=== PATIENT | female | born 1955 | race Caucasian/White ===

== ENCOUNTER 2020-03-07 15:42 | Emergency (ER) | payer OTHER, SELFPAY ==
--- NOTE | ~2020-03-07 | XR_ITS ---
EXAMINATION: XR ribs RT 2V EXAM DATE: 03/07/2020 16:47 INDICATION: Initial encounter following injury, with pain of the right ribs. TECHNIQUE: Frontal projection of the upper right ribs, frontal projection of the lower right ribs, ob lique projection of the right ribs, without chest x-ray(s) for interpretation. There is no prior theo dy for comparison. FINDINGS: There are no displaced acute right rib fractures identified. There is no soft tissue abno rmality seen. Consider educating patient that even if there is a radiographically occult nondisplac ed rib fracture, there is no specific treatment other than to refrain from activity that prevents hea ling. IMPRESSION: No displaced right rib fractures. Reviewed, dictated and finalized at location A.
--- NOTE | ~2020-03-07 | XR_ITS ---
CORRECTED REPORT PROCEDURE DESCRIPTION CORRECTED. SEE BOLD ITALIC TEXT BELOW. INDICATION CORRECTED TO RIGHT RIB PAIN. [XR ribs LT w PA/LAT CXR ] INDICATION: Right rib pain TECHNIQUE: Frontal projection of the upper left ribs, frontal projection of the lower left ribs, oblique projection of all the left ribs, frontal inspiratory chest x-ray for interpretation. FINDINGS: There are no displaced rib fractures identified. There are no soft tissue abnormality seen. The lungs are clear. IMPRESSION: 1:No displaced rib fractures. Reviewed, dictated and finalized at location A. MTDD
[2020-03-07 15:55] VITALS: BP 107/70; PULSE 64; RESP 18; TEMP 36.8; O2SAT 100
--- NOTE | 2020-03-07 16:02 | ED.GENADULT ---
HPI - General Adult General Chief complaint: Fall Stated complaint: fall Time Seen by Provider: 03/07/20 16:02 Source: RN notes reviewed Mode of arrival: ambulatory Limitations: no limitations History of Present Illness HPI narrative: This is a 64 years old female presented office for evaluation of right side rib pain. She fell 5 days ago while playing with her grand daughter onto the hardwood floor. She landed on her right knee and side of her chest. She states her pain good the day after the injury; however it came back yesterday and worse today. Denies head injury. Her right knee injury felt normal right now. She reports that her ribs pain is worse with deep breath or touching or moving her right arm. She has essential tremors in her upper extremities without history of Parkinson. No treatment prior to arrival because she was told by her doctor; not to take any medication [id number] because she is currently on a lot of medications at home. Related Data Home Medications Medication Instructions Recorded Confirmed atorvastatin [Lipitor] 20 mg PO DAILY 03/07/20 03/07/20 bismuth subsalicylate 524 mg PO QID 03/07/20 03/07/20 [Anti-Diarrheal] calcium polycarbophil [Fiber 1,250 mg PO BID 03/07/20 03/07/20 Laxative (ca polycarbo)] cetirizine-pseudoephedrine 1 tablet PO DAILY 03/07/20 03/07/20 fluticasone propionate [Flonase 1 spray INTRANASAL BID 03/07/20 03/07/20 Allergy Relief] gabapentin [Neurontin] 100 mg PO TID 03/07/20 03/07/20 lamotrigine [Lamictal] 150 mg PO BID 03/07/20 03/07/20 lithium carbonate [Lithobid] 300 mg PO DAILY 03/07/20 03/07/20 metformin [Glucophage XR] 500 mg PO DAILY 03/07/20 03/07/20 xfghoayjjeui-snv-qqcx-FA-vit K 1 tablet PO DAILY 03/07/20 03/07/20 [Adults Multivitamin] primidone 50 mg PO BID 03/07/20 03/07/20 propranolol [Inderal LA] 120 mg PO DAILY 03/07/20 03/07/20 sertraline [Zoloft] 100 mg PO DAILY 03/07/20 03/07/20 sumatriptan succinate [Imitrex] 100 mg PO ONCE 03/07/20 03/07/20 thiamine HCl (vitamin B1) 100 mg PO DAILY 03/07/20 03/07/20 trazodone 50 mg PO HS 03/07/20 03/07/20 Allergies Allergy/AdvReac Type Severity Reaction Status Date / Time Penicillins Allergy Unknown Unknown Verified 03/07/20 16:06 Sulfa (Sulfonamide Allergy Unknown Rash Verified 03/07/20 16:06 Antibiotics) Review of Systems Review of Systems: Narrative: CONSTITUTIONAL: Denies feeling ill ENT: Denies congestion CARDIOVASCULAR: Denies chest pain at rest RESPIRATORY: Reports pain with deep breathe. GASTROINTESTINAL: Denies abdominal pain, nausea, vomiting SKIN: Denies skin tears/bruising MUSCULOSKELETAL: Reports right side chest pain with deep breathing or moving her right arm NEUROLOGIC: Denies head injury PMFSH Past Medical History Medical History (Updated 03/07/20 @ 16:16 by FREDI Rey) Bipolar depression History of alcohol abuse HLD (hyperlipidemia) Tremor hands Social History Social History Gender identity (if verbalized by the patient): Female Comments At time of signature, I agree with nursing past medical, surgical, social and family history. There is no relevant family history pertinent to the presenting complaint. Exam Narrative: Exam Narrative: GENERAL: This is a well-nourished, well-developed patient, in no apparent distress. CARDIOVASCULAR: Regular rate and rhythm without murmurs, gallops, or rubs. Right lateral mid axillary, nipple region noted tenderness with palpation without obvious bruising. Skin intact. RESPIRATORY: Clear to auscultation. Breath sounds equal bilaterally. No wheezes, rales, or rhonchi. SKIN: warm, intact with no suspicious lesions or rash, good texture and turgor. NEURO: awake, alert, and oriented to person, place and time. There were no obvious focal neurologic abnormalities. Steady gait EXTREMITIES: Upper and lower extremities with normal ROM. Tremors noted in upper extremities even at
== END 2020-03-07 17:05 | disposition home or self-care (01) ==
PROVIDERS: Emergency Provider Nurse Practitioner; PCP Internal Medicine Infectious Disease
DX: S29.9XXA Unspecified injury of thorax, initial encounter (principal); F31.9 Bipolar disorder, unspecified; E78.5 Hyperlipidemia, unspecified; Z79.84 Long term (current) use of oral hypoglycemic drugs; W19.XXXA Unspecified fall, initial encounter
CPT/HCPCS: 71046; 71100; 99213; G0463

== ENCOUNTER 2020-08-03 13:04 | Emergency (ER) | payer MEDICAID, SELFPAY ==
--- NOTE | 2020-08-03 13:26 | ED.GENADULT ---
HPI - General Adult General Chief complaint: Upper Respiratory Infection Stated complaint: Cough,Congestion Time Seen by Provider: 08/03/20 13:26 Source: patient and RN notes reviewed Mode of arrival: ambulatory Limitations: no limitations History of Present Illness HPI narrative: 65-year-old female presents with complaints of upper respiratory infection, some facial congestion, facial pressure, head congestion, and intermittent headache (not the worst of her life) for the past 5 days. Sheri says symptoms has increased over the past 2-3 days with dry cough. Ibuprofen, NyQuil, and Zyrtec-D with little relief. No facial swelling. Dry cough without chest congestion. Nasal congestion and rhinorrhea. No high fevers, drooling, neck or throat swelling. No voice change. Denies chills, dyspnea, difficulty swallowing, jaw pain, dental pain, foreign body sensation, and rash. Tolerating liquids well. No chest pain or shortness of breath. The patient reports she have not been diagnosed with COVID-19. The patient reports she is not waiting for the results of a COVID-19 lab test. The patient reports she do not have fever, weakness, or fatigue. The patient reports she do not have a worsening cough or shortness of breath. The patient reports she do not have any sore throat, loss of taste, nausea, vomiting, abdominal pain, and diarrhea. Denies recent traveling. Denies concerns for COVID-19 or exposures been home with limited outdoor exposure except for essential household needs and return home. At this time, patient is not suspected of having COVID-19. Some parts of this dictation were generated by voice recognition software and may contain typographical and/or grammatical inaccuracies. Related Data Home Medications Medication Instructions Recorded Confirmed atorvastatin [Lipitor] 20 mg PO DAILY 03/07/20 08/03/20 bismuth subsalicylate 524 mg PO QID 03/07/20 08/03/20 [Anti-Diarrheal] calcium polycarbophil [Fiber 1,250 mg PO BID 03/07/20 08/03/20 Laxative (ca polycarbo)] fluticasone propionate [Flonase 1 spray INTRANASAL BID 03/07/20 03/07/20 Allergy Relief] gabapentin [Neurontin] 100 mg PO TID 03/07/20 03/07/20 lamotrigine [Lamictal] 150 mg PO BID 03/07/20 08/03/20 lithium carbonate [Lithobid] 300 mg PO DAILY 03/07/20 03/07/20 bvzgtukptnzs-xly-glfo-FA-vit K 1 tablet PO DAILY 03/07/20 03/07/20 [Adults Multivitamin] primidone 50 mg PO BID 03/07/20 03/07/20 propranolol [Inderal LA] 120 mg PO DAILY 03/07/20 03/07/20 sertraline [Zoloft] 100 mg PO DAILY 03/07/20 03/07/20 sumatriptan succinate [Imitrex] 100 mg PO ONCE 03/07/20 03/07/20 thiamine HCl (vitamin B1) 100 mg PO DAILY 03/07/20 03/07/20 trazodone 50 mg PO HS 03/07/20 03/07/20 Allergies Allergy/AdvReac Type Severity Reaction Status Date / Time Penicillins Allergy Unknown Unknown Verified 08/03/20 13:22 Sulfa (Sulfonamide Allergy Unknown Rash Verified 08/03/20 13:22 Antibiotics) Review of Systems Review of Systems: Narrative: CONSTITUTIONAL: Denies fever, chills, sweats. EYES: Denies visual changes, redness, discharge. ENT: Complains of rhinorrhea, congestion, facial congestion and pressure. Denies otalgia, sore throat. CARDIOVASCULAR: Denies chest pain, palpitations, edema. RESPIRATORY: Denies dyspnea, wheezing. Complains of dry cough. GASTROINTESTINAL: Denies abdominal pain, nausea, vomiting, diarrhea. GENITOURINARY: Denies dysuria, hematuria, abnormal discharge SKIN: Denies rash or itching. MUSCULOSKELETAL: Denies acute back pain, joint pain, or myalgia. NEUROLOGIC: Denies numbness, or focal weakness. Complains of intermittent PALMA. PSYCHIATRIC: Denies anxiety or depression. All other systems reviewed & are unremarkable except as noted in HPI and below. [facility] Past Medical History Medical History (Updated 08/03/20 @ 13:50 by FREDI Degroot) Anxiety Bipolar depression Bipolar disorder Depression Diabetes History of alcohol abuse Sober for 9 ye
[2020-08-03 13:31] VITALS: BP 122/86; PULSE 89; RESP 21; TEMP 36.6; O2SAT 98
== END 2020-08-03 13:47 | disposition home or self-care (01) ==
PROVIDERS: Emergency Provider Nurse Practitioner Family; PCP Internal Medicine Infectious Disease
DX: J01.90 Acute sinusitis, unspecified (principal); Z20.828 Contact with and (suspected) exposure to other viral communicable diseases; Z87.891 Personal history of nicotine dependence; E11.9 Type 2 diabetes mellitus without complications; E78.5 Hyperlipidemia, unspecified; F41.9 Anxiety disorder, unspecified; F31.9 Bipolar disorder, unspecified
CPT/HCPCS: 99213; G0463

== ENCOUNTER 2020-08-17 06:55 | Outpatient (NON) | payer MEDICAID, SELFPAY ==
[2020-08-18 01:31] LABS: SARS-CoV-2 RNA PCR Negative
== END 2020-08-17 06:56 ==
PROVIDERS: PCP Internal Medicine Infectious Disease; Visit Provider Nurse Practitioner Family
DX: J01.90 Acute sinusitis, unspecified (principal); Z20.828 Contact with and (suspected) exposure to other viral communicable diseases
CPT/HCPCS: 87635; C9803; U0003

== ENCOUNTER 2020-10-06 12:14 | Emergency (ER) | payer MEDICAID, SELFPAY ==
[2020-10-06 12:16] VITALS: BP 119/79; PULSE 68; RESP 16; TEMP 36.4; O2SAT 99
--- NOTE | 2020-10-06 14:19 | PC.NURSE ---
Pt states her headache is beginning to feel better and she's going to go home. States will return if worsneing sxs.
== END 2020-10-06 14:19 | disposition left against medical advice (07) ==
PROVIDERS: PCP Internal Medicine Infectious Disease
DX: G43.909 Migraine, unspecified, not intractable, without status migrainosus (principal)
CPT/HCPCS: 99199

== ENCOUNTER 2021-03-22 14:23 | Emergency (ER) | payer MEDICAID, SELFPAY ==
[2021-03-22 14:32] VITALS: BP 94/62; PULSE 75; RESP 20; TEMP 36.9; O2SAT 100
--- NOTE | 2021-03-22 14:40 | ED.GENADULT ---
HPI - General Adult General Chief complaint: Urogenital-Female Stated complaint: uti Time Seen by Provider: 03/22/21 14:41 Source: patient and RN notes reviewed Mode of arrival: ambulatory Limitations: no limitations History of Present Illness HPI narrative: 65-year-old female presents with urinary complaints for the past 3 days. Sheri reports increasing symptoms over the past 24 hours. Dysuria consist of burning, frequency, and urgency. Increasing water and cranberry intake without relief. Denies fever or chills. No significant pelvic pain. No vaginal discharge.? No concerns for STDs. Exacerbating factors urinating.? Denies hematuria or vaginal bleeding. LMP post menopausal.? No flank pain. Denies nausea, vomiting, and abdominal pain.? Tolerating liquids well.? Remains active. The patient reports she has not been diagnosed with COVID-19.? The patient reports receiving [facility] COVID-19 vaccine. The patient reports she is not waiting for the results of a COVID-19 lab test.? The patient reports she does not have weakness or fatigue.? The patient reports she does not have a new or worsening cough or shortness of breath.? Denies chest pain.? The patient reports she does not have any rhinorrhea, congestion, sore throat, loss of taste or smell, and diarrhea. Denies recent traveling.? Denies concerns for COVID-19 or exposures.? At this time, the patient is not suspected of having COVID-19. Some parts of this dictation were generated by voice recognition software and may contain typographical and/or grammatical inaccuracies. Related Data Home Medications Medication Instructions Recorded Confirmed atorvastatin [Lipitor] 20 mg PO DAILY 03/07/20 08/03/20 bismuth subsalicylate 524 mg PO QID 03/07/20 08/03/20 [Anti-Diarrheal] calcium polycarbophil [Fiber 1,250 mg PO BID 03/07/20 08/03/20 Laxative (ca polycarbo)] fluticasone propionate [Flonase 1 spray INTRANASAL BID 03/07/20 03/07/20 Allergy Relief] gabapentin [Neurontin] 100 mg PO TID 03/07/20 03/07/20 lamotrigine [Lamictal] 150 mg PO BID 03/07/20 08/03/20 lithium carbonate [Lithobid] 300 mg PO DAILY 03/07/20 03/07/20 azkolcgmpamh-pid-[id number]-FA-vit K 1 tablet PO DAILY 03/07/20 03/07/20 [Adults Multivitamin] primidone 50 mg PO BID 03/07/20 03/07/20 propranolol [Inderal LA] 120 mg PO DAILY 03/07/20 03/07/20 sertraline [Zoloft] 100 mg PO DAILY 03/07/20 03/07/20 sumatriptan succinate [Imitrex] 100 mg PO ONCE 03/07/20 03/07/20 thiamine HCl (vitamin B1) 100 mg PO DAILY 03/07/20 03/07/20 trazodone 50 mg PO HS 03/07/20 03/07/20 leflunomide mg 03/22/21 Allergies Allergy/AdvReac Type Severity Reaction Status Date / Time Penicillins Allergy Unknown Unknown Verified 10/06/20 12:21 Sulfa (Sulfonamide Allergy Unknown Rash Verified 10/06/20 12:21 Antibiotics) Review of Systems Review of Systems: Narrative: CONSTITUTIONAL: Denies fever, chills, sweats. EYES: Denies visual changes, redness, discharge. ENT: Denies rhinorrhea, congestion, sore throat, otalgia. CARDIOVASCULAR: Denies chest pain, palpitations, edema. RESPIRATORY: Denies dyspnea, wheezing, cough. GASTROINTESTINAL: Denies abdominal pain, nausea, vomiting, diarrhea. GENITOURINARY: Complains of dysuria (burning, frequency, and urgency). Denies hematuria, abnormal discharge. SKIN: Denies rash or itching. MUSCULOSKELETAL: Denies acute back pain, joint pain, or myalgia. NEUROLOGIC: Denies numbness or focal weakness. PSYCHIATRIC: Denies anxiety or depression. All systems reviewed & are unremarkable except as noted in HPI and below. [facility] Past Medical History Medical History Anxiety Bipolar depression Bipolar disorder Depression Diabetes History of alcohol abuse Sober for 9 years HLD (hyperlipidemia) Hx of migraines Menopause Tremor hands Surgical History Surgical History History of foot
== END 2021-03-22 14:53 | disposition home or self-care (01) ==
PROVIDERS: Emergency Provider Nurse Practitioner Family; PCP Internal Medicine Infectious Disease
DX: R30.0 Dysuria (principal); Z87.891 Personal history of nicotine dependence; E11.9 Type 2 diabetes mellitus without complications; E78.5 Hyperlipidemia, unspecified; F31.9 Bipolar disorder, unspecified; F41.9 Anxiety disorder, unspecified
CPT/HCPCS: 81003; 87077; 87086; 87088; 87186; 99213; G0463

== ENCOUNTER 2021-04-18 15:18 | Outpatient (CLI) | payer MEDICAID, SELFPAY ==
--- NOTE | ~2021-04-18 | MM_ITS ---
EXAMINATION: MM screening armand BI w salome HISTORY: Screening mammogram TECHNIQUE: Craniocaudal and mediolateral oblique 3-D tomosynthesis images were obtained and synthetic 2-D images were generated. CAD analysis was submitted and interpreted. COMPARISON: 06/02/2018 BREAST PARENCHYMAL COMPOSITION: The breasts are heterogeneously dense, which may obscure small masses . FINDINGS: There is no evidence of suspicious mass, calcification, or architectural distortion to sugg est malignancy in either breast. There has been no suspicious interval change. IMPRESSION: 1. No mammographic evidence of malignancy. 2. Recommend routine screening mammography in one year. BI-RADS Category 1: Negative Reviewed, dictated and finalized at location A.
== END 2021-04-18 15:19 | disposition home or self-care (01) ==
LOC: ANHIMG 15:21
PROVIDERS: PCP Internal Medicine Infectious Disease; Visit Provider Internal Medicine Infectious Disease
DX: Z12.31 Encounter for screening mammogram for malignant neoplasm of breast (principal)
CPT/HCPCS: 77063; 77067

== ENCOUNTER 2021-05-01 09:45 | Emergency (ER) | payer MEDICAID, SELFPAY ==
[2021-05-01 09:56] VITALS: BP 118/82; PULSE 67; RESP 16; TEMP 36.4; O2SAT 99
--- NOTE | 2021-05-01 10:02 | ED.FEMALEGU ---
HPI - Female Genitourinary General Chief complaint: Urogenital-Female Stated complaint: uti History of Present Illness HPI Narrative: This is a 65-year-old female comes in complaining of urinary frequency and urgency that started yesterday patient states she has had 4 UTIs since 3 months ago. Patient states she started drinking plenty of fluids and she is taking cranberry juice. Patient states she cannot take the pain with urination. Patient denies any nausea vomiting diarrhea and/or fever Related Data Home Medications Medication Instructions Recorded Confirmed atorvastatin 1 mg PO DAILY 05/01/21 05/01/21 divalproex 1 mg PO HS 05/01/21 05/01/21 gabapentin 2 mg PO HS 05/01/21 05/01/21 lamotrigine 1 mg PO BID 05/01/21 05/01/21 leflunomide 1 mg PO DAILY 05/01/21 05/01/21 metformin 1 mg PO BID 05/01/21 05/01/21 primidone 4 mg PO BID 05/01/21 05/01/21 propranolol 1 mg PO DIRECTED 05/01/21 05/01/21 sertraline 1 mg PO DIRECTED 05/01/21 05/01/21 Allergies Allergy/AdvReac Type Severity Reaction Status Date / Time Penicillins Allergy Unknown Swelling Verified 05/01/21 10:08 Sulfa (Sulfonamide Allergy Unknown Rash Verified 05/01/21 10:08 Antibiotics) Review of Systems Review of Systems: Narrative: CONSTITUTIONAL: Denies fever, chills, or sweats. EYES: Denies visual changes, redness, or discharge. ENT: Denies rhinorrhea, congestion, sore throat, or otalgia. CARDIOVASCULAR:Denies chest pain, palpitations, or edema. RESPIRATORY: Denies cough or dyspnea. GASTROINTESTINAL: Denies abdominal pain, nausea, vomiting, or diarrhea. GENITOURINARY: Reports dysuria or hematuria. SKIN:[Denies rash or itching. MUSCULOSKELETAL:Denies back pain, joint pain, or myalgia. NEUROLOGIC: Denies headache, numbness, or weakness. PSYCHIATRIC:Denies anxiety or depression PMFSH Past Medical History Medical History Anxiety Bipolar depression Bipolar disorder Depression Diabetes History of alcohol abuse Sober for 9 years HLD (hyperlipidemia) Hx of migraines Menopause Tremor hands Surgical History Surgical History History of foot surgery Right x2 History of hand surgery Left History of tonsillectomy Family History Family History Father , Data 97 related to pneumonia Alzheimers disease Mother , Related to fall, Heart disease Social History Social History Smoking status: Former smoker Tobacco type: cigarettes Second hand tobacco smoke exposure: No Smoking end date: 10/12/96 Alcohol intake: former Substance use: never Additional occupation/education comments: Disable Gender identity (if verbalized by the patient): Female Comments At time as signature, I have reviewed and agree with nursing past medical, social, surgical and family history. Please see nursing chart for further information. There is no relevant family history pertinent to the presenting complaint. Exam Narrative: Exam Narrative: GENERAL:Well-appearing, well-nourished, and in no acute distress. HEAD:Normocephalic, atraumatic. EYES: PERRLA and EOMI. ENT: Nares clear, no rhinorrhea or epistaxis. Mucous membranes moist. NECK: Supple. CHEST: Clear to auscultation. No respiratory distress. HEART: Regular rate and rhythm. No murmur heard. Normal peripheral pulses. ABDOMEN: Soft, nontender, nondistended, normal active bowel sounds. Frequency, urgency, dysuria EXTREMITIES: Normal range of motion. No edema. SKIN: Warm, dry, no rash. NEURO: No focal deficits. Alert and oriented x3. Course [employer]/PA Physician Supervision Discussed with patient about drinking plenty of fluids may consider taking some cranberry pills. Explained about urinate immediately after intercourse watching what she drinks a
== END 2021-05-01 10:42 | disposition home or self-care (01) ==
PROVIDERS: Emergency Provider Nurse Practitioner Family; PCP Internal Medicine Infectious Disease
DX: N39.0 Urinary tract infection, site not specified (principal); Z87.891 Personal history of nicotine dependence; E11.9 Type 2 diabetes mellitus without complications; E78.5 Hyperlipidemia, unspecified; R25.1 Tremor, unspecified; F31.9 Bipolar disorder, unspecified; F41.9 Anxiety disorder, unspecified
CPT/HCPCS: 81003; 87086; 87088; 99213; G0463

== ENCOUNTER 2021-09-13 10:00 | Outpatient (RCR) | payer MEDICAID, SELFPAY ==
--- NOTE | 2021-08-27 14:14 | OTOPEVAL ---
OCCUPATIONAL THERAPY INITIAL EVALUATION REPORT 08/27/21 Thank you for referring Sheri Shni to [facility].? The patient is scheduled to be seen for therapy? 1x/week for 4 weeks. Please review, sign, date and return this plan of care JAYLAN. I agree with and certify that the following plan of care is medically necessary. Referring Physician Date Referring Provider: Marialuisa Franklin NP *OT Outpatient Evaluation Start: 08/27/21 12:49 Therapy Assessment Status Assessment Status Assessment Status Evaluation Outpatient Past Medical History Neurological History Hx Migraine Yes Hx Other Neurological Disorders Yes: essential tremors Cardiovascular History Hx Hypercholesterolemia Yes Respiratory History Hx Respiratory Disorders No Significant History Gastrointestinal History Hx Other Gastrointestinal Disorders Yes: frequent diarrhea Genitourinary History Hx Urinary Tract Infection Yes Musculoskeletal History Hx Arthritis Yes: RA Hx Orthopedic Surgery Yes: rt foot, lt hand Hx Other Musculoskeletal Disorders Yes: fall risk due to tremors Hematological History Hx Hematological Disorders No Significant History Endocrine History Hx Diabetes Yes: DM2 HEENT History Hx Cataracts Yes: right eye Integumentary History Hx Skin Disorders No Significant History Reproductive History Hx Post Menopausal Yes Psychosocial History Hx Anxiety Yes Hx Bipolar Disorder Yes Hx Depression Yes Hx Other Psychiatric Disorders Yes: 03/03/2020 reports she is a recovering alcoholic Pain History History of Any Previous or Ongoing No Significant History Instance of Pain Anesthesia History Hx Anesthesia Reactions No Significant History Evaluation Information Problem Diagnosis RA Additional Evaluation Detail OT orders for hand splints for RA Subjective Information Patient reports that her hands Query Text:As Reported By Patient/ are at their worst in the Family morning, but when she gets moving they feel better. She reports no pain walking in today, just some discomfort across the MCP joints of bilateral hands. Functionally she reports difficulties with fine motor tasks, but she states that this may be attributed to her essential tremor. Prior Level of Function Activity Level (Last 3 Months) Hand Dominance Right Activity of Daily Living Ability Independent Indoor/Home Mobility Independ
--- NOTE | 2021-09-04 14:28 | PCOTNOTE ---
Patient did not show up for scheduled appointment this date. Called patient who reported she forgot. Reminded her of her next appt.
--- NOTE | 2021-09-23 13:20 | PCOTNOTE ---
OCCUPATIONAL THERAPY DISCHARGE NOTIFICATION 09/23/2021 Patient:Sheri Shin Date of :1955 Patient has not returned for any further treatments since 09/13/2021, therefore she will be discharged at this time. Patient?s initial visit was on 08/27/2021 and she had a total of 2 visits. Neoprene ulnar drift splints were fabricated for bilateral hand and she has been instructed in ROM HEP. Thank you for referring this patient to [facility]. Please review, sign, date and return this discharge summary JAYLAN. I have been updated about the patient's current status and I agree with discharge from the above service at this time. Referring Physician Date Referring Provider: Marialuisa Franklin NP
== END 2021-09-24 12:21 | disposition home or self-care (01) ==
LOC: ANHOT 10:00
PROVIDERS: PCP Internal Medicine Infectious Disease
DX: M06.09 Rheumatoid arthritis without rheumatoid factor, multiple sites (principal)
CPT/HCPCS: 97018; 97110; 97140; 97165; 97530; L3919

== ENCOUNTER 2021-12-08 16:22 | Emergency (ER) | payer MEDICAID, SELFPAY ==
--- NOTE | ~2021-12-08 | XR_ITS ---
EXAMINATION: XR hand LT min 3V INDICATION: Left hand TECHNIQUE: Three views of the left hand are obtained. COMPARISON: 07/10/2016 FINDINGS: Bone alignment is normal. There is no fracture. There is mild osteoarthritis of multiple in terphalangeal joints. Chronic deformity in the tuft of the third distal phalanx likely reflects prior injury. There is mild medial soft tissue swelling near the distal ulna. IMPRESSION: 1. No acute osseous abnormality. Reviewed, dictated and finalized at location F. [employer]
--- NOTE | 2021-12-08 16:26 | ED.UPPEXIN ---
HPI - Extremity Injury (Upper) General Chief Complaint: Extremity Injury, Upper Stated Complaint: left hand pain Source: patient, family, RN notes reviewed and old records reviewed Mode of arrival: ambulatory Limitations: no limitations History of Present Illness HPI narrative: 66 yo female presents to the [facility] with complaints of left hand post FOOSH injury last night. Tenderness along the third fourth and fifth metacarpal. Patient has a history of tremors. Capillary refill under 2 seconds.'s no snuffbox tenderness. Has full range of motion. Mild swelling noted to the dorsal aspect left hand patient states that she slipped on ice landed on her left arm which was outstretched and her butt. No longer has back pain, states that her tailbone was sore last night but not this morning. MD complaint: injury to: left and hand Related Data Home Medications Medication Instructions Recorded Confirmed atorvastatin 1 mg PO DAILY 05/01/21 05/01/21 divalproex 1 mg PO HS 05/01/21 05/01/21 gabapentin 2 mg PO HS 05/01/21 05/01/21 lamotrigine 1 mg PO BID 05/01/21 05/01/21 leflunomide 1 mg PO DAILY 05/01/21 05/01/21 metformin 1 mg PO BID 05/01/21 05/01/21 primidone 4 mg PO BID 05/01/21 05/01/21 propranolol 1 mg PO DIRECTED 05/01/21 05/01/21 sertraline 1 mg PO DIRECTED 05/01/21 05/01/21 clonazepam 12/08/21 loratadine mg 12/08/21 sumatriptan succinate mg PO 12/08/21 Allergies Allergy/AdvReac Type Severity Reaction Status Date / Time Penicillins Allergy Unknown Swelling Verified 08/12/21 08:46 Sulfa (Sulfonamide Allergy Unknown Rash Verified 08/12/21 08:46 Antibiotics) Review of Systems Review of Systems: All systems reviewed & are unremarkable except as noted in HPI and below Constitutional: Constitutional: Reports no additional constitutional complaints, Denies chills, Denies fever(s), Denies headache(s) and Denies weakness Eyes: Eyes: Reports no additional eye complaints ENT: Reports system reviewed and no additional complaints, except as documented, Denies vertigo, Denies dizziness and Denies headache(s) Cardiovascular: Cardiovascular: Reports no additional cardiovascular complaints, Denies chest pain, Denies syncope and Denies dyspnea Respiratory: Respiratory: Reports no additional respiratory complaints, Denies cough and Denies dyspnea Gastrointestinal: Gastrointestinal: Reports no additional gastrointestinal complaints, Denies abdominal pain, Denies nausea and Denies vomiting Musculoskeletal: Musculoskeletal: Reports as per HPI, Reports arthralgias (Left dorsal hand, third fourth and fifth metacarpal), Denies joint swelling and Denies numbness Integumentary/Breasts: Skin/Breast: Reports system reviewed and no additional complaints, except as docu Neurologic: Reports system reviewed and no additional complaints, except as documented, Denies confusion, Denies vertigo, Denies dizziness, Denies syncope, Denies headache(s), Denies focal weakness, Denies numbness and Denies weakness Psychiatric: Psychiatric: Reports no additional psychiatric complaints and Denies confusion Allergic/Immunologic: Allergic/Immunologic: Reports no additional allergic/immunologic complaints PMFSH Past Medical History Medical History Anxiety Bipolar depression Bipolar disorder Depression Diabetes History of alcohol abuse Sober for 9 years HLD (hyperlipidemia) Hx of migraines Menopause Tremor hands Surgical History Surgical History History of foot surgery Right x2 History of hand surgery Left History of tonsillectomy Family History Family History Father , Data 97 related to pneumonia Alzheimers disease Mother , Related to fall, Heart disease Social History Social History Yoselin
[2021-12-08 16:29] VITALS: BP 107/69; PULSE 90; RESP 16; TEMP 36.7; O2SAT 99
[2021-12-08 16:35] VITALS: BP 107/69; PULSE 90; RESP 16; TEMP 36.7; O2SAT 99
== END 2021-12-08 17:04 | disposition home or self-care (01) ==
PROVIDERS: Emergency Provider Nurse Practitioner; PCP Internal Medicine Infectious Disease
DX: S60.212A Contusion of left wrist, initial encounter (principal); W19.XXXA Unspecified fall, initial encounter; E11.9 Type 2 diabetes mellitus without complications; E78.5 Hyperlipidemia, unspecified; F41.9 Anxiety disorder, unspecified; F31.9 Bipolar disorder, unspecified
CPT/HCPCS: 73130; 99213; G0463

== ENCOUNTER 2022-08-23 09:18 | Emergency (ER) | payer MEDICARE, MEDICAID, SELFPAY ==
--- NOTE | ~2022-08-23 | XR_ITS ---
EXAMINATION: XR chest 1V portable INDICATION: Cough and shortness of breath TECHNIQUE: Portable AP chest at 1031 hours COMPARISON: 03/07/2020 FINDINGS: The lungs are free of acute opacities. No pleural effusion or pneumothorax. The cardiomedia stinal silhouette is normal. An electronic device is implanted in the right chest wall with its lead coursing beyond the superior margin of the radiograph. IMPRESSION: 1. No acute cardiopulmonary abnormality. Reviewed, dictated and finalized at location A. SKINNER
[2022-08-23 09:11] VITALS: BP 130/85; PULSE 92; RESP 18; TEMP 37.1; O2SAT 99
[2022-08-23] MEDS: MORPHINE SULFATE (*CRX) 4 MG/ML INJ IV PUSH (09:57)
[2022-08-23] MEDS: SODIUM CHLORIDE 0.9% IV 1,000 ML 999 ML IV CONT (09:57)
[2022-08-23] MEDS: ONDANSETRON INJ 4 MG/2 ML VIAL IV PUSH (09:57)
[2022-08-23 10:06] LABS: Basophils Absolute Auto 0.1 K/mm3 (0.0-0.1); Basophils Percent Auto 1.2 % (0.2-1.2); Eosinophils Percent Auto 0.7 % (0-4.4); Hematocrit 40.6 % (37.0-47.0); Hemoglobin 13.5 g/dL (12.0-15.0); Immature Granulocyte Absolute 0.01 K/mm3 (0.00-0.031); Immature Granulocyte Percent A 0.2 % (0-0.5); Lymphocytes Percent Auto 5.2 % (18.3-44.2); Mean Corpuscular HGB Conc 33.3 g/dl (32-36); Mean Corpuscular Hemoglobin 32.4 pg (26-34); Mean Corpuscular Volume 97.4 fl (80-100); Mean Platelet Volume 8.9 fl (7.4-10.4); Monocytes Absolute Auto 0.8 K/mm3 (0.1-0.6); Monocytes Percent Auto 13.5 % (2.6-8.5); Neutrophils Absolute Auto 4.5 K/mm3 (1.3-6.7); Neutrophils Percent Auto 79.2 % (45.5-73.1); Platelet Count Result 178 k/mm3 (150-375); Red Blood Count 4.17 M/mm3 (4.2-5.4); Red Cell Distribution Width 12.9 % (11.5-14.5); White Blood Count 5.7 K/mm3 (4.5-10.0)
[2022-08-23 10:20] LABS: Anion Gap 11 mmol/L (8-16); Blood Urea Nitrogen 15 mg/dL (7-17); Calcium 8.8 mg/dL (8.4-10.2); Carbon Dioxide 30 mmol/L (22-30); Chloride 95 mmol/L (98-107); Estimated CRCL calculation 59 ml/min; Estimated Glomerular Filt Rate > 60; Glucose 122 mg/dL (65-110); Potassium 3.9 mmol/L (3.4-5.0); Sodium 136 mmol/L (137-145)
[2022-08-23 10:42] LABS: Influenza A QL RT-PCR Positive (Negative); Influenza B QL RT-PCR Negative (Negative); SARS-CoV-2 RNA PCR Negative
[2022-08-23 11:23] VITALS: BP 131/81; PULSE 82; RESP 18; O2SAT 98
--- NOTE | 2022-08-23 11:51 | ED.HA ---
HPI - Headache General Chief Complaint: Headache Stated Complaint: URI X 2 DAYS Time Seen by Provider: 08/23/22 09:24 History of Present Illness HPI Narrative: Patient is a 67-year-old female who presents ER with illness and headache. Patient has history of glioblastoma and is supposed to undergo a second surgery this week. She began feeling unwell a couple days ago and began having fever yesterday. She has had throbbing headache. She cannot sleep last night because of the headache so she came in today. She has some runny nose with cough. No chest pain or chest pressure. No new numbness or weakness. Patient has tried migraine abortive therapy as well as Tylenol and ibuprofen without improvement. Related Data Home Medications Medication Instructions Recorded Confirmed atorvastatin 20 mg tablet 1 mg PO DAILY 05/01/21 05/01/21 divalproex 250 mg tablet,extended 1 mg PO HS 05/01/21 05/01/21 release 24 hr gabapentin 100 mg capsule 2 mg PO HS 05/01/21 05/01/21 lamotrigine 200 mg tablet 1 mg PO BID 05/01/21 05/01/21 leflunomide 10 mg tablet 1 mg PO DAILY 05/01/21 05/01/21 metformin 500 mg tablet 1 mg PO BID 05/01/21 05/01/21 primidone 50 mg tablet 4 mg PO BID 05/01/21 05/01/21 propranolol 120 mg capsule,24 1 mg PO DIRECTED 05/01/21 05/01/21 hr,extended release sertraline 100 mg tablet 1 mg PO DIRECTED 05/01/21 05/01/21 clonazepam 0.5 mg tablet 12/08/21 loratadine 10 mg tablet mg 12/08/21 sumatriptan succinate 100 mg tablet mg PO 12/08/21 Allergies Allergy/AdvReac Type Severity Reaction Status Date / Time Penicillins Allergy Unknown Swelling Verified 08/23/22 09:18 Sulfa (Sulfonamide Allergy Unknown Rash Verified 08/23/22 09:18 Antibiotics) Review of Systems Review of Systems: All systems reviewed & are unremarkable except as noted in HPI and below Constitutional: Constitutional: Reports chills, Reports fatigue and Reports fever(s) Eyes: Eyes: Denies change in vision ENT: Reports nasal congestion and Denies sore throat Cardiovascular: Cardiovascular: Denies chest pain, Denies rapid heart rate and Denies radiating jaw, neck or arm pain Respiratory: Respiratory: Reports cough, Denies dyspnea and Denies wheezing Gastrointestinal: Gastrointestinal: Denies abdominal pain, Denies nausea and Denies vomiting Neurologic: Denies syncope, Reports headache(s), Denies focal weakness and Denies numbness PMFSH Past Medical History Medical History Anxiety Bipolar depression Bipolar disorder Depression Diabetes History of alcohol abuse Sober for 9 years HLD (hyperlipidemia) Hx of migraines Menopause Tremor hands Surgical History Surgical History History of foot surgery Right x2 History of hand surgery Left History of tonsillectomy Family History Family History Father , Data 97 related to pneumonia Alzheimers disease Mother , Related to fall, Heart disease Social History Social History Smoking status: Former smoker Tobacco type: cigarettes Second hand tobacco smoke exposure: No Smoking end date: 10/12/96 Alcohol intake: former Substance use: never Additional occupation/education comments: Disable Gender identity (if verbalized by the patient): Female Exam Narrative: GENERAL: Well-appearing, well-nourished, and in no acute distress. HEAD: Normocephalic, atraumatic. EYES: PERRL and EOMI. ENT: Mucous membranes moist. NECK: Supple. CHEST: Clear to auscultation. No respiratory distress. HEART: Regular rate and rhythm. Normal peripheral pulses. EXTREMITIES: Normal range of motion. No edema. NEURO: Alert and oriented x3. PSYCH: Normal mood and affect. Course Course Emergency Course: Patient resting comfortably. Informed of
[2022-08-23 12:14] VITALS: BP 125/85; PULSE 80; RESP 18; O2SAT 98
== END 2022-08-23 12:15 | disposition home or self-care (01) ==
PROVIDERS: Emergency Provider Emergency Medicine; PCP Internal Medicine Infectious Disease
DX: J10.1 Influenza due to other identified influenza virus with other respiratory manifestations (principal); R51.9 Headache, unspecified; E78.5 Hyperlipidemia, unspecified; E11.9 Type 2 diabetes mellitus without complications; Z87.891 Personal history of nicotine dependence; Z20.822 Contact with and (suspected) exposure to COVID-19
CPT/HCPCS: 36415; 71045; 80048; 85025; 87636; 96361; 96374; 96375; 99284; J2270; J2405; J7030

== ENCOUNTER 2022-09-17 11:40 | Outpatient (CLI) | payer MEDICARE, MEDICAID, SELFPAY ==
--- NOTE | ~2022-09-17 | MM_ITS ---
EXAMINATION: MM screening armand BI w salome HISTORY: Screening mammogram TECHNIQUE: Craniocaudal and mediolateral oblique 3-D tomosynthesis images were obtained and synthetic 2-D images were generated. CAD analysis was submitted and interpreted. COMPARISON: 04/30/2021, 06/02/2018 BREAST PARENCHYMAL COMPOSITION: The breasts are extremely dense, which lowers the sensitivity of mamm ography. FINDINGS: RIGHT BREAST: No suspicious mass, calcification, or architectural distortion are identified to sugges t malignancy. There has been no suspicious interval change. LEFT BREAST: There is focal asymmetry in the posterior third of the outer breast. IMPRESSION: 1. Left breast focal asymmetry. 2. Additional mammographic views and possible breast ultrasound are recommended. BI-RADS Category 0: Incomplete: Needs additional imaging evaluation. Reviewed, dictated and finalized at location A. OM SEAMSTRESS IMPRESSION: 1. Left breast focal asymmetry. 2. Additional mammographic views and possible breast ultrasound are recommended . BI-RADS Category 0: Incomplete: Needs additional imaging evaluation.
== END 2022-09-17 11:41 | disposition home or self-care (01) ==
LOC: ANHIMG 11:42
PROVIDERS: PCP Internal Medicine Infectious Disease; Visit Provider Internal Medicine Infectious Disease
DX: Z12.31 Encounter for screening mammogram for malignant neoplasm of breast (principal); N64.89 Other specified disorders of breast
CPT/HCPCS: 77063; 77067

== ENCOUNTER 2022-09-22 16:18 | Emergency (ER) | payer MEDICARE, MEDICAID, SELFPAY ==
[2022-09-22 16:25] VITALS: BP 92/65; PULSE 80; RESP 18; TEMP 36.8; O2SAT 98
--- NOTE | 2022-09-22 16:25 | ED.EAR ---
HPI - Ear Problem General Chief complaint: Ear Stated complaint: Ears Irritation Time Seen by Provider: 09/22/22 16:25 Source: patient, RN notes reviewed and old records reviewed Mode of arrival: ambulatory Limitations: no limitations History of Present Illness HPI Narrative: 67-year-old female presents to the [facility] with bilateral ear irritation. Right ear started about a week ago left ear started about 3 days ago. Reports using Flonase daily, Claritin daily. Patient states that she always feels like she has fluid in her ears. Patient reports whenever she gets out shower she uses Q-tips to get the water out of her ears. Has not been working over the last couple of days. Related Data Home Medications Medication Instructions Recorded Confirmed atorvastatin 20 mg tablet 1 mg PO DAILY 05/01/21 09/22/22 divalproex 250 mg tablet,extended 1 mg PO HS 05/01/21 09/22/22 release 24 hr gabapentin 100 mg capsule 2 mg PO HS 05/01/21 09/22/22 lamotrigine 200 mg tablet 1 mg PO BID 05/01/21 09/22/22 leflunomide 10 mg tablet 1 mg PO DAILY 05/01/21 09/22/22 metformin 500 mg tablet 1 mg PO BID 05/01/21 09/22/22 primidone 50 mg tablet 4 mg PO BID 05/01/21 09/22/22 propranolol 120 mg capsule,24 1 mg PO DIRECTED 05/01/21 09/22/22 hr,extended release sertraline 100 mg tablet 1 mg PO DIRECTED 05/01/21 09/22/22 clonazepam 0.5 mg tablet 12/08/21 loratadine 10 mg tablet mg 12/08/21 sumatriptan succinate 100 mg tablet mg PO 12/08/21 Allergies Allergy/AdvReac Type Severity Reaction Status Date / Time Penicillins Allergy Unknown Swelling Verified 09/22/22 16:26 Sulfa (Sulfonamide Allergy Unknown Rash Verified 09/22/22 16:26 Antibiotics) Review of Systems Review of Systems: All systems reviewed & are unremarkable except as noted in HPI and below Constitutional: Constitutional: Reports no additional constitutional complaints Eyes: Eyes: Reports no additional eye complaints ENT: Reports as per HPI Cardiovascular: Cardiovascular: Reports no additional cardiovascular complaints, Denies chest pain and Denies dyspnea Respiratory: Respiratory: Reports no additional respiratory complaints, Denies chest congestion, Denies cough and Denies dyspnea Gastrointestinal: Gastrointestinal: Reports no additional gastrointestinal complaints, Denies abdominal pain, Denies nausea and Denies vomiting Musculoskeletal: Musculoskeletal: Reports no additional musculoskeletal complaints Integumentary/Breasts: Skin/Breast: Reports system reviewed and no additional complaints, except as docu Neurologic: Reports system reviewed and no additional complaints, except as documented Psychiatric: Psychiatric: Reports no additional psychiatric complaints Allergic/Immunologic: Allergic/Immunologic: Reports no additional allergic/immunologic complaints PMFSH Past Medical History Medical History Anxiety Bipolar depression Bipolar disorder Depression Diabetes History of alcohol abuse Sober for 9 years HLD (hyperlipidemia) Hx of migraines Menopause Tremor hands Surgical History Surgical History History of foot surgery Right x2 History of hand surgery Left History of tonsillectomy Family History Family History Father , Data 97 related to pneumonia Alzheimers disease Mother , Related to fall, Heart disease Social History Social History Smoking status: Former smoker Tobacco type: cigarettes Second hand tobacco smoke exposure: No Smoking end date: 10/12/96 Alcohol intake: former Substance use: never Additional occupation/education comments: Disable Gender identity (if verbalized by the patient): Female Comments At the time of my signature, I reviewed and agree with the eve
== END 2022-09-22 16:43 | disposition home or self-care (01) ==
PROVIDERS: Emergency Provider Nurse Practitioner; PCP Internal Medicine Infectious Disease
DX: H65.03 Acute serous otitis media, bilateral (principal); E11.9 Type 2 diabetes mellitus without complications; Z79.84 Long term (current) use of oral hypoglycemic drugs; Z87.891 Personal history of nicotine dependence
CPT/HCPCS: 99213; G0463

== ENCOUNTER 2022-10-08 11:56 | Outpatient (CLI) | payer MEDICARE, MEDICAID, SELFPAY ==
--- NOTE | ~2022-10-08 | MMUS_ITS ---
EXAMINATION: MM diagnostic armand LT w salome, US breast LT limited HISTORY: Focal asymmetry reported in posterior third of outer left breast on 09/17/2022 screening mamm ogram TECHNIQUE: Additional 3-D tomosynthesis images of the left breast were performed and synthetic 2-D im ages were generated. CAD analysis was submitted and interpreted. High resolution upper outer quadrant and lower outer quadrant left breast ultrasound was performed. COMPARISON: 09/17/2022 bilateral screening mammogram FINDINGS: MAMMOGRAPHIC FINDINGS: No suspicious mass or architectural distortion, malignant calcification, skin thickening or retractio n is evident. ULTRASOUND: No suspicious mass or suspicious shadowing is noted in the upper outer or lower outer quadrants of th e left breast. IMPRESSION: 1. No mammographic evidence of malignancy 2. Routine annual mammographic screening is recommended BI-RADS Category 1: Negative Reviewed, dictated and finalized at location A. N MACHINE OPERATOR IMPRESSION: 1. No mammographic evidence of malignancy 2. Routine annual mammographic screening is recommended BI-RADS Category 1: Negative
== END 2022-10-08 11:57 | disposition home or self-care (01) ==
LOC: ANHIMG 11:57
PROVIDERS: PCP Internal Medicine Infectious Disease; Visit Provider Internal Medicine Infectious Disease
DX: R92.8 Other abnormal and inconclusive findings on diagnostic imaging of breast (principal)
CPT/HCPCS: 76642; 77061; 77065; G0279

== ENCOUNTER 2022-11-16 12:02 | Emergency (ER) | payer MEDICARE, MEDICAID, SELFPAY ==
[2022-11-16 12:15] VITALS: BP 128/82; PULSE 84; RESP 18; TEMP 36.8; O2SAT 98
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
== END 2022-11-16 13:04 | disposition home or self-care (01) ==
PROVIDERS: Emergency Provider Nurse Practitioner Family; PCP Internal Medicine Infectious Disease
DX: S05.01XA Injury of conjunctiva and corneal abrasion without foreign body, right eye, initial encounter (principal); X58.XXXA Exposure to other specified factors, initial encounter; E11.9 Type 2 diabetes mellitus without complications; E78.5 Hyperlipidemia, unspecified; F31.9 Bipolar disorder, unspecified; F41.9 Anxiety disorder, unspecified
CPT/HCPCS: 99213; A9270; G0463

== ENCOUNTER 2022-12-10 11:00 | Outpatient (RCR) | payer MEDICARE, MEDICAID, SELFPAY ==
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
--- NOTE | 2022-12-04 09:11 | PCPTNOTE ---
Patient called & cancelled scheduled appointment this date due to not feeling well.
--- NOTE | 2022-12-10 16:43 | PTOPREEVAL ---
Assessment and note entered by Vishnu Paniagua, PT Evaluation Information Assessment Status Evaluation Diagnosis Imbalance, high fall risk Onset >3 months Subjective Information Patient reports still having falls reporting 2 in one day this week. She is going to be gone for a trip down to the [place] for the next month. Reports that last session with Marilyn BONDS something clicked in more and it has changed how she does things for the better. Reported Pain Level Pain Score 0: Self Report Assessment PT Clinical Summary Sheri is a 67 year old female coming into the clinic for hx of falls and balance issues. She has attended 6 visits and made improvements meeting her De León Balance test score goal, but also has a weaker functional gait assessment score than initial evaluation. Would recommend further visits to work on safety awareness along with improving her core recruitment and muscle memory. Plan of Care Interventions Electrical Stimulation,Gait Training,Hot Pack/Cold Pack,Manual Therapy,Neuro Re-education,Patient/ Caregiver Education,Therapeutic Activities, Therapeutic Exercise,Ultrasound Other Interventions taping PT Services Indicated Yes Treatment Frequency and 1-2x/wk for 4 weeks starting after return from Duration trip These treatments will address the objective and functional deficits as defined above. The patient will be advanced safely and appropriately in order for the patient to progress towards his/her prior level of function. Additional exercises will be introduced and as well as a comprehensive home exercise program upon discharge, if needed, ?to ensure carryover of functional gains achieved in the clinic. This treatment plan has been reviewed and agreement upon by the patient.
--- NOTE | 2023-01-14 13:54 | PCPTNOTE ---
Patient called & cancelled scheduled appointment this date due to not feeling well.
--- NOTE | 2023-01-23 11:18 | PCPTNOTE ---
Patient cancelled today's appointment due to broke toe.
--- NOTE | 2023-01-28 11:30 | PCPTNOTE ---
Patient did not show up for scheduled appointment this date. Called and had to leave a message.
--- NOTE | 2023-02-04 11:22 | PCPTNOTE ---
Admitting Provider: Attending Provider: TONIA BOOKER Patient:Sheri Shin Date of :1955 Patient has not returned for any further treatments since 12/10/2022, therefore she will be discharged at this time. Patient?s initial visit was on 11/20/2022 14:30 and she had a total of ____6____ visits with 7 cancelations or no shows. The goals have been partially met. Thank you for referring this patient to [facility]. Please review, sign, date and return this discharge summary JAYLAN. I have been updated about the patient's current status and I agree with discharge from the above service at this time. Referring Physician Date
--- NOTE | 2023-02-04 11:23 | PCPTNOTE ---
Patient did not show up for scheduled appointment this date.
== END 2023-02-05 13:39 | disposition home or self-care (01) ==
LOC: ANHPT 11:00
PROVIDERS: PCP Internal Medicine Infectious Disease
DX: R26.89 Other abnormalities of gait and mobility (principal); Z91.81 History of falling
CPT/HCPCS: 97110; 97112; 97161; 97530; 99199

== ENCOUNTER 2023-01-22 13:19 | Emergency (ER) | payer MEDICARE, MEDICAID, SELFPAY ==
--- NOTE | ~2023-01-22 | XR_ITS ---
EXAMINATION: XR toe 1st RT min 2V DATE: 01/22/2023 13:48 INDICATION: Right great toe injury and pain and swelling. TECHNIQUE: 3 views of right great toe were obtained. COMPARISON: None. FINDINGS: There is an intra-articular oblique fracture of head of first proximal phalanx with [address] ep-off at the articular surface. 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 IMPRESSION: 1. Intra-articular fracture of head of first proximal phalanx. Reviewed, dictated and finalized at location A.
[2023-01-22 13:22] VITALS: BP 107/81; PULSE 74; RESP 16; TEMP 36.3; O2SAT 98
--- NOTE | 2023-01-22 13:47 | ED.LOWEXIN ---
HPI - Extremity Injury (Lower) General Stated Complaint: right 1st digit toe Time Seen by Provider: 01/22/23 13:27 Source: patient Mode of arrival: ambulatory Limitations: no limitations History of Present Illness HPI Narrative: Patient is a 67-year-old female that presents with right great toe pain after stubbing it yesterday. Patient reports previous fracture in the right foot and states she has screws in each of her toes, concerned with broken hardware. Patient reports swelling was much greater yesterday before bed. Patient has been elevating foot as needed. Patient is still able to ambulate but states it is painful. Reports mild point tenderness. Related Data Home Medications Medication Instructions Recorded Confirmed atorvastatin 20 mg tablet 1 mg PO DAILY 05/01/21 09/22/22 gabapentin 100 mg capsule 2 mg PO HS 05/01/21 09/22/22 lamotrigine 200 mg tablet 1 mg PO BID 05/01/21 09/22/22 leflunomide 10 mg tablet 1 mg PO DAILY 05/01/21 09/22/22 metformin 500 mg tablet 1 mg PO BID 05/01/21 09/22/22 primidone 50 mg tablet 4 mg PO BID 05/01/21 09/22/22 propranolol 120 mg capsule,24 1 mg PO DIRECTED 05/01/21 09/22/22 hr,extended release sertraline 100 mg tablet 1 mg PO DIRECTED 05/01/21 09/22/22 clonazepam 0.5 mg tablet 12/08/21 loratadine 10 mg tablet mg 12/08/21 sumatriptan succinate 100 mg tablet mg PO 12/08/21 Allergies Allergy/AdvReac Type Severity Reaction Status Date / Time Penicillins Allergy Unknown Swelling Verified 01/22/23 14:07 Sulfa (Sulfonamide Allergy Unknown Rash Verified 01/22/23 14:07 Antibiotics) Review of Systems Review of Systems: All systems reviewed & are unremarkable except as noted in HPI and below Constitutional: Constitutional: Denies body ache(s), Denies fever(s), Denies headache(s), Denies malaise and Denies weakness Eyes: Eyes: Denies loss of vision ENT: Denies otalgia, Denies headache(s), Denies nasal discharge, Denies sinus pain and Denies sore throat Cardiovascular: Cardiovascular: Denies chest pain, Denies irregular heart rhythm and Denies dyspnea Respiratory: Respiratory: Denies dyspnea Gastrointestinal: Gastrointestinal: Denies abdominal pain, Denies melena, Denies hematochezia, Denies diarrhea, Denies nausea and Denies vomiting Musculoskeletal: Musculoskeletal: Denies back pain, Denies myalgias and Reports arthralgias (Right great toe) Integumentary/Breasts: Skin/Breast: Denies pruritus and Denies rash Neurologic: Denies headache(s), Denies loss of vision and Denies weakness Psychiatric: Psychiatric: Reports no additional psychiatric complaints [facility] Past Medical History Medical History Anxiety Bipolar depression Bipolar disorder Depression Diabetes History of alcohol abuse Sober for 9 years HLD (hyperlipidemia) Hx of migraines Menopause Tremor hands Surgical History Surgical History History of foot surgery Right x2 History of hand surgery Left History of tonsillectomy Family History Family History Father , Data 97 related to pneumonia Alzheimers disease Mother , Related to fall, Heart disease Social History Social History Smoking status: Former smoker Tobacco type: cigarettes Second hand tobacco smoke exposure: No Smoking end date: 10/12/96 Alcohol intake: former Substance use: never Living arrangements: with family Additional occupation/education comments: Disable Gender identity (if verbalized by the patient): Female Comments At time of signature, agree with nursing past medical, surgical, social and family history. There is no relevant family history pertinent to the presenting complaint. Exam Const: General: cooperative, healthy appearing, comfortable, no ac
== END 2023-01-22 14:36 | disposition home or self-care (01) ==
PROVIDERS: Emergency Provider Nurse Practitioner Family; PCP Internal Medicine Infectious Disease
DX: S92.411A Displaced fracture of proximal phalanx of right great toe, initial encounter for closed fracture (principal); X58.XXXA Exposure to other specified factors, initial encounter; E11.9 Type 2 diabetes mellitus without complications; E78.5 Hyperlipidemia, unspecified; F31.9 Bipolar disorder, unspecified; F41.9 Anxiety disorder, unspecified
CPT/HCPCS: 73660; 99214; G0463

== ENCOUNTER 2023-02-18 19:30 | Emergency (ER) | payer MEDICARE, MEDICAID, SELFPAY ==
[2023-02-18 19:38] VITALS: BP 107/70; PULSE 76; RESP 16; TEMP 36.6; O2SAT 99
--- NOTE | 2023-02-18 19:42 | PC.NURSE ---
in br to attempt ua spec.
--- NOTE | 2023-02-18 19:42 | ED.FEMALEGU ---
HPI - Female Genitourinary General Chief complaint: Urogenital-Female Stated complaint: Pressure on bladder; can't urine; pain in abdomen Time Seen by Provider: 02/18/23 19:34 Source: patient Mode of arrival: ambulatory Limitations: no limitations History of Present Illness HPI Narrative: Ms. Castrejon is a 67-year-old female patient presenting to the clinic today with complaints of pressure over her bladder, difficulty urinating, and lower abdominal pain x 1-2 days. She reports no fever or chills. No flank pain. Has had this happen to her before and she was diagnosed with a urinary tract infection. Related Data Home Medications Medication Instructions Recorded Confirmed atorvastatin 20 mg tablet 1 mg PO DAILY 05/01/21 02/03/23 gabapentin 100 mg capsule 2 mg PO HS 05/01/21 02/03/23 lamotrigine 200 mg tablet 1 mg PO BID 05/01/21 01/22/23 metformin 500 mg tablet 1 mg PO BID 05/01/21 01/22/23 primidone 50 mg tablet 4 mg PO BID 05/01/21 01/22/23 propranolol 120 mg capsule,24 1 mg PO DIRECTED 05/01/21 01/22/23 hr,extended release sertraline 100 mg tablet 1 mg PO DIRECTED 05/01/21 01/22/23 clonazepam 0.5 mg tablet 0.5 mg PO DAILY 12/08/21 02/03/23 loratadine 10 mg tablet 10 mg PO DAILY 12/08/21 01/22/23 sumatriptan succinate 100 mg tablet 100 mg PO DAILY 12/08/21 01/22/23 calcium carb 300 mg-D3 800 1 tablet PO DAILY 02/03/23 02/03/23 unit-mag ox 25 mg-microscopist 0.5 mg-quynh-Zn tablet (Caltrate + D3 Plus Minerals) cyclobenzaprine 10 mg tablet 10 mg PO .pm PRN 02/03/23 02/03/23 fluticasone furoate 50 inhalation 02/03/23 02/03/23 mcg/actuation blister powder for inhalation leflunomide 20 mg tablet 20 mg PO DAILY 02/03/23 02/03/23 loperamide 2 mg capsule (Imodium 2 mg PO Q6H PRN 02/03/23 02/03/23 A-D) omeprazole 20 mg capsule,delayed 20 mg PO DAILY 02/03/23 02/03/23 release hydroxychloroquine 200 mg tablet mg PO 02/18/23 Allergies Allergy/AdvReac Type Severity Reaction Status Date / Time Penicillins Allergy Unknown Swelling Verified 02/18/23 19:37 Sulfa (Sulfonamide Allergy Unknown Rash Verified 02/18/23 19:37 Antibiotics) Review of Systems Review of Systems: Pertinent positives per HPI. Patient denies any fever, chills, rash, headache, visual changes, dizziness, cough, runny nose, sore throat, shortness of breath, chest pain, palpitations, nausea, vomiting, diarrhea, or constipation PMFSH Past Medical History Medical History Anxiety Bipolar depression Bipolar disorder Depression Diabetes History of alcohol abuse Sober for 9 years HLD (hyperlipidemia) Hx of migraines Menopause Tremor hands Surgical History Surgical History History of foot surgery Right x2 History of hand surgery Left History of tonsillectomy Family History Family History Father , Data 97 related to pneumonia Alzheimers disease Mother , Related to fall, Heart disease Social History Social History Smoking status: Former smoker Tobacco type: cigarettes Second hand tobacco smoke exposure: No Smoking end date: 10/12/96 Alcohol intake: former Substance use: never Lack of Transportation: No Lack of Food: Never True Current Housing: I Have Housing Concerned About Future Housing: No Difficulty Paying Gas/Electric Bills: No Difficulty Paying for Meds: No Currently Unemployed: No Education: Master's Degree or Higher Difficulty w/ Childcare or Family Care: No Living arrangements: with family Additional occupation/education comments: Disable Gender identity (if verbalized by the patient): Female Comments At the time of my signature, I reviewed and agree with the nursing past medical, surgical, social, and family his
--- NOTE | 2023-02-18 19:48 | PC.NURSE ---
unable to give ua spec. at this time. political advisor gave water.
--- NOTE | 2023-02-18 19:54 | PC.NURSE ---
came to nurse station and requested hat to try to urinate in. was given.
== END 2023-02-18 20:14 | disposition home or self-care (01) ==
PROVIDERS: Emergency Provider Nurse Practitioner Family; PCP Internal Medicine Infectious Disease
DX: N30.01 Acute cystitis with hematuria (principal); Z87.891 Personal history of nicotine dependence; E11.9 Type 2 diabetes mellitus without complications; E78.5 Hyperlipidemia, unspecified
CPT/HCPCS: 81003; 87086; 99213; G0463

== ENCOUNTER 2023-03-08 17:28 | Emergency (ER) | payer MEDICARE, MEDICAID, SELFPAY ==
--- NOTE | ~2023-03-08 | XR_ITS ---
EXAMINATION: XR ribs BI 3V w CXR 2V DATE: 03/08/2023 18:08 INDICATION: Lower rib pain post fall from ladder TECHNIQUE: PA and lateral views of the chest and 3 views of the left ribs and 3 views of the right ri bs ribs were obtained. COMPARISON: Chest radiograph dated 08/23/2022 and rib radiographs dated 03/07/2020 FINDINGS: There is a peripheral irregular cortical contour along the anterolateral right fourth rib suspicious for age indeterminate fracture. Unchanged mild undulating contour to the anterolateral left third rib consistent with old healed fracture. Subtle step-off along the anterior cortical margin at the anter ior left fourth and fifth ribs. No other fractures versus costochondral junctions. Lungs remain clear with no focal airspace opacities, pulmonary edema, pleural effusion or pneumothorax. Cardiomediastin al silhouette is normal. Moderate S-shaped curvature of the thoracic spine. Left pectoral power suppl y with a pair of likely stimulator leads extending cephalad along the left and right sides of the nec k. IMPRESSION: 1. Potential nondisplaced fractures at the anterolateral right fourth rib and anterior left fourth an d fifth ribs. Correlate for point tenderness at these locations as there has been history of prior ri b trauma with suggestion of subtle unchanged old anterolateral left third rib fracture. 2. No acute cardiopulmonary disease. Reviewed, dictated and finalized at location A. IMPRESSION: 1. Potential nondisplaced fractures at the anterolateral right fourth rib and a nterior left fourth and fifth ribs. Correlate for point tenderness at these loc ations as there has been history of prior rib trauma with suggestion of subtle unchanged old anterolateral left third rib fracture. 2. No acute cardiopulmonary disease.
[2023-03-08 17:40] VITALS: BP 91/70; PULSE 74; RESP 14; TEMP 36.8; O2SAT 100
--- NOTE | 2023-03-08 17:53 | ED.GENADULT ---
HPI - General Adult General Chief complaint: Fall Stated complaint: Abdominal Pain Source: patient Mode of arrival: ambulatory Limitations: no limitations History of Present Illness HPI narrative: Patient presents for evaluation pain in bilateral ribs after a fall 2 days ago. She indicates she was on a ladder and fell off the third rung. She landed on her back. She did not hit her head nor did she have a LOC. She is not on blood thinners. She denies any vomiting following the event. She reports some abrasions to her knees and elbows but denies considerable pain. She indicates she has a sharp pain in her anterior ribs and left posterior ribs with deep inspiration and movement. She rates her pain as 9/10 in severity. She denies SOB. She is not taking any medication for her symptoms. She is diabetic but states BS are controlled in 's on metformin alone. Date of last tetanus about eight years ago. Related Data Home Medications Medication Instructions Recorded Confirmed atorvastatin 20 mg tablet 1 mg PO DAILY 05/01/21 03/08/23 gabapentin 100 mg capsule 2 mg PO HS 05/01/21 03/08/23 lamotrigine 200 mg tablet 1 mg PO BID 05/01/21 03/08/23 metformin 500 mg tablet 1 mg PO BID 05/01/21 03/08/23 primidone 50 mg tablet 4 mg PO BID 05/01/21 03/08/23 propranolol 120 mg capsule,24 1 mg PO DIRECTED 05/01/21 03/08/23 hr,extended release sertraline 100 mg tablet 1 mg PO DIRECTED 05/01/21 03/08/23 clonazepam 0.5 mg tablet 0.5 mg PO DAILY 12/08/21 03/08/23 loratadine 10 mg tablet 10 mg PO DAILY 12/08/21 03/08/23 sumatriptan succinate 100 mg tablet 100 mg PO DIRECTED 12/08/21 03/08/23 calcium carb 300 mg-D3 800 1 tablet PO DAILY 02/03/23 03/08/23 unit-mag ox 25 mg-copy lathe tender 0.5 mg-quynh-Zn tablet (Caltrate + D3 Plus Minerals) cyclobenzaprine 10 mg tablet 10 mg PO .pm PRN Pain, Moderate 02/03/23 03/08/23 leflunomide 20 mg tablet 20 mg PO DAILY 02/03/23 03/08/23 loperamide 2 mg capsule (Imodium 2 mg PO Q6H PRN Diarrhea 02/03/23 03/08/23 A-D) omeprazole 20 mg capsule,delayed 20 mg PO DAILY 02/03/23 03/08/23 release hydroxychloroquine 200 mg tablet 200 mg PO DIRECTED 02/18/23 03/08/23 Allergies Allergy/AdvReac Type Severity Reaction Status Date / Time Penicillins Allergy Unknown Swelling Verified 03/08/23 17:36 Sulfa (Sulfonamide Allergy Unknown Rash Verified 03/08/23 17:36 Antibiotics) Review of Systems Review of Systems: CONSTITUTIONAL: Denies fever, chills, or sweats. EYES: Denies visual changes, redness, or discharge. ENT: Denies rhinorrhea, congestion, sore throat, or otalgia. CARDIOVASCULAR: Denies chest pain, palpitations, or edema. RESPIRATORY: Denies cough or dyspnea. GASTROINTESTINAL: Denies abdominal pain, nausea, vomiting, or diarrhea. GENITOURINARY: Denies dysuria or hematuria. SKIN: Denies rash or itching. MUSCULOSKELETAL: Reports pain in anterior and posterior ribs bilaterally NEUROLOGIC: Denies headache, numbness, dizziness, or weakness. PSYCHIATRIC: Denies anxiety or depression. [facility] Past Medical History Medical History (Updated 03/08/23 @ 18:33 by FREDI Escobar, DORA) Anxiety Bipolar depression Bipolar disorder Depression Diabetes History of alcohol abuse Sober for 9 years HLD (hyperlipidemia) Hx of migraines Menopause Rib fracture Tremor hands Surgical History Surgical History History of foot surgery Right x2 History of hand surgery Left History of tonsillectomy Family History Family History Father , Data 97 related to pneumonia Alzheimers disease Mother , Related to fall, Heart disease Social History Social History Smoking status: Former smoker Tobacco type: cigarettes Second hand tobacco smoke exposure: No Smoking end date: 10/12/96 Alcohol
[2023-03-08] MEDS: TETANUS,DIPHTHERIA,AC PERTUSSIS ADULT (0.5 ML) BOOSTRIX IM (18:08)
== END 2023-03-08 18:45 | disposition home or self-care (01) ==
PROVIDERS: Emergency Provider Nurse Practitioner; PCP Internal Medicine Infectious Disease
DX: S22.42XA Multiple fractures of ribs, left side, initial encounter for closed fracture (principal); W11.XXXA Fall on and from ladder, initial encounter; Z23 Encounter for immunization; E11.9 Type 2 diabetes mellitus without complications; E78.5 Hyperlipidemia, unspecified; F31.9 Bipolar disorder, unspecified; F41.9 Anxiety disorder, unspecified; Z79.84 Long term (current) use of oral hypoglycemic drugs
CPT/HCPCS: 71046; 71110; 90471; 90715; 99213; G0463

== ENCOUNTER 2023-03-26 12:07 | Outpatient (CLI) | payer MEDICARE, MEDICAID, SELFPAY ==
--- NOTE | ~2023-03-26 | XR_ITS ---
XR knee RT min 4V 03/26/2023 12:36 Indication: Right knee pain Procedure: 4 views right knee Comparison: No prior studies for comparison. Findings: No fracture, subluxation or dislocation. There is mild tricompartment osteoarthritis. No soto int effusion. No foreign bodies. Impression: 1: Mild osteoarthritis of the right knee. Reviewed, dictated and finalized at location L. Impression: 1: Mild osteoarthritis of the right knee.
--- NOTE | ~2023-03-26 | XR_ITS ---
XR knee LT min 4V 03/26/2023 12:36 Indication: Left knee pain Procedure: 4 views left knee Comparison: No prior studies for comparison. Findings: There is mild tricompartment osteoarthritis of the left knee. No fracture, subluxation or d islocation. Small knee effusion. No foreign bodies. Impression: 1: Mild osteoarthritis of the left knee. Reviewed, dictated and finalized at location L. Impression: 1: Mild osteoarthritis of the left knee.
== END 2023-03-26 12:08 | disposition home or self-care (01) ==
PROVIDERS: PCP Internal Medicine Infectious Disease; Visit Provider Internal Medicine Infectious Disease
DX: M17.0 Bilateral primary osteoarthritis of knee (principal)
CPT/HCPCS: 73564

== ENCOUNTER 2023-05-22 14:25 | Emergency (ER) | payer MEDICARE, MEDICAID, SELFPAY ==
--- NOTE | ~2023-05-22 | XR_ITS ---
EXAMINATION: XR foot RT min 3V DATE: 05/22/2023 14:51 INDICATION: Lateral right foot pain. TECHNIQUE: 4 views of right foot were obtained. COMPARISON: Right great toe radiographs 02/24/2023, 01/22/2023 FINDINGS: Again seen is a fracture of medial aspect of head of first proximal phalanx with 1.6 mm emily p-off at the articular surface. There are old healed fractures of the necks of the second-fourth meta tarsals with fusion of the necks of the second and third metatarsals. There is mild osteoarthritis of first and fifth metatarsophalangeal joints and some of the interphalangeal joints. There are is an e nthesophyte at posterior aspect of calcaneal tuberosity. IMPRESSION: 1. Ununited fracture of head of first proximal phalanx again seen. 2. Mild polyarticular osteoarthritis. Reviewed, dictated and finalized at location A.
[2023-05-22 14:40] VITALS: BP 99/62; PULSE 79; RESP 16; TEMP 36.7; O2SAT 100
--- NOTE | 2023-05-22 15:06 | ED.LOWEXIN ---
HPI - Extremity Injury (Lower) General Chief Complaint: Extremity Injury, Lower Stated Complaint: right foot pain fell this a.m. Time Seen by Provider: 05/22/23 15:09 Source: patient Mode of arrival: ambulatory Limitations: no limitations History of Present Illness HPI Narrative: 68-year-old female with hx RA, DM presented for complaint of pain to the right foot after she fell off 3 inch platform while doing laundry today. Endorses pain to the mid foot area. Patient has full ROM, no bruising or swelling, denies deformity. Patient has hx fractured toes, most recent fx toe 02/2023 Related Data Home Medications Medication Instructions Recorded Confirmed atorvastatin 20 mg tablet 1 mg PO DAILY 05/01/21 03/08/23 gabapentin 100 mg capsule 2 mg PO HS 05/01/21 03/08/23 lamotrigine 200 mg tablet 1 mg PO BID 05/01/21 03/08/23 metformin 500 mg tablet 1 mg PO BID 05/01/21 03/08/23 primidone 50 mg tablet 4 mg PO BID 05/01/21 03/08/23 propranolol 120 mg capsule,24 1 mg PO DIRECTED 05/01/21 03/08/23 hr,extended release sertraline 100 mg tablet 1 mg PO DIRECTED 05/01/21 03/08/23 clonazepam 0.5 mg tablet 0.5 mg PO DAILY 12/08/21 03/08/23 loratadine 10 mg tablet 10 mg PO DAILY 12/08/21 03/08/23 sumatriptan succinate 100 mg tablet 100 mg PO DIRECTED 12/08/21 03/08/23 calcium carb 300 mg-D3 20 mcg-mag 1 tablet PO DAILY 02/03/23 03/08/23 ox 25 mg-copping machine operator 0.5 [id number]-[id number] tablet (Caltrate-D3 Plus Minerals) cyclobenzaprine 10 mg tablet 10 mg PO .pm PRN Pain, Moderate 02/03/23 03/08/23 leflunomide 20 mg tablet 20 mg PO DAILY 02/03/23 03/08/23 loperamide 2 mg capsule (Imodium 2 mg PO Q6H PRN Diarrhea 02/03/23 03/08/23 A-D) omeprazole 20 mg capsule,delayed 20 mg PO DAILY 02/03/23 03/08/23 release hydroxychloroquine 200 mg tablet 200 mg PO DIRECTED 02/18/23 03/08/23 Allergies Allergy/AdvReac Type Severity Reaction Status Date / Time Penicillins Allergy Unknown Swelling Verified 05/22/23 14:38 Sulfa (Sulfonamide Allergy Unknown Rash Verified 05/22/23 14:38 Antibiotics) Review of Systems Review of Systems: CONSTITUTIONAL: Denies body aches, fever, chills EYES: Denies visual changes ENT: Denies rhinorrhea, congestion CARDIOVASCULAR: Denies chest pain, palpitations, or edema. RESPIRATORY: Denies cough or dyspnea. GASTROINTESTINAL: Denies abdominal pain, nausea, vomiting, or diarrhea. SKIN: Denies rash, itching, or wounds. MUSCULOSKELETAL: Reports right foot pain denies back pain, joint pain, or myalgia. NEUROLOGIC: Denies headache, numbness, tingling, or weakness. All systems reviewed & are unremarkable except as noted in HPI and below PMFSH Past Medical History Medical History Anxiety Bipolar depression Bipolar disorder Depression Diabetes History of alcohol abuse Sober for 9 years HLD (hyperlipidemia) Hx of migraines Menopause Rib fracture Tremor hands Surgical History Surgical History History of foot surgery Right x2 History of hand surgery Left History of tonsillectomy Family History Family History Father , Data 97 related to pneumonia Alzheimers disease Mother , Related to fall, Heart disease Social History Social History Smoking status: Former smoker Tobacco type: cigarettes Second hand tobacco smoke exposure: No Smoking end date: 10/12/96 Alcohol intake: former Substance use: never Lack of Transportation: No Lack of Food: Never True Current Housing: I Have Housing Concerned About Future Housing: No Difficulty Paying Gas/Electric Bills: No Difficulty Paying for Meds: No Currently Unemployed: No Education: Master's Degree or Higher Difficulty w/ Childcare or Family Care: No Living arrangements: with [facility]
== END 2023-05-22 15:17 | disposition home or self-care (01) ==
PROVIDERS: Emergency Provider Nurse Practitioner Family; PCP Internal Medicine Infectious Disease
DX: M79.671 Pain in right foot (principal); Z87.891 Personal history of nicotine dependence; E11.9 Type 2 diabetes mellitus without complications; E78.5 Hyperlipidemia, unspecified; F41.9 Anxiety disorder, unspecified; F31.9 Bipolar disorder, unspecified
CPT/HCPCS: 73630; 99213; G0463

== ENCOUNTER 2023-09-18 09:25 | Outpatient (CLI) | payer MEDICARE, MEDICAID, SELFPAY ==
--- NOTE | ~2023-09-18 | DEXA_ITS ---
Bone Density Report Name: CHEYANNE DAWSON Age: 68 Sex: Female Ethnicity: White Date of : 1955 Indication: postmenopausal; screening for osteoporosis; parental hip fracture; height loss; prior fracture; rheumatoid arthritis; Referring Provider: JESSICA, ADE Study: Bone densitometry was performed. Exam Date: September 18, 2023 Accession number: [id number] Bone Density: Region BMD T-score Z-score Classification AP Spine(L1-L4) 0.699 -3.2 -1.2 Osteoporosis Femoral Neck (Left) 0.588 -2.3 -0.6 Osteopenia Total Hip (Left) 0.639 -2.5 -1.1 Osteoporosis Femoral Neck (Right) 0.537 -2.8 -1.1 Osteoporosis Total Hip (Right) 0.637 -2.5 -1.1 Osteoporosis Total Hip Mean 0.638 -2.5 -1.1 Osteoporosis World Health Organization criteria for BMD impression classify patients as: Normal (T-score at or above -1.0), Osteopenia (T-score between -1.0 and -2.5), or Osteoporosis (T-score at or below -2.5). 10-year Fracture Risk: FRAX not reported because: Some T-score for Spine Total or Hip Total or Femoral Neck at or below -2.5 Clinical Information Provided by Patient: Has had a low trauma fracture Parent has had a hip fracture Has rheumatoid arthritis Has used the following medications: Vitamin D, Calcium Patient maximum height was 67.0 Menopause Age: 52 No regular weight bearing exercise Does not regularly consume dairy products Drinks caffeinated beverages Onset of menses at age 14 Number of children 2 Impression: The patient has established osteoporosis, based on the Total Spine T-score and the existence of a prior fracture. The patient has risk factors, including: parental hip fracture, previous fracture. Discussion: HIGH RISK OF FRACTURE. BONE DENSITY IS UNDESIRABLY LOW AT ONE OR MORE SKELETAL SITES, CONSISTENT WITH POSTMENOPAUSAL OSTEOPOROSIS. This patient's lowest T-score, in a patient who has previously fractured, meets the World Health Organization's (WHO) criteria for severe osteoporosis. In untreated patients, the risk of osteoporotic fracture increases approximately two-fold for each 1.0 SD decrease in T-score. Low bone density is not the only risk factor for fracture; also consider factors such as patient's age, frailty or poor health, risk of falling, risk of injury, previous osteoporotic fracture, family history of osteoporosis, cigarette smoking, low body weight, etc. Not everyone with low bone mineral density has osteoporosis; osteomalacia and other metabolic bone disorders should also be considered. Patients who have osteoporosis should be evaluated for specific diseases and conditions (secondary causes) that may cause or contribute to bone loss. The [place] Association of Clinical Endocrinologists (AACE) and National Osteoporosis Foundation (NOF) recommend pharmacologic intervention for all pos
--- NOTE | ~2023-09-18 | MM_ITS ---
EXAMINATION: MM screening [facility] BI w salome HISTORY: Screening mammogram TECHNIQUE: Craniocaudal and mediolateral oblique 3-D tomosynthesis images were obtained and synthetic 2-D images were generated. CAD analysis was submitted and interpreted. COMPARISON: 10/08/2022, 09/17/2022, 04/28/2021, 06/02/2018 BREAST PARENCHYMAL COMPOSITION: The breasts are heterogeneously dense, which may obscure small masses . FINDINGS: No suspicious mass, calcification, or architectural distortion are identified in either nasreen ast to suggest malignancy. There has been no suspicious interval change. IMPRESSION: 1. No mammographic evidence of malignancy. 2. Recommend routine screening mammography in one year. BI-RADS Category 1: Negative Reviewed, dictated and finalized at location A. E PULLER
== END 2023-09-18 09:26 | disposition home or self-care (01) ==
LOC: ANHIMG 09:29
PROVIDERS: PCP Internal Medicine Infectious Disease; Visit Provider Internal Medicine Infectious Disease
DX: Z12.31 Encounter for screening mammogram for malignant neoplasm of breast (principal); M81.0 Age-related osteoporosis without current pathological fracture; Z78.0 Asymptomatic menopausal state
CPT/HCPCS: 77063; 77067; 77080

== ENCOUNTER 2023-10-14 14:53 | Emergency (ER) | payer MEDICARE, MEDICAID, SELFPAY ==
--- NOTE | ~2023-10-14 | XR_ITS ---
EXAMINATION: XR toe 4th LT min 2V DATE: 10/14/2023 15:38 INDICATION: Left fourth toe injury. TECHNIQUE: 3 views of left fourth toe were obtained. COMPARISON: None. FINDINGS: There is a nondisplaced avulsion fracture of dorsal base of fourth distal phalanx. There is mild osteoarthritis of fourth distal interphalangeal joint. IMPRESSION: 1. Nondisplaced avulsion fracture of dorsal base of fourth distal phalanx. Reviewed, dictated and finalized at location E. ARCH PROFESSIONAL
--- NOTE | ~2023-10-14 | XR_ITS ---
XR foot RT min 3V DATE: 10/14/2023 15:38 INDICATION: Right foot pain for one week TECHNIQUE: 4 views COMPARISON: 05/22/2023 right foot FINDINGS: Again noted is an ununited fracture of the medial head of the proximal phalanx of the first digit. There is bony bridging/fusion at the necks of the second and third metatarsal bones, with evidence of old healed fracture deformities of the second, third and fourth metatarsal bones, unchanged since 08/2023 There is polyarticular osteoarthritis, including tarsal and particularly tarsometatarsal joints in ad dition to first and fifth metatarsophalangeal joints. Posterior calcaneal enthesopathy. No recent fracture or dislocation, periosteal reaction or bone destruction is noted. IMPRESSION: No significant change since 05/22/2023 Reviewed, dictated and finalized at location B. SPLITTER
[2023-10-14 15:12] VITALS: BP 100/72; PULSE 74; RESP 16; TEMP 36.4; O2SAT 97
--- NOTE | 2023-10-14 15:47 | ED.LOWEXIN ---
HPI - Extremity Injury (Lower) General Chief Complaint: Extremity Injury, Lower Stated Complaint: left toe pain, right foot hurts Time Seen by Provider: 10/14/23 15:03 Source: patient Mode of arrival: ambulatory Limitations: no limitations History of Present Illness HPI Narrative: Sheri is a 60-year-old female patient presenting to the clinic today with complaints of left 4th toe pain. She reports she stubbed it last night when walking across the threshold. Toe is bruised and swollen. Also complaining of her right dorsal foot hurting with pain radiating into her ankle. States this has been going on for 1.5 weeks. Denies any history of pain in her feet. No known injury to her right foot. Related Data Home Medications Medication Instructions Recorded Confirmed atorvastatin 20 mg tablet 1 mg PO DAILY 05/01/21 10/14/23 gabapentin 100 mg capsule 2 mg PO HS 05/01/21 10/14/23 lamotrigine 200 mg tablet 1 mg PO BID 05/01/21 10/14/23 metformin 500 mg tablet 1 mg PO BID 05/01/21 10/14/23 primidone 50 mg tablet 4 mg PO BID 05/01/21 10/14/23 propranolol 120 mg capsule,24 1 mg PO DIRECTED 05/01/21 10/14/23 hr,extended release sertraline 100 mg tablet 1 mg PO DIRECTED 05/01/21 10/14/23 clonazepam 0.5 mg tablet 0.5 mg PO DAILY 12/08/21 10/14/23 loratadine 10 mg tablet 10 mg PO DAILY 12/08/21 10/14/23 sumatriptan succinate 100 mg tablet 100 mg PO DIRECTED 12/08/21 10/14/23 calcium carb 300 mg-D3 20 mcg-mag 1 tablet PO DAILY 02/03/23 10/14/23 ox 25 mg-copyright clerk 0.5 [id number]-wqui tablet (Caltrate-D3 Plus Minerals) cyclobenzaprine 10 mg tablet 10 mg PO .pm PRN Pain, Moderate 02/03/23 10/14/23 leflunomide 20 mg tablet 20 mg PO DAILY 02/03/23 10/14/23 loperamide 2 mg capsule (Imodium 2 mg PO Q6H PRN Diarrhea 02/03/23 10/14/23 A-D) omeprazole 20 mg capsule,delayed 20 mg PO DAILY 02/03/23 10/14/23 release hydroxychloroquine 200 mg tablet 200 mg PO DIRECTED 02/18/23 10/14/23 Allergies Allergy/AdvReac Type Severity Reaction Status Date / Time Penicillins Allergy Severe Swelling Verified 10/14/23 14:56 Sulfa (Sulfonamide Allergy Intermediate Rash Verified 10/14/23 14:56 Antibiotics) Review of Systems Review of Systems: Pertinent positives per HPI. Patient denies any fever, chills, rash, headache, visual changes, dizziness, cough, runny nose, sore throat, shortness of breath, chest pain, palpitations, nausea, vomiting, diarrhea, constipation, abdominal pain, or any urinary issues. [facility] Past Medical History Medical History Anxiety Bipolar depression Bipolar disorder Depression Diabetes History of alcohol abuse Sober for 9 years HLD (hyperlipidemia) Hx of migraines Menopause Rib fracture Tremor hands Surgical History Surgical History History of foot surgery Right x2 History of hand surgery Left History of tonsillectomy Family History Family History Father , Data 97 related to pneumonia Alzheimers disease Mother , Related to fall, Heart disease Social History Social History Smoking status: Former smoker Tobacco type: cigarettes Second hand tobacco smoke exposure: No Smoking end date: 10/12/96 Alcohol intake: former Substance use: never Lack of Transportation: No Lack of Food: Never True Current Housing: I Have Housing Concerned About Future Housing: No Difficulty Paying Gas/Electric Bills: No Difficulty Paying for Meds: No Currently Unemployed: No Education: Master's Degree or Higher Difficulty w/ Childcare or Family Care: No Living arrangements: with family Additional occupation/education comments: Disable Gender identity (if verbalized by the patient): Female Comments At the time of my signature,
== END 2023-10-14 16:05 | disposition home or self-care (01) ==
PROVIDERS: Emergency Provider Nurse Practitioner Family; PCP Internal Medicine Infectious Disease
DX: S92.535A Nondisplaced fracture of distal phalanx of left lesser toe(s), initial encounter for closed fracture (principal); W22.09XA Striking against other stationary object, initial encounter; M79.671 Pain in right foot; Z87.891 Personal history of nicotine dependence; E11.9 Type 2 diabetes mellitus without complications; Z79.84 Long term (current) use of oral hypoglycemic drugs; E78.5 Hyperlipidemia, unspecified; F41.9 Anxiety disorder, unspecified; F31.9 Bipolar disorder, unspecified
CPT/HCPCS: 73630; 73660; 99214; G0463

== ENCOUNTER 2024-04-18 12:18 | Emergency (ER) | payer MEDICARE, MEDICAID, SELFPAY ==
[2024-04-18 12:35] VITALS: BP 96/73; PULSE 71; RESP 20; TEMP 36.6; O2SAT 100
--- NOTE | 2024-04-18 12:52 | ED.EYEPROB ---
HPI - Eye Problem General Chief complaint: Eye Problems Stated complaint: left eye red,discharge,hurts Time Seen by Provider: 04/18/24 12:52 Source: patient Mode of arrival: ambulatory Limitations: no limitations History of Present Illness HPI Narrative: 68-year-old female presents with complaint of left eye redness, swelling, burning and itching with yellow drainage since yesterday. Denies eye injury. Does not wear contacts. All systems reviewed and negative except as noted above. Related Data Home Medications Medication Instructions Recorded Confirmed atorvastatin 20 mg tablet 1 mg PO DAILY 05/01/21 04/18/24 gabapentin 100 mg capsule 2 mg PO HS 05/01/21 04/18/24 lamotrigine 200 mg tablet 1 mg PO BID 05/01/21 04/18/24 primidone 50 mg tablet 4 mg PO BID 05/01/21 04/18/24 propranolol 120 mg capsule,24 1 mg PO DIRECTED 05/01/21 04/18/24 hr,extended release sertraline 100 mg tablet 1 mg PO DIRECTED 05/01/21 04/18/24 clonazepam 0.5 mg tablet 0.5 mg PO DAILY 12/08/21 04/18/24 loratadine 10 mg tablet 10 mg PO DAILY 12/08/21 04/18/24 sumatriptan succinate 100 mg tablet 100 mg PO DIRECTED 12/08/21 04/18/24 calcium carb 300 mg-D3 20 mcg-mag 1 tablet PO DAILY 02/03/23 04/18/24 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-helicopter pilot 0.5 iw-hsqn-upty tablet (Caltrate-D3 Plus Minerals) cyclobenzaprine 10 mg tablet 10 mg PO .pm PRN Pain, Moderate 02/03/23 04/18/24 leflunomide 20 mg tablet 20 mg PO DAILY 02/03/23 04/18/24 loperamide 2 mg capsule (Imodium 2 mg PO Q6H PRN Diarrhea 02/03/23 04/18/24 A-D) omeprazole 20 mg capsule,delayed 20 mg PO DAILY 02/03/23 04/18/24 release hydroxychloroquine 200 mg tablet 200 mg PO DIRECTED 02/18/23 04/18/24 azathioprine 50 mg tablet 25 mg PO DAILY 04/18/24 04/18/24 Allergies Allergy/AdvReac Type Severity Reaction Status Date / Time Penicillins Allergy Severe Swelling Verified 04/18/24 12:38 Sulfa (Sulfonamide Allergy Intermediate Rash Verified 04/18/24 12:38 Antibiotics) Review of Systems Review of Systems: CONSTITUTIONAL: Denies fever, chills, or sweats. EYES: Denies visual changes . Reports left eye redness, yellow discharge burning and itching.. ENT: Denies rhinorrhea, congestion, sore throat, or otalgia. CARDIOVASCULAR: Denies chest pain, palpitations, or edema. RESPIRATORY: Denies cough or dyspnea. GASTROINTESTINAL: Denies abdominal pain, nausea, vomiting, or diarrhea. GENITOURINARY: Denies dysuria or hematuria. SKIN: Denies rash or itching. MUSCULOSKELETAL: Denies back pain, joint pain, or myalgia. NEUROLOGIC: Denies headache, numbness, or weakness. PSYCHIATRIC: Denies anxiety or depression. All other systems reviewed are negative, except as documented in HPI. [facility] Past Medical History Medical History Anxiety Bipolar depression Bipolar disorder Depression Diabetes History of alcohol abuse Sober for 9 years HLD (hyperlipidemia) Hx of migraines Menopause Rib fracture Tremor hands Surgical History Surgical History History of foot surgery Right x2 History of hand surgery Left History of tonsillectomy Family History Family History Father , Data 97 related to pneumonia Alzheimers disease Mother , Related to fall, Heart disease Social History Social History Smoking status: Former smoker Tobacco type: cigarettes Second hand tobacco smoke exposure: No Smoking end date: 10/12/96 Alcohol intake: former Substance use: never Lack of Transportation: No Lack of Food: Never True Current Housing: I Have Housing Concerned About Future Housing: No Difficulty Paying Gas/Electric Bills: No Difficulty Paying for Meds: No Currently Unemployed: No Education: Master's Degree or Higher Difficulty w/ Childcar
== END 2024-04-18 13:01 | disposition home or self-care (01) ==
PROVIDERS: Emergency Provider Nurse Practitioner Family
DX: H10.32 Unspecified acute conjunctivitis, left eye (principal); Z87.891 Personal history of nicotine dependence; E11.9 Type 2 diabetes mellitus without complications; E78.5 Hyperlipidemia, unspecified; F31.9 Bipolar disorder, unspecified; F41.9 Anxiety disorder, unspecified
CPT/HCPCS: 99213; G0463

== ENCOUNTER 2024-06-29 14:02 | Emergency (ER) | payer MEDICARE, MEDICAID, SELFPAY ==
--- NOTE | ~2024-06-29 | XR_ITS ---
EXAMINATION: XR knee LT 3V, XR tibia fibula LT 2V DATE: 06/29/2024 15:04 INDICATION: Left knee pain post fall TECHNIQUE: 1. Weight bearing anteroposterior and Salas, sunrise, and flexed lateral views of the left knee w ere obtained 2. AP and lateral views of the left lower leg were obtained. COMPARISON: 03/26/2023 FINDINGS: Alignment is normal. No fracture. Joint spaces appear normal with small marginal osteophytes in all 3 compartments of the knee consistent with mild tricompartmental osteoarthritis. Chronic subarticular cystlike changes are seen at the patella and at the lateral trochlea suggesting overlying high-grade chondromalacia. Likely small left knee joint effusion. Additional mild osteoarthritis at the left an kle joint without joint effusion. Prepatellar soft tissue swelling. Soft tissues about the more dista l lower leg are unremarkable. IMPRESSION: 1. Mild prepatellar soft tissue swelling and small left knee joint fusion without evident acute osseo us abnormality. 2. Mild osteoarthritis in all 3 components the left knee and at the left ankle Reviewed, dictated and finalized at location B. IMPRESSION: 1. Mild prepatellar soft tissue swelling and small left knee joint fusion witho ut evident acute osseous abnormality. 2. Mild osteoarthritis in all 3 components the left knee and at the left ankle
[2024-06-29 14:04] VITALS: BP 105/69; PULSE 72; RESP 20; TEMP 36.5; O2SAT 100
--- NOTE | 2024-06-29 14:50 | ED.GENADULT ---
HPI - General Adult General Chief complaint: Fall Stated complaint: FALL Source: patient Mode of arrival: ambulatory Limitations: no limitations History of Present Illness HPI narrative: Pt presents for evaluation of pain in the left lower extremity following a fall nine days ago. She was exercising on a treadmill and thought she hit a button to turn on the TV but accidentally accelerated the treadmill into the highest speed. She fell and bumped her legs in the process. She did not hit her head. No LOC. She is not on blood thinners. She has a history of OA, RA and osteoporosis. She has some abrasions to anterior aspect of her BLE. She not reports pain in the left knee and left lower leg. She rates her pain as 7/10 in severity. Ibuprofen has helped decrease her pain. Related Data Home Medications Medication Instructions Recorded Confirmed atorvastatin 20 mg tablet 1 mg PO DAILY 05/01/21 06/29/24 gabapentin 100 mg capsule 2 mg PO HS 05/01/21 06/29/24 lamotrigine 200 mg tablet 1 mg PO BID 05/01/21 06/29/24 primidone 50 mg tablet 4 mg PO BID 05/01/21 06/29/24 propranolol 120 mg capsule,24 1 mg PO DAILY 05/01/21 06/29/24 hr,extended release sertraline 100 mg tablet 1 mg PO DIRECTED 05/01/21 06/29/24 clonazepam 0.5 mg tablet 0.5 mg PO DAILY 12/08/21 06/29/24 loratadine 10 mg tablet 10 mg PO DAILY 12/08/21 06/29/24 sumatriptan succinate 100 mg tablet 100 mg PO DAILY 12/08/21 06/29/24 calcium carb 300 mg-D3 20 mcg-mag 1 tablet PO DAILY 02/03/23 06/29/24 ox 25 mg-certified flex endoscope reprocessor 0.5 [id number] tablet (Caltrate-D3 Plus Minerals) cyclobenzaprine 10 mg tablet 10 mg PO .pm PRN Pain, Moderate 02/03/23 06/29/24 leflunomide 20 mg tablet 20 mg PO DAILY 02/03/23 06/29/24 loperamide 2 mg capsule (Imodium 2 mg PO Q6H PRN Diarrhea 02/03/23 06/29/24 A-D) omeprazole 20 mg capsule,delayed 20 mg PO DAILY 02/03/23 06/29/24 release hydroxychloroquine 200 mg tablet 200 mg PO DIRECTED 02/18/23 06/29/24 azathioprine 50 mg tablet 25 mg PO DAILY 04/18/24 06/29/24 Allergies Allergy/AdvReac Type Severity Reaction Status Date / Time Penicillins Allergy Severe Swelling Verified 06/29/24 14:22 Sulfa (Sulfonamide Allergy Intermediate Rash Verified 06/29/24 14:22 Antibiotics) Review of Systems Review of Systems: CONSTITUTIONAL: Denies fever, chills, or sweats. EYES: Denies visual changes, redness, or discharge. ENT: Denies rhinorrhea, congestion, sore throat, or otalgia. CARDIOVASCULAR: Denies chest pain, palpitations, or edema. RESPIRATORY: Denies cough or dyspnea. GASTROINTESTINAL: Denies abdominal pain, nausea, vomiting, or diarrhea. GENITOURINARY: Denies dysuria or hematuria. SKIN: Reports abrasions to anterior aspect of BLE MUSCULOSKELETAL: Reports pain in left knee and left lower leg NEUROLOGIC: Denies headache, numbness, dizziness, or weakness. PSYCHIATRIC: Denies anxiety or depression. [facility] Past Medical History Medical History Anxiety Bipolar depression Bipolar disorder Depression Diabetes History of alcohol abuse Sober for 9 years HLD (hyperlipidemia) Hx of migraines Menopause Rib fracture Tremor hands Surgical History Surgical History History of foot surgery Right x2 History of hand surgery Left History of tonsillectomy Family History Family History Father , Data 97 related to pneumonia Alzheimers disease Mother , Related to fall, Heart disease Social History Social History Smoking status: Former smoker Tobacco type: cigarettes Second hand tobacco smoke exposure: No Smoking end date: 10/12/96 Alcohol intake: former 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
== END 2024-06-29 15:41 | disposition home or self-care (01) ==
PROVIDERS: Emergency Provider Nurse Practitioner
DX: S80.02XA Contusion of left knee, initial encounter (principal); S80.12XA Contusion of left lower leg, initial encounter; W19.XXXA Unspecified fall, initial encounter; Y93.A1 Activity, exercise machines primarily for cardiorespiratory conditioning; M25.462 Effusion, left knee; Z87.891 Personal history of nicotine dependence; E11.9 Type 2 diabetes mellitus without complications; E78.5 Hyperlipidemia, unspecified; F31.9 Bipolar disorder, unspecified; F41.9 Anxiety disorder, unspecified
CPT/HCPCS: 73562; 73590; 99213; G0463

== ENCOUNTER 2024-07-21 11:49 | Emergency (ER) | payer MEDICARE, MEDICAID, SELFPAY ==
--- NOTE | ~2024-07-21 | XR_ITS ---
XR knee RT min 4V Ordering provider: Li Dasilva APRN History: . pain fall 3 days ago . Comparison: March 26, 2020 FINDINGS: BONES: No acute fracture or dislocation. JOINT SPACES: Normal. SOFT TISSUES: Normal. IMPRESSION: No acute osseous abnormality right knee. Reviewed, dictated and finalized at location A.
--- NOTE | 2024-07-21 12:04 | ED.GENADULT ---
HPI - General Adult General Chief complaint: Fall Stated complaint: injured knees,elbows,head Source: patient, RN notes reviewed and old records reviewed Mode of arrival: ambulatory Limitations: no limitations History of Present Illness HPI narrative: 69-year-old female presents to the [facility] post fall on Thursday, 3 days ago. Patient mostly concern for her right knee. Reports that she has an MRI scheduled for her left knee. States that she tried calling her orthopedic to get her right knee added on but was told to come to the urgent care to get evaluated. Patient states that she slipped and fell, bumped her head on a water heater. Did bump her elbows but does have full range of motion, no bruising or swelling noted. Patient mostly concern for her right knee Has had intermittent headaches. No treatment prior to arrival. Denies any blurry vision or change in vision. Related Data Home Medications Medication Instructions Recorded Confirmed atorvastatin 20 mg tablet 1 mg PO DAILY 05/01/21 07/21/24 gabapentin 100 mg capsule 2 mg PO HS 05/01/21 07/21/24 lamotrigine 200 mg tablet 1 mg PO BID 05/01/21 07/21/24 primidone 50 mg tablet 4 mg PO BID 05/01/21 07/21/24 propranolol 120 mg capsule,24 1 mg PO DAILY 05/01/21 07/21/24 hr,extended release sertraline 100 mg tablet 1 mg PO DIRECTED 05/01/21 07/21/24 clonazepam 0.5 mg tablet 0.5 mg PO DAILY 12/08/21 07/21/24 loratadine 10 mg tablet 10 mg PO DAILY 12/08/21 07/21/24 sumatriptan succinate 100 mg tablet 100 mg PO DAILY 12/08/21 07/21/24 calcium 300 mg-D3 20 mcg-magnesium 1 tablet PO DAILY 02/03/23 07/21/24 25 mg-coppr 0.5 [id number] tablet (Caltrate-D3 Plus Minerals) cyclobenzaprine 10 mg tablet 10 mg PO .pm PRN Pain, Moderate 02/03/23 07/21/24 leflunomide 20 mg tablet 20 mg PO DAILY 02/03/23 07/21/24 loperamide 2 mg capsule (Imodium 2 mg PO Q6H PRN Diarrhea 02/03/23 07/21/24 A-D) omeprazole 20 mg capsule,delayed 20 mg PO DAILY 02/03/23 07/21/24 release hydroxychloroquine 200 mg tablet 200 mg PO DIRECTED 02/18/23 07/21/24 azathioprine 50 mg tablet 25 mg PO DAILY 04/18/24 07/21/24 alendronate 70 mg tablet 70 mg PO DAILY 07/21/24 07/21/24 aripiprazole 2 mg tablet 2 mg PO DAILY 07/21/24 07/21/24 fluticasone propionate 50 2 spray intranasal DAILY 07/21/24 07/21/24 mcg/actuation nasal spray,suspension peg 3350-electrolytes 236 See Rx Instructions .Route .COMPLEX 07/21/24 07/21/24 gram-22.74 gram-6.74 gram-5.86 gram solution Allergies Allergy/AdvReac Type Severity Reaction Status Date / Time Penicillins Allergy Severe Swelling Verified 07/21/24 12:04 Sulfa (Sulfonamide Allergy Intermediate Rash Verified 07/21/24 12:04 Antibiotics) Review of Systems Review of Systems: All systems reviewed & are unremarkable except as noted in HPI and below Constitutional: Constitutional: Reports no additional constitutional complaints Eyes: Eyes: Reports no additional eye complaints ENT: Reports system reviewed and no additional complaints, except as documented Cardiovascular: Cardiovascular: Reports no additional cardiovascular complaints, Denies chest pain and Denies dyspnea Respiratory: Respiratory: Reports no additional respiratory complaints, Denies chest congestion, Denies cough and Denies dyspnea Gastrointestinal: Gastrointestinal: Reports no additional gastrointestinal complaints, Denies abdominal pain, Denies nausea and Denies vomiting Musculoskeletal: Musculoskeletal: Reports as per HPI Integumentary/Breasts: Skin/Breast: Reports system reviewed and no additional complaints, except as docu Neurologic: Reports system reviewed and no additional complaints, except as documented Psychiatric: Psychiatric: Reports no additional psychiatric complaints Allergic/Immunologic: Allergic/Immunologic: Reports no additional allergic/immunologic complaints PMFSH Past Medical History Medical History A
[2024-07-21 12:12] VITALS: BP 98/62; PULSE 69; RESP 15; TEMP 36.7; O2SAT 100
== END 2024-07-21 13:08 | disposition home or self-care (01) ==
PROVIDERS: Emergency Provider Nurse Practitioner
DX: S80.01XA Contusion of right knee, initial encounter (principal); S16.1XXA Strain of muscle, fascia and tendon at neck level, initial encounter; W01.0XXA Fall on same level from slipping, tripping and stumbling without subsequent striking against object, initial encounter; R51.9 Headache, unspecified; Z87.891 Personal history of nicotine dependence; M19.90 Unspecified osteoarthritis, unspecified site; E11.9 Type 2 diabetes mellitus without complications; E78.00 Pure hypercholesterolemia, unspecified; E78.5 Hyperlipidemia, unspecified; M81.0 Age-related osteoporosis without current pathological fracture; G25.81 Restless legs syndrome; M06.9 Rheumatoid arthritis, unspecified; F31.9 Bipolar disorder, unspecified; F41.9 Anxiety disorder, unspecified
CPT/HCPCS: 73564; 99213; G0463

== ENCOUNTER 2024-09-30 13:08 | Emergency (ER) | payer MEDICARE, SELFPAY ==
--- NOTE | ~2024-09-30 | XR_ITS ---
Left Hand Technique: PA, oblique, and lateral views were obtained. Clinical History: Trauma COMPARISON: 12/08/2021 Findings: No acute fracture or dislocation is seen. Stable, chronic, probable posttraumatic change of the distal aspect of the third distal phalanx. Osseous alignment is anatomic. Joint spaces are prese rved. Soft tissues are unremarkable. Impression: No acute abnormality. No change from prior exam. Reviewed, dictated and finalized at location M. [facility] Impression: No acute abnormality. No change from prior exam.
[2024-09-30 13:22] VITALS: BP 107/63; PULSE 74; RESP 18; TEMP 36.4; O2SAT 100
--- NOTE | 2024-09-30 14:33 | ED.GENADULT ---
HPI - General Adult General Chief complaint: Extremity Injury, Upper Stated complaint: fall/left hand injury Time Seen by Provider: 09/30/24 13:13 History of Present Illness HPI narrative: Patient is a 69-year-old female who presents ER with pain to left hand. She tripped and fell backwards striking her hand on a door. Did not strike her head or lose consciousness. Has pain moving from her mid hand dorsally towards the 4th finger. She has rheumatoid arthritis as swelling to her fingers. She has a ring that is stuck on her ring finger. No numbness or tingling. No additional concerns. Related Data Home Medications ?Medication ?Instructions ?Recorded ?Confirmed ?Last Taken ?Type atorvastatin 20 mg tablet 1 mg PO DAILY 05/01/21 07/21/24 Unknown History gabapentin 100 mg capsule 2 mg PO HS 05/01/21 07/21/24 Unknown History lamotrigine 200 mg tablet 1 mg PO BID 05/01/21 07/21/24 Unknown History primidone 50 mg tablet 4 mg PO BID 05/01/21 07/21/24 Unknown History propranolol 120 mg capsule,24 1 mg PO DAILY 05/01/21 07/21/24 Unknown History hr,extended release sertraline 100 mg tablet 1 mg PO DIRECTED 05/01/21 07/21/24 Unknown History clonazepam 0.5 mg tablet 0.5 mg PO DAILY 12/08/21 07/21/24 Unknown History loratadine 10 mg tablet 10 mg PO DAILY 12/08/21 07/21/24 Unknown History sumatriptan succinate 100 mg tablet 100 mg PO DAILY 12/08/21 07/21/24 Unknown History calcium 300 mg-D3 20 mcg-magnesium 1 tablet PO DAILY 02/03/23 07/21/24 Unknown History 25 mg-coppr 0.5 [id number] tablet (Caltrate-D3 Plus Minerals) cyclobenzaprine 10 mg tablet 10 mg PO .pm PRN Pain, Moderate 02/03/23 07/21/24 Unknown History leflunomide 20 mg tablet 20 mg PO DAILY 02/03/23 07/21/24 Unknown History loperamide 2 mg capsule (Imodium 2 mg PO Q6H PRN Diarrhea 02/03/23 07/21/24 Unknown History A-D) omeprazole 20 mg capsule,delayed 20 mg PO DAILY 02/03/23 07/21/24 Unknown History release hydroxychloroquine 200 mg tablet 200 mg PO DIRECTED 02/18/23 07/21/24 Unknown History azathioprine 50 mg tablet 25 mg PO DAILY 04/18/24 07/21/24 Unknown History alendronate 70 mg tablet 70 mg PO DAILY 07/21/24 07/21/24 Unknown History aripiprazole 2 mg tablet 2 mg PO DAILY 07/21/24 07/21/24 Unknown History fluticasone propionate 50 2 spray intranasal DAILY 07/21/24 07/21/24 Unknown History mcg/actuation nasal spray,suspension peg 3350-electrolytes 236 See Rx Instructions .Route .COMPLEX 07/21/24 07/21/24 Unknown History gram-22.74 gram-6.74 gram-5.86 gram solution Allergies Allergy/AdvReac Type Severity Reaction Status Date / Time Penicillins Allergy Severe Swelling Verified 07/21/24 12:04 Sulfa (Sulfonamide Allergy Intermediate Rash Verified 07/21/24 12:04 Antibiotics) Review of Systems Constitutional: Constitutional: Reports no additional constitutional complaints Musculoskeletal: Musculoskeletal: Denies back pain, Denies myalgias, Reports arthralgias and Reports joint swelling Integumentary/Breasts: Skin/Breast: Reports system reviewed and no additional complaints, except as docu PMFSH Past Medical History Medical History Anxiety Arthritis Bipolar depression Bipolar disorder Chronic headaches Constipation Depression Diabetes Diarrhea High cholesterol History of alcohol abuse Sober for 9 years History of falling History of UTI HLD (hyperlipidemia) Hx of migraines Memory loss Menopause Osteoporosis Restless leg syndrome Rheumatoid arthritis Rib fracture Tremor hands Surgical History Surgical History History of foot surgery Right x2 History of hand surgery Left History of tonsillectomy Family History Family History Father , Data 97 related to pneumonia Alzheimers disease Mother , Related to fall, Heart disease Unknown Hypertension Heart disease Diabetes mellitus High cholesterol Depression Arthritis Alcoholism Social History Social History Smoking packs per day: 2 Smoking cigarettes per day: 40.0 Years smoked: 24 Smoking pack-years: 48.00 Smoking status: Former smoker Tobacco type: cigarettes Second hand tobacco smoke exposure: No Smoking end date: 10/12/96 Alcohol intake: former 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od: Never True Current Housing: I Have Housing Concerned About Future Housing: No Difficulty Paying Gas/Electric Bills: No Difficulty Paying for Meds: No Currently Unemployed: No Education: Master's Degree or Higher Difficulty w/ Childcare or Family Care: No Living arrangements: with roommate(s) Additional occupation/education comments: Disable Gender identity (if verbalized by the patient): Female Sexual Orientation (if Verbalized by the Patient): Straight or Heterosexual Exam Narrative: GENERAL: Well-appearing, well-nourished, and in no acute distress. HEAD: Normocephalic, atraumatic. HEART: Regular rate and rhythm. Normal peripheral pulses. EXTREMITIES: Normal range of motion. No edema. Mild tenderness dorsum of left hand over the 4th metacarpal. SKIN: Warm, dry, no rash. NEURO: Alert and oriented x3. PSYCH: Normal mood and affect. Course Course Emergency Course: 1420: Wedding ring removed from left 4th digit using a pair of trauma shekhar. No complications and patient tolerated well. Vital Signs Vital signs: Vital Signs Temperature 97.6 F 09/30/24 13:22 Pulse Rate 74 09/30/24 13:22 Respiratory Rate 18 09/30/24 13:22 Blood Pressure 107/63 09/30/24 13:22 Pulse Oximetry 100 09/30/24 13:22 Oxygen Delivery Room Air 09/30/24 13:22 Temperature 97.6 F 09/30/24 13:22 Pulse Rate 74 09/30/24 13:22 Respiratory Rate 18 09/30/24 13:22 Blood Pressure 107/63 09/30/24 13:22 Pulse Oximetry 100 09/30/24 13:22 Oxygen Delivery Room Air 09/30/24 13:22 Medical Decision Making Vital Signs Vital Signs: Vital Signs Temperature 97.6 F 09/30/24 13:22 Pulse Rate 74 09/30/24 13:22 Respiratory Rate 18 09/30/24 13:22 Blood Pressure 107/63 09/30/24 13:22 Pulse Oximetry 100 09/30/24 13:22 Oxygen Delivery Room Air 09/30/24 13:22 Temperature 97.6 F 09/30/24 13:22 Pulse Rate 74 09/30/24 13:22 Respiratory Rate 18 09/30/24 13:22 Blood Pressure 107/63 09/30/24 13:22 Pulse Oximetry 100 09/30/24 13:22 Oxygen Delivery Room Air 09/30/24 13:22 Imaging Data Radiologist's impression: ITS Impressions Hand X-Ray 09/30/24 14:29 Impression: No acute abnormality. No change from prior exam. Discharge Plan Discharge Clinical Impression: Hand pain Patient Disposition: Home, Self-Care Condition: Stable Additional Instructions: there is no fracture of your hand. Your ring was removed. Take Tylenol or ibuprofen as needed for pain. Patient Language: Portuguese Prescriptions: No Action hydroxychloroquine 200 mg tablet 200 mg PO DIRECTED azathioprine 50 mg tablet 25 mg PO DAILY alendronate 70 mg tablet 70 mg PO DAILY fluticasone propionate 50 mcg/actuation spray,suspension 2 spray INTRANASAL DAILY aripiprazole 2 mg tablet 2 mg PO DAILY peg 3350-electrolytes 236-22.74-6.74 -5.86 gram recon soln See Rx Instructions .ROUTE .COMPLEX Rx Instructions: Rx primidone 50 mg tablet 4 mg PO BID atorvastatin 20 mg tablet 1 mg PO DAILY lamotrigine 200 mg tablet 1 mg PO BID sertraline 100 mg tablet 1 mg PO DIRECTED gabapentin 100 mg capsule 2 mg PO HS propranolol 120 mg capsule,extended release 24 hr 1 mg PO DAILY sumatriptan succinate 100 mg tablet 100 mg PO DAILY loratadine 10 mg tablet 10 mg PO DAILY clonazepam 0.5 mg tablet 0.5 mg PO DAILY loperamide [Imodium A-D] 2 mg capsule 2 mg PO Q6H PRN (Reason: Diarrhea) leflunomide 20 mg tablet 20 mg PO DAILY Caltrate-D3 Plus Minerals 300 mg-800 unit -25 mg-0.5 mg tablet 1 tablet PO DAILY cyclobenzaprine 10 mg tablet 10 mg PO .pm PRN (Reason: Pain, Moderate) omeprazole 20 mg capsule,delayed release(DR/EC) 20 mg PO DAILY Follow-up/Referrals: UNKNOWN,DOCTOR [Primary Care Provider] - 1 Week
== END 2024-09-30 14:46 | disposition home or self-care (01) ==
PROVIDERS: Emergency Provider Emergency Medicine
DX: S69.92XA Unspecified injury of left wrist, hand and finger(s), initial encounter (principal); E11.9 Type 2 diabetes mellitus without complications; E78.00 Pure hypercholesterolemia, unspecified; E78.5 Hyperlipidemia, unspecified; M06.9 Rheumatoid arthritis, unspecified; M81.0 Age-related osteoporosis without current pathological fracture; G25.81 Restless legs syndrome; F41.9 Anxiety disorder, unspecified; F31.9 Bipolar disorder, unspecified; Z87.891 Personal history of nicotine dependence; Z87.440 Personal history of urinary (tract) infections; Z79.899 Other long term (current) drug therapy; W01.198A Fall on same level from slipping, tripping and stumbling with subsequent striking against other object, initial encounter
CPT/HCPCS: 73130; 99283

== ENCOUNTER 2024-10-07 12:30 | Emergency (ER) | payer MEDICARE, SELFPAY ==
--- NOTE | ~2024-10-07 | XR_ITS ---
EXAMINATION: XR chest 2V DATE: 10/07/2024 13:14 INDICATION: Cough and chest pain. TECHNIQUE: Frontal and lateral views of the chest were obtained. COMPARISON: Chest 2 views 03/08/2023 FINDINGS: There is no pneumonia, pleural effusion, or pneumothorax. The heart size is normal. There i s electronic device and anterior left chest with leads in the neck. IMPRESSION: 1. No acute cardiopulmonary disease. Reviewed, dictated and finalized at location A. ST EXAMINER
[2024-10-07 12:41] VITALS: BP 118/70; PULSE 70; RESP 16; TEMP 35.9; O2SAT 98
--- NOTE | 2024-10-07 13:03 | ED_ITS ---
HPI - URI/Sore Throat General Chief Complaint: Upper Respiratory Infection Stated Complaint: Cough Time Seen by Provider: 10/07/24 12:50 Source: patient Mode of arrival: ambulatory Limitations: no limitations History of Present Illness HPI Narrative: Sheri is a 69-year-old female patient presenting to the clinic today with complaints of cough, chest congestion, anterior chest wall pain, and shortness of breath. She reports symptoms started a week before [place]. States the pain is an ache in the anterior chest wall. Pain is worse with cough. Thinks she may have pneumonia. MD elicited complaint: cough, nasal congestion and other (Anterior chest pain, shortness of breath) Related Data Home Medications ?Medication ?Instructions ?Recorded ?Confirmed ?Last Taken ?Type atorvastatin 20 mg tablet 1 mg PO DAILY 05/01/21 10/07/24 Unknown History gabapentin 100 mg capsule 2 mg PO HS 05/01/21 10/07/24 Unknown History lamotrigine 200 mg tablet 1 mg PO BID 05/01/21 10/07/24 Unknown History primidone 50 mg tablet 4 mg PO BID 05/01/21 07/21/24 Unknown History propranolol 120 mg capsule,24 1 mg PO DAILY 05/01/21 10/07/24 Unknown History hr,extended release sertraline 100 mg tablet 1 mg PO DIRECTED 05/01/21 10/07/24 Unknown History clonazepam 0.5 mg tablet 0.5 mg PO DAILY 12/08/21 10/07/24 Unknown History loratadine 10 mg tablet 10 mg PO DAILY 12/08/21 07/21/24 Unknown History sumatriptan succinate 100 mg tablet 100 mg PO DAILY 12/08/21 10/07/24 Unknown History calcium 300 mg-D3 20 mcg-magnesium 1 tablet PO DAILY 02/03/23 10/07/24 Unknown History 25 mg-coppr 0.5 [id number] tablet (Caltrate-D3 Plus Minerals) cyclobenzaprine 10 mg tablet 10 mg PO .pm PRN Pain, Moderate 02/03/23 10/07/24 Unknown History omeprazole 20 mg capsule,delayed 20 mg PO DAILY 02/03/23 07/21/24 Unknown History release azathioprine 50 mg tablet 25 mg PO DAILY 04/18/24 10/07/24 Unknown History alendronate 70 mg tablet 70 mg PO DAILY 07/21/24 10/07/24 Unknown History aripiprazole 2 mg tablet 2 mg PO DAILY 07/21/24 10/07/24 Unknown History fluticasone propionate 50 2 spray intranasal DAILY 07/21/24 07/21/24 Unknown History mcg/actuation nasal spray,suspension peg 3350-electrolytes 236 See Rx Instructions .Route .COMPLEX 07/21/24 07/21/24 Unknown History gram-22.74 gram-6.74 gram-5.86 gram solution Allergies Allergy/AdvReac Type Severity Reaction Status Date / Time Penicillins Allergy Severe Swelling Verified 10/07/24 12:53 Sulfa (Sulfonamide Allergy Intermediate Rash Verified 10/07/24 12:53 Antibiotics) Review of Systems Review of Systems: Pertinent positives per HPI. Patient denies any fever, chills, rash, headache, visual changes, dizziness, cough, shortness of breath, chest pain, palpitations, nausea, vomiting, diarrhea, constipation, abdominal pain, or any urinary issues. PMFSH Past Medical History Medical History Restless leg syndrome Rheumatoid arthritis Arthritis Osteoporosis History of UTI Constipation Diarrhea High cholesterol History of falling Memory loss Chronic headaches Rib fracture Hx of migraines Diabetes Bipolar disorder Depression Anxiety Menopause History of alcohol abuse Sober for 9 years Bipolar depression Tremor hands HLD (hyperlipidemia) Surgical History Surgical History History of tonsillectomy History of hand surgery Left History of foot surgery Right x2 Family History Family History Father , Data 97 related to pneumonia Alzheimers disease Mother , Related to fall, Heart disease Unknown Hypertension Heart disease Diabetes mellitus High cholesterol Depression Arthritis Alcoholism Social History Social History Smoking packs per day: 2 Smoking cigarettes per day: 40.0 Years smoked: 24 Smoking pack-years: 48.00 Smoking status: Former smoker Tobacco type: cigarettes Second hand tobacco smoke exposure: No Smoking end date: 10/12/96 Alcohol intake: former 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od: Never True Current Housing: I Have Housing Concerned About Future Housing: No Difficulty Paying Gas/Electric Bills: No Difficulty Paying for Meds: No Currently Unemployed: No Education: Master's Degree or Higher Difficulty w/ Childcare or Family Care: No Living arrangements: with roommate(s) Additional occupation/education comments: Disable Gender identity (if verbalized by the patient): Female Sexual Orientation (if Verbalized by the Patient): Straight or Heterosexual Comments At the time of my signature, I reviewed and agree with the nursing past medical, surgical, social, and family history. There is no relevant family history pertinent to the patient complaint. Exam Narrative: General: Well-developed, well nourished, in no apparent distress Head: Normocephalic, atraumatic Eyes: Pupils equally round and reactive to light bilaterally, EOM intact, sclera and conjunctive clear, no discharge, lids normal Ears: TMs intact and congested, ear canals clear, no drainage, grossly hearing normal. Nose: Nares patent, clear nasal discharge, no inflammation, no sinus tenderness. Mouth: Oral pharynx without lesions or masses, good dentition, MMM. Neck: Supple, trachea midline, no enlargement of anterior or posterior cervical nodes, no thyroid masses or goiter palpable. Cardio: Regular rate and rhythm, s1 and s2 normal, no murmur appreciated. Resp: Crackles heard over the right lower lobe, no rhonchi, rales, wheezing or rubs Course Course Emergency Course: Portions of this record may have been created with voice recognition software. Level of Care: Express Care Visit Vital Signs Vital signs: Vital Signs Temperature 35.9 C L 10/07/24 12:41 Pulse Rate 70 10/07/24 12:41 Respiratory Rate 16 10/07/24 12:41 Blood Pressure 118/70 10/07/24 12:41 Pulse Oximetry 98 10/07/24 12:41 Oxygen Delivery Room Air 10/07/24 12:41 Temperature 35.9 C L 10/07/24 12:41 Pulse Rate 70 10/07/24 12:41 Respiratory Rate 16 10/07/24 12:41 Blood Pressure 118/70 10/07/24 12:41 Pulse Oximetry 98 10/07/24 12:41 Oxygen Delivery Room Air 10/07/24 12:41 Vital signs reviewed MDM - URI/Sore Throat MDM Narrative Medical decision making narrative: At the time of visit patient is resting comfortably on the exam table. Patient appears to be nontoxic. EKG: EKG is atrial and ventricular paced. Heart rate 61 beats per minute. No obvious ST elevation or depression noted. Diagnostics: Chest x-rays negative for any acute cardiopulmonary process. Plan: I suspect patient has sinusitis bronchitis with chest wall pain. Prescription for prednisone, albuterol inhaler, and azithromycin was sent to the pharmacy. Supportive measures were discussed with the patient and they voiced understanding discharge instructions and agrees to treatment plan. Return preca utions reviewed Differential Diagnosis Differential diagnosis: Likely upper respiratory infection, otitis media, sinusitis, viral infection, bronchitis, influenza, pharyngitis and other (COVID) Imaging Data Radiologist's impression: ITS Impressions Chest X-Ray 10/07/24 13:17 IMPRESSION: 1. No acute cardiopulmonary disease. Discharge Plan Discharge Clinical Impression: Sinobronchitis, Acute chest wall pain Patient Disposition: Home, Self-Care Condition: Stable Instructions: Antibiotic Form, Chest Wall Pain (ED) Additional Instructions: Chest x-rays negative for any acute cardiopulmonary disease. EKG shows atrial and ventricular paced rhythm with heart rate of 61 beats per minute. No ST elevation or depression noted. Take prescription medications only as prescribed-azithromycin, prednisone, and albuterol inhaler Increase fluids and stay well hydrated Tylenol/motrin for pain/fever Flonase and OTC antihistamines as directed Vicks vapor rub to open sinuses Sinus rinses for congestion Cepacol spray, cough drops, throat lozenges, warm tea with honey/lemon, gargle salt water to soothe throat BRAT diet for diarrhea Clear liquids x 24 hours then advance as tolerated for nausea/vomiting Go to the ED if you develop a worsening in your condition- high fever not controlled by Tylenol or Motrin, dehydration, weakness, lethargy, shortness of breath, or chest pain. Follow up with your PCP in 3-5 days if symptoms persist. Patient Language: Northern Irish Prescriptions: New azithromycin 250 mg tablet See Rx Instructions .ROUTE .COMPLEX Qty: 6 0RF Rx Instructions: For 250 mg dose pack: take 500 mg today (day 1), then 250 mg for 4 days (days 2-5) prednisone 20 mg tablet 40 mg PO DAILY 5 Days Qty: 10 0RF albuterol sulfate 90 mcg/actuation HFA aerosol inhaler 2 puff inhalation Q4-6H PRN (Reason: shortness of breath or wheezing) 30 Days Qty: 8.5 0RF No Action azathioprine 50 mg tablet 25 mg PO DAILY alendronate 70 mg tablet 70 mg PO DAILY fluticasone propionate 50 mcg/actuation spray,suspension 2 spray INTRANASAL DAILY aripiprazole 2 mg tablet 2 mg PO DAILY peg 3350-electrolytes 236-22.74-6.74 -5.86 gram recon soln See Rx Instructions .ROUTE .COMPLEX Rx Instructions: Rx primidone 50 mg tablet 4 mg PO BID atorvastatin 20 mg tablet 1 mg PO DAILY lamotrigine 200 mg tablet 1 mg PO BID sertraline 100 mg tablet 1 mg PO DIRECTED gabapentin 100 mg capsule 2 mg PO HS propranolol 120 mg capsule,extended release 24 hr 1 mg PO DAILY sumatriptan succinate 100 mg tablet 100 mg PO DAILY loratadine 10 mg tablet 10 mg PO DAILY clonazepam 0.5 mg tablet 0.5 mg PO DAILY Caltrate-D3 Plus Minerals 300 mg-800 unit -25 mg-0.5 mg tablet 1 tablet PO DAILY cyclobenzaprine 10 mg tablet 10 mg PO .pm PRN (Reason: Pain, Moderate) omeprazole 20 mg capsule,delayed release(DR/EC) 20 mg PO DAILY Follow-up/Referrals: PHYSICIAN,CERTIFIED REGISTERED DENTAL ASSISTANT [Primary Care Provider] - Time of Disposition: 13:52 Quality NIHSS Nursing Documentation ED NIHSS nursing documentation: reviewed/agree
--- NOTE | 2024-10-07 13:03 | ECG_ITS ---
Test Date: 2024-10-07 13:34:06 Measurements Intervals [place] Rate: 61 P: -89 CA: 358 QRS: 20 QRSD: 86 T: 32 QT: 418 QTc: 422 Interpretive Statements PROBABLE SINUS RHYTHM ARTIFACT LIMITS INTERPRETATION. NO FURTHER INTERPRETATION CAN BE PROVIDED ABNORMAL ECG Electronically Signed On 10-07-2024 17:26:53 POULTRY DRESSER by Cornelio Goyal M.D.
== END 2024-10-07 13:58 | disposition home or self-care (01) ==
PROVIDERS: Emergency Provider Nurse Practitioner Family
DX: J40 Bronchitis, not specified as acute or chronic (principal); R07.89 Other chest pain; M06.9 Rheumatoid arthritis, unspecified; E11.9 Type 2 diabetes mellitus without complications; Z87.891 Personal history of nicotine dependence; Z79.899 Other long term (current) drug therapy
CPT/HCPCS: 71046; 93005; 99213; G0463

== ENCOUNTER 2024-12-13 20:53 | Emergency (ER) | payer MEDICARE, SELFPAY ==
--- NOTE | ~2024-12-13 | XR_ITS ---
HISTORY: fall, pain COMPARISON: 12/08/2021 TECHNIQUE: 3 views of the left wrist were performed. FINDINGS: Acute comminuted fracture of the mid to distal shaft of the fourth metacarpal is identified. No additional fracture deformities are identified. The carpal arcs are intact. Mild radiocarpal joint space narrowing with sclerosis of the distal radius is present. The remaining visualized joint spaces are otherwise preserved. IMPRESSION: Acute comminuted fracture of the mid to distal shaft of the fourth metacarpal Reviewed, dictated and finalized at location A. ETING RESEARCH COORDINATOR
--- OUTSIDE RECORDS SUMMARY | 2024-12-13 20:55 | XMS_ITS | Encounter Summary ---
Author Organization [facility] Address [address] [place] [address] Care Team Providers Care Surgical Services Manager Name Role Phone Kerry Coffman Primary Care Provider [phone] Reason for Visit * Reason Onset Date Comments Appointment 10/20/2024 Encounter Details Date Type Department Care Team (Late st Contact Info) Description 10/20/2024 Telephone [facility] - Centralized Scheduling [address] [place] [phone] Moncho Salcedo, LETTERPRESS SETTER-METAL MINE INSPECTOR [address] [phone] Appointment Social History Tobacco Use Types Packs/Day Years Used Date Smoking Tobacco: Former Cigarettes Q uit: 1995 Smokeless Tobacco: Never Alcohol Use Standard Drinks/Week Comments Never 0 (1 standard drink = 0.6 oz pure alcohol) 13 years sober on April 15, 2024 PHQ-2 Answer Date Recorded Patient Health Questionnaire-2 Score 2 09/19/2024 Sex and Gender Information Value Date Recorded Sex Assigned at Female 09/16/2024 2:41 PM KINDER TEACHER Gender Identity Female 09/16/2024 2:41 PM KINDER TEACHER Sexual Orientation Straight 09/16/2024 2: 41 PM KINDER TEACHER documented as of this encounter Functional Status Functional Status Response Date of Assess ment Is person deaf or have serious hearing difficult y? No 07/29/2024 Is person blind or have serious difficulty seein g? No 07/29/2024 Does person have serious dif ficulty walking/climbing stairs? No 07/29/2024 Does person have difficulty dressing/bathing? No 07/29/2024 Does person have difficulty doing errands alone? No 07/29/2024 Cognitive Status Response Date of Assessm ent Does person have difficulty concentrating/remembering/making decisions? No 07/29/2024 documented as of this encounter Miscellaneous Notes * Telephone Encounter - [facility] - 10/20/2024 3:16 PM CST Patient called to schedule for a Short Procedure with SPEECH TEACHER Settu in November. ER TEACHER documented in this encounter Plan of Treatment Upcoming Encounters Date Type Department Care Team (Late st Contact Info) Description 12/15/2024 2:20 PM KINDER TEACHER Office Visit [facility] - Endocrinology [address] [place] [phone] Marquise Adames MD [address] [place] [address] [place] [address] 01/04/2025 9:15 AM CDT Office Visit [facility] - Orthopedics [address] [place] [phone] Cornelio Lima MD [facility] [place] [address] 01/25/2025 10:30 AM CDT Office Visit [facility] - GI [address] [place] [phone] Yolanda Greer, LETTERPRESS SETTER-METAL MINE INSPECTOR [address] [place] [phone] 02/09/2025 11:15 AM CDT [facility] Ophthal[facility] [address] [place] [phone] Percy Matute MD [address] [place] [address] [place] [phone] 02/09/2025 4:00 PM CDT Office Visit [facility] - Allergy [address] [place] [phone] Papito Morales MD [address] [place] [address] 2L DIV OF ALLERGY/[place] [address] 03/02/2025 1:00 PM CDT Office Visit [facility] - Neurology [address] [place] [address], [place] [phone] Moncho Salcedo APRN-ARELY [address] [place] [address] 1L [place] [address] 03/20/2025 11:00 AM CDT Office Visit [facility] - Internal Med [address] [place] [phone] Kerry Coffman DO [address] [place] [address] 2L DIV [place] [address] 04/13/2025 3:00 PM CDT Office Visit [facility] - Allergy [address] [place] [phone] Papito Morales MD [address] [place] [address] 2L DIV OF ALLERGY/[place] [address] documented as of this encounter Goals Goal Patient Goal Type Associated Problems Recent Progress Patient-Stated? Author Medication Management General On track( 025 10:42 AM KINDER TEACHER) Marion Scott, RN Note: Expected end date: ongoing Interventions: Take all medications as prescribed documented as of this encounter Visit Diagnoses Not on filedocumented in this encounter Additional Health Concerns Infection Onset Date Last Indicated Resolved Time CDIFF Under Investigation 10/26/2024 11/07/2024 4:33 AM KINDER TEACHER CDIFF Under Investigation 11/07/2024 11/07/2024 5:38 PM KINDER TEACHER documented as of this encounter Care Teams Surgical Services Manager Relationship Specialty Start Date End Date Kerry Coffman DO [address] OF [facility] [place] [address] PCP - General Internal Medicine 12/15/23 documented as of this encounter
--- OUTSIDE RECORDS SUMMARY | 2024-12-13 20:55 | XMS_ITS | Encounter Summary ---
Author Organization [facility] Address [address] [facility] [place] [address] Care Team Providers Care Protein Specialist Name Role Phone [place] BeachKerry reddy Primary Care Provider [phone] Encounter Details Date Type Department Care Team (Late st Contact Info) Description 12/13/2024 Orders Only [facility] - Neurology [address] [facility], [place] [phone] Moncho Salcedo, THERMODYNAMICS ENGINEER-ADVERTISING SALES AGENT [address] [place] [address] [place] [phone] Cognitive decline Social History Tobacco Use Types Packs/Day Years Used Date Smoking Tobacco: Former Cigarettes Q uit: 1995 Smokeless Tobacco: Never Alcohol Use Standard Drinks/Week Comments Never 0 (1 standard drink = 0.6 oz pure alcohol) 13 years sober on April 15, 2024 AUDIT-C Answer Date Recorded Q1: How often do you have a drink containing alcohol? Never 12/08/2024 Q2: How many drinks containi ng alcohol do you have on a typical day when you are drinking? Patient does not drink Q3: How often do you have si x or more drinks on one occasion? Never 12/08/2024 PHQ-2 Answer Date Recorded Patient Health Questionnaire-2 Score 2 09/19/2024 Sex and Gender Information Value Date Recorded Sex Assigned at Female 09/16/2024 2:41 PM THEATRE ARTS PROFESSOR Gender Identity Female 09/16/2024 2:41 PM THEATRE ARTS PROFESSOR Sexual Orientation Straight 09/16/2024 2: 41 PM THEATRE ARTS PROFESSOR documented as of this encounter Functional Status Functional Status Response Date of Assess ment Is person deaf or have serious hearing difficult y? No 12/08/2024 Is person blind or have serious difficulty seein g? No 12/08/2024 Does person have serious dif ficulty walking/climbing stairs? No 12/08/2024 Does person have difficulty dressing/bathing? No 12/08/2024 Does person have difficulty doing errands alone? No 12/08/2024 Cognitive Status Response Date of Assessm ent Does person have difficulty concentrating/remembering/making decisions? No 12/08/2024 documented as of this encounter Plan of Treatment Upcoming Encounters Date Type Department Care Team (Late st Contact Info) Description 12/15/2024 2:20 PM THEATRE ARTS PROFESSOR Office Visit [facility] - Endocrinology [address] [place] [phone] Marquise Adames MD [address] [place] [address] [place] [address] 01/04/2025 9:15 AM CDT Office Visit [facility] - Orthopedics [address] [place] [phone] Cornelio Lima MD [facility] [place] [address] 01/25/2025 10:30 AM CDT Office Visit [facility] - GI [address] [place] [phone] Yolanda Greer, THERMODYNAMICS ENGINEER-ADVERTISING SALES AGENT [address] [place] [phone] 02/09/2025 11:15 AM CDT Office Visit [facility] - Ophthalmology [address] [place] [phone] Percy Matute MD [address] [place] [address] [place] [phone] 02/09/2025 4:00 PM CDT Office Visit [facility] - Allergy [address] [place] [address], [place] [phone] Papito Morales MD [address] [place] [address] 2L DIV OF ALLERGY/[place] [address] 03/02/2025 1:00 PM CDT Office Visit [facility] - Neurology [address] [place] [address], [place] [phone] Denisse Lisandrokamhernan, THERMODYNAMICS ENGINEER-ADVERTISING SALES AGENT [address] [place] [address] 1L [place] [phone] 03/20/2025 11:00 AM CDT Office Visit [facility] - Internal Med [address] [place] [phone] Kerry Coffman DO [address] [place] [address] 2L [place] [address] 04/13/2025 3:00 PM CDT Office Visit [facility] - Allergy [address] [place] [phone] Papito Morales MD [address] [place] [address] 2L DIV [place]ERGY/[place] [address] documented as of this encounter Goals Goal Patient Goal Type Associated Problems Recent Progress Patient-Stated? Author Medication Management General On track( 025 10:42 AM THEATRE ARTS PROFESSOR) Marion Scott, RN Note: Expected end date: ongoing Interventions: Take all medications as prescribed documented as of this encounter Visit Diagnoses Diagnosis Cognitive decline- Primary Unspecified persistent mental disorders due to conditions classified elsewhere documented in this encounter Care Teams Protein Specialist Relationship Specialty Start Date End Date Kerry Coffman DO [facility] [address] [place] [address] PCP - General Internal Medicine 12/15/23 documented as of this encounter
--- OUTSIDE RECORDS SUMMARY | 2024-12-13 20:55 | XMS_ITS | Continuity of Care Document ---
Author Organization [employer] [facility] Address [address] [place] [address] Phone Care Team Providers Care Boner Meat Name Role Phone Sandie Briggs MD Unavailable [...] Encounter [facility], [address], [place], [place], [address] , [place] tel: [phone] [facility] No Information 4 Tepe Sandie. [address], [place], [place], [address], [place]. [phone] OFFICE/OUTPATI ENT VISIT, EST [facility], [address], [place], [place], [address] , [place] tel: [phone] [facility] medication refill (chief complaint) Bipolar disorderHigh risk medication use 3 No Information [facility], [address], [place], [place], [address] , [place] tel: [phone] Dental Soulard Velasquez Dental examination 2 No Information OFFICE OUTPT EST 25 MIN [facility], [address], [place], [place], [address] , [place] tel: [phone] [facility] referrals (chief complaint)b ipolar disorder (chief complaint) Bipolar disorderAlcohol abuseRoutine adult health maintenanceNeed for prophylactic vaccination and inoculation against Streptococcus pneumoniae [pneumococcus]C ommon wart 2 No Information OFFICE/OUTPATI ENT VISIT, EST [facility], [address], [place], [place], [address] , [place] tel: [phone] [facility] test results (chief complaint) Genital herpes, unspecifiedBeni gn neoplasm of vulvaNeed for prophylactic vaccination and inoculation, influenza 2 No Information [facility], [address], [place], [place], [address] , [place] tel: [phone] Dental Soulard Velasquez Dental examination 2 No Information OFFICE/OUTPATI ENT VISIT, EST [facility], [address], [place], [place], [address] , [place] tel: [phone] [facility] irritated spot on vulva (chief complaint) Benign neoplasm of vulva 2 No Information 1ST COMPRE PREV MED E/M NEW PT 40-64 [facility], [address], [place], [place], [address] , [place] tel: [phone] [facility] annual visit (chief complaint) Routine gynecological examination 2 No Information [facility], [address], [place], [place], [address] , [place] tel: [phone] Dental Soul[facility] Velasquez No Information 1 No Information OFFICE OUTPT EST 25 MIN [facility], [address], [place], [place], [address] , [place] tel: [phone] [facility] pain (chief complaint)E R f/u (chief complaint) Other and unspecified alcohol dependence, continuous drinking behavior 1 No Information ENVIRONMENTAL IVNTJ MGMT PURPOSES PSYC PT [facility], [address], [place], [place], [address] , [place] tel: [phone] [facility] No Information 0 No Information FAMILY PSYCHOTHERAPY (CONJOINT PSYCHOTHERAPY) (WITH PATIENT PRESENT) [facility], [address], [place], [place], [address] , [place] tel: [phone] [facility] substance abuse (chief complaint) No Information 0 No Information OFFICE/OUTPATI ENT VISIT, EST [facility], [address], [place], [place], [address] , [place] tel: [phone] [facility] alcohol (chief complaint) Other and unspecified alcohol dependence, continuous drinking behavior 0 No Information OFFICE/OUTPATI ENT VISIT, EST [facility], [address], [place], [place], [address] , [place] tel: [phone] [facility] dizziness (chief complaint)a lcohol abuse (chief complaint) Other and unspecified alcohol dependence, continuous drinking behaviorDizzine ss and giddiness 0 No Information [facility], [address], [place], [place], [address] , [place] tel: [phone] [facility] depression (chief complaint) Major depressive affective disorder, recurrent episode, moderate degreeOther and unspecified alcohol dependence, continuous drinking behaviorUnspeci fied personality disorder 0 No Information OFFICE/OUTPATI ENT VISIT, NEW [facility], [address], [place], [place], [address] , [place] tel: [phone] [facility] REFERRED BY [facility]A DE DAY (chief complaint)M EDICATION NEEDED (chief complaint) Issue of repeat prescriptions 0 Juan Pablo Schwarz [address], [place], [place], [address], [place]. [phone] [facility], [address], [place], [place], [address] , [place] tel: [phone] Care Guidelines Aly-0 1-190 1 No Information [...] Record Payers Payer name Insurance type Covered alliance party ID Authoriza tion(s) No Information Social History Type Description Quantity Date Captured Comments Alcohol Use Details Unknown Caffeine Use Details Unknown Tobacco Use Status No Information Smoking Status No Information Sex Female Chief Complaint And Reason For Visit No Information Reason For Referral Reason For Referral No Information Plan Of Treatment Date Type Action Status Goal Hemoglobin A1C. Due on due Goal TSH. Due on due Goal Breast exam. Due on due Goal PAP. Due on due Goal Influenza Vaccine. Due on due Goal BMP fasting. Due on due Goal H&P. Due on due Goal AST. Due on due Goal ALT. Due on due Referral Referred To: [facility] Ordered: Referral: [facility]. Psychiatry. Evaluate and treat. ordered Referral Referred To: Josse Carrillo MD [address] [place], [place], [phone] Ordered: Referral: Josse Carrillo MD. Psychiatry. Evaluate and treat. ordered Referral Referred To: [facility] [address], [place], [phone] Ordered: Referral: [facility] [place]. Radiology. Diagnostic testing. Appointment date/timeframe: 04/12/2012 ordered Referral Referred To: Anupam Sher MD [address] [place], [place], [phone] Ordered: Referral: Anupam Sher MD. Psychiatry. Appointment [...]
--- OUTSIDE RECORDS SUMMARY | 2024-12-13 20:55 | XMS_ITS | Clinical Summary ---
Author Organization [facility] Address [address] [place] [address] Phone Care Team Providers Care Prisoner Classification Interviewer Name Role Phone Joan Robins MD Primary Care Provider Allergies Active Allergy Reactions Criticality Noted Date Comments Penicillins Unknown 10/21/2018 Sulfa Antibiotics Rash 10/21/2018 Medications METFORMIN HCL PO Take by mouth. Active SERTRALINE HCL PO Take by mouth. Active ondansetron (ZOFRAN) 4 MG Tablet Take 1 Tab by mouth every 6 hours as needed for Nausea - 1st line. 10 Tab 10/21/2018 Active Social History Tobacco Use Types Packs/Day Years Used Date Smoking Tobacco: Never Smokeless Tobacco: Never Alcohol Use Standard Drinks/Week Comments No 0 (1 standard drink = 0.6 oz pur e alcohol) Comments No Sex and Gender Information Value Date Recorded Sex Assigned at Not on file Legal Sex Female 10:36 AM SCREEN ROOM OPERATOR Gender Identity Not on file Sexual Orientation Not on file Last Filed Vital Signs Vital Sign Reading Time Taken Comments Blood Pressure 125/81 10/21/2018 12:15 PM SCREEN ROOM OPERATOR Pulse 72 10/21/2018 12:25 PM SCREEN ROOM OPERATOR Temperature 36.3 C (97.3 F) 10/21/2018 11:32 AM SCREEN ROOM OPERATOR Respiratory Rate 18 10/21/2018 12:25 PM SCREEN ROOM OPERATOR Oxygen Saturation 99% 10/21/2018 12:25 PM SCREEN ROOM OPERATOR Inhaled Oxygen Concentration - - Weight 60.3 kg (133 lb) 10/21/2018 11:32 AM SCREEN ROOM OPERATOR Height 170.2 cm (5' 7 ) 10/21/2018 11:32 AM SCREEN ROOM OPERATOR Body Mass Index 20.83 10/21/2018 11:32 AM SCREEN ROOM OPERATOR Plan of Treatment Health Maintenance Due Date Last Done Comments DEXA Bone Density 1955 Hepatitis C Virus (HCV) Screening 1955 Colonoscopy 2000 Colorectal Cancer Screening 2000 Cologuard 2005 Immunochemical Fecal Occult Blood 2005 Mammogram 2005 Zoster Immunization (1 of 2) 2005 Hepatitis B Immunization (3 of 3 - 19+ 3-dose series) 01/28/2017 09/25/2016, 07/30/2016 Pneumococcal Immunization (50+ years) (2 of 2 - PCV) 2019 2018 Influenza Immunization (#1) 06/12/202407/12, 08/12/2017, 06/20/2016, Additional history exists SARS-COV-2 Immunization ( season) 2024 01/18/2022, 08/06/2021, 12/18/2020 Respiratory Syncytial Virus (RSV) Immunization (Adult) (1 - 1-dose 75+ series) 2030 DTaP/Tdap/Td Immunization Discontinued 06/17/2014 TdaP Immunization Completed 06/17/2014 Pneumococcal Immunization Combined Discontinued 2018 Meningococcal Immunization (ACWY) Aged Out No longer eligible based on patient's age to complete this topic Rotavirus Immunization Aged Out No lo nger eligible based on patient's age to complete this topic Insurance MEDICAID [facility] [employer] Care Teams Prisoner Classification Interviewer Relationship Specialty Start Date End Date Joan Robins MD [address] [phone] PCP - General Internal Medicine 10/21/18
--- OUTSIDE RECORDS SUMMARY | 2024-12-13 20:55 | XMS_ITS | Encounter Summary ---
Author Organization [facility] Address [address] [facility] [place] [address] Care Team Providers Care Parking Lot Chauffeur Name Role Phone [place] CornerKerry reddy Primary Care Provider [phone] Encounter Details Date Type Department Care Team (Late st Contact Info) Description 02/10/2024 Telephone [facility] - Neurology [address] [facility], [place]), [place] [address] Hyacinth Arriaga, TELEHEALTH NURSE-CHIMNEY BUILDER BRICK [address] [place] [address] [place] [address] Social History Tobacco Use Types Packs/Day Years Used Date Smoking Tobacco: Never Assessed Sex and Gender Information Value Date Recorded Sex Assigned at Female 09/16/2024 2:41 PM SUPERVISOR PACKING Gender Identity Female 09/16/2024 2:41 PM SUPERVISOR PACKING Sexual Orientation Straight 09/16/2024 2: 41 PM SUPERVISOR PACKING documented as of this encounter Functional Status Functional Status Response Date of Assess ment Is person deaf or have serious hearing difficult y? No 03/24/2022 Is person blind or have serious difficulty seein g? No 03/24/2022 Does person have serious dif ficulty walking/climbing stairs? No 03/24/2022 Does person have difficulty dressing/bathing? No 03/24/2022 Does person have difficulty doing errands alone? No 03/24/2022 Cognitive Status Response Date of Assessm ent Does person have difficulty concentrating/remembering/making decisions? No 03/24/2022 documented as of this encounter Miscellaneous Notes * Telephone Encounter - Giselle Crook - 02/10/2024 9:35 AM CDT Pt called yesterday because her insurance will not pay for her sumatriptan and she really needs it and wants to call and talk to her insurance company and it works well for her. documented in this encounter Plan of Treatment Upcoming Encounters Date Type Department Care Team (Late st Contact Info) Description 12/15/2024 2:20 PM SUPERVISOR PACKING Office Visit [facility] - Endocrinology [address] [place] [phone] Marquise Adames MD [address] [place] [address] [place] [address] 01/04/2025 9:15 AM CDT Office Visit [facility] - Orthopedics [address] [place] [phone] Cornelio Lima MD [facility] [place] [place] [address] 01/25/2025 10:30 AM CDT Office Visit [facility] - GI [address] [place] [phone] Yolanda Greer, TELEHEALTH NURSE-CHIMNEY BUILDER BRICK [facility] [place] [place] [phone] 02/09/2025 11:15 AM CDT Office Visit [facility] - Ophthalmology [address] [place] [phone] Percy Matute MD [address] [place] [address] [place] [phone] 02/09/2025 4:00 PM CDT Office Visit [facility] - Allergy [address] [place] [phone] Papito Morales MD [address] [place] [address] 2L DIV OF ALLERGY/[place] [address] 03/02/2025 1:00 PM CDT Office Visit [facility] - Neurology [address] [place] [address], [place] [address] Moncho Salcedo, TELEHEALTH NURSE-CHIMNEY BUILDER BRICK [address] [place] [address] 1L [place] [phone] 03/20/2025 11:00 AM CDT Office Visit [facility] - Internal Med [address] [place] [phone] Kerry Coffman DO [address] [place] [address] 2L DIV [place] [address] 04/13/2025 3:00 PM CDT Office Visit [facility] - Allergy [address] [place] [phone] Papito Morales MD [address] [place] [address] 2L DIV OF ALLERGY/[place] [address] documented as of this encounter Visit Diagnoses Not on filedocumented in this encounter Additional Health Concerns Infection Onset Date Last Indicated Resolved Time CDIFF Under Investigation 07/20/2024 07/20/2024 4:33 AM CDT CDIFF Under Investigation 10/26/2024 11/07/2024 4:33 AM SUPERVISOR PACKING CDIFF Under Investigation 11/07/2024 11/07/2024 5:38 PM SUPERVISOR PACKING documented as of this encounter Care Teams Parking Lot Chauffeur Relationship Specialty Start Date End Date Kerry Coffman DO [address] [place] [address] 2L DIV [place] [address] PCP - General Internal Medicine 12/15/23 documented as of this encounter
--- OUTSIDE RECORDS SUMMARY | 2024-12-13 20:55 | XMS_ITS | Encounter Summary ---
Author Organization [facility] Address [address] [place] [address] Care Team Providers Care Home Comfort Advisor Name Role Phone Joan Robins MD Primary Care Provider Kerry Coffman DO Primary Care Provider [phone] Encounter Details Date Type Department Care Team (Late st Contact Info) Description 12/18/2021 Telephone [facility] [address] [place], [place] [phone] Rissa Vo MD [address] [place] [address] Social History Tobacco Use Types Packs/Day Years Used Date Smoking Tobacco: Former Smokeless Tobacco: Never Alcohol Use Standard Drinks/Week Comments Never 0 (1 standard drink = 0.6 oz pur e alcohol) Sex and Gender Information Value Date Recorded Sex Assigned at Female 09/16/2024 2:41 PM UNDER GROUND MINER Gender Identity Female 09/16/2024 2:41 PM UNDER GROUND MINER Sexual Orientation Straight 09/16/2024 2: 41 PM UNDER GROUND MINER COVID-19 Exposure Response Date Recorded In the last month, have you been in contact with someone who was confirmed or suspected to have Coronavirus / COVID-19? No / Unsure 12/19/2021 5:58 AM UNDER GROUND MINER documented as of this encounter Patient Instructions * Patient Instructions* Donny Elliott - 12/18/2021 6:58 AM UNDER GROUND MINER Pt was bumped from 03/17/2022 DBN appt. [facility] does not schedule for these appt types. Please reschedule from the bump list. R GROUND MINER documented in this encounter Plan of Treatment Upcoming Encounters Date Type Department Care Team (Late st Contact Info) Description 12/15/2024 2:20 PM UNDER GROUND MINER Office Visit [facility] - Endocrinology [address] [place] [phone] Marquise Adames MD [address] [place] [address] 2L Div [place] [address] 01/04/2025 9:15 AM CDT Office Visit [facility] - Orthopedics [address] [place] [phone] Cornelio Lima MD [address] [place] [address] 01/25/2025 10:30 AM CDT Office Visit [facility] - GI [address] [place] [phone] Yolanda Greer, RONEL-ROUND CUTTER OPERATOR [address] [place] [phone] 02/09/2025 11:15 AM CDT Office Visit [facility] - Ophthalmology [address] [place] [phone] Percy Matute MD [address] [place] [address] [place] [phone] 02/09/2025 4:00 PM CDT Office Visit [facility] - Allergy [address] [place] [phone] Papito Morales MD [address] [place] [address] 2L DIV OF ALLERGY/[place] [address] 03/02/2025 1:00 PM CDT Office Visit [facility] - Neurology [address] [place] [address], [place] [phone] Moncho Salcedo, COMIC ARTIST-ROUND CUTTER OPERATOR [address] [place] [address] 1L [place] [phone] 03/20/2025 11:00 AM CDT Office Visit [facility] - Internal Med [address] [place] [address], [place] [phone] Kerry Coffman DO [address] [place] [address] 2L DIV [place] [address] 04/13/2025 3:00 PM CDT Office Visit [facility] - Allergy [address] [place] [address], [place] [address] Papito Morales MD [address] [place] [address] 2L DIV OF ALLERGY/[place] [address] documented as of this encounter Visit Diagnoses Not on filedocumented in this encounter Additional Health Concerns Infection Onset Date Last Indicated Resolved Time CDIFF Under Investigation 07/20/2024 07/20/2024 4:33 AM CDT CDIFF Under Investigation 10/26/2024 11/07/2024 4:33 AM UNDER GROUND MINER CDIFF Under Investigation 11/07/2024 11/07/2024 5:38 PM UNDER GROUND MINER documented as of this encounter Care Teams Home Comfort Advisor Relationship Specialty Start Date End Date Joan Robins MD [address] [place], [place] [phone] PCP - General 02/14/19 12/14/23 Kerry Coffman DO [address] [facility] [address] [facility] [place] [address] PCP - General Internal Medicine 12/15/23 documented as of this encounter
[2024-12-13 20:56] VITALS: BP 105/65; PULSE 76; RESP 20; TEMP 36.1; O2SAT 100
--- OUTSIDE RECORDS SUMMARY | 2024-12-13 20:56 | XMS_ITS | Clinical Summary ---
Author Organization [facility] [employer] Address [address] [place] [address] Care Team Providers Care Infrastructure Technician Name Role Phone India HookKerry reddy Primary Care Provider [phone] Source Comments [facility] [employer],non-owned Affiliates and Associated Physician Practices is amultiple site organization consisting of ambulatory clinics and hospital sitesin [place], [place], [place] and [place]. This disclosure is being madepursuant to the Care Everywhere program and may not contain all information available regarding this patient. Last updated 18.[facility] Allergies Active Allergy Reactions Criticality Noted Date Comments Penicillins Anaphylaxis High 10/21/2018 Sulfa Drugs Rash Medium 10/21/2018 Medications * Be aware that medications may not be up to date on this document. Alwaysverify current medications with the patient. Medication Sig Dispensed Refills Start Date End Date Status propranolol CR 24hr (INDERAL LA) 120 MG capsule Take 1 (one) capsule by mouth once daily 11/08/2019 Active sertraline (ZOLOFT) 100 MG tablet Take 1 (one) tablet by mouth 2 times daily 11/08/2019 Active leflunomide (ARAVA) 20 MG tablet Take 1 (one) tablet by mouth once daily 03/13/2022 Active loratadine (CLARITIN) 10 MG tablet Take 1 (one) tablet by mouth once daily 01/17/2022 Active Calcium Carbonate (CALTRATE 600 PO) Take 1 tablet by mouth 2 times daily Active Lancets (ONETOUCH DELICA PLUS 33G EXTRA FINE LANCET)Indications :Type 2 diabetes mellitus with hyperglycemia, without long-term current use of insulin (HCC) Use 1 Each 2 times daily 12/08/2022 Active Cyanocobalamin (Vitamin B12) 500 MCG TABS Take 500 mcg by mouth once daily Active loperamide (Imodium) 2 MG capsule Take 1 (one) capsule by mouth 2 times daily as needed Active pseudoephedrine CR 12hr (Sudafed) 120 MG tablet Take 1 (one) tablet by mouth as needed Active hydroxychloroquine (Plaquenil) 200 MG tablet Take 1.5 (one and one-half) tablets by mouth once daily 12/09/2023 Active azaTHIOprine (Imuran) 50 MG tablet Take 0.5 (one-half) tablet by mouth once daily 03/15/2024 Active lamoTRIgine (LaMICtal) 200 MG tabletIndications: Bipolar affective disorder, remission status unspecified ([facility]) Take 1 (one) tablet by mouth 2 times daily 06/17/2024 Active alendronate (Fosamax) 70 MG tabletIndications: Age-related osteoporosis with current pathological fracture, initial encounter Take 1 (one) tablet by mouth every 7 days before meal Take in morning with full glass of water on empty stomach and remain upright for 30 min 12 tablet 11 06/17/2024 Active abatacept (Orencia) infusion 500 (five hundred) mg by Intravenous route every 30 days Active blood glucose (Anturis Ultra) test stripIndications:T ype 2 diabetes mellitus with hyperglycemia, without long-term current use of insulin ([facility]) USE 1 STRIP TO CHECK GLUCOSE TWICE DAILY 100 strip 11 07/27/2024 Active SUMAtriptan (Imitrex) 100 MG tabletIndications: Migraine without aura and without status migrainosus, not intractable Take 1 (one) tablet by mouth as needed for Migraine (take one with onset of headache, can repeat in 2 hours if needed, maximum of 2 in 24 hours.) No more than 2 doses in 24 hours. 9 tablet 4 07/25/2024 Active gabapentin (Neurontin) 100 MG capsuleIndications :Headache Take 2 (two) capsules by mouth 3 times daily Reasons: Headache 180 capsule 5 07/25/2024 Active Additional Information Patient taking differently:200 mg Oral2 TIMES DAILY, Indications: Headache, Reported on 10/26/2024 ARIPiprazole (Abilify) 2 MG tablet Take 1 (one) tablet by mouth every morning 07/25/2024 Active latanoprost (Xalatan) 0.005 % ophthalmic solution Instill 1 (one) drop into both eyes at bedtime 7.5 mL 4 07/28/2024 Active atorvastatin (Lipitor) 20 MG tablet Take 1 (one) tablet by mouth at bedtime 90 tablet 3 08/05/2024 Active fluticasone propionate (Flonase) 50 MCG/ACT nasal sprayIndications:C hronic rhinitis,Allergic rhinitis, unspecified seasonality, unspecified trigger,Chronic daily headache [place] 2 (two) sprays into each nostril once daily 16 g 6 08/11/2024 Active azelastine (Astelin) 0.1 % nasal sprayIndications:C hronic rhinitis,Allergic rhinitis, unspecified seasonality, unspecified trigger,Chronic daily headache [place] 1 (one) spray into each nostril 2 times daily 30 mL 3 08/11/2024 Active primidone (Mysoline) 250 MG tabletIndications: Tremor Take 1 tablet by mouth twice daily 180 tablet 3 08/18/2024 Active clonazePAM (KlonoPIN) 0.5 MG tabletIndications: Benign essential tremor Take 1 (one) tablet by mouth once daily 90 tablet 3 09/15/2024 Active donepezil (Aricept) 10 MG tabletIndications: Cognitive decline Take 1 (one) tablet by mouth once daily 90 tablet 3 09/27/2024 Active Blood Glucose Monitoring Suppl (ONE TOUCH ULTRA 2) w/Device KITIndications:Typ e 2 diabetes mellitus with hyperglycemia, without long-term current use of insulin (HCC) Use 1 device as directed 1 kit 10/17/2024 Active polyethylene glycol (Gavilyte-C) 240 g solution Drink half the prep at 5 pm the evening prior to the procedure. Finish the remaining prep at 4 am the morning of the procedure. 4000 mL 10/25/2024 Active albuterol HFA (Proventil; Ventolin; Proair) 108 (90 Base) MCG/ACT inhaler Inhale 2 (two) puffs by mouth every 4 hours as needed for Shortness of Breath or Wheezing 10/07/2024 Active omeprazole (PriLOSEC) 40 MG capsule Take 1 (one) capsule by mouth daily before breakfast Active Galcanezumab-gnlm (Emgality) 120 MG/ML auto-injector penIndications:Int ractable 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 Inject 1 mL subcutaneously every 30 days 1 mL 11 11/02/2024 Active butalbital-acetami nophen-caffeine (Fioricet) 50-300-40 MG capsuleIndications :Intractable 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 Take 1 (one) capsule by mouth every 4 hours as needed for Headache 20 capsule 5 11/02/2024 Active polyethylene glycol 3350 (Miralax) 17 GM/SCOOP powder Take a dose twice a day starting a week before your colonoscopy 238 g 11/04/2024 Active magnesium citrate solution Drink at 5pm 2 nights before your colonoscopy 300 mL 11/04/2024 Active bisacodyl EC (Dulcolax) 5 MG tablet Take 4 tablets orally at noon 2 days before your colonoscopy. Take 4 tablets orally at noon the day before your colonoscopy 8 tablet 11/04/2024 Active memantine (Namenda) 10 MG tabletIndications: Cognitive decline Take 1 (one) tablet by mouth at bedtime 30 tablet 11 12/13/2024 Active Active Problems Problem Noted Date Diagnosed Date Rheumatoid arthritis with negative rheumatoid fa ctor 05/15/2023 11/23/2023 Type 2 diabetes mellitus wit h hyperglycemia, without long-term current use of insulin 12/08/2022 Age-related osteoporosis with current pathologic al fracture 12/08/2022 S/P deep brain stimulator placement 04/10/2022 Benign essential tremor 11/14/2019 Migraine without aura and wi thout status migrainosus, not intractable 11/14/2019 Chronic daily headache 11/14/2019 Memory impairment 11/14/2019 Bipolar disorder 07/08/2012 Encounters Date Type Department Care Team Description 12/13/2024 Orders Only [facility] - Neurology [address] [place] [address] Moncho Salcedo APRN-ARELY Cognitive decline 12/08/2024 9:17 AM SUPPLY TECHNICIAN - 12/08/2024 11:59 PM [facility] Hospital Encounter [facility] CAT SCAN [address] [place] [address] Cornelio Lima MD Discharge Disposition: Home or Self Care 12/08/2024 9:17 AM SUPPLY TECHNICIAN - 12/08/2024 11:59 PM SUPPLY TECHNICIAN Hospital Encounter [facility] CAT SCAN [address] [place] [address] Cornelio Lima MD Discharge Disposition: Home or Self Care 12/08/2024 7:08 AM SUPPLY TECHNICIAN - 12/08/2024 9:16 AM SUPPLY TECHNICIAN Hospital Encounter [facility] DIAGNOSTIC RAD [address] [place] [address] Cornelio Lima MD Discharge Disposition: Home or Self Care 12/08/2024 Travel 11/28/2024 Telephone [facility] - Neurology [address] [place] [phone] Moncho Salcedo APRN-LAY UP OPERATOR Medication Prior Auth Request (Emgality) 11/23/2024 10:58 AM SUPPLY TECHNICIAN - 11/23/2024 11:59 PM SUPPLY TECHNICIAN Hospital Encounter [facility] DIAGNOSTIC RAD [address] [place] [address] Cornelio Lima MD Discharge Disposition: Home or Self Care 11/23/2024 10:58 AM SUPPLY TECHNICIAN - 11/23/2024 11:59 PM SUPPLY TECHNICIAN Hospital Encounter [facility] DIAGNOSTIC RAD [address] [place] [address] Cornelio Lima MD Discharge Disposition: Home or Self Care 11/23/2024 10:00 AM SUPPLY TECHNICIAN Office Visit [facility] - Orthopedics [address] [place] [phone] Cornelio Lima MD Lumbar spine pain (Primary Dx); Lumbar spondylosis; Spondylolisthesis of lumbar region; Degenerative scoliosis in adult patient; Cervical spondylosis with myelopathy; Cervicalgia 11/23/2024 9:49 AM SUPPLY TECHNICIAN - 11/23/2024 10:57 AM SUPPLY TECHNICIAN Hospital Encounter [facility] DIAGNOSTIC RAD [address] [place] [address] Cornelio Lima MD Discharge Disposition: Home or Self Care 11/23/2024 Travel 11/14/2024 Telephone [facility] - Neurology [address] [place] [phone] Moncho Salcedo APRN-CNP Medication Clarification (Emgaltiy) 11/11/2024 10:15 AM SUPPLY TECHNICIAN - 11/11/2024 11:00 AM SUPPLY TECHNICIAN Surgery [facility] ENDOSCOPY [address] [place] [address] Sixto Cornell MD COLONOSCOPY SCREEN--extended prep 11/11/2024 10:00 AM SUPPLY TECHNICIAN Anesthesia Event [facility] ENDOSCOPY [address] [place] [address] Doug Forrester MD Dobbs, Kristin L, APRN-UNIT TENDER 11/11/2024 8:14 AM SUPPLY TECHNICIAN - 11/11/2024 11:24 AM SUPPLY TECHNICIAN Hospital Encounter [facility] [address] [place] [phone] Sixto Cornell MD Surgery General Discharge Disposition: Home or Self Care 11/11/2024 Travel 11/04/2024 Patient Outreach [facility] ENDOSCOPY [address] [place] [phone] Samantha Monterroso, RN 11/02/2024 3:30 PM SUPPLY TECHNICIAN Office Visit [facility] - Neurology [address] [place] [phone] Moncho Salcedo APRN-CNP Intractable 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 (Primary Dx) 11/02/2024 Travel 10/26/2024 10:30 AM SUPPLY TECHNICIAN [facility] [address] [place] [phone] Yolanda Greer APRN-CNP Chronic diarrhea (Primary Dx) 10/26/2024 Travel 10/25/2024 Orders Only [facility] ENDOSCOPY [address] [place] [phone] Wendy Humphrey, RN 10/24/2024 Travel 10/20/2024 Telephone [facility] - Centralized Scheduling [address] [place] [address] Moncho Salcedo APRN-CNP Appointment 10/06/2024 Orders Only [facility] DIAGNOSTIC RAD OP [address] [place] [address] Alok Christie III, MD Spondylolisthesis at L4-L5 level 09/27/2024 Travel 09/27/2024 Telephone [facility] - Neurology [address] [place] [phone] Rissa Vo MD Med Question 09/19/2024 9:05 AM SUPPLY TECHNICIAN - 09/19/2024 11:59 PM SUPPLY TECHNICIAN Hospital Encounter [facility] DIAGNOSTIC RAD OP [address] [place] [address] Kerry Coffman DO Discharge Disposition: Home or Self Care 09/19/2024 8:00 AM SUPPLY TECHNICIAN Office Visit [facility] - Internal Med [address] [place] [address], [place] [address] Kerry Coffman DO Routine general medical examination at health care facility (Primary Dx); Acute bilateral low back pain without sciatica; Acute pain of left knee; Type 2 diabetes mellitus with hyperglycemia, without long-term current use of insulin ([facility]); Chronic diarrhea; Migraine without aura and without status migrainosus, not intractable; Benign essential tremor; Bipolar affective disorder, remission status unspecified ([facility]); Rheumatoid arthritis with negative rheumatoid factor, involving unspecified site ([facility]) 09/19/2024 Travel 09/15/2024 Refill [facility] - Neurology [address] [place] [phone] Rissa Vo MD MEDICATION REFILL from Last 3 Months Immunizations Name Administration Dates Next Due COVID - 19, HISTORIC VACCINE 12/21/2020 COVID PRISCA PRIMARY 18+YR 12/18/2020 COVID MODERNA 12+ yr 50mcg/0.5mL 10/11/2023 COVID MODERNA BIVALENT 12Y+ 50MCG/0.5ML 10/14/2022 Covid Moderna primary monova lent 12+ yr 0.5mL 01/18/2022 Covid Pfizer primary monoval ent 12+ yr 0.3mL Purple cap 08/06/2021 FLU VACCINE TRI IIV3 SPLIT P F IM (FLUVIRIN) 06/02/2012 HEP B VACCINE, ADULT 3 DOSE 09/25/2016, 6 INFLUENZA VACCINE, HIGH-DOSE , TRIV. (FLUZONE HIGH-DOSE TRIVALENT; 65Y+) (HD-IIV3) 07/12/2015,07/12/2014 INFLUENZA VACCINE, QUADR. (A FLURIA, FLUZONE QUADRIVALENT; 6MO+) (IIV4) 07/03/2022,10/08/2021,07/02/2020,2018,08/12/2017,06/20/2016,10/20/2013 INFLUENZA VACCINE, QUADR. (F LUZONE; FLULAVAL; FLUARIX; AFLURIA QUADRIVALENT; 6MO+), 0.5 ML (IIV4) 09/29/2023,11/17/2018,07/21/2018 MMR VACCINE 07/26/2018 PNEUMOCOCCAL PPSV23 07/08/2012 PNEUMOCOCCAL PPV VACCINE 05/16/2021,2018 Pneumococcal Pcv13 Conj 07/02/2020 TDAP, HISTORIC VACCINE 03/08/2023,06/17/2014 Zoster Hzv Vacc Recombinant Inj Im 10/15/2022,,05/16/2021 Family History Medical History Relation Name Comments CAD (Coronary Artery Disease) Brother Alcohol abuse Father Alcohol abuse Mother Other - Cardiac Mother Mitral valve prolapse Cancer - Breast Neg Hx Cancer - Colon Neg Hx Relation Name Status Comments Brother Father Mother Social History Tobacco Use Types Packs/Day Years Used Date Smoking Tobacco: Former Cigarettes Q uit: 1995 Smokeless Tobacco: Never Tobacco Cessation:Counseling Given: Not Answered Alcohol Use Standard Drinks/Week Comments Never 0 [...] Sex Assigned at Female 09/16/2024 2:41 PM SUPPLY TECHNICIAN Gender Identity Female 09/16/2024 2:41 PM SUPPLY TECHNICIAN Sexual Orientation Straight 09/16/2024 2: 41 PM SUPPLY TECHNICIAN Last Filed Vital Signs Vital Sign Reading Time Taken Comments Blood Pressure 114/82 12/08/2024 12:30 PM SUPPLY TECHNICIAN Pulse 59 12/08/2024 12:30 PM SUPPLY TECHNICIAN Temperature 36.6 C (97.8 F) 12/08/2024 10:30 AM SUPPLY TECHNICIAN Respiratory Rate 14 12/08/2024 12:30 PM SUPPLY TECHNICIAN Oxygen Saturation 96% 12/08/2024 12:30 PM SUPPLY TECHNICIAN Inhaled Oxygen Concentration - - Weight 66.9 kg (147 lb 8 oz) 12/08/2024 8:01 AM SUPPLY TECHNICIAN Height 167.6 cm (5' 6 ) 12/08/2024 8:01 AM SUPPLY TECHNICIAN Body Mass Index 23.81 12/08/2024 8:01 AM SUPPLY TECHNICIAN Plan of Treatment Upcoming Encounters Date Type Department Care Team (Late st Contact Info) Description 12/15/2024 2:20 PM SUPPLY TECHNICIAN Office Visit [facility] - Endocrinology [address] [place] [address] [place] [address] Marquise Adames MD [address] [place] [address] [place] [address] 01/04/2025 9:15 AM CDT [facility] Orthopedics [address] [place] [address] [place] [address] Cornelio Lima MD [address] [place] [address] 01/25/2025 10:30 AM CDT Office Visit [facility] - GI [address] [place] [address] [place] [address] Yolanda Greer, AUDIOLOGIST-LAY UP OPERATOR [address] [place] [address] 02/09/2025 11:15 AM CDT Office Visit [facility] - Ophthalmology [address] [place] [address], [place] [address] Percy Matute MD [address] [place] [address] DE[place] [phone] 02/09/2025 4:00 PM CDT Office Visit [facility] - Allergy [address] [place] [phone] Papito Morales MD [address] [place] [address] 2L DIV OF ALLERGY/[place] [address] 03/02/2025 1:00 PM CDT Office Visit [facility] - Neurology [address] [place] [phone] Moncho Salcedo APRN-LAY UP OPERATOR [address] [place] [address] 1L [place] [phone] 03/20/2025 11:00 AM CDT Office Visit [facility] - Internal Med [address] [place] [phone] Kerry Coffman DO [address] [place] [address] 2L DIV OF [place] [address] 04/13/2025 3:00 PM CDT Office Visit [facility] - Allergy [address] [place] [phone] Papito Morales MD [address] [place] [address] 2L DIV OF ALLERGY/[place] [address] Health Maintenance Due Date Last Done Comments COLOGUARD (AGES 45-75) - COLON CA SCREENING 1955 CT COLONOGRAPHY - COLON CA SCREENING 1955 FIT - COLON CA SCREENING 1955 FLEX SIG - COLON CA SCREENING 1955 Respiratory Syncytial Virus (RSV) Vaccine Pt: or over 60 yrs (1 - Risk 60-74 years 1-dose series) 2015 HEPATITIS B VACCINE (3 of 3 - 19+ 3-dose series) 01/28/2017 09/25/2016, 07/30/2016 COVID-19 VACCINE ( season) 2024 10/11/2023, 10/14/2022, 01/18/2022, Additional history exists INFLUENZA VACCINE (#1) 2024 , 07/03/2022, 10/08/2021, Additional history exists DIABETES-HGB A1C 10/04/2024 04/04/2024, 12/08/2022 DIABETES - URINE PROTEIN SCREENING 10/12/2024 02/05/2023 MEDICARE AW CALENDAR YEAR 2024 09/19/2024 DIABETES-FOOT EXAM WITH MONOFILAMENT 04/04/2025 04/04/2024 DIABETES-SERUM CREATININE 07/20/20252023, 05/15/2023, 05/15/2023, Additional history exists MAMMOGRAM 09/18/2025 09/18/2023 (Done Outside Per Report) DIABETES RETINOPATHY SCREENING 08/11/2026 08/11/2024, 08/11/2024, 07/28/2024 COLONOSCOPY - COLON CA SCREENING 11/11/2029 11/11/2024, 11/11/2024, 07/29/2024, Additional history exists Colorectal Cancer Screening 11/11/2029 DTAP/TDAP/TD VACCINES (3 - Td or Tdap) 03/08/2033 03/08/2023, 06/17/2014 COLON MONITORING 11/11/2034 11/11/2024, , 07/29/2024, Additional history exists HEPATITIS C SCREENING Completed 05/24/2020 (Done Outside Per Report) PNEUMOCOCCAL VACCINE 50+ Completed 021, 07/02/2020, 2018, Additional history exists ZOSTER VACCINE Completed 10/15/2022, 0305/2022, 05/16/2021 BONE DENSITY TESTING Completed 03/08/2024, 08/08/20 21 HIB VACCINE Aged Out No longer eligi ble based on patient's age to complete this topic HPV VACCINE Aged Out No longer eligi ble based on patient's age to complete this topic MENINGOCOCCAL (Group B) VACCINE Aged Out No longer eligible based on patient's age to complete this topic MENINGOCOCCAL VACCINE Aged Out No venu jaime eligible based on patient's age to complete this topic Goals Goal Patient Goal Type Associated Problems Recent Progress Patient-Stated? Author Medication Management General On track( 025 10:42 AM SUPPLY TECHNICIAN) No Marion Mera, RN Note: Expected end date: ongoing Interventions: Take all medications as prescribed Medical Devices Implanted Type Area Child Support Officer Device Identifier Shelf Expiration Date Model / Serial / Lot Slnt Dura Duraseal Pg Trilysine Amine 5 Implanted:Qty: 1 on 03/17/2022 by Jackelyn Yang MD at [facility] Left: Cranial [employer] 08/11/2023 [id number] / / [id number] Guardian Branial Yuriy Hole Cover Sys Implanted:Qty: 1 on 03/17/2022 by Jackelyn Yang MD at [facility] Left: Cranial [employer] 01/01/2024 6010 / / [id number] Directional Lead Implanted:Qty: 1 on 03/17/2022 by Shailesh North MD at [facility] Left: Cranial [employer] 09/25/2023 6172 / [id number] / Lead Extension Implanted:Qty: 1 on 03/24/2022 by Shailesh North MD at [facility] Left: Neck [employer] 01/15/2024 [id number] / / [id number] Generator Implanted:Qty: 1 on 03/24/2022 by Shailesh North MD at [facility] Left: Chest [employer] 11/19/2023 6662 / / [id number] [place] Spnl 140mm 6.35mm Ti Str Implanted:Qty: 1 on 08/29/2022 by Shailesh North MD at [facility] Right: Scalp [employer] 04/02/2024 6010 / / [employer] Dbs System Implanted:Qty: 1 on 08/29/2022 by Joshua [place] MD at [facility] Right: Brain 03/19/2024 6172 / [id number] / Description:cost per [facility] [employer] Dbs System Implanted:Qty: 1 on 08/29/2022 by Joshua [place] MD at [facility] Right: Chest Wall 04/23/2024 6373 / [id number] / Description:cost per levar Procedures Procedure Name Priority Date/Time Associated Diagnosis Comments FL MYELOGRAM 2 OR MORE REGIONS Routine 12/08/2024 10:27 AM SUPPLY TECHNICIAN Lumbar spine pain CT LUMBAR POST MYELOGRAM Routine 12/08/2024 10:25 AM SUPPLY TECHNICIAN Lumbar spine pain CT CERVICAL POST MYELOGRAM Routine 12/08/2024 10:25 AM SUPPLY TECHNICIAN Lumbar spine pain XR SPINE ENTIRE 2 OR 3VW Routine 11/23/2024 11:09 AM SUPPLY TECHNICIAN Lumbar spine pain XR CERVICAL SPINE 2 OR 3VW Routine 11/23/2024 11:06 AM SUPPLY TECHNICIAN Lumbar spine pain XR LUMBAR SPINE 2 OR 3VW Routine 11/23/2024 10:00 AM SUPPLY TECHNICIAN Lumbar spine pain PATHOLOGY TISSUE Routine 11/11/2024 10:1 6 AM SUPPLY TECHNICIAN Screen for colon cancer [place] COLOREC CANC SCRN,SCOPY NOT HI RISK 11/11/2024 9:55 AM SUPPLY TECHNICIAN Screen for colon cancer ENDOSCOPY, COLON, SCREENING Routine 11/11/2024 9:52 AM SUPPLY TECHNICIAN GLUCOSE - POINT OF CARE Routine 11/11/2024 9:19 AM SUPPLY TECHNICIAN CALPROTECTIN FECAL Routine 11/07/2024 3: 52 PM SUPPLY TECHNICIAN Chronic diarrhea CULTURE STOOL PANEL Routine 11/07/2024 3 :52 PM SUPPLY TECHNICIAN Chronic diarrhea C DIFFICILE CYTOTOXIN Routine 11/07/2024 3:51 PM SUPPLY TECHNICIAN Chronic diarrhea PROC DEEP BRAIN STIMULATOR Routine 11/03/2024 2:08 PM SUPPLY TECHNICIAN Intractable 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 XR LUMBAR SPINE 4VW OR MORE Routine 09/19/2024 9:18 AM SUPPLY TECHNICIAN Acute bilateral low back pain without sciatica XR KNEE LEFT 4VW OR MORE Routine 09/19/2024 9:18 AM SUPPLY TECHNICIAN Acute pain of left knee COMPREHENSIVE METABOLIC PANEL Routine 07/20/2024 11:49 AM CDT Chronic diarrhea Intestinal malabsorption, unspecified type (HCC) HEMOGLOBIN A1C - POINT OF CARE (AMB) [facility] Routine 04/04/2024 11:34 AM CDT Type 2 diabetes mellitus with hyperglycemia, without long-term current use of insulin (HCC) MICROALB/CREAT RATIO URINE RANDOM PANEL 02/05/2023 12:26 PM CDT from Last 3 Months or Most Recently Relevant to Health Maintenance Results * FL Myelogram 2 or More Regions (12/08/2024 10:27 AM SUPPLY TECHNICIAN) Anatomical Region Laterality Modality Spine Digital Radiogra phy 12/08/2024 1:17 PM SUPPLY TECHNICIAN Impressions 12/13/2024 12:15 PM SUPPLY TECHNICIAN IMPRESSION: 1.Successful lumbar puncture for cervical and lumbar myelography. 2.Free flow of contrast with no evidence of myelographic block. Cervical spine: 1.Borderline developmental cervical spinal canal stenosis and superimposed multilevel degenerative disc and joint disease as detailed level by level above, perhaps worst at C5-C6 and C6-C7, enteritis or extent C3-C4 and C4-C5. Mild cord compression is suspected at C5-C6 and to a lesser extent, perhaps mild cord abutment at C6-C7. 2.Varying degrees of neural foraminal stenoses as outlined. Lumbar spine: 1.Multilevel degenerative disc and joint disease as detailed [id number] above, worse at L4-L5, as outlined. 2.Transitional anatomy as noted above. The report is dictated by Addi Arambula MD, (md do resident urgent care) Attending Physician: Dr. Magdalena Blackmon Movie Projectionist: Dr. Addi Arambula MD, (md do resident urgent care) The procedure was performed by the: The digital assistant, and the attending radiologist was present for all critical and mariscal portions of the procedure, and was immediately available to furnish services during the entire procedure. The attending radiologist performed the following procedural activities: IDr. Magdalena was there and supervised mariscal portions of the procedure, not scrubbed. IMagdalena MD have personally reviewed and interpreted this examination/study. > Interpreting Provider: Magdalena Blackmon MD on 12/13/2024 12:15 PM Narrative 12/13/2024 12:15 PM SUPPLY TECHNICIAN PROCEDURE: FL MYELOGRAM 2 OR MORE REGIONS, CT LUMBAR POST MYELOGRAM, CT CERVICAL POST MYELOGRAM DATE/TIME OF EXAM: 12/08/2024 10:34 AM CLINICAL INFORMATION: PROCEDURE: FL MYELOGRAM 2 OR MORE REGIONS, CT LUMBAR POST MYELOGRAM, CT CERVICAL POST MYELOGRAM, DATE/TIME OF EXAM: 12/08/2024 10:34 AM, LOCATION [facility] INDICATION: M54.50: Lumbar spine pain ADDITIONAL CLINICAL INFORMATION: Ordering Provider Reason For Exam: myelopathy (accession [id number]), chronic low back pain (accession [id number]) Technologist Note: None. Additional: None. EXAMINATION: 1.Lumbar puncture (LP) under fluoroscopic guidance for total myelogram 2.Computed tomography (CT) of the cervical and lumbar spine with contrast TECHNIQUE: The risks and benefits of the lumbar puncture and myelography including, but not limited to, infection, bleeding, seizure, epidural hematoma, post spinal headache, cerebrospinal fluid (CSF) leak requiring blood patch procedure, nausea, vomiting, irritation or damage to nerves causing pain or permanent injury were discussed with the patient. After alternatives were discussed and the opportunity to ask questions was provided, the patient acknowledged understanding, gave verbal and written consent, and wished to proceed. Attending physician: Dr. Blackmon was present for the mariscal portions of this procedure. The L3-4 level was localized with fluoroscopy. The skin overlying this level was then sterilely prepped, draped, and infiltrated with 1% lidocaine for local anesthesia. Under intermittent fluoroscopic guidance, a 20 gauge 3.5 inch spinal needle was inserted into the thecal sac at this level and 12 ml of Omnipaque (300 mg Iodine per milliliter) was instilled. The contrast was pooled into the cervical and lumbar region. Prone and oblique views of the cervical and lumbar spine were obtained and then the patient was taken to the CT scanner where CT of the cervical and lumbar spine was performed. The patient tolerated the procedure well. The patient was then transferred to the pharmacy customer care specialist unit for further observation and 2 hours of bedrest. FLUOROSCOPY TIME: 86 seconds FINDINGS: Free flow of contrast throughout the lumbar, and cervical spine without myelographic block. Cervical spine: Relative straightening of the cervical lordosis. Suspected trace retrolisthesis of C5 on C6. Suspected trace anterolisthesis of C7 on T1. The bones are osteopenic. Vertebral bodies are normal in height without evidence of compression fractures. Other than middle atlantoaxial joint osteoarthritis, the craniocervical junction appears normal. There is mild degenerative disc disease.. Decreased disc space heights at multiple levels. No soft tissue abnormality is identified. C2-3: There is mild disc bulge, slightly eccentric to the right. Minimal hypertrophy of the ligamentum flavum. There is no high-grade central canal stenosis. There is mild facet osteoarthritis. There is mild left uncovertebral joint osteoarthritis. There is mild left neural foraminal stenosis. C3-4: There is diffuse disc bulge/disc osteophyte complex. That is mild hypertrophy of the ligamentum flavum. There is mild or mild to moderate central canal stenosis. There is moderate facet osteoarthritis. There is advanced uncovertebral joint osteoarthritis. There is moderate to severe right and severe left neural foraminal stenosis. C4-5: There is mild, diffuse disc bulge, eccentric to the right, with possible small superimposed right paracentral disc protrusion. There is mild hypertrophy of the ligamentum flavum. There is mild to moderate central canal stenosis. There is mild right and moderate left facet osteoarthritis. There is moderate uncovertebral joint osteoarthritis. There is moderate or moderate to severe bilateral neural foraminal stenosis. C5-6: There is diffuse disc bulge/disc osteophyte complex. There is moderate central canal stenosis. There is mild cord compression at this level. There is mild to moderate facet osteoarthritis. There is mild right and moderate left uncovertebral joint osteoarthritis. There is minimal right and moderate left neural foraminal stenosis however, there is severe stenosis of the upper aspect of the bilateral neural foramina. C6-7: There is diffuse disc bulge. There is prominent hypertrophy of the ligamentum flavum. There is up to moderate central canal stenosis. There is mild to moderate facet osteoarthritis. There is mild to moderate uncovertebral joint osteoarthritis. There is mild to moderate neural foraminal stenosis. C7-T1: There is minimal disc bulge. There is no high-grade central canal stenosis. There is mild facet osteoarthritis. There is mild bilateral uncovertebral joint osteoarthritis. There is mild or mild to moderate neural foraminal stenosis. Lumbar spine: Transitional anatomy. 6 nonrib-bearing vertebral bodies are noted, with lumbarization of S1 vertebral body. Minimal anterolisthesis of L4 on L5. The alignment is otherwise maintained. There is likely a small bone island in the right aspect of the L5 vertebral body. Vertebral bodies are normal in height without evidence of compression fractures. Mild disc desiccation noted at L5-S1. The intervertebral discs are normal in height. The conus medullaris is at the level of L2 and no myelographic block is identified. There are mild degenerative changes of the SI joints. No soft tissue abnormality is identified. L1-L2: There is minimal disc bulge. There is no central canal stenosis. There is minimal facet osteoarthritis. There is no significant neural foraminal stenosis. L2-L3: There is mild, diffuse disc bulge.. Mild hypertrophy of the ligamentum flavum. Minimal left lateral recess stenosis. There is no high-grade central canal stenosis. There is mild facet osteoarthritis. There is no high-grade neural foraminal stenosis. Few tiny foci of air are seen in the epidural space at this level, perhaps at the site of the needle. L3-L4: There is diffuse disc bulge. There is hypertrophy of the ligamentum flavum. There is overall mild spinal canal stenosis. Mild left lateral recess stenosis. There is no significant central canal stenosis. There is mild to moderate facet osteoarthritis. There is mild right and moderate left neural foraminal stenosis. L4-L5: There is moderate, diffuse disc bulge. That is significant hypertrophy of the ligamentum flavum and hypertrophic facet arthropathy with calcifications within the right facet joint and subtle adjacent calcifications adjacent to the anterior aspect of the facet joints bilaterally, compressing the dorsal aspect of thecal sac. There is moderate central canal stenosis. There is mild, left worse than right bilateral lateral recess stenosis. There is advanced facet osteoarthritis. There is mild right and moderate left neural foraminal stenosis. L5-S1: There is mild, diffuse disc bulge. Mild hypertrophy of the ligamentum flavum. There is no high-grade central canal stenosis. There is vejo-ka-iveszqqj facet osteoarthritis. There is mild bilateral neural foraminal stenosis. Procedure Note Magdalena Blackmon MD - 12/13/2024 PROCEDURE: FL MYELOGRAM 2 OR MORE REGIONS, CT LUMBAR POST MYELOGRAM, CT CERVICAL POST MYELOGRAM DATE/TIME OF EXAM: 12/08/2024 10:34 AM CLINICAL INFORMATION: PROCEDURE: FL MYELOGRAM 2 OR MORE REGIONS, CTLUMBAR POST MYELOGRAM, CT CERVICAL POST MYELOGRAM, DATE/TIME OF EXAM:12/08/2024 10:34 AM, LOCATION [facility] INDICATION: M54.50: Lumbar spine pain ADDITIONAL CLINICAL INFORMATION: Ordering Provider Reason For Exam: myelopathy (accession [id number]), chronic low back pain (accession [id number]) Technologist Note: None. Additional: None. EXAMINATION: 1.Lumbar puncture (LP) under fluoroscopic guidance for total myelogram 2.Computed tomography (CT) of the cervical and lumbar spine withcontrast TECHNIQUE: The risks and benefits of the lumbar puncture and myelography including, but not limited to, infection, bleeding, seizure, epidural hematoma, post spinal headache, cerebrospinal fluid (CSF) leak requiring blood patch procedure, nausea, vomiting, irritation or damage to nerves causing pain or permanent injury were discussed with the patient. After alternatives were discussed and the opportunity to ask questions was provided, the patient acknowledged understanding, gave verbal andwritten consent, and wished to proceed. Attending physician: Dr. Blackmon was present for the mariscal portions ofthis procedure. The L3-4 level was localized with fluoroscopy. The skin overlying this level was then sterilely prepped, draped, and infiltrated with 1%lidocaine for local anesthesia. Under intermittent fluoroscopic guidance, a 20gauge 3.5 inch spinal needle was inserted into the thecal sac at this leveland 12 ml of Omnipaque (300 mg Iodine per milliliter) was instilled. The contrast was pooled into the cervical and lumbar region. Prone andoblique views of the cervical and lumbar spine were obtained and then thepatient was taken to the CT scanner where CT of the cervical and lumbar spinewas performed. The patient tolerated the procedure well. The patient wasthen transferred to the pharmacy customer care specialist unit for further observation and 2hours of bedrest. FLUOROSCOPY TIME: 86 seconds FINDINGS: Free flow of contrast throughout the lumbar, and cervical spine without myelographic block. Cervical spine: Relative straightening of the cervical lordosis. Suspected trace retrolisthesis of C5 on C6. Suspected trace anterolisthesis of C7 on T1. The bones are osteopenic. Vertebral bodies are normal in height without evidence of compression fractures. Other than middle atlantoaxial joint osteoarthritis, the craniocervical junction appears normal. There ismild degenerative disc disease.. Decreased disc space heights at multiple levels. No soft tissue abnormality is identified. C2-3: There is mild disc bulge, slightly eccentric to the right. Minimal hypertrophy of the ligamentum flavum. There is no high-grade centralcanal stenosis. There is mild facet osteoarthritis. There is mild left uncovertebral joint osteoarthritis. There is mild left neural foraminal stenosis. C3-4: There is diffuse disc bulge/disc osteophyte complex. That is mild hypertrophy of the ligamentum flavum. There is mild or mild to moderate central canal stenosis. There is moderate facet osteoarthritis. There is advanced uncovertebral joint osteoarthritis. There is moderate to severe right and severe left neural foraminal stenosis. C4-5: There is mild, diffuse disc bulge, eccentric to the right, with possible small superimposed right paracentral disc protrusion. There is mild hypertrophy of the ligamentum flavum. There is mild to moderate central canal stenosis. There is mild right and moderate left facet osteoarthritis. There is moderate uncovertebral joint osteoarthritis.There is moderate or moderate to severe bilateral neural foraminal stenosis. C5-6: There is diffuse disc bulge/disc osteophyte complex. There is moderate central canal stenosis. There is mild cord compression at this level. There is mild to moderate facet osteoarthritis. There is mildright and moderate left uncovertebral joint osteoarthritis. There is minimal right and moderate left neural foraminal stenosis however, there issevere stenosis of the upper aspect of the bilateral neural foramina. C6-7: There is diffuse disc bulge. There is prominent hypertrophy of the ligamentum flavum. There is up to moderate central canal stenosis. Thereis mild to moderate facet osteoarthritis. There is mild to moderate uncovertebral joint osteoarthritis. There is mild to moderate neural foraminal stenosis. C7-T1: There is minimal disc bulge. There is no high-grade central canal stenosis. There is mild facet osteoarthritis. There is mild bilateral uncovertebral joint osteoarthritis. There is mild or mild to moderate neural foraminal stenosis. Lumbar spine: Transitional anatomy. 6 nonrib-bearing vertebral bodies are noted, with lumbarization of S1 vertebral body. Minimal anterolisthesis of L4 on L5. The alignment is otherwisemaintained. There is likely a small bone island in the right aspect of the I3fxpjbuvje body. Vertebral bodies are normal in height without evidence ofcompression fractures. Mild disc desiccation noted at L5-S1. The intervertebraldiscs are normal in height. The conus medullaris is at the level of L2 and no myelographic block is identified. There are mild degenerative changes of the SI joints. No soft tissue abnormality is identified. L1-L2: There is minimal disc bulge. There is no central canal stenosis. There is minimal facet osteoarthritis. There is no significant neural foraminal stenosis. L2-L3: There is mild, diffuse disc bulge.. Mild hypertrophy of the ligamentum flavum. Minimal left lateral recess stenosis. There is no high-grade central canal stenosis. There is mild facet osteoarthritis. There is no high-grade neural foraminal stenosis. Few tiny foci of airare seen in the epidural space at this level, perhaps at the site of the needle. L3-L4: There is diffuse disc bulge. There is hypertrophy of theligamentum flavum. There is overall mild spinal canal stenosis. Mild left lateral recess stenosis. There is no significant central canal stenosis. Thereis mild to moderate facet osteoarthritis. There is mild right and moderate left neural foraminal stenosis. L4-L5: There is moderate, diffuse disc bulge. That is significant hypertrophy of the ligamentum flavum and hypertrophic facet arthropathy with calcifications within the right facet joint and subtle adjacent calcifications adjacent to the anterior aspect of the facet joints bilaterally, compressing the dorsal aspect of thecal sac. There ismoderate central canal stenosis. There is mild, left worse than right bilateral lateral recess stenosis. There is advanced facet osteoarthritis. Thereis mild right and moderate left neural foraminal stenosis. L5-S1: There is mild, diffuse disc bulge. Mild hypertrophy of the ligamentum flavum. There is no high-grade central canal stenosis. Thereis sbpy-is-ruiroqtq facet osteoarthritis. There is mild bilateral neural foraminal stenosis. IMPRESSION: 1.Successful lumbar puncture for cervical and lumbar myelography. 2.Free flow of contrast with no evidence of myelographic block. Cervical spine: 1.Borderline developmental cervical spinal canal stenosis andsuperimposed multilevel degenerative disc and joint disease as detailed level bylevel above, perhaps worst at C5-C6 and C6-C7, enteritis or extent C3-C4 and C4-C5. Mild cord compression is suspected at C5-C6 and to a lesserextent, perhaps mild cord abutment at C6-C7. 2.Varying degrees of neural foraminal stenoses as outlined. Lumbar spine: 1.Multilevel degenerative disc and joint disease as kknivudkeomsp-jy-ehghj above, worse at L4-L5, as outlined. 2.Transitional anatomy as noted above. The report is dictated by Addi Arambula MD, ([facility]) Attending Physician: Dr. Magdalena Blackmon Movie Projectionist: Dr. Addi Arambula MD, ([facility]) The procedure was performed by the: The digital assistant, and the attending radiologist was present for allcritical and mariscal portions of the procedure, and was immediately [facility] during the entire procedure. The attending radiologist performed the following procedural activities: IDr. Magdalena was there and supervised mariscal portions of the procedure, not scrubbed. IMagdalena MD have personally reviewed and interpretedthis examination/study. > Interpreting Provider: Magdalena Blackmon MD on 12/13/2024 12:15 PM Cornelio Lima MD FLUOROSCOPY OR DERABLES * CT Lumbar Post Myelogram (12/08/2024 10:25 AM SUPPLY TECHNICIAN) Anatomical Region Laterality Modality Spine Computed Tomogra phy 12/08/2024 1:17 PM SUPPLY TECHNICIAN Impressions 12/13/2024 12:15 PM SUPPLY TECHNICIAN IMPRESSION: 1.Successful lumbar puncture for cervical and lumbar myelography. 2.Free flow of contrast with no evidence of myelographic block. Cervical spine: 1.Borderline developmental cervical spinal canal stenosis and superimposed multilevel degenerative disc and joint disease as detailed level by level above, perhaps worst at C5-C6 and C6-C7, enteritis or extent C3-C4 and C4-C5. Mild cord compression is suspected at C5-C6 and to a lesser extent, perhaps mild cord abutment at C6-C7. 2.Varying degrees of neural foraminal stenoses as outlined. Lumbar spine: 1.Multilevel degenerative disc and joint disease as detailed yndew-ob-veiuw above, worse at L4-L5, as outlined. 2.Transitional anatomy as noted above. The report is dictated by Addi Arambula MD, ([facility]) Attending Physician: Dr. Magdalena Blackmon Movie Projectionist: Dr. Addi Arambula MD, ([facility] urgent [facility]) The procedure was performed by the: The digital assistant, and the attending radiologist was present for all critical and mariscal portions of the procedure, and was immediately available to furnish services during the entire procedure. The attending radiologist performed the following procedural activities: IDr. Magdalena was there and supervised mariscal portions of the procedure, not scrubbed. Magdalena Gutierrez MD have personally reviewed and interpreted this examination/study. > Interpreting Provider: Magdalena Blackmon MD on 12/13/2024 12:15 PM Narrative 12/13/2024 12:15 PM SUPPLY TECHNICIAN PROCEDURE: FL MYELOGRAM 2 OR MORE REGIONS, CT LUMBAR POST MYELOGRAM, CT CERVICAL POST MYELOGRAM DATE/TIME OF EXAM: 12/08/2024 10:34 AM CLINICAL INFORMATION: PROCEDURE: FL MYELOGRAM 2 OR MORE REGIONS, CT LUMBAR POST MYELOGRAM, CT CERVICAL POST MYELOGRAM, DATE/TIME OF EXAM: 12/08/2024 10:34 AM, LOCATION [facility] INDICATION: M54.50: Lumbar spine pain ADDITIONAL CLINICAL INFORMATION: Ordering Provider Reason For Exam: myelopathy (accession [id number]), chronic low back pain (accession [id number]) Technologist Note: None. Additional: None. EXAMINATION: 1.Lumbar puncture (LP) under fluoroscopic guidance for total myelogram 2.Computed tomography (CT) of the cervical and lumbar spine with contrast TECHNIQUE: The risks and benefits of the lumbar puncture and myelography including, but not limited to, infection, bleeding, seizure, epidural hematoma, post spinal headache, cerebrospinal fluid (CSF) leak requiring blood patch procedure, nausea, vomiting, irritation or damage to nerves causing pain or permanent injury were discussed with the patient. After alternatives were discussed and the opportunity to ask questions was provided, the patient acknowledged understanding, gave verbal and written consent, and wished to proceed. Attending physician: Dr. Blackmon was present for the mariscal portions of this procedure. The L3-4 level was localized with fluoroscopy. The skin overlying this level was then sterilely prepped, draped, and infiltrated with 1% lidocaine for local anesthesia. Under intermittent fluoroscopic guidance, a 20 gauge 3.5 inch spinal needle was inserted into the thecal sac at this level and 12 ml of Omnipaque (300 mg Iodine per milliliter) was instilled. The contrast was pooled into the cervical and lumbar region. Prone and oblique views of the cervical and lumbar spine were obtained and then the patient was taken to the CT scanner where CT of the cervical and lumbar spine was performed. The patient tolerated the procedure well. The patient was then transferred to the pharmacy customer care specialist unit for further observation and 2 hours of bedrest. FLUOROSCOPY TIME: 86 seconds FINDINGS: Free flow of contrast throughout the lumbar, and cervical spine without myelographic block. Cervical spine: Relative straightening of the cervical lordosis. Suspected trace retrolisthesis of C5 on C6. Suspected trace anterolisthesis of C7 on T1. The bones are osteopenic. Vertebral bodies are normal in height without evidence of compression fractures. Other than middle atlantoaxial joint osteoarthritis, the craniocervical junction appears normal. There is mild degenerative disc disease.. Decreased disc space heights at multiple levels. No soft tissue abnormality is identified. C2-3: There is mild disc bulge, slightly eccentric to the right. Minimal hypertrophy of the ligamentum flavum. There is no high-grade central canal stenosis. There is mild facet osteoarthritis. There is mild left uncovertebral joint osteoarthritis. There is mild left neural foraminal stenosis. C3-4: There is diffuse disc bulge/disc osteophyte complex. That is mild hypertrophy of the ligamentum flavum. There is mild or mild to moderate central canal stenosis. There is moderate facet osteoarthritis. There is advanced uncovertebral joint osteoarthritis. There is moderate to severe right and severe left neural foraminal stenosis. C4-5: There is mild, diffuse disc bulge, eccentric to the right, with possible small superimposed right paracentral disc protrusion. There is mild hypertrophy of the ligamentum flavum. There is mild to moderate central canal stenosis. There is mild right and moderate left facet osteoarthritis. There is moderate uncovertebral joint osteoarthritis. There is moderate or moderate to severe bilateral neural foraminal stenosis. C5-6: There is diffuse disc bulge/disc osteophyte complex. There is moderate central canal stenosis. There is mild cord compression at this level. There is mild to moderate facet osteoarthritis. There is mild right and moderate left uncovertebral joint osteoarthritis. There is minimal right and moderate left neural foraminal stenosis however, there is severe stenosis of the upper aspect of the bilateral neural foramina. C6-7: There is diffuse disc bulge. There is prominent hypertrophy of the ligamentum flavum. There is up to moderate central canal stenosis. There is mild to moderate facet osteoarthritis. There is mild to moderate uncovertebral joint osteoarthritis. There is mild to moderate neural foraminal stenosis. C7-T1: There is minimal disc bulge. There is no high-grade central canal stenosis. There is mild facet osteoarthritis. There is mild bilateral uncovertebral joint osteoarthritis. There is mild or mild to moderate neural foraminal stenosis. Lumbar spine: Transitional anatomy. 6 nonrib-bearing vertebral bodies are noted, with lumbarization of S1 vertebral body. Minimal anterolisthesis of L4 on L5. The alignment is otherwise maintained. There is likely a small bone island in the right aspect of the L5 vertebral body. Vertebral bodies are normal in height without evidence of compression fractures. Mild disc desiccation noted at L5-S1. The intervertebral discs are normal in height. The conus medullaris is at the level of L2 and no myelographic block is identified. There are mild degenerative changes of the SI joints. No soft tissue abnormality is identified. L1-L2: There is minimal disc bulge. There is no central canal stenosis. There is minimal facet osteoarthritis. There is no significant neural foraminal stenosis. L2-L3: There is mild, diffuse disc bulge.. Mild hypertrophy of the ligamentum flavum. Minimal left lateral recess stenosis. There is no high-grade central canal stenosis. There is mild facet osteoarthritis. There is no high-grade neural foraminal stenosis. Few tiny foci of air are seen in the epidural space at this level, perhaps at the site of the needle. L3-L4: There is diffuse disc bulge. There is hypertrophy of the ligamentum flavum. There is overall mild spinal canal stenosis. Mild left lateral recess stenosis. There is no significant central canal stenosis. There is mild to moderate facet osteoarthritis. There is mild right and moderate left neural foraminal stenosis. L4-L5: There is moderate, diffuse disc bulge. That is significant hypertrophy of the ligamentum flavum and hypertrophic facet arthropathy with calcifications within the right facet joint and subtle adjacent calcifications adjacent to the anterior aspect of the facet joints bilaterally, compressing the dorsal aspect of thecal sac. There is moderate central canal stenosis. There is mild, left worse than right bilateral lateral recess stenosis. There is advanced facet osteoarthritis. There is mild right and moderate left neural foraminal stenosis. L5-S1: There is mild, diffuse disc bulge. Mild hypertrophy of the ligamentum flavum. There is no high-grade central canal stenosis. There is ivul-eb-gtzgxccp facet osteoarthritis. There is mild bilateral neural foraminal stenosis. Procedure Note Magdalena Blackmon MD - 12/13/2024 PROCEDURE: FL MYELOGRAM 2 OR MORE REGIONS, CT LUMBAR POST MYELOGRAM, CT CERVICAL POST MYELOGRAM DATE/TIME OF EXAM: 12/08/2024 10:34 AM CLINICAL INFORMATION: PROCEDURE: FL MYELOGRAM 2 OR MORE REGIONS, CTLUMBAR POST MYELOGRAM, CT CERVICAL POST MYELOGRAM, DATE/TIME OF EXAM:12/08/2024 10:34 AM, LOCATION [facility] INDICATION: M54.50: Lumbar spine pain ADDITIONAL CLINICAL INFORMATION: Ordering Provider Reason For Exam: myelopathy (accession [id number]), chronic low back pain (accession [id number]) Technologist Note: None. Additional: None. EXAMINATION: 1.Lumbar puncture (LP) under fluoroscopic guidance for total myelogram 2.Computed tomography (CT) of the cervical and lumbar spine withcontrast TECHNIQUE: The risks and benefits of the lumbar puncture and myelography including, but not limited to, infection, bleeding, seizure, epidural hematoma, post spinal headache, cerebrospinal fluid (CSF) leak requiring blood patch procedure, nausea, vomiting, irritation or damage to nerves causing pain or permanent injury were discussed with the patient. After alternatives were discussed and the opportunity to ask questions was provided, the patient acknowledged understanding, gave verbal andwritten consent, and wished to proceed. Attending physician: Dr. Blackmon was present for the mariscal portions ofthis procedure. The L3-4 level was localized with fluoroscopy. The skin overlying this level was then sterilely prepped, draped, and infiltrated with 1%lidocaine for local anesthesia. Under intermittent fluoroscopic guidance, a 20gauge 3.5 inch spinal needle was inserted into the thecal sac at this leveland 12 ml of Omnipaque (300 mg Iodine per milliliter) was instilled. The contrast was pooled into the cervical and lumbar region. Prone andoblique views of the cervical and lumbar spine were obtained and then thepatient was taken to the CT scanner where CT of the cervical and lumbar spinewas performed. The patient tolerated the procedure well. The patient wasthen transferred to the pharmacy customer care specialist unit for further observation and 2hours of bedrest. FLUOROSCOPY TIME: 86 seconds FINDINGS: Free flow of contrast throughout the lumbar, and cervical spine without myelographic block. Cervical spine: Relative straightening of the cervical lordosis. Suspected trace retrolisthesis of C5 on C6. Suspected trace anterolisthesis of C7 on T1. The bones are osteopenic. Vertebral bodies are normal in height without evidence of compression fractures. Other than middle atlantoaxial joint osteoarthritis, the craniocervical junction appears normal. There ismild degenerative disc disease.. Decreased disc space heights at multiple levels. No soft tissue abnormality is identified. C2-3: There is mild disc bulge, slightly eccentric to the right. Minimal hypertrophy of the ligamentum flavum. There is no high-grade centralcanal stenosis. There is mild facet osteoarthritis. There is mild left uncovertebral joint osteoarthritis. There is mild left neural foraminal stenosis. C3-4: There is diffuse disc bulge/disc osteophyte complex. That is mild hypertrophy of the ligamentum flavum. There is mild or mild to moderate central canal stenosis. There is moderate facet osteoarthritis. There is advanced uncovertebral joint osteoarthritis. There is moderate to severe right and severe left neural foraminal stenosis. C4-5: There is mild, diffuse disc bulge, eccentric to the right, with possible small superimposed right paracentral disc protrusion. There is mild hypertrophy of the ligamentum flavum. There is mild to moderate central canal stenosis. There is mild right and moderate left facet osteoarthritis. There is moderate uncovertebral joint osteoarthritis.There is moderate or moderate to severe bilateral neural foraminal stenosis. C5-6: There is diffuse disc bulge/disc osteophyte complex. There is moderate central canal stenosis. There is mild cord compression at this level. There is mild to moderate facet osteoarthritis. There is mildright and moderate left uncovertebral joint osteoarthritis. There is minimal right and moderate left neural foraminal stenosis however, there issevere stenosis of the upper aspect of the bilateral neural foramina. C6-7: There is diffuse disc bulge. There is prominent hypertrophy of the ligamentum flavum. There is up to moderate central canal stenosis. Thereis mild to moderate facet osteoarthritis. There is mild to moderate uncovertebral joint osteoarthritis. There is mild to moderate neural foraminal stenosis. C7-T1: There is minimal disc bulge. There is no high-grade central canal stenosis. There is mild facet osteoarthritis. There is mild bilateral uncovertebral joint osteoarthritis. There is mild or mild to moderate neural foraminal stenosis. Lumbar spine: Transitional anatomy. 6 nonrib-bearing vertebral bodies are noted, with lumbarization of S1 vertebral body. Minimal anterolisthesis of L4 on L5. The alignment is otherwisemaintained. There is likely a small bone island in the right aspect of the [id number] body. Vertebral bodies are normal in height without evidence ofcompression fractures. Mild disc desiccation noted at L5-S1. The intervertebraldiscs are normal in height. The conus medullaris is at the level of L2 and no myelographic block is identified. There are mild degenerative changes of the SI joints. No soft tissue abnormality is identified. L1-L2: There is minimal disc bulge. There is no central canal stenosis. There is minimal facet osteoarthritis. There is no significant neural foraminal stenosis. L2-L3: There is mild, diffuse disc bulge.. Mild hypertrophy of the ligamentum flavum. Minimal left lateral recess stenosis. There is no high-grade central canal stenosis. There is mild facet osteoarthritis. There is no high-grade neural foraminal stenosis. Few tiny foci of airare seen in the epidural space at this level, perhaps at the site of the needle. L3-L4: There is diffuse disc bulge. There is hypertrophy of theligamentum flavum. There is overall mild spinal canal stenosis. Mild left lateral recess stenosis. There is no significant central canal stenosis. Thereis mild to moderate facet osteoarthritis. There is mild right and moderate left neural foraminal stenosis. L4-L5: There is moderate, diffuse disc bulge. That is significant hypertrophy of the ligamentum flavum and hypertrophic facet arthropathy with calcifications within the right facet joint and subtle adjacent calcifications adjacent to the anterior aspect of the facet joints bilaterally, compressing the dorsal aspect of thecal sac. There ismoderate central canal stenosis. There is mild, left worse than right bilateral lateral recess stenosis. There is advanced facet osteoarthritis. Thereis mild right and moderate left neural foraminal stenosis. L5-S1: There is mild, diffuse disc bulge. Mild hypertrophy of the ligamentum flavum. There is no high-grade central canal stenosis. Thereis efyf-rw-bumbnguh facet osteoarthritis. There is mild bilateral neural foraminal stenosis. IMPRESSION: 1.Successful lumbar puncture for cervical and lumbar myelography. 2.Free flow of contrast with no evidence of myelographic block. Cervical spine: 1.Borderline developmental cervical spinal canal stenosis andsuperimposed multilevel degenerative disc and joint disease as detailed level bylevel above, perhaps worst at C5-C6 and C6-C7, enteritis or extent C3-C4 and C4-C5. Mild cord compression is suspected at C5-C6 and to a lesserextent, perhaps mild cord abutment at C6-C7. 2.Varying degrees of neural foraminal stenoses as outlined. Lumbar spine: 1.Multilevel degenerative disc and joint disease as oxwrbefmcnacp-px-nbdgb above, worse at L4-L5, as outlined. 2.Transitional anatomy as noted above. The report is dictated by Addi Arambula MD, ([facility]) Attending Physician: Dr. Magdalena Blackmon Movie Projectionist: Dr. Addi Arambula MD, ([facility]) The procedure was performed by the: The digital assistant, and the attending radiologist was present for allcritical and mariscal portions of the procedure, and was immediately available [facility] services during the entire procedure. The attending radiologist performed the following procedural activities: IDr. Magdalena was there and supervised mariscal portions of the procedure, not scrubbed. IMagdalena MD have personally reviewed and interpretedthis examination/study. > Interpreting Provider: Magdalena Blackmon MD on 12/13/2024 12:15 PM Cornelio Lima MD CT ORDERABLES * CT Cervical Post Myelogram (12/08/2024 10:25 AM SUPPLY TECHNICIAN) Anatomical Region Laterality Modality Spine Computed Tomogra phy 12/08/2024 1:17 PM SUPPLY TECHNICIAN Impressions 12/13/2024 12:15 PM SUPPLY TECHNICIAN IMPRESSION: 1.Successful lumbar puncture for cervical and lumbar myelography. 2.Free flow of contrast with no evidence of myelographic block. Cervical spine: 1.Borderline developmental cervical spinal canal stenosis and superimposed multilevel degenerative disc and joint disease as detailed level by level above, perhaps worst at C5-C6 and C6-C7, enteritis or extent C3-C4 and C4-C5. Mild cord compression is suspected at C5-C6 and to a lesser extent, perhaps mild cord abutment at C6-C7. 2.Varying degrees of neural foraminal stenoses as outlined. Lumbar spine: 1.Multilevel degenerative disc and joint disease as detailed xzapr-ui-ftkua above, worse at L4-L5, as outlined. 2.Transitional anatomy as noted above. The report is dictated by Addi Arambula MD, ([facility]) Attending Physician: Dr. Magdalena Blackmon Movie Projectionist: Dr. Addi Arambula MD, ([facility]) The procedure was performed by the: The digital assistant, and the attending radiologist was present for all critical and mariscal portions of the procedure, and was immediately available to furnish services during the entire procedure. The attending radiologist performed the following procedural activities: Dr. Magdalena Gutierrez was there and supervised mariscal portions of the procedure, not scrubbed. IMagdalena MD have personally reviewed and interpreted this examination/study. > Interpreting Provider: Magdalena Blackmon MD on 12/13/2024 12:15 PM Narrative 12/13/2024 12:15 PM SUPPLY TECHNICIAN PROCEDURE: FL MYELOGRAM 2 OR MORE REGIONS, CT LUMBAR POST MYELOGRAM, CT CERVICAL POST MYELOGRAM DATE/TIME OF EXAM: 12/08/2024 10:34 AM CLINICAL INFORMATION: PROCEDURE: FL MYELOGRAM 2 OR MORE REGIONS, CT LUMBAR POST MYELOGRAM, CT CERVICAL POST MYELOGRAM, DATE/TIME OF EXAM: 12/08/2024 10:34 AM, LOCATION [facility] INDICATION: M54.50: Lumbar spine pain ADDITIONAL CLINICAL INFORMATION: Ordering Provider Reason For Exam: myelopathy (accession [id number]), chronic low back pain (accession [id number]) Technologist Note: None. Additional: None. EXAMINATION: 1.Lumbar puncture (LP) under fluoroscopic guidance for total myelogram 2.Computed tomography (CT) of the cervical and lumbar spine with contrast TECHNIQUE: The risks and benefits of the lumbar puncture and myelography including, but not limited to, infection, bleeding, seizure, epidural hematoma, post spinal headache, cerebrospinal fluid (CSF) leak requiring blood patch procedure, nausea, vomiting, irritation or damage to nerves causing pain or permanent injury were discussed with the patient. After alternatives were discussed and the opportunity to ask questions was provided, the patient acknowledged understanding, gave verbal and written consent, and wished to proceed. Attending physician: Dr. Blackmon was present for the mariscal portions of this procedure. The L3-4 level was localized with fluoroscopy. The skin overlying this level was then sterilely prepped, draped, and infiltrated with 1% lidocaine for local anesthesia. Under intermittent fluoroscopic guidance, a 20 gauge 3.5 inch spinal needle was inserted into the thecal sac at this level and 12 ml of Omnipaque (300 mg Iodine per milliliter) was instilled. The contrast was pooled into the cervical and lumbar region. Prone and oblique views of the cervical and lumbar spine were obtained and then the patient was taken to the CT scanner where CT of the cervical and lumbar spine was performed. The patient tolerated the procedure well. The patient was then transferred to the pharmacy customer care specialist unit for further observation and 2 hours of bedrest. FLUOROSCOPY TIME: 86 seconds FINDINGS: Free flow of contrast throughout the lumbar, and cervical spine without myelographic block. Cervical spine: Relative straightening of the cervical lordosis. Suspected trace retrolisthesis of C5 on C6. Suspected trace anterolisthesis of C7 on T1. The bones are osteopenic. Vertebral bodies are normal in height without evidence of compression fractures. Other than middle atlantoaxial joint osteoarthritis, the craniocervical junction appears normal. There is mild degenerative disc disease.. Decreased disc space heights at multiple levels. No soft tissue abnormality is identified. C2-3: There is mild disc bulge, slightly eccentric to the right. Minimal hypertrophy of the ligamentum flavum. There is no high-grade central canal stenosis. There is mild facet osteoarthritis. There is mild left uncovertebral joint osteoarthritis. There is mild left neural foraminal stenosis. C3-4: There is diffuse disc bulge/disc osteophyte complex. That is mild hypertrophy of the ligamentum flavum. There is mild or mild to moderate central canal stenosis. There is moderate facet osteoarthritis. There is advanced uncovertebral joint osteoarthritis. There is moderate to severe right and severe left neural foraminal stenosis. C4-5: There is mild, diffuse disc bulge, eccentric to the right, with possible small superimposed right paracentral disc protrusion. There is mild hypertrophy of the ligamentum flavum. There is mild to moderate central canal stenosis. There is mild right and moderate left facet osteoarthritis. There is moderate uncovertebral joint osteoarthritis. There is moderate or moderate to severe bilateral neural foraminal stenosis. C5-6: There is diffuse disc bulge/disc osteophyte complex. There is moderate central canal stenosis. There is mild cord compression at this level. There is mild to moderate facet osteoarthritis. There is mild right and moderate left uncovertebral joint osteoarthritis. There is minimal right and moderate left neural foraminal stenosis however, there is severe stenosis of the upper aspect of the bilateral neural foramina. C6-7: There is diffuse disc bulge. There is prominent hypertrophy of the ligamentum flavum. There is up to moderate central canal stenosis. There is mild to moderate facet osteoarthritis. There is mild to moderate uncovertebral joint osteoarthritis. There is mild to moderate neural foraminal stenosis. C7-T1: There is minimal disc bulge. There is no high-grade central canal stenosis. There is mild facet osteoarthritis. There is mild bilateral uncovertebral joint osteoarthritis. There is mild or mild to moderate neural foraminal stenosis. Lumbar spine: Transitional anatomy. 6 nonrib-bearing vertebral bodies are noted, with lumbarization of S1 vertebral body. Minimal anterolisthesis of L4 on L5. The alignment is otherwise maintained. There is likely a small bone island in the right aspect of the L5 vertebral body. Vertebral bodies are normal in height without evidence of compression fractures. Mild disc desiccation noted at L5-S1. The intervertebral discs are normal in height. The conus medullaris is at the level of L2 and no myelographic block is identified. There are mild degenerative changes of the SI joints. No soft tissue abnormality is identified. L1-L2: There is minimal disc bulge. There is no central canal stenosis. There is minimal facet osteoarthritis. There is no significant neural foraminal stenosis. L2-L3: There is mild, diffuse disc bulge.. Mild hypertrophy of the ligamentum flavum. Minimal left lateral recess stenosis. There is no high-grade central canal stenosis. There is mild facet osteoarthritis. There is no high-grade neural foraminal stenosis. Few tiny foci of air are seen in the epidural space at this level, perhaps at the site of the needle. L3-L4: There is diffuse disc bulge. There is hypertrophy of the ligamentum flavum. There is overall mild spinal canal stenosis. Mild left lateral recess stenosis. There is no significant central canal stenosis. There is mild to moderate facet osteoarthritis. There is mild right and moderate left neural foraminal stenosis. L4-L5: There is moderate, diffuse disc bulge. That is significant hypertrophy of the ligamentum flavum and hypertrophic facet arthropathy with calcifications within the right facet joint and subtle adjacent calcifications adjacent to the anterior aspect of the facet joints bilaterally, compressing the dorsal aspect of thecal sac. There is moderate central canal stenosis. There is mild, left worse than right bilateral lateral recess stenosis. There is advanced facet osteoarthritis. There is mild right and moderate left neural foraminal stenosis. L5-S1: There is mild, diffuse disc bulge. Mild hypertrophy of the ligamentum flavum. There is no high-grade central canal stenosis. There is ihuj-iq-qpoexcrw facet osteoarthritis. There is mild bilateral neural foraminal stenosis. Procedure Note Magdalena Blackmon MD - 12/13/2024 PROCEDURE: FL MYELOGRAM 2 OR MORE REGIONS, CT LUMBAR POST MYELOGRAM, CT CERVICAL POST MYELOGRAM DATE/TIME OF EXAM: 12/08/2024 10:34 AM CLINICAL INFORMATION: PROCEDURE: FL MYELOGRAM 2 OR MORE REGIONS, CTLUMBAR POST MYELOGRAM, CT CERVICAL POST MYELOGRAM, DATE/TIME OF EXAM:12/08/2024 10:34 AM, LOCATION [facility] INDICATION: M54.50: Lumbar spine pain ADDITIONAL CLINICAL INFORMATION: Ordering Provider Reason For Exam: myelopathy (accession [id number]), chronic low back pain (accession [id number]) Technologist Note: None. Additional: None. EXAMINATION: 1.Lumbar puncture (LP) under fluoroscopic guidance for total myelogram 2.Computed tomography (CT) of the cervical and lumbar spine withcontrast TECHNIQUE: The risks and benefits of the lumbar puncture and myelography including, but not limited to, infection, bleeding, seizure, epidural hematoma, post spinal headache, cerebrospinal fluid (CSF) leak requiring blood patch procedure, nausea, vomiting, irritation or damage to nerves causing pain or permanent injury were discussed with the patient. After alternatives were discussed and the opportunity to ask questions was provided, the patient acknowledged understanding, gave verbal andwritten consent, and wished to proceed. Attending physician: Dr. Blackmon was present for the mariscal portions ofthis procedure. The L3-4 level was localized with fluoroscopy. The skin overlying this level was then sterilely prepped, draped, and infiltrated with 1%lidocaine for local anesthesia. Under intermittent fluoroscopic guidance, a 20gauge 3.5 inch spinal needle was inserted into the thecal sac at this leveland 12 ml of Omnipaque (300 mg Iodine per milliliter) was instilled. The contrast was pooled into the cervical and lumbar region. Prone andoblique views of the cervical and lumbar spine were obtained and then thepatient was taken to the CT scanner where CT of the cervical and lumbar spinewas performed. The patient tolerated the procedure well. The patient wasthen transferred to the pharmacy customer care specialist unit for further observation and 2hours of bedrest. FLUOROSCOPY TIME: 86 seconds FINDINGS: Free flow of contrast throughout the lumbar, and cervical spine without myelographic block. Cervical spine: Relative straightening of the cervical lordosis. Suspected trace retrolisthesis of C5 on C6. Suspected trace anterolisthesis of C7 on T1. The bones are osteopenic. Vertebral bodies are normal in height without evidence of compression fractures. Other than middle atlantoaxial joint osteoarthritis, the craniocervical junction appears normal. There ismild degenerative disc disease.. Decreased disc space heights at multiple levels. No soft tissue abnormality is identified. C2-3: There is mild disc bulge, slightly eccentric to the right. Minimal hypertrophy of the ligamentum flavum. There is no high-grade centralcanal stenosis. There is mild facet osteoarthritis. There is mild left uncovertebral joint osteoarthritis. There is mild left neural foraminal stenosis. C3-4: There is diffuse disc bulge/disc osteophyte complex. That is mild hypertrophy of the ligamentum flavum. There is mild or mild to moderate central canal stenosis. There is moderate facet osteoarthritis. There is advanced uncovertebral joint osteoarthritis. There is moderate to severe right and severe left neural foraminal stenosis. C4-5: There is mild, diffuse disc bulge, eccentric to the right, with possible small superimposed right paracentral disc protrusion. There is mild hypertrophy of the ligamentum flavum. There is mild to moderate central canal stenosis. There is mild right and moderate left facet osteoarthritis. There is moderate uncovertebral joint osteoarthritis.There is moderate or moderate to severe bilateral neural foraminal stenosis. C5-6: There is diffuse disc bulge/disc osteophyte complex. There is moderate central canal stenosis. There is mild cord compression at this level. There is mild to moderate facet osteoarthritis. There is mildright and moderate left uncovertebral joint osteoarthritis. There is minimal right and moderate left neural foraminal stenosis however, there issevere stenosis of the upper aspect of the bilateral neural foramina. C6-7: There is diffuse disc bulge. There is prominent hypertrophy of the ligamentum flavum. There is up to moderate central canal stenosis. Thereis mild to moderate facet osteoarthritis. There is mild to moderate uncovertebral joint osteoarthritis. There is mild to moderate neural foraminal stenosis. C7-T1: There is minimal disc bulge. There is no high-grade central canal stenosis. There is mild facet osteoarthritis. There is mild bilateral uncovertebral joint osteoarthritis. There is mild or mild to moderate neural foraminal stenosis. Lumbar spine: Transitional anatomy. 6 nonrib-bearing vertebral bodies are noted, with lumbarization of S1 vertebral body. Minimal anterolisthesis of L4 on L5. The alignment is otherwisemaintained. There is likely a small bone island in the right aspect of the U8trebgowsx body. Vertebral bodies are normal in height without evidence ofcompression fractures. Mild disc desiccation noted at L5-S1. The intervertebraldiscs are normal in height. The conus medullaris is at the level of L2 and no myelographic block is identified. There are mild degenerative changes of the SI joints. No soft tissue abnormality is identified. L1-L2: There is minimal disc bulge. There is no central canal stenosis. There is minimal facet osteoarthritis. There is no significant neural foraminal stenosis. L2-L3: There is mild, diffuse disc bulge.. Mild hypertrophy of the ligamentum flavum. Minimal left lateral recess stenosis. There is no high-grade central canal stenosis. There is mild facet osteoarthritis. There is no high-grade neural foraminal stenosis. Few tiny foci of airare seen in the epidural space at this level, perhaps at the site of the needle. L3-L4: There is diffuse disc bulge. There is hypertrophy of theligamentum flavum. There is overall mild spinal canal stenosis. Mild left lateral recess stenosis. There is no significant central canal stenosis. Thereis mild to moderate facet osteoarthritis. There is mild right and moderate left neural foraminal stenosis. L4-L5: There is moderate, diffuse disc bulge. That is significant hypertrophy of the ligamentum flavum and hypertrophic facet arthropathy with calcifications within the right facet joint and subtle adjacent calcifications adjacent to the anterior aspect of the facet joints bilaterally, compressing the dorsal aspect of thecal sac. There ismoderate central canal stenosis. There is mild, left worse than right bilateral lateral recess stenosis. There is advanced facet osteoarthritis. Thereis mild right and moderate left neural foraminal stenosis. L5-S1: There is mild, diffuse disc bulge. Mild hypertrophy of the ligamentum flavum. There is no high-grade central canal stenosis. Thereis rqgm-re-mqagxauv facet osteoarthritis. There is mild bilateral neural foraminal stenosis. IMPRESSION: 1.Successful lumbar puncture for cervical and lumbar myelography. 2.Free flow of contrast with no evidence of myelographic block. Cervical spine: 1.Borderline developmental cervical spinal canal stenosis andsuperimposed multilevel degenerative disc and joint disease as detailed level bylevel above, perhaps worst at C5-C6 and C6-C7, enteritis or extent C3-C4 and C4-C5. Mild cord compression is suspected at C5-C6 and to a lesserextent, perhaps mild cord abutment at C6-C7. 2.Varying degrees of neural foraminal stenoses as outlined. Lumbar spine: 1.Multilevel degenerative disc and joint disease as pnuaspknimntt-af-kwwjj above, worse at L4-L5, as outlined. 2.Transitional anatomy as noted above. The report is dictated by Addi Arambula MD, (md do resident urgent care) Attending Physician: Dr. Magdalena Blackmon Movie Projectionist: Dr. Addi Arambula MD, (md do resident urgent care) The procedure was performed by the: The digital assistant, and the attending radiologist was present for allcritical and mariscal portions of the procedure, and was immediately [facility] during the entire procedure. The attending radiologist performed the following procedural activities: I, Dr. Magdalena Blackmon was there and supervised mariscal portions of the procedure, not scrubbed. I, Magdalena Blackmon MD have personally reviewed and interpretedthis examination/study. > Interpreting Provider: Magdalena Blackmon MD on 12/13/2024 12:15 PM Cornelio Lima MD CT ORDERABLES * XR Spine Entire 2 or 3Vw (11/23/2024 11:09 AM SUPPLY TECHNICIAN) Anatomical Region Laterality Modality Spine Radiographic Erna ging 11/23/2024 11:3 1 AM SUPPLY TECHNICIAN Impressions 11/23/2024 11:34 AM SUPPLY TECHNICIAN IMPRESSION: Mild scoliosis. > Interpreting Provider: Baljinder Henson MD on 11/23/2024 11:34 AM Narrative 11/23/2024 11:34 AM SUPPLY TECHNICIAN PROCEDURE: XR SPINE ENTIRE 2 OR 3VW DATE/TIME OF EXAM: 11/23/2024 11:09 AM CLINICAL INFORMATION: None relevant/not provided if blank. Indication: M54.50: Lumbar spine pain Additional History: COMPARISON: Cervical and lumbar spine radiographs dated 11/23/2024. TECHNIQUE: FINDINGS: A deep brain stimulator is present with generator in the left anterior chest wall and leads extending cranially in the right and left sides of the neck. There is mild thoracolumbar scoliosis including an upper to mid thoracic dextro curve measuring 10 degrees, a lower thoracic levo curve measuring 10 degrees, and a lumbar dextro curve measuring less than 10 degrees. The cervical lordosis is straightened. The thoracic kyphosis and lumbar lordosis are maintained. There is grade 1 anterolisthesis at L4-5. There is moderate cervical and mild thoracic and lumbar degenerative change. Procedure Note Baljinder Henson MD - 11/23/2024 PROCEDURE: XR SPINE ENTIRE 2 OR 3VW DATE/TIME OF EXAM: 11/23/2024 11:09 AM CLINICAL INFORMATION: None relevant/not provided if blank. Indication: M54.50: Lumbar spine pain Additional History: COMPARISON: Cervical and lumbar spine radiographs dated 11/23/2024. TECHNIQUE: FINDINGS: A deep brain stimulator is present with generator in the left anterior chest wall and leads extending cranially in the right and left sides ofthe neck. There is mild thoracolumbar scoliosis including an upper to mid thoracic dextro curve measuring 10 degrees, a lower thoracic levo curve [id number] degrees, and a lumbar dextro curve measuring less than 10 degrees. The cervical lordosis is straightened. The thoracic kyphosis and lumbar lordosis are maintained. There is grade 1 anterolisthesis at L4-5. Thereis moderate cervical and mild thoracic and lumbar degenerative change. IMPRESSION: Mild scoliosis. > Interpreting Provider: Baljinder Henson MD on 11/23/2024 11:34 AM Cornelio Lima MD DIAGNOSTIC ERNA GING ORDERABLES * XR Cervical Spine 2 or 3Vw (11/23/2024 11:06 AM SUPPLY TECHNICIAN) Anatomical Region Laterality Modality Spine Radiographic Erna ging 11/23/2024 11:2 9 AM SUPPLY TECHNICIAN Impressions 11/23/2024 11:31 AM SUPPLY TECHNICIAN IMPRESSION: Moderate cervical spondylosis. > Interpreting Provider: Baljinder Henson MD on 11/23/2024 11:31 AM Narrative 11/23/2024 11:31 AM SUPPLY TECHNICIAN PROCEDURE: XR CERVICAL SPINE 2 OR 3VW DATE/TIME OF EXAM: 11/23/2024 11:06 AM CLINICAL INFORMATION: None relevant/not provided if blank. Indication: M54.50: Lumbar spine pain Additional History: COMPARISON: None. FINDINGS: There is straightening of the usual cervical lordosis. No fracture or subluxation is present. There is moderate multilevel degenerative disc and joint disease. Leads are visible in the right and left sides of the upper thorax, neck, and head. Procedure Note Baljinder Henson MD - 11/23/2024 PROCEDURE: XR CERVICAL SPINE 2 OR 3VW DATE/TIME OF EXAM: 11/23/2024 11:06 AM CLINICAL INFORMATION: None relevant/not provided if blank. Indication: M54.50: Lumbar spine pain Additional History: COMPARISON: None. FINDINGS: There is straightening of the usual cervical lordosis. No fracture or subluxation is present. There is moderate multilevel degenerative discand joint disease. Leads are visible in the right and left sides of theupper thorax, neck, and head. IMPRESSION: Moderate cervical spondylosis. > Interpreting Provider: Baljinder Henson MD on 11/23/2024 11:31 AM Cornelio Lima MD DIAGNOSTIC ERNA GING ORDERABLES * XR Lumbar Spine 2 or 3Vw (11/23/2024 10:00 AM SUPPLY TECHNICIAN) Anatomical Region Laterality Modality Spine Computed Radiogr aphy 11/23/2024 10:3 8 AM SUPPLY TECHNICIAN Impressions 11/23/2024 10:39 AM SUPPLY TECHNICIAN IMPRESSION: Mild to moderate degenerative changes. > Interpreting Provider: Baljinder Henson MD on 11/23/2024 10:39 AM Narrative 11/23/2024 10:39 AM SUPPLY TECHNICIAN PROCEDURE: XR LUMBAR SPINE 2 OR 3VW DATE/TIME OF EXAM: 11/23/2024 10:00 AM CLINICAL INFORMATION: None relevant/not provided if blank. Indication: M54.50: Lumbar spine pain Additional History: COMPARISON: 09/19/2024. FINDINGS: S1 appears partly lumbarized. There is mild lumbar dextroscoliosis. The lordosis is normal. There is grade 1 anterolisthesis at L4-5, not changed. There is mild to moderate multilevel degenerative disc and joint disease. No fracture is seen. Procedure Note Baljinder Henson MD - 11/23/2024 PROCEDURE: XR LUMBAR SPINE 2 OR 3VW DATE/TIME OF EXAM: 11/23/2024 10:00 AM CLINICAL INFORMATION: None relevant/not provided if blank. Indication: M54.50: Lumbar spine pain Additional History: COMPARISON: 09/19/2024. FINDINGS: S1 appears partly lumbarized. There is mild lumbar dextroscoliosis. The lordosis is normal. There is grade 1 anterolisthesis at L4-5, notchanged. There is mild to moderate multilevel degenerative disc and jointdisease. No fracture is seen. IMPRESSION: Mild to moderate degenerative changes. > Interpreting Provider: Baljinder Henson MD on 11/23/2024 10:39 AM Cornelio Lima MD DIAGNOSTIC ERNA GING ORDERABLES * PATHOLOGY TISSUE (11/11/2024 10:16 AM SUPPLY TECHNICIAN) Case Report Surgical Pathology Report Case: [id number] Authorizing Provider: Sixto Cornell MD Collected: 11/11/2024 10:16 AM Ordering Location: [facility] Received: 11/11/2024 10:58 AM Pathologist: Kenyatta Norris MD Specimens: A) - Polyp Ascending, ascending colon polyp B) - Polyp Descending, descending colon polyps 11/14/2024 3:20 PM [facility] Final Diagnosis Large intestine, ascending colon polyp, biopsy (A): - Tubular adenoma Large intestine, descending colon polyps, biopsy (B): - Tubular adenoma(s), fragmented 11/14/2024 3:20 PM [facility] Microscopic Description and Comment Microscopic examination substantiates the final diagnosis. 11/14/2024 3:20 PM [facility] Clinical History The patient is a 69-year-old woman who presents for high risk colon cancer surveillance (personal history of colonic polyps). Operative procedure/findings: Colonoscopy - 2 mm ascending colon polyp, 4 and 5 mm descending colon polyps, resected and retrieved 11/14/2024 3:20 PM [facility] Gross Description The requisition and specimen(s) are identified with the patient's name Sheri Shin . Received in formalin, specimen A, consists of a 0.2 x 0.2 x 0.1 cm lu-pink irregular tissue fragment which is submitted in toto in a single cassette labeled A1. Received in formalin, specimen B, consists of multiple lu-pink irregular tissue fragments ranging from 0.3 to 0.6 cm in greatest dimension and aggregating to 1.4 x 1.0 x 0.3 cm which are submitted in toto in a single cassette labeled B1. RB 11/14/2024 3:20 PM [facility] Pathologist Location at [facility] 11/14/2024 3:20 PM [facility] Disclaimer The performance characteristics of all immunohistochemical and indirect immunofluorescence stains (if any) cited in this report were determined by the Histopathology Laboratory of [facility]. Some of these tests were developed by our own laboratory and have not been cleared or approved by the US Food and Drug Administration. The FDA does not require this test to go through premarket FDA review. These tests are used for clinical purposes. They should not be regarded as investigational or for research. This laboratory is certified under the Clinical Laboratory Improvement Amendments (CLIA) as qualified to perform high complexity clinical laboratory testing. This case has been personally reviewed and interpreted by the attending (teaching) pathologist. 11/14/2024 3:20 PM SUPPLY TECHNICIAN [facility] Embedded Images 11/14/2024 3:20 PM SUPPLY TECHNICIAN [facility] Biopsy, NOS POLYP / Unknown 11/11/2024 1 0:16 AM SUPPLY TECHNICIAN 11/11/2024 10:58 AM SUPPLY TECHNICIAN Comment:Pre-op diagnosis: Screen for colon cancer [Z12.11] Biopsy, NOS POLYP / Unknown 11/11/2024 1 0:19 AM SUPPLY TECHNICIAN 11/11/2024 10:58 AM SUPPLY TECHNICIAN Comment:Pre-op diagnosis: Screen for colon cancer [Z12.11] Sixto Cornell MD LAB - PATHOLOGY/CYTO LOGY ORDERABLES Performing Organization Address City/State/[place] Co de Phone Number [facility] [address] [phone] * ENDOSCOPY, COLON, SCREENING (11/11/2024 9:52 AM SUPPLY TECHNICIAN) Report Endoscopy POC Endoscopy Department Report _ Patient Name: Sheri Shin Procedure Date: 11/11/2024 9:52 AM Date of : 1955 Classification: Outpatient Gender: Female Ethnicity: Not or Race: White _ Providers: Sixto Cornell MD, Juvenal Crockett (Fellow) Referring MD: Kerry Coffman (Referring MD) Procedure: Colonoscopy Indications: High risk colon cancer surveillance: Personal history of colonic polyps Medications: Monitored Anesthesia Care Description of Procedure: Pre-Anesthesia Assessment: - Prior to the procedure, a History and Physical was performed, and patient medications and allergies were reviewed. The patient's tolerance of previous anesthesia was also reviewed. The risks and benefits of the procedure and the sedation options and risks were discussed with the patient. All questions were answered, and informed consent was obtained. Prior Anticoagulants: The patient has taken no anticoagulant or antiplatelet agents. ASA Grade Assessment: II - A patient with mild systemic disease. After reviewing the risks and benefits, the patient was deemed in satisfactory condition to undergo the procedure. After I obtained informed consent, the scope was passed under direct vision. Throughout the procedure, the patient's blood pressure, pulse, and oxygen saturations were monitored continuously. The Colonoscope was introduced through the anus and advanced to the cecum, identified by appendiceal orifice and ileocecal valve. The colonoscopy was performed without difficulty. The patient tolerated the procedure well. The quality of the bowel preparation was evaluated using the BBPS ([place] Bowel Preparation Scale) with scores of: Right Colon = 3, Transverse Colon = 3 and Left Colon = 3 (entire mucosa seen well with no residual staining, small fragments of stool or opaque liquid). The total BBPS score equals 9. The ileocecal valve, appendiceal orifice, and rectum were photographed. Findings: The perianal and digital rectal examinations were normal. A 2 mm polyp was found in the ascending colon. The polyp was sessile. The polyp was removed with a jumbo cold forceps. Resection and retrieval were complete. A 5 mm polyp was found in the descending colon. The polyp was sessile. The polyp was removed with a cold snare. Resection and retrieval were complete. A 4 mm polyp was found in the descending colon. The polyp was sessile. The polyp was removed with a cold snare. Resection and retrieval were complete. Many small and large-mouthed diverticula were found in the sigmoid colon. The exam was otherwise without abnormality. Estimated Blood Loss: Estimated blood loss: none. Complications: No immediate complications. Impression: - One 2 mm polyp in the ascending colon, removed with a jumbo cold forceps. Resected and retrieved. - One 5 mm polyp in the descending colon, removed with a cold snare. Resected and retrieved. - One 4 mm polyp in the descending colon, removed with a cold snare. Resected and retrieved. - Diverticulosis in the sigmoid colon. Recommendation: - Discharge patient to home. - Resume previous diet. - Continue present medications. - Await pathology results. - Repeat colonoscopy in 5 years for surveillance. - Return to referring physician as previously scheduled. - Patient has a contact number available for emergencies. The signs and symptoms of potential delayed complications were discussed with the patient. Return to normal activities tomorrow. Written discharge instructions were provided to the patient. Attending Participation: I was present and participated during the entire procedure, including non-mariscal portions. Procedure Code(s): --- Professional --- 14919, Colonoscopy, flexible; with removal of tumor(s), polyp(s), or other lesion(s) by snare technique 49736, 59, Colonoscopy, flexible; with biopsy, single or multiple Diagnosis Code(s): --- Professional --- Z86.010, Personal history of colonic polyps D12.2, Benign neoplasm of ascending colon D12.4, Benign neoplasm of descending colon K57.30, Diverticulosis of large intestine without perforation or abscess without bleeding CPT copyright 2021 [employer]. All rights reserved. The codes documented in this report are preliminary and upon remote inpatient coder review may be revised to meet current compliance requirements. Sixto Cornell MD 11/11/2024 10:36:45 AM This report has been signed electronically. Note Initiated On: 11/11/2024 9:52 AM Number of Addenda: [address] [facility] [address] [place] [id number] [facility] 11/11/2024 9:52 AM SUPPLY TECHNICIAN Sixto Cornell MD GI PROCEDURE ORDERAB [facility] * GLUCOSE - POINT OF CARE (11/11/2024 9:19 AM SUPPLY TECHNICIAN) Glucose WB/POC 99 70 - 99 mg/dL 11/11/2024 9:54 AM SUPPLY TECHNICIAN [facility] Specimen Type Venous 11/11/2024 9:54 AM SUPPLY TECHNICIAN [facility] Blood BLOOD SPECIMEN / Unknown 11/11/2024 9:19 AM SUPPLY TECHNICIAN 11/11/2024 9:54 AM SUPPLY TECHNICIAN Sixto Cornell MD LAB - POINT OF CARE ORDERABLES Performing Organization Address [facility] de Phone Number [facility] [address] [place] [address], [facility] [phone] * CALPROTECTIN FECAL (11/07/2024 3:52 PM SUPPLY TECHNICIAN) Calprotectin Fecal 69 mcg/g [facility] Comment: Reference Range: <50 Normal 50-120 Borderline >120 Elevated Calprotectin in Crohn's disease and ulcerative colitis can be five to several thousand times above the reference population (50 mcg/g or less). Levels are usually 50 mcg/g or less in healthy patients and with irritable bowel syndrome. Repeat testing in 4-6 weeks is suggested for borderline values. Test Performed at: [facility] [address] [place] [address] JARRELL CALDERON MD,PHD,EDGARDO Stool STOOL SPECIMEN / Unknown 11/07/2024 3:52 PM SUPPLY TECHNICIAN 11/08/2024 4:47 AM SUPPLY TECHNICIAN Yolanda Greer AUDIOLOGIST-LAY UP OPERATOR LAB - CRISTINA DY FLUID ORDERABLES Performing Organization Address City/[facility]/ZIP Co de Phone Number [facility] [address] [place] [address] * CULTURE STOOL PANEL (11/07/2024 3:52 PM SUPPLY TECHNICIAN) Campylobacter Antigen [facility] Comment: CAMPYLOBACTER SPP. AG,EIA Micro Number: [id number] Test Status: Final Specimen Source: Stool Specimen Quality: Adequate Campy Ag Result: Not Detected Reference Range: Not Detected EIA [facility] Comment: SHIGA TOXINS, EIA W/RFL TO E.COLI O157 CULTURE Micro Number: [id number] Test Status: Final Specimen Source: Stool Specimen Quality: Adequate Shiga Toxin: Not Detected Reference Range: Not Detected Culture [facility] Comment: SALMONELLA AND SHIGELLA, CULTURE Micro Number: [id number] Test Status: Final Specimen Source: Stool Specimen Quality: Adequate Result: No Salmonella or Shigella isolated Test Performed at: [id number] [id number] SAROJ FAUSTIN MD Stool STOOL SPECIMEN / Unknown 11/07/2024 3:52 PM SUPPLY TECHNICIAN 11/07/2024 11:51 PM SUPPLY TECHNICIAN Yolanda Greer APRNMOUNT [facility]INT [facility] Wiren BoardLOGY ORDERABLES Performing Organization Address [facility]/[place] Co de Phone Number [address] [address] * C DIFFICILE CYTOTOXIN (11/07/2024 3:51 PM SUPPLY TECHNICIAN) Cytotoxin Assay Stool NOT DETECTED [facility] Comment: REFERENCE RANGE: NOT DETECTED Per CDC the Clostridium difficile cytotoxicity assay, order code 4408, has served as a historical gold standard for diagnosing clinical significant disease caused by Clostridium difficile, however, it is not timely for routine diagnosis. ASM and ACG guidelines now recognize either two step testing using Clostridium difficile toxin/Glutamate Dehydrogenase (GDH) with Reflex to PCR, order code 74310 or Clostridium difficile toxin B, Qualitative real time PCR, test code 70766 to be more sensitive and timely methods for the diagnosis of C. difficile colitis. For additional information, please refer to http://education.Elixserve/faq/VEX776 (This link is being provided for informational/ educational purposes only.) Test Performed at: [facility] [address] [place] [address] JARRELL CALDERON MD,PHD,EDGARDO Stool STOOL SPECIMEN / Unknown 11/07/2024 3:51 PM SUPPLY TECHNICIAN 11/08/2024 4:58 AM SUPPLY TECHNICIAN Yolanad Greer APRNMOUNT [facility] Wiren BoardLOGY ORDERABLES Performing Organization Address [facility]/[place] Co de Phone Number [address] [address] * PROC DEEP BRAIN STIMULATOR (11/03/2024 2:08 PM SUPPLY TECHNICIAN) Narrative Moncho Salcedo APRNLUIS MANUEL - 11/03/2024 2:08 PM SUPPLY TECHNICIAN Moncho Salcedo APRNCharlaLAY UP OPERATOR 11/03/2024 4:00 PM Please see office notes for documentation- Thanks Moncho Salcedo APRN-LAY UP OPERATOR PROCEDURE/MINOR SURGICAL ORDERABLES * XR Knee Left 4Vw or More (09/19/2024 9:18 AM SUPPLY TECHNICIAN) Anatomical Region Laterality Modality Lower Extremity Digital Radiogra phy 09/19/2024 10:0 4 AM SUPPLY TECHNICIAN Impressions 09/19/2024 10:41 AM SUPPLY TECHNICIAN IMPRESSION: No acute fracture or dislocation identified. Report dictated by Arnoldo Walker MD (md do resident urgent care). Baljinder Gutierrez MD have personally reviewed and interpreted this examination/study. > Interpreting Provider: Baljinder Henson MD on 09/19/2024 10:41 AM Narrative 09/19/2024 10:41 AM SUPPLY TECHNICIAN PROCEDURE: XR KNEE LEFT 4VW OR MORE, DATE/TIME OF EXAM: 09/19/2024 9:19 AM, LOCATION [facility] INDICATION: M25.562: Acute pain of left knee ADDITIONAL CLINICAL INFORMATION: COMPARISON: None. FINDINGS: The osseous structures are intact and well aligned without acute fracture or dislocation. The knee joint space is preserved. No joint effusion is seen. Procedure Note Baljinder Henson MD - 09/19/2024 PROCEDURE: XR KNEE LEFT 4VW OR MORE, DATE/TIME OF EXAM: 09/19/2024 9:19 AM, LOCATION [facility] INDICATION: M25.562: Acute pain of left knee ADDITIONAL CLINICAL INFORMATION: COMPARISON: None. FINDINGS: The osseous structures are intact and well aligned without acutefracture or dislocation. The knee joint space is preserved. No joint effusion is seen. IMPRESSION: No acute fracture or dislocation identified. Report dictated by Arnoldo Walker MD (md do resident urgent care). Baljinder Gutierrez MD have personally reviewed and interpreted this examination/study. > Interpreting Provider: Baljinder Henson MD on 09/19/2024 10:41 AM Kerry India Hook DO DIAGNOSTIC IMAGING O RDERABLES * XR Lumbar Spine 4Vw or More (09/19/2024 9:18 AM SUPPLY TECHNICIAN) Anatomical Region Laterality Modality Spine Digital Radiogra phy 09/19/2024 10:2 2 AM SUPPLY TECHNICIAN Impressions 09/19/2024 3:01 PM SUPPLY TECHNICIAN IMPRESSION: Moderate dextroscoliosis. Grade 1 anterior spondylolisthesis of L4 relative to L5 seen in association with mild instability as discussed above. > Dictated by Kim Noonan MD, (md do resident urgent care). I, Sergio Omalley MD have personally reviewed and interpreted this examination/study. > Interpreting Provider: Sergio Omalley MD on 09/19/2024 3:01 PM Narrative 09/19/2024 3:01 PM SUPPLY TECHNICIAN PROCEDURE: XR LUMBAR SPINE 4VW OR MORE, DATE/TIME OF EXAM: 09/19/2024 9:19 AM, LOCATION [facility] INDICATION: M54.50: Acute bilateral low back pain without sciatica ADDITIONAL CLINICAL INFORMATION: Ordering Provider Reason For Exam: Technologist Note: Additional: COMPARISON: None. TECHNIQUE: Upright full length AP, lateral neutral, lateral flexion and lateral extension views were obtained. FINDINGS/IMPRESSION: Moderate dextroscoliosis of the lumbar spine noted. Grade 1 anterior spondylolisthesis of L4 relative to L5 measured at approximately 4 to 5 mm on the lateral neutral view, increasing to approximately 8 to 9 mm on the lateral flexion view and decreasing slightly to approximately 4 mm on the lateral extension view. Elsewhere the lateral alignment appears relatively normal. No evident compression deformity or fracture or definite pars defect is identified. The disc spaces are preserved except for mild disc space and of L5-S1.. The sacroiliac joints are normal. Procedure Note Sergio Omalley MD - 09/19/2024 PROCEDURE: XR LUMBAR SPINE 4VW OR MORE, DATE/TIME OF EXAM: 49:19 AM, LOCATION [facility] INDICATION: M54.50: Acute bilateral low back pain without sciatica ADDITIONAL CLINICAL INFORMATION: Ordering Provider Reason For Exam: Technologist Note: Additional: COMPARISON: None. TECHNIQUE: Upright full length AP, lateral neutral, lateral flexion and lateral extension views were obtained. FINDINGS/IMPRESSION: Moderate dextroscoliosis of the lumbar spine noted. Grade 1 anterior spondylolisthesis of L4 relative to L5 measured at approximately 4 to 5mm on the lateral neutral view, increasing to approximately 8 to 9 mm onthe lateral flexion view and decreasing slightly to approximately 4 mm onthe lateral extension view. Elsewhere the lateral alignment appearsrelatively normal. No evident compression deformity or fracture or definite pars defect is identified. The disc spaces are preserved except for mild disc space andof L5-S1.. The sacroiliac joints are normal. IMPRESSION: Moderate dextroscoliosis. Grade 1 anterior spondylolisthesis of L4 relative to L5 seen inassociation with mild instability as discussed above. > Dictated by Kim Noonan MD, (md do resident urgent care). I, Sergio Omalley MD have personally reviewed and interpreted this examination/study. > Interpreting Provider: Sergio Omalley MD on 09/19/2024 3:01 PM Kerryher Coffman DO DIAGNOSTIC IMAGING O RDERABLES * (ABNORMAL) COMPREHENSIVE METABOLIC PANEL (07/20/2024 11:49 AM CDT) BUN 10 7 - 26 mg/dL 07/20/2024 12:52 PM [facility] Creatinine 0.80 0.56 - 0.96 mg/dL 07/20/2024 12:52 PM [facility] Sodium 139 136 - 145 mmol/L 07/20/2024 12:52 PM [facility] Potassium 4.3 3.5 - 4.5 mmol/L 07/20/2024 12:52 PM [facility] Chloride 103 98 - 107 mmol/L 07/20/2024 12:52 PM [facility] CO2 28 22 - 29 mmol/L 07/20/2024 12:52 PM [facility] Glucose 165(H) 70 - 115 mg/dL 07/20/2024 12:52 PM [facility] Calcium 9.8 8.4 - 10.2 mg/dL 07/20/2024 12:52 PM [facility] Protein Total 7.1 6.0 - 8.3 g/dL 07/20/2024 12:52 PM [facility] Albumin 4.2 3.4 - 5.0 g/dL 07/20/2024 12:52 PM [facility] Bilirubin Total 0.2 0.2 - 1.2 mg/dL 07/20/2024 12:52 PM [facility] Alkaline Phosphatase 124 40 - 150 U/L 07/20/2024 12:52 PM [facility] ALT 16 5 - 55 U/L 07/20/2024 12:52 PM [facility] AST 20 5 - 34 U/L 07/20/2024 12:52 PM [facility] Anion Gap 8 6 - 16 07/20/2024 12:52 PM [facility] BUN/Creatinine Ratio 13 7 - 23 07/20/2024 12:52 PM [facility] Osmolality Calculated 291 275 - 295 mOsm/kg 07/20/2024 12:52 PM [facility] Albumin/Globulin Ratio 1.4 1.1 - 2.3 07/20/2024 12:52 PM [facility] eGFR by CKD-EPI 80(L) >=90 mL/min/1.7 3 m2 07/20/2024 12:52 PM [facility] Blood BLOOD SPECIMEN / Unknown Lab Venipuncture / Unknown 07/20/2024 11:49 AM CDT 07/20/2024 12:17 PM CDT Yolanda Greer AUDIOLOGIST-LAY UP OPERATOR LAB - CH EMISTRY ORDERABLES [facility] [address] [place] [address], [facility] [phone] * HEMOGLOBIN A1C - POINT OF CARE (AMB) [facility] (04/04/2024 11:34 AM CDT) Hemoglobin A1c POCT 5.4 % [address] BLOOD SPECIMEN / Unknown 04/04/2024 11:34 AM CDT Kerry Coffman DO LAB - POINT OF CARE ORDERABLES [address] [place] [address], [facility] [phone] * MICROALB/CREAT RATIO URINE RANDOM PANEL (02/05/2023 12:26 PM CDT) Creatinine Urine 63 20 - 275 mg/dL [facility] Microalbumin Urine <0.2 mg/dL [facility] Comment: Reference Range Not established Microalbumin/Creat inine Ratio NOTE <30 mcg/mg creat [facility] Comment: NOTE: The urine albumin value is less than 0.2 mg/dL therefore we are unable to calculate excretion and/or creatinine ratio. The ADA defines abnormalities in albumin excretion as follows: Albuminuria Category Result (mcg/mg creatinine) Normal to Mildly increased <30 Moderately increased 30-299 Severely increased > OR = 300 The ADA recommends that at least two of three specimens collected within a 3-6 month period be abnormal before considering a patient to be within a diagnostic category. Test Performed at: [facility] [address] [place] [address] SAROJ FAUSTIN MD 02/05/2023 12:2 6 PM CDT 02/05/2023 12:27 PM CDT Marquise Adames MD LAB - URINE CHEMISTR Y ORDERABLES Performing Organization Address City/State/[place] Co de Phone Number [facility] [id number] [place] [address] from Last 3 Months or Most Recently Relevant to Health Maintenance Advance Directives * Full Code (Latest Code Status on File) Date Activated Date Inactivated Comments 08/29/2022 4:40 PM 08/31/2022 1:59 PM * Full Code Date Activated Date Inactivated Comments 03/17/2022 3:37 PM 03/19/2022 1:47 PM Care Teams Infrastructure Technician Relationship Specialty Start Date End Date Kerry Coffman DO [address] OF [facility] [place] [address] PCP - General Internal Medicine 12/15/23
--- OUTSIDE RECORDS SUMMARY | 2024-12-13 20:56 | XMS_ITS | Referral Summary ---
Author Organization [facility] Address [address] [place] [id number] Care Team Providers Care Subsea Engineer Name Role Phone Kerry Coffman DO Primary Care Provider Encounters Date Type Department Care Team Description 11/21/2024 1:50 PM LOIN PULLER - 11/21/2024 11:59 PM LOIN PULLER Hospital Encounter [facility] Radiology at [facility] [address] [place] [phone] Discharge Disposition: Discharge to home or self care 11/21/2024 1:20 PM LOIN PULLER Office Visit [facility] Rheumatology [address] [facility] 2nd Floor [address] [place] [phone] Marialuisa Franklin, SAMI Rheumatoid arthritis with negative rheumatoid factor, involving unspecified site (HCC) (Primary Dx); High risk medication use 11/15/2024 10:40 AM LOIN PULLER - 11/15/2024 11:59 PM LOIN PULLER Hospital Encounter [address] [phone] High risk medication use Discharge Disposition: Discharge to home or self care 11/15/2024 10:30 AM LOIN PULLER Infusion [facility] Infusion Therapy [address] [facility] 2nd Floor [address] [place] [id number] Rheumatoid arthritis with negative rheumatoid factor, involving unspecified site (HCC) (Primary Dx) 10/18/2024 10:30 AM LOIN PULLER Infusion [facility] Infusion Therapy [address] [facility] 2nd Floor [address] [place] [phone] Rheumatoid arthritis with negative rheumatoid factor, involving unspecified site (HCC) (Primary Dx) from Last 3 Months Allergies Active Allergy Reactions Criticality Noted Date Comments Penicillins Unknown 10/21/2018 Sulfa (Sulfonamide Antibiotics) Rash Medium 10/12 Medications gabapentin (NEURONTIN) 100 mg capsule TAKE 1 CAPSULE BY MOUTH 4 TIMES DAILY 0 Active atorvastatin (LIPITOR) 20 mg tablet TAKE 1 TABLET BY MOUTH ONCE DAILY DIRECTED 0 Active SUMAtriptan (IMITREX) 100 mg tablet TAKE 1 TABLET BY MOUTH ONCE DAILY NEEDED FOR HEADACHE (MAX OF 2 TABLETS PER DAY) 0 Active propranolol LA (INDERAL LA) 120 mg 24 hr capsule TAKE 1 CAPSULE BY MOUTH ONCE DAILY DIRECTED 0 Active fluticasone propionate (FLONASE) 50 mcg/actuation nasal spray USE 2 SPRAY(S) IN EACH NOSTRIL ONCE DAILY DIRECTED 0 Active sertraline (ZOLOFT) 100 mg tablet 2 (two) times a day 0 Active clonazePAM (KlonoPIN) 0.5 mg tablet daily 1 Active lamoTRIgine (LaMICtal) 200 mg tablet 2 (two) times a day 1 Active loperamide (IMODIUM) 2 mg capsule Take 1 capsule (2 mg total) by mouth 4 (four) times a day as needed for diarrhea Active pseudoephedrin e ER (SUDAFED) 120 mg 12 hr tabletIndicati ons:Nasal Congestion Take 1 tablet (120 mg total) by mouth every 12 (twelve) hours Active primidone (MYSOLINE) 250 mg tablet 2 (two) times a day 1 Active loratadine (CLARITIN) 10 mg tablet Take 1 tablet (10 mg total) by mouth daily 2 Active cyclobenzaprin e (FLEXERIL) 10 mg tablet Take 1 tablet (10 mg total) by mouth nightly as needed 2 Active calcium carbonate-patrica min D3 1,500 mg (600mg elemental) -800 unit per tablet Take 1 tablet by mouth 2 (two) times a day Active cyanocobalamin (Vitamin B-12) 500 mcg tablet Take 1 tablet (500 mcg total) by mouth daily Active blood glucose diagnostic (glucose blood) strip 1 each by Not Applicable route 2 (two) times a day 3 Active OneTouch Ultra Test strip USE 1 STRIP TO CHECK GLUCOSE TWICE DAILY 3 Active OneTouch Delica Plus Lancet 33 gauge misc USE 1 TO CHECK GLUCOSE ONCE DAILY 3 Active alendronate (FOSAMAX) 70 mg tablet Take 1 tablet (70 mg total) by mouth 4 Active ARIPiprazole (ABILIFY) 2 mg tablet Take 1 tablet (2 mg total) by mouth bacteriologist pharmaceutical before breakfast 4 Active azelastine (ASTELIN) 137 mcg (0.1 %) nasal spray Administer 1 spray into affected nostril(s) 2 (two) times a day 4 Active latanoprost (XALATAN) 0.005 % ophthalmic solution Administer 1 drop into affected eye(s) nightly 4 Active polyethylene glycol 236-22.74-6.74 -5.86 gram solution as directed 4 Active Emgality Pen 120 mg/mL pen injector Inject 120 mg under the skin every 30 (thirty) days 5 Active hydroxychloroq uine (PLAQUENIL) 200 mg tablet Take 1.5 tablets (300 mg total) by mouth daily 135 tablet 1 5 Active azaTHIOprine (IMURAN) 50 mg tablet Take 1 tablet (50 mg total) by mouth daily 30 tablet 3 5 05/20/20 25 Active azaTHIOprine (IMURAN) 50 mg tablet Take 1 tablet (50 mg total) by mouth daily 30 tablet 3 4 11/21/19 25 Discontinu ed(Reorder ) hydroxychloroq uine (PLAQUENIL) 200 mg tablet Take 1.5 tablets (300 mg total) by mouth daily 135 tablet 1 4 11/21/19 25 Discontinu ed(Reorder ) Active Problems Problem Noted Date Diagnosed Date Rheumatoid arthritis with negative rheumatoid fa ctor 05/15/2023 Social History Tobacco Use Types Packs/Day Years Used Date Smoking Tobacco: Former Passive Smoke Exposure: Past Smokeless Tobacco: Never Tobacco Cessation:Counseling Given: Not Answered Comments Unknown Sex and Gender Information Value Date Recorded Sex Assigned at Not on file Legal Sex Female 10:45 PM LOIN PULLER Gender Identity Not on file Sexual Orientation Not on file Last Filed Vital Signs Vital Sign Reading Time Taken Comments Blood Pressure 93/58 11/21/2024 1:01 PM LOIN PULLER Pulse 63 11/21/2024 1:01 PM LOIN PULLER Temperature 36.6 C (97.8 F) 11/21/2024 1:01 PM LOIN PULLER Respiratory Rate - - Oxygen Saturation 99% 11/21/2024 1:01 PM LOIN PULLER Inhaled Oxygen Concentration - - Weight 68 kg (150 lb) 11/21/2024 1:01 PM LOIN PULLER Height 167.6 cm (5' 5.98 ) 11/21/2024 1:01 PM CS T Body Mass Index 24.22 11/21/2024 1:01 PM LOIN PULLER Plan of Treatment Not on file Procedures Procedure Name Priority Date/Time Associated Diagnosis Comments XR HAND RIGHT 3 OR MORE VIEWS Schedule Routine, Read Routine (OP Routine) 11/21/2024 2:04 PM LOIN PULLER Rheumatoid arthritis with negative rheumatoid factor, involving unspecified site (HCC) XR HAND LEFT 3 OR MORE VIEWS Schedule Routine, Read Routine (OP Routine) 11/21/2024 2:04 PM LOIN PULLER Rheumatoid arthritis with negative rheumatoid factor, involving unspecified site (HCC) XR WRIST RIGHT 3 OR MORE VIEWS Schedule Routine, Read Routine (OP Routine) 11/21/2024 2:04 PM LOIN PULLER Rheumatoid arthritis with negative rheumatoid factor, involving unspecified site (HCC) XR WRIST LEFT 3 OR MORE VIEWS Schedule Routine, Read Routine (OP Routine) 11/21/2024 2:04 PM LOIN PULLER Rheumatoid arthritis with negative rheumatoid factor, involving unspecified site (HCC) EGFR Routine 11/15/2024 1:46 PM LOIN PULLER High risk medication use DIFFERENTIAL AUTO Routine 11/15/2024 1: 46 PM LOIN PULLER High risk medication use COMPREHENSIVE METABOLIC PANEL Routine 11/15/2024 1:46 PM LOIN PULLER High risk medication use CBC WITH AUTO DIFFERENTIAL Routine 11/15/2024 1:46 PM LOIN PULLER High risk medication use TB TEST, QUANTIFERON GOLD Routine 11/07/2024 3:55 PM LOIN PULLER High risk medication use DEXA AXIAL SKELETON BONE DENSITY 1 OR MORE SITES Schedule Routine, Read Routine (OP Routine) 03/08/2024 9:24 AM CDT Rheumatoid arthritis with negative rheumatoid factor, involving unspecified site (HCC) Pathological fracture in other disease, other site, initial encounter for fracture HEPATITIS PANEL, ACUTE Routine 05/24/2020 9:45 AM CDT Arthralgia, unspecified joint from Last 3 Months or Most Recently Relevant to Health Maintenance Results * XR Hand Right 3 or More Views (11/21/2024 2:04 PM LOIN PULLER) Anatomical Region Laterality Modality Upper Extremities, Hand Right Computed Radiography 11/21/2024 2:23 PM LOIN PULLER Addenda Addendum by Pipe Valdivia MD on 11/22/2024 12:50 PM LOIN PULLER ADDENDUM: Progressive polyarticular erosions involving the bilateral hands and wrists, most prominent in the carpus bilaterally. This is consistent with progressive inflammatory arthritis in this patient with known rheumatoid arthritis. Electronically signed by: Pipe Valdivia MD Impressions 11/21/2024 2:23 PM LOIN PULLER 1. Healing fracture of the left 4th metacarpal shaft with shortening and mild ulnar displacement. 2. Polyarticular erosions involving the bilateral hands and wrists, most prominent in the carpus bilaterally. This is consistent with inflammatory arthritis. Statistically, this is most likely due to rheumatoid arthritis. Electronically signed by: Pipe Valdivia MD Narrative 11/21/2024 2:23 PM LOIN PULLER EXAMINATION: XR WRIST LEFT 3 OR MORE VIEWS, XR WRIST RIGHT 3 OR MORE VIEWS, XR HAND LEFT 3 OR MORE VIEWS, XR HAND RIGHT 3 OR MORE VIEWS HISTORY: Bilateral hand and wrist pain, inflammatory arthritis FINDINGS: Comparison dated 07/16/2022. 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 This appears similar to the previous examination. There is an oblique healing fracture involving the midshaft of the left 4th metacarpal. Extensive callus formation is noted. There is ulnar displacement by approximately one cortical width. Shortening of the 4th metacarpal is noted. Mild 1st metacarpophalangeal osteoarthritis. There are erosions throughout the carpus, most prominent at the 3rd and 4th metacarpal bases, hamate, lunate, scaphoid, and distal radius. Mild joint space narrowing throughout the carpus. Moderate soft tissue swelling. 3 views of the right hand and 3 views of the right wrist demonstrate ulnar deviation of the long finger. Heterotopic ossification dorsal is likely due to old dorsal triquetral fracture. No acute fracture. Polyarticular soft tissue swelling of the right hand, most prominent at the proximal interphalangeal joints. Mild 1st metacarpophalangeal osteoarthritis. Erosions are noted about the 2nd through 5th metacarpophalangeal joints. Erosions throughout the carpus, most prominent in the scaphoid and capitate. 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 Heterotopic ossification adjacent to the ulnar styloid process. There are erosions of the ulnar styloid process. Mild to moderate soft tissue swelling. Procedure Note Pipe Valdivia MD - 11/21/2024 EXAMINATION: XR WRIST LEFT 3 OR MORE VIEWS, XR WRIST RIGHT 3 OR MORE VIEWS, XR HAND LEFT 3 OR MORE VIEWS, XR HAND RIGHT 3 OR MORE VIEWS HISTORY: Bilateral hand and wrist pain, inflammatory arthritis FINDINGS: Comparison dated 07/16/2022. 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 This appears similar to the previous examination. There is an oblique healing fracture involving the midshaft of the left 4th metacarpal. Extensive callus formation is noted. There is ulnar displacement by approximately one cortical width. Shortening of the 4th metacarpal is noted. Mild 1st metacarpophalangeal osteoarthritis. There are erosions throughout the carpus, most prominent at the 3rd and 4th metacarpal bases, hamate, lunate, scaphoid, and distal radius. Mild joint space narrowing throughout the carpus. Moderate soft tissue swelling. 3 views of the right hand and 3 views of the right wrist demonstrate ulnar deviation of the long finger. Heterotopic ossification dorsal is likely due to old dorsal triquetral fracture. No acute fracture. Polyarticular soft tissue swelling of the right hand, most prominent at the proximal interphalangeal joints. Mild 1st metacarpophalangeal osteoarthritis. Erosions are noted about the 2nd through 5th metacarpophalangeal joints. Erosions throughout the carpus, most prominent in the scaphoid and capitate. 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 Heterotopic ossification adjacent to the ulnar styloid process. There are erosions of the ulnar styloid process. Mild to moderate soft tissue swelling. IMPRESSION: 1. Healing fracture of the left 4th metacarpal shaft with shortening and mild ulnar displacement. 2. Polyarticular erosions involving the bilateral hands and wrists, most prominent in the carpus bilaterally. This is consistent with inflammatory arthritis. Statistically, this is most likely due to rheumatoid arthritis. Electronically signed by: Pipe Valdivia MD Marialuisa Franklin NP IMG XR PROCEDURES Edited R esult - Final * XR Hand Left 3 or More Views (11/21/2024 2:04 PM LOIN PULLER) Anatomical Region Laterality Modality Upper Extremities, Hand Left Computed Radiography 11/21/2024 2:23 PM LOIN PULLER Addenda Addendum by Pipe Valdivia MD on 11/22/2024 12:50 PM LOIN PULLER ADDENDUM: Progressive polyarticular erosions involving the bilateral hands and wrists, most prominent in the carpus bilaterally. This is consistent with progressive inflammatory arthritis in this patient with known rheumatoid arthritis. Electronically signed by: Pipe Valdivia MD Impressions 11/21/2024 2:23 PM LOIN PULLER 1. Healing fracture of the left 4th metacarpal shaft with shortening and mild ulnar displacement. 2. Polyarticular erosions involving the bilateral hands and wrists, most prominent in the carpus bilaterally. This is consistent with inflammatory arthritis. Statistically, this is most likely due to rheumatoid arthritis. Electronically signed by: Pipe Valdivia MD Narrative 11/21/2024 2:23 PM LOIN PULLER EXAMINATION: XR WRIST LEFT 3 OR MORE VIEWS, XR WRIST RIGHT 3 OR MORE VIEWS, XR HAND LEFT 3 OR MORE VIEWS, XR HAND RIGHT 3 OR MORE VIEWS HISTORY: Bilateral hand and wrist pain, inflammatory arthritis FINDINGS: Comparison dated 07/16/2022. 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 This appears similar to the previous examination. There is an oblique healing fracture involving the midshaft of the left 4th metacarpal. Extensive callus formation is noted. There is ulnar displacement by approximately one cortical width. Shortening of the 4th metacarpal is noted. Mild 1st metacarpophalangeal osteoarthritis. There are erosions throughout the carpus, most prominent at the 3rd and 4th metacarpal bases, hamate, lunate, scaphoid, and distal radius. Mild joint space narrowing throughout the carpus. Moderate soft tissue swelling. 3 views of the right hand and 3 views of the right wrist demonstrate ulnar deviation of the long finger. Heterotopic ossification dorsal is likely due to old dorsal triquetral fracture. No acute fracture. Polyarticular soft tissue swelling of the right hand, most prominent at the proximal interphalangeal joints. Mild 1st metacarpophalangeal osteoarthritis. Erosions are noted about the 2nd through 5th metacarpophalangeal joints. Erosions throughout the carpus, most prominent in the scaphoid and capitate. 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 Heterotopic ossification adjacent to the ulnar styloid process. There are erosions of the ulnar styloid process. Mild to moderate soft tissue swelling. Procedure Note Pipe Valdivia MD - 11/21/2024 EXAMINATION: XR WRIST LEFT 3 OR MORE VIEWS, XR WRIST RIGHT 3 OR MORE VIEWS, XR HAND LEFT 3 OR MORE VIEWS, XR HAND RIGHT 3 OR MORE VIEWS HISTORY: Bilateral hand and wrist pain, inflammatory arthritis FINDINGS: Comparison dated 07/16/2022. 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 This appears similar to the previous examination. There is an oblique healing fracture involving the midshaft of the left 4th metacarpal. Extensive callus formation is noted. There is ulnar displacement by approximately one cortical width. Shortening of the 4th metacarpal is noted. Mild 1st metacarpophalangeal osteoarthritis. There are erosions throughout the carpus, most prominent at the 3rd and 4th metacarpal bases, hamate, lunate, scaphoid, and distal radius. Mild joint space narrowing throughout the carpus. Moderate soft tissue swelling. 3 views of the right hand and 3 views of the right wrist demonstrate ulnar deviation of the long finger. Heterotopic ossification dorsal is likely due to old dorsal triquetral fracture. No acute fracture. Polyarticular soft tissue swelling of the right hand, most prominent at the proximal interphalangeal joints. Mild 1st metacarpophalangeal osteoarthritis. Erosions are noted about the 2nd through 5th metacarpophalangeal joints. Erosions throughout the carpus, most prominent in the scaphoid and capitate. 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 Heterotopic ossification adjacent to the ulnar styloid process. There are erosions of the ulnar styloid process. Mild to moderate soft tissue swelling. IMPRESSION: 1. Healing fracture of the left 4th metacarpal shaft with shortening and mild ulnar displacement. 2. Polyarticular erosions involving the bilateral hands and wrists, most prominent in the carpus bilaterally. This is consistent with inflammatory arthritis. Statistically, this is most likely due to rheumatoid arthritis. Electronically signed by: Pipe Valdivia MD Marialuisa Franklin NP IMG XR PROCEDURES Edited R esult - Final * XR Wrist Right 3 or More Views (11/21/2024 2:04 PM LOIN PULLER) Anatomical Region Laterality Modality Upper Extremities, Wrist Right Compute d Radiography 11/21/2024 2:23 PM LOIN PULLER Addenda Addendum by Pipe Valdivia MD on 11/22/2024 12:50 PM LOIN PULLER ADDENDUM: Progressive polyarticular erosions involving the bilateral hands and wrists, most prominent in the carpus bilaterally. This is consistent with progressive inflammatory arthritis in this patient with known rheumatoid arthritis. Electronically signed by: Pipe Valdivia MD Impressions 11/21/2024 2:23 PM LOIN PULLER 1. Healing fracture of the left 4th metacarpal shaft with shortening and mild ulnar displacement. 2. Polyarticular erosions involving the bilateral hands and wrists, most prominent in the carpus bilaterally. This is consistent with inflammatory arthritis. Statistically, this is most likely due to rheumatoid arthritis. Electronically signed by: Pipe Valdivia MD Narrative 11/21/2024 2:23 PM LOIN PULLER EXAMINATION: XR WRIST LEFT 3 OR MORE VIEWS, XR WRIST RIGHT 3 OR MORE VIEWS, XR HAND LEFT 3 OR MORE VIEWS, XR HAND RIGHT 3 OR MORE VIEWS HISTORY: Bilateral hand and wrist pain, inflammatory arthritis FINDINGS: Comparison dated 07/16/2022. 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 This appears similar to the previous examination. There is an oblique healing fracture involving the midshaft of the left 4th metacarpal. Extensive callus formation is noted. There is ulnar displacement by approximately one cortical width. Shortening of the 4th metacarpal is noted. Mild 1st metacarpophalangeal osteoarthritis. There are erosions throughout the carpus, most prominent at the 3rd and 4th metacarpal bases, hamate, lunate, scaphoid, and distal radius. Mild joint space narrowing throughout the carpus. Moderate soft tissue swelling. 3 views of the right hand and 3 views of the right wrist demonstrate ulnar deviation of the long finger. Heterotopic ossification dorsal is likely due to old dorsal triquetral fracture. No acute fracture. Polyarticular soft tissue swelling of the right hand, most prominent at the proximal interphalangeal joints. Mild 1st metacarpophalangeal osteoarthritis. Erosions are noted about the 2nd through 5th metacarpophalangeal joints. Erosions throughout the carpus, most prominent in the scaphoid and capitate. 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 Heterotopic ossification adjacent to the ulnar styloid process. There are erosions of the ulnar styloid process. Mild to moderate soft tissue swelling. Procedure Note Pipe Valdivia MD - 11/21/2024 EXAMINATION: XR WRIST LEFT 3 OR MORE VIEWS, XR WRIST RIGHT 3 OR MORE VIEWS, XR HAND LEFT 3 OR MORE VIEWS, XR HAND RIGHT 3 OR MORE VIEWS HISTORY: Bilateral hand and wrist pain, inflammatory arthritis FINDINGS: Comparison dated 07/16/2022. 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 This appears similar to the previous examination. There is an oblique healing fracture involving the midshaft of the left 4th metacarpal. Extensive callus formation is noted. There is ulnar displacement by approximately one cortical width. Shortening of the 4th metacarpal is noted. Mild 1st metacarpophalangeal osteoarthritis. There are erosions throughout the carpus, most prominent at the 3rd and 4th metacarpal bases, hamate, lunate, scaphoid, and distal radius. Mild joint space narrowing throughout the carpus. Moderate soft tissue swelling. 3 views of the right hand and 3 views of the right wrist demonstrate ulnar deviation of the long finger. Heterotopic ossification dorsal is likely due to old dorsal triquetral fracture. No acute fracture. Polyarticular soft tissue swelling of the right hand, most prominent at the proximal interphalangeal joints. Mild 1st metacarpophalangeal osteoarthritis. Erosions are noted about the 2nd through 5th metacarpophalangeal joints. Erosions throughout the carpus, most prominent in the scaphoid and capitate. 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 Heterotopic ossification adjacent to the ulnar styloid process. There are erosions of the ulnar styloid process. Mild to moderate soft tissue swelling. IMPRESSION: 1. Healing fracture of the left 4th metacarpal shaft with shortening and mild ulnar displacement. 2. Polyarticular erosions involving the bilateral hands and wrists, most prominent in the carpus bilaterally. This is consistent with inflammatory arthritis. Statistically, this is most likely due to rheumatoid arthritis. Electronically signed by: Pipe Valdivia MD Marialuisa Franklin NP IM XR PROCEDURES Edited R esult - Final * XR Wrist Left 3 or More Views (11/21/2024 2:04 PM LOIN PULLER) Anatomical Region Laterality Modality Upper Extremities, Wrist Left Compute d Radiography 11/21/2024 2:23 PM LOIN PULLER Addenda Addendum by Pipe Valdivia MD on 11/22/2024 12:50 PM LOIN PULLER ADDENDUM: Progressive polyarticular erosions involving the bilateral hands and wrists, most prominent in the carpus bilaterally. This is consistent with progressive inflammatory arthritis in this patient with known rheumatoid arthritis. Electronically signed by: Pipe Valdivia MD Impressions 11/21/2024 2:23 PM LOIN PULLER 1. Healing fracture of the left 4th metacarpal shaft with shortening and mild ulnar displacement. 2. Polyarticular erosions involving the bilateral hands and wrists, most prominent in the carpus bilaterally. This is consistent with inflammatory arthritis. Statistically, this is most likely due to rheumatoid arthritis. Electronically signed by: Pipe Valdivia MD Narrative 11/21/2024 2:23 PM LOIN PULLER EXAMINATION: XR WRIST LEFT 3 OR MORE VIEWS, XR WRIST RIGHT 3 OR MORE VIEWS, XR HAND LEFT 3 OR MORE VIEWS, XR HAND RIGHT 3 OR MORE VIEWS HISTORY: Bilateral hand and wrist pain, inflammatory arthritis FINDINGS: Comparison dated 07/16/2022. 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 This appears similar to the previous examination. There is an oblique healing fracture involving the midshaft of the left 4th metacarpal. Extensive callus formation is noted. There is ulnar displacement by approximately one cortical width. Shortening of the 4th metacarpal is noted. Mild 1st metacarpophalangeal osteoarthritis. There are erosions throughout the carpus, most prominent at the 3rd and 4th metacarpal bases, hamate, lunate, scaphoid, and distal radius. Mild joint space narrowing throughout the carpus. Moderate soft tissue swelling. 3 views of the right hand and 3 views of the right wrist demonstrate ulnar deviation of the long finger. Heterotopic ossification dorsal is likely due to old dorsal triquetral fracture. No acute fracture. Polyarticular soft tissue swelling of the right hand, most prominent at the proximal interphalangeal joints. Mild 1st metacarpophalangeal osteoarthritis. Erosions are noted about the 2nd through 5th metacarpophalangeal joints. Erosions throughout the carpus, most prominent in the scaphoid and capitate. 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 Heterotopic ossification adjacent to the ulnar styloid process. There are erosions of the ulnar styloid process. Mild to moderate soft tissue swelling. Procedure Note Pipe Valdivia MD - 11/21/2024 EXAMINATION: XR WRIST LEFT 3 OR MORE VIEWS, XR WRIST RIGHT 3 OR MORE VIEWS, XR HAND LEFT 3 OR MORE VIEWS, XR HAND RIGHT 3 OR MORE VIEWS HISTORY: Bilateral hand and wrist pain, inflammatory arthritis FINDINGS: Comparison dated 07/16/2022. 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 This appears similar to the previous examination. There is an oblique healing fracture involving the midshaft of the left 4th metacarpal. Extensive callus formation is noted. There is ulnar displacement by approximately one cortical width. Shortening of the 4th metacarpal is noted. Mild 1st metacarpophalangeal osteoarthritis. There are erosions throughout the carpus, most prominent at the 3rd and 4th metacarpal bases, hamate, lunate, scaphoid, and distal radius. Mild joint space narrowing throughout the carpus. Moderate soft tissue swelling. 3 views of the right hand and 3 views of the right wrist demonstrate ulnar deviation of the long finger. Heterotopic ossification dorsal is likely due to old dorsal triquetral fracture. No acute fracture. Polyarticular soft tissue swelling of the right hand, most prominent at the proximal interphalangeal joints. Mild 1st metacarpophalangeal osteoarthritis. Erosions are noted about the 2nd through 5th metacarpophalangeal joints. Erosions throughout the carpus, most prominent in the scaphoid and capitate. 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 Heterotopic ossification adjacent to the ulnar styloid process. There are erosions of the ulnar styloid process. Mild to moderate soft tissue swelling. IMPRESSION: 1. Healing fracture of the left 4th metacarpal shaft with shortening and mild ulnar displacement. 2. Polyarticular erosions involving the bilateral hands and wrists, most prominent in the carpus bilaterally. This is consistent with inflammatory arthritis. Statistically, this is most likely due to rheumatoid arthritis. Electronically signed by: Pipe Valdivia MD Marialuisa Franklin NP IMG XR PROCEDURES Edited R esult - Final * eGFR (11/15/2024 1:46 PM LOIN PULLER) eGFR 67 >=60 mL/min/1. 73 m2 Comment: Interpretive Data Reference Interval Normal >/= 90 mL/min/1.73m2 Mildly decreased* 60 - 89 mL/min/1.73m2 Mildly to moderately decreased 45 - 59 mL/min/1.73m2 Moderately to severely decreased 30 - 44 mL/min/1.73m2 Severely decreased 15 - 29 mL/min/1.73m2 Kidney Failure < 15 mL/min/1.73m2 *Relative to young adult level Estimated glomerular filtration rate is determined by the 2020 CKD-EPI equation recommended by the National Kid[employer] (A Unifying Approach to GFR Estimation: Recommendations of the NKF-ASK Task Force on Reassessing the Inclusion of Race in Diagnosing Kidney Disease, JASN 202). The CKD-EPI equation should not be used for patients with unstable renal function and has not been validated in children and those over 70. Current interpretive data was last reviewed 2021. Blood 11/15/2024 1:46 PM LOIN PULLER 11/15/2024 2:48 PM LOIN PULLER us Marialuisa Franklin NP LAB BLOOD ORDERABLES Final Result [facility] Department [place] [address] * Differential, auto (11/15/2024 1:46 PM LOIN PULLER) Neutrophil abs 3.2 1.5 - 6.5 K/cumm Imm gran abs 0.0 0.0 - 0.1 K/cumm [facility] Lymphocyte abs 1.1 0.8 - 3.3 K/cumm [facility] Monocyte abs 0.6 0.2 - 0.8 K/cumm [facility] Eosinophil abs 0.1 0.0 - 0.5 K/cumm [facility] Basophil abs 0.1 0.0 - 0.1 K/cumm [facility] Neutrophil pct 63.6 % [facility] Comment: Interpretive Data Percent cell count reference ranges are not reported, since discordance with absolute values may lead to misinterpretation of CBC data. Current Interpretive Data was last revised on 2018. Imm gran pct 0.4 % [facility] Comment: Interpretive Data Percent cell count reference ranges are not reported, since discordance with absolute values may lead to misinterpretation of CBC data. Current Interpretive Data was last revised on 2018. Lymphocyte pct 21.4 % [facility] Comment: Interpretive Data Percent cell count reference ranges are not reported, since discordance with absolute values may lead to misinterpretation of CBC data. Current Interpretive Data was last revised on 2018. Monocyte pct 11.4 % [facility] Comment: Interpretive Data Percent cell count reference ranges are not reported, since discordance with absolute values may lead to misinterpretation of CBC data. Current Interpretive Data was last revised on 2018. Eosinophil pct 2.0 % [facility] Comment: Interpretive Data Percent cell count reference ranges are not reported, since discordance with absolute values may lead to misinterpretation of CBC data. Current Interpretive Data was last revised on 2018. Basophil pct 1.2 % [facility] Comment: Interpretive Data Percent cell count reference ranges are not reported, since discordance with absolute values may lead to misinterpretation of CBC data. Current Interpretive Data was last revised on 2018. Blood 11/15/2024 1:46 PM LOIN PULLER 11/15/2024 1:59 PM LOIN PULLER us Marialuisa Franklin [employer] LAB BLOOD ORDERABLES Final Result [facility] Department [place] [address] * CBC with auto differential (11/15/2024 1:46 PM LOIN PULLER) WBC 5.0 3.8 - 9.9 K/cumm Hgb 13.7 11.9 - 15.5 g/dL [facility] Hct 41.1 35.6 - 45.5 % [facility] Plt 256 150 - 400 K/cumm [facility] MPV 11.0 9.1 - 12.3 fL [facility] RBC 4.32 3.90 - 5.20 M/cumm [facility] MCV 95.1 81.3 - 96.4 fL [facility] MCH 31.7 27.1 - 33.3 pg [facility] MCHC 33.3 32.3 - 35.7 g/dL [facility] RDW CV 13.3 11.1 - 14.9 % [facility] RDW SD 47.1 35.7 - 48.1 fL [facility] NRBC abs 0.00 0.00 - 0.01 K/cumm [facility] Blood 11/15/2024 1:46 PM LOIN PULLER 11/15/2024 1:59 PM LOIN PULLER us Marialuisa Franklin [employer] LAB BLOOD ORDERABLES Final Result [facility] Department [place] [address] * Comprehensive metabolic panel (11/15/2024 1:46 PM LOIN PULLER) Sodium 139 135 - 145 mmol/L Potassium, pl 4.5 3.3 - 4.9 mmol/L [facility] Chloride 103 97 - 110 mmol/L [facility] CO2 26 22 - 32 mmol/L [facility] Anion gap 10 2 - 15 mmol/L [facility] BUN 15 6 - 25 mg/dL [facility] Creatinine 0.92 0.60 - 1.10 mg/dL [facility] Glucose 105 70 - 199 mg/dL [facility] Comment: Interpretive Data Fasting glucose >/= 126 mg/dl is diagnostic for diabetes. Fasting is defined as no caloric intake for at least 8 hours. Fasting glucose between 100 mg/dl to 125 mg/dl is diagnostic of prediabetes. In a patient with classic symptoms of hyperglycemia or hyperglycemic crisis, a random glucose >/= 200 mg/dl is diagnostic for diabetes. In the absence of unequivocal hyperglycemia, results should be confirmed by repeat testing. The classification and Diagnosis of Diabetes Diabetes Care 202; 46: S19-S40. Current interpretive data was last revised 2022. Calcium 9.5 8.5 - 10.3 mg/dL [facility] Bilirubin, total 0.3 0.1 - 1.2 mg/dL [facility] Protein, pl 7.1 6.5 - 8.5 g/dL [facility] Albumin 4.3 3.5 - 5.0 g/dL [facility] Alk phos 121 40 - 130 Units/L [facility] ALT 19 7 - 45 Units/L [facility] AST 22 10 - 45 Units/L [facility] Blood 11/15/2024 1:46 PM LOIN PULLER 11/15/2024 2:48 PM LOIN PULLER us Marialuisa Franklin [employer]ADER LAB BLOOD ORDERABLES Final Result [facility] Department [place] [address] * TB test, quantiferon gold (11/07/2024 3:55 PM LOIN PULLER) [facility] QuantiFERON(R)-T B Gold Plus, 1 Tube NEGATIVE NEGATIVE [facility] Comment: Negative test result. M. tuberculosis complex infection unlikely. NIL 0.03 IU/mL [facility] MITOGEN-NIL 8.43 IU/mL [facility] TB1-NIL 0.02 IU/mL [facility] TB2-NIL 0.03 IU/mL [facility] Comment: The Nil tube value reflects the background interferon gamma immune response of the patient's blood sample. This value has been subtracted from the patient's displayed TB and Mitogen results. Lower than expected results with the Mitogen tube prevent false-negative Quantiferon readings by detecting a patient with a potential immune suppressive condition and/or suboptimal pre-analytical specimen handling. The TB1 Antigen tube is coated with the M. tuberculosis-specific antigens designed to elicit responses from TB antigen primed CD4+ helper T-lymphocytes. The TB2 Antigen tube is coated with the M. tuberculosis-specific antigens designed to elicit responses from TB antigen primed CD4+ helper and CD8+ cytotoxic T-lymphocytes. For additional information, please refer to https://education.Mofibo.Embrace+/faq/YBM277 (This link is being provided for informational/ educational purposes only.) Blood 11/07/2024 3:55 PM LOIN PULLER 11/07/2024 3:56 PM LOIN PULLER us Marialuisa Franklin P[employer]ER GRADER LAB BLOOD ORDERABLES Final Result [email or web address] [address] [phone] * Dexa Axial Skeleton Bone Density 1 or 2 Site (03/08/2024 9:24 AM CDT) Anatomical Region Laterality Modality Body N/A Radiographic Erna ging Narrative 03/08/2024 9:48 PM CDT Patient Name: Sheri Shin Date of : 1955 Date of scan: 03/08/2024 Bone mineral density was performed on a [employer] Discovery Densitometer. Based on machine cross-calibration and precision studies the least significant changes of this densitometer is 0.024 g/cm2 at the spine, 0.020 g/cm2 at the total proximal femur, and 0.014g/cm2 at the forearm. HISTORY: This is a 68 y.o. postmenopausal female with a history of osteoporosis, rheumatoid arthritis, and vitamin D deficiency. She reports that she has quit smoking. She has been exposed to tobacco smoke. She has never used smokeless tobacco. Currently on treatment with calcium and vitamin D, previously treated with diuretics, and current complaint of back pain and neck pain. INDICATIONS: Menopause status, vitamin D deficiency, and history of osteoporosis. FINDINGS: BONE MINERAL DENSITY OF THE LUMBAR SPINE Bone Mineral Density (BMD) of the lumbar spine was measured from L1-L4 and the average density was calculated to be 0.710 gm/cm2. This corresponds to a T-score (standard deviations from the mean of young adults) of -3.1. When compared to the previous study of 08/08/2021 there has been no significant changes in bone density. BONE MINERAL DENSITY OF THE PROXIMAL FEMUR Bone Mineral Density (BMD) of the left hip total was found to be 0.629 gm/cm2. This corresponds to a T-score standard deviations from the mean of young adults of -2.6. Femoral neck is 0.601 gm/cm2 with a T-score (standard deviations from the mean of young adults) of -2.2. When compared to the previous study of 08/08/2021 there has been a -0.045 gm/cm (-6.6%) decrease in bone density that is considered significant. SUMMARY: Bone mineral density shows evidence of osteoporosis and marked increase risk of fracture. There has been a significant decrease in bone density since previous measurement. ADDITIONAL COMMENTS: Postmenopausal Women and Men Over 50: Diagnostic criteria: Osteoporosis: BMD at or below -2.5 T-score; Osteopenia (low bone mass): BMD between -1.0 and -2.5 T-score. If the patient has a history of a fragility fracture, a fracture that occurred with trauma equivalent to a fall from a standing position or less, then the diagnosis is osteoporosis regardless of bone density. The history and data sections of the bone mineral density scan were prepared by Parul Jimenez) DAVEY who is accredited by the International Society of Clinical Densitometry. The overall patient assessment and scan interpretation were performed by Mar Orozco MD who is certified by the International Society of Clinical Densitometry. [id number] Marialuisa Franklin NP IMG DXA PROCEDURES Final R esult * Hepatitis panel, acute (05/24/2020 9:45 AM CDT) Hep A IgM Nonreactive Nonreactive [facility] Comment: Interpretive Data: If Hep A IgM Ab is reported as Equivocal, a new sample should be drawn in two weeks for testing. Current interpretive data was last revised on 19. Hep B core IgM Nonreactive Nonreactive [facility] Comment: Interpretive Data If HepB Core IgM Ab is reported as Equivocal, a new sample should be drawn in two weeks for testing. Current interpretive data was last revised on 19. Hep C Ab Nonreactive Nonreactive [facility] Comment:Antibodies to HCV no t detected. Does NOT exclude the possibility of recent exposure to HCV. HepBsAg Nonreactive Nonreactive [facility] Blood specimen (specimen) 05/24/2020 9:45 AM CDT 05/24/2020 12:08 PM CDT Marialuisa Franklin NP LAB MICROBIOLOGY - GENERAL ORDERABLES Edited Result - Final [facility] Department [place] [address] from Last 3 Months or Most Recently Relevant to Health Maintenance Insurance [employer] [facility] [employer] Care Teams Subsea Engineer Relationship Specialty Start Date End Date Kerry Coffman DO [address] [place] [address] PCP - General Internal Medicine 04/19/24
--- OUTSIDE RECORDS SUMMARY | 2024-12-13 20:56 | XMS_ITS | Clinical Summary ---
Author Organization [facility] Address [address] [place] [phone] Care Team Providers Care Community Services Coordinator Name Role Phone Kerry Coffman Primary Care Provider Allergies Active Allergy Reactions [...] 1 tablet (2 mg total) by mouth cell efficiency supervisor before breakfast 4 Active azelastine (ASTELIN) 137 [...] arthritis with negative rheumatoid fa ctor 05/15/2023 Encounters Date Type Department Care Team Description 11/21/2024 1:50 PM LABOR[facility] [employer] - 11/21/2024 11:59 PM [facility] [employer] Hospital Encounter [facility] Radiology at [facility] [address] [place] [id number] Discharge Disposition: Discharge to home or self care 11/21/2024 1:20 PM [facility] [employer] Office Visit [facility] [address] [place] [address] 2nd Floor [address] [place] [phone] Marialuisa Franklin NP Rheumatoid arthritis with negative rheumatoid factor, involving unspecified site (HCC) (Primary Dx); High risk medication use 11/15/2024 10:40 AM [employer] - 11/15/2024 11:59 PM [facility] [employer] Hospital Encounter [facility] of [address] [address] High risk medication use Discharge Disposition: Discharge to home or self care 11/15/2024 10:30 AM [facility] [employer] [employer] Infusion [facility] [address] [facility] 2nd Floor [address] [place] [phone] Rheumatoid arthritis with negative rheumatoid factor, involving unspecified site (HCC) (Primary Dx) 10/18/2024 10:30 AM [facility] [employer] [employer] Infusion [facility] [address] [facility] 2nd Floor [address] [place] [phone] Rheumatoid arthritis with negative rheumatoid factor, involving unspecified site (HCC) (Primary Dx) from Last 3 Months Surgical History Surgery Date Site/Laterality Comments OVARIAN CYSTECTOMY 10/12/2011 - 10/11/2012 ORTHOPEDIC SURGERY 10/12/1994 - 10/11/1995 right foot ORTHOPEDIC SURGERY 10/12/1960 - 10/11/1961 left middle finger COLONOSCOPY 09/11/2022 - 10/11/2022 Medical History Medical History Date Comments Rheumatic fever Migraines Diabetes mellitus (HCC) Alcoholism (CMS/HCC) (HCC) Bipolar 1 disorder (HCC) Hereditary essential tremor Restless legs Raynaud phenomenon IBS (irritable bowel syndrome) Arthritis Allergies Anxiety disorder Hyperlipidemia Diverticulitis Pneumonia Diverticulitis Osteoporosis Family History Medical History Relation Name Comments Heart disease Brother Alcohol abuse Father Diabetes Father Hypertension Father Depression Mother Heart disease Mother Relation Name Status Comments Brother Alive Father Mother Social History Tobacco Use Types Packs/Day Years Used Date Smoking Tobacco: Former Passive Smoke Exposure: Past Smokeless Tobacco: Never Tobacco Cessation:Counseling Given: Not Answered Comments Unknown Sex and Gender Information Value Date Recorded Sex Assigned at Not on file Legal Sex Female 10:45 PM [employer] Gender Identity Not on file Sexual Orientation Not on file Obstetrics History Last Filed Vital Signs Vital Sign Reading Time Taken Comments Blood Pressure 93/58 11/21/2024 1:01 PM [employer] Pulse 63 11/21/2024 1:01 PM [employer] Temperature 36.6 C (97.8 F) 11/21/2024 1:01 PM [employer] Respiratory Rate - - Oxygen Saturation 99% 11/21/2024 1:01 PM [employer] Inhaled Oxygen Concentration - - Weight 68 kg (150 lb) 11/21/2024 1:01 PM [employer] Height 167.6 cm (5' 5.98 ) 11/21/2024 1:01 PM CS T Body Mass Index 24.22 11/21/2024 1:01 PM [employer] Plan of Treatment Health Maintenance Due Date Last Done Comments Breast Cancer Screening-Mammogram 1955 Colon Cancer Screening-Colonoscopy 1955 Depression Screening 1955 Fall Risk Assessment 1955 Well Visit 65+ 2020 Covid-19 Vaccine (2023-2 5 season) 2024 01/18/2022, 08/06/2021, 12/18/2020 Influenza Vaccine (#1) 2024 , 07/03/2022, 10/08/2021, Additional history exists Osteoporosis Screening-Bone Density Scan 03/08/2026 03/08/2024, 08/08/2021 DTaP/Tdap/Td Vaccine (3 - Td or Tdap) 03/08/2033 03/08/2023, 06/17/2014 Hepatitis B Screening Completed 09/25/2016, 016 Hepatitis C Screening Completed 05/24/2020 Pneumococcal vaccine 65+ Completed 021, 07/02/2020, 2018, Additional history exists Zoster Vaccine Completed 10/15/2022, 12/11, 05/16/2021 Procedures Procedure Name Priority Date/Time Associated Diagnosis Comments XR HAND RIGHT 3 OR MORE VIEWS Schedule Routine, Read Routine (OP Routine) 11/21/2024 2:04 PM [employer] Rheumatoid arthritis with negative rheumatoid factor, involving unspecified site (HCC) XR HAND LEFT 3 OR MORE VIEWS Schedule Routine, Read Routine (OP Routine) 11/21/2024 2:04 PM [employer] Rheumatoid arthritis with negative rheumatoid factor, involving unspecified site (HCC) XR WRIST RIGHT 3 OR MORE VIEWS Schedule Routine, Read Routine (OP Routine) 11/21/2024 2:04 PM [employer] Rheumatoid arthritis with negative rheumatoid factor, involving unspecified site (HCC) XR WRIST LEFT 3 OR MORE VIEWS Schedule Routine, Read Routine (OP Routine) 11/21/2024 2:04 PM [employer] Rheumatoid arthritis with negative rheumatoid factor, involving unspecified site (HCC) EGFR Routine 11/15/2024 1:46 PM [employer] High risk medication use DIFFERENTIAL AUTO Routine 11/15/2024 1:4 6 PM [employer] High risk medication use COMPREHENSIVE METABOLIC PANEL Routine 11/15/2024 1:46 PM [employer] High risk medication use CBC WITH AUTO DIFFERENTIAL Routine 11/15/2024 1:46 PM LAB[employer] High risk medication use TB TEST, QUANTIFERON GOLD Routine 11/07/2024 3:55 PM [employer] High risk medication use DEXA AXIAL SKELETON [...] 3 or More Views (11/21/2024 2:04 PM LAB[employer]) Anatomical Region Laterality Modality Upper Extremities, Hand Right Computed Radiography 11/21/2024 2:23 PM [employer] Addenda Addendum by Pipe Valdivia MD on 11/22/2024 12:50 PM [employer] ADDENDUM: Progressive polyarticular erosions involving the bilateral hands and wrists, most prominent in the carpus bilaterally. This is consistent with progressive inflammatory arthritis in this patient with known rheumatoid arthritis. Electronically signed by: Pipe Valdivia MD Impressions 11/21/2024 2:23 PM [employer] 1. Healing fracture of the left 4th metacarpal shaft with shortening and mild ulnar displacement. 2. Polyarticular erosions involving the bilateral hands and wrists, most prominent in the carpus bilaterally. This is consistent with inflammatory arthritis. Statistically, this is most likely due to rheumatoid arthritis. Electronically signed by: Pipe Valdivia MD Narrative 11/21/2024 2:23 PM [employer] EXAMINATION: XR WRIST LEFT 3 OR MORE [...] arthritis. Electronically signed by: Pipe Valdivia MD us Marialuisa Franklin SENIOR RESEARCH MANAGER IMG XR PROCEDURES Edited R esult - Final * XR Hand Left 3 or More Views (11/21/2024 2:04 PM LABOR[employer]) Anatomical Region Laterality Modality Upper Extremities, Hand Left Computed Radiography 11/21/2024 2:23 PM [employer] Addenda Addendum by Pipe Valdivia MD on 11/22/2024 12:50 PM [employer] ADDENDUM: Progressive polyarticular erosions involving the bilateral hands and wrists, most prominent in the carpus bilaterally. This is consistent with progressive inflammatory arthritis in this patient with known rheumatoid arthritis. Electronically signed by: Pipe Valdivia MD Impressions 11/21/2024 2:23 PM [employer] 1. Healing fracture of the left 4th metacarpal shaft with shortening and mild ulnar displacement. 2. Polyarticular erosions involving the bilateral hands and wrists, most prominent in the carpus bilaterally. This is consistent with inflammatory arthritis. Statistically, this is most likely due to rheumatoid arthritis. Electronically signed by: Pipe Valdivia MD Narrative 11/21/2024 2:23 PM LAB[employer] EXAMINATION: XR WRIST LEFT 3 OR MORE [...] 3 or More Views (11/21/2024 2:04 PM LABORER [employer]) Anatomical Region Laterality Modality Upper Extremities, Wrist Right Compute d Radiography 11/21/2024 2:23 PM [employer] Addenda Addendum by Pipe Valdivia MD on 11/22/2024 12:50 PM LAB[employer] ADDENDUM: Progressive polyarticular erosions involving the bilateral hands and wrists, most prominent in the carpus bilaterally. This is consistent with progressive inflammatory arthritis in this patient with known rheumatoid arthritis. Electronically signed by: Pipe Valdivia MD Impressions 11/21/2024 2:23 PM [employer] 1. Healing fracture of the left 4th metacarpal shaft with shortening and mild ulnar displacement. 2. Polyarticular erosions involving the bilateral hands and wrists, most prominent in the carpus bilaterally. This is consistent with inflammatory arthritis. Statistically, this is most likely due to rheumatoid arthritis. Electronically signed by: Pipe Valdivia MD Narrative 11/21/2024 2:23 PM [employer] EXAMINATION: XR WRIST LEFT 3 OR MORE [...] 3 or More Views (11/21/2024 2:04 PM LABORER [employer]) Anatomical Region Laterality Modality Upper Extremities, Wrist Left Compute d Radiography 11/21/2024 2:23 PM LABORER [employer] Addenda Addendum by Pipe Valdivia MD on 11/22/2024 12:50 PM LABOR[employer] ADDENDUM: Progressive polyarticular erosions involving the bilateral hands and wrists, most prominent in the carpus bilaterally. This is consistent with progressive inflammatory arthritis in this patient with known rheumatoid arthritis. Electronically signed by: Pipe Valdivia MD Impressions 11/21/2024 2:23 PM [employer] 1. Healing fracture of the left 4th metacarpal shaft with shortening and mild ulnar displacement. 2. Polyarticular erosions involving the bilateral hands and wrists, most prominent in the carpus bilaterally. This is consistent with inflammatory arthritis. Statistically, this is most likely due to rheumatoid arthritis. Electronically signed by: Pipe Valdivia MD Narrative 11/21/2024 2:23 PM LAB[employer] EXAMINATION: XR WRIST LEFT 3 OR MORE [...] - Final * eGFR (11/15/2024 1:46 PM LABORER [employer]) eGFR 67 >=60 mL/min/1. 73 m2 Comment: [...] last reviewed 2021. Blood 11/15/2024 1:46 PM [employer] 11/15/2024 2:48 PM [employer] us Marialuisa Franklin SENIOR RESEARCH MANAGER LAB BLOOD ORDERABLES Final Result [facility] [place] [address] * Differential, auto (11/15/2024 1:46 PM LABORER [employer]) Neutrophil abs 3.2 1.5 - 6.5 K/cumm Imm gran abs 0.0 0.0 - 0.1 K/cumm [facility] Lymphocyte abs 1.1 0.8 - 3.3 K/cumm [facility] Monocyte abs 0.6 0.2 - 0.8 K/cumm [facility] Eosinophil abs 0.1 0.0 - 0.5 K/cumm [facility] Basophil abs 0.1 0.0 - 0.1 K/cumm [facility] Neutrophil pct 63.6 % [facility] Comment: Interpretive Data Percent cell count reference ranges are not reported, since discordance with absolute values may lead to misinterpretation of CBC data. Current Interpretive Data was last revised on 2018. Imm gran pct 0.4 % [facility] Comment: Interpretive Data Percent cell count reference ranges are not reported, since discordance with absolute values may lead to misinterpretation of CBC data. Current Interpretive Data was last revised on 2018. Lymphocyte pct 21.4 % [facility] Comment: Interpretive Data Percent cell count reference ranges are not reported, since discordance with absolute values may lead to misinterpretation of CBC data. Current Interpretive Data was last revised on 2018. Monocyte pct 11.4 % [facility] Comment: Interpretive Data Percent cell count reference ranges are not reported, since discordance with absolute values may lead to misinterpretation of CBC data. Current Interpretive Data was last revised on 2018. Eosinophil pct 2.0 % [facility] Comment: Interpretive Data Percent cell count reference ranges are not reported, since discordance with absolute values may lead to misinterpretation of CBC data. Current Interpretive Data was last revised on 2018. Basophil pct 1.2 % [facility] Comment: Interpretive Data Percent cell count reference ranges are not reported, since discordance with absolute values may lead to misinterpretation of CBC data. Current Interpretive Data was last revised on 2018. Blood 11/15/2024 1:46 PM [employer] 11/15/2024 1:59 PM LAB[employer] us Marialuisa Franklin SENIOR RESEARCH MANAGER LAB BLOOD ORDERABLES Final Result [facility] [place] [address] * CBC with auto differential (11/15/2024 1:46 PM LABORER [employer]) WBC 5.0 3.8 - 9.9 K/cumm Hgb 13.7 11.9 - 15.5 g/dL [facility] Hct 41.1 35.6 - 45.5 % [facility] Plt 256 150 - 400 K/cumm [facility] MPV 11.0 9.1 - 12.3 fL [facility] RBC 4.32 3.90 - 5.20 M/cumm [facility] MCV 95.1 81.3 - 96.4 fL [facility] MCH 31.7 27.1 - 33.3 pg [facility] MCHC 33.3 32.3 - 35.7 g/dL [facility] RDW CV 13.3 11.1 - 14.9 % [facility] RDW SD 47.1 35.7 - 48.1 fL [facility] NRBC abs 0.00 0.00 - 0.01 K/cumm [facility] Blood 11/15/2024 1:46 PM [employer] 11/15/2024 1:59 PM LAB[employer] us Marialuisa Franklin SENIOR RESEARCH MANAGER LAB BLOOD ORDERABLES Final Result [facility] Department [place] [address] * Comprehensive metabolic panel (11/15/2024 1:46 PM LABORER [employer]) Sodium 139 135 - 145 mmol/L Potassium, pl 4.5 3.3 - 4.9 mmol/L [facility] Chloride 103 97 - 110 mmol/L [facility] CO2 26 22 - 32 mmol/L [facility] Anion gap 10 2 - 15 mmol/L [facility] BUN 15 6 - 25 mg/dL [facility] Creatinine 0.92 0.60 - 1.10 mg/dL [facility] Glucose 105 70 - 199 mg/dL [facility] Comment: Interpretive Data Fasting glucose >/= 126 [...] classification and Diagnosis of Diabetes Diabetes Care 2021; 46: S19-S40. Current interpretive data was last revised 2022. Calcium 9.5 8.5 - 10.3 mg/dL [facility] Bilirubin, total 0.3 0.1 - 1.2 mg/dL [facility] Protein, pl 7.1 6.5 - 8.5 g/dL [facility] Albumin 4.3 3.5 - 5.0 g/dL [facility] Alk phos 121 40 - 130 Units/L [facility] ALT 19 7 - 45 Units/L [facility] AST 22 10 - 45 Units/L [facility] Blood 11/15/2024 1:46 PM [employer] 11/15/2024 2:48 PM [employer] us Marialuisa Franklin NP LAB BLOOD ORDERABLES Final Result [facility] Department [place] [address] * TB test, quantiferon gold (11/07/2024 3:55 PM LABOR[employer]) [facility] QuantiFERON(R)-T B Gold Plus, 1 Tube NEGATIVE [...] T-lymphocytes. For additional information, please refer to https://education.[employer]/faq/GZE176 (This link is being provided for informational/ educational purposes only.) Blood 11/07/2024 3:55 PM [employer] 11/07/2024 3:56 PM [employer] us Marialuisa Franklin NP LAB BLOOD ORDERABLES Final Result [facility] [id number] [phone] * Dexa Axial Skeleton Bone Density 1 or 2 Site (03/08/2024 9:24 AM CDT) Anatomical Region Laterality Modality Body N/A Radiographic Erna ging Narrative 03/08/2024 9:48 PM CDT Patient Name: Sheri Shin Date of : 1955 Date of scan: 03/08/2024 Bone mineral density was performed on a HoloMediWound Discovery Densitometer. Based on machine cross-calibration and [...] by the International Society of Clinical Densitometry. [id number] Marialuisa Franklin NP IMG DXA PROCEDURES Final R esult * Hepatitis panel, acute (05/24/2020 9:45 AM CDT) Hep A IgM Nonreactive Nonreactive [facility] Comment: Interpretive Data: If Hep A IgM Ab is reported as Equivocal, a new sample should be drawn in two weeks for testing. Current interpretive data was last revised on 19. Hep B core IgM Nonreactive Nonreactive [facility] Comment: Interpretive Data If HepB Core IgM Ab is reported as Equivocal, a new sample should be drawn in two weeks for testing. Current interpretive data was last revised on 19. Hep C Ab Nonreactive Nonreactive [facility] Comment:Antibodies to HCV no t detected. Does NOT exclude the possibility of recent exposure to HCV. HepBsAg Nonreactive Nonreactive [facility] Blood specimen (specimen) 05/24/2020 9:45 AM CDT 05/24/2020 12:08 PM CDT Marialuisa Franklin NP LAB MICROBIOLOGY - GENERAL ORDERABLES Edited Result - Final [facility] [place] [address] from Last 3 Months or Most Recently Relevant to Health Maintenance Insurance [facility] [employer] [facility] MEDICARE MEDICARE MEDICARE [employer] Address: [address] [address] [place] [address] Care Teams Community Services Coordinator Relationship Specialty Start Date End Date Kerry Coffman DO [address] [place] [address] PCP - General Internal Medicine 04/19/24
--- OUTSIDE RECORDS SUMMARY | 2024-12-13 20:56 | XMS_ITS | Referral Summary ---
Author Organization [facility] Address [address] [place] [address] Care Team Providers Care Lead Web Application Developer Name Role Phone Kerry Coffman DO Primary Care Provider [phone] Source Comments [facility],non-owned Affiliates and Associated Physician Practices is amultiple site organization consisting of ambulatory clinics and hospital sitesin [place], [place], [place] and [place]. This disclosure is being madepursuant to the Care Everywhere program and may not contain all information available regarding this patient. Last updated 18.[facility] No [employer] Encounters Date Type Department Care Team Description 12/13/2024 Orders Only [facility] - Neurology [address] [facility] [address] [facility], [place] [address] Moncho Salcedo APRN-CO FOUNDER AND PRESIDENT Cognitive decline 12/08/2024 Travel 12/08/2024 7:08 AM MODELER - 12/08/2024 9:16 AM MODELER Hospital Encounter [facility] [address] [place] [address] Cornelio Lima MD Discharge Disposition: Home or Self Care 12/08/2024 9:17 AM MODELER - 12/08/2024 11:59 PM MODELER Hospital Encounter [facility] [address] [place] [address] Cornelio Lima MD Discharge Disposition: Home or Self Care 12/08/2024 9:17 AM MODELER - 12/08/2024 11:59 PM MODELER Hospital Encounter [facility] [address] [place] [address] Cornelio Lima MD Discharge Disposition: Home or Self Care 11/28/2024 Telephone [facility] - Neurology [address] [place] [phone] Moncho Salcedo APRN-CO FOUNDER AND PRESIDENT Medication Prior Auth Request (Emgality) 11/23/2024 10:58 AM MODELER - 11/23/2024 11:59 PM MODELER Hospital Encounter [facility] [address] [facility] [place] [address] Cornelio Lima MD Discharge Disposition: Home or Self Care 11/23/2024 10:58 AM MODELER - 11/23/2024 11:59 PM MODELER Hospital Encounter [facility] [address] [facility] [place] [address] Cornelio Lima MD Discharge Disposition: Home or Self Care 11/23/2024 9:49 AM MODELER - 11/23/2024 10:57 AM MODELER Hospital Encounter [facility] C[facility] [address] [facility] [place] [address] Cornelio Lima MD Discharge Disposition: Home or Self Care 11/23/2024 Travel 11/23/2024 10:00 AM MODELER Office Visit [facility] Orthopedics [address] [place] [phone] Cornelio Lima MD Lumbar spine pain (Primary Dx); Lumbar spondylosis; Spondylolisthesis of lumbar region; Degenerative scoliosis in adult patient; Cervical spondylosis with myelopathy; Cervicalgia 11/14/2024 Telephone [facility] - Neurology [address] [place] [phone] Moncho Salcedo APRN-CO FOUNDER AND PRESIDENT Medication Clarification (Emgaltiy) 11/11/2024 Travel 11/11/2024 10:00 AM MODELER Anesthesia Event [facility] [address] [place] [phone] Doug Forrester MD Dobbs, Kristin L, JUNIOR RECRUITER-GIANNI 11/11/2024 10:15 AM MODELER - 11/11/2024 11:00 AM MODELER Surgery [facility] [address] [place] [address] Sixto Cornell MD COLONOSCOPY SCREEN--extended prep 11/11/2024 8:14 AM MODELER - 11/11/2024 11:24 AM MODELER Hospital Encounter [facility] [address] [place] [address] Sixto Cornell MD Surgery General Discharge Disposition: Home or Self Care 11/04/2024 Patient Outreach [facility] [address] [place] [address] Samantha Monterroso RN 11/02/2024 Travel 11/02/2024 3:30 PM MODELER Office Visit [facility] - Neurology [address] [place] [phone] Moncho Salcedo APRN-CNP Intractable 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 (Primary Dx) 10/26/2024 Travel 10/26/2024 10:30 AM MODELER Office Visit [facility] - GI [address] [place] [phone] Yolanda Greer APRN-CNP Chronic diarrhea (Primary Dx) 10/25/2024 Orders Only [facility] [address] [place] [address] Wendy Humphrey RN 10/24/2024 Travel 10/20/2024 Telephone [facility] - Centralized Scheduling [address] [place] [address] Moncho Salcedo APRN-CNP Appointment 10/06/2024 Orders Only [facility] OP [address] [place] [address] Alok Christie III, MD Spondylolisthesis at L4-L5 level 09/27/2024 Travel 09/27/2024 Telephone [facility] Neurology [address] [place] [phone] Rissa Vo MD Med Question 09/19/2024 9:05 AM MODELER - 09/19/2024 11:59 PM MODELER Hospital Encounter [facility] OP [address] [place] [address] Kerry Coffman DO Discharge Disposition: Home or Self Care 09/19/2024 Travel 09/19/2024 8:00 AM MODELER Office Visit [facility] - Internal Med [address] [facility] [place] [address] Kerry Coffman DO Routine general medical examination at health care facility (Primary Dx); Acute bilateral low back pain without sciatica; Acute pain of left knee; Type 2 diabetes mellitus with hyperglycemia, without long-term current use of insulin ([facility]); Chronic diarrhea; Migraine without aura and without status migrainosus, not intractable; Benign essential tremor; Bipolar affective disorder, remission status unspecified ([facility]); Rheumatoid arthritis with negative rheumatoid factor, involving unspecified site ([facility]) 09/15/2024 Refill [facility] - Neurology [address] [facility] [address] [facility], [place] [address] Rissa Vo MD MEDICATION REFILL from Last 3 Months Allergies Active Allergy [...] hyperglycemia, without long-term current use of insulin ([facility]) Use 1 Each 2 times daily 12/08/2022 [...] tabletIndications: Bipolar affective disorder, remission status unspecified (HCC) Take 1 (one) tablet by mouth 2 [...] route every 30 days Active blood glucose (RedLassoTouch Ultra) test stripIndications:T ype 2 diabetes mellitus with hyperglycemia, without long-term current use of insulin ([facility]) USE 1 STRIP TO CHECK GLUCOSE TWICE [...] rhinitis, unspecified seasonality, unspecified trigger,Chronic daily headache Troup 2 (two) sprays into each nostril once daily 16 g 6 08/11/2024 Active azelastine (Astelin) 0.1 % nasal sprayIndications:C hronic rhinitis,Allergic rhinitis, unspecified seasonality, unspecified trigger,Chronic daily headache Troup 1 (one) spray into each nostril 2 [...] hyperglycemia, without long-term current use of insulin ([facility]) Use 1 device as directed 1 kit [...] 11/14/2019 Memory impairment 11/14/2019 Bipolar disorder 07/08/2012 Immunizations Name Administration Dates Next Due COVID [...] Zoster Hzv Vacc Recombinant Inj Im 10/15/2022,,05/16/2021 Social History Tobacco Use Types Packs/Day Years [...] Sex Assigned at Female 09/16/2024 2:41 PM MODELER Gender Identity Female 09/16/2024 2:41 PM MODELER Sexual Orientation Straight 09/16/2024 2: 41 PM MODELER Last Filed Vital Signs Vital Sign Reading Time Taken Comments Blood Pressure 114/82 12/08/2024 12:30 PM MODELER Pulse 59 12/08/2024 12:30 PM MODELER Temperature 36.6 C (97.8 F) 12/08/2024 10:30 AM MODELER Respiratory Rate 14 12/08/2024 12:30 PM MODELER Oxygen Saturation 96% 12/08/2024 12:30 PM MODELER Inhaled Oxygen Concentration - - Weight 66.9 kg (147 lb 8 oz) 12/08/2024 8:01 AM MODELER Height 167.6 cm (5' 6 ) 12/08/2024 8:01 AM MODELER Body Mass Index 23.81 12/08/2024 8:01 AM MODELER Functional Status Functional Status Response Date of [...] person have difficulty concentrating/remembering/making decisions? No 12/08/2024 Plan of Treatment Upcoming Encounters Date Type Department Care Team (Late st Contact Info) Description 12/15/2024 2:20 PM MODELER Office Visit [facility] - Endocrinology [address] [place] [phone] Marquise Adames MD [address] [place] [address] [place] [address] 01/04/2025 9:15 AM CDT Office Visit [facility] - Orthopedics [address] [place] [phone] Cornelio Lima MD [address] [place] [address] 01/25/2025 10:30 AM CDT Office Visit [facility] - GI [address] [place] [address], [place] [address] Yolanda Greer, JUNIOR RECRUITER-CO FOUNDER AND PRESIDENT [address] [place] [phone] 02/09/2025 11:15 AM CDT Office Visit [facility] - Ophthalmology [address] [place] [address], [place] [address] Percy Matute MD [address] [place] [address] [place] [phone] 02/09/2025 4:00 PM CDT Office Visit [facility] - Allergy [address] [place] [address], [place] [address] Papito Morales MD [address] [place] [address] [address] DIV OF ALLERGY/[place] [address] 03/02/2025 1:00 PM CDT Office Visit [facility] - Neurology [address] [place] [address], [place] [address] Moncho Salcedo, JUNIOR RECRUITER-CO FOUNDER AND PRESIDENT [address] [place] [address] [address] [place] [phone] 03/20/2025 11:00 AM CDT Office Visit [facility] - Internal Med [address] [place] [address], [place] [phone] Kerry Coffman DO [address] [place] [address] [address] DIV [place] [address] 04/13/2025 3:00 PM CDT Office Visit [facility] - Allergy [address] [place] [address], [place] [phone] Papito Morales MD [address] OF ALLERGY/[place] [address] Goals Goal Patient Goal Type Associated Problems Recent Progress Patient-Stated? Author Medication Management General On track( 025 10:42 AM MODELER) Marion Scott, RN Note: Expected end date: ongoing Interventions: Take all medications as prescribed Medical Devices Implanted Type Area [employer] Product Manager Device Identifier Shelf Expiration Date Model / Serial / Lot Slnt Dura Duraseal Pg Trilysine Amine 5 Implanted:Qty: 1 on 03/17/2022 by Jackelyn Yang MD at [facility] Left: Cranial [employer] 08/11/2023 [id number] / / [id number] Guardian Branial Yuriy Hole Cover Sys Implanted:Qty: 1 on 03/17/2022 by Jackelyn Yang MD at [facility] Left: Cranial [employer] 01/01/2024 6010 / / [id number] Directional Lead Implanted:Qty: 1 on 03/17/2022 by Shailesh North MD at [facility] Left: Cranial [employer] 09/25/2023 6172 / [id number] / Lead Extension Implanted:Qty: 1 on 03/24/2022 by Shailesh North MD at [facility] Left: Neck Cyr[employer] 01/15/2024 [id number] / / [id number] Generator Implanted:Qty: 1 on 03/24/2022 by Shailesh North MD at [facility] Left: Chest [employer] 11/19/2023 6662 / / [id number] [place] Spnl 140mm 6.35mm Ti Str Implanted:Qty: 1 on 08/29/2022 by Shailesh North MD at [facility] Right: Scalp [employer] 04/02/2024 6010 / / [employer] Dbs System Implanted:Qty: 1 on 08/29/2022 by Joshua Gill MD at [facility] Right: Brain 03/19/2024 6172 / [id number] / Description:cost per Levar [employer] Dbs System Implanted:Qty: 1 on 08/29/2022 by Joshua Gill MD at [facility] Right: Chest Wall 04/23/2024 6373 / [id number] / Description:cost per levar Procedures Procedure Name Priority Date/Time Associated Diagnosis Comments FL MYELOGRAM 2 OR MORE REGIONS Routine 12/08/2024 10:27 AM MODELER Lumbar spine pain CT LUMBAR POST MYELOGRAM Routine 12/08/2024 10:25 AM MODELER Lumbar spine pain CT CERVICAL POST MYELOGRAM Routine 12/08/2024 10:25 AM MODELER Lumbar spine pain XR SPINE ENTIRE 2 OR 3VW Routine 11/23/2024 11:09 AM MODELER Lumbar spine pain XR CERVICAL SPINE 2 OR 3VW Routine 11/23/2024 11:06 AM MODELER Lumbar spine pain XR LUMBAR SPINE 2 OR 3VW Routine 11/23/2024 10:00 AM MODELER Lumbar spine pain PATHOLOGY TISSUE Routine 11/11/2024 10:1 6 AM MODELER Screen for colon cancer MS COLOREC CANC SCRN,SCOPY NOT HI RISK 11/11/2024 9:55 AM MODELER Screen for colon cancer ENDOSCOPY, COLON, SCREENING Routine 11/11/2024 9:52 AM MODELER GLUCOSE - POINT OF CARE Routine 11/11/2024 9:19 AM MODELER CALPROTECTIN FECAL Routine 11/07/2024 3: 52 PM MODELER Chronic diarrhea CULTURE STOOL PANEL Routine 11/07/2024 3 :52 PM MODELER Chronic diarrhea C DIFFICILE CYTOTOXIN Routine 11/07/2024 3:51 PM MODELER Chronic diarrhea PROC DEEP BRAIN STIMULATOR Routine 11/03/2024 2:08 PM MODELER Intractable 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 XR LUMBAR SPINE 4VW OR MORE Routine 09/19/2024 9:18 AM MODELER Acute bilateral low back pain without sciatica XR KNEE LEFT 4VW OR MORE Routine 09/19/2024 9:18 AM MODELER Acute pain of left knee COMPREHENSIVE METABOLIC [...] 2 or More Regions (12/08/2024 10:27 AM MODELER) Anatomical Region Laterality Modality Spine Digital Radiogra phy 12/08/2024 1:17 PM MODELER Impressions 12/13/2024 12:15 PM MODELER IMPRESSION: 1.Successful lumbar puncture for cervical and [...] degenerative disc and joint disease as detailed gfptl-kw-xxong above, worse at L4-L5, as outlined. 2.Transitional anatomy as noted above. The report is dictated by Addi Arambula MD, (residential appliance repair technician) Attending Physician: Dr. Magdalena Blackmon Wheel Molder: Dr. dAdi Arambula MD, (residential appliance repair technician) The procedure was performed by the: The clinical education assistant, and the attending radiologist was present [...] 12/13/2024 12:15 PM Narrative 12/13/2024 12:15 PM MODELER PROCEDURE: FL MYELOGRAM 2 OR MORE REGIONS, CT LUMBAR POST MYELOGRAM, CT CERVICAL POST MYELOGRAM DATE/TIME OF EXAM: 12/08/2024 10:34 AM CLINICAL INFORMATION: PROCEDURE: FL MYELOGRAM 2 OR MORE REGIONS, CT LUMBAR POST MYELOGRAM, CT CERVICAL POST MYELOGRAM, DATE/TIME OF EXAM: 12/08/2024 10:34 AM, LOCATION [facility] INDICATION: M54.50: Lumbar spine pain ADDITIONAL CLINICAL INFORMATION: Ordering Provider Reason For Exam: myelopathy (accession [id number]), chronic low back pain (accession [id number]) Technologist Note: None. Additional: None. EXAMINATION: 1.Lumbar [...] The patient was then transferred to the rn acute care unit for further observation and 2 hours [...] no high-grade central canal stenosis. There is ggpt-fd-dzfaizlz facet osteoarthritis. There is mild bilateral neural foraminal stenosis. Procedure Note Magdalena Blackmon MD - 12/13/2024 PROCEDURE: FL MYELOGRAM 2 OR MORE REGIONS, CT LUMBAR POST MYELOGRAM, CT CERVICAL POST MYELOGRAM DATE/TIME OF EXAM: 12/08/2024 10:34 AM CLINICAL INFORMATION: PROCEDURE: FL MYELOGRAM 2 OR MORE REGIONS, CTLUMBAR POST MYELOGRAM, CT CERVICAL POST MYELOGRAM, DATE/TIME OF EXAM:12/08/2024 10:34 AM, LOCATION [facility] INDICATION: M54.50: Lumbar spine pain ADDITIONAL CLINICAL INFORMATION: Ordering Provider Reason For Exam: myelopathy (accession [id number]), chronic low back pain (accession [id number]) Technologist Note: None. Additional: None. EXAMINATION: 1.Lumbar [...] well. The patient wasthen transferred to the rn acute care unit for further observation and 2hours of [...] island in the right aspect of the O2acnvzexfj body. Vertebral bodies are normal in height [...] is no high-grade central canal stenosis. Thereis iyot-cq-ahfcfbad facet osteoarthritis. There is mild bilateral neural [...] 1.Multilevel degenerative disc and joint disease as brppaphmnxcuc-gn-hpjvr above, worse at L4-L5, as outlined. 2.Transitional anatomy as noted above. The report is dictated by Addi Arambula MD, (residential appliance repair technician) Attending Physician: Dr. Magdalena Blackmon Wheel Molder: Dr. Addi Arambula MD, (residential appliance repair technician) The procedure was performed by the: The clinical education assistant, and the attending radiologist was present for allcritical and mariscal portions of the procedure, and was immediately available [facility] services during the entire procedure. The attending radiologist performed the following procedural activities: IDr. Magdalena was there and supervised mariscal portions of the procedure, not scrubbed. IMagdalena MD have personally reviewed and interpretedthis examination/study. > Interpreting Provider: Magdalena Blackmon MD on 12/13/2024 12:15 PM Cornelio Lima MD FLUOROSCOPY OR DERABLES * CT Lumbar Post Myelogram (12/08/2024 10:25 AM MODELER) Anatomical Region Laterality Modality Spine Computed Tomogra phy 12/08/2024 1:17 PM MODELER Impressions 12/13/2024 12:15 PM MODELER IMPRESSION: 1.Successful lumbar puncture for cervical and [...] degenerative disc and joint disease as detailed fjpgt-oq-zfcfd above, worse at L4-L5, as outlined. 2.Transitional anatomy as noted above. The report is dictated by Addi Arambula MD, (residential appliance repair technician) Attending Physician: Dr. Magdalena Blackmon Wheel Molder: Dr. Addi Arambula MD, (residential appliance repair technician) The procedure was performed by the: The clinical education assistant, and the attending radiologist was present [...] 12/13/2024 12:15 PM Narrative 12/13/2024 12:15 PM MODELER PROCEDURE: FL MYELOGRAM 2 OR MORE REGIONS, CT LUMBAR POST MYELOGRAM, CT CERVICAL POST MYELOGRAM DATE/TIME OF EXAM: 12/08/2024 10:34 AM CLINICAL INFORMATION: PROCEDURE: FL MYELOGRAM 2 OR MORE REGIONS, CT LUMBAR POST MYELOGRAM, CT CERVICAL POST MYELOGRAM, DATE/TIME OF EXAM: 12/08/2024 10:34 AM, LOCATION [facility] INDICATION: M54.50: Lumbar spine pain ADDITIONAL CLINICAL INFORMATION: Ordering Provider Reason For Exam: myelopathy (accession [id number]), chronic low back pain (accession [id number]) Technologist Note: None. Additional: None. EXAMINATION: 1.Lumbar [...] The patient was then transferred to the rn acute care unit for further observation and 2 hours [...] no high-grade central canal stenosis. There is orta-ho-vbglltjh facet osteoarthritis. There is mild bilateral neural foraminal stenosis. Procedure Note Magdalena Blackmon MD - 12/13/2024 PROCEDURE: FL MYELOGRAM 2 OR MORE REGIONS, CT LUMBAR POST MYELOGRAM, CT CERVICAL POST MYELOGRAM DATE/TIME OF EXAM: 12/08/2024 10:34 AM CLINICAL INFORMATION: PROCEDURE: FL MYELOGRAM 2 OR MORE REGIONS, CTLUMBAR POST MYELOGRAM, CT CERVICAL POST MYELOGRAM, DATE/TIME OF EXAM:12/08/2024 10:34 AM, LOCATION [facility] INDICATION: M54.50: Lumbar spine pain ADDITIONAL CLINICAL INFORMATION: Ordering Provider Reason For Exam: myelopathy (accession [id number]), chronic low back pain (accession [id number]) Technologist Note: None. Additional: None. EXAMINATION: 1.Lumbar [...] well. The patient wasthen transferred to the rn acute care unit for further observation and 2hours of [...] island in the right aspect of the Z2oebflywol body. Vertebral bodies are normal in height [...] is no high-grade central canal stenosis. Thereis dljr-lc-amqdotfo facet osteoarthritis. There is mild bilateral neural [...] 1.Multilevel degenerative disc and joint disease as yenlelawpdytz-kb-dqrku above, worse at L4-L5, as outlined. 2.Transitional anatomy as noted above. The report is dictated by Addi Arambula MD, (residential appliance repair technician) Attending Physician: Dr. Magdalena Blackmon Wheel Molder: Dr. Addi Arambula MD, (residential appliance repair technician) The procedure was performed by the: The clinical education assistant, and the attending radiologist was present for allcritical and mariscal portions of the procedure, and [facility] entire procedure. The attending radiologist performed the following procedural activities: Dr. Magdalena Gutierrez was there and supervised mariscal portions of the procedure, not scrubbed. Magdalena Gutierrez MD have personally reviewed and interpretedthis examination/study. > Interpreting Provider: Magdalena Blackmon MD on 12/13/2024 12:15 PM Cornelio Lima MD CT ORDERABLES * CT Cervical Post Myelogram (12/08/2024 10:25 AM MODELER) Anatomical Region Laterality Modality Spine Computed Tomogra phy 12/08/2024 1:17 PM MODELER Impressions 12/13/2024 12:15 PM MODELER IMPRESSION: 1.Successful lumbar puncture for cervical and [...] degenerative disc and joint disease as detailed tzxug-eu-wkcms above, worse at L4-L5, as outlined. 2.Transitional anatomy as noted above. The report is dictated by Addi Arambula MD, (residential appliance repair technician) Attending Physician: Dr. Magdalena Blackmon Wheel Molder: Dr. Addi Arambula MD, (residential appliance repair technician) The procedure was performed by the: The clinical education assistant, and the attending radiologist was present for all critical and mariscal portions of the procedure, and was immediately available to furnish services during the entire procedure. The attending radiologist performed the following procedural activities: IDr. Magdalena was there and supervised mariscal portions of the procedure, not scrubbed. IMagdalnea MD have personally reviewed and interpreted this examination/study. > Interpreting Provider: Magdalena Blackmon MD on 12/13/2024 12:15 PM Narrative 12/13/2024 12:15 PM MODELER PROCEDURE: FL MYELOGRAM 2 OR MORE REGIONS, CT LUMBAR POST MYELOGRAM, CT CERVICAL POST MYELOGRAM DATE/TIME OF EXAM: 12/08/2024 10:34 AM CLINICAL INFORMATION: PROCEDURE: FL MYELOGRAM 2 OR MORE REGIONS, CT LUMBAR POST MYELOGRAM, CT CERVICAL POST MYELOGRAM, DATE/TIME OF EXAM: 12/08/2024 10:34 AM, LOCATION [facility] INDICATION: M54.50: Lumbar spine pain ADDITIONAL CLINICAL INFORMATION: Ordering Provider Reason For Exam: myelopathy (accession [id number]), chronic low back pain (accession [id number]) Technologist Note: None. Additional: None. EXAMINATION: 1.Lumbar [...] The patient was then transferred to the rn acute care unit for further observation and 2 hours [...] no high-grade central canal stenosis. There is uehs-bk-hkcbtysi facet osteoarthritis. There is mild bilateral neural foraminal stenosis. Procedure Note Magdalena Blackmon MD - 12/13/2024 PROCEDURE: FL MYELOGRAM 2 OR MORE REGIONS, CT LUMBAR POST MYELOGRAM, CT CERVICAL POST MYELOGRAM DATE/TIME OF EXAM: 12/08/2024 10:34 AM CLINICAL INFORMATION: PROCEDURE: FL MYELOGRAM 2 OR MORE REGIONS, CTLUMBAR POST MYELOGRAM, CT CERVICAL POST MYELOGRAM, DATE/TIME OF EXAM:12/08/2024 10:34 AM, LOCATION [facility] INDICATION: M54.50: Lumbar spine pain ADDITIONAL CLINICAL INFORMATION: Ordering Provider Reason For Exam: myelopathy (accession [id number]), chronic low back pain (accession [id number]) Technologist Note: None. Additional: None. EXAMINATION: 1.Lumbar [...] well. The patient wasthen transferred to the rn acute care unit for further observation and 2hours of [...] island in the right aspect of the H0yoybwwqff body. Vertebral bodies are normal in height [...] is no high-grade central canal stenosis. Thereis zchl-lf-slcfmotv facet osteoarthritis. There is mild bilateral neural [...] 1.Multilevel degenerative disc and joint disease as btwuwfmqjhyxt-lo-zznmd above, worse at L4-L5, as outlined. 2.Transitional anatomy as noted above. The report is dictated by Addi Arambula MD, (residential appliance repair technician) Attending Physician: Dr. Magdalena Blackmon Wheel Molder: Dr. Addi Arambula MD, (residential appliance repair technician) The procedure was performed by the: The clinical education assistant, and the attending radiologist was present for allcritical and mariscal portions of the procedure, and was immediately available [facility] services during the entire procedure. The attending radiologist performed the following procedural activities: Dr. Magdalena Gutierrez was there and supervised mariscal portions of the procedure, not scrubbed. Magdalena Gutierrez MD have personally reviewed and interpretedthis examination/study. > Interpreting Provider: Magdalena Blackmon MD on 12/13/2024 12:15 PM Cornelio Lima MD CT ORDERABLES * XR Spine Entire 2 or 3Vw (11/23/2024 11:09 AM MODELER) Anatomical Region Laterality Modality Spine Radiographic Erna ging 11/23/2024 11:3 1 AM MODELER Impressions 11/23/2024 11:34 AM MODELER IMPRESSION: Mild scoliosis. > Interpreting Provider: Baljinder Henson MD on 11/23/2024 11:34 AM Narrative 11/23/2024 11:34 AM MODELER PROCEDURE: XR SPINE ENTIRE 2 OR 3VW [...] 10 degrees, a lower thoracic levo curve [id number] degrees, and a lumbar dextro curve measuring [...] Spine 2 or 3Vw (11/23/2024 11:06 AM MODELER) Anatomical Region Laterality Modality Spine Radiographic Erna ging 11/23/2024 11:2 9 AM MODELER Impressions 11/23/2024 11:31 AM MODELER IMPRESSION: Moderate cervical spondylosis. > Interpreting Provider: Baljinder Henson MD on 11/23/2024 11:31 AM Narrative 11/23/2024 11:31 AM MODELER PROCEDURE: XR CERVICAL SPINE 2 OR 3VW [...] Spine 2 or 3Vw (11/23/2024 10:00 AM MODELER) Anatomical Region Laterality Modality Spine Computed Radiogr aphy 11/23/2024 10:3 8 AM MODELER Impressions 11/23/2024 10:39 AM MODELER IMPRESSION: Mild to moderate degenerative changes. > Interpreting Provider: Baljinder Henson MD on 11/23/2024 10:39 AM Narrative 11/23/2024 10:39 AM MODELER PROCEDURE: XR LUMBAR SPINE 2 OR 3VW [...] ORDERABLES * PATHOLOGY TISSUE (11/11/2024 10:16 AM MODELER) Case Report Surgical Pathology Report Case: [id number] Authorizing Provider: Sixto Cornell MD Collected: 11/11/2024 10:16 AM Ordering Location: [facility] Received: 11/11/2024 10:58 AM Pathologist: Kenyatta Norris MD Specimens: A) - Polyp Ascending, ascending colon polyp B) - Polyp Descending, descending colon polyps 11/14/2024 3:20 PM [facility] Final Diagnosis Large intestine, ascending colon polyp, biopsy (A): - Tubular adenoma Large intestine, descending colon polyps, biopsy (B): - Tubular adenoma(s), fragmented 11/14/2024 3:20 PM [facility] Microscopic Description and Comment Microscopic examination substantiates the final diagnosis. 11/14/2024 3:20 PM [facility] Clinical History The patient is a 69-year-old woman who presents for high risk colon cancer surveillance (personal history of colonic polyps). Operative procedure/findings: Colonoscopy - 2 mm ascending colon polyp, 4 and 5 mm descending colon polyps, resected and retrieved 11/14/2024 3:20 PM [facility] Gross Description The requisition and [...] cassette labeled B1. RB 11/14/2024 3:20 PM [facility] Pathologist Location at [facility] 11/14/2024 3:20 PM [facility] Disclaimer The performance characteristics of all immunohistochemical and indirect immunofluorescence stains (if any) cited in this report were determined by the Histopathology Laboratory of [facility]. Some of these tests were developed by [...] the attending (teaching) pathologist. 11/14/2024 3:20 PM MODELER [facility] Embedded Images 11/14/2024 3:20 PM MODELER [facility] Biopsy, NOS POLYP / Unknown 11/11/2024 1 0:16 AM MODELER 11/11/2024 10:58 AM MODELER Comment:Pre-op diagnosis: Screen for colon cancer [Z12.11] Biopsy, NOS POLYP / Unknown 11/11/2024 1 0:19 AM MODELER 11/11/2024 10:58 AM MODELER Comment:Pre-op diagnosis: Screen for colon cancer [Z12.11] Sixto Cornell MD LAB - PATHOLOGY/CYTO LOGY ORDERABLES [facility] [address] [phone] * ENDOSCOPY, COLON, SCREENING (11/11/2024 9:52 AM MODELER) Report Endoscopy POC Endoscopy Department Report _ [...] bowel preparation was evaluated using the BBPS ([place] Bowel Preparation Scale) with scores of: Right [...] non-mariscal portions. Procedure Code(s): --- Professional --- 43855, Colonoscopy, flexible; with removal of tumor(s), polyp(s), or other lesion(s) by snare technique 60354, 59, Colonoscopy, flexible; with biopsy, single or multiple Diagnosis Code(s): --- Professional --- Z86.010, Personal history of colonic polyps D12.2, Benign neoplasm of ascending colon D12.4, Benign neoplasm of descending colon K57.30, Diverticulosis of large intestine without perforation or abscess without bleeding CPT copyright 2021 [employer]. All rights reserved. The codes documented in this report are preliminary and upon rotary adjuster review may be revised to meet current compliance requirements. Sixto Cornell MD 11/11/2024 10:36:45 AM This report has been signed electronically. Note Initiated On: 11/11/2024 9:52 AM Number of Addenda: [address] [address] [facility] 11/11/2024 9:52 AM MODELER Sixto Cornell MD GI PROCEDURE ORDERAB LES [facility] * GLUCOSE - POINT OF CARE (11/11/2024 9:19 AM MODELER) Glucose WB/POC 99 70 - 99 mg/dL 11/11/2024 9:54 AM MODELER [facility] Specimen Type Venous 11/11/2024 9:54 AM [facility] Blood BLOOD SPECIMEN / Unknown 11/11/2024 9:19 AM MODELER 11/11/2024 9:54 AM MODELER Sixto Cornell MD LAB - POINT OF CARE ORDERABLES [address] [place] [address], [facility] [phone] * CALPROTECTIN FECAL (11/07/2024 3:52 PM MODELER) Calprotectin Fecal 69 mcg/g [facility] Comment: Reference [...] suggested for borderline values. Test Performed at: [facility] [address] [place] [address] JARRELL CALDERON MD,PHD,EDGARDO Stool STOOL SPECIMEN / Unknown 11/07/2024 3:52 PM MODELER 11/08/2024 4:47 AM MODELER Yolanda Greer APRN-CO FOUNDER AND PRESIDENT LAB - CRISTINA DY FLUID ORDERABLES [address] [address] * CULTURE STOOL PANEL (11/07/2024 3:52 PM MODELER) Campylobacter Antigen [facility] Comment: CAMPYLOBACTER SPP. AG,EIA Micro Number: [id number] Test Status: Final Specimen Source: Stool Specimen Quality: Adequate Campy Ag Result: Not Detected Reference Range: Not Detected EIA [facility] Comment: SHIGA TOXINS, EIA W/RFL TO E.COLI O157 CULTURE Micro Number: [id number] Test Status: Final Specimen Source: Stool Specimen Quality: Adequate Shiga Toxin: Not Detected Reference Range: Not Detected Culture [facility] Comment: SALMONELLA AND SHIGELLA, CULTURE Micro Number: [id number] Test Status: Final Specimen Source: Stool Specimen Quality: Adequate Result: No Salmonella or Shigella isolated Test Performed at: [facility] [address] SAROJ FAUSTIN MD Stool STOOL SPECIMEN / Unknown 11/07/2024 3:52 PM MODELER 11/07/2024 11:51 PM MODELER Yolanda Greer JUNIOR RECRUITER-CO FOUNDER AND PRESIDENT LAB - DE CROBIOLOGY ORDERABLES Performing Organization Address [facility] de Phone Number [facility] [phone] [place] [address] * C DIFFICILE CYTOTOXIN (11/07/2024 3:51 PM MODELER) Cytotoxin Assay Stool NOT DETECTED [facility] Comment: REFERENCE RANGE: NOT DETECTED Per [facility] the Clostridium difficile cytotoxicity assay, order code 4408, has served as a historical gold standard for diagnosing clinical significant disease caused by Clostridium difficile, however, it is not timely for routine diagnosis. [facility] and [facility] guidelines now recognize either two step testing using Clostridium difficile toxin/Glutamate Dehydrogenase (GDH) with Reflex to PCR, order code 64505 or Clostridium difficile toxin B, Qualitative real time PCR, test code 52204 to be more sensitive and timely methods for the diagnosis of C. difficile colitis. For additional information, please refer to http://education.MediSwipe/faq/UGO555 (This link is being provided for informational/ educational purposes only.) Test Performed at: [facility] [address] [place] [address] JARRELL CALDERON MD,PHD,EDGARDO Stool STOOL SPECIMEN / Unknown 11/07/2024 3:51 PM MODELER 11/08/2024 4:58 AM MODELER Yolanda Greer APRN-CO FOUNDER AND PRESIDENT LAB - DE CROBIOLOGY ORDERABLES Performing Organization Address [facility] Co de Phone Number [facility] [phone] [place] [address] * PROC DEEP BRAIN STIMULATOR (11/03/2024 2:08 PM MODELER) Narrative Moncho Salcedo APRN-CNP - 11/03/2024 2:08 PM MODELER Moncho Salcedo APRN-CNP 11/03/2024 4:00 PM Please see office notes for documentation- Thanks Moncho Salcedo JUNIOR RECRUITER-CO FOUNDER AND PRESIDENT PROCEDURE/MINOR SURGICAL ORDERABLES * XR Knee Left 4Vw or More (09/19/2024 9:18 AM MODELER) Anatomical Region Laterality Modality Lower Extremity Digital Radiogra phy 09/19/2024 10:0 4 AM MODELER Impressions 09/19/2024 10:41 AM MODELER IMPRESSION: No acute fracture or dislocation identified. Report dictated by Arnoldo Walker MD (residential appliance repair technician). Baljinder Gutierrez MD have personally reviewed and interpreted this examination/study. > Interpreting Provider: Baljinder Henson MD on 09/19/2024 10:41 AM Narrative 09/19/2024 10:41 AM MODELER PROCEDURE: XR KNEE LEFT 4VW OR MORE, DATE/TIME OF EXAM: 09/19/2024 9:19 AM, LOCATION [facility] INDICATION: M25.562: Acute pain of left knee ADDITIONAL CLINICAL INFORMATION: COMPARISON: None. FINDINGS: The osseous structures are intact and well aligned without acute fracture or dislocation. The knee joint space is preserved. No joint effusion is seen. Procedure Note Baljinder Henson MD - 09/19/2024 PROCEDURE: XR KNEE LEFT 4VW OR MORE, DATE/TIME OF EXAM: 09/19/2024 9:19 AM, LOCATION [facility] INDICATION: M25.562: Acute pain of left knee ADDITIONAL CLINICAL INFORMATION: COMPARISON: None. FINDINGS: The osseous structures are intact and well aligned without acutefracture or dislocation. The knee joint space is preserved. No joint effusion is seen. IMPRESSION: No acute fracture or dislocation identified. Report dictated by Arnoldo Walker MD (residential appliance repair technician). Baljinder Gutierrez MD have personally reviewed and interpreted this examination/study. > Interpreting Provider: Baljinder Henson MD on 09/19/2024 10:41 AM Kerry Montemayorhbach DO DIAGNOSTIC IMAGING O RDERABLES * XR Lumbar Spine 4Vw or More (09/19/2024 9:18 AM MODELER) Anatomical Region Laterality Modality Spine Digital Radiogra phy 09/19/2024 10:2 2 AM MODELER Impressions 09/19/2024 3:01 PM MODELER IMPRESSION: Moderate dextroscoliosis. Grade 1 anterior spondylolisthesis of L4 relative to L5 seen in association with mild instability as discussed above. > Dictated by Kim Noonan MD, (residential appliance repair technician). I, Sergio Omalley MD have personally reviewed and interpreted this examination/study. > Interpreting Provider: Sergio Omalley MD on 09/19/2024 3:01 PM Narrative 09/19/2024 3:01 PM MODELER PROCEDURE: XR LUMBAR SPINE 4VW OR MORE, DATE/TIME OF EXAM: 09/19/2024 9:19 AM, LOCATION [facility] INDICATION: M54.50: Acute bilateral low back pain [...] MORE, DATE/TIME OF EXAM: 49:19 AM, LOCATION [facility] INDICATION: M54.50: Acute bilateral low back pain [...] above. > Dictated by Kim Noonan MD, (residential appliance repair technician). I, Sergio Omalley MD have personally reviewed and interpreted this examination/study. > Interpreting Provider: Sergio Omalley MD on 09/19/2024 3:01 PM Kerry Coffman DO DIAGNOSTIC IMAGING O RDERABLES * (ABNORMAL) COMPREHENSIVE METABOLIC PANEL (07/20/2024 11:49 AM CDT) BUN 10 7 - 26 mg/dL 07/20/2024 12:52 PM [facility] Creatinine 0.80 0.56 - 0.96 mg/dL 07/20/2024 12:52 PM [facility] Sodium 139 136 - 145 mmol/L 07/20/2024 12:52 PM [facility] Potassium 4.3 3.5 - 4.5 mmol/L 07/20/2024 12:52 PM [facility] Chloride 103 98 - 107 mmol/L 07/20/2024 12:52 PM [facility] CO2 28 22 - 29 mmol/L 07/20/2024 12:52 PM [facility] Glucose 165(H) 70 - 115 mg/dL 07/20/2024 12:52 PM [facility] Calcium 9.8 8.4 - 10.2 mg/dL 07/20/2024 12:52 PM [facility] Protein Total 7.1 6.0 - 8.3 g/dL 07/20/2024 12:52 PM [facility] Albumin 4.2 3.4 - 5.0 g/dL 07/20/2024 12:52 PM [facility] Bilirubin Total 0.2 0.2 - 1.2 mg/dL 07/20/2024 12:52 PM [facility] Alkaline Phosphatase 124 40 - 150 U/L 07/20/2024 12:52 PM T [facility] ALT 16 5 - 55 U/L 07/20/2024 12:52 PM [facility] AST 20 5 - 34 U/L 07/20/2024 12:52 PM [facility] Anion Gap 8 6 - 16 07/20/2024 12:52 PM [facility] BUN/Creatinine Ratio 13 7 - 23 07/20/2024 12:52 PM [facility] Osmolality Calculated 291 275 - 295 mOsm/kg 07/20/2024 12:52 PM [facility] Albumin/Globulin Ratio 1.4 1.1 - 2.3 07/20/2024 12:52 PM [facility] eGFR by CKD-EPI 80(L) >=90 mL/min/1.7 3 m2 07/20/2024 12:52 PM [facility] Blood BLOOD SPECIMEN / Unknown Lab Venipuncture / Unknown 07/20/2024 11:49 AM CDT 07/20/2024 12:17 PM CDT Yolanda Greer JUNIOR RECRUITER-CO FOUNDER AND PRESIDENT LAB - CH EMISTRY ORDERABLES [facility] [address] [place] [address], [facility] [phone] * HEMOGLOBIN A1C - POINT OF CARE (AMB) [facility] (04/04/2024 11:34 AM CDT) Hemoglobin A1c POCT 5.4 % [address] BLOOD SPECIMEN / Unknown 04/04/2024 11:34 AM CDT Kerry Coffman DO LAB - POINT OF CARE ORDERABLES Performing Organization Address [facility]/ZIP Co de Phone Number [address] [place] [address], [facility] [phone] * MICROALB/CREAT RATIO URINE RANDOM PANEL (02/05/2023 [...] within a diagnostic category. Test Performed at: [facility] [address] [place] [address] SAROJ FAUSTIN MD 02/05/2023 12:2 6 PM CDT 02/05/2023 12:27 PM CDT Marquise Adames MD LAB - URINE CHEMISTR Y ORDERABLES Performing Organization Address City/State/[facility] Co de Phone Number [facility] [phone] [place] [address] from Last 3 Months or Most Recently Relevant to Health Maintenance Advance Directives * Full Code (Latest Code Status on File) Date Activated Date Inactivated Comments 08/29/2022 4:40 PM 08/31/2022 1:59 PM * Full Code Date Activated Date Inactivated Comments 03/17/2022 3:37 PM 03/19/2022 1:47 PM Care Teams Lead Web Application Developer Relationship Specialty Start Date End Date Kerry Coffman DO [address] OF [facility] [place] [address] PCP - General Internal Medicine 12/15/23
--- OUTSIDE RECORDS SUMMARY | 2024-12-13 20:56 | XMS_ITS | Patient Health Summary ---
Author Organization [facility] Address [address] [place] [address] Care Team Providers Care Thermocouple Tester Name Role Phone Kerry Coffman DO Primary Care Provider [phone] Note from [facility],non-owned Affiliates and Associated Physician Practices is amultiple site organization consisting of ambulatory clinics and hospital sitesin [place], [place], [place] and [place]. This disclosure is being madepursuant to the Care Everywhere program and may not contain all information available regarding this patient. Last updated 18.[facility] Allergies * Penicillins(Anaphylaxis) -High Criticality * Sulfa Drugs(Rash) -Medium Criticality Medications * Be aware that medications may not be up to date on this document. Alwaysverify current medications with the patient. * propranolol CR 24hr (INDERAL LA) 120 MG capsule(Started 11/08/2019) Take 1 (one) capsule by mouth once daily * sertraline (ZOLOFT) 100 MG tablet(Started 11/08/2019) Take 1 (one) tablet by mouth 2 times daily * leflunomide (ARAVA) 20 MG tablet(Started 03/13/2022) Take 1 (one) tablet by mouth once daily * loratadine (CLARITIN) 10 MG tablet(Started 01/17/2022) Take 1 (one) tablet by mouth once daily * Calcium Carbonate (CALTRATE 600 PO) Take 1 tablet by mouth 2 times daily * Lancets (ONETOUCH DELICA PLUS 33G EXTRA FINE LANCET)(Started 12/08/2022) Use 1 Each 2 times daily * Cyanocobalamin (Vitamin B12) 500 MCG TABS Take 500 mcg by mouth once daily * loperamide (Imodium) 2 MG capsule Take 1 (one) capsule by mouth 2 times daily as needed * pseudoephedrine CR 12hr (Sudafed) 120 MG tablet Take 1 (one) tablet by mouth as needed * hydroxychloroquine (Plaquenil) 200 MG tablet(Started 12/09/2023) Take 1.5 (one and one-half) tablets by mouth once daily * azaTHIOprine (Imuran) 50 MG tablet(Started 03/15/2024) Take 0.5 (one-half) tablet by mouth once daily * lamoTRIgine (LaMICtal) 200 MG tablet(Started 06/17/2024) Take 1 (one) tablet by mouth 2 times daily * alendronate (Fosamax) 70 MG tablet(Started 06/17/2024) Take 1 (one) tablet by mouth every 7 days before meal Take in morning with full glass of water on empty stomach and remain upright for 30 min 11 refills by 06/17/2025 * abatacept (Orencia) infusion 500 (five hundred) mg by Intravenous route every 30 days * blood glucose (Visible Measures Ultra) test strip(Started 07/27/2024) USE 1 STRIP TO CHECK GLUCOSE TWICE DAILY 11 refills by 07/27/2025 * SUMAtriptan (Imitrex) 100 MG tablet(Started 07/25/2024) Take 1 (one) tablet by mouth as needed for Migraine (take one with onset of headache, can repeat in2 hours if needed, maximum of 2 in 24 hours.) No more than 2 doses in 24 hours. 4 refills by 07/25/2025 * gabapentin (Neurontin) 100 MG capsule(Started 07/25/2024) Take 2 (two) capsules by mouth 3 times daily Reasons: Headache 5 refills by 07/25/2025 * ARIPiprazole (Abilify) 2 MG tablet(Started 07/25/2024) Take 1 (one) tablet by mouth every morning * latanoprost (Xalatan) 0.005 % ophthalmic solution(Started 07/28/2024) Instill 1 (one) drop into both eyes at bedtime 4 refills by 07/28/2025 * atorvastatin (Lipitor) 20 MG tablet(Started 08/05/2024) Take 1 (one) tablet by mouth at bedtime 3 refills by 08/05/2025 * fluticasone propionate (Flonase) 50 MCG/ACT nasal spray(Started 08/11/2024) [place] 2 (two) sprays into each nostril once daily 6 refills by 08/11/2025 * azelastine (Astelin) 0.1 % nasal spray(Started 08/11/2024) [place] 1 (one) spray into each nostril 2 times daily 3 refills by 08/11/2025 * primidone (Mysoline) 250 MG tablet(Started 08/18/2024) Take 1 tablet by mouth twice daily 3 refills by 08/18/2025 * clonazePAM (KlonoPIN) 0.5 MG tablet(Started 09/15/2024) Take 1 (one) tablet by mouth once daily 3 refills by 03/14/2025 * donepezil (Aricept) 10 MG tablet(Started 09/27/2024) Take 1 (one) tablet by mouth once daily 3 refills by 09/27/2025 * Blood Glucose Monitoring Suppl (ONE TOUCH ULTRA 2) w/Device KIT(Started 10/17/2024) Use 1 device as directed * polyethylene glycol (Gavilyte-C) 240 g solution(Started 10/25/2024) Drink half the prep at 5 pm the evening prior to the procedure. Finish the remaining prep at 4 am the morning of the procedure. * albuterol HFA (Proventil; Ventolin; Proair) 108 (90 Base) MCG/ACT inhaler (Started 10/07/2024) Inhale 2 (two) puffs by mouth every 4 hours as needed for Shortness of Breath or Wheezing * omeprazole (PriLOSEC) 40 MG capsule Take 1 (one) capsule by mouth daily before breakfast * Galcanezumab-gnlm (Emgality) 120 MG/ML auto-injector pen(Started 11/02/2024) Inject 1 mL subcutaneously every 30 days 11 refills by 11/02/2025 * foduesckwk-vfociijhfzfra-ftpyotru (Fioricet) 50-300-40 MG capsule(Started 11/02/2024) Take 1 (one) capsule by mouth every 4 hours as needed for Headache 5 refills by 05/01/2025 * polyethylene glycol 3350 (Miralax) 17 GM/SCOOP powder(Started 11/04/2024) Take a dose twice a day starting a week before your colonoscopy * magnesium citrate solution(Started 11/04/2024) Drink at 5pm 2 nights before your colonoscopy * bisacodyl EC (Dulcolax) 5 MG tablet(Started 11/04/2024) Take 4 tablets orally at noon 2 days before your colonoscopy. Take 4 tablets orally at noon the daybefore your colonoscopy * memantine (Namenda) 10 MG tablet(Started 12/13/2024) Take 1 (one) tablet by mouth at bedtime 11 refills by 12/13/2025 Active Problems Problem Noted Date Diagnosed Date [...] Memory impairment 11/14/2019 Bipolar disorder 07/08/2012 Immunizations * COVID - 19, HISTORIC VACCINE(Given 12/21/2020) * COVID PRISCA PRIMARY 18+YR(Given 12/18/2020) * COVID MODERNA 12+ yr 50mcg/0.5mL(Given 10/11/2023) * COVID MODERNA BIVALENT 12Y+ 50MCG/0.5ML(Given 10/14/2022) * Covid Moderna primary monovalent 12+ yr 0.5mL(Given 01/18/2022) * Covid Pfizer primary monovalent 12+ yr 0.3mL Purple cap(Given 08/06/2021) * FLU VACCINE TRI IIV3 SPLIT PF IM (FLUVIRIN)(Given 06/02/2012) * HEP B VACCINE, ADULT 3 DOSE(Given 09/25/2016, 07/30/2016) * INFLUENZA VACCINE, HIGH-DOSE, TRIV. (FLUZONE HIGH-DOSE TRIVALENT; 65Y+) (HD-IIV3)(Given 07/12/2015, 07/12/2014) * INFLUENZA VACCINE, QUADR. (AFLURIA, FLUZONE QUADRIVALENT; 6MO+) (IIV4)(Given 07/03/2022, 10/08/2021, 07/02/2020, 07/08/2019, 08/12/2017, 06/20/2016, 10/20/2013) * INFLUENZA VACCINE, QUADR. (FLUZONE; FLULAVAL; FLUARIX; AFLURIA QUADRIVALENT; 6MO+), 0.5 ML (IIV4)(Given 09/29/2023, 11/17/2018, 07/21/2018) * MMR VACCINE(Given 07/26/2018) * PNEUMOCOCCAL PPSV23(Given 07/08/2012) * PNEUMOCOCCAL PPV VACCINE(Given 05/16/2021, 2018) * Pneumococcal Pcv13 Conj(Given 07/02/2020) * TDAP, HISTORIC VACCINE(Given 03/08/2023, 06/17/2014) * Zoster Hzv Vacc Recombinant Inj Im(Given 10/15/2022, 01/06/2022, 05/16/2021) Social History Tobacco Use Types Packs/Day Years [...] Sex Assigned at Female 09/16/2024 2:41 PM LEAD SHOP OPERATOR Gender Identity Female 09/16/2024 2:41 PM LEAD SHOP OPERATOR Sexual Orientation Straight 09/16/2024 2: 41 PM LEAD SHOP OPERATOR Last Filed Vital Signs Vital Sign Reading Time Taken Comments Blood Pressure 114/82 12/08/2024 12:30 PM LEAD SHOP OPERATOR Pulse 59 12/08/2024 12:30 PM LEAD SHOP OPERATOR Temperature 36.6 C (97.8 F) 12/08/2024 10:30 AM LEAD SHOP OPERATOR Respiratory Rate 14 12/08/2024 12:30 PM LEAD SHOP OPERATOR Oxygen Saturation 96% 12/08/2024 12:30 PM LEAD SHOP OPERATOR Inhaled Oxygen Concentration - - Weight 66.9 kg (147 lb 8 oz) 12/08/2024 8:01 AM LEAD SHOP OPERATOR Height 167.6 cm (5' 6 ) 12/08/2024 8:01 AM LEAD SHOP OPERATOR Body Mass Index 23.81 12/08/2024 8:01 AM LEAD SHOP OPERATOR Medical Devices Implanted Type Area Channel Opener Outsoles Device Identifier Shelf Expiration Date Model / Serial / Lot Slnt Dura Duraseal Pg Trilysine Amine 5 Implanted:Qty: 1 on 03/17/2022 by Jackelyn Yang MD at [facility] Left: Cranial Rhytec 08/11/2023 [id number] / / [id number] [employer] [place] Hole Cover Sys Implanted:Qty: 1 on 03/17/2022 by Jackelyn Yang MD at [facility] Left: Cranial Pretty Simple 01/01/2024 6010 / / [id number] Directional Lead Implanted:Qty: 1 on 03/17/2022 by Shailesh North MD at [facility] Left: Cranial [employer] 09/25/2023 6172 / [id number] / Lead Extension Implanted:Qty: 1 on 03/24/2022 by Shailesh North MD at [facility] Left: Neck Pretty Simple 01/15/2024 [id number] / / [id number] Generator Implanted:Qty: 1 on 03/24/2022 by Shailesh North MD at [facility] Left: Chest Pretty Simple 11/19/2023 6662 / / [id number] [place] Spnl 140mm 6.35mm Ti Str Implanted:Qty: 1 on 08/29/2022 by Shailesh North MD at [facility] Right: Scalp [employer] 04/02/2024 6010 / / [employer] Inf[employer] Dbs System Implanted:Qty: 1 on 08/29/2022 by Joshua Gill MD at [facility] Right: Brain 03/19/2024 6172 / [id number] / Description:cost per Silva [employer] Infinity Dbs System Implanted:Qty: 1 on 08/29/2022 by Joshua Gill MD at [facility] Right: Chest Wall 04/23/2024 6373 / [id number] / Description:cost per silva Procedures * FL MYELOGRAM 2 OR MORE REGIONS(Performed 12/08/2024) Performed for Lumbar spine pain * CT LUMBAR POST MYELOGRAM(Performed 12/08/2024) Performed for Lumbar spine pain * CT CERVICAL POST MYELOGRAM(Performed 12/08/2024) Performed for Lumbar spine pain * XR SPINE ENTIRE 2 OR 3VW(Performed 11/23/2024) Performed for Lumbar spine pain * XR CERVICAL SPINE 2 OR 3VW(Performed 11/23/2024) Performed for Lumbar spine pain * XR LUMBAR SPINE 2 OR 3VW(Performed 11/23/2024) Performed for Lumbar spine pain * PATHOLOGY TISSUE(Performed 11/11/2024) Performed for Screen for colon cancer * ND COLOREC CANC SCRN,SCOPY NOT HI RISK(Performed 11/11/2024) Performed for Screen for colon cancer * ENDOSCOPY, COLON, SCREENING(Performed 11/11/2024) * GLUCOSE - POINT OF CARE(Performed 11/11/2024) * CALPROTECTIN FECAL(Performed 11/07/2024) Performed for Chronic diarrhea * CULTURE STOOL PANEL(Performed 11/07/2024) Performed for Chronic diarrhea * C DIFFICILE CYTOTOXIN(Performed 11/07/2024) Performed for Chronic diarrhea * PROC DEEP BRAIN STIMULATOR(Performed 11/03/2024) Performed for Intractable 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 * XR LUMBAR SPINE 4VW OR MORE(Performed 09/19/2024) Performed for Acute bilateral low back pain without sciatica * XR KNEE LEFT 4VW OR MORE(Performed 09/19/2024) Performed for Acute pain of left knee * PROC DEEP BRAIN STIMULATOR(Performed 09/01/2024) Performed for Benign essential tremor * ALLERGEN INTERPRETATION(Performed 08/17/2024) * ALLERGEN BIRCH IGE(Performed 08/17/2024) Performed for Chronic rhinitis, Allergic rhinitis, unspecified seasonality, unspecified trigger * ALLERGEN RESPIRATORY PNL REGION 8 ([place])(Performed 08/17/2024) Performed for Chronic rhinitis, Allergic rhinitis, unspecified seasonality, unspecified trigger * HENDRIX AUTO VISUAL FIELD EXTENDED(Performed 08/11/2024) Performed for Primary open angle glaucoma (POAG) of left eye, mild stage * ENDOSCOPY, COLON, DIAGNOSTIC(Performed 07/29/2024) * PATHOLOGY TISSUE(Performed 07/29/2024) Performed for Chronic diarrhea, PUD (peptic ulcer disease) * ND COLOREC CANC SCRN,SCOPY NOT HI RISK(Performed 07/29/2024) Performed for Chronic diarrhea, PUD (peptic ulcer disease) * ND ED EGD FLEX TRANSORAL DX(Performed 07/29/2024) Performed for Chronic diarrhea, PUD (peptic ulcer disease) * EGD(Performed 07/29/2024) * GLUCOSE - POINT OF CARE(Performed 07/29/2024) * FUNDUS PHOTO BOTH EYES(Performed 07/28/2024) Performed for Long-term use of Plaquenil * OPTIC NERVE ANALYSIS OCT(Performed 07/28/2024) Performed for Vision abnormalities * RETINAL ANALYSIS OCT(Performed 07/28/2024) Performed for Vision abnormalities * PROC DEEP BRAIN STIMULATOR(Performed 07/27/2024) Performed for Benign essential tremor * FERRITIN(Performed 07/20/2024) Performed for Chronic diarrhea, Intestinal malabsorption, unspecified type (HCC) * FOLATE(Performed 07/20/2024) Performed for Chronic diarrhea, Intestinal malabsorption, unspecified type (HCC) * IRON + TRANSFERRIN PANEL(Performed 07/20/2024) Performed for Chronic diarrhea, Intestinal malabsorption, unspecified type (HCC) * VITAMIN B12(Performed 07/20/2024) Performed for Chronic diarrhea, Intestinal malabsorption, unspecified type (HCC) * VITAMIN D 25-HYDROXY(Performed 07/20/2024) Performed for Chronic diarrhea, Intestinal malabsorption, unspecified type (HCC) * COMPREHENSIVE METABOLIC PANEL(Performed 07/20/2024) Performed for Chronic diarrhea, Intestinal malabsorption, unspecified type (HCC) * CBC W AUTO DIFFERENTIAL(Performed 07/20/2024) Performed for Chronic diarrhea, Intestinal malabsorption, unspecified type (HCC) * IGA BLOOD(Performed 07/20/2024) Performed for Chronic diarrhea, Intestinal malabsorption, unspecified type (HCC) * TISSUE TRANSGLUTAMINASE AB IGG(Performed 07/20/2024) Performed for Chronic diarrhea, Intestinal malabsorption, unspecified type (HCC) * TISSUE TRANSGLUTAMINASE AB IGA(Performed 07/20/2024) Performed for Chronic diarrhea, Intestinal malabsorption, unspecified type (HCC) * C-REACTIVE PROTEIN(Performed 07/20/2024) Performed for Chronic diarrhea, Intestinal malabsorption, unspecified type (HCC) * PROC DEEP BRAIN STIMULATOR(Performed 05/20/2024) Performed for Benign essential tremor * PROC DEEP BRAIN STIMULATOR(Performed 04/13/2024) Performed for Benign essential tremor * HEMOGLOBIN A1C - POINT OF CARE (AMB) [facility](Performed 04/04/2024) Performed for Type 2 diabetes mellitus with hyperglycemia, without long-term current use of insulin([facility]) * ND ANALYS BRN NPGT PRGRMG ADDL 15(Performed 01/13/2024) Performed for Tremor, essential * ND ANALYS BRN NPGT PRGRMG 15 MIN(Performed 01/13/2024) Performed for Tremor, essential * ND ANALYS BRN NPGT PRGRMG ADDL 15(Performed 12/11/2023) Performed for Tremor * ND ANALYS BRN NPGT PRGRMG 15 MIN(Performed 12/11/2023) Performed for Tremor * ND ANALYS BRN NPGT PRGRMG ADDL 15(Performed 08/05/2023) Performed for Benign essential tremor * ND ANALYS BRN NPGT PRGRMG 15 MIN(Performed 08/05/2023) Performed for Benign essential tremor * ND ANALYS BRN NPGT PRGRMG 15 MIN(Performed 03/05/2023) Performed for Benign essential tremor * ND ANALYS BRN NPGT PRGRMG ADDL 15(Performed 03/05/2023) Performed for Benign essential tremor * VITAMIN D 25-HYDROXY(Performed 02/05/2023) * BASIC METABOLIC PANEL (CALCIUM TOTAL)(Performed 02/05/2023) * CALCIUM URINE RANDOM(Performed 02/05/2023) * MICROALB/CREAT RATIO URINE RANDOM PANEL(Performed 02/05/2023) * HEMOGLOBIN A1C - POINT OF CARE (AMB) [facility](Performed 12/08/2022) Performed for Type 2 diabetes mellitus with hyperglycemia, without long-term current use of insulin([facility]) * ND ANALYS BRN NPGT PRGRMG ADDL 15(Performed 12/07/2022) Performed for Benign essential tremor * ND ANALYS BRN NPGT PRGRMG 15 MIN(Performed 12/07/2022) Performed for Benign essential tremor * ND ANALYS BRN NPGT PRGRMG ADDL 15(Performed 10/29/2022) Performed for Benign essential tremor * ND ANALYS BRN NPGT PRGRMG 15 MIN(Performed 10/29/2022) Performed for Benign essential tremor * ND ANALYS BRN NPGT PRGRMG ADDL 15(Performed 10/01/2022) Performed for Benign essential tremor * ND ANALYS BRN NPGT PRGRMG ADDL 15(Performed 10/01/2022) Performed for Benign essential tremor * ND ANALYS BRN NPGT PRGRMG 15 MIN(Performed 10/01/2022) Performed for Benign essential tremor * CARDIAC EKG ORDER(Performed 09/01/2022) * BASIC METABOLIC PANEL (CALCIUM TOTAL)(Performed 08/31/2022) * CBC W AUTO DIFFERENTIAL(Performed 08/31/2022) * GLUCOSE - POINT OF CARE(Performed 08/30/2022) * CT HEAD WO CONTRAST(Performed 08/30/2022) Performed for Benign essential tremor * GLUCOSE - POINT OF CARE(Performed 08/29/2022) * XR SKULL 3VW OR LESS(Performed 08/29/2022) Performed for Pre-op evaluation * XR CHEST 1VW PORTABLE(Performed 08/29/2022) Performed for Benign essential tremor * XR NECK SOFT TISSUE(Performed 08/29/2022) Performed for S/P deep brain stimulator placement * FL OARM SURGERY(Performed 08/29/2022) Performed for S/P deep brain stimulator placement * ENDOTRACHEAL TUBE NOTE(Performed 08/29/2022) * INSERTION CRANIAL NEUROSTIMULATOR LEAD/ELECTRODES(Performed 08/29/2022) Performed for Essential tremor * GLUCOSE - POINT OF CARE(Performed 08/29/2022) * TYPE + SCREEN PANEL(Performed 08/29/2022) Performed for Pre-op evaluation * PTT [facility](Performed 08/15/2022) Performed for Pre-op testing * PT-INR [facility](Performed 08/15/2022) Performed for Pre-op testing * CBC W AUTO DIFFERENTIAL(Performed 08/15/2022) Performed for Pre-op testing * BASIC METABOLIC PANEL (CALCIUM TOTAL)(Performed 08/15/2022) Performed for Pre-op testing * XR CHEST 2VW(Performed 08/15/2022) Performed for Pre-op testing * EKG 12-LEAD(Performed 08/15/2022) Performed for Pre-op testing * FOLATE(Performed 08/06/2022) Performed for Subjective memory complaints * VITAMIN B12(Performed 08/06/2022) Performed for Subjective memory complaints * TSH REFLEX FREE T4(Performed 08/06/2022) Performed for Subjective memory complaints * T4 FREE(Performed 08/06/2022) Performed for Subjective memory complaints * ND ANALYS BRN NPGT PRGRMG 15 MIN(Performed 06/17/2022) Performed for Benign essential tremor * ND ANALYS BRN NPGT PRGRMG ADDL 15(Performed 04/17/2022) Performed for Benign essential tremor * ND ANALYS BRN NPGT PRGRMG ADDL 15(Performed 04/17/2022) Performed for Benign essential tremor * ND ANALYS BRN NPGT PRGRMG 15 MIN(Performed 04/17/2022) Performed for Benign essential tremor * XR CHEST 1VW PORTABLE(Performed 03/24/2022) Performed for Benign essential tremor * XR NECK SOFT TISSUE(Performed 03/24/2022) Performed for Benign essential tremor * XR SKULL 4VW OR MORE(Performed 03/24/2022) Performed for Benign essential tremor * GLUCOSE - POINT OF CARE(Performed 03/24/2022) * INSERTION CRANIAL NEUROSTIMULATOR GENERATOR(Performed 03/24/2022) Performed for Essential tremor * ENDOTRACHEAL TUBE NOTE(Performed 03/24/2022) * GLUCOSE - POINT OF CARE(Performed 03/24/2022) * CARDIAC EKG ORDER(Performed 03/21/2022) * GLUCOSE - POINT OF CARE(Performed 03/19/2022) * CBC W AUTO DIFFERENTIAL(Performed 03/19/2022) Performed for Benign essential tremor * BASIC METABOLIC PANEL (CALCIUM TOTAL)(Performed 03/19/2022) Performed for Benign essential tremor * GLUCOSE - POINT OF CARE(Performed 03/18/2022) * GLUCOSE - POINT OF CARE(Performed 03/18/2022) * GLUCOSE - POINT OF CARE(Performed 03/18/2022) * GLUCOSE - POINT OF CARE(Performed 03/18/2022) * CT HEAD WO CONTRAST(Performed 03/18/2022) Performed for Benign essential tremor * CBC W AUTO DIFFERENTIAL(Performed 03/18/2022) Performed for Benign essential tremor * BASIC METABOLIC PANEL (CALCIUM TOTAL)(Performed 03/18/2022) Performed for Benign essential tremor * GLUCOSE - POINT OF CARE(Performed 03/17/2022) * GLUCOSE - POINT OF CARE(Performed 03/17/2022) * XR SKULL 3VW OR LESS(Performed 03/17/2022) Performed for Benign essential tremor * GLUCOSE - POINT OF CARE(Performed 03/17/2022) * FL OARM SURGERY(Performed 03/17/2022) Performed for Benign essential tremor * INSERTION CRANIAL NEUROSTIMULATOR LEAD/ELECTRODES(Performed 03/17/2022) Performed for Essential tremor * PERIPHERAL IV NOTE(Performed 03/17/2022) * BLOOD TYPE VERIFICATION(Performed 03/17/2022) * TYPE + SCREEN PANEL(Performed 03/17/2022) * GLUCOSE - POINT OF CARE(Performed 03/17/2022) * PTT [facility](Performed 03/12/2022) Performed for Pre-op testing * PT-INR [facility](Performed 03/12/2022) Performed for Pre-op testing * CBC W AUTO DIFFERENTIAL(Performed 03/12/2022) Performed for Pre-op testing * BASIC METABOLIC PANEL (CALCIUM TOTAL)(Performed 03/12/2022) Performed for Pre-op testing * URINALYSIS W/MICROSCOPIC REFLEX TO CULTURE(Performed 03/12/2022) Performed for Pre-op testing * XR CHEST 2VW(Performed 03/12/2022) Performed for Pre-op testing * XR FOOT RIGHT 3VW OR MORE(Performed 03/12/2022) Performed for Foreign body in left foot, sequela * EKG 12-LEAD(Performed 03/12/2022) Performed for Pre-op testing * CT HEAD WO CONTRAST(Performed 12/19/2021) Performed for Benign essential tremor * MRI BRAIN WWO CONTRAST(Performed 12/19/2021) Performed for Benign essential tremor * CREATININE - POCT INTERFACED(Performed 12/19/2021) Results * FL Myelogram 2 or More Regions (12/08/2024 10:27 AM LEAD SHOP OPERATOR) Anatomical Region Laterality Modality Spine Digital Radiogra phy 12/08/2024 1:17 PM LEAD SHOP OPERATOR Impressions 12/13/2024 12:15 PM LEAD SHOP OPERATOR IMPRESSION: 1.Successful lumbar puncture for cervical and [...] degenerative disc and joint disease as detailed bsjpj-wi-gbukz above, worse at L4-L5, as outlined. 2.Transitional anatomy as noted above. The report is dictated by Addi Arambula MD, (physical therapy resident) Attending Physician: Dr. Magdalena Blackmon Chief Of Harbor Patrol: Dr. Addi Arambula MD, (physical therapy resident) The procedure was performed by the: The graduate assistant athletic trainer, and the attending radiologist was present for [...] 12/13/2024 12:15 PM Narrative 12/13/2024 12:15 PM LEAD SHOP OPERATOR PROCEDURE: FL MYELOGRAM 2 OR MORE REGIONS, CT LUMBAR POST MYELOGRAM, CT CERVICAL POST MYELOGRAM DATE/TIME OF EXAM: 12/08/2024 10:34 AM CLINICAL INFORMATION: PROCEDURE: FL MYELOGRAM 2 OR MORE REGIONS, CT LUMBAR POST MYELOGRAM, CT CERVICAL POST MYELOGRAM, DATE/TIME OF EXAM: 12/08/2024 10:34 AM, LOCATION [facility] INDICATION: M54.50: Lumbar spine pain ADDITIONAL CLINICAL INFORMATION: Ordering Provider Reason For Exam: myelopathy (accession [id number]), chronic low back pain (accession [id number]) Technologist Note: None. Additional: None. EXAMINATION: 1.Lumbar [...] The patient was then transferred to the care center manager unit for further observation and 2 hours [...] no high-grade central canal stenosis. There is znwe-rp-fywdevrt facet osteoarthritis. There is mild bilateral neural foraminal stenosis. Procedure Note Magdalena Blackmon MD - 12/13/2024 PROCEDURE: FL MYELOGRAM 2 OR MORE REGIONS, CT LUMBAR POST MYELOGRAM, CT CERVICAL POST MYELOGRAM DATE/TIME OF EXAM: 12/08/2024 10:34 AM CLINICAL INFORMATION: PROCEDURE: FL MYELOGRAM 2 OR MORE REGIONS, CTLUMBAR POST MYELOGRAM, CT CERVICAL POST MYELOGRAM, DATE/TIME OF EXAM:12/08/2024 10:34 AM, LOCATION [facility] INDICATION: M54.50: Lumbar spine pain ADDITIONAL CLINICAL INFORMATION: Ordering Provider Reason For Exam: myelopathy (accession [id number]), chronic low back pain (accession [id number]) Technologist Note: None. Additional: None. EXAMINATION: 1.Lumbar [...] well. The patient wasthen transferred to the care center manager unit for further observation and 2hours of [...] island in the right aspect of the [id number] body. Vertebral bodies are normal in height [...] is no high-grade central canal stenosis. Thereis lptc-yi-nycdrytt facet osteoarthritis. There is mild bilateral neural [...] 1.Multilevel degenerative disc and joint disease as pnxexegorlfbj-fo-hljzr above, worse at L4-L5, as outlined. 2.Transitional anatomy as noted above. The report is dictated by Addi Arambula MD, (physical therapy resident) Attending Physician: Dr. Magdalena Blackmon Chief Of Harbor Patrol: Dr. Addi Arambula MD, (physical therapy resident) The procedure was performed by the: The graduate assistant athletic trainer, and the attending radiologist was present for allcritical and mariscal portions of the procedure, and was [facility] during the entire procedure. The attending radiologist performed the following procedural activities: Dr. Magdalena Gutierrez was there and supervised mariscal portions of the procedure, not scrubbed. Magdalena Gutierrez MD have personally reviewed and interpretedthis examination/study. > Interpreting Provider: Magdalena Blackmon MD on 12/13/2024 12:15 PM Cornelio Lima MD FLUOROSCOPY OR DERABLES * CT Lumbar Post Myelogram (12/08/2024 10:25 AM LEAD SHOP OPERATOR) Anatomical Region Laterality Modality Spine Computed Tomogra phy 12/08/2024 1:17 PM LEAD SHOP OPERATOR Impressions 12/13/2024 12:15 PM LEAD SHOP OPERATOR IMPRESSION: 1.Successful lumbar puncture for cervical and [...] degenerative disc and joint disease as detailed eezoh-kv-cskia above, worse at L4-L5, as outlined. 2.Transitional anatomy as noted above. The report is dictated by Addi Arambula MD, (physical therapy resident) Attending Physician: Dr. Magdalena Blackmon Chief Of Harbor Patrol: Dr. Addi Arambula MD, (physical therapy resident) The procedure was performed by the: The graduate assistant athletic trainer, and the attending radiologist was present for [...] 12/13/2024 12:15 PM Narrative 12/13/2024 12:15 PM LEAD SHOP OPERATOR PROCEDURE: FL MYELOGRAM 2 OR MORE REGIONS, CT LUMBAR POST MYELOGRAM, CT CERVICAL POST MYELOGRAM DATE/TIME OF EXAM: 12/08/2024 10:34 AM CLINICAL INFORMATION: PROCEDURE: FL MYELOGRAM 2 OR MORE REGIONS, CT LUMBAR POST MYELOGRAM, CT CERVICAL POST MYELOGRAM, DATE/TIME OF EXAM: 12/08/2024 10:34 AM, LOCATION [facility] INDICATION: M54.50: Lumbar spine pain ADDITIONAL CLINICAL INFORMATION: Ordering Provider Reason For Exam: myelopathy (accession [id number]), chronic low back pain (accession [id number]) Technologist Note: None. Additional: None. EXAMINATION: 1.Lumbar [...] The patient was then transferred to the care center manager unit for further observation and 2 hours [...] no high-grade central canal stenosis. There is fqlp-wi-zhbpkacd facet osteoarthritis. There is mild bilateral neural foraminal stenosis. Procedure Note Magdalena Blackmon MD - 12/13/2024 PROCEDURE: FL MYELOGRAM 2 OR MORE REGIONS, CT LUMBAR POST MYELOGRAM, CT CERVICAL POST MYELOGRAM DATE/TIME OF EXAM: 12/08/2024 10:34 AM CLINICAL INFORMATION: PROCEDURE: FL MYELOGRAM 2 OR MORE REGIONS, CTLUMBAR POST MYELOGRAM, CT CERVICAL POST MYELOGRAM, DATE/TIME OF EXAM:12/08/2024 10:34 AM, LOCATION [facility] INDICATION: M54.50: Lumbar spine pain ADDITIONAL CLINICAL INFORMATION: Ordering Provider Reason For Exam: myelopathy (accession [id number]), chronic low back pain (accession [id number]) Technologist Note: None. Additional: None. EXAMINATION: 1.Lumbar [...] well. The patient wasthen transferred to the care center manager unit for further observation and 2hours of [...] island in the right aspect of the G4giolmknmz body. Vertebral bodies are normal in height [...] is no high-grade central canal stenosis. Thereis uyuw-qh-mhqzkrcv facet osteoarthritis. There is mild bilateral neural [...] 1.Multilevel degenerative disc and joint disease as hfhrvqkliopyy-mx-lvpuo above, worse at L4-L5, as outlined. 2.Transitional anatomy as noted above. The report is dictated by Addi Arambula MD, (physical therapy resident) Attending Physician: Dr. Magdalena Blackmon Chief Of Harbor Patrol: Dr. Addi Arambula MD, (physical therapy resident) The procedure was performed by the: The graduate assistant athletic trainer, and the attending radiologist was present for allcritical and mariscal portions of the procedure, and was immediately available tofurnish services during the entire procedure. The attending radiologist performed the following procedural activities: Dr. Magdalena Gutierrez was there and supervised mariscal portions of the procedure, not scrubbed. Magdalena Gutierrez MD have personally reviewed and interpretedthis examination/study. > Interpreting Provider: Magdalena Blackmon MD on 12/13/2024 12:15 PM Cornelio Lima MD CT ORDERABLES * CT Cervical Post Myelogram (12/08/2024 10:25 AM LEAD SHOP OPERATOR) Anatomical Region Laterality Modality Spine Computed Tomogra phy 12/08/2024 1:17 PM LEAD SHOP OPERATOR Impressions 12/13/2024 12:15 PM LEAD SHOP OPERATOR IMPRESSION: 1.Successful lumbar puncture for cervical and [...] degenerative disc and joint disease as detailed jjwoa-og-mluvm above, worse at L4-L5, as outlined. 2.Transitional anatomy as noted above. The report is dictated by Addi Arambula MD, (physical therapy resident) Attending Physician: Dr. Magdalena Blackmon Chief Of Harbor Patrol: Dr. Addi Arambula MD, (physical therapy resident) The procedure was performed by the: The graduate assistant athletic trainer, and the attending radiologist was present for [...] 12/13/2024 12:15 PM Narrative 12/13/2024 12:15 PM LEAD SHOP OPERATOR PROCEDURE: FL MYELOGRAM 2 OR MORE REGIONS, CT LUMBAR POST MYELOGRAM, CT CERVICAL POST MYELOGRAM DATE/TIME OF EXAM: 12/08/2024 10:34 AM CLINICAL INFORMATION: PROCEDURE: FL MYELOGRAM 2 OR MORE REGIONS, CT LUMBAR POST MYELOGRAM, CT CERVICAL POST MYELOGRAM, DATE/TIME OF EXAM: 12/08/2024 10:34 AM, LOCATION [facility] INDICATION: M54.50: Lumbar spine pain ADDITIONAL CLINICAL INFORMATION: Ordering Provider Reason For Exam: myelopathy (accession [id number]), chronic low back pain (accession [id number]) Technologist Note: None. Additional: None. EXAMINATION: 1.Lumbar [...] The patient was then transferred to the care center manager unit for further observation and 2 hours [...] no high-grade central canal stenosis. There is eqrq-rc-apxarcvt facet osteoarthritis. There is mild bilateral neural foraminal stenosis. Procedure Note Magdalena Blackmon MD - 12/13/2024 PROCEDURE: FL MYELOGRAM 2 OR MORE REGIONS, CT LUMBAR POST MYELOGRAM, CT CERVICAL POST MYELOGRAM DATE/TIME OF EXAM: 12/08/2024 10:34 AM CLINICAL INFORMATION: PROCEDURE: FL MYELOGRAM 2 OR MORE REGIONS, CTLUMBAR POST MYELOGRAM, CT CERVICAL POST MYELOGRAM, DATE/TIME OF EXAM:12/08/2024 10:34 AM, LOCATION [facility] INDICATION: M54.50: Lumbar spine pain ADDITIONAL CLINICAL INFORMATION: Ordering Provider Reason For Exam: myelopathy (accession [id number]), chronic low back pain (accession [id number]) Technologist Note: None. Additional: None. EXAMINATION: 1.Lumbar [...] well. The patient wasthen transferred to the care center manager unit for further observation and 2hours of [...] island in the right aspect of the X0seosxtiji body. Vertebral bodies are normal in height [...] is no high-grade central canal stenosis. Thereis plaw-qn-salbccdr facet osteoarthritis. There is mild bilateral neural [...] 1.Multilevel degenerative disc and joint disease as uijfqofirkqjp-me-qtsai above, worse at L4-L5, as outlined. 2.Transitional anatomy as noted above. The report is dictated by Addi Arambula MD, (physical therapy resident) Attending Physician: Dr. Magdalena Blackmon Chief Of Harbor Patrol: Dr. Addi Arambula MD, (physical therapy resident) The procedure was performed by the: The graduate assistant athletic trainer, and the attending radiologist was present for allcritical and mariscal portions of the procedure, and was immediately available tofurnish services during the entire procedure. The attending radiologist performed the following procedural activities: IDr. Magdalena was there and supervised mariscal portions of the procedure, not scrubbed. IMagdalena MD have personally reviewed and interpretedthis examination/study. > Interpreting Provider: Magdalena Blackmon MD on 12/13/2024 12:15 PM Cornelio Lima MD CT ORDERABLES * XR Spine Entire 2 or 3Vw (11/23/2024 11:09 AM LEAD SHOP OPERATOR) Anatomical Region Laterality Modality Spine Radiographic Josephine ging 11/23/2024 11:3 1 AM LEAD SHOP OPERATOR Impressions 11/23/2024 11:34 AM LEAD SHOP OPERATOR IMPRESSION: Mild scoliosis. > Interpreting Provider: Baljinder Dunbar MD on 11/23/2024 11:34 AM Narrative 11/23/2024 11:34 AM LEAD SHOP OPERATOR PROCEDURE: XR SPINE ENTIRE 2 OR 3VW [...] and lumbar degenerative change. Procedure Note Baljinder Dunbar MD - 11/23/2024 PROCEDURE: XR SPINE ENTIRE [...] 10 degrees, a lower thoracic levo curve [id number] degrees, and a lumbar dextro curve measuring less than 10 degrees. The cervical lordosis is straightened. The thoracic kyphosis and lumbar lordosis are maintained. There is grade 1 anterolisthesis at L4-5. Thereis moderate cervical and mild thoracic and lumbar degenerative change. IMPRESSION: Mild scoliosis. > Interpreting Provider: Baljinder Dunbar MD on 11/23/2024 11:34 AM Cornelio Lima MD DIAGNOSTIC JOSEPHINE GING ORDERABLES * XR Cervical Spine 2 or 3Vw (11/23/2024 11:06 AM LEAD SHOP OPERATOR) Anatomical Region Laterality Modality Spine Radiographic Josephine ging 11/23/2024 11:2 9 AM LEAD SHOP OPERATOR Impressions 11/23/2024 11:31 AM LEAD SHOP OPERATOR IMPRESSION: Moderate cervical spondylosis. > Interpreting Provider: Baljinder Dunbar MD on 11/23/2024 11:31 AM Narrative 11/23/2024 11:31 AM LEAD SHOP OPERATOR PROCEDURE: XR CERVICAL SPINE 2 OR 3VW [...] thorax, neck, and head. Procedure Note Baljinder Dunbar MD - 11/23/2024 PROCEDURE: XR CERVICAL SPINE [...] Moderate cervical spondylosis. > Interpreting Provider: Baljinder Dunbar MD on 11/23/2024 11:31 AM Cornelio Lima MD DIAGNOSTIC JOSEPHINE GING ORDERABLES * XR Lumbar Spine 2 or 3Vw (11/23/2024 10:00 AM LEAD SHOP OPERATOR) Anatomical Region Laterality Modality Spine Computed Radiogr aphy 11/23/2024 10:3 8 AM LEAD SHOP OPERATOR Impressions 11/23/2024 10:39 AM LEAD SHOP OPERATOR IMPRESSION: Mild to moderate degenerative changes. > Interpreting Provider: Baljinder Dunbar MD on 11/23/2024 10:39 AM Narrative 11/23/2024 10:39 AM LEAD SHOP OPERATOR PROCEDURE: XR LUMBAR SPINE 2 OR 3VW [...] No fracture is seen. Procedure Note Baljinder Dunbar MD - 11/23/2024 PROCEDURE: XR LUMBAR SPINE [...] moderate degenerative changes. > Interpreting Provider: Baljinder Dunbar MD on 11/23/2024 10:39 AM Cornelio Lima MD DIAGNOSTIC JOSEPHINE GING ORDERABLES * PATHOLOGY TISSUE (11/11/2024 10:16 AM LEAD SHOP OPERATOR) Only the most recent of2 resultswithin the time period is included. Case Report Surgical Pathology Report Case: [id number] Authorizing Provider: Sixto Cornell MD Collected: 11/11/2024 10:16 AM Ordering Location: [facility] Received: 11/11/2024 10:58 AM Pathologist: Kenyatta Norris MD Specimens: A) - Polyp Ascending, ascending colon polyp B) - Polyp Descending, descending colon polyps 11/14/2024 3:20 PM [facility] Final Diagnosis Large intestine, ascending colon polyp, biopsy (A): - Tubular adenoma Large intestine, descending colon polyps, biopsy (B): - Tubular adenoma(s), fragmented 11/14/2024 3:20 PM [facility] Microscopic Description and Comment Microscopic examination substantiates the final diagnosis. 11/14/2024 3:20 PM [facility] Clinical History The patient is a 69-year-old woman who presents for high risk colon cancer surveillance (personal history of colonic polyps). Operative procedure/findings: Colonoscopy - 2 mm ascending colon polyp, 4 and 5 mm descending colon polyps, resected and retrieved 11/14/2024 3:20 PM [facility] Gross Description The requisition and [...] cassette labeled B1. RB 11/14/2024 3:20 PM [facility] Pathologist Location at [facility] 11/14/2024 3:20 PM [facility] Disclaimer The performance characteristics of all immunohistochemical and indirect immunofluorescence stains (if any) cited in this report were determined by the Histopathology Laboratory of [facility]. Some of these tests were developed [...] the attending (teaching) pathologist. 11/14/2024 3:20 PM [facility] Embedded Images 11/14/2024 3:20 PM [facility] Biopsy, NOS POLYP / Unknown 11/11/2024 1 0:16 AM LEAD SHOP OPERATOR 11/11/2024 10:58 AM LEAD SHOP OPERATOR Comment:Pre-op diagnosis: Screen for colon cancer [Z12.11] Biopsy, NOS POLYP / Unknown 11/11/2024 1 0:19 AM LEAD SHOP OPERATOR 11/11/2024 10:58 AM LEAD SHOP OPERATOR Comment:Pre-op diagnosis: Screen for colon cancer [Z12.11] Sixto Cornell MD LAB - PATHOLOGY/CYTO LOGY ORDERABLES Performing Organization Address City/State/[facility] Phone Number [facility] [address] [phone] * ENDOSCOPY, COLON, SCREENING (11/11/2024 9:52 AM LEAD SHOP OPERATOR) Report Endoscopy POC Endoscopy Department Report _ [...] bowel preparation was evaluated using the BBPS ([place] Bowel Preparation Scale) with scores of: Right [...] non-mariscal portions. Procedure Code(s): --- Professional --- 88909, Colonoscopy, flexible; with removal of tumor(s), polyp(s), or other lesion(s) by snare technique 38434, 59, Colonoscopy, flexible; with biopsy, single or multiple Diagnosis Code(s): --- Professional --- Z86.010, Personal history of colonic polyps D12.2, Benign neoplasm of ascending colon D12.4, Benign neoplasm of descending colon K57.30, Diverticulosis of large intestine without perforation or abscess without bleeding CPT copyright 2021 [employer]. All rights reserved. The codes documented in this report are preliminary and upon braille coder review may be revised to meet current compliance requirements. Sixto Cornell MD 11/11/2024 10:36:45 AM This report has been signed electronically. Note Initiated On: 11/11/2024 9:52 AM Number of Addenda: [address] [place] [address] [facility] 11/11/2024 9:52 AM LEAD SHOP OPERATOR Sixto Cornell MD GI PROCEDURE ORDERAB LES Performing Organization Address City/[facility] Co de Phone Number [facility] * GLUCOSE - POINT OF CARE (11/11/2024 9:19 AM LEAD SHOP OPERATOR) Only the most recent of16 resultswithin the time period is included. Pathologist [facility] Glucose WB/POC 99 70 - 99 mg/dL 11/11/2024 9:54 AM LEAD SHOP OPERATOR [facility] Specimen Type Venous 11/11/2024 9:54 AM LEAD SHOP OPERATOR [facility] Blood BLOOD SPECIMEN / Unknown 11/11/2024 9:19 AM LEAD SHOP OPERATOR 11/11/2024 9:54 AM LEAD SHOP OPERATOR Sixto Cornell MD LAB - POINT OF CARE ORDERABLES Performing Organization Address [facility] Co de Phone Number [facility] [address] [place] [address], [facility] [phone] * CALPROTECTIN FECAL (11/07/2024 3:52 PM LEAD SHOP OPERATOR) Pathologist [facility] Calprotectin Fecal 69 mcg/g [facility] Comment: Reference [...] suggested for borderline values. Test Performed at: [facility] [address] [place] [address] JARRELL CALDERON MD,PHD,EDGARDO Stool STOOL SPECIMEN / Unknown 11/07/2024 3:52 PM LEAD SHOP OPERATOR 11/08/2024 4:47 AM LEAD SHOP OPERATOR Yolanda Greer PERIPATOLOGIST-WINEMAKER LAB - CRISTINA DY FLUID ORDERABLES Performing Organization Address [facility] Co de Phone Number [address] [address] * CULTURE STOOL PANEL (11/07/2024 3:52 PM LEAD SHOP OPERATOR) Campylobacter Antigen [facility] Comment: CAMPYLOBACTER SPP. AG,EIA Micro Number: [id number] Test Status: Final Specimen Source: Stool Specimen Quality: Adequate Campy Ag Result: Not Detected Reference Range: Not Detected EIA [facility] Comment: SHIGA TOXINS, EIA W/RFL TO E.COLI O157 CULTURE Micro Number: [id number] Test Status: Final Specimen Source: Stool Specimen Quality: Adequate Shiga Toxin: Not Detected Reference Range: Not Detected Culture [facility] Comment: SALMONELLA AND SHIGELLA, CULTURE Micro Number: [id number] Test Status: Final Specimen Source: Stool Specimen Quality: Adequate Result: No Salmonella or Shigella isolated Test Performed at: [facility] [address] SAROJ FAUSTIN MD Stool STOOL SPECIMEN / Unknown 11/07/2024 3:52 PM LEAD SHOP OPERATOR 11/07/2024 11:51 PM LEAD SHOP OPERATOR Yolanda Greer PERIPATOLOGIST-WINEMAKER LAB - [place] CROBIOLOGY ORDERABLES Performing Organization Address [facility] de Phone Number [address] [address] * C DIFFICILE CYTOTOXIN (11/07/2024 3:51 PM LEAD SHOP OPERATOR) Cytotoxin Assay Stool NOT DETECTED [facility] Comment: [...] (GDH) with Reflex to PCR, order code 79753 or Clostridium difficile toxin B, Qualitative real time PCR, test code 79167 to be more sensitive and timely methods for the diagnosis of C. difficile colitis. For additional information, please refer to http://education.Investview/faq/OFV233 (This link is being provided for informational/ educational purposes only.) Test Performed at: [facility] [address] [place] [address] JARRELL CALDERON MD,PHD,EDGARDO Stool STOOL SPECIMEN / Unknown 11/07/2024 3:51 PM LEAD SHOP OPERATOR 11/08/2024 4:58 AM LEAD SHOP OPERATOR Yolanda Percy PERIPATOLOGIST-WINEMAKER LAB - [place] CROBIOLOGY ORDERABLES [facility] [address] [place] [address] * PROC DEEP BRAIN STIMULATOR (11/03/2024 2:08 PM LEAD SHOP OPERATOR) Narrative Moncho Salcedo APRN-CNP - 11/03/2024 2:08 PM LEAD SHOP OPERATOR Moncho Salcedo APRN-CNP 11/03/2024 4:00 PM Please see office notes for documentation- Thanks Moncho Salcedo PERIPATOLOGIST-WINEMAKER PROCEDURE/MINOR SURGICAL ORDERABLES * XR Knee Left 4Vw or More (09/19/2024 9:18 AM LEAD SHOP OPERATOR) Anatomical Region Laterality Modality Lower Extremity Digital Radiogra phy 09/19/2024 10:0 4 AM LEAD SHOP OPERATOR Impressions 09/19/2024 10:41 AM LEAD SHOP OPERATOR IMPRESSION: No acute fracture or dislocation identified. Report dictated by Arnoldo Walker MD (physical therapy resident). I, Baljinder Dunbar MD have personally reviewed and interpreted this examination/study. > Interpreting Provider: Baljinder Dunbar MD on 09/19/2024 10:41 AM Narrative 09/19/2024 10:41 AM LEAD SHOP OPERATOR PROCEDURE: XR KNEE LEFT 4VW OR MORE, DATE/TIME OF EXAM: 09/19/2024 9:19 AM, LOCATION [facility] INDICATION: M25.562: Acute pain of left knee ADDITIONAL CLINICAL INFORMATION: COMPARISON: None. FINDINGS: The osseous structures are intact and well aligned without acute fracture or dislocation. The knee joint space is preserved. No joint effusion is seen. Procedure Note Baljinder Dunbar MD - 09/19/2024 PROCEDURE: XR KNEE LEFT 4VW OR MORE, DATE/TIME OF EXAM: 09/19/2024 9:19 AM, LOCATION [facility] INDICATION: M25.562: Acute pain of left knee ADDITIONAL CLINICAL INFORMATION: COMPARISON: None. FINDINGS: The osseous structures are intact and well aligned without acutefracture or dislocation. The knee joint space is preserved. No joint effusion is seen. IMPRESSION: No acute fracture or dislocation identified. Report dictated by Arnoldo Walker MD (physical therapy resident). IBaljinder MD have personally reviewed and interpreted this examination/study. > Interpreting Provider: Baljinder Dunbar MD on 09/19/2024 10:41 AM Kerry Coffman DO DIAGNOSTIC IMAGING O RDERABLES * XR Lumbar Spine 4Vw or More (09/19/2024 9:18 AM LEAD SHOP OPERATOR) Anatomical Region Laterality Modality Spine Digital Radiogra phy 09/19/2024 10:2 2 AM LEAD SHOP OPERATOR Impressions 09/19/2024 3:01 PM LEAD SHOP OPERATOR IMPRESSION: Moderate dextroscoliosis. Grade 1 anterior spondylolisthesis of L4 relative to L5 seen in association with mild instability as discussed above. > Dictated by Kim Noonan MD, (physical therapy resident). ISergio MD have personally reviewed and interpreted this examination/study. > Interpreting Provider: Sergio Omalley MD on 09/19/2024 3:01 PM Narrative 09/19/2024 3:01 PM LEAD SHOP OPERATOR PROCEDURE: XR LUMBAR SPINE 4VW OR MORE, DATE/TIME OF EXAM: 09/19/2024 9:19 AM, LOCATION [facility] INDICATION: M54.50: Acute bilateral low back pain [...] MORE, DATE/TIME OF EXAM: 49:19 AM, LOCATION [facility] INDICATION: M54.50: Acute bilateral low back pain [...] above. > Dictated by Kim Noonan MD, (physical therapy resident). I, Sergio Omalley MD have personally reviewed and interpreted this examination/study. > Interpreting Provider: Sergio Omalley MD on 09/19/2024 3:01 PM Kerry Coffman DO DIAGNOSTIC IMAGING O RDERABLES * PROC DEEP BRAIN STIMULATOR (09/01/2024 8:53 AM LEAD SHOP OPERATOR) Narrative Rissa Vo MD - 09/01/2024 8:53 AM LEAD SHOP OPERATOR Rissa Vo MD 09/01/2024 8:53 AM Please see procedure notes Rissa Maldonado MD PROCEDURE/GODWIN R SURGICAL ORDERABLES * ALLERGEN BIRCH IGE (08/17/2024 1:51 PM LEAD SHOP OPERATOR) Allergen Birch <0.10 kU/L [facility] Class 0 [facility] Comment: Test Performed at: [facility] [address] [address] [place] [address] SAROJ FAUSTIN MD Blood BLOOD SPECIMEN / Unknown 08/17/2024 1:51 PM LEAD SHOP OPERATOR 08/17/2024 1:51 PM LEAD SHOP OPERATOR Papito Morales MD LAB - SEROLOGY ORDER RHONDA Performing Organization Address [facility] Co de Phone Number [facility] [address] [place] [address] * ALLERGEN INTERPRETATION (08/17/2024 1:51 PM LEAD SHOP OPERATOR) Interpretation See Below [facility] Comment: Specific Level of Allergen IGE Class kU/L Specific IGE Antibody ----- --------- 0 <0.10 Absent/Undetectable 0/1 0.10-0.34 Very Low Level 1 0.35-0.69 Low Level 2 0.70-3.49 Moderate Level 3 3.50-17.4 High Level 4 17.5-49.9 Very High Level 5 50-100 Very High Level 6 >100 Very High Level The clinical relevance of allergen results of 0.10-0.34 kU/L are undetermined and intended for specialist use. Allergens denoted with a include results using one or more analyte specific reagents. In those cases, the test was developed and its analytical performance characteristics have been determined by [employer]. It has not been cleared or approved by the U.S. Food and Drug Administration. This assay has been validated pursuant to the CLIA regulations and is used for clinical purposes. Test Performed at: [facility] [address] [place] [address] SAROJ FAUSTIN MD 08/17/2024 1:51 PM LEAD SHOP OPERATOR 08/17/2024 1:51 PM LEAD SHOP OPERATOR Papito Morales MD LAB - SEROLOGY ORDER RHONDA Performing Organization Address [facility] Co de Phone Number [facility] [address] [place] [address] * ALLERGEN RESPIRATORY PNL REGION 8 ([place]) (08/17/2024 1:51 PM LEAD SHOP OPERATOR) Allergen Dermatophagoides pteronyssinus <0.10 kU/L [facility] Class 0 [facility] Allergen Dermatophagoides farinae <0.10 kU/L [facility] Class 0 [facility] Allergen P. notatum <0.10 kU/L [facility] Class 0 [facility] Allergen C Herbarum <0.10 kU/L [facility] Class 0 [facility] Allergen Aspergillus fumigatus <0.10 kU/L [facility] Class 0 [facility] Allergen Alternaria alternata <0.10 kU/L [facility] Class 0 [facility] Allergen Cat Dander <0.10 kU/L [facility] Class 0 [facility] Allergen Dog Dander <0.10 kU/L [facility] Class 0 [facility] Allergen Cockroach Greenlandic <0.10 kU/L [facility] Class 0 [facility] Allergen Maple <0.10 kU/L [facility] Class 0 [facility] Allergen [place] <0.10 kU/L [facility] Class 0 [facility] Allergen Olds Tree <0.10 kU/L [facility] Class 0 [facility] Allergen [place] <0.10 kU/L [facility] Class 0 [facility] Allergen Mills Tree <0.10 kU/L [facility] Class 0 [facility] Allergen White Bassam <0.10 kU/L [facility] Class 0 [facility] Allergen [place] <0.10 kU/L [facility] Class 0 [facility] Allergen Elm <0.10 kU/L [facility] Class 0 [facility] Allergen Ennice/Pecan Tree <0.10 kU/L [facility] Class 0 [facility] Allergen White Monument <0.10 kU/L [facility] Class 0 [facility] Allergen Berm[place] Grass <0.10 kU/L [facility] Class 0 [facility] Allergen Paresh Grass <0.10 kU/L [facility] Class 0 [facility] Allergen Common Ragweed <0.10 kU/L [facility] Class 0 [facility] Allergen Rough Pigweed <0.10 kU/L [facility] Class 0 [facility] Allergen Malawian Thistle <0.10 kU/L [facility] Class 0 [facility] Allergen Rough Veliz Elder <0.10 kU/L [facility] Class 0 [facility] Allergen Mouse Urine Protein <0.10 kU/L [facility] Class 0 [facility] IgE 12 <PF=989 kU/L [facility] Comment: Test Performed at: [facility] [address] [place] [address] SAROJ FAUSTIN MD Blood BLOOD SPECIMEN / Unknown 08/17/2024 1:51 PM LEAD SHOP OPERATOR 08/17/2024 1:51 PM LEAD SHOP OPERATOR Papito Morales MD LAB - CHEMISTRY SOTERO PATEL [facility] [address] [place] [address] * HENDRIX AUTO VISUAL FIELD EXTENDED (08/11/2024 11:37 AM CDT) Anatomical Region Laterality Modality Head External-Camera Photography Percy Matute MD OPHTHALMOLOGY SCHED ORD W PACS * ENDOSCOPY, COLON, DIAGNOSTIC (07/29/2024 9:03 AM CDT) Report Endoscopy POC Endoscopy Department Report _ Patient Name: Sheri Shin Procedure Date: 07/29/2024 9:03 AM Date of : 1955 Classification: Outpatient Gender: Female Ethnicity: Not or Race: White _ Providers: Colt Red MD: Procedure: Colonoscopy Indications: Chronic diarrhea Medications: Propofol per Anesthesia Description of Procedure: After I obtained informed consent, the scope was passed under direct vision. Throughout the procedure, the patient's blood pressure, pulse, and oxygen saturations were monitored continuously. The PCF-H190DL was introduced through the anus and advanced to 4 cm into the ileum. The colonoscopy was performed without difficulty. The patient tolerated the procedure well. The quality of the bowel preparation was poor. The quality of the bowel preparation was evaluated using the BBPS ([place] Bowel Preparation Scale) with scores of: Right Colon = 1 (portion of mucosa seen, but other areas not well seen due to staining, residual stool and/or opaque liquid), Transverse Colon = 1 (portion of mucosa seen, but other areas not well seen due to staining, residual stool and/or opaque liquid) and Left Colon = 1 (portion of mucosa seen, but other areas not well seen due to staining, residual stool and/or opaque liquid). The total BBPS score equals 3. Findings: The terminal ileum appeared normal. A moderate amount of stool was found in the descending colon, in the transverse colon and in the ascending colon, precluding visualization. The colon (entire examined portion) appeared normal. Biopsies for histology were taken with a cold forceps from the entire colon for evaluation of microscopic colitis. Non-bleeding internal hemorrhoids were found during retroflexion. The hemorrhoids were Grade I (internal hemorrhoids that do not prolapse). Estimated Blood Loss: Estimated blood loss: none. Complications: No immediate complications. Impression: - Preparation of the colon was poor. - The examined portion of the ileum was normal. - Stool in the descending colon, in the transverse colon and in the ascending colon. - The entire examined colon is normal. Biopsied. - Non-bleeding internal hemorrhoids. Recommendation: - Repeat colonoscopy at next available appointment (within 3 months) for surveillance. Attending Participation: I personally performed the entire procedure. Procedure Code(s): --- Professional --- 25165, Colonoscopy, flexible; with biopsy, single or multiple Diagnosis Code(s): --- Professional --- K64.0, First degree hemorrhoids K52.9, Noninfective gastroenteritis and colitis, unspecified CPT copyright 2021 [employer]. All rights reserved. The codes documented in this report are preliminary and upon braille coder review may be revised to meet current compliance requirements. Colt Menchaca, 07/29/2024 9:27:51 AM Note Initiated On: 07/29/2024 9:03 AM Number of Addenda: 0 [facility] [address] [place] [address] [facility] PROVATION 07/29/2024 9:03 AM CDT Colt Menchaca MD GI PROCEDURE O RDERABLES [facility] PROVATION * EGD (07/29/2024 8:35 AM CDT) Report Endoscopy POC Endoscopy Department Report _ Patient Name: Sheri Shin Procedure Date: 07/29/2024 8:35 AM Date of : 1955 Classification: Outpatient Gender: Female Ethnicity: Not or Race: White _ Providers: Colt Menchaca Referring MD: Kerry Coffman (Referring MD) Procedure: Upper GI endoscopy Indications: Diarrhea Medications: Propofol per Anesthesia Description of Procedure: After obtaining informed consent, the endoscope was passed under direct vision. Throughout the procedure, the patient's blood pressure, pulse, and oxygen saturations were monitored continuously. The Endoscope was introduced through the mouth, and advanced to the second part of duodenum. The upper GI endoscopy was accomplished without difficulty. The patient tolerated the procedure well. Findings: The Z-line was regular and was found 39 cm from the incisors. The exam of the esophagus was otherwise normal. Diffuse mild inflammation characterized by congestion (edema), erythema, friability, granularity and mucus was found in the gastric body, in the gastric antrum and at the pylorus. Biopsies were taken with a cold forceps for Helicobacter pylori testing. No ulcers noted. The examined duodenum was normal. Biopsies for histology were taken with a cold forceps for evaluation of celiac disease. Estimated Blood Loss: Estimated blood loss: none. Complications: No immediate complications. Impression: - Z-line regular, 39 cm from the incisors. - Gastritis. Biopsied. - Normal examined duodenum. Biopsied. Recommendation: - Await pathology results. - Use Prilosec (omeprazole) 40 mg PO BID for 8 weeks. - Resume previous diet. Attending Participation: I personally performed the entire procedure. Procedure Code(s): --- Professional --- 90939, Esophagogastroduo denoscopy, flexible, transoral; with biopsy, single or multiple Diagnosis Code(s): --- Professional --- K29.70, Gastritis, unspecified, without bleeding R19.7, Diarrhea, unspecified CPT copyright 2021 [employer]. All rights reserved. The codes documented in this report are preliminary and upon braille coder review may be revised to meet current compliance requirements. Colt Menchaca, 07/29/2024 9:07:01 AM Note Initiated On: 07/29/2024 8:35 AM Number of Addenda: [id number] [place] [address] [employer]ATION 07/29/2024 8:35 AM CDT Colt Menchaca MD [facility] * FUNDUS PHOTO BOTH EYES (07/28/2024 12:40 PM CDT) Anatomical Region Laterality Modality Head External-Camera Photography Narrative 07/28/2024 3:47 PM CDT FAF Normal OU Percy Matute MD OPHTHALMOLOGY SCHED ORD W PACS * OPTIC NERVE ANALYSIS OCT (07/28/2024 12:40 PM CDT) Anatomical Region Laterality Modality Head External-Camera Photography Narrative 07/28/2024 3:47 PM CDT Images from the original result were not included. Percy Matute MD OPHTHALMOLOGY SCHED ORD W PACS * RETINAL ANALYSIS OCT (07/28/2024 11:28 AM CDT) Anatomical Region Laterality Modality Head External-Camera Photography Narrative 07/28/2024 12:25 PM CDT Images from the original result were not included. OD: OS: Poor signal strength Percy Matute MD OPHTHALMOLOGY SCHED ORD W PACS * PROC DEEP BRAIN STIMULATOR (07/27/2024 12:39 PM CDT) Narrative Rissa Vo MD - 07/27/2024 12:39 PM CDT Rissa Vo MD 07/27/2024 12:39 PM Please see procedure notes Rissa Maldonado MD PROCEDURE/GODWIN R SURGICAL ORDERABLES * TISSUE TRANSGLUTAMINASE AB IGG (07/20/2024 11:49 AM CDT) Tissue Transglutaminase Ab, IgG <0.82 0.00 - 4.99 FLU 07/22/2024 5:45 AM CDT [facility] ([facility]) Comment: INTERPRETIVE INFORMATION: Tissue Transglutaminase Ab, IgG In individuals with low or deficient IgA, testing for tissue transglutaminase (tTG) and deamidated Gliadin (DGP) antibodies of the IgG isotype is performed. Positive tTG and/or DGP IgG antibody results indicate celiac disease; however, small intestinal biopsy is required to establish a diagnosis due to the lower accuracy of these markers, especially in patients without IgA deficiency. Performed By: [employer] [address] [place] [address] [employer]atial [employer]ag[employer] Intelligence Analyst: Richard Guerin MD, PhD CLIA Number: [id number] Blood BLOOD SPECIMEN / Unknown Lab Venipuncture / Unknown 07/20/2024 11:49 AM CDT 07/20/2024 12:25 PM CDT Yolanda Greer PERIPATOLOGIST-WINEMAKER LAB - CH EMISTRY ORDERABLES [facility] ([facility]) [address] [place] [address] * TISSUE TRANSGLUTAMINASE AB IGA (07/20/2024 11:49 AM CDT) Tissue Transglutaminase (tTG) Ab, IgA 1.83 0.00 - 4.99 FLU 07/22/2024 5:45 AM CDT [facility] ([facility]) Comment: INTERPRETIVE INFORMATION: Tissue Transglutaminase (tTG) Antibody, IgA Presence of the tissue transglutaminase (tTG) IgA antibody is associated with gluten-sensitive enteropathies such as celiac disease and dermatitis herpetiformis. Individuals with positive results should be confirmed with small intestinal biopsy to establish celiac disease diagnosis. tTG IgA antibody concentrations greater than 50 FLU exhibits higher correlation with results of duodenal biopsies consistent with celiac disease. For antibody concentrations greater than or equal to 5 FLU but less than 10 FLU, additional testing for endomysial (ODALYS) IgA concentrations may improve the positive predictive value for disease. A decrease in tTG IgA antibody concentration after initiation of a gluten-free diet may indicate a response to therapy. Performed By: [employer] [address] [place] [address] Geospatial Imagery Intelligence Analyst: Richard uGerin MD, PhD CLIA Number: [id number] Blood BLOOD SPECIMEN / Unknown Lab Venipuncture / Unknown 07/20/2024 11:49 AM CDT 07/20/2024 12:27 PM CDT Yolanda Greer PERIPATOLOGIST-WINEMAKER LAB - ROLOGY ORDERABLES [facility] [employer] [facility]) [address] * C-REACTIVE PROTEIN (07/20/2024 11:49 AM CDT) C-Reactive Protein 0.5 <=0.5 mg/dL 07/20/2024 12:52 PM CDT [facility] Blood BLOOD SPECIMEN / Unknown Lab Venipuncture / Unknown 07/20/2024 11:49 AM CDT 07/20/2024 12:17 PM CDT Yolanda Greer APRN-WINEMAKER [employer] EMISTRY ORDERABLES [facility] [address] [place] [address], [facility] [phone] * VITAMIN D 25-HYDROXY (07/20/2024 11:49 AM CDT) Only the most recent of2 resultswithin the time period is included. Vitamin D, 25 Hydroxy 51.6 30.0 - 80.0 ng/mL 07/20/2024 1:18 PM CDT [facility] Comment: The recommendations for 25-Hydroxy Vitamin D clinical decision points are as follows: Deficient: <20.0 ng/mL Insufficient: 20.0 - 29.9 ng/mL Sufficient: 30.0 - 100.0 ng/mL Potential Toxicity: >100 ng/mL Reference: The Endocrine Society Clinical Practice Guidelines. 2011 If the 25-Hydroxy Vitamin D results are inconsitent with clinical evidence, it is recommended that follow-up testing using a method such as LC/MS/MS be performed to confirm the result. Blood BLOOD SPECIMEN / Unknown Lab Venipuncture / Unknown 07/20/2024 11:49 AM CDT 07/20/2024 12:17 PM CDT Yolanda Greer [facility] EMISTRY ORDERABLES Performing Organization Address City/[facility]/ZIP Co de Phone Number [facility] [address] [place] [address], [facility] [phone] * (ABNORMAL) CBC W/ DIFFERENTIAL (07/20/2024 11:49 AM CDT) Only the most recent of6 resultswithin the time period is included. WBC 4.0 4.0 - 10.7 x10E9/L 07/20/2024 12:24 PM CDT [facility] RBC Count 4.48 3.90 - 5.20 x10E12/L 07/20/2024 12:24 PM CDT [facility] Hemoglobin 13.9 11.9 - 15.8 g/dL 07/20/2024 12:24 PM CDT [facility] Hematocrit 42.5 34.8 - 46.1 % 07/20/2024 12:[address] [facility] MCV 94.9 80.0 - 98.0 fL 07/20/2024 12:[address] [facility] MCH 31.0 26.7 - 33.6 pg 07/20/2024 12:[address] [facility] MCHC 32.7 31.7 - 36.3 g/dL 07/20/2024 12:[address] [facility] RDW-CV 13.2 11.3 - 14.8 % 07/20/2024 12:[address] [facility] Platelet Count 225 150 - 420 x10E9/L 07/20/2024 12:[address] [facility] MPV 9.7 7.8 - 11.4 fL 07/20/2024 12:[address] [facility] Neutrophil % 68.4 41.0 - 74.0 % 07/20/2024 12:[address] [facility] Lymphocyte % 19.0 17.0 - 47.0 % 07/20/2024 12:[address] [facility] Monocyte % 9.0 3.0 - 11.0 % 07/20/2024 12:[address] [facility] Eosinophil % 1.8 0.0 - 7.0 % 07/20/2024 12:[address] [facility] Basophil % 1.3 0.0 - 1.6 % 07/20/2024 12:[address] [facility] Immature Granulocytes % 0.5 0.0 - 1.0 % 07/20/2024 12:[address] [facility] Neutrophil Absolute 2.74 1.60 - 7.50 x10E9/L 07/20/2024 12:[address] [facility] Lymphocyte Absolute 0.76(L) 1.00 - 4.40 x10E9/L 07/20/2024 12:[address] [facility] Monocyte Absolute 0.36 0.15 - 1.00 x10E9/L 07/20/2024 12:[address] [facility] Eosinophil Absolute 0.07 0.00 - 0.60 x10E9/L 07/20/2024 12:[address] [facility] Basophil Absolute 0.05 0.00 - 0.13 x10E9/L 07/20/2024 12:[address] [facility] Blood BLOOD SPECIMEN / Unknown Lab Venipuncture / Unknown 07/20/2024 11:49 AM CDT 07/20/2024 12:17 PM CDT Yolanda Greer PERIPATOLOGIST-WINEMAKER LAB - HE MATOLOGY ORDERABLES [facility] [address] [place] [address], [facility] [phone] * (ABNORMAL) COMPREHENSIVE METABOLIC PANEL (07/20/2024 11:49 AM CDT) BUN 10 7 - 26 mg/dL 07/20/2024 12:[address] [facility] Creatinine 0.80 0.56 - 0.96 mg/dL 07/20/2024 12:[address] [facility] Sodium 139 136 - 145 mmol/L 07/20/2024 12:[address] [facility] Potassium 4.3 3.5 - 4.5 mmol/L 07/20/2024 12:[address] [facility] Chloride 103 98 - 107 mmol/L 07/20/2024 12:[address] [facility] CO2 28 22 - 29 mmol/L 07/20/2024 12:[address] [facility] Glucose 165(H) 70 - 115 mg/dL 07/20/2024 12:[address] [facility] Calcium 9.8 8.4 - 10.2 mg/dL 07/20/2024 12:[address] [facility] Protein Total 7.1 6.0 - 8.3 g/dL 07/20/2024 12:[address] [facility] Albumin 4.2 3.4 - 5.0 g/dL 07/20/2024 12:[address] [facility] Bilirubin Total 0.2 0.2 - 1.2 mg/dL 07/20/2024 12:[address] [facility] Alkaline Phosphatase 124 40 - 150 U/L 07/20/2024 12:[address] [facility] ALT 16 5 - 55 U/L 07/20/2024 12:[address] [facility] AST 20 5 - 34 U/L 07/20/2024 12:[address] [facility] Anion Gap 8 6 - 16 07/20/2024 12:[address] [facility] BUN/Creatinine Ratio 13 7 - 23 07/20/2024 12:[address] [facility] Osmolality Calculated 291 275 - 295 mOsm/kg 07/20/2024 12:[address] [facility] Albumin/Globulin Ratio 1.4 1.1 - 2.3 07/20/2024 12:[address] [facility] eGFR by CKD-EPI 80(L) >=90 mL/min/1.7 3 m2 07/20/2024 12:[address] [facility] Blood BLOOD SPECIMEN / Unknown Lab Venipuncture / Unknown 07/20/2024 11:49 AM CDT 07/20/2024 12:17 PM CDT Yolanda Greer APRNARELY LAB - CH EMISTRY ORDERABLES Performing Organization Address City/[facility]/ZIP Co de Phone Number [address] [address], [facility] [phone] * FOLATE (07/20/2024 11:49 AM CDT) Only the most recent of2 resultswithin the time period is included. Folate 13.1 7.0 - 31.4 ng/mL 07/20/2024 1:18 PM T [facility] Blood BLOOD SPECIMEN / Unknown Lab Venipuncture / Unknown 07/20/2024 11:49 AM CDT 07/20/2024 12:17 PM CDT [facility]olanda Greer [facility] - CH EMISTRY ORDERABLES Performing Organization Address City/[facility]/ZIP Co de Phone Number [address] [address], [place] [phone] * (ABNORMAL) VITAMIN B12 (07/20/2024 11:49 AM CDT) Only the most recent of2 resultswithin the time period is included. Vitamin B12 1,090(H) 213 - 816 pg/mL 07/20/2024 1:18 PM CDT [facility] Blood BLOOD SPECIMEN / Unknown Lab Venipuncture / Unknown 07/20/2024 11:49 AM CDT 07/20/2024 12:17 PM CDT Yolanda Greer [facility] LAB - CH EMISTRY ORDERABLES [address] [address], [facility] [phone] * IRON + TRANSFERRIN PANEL [w/Transferrin Sat % + TIBC] (07/20/2024 11:49 AM CDT) Pathologist [facility] Iron 81 40 - 150 ug/dL 07/20/2024 12:40 PM CDT [facility] Transferrin 246 174 - 382 mg/dL 07/20/2024 12:40 PM CDT [facility] Transferrin Saturation % 26 16 - 50 % 07/20/2024 12:40 PM CDT [facility] TIBC Calculated 308 240 - 450 ug/dL 07/20/2024 12:40 PM CDT [facility] Blood BLOOD SPECIMEN / Unknown Lab Venipuncture / Unknown 07/20/2024 11:49 AM CDT 07/20/2024 12:24 PM CDT Yolanda Greer [facility] LAB - CH EMISTRY ORDERABLES [address] [address], [place] [phone] * IGA BLOOD (07/20/2024 11:49 AM CDT) IgA 147 61 - 356 mg/dL 07/20/2024 12:40 PM CDT [facility] Blood BLOOD SPECIMEN / Unknown Lab Venipuncture / Unknown 07/20/2024 11:49 AM CDT 07/20/2024 12:24 PM CDT Yolanda Greer [facility] - CH EMISTRY ORDERABLES Performing Organization Address City/[facility]/ZIP Co de Phone Number [address] [address], [facility] [phone] * FERRITIN (07/20/2024 11:49 AM CDT) Ferritin 65 13 - 204 ng/mL 07/20/2024 12:57 PM CDT [facility] Blood BLOOD SPECIMEN / Unknown Lab Venipuncture / Unknown 07/20/2024 11:49 AM CDT 07/20/2024 12:24 PM CDT Yolanda Greer [facility] - CH EMISTRY ORDERABLES Performing Organization Address City/[facility]/ZIP Co de Phone Number [address] [address], [facility] [phone] * PROC DEEP BRAIN STIMULATOR (05/20/2024 12:16 PM CDT) Narrative Rissa Vo MD - 05/20/2024 12:16 PM CDT Rissa Vo MD 05/20/2024 12:16 PM Please see procedure notes Rissa Maldonado MD PROCEDURE/GODWIN R SURGICAL ORDERABLES * PROC DEEP BRAIN STIMULATOR (04/13/2024 9:02 AM CDT) Narrative Rissa Vo MD - 04/13/2024 9:02 AM CDT Rissa Vo MD 04/13/2024 9:03 AM Please see procedure notes Rissa Maldonado MD PROCEDURE/GODWIN R SURGICAL ORDERABLES * HEMOGLOBIN A1C - POINT OF CARE (AMB) [facility] (04/04/2024 11:34 AM CDT) Only the most recent of2 resultswithin the time period is included. Hemoglobin A1c POCT 5.4 % CLAUDIA Sullivan [facility] BLOOD SPECIMEN / Unknown 04/04/2024 11:34 AM CDT Kerry Montemayorhbach DO LAB - POINT OF CARE ORDERABLES BELLA Sullivan [place] [address] [place] [address], [facility] [phone] * ND ANALYS BRN NPGT PRGRMG 15 MIN, ND ANALYS BRN NPGT PRGRMG ADDL 15 (01/13/2024 10:41 AM CDT) Narrative Rissa Vo MD - 01/13/2024 10:41 AM CDT Rissa Vo MD 01/13/2024 10:42 AM Please see procedure notes Rissa Maldonado MD PROCEDURE/GODWIN R SURGICAL ORDERABLES * ND ANALYS BRN NPGT PRGRMG 15 MIN, ND ANALYS BRN NPGT PRGRMG ADDL 15 (12/11/2023 3:30 PM LEAD SHOP OPERATOR) Narrative Moncho Salcedo APRN-WINEMAKER - 12/11/2023 3:30 PM LEAD SHOP OPERATOR Moncho Salcedo APRN-WINEMAKER 12/14/2023 9:26 AM Please see office notes for documentation Thanks Moncho Salcedo PERIPATOLOGIST-WINEMAKER PROCEDURE/MINOR SURGICAL ORDERABLES * ND ANALYS BRN NPGT PRGRMG 15 MIN, ND ANALYS BRN NPGT PRGRMG ADDL 15 (08/05/2023 1:24 PM CDT) Narrative Rissa Vo MD - 08/05/2023 1:24 PM CDT Rissa Vo MD 08/05/2023 1:25 PM Please see procedure notes Rissa Maldonado MD PROCEDURE/GODWIN R SURGICAL ORDERABLES * ND ANALYS BRN NPGT PRGRMG ADDL 15, ND ANALYS BRN NPGT PRGRMG 15 MIN (03/05/2023 2:10 PM CDT) Narrative Rissa Vo MD - 03/05/2023 2:10 PM CDT Rissa Vo MD 03/05/2023 2:10 PM Please see procedure notes Rissa Maldonado MD PROCEDURE/GODWIN R SURGICAL ORDERABLES * MICROALB/CREAT RATIO URINE RANDOM PANEL (02/05/2023 [...] within a diagnostic category. Test Performed at: [facility] [address] [place] [address] SAROJ FAUSTIN MD 02/05/2023 12:2 6 PM CDT 02/05/2023 12:27 PM CDT Marquise Adames MD LAB - URINE CHEMISTR Y ORDERABLES [facility] [address] [place] [address] * (ABNORMAL) BASIC METABOLIC PANEL (CALCIUM TOTAL) (02/05/2023 12:26 PM CDT) Only the most recent of6 resultswithin the time period is included. Glucose 93 65 - 99 mg/dL [facility] Comment: Fasting reference interval BUN 12 7 - 25 mg/dL [facility] Creatinine 0.78 0.50 - 1.05 mg/dL [facility] eGFR by Cystatin C 83 > OR = 60 mL/min/1 .73m2 [facility] Comment: The eGFR is based on the CKD-EPI 2020 equation. To calculate the new eGFR from a previous Creatinine or Cystatin C result, go to https://www.kidney.org/professionals/ kdoqi/gfr%5Fcalculator BUN/Creatinine Ratio NOT APPLICABLE 6 - 22 (calc) [facility] Sodium 130(L) 135 - 146 mmol/L [facility] Potassium 4.3 3.5 - 5.3 mmol/L [facility] Chloride 95(L) 98 - 110 mmol/L [facility] CO2 28 20 - 32 mmol/L [facility] Calcium 9.2 8.6 - 10.4 mg/dL [facility] Comment: Test Performed at: [facility] [address] SAROJ FAUSTIN MD 02/05/2023 12:2 6 PM CDT 02/05/2023 12:27 PM CDT Marquise Adames MD LAB - CHEMISTRY SOTERO PATEL Performing Organization Address City/[facility]/ZIP Co de Phone Number [address] [address] * CALCIUM URINE RANDOM (02/05/2023 12:26 PM CDT) [facility] Calcium Random Urine 5.1 mg/dL [facility] Comment: Reference Range Not established Test Performed at: [facility] [address] [place] [address] SAROJ FAUSTIN MD 02/05/2023 12:2 6 PM CDT 02/05/2023 12:27 PM CDT Marquise Adames MD LAB - URINE CHEMISTR Y ORDERABLES Performing Organization Address City/[facility]/ZIP Co de Phone Number [address] [address] * ND ANALYS BRN NPGT PRGRMG 15 MIN, ND ANALYS BRN NPGT PRGRMG ADDL 15 (12/07/2022 2:14 PM LEAD SHOP OPERATOR) Narrative Rissa Vo MD - 12/07/2022 2:14 PM LEAD SHOP OPERATOR Rissa Vo MD 12/07/2022 2:14 PM Please see procedure notes Rissa Maldonado MD PROCEDURE/GODWIN R SURGICAL ORDERABLES * ND ANALYS BRN NPGT PRGRMG 15 MIN, ND ANALYS BRN NPGT PRGRMG ADDL 15 (10/29/2022 1:08 PM LEAD SHOP OPERATOR) Narrative Rissa Vo MD - 10/29/2022 1:08 PM LEAD SHOP OPERATOR Rissa Vo MD 10/29/2022 1:11 PM Please see procedure notes Rissa Maldonado MD PROCEDURE/GODWIN R SURGICAL ORDERABLES * ND ANALYS BRN NPGT PRGRMG 15 MIN, ND ANALYS BRN NPGT PRGRMG ADDL 15, ND ANALYS BRN NPGT PRGRMG ADDL15 (10/01/2022 1:28 PM LEAD SHOP OPERATOR) Narrative Rissa Vo MD - 10/01/2022 1:28 PM LEAD SHOP OPERATOR Rissa Vo MD 10/01/2022 1:29 PM Please see procedure notes Rissa Maldonado MD PROCEDURE/GODWIN R SURGICAL ORDERABLES * CARDIAC EKG ORDER (09/01/2022 5:10 PM LEAD SHOP OPERATOR) Only the most recent of2 resultswithin the time period is included. Narrative 09/01/2022 5:10 PM LEAD SHOP OPERATOR Ordered by an unspecified provider. Scanned Document CARDIAC SERVICES ORD ERABLES * CT HEAD STEREOTACTIC (08/30/2022 4:02 AM LEAD SHOP OPERATOR) Only the most recent of3 resultswithin the time period is included. Anatomical Region Laterality Modality Head Computed Tomogra phy 08/30/2022 4:05 AM LEAD SHOP OPERATOR Impressions 08/30/2022 12:30 PM LEAD SHOP OPERATOR IMPRESSION: 1.Expected postoperative changes from placement of a right frontal approach deep brain stimulator lead. Report dictated by Yuko Redman DO (physical therapy resident). I, Shiloh Lofton MD have personally reviewed and interpreted this examination/study. > Interpreting Provider: Shiloh Lofton MD on 08/30/2022 12:30 PM Narrative 08/30/2022 12:30 PM LEAD SHOP OPERATOR PROCEDURE: CT HEAD WO CONTRAST, DATE/TIME OF EXAM: 08/30/2022 4:03 AM, LOCATION [facility] INDICATION: G25.0: Benign essential tremor ADDITIONAL CLINICAL INFORMATION: Ordering Provider Reason For Exam: post op COMPARISON: CT head without contrast dated 03/18/2022. TECHNIQUE: Noncontrast CT brain was performed utilizing standard protocol. CT dose reduction technique was used, including Automated Exposure Control. FINDINGS: Since the prior CT head dated 03/18/2022, there has been interval placement of a right frontal approach deep brain stimulator lead terminating in the expected location of the right subthalamic nucleus/inferior aspect of the thalamus. There is overlying expected postoperative changes along the right scalp soft tissue swelling and gas with skin martin present. Small amount of blood products are noted along the right frontal arden hole. A left frontal approach deep brain stimulator device is redemonstrated with lead again terminating in the expected location of the left subthalamic nucleus, slightly inferiorly by 1 to 2 mm compared compared to the right.. Streak artifact from the DBS device mildly limits evaluation. No evidence of intracranial hemorrhage within the limits of the study. The ventricles are of unchanged size, shape, and morphology. The basal cisterns are patent. No mass effect or midline shift is seen. The sharma-white matter differentiation appears normal within the limits of the study.. Other than a right cataract extraction, the orbits appear normal. There is mild paranasal sinus disease. The mastoid air cells are clear. Procedure Note Shiloh Lofton MD - 08/30/2022 PROCEDURE: CT HEAD WO CONTRAST, DATE/TIME OF EXAM: 08/30/2022 4:03 AM, LOCATION [facility] INDICATION: G25.0: Benign essential tremor ADDITIONAL CLINICAL INFORMATION: Ordering Provider Reason For Exam: post op COMPARISON: CT head without contrast dated 03/18/2022. TECHNIQUE: Noncontrast CT brain was performed utilizing standard protocol. CT dose reduction technique was used, including Automated ExposureControl. FINDINGS: Since the prior CT head dated 03/18/2022, there has been intervalplacement of a right frontal approach deep brain stimulator lead terminating inthe expected location of the right subthalamic nucleus/inferior aspect ofthe thalamus. There is overlying expected postoperative changes along theright scalp soft tissue swelling and gas with skin martin present. Smallamount of blood products are noted along the right frontal arden hole. A left frontal approach deep brain stimulator device is redemonstrated withlead again terminating in the expected location of the left subthalamicnucleus, slightly inferiorly by 1 to 2 mm compared compared to the right.. Streak artifact from the DBS device mildly limits evaluation. No evidence of intracranial hemorrhage within the limits of the study. The ventricles are of unchanged size, shape, and morphology. The basal cisterns are patent. No mass effect or midline shift is seen. The sharma-white matter differentiation appears normal within the limits ofthe study.. Other than a right cataract extraction, the orbits appearnormal. There is mild paranasal sinus disease. The mastoid air cells are clear. IMPRESSION: 1.Expected postoperative changes from placement of a right frontalapproach deep brain stimulator lead. Report dictated by Yuko Redman DO (physical therapy resident). IShiloh MD have personally reviewed and interpreted this examination/study. > Interpreting Provider: Shiloh Lofton MD on 08/30/2022 12:30 PM Shailesh North MD CT ORDERABLES * XR SKULL 3VW OR LESS (08/29/2022 3:28 PM LEAD SHOP OPERATOR) Only the most recent of2 resultswithin the time period is included. Anatomical Region Laterality Modality Head Radiographic Josephine ging 08/29/2022 3:33 PM LEAD SHOP OPERATOR Impressions 08/29/2022 4:03 PM LEAD SHOP OPERATOR IMPRESSION: Placement of a right deep brain stimulator lead via right frontoparietal arden hole. > Dictated by Harmeet Andersen DO (Wedding Decorator) Fang Gutierrez MD have personally reviewed and interpreted this examination/study. > Interpreting Provider: Fang Varela MD on 08/29/2022 4:03 PM Narrative 08/29/2022 4:03 PM LEAD SHOP OPERATOR PROCEDURE: XR SKULL 3VW OR LESS, DATE/TIME OF EXAM: 08/29/2022 3:30 PM, LOCATION [facility] INDICATION: Z01.818: Pre-op evaluation ADDITIONAL CLINICAL INFORMATION: Ordering Provider Reason For Exam: post op COMPARISON: Skull radiograph dated 03/17/2022. FINDINGS: Interval placement of a right deep brain stimulator lead via a right frontoparietal arden hole and is directed toward the subthalamic nucleus, with tip right of midline. Skin martin are present. Previously demonstrated left DBS lead is again seen. Leads extend inferiorly through the neck and are intact. Procedure Note Fang Varela MD - 08/29/2022 PROCEDURE: XR SKULL 3VW OR LESS, DATE/TIME OF EXAM: 08/29/2022 3:30PM, LOCATION [facility] INDICATION: Z01.818: Pre-op evaluation ADDITIONAL CLINICAL INFORMATION: Ordering Provider Reason For Exam: post op COMPARISON: Skull radiograph dated 03/17/2022. FINDINGS: Interval placement of a right deep brain stimulator lead via a right frontoparietal arden hole and is directed toward the subthalamic nucleus, with tip right of midline. Skin martin are present. Previously demonstrated left DBS lead is again seen. Leads extend inferiorlythrough the neck and are intact. IMPRESSION: Placement of a right deep brain stimulator lead via right frontoparietal arden hole. > Dictated by Harmeet Andersen DO (Wedding Decorator) IFang MD have personally reviewed and interpreted this examination/study. > Interpreting Provider: Fang Varela MD on 08/29/2022 4:03 PM Shailesh North MD DIAGNOSTIC IMAGING ORDERABLES * XR CHEST 1VW PORTABLE (08/29/2022 2:44 PM LEAD SHOP OPERATOR) Only the most recent of2 resultswithin the time period is included. Anatomical Region Laterality Modality Chest Radiographic Josephine ging 08/29/2022 3:08 PM LEAD SHOP OPERATOR Narrative 08/29/2022 3:22 PM LEAD SHOP OPERATOR PROCEDURE: XR CHEST 1VW PORTABLE, DATE/TIME OF EXAM: 08/29/2022 2:44 PM, LOCATION [facility] INDICATION: G25.0: Benign essential tremor ADDITIONAL CLINICAL INFORMATION: Ordering Provider Reason For Exam: post op COMPARISON: CXR 08/15/2022. TECHNIQUE: Portable frontal view of the chest. FINDINGS/IMPRESSION: The deep brain stimulator overlies lateral left hemithorax, with the leads traversing upwards in bilateral neck soft tissue areas. Lungs are hyperexpanded with flattened diaphragms. There is no focal consolidation, pleural effusion, or pneumothorax. The cardiomediastinal silhouette is normal. The visible bony thorax is intact. Report dictated by Chris Rizvi MD (physical therapy resident). Sravanthi Gutierrez MD have personally reviewed and interpreted this examination/study. > Interpreting Provider: Sravanthi Ellis MD on 08/29/2022 3:22 PM Procedure Note Karin Ellis MD - 08/29/2022 PROCEDURE: XR CHEST 1VW PORTABLE, DATE/TIME OF EXAM: 08/29/2022 2:44PM, LOCATION [facility] INDICATION: G25.0: Benign essential tremor ADDITIONAL CLINICAL INFORMATION: Ordering Provider Reason For Exam: post op COMPARISON: CXR 08/15/2022. TECHNIQUE: Portable frontal view of the chest. FINDINGS/IMPRESSION: The deep brain stimulator overlies lateral left hemithorax, with theleads traversing upwards in bilateral neck soft tissue areas. Lungs are hyperexpanded with flattened diaphragms. There is no focal consolidation, pleural effusion, or pneumothorax. The cardiomediastinal silhouette is normal. The visible bony thorax is intact. Report dictated by Chris Rizvi MD (physical therapy resident). Sravanthi Gutierrez MD have personally reviewed and interpreted this examination/study. > Interpreting Provider: Sravanthi Ellis MD on 08/29/2022 3:22 PM Shailesh North MD DIAGNOSTIC IMAGING ORDERABLES * XR NECK SOFT TISSUE (08/29/2022 2:43 PM LEAD SHOP OPERATOR) Only the most recent of2 resultswithin the time period is included. Anatomical Region Laterality Modality Head Radiographic Josephine ging 08/29/2022 3:25 PM LEAD SHOP OPERATOR Impressions 08/29/2022 3:39 PM LEAD SHOP OPERATOR IMPRESSION: Postoperative changes of right deep brain stimulator lead placement via right frontoparietal approach. > Dictated by Harmeet Andersen DO (Wedding Decorator) Fang Gutierrez MD have personally reviewed and interpreted this examination/study. > Interpreting Provider: Fang Varela MD on 08/29/2022 3:39 PM Narrative 08/29/2022 3:39 PM LEAD SHOP OPERATOR PROCEDURE: XR NECK SOFT TISSUE, DATE/TIME OF EXAM: 08/29/2022 2:44 PM, LOCATION [facility] INDICATION: Z96.89: S/P deep brain stimulator placement ADDITIONAL CLINICAL INFORMATION: Ordering Provider Reason For Exam: s/p DBS COMPARISON: Radiograph of the neck soft tissues dated 03/24/2022. FINDINGS: There are postoperative changes of deep brain stimulator device placement with a single lead coursing in the right neck soft tissue directed toward the subthalamic nucleus via right frontoparietal approach. Multiple skin martin are present in the right superior and lateral scalp. Left chest wall battery pack is partially imaged. Soft tissue gas in the right neck base is noted, likely postoperative. The previously placed left deep brain stimulator lead is unchanged. Procedure Note Fang Varela MD - 08/29/2022 PROCEDURE: XR NECK SOFT TISSUE, DATE/TIME OF EXAM: 08/29/2022 2:44 PM, LOCATION [facility] INDICATION: Z96.89: S/P deep brain stimulator placement ADDITIONAL CLINICAL INFORMATION: Ordering Provider Reason For Exam: s/p DBS COMPARISON: Radiograph of the neck soft tissues dated 03/24/2022. FINDINGS: There are postoperative changes of deep brain stimulator deviceplacement with a single lead coursing in the right neck soft tissue directedtoward the subthalamic nucleus via right frontoparietal approach. Multiple skin martin are present in the right superior and lateral scalp. Left chest wall battery pack is partially imaged. Soft tissue gas in the right neck base is noted, likely postoperative. The previously placed left deep brain stimulator lead is unchanged. IMPRESSION: Postoperative changes of right deep brain stimulator lead placement via right frontoparietal approach. > Dictated by Harmeet Andersen DO (Wedding Decorator) I, Fang Varela MD have personally reviewed and interpreted this examination/study. > Interpreting Provider: Fang Varela MD on 08/29/2022 3:39 PM Shailesh North MD DIAGNOSTIC IMAGING ORDERABLES * FL OARM SURGERY (08/29/2022 11:56 AM LEAD SHOP OPERATOR) Only the most recent of2 resultswithin the time period is included. Narrative [facility] - 08/29/2022 11:58 AM LEAD SHOP OPERATOR Fluoroscopy was used for this exam in the OR. Please see the Operative report. Shailesh North MD FLUOROSCOPY ORDERAB LES [facility] * ETT LINE PERFORMABLE (08/29/2022 11:47 AM LEAD SHOP OPERATOR) Narrative Yudi Santana APRN-CRNA - 08/29/2022 11:47 AM LEAD SHOP OPERATOR Yudi Santana APRN-CRNA 08/29/2022 11:57 AM Endotracheal Tube Placement: Patient Location: OR. Intubation Event Date/Time: 08/29/2022 11:47 AM Procedure: intubation ([id number]). Procedure Section: Sedation: under general anesthesia. Indications for Airway Management: anesthesia Procedure pretreatments used? No Induction: standard IV Patient Position: sniffing Mask Ventilation: easy. Blade Type: Daniel Blade Size: 2 Laryngoscopy View: grade 2 (partial cords) Intubation Adjuncts: cricoid pressure and stylet Tube: endotracheal tube Placement: oral Tube type: cuff - inflated Tube Size (MM): 7 Depth of Insertion (CM): 20 Measured From: lips Cuff volume (mL): 8 Cuff Inflated With: air Number of Attempts: 1. Placement Verified By: direct visualization, bilateral breath sounds, chest auscultation and CO2 monitor Tube secured with: adhesive tape. Dentition unchanged? Yes Difficult Airway? No. Procedure Start Time: 08/29/2022 11:47 AM. Staff Section Anesthesia Provider: Yudi Santana, BRYN, Performed the procedure Provider #1: Robyn Harding MD. Robyn Harding MD GENERAL ANESTHESIA O RDERABLES * TYPE + SCREEN PANEL (08/29/2022 6:19 AM LEAD SHOP OPERATOR) Only the most recent of2 resultswithin the time period is included. Antibody Screen NEG 7:15 AM LEAD SHOP OPERATOR [facility] ABO Rh A POS 08/29/2022 7:15 AM LEAD SHOP OPERATOR [facility] Blood Bank BLOOD SPECIMEN / Unknown Venipuncture / Unknown 08/29/2022 6:19 AM LEAD SHOP OPERATOR 08/29/2022 6:31 AM LEAD SHOP OPERATOR Nutressa A Sierra PERIPATOLOGIST-WINEMAKER LAB - BLOOD B ANK ORDERABLES [facility] [address] [place] [address], [facility] [phone] * PTT [facility] (08/15/2022 11:57 AM CDT) Only the most recent of2 resultswithin the time period is included. APTT 30.8 23.0 - 38.4 Seconds 08/15/2022 1:10 PM CDT [facility] Comment:Suggested therapeuti c range for full dose I.V. unfractionated heparin therapy for venous thromboembolism is 71 to 109 seconds. Blood BLOOD SPECIMEN / Unknown Lab Venipuncture / Unknown 08/15/2022 11:57 AM CDT 08/15/2022 12:42 PM CDT Shailesh North MD LAB - COAGULATION O NATAN Performing Organization Address City/[facility] Co de Phone Number [facility] [address] [place] [phone], [facility] [phone] * PT-INR [facility] (08/15/2022 11:57 AM CDT) Only the most recent of2 resultswithin the time period is included. PT 13.9 12.1 - 14.8 Seconds 08/15/2022 1:10 PM CDT [facility] INR 1.1 See Comment 08/15/2022 1:10 PM CDT [facility] Comment:The suggested therap eutic range for standard coumadin (warfarin) therapy is an INR of 2.0-3.0. For high-risk patients (Mechanical Mitral Valve Prosthesis, etc.), the suggested prophylactic therapeutic range is an INR of 2.5-3.5. Blood BLOOD SPECIMEN / Unknown Lab Venipuncture / Unknown 08/15/2022 11:57 AM CDT 08/15/2022 12:42 PM CDT Shailesh North MD LAB - COAGULATION O NATAN [facility] [address] [place] [address], [facility] [phone] * XR CHEST 2VW (08/15/2022 11:26 AM CDT) Only the most recent of2 resultswithin the time period is included. Anatomical Region Laterality Modality Chest Radiographic Josephine ging 08/15/2022 11:3 8 AM CDT Narrative 08/15/2022 4:38 PM CDT PROCEDURE: XR CHEST 2VW, DATE/TIME OF EXAM: 08/15/2022 11:27 AM, LOCATION [facility] INDICATION: Z01.818: Pre-op testing COMPARISON: Chest x-ray 03/24/2022 FINDINGS/IMPRESSION: Left-sided battery pack/degenerative device with the lead coursing superiorly into the soft tissues of the neck. Distal end of the lead is not seen There is no focal consolidation, pleural effusion, or pneumothorax. The cardiomediastinal silhouette is normal. The visible bony thorax is intact. Report dictated by Isaiah Keenan MD, MD (physical therapy resident). Kylie Gutierrez MD have personally reviewed and interpreted this examination/study. > Interpreting Provider: Kylie Horn MD on 08/15/2022 4:38 PM Procedure Note Kylie Horn MD - 08/15/2022 PROCEDURE: XR CHEST 2VW, DATE/TIME OF EXAM: 08/15/2022 11:27 AM, LOCATION [facility] INDICATION: Z01.818: Pre-op testing COMPARISON: Chest x-ray 03/24/2022 FINDINGS/IMPRESSION: Left-sided battery pack/degenerative device with the lead coursing superiorly into the soft tissues of the neck. Distal end of the lead isnot seen There is no focal consolidation, pleural effusion, or pneumothorax. The cardiomediastinal silhouette is normal. The visible bony thorax isintact. Report dictated by Isaiah Keenan MD, MD (physical therapy resident). Kylie Gutierrez MD have personally reviewed and interpreted this examination/study. > Interpreting Provider: Kylie Horn MD on 08/15/2022 4:38 PM Shailesh North MD DIAGNOSTIC IMAGING ORDERABLES * EKG 12-LEAD (08/15/2022 10:16 AM CDT) Only the most recent of2 resultswithin the time period is included. [facility] Ventricular Rate 74 BPM [facility] Atrial Rate 74 BPM [facility] P-R Interval 184 ms [facility] QRS Duration ms 72 ms [facility] Q-T Interval ms 378 ms [facility] QTC Calculation (Bezet) 419 ms [facility] Calculated P [place] 65 degrees [facility] Calculated R [place] 48 degrees [facility] Calculated T [place] 69 degrees [facility] Interpretation EKG NORMAL SINUS RHYTHM NONSPECIFIC ST & T WAVE CHANGES BORDERLINE ECG WHEN COMPARED WITH ECG OF 12-MAR-2022 14:09, NO SIGNIFICANT CHANGE WAS FOUND Confirmed by SUE FERNÁNDEZ, TRA ([id number]) on 08/16/2022 7:20:16 PM [facility] 08/15/2022 10:1 6 AM CDT 08/16/2022 7:20 PM CDT Shailesh North MD ECG ORDERABLES [facility] * TSH REFLEX FREE T4 (08/06/2022 9:41 AM CDT) [facility] TSH 3.348 0.350 - 4.940 uIU/mL 08/06/2022 12:01 PM CDT [facility] Blood BLOOD SPECIMEN / Unknown Lab Venipuncture / Unknown 08/06/2022 9:41 AM CDT 08/06/2022 9:55 AM CDT Dre Groves MD LAB - CHEMISTRY SOTERO PATEL [facility] [address] [place] [id number], [facility] [phone] * T4 FREE (08/06/2022 9:41 AM CDT) [facility] T4 Free 0.9 0.7 - 1.5 ng/dL 08/06/2022 12:01 PM CDT [facility] Blood BLOOD SPECIMEN / Unknown Lab Venipuncture / Unknown 08/06/2022 9:41 AM CDT 08/06/2022 9:55 AM CDT Dre Groves MD LAB - CHEMISTRY SOTERO PATEL [facility] Address City/State/ZIP Co de Phone Number [facility] [address] [place] [address], [facility] [phone] * ND ANALYS BRN NPGT PRGRMG 15 MIN (06/17/2022 9:32 PM CDT) Narrative Rissa Vo MD - 06/17/2022 9:32 PM CDT Rissa Vo MD 06/17/2022 9:33 PM Please see procedure notes Rissa Maldonado MD PROCEDURE/[facility] ORDERABLES * ND ANALYS BRN NPGT PRGRMG 15 MIN, ND ANALYS BRN NPGT PRGRMG ADDL 15, ND ANALYS BRN NPGT PRGRMG ADDL15 (04/17/2022 6:16 AM CDT) Narrative Rissa Vo MD - 04/17/2022 6:16 AM CDT Rissa Vo MD 04/17/2022 6:17 AM Please see procedure notes Rissa Maldonado MD PROCEDURE/[facility] ORDERABLES * XR SKULL 4VW OR MORE (03/24/2022 3:55 PM CDT) Anatomical Region Laterality Modality Head Radiographic Josephine ging 03/24/2022 4:01 PM CDT Impressions 03/24/2022 11:38 PM CDT IMPRESSION: Placement of a left deep brain stimulator a left parietal arden hole. Dictated by Facundo Sue MD (physical therapy resident). I, Dr. KYLIE HORN have personally reviewed and interpreted this examination/study. This report was electronically signed by KYLIE HORN on 03/24/2022 11:38 PM . Narrative 03/24/2022 11:38 PM CDT EXAMINATION: XR SKULL 4VW OR MORE HISTORY: G25.0: Benign essential tremor COMPARISON: No prior study is available for comparison. FINDINGS: A left deep brain stimulator lead traverses a left parietal arden hole and is directed toward the subthalamic nucleus, with tip left of midline. A small amount gas is seen along the left calvarium. Skin martin are present. Procedure Note Kylie Horn MD - 03/24/2022 EXAMINATION: XR SKULL 4VW OR MORE HISTORY: G25.0: Benign essential tremor COMPARISON: No prior study is available for comparison. FINDINGS: A left deep brain stimulator lead traverses a left parietal arden holeand is directed toward the subthalamic nucleus, with tip left of midline. A small amount gas is seen along the left calvarium. Skin martin are present. IMPRESSION: Placement of a left deep brain stimulator a left parietal arden hole. Dictated by Facundo Sue MD (physical therapy resident). I, Dr. KYLIE HRON have personally reviewed and interpreted this examination/study. This report was electronically signed by KYLIE HORN on 03/24/2022 11:38 PM . Shailesh North MD DIAGNOSTIC IMAGING ORDERABLES * ETT LINE PERFORMABLE (03/24/2022 2:01 PM CDT) Narrative Marcia Rodriguez APRN-CRNA - 03/24/2022 2:01 PM CDT Marcia Rodriguez APRN-CRNA 03/24/2022 2:05 PM Endotracheal Tube Placement: Patient Location: OR. Intubation Event Date/Time: 03/24/2022 1:41 PM Procedure: intubation ([id number]). Procedure Section: Sedation: under general anesthesia. Indications for Airway Management: anesthesia Procedure pretreatments used? No Induction: standard IV Patient Position: sniffing Mask Ventilation: easy with oral airway. Blade Type: Ernst Blade Size: 3 Laryngoscopy View: grade 2 (partial cords) Intubation Adjuncts: stylet Tube: endotracheal tube Placement: oral Tube type: cuff - inflated Tube Size (MM): 7 Depth of Insertion (CM): 22 Measured From: lips Cuff volume (mL): 7 Cuff Inflated With: air Number of Attempts: 1. Placement Verified By: direct visualization, bilateral breath sounds, chest auscultation and CO2 monitor CXR Findings: ETT in proper place. Tube secured with: adhesive tape and ETT stock. Dentition unchanged? Yes Difficult Airway? No. Procedure Start Time: 03/24/2022 1:41 PM. Staff Section Anesthesia Provider: Marcia Rodriguez APRN-CRNA, Performed the procedure Kenney Klein II, DO GENERAL ANESTH ESIA ORDERABLES * IV PLACEMENT PERFORMABLE (03/17/2022 11:36 AM CDT) Narrative Margarita Aggarwal APRN-CRNA - 03/17/2022 11:36 AM CDT Margarita Aggarwal APRN-CRNA 03/17/2022 11:37 AM Peripheral IV Line Placement: Procedure: IV start ([id number]). Procedure Section: Orientation: right Location: foot Catheter Gauge: 18 Number of Attempts: 1. Procedure Tolerance: tolerated well. Procedure Start Time: 03/17/2022 11:17 AM. Staff Section Anesthesia Provider: Margarita Aggarwal APRN-CRNA, Performed the procedure Provider #1: Kenney Klein II, DO. Kenney Klein II, DO GENERAL ANESTH ESIA ORDERABLES * BLOOD TYPE VERIFICATION (03/17/2022 7:32 AM CDT) ABO Rh A POS 03/17/2022 8:2 4 AM CDT [facility] Blood Bank BLOOD SPECIMEN / Unknown Lab Venipuncture / Unknown 03/17/2022 7:32 AM CDT 03/17/2022 7:44 AM CDT Provider Unknown LAB - BLOOD BANK ORD ERABLES [facility] [address] [place] [address], [facility] [phone] * URINALYSIS W/MICROSCOPIC REFLEX TO CULTURE (03/12/2022 3:30 PM CDT) Color UA Yellow Straw, Yellow 03/12/2022 4:25 PM CDT [facility] Clarity UA Clear Clear 03/12/2022 4:25 PM CDT [facility] Specific [place] UA 1.006 1.005 - 1.030 03/12/2022 4:[address] [facility] pH UA 6.0 5.0 - 8.0 pH 03/12/2022 4:[address] [facility] Protein UA Negative Negative 03/12/2022 4:[address] [facility] Glucose UA Negative Negative 03/12/2022 4:[address] [facility] Ketone UA Negative Negative 03/12/2022 4:25 PM T [facility] Bilirubin UA Negative Negative 03/12/2022 4:25 PM T [facility] Blood UA Negative Negative 03/12/2022 4:[address] [facility] Nitrite UA Negative Negative 03/12/2022 4:[address] [facility] Leukocyte Esterase Negative Negative 03/12/2022 4:[address] [facility] Urobilinogen UA Negative Negative mg/dL 03/12/2022 4:[address] [facility] RBC UA 0-2 None Seen, 0-2, 3-5 /HPF 03/12/2022 4:25 PM T [facility] WBC UA 0-5 None Seen, 0-5 /HPF 03/12/2022 4:[address] [facility] Squamous Epithelial Cells UA 0-2 None Seen, 0-2, 3-5 /HPF 03/12/2022 4:25 PM T [facility] Urine URINE SPECIMEN OBTAINED BY CLEAN CATCH PROCEDURE / Unknown Collection / Unknown 03/12/2022 3:30 PM CDT 03/12/2022 4:15 PM CDT Narrative [facility] - 03/12/2022 4:25 PM CDT Culture Not Indicated Shailesh North MD LAB - URINALYSIS OR DERABLES [facility] [address] [place] [phone], [facility] [phone] * XR FOOT RIGHT 3VW OR MORE (03/12/2022 3:25 PM CDT) Anatomical Region Laterality Modality Ankle / Foot Radiographic Josephine ging 03/12/2022 3:33 PM CDT Impressions 03/12/2022 3:35 PM CDT IMPRESSION: No acute osseous abnormality. This report was electronically signed by BALJINDER DUNBAR MD on 03/12/2022 3:35 PM . Narrative 03/12/2022 3:35 PM CDT Exam: XR FOOT RIGHT 3VW OR MORE History: S90.852S: Foreign body in left foot, sequela Comparison: None. Findings: There are chronic healed fractures of the second through fourth metatarsals with bony spurring and likely synostosis between the second and third. 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 The reported foreign body is not visualized. Procedure Note Baljinder Dunbar MD - 03/12/2022 Exam: XR FOOT RIGHT 3VW OR MORE History: S90.852S: Foreign body in left foot, sequela Comparison: None. Findings: There are chronic healed fractures of the second through fourth metatarsals with bony spurring and likely synostosis between the second and third. 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 The reported foreign body is not visualized. IMPRESSION: No acute osseous abnormality. This report was electronically signed by BALJINDER DUNBAR MD on03/12/2022 3:35 PM . Rissa Maldonado MD DIAGNOSTIC JOSEPHINE GING ORDERABLES * MRI BRAIN WWO CONTRAST (12/19/2021 7:34 AM LEAD SHOP OPERATOR) Anatomical Region Laterality Modality Head Magnetic Resonan ce 12/19/2021 11:1 7 AM LEAD SHOP OPERATOR Impressions 12/19/2021 11:42 AM LEAD SHOP OPERATOR IMPRESSION: No acute intracranial abnormality. I, Dr. GOYO DELACRUZ have personally reviewed and interpreted this examination/study. This report was electronically signed by GOYO DELACRUZ on 12/19/2021 11:42 AM . Narrative 12/19/2021 11:42 AM LEAD SHOP OPERATOR Contrast enhanced MRI of brain CLINICAL INFORMATION: G25.0: Benign essential tremor TECHNIQUE: MRI of the brain was performed with and without intravenous contrast according to standard protocol. 5 ml Gadavist was administered intravenously without adverse reaction. COMPARISON: None FINDINGS: There is no acute infarct or MR evidence of hemorrhage. There is no intracranial mass or mass effect. There is no hydrocephalus or extra-axial fluid collection. Flow voids of major intracranial vessels are noted. A few small foci of nonenhancing signal abnormality are seen in the supratentorial white matter, predominantly in the frontal lobes. No abnormal enhancement is noted. The paranasal sinuses and mastoid air cells are clear. The orbits are unremarkable. Significant degenerative changes are seen at all levels in the included upper cervical spine. Procedure Note Goyo Delacruz MD - 12/19/2021 Contrast enhanced MRI of brain CLINICAL INFORMATION: G25.0: Benign essential tremor TECHNIQUE: MRI of the brain was performed with and without intravenous contrast according to standard protocol. 5 ml Gadavist was administered intravenously without adverse reaction. COMPARISON: None FINDINGS: There is no acute infarct or MR evidence of hemorrhage. There is no intracranial mass or mass effect. There is no hydrocephalus orextra-axial fluid collection. Flow voids of major intracranial vessels are noted. A few small foci of nonenhancing signal abnormality are seen in the supratentorial white matter, predominantly in the frontal lobes. No abnormal enhancement is noted. The paranasal sinuses and mastoid air cells are clear. The orbits are unremarkable. Significant degenerative changes are seen at all levels in the included upper cervical spine. IMPRESSION: No acute intracranial abnormality. I, Dr. GOYO DELACRUZ have personally reviewed and interpreted this examination/study. This report was electronically signed by GOYO DELACRUZ on 12/19/2021 11:42 AM . Rissa Maldonado MD MR ORDERABLES * CREATININE - POCT INTERFACED (12/19/2021 6:40 AM LEAD SHOP OPERATOR) Creatinine POCT 0.73 0.30 - 1.30 mg/dL 12/19/2021 6:43 AM LEAD SHOP OPERATOR [facility] eGFR >90 >90 mL/min/1.7 3 m2 12/19/2021 6:43 AM LEAD SHOP OPERATOR [facility] Blood BLOOD SPECIMEN / Unknown 12/19/2021 6:40 AM LEAD SHOP OPERATOR 12/19/2021 6:43 AM LEAD SHOP OPERATOR Rissa Maldonado MD LAB - POINT OF CARE ORDERABLES [facility] [address] [place] [address], [facility] [phone] Care Teams Thermocouple Tester Relationship Specialty Start Date End Date Kerry Coffman DO [address] OF [facility] [place] [address] PCP - General Internal Medicine 12/15/23
--- NOTE | 2024-12-13 21:44 | ED.FALL ---
HPI - Fall General Chief Complaint: Fall Stated Complaint: fall, left arm pain Time Seen by Provider: 12/13/24 21:44 History of Present Illness HPI Narrative: Patient tripped and she landed on outstretched L hand earlier today; having pain to her wrist. Related Data Home Medications ?Medication ?Instructions ?Recorded ?Confirmed ?Last Taken ?Type atorvastatin 20 mg tablet 1 mg PO DAILY 05/01/21 10/07/24 Unknown History gabapentin 100 mg capsule 2 mg PO HS 05/01/21 10/07/24 Unknown History lamotrigine 200 mg tablet 1 mg PO BID 05/01/21 10/07/24 Unknown History primidone 50 mg tablet 4 mg PO BID 05/01/21 07/21/24 Unknown History propranolol 120 mg capsule,24 1 mg PO DAILY 05/01/21 10/07/24 Unknown History hr,extended release sertraline 100 mg tablet 1 mg PO DIRECTED 05/01/21 10/07/24 Unknown History clonazepam 0.5 mg tablet 0.5 mg PO DAILY 12/08/21 10/07/24 Unknown History loratadine 10 mg tablet 10 mg PO DAILY 12/08/21 07/21/24 Unknown History sumatriptan succinate 100 mg tablet 100 mg PO DAILY 12/08/21 10/07/24 Unknown History calcium 300 mg-D3 20 mcg-magnesium 1 tablet PO DAILY 02/03/23 10/07/24 Unknown History 25 mg-coppr 0.5 [id number] tablet (Caltrate-D3 Plus Minerals) cyclobenzaprine 10 mg tablet 10 mg PO .pm PRN Pain, Moderate 02/03/23 10/07/24 Unknown History omeprazole 20 mg capsule,delayed 20 mg PO DAILY 02/03/23 07/21/24 Unknown History release azathioprine 50 mg tablet 25 mg PO DAILY 04/18/24 10/07/24 Unknown History alendronate 70 mg tablet 70 mg PO DAILY 07/21/24 10/07/24 Unknown History aripiprazole 2 mg tablet 2 mg PO DAILY 07/21/24 10/07/24 Unknown History fluticasone propionate 50 2 spray intranasal DAILY 07/21/24 07/21/24 Unknown History mcg/actuation nasal spray,suspension peg 3350-electrolytes 236 See Rx Instructions .Route .COMPLEX 07/21/24 07/21/24 Unknown History gram-22.74 gram-6.74 gram-5.86 gram solution Allergies Allergy/AdvReac Type Severity Reaction Status Date / Time Penicillins Allergy Severe Swelling Verified 12/13/24 20:54 Sulfa (Sulfonamide Allergy Intermediate Rash Verified 12/13/24 20:54 Antibiotics) Review of Systems Review of Systems: All systems reviewed & are unremarkable except as noted in HPI and below PMFSH Past Medical History Medical History Restless leg syndrome Rheumatoid arthritis Arthritis Osteoporosis History of UTI Constipation Diarrhea High cholesterol History of falling Memory loss Chronic headaches Rib fracture Hx of migraines Diabetes Bipolar disorder Depression Anxiety Menopause History of alcohol abuse Sober for 9 years Bipolar depression Tremor hands HLD (hyperlipidemia) Surgical History Surgical History History of tonsillectomy History of hand surgery Left History of foot surgery Right x2 Family History Family History Father , Data 97 related to pneumonia Alzheimers disease Mother , Related to fall, Heart disease Unknown Hypertension Heart disease Diabetes mellitus High cholesterol Depression Arthritis Alcoholism Social History Social History Smoking packs per day: 2 Smoking cigarettes per day: 40.0 Years smoked: 24 Smoking pack-years: 48.00 Smoking status: Former smoker Tobacco type: cigarettes Second hand tobacco smoke exposure: No Smoking end date: 10/12/96 Alcohol intake: former 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od: Never True Current Housing: I Have Housing Concerned About Future Housing: No Difficulty Paying Gas/Electric Bills: No Difficulty Paying for Meds: No Currently Unemployed: No Education: Master's Degree or Higher Difficulty w/ Childcare or Family Care: No Living arrangements: with roommate(s) Additional occupation/education comments: Disable Gender identity (if verbalized by the patient): Female Sexual Orientation (if Verbalized by the Patient): Straight or Heterosexual Exam Narrative: EXAMINATION OF ORGAN SYSTEMS/BODY AREAS: Constitutional: Vital signs per nursing GENERAL:[No acute distress, non-toxic appearing.] HEAD: Normal with no signs of head trauma. EYES: EOMI, conjunctiva normal ENT: Hearing grossly intact LUNGS: Nonlabored breathing. HEART: [Regular rate and rhythm], normal cap refill to all digits ABD: [Soft], [nontender to palpation] EXT: Tenderness to the left wrist with some swelling SKIN: Bruising around left wrist NEURO: [Alert and oriented x 3. No gross focal sensory or strength deficits.] PSYCH: Normal affect Course Vital Signs Vital signs: Vital Signs Temperature 97.0 F L 12/13/24 20:56 Pulse Rate 76 12/13/24 20:56 Respiratory Rate 20 12/13/24 20:56 Blood Pressure 105/65 12/13/24 20:56 Pulse Oximetry 100 12/13/24 20:56 Oxygen Delivery Room Air 12/13/24 20:56 Temperature 97.0 F L 12/13/24 20:56 Pulse Rate 76 12/13/24 20:56 Respiratory Rate 20 12/13/24 20:56 Blood Pressure 105/65 12/13/24 20:56 Pulse Oximetry 100 12/13/24 20:56 Oxygen Delivery Room Air 12/13/24 20:56 Procedures Orthopedic Splinting/Casting Injury #1: Splinting/Casting Date: 12/13/24 Splinting/Casting Time: 21:48 Side: left Upper Extremity Injury Location: hand Upper Extremity Immobilizer: ulnar gutter Splint: customized in ED Pre-Procedure Neuro Vascular Exam: normal Post-Procedure Neuro Vascular Exam: normal MDM - Fall MDM Narrative Medical decision making narrative: 69-year-old female presents with fall on outstretched hand, no injuries anywhere else, she is neurovascularly intact with some tenderness and swelling around the wrist, x-ray obtained shows 4th metacarpal fracture without any obvious forearm fracture Patient informed of this, will be placed in ulnar gutter splint with follow-up to Hand surgery and return precautions. She is agreeable to this plan. Discharge Plan Discharge Clinical Impression: Metacarpal bone fracture Patient Disposition: Home, Self-Care Condition: Stable Instructions: Boxer Fracture (ED) Additional Instructions: Please ice and elevate the area, try to keep the splint on, follow-up with the hand surgeon. You can always return to the emergency room for any further issues. Patient Language: Ukrainian Prescriptions: No Action azathioprine 50 mg tablet 25 mg PO DAILY alendronate 70 mg tablet 70 mg PO DAILY fluticasone propionate 50 mcg/actuation spray,suspension 2 spray INTRANASAL DAILY aripiprazole 2 mg tablet 2 mg PO DAILY peg 3350-electrolytes 236-22.74-6.74 -5.86 gram recon soln See Rx Instructions .ROUTE .COMPLEX Rx Instructions: Rx primidone 50 mg tablet 4 mg PO BID atorvastatin 20 mg tablet 1 mg PO DAILY lamotrigine 200 mg tablet 1 mg PO BID sertraline 100 mg tablet 1 mg PO DIRECTED gabapentin 100 mg capsule 2 mg PO HS propranolol 120 mg capsule,extended release 24 hr 1 mg PO DAILY sumatriptan succinate 100 mg tablet 100 mg PO DAILY loratadine 10 mg tablet 10 mg PO DAILY clonazepam 0.5 mg tablet 0.5 mg PO DAILY azithromycin 250 mg tablet See Rx Instructions .ROUTE .COMPLEX Qty: 6 0RF Rx Instructions: For 250 mg dose pack: take 500 mg today (day 1), then 250 mg for 4 days (days 2-5) prednisone 20 mg tablet 40 mg PO DAILY 5 Days Qty: 10 0RF albuterol sulfate 90 mcg/actuation HFA aerosol inhaler 2 puff inhalation Q4-6H PRN (Reason: shortness of breath or wheezing) 30 Days Qty: 8.5 0RF Caltrate-D3 Plus Minerals 300 mg-800 unit -25 mg-0.5 mg tablet 1 tablet PO DAILY cyclobenzaprine 10 mg tablet 10 mg PO .pm PRN (Reason: Pain, Moderate) omeprazole 20 mg capsule,delayed release(DR/EC) 20 mg PO DAILY Follow-up/Referrals: Austin Limon MD [Physician] - 2 Days PHYSICIAN,LEGAL RESEARCHER [Primary Care Provider] -
--- OUTSIDE RECORDS SUMMARY | 2024-12-13 22:37 | XMS_ITS | Encounter Summary ---
Author Organization [facility] Address [address] [place] [address] Care Team Providers Care Billet Examiner Name Role Phone Joan Robins MD Primary Care Provider Kerry Coffman DO Primary Care Provider [phone] Encounter Details Date Type Department Care Team (Late st Contact Info) Description 12/18/2021 Telephone [facility] [address] [place], [place] [phone] Rissa Vo MD [address] [place] [address] Social History Tobacco Use Types Packs/Day Years Used Date Smoking Tobacco: Former Smokeless Tobacco: Never Alcohol Use Standard Drinks/Week Comments Never 0 (1 standard drink = 0.6 oz pur e alcohol) Sex and Gender Information Value Date Recorded Sex Assigned at Female 09/16/2024 2:41 PM SALES REP Gender Identity Female 09/16/2024 2:41 PM SALES REP Sexual Orientation Straight 09/16/2024 2: 41 PM SALES REP COVID-19 Exposure Response Date Recorded In the last month, have you been in contact with someone who was confirmed or suspected to have Coronavirus / COVID-19? No / Unsure 12/19/2021 5:58 AM SALES REP documented as of this encounter Patient Instructions * Patient Instructions* Donny Elliott - 12/18/2021 6:58 AM SALES REP Pt was bumped from 03/17/2022 DBN appt. [facility] does not schedule for these appt types. Please reschedule from the bump list. S REP documented in this encounter Plan of Treatment Upcoming Encounters Date Type Department Care Team (Late st Contact Info) Description 12/15/2024 2:20 PM SALES REP Office Visit [facility] - Endocrinology [address] [place] [phone] Marquise Adames MD [address] [place] [address] 2L [place] [address] 01/04/2025 9:15 AM CDT Office Visit [facility] - Orthopedics [address] [place] [phone] Cornelio Lima MD [address] [place] [address] 01/25/2025 10:30 AM CDT Office Visit [facility] - GI [address] [place] [phone] Yolanda Greer, RONEL-HUMID SYSTEM OPERATOR [address] [place] [phone] 02/09/2025 11:15 AM CDT Office Visit [facility] - Ophthalmology [address] [place] [phone] Percy Matute MD [address] [place] [address] [place] [phone] 02/09/2025 4:00 PM CDT Office Visit [facility] - Allergy [address] [place] [phone] Papito Morales MD [address] [place] [address] 2L DIV OF ALLERGY/[place] [address] 03/02/2025 1:00 PM CDT Office Visit [facility] - Neurology [address] [place] [address], [place] [address] Moncho Salcedo, PANELBEATER-HUMID SYSTEM OPERATOR [address] [place] [address] 1L [place] [phone] 03/20/2025 11:00 AM CDT Office Visit [facility] - Internal Med [address] [place] [address], [place] [address] Kerry Coffman DO [address] [place] [address] 2L DIV [place] [address] 04/13/2025 3:00 PM CDT Office Visit [facility] - Allergy [address] [place] [address], [place] [address] Papito Morales MD [address] [place] [address] 2L DIV OF ALLERGY/[place] [address] documented as of this encounter Visit Diagnoses Not on filedocumented in this encounter Additional Health Concerns Infection Onset Date Last Indicated Resolved Time CDIFF Under Investigation 07/20/2024 07/20/2024 4:33 AM CDT CDIFF Under Investigation 10/26/2024 11/07/2024 4:33 AM SALES REP CDIFF Under Investigation 11/07/2024 11/07/2024 5:38 PM SALES REP documented as of this encounter Care Teams Billet Examiner Relationship Specialty Start Date End Date Joan Robins MD [address] [place], [place] [phone] PCP - General 02/14/19 12/14/23 Kerry Coffman DO [address] [facility] [address] [facility] OF [place] [address] PCP - General Internal Medicine 12/15/23 documented as of this encounter
--- OUTSIDE RECORDS SUMMARY | 2024-12-13 22:37 | XMS_ITS | Encounter Summary ---
Author Organization [facility] Address [address] [place] [address] Care Team Providers Care Tool Adjuster Name Role Phone Pulpotio BareasKerry reddy Primary Care Provider [phone] Encounter Details Date Type Department Care Team (Late st Contact Info) Description 12/13/2024 Orders Only [facility] - Neurology [address] [facility] [place] [address] Moncho Salcedo, SALES AND LEASING AGENT-UTILITY DRIVER [address] [place] [address] [place] [phone] Cognitive decline Social History Tobacco Use Types [...] Sex Assigned at Female 09/16/2024 2:41 PM TOASTER OPERATOR Gender Identity Female 09/16/2024 2:41 PM TOASTER OPERATOR Sexual Orientation Straight 09/16/2024 2: 41 PM TOASTER OPERATOR documented as of this encounter Functional Status [...] st Contact Info) Description 12/15/2024 2:20 PM TOASTER OPERATOR Office Visit [facility] - Endocrinology [address] [place] [phone] Marquise Adames MD [address] [place] [address] [place] [address] 01/04/2025 9:15 AM CDT Office Visit [facility] - Orthopedics [address] [place] [phone] Cornelio Lima MD [facility] [place] [address] 01/25/2025 10:30 AM CDT Office Visit [facility] - GI [address] [place] [phone] Yolanda Greer, SALES AND LEASING AGENT-UTILITY DRIVER [address] [place] [phone] 02/09/2025 11:15 AM CDT Office Visit [facility] - Ophthalmology [address] [place] [phone] Percy Matute MD [address] [place] [address] [place] [phone] 02/09/2025 4:00 PM CDT Office Visit [facility] - Allergy [address] [place] [address], [place] [address] Papito Morales MD [address] [place] [address] 2L DIV OF ALLERGY/[place] [address] 03/02/2025 1:00 PM CDT Office Visit [facility] - Neurology [address] [place] [address], [place] [address] Denisse Lisandrokamhernan, SALES AND LEASING AGENT-UTILITY DRIVER [address] [place] [address] 1L [place] [phone] 03/20/2025 11:00 AM CDT Office Visit [facility] - Internal Med [address] [place] [phone] Kerry Coffman DO [address] [place] [address] 2L DIV OF [place] [address] 04/13/2025 3:00 PM CDT Office Visit [facility] - Allergy [address] [place] [phone] Papito Morales MD [address] [place] [address] 2L DIV [place]ERGY/[place] [address] documented as of this encounter Goals Goal Patient Goal Type Associated Problems Recent Progress Patient-Stated? Author Medication Management General On track( 025 10:42 AM TOASTER OPERATOR) Marion Scott, RN Note: Expected end date: ongoing Interventions: Take all medications as prescribed documented as of this encounter Visit Diagnoses Diagnosis Cognitive decline- Primary Unspecified persistent mental disorders due to conditions classified elsewhere documented in this encounter Care Teams Tool Adjuster Relationship Specialty Start Date End Date Kerry Coffman DO [facility] [address] OF [place] [address] PCP - General Internal Medicine 12/15/23 documented as of this encounter
--- OUTSIDE RECORDS SUMMARY | 2024-12-13 22:37 | XMS_ITS | Continuity of Care Document ---
Author Organization [facility] Address [address] [place] [address] Phone Care Team Providers Care Director Technical Name Role Phone Sandie Briggs MD Unavailable [...] Encounter [facility], [address], [place], [place], [id number] , [place] tel: [phone] [facility] No Information [address], [place], [place], [id number], [place]. [phone] OFFICE/OUTPATI ENT VISIT, EST [facility], [address], [place], [place], [id number] , [place] tel: [phone] [facility] medication refill (chief complaint) Bipolar disorderHigh risk medication use 3 No Information [facility], [address], [place], [place], [id number] , [place] tel: [phone] Dental Soul[facility] Velasquez Dental examination 2 No Information OFFICE OUTPT EST 25 MIN [facility], [address], [place], [place], [id number] , [place] tel: [phone] [facility] referrals (chief complaint)b ipolar disorder (chief complaint) Bipolar disorderAlcohol abuseRoutine adult health maintenanceNeed for prophylactic vaccination and inoculation against Streptococcus pneumoniae [pneumococcus]C ommon wart 2 No Information OFFICE/OUTPATI ENT VISIT, EST [facility], [address], [place], [place], [address] , [place] tel: [phone] [facility] test results (chief complaint) Genital herpes, unspecifiedBeni gn neoplasm of vulvaNeed for prophylactic vaccination and inoculation, influenza 2 No Information [facility], [address], [place], [place], [address] , [place] tel: [phone] Dental Soulard Velasquez Dental examination 2 No Information OFFICE/OUTPATI ENT VISIT, EST [facility], [address], [place], [place], [address] , [place] tel: [phone] [facility] irritated spot on vulva (chief complaint) Benign neoplasm of vulva 2 No Information 1ST COMPRE PREV MED E/M NEW PT 40-64 [facility], [address], [place], [place], [address] , [place] tel: [phone] [facility] annual visit (chief complaint) Routine gynecological examination 2 No Information [facility], [address], [place], [place], [id number] , [place] tel: [phone] Dental Soul[facility] Velasquez No Information 1 No Information OFFICE OUTPT EST 25 MIN [facility], [address], [place], [place], [address] , [place] tel: [phone] [facility] pain (chief complaint)E R f/u (chief complaint) Other and unspecified alcohol dependence, continuous drinking behavior 1 No Information ENVIRONMENTAL IVNTJ MGMT PURPOSES PSYC PT [facility], [address], [place], [place], [address] , [place] tel: [phone] [facility] No Information 0 No Information FAMILY PSYCHOTHERAPY (CONJOINT PSYCHOTHERAPY) (WITH PATIENT PRESENT) [facility], [address], [place], [place], [address] , [place] tel: [phone] [facility] substance abuse (chief complaint) No Information 0 No Information OFFICE/OUTPATI ENT VISIT, EST [facility], [address], [place], [place], [address] , [place] tel: [phone] [facility] alcohol (chief complaint) Other and unspecified alcohol dependence, continuous drinking behavior 0 No Information OFFICE/OUTPATI ENT VISIT, EST [facility], [address], [place], [place], [address] , [place] tel: [phone] [facility] dizziness (chief complaint)a lcohol abuse (chief complaint) Other and unspecified alcohol dependence, continuous drinking behaviorDizzine ss and giddiness 0 No Information [facility], [address], [place], [place], [address] , [place] tel: [phone] [facility] depression (chief complaint) Major depressive affective disorder, recurrent episode, moderate degreeOther and unspecified alcohol dependence, continuous drinking behaviorUnspeci fied personality disorder 0 No Information OFFICE/OUTPATI ENT VISIT, NEW [facility], [address], [place], [place], [address] , [place] tel: [phone] [facility] REFERRED BY [facility] (chief complaint)M EDICATION NEEDED (chief complaint) Issue of repeat prescriptions 0 Juan Pablo [address], [place], [place], [address], [place]. [phone] [facility], [address], [place], [place], [address] , [place] tel: [phone] Care Guidelines Aly-0 1-190 1 No Information [...] Status Goal ALT. Due on due Goal AST. Due on due Goal H&P. Due on due Goal BMP fasting. Due on 013 due Goal Influenza Vaccine. Due on due Goal PAP. Due on due Goal Breast exam. Due on 013 due Goal TSH. Due on due Goal Hemoglobin A1C. Due on due Referral Referred To: [facility] Ordered: Referral: [facility]. Psychiatry. Evaluate and treat. ordered Referral Referred To: Josse Carrillo MD [address] [place], [place], [phone] Ordered: Referral: Josse Carrillo MD. Psychiatry. Evaluate and treat. ordered Referral Referred To: [facility] [address], [place], [phone] Ordered: Referral: [facility]. Radiology. Diagnostic testing. Appointment date/timeframe: 04/12/2012 ordered Referral Referred To: Anupam Sher MD [address] [place], [place], [phone] Ordered: Referral: Anupam Sher MD. Psychiatry. Appointment [...]
--- OUTSIDE RECORDS SUMMARY | 2024-12-13 22:37 | XMS_ITS | Patient Health Summary ---
Author Organization [facility] Address [address] [place] [address] Care Team Providers Care Legal Billing Coordinator Name Role Phone Kerry Coffman DO Primary Care Provider [phone] Note from [facility],non-owned Affiliates and Associated Physician Practices is amultiple site organization consisting of ambulatory clinics and hospital sitesin [place], [place], [place] and [place]. This disclosure is being madepursuant to the Care Everywhere program and may not contain all information available regarding this patient. Last updated 18.[facility] Allergies * Penicillins(Anaphylaxis) -High Criticality * Sulfa [...] route every 30 days * blood glucose ([place] Ultra) test strip(Started 07/27/2024) USE 1 STRIP [...] propionate (Flonase) 50 MCG/ACT nasal spray(Started 08/11/2024) [place] 2 (two) sprays into each nostril once daily 6 refills by 08/11/2025 * azelastine (Astelin) 0.1 % nasal spray(Started 08/11/2024) [place] 1 (one) spray into each nostril 2 [...] 30 days 11 refills by 11/02/2025 * oatztesfxl-adqrbwwfpybxs-xfctpmhp (Fioricet) 50-300-40 MG capsule(Started 11/02/2024) Take 1 [...] Sex Assigned at Female 09/16/2024 2:41 PM GLASS RIBBON MACHINE OPERATOR ASSISTANT Gender Identity Female 09/16/2024 2:41 PM GLASS RIBBON MACHINE OPERATOR ASSISTANT Sexual Orientation Straight 09/16/2024 2: 41 PM GLASS RIBBON MACHINE OPERATOR ASSISTANT Last Filed Vital Signs Vital Sign Reading Time Taken Comments Blood Pressure 114/82 12/08/2024 12:30 PM GLASS RIBBON MACHINE OPERATOR ASSISTANT Pulse 59 12/08/2024 12:30 PM GLASS RIBBON MACHINE OPERATOR ASSISTANT Temperature 36.6 C (97.8 F) 12/08/2024 10:30 AM GLASS RIBBON MACHINE OPERATOR ASSISTANT Respiratory Rate 14 12/08/2024 12:30 PM GLASS RIBBON MACHINE OPERATOR ASSISTANT Oxygen Saturation 96% 12/08/2024 12:30 PM GLASS RIBBON MACHINE OPERATOR ASSISTANT Inhaled Oxygen Concentration - - Weight 66.9 kg (147 lb 8 oz) 12/08/2024 8:01 AM GLASS RIBBON MACHINE OPERATOR ASSISTANT Height 167.6 cm (5' 6 ) 12/08/2024 8:01 AM GLASS RIBBON MACHINE OPERATOR ASSISTANT Body Mass Index 23.81 12/08/2024 8:01 AM GLASS RIBBON MACHINE OPERATOR ASSISTANT Medical Devices Implanted Type Area Coastal Tug Mate Device Identifier Shelf Expiration Date Model / Serial / Lot Slnt Dura Duraseal Pg Trilysine Amine 5 Implanted:Qty: 1 on 03/17/2022 by Jackelyn Yang MD at [facility] Left: Cranial [employer] 08/11/2023 [id number] / / [id number] Guardian Branial [place] Hole Cover Sys Implanted:Qty: 1 on 03/17/2022 by Jackelyn Yang MD at [facility] Left: Cranial [employer] 01/01/2024 6010 / / [id number] Directional Lead Implanted:Qty: 1 on 03/17/2022 by Shailesh North MD at [facility] Left: Cranial [employer] 09/25/2023 6172 / [id number] / Lead Extension Implanted:Qty: 1 on 03/24/2022 by Shailesh North MD at [facility] Left: Neck [employer] 01/15/2024 [id number] / / [id number] Generator Implanted:Qty: 1 on 03/24/2022 by Shailesh North MD at [facility] Left: Chest [employer] 11/19/2023 6662 / / [id number] [place] Spnl 140mm 6.35mm Ti Str Implanted:Qty: 1 on 08/29/2022 by Shailesh North MD at [facility] Right: Scalp [employer] 04/02/2024 6010 / / [employer] Infinity Dbs System Implanted:Qty: 1 on 08/29/2022 by Joshua Gill MD at [facility] Right: Brain 03/19/2024 6172 / [id number] / Description:cost per Silva [employer] Infinity Dbs System Implanted:Qty: 1 on 08/29/2022 by Joshua Gill MD at [facility] Right: Chest Wall 04/23/2024 6373 / [id number] / Description:cost per silva Procedures * FL [...] Performed for Screen for colon cancer * NV COLOREC CANC SCRN,SCOPY NOT HI RISK(Performed 11/11/2024) [...] Chronic diarrhea, PUD (peptic ulcer disease) * NV COLOREC CANC SCRN,SCOPY NOT HI RISK(Performed 07/29/2024) Performed for Chronic diarrhea, PUD (peptic ulcer disease) * NV ED EGD FLEX TRANSORAL DX(Performed 07/29/2024) Performed [...] with hyperglycemia, without long-term current use of insulin([facility]) * NV ANALYS BRN NPGT PRGRMG ADDL 15(Performed 01/13/2024) Performed for Tremor, essential * NV ANALYS BRN NPGT PRGRMG 15 MIN(Performed 01/13/2024) Performed for Tremor, essential * NV ANALYS BRN NPGT PRGRMG ADDL 15(Performed 12/11/2023) Performed for Tremor * NV ANALYS BRN NPGT PRGRMG 15 MIN(Performed 12/11/2023) Performed for Tremor * NV ANALYS BRN NPGT PRGRMG ADDL 15(Performed 08/05/2023) Performed for Benign essential tremor * NV ANALYS BRN NPGT PRGRMG 15 MIN(Performed 08/05/2023) Performed for Benign essential tremor * NV ANALYS BRN NPGT PRGRMG 15 MIN(Performed 03/05/2023) Performed for Benign essential tremor * NV ANALYS BRN NPGT PRGRMG ADDL 15(Performed 03/05/2023) Performed for Benign essential tremor * VITAMIN D 25-HYDROXY(Performed 02/05/2023) * BASIC METABOLIC PANEL (CALCIUM TOTAL)(Performed 02/05/2023) * CALCIUM URINE RANDOM(Performed 02/05/2023) * MICROALB/CREAT RATIO URINE RANDOM PANEL(Performed 02/05/2023) * HEMOGLOBIN A1C - POINT OF CARE (AMB) SLU(Performed 12/08/2022) Performed for Type 2 diabetes mellitus with hyperglycemia, without long-term current use of insulin([facility]) * NV ANALYS BRN NPGT PRGRMG ADDL 15(Performed 12/07/2022) Performed for Benign essential tremor * NV ANALYS BRN NPGT PRGRMG 15 MIN(Performed 12/07/2022) Performed for Benign essential tremor * NV ANALYS BRN NPGT PRGRMG ADDL 15(Performed 10/29/2022) Performed for Benign essential tremor * NV ANALYS BRN NPGT PRGRMG 15 MIN(Performed 10/29/2022) Performed for Benign essential tremor * NV ANALYS BRN NPGT PRGRMG ADDL 15(Performed 10/01/2022) Performed for Benign essential tremor * NV ANALYS BRN NPGT PRGRMG ADDL 15(Performed 10/01/2022) Performed for Benign essential tremor * NV ANALYS BRN NPGT PRGRMG 15 MIN(Performed 10/01/2022) [...] 08/06/2022) Performed for Subjective memory complaints * NV ANALYS BRN NPGT PRGRMG 15 MIN(Performed 06/17/2022) Performed for Benign essential tremor * NV ANALYS BRN NPGT PRGRMG ADDL 15(Performed 04/17/2022) Performed for Benign essential tremor * NV ANALYS BRN NPGT PRGRMG ADDL 15(Performed 04/17/2022) Performed for Benign essential tremor * NV ANALYS BRN NPGT PRGRMG 15 MIN(Performed 04/17/2022) [...] 2 or More Regions (12/08/2024 10:27 AM GLASS RIBBON MACHINE OPERATOR ASSISTANT) Anatomical Region Laterality Modality Spine Digital Radiogra phy 12/08/2024 1:17 PM GLASS RIBBON MACHINE OPERATOR ASSISTANT Impressions 12/13/2024 12:15 PM GLASS RIBBON MACHINE OPERATOR ASSISTANT IMPRESSION: 1.Successful lumbar puncture for cervical and [...] degenerative disc and joint disease as detailed jvzqx-ib-btuwe above, worse at L4-L5, as outlined. 2.Transitional anatomy as noted above. The report is dictated by Addi Arambula MD, (vice president business & corporate development) Attending Physician: Dr. Magdalena Blackmon Chinese Teacher: Dr. Addi Arambula MD, (vice president business & corporate development) The procedure was performed by the: The senior administrative assistant, and the attending radiologist was present [...] 12/13/2024 12:15 PM Narrative 12/13/2024 12:15 PM GLASS RIBBON MACHINE OPERATOR ASSISTANT PROCEDURE: FL MYELOGRAM 2 OR MORE REGIONS, CT LUMBAR POST MYELOGRAM, CT CERVICAL POST MYELOGRAM DATE/TIME OF EXAM: 12/08/2024 10:34 AM CLINICAL INFORMATION: PROCEDURE: FL MYELOGRAM 2 OR MORE REGIONS, CT LUMBAR POST MYELOGRAM, CT CERVICAL POST MYELOGRAM, DATE/TIME OF EXAM: 12/08/2024 10:34 AM, LOCATION [facility] INDICATION: M54.50: Lumbar spine pain ADDITIONAL CLINICAL INFORMATION: Ordering Provider Reason For Exam: myelopathy (accession [id number]), chronic low back pain (accession [id number]) Technologist Note: None. Additional: None. EXAMINATION: 1.Lumbar [...] The patient was then transferred to the landcare officer unit for further observation and 2 hours [...] no high-grade central canal stenosis. There is tzbl-xh-uzshrhob facet osteoarthritis. There is mild bilateral neural foraminal stenosis. Procedure Note Magdalena Blackmon MD - 12/13/2024 PROCEDURE: FL MYELOGRAM 2 OR MORE REGIONS, CT LUMBAR POST MYELOGRAM, CT CERVICAL POST MYELOGRAM DATE/TIME OF EXAM: 12/08/2024 10:34 AM CLINICAL INFORMATION: PROCEDURE: FL MYELOGRAM 2 OR MORE REGIONS, CTLUMBAR POST MYELOGRAM, CT CERVICAL POST MYELOGRAM, DATE/TIME OF EXAM:12/08/2024 10:34 AM, LOCATION [facility] INDICATION: M54.50: Lumbar spine pain ADDITIONAL CLINICAL INFORMATION: Ordering Provider Reason For Exam: myelopathy (accession [id number]), chronic low back pain (accession [id number]) Technologist Note: None. Additional: None. EXAMINATION: 1.Lumbar [...] well. The patient wasthen transferred to the landcare officer unit for further observation and 2hours of [...] island in the right aspect of the J8ckoazkcfh body. Vertebral bodies are normal in height [...] is no high-grade central canal stenosis. Thereis hljn-cs-rdqcubmi facet osteoarthritis. There is mild bilateral neural [...] 1.Multilevel degenerative disc and joint disease as fiplyhphougjz-yy-muaqq above, worse at L4-L5, as outlined. 2.Transitional anatomy as noted above. The report is dictated by Addi Arambula MD, (vice president business & corporate development) Attending Physician: Dr. Magdalena Blackmon Chinese Teacher: Dr. Addi Arambula MD, (vice president business & corporate development) The procedure was performed by the: The senior administrative assistant, and the attending radiologist was present for allcritical and mariscal portions of the procedure, and [facility] the entire procedure. The attending radiologist performed the following procedural activities: Dr. Magdalena Gutierrez was there and supervised mariscal portions of the procedure, not scrubbed. Magdalena Gutierrez MD have personally reviewed and interpretedthis examination/study. > Interpreting Provider: Magdalena Blackmon MD on 12/13/2024 12:15 PM Cornelio Lima MD FLUOROSCOPY OR DERABLES * CT Lumbar Post Myelogram (12/08/2024 10:25 AM GLASS RIBBON MACHINE OPERATOR ASSISTANT) Anatomical Region Laterality Modality Spine Computed Tomogra phy 12/08/2024 1:17 PM GLASS RIBBON MACHINE OPERATOR ASSISTANT Impressions 12/13/2024 12:15 PM GLASS RIBBON MACHINE OPERATOR ASSISTANT IMPRESSION: 1.Successful lumbar puncture for cervical and [...] degenerative disc and joint disease as detailed wotqe-lx-krqoz above, worse at L4-L5, as outlined. 2.Transitional anatomy as noted above. The report is dictated by Addi Arambula MD, (vice president business & corporate development) Attending Physician: Dr. Magdalena Blackmon Chinese Teacher: Dr. Addi Arambula MD, (vice president business & corporate development) The procedure was performed by the: The senior administrative assistant, and the attending radiologist was present [...] 12/13/2024 12:15 PM Narrative 12/13/2024 12:15 PM GLASS RIBBON MACHINE OPERATOR ASSISTANT PROCEDURE: FL MYELOGRAM 2 OR MORE REGIONS, CT LUMBAR POST MYELOGRAM, CT CERVICAL POST MYELOGRAM DATE/TIME OF EXAM: 12/08/2024 10:34 AM CLINICAL INFORMATION: PROCEDURE: FL MYELOGRAM 2 OR MORE REGIONS, CT LUMBAR POST MYELOGRAM, CT CERVICAL POST MYELOGRAM, DATE/TIME OF EXAM: 12/08/2024 10:34 AM, LOCATION [facility] INDICATION: M54.50: Lumbar spine pain ADDITIONAL CLINICAL INFORMATION: Ordering Provider Reason For Exam: myelopathy (accession [id number]), chronic low back pain (accession [id number]) Technologist Note: None. Additional: None. EXAMINATION: 1.Lumbar [...] The patient was then transferred to the landcare officer unit for further observation and 2 hours [...] no high-grade central canal stenosis. There is oqhh-mx-aavcxupj facet osteoarthritis. There is mild bilateral neural foraminal stenosis. Procedure Note Magdalena Blackmon MD - 12/13/2024 PROCEDURE: FL MYELOGRAM 2 OR MORE REGIONS, CT LUMBAR POST MYELOGRAM, CT CERVICAL POST MYELOGRAM DATE/TIME OF EXAM: 12/08/2024 10:34 AM CLINICAL INFORMATION: PROCEDURE: FL MYELOGRAM 2 OR MORE REGIONS, CTLUMBAR POST MYELOGRAM, CT CERVICAL POST MYELOGRAM, DATE/TIME OF EXAM:12/08/2024 10:34 AM, LOCATION [facility] INDICATION: M54.50: Lumbar spine pain ADDITIONAL CLINICAL INFORMATION: Ordering Provider Reason For Exam: myelopathy (accession [id number]), chronic low back pain (accession [id number]) Technologist Note: None. Additional: None. EXAMINATION: 1.Lumbar [...] well. The patient wasthen transferred to the landcare officer unit for further observation and 2hours of [...] island in the right aspect of the I2kmiaqxuay body. Vertebral bodies are normal in height [...] is no high-grade central canal stenosis. Thereis qcgx-uv-lwdtpdul facet osteoarthritis. There is mild bilateral neural [...] 1.Multilevel degenerative disc and joint disease as ofnqcklinawpf-vp-pgdsh above, worse at L4-L5, as outlined. 2.Transitional anatomy as noted above. The report is dictated by Addi Arambula MD, (vice president business & corporate development) Attending Physician: Dr. Magdalena Blackmon Chinese Teacher: Dr. Addi Arambula MD, (vice president business & corporate development) The procedure was performed by the: The senior administrative assistant, and the attending radiologist was present [...] CT Cervical Post Myelogram (12/08/2024 10:25 AM GLASS RIBBON MACHINE OPERATOR ASSISTANT) Anatomical Region Laterality Modality Spine Computed Tomogra phy 12/08/2024 1:17 PM GLASS RIBBON MACHINE OPERATOR ASSISTANT Impressions 12/13/2024 12:15 PM GLASS RIBBON MACHINE OPERATOR ASSISTANT IMPRESSION: 1.Successful lumbar puncture for cervical and [...] degenerative disc and joint disease as detailed yjesp-nw-fdnoh above, worse at L4-L5, as outlined. 2.Transitional anatomy as noted above. The report is dictated by Addi Arambula MD, (vice president business & corporate development) Attending Physician: Dr. Magdalena Blackmon Chinese Teacher: Dr. Addi Arambula MD, (vice president business & corporate development) The procedure was performed by the: The senior administrative assistant, and the attending radiologist was present [...] 12/13/2024 12:15 PM Narrative 12/13/2024 12:15 PM GLASS RIBBON MACHINE OPERATOR ASSISTANT PROCEDURE: FL MYELOGRAM 2 OR MORE REGIONS, CT LUMBAR POST MYELOGRAM, CT CERVICAL POST MYELOGRAM DATE/TIME OF EXAM: 12/08/2024 10:34 AM CLINICAL INFORMATION: PROCEDURE: FL MYELOGRAM 2 OR MORE REGIONS, CT LUMBAR POST MYELOGRAM, CT CERVICAL POST MYELOGRAM, DATE/TIME OF EXAM: 12/08/2024 10:34 AM, LOCATION [facility] INDICATION: M54.50: Lumbar spine pain ADDITIONAL CLINICAL INFORMATION: Ordering Provider Reason For Exam: myelopathy (accession [id number]), chronic low back pain (accession [id number]) Technologist Note: None. Additional: None. EXAMINATION: 1.Lumbar [...] The patient was then transferred to the landcare officer unit for further observation and 2 hours [...] no high-grade central canal stenosis. There is hczh-cc-nsfdheet facet osteoarthritis. There is mild bilateral neural foraminal stenosis. Procedure Note Magdalena Blackmon MD - 12/13/2024 PROCEDURE: FL MYELOGRAM 2 OR MORE REGIONS, CT LUMBAR POST MYELOGRAM, CT CERVICAL POST MYELOGRAM DATE/TIME OF EXAM: 12/08/2024 10:34 AM CLINICAL INFORMATION: PROCEDURE: FL MYELOGRAM 2 OR MORE REGIONS, CTLUMBAR POST MYELOGRAM, CT CERVICAL POST MYELOGRAM, DATE/TIME OF EXAM:12/08/2024 10:34 AM, LOCATION [facility] INDICATION: M54.50: Lumbar spine pain ADDITIONAL CLINICAL INFORMATION: Ordering Provider Reason For Exam: myelopathy (accession [id number]), chronic low back pain (accession [id number]) Technologist Note: None. Additional: None. EXAMINATION: 1.Lumbar [...] well. The patient wasthen transferred to the landcare officer unit for further observation and 2hours of [...] island in the right aspect of the O8mcbwmskka body. Vertebral bodies are normal in height [...] is no high-grade central canal stenosis. Thereis pwtw-iy-vstpuggw facet osteoarthritis. There is mild bilateral neural [...] 1.Multilevel degenerative disc and joint disease as ttjoupgipeuiu-bx-udzcn above, worse at L4-L5, as outlined. 2.Transitional anatomy as noted above. The report is dictated by Addi Arambula MD, (vice president business & corporate development) Attending Physician: Dr. Magdalena Blackmon Chinese Teacher: Dr. Addi Arambula MD, (vice president business & corporate development) The procedure was performed by the: The senior administrative assistant, and the attending radiologist was present for allcritical and mariscal portions of the procedure, and was immediately available tofurnish services during the entire procedure. The attending radiologist performed the following procedural activities: IDr. Magdalena was there and supervised mariscal portions of the procedure, not scrubbed. IMagdalena MD have personally reviewed and interpretedthis examination/study. > Interpreting Provider: Magdalena Blacmkon MD on 12/13/2024 12:15 PM Corn[address]io Lima MD CT ORDERABLES * XR Spine Entire 2 or 3Vw (11/23/2024 11:09 AM GLASS RIBBON MACHINE OPERATOR ASSISTANT) Anatomical Region Laterality Modality Spine Radiographic Josephine ging 11/23/2024 11:3 1 AM GLASS RIBBON MACHINE OPERATOR ASSISTANT Impressions 11/23/2024 11:34 AM GLASS RIBBON MACHINE OPERATOR ASSISTANT IMPRESSION: Mild scoliosis. > Interpreting Provider: Baljinder Dunbar MD on 11/23/2024 11:34 AM Narrative 11/23/2024 11:34 AM GLASS RIBBON MACHINE OPERATOR ASSISTANT PROCEDURE: XR SPINE ENTIRE 2 OR 3VW [...] 10 degrees, a lower thoracic levo curve ixnpjuqmu63 degrees, and a lumbar dextro curve measuring [...] Spine 2 or 3Vw (11/23/2024 11:06 AM GLASS RIBBON MACHINE OPERATOR ASSISTANT) Anatomical Region Laterality Modality Spine Radiographic Josephine ging 11/23/2024 11:2 9 AM GLASS RIBBON MACHINE OPERATOR ASSISTANT Impressions 11/23/2024 11:31 AM GLASS RIBBON MACHINE OPERATOR ASSISTANT IMPRESSION: Moderate cervical spondylosis. > Interpreting Provider: Baljinder Dunbar MD on 11/23/2024 11:31 AM Narrative 11/23/2024 11:31 AM GLASS RIBBON MACHINE OPERATOR ASSISTANT PROCEDURE: XR CERVICAL SPINE 2 OR 3VW [...] Spine 2 or 3Vw (11/23/2024 10:00 AM GLASS RIBBON MACHINE OPERATOR ASSISTANT) Anatomical Region Laterality Modality Spine Computed Radiogr aphy 11/23/2024 10:3 8 AM GLASS RIBBON MACHINE OPERATOR ASSISTANT Impressions 11/23/2024 10:39 AM GLASS RIBBON MACHINE OPERATOR ASSISTANT IMPRESSION: Mild to moderate degenerative changes. > Interpreting Provider: Baljinder Dunbar MD on 11/23/2024 10:39 AM Narrative 11/23/2024 10:39 AM GLASS RIBBON MACHINE OPERATOR ASSISTANT PROCEDURE: XR LUMBAR SPINE 2 OR 3VW [...] ORDERABLES * PATHOLOGY TISSUE (11/11/2024 10:16 AM GLASS RIBBON MACHINE OPERATOR ASSISTANT) Only the most recent of2 resultswithin the time period is included. Case Report Surgical Pathology Report Case: [id number] Authorizing Provider: Sixto Cornell MD Collected: 11/11/2024 10:16 AM Ordering Location: [facility]COPY Received: 11/11/2024 10:58 AM Pathologist: Kenyatta Norris MD Specimens: A) - Polyp Ascending, ascending colon polyp B) - Polyp Descending, descending colon polyps 11/14/2024 3:20 PM [facility] Final Diagnosis Large intestine, ascending colon polyp, biopsy (A): - Tubular adenoma Large intestine, descending colon polyps, biopsy (B): - Tubular adenoma(s), fragmented 11/14/2024 3:20 PM [facility] Microscopic Description and Comment Microscopic examination substantiates the final diagnosis. 11/14/2024 3:20 PM [facility] Clinical History The patient is a 69-year-old woman who presents for high risk colon cancer surveillance (personal history of colonic polyps). Operative procedure/findings: Colonoscopy - 2 mm ascending colon polyp, 4 and 5 mm descending colon polyps, resected and retrieved 11/14/2024 3:20 PM [facility] Gross Description The requisition and [...] cassette labeled B1. RB 11/14/2024 3:20 PM [facility] Pathologist Location at [facility] 11/14/2024 3:20 PM [facility] Disclaimer The performance characteristics of all immunohistochemical and indirect immunofluorescence stains (if any) cited in this report were determined by the Histopathology Laboratory of [facility]. Some of these tests were developed [...] the attending (teaching) pathologist. 11/14/2024 3:20 PM [facility] Embedded Images 11/14/2024 3:20 PM [facility] Biopsy, NOS POLYP / Unknown 11/11/2024 1 0:16 AM GLASS RIBBON MACHINE OPERATOR ASSISTANT 11/11/2024 10:58 AM GLASS RIBBON MACHINE OPERATOR ASSISTANT Comment:Pre-op diagnosis: Screen for colon cancer [Z12.11] Biopsy, NOS POLYP / Unknown 11/11/2024 1 0:19 AM GLASS RIBBON MACHINE OPERATOR ASSISTANT 11/11/2024 10:58 AM GLASS RIBBON MACHINE OPERATOR ASSISTANT Comment:Pre-op diagnosis: Screen for colon cancer [Z12.11] Sixto Cornell MD LAB - PATHOLOGY/CYTO LOGY ORDERABLES Performing Organization Address City/State/[facility] Phone Number [facility] [address] [phone] * ENDOSCOPY, COLON, SCREENING (11/11/2024 9:52 AM GLASS RIBBON MACHINE OPERATOR ASSISTANT) Report Endoscopy POC Endoscopy Department Report _ [...] bowel preparation was evaluated using the BBPS ([place] Bowel Preparation Scale) with scores of: Right [...] non-mariscal portions. Procedure Code(s): --- Professional --- 12979, Colonoscopy, flexible; with removal of tumor(s), polyp(s), or other lesion(s) by snare technique 36866, 59, Colonoscopy, flexible; with biopsy, single or multiple Diagnosis Code(s): --- Professional --- Z86.010, Personal history of colonic polyps D12.2, Benign neoplasm of ascending colon D12.4, Benign neoplasm of descending colon K57.30, Diverticulosis of large intestine without perforation or abscess without bleeding CPT copyright 2021 [employer]. All rights reserved. The codes documented in this report are preliminary and upon supervisor brooder farm review may be revised to meet current compliance requirements. Sixto Cornell MD 11/11/2024 10:36:45 AM This report has been signed electronically. Note Initiated On: 11/11/2024 9:52 AM Number of Addenda: [address] [place] [address] [facility] EMERGENC[facility] 11/11/2024 9:52 AM GLASS RIBBON MACHINE OPERATOR ASSISTANT Sixto Cornell MD GI PROCEDURE ORDERAB LES Performing Organization Address City/[facility] Co de Phone Number [facility] * GLUCOSE - POINT OF CARE (11/11/2024 9:19 AM GLASS RIBBON MACHINE OPERATOR ASSISTANT) Only the most recent of16 resultswithin the time period is included. Pathologist [facility] Glucose WB/POC 99 70 - 99 mg/dL 11/11/2024 9:54 AM GLASS RIBBON MACHINE OPERATOR ASSISTANT [facility] Specimen Type Venous 11/11/2024 9:54 AM GLASS RIBBON MACHINE OPERATOR ASSISTANT [facility] Blood BLOOD SPECIMEN / Unknown 11/11/2024 9:19 AM GLASS RIBBON MACHINE OPERATOR ASSISTANT 11/11/2024 9:54 AM GLASS RIBBON MACHINE OPERATOR ASSISTANT Sixto Cornell MD LAB - POINT OF CARE ORDERABLES Performing Organization Address [facility] Co de Phone Number [facility] [address] [place] [address], [facility] [phone] * CALPROTECTIN FECAL (11/07/2024 3:52 PM GLASS RIBBON MACHINE OPERATOR ASSISTANT) Pathologist [facility] Calprotectin Fecal 69 mcg/g [facility] Comment: Reference [...] suggested for borderline values. Test Performed at: [facility] [address] [place] [address] JARRELL CALDERON MD,PHD,EDGARDO Stool STOOL SPECIMEN / Unknown 11/07/2024 3:52 PM GLASS RIBBON MACHINE OPERATOR ASSISTANT 11/08/2024 4:47 AM GLASS RIBBON MACHINE OPERATOR ASSISTANT Yolanda Greer MEMBERSHIP CORRESPONDENT-PAGEANT DIRECTOR LAB - CRISTINA DY FLUID ORDERABLES Performing Organization Address [facility] Co de Phone Number [address] [address] * CULTURE STOOL PANEL (11/07/2024 3:52 PM GLASS RIBBON MACHINE OPERATOR ASSISTANT) Campylobacter Antigen [facility] Comment: CAMPYLOBACTER SPP. AG,EIA Micro Number: [id number] Test Status: Final Specimen Source: Stool Specimen Quality: Adequate Campy Ag Result: Not Detected Reference Range: Not Detected EIA [facility] Comment: SHIGA TOXINS, EIA W/RFL TO E.COLI O157 CULTURE Micro Number: [id number] Test Status: Final Specimen Source: Stool Specimen Quality: Adequate Shiga Toxin: Not Detected Reference Range: Not Detected Culture [facility] Comment: SALMONELLA AND SHIGELLA, CULTURE Micro Number: [id number] Test Status: Final Specimen Source: Stool Specimen Quality: Adequate Result: No Salmonella or Shigella isolated Test Performed at: [facility] [address] SAROJ FAUSTIN MD Stool STOOL SPECIMEN / Unknown 11/07/2024 3:52 PM GLASS RIBBON MACHINE OPERATOR ASSISTANT 11/07/2024 11:51 PM GLASS RIBBON MACHINE OPERATOR ASSISTANT Yolanda Greer MEMBERSHIP CORRESPONDENT-PAGEANT DIRECTOR LAB - OR CROBIOLOGY ORDERABLES Performing Organization Address [facility] de Phone Number [address] [address] * C DIFFICILE CYTOTOXIN (11/07/2024 3:51 PM GLASS RIBBON MACHINE OPERATOR ASSISTANT) Cytotoxin Assay Stool NOT DETECTED [facility] Comment: [...] (GDH) with Reflex to PCR, order code 52289 or Clostridium difficile toxin B, Qualitative real time PCR, test code 52754 to be more sensitive and timely methods for the diagnosis of C. difficile colitis. For additional information, please refer to http://education.Wordster/faq/SJY321 (This link is being provided for informational/ educational purposes only.) Test Performed at: [facility] [address] [place] [address] JARRELL CALDERON MD,PHD,EDGARDO Stool STOOL SPECIMEN / Unknown 11/07/2024 3:51 PM GLASS RIBBON MACHINE OPERATOR ASSISTANT 11/08/2024 4:58 AM GLASS RIBBON MACHINE OPERATOR ASSISTANT Yolanda Percy MEMBERSHIP CORRESPONDENT-PAGEANT DIRECTOR LAB - OR CROBIOLOGY ORDERABLES [facility] [address] [place] [address] * PROC DEEP BRAIN STIMULATOR (11/03/2024 2:08 PM GLASS RIBBON MACHINE OPERATOR ASSISTANT) Narrative Moncho Salcedo APRN-CNP - 11/03/2024 2:08 PM GLASS RIBBON MACHINE OPERATOR ASSISTANT Moncho Salcedo APRN-CNP 11/03/2024 4:00 PM Please see office notes for documentation- Thanks Moncho Salcedo MEMBERSHIP CORRESPONDENT-PAGEANT DIRECTOR PROCEDURE/MINOR SURGICAL ORDERABLES * XR Knee Left 4Vw or More (09/19/2024 9:18 AM GLASS RIBBON MACHINE OPERATOR ASSISTANT) Anatomical Region Laterality Modality Lower Extremity Digital Radiogra phy 09/19/2024 10:0 4 AM GLASS RIBBON MACHINE OPERATOR ASSISTANT Impressions 09/19/2024 10:41 AM GLASS RIBBON MACHINE OPERATOR ASSISTANT IMPRESSION: No acute fracture or dislocation identified. Report dictated by Arnoldo Walker MD (vice president business & corporate development). I, Baljinder Dunbar MD have personally reviewed and interpreted this examination/study. > Interpreting Provider: Baljinder Dunbar MD on 09/19/2024 10:41 AM Narrative 09/19/2024 10:41 AM GLASS RIBBON MACHINE OPERATOR ASSISTANT PROCEDURE: XR KNEE LEFT 4VW OR MORE, DATE/TIME OF EXAM: 09/19/2024 9:19 AM, LOCATION [facility] INDICATION: M25.562: Acute pain of left knee ADDITIONAL CLINICAL INFORMATION: COMPARISON: None. FINDINGS: The osseous structures are intact and well aligned without acute fracture or dislocation. The knee joint space is preserved. No joint effusion is seen. Procedure Note Baljinder Dunbar MD - 09/19/2024 PROCEDURE: XR KNEE LEFT 4VW OR MORE, DATE/TIME OF EXAM: 09/19/2024 9:19 AM, LOCATION [facility] INDICATION: M25.562: Acute pain of left knee ADDITIONAL CLINICAL INFORMATION: COMPARISON: None. FINDINGS: The osseous structures are intact and well aligned without acutefracture or dislocation. The knee joint space is preserved. No joint effusion is seen. IMPRESSION: No acute fracture or dislocation identified. Report dictated by Arnoldo Walker MD (vice president business & corporate development). IBaljinder MD have personally reviewed and interpreted this examination/study. > Interpreting Provider: Baljinder Dunbar MD on 09/19/2024 10:41 AM Kerry Coffman DO DIAGNOSTIC IMAGING O RDERABLES * XR Lumbar Spine 4Vw or More (09/19/2024 9:18 AM GLASS RIBBON MACHINE OPERATOR ASSISTANT) Anatomical Region Laterality Modality Spine Digital Radiogra phy 09/19/2024 10:2 2 AM GLASS RIBBON MACHINE OPERATOR ASSISTANT Impressions 09/19/2024 3:01 PM GLASS RIBBON MACHINE OPERATOR ASSISTANT IMPRESSION: Moderate dextroscoliosis. Grade 1 anterior spondylolisthesis of L4 relative to L5 seen in association with mild instability as discussed above. > Dictated by Kim Noonan MD, (vice president business & corporate development). ISergio MD have personally reviewed and interpreted this examination/study. > Interpreting Provider: Sergio mOalley MD on 09/19/2024 3:01 PM Narrative 09/19/2024 3:01 PM GLASS RIBBON MACHINE OPERATOR ASSISTANT PROCEDURE: XR LUMBAR SPINE 4VW OR MORE, DATE/TIME OF EXAM: 09/19/2024 9:19 AM, LOCATION [facility] INDICATION: M54.50: Acute bilateral low back [...] MORE, DATE/TIME OF EXAM: 49:19 AM, LOCATION [facility] INDICATION: M54.50: Acute bilateral low back [...] above. > Dictated by Kim Noonan MD, (vice president business & corporate development). I, Sergio Omalley MD have personally reviewed and interpreted this examination/study. > Interpreting Provider: Sergio Omalley MD on 09/19/2024 3:01 PM Kerry Coffman DO DIAGNOSTIC IMAGING O RDERABLES * PROC DEEP BRAIN STIMULATOR (09/01/2024 8:53 AM GLASS RIBBON MACHINE OPERATOR ASSISTANT) Narrative Rissa Vo MD - 09/01/2024 8:53 AM GLASS RIBBON MACHINE OPERATOR ASSISTANT Rissa Vo MD 09/01/2024 8:53 AM Please see procedure notes Rissa Maldonado MD PROCEDURE/GODWIN R SURGICAL ORDERABLES * ALLERGEN BIRCH IGE (08/17/2024 1:51 PM GLASS RIBBON MACHINE OPERATOR ASSISTANT) Allergen Birch <0.10 kU/L [facility] Class 0 [facility] Comment: Test Performed at: [facility] [address] [place] [address] SAROJ FAUSTIN MD Blood BLOOD SPECIMEN / Unknown 08/17/2024 1:51 PM GLASS RIBBON MACHINE OPERATOR ASSISTANT 08/17/2024 1:51 PM GLASS RIBBON MACHINE OPERATOR ASSISTANT Papito Morales MD LAB - SEROLOGY ORDER RHONDA Performing Organization Address [facility] Co de Phone Number [facility] [address] [place] [address] * ALLERGEN INTERPRETATION (08/17/2024 1:51 PM GLASS RIBBON MACHINE OPERATOR ASSISTANT) Interpretation See Below [facility] Comment: Specific Level [...] analytical performance characteristics have been determined by [employer]. It has not been cleared or approved by the U.S. Food and Drug Administration. This assay has been validated pursuant to the CLIA regulations and is used for clinical purposes. Test Performed at: [facility] [address] [place] [address] SAROJ FAUSTIN MD 08/17/2024 1:51 PM GLASS RIBBON MACHINE OPERATOR ASSISTANT 08/17/2024 1:51 PM GLASS RIBBON MACHINE OPERATOR ASSISTANT Papito Morales MD LAB - SEROLOGY ORDER RHONDA Performing Organization Address [facility] Co de Phone Number [facility] [phone] [place] [address] * ALLERGEN RESPIRATORY PNL REGION 8 ([place]) (08/17/2024 1:51 PM GLASS RIBBON MACHINE OPERATOR ASSISTANT) Allergen Dermatophagoides pteronyssinus <0.10 kU/L [facility] Class [...] kU/L [facility] Class 0 [facility] Allergen Cockroach Argentine <0.10 kU/L [facility] Class 0 [facility] Allergen Maple <0.10 kU/L [facility] Class 0 [facility] Allergen Mountain Fruitland <0.10 kU/L [facility] Class 0 [facility] Allergen Mckinney Tree <0.10 kU/L [facility] Class 0 [facility] Allergen Lead Hill <0.10 kU/L [facility] Class 0 [facility] Allergen Rankin Tree <0.10 kU/L [facility] Class 0 [facility] Allergen White Bassam <0.10 kU/L [facility] Class 0 [facility] Allergen Merriman <0.10 kU/L [facility] Class 0 [facility] Allergen Elm <0.10 kU/L [facility] Class 0 [facility] Allergen Coleharbor/Pecan Tree <0.10 kU/L [facility] Class 0 [facility] Allergen White Omaha <0.10 kU/L [facility] Class 0 [facility] Allergen Bermuda Grass <0.10 kU/L [facility] Class 0 [facility] Allergen Paresh Grass <0.10 kU/L [facility] Class 0 [facility] Allergen Common Ragweed <0.10 kU/L [facility] Class 0 [facility] Allergen Rough Pigweed <0.10 kU/L [facility] Class 0 [facility] Allergen Japanese Thistle <0.10 kU/L [facility] Class 0 [facility] Allergen Rough Veliz Elder <0.10 kU/L [facility] Class 0 [facility] Allergen Mouse Urine Protein <0.10 kU/L [facility] Class 0 [facility] IgE 12 <WK=850 kU/L [facility] Comment: Test Performed at: [facility] [address] [place] [address] SAROJ FAUSTIN MD Blood BLOOD SPECIMEN / Unknown 08/17/2024 1:51 PM GLASS RIBBON MACHINE OPERATOR ASSISTANT 08/17/2024 1:51 PM GLASS RIBBON MACHINE OPERATOR ASSISTANT Papito Morales MD LAB - CHEMISTRY SOTERO PATEL [facility] [address] [place] [address] * HENDRIX AUTO VISUAL FIELD EXTENDED (08/11/2024 [...] bowel preparation was evaluated using the BBPS (Fountain Bowel Preparation Scale) with scores of: Right [...] entire procedure. Procedure Code(s): --- Professional --- 32879, Colonoscopy, flexible; with biopsy, single or multiple Diagnosis Code(s): --- Professional --- K64.0, First degree hemorrhoids K52.9, Noninfective gastroenteritis and colitis, unspecified CPT copyright 2021 [employer]. All rights reserved. The codes documented in this report are preliminary and upon supervisor brooder farm review may be revised to meet current compliance requirements. Colt Menchaca, 07/29/2024 9:27:51 AM Note Initiated On: 07/29/2024 9:03 AM Number of Addenda: 0 [facility] [address] [place] [address] [facility] PROVATION 07/29/2024 9:03 AM CDT Colt Menchaca [...] entire procedure. Procedure Code(s): --- Professional --- 51276, Esophagogastroduo denoscopy, flexible, transoral; with biopsy, single or multiple Diagnosis Code(s): --- Professional --- K29.70, Gastritis, unspecified, without bleeding R19.7, Diarrhea, unspecified CPT copyright 2021 [employer]. All rights reserved. The codes documented in this report are preliminary and upon supervisor brooder farm review may be revised to meet current compliance requirements. Colt Menchaca, 07/29/2024 9:07:01 AM Note Initiated On: 07/29/2024 8:35 AM Number of Addenda: [id number] [place] [address] PROVATION 07/29/2024 8:35 AM CDT Colt Menchaca MD GI PROCEDURE O RDERABLES [facility] * FUNDUS PHOTO BOTH EYES (07/28/2024 12:40 [...] - 4.99 FLU 07/22/2024 5:45 AM CDT [employer] ([facility]) Comment: INTERPRETIVE INFORMATION: Tissue Transglutaminase Ab, IgG [...] in patients without IgA deficiency. Performed By: Dr. Z [address] [place] [address] Bistro Attendant: Richard Guerin MD, PhD CLIA Number: [id number] Blood BLOOD SPECIMEN / Unknown Lab Venipuncture / Unknown 07/20/2024 11:49 AM CDT 07/20/2024 12:25 PM CDT Yolanda Greer MEMBERSHIP CORRESPONDENT-PAGEANT DIRECTOR LAB - CH EMISTRY ORDERABLES [employer] ([facility]) [address] [place] [address] * TISSUE TRANSGLUTAMINASE AB IGA (07/20/2024 11:49 AM CDT) Tissue Transglutaminase (tTG) Ab, IgA 1.83 0.00 - 4.99 FLU 07/22/2024 5:45 AM CDT [facility] ([facility]) Comment: INTERPRETIVE INFORMATION: Tissue Transglutaminase (tTG) Antibody, [...] indicate a response to therapy. Performed By: Dr. Z [address] [place] [address] Bistro Attendant: Richard Guerin MD, PhD CLIA Number: [id number] Blood BLOOD SPECIMEN / Unknown Lab Venipuncture / Unknown 07/20/2024 11:49 AM CDT 07/20/2024 12:27 PM CDT Yolanda Greer MEMBERSHIP CORRESPONDENT-PAGEANT DIRECTOR LAB - ROLOGY ORDERABLES [facility] Via[facility]) [address] * C-REACTIVE PROTEIN (07/20/2024 11:49 AM CDT) C-Reactive Protein 0.5 <=0.5 mg/dL 07/20/2024 12:52 PM CDT [facility] Blood BLOOD SPECIMEN / Unknown Lab Venipuncture / Unknown 07/20/2024 11:49 AM CDT 07/20/2024 12:17 PM CDT Yolanda Greer APRN-PAGEANT DIRECTOR [employer] EMISTRY ORDERABLES [facility] [address] [place] [address], [facility] [phone] * VITAMIN D 25-HYDROXY (07/20/2024 11:49 AM CDT) Only the most recent of2 resultswithin the time period is included. Vitamin D, 25 Hydroxy 51.6 30.0 - 80.0 ng/mL 07/20/2024 1:18 PM CDT [facility] Comment: The recommendations for 25-Hydroxy Vitamin D [...] CDT 07/20/2024 12:17 PM CDT Yolanda Greer [facility] LAB [facility] EMISTRY ORDERABLES Performing Organization Address City/[facility]/ZIP Co de Phone Number [facility] [address] [place] [address], [facility] [phone] * (ABNORMAL) CBC W/ DIFFERENTIAL (07/20/2024 11:49 AM CDT) Only the most recent of6 resultswithin the time period is included. WBC 4.0 4.0 - 10.7 x10E9/L 07/20/2024 12:24 PM CDT [facility] RBC Count 4.48 3.90 - 5.20 x10E12/L 07/20/2024 12:24 PM CDT [facility] Hemoglobin 13.9 11.9 - 15.8 g/dL 07/20/2024 12:24 PM CDT [facility] Hematocrit 42.5 34.8 - 46.1 % 07/20/2024 12:24 PM [facility] MCV 94.9 80.0 - 98.0 fL 07/20/2024 12:24 PM [facility] MCH 31.0 26.7 - 33.6 pg 07/20/2024 12:24 PM [facility] MCHC 32.7 31.7 - 36.3 g/dL 07/20/2024 12:24 PM [facility] RDW-CV 13.2 11.3 - 14.8 % 07/20/2024 12:24 PM [facility] Platelet Count 225 150 - 420 x10E9/L 07/20/2024 12:24 PM [facility] MPV 9.7 7.8 - 11.4 fL 07/20/2024 12:24 PM [facility] Neutrophil % 68.4 41.0 - 74.0 % 07/20/2024 12:24 PM [facility] Lymphocyte % 19.0 17.0 - 47.0 % 07/20/2024 12:24 PM [facility] Monocyte % 9.0 3.0 - 11.0 % 07/20/2024 12:24 PM [facility] Eosinophil % 1.8 0.0 - 7.0 % 07/20/2024 12:24 PM [facility] Basophil % 1.3 0.0 - 1.6 % 07/20/2024 12:24 PM [facility] Immature Granulocytes % 0.5 0.0 - 1.0 % 07/20/2024 12:24 PM [facility] Neutrophil Absolute 2.74 1.60 - 7.50 x10E9/L 07/20/2024 12:24 PM [facility] Lymphocyte Absolute 0.76(L) 1.00 - 4.40 x10E9/L 07/20/2024 12:24 PM [facility] Monocyte Absolute 0.36 0.15 - 1.00 x10E9/L 07/20/2024 12:24 PM [facility] Eosinophil Absolute 0.07 0.00 - 0.60 x10E9/L 07/20/2024 12:24 PM [facility] Basophil Absolute 0.05 0.00 - 0.13 x10E9/L 07/20/2024 12:24 PM [facility] Blood BLOOD SPECIMEN / Unknown Lab Venipuncture / Unknown 07/20/2024 11:49 AM CDT 07/20/2024 12:17 PM CDT Yolanda Greer MEMBERSHIP CORRESPONDENT-PAGEANT DIRECTOR LAB - HE MATOLOGY ORDERABLES [facility] [address] [place] [address], [facility] [phone] * (ABNORMAL) COMPREHENSIVE METABOLIC PANEL (07/20/2024 11:49 AM CDT) BUN 10 7 - 26 mg/dL 07/20/2024 12:52 PM [facility] Creatinine 0.80 0.56 - 0.96 mg/dL 07/20/2024 12:52 PM [facility] Sodium 139 136 - 145 mmol/L 07/20/2024 12:52 PM [facility] Potassium 4.3 3.5 - 4.5 mmol/L 07/20/2024 12:52 PM [facility] Chloride 103 98 - 107 mmol/L 07/20/2024 12:52 PM [facility] CO2 28 22 - 29 mmol/L 07/20/2024 12:52 PM [facility] Glucose 165(H) 70 - 115 mg/dL 07/20/2024 12:52 PM [facility] Calcium 9.8 8.4 - 10.2 mg/dL 07/20/2024 12:52 PM [facility] Protein Total 7.1 6.0 - 8.3 g/dL 07/20/2024 12:52 PM [facility] Albumin 4.2 3.4 - 5.0 g/dL 07/20/2024 12:52 PM [facility] Bilirubin Total 0.2 0.2 - 1.2 mg/dL 07/20/2024 12:52 PM [facility] Alkaline Phosphatase 124 40 - 150 U/L 07/20/2024 12:52 PM [facility] ALT 16 5 - 55 U/L 07/20/2024 12:52 PM [facility] AST 20 5 - 34 U/L 07/20/2024 12:52 PM [facility] Anion Gap 8 6 - 16 07/20/2024 12:52 PM [facility] BUN/Creatinine Ratio 13 7 - 23 07/20/2024 12:52 PM [facility] Osmolality Calculated 291 275 - 295 mOsm/kg 07/20/2024 12:52 PM [facility] Albumin/Globulin Ratio 1.4 1.1 - 2.3 07/20/2024 12:52 PM [facility] eGFR by CKD-EPI 80(L) >=90 mL/min/1.7 3 m2 07/20/2024 12:52 PM [facility] Blood BLOOD SPECIMEN / Unknown Lab Venipuncture / Unknown 07/20/2024 11:49 AM CDT 07/20/2024 12:17 PM CDT Yolanda Greer APRNARELY LAB - CH EMISTRY ORDERABLES Performing Organization Address City/[facility]/ZIP Co de Phone Number [address] [address], [facility] [phone] * FOLATE (07/20/2024 11:49 AM CDT) Only the most recent of2 resultswithin the time period is included. Folate 13.1 7.0 - 31.4 ng/mL 07/20/2024 1:18 PM T [facility] Blood BLOOD SPECIMEN / Unknown Lab Venipuncture / Unknown 07/20/2024 11:49 AM CDT 07/20/2024 12:17 PM CDT Yolanda Greer APRNBOSTON HOME FOR INCURABLES LAB - CH EMISTRY ORDERABLES Performing Organization Address City/[facility]/ZIP Co de Phone Number [address] [address], [place] [phone] * (ABNORMAL) VITAMIN B12 (07/20/2024 11:49 AM CDT) Only the most recent of2 resultswithin the time period is included. Vitamin B12 1,090(H) 213 - 816 pg/mL 07/20/2024 1:18 PM CDT [facility] Blood BLOOD SPECIMEN / Unknown Lab Venipuncture / Unknown 07/20/2024 11:49 AM CDT 07/20/2024 12:17 PM CDT Yolanda Greer [facility] LAB - CH EMISTRY ORDERABLES [address] [address], [facility] [phone] * IRON + TRANSFERRIN PANEL [w/Transferrin Sat % + TIBC] (07/20/2024 11:49 AM CDT) Pathologist [facility] Iron 81 40 - 150 ug/dL 07/20/2024 12:40 PM CDT [facility] Transferrin 246 174 - 382 mg/dL 07/20/2024 12:40 PM CDT [facility] Transferrin Saturation % 26 16 - 50 % 07/20/2024 12:40 PM CDT [facility] TIBC Calculated 308 240 - 450 ug/dL 07/20/2024 12:40 PM CDT [facility] Blood BLOOD SPECIMEN / Unknown Lab Venipuncture / Unknown 07/20/2024 11:49 AM CDT 07/20/2024 12:24 PM CDT Yolanda Greer [facility] LAB - CH EMISTRY ORDERABLES [address] [address], [place] [phone] * IGA BLOOD (07/20/2024 11:49 AM CDT) IgA 147 61 - 356 mg/dL 07/20/2024 12:40 PM CDT [facility] Blood BLOOD SPECIMEN / Unknown Lab Venipuncture / Unknown 07/20/2024 11:49 AM CDT 07/20/2024 12:24 PM CDT Yolanda Greer [facility]IP CORRESPONDENTBOSTON HOME FOR INCURABLES LAB - CH EMISTRY ORDERABLES Performing Organization Address City/[facility]/ZIP Co de Phone Number [address] [address], [facility] [phone] * FERRITIN (07/20/2024 11:49 AM CDT) Ferritin 65 13 - 204 ng/mL 07/20/2024 12:57 PM CDT [facility] Blood BLOOD SPECIMEN / Unknown Lab Venipuncture / Unknown 07/20/2024 11:49 AM CDT 07/20/2024 12:24 PM CDT Yolanda Greer [facility] LAB - CH EMISTRY ORDERABLES Performing Organization Address City/[facility]/ZIP Co de Phone Number [address] [address], [facility] [phone] * PROC DEEP BRAIN STIMULATOR (05/20/2024 12:16 [...] - POINT OF CARE ORDERABLES BELLA Sullivan [place] [address] [facility] [place] [address], [facility] [phone] * NV ANALYS BRN NPGT PRGRMG 15 MIN, NV ANALYS BRN NPGT PRGRMG ADDL 15 (01/13/2024 10:41 AM CDT) Narrative Rissa Vo MD - 01/13/2024 10:41 AM CDT Rissa Vo MD 01/13/2024 10:42 AM Please see procedure notes Rissa Maldonado MD PROCEDURE/GODWIN R SURGICAL ORDERABLES * NV ANALYS BRN NPGT PRGRMG 15 MIN, NV ANALYS BRN NPGT PRGRMG ADDL 15 (12/11/2023 3:30 PM GLASS RIBBON MACHINE OPERATOR ASSISTANT) Narrative Moncho Salcedo APRN-PAGEANT DIRECTOR - 12/11/2023 3:30 PM GLASS RIBBON MACHINE OPERATOR ASSISTANT Moncho Salcedo APRN-PAGEANT DIRECTOR 12/14/2023 9:26 AM Please see office notes for documentation Thanks Moncho Salcedo MEMBERSHIP CORRESPONDENT-PAGEANT DIRECTOR PROCEDURE/MINOR SURGICAL ORDERABLES * NV ANALYS BRN NPGT PRGRMG 15 MIN, NV ANALYS BRN NPGT PRGRMG ADDL 15 (08/05/2023 1:24 PM CDT) Narrative Rissa Vo MD - 08/05/2023 1:24 PM CDT Rissa Vo MD 08/05/2023 1:25 PM Please see procedure notes Rissa Maldonado MD PROCEDURE/GODWIN R SURGICAL ORDERABLES * NV ANALYS BRN NPGT PRGRMG ADDL 15, NV ANALYS BRN NPGT PRGRMG 15 MIN (03/05/2023 [...] within a diagnostic category. Test Performed at: [facility] [address] [place] [address] SAROJ FAUSTIN MD 02/05/2023 12:2 6 PM CDT 02/05/2023 12:27 PM CDT Marquise Adames MD LAB - URINE CHEMISTR Y ORDERABLES [facility] [address] [place] [address] * (ABNORMAL) BASIC METABOLIC PANEL (CALCIUM TOTAL) [...] 10.4 mg/dL [facility] Comment: Test Performed at: [facility] [address] SAROJ FAUSTIN MD 02/05/2023 12:2 6 PM CDT 02/05/2023 12:27 PM CDT Marquise Adames MD LAB - CHEMISTRY SOTERO PATEL Performing Organization Address City/[facility]/ZIP Co de Phone Number [address] [address] * CALCIUM URINE RANDOM (02/05/2023 12:26 PM CDT) [facility] Calcium Random Urine 5.1 mg/dL [facility] Comment: Reference Range Not established Test Performed at: [facility] [address] [place] [address] SAROJ FAUSTIN MD 02/05/2023 12:2 6 PM CDT 02/05/2023 12:27 PM CDT Marquise Adames MD LAB - URINE CHEMISTR Y ORDERABLES Performing Organization Address City/[facility]/ZIP Co de Phone Number [address] [address] * NV ANALYS BRN NPGT PRGRMG 15 MIN, NV ANALYS BRN NPGT PRGRMG ADDL 15 (12/07/2022 2:14 PM GLASS RIBBON MACHINE OPERATOR ASSISTANT) Narrative Rissa Vo MD - 12/07/2022 2:14 PM GLASS RIBBON MACHINE OPERATOR ASSISTANT Rissa Vo MD 12/07/2022 2:14 PM Please see procedure notes Rissa Maldonado MD PROCEDURE/GODWIN R SURGICAL ORDERABLES * NV ANALYS BRN NPGT PRGRMG 15 MIN, NV ANALYS BRN NPGT PRGRMG ADDL 15 (10/29/2022 1:08 PM GLASS RIBBON MACHINE OPERATOR ASSISTANT) Narrative Rissa Vo MD - 10/29/2022 1:08 PM GLASS RIBBON MACHINE OPERATOR ASSISTANT Rissa Vo MD 10/29/2022 1:11 PM Please see procedure notes Rissa Maldonado MD PROCEDURE/GODWIN R SURGICAL ORDERABLES * NV ANALYS BRN NPGT PRGRMG 15 MIN, NV ANALYS BRN NPGT PRGRMG ADDL 15, NV ANALYS BRN NPGT PRGRMG ADDL15 (10/01/2022 1:28 PM [employer] MACHINE OPERATOR ASSISTANT) Narrative Rissa Vo MD - 10/01/2022 1:28 PM [employer] MACHINE OPERATOR ASSISTANT Rissa Vo MD 10/01/2022 1:29 PM Please see procedure notes Rissa Maldonado MD PROCEDURE/GODWIN R SURGICAL ORDERABLES * CARDIAC EKG ORDER (09/01/2022 5:10 PM [employer] MACHINE OPERATOR ASSISTANT) Only the most recent of2 resultswithin the time period is included. Narrative 09/01/2022 5:10 PM [employer] MACHINE OPERATOR ASSISTANT Ordered by an unspecified provider. Scanned Document CARDIAC SERVICES ORD ERABLES * CT HEAD STEREOTACTIC (08/30/2022 4:02 AM [employer] MACHINE OPERATOR ASSISTANT) Only the most recent of3 resultswithin the time period is included. Anatomical Region Laterality Modality Head Computed Tomogra phy 08/30/2022 4:05 AM [employer] MACHINE OPERATOR ASSISTANT Impressions 08/30/2022 12:30 PM [employer] MACHINE OPERATOR ASSISTANT IMPRESSION: 1.Expected postoperative changes from placement of a right frontal approach deep brain stimulator lead. Report dictated by Yuko Redman DO (vice president business & corporate development). I, Shiloh Lofton MD have personally reviewed and interpreted this examination/study. > Interpreting Provider: Shiloh Lofton MD on 08/30/2022 12:30 PM Narrative 08/30/2022 12:30 PM GLASS RIBBON MACHINE OPERATOR ASSISTANT PROCEDURE: CT HEAD WO CONTRAST, DATE/TIME OF EXAM: 08/30/2022 4:03 AM, LOCATION [facility] INDICATION: G25.0: Benign essential tremor ADDITIONAL CLINICAL [...] DATE/TIME OF EXAM: 08/30/2022 4:03 AM, LOCATION [facility] INDICATION: G25.0: Benign essential tremor ADDITIONAL CLINICAL [...] lead. Report dictated by Yuko Redman DO (vice president business & corporate development). IShiloh MD have personally reviewed and interpreted this examination/study. > Interpreting Provider: Shiloh Lofton MD on 08/30/2022 12:30 PM [address] North MD CT ORDERABLES * XR SKULL 3VW OR LESS (08/29/2022 3:28 PM GLASS RIBBON MACHINE OPERATOR ASSISTANT) Only the most recent of2 resultswithin the time period is included. Anatomical Region Laterality Modality Head Radiographic Josephine ging 08/29/2022 3:33 PM GLASS RIBBON MACHINE OPERATOR ASSISTANT Impressions 08/29/2022 4:03 PM GLASS RIBBON MACHINE OPERATOR ASSISTANT IMPRESSION: Placement of a right deep brain stimulator lead via right frontoparietal arden hole. > Dictated by Harmeet Andersen DO (Security Officers And Guards) Fang Gutierrez MD have personally reviewed and interpreted this examination/study. > Interpreting Provider: Fang Varela MD on 08/29/2022 4:03 PM Narrative 08/29/2022 4:03 PM GLASS RIBBON MACHINE OPERATOR ASSISTANT PROCEDURE: XR SKULL 3VW OR LESS, DATE/TIME OF EXAM: 08/29/2022 3:30 PM, LOCATION [facility] INDICATION: Z01.818: Pre-op evaluation ADDITIONAL CLINICAL INFORMATION: [...] LESS, DATE/TIME OF EXAM: 08/29/2022 3:30PM, LOCATION [facility] INDICATION: Z01.818: Pre-op evaluation ADDITIONAL CLINICAL INFORMATION: [...] hole. > Dictated by Harmeet Andersen DO (Security Officers And Guards) IFang MD have personally reviewed and interpreted this examination/study. > Interpreting Provider: Fang Varela MD on 08/29/2022 4:03 PM Shailesh North MD DIAGNOSTIC IMAGING ORDERABLES * XR CHEST 1VW PORTABLE (08/29/2022 2:44 PM GLASS RIBBON MACHINE OPERATOR ASSISTANT) Only the most recent of2 resultswithin the time period is included. Anatomical Region Laterality Modality Chest Radiographic Josephine ging 08/29/2022 3:08 PM GLASS RIBBON MACHINE OPERATOR ASSISTANT Narrative 08/29/2022 3:22 PM GLASS RIBBON MACHINE OPERATOR ASSISTANT PROCEDURE: XR CHEST 1VW PORTABLE, DATE/TIME OF EXAM: 08/29/2022 2:44 PM, LOCATION [facility] INDICATION: G25.0: Benign essential tremor ADDITIONAL CLINICAL [...] intact. Report dictated by Chris Rizvi MD (vice president business & corporate development). Sravanthi Gutierrez MD have personally reviewed and interpreted this examination/study. > Interpreting Provider: Sravanthi Ellis MD on 08/29/2022 3:22 PM Procedure Note Karin Ellis MD - 08/29/2022 PROCEDURE: XR CHEST 1VW PORTABLE, DATE/TIME OF EXAM: 08/29/2022 2:44PM, LOCATION [facility] INDICATION: G25.0: Benign essential tremor ADDITIONAL CLINICAL [...] intact. Report dictated by Chris Rizvi MD (vice president business & corporate development). Sravanthi Gutierrez MD have personally reviewed and interpreted this examination/study. > Interpreting Provider: Sravanthi Ellis MD on 08/29/2022 3:22 PM Shailesh North MD DIAGNOSTIC IMAGING ORDERABLES * XR NECK SOFT TISSUE (08/29/2022 2:43 PM GLASS RIBBON MACHINE OPERATOR ASSISTANT) Only the most recent of2 resultswithin the time period is included. Anatomical Region Laterality Modality Head Radiographic Josephine ging 08/29/2022 3:25 PM GLASS RIBBON MACHINE OPERATOR ASSISTANT Impressions 08/29/2022 3:39 PM GLASS RIBBON MACHINE OPERATOR ASSISTANT IMPRESSION: Postoperative changes of right deep brain stimulator lead placement via right frontoparietal approach. > Dictated by Harmeet Andersen DO (Security Officers And Guards) Fang Gutierrez MD have personally reviewed and interpreted this examination/study. > Interpreting Provider: Fang Varela MD on 08/29/2022 3:39 PM Narrative 08/29/2022 3:39 PM GLASS RIBBON MACHINE OPERATOR ASSISTANT PROCEDURE: XR NECK SOFT TISSUE, DATE/TIME OF EXAM: 08/29/2022 2:44 PM, LOCATION [facility] INDICATION: Z96.89: S/P deep brain stimulator placement [...] DATE/TIME OF EXAM: 08/29/2022 2:44 PM, LOCATION [facility] INDICATION: Z96.89: S/P deep brain stimulator placement [...] approach. > Dictated by Harmeet Andersen DO (Security Officers And Guards) I, Fang Varela MD have personally reviewed and interpreted this examination/study. > Interpreting Provider: Fang Varela MD on 08/29/2022 3:39 PM Shailesh North MD DIAGNOSTIC IMAGING ORDERABLES * FL OARM SURGERY (08/29/2022 11:56 AM GLASS RIBBON MACHINE OPERATOR ASSISTANT) Only the most recent of2 resultswithin the time period is included. Narrative [facility] - 08/29/2022 11:58 AM GLASS RIBBON MACHINE OPERATOR ASSISTANT Fluoroscopy was used for this exam in the OR. Please see the Operative report. Shailesh North MD FLUOROSCOPY ORDERAB LES [facility] * ETT LINE PERFORMABLE (08/29/2022 11:47 AM GLASS RIBBON MACHINE OPERATOR ASSISTANT) Narrative Yudi Santana APRN-CRNA - 08/29/2022 11:47 AM GLASS RIBBON MACHINE OPERATOR ASSISTANT Yudi Santana APRN-CRNA 08/29/2022 11:57 AM Endotracheal Tube Placement: Patient Location: OR. Intubation Event Date/Time: 08/29/2022 11:47 AM Procedure: intubation (49023). Procedure Section: Sedation: under general anesthesia. Indications [...] TYPE + SCREEN PANEL (08/29/2022 6:19 AM GLASS RIBBON MACHINE OPERATOR ASSISTANT) Only the most recent of2 resultswithin the time period is included. Antibody Screen NEG 7:15 AM GLASS RIBBON MACHINE OPERATOR ASSISTANT [facility] B[facility]OD [facility] LAB ABO Rh A POS 08/29/2022 7:15 AM GLASS RIBBON MACHINE OPERATOR ASSISTANT [facility] Blood Bank BLOOD SPECIMEN / Unknown Venipuncture / Unknown 08/29/2022 6:19 AM GLASS RIBBON MACHINE OPERATOR ASSISTANT 08/29/2022 6:31 AM GLASS RIBBON MACHINE OPERATOR ASSISTANT [employer] CORRESPONDENT-PAGEANT DIRECTOR LAB - BLOOD B ANK ORDERABLES [facility] LAB [address] [place] [address], [facility] [phone] * PTT [facility] (08/15/2022 11:57 AM CDT) Only the most recent of2 resultswithin the time period is included. APTT 30.8 23.0 - 38.4 Seconds 08/15/2022 1:10 PM CDT [facility] Comment:Suggested therapeuti c range for full dose I.V. unfractionated heparin therapy for venous thromboembolism is 71 to 109 seconds. Blood BLOOD SPECIMEN / Unknown Lab Venipuncture / Unknown 08/15/2022 11:57 AM CDT 08/15/2022 12:42 PM CDT Shailesh North MD LAB - COAGULATION O NATAN Performing Organization Address City/[facility] Co de Phone Number [facility] [address] [place] [phone], [facility] [phone] * PT-INR [facility] (08/15/2022 11:57 AM CDT) Only the most recent of2 resultswithin the time period is included. PT 13.9 12.1 - 14.8 Seconds 08/15/2022 1:10 PM CDT [facility] INR 1.1 See Comment 08/15/2022 1:10 PM CDT [facility] Comment:The suggested therap eutic range for standard coumadin (warfarin) therapy is an INR of 2.0-3.0. For high-risk patients (Mechanical Mitral Valve Prosthesis, etc.), the suggested prophylactic therapeutic range is an INR of 2.5-3.5. Blood BLOOD SPECIMEN / Unknown Lab Venipuncture / Unknown 08/15/2022 11:57 AM CDT 08/15/2022 12:42 PM CDT Shailesh North MD LAB - COAGULATION O NATAN [facility] [address] [place] [address], [facility] [phone] * XR CHEST 2VW (08/15/2022 11:26 AM CDT) Only the most recent of2 resultswithin the time period is included. Anatomical Region Laterality Modality Chest Radiographic Josephine ging 08/15/2022 11:3 8 AM CDT Narrative 08/15/2022 4:38 PM CDT PROCEDURE: XR CHEST 2VW, DATE/TIME OF EXAM: 08/15/2022 11:27 AM, LOCATION [facility] INDICATION: Z01.818: Pre-op testing COMPARISON: Chest x-ray 03/24/2022 FINDINGS/IMPRESSION: Left-sided battery pack/degenerative device with the lead coursing superiorly into the soft tissues of the neck. Distal end of the lead is not seen There is no focal consolidation, pleural effusion, or pneumothorax. The cardiomediastinal silhouette is normal. The visible bony thorax is intact. Report dictated by Isaiah Keenan MD, MD (vice president business & corporate development). Kylie Gutierrez MD have personally reviewed and interpreted this examination/study. > Interpreting Provider: Kylie Horn MD on 08/15/2022 4:38 PM Procedure Note Kylie Horn MD - 08/15/2022 PROCEDURE: XR CHEST 2VW, DATE/TIME OF EXAM: 08/15/2022 11:27 AM, LOCATION [facility] INDICATION: Z01.818: Pre-op testing COMPARISON: Chest x-ray 03/24/2022 FINDINGS/IMPRESSION: Left-sided battery pack/degenerative device with the lead coursing superiorly into the soft tissues of the neck. Distal end of the lead isnot seen There is no focal consolidation, pleural effusion, or pneumothorax. The cardiomediastinal silhouette is normal. The visible bony thorax isintact. Report dictated by Isaiah Keenan MD, MD (vice president business & corporate development). Kylie Gutierrez MD have personally reviewed and interpreted this examination/study. > Interpreting Provider: Kylie Horn MD on 08/15/2022 4:38 PM Shailesh North MD DIAGNOSTIC IMAGING ORDERABLES * EKG 12-LEAD (08/15/2022 10:16 AM CDT) Only the most recent of2 resultswithin the time period is included. [facility] Ventricular Rate 74 BPM [facility] MUSE Atrial Rate 74 BPM [facility] M[facility] P-R Interval 184 ms [facility] QRS Duration ms 72 ms [facility] MUSE Q-T Interval ms 378 ms [facility] QTC Calculation (Bezet) 419 ms [facility] MUSE Calculated P [place] 65 degrees [facility] M[facility] Calculated R [place] 48 degrees [facility] M[facility] Calculated T [place] 69 degrees [facility] MUSE Interpretation EKG NORMAL SINUS RHYTHM NONSPECIFIC ST & T WAVE CHANGES BORDERLINE ECG WHEN COMPARED WITH ECG OF 12-MAR-2022 14:09, NO SIGNIFICANT CHANGE WAS FOUND Confirmed by SUE FERNÁNDEZ, TRA ([id number]) on 08/16/2022 7:20:16 PM [facility] MUSE 08/15/2022 10:1 6 AM CDT 08/16/2022 7:20 PM CDT Shailesh North MD ECG ORDERABLES [facility] [place] TSH REFLEX FREE T4 (08/06/2022 9:41 AM CDT) [facility] TSH 3.348 0.350 - 4.940 uIU/mL 08/06/2022 12:01 PM CDT [facility] Blood BLOOD SPECIMEN / Unknown Lab Venipuncture / Unknown 08/06/2022 9:41 AM CDT 08/06/2022 9:55 AM CDT Dre Groves MD LAB - CHEMISTRY SOTERO PATEL [facility] [address] [place] [phone], [facility] [phone] * T4 FREE (08/06/2022 9:41 AM CDT) [facility] T4 Free 0.9 0.7 - 1.5 ng/dL 08/06/2022 12:01 PM CDT [facility] Blood BLOOD SPECIMEN / Unknown Lab Venipuncture / Unknown 08/06/2022 9:41 AM CDT 08/06/2022 9:55 AM CDT rDe Groves MD LAB - CHEMISTRY SOTERO PATEL [facility] Organization Address City/State/ZIP Co de Phone Number [facility] [address] [place] [address], [facility] [phone] * [place] ANALYS BRN NPGT PRGRMG 15 MIN (06/17/2022 9:32 PM CDT) Narrative Rissa Vo MD - 06/17/2022 9:32 PM CDT Rissa Vo MD 06/17/2022 9:33 PM Please see procedure notes Rissa Maldonado MD PROCEDURE/GODWIN R SURGICAL ORDERABLES * NV ANALYS BRN NPGT PRGRMG 15 MIN, [place] ANALYS BRN NPGT PRGRMG ADDL 15, [place] ANALYS BRN NPGT PRGRMG ADDL15 (04/17/2022 6:16 [...] arden hole. Dictated by Facundo Sue MD (vice president business & corporate development). I, Dr. KYLIE HORN have personally reviewed [...] arden hole. Dictated by Facundo Sue MD (vice president business & corporate development). I, Dr. KYLIE HORN have personally reviewed [...] Event Date/Time: 03/24/2022 1:41 PM Procedure: intubation (80282). Procedure Section: Sedation: under general anesthesia. Indications [...] Peripheral IV Line Placement: Procedure: IV start ([id number]). Procedure Section: Orientation: right Location: foot Catheter [...] A POS 03/17/2022 8:2 4 AM CDT [facility] BLOOD BANK LAB Blood Bank BLOOD SPECIMEN / Unknown Lab Venipuncture / Unknown 03/17/2022 7:32 AM CDT 03/17/2022 7:44 AM CDT Provider Unknown LAB - BLOOD BANK ORD ERABLES [facility] LAB [address] [place] [address], [facility] [phone] * URINALYSIS W/MICROSCOPIC REFLEX TO CULTURE (03/12/2022 3:30 PM CDT) Color UA Yellow Straw, Yellow 03/12/2022 4:25 PM CDT [facility] Clarity UA Clear Clear 03/12/2022 4:25 PM CDT [facility] Specific [place] UA 1.006 1.005 - 1.030 03/12/2022 4:25 PM [facility] pH UA 6.0 5.0 - 8.0 pH 03/12/2022 4:25 PM [facility] Protein UA Negative Negative 03/12/2022 4:25 PM [facility] Glucose UA Negative Negative 03/12/2022 4:25 PM [facility] Ketone UA Negative Negative 03/12/2022 4:25 PM T [facility] Bilirubin UA Negative Negative 03/12/2022 4:25 PM T [facility] Blood UA Negative Negative 03/12/2022 4:25 PM [facility] Nitrite UA Negative Negative 03/12/2022 4:25 PM [facility] Leukocyte Esterase Negative Negative 03/12/2022 4:25 PM [facility] Urobilinogen UA Negative Negative mg/dL 03/12/2022 4:25 PM [facility] RBC UA 0-2 None Seen, 0-2, 3-5 /HPF 03/12/2022 4:25 PM T [facility] WBC UA 0-5 None Seen, 0-5 /HPF 03/12/2022 4:25 PM [facility] Squamous Epithelial Cells UA 0-2 None Seen, 0-2, 3-5 /HPF 03/12/2022 4:25 PM T [facility] Urine URINE SPECIMEN OBTAINED BY CLEAN CATCH PROCEDURE / Unknown Collection / Unknown 03/12/2022 3:30 PM CDT 03/12/2022 4:15 PM CDT Narrative [facility] - 03/12/2022 4:25 PM CDT Culture Not Indicated Shailesh North MD LAB - URINALYSIS OR DERABLES [facility] [address] [place] [phone], [facility] [phone] * XR FOOT RIGHT 3VW OR MORE [...] MRI BRAIN WWO CONTRAST (12/19/2021 7:34 AM GLASS RIBBON MACHINE OPERATOR ASSISTANT) Anatomical Region Laterality Modality Head Magnetic Resonan ce 12/19/2021 11:1 7 AM GLASS RIBBON MACHINE OPERATOR ASSISTANT Impressions 12/19/2021 11:42 AM GLASS RIBBON MACHINE OPERATOR ASSISTANT IMPRESSION: No acute intracranial abnormality. I, Dr. GOYO DELACRUZ have personally reviewed and interpreted this examination/study. This report was electronically signed by GOYO DELACRUZ on 12/19/2021 11:42 AM . Narrative 12/19/2021 11:42 AM GLASS RIBBON MACHINE OPERATOR ASSISTANT Contrast enhanced MRI of brain CLINICAL INFORMATION: [...] CREATININE - POCT INTERFACED (12/19/2021 6:40 AM GLASS RIBBON MACHINE OPERATOR ASSISTANT) Creatinine POCT 0.73 0.30 - 1.30 mg/dL 12/19/2021 6:43 AM GLASS RIBBON MACHINE OPERATOR ASSISTANT [facility] eGFR >90 >90 mL/min/1.7 3 m2 12/19/2021 6:43 AM GLASS RIBBON MACHINE OPERATOR ASSISTANT [facility] Blood BLOOD SPECIMEN / Unknown 12/19/2021 6:40 AM GLASS RIBBON MACHINE OPERATOR ASSISTANT 12/19/2021 6:43 AM GLASS RIBBON MACHINE OPERATOR ASSISTANT Rissa Maldonado MD LAB - POINT OF CARE ORDERABLES [facility] [address] [place] [address], [facility] [phone] Care Teams Legal Billing Coordinator Relationship Specialty Start Date End Date Kerry Coffman DO [address] OF [facility] [place] [address] PCP - General Internal Medicine 12/15/23
--- OUTSIDE RECORDS SUMMARY | 2024-12-13 22:37 | XMS_ITS | Encounter Summary ---
Author Organization [facility] Health Address [address] [facility] [place] [address] Care Team Providers Care Custom Van Converter Name Role Phone MetamoraKerry reddy Primary Care Provider [phone] Encounter Details Date Type Department Care Team (Late st Contact Info) Description 02/10/2024 Telephone [facility] - Neurology [address] [facility], [place] [address] Hyacinth Arriaga, NETWORK INTELLIGENCE ANALYST-DISPUTE COORDINATOR [address] [place] [address] [place] [address] Social History Tobacco Use Types Packs/Day Years Used Date Smoking Tobacco: Never Assessed Sex and Gender Information Value Date Recorded Sex Assigned at Female 09/16/2024 2:41 PM TRAVEL TICKETING REVIEWER Gender Identity Female 09/16/2024 2:41 PM TRAVEL TICKETING REVIEWER Sexual Orientation Straight 09/16/2024 2: 41 PM TRAVEL TICKETING REVIEWER documented as of this encounter Functional Status [...] st Contact Info) Description 12/15/2024 2:20 PM TRAVEL TICKETING REVIEWER Office Visit [facility] - Endocrinology [address] [place] [phone] Marquise Adames MD [address] [place] [address] [place] [address] 01/04/2025 9:15 AM CDT Office Visit [facility] - Orthopedics [address] [place] [phone] Cornelio Lima MD [facility] [place] [address] 01/25/2025 10:30 AM CDT Office Visit [facility] - GI [address] [place] [phone] Yolanda Greer, NETWORK INTELLIGENCE ANALYST-DISPUTE COORDINATOR [facility] [place] [phone] 02/09/2025 11:15 AM CDT Office Visit [facility] - Ophthalmology [address] [place] [phone] Percy Matute MD [address] [place] [address] DEPT OF [place] [phone] 02/09/2025 4:00 PM CDT Office Visit [facility] - Allergy [address] [place] [phone] Papito Morales MD [address] [place] [address] 2L DIV OF ALLERGY/[place] [address] 03/02/2025 1:00 PM CDT Office Visit [facility] - Neurology [address] [place] [address], [place] [address] Moncho Salcedo, NETWORK INTELLIGENCE ANALYST-DISPUTE COORDINATOR [address] [place] [address] 1L DIV [place] [phone] 03/20/2025 11:00 AM CDT Office Visit [facility] - Internal Med [address] [place] [phone] Kerry Coffman DO [address] [place] [address] 2L DIV OF GEN INTERNAL [place] [address] 04/13/2025 3:00 PM CDT Office Visit [facility] - Allergy [address] [place] [phone] Papito Morales MD [address] [place] [address] 2L DIV [place] ALLERGY/[place] [address] documented as of this encounter Visit Diagnoses Not on filedocumented in this encounter Additional Health Concerns Infection Onset Date Last Indicated Resolved Time CDIFF Under Investigation 07/20/2024 07/20/2024 4:33 AM CDT CDIFF Under Investigation 10/26/2024 11/07/2024 4:33 AM TRAVEL TICKETING REVIEWER CDIFF Under Investigation 11/07/2024 11/07/2024 5:38 PM TRAVEL TICKETING REVIEWER documented as of this encounter Care Teams Custom Van Converter Relationship Specialty Start Date End Date Kerry Coffman DO [address] [place] [address] 2L DIV OF GEN INTERNAL [place] [address] PCP - General Internal Medicine 12/15/23 documented as of this encounter
--- OUTSIDE RECORDS SUMMARY | 2024-12-13 22:37 | XMS_ITS | Encounter Summary ---
Author Organization [facility] Address [address] [place] [address] Care Team Providers Care Bpm Solution Architect Name Role Phone Kerry Coffman Primary Care Provider [phone] Reason for Visit * Reason Onset Date Comments Appointment 10/20/2024 Encounter Details Date Type Department Care Team (Late st Contact Info) Description 10/20/2024 Telephone [facility] - Centralized Scheduling [address] [place] [phone] Moncho Salcedo, AERIAL LINEMAN-PICKER MACHINE OPERATOR [address] [phone] Appointment Social History Tobacco Use [...] Sex Assigned at Female 09/16/2024 2:41 PM STEREO MAP PLOTTER OPERATOR Gender Identity Female 09/16/2024 2:41 PM STEREO MAP PLOTTER OPERATOR Sexual Orientation Straight 09/16/2024 2: 41 PM STEREO MAP PLOTTER OPERATOR documented as of this encounter Functional [...] to schedule for a Short Procedure with FOOD CHEMIST Settu in November. EO MAP PLOTTER OPERATOR documented in this encounter Plan of Treatment Upcoming Encounters Date Type Department Care Team (Late st Contact Info) Description 12/15/2024 2:20 PM STEREO MAP PLOTTER OPERATOR Office Visit [facility] - Endocrinology [address] [place] [phone] Marquise Adames MD [address] [place] [address] [place] [address] 01/04/2025 9:15 AM CDT Office Visit [facility] - Orthopedics [address] [place] [phone] Cornelio Lima MD [facility] [place] [address] 01/25/2025 10:30 AM CDT Office Visit [facility] - GI [address] [place] [phone] Yolanda Greer, AERIAL LINEMAN-PICKER MACHINE OPERATOR [address] [place] [phone] 02/09/2025 11:15 AM CDT [facility] Ophthalmology [address] [place] [phone] Percy Matute MD [address] [place] [address] [place] [phone] 02/09/2025 4:00 PM CDT Office Visit [facility] - Allergy [address] [place] [phone] Papito Morales MD [address] [place] [address] 2L DIV OF ALLERGY/[place] [address] 03/02/2025 1:00 PM CDT Office Visit [facility] - Neurology [address] [place] [address], [place] [phone] Moncho Salcedo APRN-ARELY [address] [place] [address] [address] [place] [phone] 03/20/2025 11:00 AM CDT Office Visit [facility] - Internal Med [address] [place] [phone] Kerry Coffman DO [address] [place] [address] 2L [place] [address] 04/13/2025 3:00 PM CDT Office Visit [facility] - Allergy [address] [place] [phone] Papito Morales MD [address] [place] [address] 2L DIV OF ALLERGY/[place] [address] documented as of this encounter Goals Goal Patient Goal Type Associated Problems Recent Progress Patient-Stated? Author Medication Management General On track( 025 10:42 AM STEREO MAP PLOTTER OPERATOR) Marion Scott, RN Note: Expected end date: ongoing Interventions: Take all medications as prescribed documented as of this encounter Visit Diagnoses Not on filedocumented in this encounter Additional Health Concerns Infection Onset Date Last Indicated Resolved Time CDIFF Under Investigation 10/26/2024 11/07/2024 4:33 AM STEREO MAP PLOTTER OPERATOR CDIFF Under Investigation 11/07/2024 11/07/2024 5:38 PM STEREO MAP PLOTTER OPERATOR documented as of this encounter Care Teams Bpm Solution Architect Relationship Specialty Start Date End Date Kerry Coffman DO [address] OF [facility] [place] [address] PCP - General Internal Medicine 12/15/23 documented as of this encounter
--- OUTSIDE RECORDS SUMMARY | 2024-12-13 22:37 | XMS_ITS | Clinical Summary ---
Author Organization [facility] Address [address] [place] [address] Phone Care Team Providers Care Cotton Broker Name Role Phone Joan Robins MD Primary [...] on file Legal Sex Female 10:36 AM FILAMENT CUTTER Gender Identity Not on file Sexual Orientation Not on file Last Filed Vital Signs Vital Sign Reading Time Taken Comments Blood Pressure 125/81 10/21/2018 12:15 PM FILAMENT CUTTER Pulse 72 10/21/2018 12:25 PM FILAMENT CUTTER Temperature 36.3 C (97.3 F) 10/21/2018 11:32 AM FILAMENT CUTTER Respiratory Rate 18 10/21/2018 12:25 PM FILAMENT CUTTER Oxygen Saturation 99% 10/21/2018 12:25 PM FILAMENT CUTTER Inhaled Oxygen Concentration - - Weight 60.3 kg (133 lb) 10/21/2018 11:32 AM FILAMENT CUTTER Height 170.2 cm (5' 7 ) 10/21/2018 11:32 AM FILAMENT CUTTER Body Mass Index 20.83 10/21/2018 11:32 AM FILAMENT CUTTER Plan of Treatment Health Maintenance Due Date [...] age to complete this topic Insurance [employer]ID [employer] Care Teams Cotton Broker Relationship Specialty Start Date End Date Joan Robins MD [address] [phone] PCP - General Internal Medicine 10/21/18
--- OUTSIDE RECORDS SUMMARY | 2024-12-13 22:38 | XMS_ITS | Clinical Summary ---
Author Organization [facility] Address [address] [place] [address] Care Team Providers Care Ad Setter Name Role Phone Silver PeakKerry reddy Primary Care Provider [phone] Source Comments [facility],non-owned Affiliates and Associated Physician Practices is amultiple site organization consisting of ambulatory clinics and hospital sitesin [place], [place], [place] and [place]. This disclosure is being madepursuant to the Care Everywhere program and may not contain all information available regarding this patient. Last updated 18.[facility] Allergies Active Allergy Reactions Criticality Noted Date [...] tabletIndications: Bipolar affective disorder, remission status unspecified ([facility]) Take 1 (one) tablet by mouth 2 [...] route every 30 days Active blood glucose ([employer] Ultra) test stripIndications:T ype 2 diabetes mellitus with hyperglycemia, without long-term current use of insulin ([facility]) USE 1 STRIP TO CHECK GLUCOSE TWICE [...] rhinitis, unspecified seasonality, unspecified trigger,Chronic daily headache [place] 2 (two) sprays into each nostril once daily 16 g 6 08/11/2024 Active azelastine (Astelin) 0.1 % nasal sprayIndications:C hronic rhinitis,Allergic rhinitis, unspecified seasonality, unspecified trigger,Chronic daily headache [place] 1 (one) spray into each nostril 2 [...] Only [facility] - Neurology [address], [place] [address] Moncho Salcedo APRN-ARELY Cognitive decline 12/08/2024 9:17 AM BIOMECHANICAL ENGINEER - 12/08/2024 11:59 PM [facility] Hospital Encounter [facility]AN [address] [place] [address] Cornelio Lima MD Discharge Disposition: Home or Self Care 12/08/2024 9:17 AM BIOMECHANICAL ENGINEER - 12/08/2024 11:59 PM BIOMECHANICAL ENGINEER Hospital Encounter [facility] CAT SCAN [address] [place] [address] Cornelio Lima MD Discharge Disposition: Home or Self Care 12/08/2024 7:08 AM BIOMECHANICAL ENGINEER - 12/08/2024 9:16 AM BIOMECHANICAL ENGINEER Hospital Encounter [facility] DI[facility]NOSTIC RAD [address] [place] [address] Cornelio Lima MD Discharge Disposition: Home or Self Care 12/08/2024 Travel 11/28/2024 Telephone [facility] - Neurology [address] [place] [phone] Moncho Salcedo APRN-CHIMNEY CONSTRUCTION SUPERVISOR Medication Prior Auth Request (Emgality) 11/23/2024 10:58 AM BIOMECHANICAL ENGINEER - 11/23/2024 11:59 PM BIOMECHANICAL ENGINEER Hospital Encounter [facility] RAD [address] [place] [address] Cornelio Lima MD Discharge Disposition: Home or Self Care 11/23/2024 10:58 AM BIOMECHANICAL ENGINEER - 11/23/2024 11:59 PM BIOMECHANICAL ENGINEER Hospital Encounter [facility] [address] [place] [address] Cornelio Lima MD Discharge Disposition: Home or Self Care 11/23/2024 10:00 AM BIOMECHANICAL ENGINEER Office Visit [facility] - Orthopedics [address] [place] [phone] Cornelio Lima MD Lumbar spine pain (Primary Dx); Lumbar spondylosis; Spondylolisthesis of lumbar region; Degenerative scoliosis in adult patient; Cervical spondylosis with myelopathy; Cervicalgia 11/23/2024 9:49 AM BIOMECHANICAL ENGINEER - 11/23/2024 10:57 AM BIOMECHANICAL ENGINEER Hospital Encounter [facility] [address] [place] [address] Cornelio Lima MD Discharge Disposition: Home or Self Care 11/23/2024 Travel 11/14/2024 Telephone [facility] - Neurology [address] [place] [phone] Moncho Salcedo APRN-CNP Medication Clarification (Emgaltiy) 11/11/2024 10:15 AM BIOMECHANICAL ENGINEER - 11/11/2024 11:00 AM BIOMECHANICAL ENGINEER Surgery [facility] ENDOSCOPY [address] [place] [address] Sixto Cornell MD COLONOSCOPY SCREEN--extended prep 11/11/2024 10:00 AM BIOMECHANICAL ENGINEER Anesthesia Event [facility] ENDOSCOPY [address] [place] [address] Doug Forrester MD Dobbs, Kristin L, APRN-DIRECTOR OF COMMUNITY CENTER 11/11/2024 8:14 AM BIOMECHANICAL ENGINEER - 11/11/2024 11:24 AM BIOMECHANICAL ENGINEER Hospital Encounter [facility] OP [address] [place] [phone] Sixto Cornell MD Surgery General Discharge Disposition: Home or Self Care 11/11/2024 Travel 11/04/2024 Patient Outreach [facility]COPY [address] [place] [phone] Samantha Monterroso, RN 11/02/2024 3:30 PM BIOMECHANICAL ENGINEER Office Visit [facility] - Neurology [address] [place] [phone] Moncho Salcedo APRN-CNP Intractable 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 (Primary Dx) 11/02/2024 Travel 10/26/2024 10:30 AM BIOMECHANICAL ENGINEER Office [facility] GI [address] [place] [phone] Yolanda Greer APRN-CNP Chronic diarrhea (Primary Dx) 10/26/2024 Travel 10/25/2024 Orders Only [facility] ENDOSCOPY [address] [place] [phone] Wendy Humphrey, RN 10/24/2024 Travel 10/20/2024 Telephone [facility] - Centralized Scheduling [address] [place] [address] Moncho Salcedo APRN-CNP Appointment 10/06/2024 Orders Only [facility] OP [address] [place] [address] Alok Christie III, MD Spondylolisthesis at L4-L5 level 09/27/2024 Travel 09/27/2024 Telephone [facility] Neurology [address] [place] [phone] Rissa Vo MD Med Question 09/19/2024 9:05 AM BIOMECHANICAL ENGINEER - 09/19/2024 11:59 PM BIOMECHANICAL ENGINEER Hospital Encounter [facility] RAD OP [address] [place] [address] Kerry Coffman DO Discharge Disposition: Home or Self Care 09/19/2024 8:00 AM BIOMECHANICAL ENGINEER Office Visit [facility] - Internal Med [address] [place] [address], [place] [address] Kerry Coffman DO Routine general medical examination at health care facility (Primary Dx); Acute bilateral low back pain without sciatica; Acute pain of left knee; Type 2 diabetes mellitus with hyperglycemia, without long-term current use of insulin ([facility]); Chronic diarrhea; Migraine without aura and without status migrainosus, not intractable; Benign essential tremor; Bipolar affective disorder, remission status unspecified ([facility]); Rheumatoid arthritis with negative rheumatoid factor, involving unspecified site ([facility]) 09/19/2024 Travel 09/15/2024 Refill [facility] Neurology [address] [place] [phone] Rissa Vo MD MEDICATION REFILL from Last [...] Sex Assigned at Female 09/16/2024 2:41 PM BIOMECHANICAL ENGINEER Gender Identity Female 09/16/2024 2:41 PM BIOMECHANICAL ENGINEER Sexual Orientation Straight 09/16/2024 2: 41 PM BIOMECHANICAL ENGINEER Last Filed Vital Signs Vital Sign Reading Time Taken Comments Blood Pressure 114/82 12/08/2024 12:30 PM BIOMECHANICAL ENGINEER Pulse 59 12/08/2024 12:30 PM BIOMECHANICAL ENGINEER Temperature 36.6 C (97.8 F) 12/08/2024 10:30 AM BIOMECHANICAL ENGINEER Respiratory Rate 14 12/08/2024 12:30 PM BIOMECHANICAL ENGINEER Oxygen Saturation 96% 12/08/2024 12:30 PM BIOMECHANICAL ENGINEER Inhaled Oxygen Concentration - - Weight 66.9 kg (147 lb 8 oz) 12/08/2024 8:01 AM BIOMECHANICAL ENGINEER Height 167.6 cm (5' 6 ) 12/08/2024 8:01 AM BIOMECHANICAL ENGINEER Body Mass Index 23.81 12/08/2024 8:01 AM BIOMECHANICAL ENGINEER Plan of Treatment Upcoming Encounters Date Type Department Care Team (Late st Contact Info) Description 12/15/2024 2:20 PM BIOMECHANICAL ENGINEER Office Visit [facility] - Endocrinology [address] [place] [address] [place] [address] Marquise Adames MD [address] [place] [address] [place] [address] 01/04/2025 9:15 AM CDT Office [facility] Orthoped[facility] [address] [place] [address] [place] [address] Cornelio Lima MD [address] [place] [address] 01/25/2025 10:30 AM CDT Office Visit [facility] - GI [address] [place] [address] [place] [address] Yolanda Greer, MICROPHONE OPERATOR-CHIMNEY CONSTRUCTION SUPERVISOR [address] [place] [address] 02/09/2025 11:15 AM CDT Office Visit [facility] - Ophthalmology [address] [place] [address], [place] [address] Percy Matute MD [address] [place] [address] [place] [phone] 02/09/2025 4:00 PM CDT Office Visit [facility] - Allergy [address] [place] [phone] Papito Morales MD [address] [place] [address] 2L DIV OF ALLERGY/[place] [address] 03/02/2025 1:00 PM CDT Office Visit [facility] - Neurology [address] [place] [phone] Moncho Salcedo APRN-CHIMNEY CONSTRUCTION SUPERVISOR [address] [place] [address] [address] [place] [phone] 03/20/2025 11:00 AM CDT Office Visit [facility] - Internal Med [address] [place] [phone] Kerry Coffman DO [address] [place] [address] 2L DIV [place] [address] 04/13/2025 3:00 PM CDT Office Visit [facility] - Allergy [address] [place] [phone] Papito Morales MD [address] [place] [address] 2L DIV OF ALLERGY/[place] [address] Health Maintenance Due Date Last Done Comments [...] Management General On track( 025 10:42 AM BIOMECHANICAL ENGINEER) No Marion Mera, RN Note: Expected end date: ongoing Interventions: Take all medications as prescribed Medical Devices Implanted Type Area Porcelain Turner Device Identifier Shelf Expiration Date Model / Serial / Lot Slnt Dura Duraseal Pg Trilysine Amine 5 Implanted:Qty: 1 on 03/17/2022 by Jackelyn Yang MD at [facility] Left: Cranial [employer] 08/11/2023 [id number] / / [id number] Guardian Branial Yuriy Hole Cover Sys Implanted:Qty: 1 on 03/17/2022 by Jackelyn Yang MD at [facility] Left: Cranial [employer] 01/01/2024 6010 / / [id number] Directional Lead Implanted:Qty: 1 on 03/17/2022 by Shailesh North MD at [facility] Left: Cranial [employer] 09/25/2023 6172 / [id number] / Lead Extension Implanted:Qty: 1 on 03/24/2022 by Shailesh North MD at [facility] Left: Neck [employer] 01/15/2024 [id number] / / [id number] Generator Implanted:Qty: 1 on 03/24/2022 by Shailesh North MD at [facility] Left: Chest [employer] 11/19/2023 6662 / / [id number] [place] Spnl 140mm 6.35mm Ti Str Implanted:Qty: 1 on 08/29/2022 by Shailesh North MD at [facility] Right: Scalp [employer] 04/02/2024 6010 / / [employer] Dbs System Implanted:Qty: 1 on 08/29/2022 by Joshua Gill MD at [facility] Right: Brain 03/19/2024 6172 / [id number] / Description:cost per Levar [employer] Dbs System Implanted:Qty: 1 on 08/29/2022 by Joshua Gill MD at [facility] Right: Chest Wall 04/23/2024 6373 / [id number] / Description:cost per levar Procedures Procedure Name Priority Date/Time Associated Diagnosis Comments FL MYELOGRAM 2 OR MORE REGIONS Routine 12/08/2024 10:27 AM BIOMECHANICAL ENGINEER Lumbar spine pain CT LUMBAR POST MYELOGRAM Routine 12/08/2024 10:25 AM BIOMECHANICAL ENGINEER Lumbar spine pain CT CERVICAL POST MYELOGRAM Routine 12/08/2024 10:25 AM BIOMECHANICAL ENGINEER Lumbar spine pain XR SPINE ENTIRE 2 OR 3VW Routine 11/23/2024 11:09 AM BIOMECHANICAL ENGINEER Lumbar spine pain XR CERVICAL SPINE 2 OR 3VW Routine 11/23/2024 11:06 AM BIOMECHANICAL ENGINEER Lumbar spine pain XR LUMBAR SPINE 2 OR 3VW Routine 11/23/2024 10:00 AM BIOMECHANICAL ENGINEER Lumbar spine pain PATHOLOGY TISSUE Routine 11/11/2024 10:1 6 AM BIOMECHANICAL ENGINEER Screen for colon cancer CA COLOREC CANC SCRN,SCOPY NOT HI RISK 11/11/2024 9:55 AM BIOMECHANICAL ENGINEER Screen for colon cancer ENDOSCOPY, COLON, SCREENING Routine 11/11/2024 9:52 AM BIOMECHANICAL ENGINEER GLUCOSE - POINT OF CARE Routine 11/11/2024 9:19 AM BIOMECHANICAL ENGINEER CALPROTECTIN FECAL Routine 11/07/2024 3: 52 PM BIOMECHANICAL ENGINEER Chronic diarrhea CULTURE STOOL PANEL Routine 11/07/2024 3 :52 PM BIOMECHANICAL ENGINEER Chronic diarrhea C DIFFICILE CYTOTOXIN Routine 11/07/2024 3:51 PM BIOMECHANICAL ENGINEER Chronic diarrhea PROC DEEP BRAIN STIMULATOR Routine 11/03/2024 2:08 PM BIOMECHANICAL ENGINEER Intractable 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 XR LUMBAR SPINE 4VW OR MORE Routine 09/19/2024 9:18 AM BIOMECHANICAL ENGINEER Acute bilateral low back pain without sciatica XR KNEE LEFT 4VW OR MORE Routine 09/19/2024 9:18 AM BIOMECHANICAL ENGINEER Acute pain of left knee COMPREHENSIVE METABOLIC [...] 2 or More Regions (12/08/2024 10:27 AM BIOMECHANICAL ENGINEER) Anatomical Region Laterality Modality Spine Digital Radiogra phy 12/08/2024 1:17 PM BIOMECHANICAL ENGINEER Impressions 12/13/2024 12:15 PM BIOMECHANICAL ENGINEER IMPRESSION: 1.Successful lumbar puncture for cervical and [...] degenerative disc and joint disease as detailed xqhca-oi-ceenh above, worse at L4-L5, as outlined. 2.Transitional anatomy as noted above. The report is dictated by Addi Arambula MD, (pharmacy resident) Attending Physician: Dr. Magdalena Blackmon Artificial Intelligence Specialist: Dr. Addi Arambula MD, (pharmacy resident) The procedure was performed by the: The child and youth program assistant, and the attending radiologist was present [...] 12/13/2024 12:15 PM Narrative 12/13/2024 12:15 PM BIOMECHANICAL ENGINEER PROCEDURE: FL MYELOGRAM 2 OR MORE REGIONS, CT LUMBAR POST MYELOGRAM, CT CERVICAL POST MYELOGRAM DATE/TIME OF EXAM: 12/08/2024 10:34 AM CLINICAL INFORMATION: PROCEDURE: FL MYELOGRAM 2 OR MORE REGIONS, CT LUMBAR POST MYELOGRAM, CT CERVICAL POST MYELOGRAM, DATE/TIME OF EXAM: 12/08/2024 10:34 AM, LOCATION [facility] INDICATION: M54.50: Lumbar spine pain ADDITIONAL CLINICAL INFORMATION: Ordering Provider Reason For Exam: myelopathy (accession [id number]), chronic low back pain (accession [id number]) Technologist Note: None. Additional: None. EXAMINATION: 1.Lumbar [...] no high-grade central canal stenosis. There is gejf-yg-ixxgkeoj facet osteoarthritis. There is mild bilateral neural foraminal stenosis. Procedure Note Magdalena Blackmon MD - 12/13/2024 PROCEDURE: FL MYELOGRAM 2 OR MORE REGIONS, CT LUMBAR POST MYELOGRAM, CT CERVICAL POST MYELOGRAM DATE/TIME OF EXAM: 12/08/2024 10:34 AM CLINICAL INFORMATION: PROCEDURE: FL MYELOGRAM 2 OR MORE REGIONS, CTLUMBAR POST MYELOGRAM, CT CERVICAL POST MYELOGRAM, DATE/TIME OF EXAM:12/08/2024 10:34 AM, LOCATION [facility] INDICATION: M54.50: Lumbar spine pain ADDITIONAL CLINICAL INFORMATION: Ordering Provider Reason For Exam: myelopathy (accession [id number]), chronic low back pain (accession [id number]) Technologist Note: None. Additional: None. EXAMINATION: 1.Lumbar [...] island in the right aspect of the Y0hmsslpyqw body. Vertebral bodies are normal in height [...] is no high-grade central canal stenosis. Thereis aadr-ut-etudwbrk facet osteoarthritis. There is mild bilateral neural [...] 1.Multilevel degenerative disc and joint disease as xqjpsfinkteor-jk-gaoxf above, worse at L4-L5, as outlined. 2.Transitional anatomy as noted above. The report is dictated by Addi Arambula MD, (pharmacy resident) Attending Physician: Dr. Magdalena Blackmon Artificial Intelligence Specialist: Dr. Addi Arambula MD, (pharmacy resident) The procedure was performed by the: The child and youth program assistant, and the attending radiologist was present for allcritical and mariscal portions of the procedure, and [facility] entire procedure. The attending radiologist performed the following procedural activities: IDr. Magdalena was there and supervised mariscal portions of the procedure, not scrubbed. IMagdalena MD have personally reviewed and interpretedthis examination/study. > Interpreting Provider: Magdalena Blackmon MD on 12/13/2024 12:15 PM Cornelio Lima MD FLUOROSCOPY OR DERABLES * CT Lumbar Post Myelogram (12/08/2024 10:25 AM BIOMECHANICAL ENGINEER) Anatomical Region Laterality Modality Spine Computed Tomogra phy 12/08/2024 1:17 PM BIOMECHANICAL ENGINEER Impressions 12/13/2024 12:15 PM BIOMECHANICAL ENGINEER IMPRESSION: 1.Successful lumbar puncture for cervical and [...] degenerative disc and joint disease as detailed vfqza-ab-gauim above, worse at L4-L5, as outlined. 2.Transitional anatomy as noted above. The report is dictated by Addi Arambula MD, (pharmacy resident) Attending Physician: Dr. Magdalena Blackmon Artificial Intelligence Specialist: Dr. Addi Arambula MD, (pharmacy resident) The procedure was performed by the: The child and youth program assistant, and the attending radiologist was present [...] 12/13/2024 12:15 PM Narrative 12/13/2024 12:15 PM BIOMECHANICAL ENGINEER PROCEDURE: FL MYELOGRAM 2 OR MORE REGIONS, CT LUMBAR POST MYELOGRAM, CT CERVICAL POST MYELOGRAM DATE/TIME OF EXAM: 12/08/2024 10:34 AM CLINICAL INFORMATION: PROCEDURE: FL MYELOGRAM 2 OR MORE REGIONS, CT LUMBAR POST MYELOGRAM, CT CERVICAL POST MYELOGRAM, DATE/TIME OF EXAM: 12/08/2024 10:34 AM, LOCATION [facility] INDICATION: M54.50: Lumbar spine pain ADDITIONAL CLINICAL INFORMATION: Ordering Provider Reason For Exam: myelopathy (accession [id number]), chronic low back pain (accession [id number]) Technologist Note: None. Additional: None. EXAMINATION: 1.Lumbar [...] no high-grade central canal stenosis. There is lmcm-dt-lwvnchxk facet osteoarthritis. There is mild bilateral neural foraminal stenosis. Procedure Note Magdalena Blackmon MD - 12/13/2024 PROCEDURE: FL MYELOGRAM 2 OR MORE REGIONS, CT LUMBAR POST MYELOGRAM, CT CERVICAL POST MYELOGRAM DATE/TIME OF EXAM: 12/08/2024 10:34 AM CLINICAL INFORMATION: PROCEDURE: FL MYELOGRAM 2 OR MORE REGIONS, CTLUMBAR POST MYELOGRAM, CT CERVICAL POST MYELOGRAM, DATE/TIME OF EXAM:12/08/2024 10:34 AM, LOCATION [facility] INDICATION: M54.50: Lumbar spine pain ADDITIONAL CLINICAL INFORMATION: Ordering Provider Reason For Exam: myelopathy (accession [id number]), chronic low back pain (accession [id number]) Technologist Note: None. Additional: None. EXAMINATION: 1.Lumbar [...] island in the right aspect of the Z6olgjqqjqn body. Vertebral bodies are normal in height [...] is no high-grade central canal stenosis. Thereis dpth-kj-ufaklqfy facet osteoarthritis. There is mild bilateral neural [...] 1.Multilevel degenerative disc and joint disease as tcjcwnsaniykg-bz-annvc above, worse at L4-L5, as outlined. 2.Transitional anatomy as noted above. The report is dictated by Addi Arambula MD, (pharmacy resident) Attending Physician: Dr. Magdalena Blackmon Artificial Intelligence Specialist: Dr. Addi Arambula MD, (pharmacy resident) The procedure was performed by the: The child and youth program assistant, and the attending radiologist was present for allcritical and mariscal portions of the procedure, and was immediately available [place] [place] [place] services during the entire procedure. The attending radiologist performed the following procedural activities: IDr. Magdalena was there and supervised mariscal portions of the procedure, not scrubbed. IMagdalena MD have personally reviewed and interpretedthis examination/study. > Interpreting Provider: Magdalena Blackmon MD on 12/13/2024 12:15 PM Cornelio Lima MD CT ORDERABLES * CT Cervical Post Myelogram (12/08/2024 10:25 AM BIOMECHANICAL ENGINEER) Anatomical Region Laterality Modality Spine Computed Tomogra phy 12/08/2024 1:17 PM BIOMECHANICAL ENGINEER Impressions 12/13/2024 12:15 PM BIOMECHANICAL ENGINEER IMPRESSION: 1.Successful lumbar puncture for cervical and [...] degenerative disc and joint disease as detailed ssnga-mg-ycgve above, worse at L4-L5, as outlined. 2.Transitional anatomy as noted above. The report is dictated by Addi Arambula MD, (pharmacy resident) Attending Physician: Dr. Magdalena Blackmon Artificial Intelligence Specialist: Dr. Addi Arambula MD, (pharmacy resident) The procedure was performed by the: The child and youth program assistant, and the attending radiologist was present [...] 12/13/2024 12:15 PM Narrative 12/13/2024 12:15 PM BIOMECHANICAL ENGINEER PROCEDURE: FL MYELOGRAM 2 OR MORE REGIONS, CT LUMBAR POST MYELOGRAM, CT CERVICAL POST MYELOGRAM DATE/TIME OF EXAM: 12/08/2024 10:34 AM CLINICAL INFORMATION: PROCEDURE: FL MYELOGRAM 2 OR MORE REGIONS, CT LUMBAR POST MYELOGRAM, CT CERVICAL POST MYELOGRAM, DATE/TIME OF EXAM: 12/08/2024 10:34 AM, LOCATION [facility] INDICATION: M54.50: Lumbar spine pain ADDITIONAL CLINICAL INFORMATION: Ordering Provider Reason For Exam: myelopathy (accession [id number]), chronic low back pain (accession [id number]) Technologist Note: None. Additional: None. EXAMINATION: 1.Lumbar [...] no high-grade central canal stenosis. There is yxsr-mm-ydpsszuw facet osteoarthritis. There is mild bilateral neural foraminal stenosis. Procedure Note Magdalena Blackmon MD - 12/13/2024 PROCEDURE: FL MYELOGRAM 2 OR MORE REGIONS, CT LUMBAR POST MYELOGRAM, CT CERVICAL POST MYELOGRAM DATE/TIME OF EXAM: 12/08/2024 10:34 AM CLINICAL INFORMATION: PROCEDURE: FL MYELOGRAM 2 OR MORE REGIONS, CTLUMBAR POST MYELOGRAM, CT CERVICAL POST MYELOGRAM, DATE/TIME OF EXAM:12/08/2024 10:34 AM, LOCATION [facility] INDICATION: M54.50: Lumbar spine pain ADDITIONAL CLINICAL INFORMATION: Ordering Provider Reason For Exam: myelopathy (accession [id number]), chronic low back pain (accession [id number]) Technologist Note: None. Additional: None. EXAMINATION: 1.Lumbar [...] island in the right aspect of the J8qqmsnomar body. Vertebral bodies are normal in height [...] is no high-grade central canal stenosis. Thereis pgun-qk-zmeobwdp facet osteoarthritis. There is mild bilateral neural [...] 1.Multilevel degenerative disc and joint disease as fkukjkhvxlpns-gu-yxiww above, worse at L4-L5, as outlined. 2.Transitional anatomy as noted above. The report is dictated by Addi Arambula MD, (pharmacy resident) Attending Physician: Dr. Magdalena Blackmon Artificial Intelligence Specialist: Dr. Addi Armabula MD, (pharmacy resident) The procedure was performed by the: The child and youth program assistant, and the attending radiologist was present for allcritical and mariscal portions of the procedure, and [facility] entire procedure. The attending radiologist performed the following procedural activities: I, Dr. Magdalena Blackmon was there and supervised mariscal portions of the procedure, not scrubbed. I, Magdalena Blackmon MD have personally reviewed and interpretedthis examination/study. > Interpreting Provider: Magdalena Blackmon MD on 12/13/2024 12:15 PM Cornelio Lmia MD CT ORDERABLES * XR Spine Entire 2 or 3Vw (11/23/2024 11:09 AM BIOMECHANICAL ENGINEER) Anatomical Region Laterality Modality Spine Radiographic Erna ging 11/23/2024 11:3 1 AM BIOMECHANICAL ENGINEER Impressions 11/23/2024 11:34 AM BIOMECHANICAL ENGINEER IMPRESSION: Mild scoliosis. > Interpreting Provider: Baljinder Henson MD on 11/23/2024 11:34 AM Narrative 11/23/2024 11:34 AM BIOMECHANICAL ENGINEER PROCEDURE: XR SPINE ENTIRE 2 OR 3VW [...] 10 degrees, a lower thoracic levo curve fnecycgez24 degrees, and a lumbar dextro curve measuring [...] Spine 2 or 3Vw (11/23/2024 11:06 AM BIOMECHANICAL ENGINEER) Anatomical Region Laterality Modality Spine Radiographic Erna ging 11/23/2024 11:2 9 AM BIOMECHANICAL ENGINEER Impressions 11/23/2024 11:31 AM BIOMECHANICAL ENGINEER IMPRESSION: Moderate cervical spondylosis. > Interpreting Provider: Baljinder Henson MD on 11/23/2024 11:31 AM Narrative 11/23/2024 11:31 AM BIOMECHANICAL ENGINEER PROCEDURE: XR CERVICAL SPINE 2 OR 3VW [...] Spine 2 or 3Vw (11/23/2024 10:00 AM BIOMECHANICAL ENGINEER) Anatomical Region Laterality Modality Spine Computed Radiogr aphy 11/23/2024 10:3 8 AM BIOMECHANICAL ENGINEER Impressions 11/23/2024 10:39 AM BIOMECHANICAL ENGINEER IMPRESSION: Mild to moderate degenerative changes. > Interpreting Provider: Baljinder Henson MD on 11/23/2024 10:39 AM Narrative 11/23/2024 10:39 AM BIOMECHANICAL ENGINEER PROCEDURE: XR LUMBAR SPINE 2 OR 3VW [...] ORDERABLES * PATHOLOGY TISSUE (11/11/2024 10:16 AM BIOMECHANICAL ENGINEER) Case Report Surgical Pathology Report Case: [id number] Authorizing Provider: Sixto Cornell MD Collected: 11/11/2024 10:16 AM Ordering Location: [facility] Received: 11/11/2024 10:58 AM Pathologist: Kenyatta Norris MD Specimens: A) - Polyp Ascending, ascending colon polyp B) - Polyp Descending, descending colon polyps 11/14/2024 3:20 PM [facility] Final Diagnosis Large intestine, ascending colon polyp, biopsy (A): - Tubular adenoma Large intestine, descending colon polyps, biopsy (B): - Tubular adenoma(s), fragmented 11/14/2024 3:20 PM [facility] Microscopic Description and Comment Microscopic examination substantiates the final diagnosis. 11/14/2024 3:20 PM [facility] Clinical History The patient is a 69-year-old woman who presents for high risk colon cancer surveillance (personal history of colonic polyps). Operative procedure/findings: Colonoscopy - 2 mm ascending colon polyp, 4 and 5 mm descending colon polyps, resected and retrieved 11/14/2024 3:20 PM [facility] Gross Description The requisition and [...] cassette labeled B1. RB 11/14/2024 3:20 PM [facility] Pathologist Location at [facility] 11/14/2024 3:20 PM [facility] Disclaimer The performance characteristics of all immunohistochemical and indirect immunofluorescence stains (if any) cited in this report were determined by the Histopathology Laboratory of [facility]. Some of these tests were developed by [...] the attending (teaching) pathologist. 11/14/2024 3:20 PM BIOMECHANICAL ENGINEER [facility] PATHOLOG[facility] LAB Embedded Images 11/14/2024 3:20 PM BIOMECHANICAL ENGINEER [facility] PATH[facility] LAB Biopsy, NOS POLYP / Unknown 11/11/2024 1 0:16 AM BIOMECHANICAL ENGINEER 11/11/2024 10:58 AM BIOMECHANICAL ENGINEER Comment:Pre-op diagnosis: Screen for colon cancer [Z12.11] Biopsy, NOS POLYP / Unknown 11/11/2024 1 0:19 AM BIOMECHANICAL ENGINEER 11/11/2024 10:58 AM BIOMECHANICAL ENGINEER Comment:Pre-op diagnosis: Screen for colon cancer [Z12.11] Sixto Cornell MD LAB - PATHOLOGY/CYTO LOGY ORDERABLES Performing Organization Address City/State/[facility] Co de Phone Number [facility] PATHOLOG[facility] LAB [address] [phone] * ENDOSCOPY, COLON, SCREENING (11/11/2024 9:52 AM BIOMECHANICAL ENGINEER) Report Endoscopy POC Endoscopy Department Report _ [...] bowel preparation was evaluated using the BBPS ([place] Bowel Preparation Scale) with scores of: Right [...] non-mariscal portions. Procedure Code(s): --- Professional --- 46804, Colonoscopy, flexible; with removal of tumor(s), polyp(s), or other lesion(s) by snare technique 17439, 59, Colonoscopy, flexible; with biopsy, single or multiple Diagnosis Code(s): --- Professional --- Z86.010, Personal history of colonic polyps D12.2, Benign neoplasm of ascending colon D12.4, Benign neoplasm of descending colon K57.30, Diverticulosis of large intestine without perforation or abscess without bleeding CPT copyright 2021 [employer]. All rights reserved. The codes documented in this report are preliminary and upon him coder review may be revised to meet current compliance requirements. Sixto Cornell MD 11/11/2024 10:36:45 AM This report has been signed electronically. Note Initiated On: 11/11/2024 9:52 AM Number of Addenda: 0 [facility] [address] [place] [id number] [facility] PROVATION 11/11/2024 9:52 AM BIOMECHANICAL ENGINEER Sixto Cornell MD GI PROCEDURE ORDERAB LES [facility] * GLUCOSE - POINT OF CARE (11/11/2024 9:19 AM BIOMECHANICAL ENGINEER) Glucose WB/POC 99 70 - 99 mg/dL 11/11/2024 9:54 AM BIOMECHANICAL ENGINEER [facility] Specimen Type Venous 11/11/2024 9:54 AM BIOMECHANICAL ENGINEER [facility] Blood BLOOD SPECIMEN / Unknown 11/11/2024 9:19 AM BIOMECHANICAL ENGINEER 11/11/2024 9:54 AM BIOMECHANICAL ENGINEER Sixto Cornell MD LAB - POINT OF CARE ORDERABLES Performing Organization Address [facility] de Phone Number [facility] [address] [place] [address], [place] [phone] * CALPROTECTIN FECAL (11/07/2024 3:52 PM BIOMECHANICAL ENGINEER) Calprotectin Fecal 69 mcg/g [facility] Comment: Reference [...] suggested for borderline values. Test Performed at: [facility] [address] [place] [address] JARRELL CALDERON MD,PHD,EDGARDO Stool STOOL SPECIMEN / Unknown 11/07/2024 3:52 PM BIOMECHANICAL ENGINEER 11/08/2024 4:47 AM BIOMECHANICAL ENGINEER Yolanda Greer MICROPHONE OPERATOR-CHIMNEY CONSTRUCTION SUPERVISOR LAB - CRISTINA DY FLUID ORDERABLES Performing Organization Address City/[facility]/ZIP Co de Phone Number [facility] [address] [place] [address] * CULTURE STOOL PANEL (11/07/2024 3:52 PM BIOMECHANICAL ENGINEER) Campylobacter Antigen [facility] Comment: CAMPYLOBACTER SPP. AG,EIA Micro Number: [id number] Test Status: Final Specimen Source: Stool Specimen Quality: Adequate Campy Ag Result: Not Detected Reference Range: Not Detected EIA [facility] Comment: SHIGA TOXINS, EIA W/RFL TO E.COLI O157 CULTURE Micro Number: [id number] Test Status: Final Specimen Source: Stool Specimen Quality: Adequate Shiga Toxin: Not Detected Reference Range: Not Detected Culture [facility] Comment: SALMONELLA AND SHIGELLA, CULTURE Micro Number: [id number] Test Status: Final Specimen Source: Stool Specimen Quality: Adequate Result: No Salmonella or Shigella isolated Test Performed at: [facility] [address] SAROJ FAUSTIN MD Stool STOOL SPECIMEN / Unknown 11/07/2024 3:52 PM BIOMECHANICAL ENGINEER 11/07/2024 11:51 PM BIOMECHANICAL ENGINEER Yolanda Greer APRNMARGAR[facility] TOK.tvLOGY ORDERABLES Performing Organization Address [facility] Co de Phone Number [address] [address] * C DIFFICILE CYTOTOXIN (11/07/2024 3:51 PM BIOMECHANICAL ENGINEER) Cytotoxin Assay Stool NOT DETECTED [facility] Comment: [...] (GDH) with Reflex to PCR, order code 05243 or Clostridium difficile toxin B, Qualitative real time PCR, test code 88849 to be more sensitive and timely methods for the diagnosis of C. difficile colitis. For additional information, please refer to http://education.Roadtrippers/faq/JMI805 (This link is being provided for informational/ educational purposes only.) Test Performed at: [facility] [address] [place] [address] JARRELL CALDERNO MD,PHD,EDGARDO Stool STOOL SPECIMEN / Unknown 11/07/2024 3:51 PM BIOMECHANICAL ENGINEER 11/08/2024 4:58 AM BIOMECHANICAL ENGINEER Yolanda Greer [facility] TOK.tvLOGY ORDERABLES Performing Organization Address [facility] Co de Phone Number [address] [address] * PROC DEEP BRAIN STIMULATOR (11/03/2024 2:08 PM BIOMECHANICAL ENGINEER) Narrative Moncho Salcedo APRNLUIS MANUEL - 11/03/2024 2:08 PM BIOMECHANICAL ENGINEER Moncho Salcedo APRNCharlaCHIMNEY CONSTRUCTION SUPERVISOR 11/03/2024 4:00 PM Please see office notes for documentation- Thanks Moncho Salcedo APRN-CHIMNEY CONSTRUCTION SUPERVISOR PROCEDURE/MINOR SURGICAL ORDERABLES * XR Knee Left 4Vw or More (09/19/2024 9:18 AM BIOMECHANICAL ENGINEER) Anatomical Region Laterality Modality Lower Extremity Digital Radiogra phy 09/19/2024 10:0 4 AM BIOMECHANICAL ENGINEER Impressions 09/19/2024 10:41 AM BIOMECHANICAL ENGINEER IMPRESSION: No acute fracture or dislocation identified. Report dictated by Arnoldo Walker MD (pharmacy resident). Baljinder Gutierrez MD have personally reviewed and interpreted this examination/study. > Interpreting Provider: Baljinder Henson MD on 09/19/2024 10:41 AM Narrative 09/19/2024 10:41 AM BIOMECHANICAL ENGINEER PROCEDURE: XR KNEE LEFT 4VW OR MORE, DATE/TIME OF EXAM: 09/19/2024 9:19 AM, LOCATION [facility] INDICATION: M25.562: Acute pain of left knee ADDITIONAL CLINICAL INFORMATION: COMPARISON: None. FINDINGS: The osseous structures are intact and well aligned without acute fracture or dislocation. The knee joint space is preserved. No joint effusion is seen. Procedure Note Baljinder Henson MD - 09/19/2024 PROCEDURE: XR KNEE LEFT 4VW OR MORE, DATE/TIME OF EXAM: 09/19/2024 9:19 AM, LOCATION [facility] INDICATION: M25.562: Acute pain of left knee ADDITIONAL CLINICAL INFORMATION: COMPARISON: None. FINDINGS: The osseous structures are intact and well aligned without acutefracture or dislocation. The knee joint space is preserved. No joint effusion is seen. IMPRESSION: No acute fracture or dislocation identified. Report dictated by Arnoldo Walker MD (pharmacy resident). Baljinder Gutierrez MD have personally reviewed and interpreted this examination/study. > Interpreting Provider: Baljinder Henson MD on 09/19/2024 10:41 AM Kerry Silver Peak DO DIAGNOSTIC IMAGING O RDERABLES * XR Lumbar Spine 4Vw or More (09/19/2024 9:18 AM BIOMECHANICAL ENGINEER) Anatomical Region Laterality Modality Spine Digital Radiogra phy 09/19/2024 10:2 2 AM BIOMECHANICAL ENGINEER Impressions 09/19/2024 3:01 PM BIOMECHANICAL ENGINEER IMPRESSION: Moderate dextroscoliosis. Grade 1 anterior spondylolisthesis of L4 relative to L5 seen in association with mild instability as discussed above. > Dictated by Kim Noonan MD, (pharmacy resident). I, Sergio Omalley MD have personally reviewed and interpreted this examination/study. > Interpreting Provider: Sergio Omalley MD on 09/19/2024 3:01 PM Narrative 09/19/2024 3:01 PM BIOMECHANICAL ENGINEER PROCEDURE: XR LUMBAR SPINE 4VW OR MORE, DATE/TIME OF EXAM: 09/19/2024 9:19 AM, LOCATION [facility] INDICATION: M54.50: Acute bilateral low back [...] MORE, DATE/TIME OF EXAM: 49:19 AM, LOCATION [facility] INDICATION: M54.50: Acute bilateral low back [...] above. > Dictated by Kim Noonan MD, (pharmacy resident). I, Sergio Omalley MD have personally reviewed and interpreted this examination/study. > Interpreting Provider: Sergio Omalley MD on 09/19/2024 3:01 PM Kerryher Coffman DO DIAGNOSTIC IMAGING O RDERABLES * (ABNORMAL) COMPREHENSIVE METABOLIC PANEL (07/20/2024 11:49 AM CDT) BUN 10 7 - 26 mg/dL 07/20/2024 12:52 PM [facility] Creatinine 0.80 0.56 - 0.96 mg/dL 07/20/2024 12:52 PM [facility] Sodium 139 136 - 145 mmol/L 07/20/2024 12:52 PM [facility] Potassium 4.3 3.5 - 4.5 mmol/L 07/20/2024 12:52 PM [facility] Chloride 103 98 - 107 mmol/L 07/20/2024 12:52 PM [facility] CO2 28 22 - 29 mmol/L 07/20/2024 12:52 PM [facility] Glucose 165(H) 70 - 115 mg/dL 07/20/2024 12:52 PM [facility] Calcium 9.8 8.4 - 10.2 mg/dL 07/20/2024 12:52 PM [facility] Protein Total 7.1 6.0 - 8.3 g/dL 07/20/2024 12:52 PM [facility] Albumin 4.2 3.4 - 5.0 g/dL 07/20/2024 12:52 PM [facility] Bilirubin Total 0.2 0.2 - 1.2 mg/dL 07/20/2024 12:52 PM [facility] Alkaline Phosphatase 124 40 - 150 U/L 07/20/2024 12:52 PM [facility] ALT 16 5 - 55 U/L 07/20/2024 12:52 PM [facility] AST 20 5 - 34 U/L 07/20/2024 12:52 PM [facility] Anion Gap 8 6 - 16 07/20/2024 12:52 PM [facility] BUN/Creatinine Ratio 13 7 - 23 07/20/2024 12:52 PM [facility] Osmolality Calculated 291 275 - 295 mOsm/kg 07/20/2024 12:52 PM [facility] Albumin/Globulin Ratio 1.4 1.1 - 2.3 07/20/2024 12:52 PM [facility] eGFR by CKD-EPI 80(L) >=90 mL/min/1.7 3 m2 07/20/2024 12:52 PM [facility] Blood BLOOD SPECIMEN / Unknown Lab Venipuncture / Unknown 07/20/2024 11:49 AM CDT 07/20/2024 12:17 PM CDT Yolanda Greer MICROPHONE OPERATOR-CHIMNEY CONSTRUCTION SUPERVISOR LAB - CH EMISTRY ORDERABLES [facility] [address] [place] [address], [place] [phone] * HEMOGLOBIN A1C - POINT OF CARE (AMB) [facility] (04/04/2024 11:34 AM CDT) Hemoglobin A1c POCT 5.4 % [address] BLOOD SPECIMEN / Unknown 04/04/2024 11:34 AM CDT Kerry Coffman DO LAB - POINT OF CARE ORDERABLES [address] [place] [address], [place] [phone] * MICROALB/CREAT RATIO URINE RANDOM PANEL (02/05/2023 [...] within a diagnostic category. Test Performed at: [facility] [address] [place] [address] SAROJ FAUSTIN MD 02/05/2023 12:2 6 PM CDT 02/05/2023 12:27 PM CDT Marquise Adames MD LAB - URINE CHEMISTR Y ORDERABLES Performing Organization Address City/State/[facility] Co de Phone Number [facility] [address] [place] [address] from Last 3 Months or Most Recently Relevant to Health Maintenance Advance Directives * Full Code (Latest Code Status on File) Date Activated Date Inactivated Comments 08/29/2022 4:40 PM 08/31/2022 1:59 PM * Full Code Date Activated Date Inactivated Comments 03/17/2022 3:37 PM 03/19/2022 1:47 PM Care Teams Ad Setter Relationship Specialty Start Date End Date Kerry Coffman DO [address] OF [facility] [place] [address] PCP - General Internal Medicine 12/15/23
--- OUTSIDE RECORDS SUMMARY | 2024-12-13 22:38 | XMS_ITS | Clinical Summary ---
Author Organization [facility] Address [address] [place] [phone] Care Team Providers Care Director Of Advertising Sales Name Role Phone Kerry Coffman Primary Care [...] 1 tablet (2 mg total) by mouth byproducts pump operator before breakfast 4 Active azelastine (ASTELIN) 137 [...] Department Care Team Description 11/21/2024 1:50 PM CHIEF TECHNICAL OFFICER - 11/21/2024 11:59 PM CHIEF TECHNICAL OFFICER Hospital Encounter [facility] Radiology at [facility] [address] [place] [id number] Discharge Disposition: Discharge to home or self care 11/21/2024 1:20 PM CHIEF TECHNICAL OFFICER Office Visit [facility] Rheumatology [address] [place] [address] 2nd Floor [address] [place] [phone] Marialuisa Franklin NP Rheumatoid arthritis with negative rheumatoid factor, involving unspecified site (HCC) (Primary Dx); High risk medication use 11/15/2024 10:40 AM CHIEF TECHNICAL OFFICER - 11/15/2024 11:59 PM CHIEF TECHNICAL OFFICER Hospital Encounter [facility] of [address] [address] High risk medication use Discharge Disposition: Discharge to home or self care 11/15/2024 10:30 AM CHIEF TECHNICAL OFFICER Infusion [facility] Infusion Therapy [address] [facility] 2nd Floor [address] [place] [phone] Rheumatoid arthritis with negative rheumatoid factor, involving unspecified site (HCC) (Primary Dx) 10/18/2024 10:30 AM CHIEF TECHNICAL OFFICER Infusion [facility] Infusion Therapy [address] [facility] 2nd Floor [address] [place] [phone] Rheumatoid arthritis with negative rheumatoid factor, involving [...] on file Legal Sex Female 10:45 PM CHIEF TECHNICAL OFFICER Gender Identity Not on file Sexual Orientation Not on file Obstetrics History Last Filed Vital Signs Vital Sign Reading Time Taken Comments Blood Pressure 93/58 11/21/2024 1:01 PM CHIEF TECHNICAL OFFICER Pulse 63 11/21/2024 1:01 PM CHIEF TECHNICAL OFFICER Temperature 36.6 C (97.8 F) 11/21/2024 1:01 PM CHIEF TECHNICAL OFFICER Respiratory Rate - - Oxygen Saturation 99% 11/21/2024 1:01 PM CHIEF TECHNICAL OFFICER Inhaled Oxygen Concentration - - Weight 68 kg (150 lb) 11/21/2024 1:01 PM CHIEF TECHNICAL OFFICER Height 167.6 cm (5' 5.98 ) 11/21/2024 1:01 PM CS T Body Mass Index 24.22 11/21/2024 1:01 PM CHIEF TECHNICAL OFFICER Plan of Treatment Health Maintenance Due Date [...] Read Routine (OP Routine) 11/21/2024 2:04 PM CHIEF TECHNICAL OFFICER Rheumatoid arthritis with negative rheumatoid factor, involving unspecified site (HCC) XR HAND LEFT 3 OR MORE VIEWS Schedule Routine, Read Routine (OP Routine) 11/21/2024 2:04 PM CHIEF TECHNICAL OFFICER Rheumatoid arthritis with negative rheumatoid factor, involving unspecified site (HCC) XR WRIST RIGHT 3 OR MORE VIEWS Schedule Routine, Read Routine (OP Routine) 11/21/2024 2:04 PM CHIEF TECHNICAL OFFICER Rheumatoid arthritis with negative rheumatoid factor, involving unspecified site (HCC) XR WRIST LEFT 3 OR MORE VIEWS Schedule Routine, Read Routine (OP Routine) 11/21/2024 2:04 PM CHIEF TECHNICAL OFFICER Rheumatoid arthritis with negative rheumatoid factor, involving unspecified site (HCC) EGFR Routine 11/15/2024 1:46 PM CHIEF TECHNICAL OFFICER High risk medication use DIFFERENTIAL AUTO Routine 11/15/2024 1:4 6 PM CHIEF TECHNICAL OFFICER High risk medication use COMPREHENSIVE METABOLIC PANEL Routine 11/15/2024 1:46 PM CHIEF TECHNICAL OFFICER High risk medication use CBC WITH AUTO DIFFERENTIAL Routine 11/15/2024 1:46 PM CHIEF TECHNICAL OFFICER High risk medication use TB TEST, QUANTIFERON GOLD Routine 11/07/2024 3:55 PM CHIEF TECHNICAL OFFICER High risk medication use DEXA AXIAL SKELETON [...] 3 or More Views (11/21/2024 2:04 PM CHIEF TECHNICAL OFFICER) Anatomical Region Laterality Modality Upper Extremities, Hand Right Computed Radiography 11/21/2024 2:23 PM CHIEF TECHNICAL OFFICER Addenda Addendum by Pipe Valdivia MD on 11/22/2024 12:50 PM CHIEF TECHNICAL OFFICER ADDENDUM: Progressive polyarticular erosions involving the bilateral hands and wrists, most prominent in the carpus bilaterally. This is consistent with progressive inflammatory arthritis in this patient with known rheumatoid arthritis. Electronically signed by: Pipe Valdivia MD Impressions 11/21/2024 2:23 PM CHIEF TECHNICAL OFFICER 1. Healing fracture of the left 4th metacarpal shaft with shortening and mild ulnar displacement. 2. Polyarticular erosions involving the bilateral hands and wrists, most prominent in the carpus bilaterally. This is consistent with inflammatory arthritis. Statistically, this is most likely due to rheumatoid arthritis. Electronically signed by: Pipe Valdivia MD Narrative 11/21/2024 2:23 PM CHIEF TECHNICAL OFFICER EXAMINATION: XR WRIST LEFT 3 OR MORE [...] by: Pipe Valdivia MD us Marialuisa Franklin ACCESS REP IMG XR PROCEDURES Edited R esult - Final * XR Hand Left 3 or More Views (11/21/2024 2:04 PM CHIEF TECHNICAL OFFICER) Anatomical Region Laterality Modality Upper Extremities, Hand Left Computed Radiography 11/21/2024 2:23 PM CHIEF TECHNICAL OFFICER Addenda Addendum by Pipe Valdivia MD on 11/22/2024 12:50 PM CHIEF TECHNICAL OFFICER ADDENDUM: Progressive polyarticular erosions involving the bilateral hands and wrists, most prominent in the carpus bilaterally. This is consistent with progressive inflammatory arthritis in this patient with known rheumatoid arthritis. Electronically signed by: Pipe Valdivia MD Impressions 11/21/2024 2:23 PM CHIEF TECHNICAL OFFICER 1. Healing fracture of the left 4th metacarpal shaft with shortening and mild ulnar displacement. 2. Polyarticular erosions involving the bilateral hands and wrists, most prominent in the carpus bilaterally. This is consistent with inflammatory arthritis. Statistically, this is most likely due to rheumatoid arthritis. Electronically signed by: Pipe Valdivia MD Narrative 11/21/2024 2:23 PM CHIEF TECHNICAL OFFICER EXAMINATION: XR WRIST LEFT 3 OR MORE [...] 3 or More Views (11/21/2024 2:04 PM CHIEF TECHNICAL OFFICER) Anatomical Region Laterality Modality Upper Extremities, Wrist Right Compute d Radiography 11/21/2024 2:23 PM CHIEF TECHNICAL OFFICER Addenda Addendum by Pipe Valdivia MD on 11/22/2024 12:50 PM CHIEF TECHNICAL OFFICER ADDENDUM: Progressive polyarticular erosions involving the bilateral hands and wrists, most prominent in the carpus bilaterally. This is consistent with progressive inflammatory arthritis in this patient with known rheumatoid arthritis. Electronically signed by: Pipe Valdivia MD Impressions 11/21/2024 2:23 PM CHIEF TECHNICAL OFFICER 1. Healing fracture of the left 4th metacarpal shaft with shortening and mild ulnar displacement. 2. Polyarticular erosions involving the bilateral hands and wrists, most prominent in the carpus bilaterally. This is consistent with inflammatory arthritis. Statistically, this is most likely due to rheumatoid arthritis. Electronically signed by: Pipe Valdivia MD Narrative 11/21/2024 2:23 PM CHIEF TECHNICAL OFFICER EXAMINATION: XR WRIST LEFT 3 OR MORE [...] 3 or More Views (11/21/2024 2:04 PM CHIEF TECHNICAL OFFICER) Anatomical Region Laterality Modality Upper Extremities, Wrist Left Compute d Radiography 11/21/2024 2:23 PM CHIEF TECHNICAL OFFICER Addenda Addendum by Pipe Valdivia MD on 11/22/2024 12:50 PM CHIEF TECHNICAL OFFICER ADDENDUM: Progressive polyarticular erosions involving the bilateral hands and wrists, most prominent in the carpus bilaterally. This is consistent with progressive inflammatory arthritis in this patient with known rheumatoid arthritis. Electronically signed by: Pipe Valdivia MD Impressions 11/21/2024 2:23 PM CHIEF TECHNICAL OFFICER 1. Healing fracture of the left 4th metacarpal shaft with shortening and mild ulnar displacement. 2. Polyarticular erosions involving the bilateral hands and wrists, most prominent in the carpus bilaterally. This is consistent with inflammatory arthritis. Statistically, this is most likely due to rheumatoid arthritis. Electronically signed by: Pipe Valdivia MD Narrative 11/21/2024 2:23 PM CHIEF TECHNICAL OFFICER EXAMINATION: XR WRIST LEFT 3 OR MORE [...] - Final * eGFR (11/15/2024 1:46 PM CHIEF TECHNICAL OFFICER) eGFR 67 >=60 mL/min/1. 73 m2 Comment: [...] last reviewed 2021. Blood 11/15/2024 1:46 PM CHIEF TECHNICAL OFFICER 11/15/2024 2:48 PM CHIEF TECHNICAL OFFICER us Marialuisa Franklin ACCESS REP LAB BLOOD ORDERABLES Final Result [facility] [place] [address] * Differential, auto (11/15/2024 1:46 PM CHIEF TECHNICAL OFFICER) Neutrophil abs 3.2 1.5 - 6.5 K/cumm Imm gran abs 0.0 0.0 - 0.1 K/cumm [facility] Lymphocyte abs 1.1 0.8 - 3.3 K/cumm [facility] Monocyte abs 0.6 0.2 - 0.8 K/cumm [facility] Eosinophil abs 0.1 0.0 - 0.5 K/cumm [facility] Basophil abs 0.1 0.0 - 0.1 K/cumm [facility] Neutrophil pct 63.6 % [facility] Comment: Interpretive Data Percent cell count reference ranges are not reported, since discordance with absolute values may lead to misinterpretation of CBC data. Current Interpretive Data was last revised on 2018. Imm gran pct 0.4 % [facility] Comment: Interpretive Data Percent cell count reference ranges are not reported, since discordance with absolute values may lead to misinterpretation of CBC data. Current Interpretive Data was last revised on 2018. Lymphocyte pct 21.4 % [facility] Comment: Interpretive Data Percent cell count reference ranges are not reported, since discordance with absolute values may lead to misinterpretation of CBC data. Current Interpretive Data was last revised on 2018. Monocyte pct 11.4 % [facility] Comment: Interpretive Data Percent cell count reference ranges are not reported, since discordance with absolute values may lead to misinterpretation of CBC data. Current Interpretive Data was last revised on 2018. Eosinophil pct 2.0 % [facility] Comment: Interpretive Data Percent cell count reference ranges are not reported, since discordance with absolute values may lead to misinterpretation of CBC data. Current Interpretive Data was last revised on 2018. Basophil pct 1.2 % [facility] Comment: Interpretive Data Percent cell count reference ranges are not reported, since discordance with absolute values may lead to misinterpretation of CBC data. Current Interpretive Data was last revised on 2018. Blood 11/15/2024 1:46 PM CHIEF TECHNICAL OFFICER 11/15/2024 1:59 PM CHIEF TECHNICAL OFFICER us Marialuisa Franklin ACCESS REP LAB BLOOD ORDERABLES Final Result [facility] [place] [address] * CBC with auto differential (11/15/2024 1:46 PM CHIEF TECHNICAL OFFICER) WBC 5.0 3.8 - 9.9 K/cumm Hgb 13.7 11.9 - 15.5 g/dL [facility] Hct 41.1 35.6 - 45.5 % [facility] Plt 256 150 - 400 K/cumm [facility] MPV 11.0 9.1 - 12.3 fL [facility] RBC 4.32 3.90 - 5.20 M/cumm [facility] MCV 95.1 81.3 - 96.4 fL [facility] MCH 31.7 27.1 - 33.3 pg [facility] MCHC 33.3 32.3 - 35.7 g/dL [facility] RDW CV 13.3 11.1 - 14.9 % [facility] RDW SD 47.1 35.7 - 48.1 fL [facility] NRBC abs 0.00 0.00 - 0.01 K/cumm [facility] Blood 11/15/2024 1:46 PM CHIEF TECHNICAL OFFICER 11/15/2024 1:59 PM CHIEF TECHNICAL OFFICER us Marialuisa Franklin ACCESS REP LAB BLOOD ORDERABLES Final Result [facility] [place] [address] * Comprehensive metabolic panel (11/15/2024 1:46 PM CHIEF TECHNICAL OFFICER) Sodium 139 135 - 145 mmol/L Potassium, pl 4.5 3.3 - 4.9 mmol/L [facility] Chloride 103 97 - 110 mmol/L [facility] CO2 26 22 - 32 mmol/L [facility] Anion gap 10 2 - 15 mmol/L [facility] BUN 15 6 - 25 mg/dL [facility] Creatinine 0.92 0.60 - 1.10 mg/dL [facility] Glucose 105 70 - 199 mg/dL [facility] Comment: Interpretive Data Fasting glucose >/= 126 [...] 2022. Calcium 9.5 8.5 - 10.3 mg/dL [facility] Bilirubin, total 0.3 0.1 - 1.2 mg/dL [facility] Protein, pl 7.1 6.5 - 8.5 g/dL [facility] Albumin 4.3 3.5 - 5.0 g/dL [facility] Alk phos 121 40 - 130 Units/L [facility] ALT 19 7 - 45 Units/L [facility] AST 22 10 - 45 Units/L [facility] Blood 11/15/2024 1:46 PM CHIEF TECHNICAL OFFICER 11/15/2024 2:48 PM CHIEF TECHNICAL OFFICER us Marialuisa Franklin NP LAB BLOOD ORDERABLES Final Result [facility] [place] [address] * TB test, quantiferon gold (11/07/2024 3:55 PM CHIEF TECHNICAL OFFICER) [facility] QuantiFERON(R)-T B Gold Plus, 1 Tube NEGATIVE [...] T-lymphocytes. For additional information, please refer to https://education.Zinio.PayProp/faq/VVN786 (This link is being provided for informational/ educational purposes only.) Blood 11/07/2024 3:55 PM CHIEF TECHNICAL OFFICER 11/07/2024 3:56 PM CHIEF TECHNICAL OFFICER us Marialuisa Franklin NP LAB BLOOD ORDERABLES Final Result [email or web address] [address] [phone] * Dexa Axial Skeleton Bone Density 1 or 2 Site (03/08/2024 9:24 AM CDT) Anatomical Region Laterality Modality Body N/A Radiographic Erna ging Narrative 03/08/2024 9:48 PM CDT Patient Name: Sheri Shin Date of : 1955 Date of scan: 03/08/2024 Bone mineral density was performed on a [employer] Discovery Densitometer. Based on machine cross-calibration and [...] by the International Society of Clinical Densitometry. [id number] Marialuisa Franklin NP IMG DXA PROCEDURES Final R esult * Hepatitis panel, acute (05/24/2020 9:45 AM CDT) Hep A IgM Nonreactive Nonreactive [facility] Comment: Interpretive Data: If Hep A IgM Ab is reported as Equivocal, a new sample should be drawn in two weeks for testing. Current interpretive data was last revised on 19. Hep B core IgM Nonreactive Nonreactive [facility] Comment: Interpretive Data If HepB Core IgM Ab is reported as Equivocal, a new sample should be drawn in two weeks for testing. Current interpretive data was last revised on 19. Hep C Ab Nonreactive Nonreactive [facility] Comment:Antibodies to HCV no t detected. Does NOT exclude the possibility of recent exposure to HCV. HepBsAg Nonreactive Nonreactive [facility] Blood specimen (specimen) 05/24/2020 9:45 AM CDT 05/24/2020 12:08 PM CDT Marialuisa Franklin NP LAB MICROBIOLOGY - GENERAL ORDERABLES Edited Result - Final [facility] [place] [address] from Last 3 Months or Most Recently Relevant to Health Maintenance Insurance [facility] MEDICARE SOLUTIONS [facility] MEDICARE MEDICARE MEDICARE SOLUTIONS Care Teams Director Of Advertising Sales Relationship Specialty Start Date End Date Kerry Coffman DO [address] [place] [address] PCP - General Internal Medicine 04/19/24
--- OUTSIDE RECORDS SUMMARY | 2024-12-13 22:38 | XMS_ITS | Referral Summary ---
Author Organization [facility] Address [address] [place] [phone] Care Team Providers Care County Assessor Name Role Phone Kerry Coffman DO Primary Care Provider Encounters Date Type Department Care Team Description 11/21/2024 1:50 PM ANSWERING SERVICE OPERATOR - 11/21/2024 11:59 PM ANSWERING SERVICE OPERATOR Hospital Encounter [facility] Radiology at [facility] [address] [place] [id number] Discharge Disposition: Discharge to home or self care 11/21/2024 1:20 PM ANSWERING SERVICE OPERATOR Office Visit [facility] Rheumatology [address] [facility] 2[address] [place] [phone] Marialuisa Franklin, SAMI Rheumatoid arthritis with negative rheumatoid factor, involving unspecified site (HCC) (Primary Dx); High risk medication use 11/15/2024 10:40 AM ANSWERING SERVICE OPERATOR - 11/15/2024 11:59 PM ANSWERING SERVICE OPERATOR Hospital Encounter [address] [address] High risk medication use Discharge Disposition: Discharge to home or self care 11/15/2024 10:30 AM ANSWERING SERVICE OPERATOR Infusion [facility] Infusion Therapy [address] [facility] 2[address] [place] [phone] Rheumatoid arthritis with negative rheumatoid factor, involving unspecified site (HCC) (Primary Dx) 10/18/2024 10:30 AM ANSWERING SERVICE OPERATOR Infusion [facility] Infusion Therapy [address] [facility] [address] [place] [phone] Rheumatoid arthritis with negative rheumatoid factor, involving [...] 1 tablet (2 mg total) by mouth aircraft structural repairer before breakfast 4 Active azelastine (ASTELIN) 137 [...] on file Legal Sex Female 10:45 PM ANSWERING SERVICE OPERATOR Gender Identity Not on file Sexual Orientation Not on file Last Filed Vital Signs Vital Sign Reading Time Taken Comments Blood Pressure 93/58 11/21/2024 1:01 PM ANSWERING SERVICE OPERATOR Pulse 63 11/21/2024 1:01 PM ANSWERING SERVICE OPERATOR Temperature 36.6 C (97.8 F) 11/21/2024 1:01 PM ANSWERING SERVICE OPERATOR Respiratory Rate - - Oxygen Saturation 99% 11/21/2024 1:01 PM ANSWERING SERVICE OPERATOR Inhaled Oxygen Concentration - - Weight 68 kg (150 lb) 11/21/2024 1:01 PM ANSWERING SERVICE OPERATOR Height 167.6 cm (5' 5.98 ) 11/21/2024 1:01 PM CS T Body Mass Index 24.22 11/21/2024 1:01 PM ANSWERING SERVICE OPERATOR Plan of Treatment Not on file Procedures Procedure Name Priority Date/Time Associated Diagnosis Comments XR HAND RIGHT 3 OR MORE VIEWS Schedule Routine, Read Routine (OP Routine) 11/21/2024 2:04 PM ANSWERING SERVICE OPERATOR Rheumatoid arthritis with negative rheumatoid factor, involving unspecified site (HCC) XR HAND LEFT 3 OR MORE VIEWS Schedule Routine, Read Routine (OP Routine) 11/21/2024 2:04 PM ANSWERING SERVICE OPERATOR Rheumatoid arthritis with negative rheumatoid factor, involving unspecified site (HCC) XR WRIST RIGHT 3 OR MORE VIEWS Schedule Routine, Read Routine (OP Routine) 11/21/2024 2:04 PM ANSWERING SERVICE OPERATOR Rheumatoid arthritis with negative rheumatoid factor, involving unspecified site (HCC) XR WRIST LEFT 3 OR MORE VIEWS Schedule Routine, Read Routine (OP Routine) 11/21/2024 2:04 PM ANSWERING SERVICE OPERATOR Rheumatoid arthritis with negative rheumatoid factor, involving unspecified site (HCC) EGFR Routine 11/15/2024 1:46 PM ANSWERING SERVICE OPERATOR High risk medication use DIFFERENTIAL AUTO Routine 11/15/2024 1: 46 PM ANSWERING SERVICE OPERATOR High risk medication use COMPREHENSIVE METABOLIC PANEL Routine 11/15/2024 1:46 PM ANSWERING SERVICE OPERATOR High risk medication use CBC WITH AUTO DIFFERENTIAL Routine 11/15/2024 1:46 PM ANSWERING SERVICE OPERATOR High risk medication use TB TEST, QUANTIFERON GOLD Routine 11/07/2024 3:55 PM ANSWERING SERVICE OPERATOR High risk medication use DEXA AXIAL SKELETON [...] 3 or More Views (11/21/2024 2:04 PM ANSWERING SERVICE OPERATOR) Anatomical Region Laterality Modality Upper Extremities, Hand Right Computed Radiography 11/21/2024 2:23 PM ANSWERING SERVICE OPERATOR Addenda Addendum by Pipe Valdivia MD on 11/22/2024 12:50 PM ANSWERING SERVICE OPERATOR ADDENDUM: Progressive polyarticular erosions involving the bilateral hands and wrists, most prominent in the carpus bilaterally. This is consistent with progressive inflammatory arthritis in this patient with known rheumatoid arthritis. Electronically signed by: Pipe Valdivia MD Impressions 11/21/2024 2:23 PM ANSWERING SERVICE OPERATOR 1. Healing fracture of the left 4th metacarpal shaft with shortening and mild ulnar displacement. 2. Polyarticular erosions involving the bilateral hands and wrists, most prominent in the carpus bilaterally. This is consistent with inflammatory arthritis. Statistically, this is most likely due to rheumatoid arthritis. Electronically signed by: Pipe Valdivia MD Narrative 11/21/2024 2:23 PM ANSWERING SERVICE OPERATOR EXAMINATION: XR WRIST LEFT 3 OR MORE [...] 3 or More Views (11/21/2024 2:04 PM ANSWERING SERVICE OPERATOR) Anatomical Region Laterality Modality Upper Extremities, Hand Left Computed Radiography 11/21/2024 2:23 PM ANSWERING SERVICE OPERATOR Addenda Addendum by Pipe Valdivia MD on 11/22/2024 12:50 PM ANSWERING SERVICE OPERATOR ADDENDUM: Progressive polyarticular erosions involving the bilateral hands and wrists, most prominent in the carpus bilaterally. This is consistent with progressive inflammatory arthritis in this patient with known rheumatoid arthritis. Electronically signed by: Pipe Valdivia MD Impressions 11/21/2024 2:23 PM ANSWERING SERVICE OPERATOR 1. Healing fracture of the left 4th metacarpal shaft with shortening and mild ulnar displacement. 2. Polyarticular erosions involving the bilateral hands and wrists, most prominent in the carpus bilaterally. This is consistent with inflammatory arthritis. Statistically, this is most likely due to rheumatoid arthritis. Electronically signed by: Pipe Valdivia MD Narrative 11/21/2024 2:23 PM ANSWERING SERVICE OPERATOR EXAMINATION: XR WRIST LEFT 3 OR MORE [...] 3 or More Views (11/21/2024 2:04 PM ANSWERING SERVICE OPERATOR) Anatomical Region Laterality Modality Upper Extremities, Wrist Right Compute d Radiography 11/21/2024 2:23 PM ANSWERING SERVICE OPERATOR Addenda Addendum by Pipe Valdivia MD on 11/22/2024 12:50 PM ANSWERING SERVICE OPERATOR ADDENDUM: Progressive polyarticular erosions involving the bilateral hands and wrists, most prominent in the carpus bilaterally. This is consistent with progressive inflammatory arthritis in this patient with known rheumatoid arthritis. Electronically signed by: Pipe Valdivia MD Impressions 11/21/2024 2:23 PM ANSWERING SERVICE OPERATOR 1. Healing fracture of the left 4th metacarpal shaft with shortening and mild ulnar displacement. 2. Polyarticular erosions involving the bilateral hands and wrists, most prominent in the carpus bilaterally. This is consistent with inflammatory arthritis. Statistically, this is most likely due to rheumatoid arthritis. Electronically signed by: Pipe Valdivia MD Narrative 11/21/2024 2:23 PM ANSWERING SERVICE OPERATOR EXAMINATION: XR WRIST LEFT 3 OR MORE [...] 3 or More Views (11/21/2024 2:04 PM ANSWERING SERVICE OPERATOR) Anatomical Region Laterality Modality Upper Extremities, Wrist Left Compute d Radiography 11/21/2024 2:23 PM ANSWERING SERVICE OPERATOR Addenda Addendum by Pipe Valdivia MD on 11/22/2024 12:50 PM ANSWERING SERVICE OPERATOR ADDENDUM: Progressive polyarticular erosions involving the bilateral hands and wrists, most prominent in the carpus bilaterally. This is consistent with progressive inflammatory arthritis in this patient with known rheumatoid arthritis. Electronically signed by: Pipe Valdivia MD Impressions 11/21/2024 2:23 PM ANSWERING SERVICE OPERATOR 1. Healing fracture of the left 4th metacarpal shaft with shortening and mild ulnar displacement. 2. Polyarticular erosions involving the bilateral hands and wrists, most prominent in the carpus bilaterally. This is consistent with inflammatory arthritis. Statistically, this is most likely due to rheumatoid arthritis. Electronically signed by: Pipe Valdivia MD Narrative 11/21/2024 2:23 PM ANSWERING SERVICE OPERATOR EXAMINATION: XR WRIST LEFT 3 OR MORE [...] - Final * eGFR (11/15/2024 1:46 PM ANSWERING SERVICE OPERATOR) eGFR 67 >=60 mL/min/1. 73 m2 Comment: [...] last reviewed 2021. Blood 11/15/2024 1:46 PM ANSWERING SERVICE OPERATOR 11/15/2024 2:48 PM ANSWERING SERVICE OPERATOR us Marialuisa Fraknlin NP LAB BLOOD ORDERABLES Final Result [facility] Department [place] [address] * Differential, auto (11/15/2024 1:46 PM ANSWERING SERVICE OPERATOR) Neutrophil abs 3.2 1.5 - 6.5 K/cumm Imm gran abs 0.0 0.0 - 0.1 K/cumm [facility] Lymphocyte abs 1.1 0.8 - 3.3 K/cumm [facility] Monocyte abs 0.6 0.2 - 0.8 K/cumm [facility] Eosinophil abs 0.1 0.0 - 0.5 K/cumm [facility] Basophil abs 0.1 0.0 - 0.1 K/cumm [facility] Neutrophil pct 63.6 % [facility] Comment: Interpretive Data Percent cell count reference ranges are not reported, since discordance with absolute values may lead to misinterpretation of CBC data. Current Interpretive Data was last revised on 2018. Imm gran pct 0.4 % [facility] Comment: Interpretive Data Percent cell count reference ranges are not reported, since discordance with absolute values may lead to misinterpretation of CBC data. Current Interpretive Data was last revised on 2018. Lymphocyte pct 21.4 % [facility] Comment: Interpretive Data Percent cell count reference ranges are not reported, since discordance with absolute values may lead to misinterpretation of CBC data. Current Interpretive Data was last revised on 2018. Monocyte pct 11.4 % [facility] Comment: Interpretive Data Percent cell count reference ranges are not reported, since discordance with absolute values may lead to misinterpretation of CBC data. Current Interpretive Data was last revised on 2018. Eosinophil pct 2.0 % [facility] Comment: Interpretive Data Percent cell count reference ranges are not reported, since discordance with absolute values may lead to misinterpretation of CBC data. Current Interpretive Data was last revised on 2018. Basophil pct 1.2 % [facility] Comment: Interpretive Data Percent cell count reference ranges are not reported, since discordance with absolute values may lead to misinterpretation of CBC data. Current Interpretive Data was last revised on 2018. Blood 11/15/2024 1:46 PM ANSWERING SERVICE OPERATOR 11/15/2024 1:59 PM ANSWERING SERVICE OPERATOR us Marialuisa Franklin BUSINESS DEVELOPMENT MANAGER LAB BLOOD ORDERABLES Final Result [facility] [address] [facility] Department [place] [address] * CBC with auto differential (11/15/2024 1:46 PM ANSWERING SERVICE OPERATOR) WBC 5.0 3.8 - 9.9 K/cumm Hgb 13.7 11.9 - 15.5 g/dL [facility] Hct 41.1 35.6 - 45.5 % [facility] Plt 256 150 - 400 K/cumm [facility] MPV 11.0 9.1 - 12.3 fL [facility] RBC 4.32 3.90 - 5.20 M/cumm [facility] MCV 95.1 81.3 - 96.4 fL [facility] MCH 31.7 27.1 - 33.3 pg [facility] MCHC 33.3 32.3 - 35.7 g/dL [facility] RDW CV 13.3 11.1 - 14.9 % [facility] RDW SD 47.1 35.7 - 48.1 fL [facility] NRBC abs 0.00 0.00 - 0.01 K/cumm [facility] Blood 11/15/2024 1:46 PM ANSWERING SERVICE OPERATOR 11/15/2024 1:59 PM ANSWERING SERVICE OPERATOR us Marialuisa Franklin BUSINESS DEVELOPMENT MANAGER LAB BLOOD ORDERABLES Final Result [facility] [address] [facility] Department [place] [address] * Comprehensive metabolic panel (11/15/2024 1:46 PM ANSWERING SERVICE OPERATOR) Sodium 139 135 - 145 mmol/L Potassium, pl 4.5 3.3 - 4.9 mmol/L [facility] Chloride 103 97 - 110 mmol/L [facility] CO2 26 22 - 32 mmol/L [facility] Anion gap 10 2 - 15 mmol/L [facility] BUN 15 6 - 25 mg/dL [facility] Creatinine 0.92 0.60 - 1.10 mg/dL [facility] Glucose 105 70 - 199 mg/dL [facility] Comment: Interpretive Data Fasting glucose [...] 2022. Calcium 9.5 8.5 - 10.3 mg/dL [facility] Bilirubin, total 0.3 0.1 - 1.2 mg/dL [facility] Protein, pl 7.1 6.5 - 8.5 g/dL [facility] Albumin 4.3 3.5 - 5.0 g/dL [facility] Alk phos 121 40 - 130 Units/L [facility] ALT 19 7 - 45 Units/L [facility] AST 22 10 - 45 Units/L [facility] Blood 11/15/2024 1:46 PM ANSWERING SERVICE OPERATOR 11/15/2024 2:48 PM ANSWERING SERVICE OPERATOR us Marialuisa Franklin BUSINESS DEVELOPMENT MANAGER LAB BLOOD ORDERABLES Final Result [facility] [address] [facility] Department [place] [address] * TB test, quantiferon gold (11/07/2024 3:55 PM ANSWERING SERVICE OPERATOR) [facility] QuantiFERON(R)-T B Gold Plus, 1 Tube [...] T-lymphocytes. For additional information, please refer to https://[email or web address].CarWale/faq/FUS983 (This link is being provided for informational/ educational purposes only.) Blood 11/07/2024 3:55 PM ANSWERING SERVICE OPERATOR 11/07/2024 3:56 PM ANSWERING SERVICE OPERATOR us Marialuisa Franklin BUSINESS DEVELOPMENT MANAGER LAB BLOOD ORDERABLES Final Result [facility] [id number] [address] [phone] * Dexa Axial Skeleton Bone Density 1 or 2 Site (03/08/2024 9:24 AM CDT) Anatomical Region Laterality Modality Body N/A Radiographic Erna ging Narrative 03/08/2024 9:48 PM CDT Patient Name: Sheri Shin Date of : 1955 Date of scan: 03/08/2024 Bone mineral density was performed on a [employer] Discovery Densitometer. Based on machine cross-calibration and [...] by the International Society of Clinical Densitometry. [id number] Marialuisa Franklin NP IMG DXA PROCEDURES Final R esult * Hepatitis panel, acute (05/24/2020 9:45 AM CDT) Hep A IgM Nonreactive Nonreactive [facility] Comment: Interpretive Data: If Hep A IgM Ab is reported as Equivocal, a new sample should be drawn in two weeks for testing. Current interpretive data was last revised on 19. Hep B core IgM Nonreactive Nonreactive [facility] Comment: Interpretive Data If HepB Core IgM Ab is reported as Equivocal, a new sample should be drawn in two weeks for testing. Current interpretive data was last revised on 19. Hep C Ab Nonreactive Nonreactive [facility] Comment:Antibodies to HCV no t detected. Does NOT exclude the possibility of recent exposure to HCV. HepBsAg Nonreactive Nonreactive [facility] Blood specimen (specimen) 05/24/2020 9:45 AM CDT 05/24/2020 12:08 PM CDT Marialuisa Franklin NP LAB MICROBIOLOGY - GENERAL ORDERABLES Edited Result - Final [facility] Department [place] [address] from Last 3 Months or Most Recently Relevant to Health Maintenance Insurance [employer] [facility] [employer] MEDICARE MEDICARE MED[employer]IONS Care Teams County Assessor Relationship Specialty Start Date End Date Kerry Coffman DO [address] [place] [address] PCP - General Internal Medicine 04/19/24
--- OUTSIDE RECORDS SUMMARY | 2024-12-13 22:38 | XMS_ITS | Referral Summary ---
Author Organization [facility] Address [address] [place] [address] Care Team Providers Care Credit Risk Review Officer Name Role Phone Kerry Coffman DO Primary Care Provider [phone] Source Comments [facility],non-owned Affiliates and Associated Physician Practices is amultiple site organization consisting of ambulatory clinics and hospital sitesin [place], [place], [place] and [place]. This disclosure is being madepursuant to the Care Everywhere program and may not contain all information available regarding this patient. Last updated 18.[facility] [employer] Encounters Date Type Department Care Team Description 12/13/2024 Orders Only [facility] - Neurology [address], [place] [address] Moncho Salcedo APRN-METAL POURER Cognitive decline 12/08/2024 Travel 12/08/2024 7:08 AM QUALITY ASSURANCE MONITOR CHASSIS - 12/08/2024 9:16 AM QUALITY ASSURANCE MONITOR CHASSIS Hospital Encounter [facility]IC RAD [address] [place] [address] Cornelio Lima MD Discharge Disposition: Home or Self Care 12/08/2024 9:17 AM QUALITY ASSURANCE MONITOR CHASSIS - 12/08/2024 11:59 PM QUALITY ASSURANCE MONITOR CHASSIS Hospital Encounter [facility] CAT SCAN [address] [place] [address] Cornelio Lima MD Discharge Disposition: Home or Self Care 12/08/2024 9:17 AM QUALITY ASSURANCE MONITOR CHASSIS - 12/08/2024 11:59 PM QUALITY ASSURANCE MONITOR CHASSIS Hospital Encounter [facility] CAT [facility] [address] [place] [address] Cornelio Lima MD Discharge Disposition: Home or Self Care 11/28/2024 Telephone [facility] - Neurology [address] [place] [phone] Moncho Salcedo APRN-METAL POURER Medication Prior Auth Request (Emgality) 11/23/2024 10:58 AM QUALITY ASSURANCE MONITOR CHASSIS - 11/23/2024 11:59 PM QUALITY ASSURANCE MONITOR CHASSIS Hospital Encounter [facility] [address] [place] [address] Cornelio Lima MD Discharge Disposition: Home or Self Care 11/23/2024 10:58 AM QUALITY ASSURANCE MONITOR CHASSIS - 11/23/2024 11:59 PM QUALITY ASSURANCE MONITOR CHASSIS Hospital Encounter [facility] [address] [place] [address] Cornelio Lima MD Discharge Disposition: Home or Self Care 11/23/2024 9:49 AM QUALITY ASSURANCE MONITOR CHASSIS - 11/23/2024 10:57 AM QUALITY ASSURANCE MONITOR CHASSIS Hospital Encounter [facility] [address] [place] [address] Cornelio Lima MD Discharge Disposition: Home or Self Care 11/23/2024 Travel 11/23/2024 10:00 AM QUALITY ASSURANCE MONITOR CHASSIS Office Visit [facility] Orth[facility]ics [address] [place] [phone] Cornelio Lima MD Lumbar spine pain (Primary Dx); Lumbar spondylosis; Spondylolisthesis of lumbar region; Degenerative scoliosis in adult patient; Cervical spondylosis with myelopathy; Cervicalgia 11/14/2024 Telephone [facility] [address] [place] [phone] Moncho Salcedo APRN-METAL POURER Medication Clarification (Emgaltiy) 11/11/2024 Travel 11/11/2024 10:00 AM QUALITY ASSURANCE MONITOR CHASSIS Anesthesia Event [facility] [address] [place] [phone] Doug Forrester MD Dobbs, Kristin L, APPLIED STATISTICIAN-GIANNI 11/11/2024 10:15 AM QUALITY ASSURANCE MONITOR CHASSIS - 11/11/2024 11:00 AM QUALITY ASSURANCE MONITOR CHASSIS Surgery [facility] ENDOSCOPY [address] [place] [address] Sixto Cornell MD COLONOSCOPY SCREEN--extended prep 11/11/2024 8:14 AM QUALITY ASSURANCE MONITOR CHASSIS - 11/11/2024 11:24 AM QUALITY ASSURANCE MONITOR CHASSIS Hospital Encounter [facility] [address] [place] [address] Sixto Cornell MD Surgery General Discharge Disposition: Home or Self Care 11/04/2024 Patient Outreach [facility] ENDOSCOPY [address] [place] [address] Samantha Monterroso RN 11/02/2024 Travel 11/02/2024 3:30 PM QUALITY ASSURANCE MONITOR CHASSIS Office Visit [facility] Neurology [address] [place] [phone] Moncho Salcedo APRN-CNP Intractable 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 (Primary Dx) 10/26/2024 Travel 10/26/2024 10:30 AM QUALITY ASSURANCE MONITOR CHASSIS Office Visit [facility] GI [address] [place] [phone] Yolanda Greer APRN-CNP Chronic diarrhea (Primary Dx) 10/25/2024 Orders Only [facility] ENDOSCOPY [address] [place] [address] Wendy Humphrey RN 10/24/2024 Travel 10/20/2024 Telephone [facility] Centralized Scheduling [address] [place] [address] Moncho Salcedo APRN-CNP Appointment 10/06/2024 Orders Only [facility] OP [address] [place] [address] Alok Christie III, MD Spondylolisthesis at L4-L5 level 09/27/2024 Travel 09/27/2024 Telephone [facility] Neurology [address] [place] [phone] Rissa Vo MD Med Question 09/19/2024 9:05 AM QUALITY ASSURANCE MONITOR CHASSIS - 09/19/2024 11:59 PM QUALITY ASSURANCE MONITOR CHASSIS Hospital Encounter [facility] OP [address] [place] [address] Kerry Coffman DO Discharge Disposition: Home or Self Care 09/19/2024 Travel 09/19/2024 8:00 AM QUALITY ASSURANCE MONITOR CHASSIS Office Visit [facility] - Internal Med [address] [place] [address] Kerry Coffman DO Routine general medical examination at health care facility (Primary Dx); Acute bilateral low back pain without sciatica; Acute pain of left knee; Type 2 diabetes mellitus with hyperglycemia, without long-term current use of insulin ([facility]); Chronic diarrhea; Migraine without aura and without status migrainosus, not intractable; Benign essential tremor; Bipolar affective disorder, remission status unspecified ([facility]); Rheumatoid arthritis with negative rheumatoid factor, involving unspecified site ([facility]) 09/15/2024 Refill [facility] - Neurology [address], [place] [address] Rissa Vo MD MEDICATION REFILL from Last [...] hyperglycemia, without long-term current use of insulin ([facility]) Use 1 Each 2 times daily 12/08/2022 [...] route every 30 days Active blood glucose (TelxTouch Ultra) test stripIndications:T ype 2 diabetes mellitus with hyperglycemia, without long-term current use of insulin ([facility]) USE 1 STRIP TO CHECK GLUCOSE TWICE [...] rhinitis, unspecified seasonality, unspecified trigger,Chronic daily headache Ty Ty 2 (two) sprays into each nostril once daily 16 g 6 08/11/2024 Active azelastine (Astelin) 0.1 % nasal sprayIndications:C hronic rhinitis,Allergic rhinitis, unspecified seasonality, unspecified trigger,Chronic daily headache Ty Ty 1 (one) spray into each nostril 2 [...] hyperglycemia, without long-term current use of insulin ([facility]) Use 1 device as directed 1 kit [...] Sex Assigned at Female 09/16/2024 2:41 PM QUALITY ASSURANCE MONITOR CHASSIS Gender Identity Female 09/16/2024 2:41 PM QUALITY ASSURANCE MONITOR CHASSIS Sexual Orientation Straight 09/16/2024 2: 41 PM QUALITY ASSURANCE MONITOR CHASSIS Last Filed Vital Signs Vital Sign Reading Time Taken Comments Blood Pressure 114/82 12/08/2024 12:30 PM QUALITY ASSURANCE MONITOR CHASSIS Pulse 59 12/08/2024 12:30 PM QUALITY ASSURANCE MONITOR CHASSIS Temperature 36.6 C (97.8 F) 12/08/2024 10:30 AM QUALITY ASSURANCE MONITOR CHASSIS Respiratory Rate 14 12/08/2024 12:30 PM QUALITY ASSURANCE MONITOR CHASSIS Oxygen Saturation 96% 12/08/2024 12:30 PM QUALITY ASSURANCE MONITOR CHASSIS Inhaled Oxygen Concentration - - Weight 66.9 kg (147 lb 8 oz) 12/08/2024 8:01 AM QUALITY ASSURANCE MONITOR CHASSIS Height 167.6 cm (5' 6 ) 12/08/2024 8:01 AM QUALITY ASSURANCE MONITOR CHASSIS Body Mass Index 23.81 12/08/2024 8:01 AM QUALITY ASSURANCE MONITOR CHASSIS Functional Status Functional Status Response Date of [...] st Contact Info) Description 12/15/2024 2:20 PM QUALITY ASSURANCE MONITOR CHASSIS Office Visit [facility] - Endocrinology [address] [place] [phone] Marquise Adames MD [address] [place] [address] [place] [address] 01/04/2025 9:15 AM CDT Office Visit [facility] - Orthopedics [address] [place] [phone] Cornelio Lima MD [address] [place] [address] 01/25/2025 10:30 AM CDT Office Visit [facility] GI [address] [place] [address], [place] [address] Yolanda Greer, APPLIED STATISTICIAN-METAL POURER [address] [place] [phone] 02/09/2025 11:15 AM CDT Office Visit [facility] - Ophthalmology [address] [place] [address], [place] [address] Percy Matute MD [address] [place] [address] [place] [phone] 02/09/2025 4:00 PM CDT Office Visit [facility] - Allergy [address] [place] [address], [place] [address] Papito Morales MD [address] [place] [address] 2L DIV OF ALLERGY/[place] [address] 03/02/2025 1:00 PM CDT Office Visit [facility] - Neurology [address] [place] [address], [place] [address] Moncho Salcedo, APPLIED STATISTICIAN-METAL POURER [address] [place] [address] [address] [place] [phone] 03/20/2025 11:00 AM CDT Office Visit [facility] - Internal Med [address] [place] [address], [place] [phone] Kerry Coffman DO [address] [place] [address] [address] DIV [place] [address] 04/13/2025 3:00 PM CDT Office Visit [facility] - Allergy [address] [place] [address], [place] [phone] Papito Morales MD [address] OF ALLERGY/[place] [address] Goals Goal Patient Goal Type Associated Problems Recent Progress Patient-Stated? Author Medication Management General On track( 025 10:42 AM QUALITY ASSURANCE MONITOR CHASSIS) Marion Scott, RN Note: Expected end date: ongoing Interventions: Take all medications as prescribed Medical Devices Implanted Type Area Mine Production Engineer Device Identifier Shelf Expiration Date Model / Serial / Lot Slnt Dura Duraseal Pg Trilysine Amine 5 Implanted:Qty: 1 on 03/17/2022 by Jackelyn Yang MD at [facility] Left: Cranial [employer] 08/11/2023 [id number] / / [id number] Guardian Branial Yuriy Hole Cover Sys Implanted:Qty: 1 on 03/17/2022 by Jackelyn Yang MD at [facility] Left: Cranial [employer] 01/01/2024 6010 / / [id number] Directional Lead Implanted:Qty: 1 on 03/17/2022 by Shailesh North MD at [facility] Left: Cranial [employer] 09/25/2023 6172 / [id number] / Lead Extension Implanted:Qty: 1 on 03/24/2022 by Shailesh North MD at [facility] Left: Neck Telinet 01/15/2024 [id number] / / [id number] Generator Implanted:Qty: 1 on 03/24/2022 by Shailesh North MD at [facility] Left: Chest [employer] 11/19/2023 6662 / / [id number] [place] Spnl 140mm 6.35mm Ti Str Implanted:Qty: 1 on 08/29/2022 by Shailesh North MD at [facility] Right: Scalp [employer] 04/02/2024 6010 / / [employer] Dbs System Implanted:Qty: 1 on 08/29/2022 by Joshua Gill MD at [facility] Right: Brain 03/19/2024 6172 / [id number] / Description:cost per Levar [employer] Dbs System Implanted:Qty: 1 on 08/29/2022 by Joshua Gill MD at [facility] Right: Chest Wall 04/23/2024 6373 / [id number] / Description:cost per levar Procedures Procedure Name Priority Date/Time Associated Diagnosis Comments FL MYELOGRAM 2 OR MORE REGIONS Routine 12/08/2024 10:27 AM QUALITY ASSURANCE MONITOR CHASSIS Lumbar spine pain CT LUMBAR POST MYELOGRAM Routine 12/08/2024 10:25 AM QUALITY ASSURANCE MONITOR CHASSIS Lumbar spine pain CT CERVICAL POST MYELOGRAM Routine 12/08/2024 10:25 AM QUALITY ASSURANCE MONITOR CHASSIS Lumbar spine pain XR SPINE ENTIRE 2 OR 3VW Routine 11/23/2024 11:09 AM QUALITY ASSURANCE MONITOR CHASSIS Lumbar spine pain XR CERVICAL SPINE 2 OR 3VW Routine 11/23/2024 11:06 AM QUALITY ASSURANCE MONITOR CHASSIS Lumbar spine pain XR LUMBAR SPINE 2 OR 3VW Routine 11/23/2024 10:00 AM QUALITY ASSURANCE MONITOR CHASSIS Lumbar spine pain PATHOLOGY TISSUE Routine 11/11/2024 10:1 6 AM QUALITY ASSURANCE MONITOR CHASSIS Screen for colon cancer CT COLOREC CANC SCRN,SCOPY NOT HI RISK 11/11/2024 9:55 AM QUALITY ASSURANCE MONITOR CHASSIS Screen for colon cancer ENDOSCOPY, COLON, SCREENING Routine 11/11/2024 9:52 AM QUALITY ASSURANCE MONITOR CHASSIS GLUCOSE - POINT OF CARE Routine 11/11/2024 9:19 AM QUALITY ASSURANCE MONITOR CHASSIS CALPROTECTIN FECAL Routine 11/07/2024 3: 52 PM QUALITY ASSURANCE MONITOR CHASSIS Chronic diarrhea CULTURE STOOL PANEL Routine 11/07/2024 3 :52 PM QUALITY ASSURANCE MONITOR CHASSIS Chronic diarrhea C DIFFICILE CYTOTOXIN Routine 11/07/2024 3:51 PM QUALITY ASSURANCE MONITOR CHASSIS Chronic diarrhea PROC DEEP BRAIN STIMULATOR Routine 11/03/2024 2:08 PM QUALITY ASSURANCE MONITOR CHASSIS Intractable 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 XR LUMBAR SPINE 4VW OR MORE Routine 09/19/2024 9:18 AM QUALITY ASSURANCE MONITOR CHASSIS Acute bilateral low back pain without sciatica XR KNEE LEFT 4VW OR MORE Routine 09/19/2024 9:18 AM QUALITY ASSURANCE MONITOR CHASSIS Acute pain of left knee COMPREHENSIVE METABOLIC [...] 2 or More Regions (12/08/2024 10:27 AM QUALITY ASSURANCE MONITOR CHASSIS) Anatomical Region Laterality Modality Spine Digital Radiogra phy 12/08/2024 1:17 PM QUALITY ASSURANCE MONITOR CHASSIS Impressions 12/13/2024 12:15 PM QUALITY ASSURANCE MONITOR CHASSIS IMPRESSION: 1.Successful lumbar puncture for cervical and [...] degenerative disc and joint disease as detailed hvtgz-br-iawjh above, worse at L4-L5, as outlined. 2.Transitional anatomy as noted above. The report is dictated by Addi Arambula MD, (vice president of engineering) Attending Physician: Dr. [place] Blackmon Automobile Contract Clerk: Dr. Addi Arambula MD, (vice president of engineering) The procedure was performed by the: The health center assistant, and the attending radiologist was present [...] 12/13/2024 12:15 PM Narrative 12/13/2024 12:15 PM QUALITY ASSURANCE MONITOR CHASSIS PROCEDURE: FL MYELOGRAM 2 OR MORE REGIONS, CT LUMBAR POST MYELOGRAM, CT CERVICAL POST MYELOGRAM DATE/TIME OF EXAM: 12/08/2024 10:34 AM CLINICAL INFORMATION: PROCEDURE: FL MYELOGRAM 2 OR MORE REGIONS, CT LUMBAR POST MYELOGRAM, CT CERVICAL POST MYELOGRAM, DATE/TIME OF EXAM: 12/08/2024 10:34 AM, LOCATION [facility] INDICATION: M54.50: Lumbar spine pain ADDITIONAL CLINICAL INFORMATION: Ordering Provider Reason For Exam: myelopathy (accession [id number]), chronic low back pain (accession [id number]) Technologist Note: None. Additional: None. EXAMINATION: 1.Lumbar [...] patient was then transferred to the care director unit for further observation and 2 hours [...] no high-grade central canal stenosis. There is vpxf-jt-pfffcewx facet osteoarthritis. There is mild bilateral neural foraminal stenosis. Procedure Note [place] Blackmon MD - 12/13/2024 PROCEDURE: FL MYELOGRAM 2 OR MORE REGIONS, CT LUMBAR POST MYELOGRAM, CT CERVICAL POST MYELOGRAM DATE/TIME OF EXAM: 12/08/2024 10:34 AM CLINICAL INFORMATION: PROCEDURE: FL MYELOGRAM 2 OR MORE REGIONS, CTLUMBAR POST MYELOGRAM, CT CERVICAL POST MYELOGRAM, DATE/TIME OF EXAM:12/08/2024 10:34 AM, LOCATION [facility] INDICATION: M54.50: Lumbar spine pain ADDITIONAL CLINICAL INFORMATION: Ordering Provider Reason For Exam: myelopathy (accession [id number]), chronic low back pain (accession [id number]) Technologist Note: None. Additional: None. EXAMINATION: 1.Lumbar [...] physician: Dr. Blackmon was present for the mariscla portions ofthis procedure. The L3-4 level was [...] The patient wasthen transferred to the care director unit for further observation and 2hours of [...] island in the right aspect of the H1tralquhcr body. Vertebral bodies are normal in height [...] is no high-grade central canal stenosis. Thereis utwe-gj-qqxaqxzl facet osteoarthritis. There is mild bilateral neural [...] 1.Multilevel degenerative disc and joint disease as xcrlcwqwynico-os-zufnz above, worse at L4-L5, as outlined. 2.Transitional anatomy as noted above. The report is dictated by Addi Arambula MD, (vice president of engineering) Attending Physician: Dr. [place] Blackmon Automobile Contract Clerk: Dr. Addi Arambula MD, (vice president of engineering) The procedure was performed by the: The health center assistant, and the attending radiologist was present for allcritical and mariscal portions of the procedure, and was immediately available [facility] during the entire procedure. The attending radiologist performed the following procedural activities: IDr. [place] was there and supervised mariscal portions of the procedure, not scrubbed. IMagdalena MD have personally reviewed and interpretedthis examination/study. > Interpreting Provider: [place] Blackmon MD on 12/13/2024 12:15 PM Cornelio Lima MD FLUOROSCOPY OR DERABLES * CT Lumbar Post Myelogram (12/08/2024 10:25 AM QUALITY ASSURANCE MONITOR CHASSIS) Anatomical Region Laterality Modality Spine Computed Tomogra phy 12/08/2024 1:17 PM QUALITY ASSURANCE MONITOR CHASSIS Impressions 12/13/2024 12:15 PM QUALITY ASSURANCE MONITOR CHASSIS IMPRESSION: 1.Successful lumbar puncture for cervical and [...] degenerative disc and joint disease as detailed izahj-wj-dipex above, worse at L4-L5, as outlined. 2.Transitional anatomy as noted above. The report is dictated by Addi Arambula MD, (vice president of engineering) Attending Physician: Dr. [place] Blacmkon Automobile Contract Clerk: Dr. Addi Arambula MD, (vice president of engineering) The procedure was performed by the: The health center assistant, and the attending radiologist was present [...] 12/13/2024 12:15 PM Narrative 12/13/2024 12:15 PM QUALITY ASSURANCE MONITOR CHASSIS PROCEDURE: FL MYELOGRAM 2 OR MORE REGIONS, CT LUMBAR POST MYELOGRAM, CT CERVICAL POST MYELOGRAM DATE/TIME OF EXAM: 12/08/2024 10:34 AM CLINICAL INFORMATION: PROCEDURE: FL MYELOGRAM 2 OR MORE REGIONS, CT LUMBAR POST MYELOGRAM, CT CERVICAL POST MYELOGRAM, DATE/TIME OF EXAM: 12/08/2024 10:34 AM, LOCATION [facility] INDICATION: M54.50: Lumbar spine pain ADDITIONAL CLINICAL INFORMATION: Ordering Provider Reason For Exam: myelopathy (accession [id number]), chronic low back pain (accession [id number]) Technologist Note: None. Additional: None. EXAMINATION: 1.Lumbar [...] patient was then transferred to the care director unit for further observation and 2 hours [...] no high-grade central canal stenosis. There is rthx-vl-vwxsdyrj facet osteoarthritis. There is mild bilateral neural foraminal stenosis. Procedure Note [place] Blackmon MD - 12/13/2024 PROCEDURE: FL MYELOGRAM 2 OR MORE REGIONS, CT LUMBAR POST MYELOGRAM, CT CERVICAL POST MYELOGRAM DATE/TIME OF EXAM: 12/08/2024 10:34 AM CLINICAL INFORMATION: PROCEDURE: FL MYELOGRAM 2 OR MORE REGIONS, CTLUMBAR POST MYELOGRAM, CT CERVICAL POST MYELOGRAM, DATE/TIME OF EXAM:12/08/2024 10:34 AM, LOCATION [facility] INDICATION: M54.50: Lumbar spine pain ADDITIONAL CLINICAL INFORMATION: Ordering Provider Reason For Exam: myelopathy (accession [id number]), chronic low back pain (accession [id number]) Technologist Note: None. Additional: None. EXAMINATION: 1.Lumbar [...] The patient wasthen transferred to the care director unit for further observation and 2hours of [...] island in the right aspect of the E7xqgeyiaaf body. Vertebral bodies are normal in height [...] is no high-grade central canal stenosis. Thereis nogx-hf-jiftrhjx facet osteoarthritis. There is mild bilateral neural [...] 1.Multilevel degenerative disc and joint disease as samqoxwngbwbq-jm-unfsd above, worse at L4-L5, as outlined. 2.Transitional anatomy as noted above. The report is dictated by Addi Arambula MD, (vice president of engineering) Attending Physician: Dr. [place] Blackmon Automobile Contract Clerk: Dr. Addi Arambula MD, (vice president of engineering) The procedure was performed by the: The health center assistant, and the attending radiologist was present for allcritical and mariscal portions of the procedure, and was immediately [facility] during the entire procedure. The attending radiologist performed the following procedural activities: Dr. [place] Gutierrez was there and supervised mariscal portions of the procedure, not scrubbed. [place] Gutierrez MD have personally reviewed and interpretedthis examination/study. > Interpreting Provider: [place] Blackmon MD on 12/13/2024 12:15 PM Cornelio Lima MD CT ORDERABLES * CT Cervical Post Myelogram (12/08/2024 10:25 AM QUALITY ASSURANCE MONITOR CHASSIS) Anatomical Region Laterality Modality Spine Computed Tomogra phy 12/08/2024 1:17 PM QUALITY ASSURANCE MONITOR CHASSIS Impressions 12/13/2024 12:15 PM QUALITY ASSURANCE MONITOR CHASSIS IMPRESSION: 1.Successful lumbar puncture for cervical and [...] degenerative disc and joint disease as detailed lxkqg-cs-yeska above, worse at L4-L5, as outlined. 2.Transitional anatomy as noted above. The report is dictated by Addi Arambula MD, (vice president of engineering) Attending Physician: Dr. [place] Blackmon Automobile Contract Clerk: Dr. Addi Arambula MD, (vice president of engineering) The procedure was performed by the: The health center assistant, and the attending radiologist was present [...] 12/13/2024 12:15 PM Narrative 12/13/2024 12:15 PM QUALITY ASSURANCE MONITOR CHASSIS PROCEDURE: FL MYELOGRAM 2 OR MORE REGIONS, CT LUMBAR POST MYELOGRAM, CT CERVICAL POST MYELOGRAM DATE/TIME OF EXAM: 12/08/2024 10:34 AM CLINICAL INFORMATION: PROCEDURE: FL MYELOGRAM 2 OR MORE REGIONS, CT LUMBAR POST MYELOGRAM, CT CERVICAL POST MYELOGRAM, DATE/TIME OF EXAM: 12/08/2024 10:34 AM, LOCATION [facility] INDICATION: M54.50: Lumbar spine pain ADDITIONAL CLINICAL INFORMATION: Ordering Provider Reason For Exam: myelopathy (accession [id number]), chronic low back pain (accession [id number]) Technologist Note: None. Additional: None. EXAMINATION: 1.Lumbar [...] patient was then transferred to the care director unit for further observation and 2 hours [...] no high-grade central canal stenosis. There is expl-hp-mlwtjjuu facet osteoarthritis. There is mild bilateral neural foraminal stenosis. Procedure Note [place] Blackmon MD - 12/13/2024 PROCEDURE: FL MYELOGRAM 2 OR MORE REGIONS, CT LUMBAR POST MYELOGRAM, CT CERVICAL POST MYELOGRAM DATE/TIME OF EXAM: 12/08/2024 10:34 AM CLINICAL INFORMATION: PROCEDURE: FL MYELOGRAM 2 OR MORE REGIONS, CTLUMBAR POST MYELOGRAM, CT CERVICAL POST MYELOGRAM, DATE/TIME OF EXAM:12/08/2024 10:34 AM, LOCATION [facility] INDICATION: M54.50: Lumbar spine pain ADDITIONAL CLINICAL INFORMATION: Ordering Provider Reason For Exam: myelopathy (accession [id number]), chronic low back pain (accession [id number]) Technologist Note: None. Additional: None. EXAMINATION: 1.Lumbar [...] The patient wasthen transferred to the care director unit for further observation and 2hours of [...] island in the right aspect of the G3illgbouui body. Vertebral bodies are normal in height [...] is no high-grade central canal stenosis. Thereis nixd-bw-axhqfxpl facet osteoarthritis. There is mild bilateral neural [...] 1.Multilevel degenerative disc and joint disease as pvufgkpnatkxp-uk-yayun above, worse at L4-L5, as outlined. 2.Transitional anatomy as noted above. The report is dictated by Addi Arambula MD, (vice president of engineering) Attending Physician: Dr. Magdalena Blackmon Automobile Contract Clerk: Dr. Addi Arambula MD, (vice president of engineering) The procedure was performed by the: The health center assistant, and the attending radiologist was present for allcritical and mariscal portions of the procedure, and was immediately available [facility] during the entire procedure. The attending radiologist performed the following procedural activities: Dr. Magdalena Gutierrez was there and supervised mariscal portions of the procedure, not scrubbed. Magdalena Gutierrez MD have personally reviewed and interpretedthis examination/study. > Interpreting Provider: Magdalena Blackmon MD on 12/13/2024 12:15 PM Cornelio Lima MD CT ORDERABLES * XR Spine Entire 2 or 3Vw (11/23/2024 11:09 AM QUALITY ASSURANCE MONITOR CHASSIS) Anatomical Region Laterality Modality Spine Radiographic Erna ging 11/23/2024 11:3 1 AM QUALITY ASSURANCE MONITOR [facility]ASSIS Impressions 11/23/2024 11:34 AM QUALITY ASSURANCE MONITOR [facility]ASSIS IMPRESSION: Mild scoliosis. > Interpreting Provider: Baljinder Henson MD on 11/23/2024 11:34 AM Narrative 11/23/2024 11:34 AM QUALITY ASSURANCE MONITOR [facility]ASSIS PROCEDURE: XR SPINE ENTIRE 2 OR 3VW [...] 10 degrees, a lower thoracic levo curve [id number] degrees, and a lumbar dextro curve measuring [...] Spine 2 or 3Vw (11/23/2024 11:06 AM QUALITY ASSURANCE MONITOR CHASSIS) Anatomical Region Laterality Modality Spine Radiographic Erna ging 11/23/2024 11:2 9 AM QUALITY ASSURANCE MONITOR [facility]ASSIS Impressions 11/23/2024 11:31 AM QUALITY ASSURANCE MONITOR [facility]ASSIS IMPRESSION: Moderate cervical spondylosis. > Interpreting Provider: Baljinder Henson MD on 11/23/2024 11:31 AM Narrative 11/23/2024 11:31 AM QUALITY ASSURANCE MONITOR [facility]ASSIS PROCEDURE: XR CERVICAL SPINE 2 OR 3VW [...] Spine 2 or 3Vw (11/23/2024 10:00 AM QUALITY ASSURANCE MONITOR CHASSIS) Anatomical Region Laterality Modality Spine Computed Radiogr aphy 11/23/2024 10:3 8 AM QUALITY ASSURANCE MONITOR CHASSIS Impressions 11/23/2024 10:39 AM QUALITY ASSURANCE MONITOR [facility]ASSIS IMPRESSION: Mild to moderate degenerative changes. > Interpreting Provider: Baljinder Henson MD on 11/23/2024 10:39 AM Narrative 11/23/2024 10:39 AM QUALITY ASSURANCE MONITOR [facility]ASSIS PROCEDURE: XR LUMBAR SPINE 2 OR 3VW [...] ORDERABLES * PATHOLOGY TISSUE (11/11/2024 10:16 AM QUALITY ASSURANCE MONITOR CHASSIS) Case Report Surgical Pathology Report Case: [id number] Authorizing Provider: Sixto Cornell MD Collected: 11/11/2024 10:16 AM Ordering Location: [facility] Received: 11/11/2024 10:58 AM Pathologist: Kenyatta Norris MD Specimens: A) - Polyp Ascending, ascending colon polyp B) - Polyp Descending, descending colon polyps 11/14/2024 3:20 PM [facility] Final Diagnosis Large intestine, ascending colon polyp, biopsy (A): - Tubular adenoma Large intestine, descending colon polyps, biopsy (B): - Tubular adenoma(s), fragmented 11/14/2024 3:20 PM [facility] Microscopic Description and Comment Microscopic examination substantiates the final diagnosis. 11/14/2024 3:20 PM [facility] Clinical History The patient is a 69-year-old woman who presents for high risk colon cancer surveillance (personal history of colonic polyps). Operative procedure/findings: Colonoscopy - 2 mm ascending colon polyp, 4 and 5 mm descending colon polyps, resected and retrieved 11/14/2024 3:20 PM [facility] Gross Description The [...] cassette labeled B1. RB 11/14/2024 3:20 PM [facility] Pathologist Location at [facility] 11/14/2024 3:20 PM [facility] Disclaimer The performance characteristics of all immunohistochemical and indirect immunofluorescence stains (if any) cited in this report were determined by the Histopathology Laboratory of [facility]. Some of these tests were developed by [...] the attending (teaching) pathologist. 11/14/2024 3:20 PM QUALITY ASSURANCE MONITOR CHASSIS [facility] Embedded Images 11/14/2024 3:20 PM QUALITY ASSURANCE MONITOR CHASSIS [facility] Biopsy, NOS POLYP / Unknown 11/11/2024 1 0:16 AM QUALITY ASSURANCE MONITOR CHASSIS 11/11/2024 10:58 AM QUALITY ASSURANCE MONITOR CHASSIS Comment:Pre-op diagnosis: Screen for colon cancer [Z12.11] Biopsy, NOS POLYP / Unknown 11/11/2024 1 0:19 AM QUALITY ASSURANCE MONITOR CHASSIS 11/11/2024 10:58 AM QUALITY ASSURANCE MONITOR CHASSIS Comment:Pre-op diagnosis: Screen for colon cancer [Z12.11] Sixto Cornell MD LAB - PATHOLOGY/CYTO LOGY ORDERABLES [facility] [address] [phone] * ENDOSCOPY, COLON, SCREENING (11/11/2024 9:52 AM QUALITY ASSURANCE MONITOR CHASSIS) Report Endoscopy POC Endoscopy Department Report _ [...] bowel preparation was evaluated using the BBPS (Langston Bowel Preparation Scale) with scores of: Right [...] non-mariscal portions. Procedure Code(s): --- Professional --- 92762, Colonoscopy, flexible; with removal of tumor(s), polyp(s), or other lesion(s) by snare technique 50343, 59, Colonoscopy, flexible; with biopsy, single or multiple Diagnosis Code(s): --- Professional --- Z86.010, Personal history of colonic polyps D12.2, Benign neoplasm of ascending colon D12.4, Benign neoplasm of descending colon K57.30, Diverticulosis of large intestine without perforation or abscess without bleeding CPT copyright 2021 [employer]. All rights reserved. The codes documented in this report are preliminary and upon java project manager review may be revised to meet current compliance requirements. Sixto Cornell MD 11/11/2024 10:36:45 AM This report has been signed electronically. Note Initiated On: 11/11/2024 9:52 AM Number of Addenda: [address] [address] [facility] [place] 11/11/2024 9:52 AM QUALITY ASSURANCE MONITOR CHASSIS Sixto Cornell MD GI PROCEDURE ORDERAB LES [facility] [place] * GLUCOSE - POINT OF CARE (11/11/2024 9:19 AM QUALITY ASSURANCE MONITOR CHASSIS) Glucose WB/POC 99 70 - 99 mg/dL 11/11/2024 9:54 AM QUALITY ASSURANCE MONITOR CHASSIS [facility] Specimen Type Venous 11/11/2024 9:54 AM [facility] Blood BLOOD SPECIMEN / Unknown 11/11/2024 9:19 AM QUALITY ASSURANCE MONITOR CHASSIS 11/11/2024 9:54 AM QUALITY ASSURANCE MONITOR CHASSIS Sixto Cornell MD LAB - POINT OF CARE ORDERABLES [place] [address] [place] [address], [facility] [phone] * CALPROTECTIN FECAL (11/07/2024 3:52 PM QUALITY ASSURANCE MONITOR CHASSIS) Calprotectin Fecal 69 mcg/g [facility] Comment: Reference [...] suggested for borderline values. Test Performed at: [facility] [address] [place] [address] JARRELL CALDERON MD,PHD,EDGARDO Stool STOOL SPECIMEN / Unknown 11/07/2024 3:52 PM QUALITY ASSURANCE MONITOR CHASSIS 11/08/2024 4:47 AM QUALITY ASSURANCE MONITOR CHASSIS Yolanda Greer APRN-METAL POURER LAB - [place] DY FLUID ORDERABLES [address] [address] * CULTURE STOOL PANEL (11/07/2024 3:52 PM QUALITY ASSURANCE MONITOR CHASSIS) Campylobacter Antigen [facility] Comment: CAMPYLOBACTER SPP. AG,EIA Micro Number: [id number] Test Status: Final Specimen Source: Stool Specimen Quality: Adequate Campy Ag Result: Not Detected Reference Range: Not Detected EIA [facility] Comment: SHIGA TOXINS, EIA W/RFL TO E.COLI O157 CULTURE Micro Number: [id number] Test Status: Final Specimen Source: Stool Specimen Quality: Adequate Shiga Toxin: Not Detected Reference Range: Not Detected Culture [facility] Comment: SALMONELLA AND SHIGELLA, CULTURE Micro Number: [id number] Test Status: Final Specimen Source: Stool Specimen Quality: Adequate Result: No Salmonella or Shigella isolated Test Performed at: [facility] [address] SAROJ FAUSTIN MD Stool STOOL SPECIMEN / Unknown 11/07/2024 3:52 PM QUALITY ASSURANCE MONITOR CHASSIS 11/07/2024 11:51 PM QUALITY ASSURANCE MONITOR CHASSIS Yolanda Greer APPLIED STATISTICIAN-METAL POURER LAB - [place] CROBIOLOGY ORDERABLES Performing Organization Address [facility] de Phone Number [facility] [address] [place] [address] * C DIFFICILE CYTOTOXIN (11/07/2024 3:51 PM QUALITY ASSURANCE MONITOR CHASSIS) Cytotoxin Assay Stool NOT DETECTED [facility] Comment: REFERENCE RANGE: NOT DETECTED Per [facility] the Clostridium difficile cytotoxicity assay, order code 4408, has served as a historical gold standard for diagnosing clinical significant disease caused by Clostridium difficile, however, it is not timely for routine diagnosis. [facility] guidelines now recognize either two step testing using Clostridium difficile toxin/Glutamate Dehydrogenase (GDH) with Reflex to PCR, order code 80854 or Clostridium difficile toxin B, Qualitative real time PCR, test code 83648 to be more sensitive and timely methods for the diagnosis of C. difficile colitis. For additional information, please refer to http://education.[employer]/faq/ESX032 (This link is being provided for informational/ educational purposes only.) Test Performed at: [facility] [address] [place] [address] JARRELL CALDERON MD,PHD,EDGARDO Stool STOOL SPECIMEN / Unknown 11/07/2024 3:51 PM QUALITY ASSURANCE MONITOR CHASSIS 11/08/2024 4:58 AM QUALITY ASSURANCE MONITOR CHASSIS Yolanda Greer APRN-METAL POURER LAB - [place] CROBIOLOGY ORDERABLES Performing Organization Address [facility] Co de Phone Number [facility] [address] [place] [address] * PROC DEEP BRAIN STIMULATOR (11/03/2024 2:08 PM QUALITY ASSURANCE MONITOR CHASSIS) Narrative Moncho Salcedo APRN-CNP - 11/03/2024 2:08 PM QUALITY ASSURANCE MONITOR CHASSIS Moncho Salcedo APRN-CNP 11/03/2024 4:00 PM Please see office notes for documentation- Thanks Moncho Salcedo APPLIED STATISTICIAN-METAL POURER PROCEDURE/MINOR SURGICAL ORDERABLES * XR Knee Left 4Vw or More (09/19/2024 9:18 AM QUALITY ASSURANCE MONITOR CHASSIS) Anatomical Region Laterality Modality Lower Extremity Digital Radiogra phy 09/19/2024 10:0 4 AM QUALITY ASSURANCE MONITOR [facility]ASSIS Impressions 09/19/2024 10:41 AM QUALITY ASSURANCE MONITOR CHASSIS IMPRESSION: No acute fracture or dislocation identified. Report dictated by Arnoldo Walker MD (vice president of engineering). Baljinder Gutierrez MD have personally reviewed and interpreted this examination/study. > Interpreting Provider: Baljinder Henson MD on 09/19/2024 10:41 AM Narrative 09/19/2024 10:41 AM QUALITY ASSURANCE MONITOR CHASSIS PROCEDURE: XR KNEE LEFT 4VW OR MORE, DATE/TIME OF EXAM: 09/19/2024 9:19 AM, LOCATION [facility] INDICATION: M25.562: Acute pain of left knee ADDITIONAL CLINICAL INFORMATION: COMPARISON: None. FINDINGS: The osseous structures are intact and well aligned without acute fracture or dislocation. The knee joint space is preserved. No joint effusion is seen. Procedure Note Baljinder Henson MD - 09/19/2024 PROCEDURE: XR KNEE LEFT 4VW OR MORE, DATE/TIME OF EXAM: 09/19/2024 9:19 AM, LOCATION [facility] INDICATION: M25.562: Acute pain of left knee ADDITIONAL CLINICAL INFORMATION: COMPARISON: None. FINDINGS: The osseous structures are intact and well aligned without acutefracture or dislocation. The knee joint space is preserved. No joint effusion is seen. IMPRESSION: No acute fracture or dislocation identified. Report dictated by Arnoldo Walker MD (vice president of engineering). Baljinder Gutierrez MD have personally reviewed and interpreted this examination/study. > Interpreting Provider: Baljinder Henson MD on 09/19/2024 10:41 AM Kerry Montemayorhbach DO DIAGNOSTIC IMAGING O RDERABLES * XR Lumbar Spine 4Vw or More (09/19/2024 9:18 AM QUALITY ASSURANCE MONITOR CHASSIS) Anatomical Region Laterality Modality Spine Digital Radiogra phy 09/19/2024 10:2 2 AM QUALITY ASSURANCE MONITOR CHASSIS Impressions 09/19/2024 3:01 PM QUALITY ASSURANCE MONITOR CHASSIS IMPRESSION: Moderate dextroscoliosis. Grade 1 anterior spondylolisthesis of L4 relative to L5 seen in association with mild instability as discussed above. > Dictated by Kim Noonan MD, (vice president of engineering). I, Sergio Omalley MD have personally reviewed and interpreted this examination/study. > Interpreting Provider: Sergio Omalley MD on 09/19/2024 3:01 PM Narrative 09/19/2024 3:01 PM QUALITY ASSURANCE MONITOR CHASSIS PROCEDURE: XR LUMBAR SPINE 4VW OR MORE, DATE/TIME OF EXAM: 09/19/2024 9:19 AM, LOCATION [facility] INDICATION: M54.50: Acute bilateral low back [...] MORE, DATE/TIME OF EXAM: 49:19 AM, LOCATION [facility] INDICATION: M54.50: Acute bilateral low back [...] Dictated by Kim Noonan MD, (vice president of engineering). I, Sergio Omalley MD have personally reviewed and interpreted this examination/study. > Interpreting Provider: Sergio Omalley MD on 09/19/2024 3:01 PM Kerry Coffman DO DIAGNOSTIC IMAGING O RDERABLES * (ABNORMAL) COMPREHENSIVE METABOLIC PANEL (07/20/2024 11:49 AM CDT) BUN 10 7 - 26 mg/dL 07/20/2024 12:52 PM [facility] Creatinine 0.80 0.56 - 0.96 mg/dL 07/20/2024 12:52 PM [facility] Sodium 139 136 - 145 mmol/L 07/20/2024 12:52 PM [facility] Potassium 4.3 3.5 - 4.5 mmol/L 07/20/2024 12:52 PM [facility] Chloride 103 98 - 107 mmol/L 07/20/2024 12:52 PM [facility] CO2 28 22 - 29 mmol/L 07/20/2024 12:52 PM [facility] Glucose 165(H) 70 - 115 mg/dL 07/20/2024 12:52 PM [facility] Calcium 9.8 8.4 - 10.2 mg/dL 07/20/2024 12:52 PM [facility] Protein Total 7.1 6.0 - 8.3 g/dL 07/20/2024 12:52 PM [facility] Albumin 4.2 3.4 - 5.0 g/dL 07/20/2024 12:52 PM [facility] Bilirubin Total 0.2 0.2 - 1.2 mg/dL 07/20/2024 12:52 PM [facility] Alkaline Phosphatase 124 40 - 150 U/L 07/20/2024 12:52 PM [facility] ALT 16 5 - 55 U/L 07/20/2024 12:52 PM [facility] AST 20 5 - 34 U/L 07/20/2024 12:52 PM [facility] Anion Gap 8 6 - 16 07/20/2024 12:52 PM [facility] BUN/Creatinine Ratio 13 7 - 23 07/20/2024 12:52 PM [facility] Osmolality Calculated 291 275 - 295 mOsm/kg 07/20/2024 12:52 PM [facility] Albumin/Globulin Ratio 1.4 1.1 - 2.3 07/20/2024 12:52 PM [facility] eGFR by CKD-EPI 80(L) >=90 mL/min/1.7 3 m2 07/20/2024 12:52 PM [facility] Blood BLOOD SPECIMEN / Unknown Lab Venipuncture / Unknown 07/20/2024 11:49 AM CDT 07/20/2024 12:17 PM CDT Yolanda Greer APPLIED STATISTICIAN-METAL POURER LAB - [place] EMISTRY ORDERABLES [facility] [address] [place] [address], [facility] [phone] * HEMOGLOBIN A1C - POINT OF CARE (AMB) [facility] (04/04/2024 11:34 AM CDT) Hemoglobin A1c POCT 5.4 % [address] BLOOD SPECIMEN / Unknown 04/04/2024 11:34 AM CDT Kerry Coffman DO LAB - POINT OF CARE ORDERABLES Performing Organization Address [facility]/ZIP Co de Phone Number [address] [place] [address], [facility] [phone] * MICROALB/CREAT RATIO URINE RANDOM PANEL (02/05/2023 [...] within a diagnostic category. Test Performed at: [facility] [address] [place] [address] SAROJ FAUSTIN MD 02/05/2023 12:2 6 PM CDT 02/05/2023 12:27 PM CDT Marquise Adames MD LAB - URINE CHEMISTR Y ORDERABLES Performing Organization Address City/State/[facility] Co de Phone Number [facility] [address] [place] [address] from Last 3 Months or Most Recently Relevant to Health Maintenance Advance Directives * Full Code (Latest Code Status on File) Date Activated Date Inactivated Comments 08/29/2022 4:40 PM 08/31/2022 1:59 PM * Full Code Date Activated Date Inactivated Comments 03/17/2022 3:37 PM 03/19/2022 1:47 PM Care Teams Credit Risk Review Officer Relationship Specialty Start Date End Date Kerry Coffman DO [address] OF [facility] [place] [address] PCP - General Internal Medicine 12/15/23
== END 2024-12-13 22:48 | disposition home or self-care (01) ==
LOC: ANHED 22:35
PROVIDERS: Emergency Provider Emergency Medicine
DX: S62.325A Displaced fracture of shaft of fourth metacarpal bone, left hand, initial encounter for closed fracture (principal); G25.81 Restless legs syndrome; M06.9 Rheumatoid arthritis, unspecified; Z87.440 Personal history of urinary (tract) infections; E78.5 Hyperlipidemia, unspecified; E11.9 Type 2 diabetes mellitus without complications; F31.9 Bipolar disorder, unspecified; W01.0XXA Fall on same level from slipping, tripping and stumbling without subsequent striking against object, initial encounter
CPT/HCPCS: 29125; 73110; 99284

== ENCOUNTER 2024-12-17 11:48 | Emergency (ER) | payer MEDICARE, SELFPAY ==
--- NOTE | ~2024-12-17 | XR_ITS ---
EXAMINATION: XR chest 1V DATE: 12/17/2024 12:29 INDICATION: Weakness. TECHNIQUE: A single frontal view of the chest was obtained. COMPARISON: Chest 2 views 10/07/2024 FINDINGS: There is no pneumonia, pleural effusion, or pneumothorax. The heart size is normal. There i s an electronic device overlie left chest with electrodes coursing into the neck. IMPRESSION: 1. No acute cardiopulmonary disease. Reviewed, dictated and finalized at location A. [employer] APPRENTICE [employer]
--- NOTE | ~2024-12-17 | CT_ITS ---
EXAMINATION: CT brain wo con DATE: 12/17/2024 13:43 INDICATION: Frequent falls. TECHNIQUE: Computed tomography (CT) of the head was performed without intravenous contrast. The mA wa s adjusted according to patient size. Iterative reconstruction technique was employed. The dose-lengt h product was 681.00 mGy-cm. COMPARISON: None FINDINGS: There are bilateral deep brain stimulators in expected positions. There is no intracranial hemorrhage, acute infarction, or abnormal intracranial mass lesion. The ventricles are normal in size . There is mild mucosal thickening in the ethmoid sinuses. There are likely changes of right ocular l ens replacement surgery. The mastoid air cells are normal. IMPRESSION: 1. No acute intracranial pathology. Reviewed, dictated and finalized at location A. UGATOR HELPER
[2024-12-17 11:49] VITALS: BP 104/67; PULSE 65; RESP 16; TEMP 36.4; O2SAT 96
--- NOTE | 2024-12-17 11:54 | ECG_ITS ---
Test Date: 2024-12-17 12:23:13 Measurements Intervals Burns Rate: 62 P: 23 NH: 199 QRS: 204 QRSD: 94 T: 127 QT: 428 QTc: 437 Interpretive Statements VERY POOR QUALITY ECG WITH BASELINE ELECTRICAL ARTIFACT SINUS RHYTHM POOR QUALITY TRACING PRECLUDES FURTHER DIAGNOSIS Compared to ECG 10/07/2024 13:34:06 ECG IS SIMILARLY OF VERY POOR QUALITY Electronically Signed On 12-17-2024 16:02:19 KELP OR SEAGRASS GATHERER by Venu Ortiz M.D.
[2024-12-17 12:10] LABS: Basophils Absolute Auto 0.1 K/mm3 (0.0-0.1); Basophils Percent Auto 1.1 % (0.2-1.2); Eosinophils Absolute Auto 0.1 K/mm3 (0-0.3); Eosinophils Percent Auto 2.4 % (0-4.4); Hematocrit 38.3 % (37.0-47.0); Hemoglobin 12.7 g/dL (12.0-15.0); Immature Granulocyte Absolute 0.01 K/mm3 (0.00-0.031); Immature Granulocyte Percent A 0.2 % (0-0.5); Lymphocytes Absolute Auto 0.93 K/mm3 (0.9-3.2); Lymphocytes Percent Auto 20.7 % (18.3-44.2); Mean Corpuscular HGB Conc 33.2 g/dl (32-36); Mean Corpuscular Hemoglobin 31.1 pg (26-34); Mean Corpuscular Volume 93.6 fl (80-100); Mean Platelet Volume 9.3 fl (7.4-10.4); Monocytes Absolute Auto 0.4 K/mm3 (0.1-0.6); Monocytes Percent Auto 8.2 % (2.6-8.5); Neutrophils Percent Auto 67.4 % (45.5-73.1); Platelet Count Result 242 k/mm3 (150-375); Red Blood Count 4.09 M/mm3 (4.2-5.4); Red Cell Distribution Width 13.5 % (11.5-14.5); White Blood Count 4.5 K/mm3 (4.5-10.0)
[2024-12-17 12:20] LABS: Alanine Aminotransferase 40 U/L (6-35); Albumin Level 4.1 g/dL (3.5-5.1); Alkaline Phosphatase 112 U/L (38-126); Anion Gap 11 mmol/L (4-12); Aspartate Amino Transferase 27 U/L (14-36); Bilirubin,Total 0.4 mg/dL (0.2-1.3); Blood Urea Nitrogen 16 mg/dL (7-17); Calcium 8.9 mg/dL (8.4-10.2); Carbon Dioxide 25 mmol/L (22-30); Chloride 101 mmol/L (98-107); Estimated CRCL calculation 61 ml/min; Estimated Glomerular Filt Rate > 60; Glucose 119 mg/dL (65-110); Potassium 4.4 mmol/L (3.4-5.0); Sodium 137 mmol/L (137-145)
--- OUTSIDE RECORDS SUMMARY | 2024-12-17 12:38 | XMS_ITS | Encounter Summary ---
Author Organization [facility] Address [address] [facility] [address] [place] [address] Care Team Providers Care Aluminum Siding Mechanic Name Role Phone Kerry Coffman Primary Care Provider [phone] Reason for Visit * Reason Onset Date Comments Appointment 10/20/2024 Encounter Details Date Type Department Care Team (Late st Contact Info) Description 10/20/2024 Telephone [facility] - Centralized Scheduling [address] [place] [phone] Moncho Salcedo, GRAPE CRUSHER-EXTRUSION PRESS ADJUSTER [address] [address] Appointment Social History Tobacco Use [...] Sex Assigned at Female 09/16/2024 2:41 PM COMMERCIAL LITIGATION ASSOCIATE Gender Identity Female 09/16/2024 2:41 PM COMMERCIAL LITIGATION ASSOCIATE Sexual Orientation Straight 09/16/2024 2: 41 PM COMMERCIAL LITIGATION ASSOCIATE documented as of this encounter Functional Status [...] to schedule for a Short Procedure with ASSISTANT HALL DIRECTOR Settu in November. ERCIAL LITIGATION ASSOCIATE documented in this encounter Plan of Treatment Upcoming Encounters Date Type Department Care Team (Late st Contact Info) Description 01/04/2025 9:15 AM CDT Office Visit [facility] - Orthopedics [address] [place] [phone] Cornelio Lima MD [address] [place] [address] 01/25/2025 10:30 AM CDT Office Visit [facility] - GI [address] [place] [address] [place] [phone] Yolanda Greer, GRAPE CRUSHER-EXTRUSION PRESS ADJUSTER [address] [place] [phone] 02/09/2025 11:15 AM CDT Office Visit [facility] - Ophthalmology [address] [place] [address] [place] [phone] Percy Matute MD [address] [place] [address] [place] [phone] 02/09/2025 4:00 PM CDT Office Visit [facility] - Allergy [address] [place] [address] [place] [address] Papito Morales MD [address] [place] [address] DIV OF ALLERGY/[place] [address] 03/02/2025 1:00 PM CDT Office Visit [facility] - Neurology [address] [place] [address], [place] [address] NathalieepifanioMoncho, GRAPE CRUSHER-EXTRUSION PRESS ADJUSTER [address] [place] [address] [address] [place] [address] 03/20/2025 11:00 AM CDT Office Visit [facility] - Internal Med [address] [place] [address], [place] [address] Kerry Coffman DO [address] [place] [address] [address] DIV OF [facility] [place] [address] 04/13/2025 3:00 PM CDT Office Visit [facility] - Allergy [address] [place] [phone] Papito Morales MD [address] [place] [address] [address] DIV OF ALLERGY/[place] [address] documented as of this encounter Goals Goal Patient Goal Type Associated Problems Recent Progress Patient-Stated? Author Medication Management General On track( 025 10:42 AM COMMERCIAL LITIGATION ASSOCIATE) Marion Scott, RN Note: Expected end date: ongoing Interventions: Take all medications as prescribed documented as of this encounter Visit Diagnoses Not on filedocumented in this encounter Additional Health Concerns Infection Onset Date Last Indicated Resolved Time CDIFF Under Investigation 10/26/2024 11/07/2024 4:33 AM COMMERCIAL LITIGATION ASSOCIATE CDIFF Under Investigation 11/07/2024 11/07/2024 5:38 PM COMMERCIAL LITIGATION ASSOCIATE documented as of this encounter Care Teams Aluminum Siding Mechanic Relationship Specialty Start Date End Date Kerry Coffman DO [address] [place] [address] 2[address] DIV OF [facility] [place] [address] PCP - General Internal Medicine 12/15/23 documented as of this encounter
--- OUTSIDE RECORDS SUMMARY | 2024-12-17 12:38 | XMS_ITS | Referral Summary ---
Author Organization [facility] Address [address] [place] [address] Care Team Providers Care Engineer Operations And Maintenance Name Role Phone Kerry Coffman DO Primary Care Provider [phone] Source Comments [facility],non-owned Affiliates and Associated Physician Practices is amultiple site organization consisting of ambulatory clinics and hospital sitesin [place], [place], [place] and [place]. This disclosure is being madepursuant to the Care Everywhere program and may not contain all information available regarding this patient. Last updated 18.[facility] [employer] Encounters Date Type Department Care Team Description 12/13/2024 Orders Only [facility] - Neurology [address] [place] [address] Moncho Salcedo APRN-YIELD ENGINEER Cognitive decline 12/08/2024 Travel 12/08/2024 7:08 AM MEDIA SPECIALIST - 12/08/2024 9:16 AM MEDIA SPECIALIST Hospital Encounter [facility] DIAGNOSTIC RAD [address] [place] [address] Cornelio Lima MD Discharge Disposition: Home or Self Care 12/08/2024 9:17 AM MEDIA SPECIALIST - 12/08/2024 11:59 PM MEDIA SPECIALIST Hospital Encounter [facility] CAT SCAN [address] [place] [address] Cornelio Lima MD Discharge Disposition: Home or Self Care 12/08/2024 9:17 AM MEDIA SPECIALIST - 12/08/2024 11:59 PM MEDIA SPECIALIST Hospital Encounter [facility] CAT SCAN [address] [place] [address] Cornelio Lima MD Discharge Disposition: Home or Self Care 11/28/2024 Telephone [facility] - Neurology [address] [place] [phone] Moncho Salcedo APRN-YIELD ENGINEER Medication Prior Auth Request (Emgality) 11/23/2024 10:58 AM MEDIA SPECIALIST - 11/23/2024 11:59 PM MEDIA SPECIALIST Hospital Encounter [facility] [address] [address] [place] [address] Cornelio Lima MD Discharge Disposition: Home or Self Care 11/23/2024 10:58 AM MEDIA SPECIALIST - 11/23/2024 11:59 PM MEDIA SPECIALIST Hospital Encounter [facility] RAD [address] [address] [place] [address] Cornelio Lima MD Discharge Disposition: Home or Self Care 11/23/2024 9:49 AM MEDIA SPECIALIST - 11/23/2024 10:57 AM MEDIA SPECIALIST Hospital Encounter [facility] [address] [place] [address] Cornelio Lima MD Discharge Disposition: Home or Self Care 11/23/2024 Travel 11/23/2024 10:00 AM MEDIA SPECIALIST Office Visit [facility] - Orthopedics [address] [place] [phone] Cornelio Lima MD Lumbar spine pain (Primary Dx); Lumbar spondylosis; Spondylolisthesis of lumbar region; Degenerative scoliosis in adult patient; Cervical spondylosis with myelopathy; Cervicalgia 11/14/2024 Telephone [facility] - Neurology [address] [place] [phone] Moncho Salcedo APRN-YIELD ENGINEER Medication Clarification (Emgaltiy) 11/11/2024 Travel 11/11/2024 10:00 AM MEDIA SPECIALIST Anesthesia Event [facility] [address] [place] [phone] Doug Forrester MD Dobbs, Kristin L, INTERNET SALES DIRECTOR-GIANNI 11/11/2024 10:15 AM MEDIA SPECIALIST - 11/11/2024 11:00 AM MEDIA SPECIALIST Surgery [facility] ENDOSCOPY [address] [place] [address] Sixto Cornell MD COLONOSCOPY SCREEN--extended prep 11/11/2024 8:14 AM MEDIA SPECIALIST - 11/11/2024 11:24 AM MEDIA SPECIALIST Hospital Encounter [facility] [address] [place] [address] Sixto Cornell MD Surgery General Discharge Disposition: Home or Self Care 11/04/2024 Patient Outreach [facility] ENDOSCOPY [address] [place] [address] Samantha Monterroso RN 11/02/2024 Travel 11/02/2024 3:30 PM MEDIA SPECIALIST Office Visit [facility] - Neurology [address] [place] [phone] Moncho Salcedo APRN-CNP Intractable 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 (Primary Dx) 10/26/2024 Travel 10/26/2024 10:30 AM MEDIA SPECIALIST Office Visit [facility] - GI [address] [place] [phone] Yolanda Greer APRN-CNP Chronic diarrhea (Primary Dx) 10/25/2024 Orders Only [facility] ENDOSCOPY [address] [place] [address] Wendy Humphrey RN 10/24/2024 Travel 10/20/2024 Telephone [facility] - Centralized Scheduling [address] [place] [address] Moncho Salcedo APRN-CNP Appointment 10/06/2024 Orders Only [facility] OP [address] [place] [address] Alok Christie III, MD Spondylolisthesis at L4-L5 level 09/27/2024 Travel 09/27/2024 Telephone [facility] - Neurology [address] [place] [phone] Rissa Vo MD Med Question 09/19/2024 9:05 AM MEDIA SPECIALIST - 09/19/2024 11:59 PM MEDIA SPECIALIST Hospital Encounter [facility] DI[facility] RAD OP [address] [place] [address] Kerry Coffman DO Discharge Disposition: Home or Self Care 09/19/2024 Travel 09/19/2024 8:00 AM MEDIA SPECIALIST Office Visit [facility] - Internal Med [address] [place] [address] Kerry Coffman DO Routine general medical examination at health care facility (Primary Dx); Acute bilateral low back pain without sciatica; Acute pain of left knee; Type 2 diabetes mellitus with hyperglycemia, without long-term current use of insulin ([facility]); Chronic diarrhea; Migraine without aura and without status migrainosus, not intractable; Benign essential tremor; Bipolar affective disorder, remission status unspecified ([facility]); Rheumatoid arthritis with negative rheumatoid factor, involving unspecified site ([facility]) from Last 3 Months Allergies Active Allergy [...] tabletIndications: Bipolar affective disorder, remission status unspecified ([facility]) Take 1 (one) tablet by mouth 2 [...] route every 30 days Active blood glucose (Zoeticxuch Ultra) test stripIndications:T ype 2 diabetes mellitus with hyperglycemia, without long-term current use of insulin ([facility]) USE 1 STRIP TO CHECK GLUCOSE TWICE [...] rhinitis, unspecified seasonality, unspecified trigger,Chronic daily headache [place] 2 (two) sprays into each nostril once daily 16 g 6 08/11/2024 Active azelastine (Astelin) 0.1 % nasal sprayIndications:C hronic rhinitis,Allergic rhinitis, unspecified seasonality, unspecified trigger,Chronic daily headache [place] 1 (one) spray into each nostril 2 [...] Sex Assigned at Female 09/16/2024 2:41 PM MEDIA SPECIALIST Gender Identity Female 09/16/2024 2:41 PM MEDIA SPECIALIST Sexual Orientation Straight 09/16/2024 2: 41 PM MEDIA SPECIALIST Last Filed Vital Signs Vital Sign Reading Time Taken Comments Blood Pressure 114/82 12/08/2024 12:30 PM MEDIA SPECIALIST Pulse 59 12/08/2024 12:30 PM MEDIA SPECIALIST Temperature 36.6 C (97.8 F) 12/08/2024 10:30 AM MEDIA SPECIALIST Respiratory Rate 14 12/08/2024 12:30 PM MEDIA SPECIALIST Oxygen Saturation 96% 12/08/2024 12:30 PM MEDIA SPECIALIST Inhaled Oxygen Concentration - - Weight 66.9 kg (147 lb 8 oz) 12/08/2024 8:01 AM MEDIA SPECIALIST Height 167.6 cm (5' 6 ) 12/08/2024 8:01 AM MEDIA SPECIALIST Body Mass Index 23.81 12/08/2024 8:01 AM MEDIA SPECIALIST Functional Status Functional Status Response Date of [...] Description 01/04/2025 9:15 AM CDT Office Visit [facility] - Orthopedics [address] [place] [phone] Cornelio Lima MD [address] [place] [address] 01/25/2025 10:30 AM CDT Office Visit [facility] GI [address] [place] [phone] Yolanda Greer, INTERNET SALES DIRECTOR-YIELD ENGINEER [address] [place] [phone] 02/09/2025 11:15 AM CDT Office Visit [facility] - Ophthalmology [address] [place] [phone] Percy Matute MD [address] [place] [address] [place] [address] 02/09/2025 4:00 PM CDT Office Visit [facility] - Allergy [address] [place] [phone] Papito Morales MD [address] [place] [address] 2L DIV OF ALLERGY/[place] [address] 03/02/2025 1:00 PM CDT Office Visit [facility] - Neurology [address] [place] [address], [place] [phone] Moncho Salcedo APRN-ARELY [address] [place] [address] [address] [place] [phone] 03/20/2025 11:00 AM CDT Office Visit [facility] - Internal Med [address] [place] [phone] Kerry Coffman DO [address] [place] [address] 2[address] DIV [place] [address] 04/13/2025 3:00 PM CDT Office Visit [facility] - Allergy [address] [place] [phone] Papito Morales MD [address] [place] [address] 2[address] DIV OF ALLERGY/[place] [address] Goals Goal Patient Goal Type Associated Problems Recent Progress Patient-Stated? Author Medication Management General On track( 025 10:42 AM MEDIA SPECIALIST) Marion Scott, RN Note: Expected end date: ongoing Interventions: Take all medications as prescribed Medical Devices Implanted Type Area Catechist Device Identifier Shelf Expiration Date Model / Serial / Lot Slnt Dura Duraseal Pg Trilysine Amine 5 Implanted:Qty: 1 on 03/17/2022 by Jackelyn Yang MD at [facility] Left: Cranial Integra [employer] Michael 08/11/2023 [id number] / / [id number] Guardian Branial Yuriy Hole Cover Sys Implanted:Qty: 1 on 03/17/2022 by Jackelyn Yang MD at [facility] Left: Cranial Stion 01/01/2024 6010 / / [id number] Directional Lead Implanted:Qty: 1 on 03/17/2022 by Shailesh North MD at [facility] Left: Cranial [employer] 09/25/2023 6172 / [id number] / Lead Extension Implanted:Qty: 1 on 03/24/2022 by Shailesh North MD at [facility] Left: Neck Stion 01/15/2024 [id number] / / [id number] Generator Implanted:Qty: 1 on 03/24/2022 by Shailesh North MD at [facility] Left: Chest [employer] 11/19/2023 6662 / / [id number] [place] Spnl 140mm 6.35mm Ti Str Implanted:Qty: 1 on 08/29/2022 by Shailesh North MD at [facility] Right: Scalp [employer] 04/02/2024 6010 / / [employer] Dbs System Implanted:Qty: 1 on 08/29/2022 by Joshua Gill MD at [facility] Right: Brain 03/19/2024 6172 / [id number] / Description:cost per Levar [employer] Inf[employer] Dbs System Implanted:Qty: 1 on 08/29/2022 by Joshua Gill MD at [facility] Right: Chest Wall 04/23/2024 6373 / [id number] / Description:cost per levar Procedures Procedure Name Priority Date/Time Associated Diagnosis Comments FL MYELOGRAM 2 OR MORE REGIONS Routine 12/08/2024 10:27 AM MEDIA SPECIALIST Lumbar spine pain CT LUMBAR POST MYELOGRAM Routine 12/08/2024 10:25 AM MEDIA SPECIALIST Lumbar spine pain CT CERVICAL POST MYELOGRAM Routine 12/08/2024 10:25 AM MEDIA SPECIALIST Lumbar spine pain XR SPINE ENTIRE 2 OR 3VW Routine 11/23/2024 11:09 AM MEDIA SPECIALIST Lumbar spine pain XR CERVICAL SPINE 2 OR 3VW Routine 11/23/2024 11:06 AM MEDIA SPECIALIST Lumbar spine pain XR LUMBAR SPINE 2 OR 3VW Routine 11/23/2024 10:00 AM MEDIA SPECIALIST Lumbar spine pain PATHOLOGY TISSUE Routine 11/11/2024 10:1 6 AM MEDIA SPECIALIST Screen for colon cancer NH COLOREC CANC SCRN,SCOPY NOT HI RISK 11/11/2024 9:55 AM MEDIA SPECIALIST Screen for colon cancer ENDOSCOPY, COLON, SCREENING Routine 11/11/2024 9:52 AM MEDIA SPECIALIST GLUCOSE - POINT OF CARE Routine 11/11/2024 9:19 AM MEDIA SPECIALIST CALPROTECTIN FECAL Routine 11/07/2024 3: 52 PM MEDIA SPECIALIST Chronic diarrhea CULTURE STOOL PANEL Routine 11/07/2024 3 :52 PM MEDIA SPECIALIST Chronic diarrhea C DIFFICILE CYTOTOXIN Routine 11/07/2024 3:51 PM MEDIA SPECIALIST Chronic diarrhea PROC DEEP BRAIN STIMULATOR Routine 11/03/2024 2:08 PM MEDIA SPECIALIST Intractable 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 XR LUMBAR SPINE 4VW OR MORE Routine 09/19/2024 9:18 AM MEDIA SPECIALIST Acute bilateral low back pain without sciatica XR KNEE LEFT 4VW OR MORE Routine 09/19/2024 9:18 AM MEDIA SPECIALIST Acute pain of left knee COMPREHENSIVE METABOLIC [...] 2 or More Regions (12/08/2024 10:27 AM MEDIA SPECIALIST) Anatomical Region Laterality Modality Spine Digital Radiogra phy 12/08/2024 1:17 PM MEDIA SPECIALIST Impressions 12/13/2024 12:15 PM MEDIA SPECIALIST IMPRESSION: 1.Successful lumbar puncture for cervical and [...] degenerative disc and joint disease as detailed omiie-iv-syttw above, worse at L4-L5, as outlined. 2.Transitional anatomy as noted above. The report is dictated by Addi Arambula MD, (cath lab radiology technician) Attending Physician: Dr. Magdalena Blackmon Medical Detailist: Dr. Addi Arambula MD, (cath lab radiology technician) The procedure was performed by the: The assistant manager, and the attending radiologist was present for [...] 12/13/2024 12:15 PM Narrative 12/13/2024 12:15 PM MEDIA SPECIALIST PROCEDURE: FL MYELOGRAM 2 OR MORE REGIONS, CT LUMBAR POST MYELOGRAM, CT CERVICAL POST MYELOGRAM DATE/TIME OF EXAM: 12/08/2024 10:34 AM CLINICAL INFORMATION: PROCEDURE: FL MYELOGRAM 2 OR MORE REGIONS, CT LUMBAR POST MYELOGRAM, CT CERVICAL POST MYELOGRAM, DATE/TIME OF EXAM: 12/08/2024 10:34 AM, LOCATION [facility] INDICATION: M54.50: Lumbar spine pain ADDITIONAL CLINICAL INFORMATION: Ordering Provider Reason For Exam: myelopathy (accession [id number]), chronic low back pain (accession [id number]) Technologist Note: None. Additional: None. EXAMINATION: 1.Lumbar [...] The patient was then transferred to the personal care assistant unit for further observation and 2 hours [...] no high-grade central canal stenosis. There is smgi-rp-ohjwsucz facet osteoarthritis. There is mild bilateral neural foraminal stenosis. Procedure Note Magdalena Blackmon MD - 12/13/2024 PROCEDURE: FL MYELOGRAM 2 OR MORE REGIONS, CT LUMBAR POST MYELOGRAM, CT CERVICAL POST MYELOGRAM DATE/TIME OF EXAM: 12/08/2024 10:34 AM CLINICAL INFORMATION: PROCEDURE: FL MYELOGRAM 2 OR MORE REGIONS, CTLUMBAR POST MYELOGRAM, CT CERVICAL POST MYELOGRAM, DATE/TIME OF EXAM:12/08/2024 10:34 AM, LOCATION [facility] INDICATION: M54.50: Lumbar spine pain ADDITIONAL CLINICAL INFORMATION: Ordering Provider Reason For Exam: myelopathy (accession [id number]), chronic low back pain (accession [id number]) Technologist Note: None. Additional: None. EXAMINATION: 1.Lumbar [...] well. The patient wasthen transferred to the personal care assistant unit for further observation and 2hours of [...] island in the right aspect of the L0nvzsjonxz body. Vertebral bodies are normal in height [...] is no high-grade central canal stenosis. Thereis fytd-kz-kuioahnf facet osteoarthritis. There is mild bilateral neural [...] 1.Multilevel degenerative disc and joint disease as ywknptfqvbxhu-ad-gghoo above, worse at L4-L5, as outlined. 2.Transitional anatomy as noted above. The report is dictated by Addi Arambula MD, (cath lab radiology technician) Attending Physician: Dr. Magdalena Blackmon Medical Detailist: Dr. Addi Arambula MD, (cath lab radiology technician) The procedure was performed by the: The assistant manager, and the attending radiologist was present for allcritical and mariscal portions of the procedure, and was immediately [facility] during the entire procedure. The attending radiologist performed the following procedural activities: IDr. Magdalena was there and supervised mariscal portions of the procedure, not scrubbed. IMagdalena MD have personally reviewed and interpretedthis examination/study. > Interpreting Provider: Magdalena Blackmon MD on 12/13/2024 12:15 PM Cornelio Lima MD FLUOROSCOPY OR DERABLES * CT Lumbar Post Myelogram (12/08/2024 10:25 AM MEDIA SPECIALIST) Anatomical Region Laterality Modality Spine Computed Tomogra phy 12/08/2024 1:17 PM MEDIA SPECIALIST Impressions 12/13/2024 12:15 PM MEDIA SPECIALIST IMPRESSION: 1.Successful lumbar puncture for cervical and [...] degenerative disc and joint disease as detailed vszmc-ku-oauoz above, worse at L4-L5, as outlined. 2.Transitional anatomy as noted above. The report is dictated by Addi Arambula MD, (cath lab radiology technician) Attending Physician: Dr. Magdalena Blackmon Medical Detailist: Dr. Addi Arambula MD, (cath lab radiology technician) The procedure was performed by the: The assistant manager, and the attending radiologist was present for all critical and mariscal portions of the procedure, and was immediately available to furnish services during the entire procedure. The attending radiologist performed the following procedural activities: Dr. Magdalena Gutierrez was there and supervised mariscal portions of the procedure, not scrubbed. Magdalena Gutierrez MD have personally reviewed and interpreted this examination/study. > Interpreting Provider: Magdaelna Blackmon MD on 12/13/2024 12:15 PM Narrative 12/13/2024 12:15 PM MEDIA SPECIALIST PROCEDURE: FL MYELOGRAM 2 OR MORE REGIONS, CT LUMBAR POST MYELOGRAM, CT CERVICAL POST MYELOGRAM DATE/TIME OF EXAM: 12/08/2024 10:34 AM CLINICAL INFORMATION: PROCEDURE: FL MYELOGRAM 2 OR MORE REGIONS, CT LUMBAR POST MYELOGRAM, CT CERVICAL POST MYELOGRAM, DATE/TIME OF EXAM: 12/08/2024 10:34 AM, LOCATION [facility] INDICATION: M54.50: Lumbar spine pain ADDITIONAL CLINICAL INFORMATION: Ordering Provider Reason For Exam: myelopathy (accession [id number]), chronic low back pain (accession [id number]) Technologist Note: None. Additional: None. EXAMINATION: 1.Lumbar [...] The patient was then transferred to the personal care assistant unit for further observation and 2 hours [...] no high-grade central canal stenosis. There is djbk-hk-osfhiuoo facet osteoarthritis. There is mild bilateral neural foraminal stenosis. Procedure Note Magdalena Blackmon MD - 12/13/2024 PROCEDURE: FL MYELOGRAM 2 OR MORE REGIONS, CT LUMBAR POST MYELOGRAM, CT CERVICAL POST MYELOGRAM DATE/TIME OF EXAM: 12/08/2024 10:34 AM CLINICAL INFORMATION: PROCEDURE: FL MYELOGRAM 2 OR MORE REGIONS, CTLUMBAR POST MYELOGRAM, CT CERVICAL POST MYELOGRAM, DATE/TIME OF EXAM:12/08/2024 10:34 AM, LOCATION [facility] INDICATION: M54.50: Lumbar spine pain ADDITIONAL CLINICAL INFORMATION: Ordering Provider Reason For Exam: myelopathy (accession [id number]), chronic low back pain (accession [id number]) Technologist Note: None. Additional: None. EXAMINATION: 1.Lumbar [...] well. The patient wasthen transferred to the personal care assistant unit for further observation and 2hours of [...] island in the right aspect of the P1xrqaixfke body. Vertebral bodies are normal in height [...] is no high-grade central canal stenosis. Thereis rigp-ta-gdsoovba facet osteoarthritis. There is mild bilateral neural [...] 1.Multilevel degenerative disc and joint disease as lydchjwrkugwd-sb-taysk above, worse at L4-L5, as outlined. 2.Transitional anatomy as noted above. The report is dictated by Addi Aarmbula MD, (cath lab radiology technician) Attending Physician: Dr. Magdalena Blackmon Medical Detailist: Dr. Addi Arambula MD, (cath lab radiology technician) The procedure was performed by the: The assistant manager, and the attending radiologist was present for [...] CT Cervical Post Myelogram (12/08/2024 10:25 AM MEDIA SPECIALIST) Anatomical Region Laterality Modality Spine Computed Tomogra phy 12/08/2024 1:17 PM MEDIA SPECIALIST Impressions 12/13/2024 12:15 PM MEDIA SPECIALIST IMPRESSION: 1.Successful lumbar puncture for cervical and [...] degenerative disc and joint disease as detailed pxrsm-hl-caijj above, worse at L4-L5, as outlined. 2.Transitional anatomy as noted above. The report is dictated by Addi Arambula MD, (cath lab radiology technician) Attending Physician: Dr. Magdalena Blackmon Medical Detailist: Dr. Addi Arambula MD, (cath lab radiology technician) The procedure was performed by the: The assistant manager, and the attending radiologist was present for [...] 12/13/2024 12:15 PM Narrative 12/13/2024 12:15 PM MEDIA SPECIALIST PROCEDURE: FL MYELOGRAM 2 OR MORE REGIONS, CT LUMBAR POST MYELOGRAM, CT CERVICAL POST MYELOGRAM DATE/TIME OF EXAM: 12/08/2024 10:34 AM CLINICAL INFORMATION: PROCEDURE: FL MYELOGRAM 2 OR MORE REGIONS, CT LUMBAR POST MYELOGRAM, CT CERVICAL POST MYELOGRAM, DATE/TIME OF EXAM: 12/08/2024 10:34 AM, LOCATION [facility] INDICATION: M54.50: Lumbar spine pain ADDITIONAL CLINICAL INFORMATION: Ordering Provider Reason For Exam: myelopathy (accession [id number]), chronic low back pain (accession [id number]) Technologist Note: None. Additional: None. EXAMINATION: 1.Lumbar [...] The patient was then transferred to the personal care assistant unit for further observation and 2 hours [...] no high-grade central canal stenosis. There is bulz-zz-kbqprate facet osteoarthritis. There is mild bilateral neural foraminal stenosis. Procedure Note Magdalena Blackmon MD - 12/13/2024 PROCEDURE: FL MYELOGRAM 2 OR MORE REGIONS, CT LUMBAR POST MYELOGRAM, CT CERVICAL POST MYELOGRAM DATE/TIME OF EXAM: 12/08/2024 10:34 AM CLINICAL INFORMATION: PROCEDURE: FL MYELOGRAM 2 OR MORE REGIONS, CTLUMBAR POST MYELOGRAM, CT CERVICAL POST MYELOGRAM, DATE/TIME OF EXAM:12/08/2024 10:34 AM, LOCATION [facility] INDICATION: M54.50: Lumbar spine pain ADDITIONAL CLINICAL INFORMATION: Ordering Provider Reason For Exam: myelopathy (accession [id number]), chronic low back pain (accession [id number]) Technologist Note: None. Additional: None. EXAMINATION: 1.Lumbar [...] well. The patient wasthen transferred to the personal care assistant unit for further observation and 2hours of [...] island in the right aspect of the P6mnkageljb body. Vertebral bodies are normal in height [...] is no high-grade central canal stenosis. Thereis rnqw-xg-rxalzghf facet osteoarthritis. There is mild bilateral neural [...] 1.Multilevel degenerative disc and joint disease as opritigeztxyt-sl-pjqdy above, worse at L4-L5, as outlined. 2.Transitional anatomy as noted above. The report is dictated by Addi Arambula MD, (cath lab radiology technician) Attending Physician: Dr. Magdalena Blackmon Medical Detailist: Dr. Addi Arambula MD, (cath lab radiology technician) The procedure was performed by the: The assistant manager, and the attending radiologist was present for allcritical and mariscal portions of the procedure, and was immediately available [facility] during the entire procedure. The attending radiologist performed the following procedural activities: IDr. Magdalena was there and supervised mraiscal portions of the procedure, not scrubbed. IMagdalena MD have personally reviewed and interpretedthis examination/study. > Interpreting Provider: Magdalena Blackmon MD on 12/13/2024 12:15 PM Cornelio Lima MD CT ORDERABLES * XR Spine Entire 2 or 3Vw (11/23/2024 11:09 AM MEDIA SPECIALIST) Anatomical Region Laterality Modality Spine Radiographic Erna ging 11/23/2024 11:3 1 AM MEDIA SPECIALIST Impressions 11/23/2024 11:34 AM MEDIA SPECIALIST IMPRESSION: Mild scoliosis. > Interpreting Provider: Baljinder Henson MD on 11/23/2024 11:34 AM Narrative 11/23/2024 11:34 AM MEDIA SPECIALIST PROCEDURE: XR SPINE ENTIRE 2 OR 3VW [...] 10 degrees, a lower thoracic levo curve gnpwricnh14 degrees, and a lumbar dextro curve measuring [...] Spine 2 or 3Vw (11/23/2024 11:06 AM MEDIA SPECIALIST) Anatomical Region Laterality Modality Spine Radiographic Erna ging 11/23/2024 11:2 9 AM MEDIA SPECIALIST Impressions 11/23/2024 11:31 AM MEDIA SPECIALIST IMPRESSION: Moderate cervical spondylosis. > Interpreting Provider: Baljinder Henson MD on 11/23/2024 11:31 AM Narrative 11/23/2024 11:31 AM MEDIA SPECIALIST PROCEDURE: XR CERVICAL SPINE 2 OR 3VW [...] Spine 2 or 3Vw (11/23/2024 10:00 AM MEDIA SPECIALIST) Anatomical Region Laterality Modality Spine Computed Radiogr aphy 11/23/2024 10:3 8 AM MEDIA SPECIALIST Impressions 11/23/2024 10:39 AM MEDIA SPECIALIST IMPRESSION: Mild to moderate degenerative changes. > Interpreting Provider: Baljinder Henson MD on 11/23/2024 10:39 AM Narrative 11/23/2024 10:39 AM MEDIA SPECIALIST PROCEDURE: XR LUMBAR SPINE 2 OR 3VW [...] ORDERABLES * PATHOLOGY TISSUE (11/11/2024 10:16 AM MEDIA SPECIALIST) Case Report Surgical Pathology Report Case: [id number] Authorizing Provider: Sixto Cornell MD Collected: 11/11/2024 10:16 AM Ordering Location: [facility] Received: 11/11/2024 10:58 AM Pathologist: Kenyatta Norris MD Specimens: A) - Polyp Ascending, ascending colon polyp B) - Polyp Descending, descending colon polyps 11/14/2024 3:20 PM MEDIA SPECIALIST [facility] Final Diagnosis Large intestine, ascending colon polyp, biopsy (A): - Tubular adenoma Large intestine, descending colon polyps, biopsy (B): - Tubular adenoma(s), fragmented 11/14/2024 3:20 PM MEDIA SPECIALIST [facility] Microscopic Description and Comment Microscopic examination substantiates the final diagnosis. 11/14/2024 3:20 PM MEDIA SPECIALIST [facility] Clinical History The patient is a 69-year-old woman who presents for high risk colon cancer surveillance (personal history of colonic polyps). Operative procedure/findings: Colonoscopy - 2 mm ascending colon polyp, 4 and 5 mm descending colon polyps, resected and retrieved 11/14/2024 3:20 PM [facility] Gross Description The requisition and [...] cassette labeled B1. RB 11/14/2024 3:20 PM [facility] Pathologist Location at [facility] 11/14/2024 3:20 PM [facility] Disclaimer The performance characteristics of all immunohistochemical and indirect immunofluorescence stains (if any) cited in this report were determined by the Histopathology Laboratory of [facility]. Some of these tests were developed by [...] the attending (teaching) pathologist. 11/14/2024 3:20 PM [facility] Embedded Images 11/14/2024 3:20 PM [facility] Biopsy, NOS POLYP / Unknown 11/11/2024 1 0:16 AM MEDIA SPECIALIST 11/11/2024 10:58 AM MEDIA SPECIALIST Comment:Pre-op diagnosis: Screen for colon cancer [Z12.11] Biopsy, NOS POLYP / Unknown 11/11/2024 1 0:19 AM MEDIA SPECIALIST 11/11/2024 10:58 AM MEDIA SPECIALIST Comment:Pre-op diagnosis: Screen for colon cancer [Z12.11] Sixto Cornell MD LAB - PATHOLOGY/CYTO LOGY ORDERABLES [facility] [address] [place] [address], [facility] [phone] * ENDOSCOPY, COLON, SCREENING (11/11/2024 9:52 AM MEDIA SPECIALIST) Report Endoscopy POC Endoscopy Department Report _ [...] bowel preparation was evaluated using the BBPS (Mcgehee Bowel Preparation Scale) with scores of: Right [...] non-mariscal portions. Procedure Code(s): --- Professional --- 95754, Colonoscopy, flexible; with removal of tumor(s), polyp(s), or other lesion(s) by snare technique 15101, 59, Colonoscopy, flexible; with biopsy, single or multiple Diagnosis Code(s): --- Professional --- Z86.010, Personal history of colonic polyps D12.2, Benign neoplasm of ascending colon D12.4, Benign neoplasm of descending colon K57.30, Diverticulosis of large intestine without perforation or abscess without bleeding CPT copyright 2021 [employer]. All rights reserved. The codes documented in this report are preliminary and upon oracle software engineer review may be revised to meet current compliance requirements. Sixto Cornell MD 11/11/2024 10:36:45 AM This report has been signed electronically. Note Initiated On: 11/11/2024 9:52 AM Number of Addenda: [address] [address] [facility] 11/11/2024 9:52 AM MEDIA SPECIALIST Sixto Cornell MD [facility] PROCEDURE [facility] * GLUCOSE - POINT OF CARE (11/11/2024 9:19 AM MEDIA SPECIALIST) Pathologist [facility] [place] Glucose WB/POC 99 70 - 99 mg/dL 11/11/2024 9:54 AM MEDIA SPECIALIST [facility] Specimen Type Venous 11/11/2024 9:54 AM MEDIA SPECIALIST [facility] Blood BLOOD SPECIMEN / Unknown 11/11/2024 9:19 AM MEDIA SPECIALIST 11/11/2024 9:54 AM MEDIA SPECIALIST Sixto Cornell MD LAB - POINT OF CARE ORDERABLES Performing Organization Address [facility]/ZIP Co de Phone Number [address] [address], [facility] [phone] * CALPROTECTIN FECAL (11/07/2024 3:52 PM MEDIA SPECIALIST) Calprotectin Fecal 69 mcg/g [facility] Comment: Reference [...] suggested for borderline values. Test Performed at: [facility] [address] [place] [address] JARRELL CALDERON MD,PHD,EDGARDO Stool STOOL SPECIMEN / Unknown 11/07/2024 3:52 PM MEDIA SPECIALIST 11/08/2024 4:47 AM MEDIA SPECIALIST Yolanda Greer APRN-ARELY LAB - CRISTINA DY FLUID ORDERABLES Performing Organization Address [facility] [place] [address] * CULTURE STOOL PANEL (11/07/2024 3:52 PM MEDIA SPECIALIST) Campylobacter Antigen [facility] Comment: CAMPYLOBACTER SPP. AG,EIA Micro Number: [id number] Test Status: Final Specimen Source: Stool Specimen Quality: Adequate Campy Ag Result: Not Detected Reference Range: Not Detected EIA [facility] Comment: SHIGA TOXINS, EIA W/RFL TO E.COLI O157 CULTURE Micro Number: [id number] Test Status: Final Specimen Source: Stool Specimen Quality: Adequate Shiga Toxin: Not Detected Reference Range: Not Detected Culture [facility] Comment: SALMONELLA AND SHIGELLA, CULTURE Micro Number: [id number] Test Status: Final Specimen Source: Stool Specimen Quality: Adequate Result: No Salmonella or Shigella isolated Test Performed at: [facility] [address] SAROJ FAUSTIN MD Stool STOOL SPECIMEN / Unknown 11/07/2024 3:52 PM MEDIA SPECIALIST 11/07/2024 11:51 PM MEDIA SPECIALIST Yolanda MUHAMMAD LAB - [place] CROBIOLOGY ORDERABLES Performing Organization Address [facility] de Phone Number [address] [address] * C DIFFICILE CYTOTOXIN (11/07/2024 3:51 PM MEDIA SPECIALIST) Cytotoxin Assay Stool NOT DETECTED [facility] Comment: [...] (GDH) with Reflex to PCR, order code 24820 or Clostridium difficile toxin B, Qualitative real time PCR, test code 83199 to be more sensitive and timely methods for the diagnosis of C. difficile colitis. For additional information, please refer to http://education.[employer]/faq/NSL311 (This link is being provided for informational/ educational purposes only.) Test Performed at: [facility] [address] [place] [address] JARRELL CALDERON MD,PHD,EDGARDO Stool STOOL SPECIMEN / Unknown 11/07/2024 3:51 PM MEDIA SPECIALIST 11/08/2024 4:58 AM MEDIA SPECIALIST Yolanda Greer APRN-YIELD ENGINEER LAB - [place] CROBIOLOGY ORDERABLES [facility] [address] [place] [address] * PROC DEEP BRAIN STIMULATOR (11/03/2024 2:08 PM MEDIA SPECIALIST) Narrative Moncho Salcedo APRN-CNP - 11/03/2024 2:08 PM MEDIA SPECIALIST Moncho Salcedo APRN-ARELY 11/03/2024 4:00 PM Please see office notes for documentation- Thanks Moncho Salcedo INTERNET SALES DIRECTOR-YIELD ENGINEER PROCEDURE/MINOR SURGICAL ORDERABLES * XR Knee Left 4Vw or More (09/19/2024 9:18 AM MEDIA SPECIALIST) Anatomical Region Laterality Modality Lower Extremity Digital Radiogra phy 09/19/2024 10:0 4 AM MEDIA SPECIALIST Impressions 09/19/2024 10:41 AM MEDIA SPECIALIST IMPRESSION: No acute fracture or dislocation identified. Report dictated by Arnoldo Walker MD (cath lab radiology technician). I, Baljinder Henson MD have personally reviewed and interpreted this examination/study. > Interpreting Provider: Baljinder Henson MD on 09/19/2024 10:41 AM Narrative 09/19/2024 10:41 AM MEDIA SPECIALIST PROCEDURE: XR KNEE LEFT 4VW OR MORE, DATE/TIME OF EXAM: 09/19/2024 9:19 AM, LOCATION [facility] INDICATION: M25.562: Acute pain of left knee ADDITIONAL CLINICAL INFORMATION: COMPARISON: None. FINDINGS: The osseous structures are intact and well aligned without acute fracture or dislocation. The knee joint space is preserved. No joint effusion is seen. Procedure Note Baljinder Henson MD - 09/19/2024 PROCEDURE: XR KNEE LEFT 4VW OR MORE, DATE/TIME OF EXAM: 09/19/2024 9:19 AM, LOCATION [facility] INDICATION: M25.562: Acute pain of left knee ADDITIONAL CLINICAL INFORMATION: COMPARISON: None. FINDINGS: The osseous structures are intact and well aligned without acutefracture or dislocation. The knee joint space is preserved. No joint effusion is seen. IMPRESSION: No acute fracture or dislocation identified. Report dictated by Arnoldo Walker MD (cath lab radiology technician). I, Baljinder Henson MD have personally reviewed and interpreted this examination/study. > Interpreting Provider: Baljinder Henson MD on 09/19/2024 10:41 AM Kerry Montemayorhbach DO DIAGNOSTIC IMAGING O RDERABLES * XR Lumbar Spine 4Vw or More (09/19/2024 9:18 AM MEDIA SPECIALIST) Anatomical Region Laterality Modality Spine Digital Radiogra phy 09/19/2024 10:2 2 AM MEDIA SPECIALIST Impressions 09/19/2024 3:01 PM MEDIA SPECIALIST IMPRESSION: Moderate dextroscoliosis. Grade 1 anterior spondylolisthesis of L4 relative to L5 seen in association with mild instability as discussed above. > Dictated by Kim Noonan MD, (cath lab radiology technician). Sergio Gutierrez MD have personally reviewed and interpreted this examination/study. > Interpreting Provider: Sergio Omalley MD on 09/19/2024 3:01 PM Narrative 09/19/2024 3:01 PM MEDIA SPECIALIST PROCEDURE: XR LUMBAR SPINE 4VW OR MORE, DATE/TIME OF EXAM: 09/19/2024 9:19 AM, LOCATION [facility] INDICATION: M54.50: Acute bilateral low back [...] MORE, DATE/TIME OF EXAM: 49:19 AM, LOCATION [facility] INDICATION: M54.50: Acute bilateral low back [...] above. > Dictated by Kim Noonan MD, (cath lab radiology technician). I, Sergio Omalley MD have personally reviewed and interpreted this examination/study. > Interpreting Provider: Sergio Omalley MD on 09/19/2024 3:01 PM Kerry Montemayorhbach DO DIAGNOSTIC IMAGING O RDERABLES * (ABNORMAL) COMPREHENSIVE METABOLIC PANEL (07/20/2024 11:49 AM [facility]) BUN 10 7 - 26 mg/dL 07/20/2024 12:52 PM [facility] Creatinine 0.80 0.56 - 0.96 mg/dL 07/20/2024 12:52 PM [facility] Sodium 139 136 - 145 mmol/L 07/20/2024 12:52 PM [facility] Potassium 4.3 3.5 - 4.5 mmol/L 07/20/2024 12:52 PM [facility] Chloride 103 98 - 107 mmol/L 07/20/2024 12:52 PM [facility] CO2 28 22 - 29 mmol/L 07/20/2024 12:52 PM [facility] Glucose 165(H) 70 - 115 mg/dL 07/20/2024 12:52 PM [facility] Calcium 9.8 8.4 - 10.2 mg/dL 07/20/2024 12:52 PM [facility] Protein Total 7.1 6.0 - 8.3 g/dL 07/20/2024 12:52 PM [facility] Albumin 4.2 3.4 - 5.0 g/dL 07/20/2024 12:52 PM [facility] Bilirubin Total 0.2 0.2 - 1.2 mg/dL 07/20/2024 12:52 PM [facility] Alkaline Phosphatase 124 40 - 150 U/L 07/20/2024 12:52 PM [facility] ALT 16 5 - 55 U/L 07/20/2024 12:52 PM [facility] AST 20 5 - 34 U/L 07/20/2024 12:52 PM [facility] Anion Gap 8 6 - 16 07/20/2024 12:52 PM [facility] BUN/Creatinine Ratio 13 7 - 23 07/20/2024 12:52 PM [facility] Osmolality Calculated 291 275 - 295 mOsm/kg 07/20/2024 12:52 PM CDT [facility] Albumin/Globulin Ratio 1.4 1.1 - 2.3 07/20/2024 12:52 PM CDT [facility] eGFR by CKD-EPI 80(L) >=90 mL/min/1.7 3 m2 07/20/2024 12:52 PM CDT [facility] Blood BLOOD SPECIMEN / Unknown Lab Venipuncture / Unknown 07/20/2024 11:49 AM CDT 07/20/2024 12:17 PM CDT Yolanda Greer INTERNET SALES DIRECTOR-YIELD ENGINEER LAB - CH EMISTRY ORDERABLES [facility] [address] [place] [address], [facility] [phone] * HEMOGLOBIN A1C - POINT OF CARE (AMB) [facility] (04/04/2024 11:34 AM CDT) Hemoglobin A1c POCT 5.4 % [address] BLOOD SPECIMEN / Unknown 04/04/2024 11:34 AM CDT Kerry Coffman DO LAB - POINT OF CARE ORDERABLES Performing Organization Address City/[facility]/ZIP Co de Phone Number [address] [facility], [place] [address], [place] [phone] * MICROALB/CREAT RATIO URINE RANDOM PANEL (02/05/2023 [...] within a diagnostic category. Test Performed at: [facility] [place] [address] [facility] [place] [address] SAROJ FAUSTIN MD 02/05/2023 12:2 6 PM CDT 02/05/2023 12:27 PM CDT Marquise Adames MD LAB - URINE CHEMISTR Y ORDERABLES [employer] [address] [place] [address] from Last 3 Months or Most Recently Relevant to Health Maintenance Advance Directives * Full Code (Latest Code Status on File) Date Activated Date Inactivated Comments 08/29/2022 4:40 PM 08/31/2022 1:59 PM * Full Code Date Activated Date Inactivated Comments 03/17/2022 3:37 PM 03/19/2022 1:47 PM Care Teams Engineer Operations And Maintenance Relationship Specialty Start Date End Date Kerry Coffman DO [address] [facility] [address] [place] [address] PCP - General Internal Medicine 12/15/23
--- OUTSIDE RECORDS SUMMARY | 2024-12-17 12:38 | XMS_ITS | Clinical Summary ---
Author Organization [facility] [employer] Address [address] [place] [address] Care Team Providers Care Energy Economist Name Role Phone LuyandoKerry reddy Primary Care Provider [phone] Source Comments [facility] [employer],non-owned Affiliates and Associated Physician Practices is amultiple site organization consisting of ambulatory clinics and hospital sitesin [place], [place], [place] and [place]. This disclosure is being madepursuant to the Care Everywhere program and may not contain all information available regarding this patient. Last updated 18.[facility] [employer] Allergies Active Allergy Reactions Criticality Noted Date [...] tabletIndications: Bipolar affective disorder, remission status unspecified ([facility]) Take 1 (one) tablet by mouth [...] route every 30 days Active blood glucose ([address] Ultra) test stripIndications:T ype 2 diabetes mellitus with hyperglycemia, without long-term current use of insulin ([facility]) USE 1 STRIP TO CHECK GLUCOSE [...] rhinitis, unspecified seasonality, unspecified trigger,Chronic daily headache Madison 2 (two) sprays into each nostril once daily 16 g 6 08/11/2024 Active azelastine (Astelin) 0.1 % nasal sprayIndications:C hronic rhinitis,Allergic rhinitis, unspecified seasonality, unspecified trigger,Chronic daily headache Madison 1 (one) spray into each nostril 2 [...] Only [facility] - [facility]rology [address] [place] [address] Moncho Salcedo APRN-ARELY Cognitive decline 12/08/2024 9:17 AM YARN WRAPPER - 12/08/2024 11:59 PM [facility] Hospital Encounter [facility] SC[facility] [address] [place] [address] Cornelio Lima MD Discharge Disposition: Home or Self Care 12/08/2024 9:17 AM YARN WRAPPER - 12/08/2024 11:59 PM YARN WRAPPER Hospital Encounter [facility] [address] [place] [address] Cornelio Lima MD Discharge Disposition: Home or Self Care 12/08/2024 7:08 AM YARN WRAPPER - 12/08/2024 9:16 AM YARN WRAPPER Hospital Encounter [facility] DI[facility]ST[facility] [address] [place] [address] Cornelio Lima MD Discharge Disposition: Home or Self Care 12/08/2024 Travel 11/28/2024 Telephone [facility] - Neurology [address] [place] [phone] Moncho Salcedo APRN-BENDING ROLL OPERATOR Medication Prior Auth Request (Emgality) 11/23/2024 10:58 AM YARN WRAPPER - 11/23/2024 11:59 PM YARN WRAPPER Hospital Encounter [facility] [address] [address] [place] [address] Cornelio Lima MD Discharge Disposition: Home or Self Care 11/23/2024 10:58 AM YARN WRAPPER - 11/23/2024 11:59 PM YARN WRAPPER Hospital Encounter [facility] [address] [address] [place] [address] Cornelio Lima MD Discharge Disposition: Home or Self Care 11/23/2024 10:00 AM YARN WRAPPER Office Visit [facility] - Orthopedics [address] [place] [phone] Cornelio Lima MD Lumbar spine pain (Primary Dx); Lumbar spondylosis; Spondylolisthesis of lumbar region; Degenerative scoliosis in adult patient; Cervical spondylosis with myelopathy; Cervicalgia 11/23/2024 9:49 AM YARN WRAPPER - 11/23/2024 10:57 AM YARN WRAPPER Hospital Encounter [facility] [address] [address] [place] [address] Cornelio Lima MD Discharge Disposition: Home or Self Care 11/23/2024 Travel 11/14/2024 Telephone [facility] Neurology [address] [place] [phone] Moncho Salcedo APRN-CNP Medication Clarification (Emgaltiy) 11/11/2024 10:15 AM YARN WRAPPER - 11/11/2024 11:00 AM YARN WRAPPER Surgery [facility] [address] [place] [address] Sixto Cornell MD COLONOSCOPY SCREEN--extended prep 11/11/2024 10:00 AM YARN WRAPPER Anesthesia Event [facility] [address] [place] [address] Doug Forrester MD Dobbs, Kristin L, APRN-NETWORK ACCOUNT MANAGER 11/11/2024 8:14 AM YARN WRAPPER - 11/11/2024 11:24 AM YARN WRAPPER Hospital Encounter [facility] [address] [place] [phone] Sixto Cornell MD Surgery General Discharge Disposition: Home or Self Care 11/11/2024 Travel 11/04/2024 Patient Outreach [facility] [address] [place] [phone] Samantha Monterroso, RN 11/02/2024 3:30 PM YARN WRAPPER Office Visit [facility] - Neurology [address] [place] [phone] Moncho Salcedo APRN-CNP Intractable 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 (Primary Dx) 11/02/2024 Travel 10/26/2024 10:30 AM YARN WRAPPER [facility] [address] [place] [phone] Yolanda Greer APRN-CNP Chronic diarrhea (Primary Dx) 10/26/2024 Travel 10/25/2024 Orders Only [facility] [address] [place] [phone] Wendy Humphrey, RN 10/24/2024 Travel 10/20/2024 Telephone [facility] - Centralized Scheduling [address] [place] [address] Moncho Salcedo APRN-CNP Appointment 10/06/2024 Orders Only [facility] OP [address] [place] [address] Alok Christie III, MD Spondylolisthesis at L4-L5 level 09/27/2024 Travel 09/27/2024 Telephone [facility] [address] [place] [address] Rissa Vo MD Med Question 09/19/2024 9:05 AM YARN WRAPPER - 09/19/2024 11:59 PM YARN WRAPPER Hospital Encounter [facility] OP [address] [place] [address] Kerry Coffman DO Discharge Disposition: Home or Self Care 09/19/2024 8:00 AM YARN WRAPPER Office Visit [facility] - Internal Med [address] [place] [address] Kerry Coffman DO Routine general medical examination at health care facility (Primary Dx); Acute bilateral low back pain without sciatica; Acute pain of left knee; Type 2 diabetes mellitus with hyperglycemia, without long-term current use of insulin (HCC); Chronic diarrhea; Migraine without aura and without status migrainosus, not intractable; Benign essential tremor; Bipolar affective disorder, remission status unspecified (HCC); Rheumatoid arthritis with negative rheumatoid factor, involving unspecified site ([facility]) 09/19/2024 Travel from Last 3 Months Immunizations Name Administration [...] Sex Assigned at Female 09/16/2024 2:41 PM YARN WRAPPER Gender Identity Female 09/16/2024 2:41 PM YARN WRAPPER Sexual Orientation Straight 09/16/2024 2: 41 PM YARN WRAPPER Last Filed Vital Signs Vital Sign Reading Time Taken Comments Blood Pressure 114/82 12/08/2024 12:30 PM YARN WRAPPER Pulse 59 12/08/2024 12:30 PM YARN WRAPPER Temperature 36.6 C (97.8 F) 12/08/2024 10:30 AM YARN WRAPPER Respiratory Rate 14 12/08/2024 12:30 PM YARN WRAPPER Oxygen Saturation 96% 12/08/2024 12:30 PM YARN WRAPPER Inhaled Oxygen Concentration - - Weight 66.9 kg (147 lb 8 oz) 12/08/2024 8:01 AM YARN WRAPPER Height 167.6 cm (5' 6 ) 12/08/2024 8:01 AM YARN WRAPPER Body Mass Index 23.81 12/08/2024 8:01 AM YARN WRAPPER Plan of Treatment Upcoming Encounters Date Type Department Care Team (Late st Contact Info) Description 01/04/2025 9:15 AM CDT Office Visit [facility] - Orthopedics [address] [place] [phone] Cornelio Lima MD [facility] [place] [address] 01/25/2025 10:30 AM CDT Office Visit [facility] - GI [address] [place] [phone] Yolanda Greer, MACHINE WHITENER-BENDING ROLL OPERATOR [facility] [place] [phone] 02/09/2025 11:15 AM CDT Office [facility] Op[facility] [address] [place] [phone] Percy Matute MD [address] [place] [address] [place] [phone] 02/09/2025 4:00 PM CDT Office Visit [facility] - Allergy [address] [place] [phone] Papito Morales MD [address] [place] [address] 2L DIV OF ALLERGY/[place] [address] 03/02/2025 1:00 PM CDT Office Visit [facility] - Neurology [address] [place] [address], [place] [phone] Moncho Salcedo, MACHINE WHITENER-BENDING ROLL OPERATOR [address] [place] [address] [address] [place] [phone] 03/20/2025 11:00 AM CDT Office Visit [facility] - Internal Med [address] [place] [phone] Kerry Coffman DO [address] [place] [address] 2L DIV OF [place] [address] 04/13/2025 3:00 PM CDT Office Visit [facility] Allergy [address] [place] [phone] Papito Morales MD [address] [place] [address] 2[address] DIV OF ALLERGY/[place] [address] Health Maintenance Due Date Last Done Comments [...] Additional history exists INFLUENZA VACCINE (#1) 2024 3, 07/03/2022, 10/08/2021, Additional history exists DIABETES-HGB A1C [...] Additional history exists ZOSTER VACCINE Completed 10/15/2022, 12/11, 05/16/2021 BONE DENSITY TESTING Completed 03/08/2024, 08/08/20 [...] Management General On track( 025 10:42 AM YARN WRAPPER) No Marion Mera, RN Note: Expected end date: ongoing Interventions: Take all medications as prescribed Medical Devices Implanted Type Area Spray Maker Device Identifier Shelf Expiration Date Model / Serial / Lot Slnt Dura Duraseal Pg Trilysine Amine 5 Implanted:Qty: 1 on 03/17/2022 by Jackelyn Yang MD at [facility] Left: Cranial Enth[employer] Michael 08/11/2023 [id number] / / [id number] Guardian Branial Yuriy Hole Cover Sys Implanted:Qty: 1 on 03/17/2022 by Jackelyn Yang MD at [facility] Left: Cranial [employer] 01/01/2024 6010 / / [id number] Directional Lead Implanted:Qty: 1 on 03/17/2022 by Shailesh North MD at [facility] Left: Cranial [employer] 09/25/2023 6172 / [id number] / Lead Extension Implanted:Qty: 1 on 03/24/2022 by Shailesh North MD at [facility] Left: Neck [employer] 01/15/2024 6371ANS / / [id number] Generator Implanted:Qty: 1 on 03/24/2022 by Shailesh North MD at [facility] Left: Chest [employer] 11/19/2023 6662 / / [id number] [place] Spnl 140mm 6.35mm Ti Str Implanted:Qty: 1 on 08/29/2022 by Shailesh North MD at [facility] Right: Scalp [employer] 04/02/2024 6010 / / [employer] Dbs System Implanted:Qty: 1 on 08/29/2022 by Joshua Gill MD at [facility] Right: Brain 03/19/2024 6172 / [id number] / Description:cost per Levar [employer] Dbs System Implanted:Qty: 1 on 08/29/2022 by Joshua Gill MD at [facility] Right: Chest Wall 04/23/2024 6373 / [id number] / Description:cost per levar Procedures Procedure Name Priority Date/Time Associated Diagnosis Comments FL MYELOGRAM 2 OR MORE REGIONS Routine 12/08/2024 10:27 AM YARN WRAPPER Lumbar spine pain CT LUMBAR POST MYELOGRAM Routine 12/08/2024 10:25 AM YARN WRAPPER Lumbar spine pain CT CERVICAL POST MYELOGRAM Routine 12/08/2024 10:25 AM YARN WRAPPER Lumbar spine pain XR SPINE ENTIRE 2 OR 3VW Routine 11/23/2024 11:09 AM YARN WRAPPER Lumbar spine pain XR CERVICAL SPINE 2 OR 3VW Routine 11/23/2024 11:06 AM YARN WRAPPER Lumbar spine pain XR LUMBAR SPINE 2 OR 3VW Routine 11/23/2024 10:00 AM YARN WRAPPER Lumbar spine pain PATHOLOGY TISSUE Routine 11/11/2024 10:1 6 AM YARN WRAPPER Screen for colon cancer [facility] CANC SCRN,SCOPY NOT HI RISK 11/11/2024 9:55 AM YARN WRAPPER Screen for colon cancer ENDOSCOPY, COLON, SCREENING Routine 11/11/2024 9:52 AM YARN WRAPPER GLUCOSE - POINT OF CARE Routine 11/11/2024 9:19 AM YARN WRAPPER CALPROTECTIN FECAL Routine 11/07/2024 3: 52 PM YARN WRAPPER Chronic diarrhea CULTURE STOOL PANEL Routine 11/07/2024 3 :52 PM YARN WRAPPER Chronic diarrhea C DIFFICILE CYTOTOXIN Routine 11/07/2024 3:51 PM YARN WRAPPER Chronic diarrhea PROC DEEP BRAIN STIMULATOR Routine 11/03/2024 2:08 PM YARN WRAPPER Intractable 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 XR LUMBAR SPINE 4VW OR MORE Routine 09/19/2024 9:18 AM YARN WRAPPER Acute bilateral low back pain without sciatica XR KNEE LEFT 4VW OR MORE Routine 09/19/2024 9:18 AM YARN WRAPPER Acute pain of left knee COMPREHENSIVE METABOLIC [...] 2 or More Regions (12/08/2024 10:27 AM YARN WRAPPER) Anatomical Region Laterality Modality Spine Digital Radiogra phy 12/08/2024 1:17 PM YARN WRAPPER Impressions 12/13/2024 12:15 PM YARN WRAPPER IMPRESSION: 1.Successful lumbar puncture for cervical and [...] degenerative disc and joint disease as detailed bthlk-me-kxlcj above, worse at L4-L5, as outlined. 2.Transitional anatomy as noted above. The report is dictated by Addi Arambula MD, (resident buyer) Attending Physician: Dr. Magdalena Blackmon Document Control Associate: Dr. Addi Arambula MD, (resident buyer) The procedure was performed by the: The photo studio assistant, and the attending radiologist was present for all critical and mariscal portions of the procedure, and was immediately available to furnish services during the entire procedure. The attending radiologist performed the following procedural activities: I, Dr. Rodriguezeen Mahmoud was there and supervised mariscal portions of the procedure, not scrubbed. IMagdalena MD have personally reviewed and interpreted this examination/study. > Interpreting Provider: Magdalena Blackmon MD on 12/13/2024 12:15 PM Narrative 12/13/2024 12:15 PM YARN WRAPPER PROCEDURE: FL MYELOGRAM 2 OR MORE REGIONS, CT LUMBAR POST MYELOGRAM, CT CERVICAL POST MYELOGRAM DATE/TIME OF EXAM: 12/08/2024 10:34 AM CLINICAL INFORMATION: PROCEDURE: FL MYELOGRAM 2 OR MORE REGIONS, CT LUMBAR POST MYELOGRAM, CT CERVICAL POST MYELOGRAM, DATE/TIME OF EXAM: 12/08/2024 10:34 AM, LOCATION [facility] INDICATION: M54.50: Lumbar spine pain ADDITIONAL CLINICAL INFORMATION: Ordering Provider Reason For Exam: myelopathy (accession [id number]), chronic low back pain (accession [id number]) Technologist Note: None. Additional: None. EXAMINATION: 1.Lumbar [...] The patient was then transferred to the healthcare educator unit for further observation and 2 hours [...] no high-grade central canal stenosis. There is xcbk-uw-bsztyfmn facet osteoarthritis. There is mild bilateral neural foraminal stenosis. Procedure Note Magdalena Blackmon MD - 12/13/2024 PROCEDURE: FL MYELOGRAM 2 OR MORE REGIONS, CT LUMBAR POST MYELOGRAM, CT CERVICAL POST MYELOGRAM DATE/TIME OF EXAM: 12/08/2024 10:34 AM CLINICAL INFORMATION: PROCEDURE: FL MYELOGRAM 2 OR MORE REGIONS, CTLUMBAR POST MYELOGRAM, CT CERVICAL POST MYELOGRAM, DATE/TIME OF EXAM:12/08/2024 10:34 AM, LOCATION [facility] INDICATION: M54.50: Lumbar spine pain ADDITIONAL CLINICAL INFORMATION: Ordering Provider Reason For Exam: myelopathy (accession [id number]), chronic low back pain (accession [id number]) Technologist Note: None. Additional: None. EXAMINATION: 1.Lumbar [...] well. The patient wasthen transferred to the healthcare educator unit for further observation and 2hours of [...] island in the right aspect of the Z6zwbxmgssj body. Vertebral bodies are normal in height [...] is no high-grade central canal stenosis. Thereis vfre-uo-uegpnbid facet osteoarthritis. There is mild bilateral neural [...] 1.Multilevel degenerative disc and joint disease as brkwnqabbbzph-rj-tqaym above, worse at L4-L5, as outlined. 2.Transitional anatomy as noted above. The report is dictated by Addi Arambula MD, (resident buyer) Attending Physician: Dr. Magdalena Blackmon Document Control Associate: Dr. Addi Arambula MD, (resident buyer) The procedure was performed by the: The photo studio assistant, and the attending radiologist was present for allcritical and mariscal portions of the procedure, and was [facility] the entire procedure. The attending radiologist performed the following procedural activities: IDr. Magdalena was there and supervised mariscal portions of the procedure, not scrubbed. IMagdalena MD have personally reviewed and interpretedthis examination/study. > Interpreting Provider: Magdalena Blackmon MD on 12/13/2024 12:15 PM Cornelio Lima MD FLUOROSCOPY OR DERABLES * CT Lumbar Post Myelogram (12/08/2024 10:25 AM YARN WRAPPER) Anatomical Region Laterality Modality Spine Computed Tomogra phy 12/08/2024 1:17 PM YARN WRAPPER Impressions 12/13/2024 12:15 PM YARN WRAPPER IMPRESSION: 1.Successful lumbar puncture for cervical and [...] degenerative disc and joint disease as detailed iacmv-ji-uhkxm above, worse at L4-L5, as outlined. 2.Transitional anatomy as noted above. The report is dictated by Addi Arambula MD, (resident buyer) Attending Physician: Dr. Magdalena Blackmon Document Control Associate: Dr. Addi Arambula MD, (resident buyer) The procedure was performed by the: The photo studio assistant, and the attending radiologist was present [...] 12/13/2024 12:15 PM Narrative 12/13/2024 12:15 PM YARN WRAPPER PROCEDURE: FL MYELOGRAM 2 OR MORE REGIONS, CT LUMBAR POST MYELOGRAM, CT CERVICAL POST MYELOGRAM DATE/TIME OF EXAM: 12/08/2024 10:34 AM CLINICAL INFORMATION: PROCEDURE: FL MYELOGRAM 2 OR MORE REGIONS, CT LUMBAR POST MYELOGRAM, CT CERVICAL POST MYELOGRAM, DATE/TIME OF EXAM: 12/08/2024 10:34 AM, LOCATION [facility] INDICATION: M54.50: Lumbar spine pain ADDITIONAL CLINICAL INFORMATION: Ordering Provider Reason For Exam: myelopathy (accession [id number]), chronic low back pain (accession [id number]) Technologist Note: None. Additional: None. EXAMINATION: 1.Lumbar [...] The patient was then transferred to the healthcare educator unit for further observation and 2 hours [...] no high-grade central canal stenosis. There is mpvr-ry-eyiwerqk facet osteoarthritis. There is mild bilateral neural foraminal stenosis. Procedure Note Magdalena Blackmon MD - 12/13/2024 PROCEDURE: FL MYELOGRAM 2 OR MORE REGIONS, CT LUMBAR POST MYELOGRAM, CT CERVICAL POST MYELOGRAM DATE/TIME OF EXAM: 12/08/2024 10:34 AM CLINICAL INFORMATION: PROCEDURE: FL MYELOGRAM 2 OR MORE REGIONS, CTLUMBAR POST MYELOGRAM, CT CERVICAL POST MYELOGRAM, DATE/TIME OF EXAM:12/08/2024 10:34 AM, LOCATION [facility] INDICATION: M54.50: Lumbar spine pain ADDITIONAL CLINICAL INFORMATION: Ordering Provider Reason For Exam: myelopathy (accession [id number]), chronic low back pain (accession [id number]) Technologist Note: None. Additional: None. EXAMINATION: 1.Lumbar [...] well. The patient wasthen transferred to the healthcare educator unit for further observation and 2hours of [...] island in the right aspect of the M2clzcjmwvt body. Vertebral bodies are normal in height [...] is no high-grade central canal stenosis. Thereis kbry-ab-vvjnhfiz facet osteoarthritis. There is mild bilateral neural [...] 1.Multilevel degenerative disc and joint disease as hieoxvactbfbv-to-hvjoz above, worse at L4-L5, as outlined. 2.Transitional anatomy as noted above. The report is dictated by Addi Arambula MD, (resident buyer) Attending Physician: Dr. Magdalena Blackmon Document Control Associate: Dr. Addi Arambula MD, (resident buyer) The procedure was performed by the: The photo studio assistant, and the attending radiologist was present for allcritical and mariscal portions of the procedure, and was immediately [facility] the entire procedure. The attending radiologist performed the following procedural activities: IDr. Magdalena was there and supervised mariscal portions of the procedure, not scrubbed. IMagdalena MD have personally reviewed and interpretedthis examination/study. > Interpreting Provider: Magdalena Blackmon MD on 12/13/2024 12:15 PM Cornelio Lima MD CT ORDERABLES * CT Cervical Post Myelogram (12/08/2024 10:25 AM YARN WRAPPER) Anatomical Region Laterality Modality Spine Computed Tomogra phy 12/08/2024 1:17 PM YARN WRAPPER Impressions 12/13/2024 12:15 PM YARN WRAPPER IMPRESSION: 1.Successful lumbar puncture for cervical and [...] degenerative disc and joint disease as detailed bexrr-me-akhws above, worse at L4-L5, as outlined. 2.Transitional anatomy as noted above. The report is dictated by Addi Arambula MD, (resident buyer) Attending Physician: Dr. Magdalena Blackmon Document Control Associate: Dr. Addi Arambula MD, (resident buyer) The procedure was performed by the: The photo studio assistant, and the attending radiologist was present [...] 12/13/2024 12:15 PM Narrative 12/13/2024 12:15 PM YARN WRAPPER PROCEDURE: FL MYELOGRAM 2 OR MORE REGIONS, CT LUMBAR POST MYELOGRAM, CT CERVICAL POST MYELOGRAM DATE/TIME OF EXAM: 12/08/2024 10:34 AM CLINICAL INFORMATION: PROCEDURE: FL MYELOGRAM 2 OR MORE REGIONS, CT LUMBAR POST MYELOGRAM, CT CERVICAL POST MYELOGRAM, DATE/TIME OF EXAM: 12/08/2024 10:34 AM, LOCATION [facility] INDICATION: M54.50: Lumbar spine pain ADDITIONAL CLINICAL INFORMATION: Ordering Provider Reason For Exam: myelopathy (accession [id number]), chronic low back pain (accession [id number]) Technologist Note: None. Additional: None. EXAMINATION: 1.Lumbar [...] The patient was then transferred to the healthcare educator unit for further observation and 2 hours [...] no high-grade central canal stenosis. There is qqnn-tf-glurogpa facet osteoarthritis. There is mild bilateral neural foraminal stenosis. Procedure Note Magdalena Blackmon MD - 12/13/2024 PROCEDURE: FL MYELOGRAM 2 OR MORE REGIONS, CT LUMBAR POST MYELOGRAM, CT CERVICAL POST MYELOGRAM DATE/TIME OF EXAM: 12/08/2024 10:34 AM CLINICAL INFORMATION: PROCEDURE: FL MYELOGRAM 2 OR MORE REGIONS, CTLUMBAR POST MYELOGRAM, CT CERVICAL POST MYELOGRAM, DATE/TIME OF EXAM:12/08/2024 10:34 AM, LOCATION [facility] INDICATION: M54.50: Lumbar spine pain ADDITIONAL CLINICAL INFORMATION: Ordering Provider Reason For Exam: myelopathy (accession [id number]), chronic low back pain (accession [id number]) Technologist Note: None. Additional: None. EXAMINATION: 1.Lumbar [...] well. The patient wasthen transferred to the healthcare educator unit for further observation and 2hours of [...] island in the right aspect of the D3npyvvjdms body. Vertebral bodies are normal in height [...] is no high-grade central canal stenosis. Thereis jynk-ka-dlmlubfa facet osteoarthritis. There is mild bilateral neural [...] 1.Multilevel degenerative disc and joint disease as jfduqinievpti-ki-apkvj above, worse at L4-L5, as outlined. 2.Transitional anatomy as noted above. The report is dictated by Addi Arambula MD, (resident buyer) Attending Physician: Dr. Magdalena Blackmon Document Control Associate: Dr. Addi Arambula MD, (resident buyer) The procedure was performed by the: The photo studio assistant, and the attending radiologist was present for allcritical and mariscal portions of the procedure, and was immediately [facility] entire procedure. The attending radiologist performed the following procedural activities: Dr. Magdalena Gutierrez was there and supervised mariscal portions of the procedure, not scrubbed. Magdalena Gutierrez MD have personally reviewed and interpretedthis examination/study. > Interpreting Provider: Magdalena Blackmon MD on 12/13/2024 12:15 PM Cornelio Lima MD CT ORDERABLES * XR Spine Entire 2 or 3Vw (11/23/2024 11:09 AM YARN WRAPPER) Anatomical Region Laterality Modality Spine Radiographic Erna ging 11/23/2024 11:3 1 AM YARN WRAPPER Impressions 11/23/2024 11:34 AM YARN WRAPPER IMPRESSION: Mild scoliosis. > Interpreting Provider: Baljinder Henson MD on 11/23/2024 11:34 AM Narrative 11/23/2024 11:34 AM YARN WRAPPER PROCEDURE: XR SPINE ENTIRE 2 OR 3VW [...] thoracic and lumbar degenerative change. Procedure Note Baljnider Henson MD - 11/23/2024 PROCEDURE: XR SPINE [...] 10 degrees, a lower thoracic levo curve [id number] degrees, and a lumbar dextro curve measuring [...] Spine 2 or 3Vw (11/23/2024 11:06 AM YARN WRAPPER) Anatomical Region Laterality Modality Spine Radiographic Erna ging 11/23/2024 11:2 9 AM YARN WRAPPER Impressions 11/23/2024 11:31 AM YARN WRAPPER IMPRESSION: Moderate cervical spondylosis. > Interpreting Provider: Baljinder Henson MD on 11/23/2024 11:31 AM Narrative 11/23/2024 11:31 AM YARN WRAPPER PROCEDURE: XR CERVICAL SPINE 2 OR 3VW [...] Spine 2 or 3Vw (11/23/2024 10:00 AM YARN WRAPPER) Anatomical Region Laterality Modality Spine Computed Radiogr aphy 11/23/2024 10:3 8 AM YARN WRAPPER Impressions 11/23/2024 10:39 AM YARN WRAPPER IMPRESSION: Mild to moderate degenerative changes. > Interpreting Provider: Baljinder Henson MD on 11/23/2024 10:39 AM Narrative 11/23/2024 10:39 AM YARN WRAPPER PROCEDURE: XR LUMBAR SPINE 2 OR 3VW [...] moderate degenerative changes. > Interpreting Provider: Baljinder eHnson MD on 11/23/2024 10:39 AM Cornelio Lima MD DIAGNOSTIC ERNA GING ORDERABLES * PATHOLOGY TISSUE (11/11/2024 10:16 AM YARN WRAPPER) Case Report Surgical Pathology Report Case: [id number] Authorizing Provider: Sixto oCrnell MD Collected: 11/11/2024 10:16 AM Ordering Location: [facility] ENDOSCOPY Received: 11/11/2024 10:58 AM Pathologist: Kenyatta Norris MD Specimens: A) - Polyp Ascending, ascending colon polyp B) - Polyp Descending, descending colon polyps 11/14/2024 3:20 PM YARN WRAPPER [facility] PATHOLOGY LAB Final Diagnosis Large intestine, ascending colon polyp, biopsy (A): - Tubular adenoma Large intestine, descending colon polyps, biopsy (B): - Tubular adenoma(s), fragmented 11/14/2024 3:20 PM YARN WRAPPER [facility] PATHOLOGY LAB Microscopic Description and [...] MEDICAL CENTER PATHOLOGY LAB Pathologist Location at [facility] 11/14/2024 3:20 PM [facility] PATHOLOGY LAB Disclaimer The performance characteristics of all immunohistochemical and indirect immunofluorescence stains (if any) cited in this report were determined by the Histopathology Laboratory of [facility]. Some of these tests were developed [...] the attending (teaching) pathologist. 11/14/2024 3:20 PM [facility] PATHOLOGY LAB Embedded Images 11/14/2024 3:20 PM [facility] PATHOLOGY LAB Biopsy, NOS POLYP / Unknown 11/11/2024 1 0:16 AM YARN WRAPPER 11/11/2024 10:58 AM YARN WRAPPER Comment:Pre-op diagnosis: Screen for colon cancer [Z12.11] Biopsy, NOS POLYP / Unknown 11/11/2024 1 0:19 AM YARN WRAPPER 11/11/2024 10:58 AM YARN WRAPPER Comment:Pre-op diagnosis: Screen for colon cancer [Z12.11] Sixto Cornell MD LAB - PATHOLOGY/CYTO LOGY ORDERABLES [facility] [address] [place] [address], [facility] [phone] * ENDOSCOPY, COLON, SCREENING (11/11/2024 9:52 AM YARN WRAPPER) Report Endoscopy POC Endoscopy Department Report _ [...] bowel preparation was evaluated using the BBPS ([place] Bowel Preparation Scale) with scores of: Right [...] non-mariscal portions. Procedure Code(s): --- Professional --- 04973, Colonoscopy, flexible; with removal of tumor(s), polyp(s), or other lesion(s) by snare technique 36963, 59, Colonoscopy, flexible; with biopsy, single or multiple Diagnosis Code(s): --- Professional --- Z86.010, Personal history of colonic polyps D12.2, Benign neoplasm of ascending colon D12.4, Benign neoplasm of descending colon K57.30, Diverticulosis of large intestine without perforation or abscess without bleeding CPT copyright 2021 [employer]. All rights reserved. The codes documented in this report are preliminary and upon mat gauger review may be revised to meet current compliance requirements. Sixto Cornell MD 11/11/2024 10:36:45 AM This report has been signed electronically. Note Initiated On: 11/11/2024 9:52 AM Number of Addenda: [address] [address] [facility] 11/11/2024 9:52 AM YARN WRAPPER Sixto Cornell MD GI PROCEDURE ORDERAB LES Performing Organization Address [facility] Co de Phone Number [facility] * GLUCOSE - POINT OF CARE (11/11/2024 9:19 AM YARN WRAPPER) Glucose WB/POC 99 70 - 99 mg/dL 11/11/2024 9:54 AM YARN WRAPPER [facility] Specimen Type Venous 11/11/2024 9:54 AM YARN WRAPPER [facility] Blood BLOOD SPECIMEN / Unknown 11/11/2024 9:19 AM YARN WRAPPER 11/11/2024 9:54 AM YARN WRAPPER Sixto Cornell MD LAB - POINT OF CARE ORDERABLES Performing Organization Address [facility] Co de Phone Number [address] [address], [facility] [phone] * CALPROTECTIN FECAL (11/07/2024 3:52 PM YARN WRAPPER) Calprotectin Fecal 69 mcg/g [facility] Comment: Reference [...] suggested for borderline values. Test Performed at: [facility] [address] [place] [address] JARRELL CALDERON MD,PHD,EDGARDO Stool STOOL SPECIMEN / Unknown 11/07/2024 3:52 PM YARN WRAPPER 11/08/2024 4:47 AM YARN WRAPPER Yolanda Greer APRNARELY HAZEL - CRISTINA DY FLUID ORDERABLES Performing Organization Address [facility] de Phone Number [address] [address] * CULTURE STOOL PANEL (11/07/2024 3:52 PM YARN WRAPPER) Campylobacter Antigen [facility] Comment: CAMPYLOBACTER SPP. AG,EIA Micro Number: [id number] Test Status: Final Specimen Source: Stool Specimen Quality: Adequate Campy Ag Result: Not Detected Reference Range: Not Detected EIA [facility] Comment: SHIGA TOXINS, EIA W/RFL TO E.COLI O157 CULTURE Micro Number: [id number] Test Status: Final Specimen Source: Stool Specimen Quality: Adequate Shiga Toxin: Not Detected Reference Range: Not Detected Culture [facility] Comment: SALMONELLA AND SHIGELLA, CULTURE Micro Number: [id number] Test Status: Final Specimen Source: Stool Specimen Quality: Adequate Result: No Salmonella or Shigella isolated Test Performed at: [facility] [address] SAROJ FAUSTIN MD Stool STOOL SPECIMEN / Unknown 11/07/2024 3:52 PM YARN WRAPPER 11/07/2024 11:51 PM YARN WRAPPER [facility]olanda Greer [facility] CROBIOLOGY ORDERABLES Performing Organization Address [facility]/ZIP Co de Phone Number [facility] [phone] [place] [address] * C DIFFICILE CYTOTOXIN (11/07/2024 3:51 PM YARN WRAPPER) Cytotoxin Assay Stool NOT DETECTED [facility] Comment: REFERENCE RANGE: NOT DETECTED Per CDC the Clostridium difficile cytotoxicity assay, order code 4408, has served as a historical gold standard for diagnosing clinical significant disease caused by Clostridium difficile, however, it is not timely for routine diagnosis. [facility] and [facility] guidelines now recognize either two step testing using Clostridium difficile toxin/Glutamate Dehydrogenase (GDH) with Reflex to PCR, order code 56467 or Clostridium difficile toxin B, Qualitative real time PCR, test code 84600 to be more sensitive and timely methods for the diagnosis of C. difficile colitis. For additional information, please refer to http://education.SkyKick/faq/XCC936 (This link is being provided for informational/ educational purposes only.) Test Performed at: [facility] [address] [place] [address] JARRELL CALDERON MD,PHD,EDGARDO Stool STOOL SPECIMEN / Unknown 11/07/2024 3:51 PM YARN WRAPPER 11/08/2024 4:58 AM YARN WRAPPER Yolanda [facility] CROBIOLOGY ORDERABLES Performing Organization Address [facility] Co de Phone Number [facility] [address] [place] [address] * PROC DEEP BRAIN STIMULATOR (11/03/2024 2:08 PM YARN WRAPPER) Narrative Moncho Salcedo APRN-CNP - 11/03/2024 2:08 PM YARN WRAPPER Moncho Salcedo APRN-CNP 11/03/2024 4:00 PM Please see office notes for documentation- Thanks Moncho [facility] PROCEDURE/MINOR SURGICAL ORDERABLES * XR Knee Left 4Vw or More (09/19/2024 9:18 AM YARN WRAPPER) Anatomical Region Laterality Modality Lower Extremity Digital Radiogra phy 09/19/2024 10:0 4 AM YARN WRAPPER Impressions 09/19/2024 10:41 AM YARN WRAPPER IMPRESSION: No acute fracture or dislocation identified. Report dictated by Arnoldo Walker MD (resident buyer). Baljinder Gutierrez MD have personally reviewed and interpreted this examination/study. > Interpreting Provider: Baljinder Henson MD on 09/19/2024 10:41 AM Narrative 09/19/2024 10:41 AM YARN WRAPPER PROCEDURE: XR KNEE LEFT 4VW OR MORE, DATE/TIME OF EXAM: 09/19/2024 9:19 AM, LOCATION [facility] INDICATION: M25.562: Acute pain of left knee ADDITIONAL CLINICAL INFORMATION: COMPARISON: None. FINDINGS: The osseous structures are intact and well aligned without acute fracture or dislocation. The knee joint space is preserved. No joint effusion is seen. Procedure Note Baljinder Henson MD - 09/19/2024 PROCEDURE: XR KNEE LEFT 4VW OR MORE, DATE/TIME OF EXAM: 09/19/2024 9:19 AM, LOCATION [facility] INDICATION: M25.562: Acute pain of left knee ADDITIONAL CLINICAL INFORMATION: COMPARISON: None. FINDINGS: The osseous structures are intact and well aligned without acutefracture or dislocation. The knee joint space is preserved. No joint effusion is seen. IMPRESSION: No acute fracture or dislocation identified. Report dictated by Arnoldo Walker MD (resident buyer). Baljinder Gutierrez MD have personally reviewed and interpreted this examination/study. > Interpreting Provider: Baljinder Henson MD on 09/19/2024 10:41 AM Kerry Coffman DO DIAGNOSTIC IMAGING O RDERABLES * XR Lumbar Spine 4Vw or More (09/19/2024 9:18 AM YARN WRAPPER) Anatomical Region Laterality Modality Spine Digital Radiogra phy 09/19/2024 10:2 2 AM YARN WRAPPER Impressions 09/19/2024 3:01 PM YARN WRAPPER IMPRESSION: Moderate dextroscoliosis. Grade 1 anterior spondylolisthesis of L4 relative to L5 seen in association with mild instability as discussed above. > Dictated by Kim Noonan MD, (resident buyer). Sergio Gutierrez MD have personally reviewed and interpreted this examination/study. > Interpreting Provider: Sergio Omalley MD on 09/19/2024 3:01 PM Narrative 09/19/2024 3:01 PM YARN WRAPPER PROCEDURE: XR LUMBAR SPINE 4VW OR MORE, DATE/TIME OF EXAM: 09/19/2024 9:19 AM, LOCATION [facility] INDICATION: M54.50: Acute bilateral low back pain [...] MORE, DATE/TIME OF EXAM: 49:19 AM, LOCATION [facility] INDICATION: M54.50: Acute bilateral low back pain [...] above. > Dictated by Kim Noonan MD, (resident buyer). I, Sergio Omalley MD have personally reviewed and interpreted this examination/study. > Interpreting Provider: Sergio Omalley MD on 09/19/2024 3:01 PM Kerry Coffman DO DIAGNOSTIC IMAGING O RDERABLES * (ABNORMAL) COMPREHENSIVE METABOLIC PANEL (07/20/2024 11:49 AM CDT) BUN 10 7 - 26 mg/dL 07/20/2024 12:52 PM [facility] Creatinine 0.80 0.56 - 0.96 mg/dL 07/20/2024 12:52 PM [facility] Sodium 139 136 - 145 mmol/L 07/20/2024 12:52 PM [facility] Potassium 4.3 3.5 - 4.5 mmol/L 07/20/2024 12:52 PM [facility] Chloride 103 98 - 107 mmol/L 07/20/2024 12:52 PM [facility] CO2 28 22 - 29 mmol/L 07/20/2024 12:52 PM [facility] Glucose 165(H) 70 - 115 mg/dL 07/20/2024 12:52 PM [facility] Calcium 9.8 8.4 - 10.2 mg/dL 07/20/2024 12:52 PM [facility] Protein Total 7.1 6.0 - 8.3 g/dL 07/20/2024 12:52 PM [facility] Albumin 4.2 3.4 - 5.0 g/dL 07/20/2024 12:52 PM [facility] Bilirubin Total 0.2 0.2 - 1.2 mg/dL 07/20/2024 12:52 PM [facility] Alkaline Phosphatase 124 40 - 150 U/L 07/20/2024 12:52 PM [facility] ALT 16 5 - 55 U/L 07/20/2024 12:52 PM [facility] AST 20 5 - 34 U/L 07/20/2024 12:52 PM [facility] Anion Gap 8 6 - 16 07/20/2024 12:52 PM CDT [facility] BUN/Creatinine Ratio 13 7 - 23 07/20/2024 12:52 PM CDT [facility] Osmolality Calculated 291 275 - 295 mOsm/kg 07/20/2024 12:52 PM CDT [facility] Albumin/Globulin Ratio 1.4 1.1 - 2.3 07/20/2024 12:52 PM CDT [facility] eGFR by CKD-EPI 80(L) >=90 mL/min/1.7 3 m2 07/20/2024 12:52 PM CDT [facility] Blood BLOOD SPECIMEN / Unknown Lab Venipuncture / Unknown 07/20/2024 11:49 AM CDT 07/20/2024 12:17 PM CDT Yolanda Greer MACHINE WHITENER-BENDING ROLL OPERATOR LAB - CH EMISTRY ORDERABLES [facility] [address] [place] [address], [facility] [phone] * HEMOGLOBIN A1C - POINT OF CARE (AMB) [facility] (04/04/2024 11:34 AM CDT) Hemoglobin A1c POCT 5.4 % [address] BLOOD SPECIMEN / Unknown 04/04/2024 11:34 AM CDT Kerry Coffman DO LAB - POINT OF CARE ORDERABLES Performing Organization Address [facility]/ZIP Co de Phone Number [address] [place] [address], [facility] [phone] * MICROALB/CREAT RATIO URINE RANDOM PANEL (02/05/2023 [...] within a diagnostic category. Test Performed at: [facility] [address] [facility] [address] SAROJ FAUSTIN MD 02/05/2023 12:2 6 PM CDT 02/05/2023 12:27 PM CDT Marquise Adames MD LAB - URINE CHEMISTR Y ORDERABLES Performing Organization Address City/State/[facility] Co de Phone Number [facility] [phone] [place] [address] from Last 3 Months or Most Recently Relevant to Health Maintenance Advance Directives * Full Code (Latest Code Status on File) Date Activated Date Inactivated Comments 08/29/2022 4:40 PM 08/31/2022 1:59 PM * Full Code Date Activated Date Inactivated Comments 03/17/2022 3:37 PM 03/19/2022 1:47 PM Care Teams Energy Economist Relationship Specialty Start Date End Date Kerry Coffman DO [address] DIV [place] [address] PCP - General Internal Medicine 12/15/23
--- OUTSIDE RECORDS SUMMARY | 2024-12-17 12:38 | XMS_ITS | Encounter Summary ---
Author Organization [facility] Health Address [address] [place] [address] Care Team Providers Care Circle Shear Operator Name Role Phone FirestoneKerry reddy Primary Care Provider [phone] Encounter Details Date Type Department Care Team (Late st Contact Info) Description 02/10/2024 Telephone [facility] - [facility]rology [address] [facility] ([place], [place]), [place] [address] Hyacinth Arriaga, HYDRO SPRAYER OPERATOR-BEVERAGE HOST [address] [place] [address] [place] [address] Social History Tobacco Use Types Packs/Day Years Used Date Smoking Tobacco: Never Assessed Sex and Gender Information Value Date Recorded Sex Assigned at Female 09/16/2024 2:41 PM ELECTRICAL SUBCONTRACTOR Gender Identity Female 09/16/2024 2:41 PM ELECTRICAL SUBCONTRACTOR Sexual Orientation Straight 09/16/2024 2: 41 PM ELECTRICAL SUBCONTRACTOR documented as of this encounter Functional Status [...] Office Visit [facility] - Orthopedics [address] [place] [phone] Cornelio Lima MD [facility] [place] [address] 01/25/2025 10:30 AM CDT Office Visit [facility] - GI [address] [place] [phone] Yolanda Greer, HYDRO SPRAYER OPERATOR-BEVERAGE HOST [facility] [place] [phone] 02/09/2025 11:15 AM CDT Office Visit [facility] - Ophthalmology [address] [place] [phone] Percy Matute MD [address] [place] [address] DEPT [place] [phone] 02/09/2025 4:00 PM CDT Office Visit [facility] - Allergy [address] [place] [phone] Papito Morales MD [address] [place] [address] DIV OF ALLERGY/[place] [address] 03/02/2025 1:00 PM CDT Office Visit [facility] - Neurology [address] [place] [address] [place] [phone] NathalieepifanioMoncho, HYDRO SPRAYER OPERATOR-BEVERAGE HOST [address] [place] [address] [address]L [place] [phone] 03/20/2025 11:00 AM CDT Office Visit [facility] - Internal Med [address] [place] [phone] Kerry Coffman DO [address] [place] [address] 2L DIV OF [place] [address] 04/13/2025 3:00 PM CDT Office Visit [facility] - Allergy [address] [place] [phone] Papito Morales MD [address] [place] [address] [address]L DIV [place] ALLERGY/[place] [address] documented as of this encounter Visit Diagnoses Not on filedocumented in this encounter Additional Health Concerns Infection Onset Date Last Indicated Resolved Time CDIFF Under Investigation 07/20/2024 07/20/2024 4:33 AM CDT CDIFF Under Investigation 10/26/2024 11/07/2024 4:33 AM ELECTRICAL SUBCONTRACTOR CDIFF Under Investigation 11/07/2024 11/07/2024 5:38 PM ELECTRICAL SUBCONTRACTOR documented as of this encounter Care Teams Circle Shear Operator Relationship Specialty Start Date End Date Kerry Coffman DO [address] [place] [address] 2L DIV OF [place] [address] PCP - General Internal Medicine 12/15/23 documented as of this encounter
--- OUTSIDE RECORDS SUMMARY | 2024-12-17 12:38 | XMS_ITS | Referral Summary ---
Author Organization [facility] Address [address] [place] [phone] Care Team Providers Care Pocket And Pulley Machine Operator Name Role Phone Kerry Coffman DO Primary Care Provider Encounters Date Type Department Care Team Description 11/21/2024 1:50 PM CHANGE MANAGEMENT COORDINATOR - 11/21/2024 11:59 PM CHANGE MANAGEMENT COORDINATOR Hospital Encounter [facility] at [facility] [address] [place] [address] Discharge Disposition: Discharge to home or self care 11/21/2024 1:20 PM CHANGE MANAGEMENT COORDINATOR Office Visit [facility] [address] [facility] 2nd Floor [address] [place] [phone] Marialuisa Franklin, SAMI Rheumatoid arthritis with negative rheumatoid factor, involving unspecified site (HCC) (Primary Dx); High risk medication use 11/15/2024 10:40 AM CHANGE MANAGEMENT COORDINATOR - 11/15/2024 11:59 PM CHANGE MANAGEMENT COORDINATOR Hospital Encounter [address] [address] High risk medication use Discharge Disposition: Discharge to home or self care 11/15/2024 10:30 AM CHANGE MANAGEMENT COORDINATOR Infusion [facility] [address] [facility] 2nd Floor [address] [place] [phone] Rheumatoid arthritis with negative rheumatoid factor, involving unspecified site (HCC) (Primary Dx) 10/18/2024 10:30 AM CHANGE MANAGEMENT COORDINATOR Infusion [facility] [address] [facility] 2nd Floor [address] [place] [phone] Rheumatoid arthritis with negative rheumatoid factor, involving [...] 1 tablet (2 mg total) by mouth command center analyst before breakfast 4 Active azelastine (ASTELIN) 137 [...] on file Legal Sex Female 10:45 PM CHANGE MANAGEMENT COORDINATOR Gender Identity Not on file Sexual Orientation Not on file Last Filed Vital Signs Vital Sign Reading Time Taken Comments Blood Pressure 93/58 11/21/2024 1:01 PM CHANGE MANAGEMENT COORDINATOR Pulse 63 11/21/2024 1:01 PM CHANGE MANAGEMENT COORDINATOR Temperature 36.6 C (97.8 F) 11/21/2024 1:01 PM CHANGE MANAGEMENT COORDINATOR Respiratory Rate - - Oxygen Saturation 99% 11/21/2024 1:01 PM CHANGE MANAGEMENT COORDINATOR Inhaled Oxygen Concentration - - Weight 68 kg (150 lb) 11/21/2024 1:01 PM CHANGE MANAGEMENT COORDINATOR Height 167.6 cm (5' 5.98 ) 11/21/2024 1:01 PM CS T Body Mass Index 24.22 11/21/2024 1:01 PM CHANGE MANAGEMENT COORDINATOR Plan of Treatment Not on file Procedures Procedure Name Priority Date/Time Associated Diagnosis Comments XR HAND RIGHT 3 OR MORE VIEWS Schedule Routine, Read Routine (OP Routine) 11/21/2024 2:04 PM CHANGE MANAGEMENT COORDINATOR Rheumatoid arthritis with negative rheumatoid factor, involving unspecified site (HCC) XR HAND LEFT 3 OR MORE VIEWS Schedule Routine, Read Routine (OP Routine) 11/21/2024 2:04 PM CHANGE MANAGEMENT COORDINATOR Rheumatoid arthritis with negative rheumatoid factor, involving unspecified site (HCC) XR WRIST RIGHT 3 OR MORE VIEWS Schedule Routine, Read Routine (OP Routine) 11/21/2024 2:04 PM CHANGE MANAGEMENT COORDINATOR Rheumatoid arthritis with negative rheumatoid factor, involving unspecified site (HCC) XR WRIST LEFT 3 OR MORE VIEWS Schedule Routine, Read Routine (OP Routine) 11/21/2024 2:04 PM CHANGE MANAGEMENT COORDINATOR Rheumatoid arthritis with negative rheumatoid factor, involving unspecified site (HCC) EGFR Routine 11/15/2024 1:46 PM CHANGE MANAGEMENT COORDINATOR High risk medication use DIFFERENTIAL AUTO Routine 11/15/2024 1: 46 PM CHANGE MANAGEMENT COORDINATOR High risk medication use COMPREHENSIVE METABOLIC PANEL Routine 11/15/2024 1:46 PM CHANGE MANAGEMENT COORDINATOR High risk medication use CBC WITH AUTO DIFFERENTIAL Routine 11/15/2024 1:46 PM CHANGE MANAGEMENT COORDINATOR High risk medication use TB TEST, QUANTIFERON GOLD Routine 11/07/2024 3:55 PM CHANGE MANAGEMENT COORDINATOR High risk medication use DEXA AXIAL SKELETON [...] 3 or More Views (11/21/2024 2:04 PM CHANGE MANAGEMENT COORDINATOR) Anatomical Region Laterality Modality Upper Extremities, Hand Right Computed Radiography 11/21/2024 2:23 PM CHANGE MANAGEMENT COORDINATOR Addenda Addendum by Pipe Valdivia MD on 11/22/2024 12:50 PM CHANGE MANAGEMENT COORDINATOR ADDENDUM: Progressive polyarticular erosions involving the bilateral hands and wrists, most prominent in the carpus bilaterally. This is consistent with progressive inflammatory arthritis in this patient with known rheumatoid arthritis. Electronically signed by: Pipe Valdivia MD Impressions 11/21/2024 2:23 PM CHANGE MANAGEMENT COORDINATOR 1. Healing fracture of the left 4th metacarpal shaft with shortening and mild ulnar displacement. 2. Polyarticular erosions involving the bilateral hands and wrists, most prominent in the carpus bilaterally. This is consistent with inflammatory arthritis. Statistically, this is most likely due to rheumatoid arthritis. Electronically signed by: Pipe Valdivia MD Narrative 11/21/2024 2:23 PM CHANGE MANAGEMENT COORDINATOR EXAMINATION: XR WRIST LEFT 3 OR MORE [...] 3 or More Views (11/21/2024 2:04 PM CHANGE MANAGEMENT COORDINATOR) Anatomical Region Laterality Modality Upper Extremities, Hand Left Computed Radiography 11/21/2024 2:23 PM CHANGE MANAGEMENT COORDINATOR Addenda Addendum by Pipe Valdivia MD on 11/22/2024 12:50 PM CHANGE MANAGEMENT COORDINATOR ADDENDUM: Progressive polyarticular erosions involving the bilateral hands and wrists, most prominent in the carpus bilaterally. This is consistent with progressive inflammatory arthritis in this patient with known rheumatoid arthritis. Electronically signed by: Pipe Valdivia MD Impressions 11/21/2024 2:23 PM CHANGE MANAGEMENT COORDINATOR 1. Healing fracture of the left 4th metacarpal shaft with shortening and mild ulnar displacement. 2. Polyarticular erosions involving the bilateral hands and wrists, most prominent in the carpus bilaterally. This is consistent with inflammatory arthritis. Statistically, this is most likely due to rheumatoid arthritis. Electronically signed by: Pipe Valdivia MD Narrative 11/21/2024 2:23 PM CHANGE MANAGEMENT COORDINATOR EXAMINATION: XR WRIST LEFT 3 OR MORE [...] 3 or More Views (11/21/2024 2:04 PM CHANGE MANAGEMENT COORDINATOR) Anatomical Region Laterality Modality Upper Extremities, Wrist Right Compute d Radiography 11/21/2024 2:23 PM CHANGE MANAGEMENT COORDINATOR Addenda Addendum by Pipe Valdivia MD on 11/22/2024 12:50 PM CHANGE MANAGEMENT COORDINATOR ADDENDUM: Progressive polyarticular erosions involving the bilateral hands and wrists, most prominent in the carpus bilaterally. This is consistent with progressive inflammatory arthritis in this patient with known rheumatoid arthritis. Electronically signed by: Pipe Valdivia MD Impressions 11/21/2024 2:23 PM CHANGE MANAGEMENT COORDINATOR 1. Healing fracture of the left 4th metacarpal shaft with shortening and mild ulnar displacement. 2. Polyarticular erosions involving the bilateral hands and wrists, most prominent in the carpus bilaterally. This is consistent with inflammatory arthritis. Statistically, this is most likely due to rheumatoid arthritis. Electronically signed by: Pipe Valdivia MD Narrative 11/21/2024 2:23 PM CHANGE MANAGEMENT COORDINATOR EXAMINATION: XR WRIST LEFT 3 OR MORE [...] 3 or More Views (11/21/2024 2:04 PM CHANGE MANAGEMENT COORDINATOR) Anatomical Region Laterality Modality Upper Extremities, Wrist Left Compute d Radiography 11/21/2024 2:23 PM CHANGE MANAGEMENT COORDINATOR Addenda Addendum by Pipe Valdivia MD on 11/22/2024 12:50 PM CHANGE MANAGEMENT COORDINATOR ADDENDUM: Progressive polyarticular erosions involving the bilateral hands and wrists, most prominent in the carpus bilaterally. This is consistent with progressive inflammatory arthritis in this patient with known rheumatoid arthritis. Electronically signed by: Pipe Valdivia MD Impressions 11/21/2024 2:23 PM CHANGE MANAGEMENT COORDINATOR 1. Healing fracture of the left 4th metacarpal shaft with shortening and mild ulnar displacement. 2. Polyarticular erosions involving the bilateral hands and wrists, most prominent in the carpus bilaterally. This is consistent with inflammatory arthritis. Statistically, this is most likely due to rheumatoid arthritis. Electronically signed by: Pipe Valdivia MD Narrative 11/21/2024 2:23 PM CHANGE MANAGEMENT COORDINATOR EXAMINATION: XR WRIST LEFT 3 OR MORE [...] due to rheumatoid arthritis. Electronically signed by: Piep Valdivia MD Marialuisa Franklin NP IMG XR PROCEDURES Edited R esult - Final * eGFR (11/15/2024 1:46 PM CHANGE MANAGEMENT COORDINATOR) eGFR 67 >=60 mL/min/1. 73 m2 Comment: [...] last reviewed 2021. Blood 11/15/2024 1:46 PM CHANGE MANAGEMENT COORDINATOR 11/15/2024 2:48 PM CHANGE MANAGEMENT COORDINATOR us Marialuisa Franklin NP LAB BLOOD ORDERABLES Final Result [facility] [place] [address] * Differential, auto (11/15/2024 1:46 PM CHANGE MANAGEMENT COORDINATOR) Neutrophil abs 3.2 1.5 - 6.5 K/cumm Imm gran abs 0.0 0.0 - 0.1 K/cumm [facility] Lymphocyte abs 1.1 0.8 - 3.3 K/cumm [facility] Monocyte abs 0.6 0.2 - 0.8 K/cumm [facility] Eosinophil abs 0.1 0.0 - 0.5 K/cumm [facility] Basophil abs 0.1 0.0 - 0.1 K/cumm [facility] Neutrophil pct 63.6 % [facility] Comment: Interpretive Data Percent cell count reference ranges are not reported, since discordance with absolute values may lead to misinterpretation of CBC data. Current Interpretive Data was last revised on 2018. Imm gran pct 0.4 % [facility] Comment: Interpretive Data Percent cell count reference ranges are not reported, since discordance with absolute values may lead to misinterpretation of CBC data. Current Interpretive Data was last revised on 2018. Lymphocyte pct 21.4 % [facility] Comment: Interpretive Data Percent cell count reference ranges are not reported, since discordance with absolute values may lead to misinterpretation of CBC data. Current Interpretive Data was last revised on 2018. Monocyte pct 11.4 % [facility] Comment: Interpretive Data Percent cell count reference ranges are not reported, since discordance with absolute values may lead to misinterpretation of CBC data. Current Interpretive Data was last revised on 2018. Eosinophil pct 2.0 % [facility] Comment: Interpretive Data Percent cell count reference ranges are not reported, since discordance with absolute values may lead to misinterpretation of CBC data. Current Interpretive Data was last revised on 2018. Basophil pct 1.2 % [facility] Comment: Interpretive Data Percent cell count reference ranges are not reported, since discordance with absolute values may lead to misinterpretation of CBC data. Current Interpretive Data was last revised on 2018. Blood 11/15/2024 1:46 PM CHANGE MANAGEMENT COORDINATOR 11/15/2024 1:59 PM CHANGE MANAGEMENT COORDINATOR us Marialuisa Franklin SKIN PILER LAB BLOOD ORDERABLES Final Result [facility] Department [place] [address] * CBC with auto differential (11/15/2024 1:46 PM CHANGE MANAGEMENT COORDINATOR) WBC 5.0 3.8 - 9.9 K/cumm Hgb 13.7 11.9 - 15.5 g/dL [facility] Hct 41.1 35.6 - 45.5 % [facility] Plt 256 150 - 400 K/cumm [facility] MPV 11.0 9.1 - 12.3 fL [facility] RBC 4.32 3.90 - 5.20 M/cumm [facility] MCV 95.1 81.3 - 96.4 fL [facility] MCH 31.7 27.1 - 33.3 pg [facility] MCHC 33.3 32.3 - 35.7 g/dL [facility] RDW CV 13.3 11.1 - 14.9 % [facility] RDW SD 47.1 35.7 - 48.1 fL [facility] NRBC abs 0.00 0.00 - 0.01 K/cumm [facility] Blood 11/15/2024 1:46 PM CHANGE MANAGEMENT COORDINATOR 11/15/2024 1:59 PM CHANGE MANAGEMENT COORDINATOR us Marialuisa Franklin SKIN PILER LAB BLOOD ORDERABLES Final Result [facility] [place] [address] * Comprehensive metabolic panel (11/15/2024 1:46 PM CHANGE MANAGEMENT COORDINATOR) Sodium 139 135 - 145 mmol/L Potassium, pl 4.5 3.3 - 4.9 mmol/L [facility] Chloride 103 97 - 110 mmol/L [facility] CO2 26 22 - 32 mmol/L [facility] Anion gap 10 2 - 15 mmol/L [facility] BUN 15 6 - 25 mg/dL [facility] Creatinine 0.92 0.60 - 1.10 mg/dL [facility] Glucose 105 70 - 199 mg/dL [facility] Comment: Interpretive Data Fasting glucose >/= 126 [...] 2022. Calcium 9.5 8.5 - 10.3 mg/dL [facility] Bilirubin, total 0.3 0.1 - 1.2 mg/dL [facility] Protein, pl 7.1 6.5 - 8.5 g/dL [facility] Albumin 4.3 3.5 - 5.0 g/dL [facility] Alk phos 121 40 - 130 Units/L [facility] ALT 19 7 - 45 Units/L [facility] AST 22 10 - 45 Units/L [facility] Blood 11/15/2024 1:46 PM CHANGE MANAGEMENT COORDINATOR 11/15/2024 2:48 PM CHANGE MANAGEMENT COORDINATOR us Marialuisa Franklin SKIN PILER LAB BLOOD ORDERABLES Final Result [facility] [place] [address] * TB test, quantiferon gold (11/07/2024 3:55 PM CHANGE MANAGEMENT COORDINATOR) [facility] QuantiFERON(R)-T B Gold Plus, 1 [...] T-lymphocytes. For additional information, please refer to https://education.[employer].Information Assurance/faq/TZS577 (This link is being provided for informational/ educational purposes only.) Blood 11/07/2024 3:55 PM CHANGE MANAGEMENT COORDINATOR 11/07/2024 3:56 PM CHANGE MANAGEMENT COORDINATOR us Marialuisa Franklin SKIN PILER LAB BLOOD ORDERABLES Final Result [employer] [address] [phone] * Dexa Axial Skeleton Bone Density 1 or 2 Site (03/08/2024 9:24 AM CDT) Anatomical Region Laterality Modality Body N/A Radiographic Erna ging Narrative 03/08/2024 9:48 PM CDT Patient Name: Sheri Shin Date of : 1955 Date of scan: 03/08/2024 Bone mineral density was performed on a [employer] Discovery Densitometer. Based on machine cross-calibration and [...] by the International Society of Clinical Densitometry. [id number] Marialuisa Franklin NP IMG DXA PROCEDURES Final R esult * Hepatitis panel, acute (05/24/2020 9:45 AM CDT) Hep A IgM Nonreactive Nonreactive [facility] Comment: Interpretive Data: If Hep A IgM [...] on 19. Hep C Ab Nonreactive Nonreactive [facility] Comment:Antibodies to HCV no t detected. Does NOT exclude the possibility of recent exposure to HCV. HepBsAg Nonreactive Nonreactive [facility] Blood specimen (specimen) 05/24/2020 9:45 AM CDT 05/24/2020 12:08 PM CDT Marialuisa Franklin NP LAB MICROBIOLOGY - GENERAL ORDERABLES Edited Result - Final [facility] [place] [address] from Last 3 Months or Most Recently Relevant to Health Maintenance Insurance [employer] [facility] [employer] Care Teams Pocket And Pulley Machine Operator Relationship Specialty Start Date End Date Kerry Coffman DO [address] [place] [address] PCP - General Internal Medicine 04/19/24
--- OUTSIDE RECORDS SUMMARY | 2024-12-17 12:38 | XMS_ITS | Continuity of Care Document ---
Author Organization [employer] [facility] Address [address] [place] [address] Phone Care Team Providers Care Product Manager Name Role Phone Sandie Briggs MD Unavailable [...] Encounter [facility], [address], [place], [place], [id number] , [place] tel: [phone] [facility] No Information [address], [place], [place], [address], [place]. [phone] OFFICE/OUTPATI ENT VISIT, EST [facility], [address], [place], [place], [address] , [place] tel: [phone] [facility] medication refill (chief complaint) Bipolar disorderHigh risk medication use 3 No Information [facility], [address], [place], [place], [address] , [place] tel: [phone] [facility] Dental examination 2 No Information OFFICE OUTPT EST 25 MIN [facility], [address], [place], [place], [address] , [place] tel: [phone] [facility] referrals (chief complaint)b ipolar disorder (chief complaint) Bipolar disorderAlcohol abuseRoutine adult health maintenanceNeed for prophylactic vaccination and inoculation against Streptococcus pneumoniae [pneumococcus]C ommon wart 2 No Information OFFICE/OUTPATI ENT VISIT, EST [facility], [address], [place], [place], [address] , [place] tel: [phone] [facility] test results (chief complaint) Genital herpes, unspecifiedBeni gn neoplasm of vulvaNeed for prophylactic vaccination and inoculation, influenza 2 No Information [facility], [address], [place], [place], [address] , [place] tel: [phone] [facility] Dental examination 2 No Information OFFICE/OUTPATI ENT VISIT, EST [facility], [address], [place], [place], [address] , [place] tel: [phone] [facility] irritated spot on vulva (chief complaint) Benign neoplasm of vulva 2 No Information 1ST COMPRE PREV MED E/M NEW PT 40-64 [facility], [address], [place], [place], [address] , [place] tel: [phone] [facility] annual visit (chief complaint) Routine gynecological examination 2 No Information [facility], [address], [place], [place], [address] , [place] tel: [phone] [facility] No Information 1 No Information OFFICE OUTPT EST 25 MIN [facility], [address], [place], [place], [address] , [place] tel: [phone] [facility] pain (chief complaint)E R f/u (chief complaint) Other and unspecified alcohol dependence, continuous drinking behavior 1 No Information ENVIRONMENTAL IVNTJ MGMT PURPOSES PSYC PT [facility], [address], [place], [place], [address] , [place] tel: [phone] [facility] No Information 0 No Information FAMILY PSYCHOTHERAPY (CONJOINT PSYCHOTHERAPY) (WITH PATIENT PRESENT) [facility], [address], [place], [place], [address] , [place] tel: [phone] [facility] substance abuse (chief complaint) No Information 0 No Information OFFICE/OUTPATI ENT VISIT, EST [facility], [address], [place], [place], [address] , [place] tel: [phone] [facility] alcohol (chief complaint) Other and unspecified alcohol dependence, continuous drinking behavior 0 No Information OFFICE/OUTPATI ENT VISIT, EST [facility], [address], [place], [place], [address] , [place] tel: [phone] [facility] dizziness (chief complaint)a lcohol abuse (chief complaint) Other and unspecified alcohol dependence, continuous drinking behaviorDizzine ss and giddiness 0 No Information [facility], [address], [place], [place], [address] , [place] tel: [phone] [facility] depression (chief complaint) Major depressive affective disorder, recurrent episode, moderate degreeOther and unspecified alcohol dependence, continuous drinking behaviorUnspeci fied personality disorder 0 No Information OFFICE/OUTPATI ENT VISIT, NEW [facility], [address], [place], [place], [address] , [place] tel: [phone] [facility] REFERRED BY [facility] (chief complaint)M EDICATION NEEDED (chief complaint) Issue of repeat prescriptions 0 Juan Pablo [facility] [address], [place], [place], [address], [place]. [phone] [facility], [address], [place], [place], [address] , [place] tel: [phone] Care Guidelines Aly-0 1-190 1 No Information [...] Record Payers Payer name Insurance type Covered libertarian ID Authoriza tion(s) No Information Social History [...] Referred To: Josse Carrillo MD [address] [place], [place], [phone] Ordered: Referral: Josse Carrillo MD. Psychiatry. Evaluate and treat. ordered Referral Referred To: [facility] Ordered: Referral: [facility]. Psychiatry. Evaluate and treat. ordered Referral Referred To: [facility] [address], [place], [phone] Ordered: Referral: [facility] [place]. Radiology. Diagnostic testing. Appointment date/timeframe: 04/12/2012 ordered Referral Referred To: Anupam Sher MD [address] [place], [place], [phone] Ordered: Referral: Anupam Sher MD. Psychiatry. Appointment [...]
--- OUTSIDE RECORDS SUMMARY | 2024-12-17 12:38 | XMS_ITS | Clinical Summary ---
Author Organization [facility] Address [address] [place] [address] Phone Care Team Providers Care Radio Message Router Name Role Phone Joan Robins MD Primary [...] on file Legal Sex Female 10:36 AM SUPPLY CHAIN ENGINEER Gender Identity Not on file Sexual Orientation Not on file Last Filed Vital Signs Vital Sign Reading Time Taken Comments Blood Pressure 125/81 10/21/2018 12:15 PM SUPPLY CHAIN ENGINEER Pulse 72 10/21/2018 12:25 PM SUPPLY CHAIN ENGINEER Temperature 36.3 C (97.3 F) 10/21/2018 11:32 AM SUPPLY CHAIN ENGINEER Respiratory Rate 18 10/21/2018 12:25 PM SUPPLY CHAIN ENGINEER Oxygen Saturation 99% 10/21/2018 12:25 PM SUPPLY CHAIN ENGINEER Inhaled Oxygen Concentration - - Weight 60.3 kg (133 lb) 10/21/2018 11:32 AM SUPPLY CHAIN ENGINEER Height 170.2 cm (5' 7 ) 10/21/2018 11:32 AM SUPPLY CHAIN ENGINEER Body Mass Index 20.83 10/21/2018 11:32 AM SUPPLY CHAIN ENGINEER Plan of Treatment Health Maintenance Due Date [...] age to complete this topic Insurance MEDICAID [facility] Care Teams Radio Message Router Relationship Specialty Start Date End Date Joan Robins MD [address] [id number] PCP - General Internal Medicine 10/21/18
--- OUTSIDE RECORDS SUMMARY | 2024-12-17 12:38 | XMS_ITS | Encounter Summary ---
Author Organization [facility] Address [address] [place] [address] Care Team Providers Care Preschool Director Name Role Phone Joan Robins MD Primary Care Provider Kerry Coffman DO Primary Care Provider [phone] Encounter Details Date Type Department Care Team (Late st Contact Info) Description 12/18/2021 Telephone [facility] [address] [place] [address] Rissa Vo MD Social History Tobacco Use Types Packs/Day Years Used Date Smoking Tobacco: Former Smokeless Tobacco: Never Alcohol Use Standard Drinks/Week Comments Never 0 (1 standard drink = 0.6 oz pur e alcohol) Sex and Gender Information Value Date Recorded Sex Assigned at Female 09/16/2024 2:41 PM SALES SERVICE ROUTE MANAGER Gender Identity Female 09/16/2024 2:41 PM SALES SERVICE ROUTE MANAGER Sexual Orientation Straight 09/16/2024 2: 41 PM SALES SERVICE ROUTE MANAGER COVID-19 Exposure Response Date Recorded In the last month, have you been in contact with someone who was confirmed or suspected to have Coronavirus / COVID-19? No / Unsure 12/19/2021 5:58 AM SALES SERVICE ROUTE MANAGER documented as of this encounter Patient Instructions * Patient Instructions* Donny Elliott - 12/18/2021 6:58 AM SALES SERVICE ROUTE MANAGER Pt was bumped from 03/17/2022 DBN appt. [facility] does not schedule for these appt types. Please reschedule from the bump list. S SERVICE ROUTE MANAGER documented in this encounter Plan of Treatment Upcoming Encounters Date Type Department Care Team (Late st Contact Info) Description 01/04/2025 9:15 AM CDT Office Visit [facility] - Orthopedics [address] [place] [phone] Cornelio Lima MD [address] [place] [address] 01/25/2025 10:30 AM CDT Office Visit [facility] - GI [address] [place] [phone] Yolanda Greer, COLOR PRINTER OPERATOR-MOTOR ASSEMBLER [address] [place] [phone] 02/09/2025 11:15 AM CDT Office Visit [facility] - Ophthalmology [address] [place] [phone] Percy Matute MD [address] [place] [address] [place] [phone] 02/09/2025 4:00 PM CDT Office Visit [facility] - Allergy [address] [place] [phone] Papito Morales MD [address] [place] [address] 2L DIV OF ALLERGY/[place] [address] 03/02/2025 1:00 PM CDT Office Visit [facility] - Neurology [address] [place] [phone] Moncho Salcedo, COLOR PRINTER OPERATOR-MOTOR ASSEMBLER [address] [place] [address] 1[address] [place] [phone] 03/20/2025 11:00 AM CDT Office Visit [facility] - Internal Med [address] [place] [address], [place] [phone] Kerry Coffman DO [address] [place] [address] 2L DIV [place] [address] 04/13/2025 3:00 PM CDT Office Visit [facility] - Allergy [address] [place] [address], [place] [phone] Papito Morales MD [address] [place] [address] 2[address] DIV OF ALLERGY/[place] [address] documented as of this encounter Visit Diagnoses Not on filedocumented in this encounter Additional Health Concerns Infection Onset Date Last Indicated Resolved Time CDIFF Under Investigation 07/20/2024 07/20/2024 4:33 AM CDT CDIFF Under Investigation 10/26/2024 11/07/2024 4:33 AM SALES SERVICE ROUTE MANAGER CDIFF Under Investigation 11/07/2024 11/07/2024 5:38 PM SALES SERVICE ROUTE MANAGER documented as of this encounter Care Teams Preschool Director Relationship Specialty Start Date End Date Joan Robins MD [address] [place], [place] [phone] PCP - General 02/14/19 12/14/23 Kerry Coffman DO [address] [place] [address] 2L [place] [address] PCP - General Internal Medicine 12/15/23 documented as of this encounter
--- OUTSIDE RECORDS SUMMARY | 2024-12-17 12:38 | XMS_ITS | Patient Health Summary ---
Author Organization [facility] Address [address] [place] [address] Care Team Providers Care Packing House Laborer Name Role Phone Kerry Coffman DO Primary Care Provider [phone] Note from [facility],non-owned Affiliates and Associated Physician Practices is amultiple site organization consisting of ambulatory clinics and hospital sitesin [place], [place], [place] and [place]. This disclosure is being madepursuant to the Care Everywhere program and may not contain all information available regarding this patient. Last updated 18.[facility] Allergies * Penicillins(Anaphylaxis) -High Criticality * Sulfa [...] route every 30 days * blood glucose (Planex Ultra) test strip(Started 07/27/2024) USE 1 STRIP [...] propionate (Flonase) 50 MCG/ACT nasal spray(Started 08/11/2024) Wilton 2 (two) sprays into each nostril once daily 6 refills by 08/11/2025 * azelastine (Astelin) 0.1 % nasal spray(Started 08/11/2024) [place] 1 (one) spray into each nostril 2 [...] 30 days 11 refills by 11/02/2025 * ahfvzkbled-zckagnnfppxrv-eliamaqj (Fioricet) 50-300-40 MG capsule(Started 11/02/2024) Take 1 [...] Sex Assigned at Female 09/16/2024 2:41 PM OPEN SOAPER TENDER Gender Identity Female 09/16/2024 2:41 PM OPEN SOAPER TENDER Sexual Orientation Straight 09/16/2024 2: 41 PM OPEN SOAPER TENDER Last Filed Vital Signs Vital Sign Reading Time Taken Comments Blood Pressure 114/82 12/08/2024 12:30 PM OPEN SOAPER TENDER Pulse 59 12/08/2024 12:30 PM OPEN SOAPER TENDER Temperature 36.6 C (97.8 F) 12/08/2024 10:30 AM OPEN SOAPER TENDER Respiratory Rate 14 12/08/2024 12:30 PM OPEN SOAPER TENDER Oxygen Saturation 96% 12/08/2024 12:30 PM OPEN SOAPER TENDER Inhaled Oxygen Concentration - - Weight 66.9 kg (147 lb 8 oz) 12/08/2024 8:01 AM OPEN SOAPER TENDER Height 167.6 cm (5' 6 ) 12/08/2024 8:01 AM OPEN SOAPER TENDER Body Mass Index 23.81 12/08/2024 8:01 AM OPEN SOAPER TENDER Medical Devices Implanted Type Area Law Researcher Device Identifier Shelf Expiration Date Model / Serial / Lot Slnt Dura Duraseal Pg Trilysine Amine 5 Implanted:Qty: 1 on 03/17/2022 by Jackelyn Yang MD at [facility] Left: Cranial [employer] 08/11/2023 [id number] / / [id number] Guardian Branial [place] Cover Sys Implanted:Qty: 1 on 03/17/2022 by Jackelyn Yang MD at [facility] Left: Cranial [employer] 01/01/2024 6010 / / [id number] Directional Lead Implanted:Qty: 1 on 03/17/2022 by Shailesh North MD at [facility] Left: Cranial [employer] 09/25/2023 6172 / [id number] / Lead Extension Implanted:Qty: 1 on 03/24/2022 by Shailesh North MD at [facility] Left: Neck [employer] 01/15/2024 6371ANS / / [id number] Generator Implanted:Qty: 1 on 03/24/2022 by Shailesh North MD at [facility] Left: Chest [employer] 11/19/2023 6662 / / [id number] [place] Spnl 140mm 6.35mm Ti Str Implanted:Qty: 1 on 08/29/2022 by Shailesh North MD at [facility] Right: Scalp [employer] 04/02/2024 6010 / / [employer] Inf[employer] Dbs System Implanted:Qty: 1 on 08/29/2022 by Joshua Gill MD at [facility] Right: Brain 03/19/2024 6172 / [id number] / Description:cost per Silva [employer] Dbs System Implanted:Qty: 1 on 08/29/2022 by Joshua Gill MD at [facility] Right: Chest Wall 04/23/2024 6373 / [id number] / Description:cost per silva Procedures * [place] [...] Performed for Screen for colon cancer * [place] COLOREC CANC SCRN,SCOPY NOT HI RISK(Performed 11/11/2024) [...] Chronic diarrhea, PUD (peptic ulcer disease) * IL COLOREC CANC SCRN,SCOPY NOT HI RISK(Performed 07/29/2024) Performed for Chronic diarrhea, PUD (peptic ulcer disease) * [place] ED EGD FLEX TRANSORAL DX(Performed 07/29/2024) Performed [...] without long-term current use of insulin([facility]) * IL ANALYS BRN NPGT PRGRMG ADDL 15(Performed 01/13/2024) Performed for Tremor, essential * IL ANALYS BRN NPGT PRGRMG 15 MIN(Performed 01/13/2024) Performed for Tremor, essential * IL ANALYS BRN NPGT PRGRMG ADDL 15(Performed 12/11/2023) Performed for Tremor * IL ANALYS BRN NPGT PRGRMG 15 MIN(Performed 12/11/2023) Performed for Tremor * [place] ANALYS BRN NPGT PRGRMG ADDL 15(Performed 08/05/2023) Performed for Benign essential tremor * [place] ANALYS BRN NPGT PRGRMG 15 MIN(Performed 08/05/2023) Performed for Benign essential tremor * IL ANALYS BRN NPGT PRGRMG 15 MIN(Performed 03/05/2023) Performed for Benign essential tremor * [place] ANALYS BRN NPGT PRGRMG ADDL 15(Performed 03/05/2023) Performed for Benign essential tremor * VITAMIN D 25-HYDROXY(Performed 02/05/2023) * BASIC METABOLIC PANEL (CALCIUM TOTAL)(Performed 02/05/2023) * CALCIUM URINE RANDOM(Performed 02/05/2023) * MICROALB/CREAT RATIO URINE RANDOM PANEL(Performed 02/05/2023) * HEMOGLOBIN A1C - POINT OF CARE (AMB) SLU(Performed 12/08/2022) Performed for Type 2 diabetes mellitus with hyperglycemia, without long-term current use of insulin([facility]) * IL ANALYS BRN NPGT PRGRMG ADDL 15(Performed 12/07/2022) Performed for Benign essential tremor * IL ANALYS BRN NPGT PRGRMG 15 MIN(Performed 12/07/2022) Performed for Benign essential tremor * IL ANALYS BRN NPGT PRGRMG ADDL 15(Performed 10/29/2022) Performed for Benign essential tremor * IL ANALYS BRN NPGT PRGRMG 15 MIN(Performed 10/29/2022) Performed for Benign essential tremor * IL ANALYS BRN NPGT PRGRMG ADDL 15(Performed 10/01/2022) Performed for Benign essential tremor * IL ANALYS BRN NPGT PRGRMG ADDL 15(Performed 10/01/2022) Performed for Benign essential tremor * IL ANALYS BRN NPGT PRGRMG 15 MIN(Performed 10/01/2022) [...] 08/06/2022) Performed for Subjective memory complaints * IL ANALYS BRN NPGT PRGRMG 15 MIN(Performed 06/17/2022) Performed for Benign essential tremor * IL ANALYS BRN NPGT PRGRMG ADDL 15(Performed 04/17/2022) Performed for Benign essential tremor * IL ANALYS BRN NPGT PRGRMG ADDL 15(Performed 04/17/2022) Performed for Benign essential tremor * IL ANALYS BRN NPGT PRGRMG 15 MIN(Performed 04/17/2022) [...] 2 or More Regions (12/08/2024 10:27 AM OPEN SOAPER TENDER) Anatomical Region Laterality Modality Spine Digital Radiogra phy 12/08/2024 1:17 PM OPEN SOAPER TENDER Impressions 12/13/2024 12:15 PM OPEN SOAPER TENDER IMPRESSION: 1.Successful lumbar puncture for cervical and [...] degenerative disc and joint disease as detailed aovof-gq-fnnju above, worse at L4-L5, as outlined. 2.Transitional anatomy as noted above. The report is dictated by Addi Arambula MD, (residential supervisor) Attending Physician: Dr. Magdalena Blackmon Fishing Lure Assembler: Dr. Addi Arambula MD, (residential supervisor) The procedure was performed by the: The assistant track coach, and the attending radiologist was present for [...] 12/13/2024 12:15 PM Narrative 12/13/2024 12:15 PM OPEN SOAPER TENDER PROCEDURE: FL MYELOGRAM 2 OR MORE REGIONS, CT LUMBAR POST MYELOGRAM, CT CERVICAL POST MYELOGRAM DATE/TIME OF EXAM: 12/08/2024 10:34 AM CLINICAL INFORMATION: PROCEDURE: FL MYELOGRAM 2 OR MORE REGIONS, CT LUMBAR POST MYELOGRAM, CT CERVICAL POST MYELOGRAM, DATE/TIME OF EXAM: 12/08/2024 10:34 AM, LOCATION [facility] INDICATION: M54.50: Lumbar spine pain ADDITIONAL CLINICAL INFORMATION: Ordering Provider Reason For Exam: myelopathy (accession [id number]), chronic low back pain (accession [id number]) Technologist Note: None. Additional: None. EXAMINATION: 1.Lumbar [...] The patient was then transferred to the respite care provider unit for further observation and 2 hours [...] no high-grade central canal stenosis. There is tuuc-rf-mkfozjmy facet osteoarthritis. There is mild bilateral neural foraminal stenosis. Procedure Note Magdalena Blackmon MD - 12/13/2024 PROCEDURE: FL MYELOGRAM 2 OR MORE REGIONS, CT LUMBAR POST MYELOGRAM, CT CERVICAL POST MYELOGRAM DATE/TIME OF EXAM: 12/08/2024 10:34 AM CLINICAL INFORMATION: PROCEDURE: FL MYELOGRAM 2 OR MORE REGIONS, CTLUMBAR POST MYELOGRAM, CT CERVICAL POST MYELOGRAM, DATE/TIME OF EXAM:12/08/2024 10:34 AM, LOCATION [facility] INDICATION: M54.50: Lumbar spine pain ADDITIONAL CLINICAL INFORMATION: Ordering Provider Reason For Exam: myelopathy (accession [id number]), chronic low back pain (accession [id number]) Technologist Note: None. Additional: None. EXAMINATION: 1.Lumbar [...] well. The patient wasthen transferred to the respite care provider unit for further observation and 2hours of [...] island in the right aspect of the E8rwynlkarj body. Vertebral bodies are normal in height [...] is no high-grade central canal stenosis. Thereis rowo-cw-udslujew facet osteoarthritis. There is mild bilateral neural [...] 1.Multilevel degenerative disc and joint disease as xvesoaailtjod-li-emdvb above, worse at L4-L5, as outlined. 2.Transitional anatomy as noted above. The report is dictated by Addi Arambula MD, (residential supervisor) Attending Physician: Dr. Magdalena Blackmon Fishing Lure Assembler: Dr. Addi Arambula MD, (residential supervisor) The procedure was performed by the: The assistant track coach, and the attending radiologist was present for allcritical and mariscal portions of the procedure, and was immediately [facility] during the entire procedure. The attending radiologist performed the following procedural activities: Dr. Magdalena Gutierrez was there and supervised mariscal portions of the procedure, not scrubbed. Magdalena Gutierrez MD have personally reviewed and interpretedthis examination/study. > Interpreting Provider: Magdalena Blackmon MD on 12/13/2024 12:15 PM Cornelio Lima MD FLUOROSCOPY OR DERABLES * CT Lumbar Post Myelogram (12/08/2024 10:25 AM OPEN SOAPER TENDER) Anatomical Region Laterality Modality Spine Computed Tomogra phy 12/08/2024 1:17 PM OPEN SOAPER TENDER Impressions 12/13/2024 12:15 PM OPEN SOAPER TENDER IMPRESSION: 1.Successful lumbar puncture for cervical and [...] degenerative disc and joint disease as detailed hvkzr-jb-ubqdc above, worse at L4-L5, as outlined. 2.Transitional anatomy as noted above. The report is dictated by Addi Arambula MD, (residential supervisor) Attending Physician: Dr. Magdalena Blackmon Fishing Lure Assembler: Dr. Addi Arambula MD, (residential supervisor) The procedure was performed by the: The assistant track coach, and the attending radiologist was present for [...] 12/13/2024 12:15 PM Narrative 12/13/2024 12:15 PM OPEN SOAPER TENDER PROCEDURE: FL MYELOGRAM 2 OR MORE REGIONS, CT LUMBAR POST MYELOGRAM, CT CERVICAL POST MYELOGRAM DATE/TIME OF EXAM: 12/08/2024 10:34 AM CLINICAL INFORMATION: PROCEDURE: FL MYELOGRAM 2 OR MORE REGIONS, CT LUMBAR POST MYELOGRAM, CT CERVICAL POST MYELOGRAM, DATE/TIME OF EXAM: 12/08/2024 10:34 AM, LOCATION [facility] INDICATION: M54.50: Lumbar spine pain ADDITIONAL CLINICAL INFORMATION: Ordering Provider Reason For Exam: myelopathy (accession [id number]), chronic low back pain (accession [id number]) Technologist Note: None. Additional: None. EXAMINATION: 1.Lumbar [...] The patient was then transferred to the respite care provider unit for further observation and 2 hours [...] no high-grade central canal stenosis. There is sbgh-ww-ndsrvquk facet osteoarthritis. There is mild bilateral neural foraminal stenosis. Procedure Note Magdalena Blackmon MD - 12/13/2024 PROCEDURE: FL MYELOGRAM 2 OR MORE REGIONS, CT LUMBAR POST MYELOGRAM, CT CERVICAL POST MYELOGRAM DATE/TIME OF EXAM: 12/08/2024 10:34 AM CLINICAL INFORMATION: PROCEDURE: FL MYELOGRAM 2 OR MORE REGIONS, CTLUMBAR POST MYELOGRAM, CT CERVICAL POST MYELOGRAM, DATE/TIME OF EXAM:12/08/2024 10:34 AM, LOCATION [facility] INDICATION: M54.50: Lumbar spine pain ADDITIONAL CLINICAL INFORMATION: Ordering Provider Reason For Exam: myelopathy (accession [id number]), chronic low back pain (accession [id number]) Technologist Note: None. Additional: None. EXAMINATION: 1.Lumbar [...] well. The patient wasthen transferred to the respite care provider unit for further observation and 2hours of [...] island in the right aspect of the F9beslovwgz body. Vertebral bodies are normal in height [...] is no high-grade central canal stenosis. Thereis wxgv-sd-vtykttag facet osteoarthritis. There is mild bilateral neural [...] 1.Multilevel degenerative disc and joint disease as lmhamupajstkj-xn-mwxmf above, worse at L4-L5, as outlined. 2.Transitional anatomy as noted above. The report is dictated by Addi Arambula MD, (residential supervisor) Attending Physician: Dr. Magdalena Blackmon Fishing Lure Assembler: Dr. Addi Arambula MD, (residential supervisor) The procedure was performed by the: The assistant track coach, and the attending radiologist was present for [...] CT Cervical Post Myelogram (12/08/2024 10:25 AM OPEN SOAPER TENDER) Anatomical Region Laterality Modality Spine Computed Tomogra phy 12/08/2024 1:17 PM OPEN SOAPER TENDER Impressions 12/13/2024 12:15 PM OPEN SOAPER TENDER IMPRESSION: 1.Successful lumbar puncture for cervical and [...] degenerative disc and joint disease as detailed qjbbv-iv-iqdsw above, worse at L4-L5, as outlined. 2.Transitional anatomy as noted above. The report is dictated by Addi Arambula MD, (residential supervisor) Attending Physician: Dr. Magdalena Blackmon Fishing Lure Assembler: Dr. Addi Arambula MD, (residential supervisor) The procedure was performed by the: The assistant track coach, and the attending radiologist was present for [...] 12/13/2024 12:15 PM Narrative 12/13/2024 12:15 PM OPEN SOAPER TENDER PROCEDURE: FL MYELOGRAM 2 OR MORE REGIONS, CT LUMBAR POST MYELOGRAM, CT CERVICAL POST MYELOGRAM DATE/TIME OF EXAM: 12/08/2024 10:34 AM CLINICAL INFORMATION: PROCEDURE: FL MYELOGRAM 2 OR MORE REGIONS, CT LUMBAR POST MYELOGRAM, CT CERVICAL POST MYELOGRAM, DATE/TIME OF EXAM: 12/08/2024 10:34 AM, LOCATION [facility] INDICATION: M54.50: Lumbar spine pain ADDITIONAL CLINICAL INFORMATION: Ordering Provider Reason For Exam: myelopathy (accession [id number]), chronic low back pain (accession [id number]) Technologist Note: None. Additional: None. EXAMINATION: 1.Lumbar [...] The patient was then transferred to the respite care provider unit for further observation and 2 hours [...] no high-grade central canal stenosis. There is xzkh-et-rjeybqdg facet osteoarthritis. There is mild bilateral neural foraminal stenosis. Procedure Note Magdalena Blackmon MD - 12/13/2024 PROCEDURE: FL MYELOGRAM 2 OR MORE REGIONS, CT LUMBAR POST MYELOGRAM, CT CERVICAL POST MYELOGRAM DATE/TIME OF EXAM: 12/08/2024 10:34 AM CLINICAL INFORMATION: PROCEDURE: FL MYELOGRAM 2 OR MORE REGIONS, CTLUMBAR POST MYELOGRAM, CT CERVICAL POST MYELOGRAM, DATE/TIME OF EXAM:12/08/2024 10:34 AM, LOCATION [facility] INDICATION: M54.50: Lumbar spine pain ADDITIONAL CLINICAL INFORMATION: Ordering Provider Reason For Exam: myelopathy (accession [id number]), chronic low back pain (accession [id number]) Technologist Note: None. Additional: None. EXAMINATION: 1.Lumbar [...] well. The patient wasthen transferred to the respite care provider unit for further observation and 2hours of [...] island in the right aspect of the J7cnxpjzxan body. Vertebral bodies are normal in height [...] is no high-grade central canal stenosis. Thereis wczq-jj-shzdtxwz facet osteoarthritis. There is mild bilateral neural [...] 1.Multilevel degenerative disc and joint disease as zrofelorfzgnb-zb-oobmo above, worse at L4-L5, as outlined. 2.Transitional anatomy as noted above. The report is dictated by Addi Arambula MD, (residential supervisor) Attending Physician: Dr. Magdalena Blackmon Fishing Lure Assembler: Dr. Addi Arambula MD, (residential supervisor) The procedure was performed by the: The assistant track coach, and the attending radiologist was present for [...] Entire 2 or 3Vw (11/23/2024 11:09 AM OPEN SOAPER TENDER) Anatomical Region Laterality Modality Spine Radiographic Josephine ging 11/23/2024 11:3 1 AM OPEN SOAPER TENDER Impressions 11/23/2024 11:34 AM OPEN SOAPER TENDER IMPRESSION: Mild scoliosis. > Interpreting Provider: Baljinder Dunbar MD on 11/23/2024 11:34 AM Narrative 11/23/2024 11:34 AM OPEN SOAPER TENDER PROCEDURE: XR SPINE ENTIRE 2 OR 3VW [...] 10 degrees, a lower thoracic levo curve asjresdet92 degrees, and a lumbar dextro curve measuring [...] Spine 2 or 3Vw (11/23/2024 11:06 AM OPEN SOAPER TENDER) Anatomical Region Laterality Modality Spine Radiographic Josephine ging 11/23/2024 11:2 9 AM OPEN SOAPER TENDER Impressions 11/23/2024 11:31 AM OPEN SOAPER TENDER IMPRESSION: Moderate cervical spondylosis. > Interpreting Provider: Baljinder Dunbar MD on 11/23/2024 11:31 AM Narrative 11/23/2024 11:31 AM OPEN SOAPER TENDER PROCEDURE: XR CERVICAL SPINE 2 OR 3VW [...] Spine 2 or 3Vw (11/23/2024 10:00 AM OPEN SOAPER TENDER) Anatomical Region Laterality Modality Spine Computed Radiogr aphy 11/23/2024 10:3 8 AM OPEN SOAPER TENDER Impressions 11/23/2024 10:39 AM OPEN SOAPER TENDER IMPRESSION: Mild to moderate degenerative changes. > Interpreting Provider: Baljinder Dunbar MD on 11/23/2024 10:39 AM Narrative 11/23/2024 10:39 AM OPEN SOAPER TENDER PROCEDURE: XR LUMBAR SPINE 2 OR 3VW [...] ORDERABLES * PATHOLOGY TISSUE (11/11/2024 10:16 AM OPEN SOAPER TENDER) Only the most recent of2 resultswithin the time period is included. Case Report Surgical Pathology Report Case: [id number] Authorizing Provider: Sixto Cornell MD Collected: 11/11/2024 10:16 AM Ordering Location: [facility] Received: 11/11/2024 10:58 AM Pathologist: Kenyatta Norris MD Specimens: A) - Polyp Ascending, ascending colon polyp B) - Polyp Descending, descending colon polyps 11/14/2024 3:20 PM [facility] Final Diagnosis Large intestine, ascending colon polyp, biopsy (A): - Tubular adenoma Large intestine, descending colon polyps, biopsy (B): - Tubular adenoma(s), fragmented 11/14/2024 3:20 PM [facility] Microscopic Description and Comment Microscopic examination substantiates the final diagnosis. 11/14/2024 3:20 PM [facility] Clinical History The patient is a 69-year-old woman who presents for high risk colon cancer surveillance (personal history of colonic polyps). Operative procedure/findings: Colonoscopy - 2 mm ascending colon polyp, 4 and 5 mm descending colon polyps, resected and retrieved 11/14/2024 3:20 PM [facility] Gross Description The requisition and [...] cassette labeled B1. RB 11/14/2024 3:20 PM [facility] Pathologist Location at [facility] 11/14/2024 3:20 PM [facility] Disclaimer The performance characteristics of all immunohistochemical and indirect immunofluorescence stains (if any) cited in this report were determined by the Histopathology Laboratory of [facility]. Some of these tests were developed by [...] the attending (teaching) pathologist. 11/14/2024 3:20 PM [facility] Embedded Images 11/14/2024 3:20 PM [facility] Biopsy, NOS POLYP / Unknown 11/11/2024 1 0:16 AM OPEN SOAPER TENDER 11/11/2024 10:58 AM OPEN SOAPER TENDER Comment:Pre-op diagnosis: Screen for colon cancer [Z12.11] Biopsy, NOS POLYP / Unknown 11/11/2024 1 0:19 AM OPEN SOAPER TENDER 11/11/2024 10:58 AM OPEN SOAPER TENDER Comment:Pre-op diagnosis: Screen for colon cancer [Z12.11] Sixto Cornell MD LAB - PATHOLOGY/CYTO LOGY ORDERABLES Performing Organization Address City/State/[facility] Phone Number [facility] [address] [phone] * ENDOSCOPY, COLON, SCREENING (11/11/2024 9:52 AM OPEN SOAPER TENDER) Report Endoscopy POC Endoscopy Department Report _ [...] bowel preparation was evaluated using the BBPS (Gould Bowel Preparation Scale) with scores of: Right [...] non-mariscal portions. Procedure Code(s): --- Professional --- 03453, Colonoscopy, flexible; with removal of tumor(s), polyp(s), or other lesion(s) by snare technique 88982, 59, Colonoscopy, flexible; with biopsy, single or multiple Diagnosis Code(s): --- Professional --- Z86.010, Personal history of colonic polyps D12.2, Benign neoplasm of ascending colon D12.4, Benign neoplasm of descending colon K57.30, Diverticulosis of large intestine without perforation or abscess without bleeding CPT copyright 2021 [employer]. All rights reserved. The codes documented in this report are preliminary and upon supervisor mechanic boilermaking review may be revised to meet current compliance requirements. Sixto Cornell MD 11/11/2024 10:36:45 AM This report has been signed electronically. Note Initiated On: 11/11/2024 9:52 AM Number of Addenda: [address] [place] [address] [facility] 11/11/2024 9:52 AM OPEN SOAPER TENDER Sixto Cornell MD GI PROCEDURE ORDERAB LES Performing Organization Address City/[facility] Co de Phone Number [facility] * GLUCOSE - POINT OF CARE (11/11/2024 9:19 AM OPEN SOAPER TENDER) Only the most recent of16 resultswithin the time period is included. Pathologist [facility] Glucose WB/POC 99 70 - 99 mg/dL 11/11/2024 9:54 AM OPEN SOAPER TENDER [facility] Specimen Type Venous 11/11/2024 9:54 AM OPEN SOAPER TENDER [facility] Blood BLOOD SPECIMEN / Unknown 11/11/2024 9:19 AM OPEN SOAPER TENDER 11/11/2024 9:54 AM OPEN SOAPER TENDER Sixto Cornell MD LAB - POINT OF CARE ORDERABLES Performing Organization Address [facility] Co de Phone Number [facility] [address] [place] [address], [facility] [phone] * CALPROTECTIN FECAL (11/07/2024 3:52 PM OPEN SOAPER TENDER) Pathologist [facility] Calprotectin Fecal 69 mcg/g [facility] Comment: Reference [...] suggested for borderline values. Test Performed at: [employer]/[facility] [id number] [place] [address] JARRELL CALDERON MD,PHD,EDGARDO Stool STOOL SPECIMEN / Unknown 11/07/2024 3:52 PM OPEN SOAPER TENDER 11/08/2024 4:47 AM OPEN SOAPER TENDER Yolanda Greer SENIOR SALES ENGINEER-SCRUB WHEEL OPERATOR LAB - CRISTINA DY FLUID ORDERABLES Performing Organization Address [facility] Co de Phone Number [address] [address] * CULTURE STOOL PANEL (11/07/2024 3:52 PM OPEN SOAPER TENDER) Campylobacter Antigen [facility] Comment: CAMPYLOBACTER SPP. AG,EIA Micro Number: [id number] Test Status: Final Specimen Source: Stool Specimen Quality: Adequate Campy Ag Result: Not Detected Reference Range: Not Detected EIA [facility] Comment: SHIGA TOXINS, EIA W/RFL TO E.COLI O157 CULTURE Micro Number: [id number] Test Status: Final Specimen Source: Stool Specimen Quality: Adequate Shiga Toxin: Not Detected Reference Range: Not Detected Culture [facility] Comment: SALMONELLA AND SHIGELLA, CULTURE Micro Number: [id number] Test Status: Final Specimen Source: Stool Specimen Quality: Adequate Result: No Salmonella or Shigella isolated Test Performed at: [employer] [facility] [address] SAROJ FAUSTIN MD Stool STOOL SPECIMEN / Unknown 11/07/2024 3:52 PM OPEN SOAPER TENDER 11/07/2024 11:51 PM OPEN SOAPER TENDER Yolanda Greer SENIOR SALES ENGINEER-SCRUB WHEEL OPERATOR LAB - PA CROBIOLOGY ORDERABLES Performing Organization Address [facility] de Phone Number [address] [address] * C DIFFICILE CYTOTOXIN (11/07/2024 3:51 PM OPEN SOAPER TENDER) Cytotoxin Assay Stool NOT DETECTED [facility] Comment: [...] (GDH) with Reflex to PCR, order code [id number] or Clostridium difficile toxin B, Qualitative real time PCR, test code 21260 to be more sensitive and timely methods for the diagnosis of C. difficile colitis. For additional information, please refer to http://education.On The Bill/faq/ART889 (This link is being provided for informational/ educational purposes only.) Test Performed at: [facility] [address] [address] [address] JARRELL CALDERON MD,PHD,EDGARDO Stool STOOL SPECIMEN / Unknown 11/07/2024 3:51 PM OPEN SOAPER TENDER 11/08/2024 4:58 AM OPEN SOAPER TENDER Yolanda Percy SENIOR SALES ENGINEER-SCRUB WHEEL OPERATOR LAB - PA CROBIOLOGY ORDERABLES [facility] [address] [place] [address] * PROC DEEP BRAIN STIMULATOR (11/03/2024 2:08 PM OPEN SOAPER TENDER) Narrative Moncho Salcedo APRN-CNP - 11/03/2024 2:08 PM OPEN SOAPER TENDER Moncho Salcedo APRN-CNP 11/03/2024 4:00 PM Please see office notes for documentation- Thanks Moncho Salcedo SENIOR SALES ENGINEER-SCRUB WHEEL OPERATOR PROCEDURE/MINOR SURGICAL ORDERABLES * XR Knee Left 4Vw or More (09/19/2024 9:18 AM OPEN SOAPER TENDER) Anatomical Region Laterality Modality Lower Extremity Digital Radiogra phy 09/19/2024 10:0 4 AM OPEN SOAPER TENDER Impressions 09/19/2024 10:41 AM OPEN SOAPER TENDER IMPRESSION: No acute fracture or dislocation identified. Report dictated by Arnoldo Walker MD (residential supervisor). I, Baljinder Dunbar MD have personally reviewed and interpreted this examination/study. > Interpreting Provider: Baljinder Dunbar MD on 09/19/2024 10:41 AM Narrative 09/19/2024 10:41 AM OPEN SOAPER TENDER PROCEDURE: XR KNEE LEFT 4VW OR MORE, DATE/TIME OF EXAM: 09/19/2024 9:19 AM, LOCATION [facility] INDICATION: M25.562: Acute pain of left knee ADDITIONAL CLINICAL INFORMATION: COMPARISON: None. FINDINGS: The osseous structures are intact and well aligned without acute fracture or dislocation. The knee joint space is preserved. No joint effusion is seen. Procedure Note Baljinder Dunbar MD - 09/19/2024 PROCEDURE: XR KNEE LEFT 4VW OR MORE, DATE/TIME OF EXAM: 09/19/2024 9:19 AM, LOCATION [facility] INDICATION: M25.562: Acute pain of left knee ADDITIONAL CLINICAL INFORMATION: COMPARISON: None. FINDINGS: The osseous structures are intact and well aligned without acutefracture or dislocation. The knee joint space is preserved. No joint effusion is seen. IMPRESSION: No acute fracture or dislocation identified. Report dictated by Arnoldo Walker MD (residential supervisor). IBaljinder MD have personally reviewed and interpreted this examination/study. > Interpreting Provider: Baljinder Dunbar MD on 09/19/2024 10:41 AM Kerry Coffman DO DIAGNOSTIC IMAGING O RDERABLES * XR Lumbar Spine 4Vw or More (09/19/2024 9:18 AM OPEN SOAPER TENDER) Anatomical Region Laterality Modality Spine Digital Radiogra phy 09/19/2024 10:2 2 AM OPEN SOAPER TENDER Impressions 09/19/2024 3:01 PM OPEN SOAPER TENDER IMPRESSION: Moderate dextroscoliosis. Grade 1 anterior spondylolisthesis of L4 relative to L5 seen in association with mild instability as discussed above. > Dictated by Kim Noonan MD, (residential supervisor). ISergio MD have personally reviewed and interpreted this examination/study. > Interpreting Provider: Sergio Omalley MD on 09/19/2024 3:01 PM Narrative 09/19/2024 3:01 PM OPEN SOAPER TENDER PROCEDURE: XR LUMBAR SPINE 4VW OR MORE, DATE/TIME OF EXAM: 09/19/2024 9:19 AM, LOCATION [facility] INDICATION: M54.50: Acute bilateral low back [...] MORE, DATE/TIME OF EXAM: 49:19 AM, LOCATION [facility] INDICATION: M54.50: Acute bilateral low back [...] > Dictated by Kim Noonan MD, (residential supervisor). I, Sergio Omalley MD have personally reviewed and interpreted this examination/study. > Interpreting Provider: Sergio Omalley MD on 09/19/2024 3:01 PM Kerry Coffman DO DIAGNOSTIC IMAGING O RDERABLES * PROC DEEP BRAIN STIMULATOR (09/01/2024 8:53 AM OPEN SOAPER TENDER) Narrative Rissa Vo MD - 09/01/2024 8:53 AM OPEN SOAPER TENDER Rissa Vo MD 09/01/2024 8:53 AM Please see procedure notes Rissa Maldonado MD PROCEDURE/GODWIN R SURGICAL ORDERABLES * ALLERGEN BIRCH IGE (08/17/2024 1:51 PM OPEN SOAPER TENDER) Allergen Birch <0.10 kU/L [facility] Class 0 [facility] Comment: Test Performed at: [facility] [place] [address] [place] [address] SAROJ FAUSTIN MD Blood BLOOD SPECIMEN / Unknown 08/17/2024 1:51 PM OPEN SOAPER TENDER 08/17/2024 1:51 PM OPEN SOAPER TENDER Papito Morales MD LAB - SEROLOGY ORDER RHONDA Performing Organization Address [facility] Co de Phone Number [facility] [address] [place] [address] * ALLERGEN INTERPRETATION (08/17/2024 1:51 PM OPEN SOAPER TENDER) Interpretation See Below [facility] Comment: Specific Level [...] analytical performance characteristics have been determined by [employer]. It has not been cleared or approved by the U.S. Food and Drug Administration. This assay has been validated pursuant to the CLIA regulations and is used for clinical purposes. Test Performed at: [facility] [address] [place] [address] SAROJ FAUSTIN MD 08/17/2024 1:51 PM OPEN SOAPER TENDER 08/17/2024 1:51 PM OPEN SOAPER TENDER Papito Morales MD LAB - SEROLOGY ORDER RHONDA Performing Organization Address [facility] Co de Phone Number [facility] [address] [place] [address] * ALLERGEN RESPIRATORY PNL REGION 8 ([place]) (08/17/2024 1:51 PM OPEN SOAPER TENDER) Allergen Dermatophagoides pteronyssinus <0.10 kU/L [facility] Class [...] kU/L [facility] Class 0 [facility] Allergen Cockroach Solomon Islander <0.10 kU/L [facility] Class 0 [facility] Allergen Maple <0.10 kU/L [facility] Class 0 [facility] Allergen Mountain Hudson <0.10 kU/L [facility] Class 0 [facility] Allergen Alamosa Tree <0.10 kU/L [facility] Class 0 [facility] Allergen Glencoe <0.10 kU/L [facility] Class 0 [facility] Allergen Austin Tree <0.10 kU/L [facility] Class 0 [facility] Allergen White Bassam <0.10 kU/L [facility] Class 0 [facility] Allergen Weston <0.10 kU/L [facility] Class 0 [facility] Allergen Elm <0.10 kU/L [facility] Class 0 [facility] Allergen Mayfield/Pecan Tree <0.10 kU/L [facility] Class 0 [facility] Allergen White Hancock <0.10 kU/L [facility] Class 0 [facility] Allergen Bermuda Grass <0.10 kU/L [facility] Class 0 [facility] Allergen Paresh Grass <0.10 kU/L [facility] Class 0 [facility] Allergen Common Ragweed <0.10 kU/L [facility] Class 0 [facility] Allergen Rough Pigweed <0.10 kU/L [facility] Class 0 [facility] Allergen Ecuadorean Thistle <0.10 kU/L [facility] Class 0 [facility] Allergen Rough Veliz Elder <0.10 kU/L [facility] Class 0 [facility] Allergen Mouse Urine Protein <0.10 kU/L [facility] Class 0 [facility] IgE 12 <LT=819 kU/L [facility] Comment: Test Performed at: [facility] [place] [place] [address] SAROJ FAUSTIN MD Blood BLOOD SPECIMEN / Unknown 08/17/2024 1:51 PM OPEN SOAPER TENDER 08/17/2024 1:51 PM OPEN SOAPER TENDER Papito Morales MD LAB - CHEMISTRY SOTERO PATEL [facility] [address] [place] [address] * HENDRIX AUTO VISUAL FIELD EXTENDED (08/11/2024 [...] bowel preparation was evaluated using the BBPS (Gould Bowel Preparation Scale) with scores of: Right [...] entire procedure. Procedure Code(s): --- Professional --- 99453, Colonoscopy, flexible; with biopsy, single or multiple Diagnosis Code(s): --- Professional --- K64.0, First degree hemorrhoids K52.9, Noninfective gastroenteritis and colitis, unspecified CPT copyright 2021 [employer]. All rights reserved. The codes documented in this report are preliminary and upon supervisor mechanic boilermaking review may be revised to meet current compliance requirements. Colt Menchaca, 07/29/2024 9:27:51 AM Note Initiated On: 07/29/2024 9:03 AM Number of Addenda: 0 [facility] [address] [place] [address] [facility] PROVATION 07/29/2024 9:03 AM CDT Colt [...] entire procedure. Procedure Code(s): --- Professional --- 60340, Esophagogastroduo denoscopy, flexible, transoral; with biopsy, single or multiple Diagnosis Code(s): --- Professional --- K29.70, Gastritis, unspecified, without bleeding R19.7, Diarrhea, unspecified CPT copyright 2021 [employer]. All rights reserved. The codes documented in this report are preliminary and upon supervisor mechanic boilermaking review may be revised to meet current compliance requirements. Colt Menchaca, 07/29/2024 9:07:01 AM Note Initiated On: 07/29/2024 8:35 AM Number of Addenda: [phone] [place] [address] PROVATION 07/29/2024 8:35 AM CDT Colt Menchaca MD GI PROCEDURE O RDERABLES [facility] * FUNDUS PHOTO BOTH EYES (07/28/2024 12:40 [...] - 4.99 FLU 07/22/2024 5:45 AM CDT [facility] ([facility]) Comment: INTERPRETIVE INFORMATION: Tissue Transglutaminase Ab, [...] in patients without IgA deficiency. Performed By: [email or web address] [address] [place] [address] Training And Development Rep: Richard Guerin MD, PhD CLIA Number: [id number] Blood BLOOD SPECIMEN / Unknown Lab Venipuncture / Unknown 07/20/2024 11:49 AM CDT 07/20/2024 12:25 PM CDT Yolanda Greer SENIOR SALES ENGINEER-SCRUB WHEEL OPERATOR LAB - CH EMISTRY ORDERABLES [facility] ([facility]) [address] [place] [address] * TISSUE TRANSGLUTAMINASE AB IGA (07/20/2024 11:49 AM CDT) Tissue Transglutaminase (tTG) Ab, IgA 1.83 0.00 - 4.99 FLU 07/22/2024 5:45 AM CDT [facility] ([facility]) Comment: INTERPRETIVE INFORMATION: Tissue Transglutaminase (tTG) [...] indicate a response to therapy. Performed By: [facility] [address] [place] [address] Training And Development Rep: Richard Guerin MD, PhD CLIA Number: [id number] Blood BLOOD SPECIMEN / Unknown Lab Venipuncture / Unknown 07/20/2024 11:49 AM CDT 07/20/2024 12:27 PM CDT Yolanda Greer SENIOR SALES ENGINEER-SCRUB WHEEL OPERATOR LAB - ROLOGY ORDERABLES [facility] [employer] [facility]) [address] * C-REACTIVE PROTEIN (07/20/2024 11:49 AM CDT) C-Reactive Protein 0.5 <=0.5 mg/dL 07/20/2024 12:52 PM CDT [facility] Blood BLOOD SPECIMEN / Unknown Lab Venipuncture / Unknown 07/20/2024 11:49 AM CDT 07/20/2024 12:17 PM CDT Yolanda Greer APRN-SCRUB WHEEL OPERATOR [employer] EMISTRY ORDERABLES [facility] [address] [place] [address], [facility] [phone] * VITAMIN D 25-HYDROXY (07/20/2024 11:49 AM CDT) Only the most recent of2 resultswithin the time period is included. Vitamin D, 25 Hydroxy 51.6 30.0 - 80.0 ng/mL 07/20/2024 1:18 PM CDT [facility] Comment: The recommendations for 25-Hydroxy Vitamin [...] CDT 07/20/2024 12:17 PM CDT Yolanda Greer [facility] [place] EMISTRY ORDERABLES Performing Organization Address City/[facility]/ZIP Co de Phone Number [facility] [address] [place] [address], [facility] [phone] * (ABNORMAL) CBC W/ DIFFERENTIAL (07/20/2024 11:49 AM CDT) Only the most recent of6 resultswithin the time period is included. WBC 4.0 4.0 - 10.7 x10E9/L 07/20/2024 12:24 PM CDT [facility] RBC Count 4.48 3.90 - 5.20 x10E12/L 07/20/2024 12:24 PM CDT [facility] Hemoglobin 13.9 11.9 - 15.8 g/dL 07/20/2024 12:24 PM CDT [facility] Hematocrit 42.5 34.8 - 46.1 % 07/20/2024 12:24 PM [facility] MCV 94.9 80.0 - 98.0 fL 07/20/2024 12:24 PM [facility] MCH 31.0 26.7 - 33.6 pg 07/20/2024 12:24 PM [facility] MCHC 32.7 31.7 - 36.3 g/dL 07/20/2024 12:24 PM [facility] RDW-CV 13.2 11.3 - 14.8 % 07/20/2024 12:24 PM [facility] Platelet Count 225 150 - 420 x10E9/L 07/20/2024 12:24 PM [facility] MPV 9.7 7.8 - 11.4 fL 07/20/2024 12:24 PM [facility] Neutrophil % 68.4 41.0 - 74.0 % 07/20/2024 12:24 PM [facility] Lymphocyte % 19.0 17.0 - 47.0 % 07/20/2024 12:24 PM [facility] Monocyte % 9.0 3.0 - 11.0 % 07/20/2024 12:24 PM [facility] Eosinophil % 1.8 0.0 - 7.0 % 07/20/2024 12:24 PM [facility] Basophil % 1.3 0.0 - 1.6 % 07/20/2024 12:24 PM [facility] Immature Granulocytes % 0.5 0.0 - 1.0 % 07/20/2024 12:24 PM [facility] Neutrophil Absolute 2.74 1.60 - 7.50 x10E9/L 07/20/2024 12:24 PM [facility] Lymphocyte Absolute 0.76(L) 1.00 - 4.40 x10E9/L 07/20/2024 12:24 PM [facility] Monocyte Absolute 0.36 0.15 - 1.00 x10E9/L 07/20/2024 12:24 PM [facility] Eosinophil Absolute 0.07 0.00 - 0.60 x10E9/L 07/20/2024 12:24 PM [facility] Basophil Absolute 0.05 0.00 - 0.13 x10E9/L 07/20/2024 12:24 PM [facility] Blood BLOOD SPECIMEN / Unknown Lab Venipuncture / Unknown 07/20/2024 11:49 AM CDT 07/20/2024 12:17 PM CDT Yolanda Greer SENIOR SALES ENGINEER-SCRUB WHEEL OPERATOR LAB - HE MATOLOGY ORDERABLES [facility] [address] [place] [address], [facility] [phone] * (ABNORMAL) COMPREHENSIVE METABOLIC PANEL (07/20/2024 11:49 AM CDT) BUN 10 7 - 26 mg/dL 07/20/2024 12:52 PM [facility] Creatinine 0.80 0.56 - 0.96 mg/dL 07/20/2024 12:52 PM [facility] Sodium 139 136 - 145 mmol/L 07/20/2024 12:52 PM [facility] Potassium 4.3 3.5 - 4.5 mmol/L 07/20/2024 12:52 PM [facility] Chloride 103 98 - 107 mmol/L 07/20/2024 12:52 PM [facility] CO2 28 22 - 29 mmol/L 07/20/2024 12:52 PM [facility] Glucose 165(H) 70 - 115 mg/dL 07/20/2024 12:52 PM [facility] Calcium 9.8 8.4 - 10.2 mg/dL 07/20/2024 12:52 PM [facility] Protein Total 7.1 6.0 - 8.3 g/dL 07/20/2024 12:52 PM [facility] Albumin 4.2 3.4 - 5.0 g/dL 07/20/2024 12:52 PM [facility] Bilirubin Total 0.2 0.2 - 1.2 mg/dL 07/20/2024 12:52 PM [facility] Alkaline Phosphatase 124 40 - 150 U/L 07/20/2024 12:52 PM [facility] ALT 16 5 - 55 U/L 07/20/2024 12:52 PM [facility] AST 20 5 - 34 U/L 07/20/2024 12:52 PM [facility] Anion Gap 8 6 - 16 07/20/2024 12:52 PM [facility] BUN/Creatinine Ratio 13 7 - 23 07/20/2024 12:52 PM [facility] Osmolality Calculated 291 275 - 295 mOsm/kg 07/20/2024 12:52 PM [facility] Albumin/Globulin Ratio 1.4 1.1 - 2.3 07/20/2024 12:52 PM [facility] eGFR by CKD-EPI 80(L) >=90 mL/min/1.7 3 m2 07/20/2024 12:52 PM [facility] Blood BLOOD SPECIMEN / Unknown Lab Venipuncture / Unknown 07/20/2024 11:49 AM CDT 07/20/2024 12:17 PM CDT Yolanda Greer APRNARELY LAB - CH EMISTRY ORDERABLES Performing Organization Address City/[facility]/ZIP Co de Phone Number [address] [address], [facility] [phone] * FOLATE (07/20/2024 11:49 AM CDT) Only the most recent of2 resultswithin the time period is included. Folate 13.1 7.0 - 31.4 ng/mL 07/20/2024 1:18 PM T [facility] Blood BLOOD SPECIMEN / Unknown Lab Venipuncture / Unknown 07/20/2024 11:49 AM CDT 07/20/2024 12:17 PM CDT [facility] - [place] EMISTRY ORDERABLES Performing Organization Address City/[facility]/ZIP Co de Phone Number [address] [address], [place] [phone] * (ABNORMAL) VITAMIN B12 (07/20/2024 11:49 AM CDT) Only the most recent of2 resultswithin the time period is included. Vitamin B12 1,090(H) 213 - 816 pg/mL 07/20/2024 1:18 PM CDT [facility] Blood BLOOD SPECIMEN / Unknown Lab Venipuncture / Unknown 07/20/2024 11:49 AM CDT 07/20/2024 12:17 PM CDT Yolanda Greer [facility] - CH EMISTRY ORDERABLES [address] [address], [facility] [phone] * IRON + TRANSFERRIN PANEL [w/Transferrin Sat % + TIBC] (07/20/2024 11:49 AM CDT) Pathologist [facility] Iron 81 40 - 150 ug/dL 07/20/2024 12:40 PM CDT [facility] Transferrin 246 174 - 382 mg/dL 07/20/2024 12:40 PM CDT [facility] Transferrin Saturation % 26 16 - 50 % 07/20/2024 12:40 PM CDT [facility] TIBC Calculated 308 240 - 450 ug/dL 07/20/2024 12:40 PM CDT [facility] Blood BLOOD SPECIMEN / Unknown Lab Venipuncture / Unknown 07/20/2024 11:49 AM CDT 07/20/2024 12:24 PM CDT Yolanda Greer [facility] - CH EMISTRY ORDERABLES [address] [address], [place] [phone] * IGA BLOOD (07/20/2024 11:49 AM CDT) IgA 147 61 - 356 mg/dL 07/20/2024 12:40 PM CDT [facility] Blood BLOOD SPECIMEN / Unknown Lab Venipuncture / Unknown 07/20/2024 11:49 AM CDT 07/20/2024 12:24 PM CDT Yolanda Greer SENIOR SALES ENGINEER[facility]WO[facility] LAB - CH EMISTRY ORDERABLES Performing Organization Address City/[facility]/ZIP Co de Phone Number [address] [address], [facility] [phone] * FERRITIN (07/20/2024 11:49 AM CDT) Ferritin 65 13 - 204 ng/mL 07/20/2024 12:57 PM CDT [facility] Blood BLOOD SPECIMEN / Unknown Lab Venipuncture / Unknown 07/20/2024 11:49 AM CDT 07/20/2024 12:24 PM CDT Yolanda Greer [facility] - CH EMISTRY ORDERABLES Performing Organization Address City/[facility]/ZIP Co de Phone Number [address] [address], [facility] [phone] * PROC DEEP BRAIN STIMULATOR (05/20/2024 12:16 [...] Hemoglobin A1c POCT 5.4 % CLAUDIA Sullivan [facility] BLOOD SPECIMEN / Unknown 04/04/2024 11:34 AM CDT Kerry Montemayorhbach DO LAB - POINT OF CARE ORDERABLES BELLA Sullivan [place] [address] [facility] [place] [address], [facility] [phone] * [place] ANALYS BRN NPGT PRGRMG 15 MIN, [place] ANALYS BRN NPGT PRGRMG ADDL 15 (01/13/2024 10:41 AM CDT) Narrative Rissa Vo MD - 01/13/2024 10:41 AM CDT Rissa Vo MD 01/13/2024 10:42 AM Please see procedure notes Rissa Maldonado MD PROCEDURE/GODWNI R SURGICAL ORDERABLES * [place] ANALYS BRN NPGT PRGRMG 15 MIN, [place] ANALYS BRN NPGT PRGRMG ADDL 15 (12/11/2023 3:30 PM OPEN SOAPER TENDER) Narrative Moncho Salcedo APRN-SCRUB WHEEL OPERATOR - 12/11/2023 3:30 PM OPEN SOAPER TENDER Moncho Salcedo APRN-SCRUB WHEEL OPERATOR 12/14/2023 9:26 AM Please see office notes for documentation Thanks Moncho Salcedo SENIOR SALES ENGINEER-SCRUB WHEEL OPERATOR PROCEDURE/MINOR SURGICAL ORDERABLES * [place] ANALYS BRN NPGT PRGRMG 15 MIN, [place] ANALYS BRN NPGT PRGRMG ADDL 15 (08/05/2023 1:24 PM CDT) Narrative Rissa Vo MD - 08/05/2023 1:24 PM CDT Rissa Vo MD 08/05/2023 1:25 PM Please see procedure notes Rissa Maldonado MD PROCEDURE/GODWIN R SURGICAL ORDERABLES * [place] ANALYS BRN NPGT PRGRMG ADDL 15, [place] ANALYS BRN NPGT PRGRMG 15 MIN (03/05/2023 [...] within a diagnostic category. Test Performed at: [facility] [address] [place] [address] SAROJ FAUSTIN MD 02/05/2023 12:2 6 PM CDT 02/05/2023 12:27 PM CDT Marquise Adames MD LAB - URINE CHEMISTR Y ORDERABLES [facility] [address] [place] [address] * (ABNORMAL) BASIC METABOLIC PANEL (CALCIUM TOTAL) [...] 10.4 mg/dL [facility] Comment: Test Performed at: [facility] [address] SAROJ FAUSTIN MD 02/05/2023 12:2 6 PM CDT 02/05/2023 12:27 PM CDT Marquise Adames MD LAB - CHEMISTRY SOTERO PATEL Performing Organization Address City/[facility]/ZIP Co de Phone Number [address] [address] * CALCIUM URINE RANDOM (02/05/2023 12:26 PM CDT) [facility] Calcium Random Urine 5.1 mg/dL [facility] Comment: Reference Range Not established Test Performed at: [facility] [address] [place] [address] SAROJ FAUSTIN MD 02/05/2023 12:2 6 PM CDT 02/05/2023 12:27 PM CDT Marquise Adames MD LAB - URINE CHEMISTR Y ORDERABLES Performing Organization Address City/[facility]/ZIP Co de Phone Number [address] [address] * [place] ANALYS BRN NPGT PRGRMG 15 MIN, [place] ANALYS BRN NPGT PRGRMG ADDL 15 (12/07/2022 2:14 PM OPEN SOAPER TENDER) Narrative Rissa Vo MD - 12/07/2022 2:14 PM OPEN SOAPER TENDER Rissa Vo MD 12/07/2022 2:14 PM Please see procedure notes Rissa Maldonado MD PROCEDURE/GODWIN R SURGICAL ORDERABLES * [place] ANALYS BRN NPGT PRGRMG 15 MIN, [place] ANALYS BRN NPGT PRGRMG ADDL 15 (10/29/2022 1:08 PM OPEN SOAPER TENDER) Narrative Rissa Vo MD - 10/29/2022 1:08 PM OPEN SOAPER TENDER Rissa Vo MD 10/29/2022 1:11 PM Please see procedure notes Rissa Maldonado MD PROCEDURE/GODWIN R SURGICAL ORDERABLES * IL ANALYS BRN NPGT PRGRMG 15 MIN, [place] ANALYS BRN NPGT PRGRMG ADDL 15, [place] ANALYS BRN NPGT PRGRMG ADDL15 (10/01/2022 1:28 PM OPEN SOAPER TENDER) Narrative Rissa Vo MD - 10/01/2022 1:28 PM OPEN SOAPER TENDER Rissa Vo MD 10/01/2022 1:29 PM Please see procedure notes Rissa Maldonado MD PROCEDURE/GODWIN R SURGICAL ORDERABLES * CARDIAC EKG ORDER (09/01/2022 5:10 PM OPEN SOAPER TENDER) Only the most recent of2 resultswithin the time period is included. Narrative 09/01/2022 5:10 PM OPEN SOAPER TENDER Ordered by an unspecified provider. Scanned Document CARDIAC SERVICES ORD ERABLES * CT HEAD STEREOTACTIC (08/30/2022 4:02 AM OPEN SOAPER TENDER) Only the most recent of3 resultswithin the time period is included. Anatomical Region Laterality Modality Head Computed Tomogra phy 08/30/2022 4:05 AM OPEN SOAPER TENDER Impressions 08/30/2022 12:30 PM OPEN SOAPER TENDER IMPRESSION: 1.Expected postoperative changes from placement of a right frontal approach deep brain stimulator lead. Report dictated by Yuko Redman DO (residential supervisor). I, Shiloh Lofton MD have personally reviewed and interpreted this examination/study. > Interpreting Provider: Shiloh Lofton MD on 08/30/2022 12:30 PM Narrative 08/30/2022 12:30 PM OPEN SOAPER TENDER PROCEDURE: CT HEAD WO CONTRAST, DATE/TIME OF EXAM: 08/30/2022 4:03 AM, LOCATION [facility] INDICATION: G25.0: Benign essential tremor ADDITIONAL [...] DATE/TIME OF EXAM: 08/30/2022 4:03 AM, LOCATION [facility] INDICATION: G25.0: Benign essential tremor ADDITIONAL [...] lead. Report dictated by Yuko Redman DO (residential supervisor). IShiloh MD have personally reviewed and interpreted this examination/study. > Interpreting Provider: Shiloh Lofton MD on 08/30/2022 12:30 PM [address]esh North MD CT ORDERABLES * XR SKULL 3VW OR LESS (08/29/2022 3:28 PM OPEN SOAPER TENDER) Only the most recent of2 resultswithin the time period is included. Anatomical Region Laterality Modality Head Radiographic Josephine ging 08/29/2022 3:33 PM OPEN SOAPER TENDER Impressions 08/29/2022 4:03 PM OPEN SOAPER TENDER IMPRESSION: Placement of a right deep brain stimulator lead via right frontoparietal arden hole. > Dictated by Harmeet Andersen DO (Criminal Justice Program Director) Fang Gutierrez MD have personally reviewed and interpreted this examination/study. > Interpreting Provider: Fang Varela MD on 08/29/2022 4:03 PM Narrative 08/29/2022 4:03 PM OPEN SOAPER TENDER PROCEDURE: XR SKULL 3VW OR LESS, DATE/TIME OF EXAM: 08/29/2022 3:30 PM, LOCATION [facility] INDICATION: Z01.818: Pre-op evaluation ADDITIONAL CLINICAL [...] LESS, DATE/TIME OF EXAM: 08/29/2022 3:30PM, LOCATION [facility] INDICATION: Z01.818: Pre-op evaluation ADDITIONAL CLINICAL [...] hole. > Dictated by Harmeet Andersen DO (Criminal Justice Program Director) IFang MD have personally reviewed and interpreted this examination/study. > Interpreting Provider: Fang Varela MD on 08/29/2022 4:03 PM Shailesh North MD DIAGNOSTIC IMAGING ORDERABLES * XR CHEST 1VW PORTABLE (08/29/2022 2:44 PM OPEN SOAPER TENDER) Only the most recent of2 resultswithin the time period is included. Anatomical Region Laterality Modality Chest Radiographic Josephine ging 08/29/2022 3:08 PM OPEN SOAPER TENDER Narrative 08/29/2022 3:22 PM OPEN SOAPER TENDER PROCEDURE: XR CHEST 1VW PORTABLE, DATE/TIME OF EXAM: 08/29/2022 2:44 PM, LOCATION [facility] INDICATION: G25.0: Benign essential tremor ADDITIONAL [...] intact. Report dictated by Chris Rizvi MD (residential supervisor). Sravanthi Gutierrez MD have personally reviewed and interpreted this examination/study. > Interpreting Provider: Sravanthi Ellis MD on 08/29/2022 3:22 PM Procedure Note Karin Ellis MD - 08/29/2022 PROCEDURE: XR CHEST 1VW PORTABLE, DATE/TIME OF EXAM: 08/29/2022 2:44PM, LOCATION [facility] INDICATION: G25.0: Benign essential tremor ADDITIONAL [...] intact. Report dictated by Chris Rizvi MD (residential supervisor). Sravanthi Gutierrez MD have personally reviewed and interpreted this examination/study. > Interpreting Provider: Sravanthi Ellis MD on 08/29/2022 3:22 PM Shailesh North MD DIAGNOSTIC IMAGING ORDERABLES * XR NECK SOFT TISSUE (08/29/2022 2:43 PM OPEN SOAPER TENDER) Only the most recent of2 resultswithin the time period is included. Anatomical Region Laterality Modality Head Radiographic Josephine ging 08/29/2022 3:25 PM OPEN SOAPER TENDER Impressions 08/29/2022 3:39 PM OPEN SOAPER TENDER IMPRESSION: Postoperative changes of right deep brain stimulator lead placement via right frontoparietal approach. > Dictated by Harmeet Andersen DO (Criminal Justice Program Director) Fang Gutierrez MD have personally reviewed and interpreted this examination/study. > Interpreting Provider: Fang Varela MD on 08/29/2022 3:39 PM Narrative 08/29/2022 3:39 PM OPEN SOAPER TENDER PROCEDURE: XR NECK SOFT TISSUE, DATE/TIME OF EXAM: 08/29/2022 2:44 PM, LOCATION [facility] INDICATION: Z96.89: S/P deep brain stimulator [...] DATE/TIME OF EXAM: 08/29/2022 2:44 PM, LOCATION [facility] INDICATION: Z96.89: S/P deep brain stimulator [...] approach. > Dictated by Harmeet Andersen DO (Criminal Justice Program Director) I, Fang Varela MD have personally reviewed and interpreted this examination/study. > Interpreting Provider: Fang Varela MD on 08/29/2022 3:39 PM Shailesh North MD DIAGNOSTIC IMAGING ORDERABLES * FL OARM SURGERY (08/29/2022 11:56 AM OPEN SOAPER TENDER) Only the most recent of2 resultswithin the time period is included. Narrative [facility] - 08/29/2022 11:58 AM OPEN SOAPER TENDER Fluoroscopy was used for this exam in the OR. Please see the Operative report. Shailesh North MD FLUOROSCOPY ORDERAB LES [facility] * ETT LINE PERFORMABLE (08/29/2022 11:47 AM OPEN SOAPER TENDER) Narrative Yudi Santana APRN-CRNA - 08/29/2022 11:47 AM OPEN SOAPER TENDER Yudi Santana APRN-CRNA 08/29/2022 11:57 AM Endotracheal Tube Placement: Patient Location: OR. Intubation Event Date/Time: 08/29/2022 11:47 AM Procedure: intubation (69450). Procedure Section: Sedation: under general anesthesia. Indications [...] TYPE + SCREEN PANEL (08/29/2022 6:19 AM OPEN SOAPER TENDER) Only the most recent of2 resultswithin the time period is included. Antibody Screen NEG 7:15 AM OPEN SOAPER TENDER [facility] ABO Rh A POS 08/29/2022 7:15 AM OPEN SOAPER TENDER [facility] Blood Bank BLOOD SPECIMEN / Unknown Venipuncture / Unknown 08/29/2022 6:19 AM OPEN SOAPER TENDER 08/29/2022 6:31 AM OPEN SOAPER TENDER Nutressa A Sierra SENIOR SALES ENGINEER-SCRUB WHEEL OPERATOR LAB - BLOOD B ANK ORDERABLES [facility] [address] [place] [address], [facility] [phone] * PTT [facility] (08/15/2022 11:57 AM CDT) Only the most recent of2 resultswithin the time period is included. APTT 30.8 23.0 - 38.4 Seconds 08/15/2022 1:10 PM CDT [facility] Comment:Suggested therapeuti c range for full dose I.V. unfractionated heparin therapy for venous thromboembolism is 71 to 109 seconds. Blood BLOOD SPECIMEN / Unknown Lab Venipuncture / Unknown 08/15/2022 11:57 AM CDT 08/15/2022 12:42 PM CDT Shailesh North MD LAB - COAGULATION O NATAN Performing Organization Address City/[facility] Co de Phone Number [facility] [address] [place] [phone], [facility] [phone] * PT-INR [facility] (08/15/2022 11:57 AM CDT) Only the most recent of2 resultswithin the time period is included. PT 13.9 12.1 - 14.8 Seconds 08/15/2022 1:10 PM CDT [facility] INR 1.1 See Comment 08/15/2022 1:10 PM CDT [facility] Comment:The suggested therap eutic range for standard coumadin (warfarin) therapy is an INR of 2.0-3.0. For high-risk patients (Mechanical Mitral Valve Prosthesis, etc.), the suggested prophylactic therapeutic range is an INR of 2.5-3.5. Blood BLOOD SPECIMEN / Unknown Lab Venipuncture / Unknown 08/15/2022 11:57 AM CDT 08/15/2022 12:42 PM CDT Shailesh North MD LAB - COAGULATION O NATAN [facility] [address] [place] [address], [facility] [phone] * XR CHEST 2VW (08/15/2022 11:26 AM CDT) Only the most recent of2 resultswithin the time period is included. Anatomical Region Laterality Modality Chest Radiographic Josephine ging 08/15/2022 11:3 8 AM CDT Narrative 08/15/2022 4:38 PM CDT PROCEDURE: XR CHEST 2VW, DATE/TIME OF EXAM: 08/15/2022 11:27 AM, LOCATION [facility] INDICATION: Z01.818: Pre-op testing COMPARISON: Chest x-ray 03/24/2022 FINDINGS/IMPRESSION: Left-sided battery pack/degenerative device with the lead coursing superiorly into the soft tissues of the neck. Distal end of the lead is not seen There is no focal consolidation, pleural effusion, or pneumothorax. The cardiomediastinal silhouette is normal. The visible bony thorax is intact. Report dictated by Isaiah Keenan MD, MD (residential supervisor). Kylie Gutierrez MD have personally reviewed and interpreted this examination/study. > Interpreting Provider: Kylie Horn MD on 08/15/2022 4:38 PM Procedure Note Kylie Horn MD - 08/15/2022 PROCEDURE: XR CHEST 2VW, DATE/TIME OF EXAM: 08/15/2022 11:27 AM, LOCATION [facility] INDICATION: Z01.818: Pre-op testing COMPARISON: Chest x-ray 03/24/2022 FINDINGS/IMPRESSION: Left-sided battery pack/degenerative device with the lead coursing superiorly into the soft tissues of the neck. Distal end of the lead isnot seen There is no focal consolidation, pleural effusion, or pneumothorax. The cardiomediastinal silhouette is normal. The visible bony thorax isintact. Report dictated by Isaiah Keenan MD, MD (residential supervisor). Kylie Gutierrez MD have personally reviewed and interpreted this examination/study. > Interpreting Provider: Kylie Horn MD on 08/15/2022 4:38 PM Shailesh North MD DIAGNOSTIC IMAGING ORDERABLES * EKG 12-LEAD (08/15/2022 10:16 AM CDT) Only the most recent of2 resultswithin the time period is included. [facility] Ventricular Rate 74 BPM [facility] Atrial Rate 74 BPM [facility] P-R Interval 184 ms [facility] QRS Duration ms 72 ms [facility] Q-T Interval ms 378 ms [facility] QTC Calculation (Bezet) 419 ms [facility] Calculated P [place] 65 degrees [facility] Calculated R [place] 48 degrees [facility] Calculated T [place] 69 degrees [facility] Interpretation EKG NORMAL SINUS RHYTHM NONSPECIFIC ST & T WAVE CHANGES BORDERLINE ECG WHEN COMPARED WITH ECG OF 12-MAR-2022 14:09, NO SIGNIFICANT CHANGE WAS FOUND Confirmed by SUE FERNÁNDEZ, TRA ([id number]) on 08/16/2022 7:20:16 PM [facility] 08/15/2022 10:1 6 AM CDT 08/16/2022 7:20 PM CDT Shailesh North MD ECG ORDERABLES [facility] * TSH REFLEX FREE T4 (08/06/2022 9:41 AM CDT) [facility] TSH 3.348 0.350 - 4.940 uIU/mL 08/06/2022 12:01 PM CDT [facility] Blood BLOOD SPECIMEN / Unknown Lab Venipuncture / Unknown 08/06/2022 9:41 AM CDT 08/06/2022 9:55 AM CDT Dre Groves MD LAB - CHEMISTRY SOTERO PATEL [facility] [address] [place] [phone], [facility] [phone] * T4 FREE (08/06/2022 9:41 AM CDT) [facility] T4 Free 0.9 0.7 - 1.5 ng/dL 08/06/2022 12:01 PM CDT [facility] Blood BLOOD SPECIMEN / Unknown Lab Venipuncture / Unknown 08/06/2022 9:41 AM CDT 08/06/2022 9:55 AM CDT Dre Groves MD LAB - CHEMISTRY SOTERO PATEL [facility] Organization Address City/State/ZIP Co de Phone Number [facility] [address] [place] [address], [facility] [phone] * [place] ANALYS BRN NPGT PRGRMG 15 MIN (06/17/2022 9:32 PM CDT) Narrative Rissa Vo MD - 06/17/2022 9:32 PM CDT Rissa Vo MD 06/17/2022 9:33 PM Please see procedure notes Rissa Maldonado MD PROCEDURE/GODWIN R SURGICAL ORDERABLES * [place] ANALYS BRN NPGT PRGRMG 15 MIN, [place] ANALYS BRN NPGT PRGRMG ADDL 15, [place] ANALYS BRN NPGT PRGRMG ADDL15 (04/17/2022 6:16 [...] arden hole. Dictated by Facundo Sue MD (residential supervisor). I, Dr. KYLIE HORN have personally reviewed [...] arden hole. Dictated by Facundo Sue MD (residential supervisor). I, Dr. KYLIE HORN have personally reviewed [...] Event Date/Time: 03/24/2022 1:41 PM Procedure: intubation ([id number]). Procedure Section: Sedation: under general anesthesia. Indications [...] Peripheral IV Line Placement: Procedure: IV start ([id number]). Procedure Section: Orientation: right Location: foot Catheter [...] A POS 03/17/2022 8:2 4 AM CDT [facility] Blood Bank BLOOD SPECIMEN / Unknown Lab Venipuncture / Unknown 03/17/2022 7:32 AM CDT 03/17/2022 7:44 AM CDT Provider Unknown LAB - BLOOD BANK ORD ERABLES [facility] [address] [place] [address], [facility] [phone] * URINALYSIS W/MICROSCOPIC REFLEX TO CULTURE (03/12/2022 3:30 PM CDT) Color UA Yellow Straw, Yellow 03/12/2022 4:25 PM CDT [facility] Clarity UA Clear Clear 03/12/2022 4:25 PM CDT [facility] Specific [place] UA 1.006 1.005 - 1.030 03/12/2022 4:25 PM [facility] pH UA 6.0 5.0 - 8.0 pH 03/12/2022 4:25 PM [facility] Protein UA Negative Negative 03/12/2022 4:25 PM [facility] Glucose UA Negative Negative 03/12/2022 4:25 PM [facility] Ketone UA Negative Negative 03/12/2022 4:25 PM T [facility] Bilirubin UA Negative Negative 03/12/2022 4:25 PM T [facility] Blood UA Negative Negative 03/12/2022 4:25 PM [facility] Nitrite UA Negative Negative 03/12/2022 4:25 PM [facility] Leukocyte Esterase Negative Negative 03/12/2022 4:25 PM [facility] Urobilinogen UA Negative Negative mg/dL 03/12/2022 4:25 PM [facility] RBC UA 0-2 None Seen, 0-2, 3-5 /HPF 03/12/2022 4:25 PM T [facility] WBC UA 0-5 None Seen, 0-5 /HPF 03/12/2022 4:25 PM [facility] Squamous Epithelial Cells UA 0-2 None Seen, 0-2, 3-5 /HPF 03/12/2022 4:25 PM T [facility] Urine URINE SPECIMEN OBTAINED BY CLEAN CATCH PROCEDURE / Unknown Collection / Unknown 03/12/2022 3:30 PM CDT 03/12/2022 4:15 PM CDT Narrative [facility] - 03/12/2022 4:25 PM CDT Culture Not Indicated Shailesh North MD LAB - URINALYSIS OR DERABLES [facility] [address] [place] [phone], [facility] [phone] * XR FOOT RIGHT 3VW OR MORE [...] MRI BRAIN WWO CONTRAST (12/19/2021 7:34 AM OPEN SOAPER TENDER) Anatomical Region Laterality Modality Head Magnetic Resonan ce 12/19/2021 11:1 7 AM OPEN SOAPER TENDER Impressions 12/19/2021 11:42 AM OPEN SOAPER TENDER IMPRESSION: No acute intracranial abnormality. I, Dr. GOYO DELACRUZ have personally reviewed and interpreted this examination/study. This report was electronically signed by GOYO DELACRUZ on 12/19/2021 11:42 AM . Narrative 12/19/2021 11:42 AM OPEN SOAPER TENDER Contrast enhanced MRI of brain CLINICAL INFORMATION: [...] CREATININE - POCT INTERFACED (12/19/2021 6:40 AM OPEN SOAPER TENDER) Creatinine POCT 0.73 0.30 - 1.30 mg/dL 12/19/2021 6:43 AM OPEN SOAPER TENDER [facility] eGFR >90 >90 mL/min/1.7 3 m2 12/19/2021 6:43 AM OPEN SOAPER TENDER [facility] Blood BLOOD SPECIMEN / Unknown 12/19/2021 6:40 AM OPEN SOAPER TENDER 12/19/2021 6:43 AM OPEN SOAPER TENDER Rissa Maldonado MD LAB - POINT OF CARE ORDERABLES [facility] [address] [place] [address], [facility] [phone] Care Teams Packing House Laborer Relationship Specialty Start Date End Date Kerry Coffman DO [address] OF [facility] [place] [address] PCP - General Internal Medicine 12/15/23
--- OUTSIDE RECORDS SUMMARY | 2024-12-17 12:39 | XMS_ITS | Clinical Summary ---
Author Organization [facility] Address [address] [place] [id number] Care Team Providers Care Authorizer Name Role Phone Kerry Coffman Primary Care [...] 1 tablet (2 mg total) by mouth international trade compliance manager before breakfast 4 Active azelastine (ASTELIN) 137 [...] Department Care Team Description 11/21/2024 1:50 PM LIFE SKILLS EDUCATOR - 11/21/2024 11:59 PM LIFE SKILLS EDUCATOR Hospital Encounter [facility] Radiology at [facility] [address] [place] [id number] Discharge Disposition: Discharge to home or self care 11/21/2024 1:20 PM LIFE SKILLS EDUCATOR Office Visit [facility] Rheumatology [address] [place] [address] 2nd Floor [address] [place] [phone] Marialuisa Franklin NP Rheumatoid arthritis with negative rheumatoid factor, involving unspecified site (HCC) (Primary Dx); High risk medication use 11/15/2024 10:40 AM LIFE SKILLS EDUCATOR - 11/15/2024 11:59 PM LIFE SKILLS EDUCATOR Hospital Encounter [facility] of [address] [address] High risk medication use Discharge Disposition: Discharge to home or self care 11/15/2024 10:30 AM LIFE SKILLS EDUCATOR Infusion [facility] Infusion Therapy [address] [facility] 2nd Floor [address] [place] [phone] Rheumatoid arthritis with negative rheumatoid factor, involving unspecified site (HCC) (Primary Dx) 10/18/2024 10:30 AM LIFE SKILLS EDUCATOR Infusion [facility] Infusion Therapy [address] [facility] 2nd Floor [address] [place] [phone] Rheumatoid arthritis with negative rheumatoid factor, involving unspecified site (HCC) (Primary Dx) from Last 3 Months Surgical History Surgery Date Site/Laterality Comments OVARIAN CYSTECTOMY 10/12/2011 - 10/11/2012 ORTHOPEDIC SURGERY 10/12/1994 - 10/11/1995 right foot ORTHOPEDIC SURGERY 10/12/1960 - 10/11/1961 left middle finger COLONOSCOPY 09/11/2022 - 10/11/2022 Medical History Medical History Date Comments Rheumatic fever Migraines Diabetes mellitus (HCC) Alcoholism (HCC) Bipolar 1 disorder (HCC) Hereditary essential [...] on file Legal Sex Female 10:45 PM LIFE SKILLS EDUCATOR Gender Identity Not on file Sexual Orientation Not on file Obstetrics History Last Filed Vital Signs Vital Sign Reading Time Taken Comments Blood Pressure 93/58 11/21/2024 1:01 PM LIFE SKILLS EDUCATOR Pulse 63 11/21/2024 1:01 PM LIFE SKILLS EDUCATOR Temperature 36.6 C (97.8 F) 11/21/2024 1:01 PM LIFE SKILLS EDUCATOR Respiratory Rate - - Oxygen Saturation 99% 11/21/2024 1:01 PM LIFE SKILLS EDUCATOR Inhaled Oxygen Concentration - - Weight 68 kg (150 lb) 11/21/2024 1:01 PM LIFE SKILLS EDUCATOR Height 167.6 cm (5' 5.98 ) 11/21/2024 1:01 PM CS T Body Mass Index 24.22 11/21/2024 1:01 PM LIFE SKILLS EDUCATOR Plan of Treatment Health Maintenance Due Date [...] Read Routine (OP Routine) 11/21/2024 2:04 PM LIFE SKILLS EDUCATOR Rheumatoid arthritis with negative rheumatoid factor, involving unspecified site (HCC) XR HAND LEFT 3 OR MORE VIEWS Schedule Routine, Read Routine (OP Routine) 11/21/2024 2:04 PM LIFE SKILLS EDUCATOR Rheumatoid arthritis with negative rheumatoid factor, involving unspecified site (HCC) XR WRIST RIGHT 3 OR MORE VIEWS Schedule Routine, Read Routine (OP Routine) 11/21/2024 2:04 PM LIFE SKILLS EDUCATOR Rheumatoid arthritis with negative rheumatoid factor, involving unspecified site (HCC) XR WRIST LEFT 3 OR MORE VIEWS Schedule Routine, Read Routine (OP Routine) 11/21/2024 2:04 PM LIFE SKILLS EDUCATOR Rheumatoid arthritis with negative rheumatoid factor, involving unspecified site (HCC) EGFR Routine 11/15/2024 1:46 PM LIFE SKILLS EDUCATOR High risk medication use DIFFERENTIAL AUTO Routine 11/15/2024 1:4 6 PM LIFE SKILLS EDUCATOR High risk medication use COMPREHENSIVE METABOLIC PANEL Routine 11/15/2024 1:46 PM LIFE SKILLS EDUCATOR High risk medication use CBC WITH AUTO DIFFERENTIAL Routine 11/15/2024 1:46 PM LIFE SKILLS EDUCATOR High risk medication use TB TEST, QUANTIFERON GOLD Routine 11/07/2024 3:55 PM LIFE SKILLS EDUCATOR High risk medication use DEXA AXIAL SKELETON [...] 3 or More Views (11/21/2024 2:04 PM LIFE SKILLS EDUCATOR) Anatomical Region Laterality Modality Upper Extremities, Hand Right Computed Radiography 11/21/2024 2:23 PM LIFE SKILLS EDUCATOR Addenda Addendum by Pipe Valdivia MD on 11/22/2024 12:50 PM LIFE SKILLS EDUCATOR ADDENDUM: Progressive polyarticular erosions involving the bilateral hands and wrists, most prominent in the carpus bilaterally. This is consistent with progressive inflammatory arthritis in this patient with known rheumatoid arthritis. Electronically signed by: Pipe Valdivia MD Impressions 11/21/2024 2:23 PM LIFE SKILLS EDUCATOR 1. Healing fracture of the left 4th metacarpal shaft with shortening and mild ulnar displacement. 2. Polyarticular erosions involving the bilateral hands and wrists, most prominent in the carpus bilaterally. This is consistent with inflammatory arthritis. Statistically, this is most likely due to rheumatoid arthritis. Electronically signed by: Pipe Valdivia MD Narrative 11/21/2024 2:23 PM LIFE SKILLS EDUCATOR EXAMINATION: XR WRIST LEFT 3 OR MORE [...] 3 or More Views (11/21/2024 2:04 PM LIFE SKILLS EDUCATOR) Anatomical Region Laterality Modality Upper Extremities, Hand Left Computed Radiography 11/21/2024 2:23 PM LIFE SKILLS EDUCATOR Addenda Addendum by Pipe Valdivia MD on 11/22/2024 12:50 PM LIFE SKILLS EDUCATOR ADDENDUM: Progressive polyarticular erosions involving the bilateral hands and wrists, most prominent in the carpus bilaterally. This is consistent with progressive inflammatory arthritis in this patient with known rheumatoid arthritis. Electronically signed by: Pipe Valdivia MD Impressions 11/21/2024 2:23 PM LIFE SKILLS EDUCATOR 1. Healing fracture of the left 4th metacarpal shaft with shortening and mild ulnar displacement. 2. Polyarticular erosions involving the bilateral hands and wrists, most prominent in the carpus bilaterally. This is consistent with inflammatory arthritis. Statistically, this is most likely due to rheumatoid arthritis. Electronically signed by: Pipe Valdivia MD Narrative 11/21/2024 2:23 PM LIFE SKILLS EDUCATOR EXAMINATION: XR WRIST LEFT 3 OR MORE [...] 3 or More Views (11/21/2024 2:04 PM LIFE SKILLS EDUCATOR) Anatomical Region Laterality Modality Upper Extremities, Wrist Right Compute d Radiography 11/21/2024 2:23 PM LIFE SKILLS EDUCATOR Addenda Addendum by Pipe Valdivia MD on 11/22/2024 12:50 PM LIFE SKILLS EDUCATOR ADDENDUM: Progressive polyarticular erosions involving the bilateral hands and wrists, most prominent in the carpus bilaterally. This is consistent with progressive inflammatory arthritis in this patient with known rheumatoid arthritis. Electronically signed by: Pipe Valdivia MD Impressions 11/21/2024 2:23 PM LIFE SKILLS EDUCATOR 1. Healing fracture of the left 4th metacarpal shaft with shortening and mild ulnar displacement. 2. Polyarticular erosions involving the bilateral hands and wrists, most prominent in the carpus bilaterally. This is consistent with inflammatory arthritis. Statistically, this is most likely due to rheumatoid arthritis. Electronically signed by: Pipe Valdivia MD Narrative 11/21/2024 2:23 PM LIFE SKILLS EDUCATOR EXAMINATION: XR WRIST LEFT 3 OR MORE [...] 3 or More Views (11/21/2024 2:04 PM LIFE SKILLS EDUCATOR) Anatomical Region Laterality Modality Upper Extremities, Wrist Left Compute d Radiography 11/21/2024 2:23 PM LIFE SKILLS EDUCATOR Addenda Addendum by Pipe Valdivia MD on 11/22/2024 12:50 PM LIFE SKILLS EDUCATOR ADDENDUM: Progressive polyarticular erosions involving the bilateral hands and wrists, most prominent in the carpus bilaterally. This is consistent with progressive inflammatory arthritis in this patient with known rheumatoid arthritis. Electronically signed by: Pipe Valdivia MD Impressions 11/21/2024 2:23 PM LIFE SKILLS EDUCATOR 1. Healing fracture of the left 4th metacarpal shaft with shortening and mild ulnar displacement. 2. Polyarticular erosions involving the bilateral hands and wrists, most prominent in the carpus bilaterally. This is consistent with inflammatory arthritis. Statistically, this is most likely due to rheumatoid arthritis. Electronically signed by: Pipe Valdivia MD Narrative 11/21/2024 2:23 PM LIFE SKILLS EDUCATOR EXAMINATION: XR WRIST LEFT 3 OR MORE [...] due to rheumatoid arthritis. Electronically signed by: iPpe Valdivia MD Marialuisa Franklin NP IMG XR PROCEDURES Edited R esult - Final * eGFR (11/15/2024 1:46 PM LIFE SKILLS EDUCATOR) eGFR 67 >=60 mL/min/1. 73 m2 Comment: [...] last reviewed 2021. Blood 11/15/2024 1:46 PM LIFE SKILLS EDUCATOR 11/15/2024 2:48 PM LIFE SKILLS EDUCATOR us Marialuisa Franklin DIE CAST SUPERVISOR LAB BLOOD ORDERABLES Final Result [facility] [place] [address] * Differential, auto (11/15/2024 1:46 PM LIFE SKILLS EDUCATOR) Neutrophil abs 3.2 1.5 - 6.5 K/cumm Imm gran abs 0.0 0.0 - 0.1 K/cumm [facility] Lymphocyte abs 1.1 0.8 - 3.3 K/cumm [facility] Monocyte abs 0.6 0.2 - 0.8 K/cumm [facility] Eosinophil abs 0.1 0.0 - 0.5 K/cumm [facility] Basophil abs 0.1 0.0 - 0.1 K/cumm [facility] Neutrophil pct 63.6 % [facility] Comment: Interpretive Data Percent cell count reference ranges are not reported, since discordance with absolute values may lead to misinterpretation of CBC data. Current Interpretive Data was last revised on 2018. Imm gran pct 0.4 % [facility] Comment: Interpretive Data Percent cell count reference ranges are not reported, since discordance with absolute values may lead to misinterpretation of CBC data. Current Interpretive Data was last revised on 2018. Lymphocyte pct 21.4 % [facility] Comment: Interpretive Data Percent cell count reference ranges are not reported, since discordance with absolute values may lead to misinterpretation of CBC data. Current Interpretive Data was last revised on 2018. Monocyte pct 11.4 % [facility] Comment: Interpretive Data Percent cell count reference ranges are not reported, since discordance with absolute values may lead to misinterpretation of CBC data. Current Interpretive Data was last revised on 2018. Eosinophil pct 2.0 % [facility] Comment: Interpretive Data Percent cell count reference ranges are not reported, since discordance with absolute values may lead to misinterpretation of CBC data. Current Interpretive Data was last revised on 2018. Basophil pct 1.2 % [facility] Comment: Interpretive Data Percent cell count reference ranges are not reported, since discordance with absolute values may lead to misinterpretation of CBC data. Current Interpretive Data was last revised on 2018. Blood 11/15/2024 1:46 PM LIFE SKILLS EDUCATOR 11/15/2024 1:59 PM LIFE SKILLS EDUCATOR Marialuisa Franklin DIE CAST SUPERVISOR LAB BLOOD ORDERABLES Final Result [facility] [place] [address] * CBC with auto differential (11/15/2024 1:46 PM LIFE SKILLS EDUCATOR) WBC 5.0 3.8 - 9.9 K/cumm Hgb 13.7 11.9 - 15.5 g/dL [facility] Hct 41.1 35.6 - 45.5 % [facility] Plt 256 150 - 400 K/cumm [facility] MPV 11.0 9.1 - 12.3 fL [facility] RBC 4.32 3.90 - 5.20 M/cumm [facility] MCV 95.1 81.3 - 96.4 fL [facility] MCH 31.7 27.1 - 33.3 pg [facility] MCHC 33.3 32.3 - 35.7 g/dL [facility] RDW CV 13.3 11.1 - 14.9 % [facility] RDW SD 47.1 35.7 - 48.1 fL [facility] NRBC abs 0.00 0.00 - 0.01 K/cumm [facility] Blood 11/15/2024 1:46 PM LIFE SKILLS EDUCATOR 11/15/2024 1:59 PM LIFE SKILLS EDUCATOR us Marialuisa Franklin NP LAB BLOOD ORDERABLES Final Result [facility] [place] [address] * Comprehensive metabolic panel (11/15/2024 1:46 PM LIFE SKILLS EDUCATOR) Sodium 139 135 - 145 mmol/L Potassium, pl 4.5 3.3 - 4.9 mmol/L [facility] Chloride 103 97 - 110 mmol/L [facility] CO2 26 22 - 32 mmol/L [facility] Anion gap 10 2 - 15 mmol/L [facility] BUN 15 6 - 25 mg/dL [facility] Creatinine 0.92 0.60 - 1.10 mg/dL [facility] Glucose 105 70 - 199 mg/dL [facility] Comment: Interpretive Data Fasting glucose >/= 126 [...] 2022. Calcium 9.5 8.5 - 10.3 mg/dL [facility] Bilirubin, total 0.3 0.1 - 1.2 mg/dL [facility] Protein, pl 7.1 6.5 - 8.5 g/dL [facility] Albumin 4.3 3.5 - 5.0 g/dL [facility] Alk phos 121 40 - 130 Units/L [facility] ALT 19 7 - 45 Units/L [facility] AST 22 10 - 45 Units/L [facility] Blood 11/15/2024 1:46 PM LIFE SKILLS EDUCATOR 11/15/2024 2:48 PM LIFE SKILLS EDUCATOR us Marialuisa Franklin NP LAB BLOOD ORDERABLES Final Result [facility] [place] [address] * TB test, quantiferon gold (11/07/2024 3:55 PM LIFE SKILLS EDUCATOR) [facility] QuantiFERON(R)-T B Gold Plus, 1 Tube [...] T-lymphocytes. For additional information, please refer to https://education.[employer].Epitiro/faq/ENQ660 (This link is being provided for informational/ educational purposes only.) Blood 11/07/2024 3:55 PM LIFE SKILLS EDUCATOR 11/07/2024 3:56 PM LIFE SKILLS EDUCATOR us Marialuisa Farnklin NP LAB BLOOD ORDERABLES Final Result [facility] [address] [address] [phone] * Dexa Axial Skeleton Bone Density 1 or 2 Site (03/08/2024 9:24 AM CDT) Anatomical Region Laterality Modality Body N/A Radiographic Erna ging Narrative 03/08/2024 9:48 PM CDT Patient Name: Sheri Shin Date of : 1955 Date of scan: 03/08/2024 Bone mineral density was performed on a Holo[employer] Discovery Densitometer. Based on machine cross-calibration and [...] by the International Society of Clinical Densitometry. [id number] Marialuisa Franklin NP IMG DXA PROCEDURES Final R esult * Hepatitis panel, acute (05/24/2020 9:45 AM CDT) Hep A IgM Nonreactive Nonreactive [facility] Comment: Interpretive Data: If Hep A IgM Ab is reported as Equivocal, a new sample should be drawn in two weeks for testing. Current interpretive data was last revised on 19. Hep B core IgM Nonreactive Nonreactive [facility] Comment: Interpretive Data If HepB Core IgM Ab is reported as Equivocal, a new sample should be drawn in two weeks for testing. Current interpretive data was last revised on 19. Hep C Ab Nonreactive Nonreactive [facility] Comment:Antibodies to HCV no t detected. Does NOT exclude the possibility of recent exposure to HCV. HepBsAg Nonreactive Nonreactive [facility] Blood specimen (specimen) 05/24/2020 9:45 AM CDT 05/24/2020 12:08 PM CDT Marialuisa Franklin NP LAB MICROBIOLOGY - GENERAL ORDERABLES Edited Result - Final [facility] Department [place] [address] from Last 3 Months or Most Recently Relevant to Health Maintenance Insurance [facility] MEDICARE [employer] [facility] MEDICARE MEDICARE [facility] Address: [address] [address] [place] [address] MEDICARE SOLUTIONS [facility] Address: [address] [address] [place] [address] Care Teams Authorizer Relationship Specialty Start Date End Date Kerry Coffman DO [address] [place] [id number] PCP - General Internal Medicine 04/19/24
[2024-12-17] MEDS: LACTATED RINGERS 1,000 ML 999 ML IV CONT (13:08)
[2024-12-17 13:39] LABS: Prothrombin Time 13.5 Seconds (11.1-14.7)
[2024-12-17 13:40] LABS: Partial Thromboplastin Time 29.3 Seconds (22.3-36.8)
[2024-12-17 13:47] LABS: Ammonia 10 umol/L (9-30); Ethanol < 10 mg/dL (<10)
[2024-12-17 13:51] VITALS: PULSE 59; RESP 16; O2SAT 97
[2024-12-17 14:13] VITALS: BP 112/72; BP 125/82; PULSE 58; PULSE 59
[2024-12-17 14:14] VITALS: BP 108/58; PULSE 63
[2024-12-17 14:44] LABS: Add Urine Microscopic? NO; Appearance Urine Clear (Clear); Bilirubin Urine Negative (Negative); Blood Urine Negative (Negative); Color Urine Yellow (Yellow); Glucose Urine UA Negative (Negative); Ketones Urine Negative (Negative); Leukocyte Esterase Ur Negative LEU/UL (Negative); Nitrate Urine Negative (Negative); Protein Urine Negative (Negative); Specific Grav Ur 1.006 (1.001-1.035); Urobilinogen Urine 0.2 mg/dL (<2.0)
[2024-12-17 15:00] LABS: Amphetamine Screen Urine Negative (Negative); Barbiturate Screen Urine Positive (Negative); Benzodiazepines Screen Urine Negative (Negative); Cannabinoid Screen Urine Negative (Negative); Cocaine Screen Urine Negative (Negative); Methadone Screen Urine Negative (Negative); Opiate Screen Urine Negative (Negative); Phencyclidine Screen Urine Negative (Negative)
--- NOTE | 2024-12-17 15:37 | ED.WEAKNESS ---
HPI - Weakness General Chief complaint: Weakness Stated complaint: weakness Time Seen by Provider: 12/17/24 12:22 Source: patient, EMS, RN notes reviewed and old records reviewed Mode of arrival: EMS Limitations: no limitations History of Present Illness HPI Narrative: This is a 69 year old female with history of migraines, bipolar, rheumatoid arthritis who presents for evaluation of falls. She reports she has chronic history of frequent falls and today she had 2 falls. She states that she was on her knees and she fell over and she had difficulty getting up. She reports she has trouble getting up on her own chronically. She does not think she hit her head. She does reports having brain surgery to have neurotransmitters placed for tremors 3 years ago. She denies focal weakness. She denies chest pain, abdominal pain, vomiting or diarrhea. She takes alot of medications and she reports a medication dosage was increased recently. She also reports that she took a clonazepam this morning. She has a roommate who thought patient's speech was slurred. Her sister also reports last night her speech was slurred like someone who was intoxicated. PAtient denies drinking alcohol. Related Data Home Medications ?Medication ?Instructions ?Recorded ?Confirmed ?Last Taken ?Type atorvastatin 20 mg tablet 1 mg PO DAILY 05/01/21 10/07/24 Unknown History gabapentin 100 mg capsule 2 mg PO HS 05/01/21 10/07/24 Unknown History lamotrigine 200 mg tablet 1 mg PO BID 05/01/21 10/07/24 Unknown History primidone 50 mg tablet 4 mg PO BID 05/01/21 07/21/24 Unknown History propranolol 120 mg capsule,24 1 mg PO DAILY 05/01/21 10/07/24 Unknown History hr,extended release sertraline 100 mg tablet 1 mg PO DIRECTED 05/01/21 10/07/24 Unknown History clonazepam 0.5 mg tablet 0.5 mg PO DAILY 12/08/21 10/07/24 Unknown History loratadine 10 mg tablet 10 mg PO DAILY 12/08/21 07/21/24 Unknown History sumatriptan succinate 100 mg tablet 100 mg PO DAILY 12/08/21 10/07/24 Unknown History calcium 300 mg-D3 20 mcg-magnesium 1 tablet PO DAILY 02/03/23 10/07/24 Unknown History 25 mg-coppr 0.5 [id number] tablet (Caltrate-D3 Plus Minerals) cyclobenzaprine 10 mg tablet 10 mg PO .pm PRN Pain, Moderate 02/03/23 10/07/24 Unknown History omeprazole 20 mg capsule,delayed 20 mg PO DAILY 02/03/23 07/21/24 Unknown History release azathioprine 50 mg tablet 25 mg PO DAILY 04/18/24 10/07/24 Unknown History alendronate 70 mg tablet 70 mg PO DAILY 07/21/24 10/07/24 Unknown History aripiprazole 2 mg tablet 2 mg PO DAILY 07/21/24 10/07/24 Unknown History fluticasone propionate 50 2 spray intranasal DAILY 07/21/24 07/21/24 Unknown History mcg/actuation nasal spray,suspension peg 3350-electrolytes 236 See Rx Instructions .Route .COMPLEX 07/21/24 07/21/24 Unknown History gram-22.74 gram-6.74 gram-5.86 gram solution Allergies Allergy/AdvReac Type Severity Reaction Status Date / Time Penicillins Allergy Severe Swelling Verified 12/14/24 14:36 Sulfa (Sulfonamide Allergy Intermediate Rash Verified 12/14/24 14:36 Antibiotics) [facility] Past Medical History Medical History Restless leg syndrome Rheumatoid arthritis Arthritis Osteoporosis History of UTI Constipation Diarrhea High cholesterol History of falling Memory loss Chronic headaches Rib fracture Hx of migraines Diabetes Bipolar disorder Depression Anxiety Menopause History of alcohol abuse Sober for 9 years Bipolar depression Tremor hands HLD (hyperlipidemia) Surgical History Surgical History History of tonsillectomy History of hand surgery Left History of foot surgery Right x2 Family History Family History Father , Data 97 related to pneumonia Alzheimers disease Mother , Related to fall, Heart disease Unknown Hypertension Heart disease Diabetes mellitus High cholesterol Depression Arthritis Alcoholism Social History Social History Smoking packs per day: 2 Smoking cigarettes per day: 40.0 Years smoked: 24 Smoking pack-years: 48.00 Smoking status: Former smoker Tobacco type: cigarettes Second hand tobacco smoke exposure: No Smoking end date: 01/01/97 Alcohol intake: former 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od: Never True Current Housing: I Have Housing Concerned About Future Housing: No Difficulty Paying Gas/Electric Bills: No Difficulty Paying for Meds: No Currently Unemployed: No Education: Master's Degree or Higher Difficulty w/ Childcare or Family Care: No Living arrangements: with roommate(s) Additional occupation/education comments: Disable Gender identity (if verbalized by the patient): Female Sexual Orientation (if Verbalized by the Patient): Straight or Heterosexual Exam Const: General: no acute distress and alert Nutritional Appearance: well nourished Orientation/consciousness: patient oriented x3 HENMT: Head: normal to inspection Face and sinus: normal facial exam Eyes: EOM: EOMs intact bilaterally Chest: Chest palpation & inspection: normal inspection of the chest Resp: Effort & Inspection: normal respiratory effort Auscultation: clear to auscultation bilaterally Cardio: Rate: regular rate Rhythm: regular rhythm Heart sounds: no murmurs GI: GI Palp: Yes Soft to palpation, No Tenderness to palpation present (GI), No Guarding due to palpation present (GI) and No Rigid due to palpation Auscultation: normal bowel sounds Skin: General skin exam: normal color Neuro: General: patient oriented x3, moves all extremities, no meningeal signs, no focal motor deficits and CN's II-XI intact bilaterally Cranial nerves: Yes Nystagmus not present Other: speech seems slow, no aphasia Extrem: General: normal to inspection Psych: Mental Status: mental status grossly normal Affect: normal affect Attitude: cooperative Course Reevaluation(s) Reevaluation #1: I Discussed with patient and family that labs did not show any significant abnormalities. She was able to ambulate without any difficulty. Her speech is clear I suspect her symptoms are related to medication interactions. PAtient has having urinary retention . She declines vazquez catheter. Date: 12/17/24 Time: 15:43 Vital Signs Vital signs: Vital Signs Temperature 97.6 F 12/17/24 11:49 Pulse Rate 65 12/17/24 11:49 Respiratory Rate 16 12/17/24 11:49 Blood Pressure 104/67 12/17/24 11:49 Pulse Oximetry 96 12/17/24 11:49 Oxygen Delivery Room Air 12/17/24 11:49 Temperature 97.6 F 12/17/24 11:49 Pulse Rate 63 12/17/24 14:14 Respiratory Rate 16 12/17/24 13:51 Blood Pressure 108/58 L 12/17/24 14:14 Pulse Oximetry 97 12/17/24 13:51 Oxygen Delivery Room Air 12/17/24 11:49 MDM - Weakness Differential Diagnosis Differential diagnosis: Likely acute myocardial infarction, anemia, hypothyroidism, sepsis and dehydration Medical Records Attestation: I reviewed the patient's medical records. Lab Data Attestation: I reviewed the patient's lab results. 12/17/24 12:04 12/17/24 12:04 Labs: Lab Results 12/17/24 12/17/24 12/17/24 Range/Units 12:04 13:18 14:22 WBC 4.5 (4.5-10.0) K/mm3 RBC 4.09 L (4.2-5.4) M/mm3 Hgb 12.7 (12.0-15.0) g/dL Hct 38.3 (37.0-47.0) % MCV 93.6 (80-100) fl MCH 31.1 (26-34) pg MCHC 33.2 (32-36) g/dl RDW 13.5 (11.5-14.5) % Plt Count 242 (150-375) k/mm3 MPV 9.3 (7.4-10.4) fl Immature Gran % (Auto) 0.2 (0-0.5) % Neut % (Auto) 67.4 (45.5-73.1) % Lymph % (Auto) 20.7 (18.3-44.2) % [place] % (Auto) 8.2 (2.6-8.5) % Eos % (Auto) 2.4 (0-4.4) % Baso % (Auto) 1.1 (0.2-1.2) % Lymph # (Auto) 0.93 (0.9-3.2) K/mm3 [place] # (Auto) 0.4 (0.1-0.6) K/mm3 Eos # (Auto) 0.1 (0-0.3) K/mm3 Baso # (Auto) 0.1 (0.0-0.1) K/mm3 Abs Immat Gran (auto) 0.01 (0.00-0.031) K/mm3 Absolute Neuts (auto) 3.0 (1.3-6.7) K/mm3 Absolute Nucleated RBC 0.000 (0.0-0.012) K/mm3 Nucleated RBC % 0.0 (0.0-0.2) % PT 13.5 (11.1-14.7) Seconds INR 1.0 APTT 29.3 (22.3-36.8) Seconds Sodium 137 (137-145) mmol/L Potassium 4.4 (3.4-5.0) mmol/L Chloride 101 (98-107) mmol/L Carbon Dioxide 25 (22-30) mmol/L Anion Gap 11 (4-12) mmol/L BUN 16 (7-17) mg/dL Creatinine 0.70 (0.7-1.0) mg/dL Estim Creat Clear Calc 61 ml/min Estimated GFR > 60 (59 - ) Glucose 119 H (65-110) mg/dL Calcium 8.9 (8.4-10.2) mg/dL Total Bilirubin 0.4 (0.2-1.3) mg/dL AST 27 (14-36) U/L ALT 40 H (6-35) U/L Alkaline Phosphatase 112 (38-126) U/L Ammonia 10 (9-30) umol/L Total Protein 7.0 (6.3-8.2) g/dL Albumin 4.1 (3.5-5.1) g/dL Urine Color Yellow (Yellow) Urine Appearance Clear (Clear) Urine pH 7.0 (5.0-9.0) Ur Specific [place] 1.006 (1.001-1.035) Urine Protein Negative (Negative) mg/dL Urine Glucose (UA) Negative (Negative) mg/dL Urine Ketones Negative (Negative) mg/dL Ur Blood (Man) Negative (Negative) Urine Nitrate Negative (Negative) Urine Bilirubin Negative (Negative) Urine Urobilinogen 0.2 (<2.0) mg/dL Leukocyte Esterase Rfl Negative (Negative) KYLIE/UL Urine Opiates Screen Negative (Negative) Urine Methadone Screen Negative (Negative) Ur Barbiturates Screen Positive A (Negative) Ur Phencyclidine Scrn Negative (Negative) Ur Amphetamine Screen Negative (Negative) U Benzodiazepines Scrn Negative (Negative) Urine Cocaine Screen Negative (Negative) U Cannabinoids Screen Negative (Negative) Ethyl Alcohol < 10 (<10) mg/dL Imaging Data Radiologist's impression: ITS Impressions Chest X-Ray 12/17/24 12:34 IMPRESSION: 1. No acute cardiopulmonary disease. Head CT 12/17/24 13:45 IMPRESSION: 1. No acute intracranial pathology. ECG Data EKG #1: Attestation: I personally reviewed and interpreted this ECG as follows: ECG completion date: 12/17/24 ECG completion time: 12:23 Interpretation: baseline artifact due to neurotransmitter EKG Interpretation: normal rate, sinus rhythm, no ST changes and NL axis Discharge Plan Discharge Clinical Impression: Weakness, Frequent falls Patient Disposition: Home, Self-Care Condition: Stable Instructions: Antibiotic Form, Chronic Urinary Retention in Women (ED), Weakness (ED) Additional Instructions: I recommend that you follow up with your primary care provider and a urologist. I think your medications may be causing your frequent falls. Patient Language: Mongolian Prescriptions: No Action azathioprine 50 mg tablet 25 mg PO DAILY alendronate 70 mg tablet 70 mg PO DAILY fluticasone propionate 50 mcg/actuation spray,suspension 2 spray INTRANASAL DAILY aripiprazole 2 mg tablet 2 mg PO DAILY peg 3350-electrolytes 236-22.74-6.74 -5.86 gram recon soln See Rx Instructions .ROUTE .COMPLEX Rx Instructions: Rx primidone 50 mg tablet 4 mg PO BID atorvastatin 20 mg tablet 1 mg PO DAILY lamotrigine 200 mg tablet 1 mg PO BID sertraline 100 mg tablet 1 mg PO DIRECTED gabapentin 100 mg capsule 2 mg PO HS propranolol 120 mg capsule,extended release 24 hr 1 mg PO DAILY sumatriptan succinate 100 mg tablet 100 mg PO DAILY loratadine 10 mg tablet 10 mg PO DAILY clonazepam 0.5 mg tablet 0.5 mg PO DAILY azithromycin 250 mg tablet See Rx Instructions .ROUTE .COMPLEX Qty: 6 0RF Rx Instructions: For 250 mg dose pack: take 500 mg today (day 1), then 250 mg for 4 days (days 2-5) prednisone 20 mg tablet 40 mg PO DAILY 5 Days Qty: 10 0RF albuterol sulfate 90 mcg/actuation HFA aerosol inhaler 2 puff inhalation Q4-6H PRN (Reason: shortness of breath or wheezing) 30 Days Qty: 8.5 0RF Caltrate-D3 Plus Minerals 300 mg-800 unit -25 mg-0.5 mg tablet 1 tablet PO DAILY cyclobenzaprine 10 mg tablet 10 mg PO .pm PRN (Reason: Pain, Moderate) omeprazole 20 mg capsule,delayed release(DR/EC) 20 mg PO DAILY Follow-up/Referrals: Evert Newberry MD [Physician] - PHYSICIAN NOT ON STAFF,NONSTAFF [Primary Care Provider] -
== END 2024-12-17 16:35 | disposition home or self-care (01) ==
PROVIDERS: Emergency Medicine; Emergency Provider General Practice
DX: R53.1 Weakness (principal); R29.6 Repeated falls; E11.9 Type 2 diabetes mellitus without complications; E78.00 Pure hypercholesterolemia, unspecified; M06.9 Rheumatoid arthritis, unspecified; M81.0 Age-related osteoporosis without current pathological fracture; G25.81 Restless legs syndrome; F41.9 Anxiety disorder, unspecified; F31.9 Bipolar disorder, unspecified; Z96.82 Presence of neurostimulator; Z87.440 Personal history of urinary (tract) infections; Z87.891 Personal history of nicotine dependence; Z79.899 Other long term (current) drug therapy
CPT/HCPCS: 36415; 70450; 71045; 80053; 80307; 81003; 82077; 82140; 85025; 85610; 85730; 93005; 96360; 99284; J7120

== ENCOUNTER 2024-12-21 00:46 | Day surgery (SDC) | payer MEDICARE, SELFPAY ==
[2024-12-20 15:29] VITALS: BMI 24.2
--- NOTE | 2024-12-20 15:46 | PC.NURSE ---
Report to the Outpatient Waiting Room, entrance under the green pavilion located off [facility], at time __3:00pm on date _12/21/24 . Planned Procedure Time: _5:00pm .? Time changes happen often and if your time is changed the preop area will call you the afternoon before. - You and your visitor will be asked to self-screen and do not enter if you have any COVID symptoms. Please call surgeon if you need to reschedule. - A mask is optional within the hospital at this time. Patients No food or drink- 8hrs until time of surgery and no smoking, or chewing tobacco (or any form of nicotine). No chewing gum, candy or mints. (0900am last time to eat or drink) Take only the following medications with a SIP of water on the morning of surgery: ___Sertaline, Propanalol, Gabapentin, Lamotrigene, and Clonazepam DO NOT STOP ANY OF YOUR OTHER PRESCRIPTION MEDICATIONS PRIOR TO SURGERY EXCEPT THE FOLLOWING Medications to discontinue per physician None Date to take last dose___None Please no make-up, nail hungarian, hairspray, perfume, deodorant, or body powder the day of surgery.? No jewelry (including any body piercings) or valuables the day of surgery, leave them at home.? Please take a shower or bath the night before, or the morning of, surgery with an antibacterial soap.? Wear comfortable, loose fitting clothing.? - Jewelry must be removed prior to entering the operating room.? Rings and piercings that are not removed may be cut off. - The hospital will not accept responsibility for valuables.? - Please leave all valuables, including medications, at home the day of surgery. If you are going home after surgery, a licensed petrol tanker driver must drive you home.? - NO public transportation without another adult if you receive anesthesia. - We recommend that an adult stay with you for 24 hours following discharge. - We also recommend that you do not drive, make important decision, drink alcoholic beverages, or take any drugs that were not prescribed by your health care provider for at least 24 hours after your discharge time. Follow any additional instructions given to you from your surgeon. Telephone instructions given to __Patient and asked if any additional questions and then verbalized understanding. Patient advised to call surgeon office or pre surgery nurse liaison [phone] if any additional questions.
[2024-12-21] VITALS (8 sets, daily range): BP systolic 115–138; BP diastolic 66–99; PULSE 65–68; RESP 12–18; TEMP 36.1–36.3; O2SAT 96–100; BMI 24.1
--- NOTE | ~2024-12-21 | XR_ITS ---
EXAMINATION: XR surgery orthopedic DATE: 12/21/2024 15:47 INDICATION: Left fourth metacarpal fracture. TECHNIQUE: 10 intraoperative fluoroscopic views of the left hand were obtained. I wasn't present. Flu oroscopy exposure time was 43 seconds. COMPARISON: Left hand radiographs 12/13/2024, 09/30/2024 FINDINGS: There is a comminuted fracture of head, neck, and diaphysis of fourth metacarpal with callu s formation. The main distal fracture fragment demonstrates 1 cortical width ulnar and dorsal displac ement and 5 degrees palmar angulation. Fixation is seen with 2 percutaneous wires. IMPRESSION: 1. Comminuted fracture of fourth metacarpal with wire fixation. Reviewed, dictated and finalized at location B.
--- OUTSIDE RECORDS SUMMARY | 2024-12-21 00:49 | XMS_ITS | Referral Summary ---
Author Organization [facility] Address [address] [place] [address] Care Team Providers Care Aircraft Power Plant Assembler Name Role Phone Kerry Coffman DO Primary Care Provider [phone] Source Comments [facility],non-owned Affiliates and Associated Physician Practices is amultiple site organization consisting of ambulatory clinics and hospital sitesin [place], [place], [place] and [place]. This disclosure is being madepursuant to the Care Everywhere program and may not contain all information available regarding this patient. Last updated 18.[facility] Encounters Date Type Department Care Team Description 12/19/2024 Telephone [facility] - Endocrinology [address], [place] [phone] Haydee Simmons RN Results 12/13/2024 Orders Only [facility] - Neurology [address], [facility] [place] [address] Moncho Salcedo APRN-PIG MACHINE OPERATOR Cognitive decline 12/08/2024 Travel 12/08/2024 7:08 AM RADIO ENGINEER - 12/08/2024 9:16 AM RADIO ENGINEER Hospital Encounter [facility] DIAGNOSTIC RAD [address] [place] [address] Cornelio Lima MD Discharge Disposition: Home or Self Care 12/08/2024 9:17 AM RADIO ENGINEER - 12/08/2024 11:59 PM RADIO ENGINEER Hospital Encounter [facility] CAT SCAN [address] [place] [address] Cornelio Lima MD Discharge Disposition: Home or Self Care 12/08/2024 9:17 AM RADIO ENGINEER - 12/08/2024 11:59 PM RADIO ENGINEER Hospital Encounter [facility] CAT SCAN [address] [place] [address] Cornelio Lima MD Discharge Disposition: Home or Self Care 11/28/2024 Telephone [facility] - Neurology [address] [place] [phone] Moncho Salcedo WIRELESS ENGINEER-PIG MACHINE OPERATOR Medication Prior Auth Request (Emgality) 11/23/2024 10:58 AM RADIO ENGINEER - 11/23/2024 11:59 PM RADIO ENGINEER Hospital Encounter [facility] DIAGNOSTIC RAD [address]SM [address] [place] [address] Cornelio Lima MD Discharge Disposition: Home or Self Care 11/23/2024 10:58 AM RADIO ENGINEER - 11/23/2024 11:59 PM RADIO ENGINEER Hospital Encounter [facility] DIAGNOSTIC RAD [facility] [address] [address] Cornelio Lima MD Discharge Disposition: Home or Self Care 11/23/2024 9:49 AM RADIO ENGINEER - 11/23/2024 10:57 AM RADIO ENGINEER Hospital Encounter [facility] DIAGNOSTIC RAD [address] [address] [address] Cornelio Lima MD Discharge Disposition: Home or Self Care 11/23/2024 Travel 11/23/2024 10:00 AM RADIO ENGINEER Office Visit [facility] - Orthopedics [address] [place] [phone] Cornelio Lima MD Lumbar spine pain (Primary Dx); Lumbar spondylosis; Spondylolisthesis of lumbar region; Degenerative scoliosis in adult patient; Cervical spondylosis with myelopathy; Cervicalgia 11/14/2024 Telephone [facility] - Neurology [address] [place] [phone] NathalieuMoncho, WIRELESS ENGINEER-PIG MACHINE OPERATOR Medication Clarification (Emgaltiy) 11/11/2024 Travel 11/11/2024 10:00 AM RADIO ENGINEER Anesthesia Event [facility] ENDOSCOPY [address] [place] [address] Doug Forrester MD Dobbs, Kristin L, APRN-GIANNI 11/11/2024 10:15 AM RADIO ENGINEER - 11/11/2024 11:00 AM RADIO ENGINEER Surgery [facility] ENDOSCOPY [address] [place] [address] Sixto Cornell MD COLONOSCOPY SCREEN--extended prep 11/11/2024 8:14 AM RADIO ENGINEER - 11/11/2024 11:24 AM RADIO ENGINEER Hospital Encounter [facility] OP [address] [place] [address] Sixto Cornell MD Surgery General Discharge Disposition: Home or Self Care 11/04/2024 Patient Outreach [facility] ENDOSCOPY [address] [place] [address] Samantha Monterroso RN 11/02/2024 Travel 11/02/2024 3:30 PM RADIO ENGINEER Office Visit [facility] - Neurology [address] [place] [address], [place] [address] Moncho Salcedo APRN-ARELY Intractable 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 (Primary Dx) 10/26/2024 Travel 10/26/2024 10:30 AM RADIO ENGINEER Office Visit [facility] - GI [address] [place] [address] Yolanda Greer APRN-ARELY Chronic diarrhea (Primary Dx) 10/25/2024 Orders Only [facility] ENDOSCOPY [address] [place] [address] Wendy Humphrey RN 10/24/2024 Travel 10/20/2024 Telephone [facility] - Centralized Scheduling [address] [place] [address] Moncho Salcedo APRN-CNP Appointment 10/06/2024 Orders Only [facility] DIAGNOSTIC RAD OP [address] [place] [phone] Alok Christie III, MD Spondylolisthesis at L4-L5 level 09/27/2024 Travel 09/27/2024 Telephone [facility] - Neurology [address], [place] [address] Rissa Vo MD Med Question from Last 3 Months Allergies Active Allergy [...] route every 30 days Active blood glucose ([employer]uch Ultra) test stripIndications:T ype 2 diabetes mellitus with hyperglycemia, without long-term current use of insulin (HCC) USE 1 STRIP TO CHECK GLUCOSE TWICE [...] rhinitis, unspecified seasonality, unspecified trigger,Chronic daily headache [place] 2 (two) sprays into each nostril once daily 16 g 6 08/11/2024 Active azelastine (Astelin) 0.1 % nasal sprayIndications:C hronic rhinitis,Allergic rhinitis, unspecified seasonality, unspecified trigger,Chronic daily headache [place] 1 (one) spray into each nostril 2 [...] hyperglycemia, without long-term current use of insulin ([facility]) Use 1 device as directed [...] Sex Assigned at Female 09/16/2024 2:41 PM RADIO ENGINEER Gender Identity Female 09/16/2024 2:41 PM RADIO ENGINEER Sexual Orientation Straight 09/16/2024 2: 41 PM RADIO ENGINEER Last Filed Vital Signs Vital Sign Reading Time Taken Comments Blood Pressure 114/82 12/08/2024 12:30 PM RADIO ENGINEER Pulse 59 12/08/2024 12:30 PM RADIO ENGINEER Temperature 36.6 C (97.8 F) 12/08/2024 10:30 AM RADIO ENGINEER Respiratory Rate 14 12/08/2024 12:30 PM RADIO ENGINEER Oxygen Saturation 96% 12/08/2024 12:30 PM RADIO ENGINEER Inhaled Oxygen Concentration - - Weight 66.9 kg (147 lb 8 oz) 12/08/2024 8:01 AM RADIO ENGINEER Height 167.6 cm (5' 6 ) 12/08/2024 8:01 AM RADIO ENGINEER Body Mass Index 23.81 12/08/2024 8:01 AM RADIO ENGINEER Functional Status Functional Status Response Date of [...] Office Visit [facility] - Orthopedics [address] [place] [address] Cornelio Lima MD [address] [place] [address] 01/25/2025 10:30 AM CDT Office Visit [facility] - GI [address] [place] [address] [place] [phone] Yolanda Greer, WIRELESS ENGINEER-PIG MACHINE OPERATOR [address] [place] [phone] 02/09/2025 11:15 AM CDT Office Visit [facility] - Ophthalmology [address] [place] [phone] Percy Matute MD [address] [place] [address] [place] [phone] 02/09/2025 4:00 PM CDT Office Visit [facility] - Allergy [address] [place] [phone] Papito Morales MD [address] [place] [address] 2L DIV OF ALLERGY/[place] [address] 03/02/2025 1:00 PM CDT Office Visit [facility] - Neurology [address] [place] [phone] Moncho Salcedo, WIRELESS ENGINEER-PIG MACHINE OPERATOR [address] [place] [address] 1[address] [place] [phone] 03/20/2025 11:00 AM CDT Office Visit [facility] - Internal Med [address] [place] [address], [place] [phone] Kerry Coffman DO [address] [place] [address] 2L DIV [place] [address] 04/13/2025 3:00 PM CDT Office Visit [facility] - Allergy [address] [place] [phone] Papito Morales MD [address] [place] [address] 2[address] DIV OF ALLERGY/[place] [address] Goals Goal Patient Goal Type Associated Problems Recent Progress Patient-Stated? Author Medication Management General On track( 025 10:42 AM RADIO ENGINEER) Marion Scott, RN Note: Expected end date: ongoing Interventions: Take all medications as prescribed Medical Devices Implanted Type Area Drier Tender Device Identifier Shelf Expiration Date Model / Serial / Lot Slnt Dura Duraseal Pg Trilysine Amine 5 Implanted:Qty: 1 on 03/17/2022 by Jackelyn Yang MD at [facility] Left: Cranial [employer] 08/11/2023 [id number] / / [id number] Guardian Branial [place] [address] Hole Cover Sys Implanted:Qty: 1 on 03/17/2022 by Jackelyn Yang MD at [facility] Left: Cranial [employer] 01/01/2024 6010 / / [id number] Directional Lead Implanted:Qty: 1 on 03/17/2022 by Shailesh North MD at [facility] Left: Cranial [employer] 09/25/2023 6172 / [id number] / Lead Extension Implanted:Qty: 1 on 03/24/2022 by Shailesh North MD at [facility] Left: Neck [employer] 01/15/2024 [id number] / / [id number] Generator Implanted:Qty: 1 on 03/24/2022 by Shailesh North MD at [facility] Left: Chest [employer] 11/19/2023 6662 / / [id number] [place] Spnl 140mm 6.35mm Ti Str Implanted:Qty: 1 on 08/29/2022 by Shailesh North MD at [facility] Right: Scalp [employer] 04/02/2024 6010 / / [employer] Dbs System Implanted:Qty: 1 on 08/29/2022 by Joshua Gill MD at [facility] Right: Brain 03/19/2024 6172 / [id number] / Description:cost per Levar [employer] Inf[employer] Dbs System Implanted:Qty: 1 on 08/29/2022 by Joshua Gill MD at [facility] Right: Chest Wall 04/23/2024 6373 / [id number] / Description:cost per levar Procedures Procedure Name Priority Date/Time Associated Diagnosis Comments FL MYELOGRAM 2 OR MORE REGIONS Routine 12/08/2024 10:27 AM RADIO ENGINEER Lumbar spine pain CT LUMBAR POST MYELOGRAM Routine 12/08/2024 10:25 AM RADIO ENGINEER Lumbar spine pain CT CERVICAL POST MYELOGRAM Routine 12/08/2024 10:25 AM RADIO ENGINEER Lumbar spine pain XR SPINE ENTIRE 2 OR 3VW Routine 11/23/2024 11:09 AM RADIO ENGINEER Lumbar spine pain XR CERVICAL SPINE 2 OR 3VW Routine 11/23/2024 11:06 AM RADIO ENGINEER Lumbar spine pain XR LUMBAR SPINE 2 OR 3VW Routine 11/23/2024 10:00 AM RADIO ENGINEER Lumbar spine pain PATHOLOGY TISSUE Routine 11/11/2024 10:1 6 AM RADIO ENGINEER Screen for colon cancer MD COLOREC CANC SCRN,SCOPY NOT HI RISK 11/11/2024 9:55 AM RADIO ENGINEER Screen for colon cancer ENDOSCOPY, COLON, SCREENING Routine 11/11/2024 9:52 AM RADIO ENGINEER GLUCOSE - POINT OF CARE Routine 11/11/2024 9:19 AM RADIO ENGINEER CALPROTECTIN FECAL Routine 11/07/2024 3: 52 PM RADIO ENGINEER Chronic diarrhea CULTURE STOOL PANEL Routine 11/07/2024 3 :52 PM RADIO ENGINEER Chronic diarrhea C DIFFICILE CYTOTOXIN Routine 11/07/2024 3:51 PM RADIO ENGINEER Chronic diarrhea PROC DEEP BRAIN STIMULATOR Routine 11/03/2024 2:08 PM RADIO ENGINEER Intractable 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 COMPREHENSIVE METABOLIC PANEL Routine 07/20/2024 11:49 AM [...] 2 or More Regions (12/08/2024 10:27 AM RADIO ENGINEER) Anatomical Region Laterality Modality Spine Digital Radiogra phy 12/08/2024 1:17 PM RADIO ENGINEER Impressions 12/13/2024 12:15 PM RADIO ENGINEER IMPRESSION: 1.Successful lumbar puncture for cervical [...] degenerative disc and joint disease as detailed qdogj-qh-wqwyz above, worse at L4-L5, as outlined. 2.Transitional anatomy as noted above. The report is dictated by Addi Arambula MD, (assistant professor of radiology) Attending Physician: Dr. Magdalena Blackmon [employer] [place]: Dr. Addi Arambula MD, (assistant professor of radiology) The procedure was performed by the: The hearing and speech assistant, and the attending radiologist was present [...] 12/13/2024 12:15 PM Narrative 12/13/2024 12:15 PM RADIO ENGINEER PROCEDURE: FL MYELOGRAM 2 OR MORE REGIONS, CT LUMBAR POST MYELOGRAM, CT CERVICAL POST MYELOGRAM DATE/TIME OF EXAM: 12/08/2024 10:34 AM CLINICAL INFORMATION: PROCEDURE: FL MYELOGRAM 2 OR MORE REGIONS, CT LUMBAR POST MYELOGRAM, CT CERVICAL POST MYELOGRAM, DATE/TIME OF EXAM: 12/08/2024 10:34 AM, LOCATION [facility] INDICATION: M54.50: Lumbar spine pain ADDITIONAL CLINICAL INFORMATION: Ordering Provider Reason For Exam: myelopathy (accession [id number]), chronic low back pain (accession [id number]) Technologist Note: None. Additional: None. EXAMINATION: 1.Lumbar [...] was then transferred to the personal care service provider unit for further observation and 2 [...] no high-grade central canal stenosis. There is epcb-bm-xeafkawg facet osteoarthritis. There is mild bilateral neural foraminal stenosis. Procedure Note Magdalena Blackmon MD - 12/13/2024 PROCEDURE: FL MYELOGRAM 2 OR MORE REGIONS, CT LUMBAR POST MYELOGRAM, CT CERVICAL POST MYELOGRAM DATE/TIME OF EXAM: 12/08/2024 10:34 AM CLINICAL INFORMATION: PROCEDURE: FL MYELOGRAM 2 OR MORE REGIONS, CTLUMBAR POST MYELOGRAM, CT CERVICAL POST MYELOGRAM, DATE/TIME OF EXAM:12/08/2024 10:34 AM, LOCATION [facility] INDICATION: M54.50: Lumbar spine pain ADDITIONAL CLINICAL INFORMATION: Ordering Provider Reason For Exam: myelopathy (accession [id number]), chronic low back pain (accession [id number]) Technologist Note: None. Additional: None. EXAMINATION: 1.Lumbar [...] patient wasthen transferred to the personal care service provider unit for further observation and 2hours [...] island in the right aspect of the U3tzztcdenr body. Vertebral bodies are normal in height [...] is no high-grade central canal stenosis. Thereis licy-ye-djfshemm facet osteoarthritis. There is mild bilateral neural [...] 1.Multilevel degenerative disc and joint disease as ohtdfqmpkplsh-af-jccnb above, worse at L4-L5, as outlined. 2.Transitional anatomy as noted above. The report is dictated by Addi Arambula MD, (assistant professor of radiology) Attending Physician: Dr. Magdalena Blackmon [place]: Dr. Addi Arambula MD, (assistant professor of radiology) The procedure was performed by the: The hearing and speech assistant, and the attending radiologist was present for allcritical and mariscal portions of the procedure, and was immediately available [facility] services during the entire procedure. The attending radiologist performed the following procedural activities: Dr. Magdalena Gutierrez was there and supervised mariscal portions of the procedure, not scrubbed. IMagdalena MD have personally reviewed and interpretedthis examination/study. > Interpreting Provider: Magdalena Blackmon MD on 12/13/2024 12:15 PM Cornelio Lima MD FLUOROSCOPY OR DERABLES * CT Lumbar Post Myelogram (12/08/2024 10:25 AM RADIO ENGINEER) Anatomical Region Laterality Modality Spine Computed Tomogra phy 12/08/2024 1:17 PM RADIO ENGINEER Impressions 12/13/2024 12:15 PM RADIO ENGINEER IMPRESSION: 1.Successful lumbar puncture for cervical [...] degenerative disc and joint disease as detailed flcpk-tt-gzkrh above, worse at L4-L5, as outlined. 2.Transitional anatomy as noted above. The report is dictated by Addi Arambula MD, (assistant professor of radiology) Attending Physician: Dr. Magdalena Blackmon [employer] [place]: Dr. Addi Arambula MD, (assistant professor of radiology) The procedure was performed by the: The hearing and speech assistant, and the attending radiologist was present [...] 12/13/2024 12:15 PM Narrative 12/13/2024 12:15 PM RADIO ENGINEER PROCEDURE: FL MYELOGRAM 2 OR MORE REGIONS, CT LUMBAR POST MYELOGRAM, CT CERVICAL POST MYELOGRAM DATE/TIME OF EXAM: 12/08/2024 10:34 AM CLINICAL INFORMATION: PROCEDURE: FL MYELOGRAM 2 OR MORE REGIONS, CT LUMBAR POST MYELOGRAM, CT CERVICAL POST MYELOGRAM, DATE/TIME OF EXAM: 12/08/2024 10:34 AM, LOCATION [facility] INDICATION: M54.50: Lumbar spine pain ADDITIONAL CLINICAL INFORMATION: Ordering Provider Reason For Exam: myelopathy (accession [id number]), chronic low back pain (accession [id number]) Technologist Note: None. Additional: None. EXAMINATION: 1.Lumbar [...] was then transferred to the personal care service provider unit for further observation and 2 [...] no high-grade central canal stenosis. There is dmjy-ma-jakzebqo facet osteoarthritis. There is mild bilateral neural foraminal stenosis. Procedure Note Magdalena Blackmon MD - 12/13/2024 PROCEDURE: FL MYELOGRAM 2 OR MORE REGIONS, CT LUMBAR POST MYELOGRAM, CT CERVICAL POST MYELOGRAM DATE/TIME OF EXAM: 12/08/2024 10:34 AM CLINICAL INFORMATION: PROCEDURE: FL MYELOGRAM 2 OR MORE REGIONS, CTLUMBAR POST MYELOGRAM, CT CERVICAL POST MYELOGRAM, DATE/TIME OF EXAM:12/08/2024 10:34 AM, LOCATION [facility] INDICATION: M54.50: Lumbar spine pain ADDITIONAL CLINICAL INFORMATION: Ordering Provider Reason For Exam: myelopathy (accession [id number]), chronic low back pain (accession [id number]) Technologist Note: None. Additional: None. EXAMINATION: 1.Lumbar [...] patient wasthen transferred to the personal care service provider unit for further observation and 2hours [...] island in the right aspect of the P5tvwyckpll body. Vertebral bodies are normal in height [...] is no high-grade central canal stenosis. Thereis dzde-ul-wyeoloej facet osteoarthritis. There is mild bilateral neural [...] 1.Multilevel degenerative disc and joint disease as pswrzvkjfthwh-re-ncrax above, worse at L4-L5, as outlined. 2.Transitional anatomy as noted above. The report is dictated by Addi Arambula MD, (assistant professor of radiology) Attending Physician: Dr. Magdalena Blackmon [employer] [place]: Dr. Addi Arambula MD, (assistant professor of radiology) The procedure was performed by the: The hearing and speech assistant, and the attending radiologist was present [...] CT Cervical Post Myelogram (12/08/2024 10:25 AM RADIO ENGINEER) Anatomical Region Laterality Modality Spine Computed Tomogra phy 12/08/2024 1:17 PM RADIO ENGINEER Impressions 12/13/2024 12:15 PM RADIO ENGINEER IMPRESSION: 1.Successful lumbar puncture for cervical [...] degenerative disc and joint disease as detailed ghhxb-iz-mmrhl above, worse at L4-L5, as outlined. 2.Transitional anatomy as noted above. The report is dictated by Addi Arambula MD, (assistant professor of radiology) Attending Physician: Dr. Magdalena Blackmon [employer] [place]: Dr. Addi Arambula MD, (assistant professor of radiology) The procedure was performed by the: The hearing and speech assistant, and the attending radiologist was present [...] 12/13/2024 12:15 PM Narrative 12/13/2024 12:15 PM RADIO ENGINEER PROCEDURE: FL MYELOGRAM 2 OR MORE REGIONS, CT LUMBAR POST MYELOGRAM, CT CERVICAL POST MYELOGRAM DATE/TIME OF EXAM: 12/08/2024 10:34 AM CLINICAL INFORMATION: PROCEDURE: FL MYELOGRAM 2 OR MORE REGIONS, CT LUMBAR POST MYELOGRAM, CT CERVICAL POST MYELOGRAM, DATE/TIME OF EXAM: 12/08/2024 10:34 AM, LOCATION [facility] INDICATION: M54.50: Lumbar spine pain ADDITIONAL CLINICAL INFORMATION: Ordering Provider Reason For Exam: myelopathy (accession [id number]), chronic low back pain (accession [id number]) Technologist Note: None. Additional: None. EXAMINATION: 1.Lumbar [...] was then transferred to the personal care service provider unit for further observation and 2 [...] no high-grade central canal stenosis. There is zjgt-cg-svfarjqw facet osteoarthritis. There is mild bilateral neural foraminal stenosis. Procedure Note Magdalena Blackmon MD - 12/13/2024 PROCEDURE: FL MYELOGRAM 2 OR MORE REGIONS, CT LUMBAR POST MYELOGRAM, CT CERVICAL POST MYELOGRAM DATE/TIME OF EXAM: 12/08/2024 10:34 AM CLINICAL INFORMATION: PROCEDURE: FL MYELOGRAM 2 OR MORE REGIONS, CTLUMBAR POST MYELOGRAM, CT CERVICAL POST MYELOGRAM, DATE/TIME OF EXAM:12/08/2024 10:34 AM, LOCATION [facility] INDICATION: M54.50: Lumbar spine pain ADDITIONAL CLINICAL INFORMATION: Ordering Provider Reason For Exam: myelopathy (accession [id number]), chronic low back pain (accession [id number]) Technologist Note: None. Additional: None. EXAMINATION: 1.Lumbar [...] patient wasthen transferred to the personal care service provider unit for further observation and 2hours [...] island in the right aspect of the [place] body. Vertebral bodies are normal in height [...] is no high-grade central canal stenosis. Thereis pfxh-yp-uizxxxxa facet osteoarthritis. There is mild bilateral neural [...] 1.Multilevel degenerative disc and joint disease as fkltlpfwvblna-so-ygjeb above, worse at L4-L5, as outlined. 2.Transitional anatomy as noted above. The report is dictated by Addi Arambula MD, (assistant professor of radiology) Attending Physician: Dr. Magdalena Blackmon [place]: Dr. Addi Arambula MD, (assistant professor of radiology) The procedure was performed by the: The hearing and speech assistant, and the attending radiologist was present for allcritical and mariscal portions of the procedure, and [facility]. The attending radiologist performed the following procedural activities: Dr. Magdalena Gutierrez was there and supervised mariscal portions of the procedure, not scrubbed. Magdalena Gutierrez MD have personally reviewed and interpretedthis examination/study. > Interpreting Provider: Magdalena Blackmon MD on 12/13/2024 12:15 PM Cornelio Lima MD CT ORDERABLES * XR Spine Entire 2 or 3Vw (11/23/2024 11:09 AM RADIO ENGINEER) Anatomical Region Laterality Modality Spine Radiographic Erna ging 11/23/2024 11:3 1 AM RADIO ENGINEER Impressions 11/23/2024 11:34 AM RADIO ENGINEER IMPRESSION: Mild scoliosis. > Interpreting Provider: Baljinder Henson MD on 11/23/2024 11:34 AM Narrative 11/23/2024 11:34 AM RADIO ENGINEER PROCEDURE: XR SPINE ENTIRE 2 OR [...] 10 degrees, a lower thoracic levo curve [id number] degrees, and a lumbar dextro curve measuring [...] Spine 2 or 3Vw (11/23/2024 11:06 AM RADIO ENGINEER) Anatomical Region Laterality Modality Spine Radiographic Erna ging 11/23/2024 11:2 9 AM RADIO ENGINEER Impressions 11/23/2024 11:31 AM RADIO ENGINEER IMPRESSION: Moderate cervical spondylosis. > Interpreting Provider: Baljinder Henson MD on 11/23/2024 11:31 AM Narrative 11/23/2024 11:31 AM RADIO ENGINEER PROCEDURE: XR CERVICAL SPINE 2 OR [...] Spine 2 or 3Vw (11/23/2024 10:00 AM RADIO ENGINEER) Anatomical Region Laterality Modality Spine Computed Radiogr aphy 11/23/2024 10:3 8 AM RADIO ENGINEER Impressions 11/23/2024 10:39 AM RADIO ENGINEER IMPRESSION: Mild to moderate degenerative changes. > Interpreting Provider: Baljinder Henson MD on 11/23/2024 10:39 AM Narrative 11/23/2024 10:39 AM RADIO ENGINEER PROCEDURE: XR LUMBAR SPINE 2 OR [...] ORDERABLES * PATHOLOGY TISSUE (11/11/2024 10:16 AM RADIO ENGINEER) Case Report Surgical Pathology Report Case: [id number] Authorizing Provider: Sixto Cornell MD Collected: 11/11/2024 10:16 AM Ordering Location: [facility] ENDOSCOPY Received: 11/11/2024 10:58 AM Pathologist: Kenyatta Norris MD Specimens: A) - Polyp Ascending, ascending colon polyp B) - Polyp Descending, descending colon polyps 11/14/2024 3:20 PM [facility] PATHOLOGY LAB Final Diagnosis Large intestine, ascending colon polyp, biopsy (A): - Tubular adenoma Large intestine, descending colon polyps, biopsy (B): - Tubular adenoma(s), fragmented 11/14/2024 3:20 PM [facility] PATHOLOGY LAB Microscopic Description and Comment Microscopic examination substantiates the final diagnosis. 11/14/2024 3:20 PM [facility]OLOG[facility] LAB Clinical History The patient is a 69-year-old woman who presents for high risk colon cancer surveillance (personal history of colonic polyps). Operative procedure/findings: Colonoscopy - 2 mm ascending colon polyp, 4 and 5 mm descending colon polyps, resected and retrieved 11/14/2024 3:20 PM [facility] PATH[facility] Gross Description The [...] cassette labeled B1. RB 11/14/2024 3:20 PM [facility] PATH[facility] LAB Pathologist Location at [facility] 11/14/2024 3:20 PM [facility] PATH[facility] LAB Disclaimer The performance characteristics of all immunohistochemical and indirect immunofluorescence stains (if any) cited in this report were determined by the Histopathology Laboratory of [facility]. Some of these tests were developed [...] the attending (teaching) pathologist. 11/14/2024 3:20 PM RADIO ENGINEER [facility] PATH[facility] Embedded Images 11/14/2024 3:20 PM RADIO ENGINEER [facility] Biopsy, NOS POLYP / Unknown 11/11/2024 1 0:16 AM RADIO ENGINEER 11/11/2024 10:58 AM RADIO ENGINEER Comment:Pre-op diagnosis: Screen for colon cancer [Z12.11] Biopsy, NOS POLYP / Unknown 11/11/2024 1 0:19 AM RADIO ENGINEER 11/11/2024 10:58 AM RADIO ENGINEER Comment:Pre-op diagnosis: Screen for colon cancer [Z12.11] Sixto Cornell MD LAB - PATHOLOGY/CYTO LOGY ORDERABLES [facility] PATHOLOG[facility] LAB [address] [phone] * ENDOSCOPY, COLON, SCREENING (11/11/2024 9:52 AM RADIO ENGINEER) Report Endoscopy POC Endoscopy Department Report [...] bowel preparation was evaluated using the BBPS (Dewey Bowel Preparation Scale) with scores of: Right [...] non-mariscal portions. Procedure Code(s): --- Professional --- 72268, Colonoscopy, flexible; with removal of tumor(s), polyp(s), or other lesion(s) by snare technique 76751, 59, Colonoscopy, flexible; with biopsy, single or multiple Diagnosis Code(s): --- Professional --- Z86.010, Personal history of colonic polyps D12.2, Benign neoplasm of ascending colon D12.4, Benign neoplasm of descending colon K57.30, Diverticulosis of large intestine without perforation or abscess without bleeding CPT copyright 2021 [employer]. All rights reserved. The codes documented in this report are preliminary and upon manager orange review may be revised to meet current compliance requirements. Sixto Cornell MD 11/11/2024 10:36:45 AM This report has been signed electronically. Note Initiated On: 11/11/2024 9:52 AM Number of Addenda: [address] [id number] [facility] PROVATION 11/11/2024 9:52 AM RADIO ENGINEER Sixto Cornell MD GI PROCEDURE ORDERAB LES [facility] * GLUCOSE - POINT OF CARE (11/11/2024 9:19 AM RADIO ENGINEER) Pathologist [facility] Glucose WB/POC 99 70 - 99 mg/dL 11/11/2024 9:54 AM RADIO ENGINEER [facility] Specimen Type Venous 11/11/2024 9:54 AM RADIO ENGINEER [facility] Blood BLOOD SPECIMEN / Unknown 11/11/2024 9:19 AM RADIO ENGINEER 11/11/2024 9:54 AM RADIO ENGINEER Sixto Cornell MD LAB - POINT OF CARE ORDERABLES Performing Organization Address [facility] Co de Phone Number [facility] [address] [place] [address], [facility] [phone] * CALPROTECTIN FECAL (11/07/2024 3:52 PM RADIO ENGINEER) Pathologist [facility] Calprotectin Fecal 69 mcg/g [facility] Comment: Reference [...] suggested for borderline values. Test Performed at: [facility] [address] [place] [address] JARRELL CALDERON MD,PHD,EDGARDO Stool STOOL SPECIMEN / Unknown 11/07/2024 3:52 PM RADIO ENGINEER 11/08/2024 4:47 AM RADIO ENGINEER Yolanda Greer WIRELESS ENGINEER-PIG MACHINE OPERATOR LAB - CRISTINA DY FLUID ORDERABLES Performing Organization Address City/[facility]/ZIP Co de Phone Number [facility] [address] [place] [address] * CULTURE STOOL PANEL (11/07/2024 3:52 PM RADIO ENGINEER) Pathologist [facility] Campylobacter Antigen [facility] Comment: CAMPYLOBACTER SPP. AG,EIA Micro Number: [id number] Test Status: Final Specimen Source: Stool Specimen Quality: Adequate Campy Ag Result: Not Detected Reference Range: Not Detected EIA [facility] Comment: SHIGA TOXINS, EIA W/RFL TO E.COLI O157 CULTURE Micro Number: [id number] Test Status: Final Specimen Source: Stool Specimen Quality: Adequate Shiga Toxin: Not Detected Reference Range: Not Detected Culture [facility] Comment: SALMONELLA AND SHIGELLA, CULTURE Micro Number: [id number] Test Status: Final Specimen Source: Stool Specimen Quality: Adequate Result: No Salmonella or Shigella isolated Test Performed at: [facility] [address] SAROJ FAUSTIN MD Stool STOOL SPECIMEN / Unknown 11/07/2024 3:52 PM RADIO ENGINEER 11/07/2024 11:51 PM RADIO ENGINEER Yolanda [facility] CROBIOLOGY ORDERABLES [address] [address] * C DIFFICILE CYTOTOXIN (11/07/2024 3:51 PM RADIO ENGINEER) Cytotoxin Assay Stool NOT DETECTED [facility] [...] (GDH) with Reflex to PCR, order code 89339 or Clostridium difficile toxin B, Qualitative real time PCR, test code 15971 to be more sensitive and timely methods for the diagnosis of C. difficile colitis. For additional information, please refer to http://education.[employer]/faq/SNL360 (This link is being provided for informational/ educational purposes only.) Test Performed at: [facility] [address] [place] [address] JARRELL CALDERON MD,PHD,EDGARDO Stool STOOL SPECIMEN / Unknown 11/07/2024 3:51 PM RADIO ENGINEER 11/08/2024 4:58 AM RADIO ENGINEER Yolanda [facility] [place] CROBIOLOGY ORDERABLES [facility] [address] [place] [address] * PROC DEEP BRAIN STIMULATOR (11/03/2024 2:08 PM RADIO ENGINEER) Narrative Moncho Salcedo RONEL-PIG MACHINE OPERATOR - 11/03/2024 2:08 PM RADIO ENGINEER Moncho Salcedo RONEL-PIG MACHINE OPERATOR 11/03/2024 4:00 PM Please see office notes for documentation- Thanks Moncho Salcedo WIRELESS ENGINEER-PIG MACHINE OPERATOR PROCEDURE/MINOR SURGICAL ORDERABLES * (ABNORMAL) COMPREHENSIVE METABOLIC PANEL (07/20/2024 11:49 AM CDT) BUN 10 7 - 26 mg/dL 07/20/2024 12:52 PM [facility] Creatinine 0.80 0.56 - 0.96 mg/dL 07/20/2024 12:52 PM [facility] Sodium 139 136 - 145 mmol/L 07/20/2024 12:52 PM [facility] Potassium 4.3 3.5 - 4.5 mmol/L 07/20/2024 12:52 PM [facility] Chloride 103 98 - 107 mmol/L 07/20/2024 12:52 PM [facility] CO2 28 22 - 29 mmol/L 07/20/2024 12:52 PM [facility] Glucose 165(H) 70 - 115 mg/dL 07/20/2024 12:52 PM [facility] Calcium 9.8 8.4 - 10.2 mg/dL 07/20/2024 12:52 PM [facility] Protein Total 7.1 6.0 - 8.3 g/dL 07/20/2024 12:52 PM [facility] Albumin 4.2 3.4 - 5.0 g/dL 07/20/2024 12:52 PM [facility] Bilirubin Total 0.2 0.2 - 1.2 mg/dL 07/20/2024 12:52 PM [facility] Alkaline Phosphatase 124 40 - 150 U/L 07/20/2024 12:52 PM [facility] ALT 16 5 - 55 U/L 07/20/2024 12:52 PM CDT [facility] AST 20 5 - 34 U/L 07/20/2024 12:52 PM CDT [facility] Anion Gap 8 6 - 16 07/20/2024 12:52 PM T [facility] BUN/Creatinine Ratio 13 7 - 23 07/20/2024 12:52 PM T [facility] Osmolality Calculated 291 275 - 295 mOsm/kg 07/20/2024 12:52 PM T [facility] Albumin/Globulin Ratio 1.4 1.1 - 2.3 07/20/2024 12:52 PM T [facility] eGFR by CKD-EPI 80(L) >=90 mL/min/1.7 3 m2 07/20/2024 12:52 PM T [facility] Blood BLOOD SPECIMEN / Unknown Lab Venipuncture / Unknown 07/20/2024 11:49 AM CDT 07/20/2024 12:17 PM CDT Yolanda Greer WIRELESS ENGINEER-PIG MACHINE OPERATOR LAB - CH EMISTRY ORDERABLES [facility] [address] [place] [address], [facility] [phone] * HEMOGLOBIN A1C - POINT OF CARE (AMB) [facility] (04/04/2024 11:34 AM CDT) Pathologist [facility] Hemoglobin A1c POCT 5.4 % [address] BLOOD SPECIMEN / Unknown 04/04/2024 11:34 AM CDT Kerry Coffman DO LAB - POINT OF CARE ORDERABLES Performing Organization Address [facility]/ZIP Co de Phone Number [address], [place] [address], [facility] [phone] * MICROALB/CREAT RATIO URINE RANDOM PANEL (02/05/2023 [...] within a diagnostic category. Test Performed at: [facility] [address] [place] [address] SAROJ FAUSTIN MD 02/05/2023 12:2 6 PM CDT 02/05/2023 12:27 PM CDT Marquise Adames MD LAB - URINE CHEMISTR Y ORDERABLES [facility] [address] [place] [address] from Last 3 Months or Most Recently Relevant to Health Maintenance Advance Directives * Full Code (Latest Code Status on File) Date Activated Date Inactivated Comments 08/29/2022 4:40 PM 08/31/2022 1:59 PM * Full Code Date Activated Date Inactivated Comments 03/17/2022 3:37 PM 03/19/2022 1:47 PM Care Teams [employer] Plant Assembler Relationship Specialty Start Date End Date Kerry Coffman DO [address] OF [employer] [place] [address] PCP - General Internal Medicine 12/15/23
--- OUTSIDE RECORDS SUMMARY | 2024-12-21 00:49 | XMS_ITS | Clinical Summary ---
Author Organization [facility] [employer] Address [address] [address] Care Team Providers Care Cruise Counselor Name Role Phone ManorKerry reddy Primary Care Provider [phone] Source Comments [facility] [employer],non-owned Affiliates and Associated Physician Practices is amultiple site organization consisting of ambulatory clinics and hospital sitesin [place], [place], [place] and [place]. This disclosure is being madepursuant to the Care Everywhere program and may not contain all information available regarding this patient. Last updated 18.[facility] [employer] Allergies Active Allergy Reactions Criticality Noted Date [...] tabletIndications: Bipolar affective disorder, remission status unspecified ([facility]) Take 1 (one) tablet by mouth 2 [...] route every 30 days Active blood glucose (Stopango Ultra) test stripIndications:T ype 2 diabetes mellitus with hyperglycemia, without long-term current use of insulin ([facility]) USE 1 STRIP TO CHECK [...] rhinitis, unspecified seasonality, unspecified trigger,Chronic daily headache Labadie 2 (two) sprays into each nostril once daily 16 g 6 08/11/2024 Active azelastine (Astelin) 0.1 % nasal sprayIndications:C hronic rhinitis,Allergic rhinitis, unspecified seasonality, unspecified trigger,Chronic daily headache Labadie 1 (one) spray into each nostril 2 [...] 12/19/2024 Telephone [facility] - Endocrinology [address] [place] [phone] Haydee Simmons RN Results 12/13/2024 Orders Only [facility] - Neurology [address] [place] [phone] Moncho Salcedo APRN-ARELY Cognitive decline 12/08/2024 9:17 AM SUPERVISOR PIPELINES - 12/08/2024 11:59 PM SUPERVISOR PIPELINES Hospital Encounter [facility] CAT SCAN [address] [place] [phone] Cornelio Lima MD Discharge Disposition: Home or Self Care 12/08/2024 9:17 AM SUPERVISOR PIPELINES - 12/08/2024 11:59 PM SUPERVISOR PIPELINES Hospital Encounter [facility] CAT SCAN [address] [place] [address] Cornelio Lima MD Discharge Disposition: Home or Self Care 12/08/2024 7:08 AM SUPERVISOR PIPELINES - 12/08/2024 9:16 AM SUPERVISOR PIPELINES Hospital Encounter [facility] DIAGNOSTIC RAD [address] [place] [address] Cornelio Lima MD Discharge Disposition: Home or Self Care 12/08/2024 Travel 11/28/2024 Telephone [facility] - Neurology [address] [place] [phone] Moncho Salcedo APRN-GARBAGE PERSON Medication Prior Auth Request (Emgality) 11/23/2024 10:58 AM SUPERVISOR PIPELINES - 11/23/2024 11:59 PM SUPERVISOR PIPELINES Hospital Encounter [facility] DIAGNOSTIC RAD [address] [place] [address] Cornelio Lima MD Discharge Disposition: Home or Self Care 11/23/2024 10:58 AM SUPERVISOR PIPELINES - 11/23/2024 11:59 PM SUPERVISOR PIPELINES Hospital Encounter [facility] DIAGNOSTIC RAD [address] [place] [address] Cornelio Lima MD Discharge Disposition: Home or Self Care 11/23/2024 10:00 AM SUPERVISOR PIPELINES Office Visit [facility] - Orthopedics [address] [place] [phone] Cornelio Lima MD Lumbar spine pain (Primary Dx); Lumbar spondylosis; Spondylolisthesis of lumbar region; Degenerative scoliosis in adult patient; Cervical spondylosis with myelopathy; Cervicalgia 11/23/2024 9:49 AM SUPERVISOR PIPELINES - 11/23/2024 10:57 AM SUPERVISOR PIPELINES Hospital Encounter [facility] DIAGNOSTIC RAD [address] [place] [address] Cornelio Lima MD Discharge Disposition: Home or Self Care 11/23/2024 Travel 11/14/2024 Telephone [facility] - Neurology [address] [place] [phone] Moncho Salcedo APRN-CNP Medication Clarification (Emgaltiy) 11/11/2024 10:15 AM SUPERVISOR PIPELINES - 11/11/2024 11:00 AM SUPERVISOR PIPELINES Surgery [facility] ENDOSCOPY [address] [place] [address] Sixto Cornell MD COLONOSCOPY SCREEN--extended prep 11/11/2024 10:00 AM SUPERVISOR PIPELINES Anesthesia Event [facility] ENDOSCOPY [address] [place] [address] Doug Forrester MD Dobbs, Kristin L, APRN-MANAGER MARKETING COMMUNICATION 11/11/2024 8:14 AM SUPERVISOR PIPELINES - 11/11/2024 11:24 AM SUPERVISOR PIPELINES Hospital Encounter [facility] [place] OP [address] [place] [address] Sixto Cornell MD Surgery General Discharge Disposition: Home or Self Care 11/11/2024 Travel 11/04/2024 Patient Outreach [facility] ENDOSCOPY [address] [place] [address] Samantha Monterroso, RN 11/02/2024 3:30 PM SUPERVISOR PIPELINES Office Visit [facility] - Neurology [address] [place] [phone] Moncho Salcedo APRN-CNP Intractable 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 (Primary Dx) 11/02/2024 Travel 10/26/2024 10:30 AM SUPERVISOR PIPELINES Office Visit [facility] - GI [address] [place] [phone] Yolanda Greer APRN-CNP Chronic diarrhea (Primary Dx) 10/26/2024 Travel 10/25/2024 Orders Only [facility] ENDOSCOPY [address] [place] [address] Wendy Humphrey RN 10/24/2024 Travel 10/20/2024 Telephone [facility] - Centralized Scheduling [address] [place] [phone] Moncho Salcedo APRN-GARBAGE PERSON Appointment 10/06/2024 Orders Only [facility] DIAGNOSTIC RAD OP [address] [place] [phone] Alok Christie III, MD Spondylolisthesis at L4-L5 level 09/27/2024 Travel 09/27/2024 Telephone [facility] - Neurology [address] [facility], [place] [address] Rissa Vo MD Med Question from Last 3 Months Immunizations Name Administration [...] Assigned at Female 09/16/2024 2:41 PM SUPERVISOR PIPELINES Gender Identity Female 09/16/2024 2:41 PM SUPERVISOR PIPELINES Sexual Orientation Straight 09/16/2024 2: 41 PM SUPERVISOR PIPELINES Last Filed Vital Signs Vital Sign Reading Time Taken Comments Blood Pressure 114/82 12/08/2024 12:30 PM SUPERVISOR PIPELINES Pulse 59 12/08/2024 12:30 PM SUPERVISOR PIPELINES Temperature 36.6 C (97.8 F) 12/08/2024 10:30 AM SUPERVISOR PIPELINES Respiratory Rate 14 12/08/2024 12:30 PM SUPERVISOR PIPELINES Oxygen Saturation 96% 12/08/2024 12:30 PM SUPERVISOR PIPELINES Inhaled Oxygen Concentration - - Weight 66.9 kg (147 lb 8 oz) 12/08/2024 8:01 AM SUPERVISOR PIPELINES Height 167.6 cm (5' 6 ) 12/08/2024 8:01 AM SUPERVISOR PIPELINES Body Mass Index 23.81 12/08/2024 8:01 AM SUPERVISOR PIPELINES Plan of Treatment Upcoming Encounters Date Type Department Care Team (Late st Contact Info) Description 01/04/2025 9:15 AM CDT Office Visit [facility] - Orthopedics [address] [place] [phone] Cornelio Lima MD [address] [place] [address] 01/25/2025 10:30 AM CDT Office Visit [facility] - GI [address] [place] [address], [place] [phone] Yolanda Greer, CREDIT REVIEW MANAGER-GARBAGE PERSON [address] [place] [phone] 02/09/2025 11:15 AM CDT Office Visit [facility] - Ophthalmology [address] [place] [phone] Percy Matute MD [address] [place] [address] [place] [phone] 02/09/2025 4:00 PM CDT Office Visit [facility] - Allergy [address] [place] [phone] Papito Morales MD [address] [place] [address] 2L DIV OF ALLERGY/[place] [address] 03/02/2025 1:00 PM CDT Office Visit [facility] - Neurology [address] [place] [phone] Moncho Salcedo, CREDIT REVIEW MANAGER-GARBAGE PERSON [address] [place] [address] [address] [place] [phone] 03/20/2025 11:00 AM CDT Office Visit [facility] - Internal Med [address] [place] [phone] Kerry Coffman DO [address] [place] [address] 2L DIV [place] [address] 04/13/2025 3:00 PM CDT Office Visit [facility] - Allergy [address] [place] [address], [place] [phone] Papito Morales MD [address] [place] [address] 2[address] DIV OF ALLERGY/[place] [address] Health Maintenance Due Date Last Done Comments [...] - URINE PROTEIN SCREENING 10/12/2024 02/05/2023 MEDICARE AWV CALENDAR YEAR 2024 09/19/2024 DIABETES-FOOT EXAM WITH [...] Management General On track( 025 10:42 AM SUPERVISOR PIPELINES) Marion Scott, RN Note: Expected end date: ongoing Interventions: Take all medications as prescribed Medical Devices Implanted Type Area Operations Director Device Identifier Shelf Expiration Date Model / Serial / Lot Slnt Dura Duraseal Pg Trilysine Amine 5 Implanted:Qty: 1 on 03/17/2022 by Jackelyn Yang MD at [facility] Left: Cranial [employer] 08/11/2023 [id number] / / [id number] Guardian Branial Yuiry Hole Cover Sys Implanted:Qty: 1 on 03/17/2022 by Jackelyn Yang MD at [facility] Left: Cranial [employer] 01/01/2024 6010 / / [id number] Directional Lead Implanted:Qty: 1 on 03/17/2022 by Shailesh North MD at [facility] Left: Cranial [employer] 09/25/2023 6172 / [id number] / Lead Extension Implanted:Qty: 1 on 03/24/2022 by Shailesh North MD at [facility] Left: Neck [employer] 01/15/2024 [id number] / / [id number] Generator Implanted:Qty: 1 on 03/24/2022 by Shailesh North MD at [facility] Left: Chest [employer] 11/19/2023 6662 / / [id number] [place] Spnl 140mm 6.35mm Ti Str Implanted:Qty: 1 on 08/29/2022 by Shailesh North MD at [facility] Right: Scalp [employer] 04/02/2024 6010 / / [employer] Dbs System Implanted:Qty: 1 on 08/29/2022 by Joshua Gill MD at [facility] Right: Brain 03/19/2024 6172 / [id number] / Description:cost per Levar [employer] Inf[employer] Dbs System Implanted:Qty: 1 on 08/29/2022 by Joshua Gill MD at [facility] Right: Chest Wall 04/23/2024 6373 / [id number] / Description:cost per levar Procedures Procedure Name Priority Date/Time Associated Diagnosis Comments FL MYELOGRAM 2 OR MORE REGIONS Routine 12/08/2024 10:27 AM SUPERVISOR PIPELINES Lumbar spine pain CT LUMBAR POST MYELOGRAM Routine 12/08/2024 10:25 AM SUPERVISOR PIPELINES Lumbar spine pain CT CERVICAL POST MYELOGRAM Routine 12/08/2024 10:25 AM SUPERVISOR PIPELINES Lumbar spine pain XR SPINE ENTIRE 2 OR 3VW Routine 11/23/2024 11:09 AM SUPERVISOR PIPELINES Lumbar spine pain XR CERVICAL SPINE 2 OR 3VW Routine 11/23/2024 11:06 AM SUPERVISOR PIPELINES Lumbar spine pain XR LUMBAR SPINE 2 OR 3VW Routine 11/23/2024 10:00 AM SUPERVISOR PIPELINES Lumbar spine pain PATHOLOGY TISSUE Routine 11/11/2024 10:1 6 AM SUPERVISOR PIPELINES Screen for colon cancer TN COLOREC CANC SCRN,SCOPY NOT HI RISK 11/11/2024 9:55 AM SUPERVISOR PIPELINES Screen for colon cancer ENDOSCOPY, COLON, SCREENING Routine 11/11/2024 9:52 AM SUPERVISOR PIPELINES GLUCOSE - POINT OF CARE Routine 11/11/2024 9:19 AM SUPERVISOR PIPELINES CALPROTECTIN FECAL Routine 11/07/2024 3: 52 PM SUPERVISOR PIPELINES Chronic diarrhea CULTURE STOOL PANEL Routine 11/07/2024 3 :52 PM SUPERVISOR PIPELINES Chronic diarrhea C DIFFICILE CYTOTOXIN Routine 11/07/2024 3:51 PM SUPERVISOR PIPELINES Chronic diarrhea PROC DEEP BRAIN STIMULATOR Routine 11/03/2024 2:08 PM SUPERVISOR PIPELINES Intractable chronic migraine with aura with status [...] 2 or More Regions (12/08/2024 10:27 AM SUPERVISOR PIPELINES) Anatomical Region Laterality Modality Spine Digital Radiogra phy 12/08/2024 1:17 PM SUPERVISOR PIPELINES Impressions 12/13/2024 12:15 PM SUPERVISOR PIPELINES IMPRESSION: 1.Successful lumbar puncture for cervical and [...] degenerative disc and joint disease as detailed amyjd-uq-uwomj above, worse at L4-L5, as outlined. 2.Transitional anatomy as noted above. The report is dictated by Addi Arambula MD, (doctor of radiology) Attending Physician: Dr. Magdalena Blackmon Automobile Body Repair Chief: Dr. Addi Arambula MD, (doctor of radiology) The procedure was performed by the: The assistant program manager, and the attending radiologist was present for all critical and mariscal portions of the procedure, and was immediately available to furnish services during the entire procedure. The attending radiologist performed the following procedural activities: IDr. Magdaelna was there and supervised mariscal portions of the procedure, not scrubbed. IMagdalena MD have personally reviewed and interpreted this examination/study. > Interpreting Provider: Magdalena Blackmon MD on 12/13/2024 12:15 PM Narrative 12/13/2024 12:15 PM SUPERVISOR PIPELINES PROCEDURE: FL MYELOGRAM 2 OR MORE REGIONS, CT LUMBAR POST MYELOGRAM, CT CERVICAL POST MYELOGRAM DATE/TIME OF EXAM: 12/08/2024 10:34 AM CLINICAL INFORMATION: PROCEDURE: FL MYELOGRAM 2 OR MORE REGIONS, CT LUMBAR POST MYELOGRAM, CT CERVICAL POST MYELOGRAM, DATE/TIME OF EXAM: 12/08/2024 10:34 AM, LOCATION [facility] INDICATION: M54.50: Lumbar spine pain ADDITIONAL CLINICAL INFORMATION: Ordering Provider Reason For Exam: myelopathy (accession [id number]), chronic low back pain (accession [id number]) Technologist Note: None. Additional: None. EXAMINATION: 1.Lumbar [...] The patient was then transferred to the restorative care technician unit for further observation and 2 hours [...] no high-grade central canal stenosis. There is phoh-oy-yduylesx facet osteoarthritis. There is mild bilateral neural foraminal stenosis. Procedure Note Magdalena Blackmon MD - 12/13/2024 PROCEDURE: FL MYELOGRAM 2 OR MORE REGIONS, CT LUMBAR POST MYELOGRAM, CT CERVICAL POST MYELOGRAM DATE/TIME OF EXAM: 12/08/2024 10:34 AM CLINICAL INFORMATION: PROCEDURE: FL MYELOGRAM 2 OR MORE REGIONS, CTLUMBAR POST MYELOGRAM, CT CERVICAL POST MYELOGRAM, DATE/TIME OF EXAM:12/08/2024 10:34 AM, LOCATION [facility] INDICATION: M54.50: Lumbar spine pain ADDITIONAL CLINICAL INFORMATION: Ordering Provider Reason For Exam: myelopathy (accession [id number]), chronic low back pain (accession [id number]) Technologist Note: None. Additional: None. EXAMINATION: 1.Lumbar [...] well. The patient wasthen transferred to the restorative care technician unit for further observation and 2hours of [...] island in the right aspect of the N0adieltdnp body. Vertebral bodies are normal in height [...] is no high-grade central canal stenosis. Thereis sjhm-wc-nvayrmpl facet osteoarthritis. There is mild bilateral neural [...] 1.Multilevel degenerative disc and joint disease as pjkqfuyatogtr-dl-jxuhy above, worse at L4-L5, as outlined. 2.Transitional anatomy as noted above. The report is dictated by Addi Arambula MD, (doctor of radiology) Attending Physician: Dr. Magdalena Blackmon Automobile Body Repair Chief: Dr. Addi Arambula MD, (doctor of radiology) The procedure was performed by the: The assistant program manager, and the attending radiologist was present for allcritical and mariscal portions of the procedure, and was immediately available [facility] services during the entire procedure. The attending radiologist performed the following procedural activities: Dr. Magdalena Gutierrez was there and supervised mariscal portions of the procedure, not scrubbed. Magdalena Gutierrez MD have personally reviewed and interpretedthis examination/study. > Interpreting Provider: Magdalena Blackmon MD on 12/13/2024 12:15 PM Cornelio Lima MD FLUOROSCOPY OR DERABLES * CT Lumbar Post Myelogram (12/08/2024 10:25 AM SUPERVISOR PIPELINES) Anatomical Region Laterality Modality Spine Computed Tomogra phy 12/08/2024 1:17 PM SUPERVISOR PIPELINES Impressions 12/13/2024 12:15 PM SUPERVISOR PIPELINES IMPRESSION: 1.Successful lumbar puncture for cervical and [...] degenerative disc and joint disease as detailed danyf-no-pdoas above, worse at L4-L5, as outlined. 2.Transitional anatomy as noted above. The report is dictated by Addi Arambula MD, (doctor of radiology) Attending Physician: Dr. Magdalena Blackmon Automobile Body Repair Chief: Dr. Addi Arambula MD, (doctor of radiology) The procedure was performed by the: The assistant program manager, and the attending radiologist was present [...] 12/13/2024 12:15 PM Narrative 12/13/2024 12:15 PM SUPERVISOR PIPELINES PROCEDURE: FL MYELOGRAM 2 OR MORE REGIONS, CT LUMBAR POST MYELOGRAM, CT CERVICAL POST MYELOGRAM DATE/TIME OF EXAM: 12/08/2024 10:34 AM CLINICAL INFORMATION: PROCEDURE: FL MYELOGRAM 2 OR MORE REGIONS, CT LUMBAR POST MYELOGRAM, CT CERVICAL POST MYELOGRAM, DATE/TIME OF EXAM: 12/08/2024 10:34 AM, LOCATION [facility] INDICATION: M54.50: Lumbar spine pain ADDITIONAL CLINICAL INFORMATION: Ordering Provider Reason For Exam: myelopathy (accession [id number]), chronic low back pain (accession [id number]) Technologist Note: None. Additional: None. EXAMINATION: 1.Lumbar [...] The patient was then transferred to the restorative care technician unit for further observation and 2 hours [...] no high-grade central canal stenosis. There is prmo-ve-ugbegphk facet osteoarthritis. There is mild bilateral neural foraminal stenosis. Procedure Note Magdalena Blackmon MD - 12/13/2024 PROCEDURE: FL MYELOGRAM 2 OR MORE REGIONS, CT LUMBAR POST MYELOGRAM, CT CERVICAL POST MYELOGRAM DATE/TIME OF EXAM: 12/08/2024 10:34 AM CLINICAL INFORMATION: PROCEDURE: FL MYELOGRAM 2 OR MORE REGIONS, CTLUMBAR POST MYELOGRAM, CT CERVICAL POST MYELOGRAM, DATE/TIME OF EXAM:12/08/2024 10:34 AM, LOCATION [facility] INDICATION: M54.50: Lumbar spine pain ADDITIONAL CLINICAL INFORMATION: Ordering Provider Reason For Exam: myelopathy (accession [id number]), chronic low back pain (accession [id number]) Technologist Note: None. Additional: None. EXAMINATION: 1.Lumbar [...] well. The patient wasthen transferred to the restorative care technician unit for further observation and 2hours of [...] island in the right aspect of the A4sasmzzdko body. Vertebral bodies are normal in height [...] is no high-grade central canal stenosis. Thereis xgmv-dx-croqtxjq facet osteoarthritis. There is mild bilateral neural [...] 1.Multilevel degenerative disc and joint disease as yylgxmdgnpwoc-qg-zxpzg above, worse at L4-L5, as outlined. 2.Transitional anatomy as noted above. The report is dictated by Addi Arambula MD, (doctor of radiology) Attending Physician: Dr. Magdalena Blackmon Automobile Body Repair Chief: Dr. Addi Arambula MD, (doctor of radiology) The procedure was performed by the: The assistant program manager, and the attending radiologist was present for allcritical and mariscal portions of the procedure, and was immediately available [facility] services during the entire procedure. The attending radiologist performed the following procedural activities: Dr. Magdalena Gutierrez was there and supervised mariscal portions of the procedure, not scrubbed. Magdalena Gutierrez MD have personally reviewed and interpretedthis examination/study. > Interpreting Provider: Magdalena Blackmon MD on 12/13/2024 12:15 PM Cornelio Lima MD CT ORDERABLES * CT Cervical Post Myelogram (12/08/2024 10:25 AM SUPERVISOR PIPELINES) Anatomical Region Laterality Modality Spine Computed Tomogra phy 12/08/2024 1:17 PM SUPERVISOR PIPELINES Impressions 12/13/2024 12:15 PM SUPERVISOR PIPELINES IMPRESSION: 1.Successful lumbar puncture for cervical and [...] degenerative disc and joint disease as detailed xwogo-rs-vgcsg above, worse at L4-L5, as outlined. 2.Transitional anatomy as noted above. The report is dictated by Addi Arambula MD, (doctor of radiology) Attending Physician: Dr. Magdalena Blackmon Automobile Body Repair Chief: Dr. Addi Arambula MD, (doctor of radiology) The procedure was performed by the: The assistant program manager, and the attending radiologist was present [...] 12/13/2024 12:15 PM Narrative 12/13/2024 12:15 PM SUPERVISOR PIPELINES PROCEDURE: FL MYELOGRAM 2 OR MORE REGIONS, CT LUMBAR POST MYELOGRAM, CT CERVICAL POST MYELOGRAM DATE/TIME OF EXAM: 12/08/2024 10:34 AM CLINICAL INFORMATION: PROCEDURE: FL MYELOGRAM 2 OR MORE REGIONS, CT LUMBAR POST MYELOGRAM, CT CERVICAL POST MYELOGRAM, DATE/TIME OF EXAM: 12/08/2024 10:34 AM, LOCATION [facility] INDICATION: M54.50: Lumbar spine pain ADDITIONAL CLINICAL INFORMATION: Ordering Provider Reason For Exam: myelopathy (accession [id number]), chronic low back pain (accession [id number]) Technologist Note: None. Additional: None. EXAMINATION: 1.Lumbar [...] The patient was then transferred to the restorative care technician unit for further observation and 2 hours [...] no high-grade central canal stenosis. There is jjgm-lt-lszebuhj facet osteoarthritis. There is mild bilateral neural foraminal stenosis. Procedure Note Magdalena Blackmon MD - 12/13/2024 PROCEDURE: FL MYELOGRAM 2 OR MORE REGIONS, CT LUMBAR POST MYELOGRAM, CT CERVICAL POST MYELOGRAM DATE/TIME OF EXAM: 12/08/2024 10:34 AM CLINICAL INFORMATION: PROCEDURE: FL MYELOGRAM 2 OR MORE REGIONS, CTLUMBAR POST MYELOGRAM, CT CERVICAL POST MYELOGRAM, DATE/TIME OF EXAM:12/08/2024 10:34 AM, LOCATION [facility] INDICATION: M54.50: Lumbar spine pain ADDITIONAL CLINICAL INFORMATION: Ordering Provider Reason For Exam: myelopathy (accession [id number]), chronic low back pain (accession [id number]) Technologist Note: None. Additional: None. EXAMINATION: 1.Lumbar [...] well. The patient wasthen transferred to the restorative care technician unit for further observation and 2hours of [...] island in the right aspect of the F6ykqftyody body. Vertebral bodies are normal in height [...] is no high-grade central canal stenosis. Thereis kkfx-yf-umuoufzx facet osteoarthritis. There is mild bilateral neural [...] 1.Multilevel degenerative disc and joint disease as iftpaiuliqkwm-fo-nwird above, worse at L4-L5, as outlined. 2.Transitional anatomy as noted above. The report is dictated by Addi Arambula MD, (doctor of radiology) Attending Physician: Dr. Magdalena Blackmon Automobile Body Repair Chief: Dr. Addi Arambula MD, (doctor of radiology) The procedure was performed by the: The assistant program manager, and the attending radiologist was present [...] Entire 2 or 3Vw (11/23/2024 11:09 AM SUPERVISOR PIPELINES) Anatomical Region Laterality Modality Spine Radiographic Erna ging 11/23/2024 11:3 1 AM SUPERVISOR PIPELINES Impressions 11/23/2024 11:34 AM SUPERVISOR PIPELINES IMPRESSION: Mild scoliosis. > Interpreting Provider: Baljinder Henson MD on 11/23/2024 11:34 AM Narrative 11/23/2024 11:34 AM SUPERVISOR PIPELINES PROCEDURE: XR SPINE ENTIRE 2 OR 3VW [...] change. Procedure Note Baljinder Henson MD - 02/12/2025 PROCEDURE: XR SPINE ENTIRE 2 OR 3VW [...] 10 degrees, a lower thoracic levo curve [id number] degrees, and a lumbar dextro curve measuring [...] Spine 2 or 3Vw (11/23/2024 11:06 AM SUPERVISOR PIPELINES) Anatomical Region Laterality Modality Spine Radiographic Erna ging 11/23/2024 11:2 9 AM SUPERVISOR PIPELINES Impressions 11/23/2024 11:31 AM SUPERVISOR PIPELINES IMPRESSION: Moderate cervical spondylosis. > Interpreting Provider: Baljinder Henson MD on 11/23/2024 11:31 AM Narrative 11/23/2024 11:31 AM SUPERVISOR PIPELINES PROCEDURE: XR CERVICAL SPINE 2 OR 3VW [...] Spine 2 or 3Vw (11/23/2024 10:00 AM SUPERVISOR PIPELINES) Anatomical Region Laterality Modality Spine Computed Radiogr aphy 11/23/2024 10:3 8 AM SUPERVISOR PIPELINES Impressions 11/23/2024 10:39 AM SUPERVISOR PIPELINES IMPRESSION: Mild to moderate degenerative changes. > Interpreting Provider: Baljinder Henson MD on 11/23/2024 10:39 AM Narrative 11/23/2024 10:39 AM SUPERVISOR PIPELINES PROCEDURE: XR LUMBAR SPINE 2 OR 3VW [...] ORDERABLES * PATHOLOGY TISSUE (11/11/2024 10:16 AM SUPERVISOR PIPELINES) Case Report Surgical Pathology Report Case: [id number] Authorizing Provider: Sixto Cornell MD Collected: 11/11/2024 10:16 AM Ordering Location: [facility] ENDOSCOPY Received: 11/11/2024 10:58 AM Pathologist: Kenyatta Norris MD Specimens: A) - Polyp Ascending, ascending colon polyp B) - Polyp Descending, descending colon polyps 11/14/2024 3:20 PM [facility] PATHOLOGY LAB Final Diagnosis Large intestine, ascending colon polyp, biopsy (A): - Tubular adenoma Large intestine, descending colon polyps, biopsy (B): - Tubular adenoma(s), fragmented 11/14/2024 3:20 PM [facility] PATH[facility] LAB Microscopic Description and Comment Microscopic examination substantiates the final diagnosis. 11/14/2024 3:20 PM [facility] PATH[facility]Y LAB Clinical History The patient is a 69-year-old woman who presents for high risk colon cancer surveillance (personal history of colonic polyps). Operative procedure/findings: Colonoscopy - 2 mm ascending colon polyp, 4 and 5 mm descending colon polyps, resected and retrieved 11/14/2024 3:20 PM [facility] PATH[facility]Y LAB Gross Description The requisition and specimen(s) are identified with the patient's name Sehri Shin . Received in formalin, specimen A, [...] cassette labeled B1. RB 11/14/2024 3:20 PM [facility] PATH[facility] LAB Pathologist Location at [facility] 11/14/2024 3:20 PM [facility] PATH[facility] LAB Disclaimer The performance characteristics of all immunohistochemical and indirect immunofluorescence stains (if any) cited in this report were determined by the Histopathology Laboratory of [facility]. Some of these tests were developed [...] the attending (teaching) pathologist. 11/14/2024 3:20 PM [facility] LAB Embedded Images 11/14/2024 3:20 PM [facility] Biopsy, NOS POLYP / Unknown 11/11/2024 1 0:16 AM SUPERVISOR PIPELINES 11/11/2024 10:58 AM SUPERVISOR PIPELINES Comment:Pre-op diagnosis: Screen for colon cancer [Z12.11] Biopsy, NOS POLYP / Unknown 11/11/2024 1 0:19 AM SUPERVISOR PIPELINES 11/11/2024 10:58 AM SUPERVISOR PIPELINES Comment:Pre-op diagnosis: Screen for colon cancer [Z12.11] Sixto Cornell MD LAB - PATHOLOGY/CYTO LOGY ORDERABLES Performing Organization Address City/State/[facility] Phone Number [facility] PATHOLOGY LAB [address] [phone] * ENDOSCOPY, COLON, SCREENING (11/11/2024 9:52 AM SUPERVISOR PIPELINES) Report Endoscopy POC Endoscopy Department Report _ [...] bowel preparation was evaluated using the BBPS (Hargill Bowel Preparation Scale) with scores of: Right [...] non-mariscal portions. Procedure Code(s): --- Professional --- 53555, Colonoscopy, flexible; with removal of tumor(s), polyp(s), or other lesion(s) by snare technique 96345, 59, Colonoscopy, flexible; with biopsy, single or multiple Diagnosis Code(s): --- Professional --- Z86.010, Personal history of colonic polyps D12.2, Benign neoplasm of ascending colon D12.4, Benign neoplasm of descending colon K57.30, Diverticulosis of large intestine without perforation or abscess without bleeding CPT copyright 2021 [employer]. All rights reserved. The codes documented in this report are preliminary and upon cigarette package examiner review may be revised to meet current compliance requirements. Sixto Cornell MD 11/11/2024 10:36:45 AM This report has been signed electronically. Note Initiated On: 11/11/2024 9:52 AM Number of Addenda: [address] PROVATION 11/11/2024 9:52 AM SUPERVISOR PIPELINES Sixto Cornell MD GI PROCEDURE ORDERAB LES [facility] PROVATION * GLUCOSE - POINT OF CARE (11/11/2024 9:19 AM SUPERVISOR PIPELINES) Glucose WB/POC 99 70 - 99 mg/dL 11/11/2024 9:54 AM SUPERVISOR PIPELINES [facility] Specimen Type Venous 11/11/2024 9:54 AM SUPERVISOR PIPELINES [facility] Blood BLOOD SPECIMEN / Unknown 11/11/2024 9:19 AM SUPERVISOR PIPELINES 11/11/2024 9:54 AM SUPERVISOR PIPELINES Sixto Cornell MD LAB - POINT OF CARE ORDERABLES Performing Organization Address [facility] Co de Phone Number [place] [phone], [facility] [phone] * CALPROTECTIN FECAL (11/07/2024 3:52 PM SUPERVISOR PIPELINES) Calprotectin Fecal 69 mcg/g [facility] Comment: Reference [...] suggested for borderline values. Test Performed at: [facility] [employer] [facility] [employer] [address] [place] [address] JARRELL CALDERON MD,PHD,EDGARDO Stool STOOL SPECIMEN / Unknown 11/07/2024 3:52 PM SUPERVISOR PIPELINES 11/08/2024 4:47 AM SUPERVISOR PIPELINES Yolanda Greer CREDIT REVIEW MANAGER-GARBAGE PERSON LAB - CRISTINA DY FLUID ORDERABLES Performing Organization Address City/[facility]/ZIP Co de Phone Number [facility] [phone] [place] [address] * CULTURE STOOL PANEL (11/07/2024 3:52 PM SUPERVISOR PIPELINES) Campylobacter Antigen [facility] Comment: CAMPYLOBACTER SPP. AG,EIA Micro Number: [id number] Test Status: Final Specimen Source: Stool Specimen Quality: Adequate Campy Ag Result: Not Detected Reference Range: Not Detected EIA [facility] Comment: SHIGA TOXINS, EIA W/RFL TO E.COLI O157 CULTURE Micro Number: [id number] Test Status: Final Specimen Source: Stool Specimen Quality: Adequate Shiga Toxin: Not Detected Reference Range: Not Detected Culture [facility] Comment: SALMONELLA AND SHIGELLA, CULTURE Micro Number: [id number] Test Status: Final Specimen Source: Stool Specimen Quality: Adequate Result: No Salmonella or Shigella isolated Test Performed at: [facility] [employer] [facility] [employer] [address] SAROJ FAUSTIN MD Stool STOOL SPECIMEN / Unknown 11/07/2024 3:52 PM SUPERVISOR PIPELINES 11/07/2024 11:51 PM SUPERVISOR PIPELINES Yolanda Greer CREDIT REVIEW MANAGER-[facility] - CT CROBIOLOGY ORDERABLES [address] [address] * C DIFFICILE CYTOTOXIN (11/07/2024 3:51 PM SUPERVISOR PIPELINES) Cytotoxin Assay Stool NOT DETECTED [facility] Comment: [...] (GDH) with Reflex to PCR, order code 78155 or Clostridium difficile toxin B, Qualitative real time PCR, test code 64474 to be more sensitive and timely methods for the diagnosis of C. difficile colitis. For additional information, please refer to http://education.Ubimo/faq/IOZ408 (This link is being provided for informational/ educational purposes only.) Test Performed at: [facility] [employer]/[facility] [address] [place] [address] JARRELL CALDERON MD,PHD,EGDARDO Stool STOOL SPECIMEN / Unknown 11/07/2024 3:51 PM SUPERVISOR PIPELINES 11/08/2024 4:58 AM SUPERVISOR PIPELINES Yolanda RODRIGUEZGARBAGE PERSON LAB - CT CROBIOLOGY ORDERABLES [facility] [address] [place] [address] * PROC DEEP BRAIN STIMULATOR (11/03/2024 2:08 PM SUPERVISOR PIPELINES) Narrative Moncho Salcedo APRN-CNP - 11/03/2024 2:08 PM SUPERVISOR PIPELINES Moncho Salcedo APRN-CNP 11/03/2024 4:00 PM Please see office notes for documentation- Thanks Moncho MUHAMMAD PROCEDURE/MINOR SURGICAL ORDERABLES * (ABNORMAL) COMPREHENSIVE METABOLIC PANEL (07/20/2024 11:49 AM CDT) BUN 10 7 - 26 mg/dL 07/20/2024 12:52 PM [facility] Creatinine 0.80 0.56 - 0.96 mg/dL 07/20/2024 12:52 PM [facility] Sodium 139 136 - 145 mmol/L 07/20/2024 12:52 PM [facility] Potassium 4.3 3.5 - 4.5 mmol/L 07/20/2024 12:52 PM [facility] Chloride 103 98 - 107 mmol/L 07/20/2024 12:52 PM [facility] CO2 28 22 - 29 mmol/L 07/20/2024 12:52 PM [facility] Glucose 165(H) 70 - 115 mg/dL 07/20/2024 12:52 PM [facility] Calcium 9.8 8.4 - 10.2 mg/dL 07/20/2024 12:52 PM [facility] Protein Total 7.1 6.0 - 8.3 g/dL 07/20/2024 12:52 PM [facility] Albumin 4.2 3.4 - 5.0 g/dL 07/20/2024 12:52 PM [facility] Bilirubin Total 0.2 0.2 - 1.2 mg/dL 07/20/2024 12:52 PM [facility] Alkaline Phosphatase 124 40 - 150 U/L 07/20/2024 12:52 PM [facility] ALT 16 5 - 55 U/L 07/20/2024 12:52 PM [facility] AST 20 5 - 34 U/L 07/20/2024 12:52 PM [facility] Anion Gap 8 6 - 16 07/20/2024 12:52 PM [facility] BUN/Creatinine Ratio 13 7 - 23 07/20/2024 12:52 PM [facility] Osmolality Calculated 291 275 - 295 mOsm/kg 07/20/2024 12:52 PM [facility] Albumin/Globulin Ratio 1.4 1.1 - 2.3 07/20/2024 12:52 PM [facility] eGFR by CKD-EPI 80(L) >=90 mL/min/1.7 3 m2 07/20/2024 12:52 PM [facility] Blood BLOOD SPECIMEN / Unknown Lab Venipuncture / Unknown 07/20/2024 11:49 AM CDT 07/20/2024 12:17 PM CDT Yolanda Greer CREDIT REVIEW MANAGER-GARBAGE PERSON LAB - CH EMISTRY ORDERABLES Performing Organization Address City/[facility]/ZIP Co de Phone Number [facility] [address] [place] [address], [facility] [phone] * HEMOGLOBIN A1C - POINT OF CARE (AMB) [facility] (04/04/2024 11:34 AM CDT) Hemoglobin A1c POCT 5.4 % [address] BLOOD SPECIMEN / Unknown 04/04/2024 11:34 AM CDT Kerry Coffman DO LAB - POINT OF CARE ORDERABLES Performing Organization Address City/[facility]/ZIP Co de Phone Number [facility] [address] [facility] [address] [facility] [place] [address], [place] [phone] * MICROALB/CREAT RATIO URINE RANDOM PANEL (02/05/2023 [...] within a diagnostic category. Test Performed at: [facility] [address] [place] [address] SAROJ FAUSTIN MD 02/05/2023 12:2 6 PM CDT 02/05/2023 12:27 PM CDT Marquise Adames MD LAB - URINE CHEMISTR Y ORDERABLES [place] [id number] [place] [address] from Last 3 Months or Most Recently Relevant to Health Maintenance Advance Directives * Full Code (Latest Code Status on File) Date Activated Date Inactivated Comments 08/29/2022 4:40 PM 08/31/2022 1:59 PM * Full Code Date Activated Date Inactivated Comments 03/17/2022 3:37 PM 03/19/2022 1:47 PM Care Teams Cruise Counselor Relationship Specialty Start Date End Date Kerry Coffman DO [address] OF [facility] [place] [address] PCP - General Internal Medicine 12/15/23
--- OUTSIDE RECORDS SUMMARY | 2024-12-21 00:49 | XMS_ITS | Continuity of Care Document ---
Author Organization [facility] Address [address] [place] [address] Phone Care Team Providers Care Tutor Name Role Phone Sandie Briggs MD Unavailable [...] Encounter [facility], [address], [place], [place], [address] , [place] tel: [phone] [facility] No Information [address] Tepe Sandie. [address], [place], [place], [address], [place]. [phone] OFFICE/OUTPATI ENT VISIT, EST [facility], [address], [place], [place], [address] , [place] tel: [phone] [facility] medication refill (chief complaint) Bipolar disorderHigh risk medication use 3 No Information [facility], [address], [place], [place], [address] , [place] tel: [phone] [facility] Dental examination 2 No Information OFFICE OUTPT EST 25 MIN [facility], [address], [place], [place], [address] , [place] tel: [phone] [facility] referrals (chief complaint)b ipolar disorder (chief complaint) Bipolar disorderAlcohol abuseRoutine adult health maintenanceNeed for prophylactic vaccination and inoculation against Streptococcus pneumoniae [pneumococcus]C ommon wart 2 No Information OFFICE/OUTPATI ENT VISIT, EST [facility], [address], [place], [place], [address] , [place] tel: [phone] [facility] test results (chief complaint) Genital herpes, unspecifiedBeni gn neoplasm of vulvaNeed for prophylactic vaccination and inoculation, influenza 2 No Information [facility], [address], [place], [place], [address] , [place] tel: [phone] [facility] Dental examination 2 No Information OFFICE/OUTPATI ENT VISIT, EST [facility], [address], [place], [place], [address] , [place] tel: [phone] [facility] irritated spot on vulva (chief complaint) Benign neoplasm of vulva 2 No Information 1ST COMPRE PREV MED E/M NEW PT 40-64 [facility], [address], [place], [place], [address] , [place] tel: [phone] [facility] annual visit (chief complaint) Routine gynecological examination 2 No Information [facility], [address], [place], [place], [address] , [place] tel: [phone] [facility] Soul[facility]as[facility] No Information 1 No Information OFFICE OUTPT EST 25 MIN [facility], [address], [place], [place], [address] , [place] tel: [phone] [facility] pain (chief complaint)E R f/u (chief complaint) Other and unspecified alcohol dependence, continuous drinking behavior 1 No Information ENVIRONMENTAL IVNTJ MGMT PURPOSES PSYC PT [facility], [address], [place], [place], [address] , [place] tel: [phone] [facility] No Information 0 No Information FAMILY PSYCHOTHERAPY (CONJOINT PSYCHOTHERAPY) (WITH PATIENT PRESENT) [facility], [address], [place], [place], [address] , [place] tel: [phone] [facility] substance abuse (chief complaint) No Information 0 No Information OFFICE/OUTPATI ENT VISIT, EST [facility], [address], [place], [place], [address] , [place] tel: [phone] [facility] alcohol (chief complaint) Other and unspecified alcohol dependence, continuous drinking behavior 0 No Information OFFICE/OUTPATI ENT VISIT, EST [facility], [address], [place], [place], [address] , [place] tel: [phone] [facility] dizziness (chief complaint)a lcohol abuse (chief complaint) Other and unspecified alcohol dependence, continuous drinking behaviorDizzine ss and giddiness 0 No Information [facility], [address], [place], [place], [address] , [place] tel: [phone] [facility] depression (chief complaint) Major depressive affective disorder, recurrent episode, moderate degreeOther and unspecified alcohol dependence, continuous drinking behaviorUnspeci fied personality disorder 0 No Information OFFICE/OUTPATI ENT VISIT, NEW [facility], [address], [place], [place], [address] , [place] tel: [phone] [facility] REFERRED BY [facility] (chief complaint)M EDICATION NEEDED (chief complaint) Issue of repeat prescriptions 0 Juan Pablo Schwarz [address], [place], [place], [address], [place]. [phone] [facility], [address], [place], [place], [address] , [place] tel: [phone] Care Guidelines Aly-0 1-190 1 No Information [...] Record Payers Payer name Insurance type Covered green party ID Authoriza tion(s) No Information Social [...] Referred To: Josse Carrillo MD [address] [place], [place], [id number] Ordered: Referral: Josse Carrillo MD. Psychiatry. Evaluate and treat. ordered Referral Referred To: [facility] Ordered: Referral: [facility]. Psychiatry. Evaluate and treat. ordered Referral Referred To: [facility] [address], [place], [phone] Ordered: Referral: [facility] [place]. Radiology. Diagnostic testing. Appointment date/timeframe: 04/12/2012 ordered Referral Referred To: Anupam Sher MD [address] [place], [place], [phone] Ordered: Referral: Anupam Sher MD. Psychiatry. Appointment [...]
--- OUTSIDE RECORDS SUMMARY | 2024-12-21 00:49 | XMS_ITS | Clinical Summary ---
Author Organization [facility] [place] Address [address] [place] [address] Phone Care Team Providers Care Head Of Insight Name Role Phone Joan Robins MD Primary [...] on file Legal Sex Female 10:36 AM FLOW COORDINATOR Gender Identity Not on file Sexual Orientation Not on file Last Filed Vital Signs Vital Sign Reading Time Taken Comments Blood Pressure 125/81 10/21/2018 12:15 PM FLOW COORDINATOR Pulse 72 10/21/2018 12:25 PM FLOW COORDINATOR Temperature 36.3 C (97.3 F) 10/21/2018 11:32 AM FLOW COORDINATOR Respiratory Rate 18 10/21/2018 12:25 PM FLOW COORDINATOR Oxygen Saturation 99% 10/21/2018 12:25 PM FLOW COORDINATOR Inhaled Oxygen Concentration - - Weight 60.3 kg (133 lb) 10/21/2018 11:32 AM FLOW COORDINATOR Height 170.2 cm (5' 7 ) 10/21/2018 11:32 AM FLOW COORDINATOR Body Mass Index 20.83 10/21/2018 11:32 AM FLOW COORDINATOR Plan of Treatment Health Maintenance Due Date [...] age to complete this topic Insurance MEDICAID [place] [employer] Care Teams Head Of Insight Relationship Specialty Start Date End Date Joan Robins MD [address] [place] [phone] PCP - General Internal Medicine 10/21/18
--- OUTSIDE RECORDS SUMMARY | 2024-12-21 00:49 | XMS_ITS | Encounter Summary ---
Author Organization [facility] Address [address] [facility] [place] [address] Care Team Providers Care Lockstitch Collar Setter Name Role Phone RyderKerry reddy Primary Care Provider [phone] Encounter Details Date Type Department Care Team (Late st Contact Info) Description 02/10/2024 Telephone [facility] - Neurology [address] [facility], [place] [address] Hyacinth Arriaga, FURNACE CHARGING MACHINE OPERATOR-HOT MILL WORKER [address] [place] [address] [place] [address] Social History Tobacco Use Types Packs/Day Years Used Date Smoking Tobacco: Never Assessed Sex and Gender Information Value Date Recorded Sex Assigned at Female 09/16/2024 2:41 PM ENZYME CHEMIST Gender Identity Female 09/16/2024 2:41 PM ENZYME CHEMIST Sexual Orientation Straight 09/16/2024 2: 41 PM ENZYME CHEMIST documented as of this encounter Functional Status [...] Office Visit [facility] - Orthopedics [address] [place] [phone] Cornelio Lima MD [facility] [place] [address] 01/25/2025 10:30 AM CDT [facility] [address] [place] [phone] Yolanda Greer, FURNACE CHARGING MACHINE OPERATOR-HOT MILL WORKER [facility] [place] [phone] 02/09/2025 11:15 AM CDT Office Visit [facility] - Ophthalmology [address] [place] [phone] Percy Matute MD [address] [place] [address] DEPT [place] [phone] 02/09/2025 4:00 PM CDT Office Visit [facility] - Allergy [address] [place] [phone] Papito Morales MD [address] [place] [address] DIV OF ALLERGY/[place] [address] 03/02/2025 1:00 PM CDT Office Visit [facility] - Neurology [address] [place] [address] [place] [phone] NathalieepifanioMoncho, FURNACE CHARGING MACHINE OPERATOR-HOT MILL WORKER [address] [place] [address] 1L [place] [phone] 03/20/2025 11:00 AM CDT Office Visit [facility] - Internal Med [address] [place] [phone] Kerry Coffman DO [address] [place] [address] 2L DIV OF GEN [place] [address] 04/13/2025 3:00 PM CDT Office Visit [facility] - Allergy [address] [place] [phone] Papito Morales MD [address] [place] [address] 2L DIV OF ALLERGY/[place] [address] documented as of this encounter Visit Diagnoses Not on filedocumented in this encounter Additional Health Concerns Infection Onset Date Last Indicated Resolved Time CDIFF Under Investigation 07/20/2024 07/20/2024 4:33 AM CDT CDIFF Under Investigation 10/26/2024 11/07/2024 4:33 AM ENZYME CHEMIST CDIFF Under Investigation 11/07/2024 11/07/2024 5:38 PM ENZYME CHEMIST documented as of this encounter Care Teams Lockstitch Collar Setter Relationship Specialty Start Date End Date Kerry Coffman DO [address] [place] [address] 2L DIV OF [place] [address] PCP - General Internal Medicine 12/15/23 documented as of this encounter
--- OUTSIDE RECORDS SUMMARY | 2024-12-21 00:49 | XMS_ITS | Encounter Summary ---
Author Organization [facility] Address [address] [facility] [place] [address] Care Team Providers Care Latexer Name Role Phone Kerry Coffman Primary Care Provider [phone] Reason for Visit * Reason Onset Date Comments Appointment 10/20/2024 Encounter Details Date Type Department Care Team (Late st Contact Info) Description 10/20/2024 Telephone [facility] - Centralized Scheduling [address] [place] [phone] Moncho Salcedo, MANAGER MACHINE-WRAPPER LEAF INSPECTOR [address] [address] Appointment Social History Tobacco Use [...] Sex Assigned at Female 09/16/2024 2:41 PM BACK STRIP MACHINE OPERATOR Gender Identity Female 09/16/2024 2:41 PM BACK STRIP MACHINE OPERATOR Sexual Orientation Straight 09/16/2024 2: 41 PM BACK STRIP MACHINE OPERATOR documented as of this encounter Functional [...] to schedule for a Short Procedure with JUNIOR LINUX ADMINISTRATOR [facility] in November. STRIP MACHINE OPERATOR documented in this encounter Plan of Treatment Upcoming Encounters Date Type Department Care Team (Late st Contact Info) Description 01/04/2025 9:15 AM CDT Office Visit [facility] - Orthopedics [address] [place] [phone] Cornelio Lima MD [address] [place] [address] 01/25/2025 10:30 AM CDT Office Visit [facility] - GI [address] [place] [address] [place] [phone] Yolanda Greer, MANAGER MACHINE-WRAPPER LEAF INSPECTOR [address] [place] [phone] 02/09/2025 11:15 AM CDT Office Visit [facility] - Ophthalmology [address] [place] [address] [place] [phone] Percy Matute MD [address] [place] [address] [place] [phone] 02/09/2025 4:00 PM CDT Office Visit [facility] - Allergy [address] [place] [address] [place] [address] Papito Morales MD [address] [place] [address] DIV OF ALLERGY/[place] [address] 03/02/2025 1:00 PM CDT Office Visit [facility] - Neurology [address] [place] [address], [place] [address] NathalieepifanioMoncho, MANAGER MACHINE-WRAPPER LEAF INSPECTOR [address] [place] [address] 1L [place] [address] 03/20/2025 11:00 AM CDT Office Visit [facility] - Internal Med [address] [place] [address], [place] [address] Kerry Coffman DO [address] [place] [address] 2L DIV OF [facility] [place] [address] 04/13/2025 3:00 PM CDT Office Visit [facility] - Allergy [address] [place] [phone] Papito Morales MD [address] [place] [address] 2L DIV OF ALLERGY/[place] [address] documented as of this encounter Goals Goal Patient Goal Type Associated Problems Recent Progress Patient-Stated? Author Medication Management General On track( 025 10:42 AM BACK STRIP MACHINE OPERATOR) Marion Scott, RN Note: Expected end date: ongoing Interventions: Take all medications as prescribed documented as of this encounter Visit Diagnoses Not on filedocumented in this encounter Additional Health Concerns Infection Onset Date Last Indicated Resolved Time CDIFF Under Investigation 10/26/2024 11/07/2024 4:33 AM BACK STRIP MACHINE OPERATOR CDIFF Under Investigation 11/07/2024 11/07/2024 5:38 PM BACK STRIP MACHINE OPERATOR documented as of this encounter Care Teams Latexer Relationship Specialty Start Date End Date Kerry Coffman DO [address] [place] [address] 2L DIV OF [facility] [address] PCP - General Internal Medicine 12/15/23 documented as of this encounter
--- OUTSIDE RECORDS SUMMARY | 2024-12-21 00:49 | XMS_ITS | Encounter Summary ---
Author Organization [facility] Address [address] [place] [address] Care Team Providers Care Access Tech Name Role Phone Joan Robins MD Primary Care Provider Kerry Coffman DO Primary Care Provider [phone] Encounter Details Date Type Department Care Team (Late st Contact Info) Description 12/18/2021 Telephone [facility] [address] [place] [address] Rissa Vo MD Social History Tobacco Use Types Packs/Day Years Used Date Smoking Tobacco: Former Smokeless Tobacco: Never Alcohol Use Standard Drinks/Week Comments Never 0 (1 standard drink = 0.6 oz pur e alcohol) Sex and Gender Information Value Date Recorded Sex Assigned at Female 09/16/2024 2:41 PM APPLICATIONS ANALYST Gender Identity Female 09/16/2024 2:41 PM APPLICATIONS ANALYST Sexual Orientation Straight 09/16/2024 2: 41 PM APPLICATIONS ANALYST COVID-19 Exposure Response Date Recorded In the last month, have you been in contact with someone who was confirmed or suspected to have Coronavirus / COVID-19? No / Unsure 12/19/2021 5:58 AM APPLICATIONS ANALYST documented as of this encounter Patient Instructions * Patient Instructions* Donny Elliott - 12/18/2021 6:58 AM APPLICATIONS ANALYST Pt was bumped from 03/17/2022 DBN appt. [facility] does not schedule for these appt types. Please reschedule from the bump list. ICATIONS ANALYST documented in this encounter Plan of Treatment Upcoming Encounters Date Type Department Care Team (Late st Contact Info) Description 01/04/2025 9:15 AM CDT Office Visit [facility] - Orthopedics [address] [place] [phone] Cornelio Lima MD [address] [place] [address] 01/25/2025 10:30 AM CDT Office Visit [facility] - GI [address] [place] [phone] Yolanda Greer, BUSHER HELPER-CHIEF NURSE [address] [place] [phone] 02/09/2025 11:15 AM CDT Office Visit [facility] - Ophthalmology [address] [place] [phone] Percy Matute MD [address] [place] [address] [place] [phone] 02/09/2025 4:00 PM CDT Office Visit [facility] - Allergy [address] [place] [phone] Papito Morales MD [address] [place] [address] [address] DIV OF ALLERGY/[place] [address] 03/02/2025 1:00 PM CDT Office Visit [facility] - Neurology [address] [place] [phone] Moncho Salcedo, BUSHER HELPER-CHIEF NURSE [address] [place] [address] [address] [place] [phone] 03/20/2025 11:00 AM CDT Office Visit [facility] - Internal Med [address] [place] [address], [place] [phone] Kerry Coffman DO [address] [place] [address] [address] DIV [place] [address] 04/13/2025 3:00 PM CDT Office Visit [facility] - Allergy [address] [place] [address], [place] [phone] Papito Morales MD [address] [place] [address] [address] DIV [place]ERGY/[place] [address] documented as of this encounter Visit Diagnoses Not on filedocumented in this encounter Additional Health Concerns Infection Onset Date Last Indicated Resolved Time CDIFF Under Investigation 07/20/2024 07/20/2024 4:33 AM CDT CDIFF Under Investigation 10/26/2024 11/07/2024 4:33 AM APPLICATIONS ANALYST CDIFF Under Investigation 11/07/2024 11/07/2024 5:38 PM APPLICATIONS ANALYST documented as of this encounter Care Teams Access Tech Relationship Specialty Start Date End Date Joan Robins MD [address] [place], [place] [phone] PCP - General 02/14/19 12/14/23 Kerry Coffman DO [address] [place] [address] [address] DIV [place] [address] PCP - General Internal Medicine 12/15/23 documented as of this encounter
--- OUTSIDE RECORDS SUMMARY | 2024-12-21 00:49 | XMS_ITS | Patient Health Summary ---
Author Organization [facility] Address [address] [place] [address] Care Team Providers Care Incident Response Coordinator Name Role Phone Kerry Coffman DO Primary Care Provider [phone] Note from [facility],non-owned Affiliates and Associated Physician Practices is amultiple site organization consisting of ambulatory clinics and hospital sitesin [place], [place], [place] and [place]. This disclosure is being madepursuant to the Care Everywhere program and may not contain all information available regarding this patient. Last updated 18.[facility] Allergies * Penicillins(Anaphylaxis) -High Criticality * [...] route every 30 days * blood glucose (Cellrox Ultra) test strip(Started 07/27/2024) USE 1 STRIP [...] propionate (Flonase) 50 MCG/ACT nasal spray(Started 08/11/2024) Vantage 2 (two) sprays into each nostril once daily 6 refills by 08/11/2025 * azelastine (Astelin) 0.1 % nasal spray(Started 08/11/2024) Vantage 1 (one) spray into each nostril 2 [...] 30 days 11 refills by 11/02/2025 * urrzulguyt-qsqvfqluruqzo-mpvijbgb (Fioricet) 50-300-40 MG capsule(Started 11/02/2024) Take 1 [...] Sex Assigned at Female 09/16/2024 2:41 PM MACHINE SET UP OPERATOR Gender Identity Female 09/16/2024 2:41 PM MACHINE SET UP OPERATOR Sexual Orientation Straight 09/16/2024 2: 41 PM MACHINE SET UP OPERATOR Last Filed Vital Signs Vital Sign Reading Time Taken Comments Blood Pressure 114/82 12/08/2024 12:30 PM MACHINE SET UP OPERATOR Pulse 59 12/08/2024 12:30 PM MACHINE SET UP OPERATOR Temperature 36.6 C (97.8 F) 12/08/2024 10:30 AM MACHINE SET UP OPERATOR Respiratory Rate 14 12/08/2024 12:30 PM MACHINE SET UP OPERATOR Oxygen Saturation 96% 12/08/2024 12:30 PM MACHINE SET UP OPERATOR Inhaled Oxygen Concentration - - Weight 66.9 kg (147 lb 8 oz) 12/08/2024 8:01 AM MACHINE SET UP OPERATOR Height 167.6 cm (5' 6 ) 12/08/2024 8:01 AM MACHINE SET UP OPERATOR Body Mass Index 23.81 12/08/2024 8:01 AM MACHINE SET UP OPERATOR Medical Devices Implanted Type Area Financial Services Auditor Device Identifier Shelf Expiration Date Model / Serial / Lot Slnt Dura Duraseal Pg Trilysine Amine 5 Implanted:Qty: 1 on 03/17/2022 by Jackelyn Yang MD at [facility] Left: Cranial [employer] 08/11/2023 [id number] / / [id number] Guardian Branial Yuriy Hole Cover Sys Implanted:Qty: 1 on 03/17/2022 by Jackelyn Yang MD at [facility] Left: Cranial [employer] 01/01/2024 6010 / / [id number] Directional Lead Implanted:Qty: 1 on 03/17/2022 by Shailesh North MD at [facility] Left: Cranial [employer] 09/25/2023 6172 / [id number] / Lead Extension Implanted:Qty: 1 on 03/24/2022 by Shailesh North MD at [facility] Left: Neck [employer] 01/15/2024 [id number] / / [id number] Generator Implanted:Qty: 1 on 03/24/2022 by Shailesh North MD at [facility] Left: Chest [employer] 11/19/2023 6662 / / [id number] [place] Spnl 140mm 6.35mm Ti Str Implanted:Qty: 1 on 08/29/2022 by Shailesh North MD at [facility] Right: Scalp [employer] 04/02/2024 6010 / / [employer] Dbs System Implanted:Qty: 1 on 08/29/2022 by Joshua Gill MD at [facility] Right: Brain 03/19/2024 6172 / [id number] / Description:cost per Silva [employer] D[employer] System Implanted:Qty: 1 on 08/29/2022 by Joshua Gill MD at [facility] Right: Chest Wall 04/23/2024 6373 / [id number] / Description:cost per silva Procedures * FL [...] Performed for Screen for colon cancer * [place] COLOREC CANC SCRN,SCOPY NOT HI RISK(Performed 11/11/2024) [...] Chronic diarrhea, PUD (peptic ulcer disease) * VT COLOREC CANC SCRN,SCOPY NOT HI RISK(Performed 07/29/2024) Performed for Chronic diarrhea, PUD (peptic ulcer disease) * [place] ED EGD FLEX TRANSORAL DX(Performed 07/29/2024) Performed [...] with hyperglycemia, without long-term current use of insulin([facility]) * VT ANALYS BRN NPGT PRGRMG ADDL 15(Performed 01/13/2024) Performed for Tremor, essential * VT ANALYS BRN NPGT PRGRMG 15 MIN(Performed 01/13/2024) Performed for Tremor, essential * VT ANALYS BRN NPGT PRGRMG ADDL 15(Performed 12/11/2023) Performed for Tremor * VT ANALYS BRN NPGT PRGRMG 15 MIN(Performed 12/11/2023) Performed for Tremor * VT ANALYS BRN NPGT PRGRMG ADDL 15(Performed 08/05/2023) Performed for Benign essential tremor * [place] ANALYS BRN NPGT PRGRMG 15 MIN(Performed 08/05/2023) Performed for Benign essential tremor * VT ANALYS BRN NPGT PRGRMG 15 MIN(Performed 03/05/2023) Performed for Benign essential tremor * VT ANALYS BRN NPGT PRGRMG ADDL 15(Performed 03/05/2023) Performed for Benign essential tremor * VITAMIN D 25-HYDROXY(Performed 02/05/2023) * BASIC METABOLIC PANEL (CALCIUM TOTAL)(Performed 02/05/2023) * CALCIUM URINE RANDOM(Performed 02/05/2023) * MICROALB/CREAT RATIO URINE RANDOM PANEL(Performed 02/05/2023) * HEMOGLOBIN A1C - POINT OF CARE (AMB) [facility]U(Performed 12/08/2022) Performed for Type 2 diabetes mellitus with hyperglycemia, without long-term current use of insulin([facility]) * VT ANALYS BRN NPGT PRGRMG ADDL 15(Performed 12/07/2022) Performed for Benign essential tremor * VT ANALYS BRN NPGT PRGRMG 15 MIN(Performed 12/07/2022) Performed for Benign essential tremor * VT ANALYS BRN NPGT PRGRMG ADDL 15(Performed 10/29/2022) Performed for Benign essential tremor * VT ANALYS BRN NPGT PRGRMG 15 MIN(Performed 10/29/2022) Performed for Benign essential tremor * VT ANALYS BRN NPGT PRGRMG ADDL 15(Performed 10/01/2022) Performed for Benign essential tremor * VT ANALYS BRN NPGT PRGRMG ADDL 15(Performed 10/01/2022) Performed for Benign essential tremor * VT ANALYS BRN NPGT PRGRMG 15 MIN(Performed 10/01/2022) [...] 08/06/2022) Performed for Subjective memory complaints * VT ANALYS BRN NPGT PRGRMG 15 MIN(Performed 06/17/2022) Performed for Benign essential tremor * VT ANALYS BRN NPGT PRGRMG ADDL 15(Performed 04/17/2022) Performed for Benign essential tremor * VT ANALYS BRN NPGT PRGRMG ADDL 15(Performed 04/17/2022) Performed for Benign essential tremor * VT ANALYS BRN NPGT PRGRMG 15 MIN(Performed 04/17/2022) [...] 2 or More Regions (12/08/2024 10:27 AM MACHINE SET UP OPERATOR) Anatomical Region Laterality Modality Spine Digital Radiogra phy 12/08/2024 1:17 PM MACHINE SET UP OPERATOR Impressions 12/13/2024 12:15 PM MACHINE SET UP OPERATOR IMPRESSION: 1.Successful lumbar puncture for cervical [...] degenerative disc and joint disease as detailed omxfy-zk-topwo above, worse at L4-L5, as outlined. 2.Transitional anatomy as noted above. The report is dictated by Addi Arambula MD, (vice president compliance) Attending Physician: Dr. Magdalena Blackmon Commercial Truck Driver: Dr. Addi Arambula MD, (vice president compliance) The procedure was performed by the: The assistant center director, and the attending radiologist was present for [...] 12/13/2024 12:15 PM Narrative 12/13/2024 12:15 PM MACHINE SET UP OPERATOR PROCEDURE: FL MYELOGRAM 2 OR MORE REGIONS, CT LUMBAR POST MYELOGRAM, CT CERVICAL POST MYELOGRAM DATE/TIME OF EXAM: 12/08/2024 10:34 AM CLINICAL INFORMATION: PROCEDURE: FL MYELOGRAM 2 OR MORE REGIONS, CT LUMBAR POST MYELOGRAM, CT CERVICAL POST MYELOGRAM, DATE/TIME OF EXAM: 12/08/2024 10:34 AM, LOCATION [facility] INDICATION: M54.50: Lumbar spine pain ADDITIONAL CLINICAL INFORMATION: Ordering Provider Reason For Exam: myelopathy (accession [id number]), chronic low back pain (accession [id number]) Technologist Note: None. Additional: None. EXAMINATION: 1.Lumbar [...] patient was then transferred to the healthcare network consultant unit for further observation and 2 hours [...] no high-grade central canal stenosis. There is dnoo-kd-etfozffb facet osteoarthritis. There is mild bilateral neural foraminal stenosis. Procedure Note Magdalena Blackmon MD - 12/13/2024 PROCEDURE: FL MYELOGRAM 2 OR MORE REGIONS, CT LUMBAR POST MYELOGRAM, CT CERVICAL POST MYELOGRAM DATE/TIME OF EXAM: 12/08/2024 10:34 AM CLINICAL INFORMATION: PROCEDURE: FL MYELOGRAM 2 OR MORE REGIONS, CTLUMBAR POST MYELOGRAM, CT CERVICAL POST MYELOGRAM, DATE/TIME OF EXAM:12/08/2024 10:34 AM, LOCATION [facility] INDICATION: M54.50: Lumbar spine pain ADDITIONAL CLINICAL INFORMATION: Ordering Provider Reason For Exam: myelopathy (accession [id number]), chronic low back pain (accession [id number]) Technologist Note: None. Additional: None. EXAMINATION: 1.Lumbar [...] physician: Dr. Blackmon was present for the amriscal portions ofthis procedure. The L3-4 level was [...] The patient wasthen transferred to the healthcare network consultant unit for further observation and 2hours of [...] island in the right aspect of the C6ikcjjodnl body. Vertebral bodies are normal in height [...] is no high-grade central canal stenosis. Thereis jxkk-so-rbjpukud facet osteoarthritis. There is mild bilateral neural [...] 1.Multilevel degenerative disc and joint disease as mtsxudcskabml-ci-geohu above, worse at L4-L5, as outlined. 2.Transitional anatomy as noted above. The report is dictated by Addi Arambula MD, (vice president compliance) Attending Physician: Dr. Magdalena Blackmon Commercial Truck Driver: Dr. Addi Arambula MD, (vice president compliance) The procedure was performed by the: The assistant center director, and the attending radiologist was present for allcritical and mariscal portions of the procedure, and [facility] the entire procedure. The attending radiologist performed the following procedural activities: Dr. Magdalena Gutierrez was there and supervised mariscal portions of the procedure, not scrubbed. Magdalena Gutierrez MD have personally reviewed and interpretedthis examination/study. > Interpreting Provider: Magdalena Blackmon MD on 12/13/2024 12:15 PM Cornelio Lima MD FLUOROSCOPY OR DERABLES * CT Lumbar Post Myelogram (12/08/2024 10:25 AM MACHINE SET UP OPERATOR) Anatomical Region Laterality Modality Spine Computed Tomogra phy 12/08/2024 1:17 PM MACHINE SET UP OPERATOR Impressions 12/13/2024 12:15 PM MACHINE SET UP OPERATOR IMPRESSION: 1.Successful lumbar puncture for cervical [...] degenerative disc and joint disease as detailed udhyq-lz-plzgh above, worse at L4-L5, as outlined. 2.Transitional anatomy as noted above. The report is dictated by Addi Arambula MD, (vice president compliance) Attending Physician: Dr. Magdalena Blackmon Commercial Truck Driver: Dr. Addi Arambula MD, (vice president compliance) The procedure was performed by the: The assistant center director, and the attending radiologist was present for [...] 12/13/2024 12:15 PM Narrative 12/13/2024 12:15 PM MACHINE SET UP OPERATOR PROCEDURE: FL MYELOGRAM 2 OR MORE REGIONS, CT LUMBAR POST MYELOGRAM, CT CERVICAL POST MYELOGRAM DATE/TIME OF EXAM: 12/08/2024 10:34 AM CLINICAL INFORMATION: PROCEDURE: FL MYELOGRAM 2 OR MORE REGIONS, CT LUMBAR POST MYELOGRAM, CT CERVICAL POST MYELOGRAM, DATE/TIME OF EXAM: 12/08/2024 10:34 AM, LOCATION [facility] INDICATION: M54.50: Lumbar spine pain ADDITIONAL CLINICAL INFORMATION: Ordering Provider Reason For Exam: myelopathy (accession [id number]), chronic low back pain (accession [id number]) Technologist Note: None. Additional: None. EXAMINATION: 1.Lumbar [...] patient was then transferred to the healthcare network consultant unit for further observation and 2 hours [...] no high-grade central canal stenosis. There is eenb-es-rkufabtn facet osteoarthritis. There is mild bilateral neural foraminal stenosis. Procedure Note Magdalena Blackmon MD - 12/13/2024 PROCEDURE: FL MYELOGRAM 2 OR MORE REGIONS, CT LUMBAR POST MYELOGRAM, CT CERVICAL POST MYELOGRAM DATE/TIME OF EXAM: 12/08/2024 10:34 AM CLINICAL INFORMATION: PROCEDURE: FL MYELOGRAM 2 OR MORE REGIONS, CTLUMBAR POST MYELOGRAM, CT CERVICAL POST MYELOGRAM, DATE/TIME OF EXAM:12/08/2024 10:34 AM, LOCATION [facility] INDICATION: M54.50: Lumbar spine pain ADDITIONAL CLINICAL INFORMATION: Ordering Provider Reason For Exam: myelopathy (accession [id number]), chronic low back pain (accession [id number]) Technologist Note: None. Additional: None. EXAMINATION: 1.Lumbar [...] The patient wasthen transferred to the healthcare network consultant unit for further observation and 2hours of [...] island in the right aspect of the J0maahrbixc body. Vertebral bodies are normal in height [...] is no high-grade central canal stenosis. Thereis ttdv-gw-mmyujaiu facet osteoarthritis. There is mild bilateral neural [...] 1.Multilevel degenerative disc and joint disease as cfvgfoymlshyx-yw-hokyb above, worse at L4-L5, as outlined. 2.Transitional anatomy as noted above. The report is dictated by Addi Arambula MD, (vice president compliance) Attending Physician: Dr. Magdalena Blackmon Commercial Truck Driver: Dr. Addi Arambula MD, (vice president compliance) The procedure was performed by the: The assistant center director, and the attending radiologist was present for [...] CT Cervical Post Myelogram (12/08/2024 10:25 AM MACHINE SET UP OPERATOR) Anatomical Region Laterality Modality Spine Computed Tomogra phy 12/08/2024 1:17 PM MACHINE SET UP OPERATOR Impressions 12/13/2024 12:15 PM MACHINE SET UP OPERATOR IMPRESSION: 1.Successful lumbar puncture for cervical [...] degenerative disc and joint disease as detailed hnfpb-py-wkdup above, worse at L4-L5, as outlined. 2.Transitional anatomy as noted above. The report is dictated by Addi Arambula MD, (vice president compliance) Attending Physician: Dr. Magdalena Blackmon Commercial Truck Driver: Dr. Addi Arambula MD, (vice president compliance) The procedure was performed by the: The assistant center director, and the attending radiologist was present for [...] 12/13/2024 12:15 PM Narrative 12/13/2024 12:15 PM MACHINE SET UP OPERATOR PROCEDURE: FL MYELOGRAM 2 OR MORE REGIONS, CT LUMBAR POST MYELOGRAM, CT CERVICAL POST MYELOGRAM DATE/TIME OF EXAM: 12/08/2024 10:34 AM CLINICAL INFORMATION: PROCEDURE: FL MYELOGRAM 2 OR MORE REGIONS, CT LUMBAR POST MYELOGRAM, CT CERVICAL POST MYELOGRAM, DATE/TIME OF EXAM: 12/08/2024 10:34 AM, LOCATION [facility] INDICATION: M54.50: Lumbar spine pain ADDITIONAL CLINICAL INFORMATION: Ordering Provider Reason For Exam: myelopathy (accession [id number]), chronic low back pain (accession [id number]) Technologist Note: None. Additional: None. EXAMINATION: 1.Lumbar [...] patient was then transferred to the healthcare network consultant unit for further observation and 2 hours [...] no high-grade central canal stenosis. There is vijy-zf-pzpmlgkn facet osteoarthritis. There is mild bilateral neural foraminal stenosis. Procedure Note Magdalena Blackmon MD - 12/13/2024 PROCEDURE: FL MYELOGRAM 2 OR MORE REGIONS, CT LUMBAR POST MYELOGRAM, CT CERVICAL POST MYELOGRAM DATE/TIME OF EXAM: 12/08/2024 10:34 AM CLINICAL INFORMATION: PROCEDURE: FL MYELOGRAM 2 OR MORE REGIONS, CTLUMBAR POST MYELOGRAM, CT CERVICAL POST MYELOGRAM, DATE/TIME OF EXAM:12/08/2024 10:34 AM, LOCATION [facility] INDICATION: M54.50: Lumbar spine pain ADDITIONAL CLINICAL INFORMATION: Ordering Provider Reason For Exam: myelopathy (accession [id number]), chronic low back pain (accession [id number]) Technologist Note: None. Additional: None. EXAMINATION: 1.Lumbar [...] The patient wasthen transferred to the healthcare network consultant unit for further observation and 2hours of [...] island in the right aspect of the S4jfsheklmn body. Vertebral bodies are normal in height [...] is no high-grade central canal stenosis. Thereis lwfq-vk-mkwqmnlc facet osteoarthritis. There is mild bilateral neural [...] 1.Multilevel degenerative disc and joint disease as lgxwdquwmuhpc-ub-iqdwp above, worse at L4-L5, as outlined. 2.Transitional anatomy as noted above. The report is dictated by Addi Arambula MD, (vice president compliance) Attending Physician: Dr. Magdalena Blackmon Commercial Truck Driver: Dr. Addi Arambula MD, (vice president compliance) The procedure was performed by the: The assistant center director, and the attending radiologist was present for [...] Entire 2 or 3Vw (11/23/2024 11:09 AM MACHINE SET UP OPERATOR) Anatomical Region Laterality Modality Spine Radiographic Joesphine ging 11/23/2024 11:3 1 AM MACHINE SET UP OPERATOR Impressions 11/23/2024 11:34 AM MACHINE SET UP OPERATOR IMPRESSION: Mild scoliosis. > Interpreting Provider: Baljinder Dunbar MD on 11/23/2024 11:34 AM Narrative 11/23/2024 11:34 AM MACHINE SET UP OPERATOR PROCEDURE: XR SPINE ENTIRE 2 OR [...] 10 degrees, a lower thoracic levo curve degrees, and a lumbar dextro curve measuring [...] Spine 2 or 3Vw (11/23/2024 11:06 AM MACHINE SET UP OPERATOR) Anatomical Region Laterality Modality Spine Radiographic Josephine ging 11/23/2024 11:2 9 AM MACHINE SET UP OPERATOR Impressions 11/23/2024 11:31 AM MACHINE SET UP OPERATOR IMPRESSION: Moderate cervical spondylosis. > Interpreting Provider: Baljinder Dunbar MD on 11/23/2024 11:31 AM Narrative 11/23/2024 11:31 AM MACHINE SET UP OPERATOR PROCEDURE: XR CERVICAL SPINE 2 OR [...] Spine 2 or 3Vw (11/23/2024 10:00 AM MACHINE SET UP OPERATOR) Anatomical Region Laterality Modality Spine Computed Radiogr aphy 11/23/2024 10:3 8 AM MACHINE SET UP OPERATOR Impressions 11/23/2024 10:39 AM MACHINE SET UP OPERATOR IMPRESSION: Mild to moderate degenerative changes. > Interpreting Provider: Baljinder Dunbar MD on 11/23/2024 10:39 AM Narrative 11/23/2024 10:39 AM MACHINE SET UP OPERATOR PROCEDURE: XR LUMBAR SPINE 2 OR [...] ORDERABLES * PATHOLOGY TISSUE (11/11/2024 10:16 AM MACHINE SET UP OPERATOR) Only the most recent of2 resultswithin the time period is included. Case Report Surgical Pathology Report Case: [id number] Authorizing Provider: Sixto Cornell MD Collected: 11/11/2024 10:16 AM Ordering Location: [facility] Received: 11/11/2024 10:58 AM Pathologist: Kenyatta Norris MD Specimens: A) - Polyp Ascending, ascending colon polyp B) - Polyp Descending, descending colon polyps 11/14/2024 3:20 PM [facility] Final Diagnosis Large intestine, ascending colon polyp, biopsy (A): - Tubular adenoma Large intestine, descending colon polyps, biopsy (B): - Tubular adenoma(s), fragmented 11/14/2024 3:20 PM [facility] Microscopic Description and Comment Microscopic examination substantiates the final diagnosis. 11/14/2024 3:20 PM [facility] Clinical History The patient is a 69-year-old woman who presents for high risk colon cancer surveillance (personal history of colonic polyps). Operative procedure/findings: Colonoscopy - 2 mm ascending colon polyp, 4 and 5 mm descending colon polyps, resected and retrieved 11/14/2024 3:20 PM [facility] Gross Description The [...] cassette labeled B1. RB 11/14/2024 3:20 PM [facility] Pathologist Location at [facility] 11/14/2024 3:20 PM [facility] Disclaimer The performance characteristics of all immunohistochemical and indirect immunofluorescence stains (if any) cited in this report were determined by the Histopathology Laboratory of [facility]. Some of these tests were [...] the attending (teaching) pathologist. 11/14/2024 3:20 PM [facility] Embedded Images 11/14/2024 3:20 PM [facility] Biopsy, NOS POLYP / Unknown 11/11/2024 1 0:16 AM MACHINE SET UP OPERATOR 11/11/2024 10:58 AM MACHINE SET UP OPERATOR Comment:Pre-op diagnosis: Screen for colon cancer [Z12.11] Biopsy, NOS POLYP / Unknown 11/11/2024 1 0:19 AM MACHINE SET UP OPERATOR 11/11/2024 10:58 AM MACHINE SET UP OPERATOR Comment:Pre-op diagnosis: Screen for colon cancer [Z12.11] Sixto Cornell MD LAB - PATHOLOGY/CYTO LOGY ORDERABLES Performing Organization Address City/State/[facility] Phone Number [facility] [address] [phone] * ENDOSCOPY, COLON, SCREENING (11/11/2024 9:52 AM MACHINE SET UP OPERATOR) Report Endoscopy POC Endoscopy Department Report [...] preparation was evaluated using the BBPS ([place] Bowel Preparation Scale) with scores of: Right [...] non-mariscal portions. Procedure Code(s): --- Professional --- 11947, Colonoscopy, flexible; with removal of tumor(s), polyp(s), or other lesion(s) by snare technique 37424, 59, Colonoscopy, flexible; with biopsy, single or multiple Diagnosis Code(s): --- Professional --- Z86.010, Personal history of colonic polyps D12.2, Benign neoplasm of ascending colon D12.4, Benign neoplasm of descending colon K57.30, Diverticulosis of large intestine without perforation or abscess without bleeding CPT copyright 2021 [employer]. All rights reserved. The codes documented in this report are preliminary and upon frame fixer review may be revised to meet current compliance requirements. Sixto Cornell MD 11/11/2024 10:36:45 AM This report has been signed electronically. Note Initiated On: 11/11/2024 9:52 AM Number of Addenda: [address] [place] [address] [facility] 11/11/2024 9:52 AM MACHINE SET UP OPERATOR Sixto Cornell MD GI PROCEDURE ORDERAB LES Performing Organization Address City/[facility] Co de Phone Number [facility] * GLUCOSE - POINT OF CARE (11/11/2024 9:19 AM MACHINE SET UP OPERATOR) Only the most recent of16 resultswithin the time period is included. Pathologist [facility] Glucose WB/POC 99 70 - 99 mg/dL 11/11/2024 9:54 AM MACHINE SET UP OPERATOR [facility] Specimen Type Venous 11/11/2024 9:54 AM MACHINE SET UP OPERATOR [facility] Blood BLOOD SPECIMEN / Unknown 11/11/2024 9:19 AM MACHINE SET UP OPERATOR 11/11/2024 9:54 AM MACHINE SET UP OPERATOR Sixto Cornell MD LAB - POINT OF CARE ORDERABLES Performing Organization Address [facility] Co de Phone Number [facility] [address] [place] [address], [facility] [phone] * CALPROTECTIN FECAL (11/07/2024 3:52 PM MACHINE SET UP OPERATOR) Pathologist [facility] Calprotectin Fecal 69 mcg/g [facility] Comment: Reference [...] suggested for borderline values. Test Performed at: [employer] [facility] [address] [place] [address] JARRELL CALDERON MD,PHD,EDGARDO Stool STOOL SPECIMEN / Unknown 11/07/2024 3:52 PM MACHINE SET UP OPERATOR 11/08/2024 4:47 AM MACHINE SET UP OPERATOR Yolanda Greer [employer]LECT[employer]ICAL ENGINEERING DESIGN[employer] [facility] - CRISTINA DY FLUID ORDERABLES Performing Organization Address [facility] Co de Phone Number [address] [address] * CULTURE STOOL PANEL (11/07/2024 3:52 PM MACHINE SET UP OPERATOR) Campylobacter Antigen [facility] Comment: CAMPYLOBACTER SPP. AG,EIA Micro Number: [id number] Test Status: Final Specimen Source: Stool Specimen Quality: Adequate Campy Ag Result: Not Detected Reference Range: Not Detected EIA [facility] Comment: SHIGA TOXINS, EIA W/RFL TO E.COLI O157 CULTURE Micro Number: [id number] Test Status: Final Specimen Source: Stool Specimen Quality: Adequate Shiga Toxin: Not Detected Reference Range: Not Detected Culture [facility] Comment: SALMONELLA AND SHIGELLA, CULTURE Micro Number: [id number] Test Status: Final Specimen Source: Stool Specimen Quality: Adequate Result: No Salmonella or Shigella isolated Test Performed at: [facility] [address] SAROJ FAUSTIN MD Stool STOOL SPECIMEN / Unknown 11/07/2024 3:52 PM MACHINE SET UP OPERATOR 11/07/2024 11:51 PM MACHINE SET UP OPERATOR Yolanda Greer ELECTRICAL ENGINEERING DESIGNER-CHAR FILTER TANK TENDER LAB - [place] CROBIOLOGY ORDERABLES Performing Organization Address [facility] de Phone Number [address] [address] * C DIFFICILE CYTOTOXIN (11/07/2024 3:51 PM MACHINE SET UP OPERATOR) Cytotoxin Assay Stool NOT DETECTED [facility] [...] (GDH) with Reflex to PCR, order code 22671 or Clostridium difficile toxin B, Qualitative real time PCR, test code 53553 to be more sensitive and timely methods for the diagnosis of C. difficile colitis. For additional information, please refer to http://education.Run My Errands/faq/MVS092 (This link is being provided for informational/ educational purposes only.) Test Performed at: [facility] [address] [facility] [place] [address] JARRELL CALDERON MD,PHD,EDGARDO Stool STOOL SPECIMEN / Unknown 11/07/2024 3:51 PM MACHINE SET UP OPERATOR 11/08/2024 4:58 AM MACHINE SET UP OPERATOR Yolanda Percy ELECTRICAL ENGINEERING DESIGNER-CHAR FILTER TANK TENDER LAB - [place] CROBIOLOGY ORDERABLES [facility] [address] [place] [address] * PROC DEEP BRAIN STIMULATOR (11/03/2024 2:08 PM MACHINE SET UP OPERATOR) Narrative Moncho Salcedo APRN-CNP - 11/03/2024 2:08 PM MACHINE SET UP OPERATOR Moncho Salcedo APRN-CNP 11/03/2024 4:00 PM Please see office notes for documentation- Thanks Moncho Salcedo ELECTRICAL ENGINEERING DESIGNER-CHAR FILTER TANK TENDER PROCEDURE/MINOR SURGICAL ORDERABLES * XR Knee Left 4Vw or More (09/19/2024 9:18 AM MACHINE SET UP OPERATOR) Anatomical Region Laterality Modality Lower Extremity Digital Radiogra phy 09/19/2024 10:0 4 AM MACHINE SET UP OPERATOR Impressions 09/19/2024 10:41 AM MACHINE SET UP OPERATOR IMPRESSION: No acute fracture or dislocation identified. Report dictated by Arnoldo Walker MD (vice president compliance). I, Baljinder Dunbar MD have personally reviewed and interpreted this examination/study. > Interpreting Provider: Baljinder Dunbar MD on 09/19/2024 10:41 AM Narrative 09/19/2024 10:41 AM MACHINE SET UP OPERATOR PROCEDURE: XR KNEE LEFT 4VW OR MORE, DATE/TIME OF EXAM: 09/19/2024 9:19 AM, LOCATION [facility] INDICATION: M25.562: Acute pain of left knee ADDITIONAL CLINICAL INFORMATION: COMPARISON: None. FINDINGS: The osseous structures are intact and well aligned without acute fracture or dislocation. The knee joint space is preserved. No joint effusion is seen. Procedure Note Baljinder Dunbar MD - 09/19/2024 PROCEDURE: XR KNEE LEFT 4VW OR MORE, DATE/TIME OF EXAM: 09/19/2024 9:19 AM, LOCATION [facility] INDICATION: M25.562: Acute pain of left knee ADDITIONAL CLINICAL INFORMATION: COMPARISON: None. FINDINGS: The osseous structures are intact and well aligned without acutefracture or dislocation. The knee joint space is preserved. No joint effusion is seen. IMPRESSION: No acute fracture or dislocation identified. Report dictated by Arnoldo Walker MD (vice president compliance). IBaljinder MD have personally reviewed and interpreted this examination/study. > Interpreting Provider: Baljinder Dunbar MD on 09/19/2024 10:41 AM Kerry Coffman DO DIAGNOSTIC IMAGING O RDERABLES * XR Lumbar Spine 4Vw or More (09/19/2024 9:18 AM MACHINE SET UP OPERATOR) Anatomical Region Laterality Modality Spine Digital Radiogra phy 09/19/2024 10:2 2 AM MACHINE SET UP OPERATOR Impressions 09/19/2024 3:01 PM MACHINE SET UP OPERATOR IMPRESSION: Moderate dextroscoliosis. Grade 1 anterior spondylolisthesis of L4 relative to L5 seen in association with mild instability as discussed above. > Dictated by Kim Noonan MD, (vice president compliance). ISergio MD have personally reviewed and interpreted this examination/study. > Interpreting Provider: Sergio Omalley MD on 09/19/2024 3:01 PM Narrative 09/19/2024 3:01 PM MACHINE SET UP OPERATOR PROCEDURE: XR LUMBAR SPINE 4VW OR MORE, DATE/TIME OF EXAM: 09/19/2024 9:19 AM, LOCATION [facility] INDICATION: M54.50: Acute bilateral low back pain [...] MORE, DATE/TIME OF EXAM: 49:19 AM, LOCATION [facility] INDICATION: M54.50: Acute bilateral low back pain [...] Dictated by Kim Noonan MD, (vice president compliance). I, Sergio Omalley MD have personally reviewed and interpreted this examination/study. > Interpreting Provider: Sergio Omalley MD on 09/19/2024 3:01 PM Kerry Coffman DO DIAGNOSTIC IMAGING O RDERABLES * PROC DEEP BRAIN STIMULATOR (09/01/2024 8:53 AM MACHINE SET UP OPERATOR) Narrative Rissa Vo MD - 09/01/2024 8:53 AM MACHINE SET UP OPERATOR Rissa Vo MD 09/01/2024 8:53 AM Please see procedure notes Rissa Maldonado MD PROCEDURE/GODWIN R SURGICAL ORDERABLES * ALLERGEN BIRCH IGE (08/17/2024 1:51 PM MACHINE SET UP OPERATOR) Allergen Birch <0.10 kU/L [facility] Class 0 [facility] Comment: Test Performed at: [facility] [address] [place] [address] SAROJ FAUSTIN MD Blood BLOOD SPECIMEN / Unknown 08/17/2024 1:51 PM MACHINE SET UP OPERATOR 08/17/2024 1:51 PM MACHINE SET UP OPERATOR Papito Morales MD LAB - SEROLOGY ORDER RHONDA Performing Organization Address [facility] Co de Phone Number [facility] [address] [place] [address] * ALLERGEN INTERPRETATION (08/17/2024 1:51 PM MACHINE SET UP OPERATOR) Interpretation See Below [facility] Comment: Specific [...] analytical performance characteristics have been determined by [employer]. It has not been cleared or approved by the U.S. Food and Drug Administration. This assay has been validated pursuant to the CLIA regulations and is used for clinical purposes. Test Performed at: [facility] [address] [place] [address] SAROJ FAUSTIN MD 08/17/2024 1:51 PM MACHINE SET UP OPERATOR 08/17/2024 1:51 PM MACHINE SET UP OPERATOR Papito Morales MD LAB - SEROLOGY ORDER RHONDA Performing Organization Address [facility] Co de Phone Number [facility] [address] [place] [address] * ALLERGEN RESPIRATORY PNL REGION 8 ([place]) (08/17/2024 1:51 PM MACHINE SET UP OPERATOR) Allergen Dermatophagoides pteronyssinus <0.10 kU/L [facility] [...] kU/L [facility] Class 0 [facility] Allergen Cockroach Israeli <0.10 kU/L [facility] Class 0 [facility] Allergen Maple <0.10 kU/L [facility] Class 0 [facility] Allergen Mountain Freestone <0.10 kU/L [facility] Class 0 [facility] Allergen Bunch Tree <0.10 kU/L [facility] Class 0 [facility] Allergen Great River <0.10 kU/L [facility] Class 0 [facility] Allergen Kosciusko Tree <0.10 kU/L [facility] Class 0 [facility] Allergen White Bassam <0.10 kU/L [facility] Class 0 [facility] Allergen Pleasant City <0.10 kU/L [facility] Class 0 [facility] Allergen Elm <0.10 kU/L [facility] Class 0 [facility] Allergen San Jacinto/Pecan Tree <0.10 kU/L [facility] Class 0 [facility] Allergen White Summit <0.10 kU/L [facility] Class 0 [facility] Allergen Bermuda Grass <0.10 kU/L [facility] Class 0 [facility] Allergen Paresh Grass <0.10 kU/L [facility] Class 0 [facility] Allergen Common Ragweed <0.10 kU/L [facility] Class 0 [facility] Allergen Rough Pigweed <0.10 kU/L [facility] Class 0 [facility] Allergen Pitcairn Islander Thistle <0.10 kU/L [facility] Class 0 [facility] Allergen Rough Veliz Elder <0.10 kU/L [facility] Class 0 [facility] Allergen Mouse Urine Protein <0.10 kU/L [facility] Class 0 [facility] IgE 12 <PX=207 kU/L [facility] Comment: Test Performed at: [facility] [place] [address] [place] [address] SAROJ FAUSTIN MD Blood BLOOD SPECIMEN / Unknown 08/17/2024 1:51 PM MACHINE SET UP OPERATOR 08/17/2024 1:51 PM MACHINE SET UP OPERATOR Papito Morales MD LAB - CHEMISTRY SOTERO PATEL [facility] [address] [place] [address] * [employer] AUTO VISUAL FIELD EXTENDED (08/11/2024 [...] preparation was evaluated using the BBPS ([place] Bowel Preparation Scale) with scores of: Right [...] entire procedure. Procedure Code(s): --- Professional --- 84960, Colonoscopy, flexible; with biopsy, single or multiple Diagnosis Code(s): --- Professional --- K64.0, First degree hemorrhoids K52.9, Noninfective gastroenteritis and colitis, unspecified CPT copyright 2021 [employer]. All rights reserved. The codes documented in this report are preliminary and upon frame fixer review may be revised to meet current compliance requirements. Colt Menchaca, 07/29/2024 9:27:51 AM Note Initiated On: 07/29/2024 9:03 AM Number of Addenda: 0 [facility] [address] [place] [address] [facility] [employer]OVATION 07/29/2024 9:03 AM CDT Colt Menchaca [...] entire procedure. Procedure Code(s): --- Professional --- 86852, Esophagogastroduo denoscopy, flexible, transoral; with biopsy, single or multiple Diagnosis Code(s): --- Professional --- K29.70, Gastritis, unspecified, without bleeding R19.7, Diarrhea, unspecified CPT copyright 2021 [employer]. All rights reserved. The codes documented in this report are preliminary and upon frame fixer review may be revised to meet current compliance requirements. Colt Menchaca, 07/29/2024 9:07:01 AM Note Initiated On: 07/29/2024 8:35 AM Number of Addenda: [id number] [place] [address] PROVATION 07/29/2024 8:35 AM CDT Colt Menchaca MD GI PROCEDURE O RDERABLES [facility] * FUNDUS PHOTO BOTH EYES (07/28/2024 [...] Maldonado MD PROCEDURE/GODWNI R SURGICAL ORDERABLES * TISSUE TRANSGLUTAMINASE AB IGG (07/20/2024 11:49 AM CDT) Tissue Transglutaminase Ab, IgG <0.82 0.00 - 4.99 FLU 07/22/2024 5:45 AM CDT [employer] ([facility]) Comment: INTERPRETIVE INFORMATION: Tissue Transglutaminase Ab, IgG [...] in patients without IgA deficiency. Performed By: [facility] [address] [place] [address] Amphibious Operations Officer: Richard Guerin MD, PhD CLIA Number: [id number] Blood BLOOD SPECIMEN / Unknown Lab Venipuncture / Unknown 07/20/2024 11:49 AM CDT 07/20/2024 12:25 PM CDT Yolanda Greer ELECTRICAL ENGINEERING DESIGNER-CHAR FILTER TANK TENDER LAB - CH EMISTRY ORDERABLES [employer] ([facility]) [address] [place] [address] * TISSUE TRANSGLUTAMINASE AB IGA (07/20/2024 11:49 AM CDT) Tissue Transglutaminase (tTG) Ab, IgA 1.83 0.00 - 4.99 FLU 07/22/2024 5:45 AM CDT [facility] ([facility]) Comment: INTERPRETIVE INFORMATION: Tissue Transglutaminase (tTG) Antibody, [...] indicate a response to therapy. Performed By: [facility] [address] [place] [address] Amphibious Operations Officer: Richard Guerin MD, PhD CLIA Number: [id number] Blood BLOOD SPECIMEN / Unknown Lab Venipuncture / Unknown 07/20/2024 11:49 AM CDT 07/20/2024 12:27 PM CDT Yolanda Greer ELECTRICAL ENGINEERING DESIGNER-CHAR FILTER TANK TENDER LAB - ROLOGY ORDERABLES [facility] [employer] [facility]) [address] * C-REACTIVE PROTEIN (07/20/2024 11:49 AM CDT) C-Reactive Protein 0.5 <=0.5 mg/dL 07/20/2024 12:52 PM CDT [facility] Blood BLOOD SPECIMEN / Unknown Lab Venipuncture / Unknown 07/20/2024 11:49 AM CDT 07/20/2024 12:17 PM CDT Yolanda Greer APRN-CHAR FILTER TANK TENDER [employer] EMISTRY ORDERABLES [facility] [address] [place] [address], [facility] [phone] * VITAMIN D 25-HYDROXY (07/20/2024 11:49 AM CDT) Only the most recent of2 resultswithin the time period is included. Vitamin D, 25 Hydroxy 51.6 30.0 - 80.0 ng/mL 07/20/2024 1:18 PM CDT [facility] Comment: The recommendations for 25-Hydroxy Vitamin D [...] CDT 07/20/2024 12:17 PM CDT Yolanda Greer [facility] EMISTRY ORDERABLES Performing Organization Address City/[facility]/ZIP Co de Phone Number [facility] [address] [place] [address], [facility] [phone] * (ABNORMAL) CBC W/ DIFFERENTIAL (07/20/2024 11:49 AM CDT) Only the most recent of6 resultswithin the time period is included. WBC 4.0 4.0 - 10.7 x10E9/L 07/20/2024 12:24 PM CDT [facility] RBC Count 4.48 3.90 - 5.20 x10E12/L 07/20/2024 12:24 PM CDT [facility] Hemoglobin 13.9 11.9 - 15.8 g/dL 07/20/2024 12:24 PM CDT [facility] Hematocrit 42.5 34.8 - 46.1 % 07/20/2024 12:24 PM [facility] MCV 94.9 80.0 - 98.0 fL 07/20/2024 12:24 PM [facility] MCH 31.0 26.7 - 33.6 pg 07/20/2024 12:24 PM [facility] MCHC 32.7 31.7 - 36.3 g/dL 07/20/2024 12:24 PM [facility] RDW-CV 13.2 11.3 - 14.8 % 07/20/2024 12:24 PM [facility] Platelet Count 225 150 - 420 x10E9/L 07/20/2024 12:24 PM [facility] MPV 9.7 7.8 - 11.4 fL 07/20/2024 12:24 PM [facility] Neutrophil % 68.4 41.0 - 74.0 % 07/20/2024 12:24 PM [facility] Lymphocyte % 19.0 17.0 - 47.0 % 07/20/2024 12:24 PM [facility] Monocyte % 9.0 3.0 - 11.0 % 07/20/2024 12:24 PM [facility] Eosinophil % 1.8 0.0 - 7.0 % 07/20/2024 12:24 PM [facility] Basophil % 1.3 0.0 - 1.6 % 07/20/2024 12:24 PM [facility] Immature Granulocytes % 0.5 0.0 - 1.0 % 07/20/2024 12:24 PM [facility] Neutrophil Absolute 2.74 1.60 - 7.50 x10E9/L 07/20/2024 12:24 PM [facility] Lymphocyte Absolute 0.76(L) 1.00 - 4.40 x10E9/L 07/20/2024 12:24 PM [facility] Monocyte Absolute 0.36 0.15 - 1.00 x10E9/L 07/20/2024 12:24 PM [facility] Eosinophil Absolute 0.07 0.00 - 0.60 x10E9/L 07/20/2024 12:24 PM [facility] Basophil Absolute 0.05 0.00 - 0.13 x10E9/L 07/20/2024 12:24 PM [facility] Blood BLOOD SPECIMEN / Unknown Lab Venipuncture / Unknown 07/20/2024 11:49 AM CDT 07/20/2024 12:17 PM CDT Yolanda Greer ELECTRICAL ENGINEERING DESIGNER-CHAR FILTER TANK TENDER LAB - HE MATOLOGY ORDERABLES [facility] [address] [place] [address], [facility] [phone] * (ABNORMAL) COMPREHENSIVE METABOLIC PANEL (07/20/2024 11:49 AM CDT) BUN 10 7 - 26 mg/dL 07/20/2024 12:52 PM [facility] Creatinine 0.80 0.56 - 0.96 mg/dL 07/20/2024 12:52 PM [facility] Sodium 139 136 - 145 mmol/L 07/20/2024 12:52 PM [facility] Potassium 4.3 3.5 - 4.5 mmol/L 07/20/2024 12:52 PM [facility] Chloride 103 98 - 107 mmol/L 07/20/2024 12:52 PM [facility] CO2 28 22 - 29 mmol/L 07/20/2024 12:52 PM [facility] Glucose 165(H) 70 - 115 mg/dL 07/20/2024 12:52 PM [facility] Calcium 9.8 8.4 - 10.2 mg/dL 07/20/2024 12:52 PM [facility] Protein Total 7.1 6.0 - 8.3 g/dL 07/20/2024 12:52 PM [facility] Albumin 4.2 3.4 - 5.0 g/dL 07/20/2024 12:52 PM [facility] Bilirubin Total 0.2 0.2 - 1.2 mg/dL 07/20/2024 12:52 PM [facility] Alkaline Phosphatase 124 40 - 150 U/L 07/20/2024 12:52 PM [facility] ALT 16 5 - 55 U/L 07/20/2024 12:52 PM [facility] AST 20 5 - 34 U/L 07/20/2024 12:52 PM [facility] Anion Gap 8 6 - 16 07/20/2024 12:52 PM [facility] BUN/Creatinine Ratio 13 7 - 23 07/20/2024 12:52 PM [facility] Osmolality Calculated 291 275 - 295 mOsm/kg 07/20/2024 12:52 PM [facility] Albumin/Globulin Ratio 1.4 1.1 - 2.3 07/20/2024 12:52 PM [facility] eGFR by CKD-EPI 80(L) >=90 mL/min/1.7 3 m2 07/20/2024 12:52 PM [facility] Blood BLOOD SPECIMEN / Unknown Lab Venipuncture / Unknown 07/20/2024 11:49 AM CDT 07/20/2024 12:17 PM CDT Yolanda Greer APRNARELY LAB - CH EMISTRY ORDERABLES Performing Organization Address City/[facility]/ZIP Co de Phone Number [address] [address], [facility] [phone] * FOLATE (07/20/2024 11:49 AM CDT) Only the most recent of2 resultswithin the time period is included. Folate 13.1 7.0 - 31.4 ng/mL 07/20/2024 1:18 PM T [facility] Blood BLOOD SPECIMEN / Unknown Lab Venipuncture / Unknown 07/20/2024 11:49 AM CDT 07/20/2024 12:17 PM CDT [facility]olanda Greer [facility] - [place] EMISTRY ORDERABLES Performing Organization Address City/[facility]/ZIP Co de Phone Number [address] [address], [place] [phone] * (ABNORMAL) VITAMIN B12 (07/20/2024 11:49 AM CDT) Only the most recent of2 resultswithin the time period is included. Vitamin B12 1,090(H) 213 - 816 pg/mL 07/20/2024 1:18 PM CDT [facility] Blood BLOOD SPECIMEN / Unknown Lab Venipuncture / Unknown 07/20/2024 11:49 AM CDT 07/20/2024 12:17 PM CDT Yolanda Greer [facility] LAB - [place] EMISTRY ORDERABLES [address] [address], [facility] [phone] * IRON + TRANSFERRIN PANEL [w/Transferrin Sat % + TIBC] (07/20/2024 11:49 AM CDT) Pathologist [facility] Iron 81 40 - 150 ug/dL 07/20/2024 12:40 PM CDT [facility] Transferrin 246 174 - 382 mg/dL 07/20/2024 12:40 PM CDT [facility] Transferrin Saturation % 26 16 - 50 % 07/20/2024 12:40 PM CDT [facility] TIBC Calculated 308 240 - 450 ug/dL 07/20/2024 12:40 PM CDT [facility] Blood BLOOD SPECIMEN / Unknown Lab Venipuncture / Unknown 07/20/2024 11:49 AM CDT 07/20/2024 12:24 PM CDT Yolanda Greer [facility] LAB - [place] EMISTRY ORDERABLES [address] [address], [place] [phone] * IGA BLOOD (07/20/2024 11:49 AM CDT) IgA 147 61 - 356 mg/dL 07/20/2024 12:40 PM CDT [facility] Blood BLOOD SPECIMEN / Unknown Lab Venipuncture / Unknown 07/20/2024 11:49 AM CDT 07/20/2024 12:24 PM CDT Yolanda Greer ELECTRICAL ENGINEERING DESIGNERNEW [facility] LAB - CH EMISTRY ORDERABLES Performing Organization Address City/[facility]/ZIP Co de Phone Number [address] [address], [facility] [phone] * FERRITIN (07/20/2024 11:49 AM CDT) Ferritin 65 13 - 204 ng/mL 07/20/2024 12:57 PM CDT [facility] Blood BLOOD SPECIMEN / Unknown Lab Venipuncture / Unknown 07/20/2024 11:49 AM CDT 07/20/2024 12:24 PM CDT Yolanda Greer [facility] - CH EMISTRY ORDERABLES Performing Organization Address City/[facility]/ZIP Co de Phone Number [address] [address], [facility] [phone] * PROC DEEP BRAIN STIMULATOR (05/20/2024 12:16 [...] Hemoglobin A1c POCT 5.4 % CLAUDIA Sullivan [facility] BLOOD SPECIMEN / Unknown 04/04/2024 11:34 AM CDT Kerry Montemayorhbach DO LAB - POINT OF CARE ORDERABLES BELLA Sullivan [place] [address] [facility], [place] [address], [facility] [phone] * VT ANALYS BRN NPGT PRGRMG 15 MIN, VT ANALYS BRN NPGT PRGRMG ADDL 15 (01/13/2024 10:41 AM CDT) Narrative Rissa Vo MD - 01/13/2024 10:41 AM CDT Rissa Vo MD 01/13/2024 10:42 AM Please see procedure notes Rissa Maldonado MD PROCEDURE/GODWIN R SURGICAL ORDERABLES * VT ANALYS BRN NPGT PRGRMG 15 MIN, VT ANALYS BRN NPGT PRGRMG ADDL 15 (12/11/2023 3:30 PM MACHINE SET UP OPERATOR) Narrative Moncho Salcedo APRN-CHAR FILTER TANK TENDER - 12/11/2023 3:30 PM MACHINE SET UP OPERATOR Moncho Salcedo APRN-CHAR FILTER TANK TENDER 12/14/2023 9:26 AM Please see office notes for documentation Thanks Moncho Salcedo ELECTRICAL ENGINEERING DESIGNER-CHAR FILTER TANK TENDER PROCEDURE/MINOR SURGICAL ORDERABLES * VT ANALYS BRN NPGT PRGRMG 15 MIN, VT ANALYS BRN NPGT PRGRMG ADDL 15 (08/05/2023 1:24 PM CDT) Narrative Rissa Vo MD - 08/05/2023 1:24 PM CDT Rissa Vo MD 08/05/2023 1:25 PM Please see procedure notes Rissa Maldonado MD PROCEDURE/GODWIN R SURGICAL ORDERABLES * VT ANALYS BRN NPGT PRGRMG ADDL 15, VT ANALYS BRN NPGT PRGRMG 15 MIN (03/05/2023 [...] within a diagnostic category. Test Performed at: [facility] [address] [place] [address] SAROJ FAUSTIN MD 02/05/2023 12:2 6 PM CDT 02/05/2023 12:27 PM CDT Marquise Adames MD LAB - URINE CHEMISTR Y ORDERABLES [facility] [address] [place] [address] * (ABNORMAL) BASIC METABOLIC PANEL (CALCIUM TOTAL) [...] 10.4 mg/dL [facility] Comment: Test Performed at: [facility] [address] SAROJ FAUSTIN MD 02/05/2023 12:2 6 PM CDT 02/05/2023 12:27 PM CDT Marquise Adaems MD LAB - CHEMISTRY SOTERO PATEL Performing Organization Address City/[facility]/ZIP Co de Phone Number [address] [address] * CALCIUM URINE RANDOM (02/05/2023 12:26 PM CDT) [facility] Calcium Random Urine 5.1 mg/dL [facility] Comment: Reference Range Not established Test Performed at: [facility] [address] [place] [address] SAROJ FAUSTIN MD 02/05/2023 12:2 6 PM CDT 02/05/2023 12:27 PM CDT Marquise Adames MD LAB - URINE CHEMISTR Y ORDERABLES Performing Organization Address City/[facility]/ZIP Co de Phone Number [address] [address] * VT ANALYS BRN NPGT PRGRMG 15 MIN, VT ANALYS BRN NPGT PRGRMG ADDL 15 (12/07/2022 2:14 PM MACHINE SET UP OPERATOR) Narrative Rissa Vo MD - 12/07/2022 2:14 PM MACHINE SET UP OPERATOR Rissa Vo MD 12/07/2022 2:14 PM Please see procedure notes Rissa Maldonado MD PROCEDURE/GODWIN R SURGICAL ORDERABLES * VT ANALYS BRN NPGT PRGRMG 15 MIN, VT ANALYS BRN NPGT PRGRMG ADDL 15 (10/29/2022 1:08 PM MACHINE SET UP OPERATOR) Narrative Rissa Vo MD - 10/29/2022 1:08 PM MACHINE SET UP OPERATOR Rissa Vo MD 10/29/2022 1:11 PM Please see procedure notes Rissa Maldonado MD PROCEDURE/GODWIN R SURGICAL ORDERABLES * VT ANALYS BRN NPGT PRGRMG 15 MIN, VT ANALYS BRN NPGT PRGRMG ADDL 15, VT ANALYS BRN NPGT PRGRMG ADDL15 (10/01/2022 1:28 PM MACHINE SET UP OPERATOR) Narrative Rissa Vo MD - 10/01/2022 1:28 PM MACHINE SET UP OPERATOR Rissa Vo MD 10/01/2022 1:29 PM Please see procedure notes iRssa Maldonado MD PROCEDURE/GODWIN R SURGICAL ORDERABLES * CARDIAC EKG ORDER (09/01/2022 5:10 PM MACHINE SET UP OPERATOR) Only the most recent of2 resultswithin the time period is included. Narrative 09/01/2022 5:10 PM MACHINE SET UP OPERATOR Ordered by an unspecified provider. Scanned Document CARDIAC SERVICES ORD ERABLES * CT HEAD STEREOTACTIC (08/30/2022 4:02 AM MACHINE SET UP OPERATOR) Only the most recent of3 resultswithin the time period is included. Anatomical Region Laterality Modality Head Computed Tomogra phy 08/30/2022 4:05 AM MACHINE SET UP OPERATOR Impressions 08/30/2022 12:30 PM MACHINE SET UP OPERATOR IMPRESSION: 1.Expected postoperative changes from placement of a right frontal approach deep brain stimulator lead. Report dictated by Yuko Redman DO (vice president compliance). I, Shiloh Lofton MD have personally reviewed and interpreted this examination/study. > Interpreting Provider: Shiloh Lofton MD on 08/30/2022 12:30 PM Narrative 08/30/2022 12:30 PM MACHINE SET UP OPERATOR PROCEDURE: CT HEAD WO CONTRAST, DATE/TIME OF EXAM: 08/30/2022 4:03 AM, LOCATION [facility] INDICATION: G25.0: Benign essential tremor ADDITIONAL CLINICAL [...] products are noted along the right frontal yuriy hole. A left frontal approach deep brain [...] DATE/TIME OF EXAM: 08/30/2022 4:03 AM, LOCATION [facility] INDICATION: G25.0: Benign essential tremor ADDITIONAL CLINICAL [...] products are noted along the right frontal yuriy hole. A left frontal approach deep brain [...] dictated by Yuko Redman DO (vice president compliance). IShiloh MD have personally reviewed and interpreted this examination/study. > Interpreting Provider: Shiloh Lofton MD on 08/30/2022 12:30 PM Shailesh North MD CT ORDERABLES * XR SKULL 3VW OR LESS (08/29/2022 3:28 PM MACHINE SET UP OPERATOR) Only the most recent of2 resultswithin the time period is included. Anatomical Region Laterality Modality Head Radiographic Josephine ging 08/29/2022 3:33 PM MACHINE SET UP OPERATOR Impressions 08/29/2022 4:03 PM MACHINE SET UP OPERATOR IMPRESSION: Placement of a right deep brain stimulator lead via right frontoparietal yuriy hole. > Dictated by Harmeet Andersen DO (Spot Cleaner) Fang Gutierrez MD have personally reviewed and interpreted this examination/study. > Interpreting Provider: Fang Varela MD on 08/29/2022 4:03 PM Narrative 08/29/2022 4:03 PM MACHINE SET UP OPERATOR PROCEDURE: XR SKULL 3VW OR LESS, DATE/TIME OF EXAM: 08/29/2022 3:30 PM, LOCATION [facility] INDICATION: Z01.818: Pre-op evaluation ADDITIONAL CLINICAL INFORMATION: Ordering Provider Reason For Exam: post op COMPARISON: Skull radiograph dated 03/17/2022. FINDINGS: Interval placement of a right deep brain stimulator lead via a right frontoparietal yuriy hole and is directed toward the subthalamic nucleus, with tip right of midline. Skin martin are present. Previously demonstrated left DBS lead is again seen. Leads extend inferiorly through the neck and are intact. Procedure Note Fang Varela MD - 08/29/2022 PROCEDURE: XR SKULL 3VW OR LESS, DATE/TIME OF EXAM: 08/29/2022 3:30PM, LOCATION [facility] INDICATION: Z01.818: Pre-op evaluation ADDITIONAL CLINICAL INFORMATION: Ordering Provider Reason For Exam: post op COMPARISON: Skull radiograph dated 03/17/2022. FINDINGS: Interval placement of a right deep brain stimulator lead via a right frontoparietal yuriy hole and is directed toward the subthalamic nucleus, with tip right of midline. Skin martin are present. Previously demonstrated left DBS lead is again seen. Leads extend inferiorlythrough the neck and are intact. IMPRESSION: Placement of a right deep brain stimulator lead via right frontoparietal yuriy hole. > Dictated by Harmeet Andersen DO (Spot Cleaner) IFang MD have personally reviewed and interpreted this examination/study. > Interpreting Provider: Fang Varela MD on 08/29/2022 4:03 PM Shailesh Nroth MD DIAGNOSTIC IMAGING ORDERABLES * XR CHEST 1VW PORTABLE (08/29/2022 2:44 PM MACHINE SET UP OPERATOR) Only the most recent of2 resultswithin the time period is included. Anatomical Region Laterality Modality Chest Radiographic Josephine ging 08/29/2022 3:08 PM MACHINE SET UP OPERATOR Narrative 08/29/2022 3:22 PM MACHINE SET UP OPERATOR PROCEDURE: XR CHEST 1VW PORTABLE, DATE/TIME OF EXAM: 08/29/2022 2:44 PM, LOCATION [facility] INDICATION: G25.0: Benign essential tremor ADDITIONAL CLINICAL [...] dictated by Chris Rizvi MD (vice president compliance). Sravanthi Gutierrez MD have personally reviewed and interpreted this examination/study. > Interpreting Provider: Sravanthi Ellis MD on 08/29/2022 3:22 PM Procedure Note Karin Ellis MD - 08/29/2022 PROCEDURE: XR CHEST 1VW PORTABLE, DATE/TIME OF EXAM: 08/29/2022 2:44PM, LOCATION [facility] INDICATION: G25.0: Benign essential tremor ADDITIONAL CLINICAL [...] dictated by Chris Rizvi MD (vice president compliance). Sravanthi Gutierrez MD have personally reviewed and interpreted this examination/study. > Interpreting Provider: Sravanthi Ellis MD on 08/29/2022 3:22 PM Shailesh North MD DIAGNOSTIC IMAGING ORDERABLES * XR NECK SOFT TISSUE (08/29/2022 2:43 PM MACHINE SET UP OPERATOR) Only the most recent of2 resultswithin the time period is included. Anatomical Region Laterality Modality Head Radiographic Josephine ging 08/29/2022 3:25 PM MACHINE SET UP OPERATOR Impressions 08/29/2022 3:39 PM MACHINE SET UP OPERATOR IMPRESSION: Postoperative changes of right deep brain stimulator lead placement via right frontoparietal approach. > Dictated by Harmeet Andersen DO (Spot Cleaner) Fang Gutierrez MD have personally reviewed and interpreted this examination/study. > Interpreting Provider: Fang Varela MD on 08/29/2022 3:39 PM Narrative 08/29/2022 3:39 PM MACHINE SET UP OPERATOR PROCEDURE: XR NECK SOFT TISSUE, DATE/TIME OF EXAM: 08/29/2022 2:44 PM, LOCATION [facility] INDICATION: Z96.89: S/P deep brain stimulator placement [...] DATE/TIME OF EXAM: 08/29/2022 2:44 PM, LOCATION [facility] INDICATION: Z96.89: S/P deep brain stimulator placement [...] approach. > Dictated by Harmeet Andersen DO (Spot Cleaner) I, Fang Varela MD have personally reviewed and interpreted this examination/study. > Interpreting Provider: Fang Varela MD on 08/29/2022 3:39 PM Shailesh North MD DIAGNOSTIC IMAGING ORDERABLES * FL OARM SURGERY (08/29/2022 11:56 AM MACHINE SET UP OPERATOR) Only the most recent of2 resultswithin the time period is included. Narrative [facility] - 08/29/2022 11:58 AM MACHINE SET UP OPERATOR Fluoroscopy was used for this exam in the OR. Please see the Operative report. Shailesh North MD FLUOROSCOPY ORDERAB LES [facility] * ETT LINE PERFORMABLE (08/29/2022 11:47 AM MACHINE SET UP OPERATOR) Narrative Yudi Santana APRN-CRNA - 08/29/2022 11:47 AM MACHINE SET UP OPERATOR Yudi Santana APRN-CRNA 08/29/2022 11:57 AM Endotracheal Tube Placement: Patient Location: OR. Intubation Event Date/Time: 08/29/2022 11:47 AM Procedure: intubation ([id number]). Procedure Section: Sedation: under general anesthesia. Indications [...] TYPE + SCREEN PANEL (08/29/2022 6:19 AM MACHINE SET UP OPERATOR) Only the most recent of2 resultswithin the time period is included. Antibody Screen NEG 7:15 AM MACHINE SET UP OPERATOR [facility] ABO Rh A POS 08/29/2022 7:15 AM MACHINE SET UP OPERATOR [facility] Blood Bank BLOOD SPECIMEN / Unknown Venipuncture / Unknown 08/29/2022 6:19 AM MACHINE SET UP OPERATOR 08/29/2022 6:31 AM MACHINE SET UP OPERATOR [employer] T[employer] LAB - BLOOD B ANK ORDERABLES [facility] [address] [place] [address], [facility] [phone] * PTT [facility] (08/15/2022 11:57 AM CDT) Only the most recent of2 resultswithin the time period is included. APTT 30.8 23.0 - 38.4 Seconds 08/15/2022 1:10 PM CDT [facility] Comment:Suggested therapeuti c range for full dose I.V. unfractionated heparin therapy for venous thromboembolism is 71 to 109 seconds. Blood BLOOD SPECIMEN / Unknown Lab Venipuncture / Unknown 08/15/2022 11:57 AM CDT 08/15/2022 12:42 PM CDT Shailesh North MD LAB - COAGULATION O NATAN Performing Organization Address City/[facility] Co de Phone Number [facility] [address] [place] [address], [facility] [phone] * PT-INR [facility] (08/15/2022 11:57 AM CDT) Only the most recent of2 resultswithin the time period is included. PT 13.9 12.1 - 14.8 Seconds 08/15/2022 1:10 PM CDT [facility] INR 1.1 See Comment 08/15/2022 1:10 PM CDT [facility] Comment:The suggested therap eutic range for standard coumadin (warfarin) therapy is an INR of 2.0-3.0. For high-risk patients (Mechanical Mitral Valve Prosthesis, etc.), the suggested prophylactic therapeutic range is an INR of 2.5-3.5. Blood BLOOD SPECIMEN / Unknown Lab Venipuncture / Unknown 08/15/2022 11:57 AM CDT 08/15/2022 12:42 PM CDT Shailesh North MD LAB - COAGULATION O NATAN [facility] [address] [place] [address], [facility] [phone] * XR CHEST 2VW (08/15/2022 11:26 AM CDT) Only the most recent of2 resultswithin the time period is included. Anatomical Region Laterality Modality Chest Radiographic Josephine ging 08/15/2022 11:3 8 AM CDT Narrative 08/15/2022 4:38 PM CDT PROCEDURE: XR CHEST 2VW, DATE/TIME OF EXAM: 08/15/2022 11:27 AM, LOCATION [facility] INDICATION: Z01.818: Pre-op testing COMPARISON: Chest x-ray 03/24/2022 FINDINGS/IMPRESSION: Left-sided battery pack/degenerative device with the lead coursing superiorly into the soft tissues of the neck. Distal end of the lead is not seen There is no focal consolidation, pleural effusion, or pneumothorax. The cardiomediastinal silhouette is normal. The visible bony thorax is intact. Report dictated by Isaiah Keenan MD, MD (vice president compliance). Kylie Gutierrez MD have personally reviewed and interpreted this examination/study. > Interpreting Provider: Kylie Horn MD on 08/15/2022 4:38 PM Procedure Note Kylie Horn MD - 08/15/2022 PROCEDURE: XR CHEST 2VW, DATE/TIME OF EXAM: 08/15/2022 11:27 AM, LOCATION [facility] INDICATION: Z01.818: Pre-op testing COMPARISON: Chest x-ray 03/24/2022 FINDINGS/IMPRESSION: Left-sided battery pack/degenerative device with the lead coursing superiorly into the soft tissues of the neck. Distal end of the lead isnot seen There is no focal consolidation, pleural effusion, or pneumothorax. The cardiomediastinal silhouette is normal. The visible bony thorax isintact. Report dictated by Isaiah Keenan MD, MD (vice president compliance). Kylie Gutierrez MD have personally reviewed and interpreted this examination/study. > Interpreting Provider: Kylie Horn MD on 08/15/2022 4:38 PM Shailesh North MD DIAGNOSTIC IMAGING ORDERABLES * EKG 12-LEAD (08/15/2022 10:16 AM CDT) Only the most recent of2 resultswithin the time period is included. [facility] Ventricular Rate 74 BPM [facility] Atrial Rate 74 BPM [facility] P-R Interval 184 ms [facility] QRS Duration ms 72 ms [facility] Q-T Interval ms 378 ms [facility] QTC Calculation (Bezet) 419 ms [facility] Calculated P [place]ledge 65 degrees [facility] Calculated R [place] 48 degrees [facility] Calculated T [place]ledge 69 degrees [facility] Interpretation EKG NORMAL SINUS RHYTHM NONSPECIFIC ST & T WAVE CHANGES BORDERLINE ECG WHEN COMPARED WITH ECG OF 12-MAR-2022 14:09, NO SIGNIFICANT CHANGE WAS FOUND Confirmed by SUE FERNÁNDEZ, TRA ([id number]) on 08/16/2022 7:20:16 PM [facility] 08/15/2022 10:1 6 AM CDT 08/16/2022 7:20 PM CDT Shailesh North MD ECG ORDERABLES [facility] * TSH REFLEX FREE T4 (08/06/2022 9:41 AM CDT) [facility] TSH 3.348 0.350 - 4.940 uIU/mL 08/06/2022 12:01 PM CDT [facility] Blood BLOOD SPECIMEN / Unknown Lab Venipuncture / Unknown 08/06/2022 9:41 AM CDT 08/06/2022 9:55 AM CDT Dre Groves MD LAB - CHEMISTRY SOTERO PATEL [facility] [address] [place] [phone], [facility] [phone] * T4 FREE (08/06/2022 9:41 AM CDT) [facility] T4 Free 0.9 0.7 - 1.5 ng/dL 08/06/2022 12:01 PM CDT [facility] Blood BLOOD SPECIMEN / Unknown Lab Venipuncture / Unknown 08/06/2022 9:41 AM CDT 08/06/2022 9:55 AM CDT Dre Groves MD LAB - CHEMISTRY SOTERO PATEL [facility] Organization Address City/State/ZIP Co de Phone Number [facility] [address] [place] [address], [facility] [phone] * VT ANALYS BRN NPGT PRGRMG 15 MIN (06/17/2022 9:32 PM CDT) Narrative Rissa Vo MD - 06/17/2022 9:32 PM CDT Rissa Vo MD 06/17/2022 9:33 PM Please see procedure notes Rissa Maldonado MD PROCEDURE/[facility] R SURGICAL ORDERABLES * VT ANALYS BRN NPGT PRGRMG 15 MIN, [place] ANALYS BRN NPGT PRGRMG ADDL 15, [place] ANALYS BRN NPGT PRGRMG ADDL15 (04/17/2022 6:16 [...] left deep brain stimulator a left parietal yuriy hole. Dictated by Facundo Sue MD (vice president compliance). I, Dr. KYLIE HORN have personally reviewed and interpreted this examination/study. This report was electronically signed by KYLIE HORN on 03/24/2022 11:38 PM . Narrative 03/24/2022 11:38 PM CDT EXAMINATION: XR SKULL 4VW OR MORE HISTORY: G25.0: Benign essential tremor COMPARISON: No prior study is available for comparison. FINDINGS: A left deep brain stimulator lead traverses a left parietal yuriy hole and is directed toward the subthalamic [...] brain stimulator lead traverses a left parietal yuriy holeand is directed toward the subthalamic nucleus, with tip left of midline. A small amount gas is seen along the left calvarium. Skin martin are present. IMPRESSION: Placement of a left deep brain stimulator a left parietal yuriy hole. Dictated by Facundo Sue MD (vice president compliance). I, Dr. KYLIE HORN have personally reviewed [...] Event Date/Time: 03/24/2022 1:41 PM Procedure: intubation ([id number]). Procedure Section: Sedation: under general anesthesia. Indications [...] Peripheral IV Line Placement: Procedure: IV start ([id number]). Procedure Section: Orientation: right Location: foot Catheter [...] A POS 03/17/2022 8:2 4 AM CDT [facility] Blood Bank BLOOD SPECIMEN / Unknown Lab Venipuncture / Unknown 03/17/2022 7:32 AM CDT 03/17/2022 7:44 AM CDT Provider Unknown LAB - BLOOD BANK ORD ERABLES [facility] [address] [place] [address], [facility] [phone] * URINALYSIS W/MICROSCOPIC REFLEX TO CULTURE (03/12/2022 3:30 PM CDT) Color UA Yellow Straw, Yellow 03/12/2022 4:25 PM CDT [facility] Clarity UA Clear Clear 03/12/2022 4:25 PM CDT [facility] Specific [place] UA 1.006 1.005 - 1.030 03/12/2022 4:25 PM [facility] pH UA 6.0 5.0 - 8.0 pH 03/12/2022 4:25 PM [facility] Protein UA Negative Negative 03/12/2022 4:25 PM [facility] Glucose UA Negative Negative 03/12/2022 4:25 PM [facility] Ketone UA Negative Negative 03/12/2022 4:25 PM T [facility] Bilirubin UA Negative Negative 03/12/2022 4:25 PM T [facility] Blood UA Negative Negative 03/12/2022 4:25 PM [facility] Nitrite UA Negative Negative 03/12/2022 4:25 PM [facility] Leukocyte Esterase Negative Negative 03/12/2022 4:25 PM [facility] Urobilinogen UA Negative Negative mg/dL 03/12/2022 4:25 PM [facility] RBC UA 0-2 None Seen, 0-2, 3-5 /HPF 03/12/2022 4:25 PM T [facility] WBC UA 0-5 None Seen, 0-5 /HPF 03/12/2022 4:25 PM [facility] Squamous Epithelial Cells UA 0-2 None Seen, 0-2, 3-5 /HPF 03/12/2022 4:25 PM T [facility] Urine URINE SPECIMEN OBTAINED BY CLEAN CATCH PROCEDURE / Unknown Collection / Unknown 03/12/2022 3:30 PM CDT 03/12/2022 4:15 PM CDT Narrative [facility] - 03/12/2022 4:25 PM CDT Culture Not Indicated Shailesh North MD LAB - URINALYSIS OR DERABLES [facility] [address] [place] [phone], [facility] [phone] * XR FOOT RIGHT 3VW OR MORE [...] MRI BRAIN WWO CONTRAST (12/19/2021 7:34 AM MACHINE SET UP OPERATOR) Anatomical Region Laterality Modality Head Magnetic Resonan ce 12/19/2021 11:1 7 AM MACHINE SET UP OPERATOR Impressions 12/19/2021 11:42 AM MACHINE SET UP OPERATOR IMPRESSION: No acute intracranial abnormality. I, Dr. GOYO DELACRUZ have personally reviewed and interpreted this examination/study. This report was electronically signed by GOYO DELACRUZ on 12/19/2021 11:42 AM . Narrative 12/19/2021 11:42 AM MACHINE SET UP OPERATOR Contrast enhanced MRI of brain CLINICAL [...] CREATININE - POCT INTERFACED (12/19/2021 6:40 AM MACHINE SET UP OPERATOR) Creatinine POCT 0.73 0.30 - 1.30 mg/dL 12/19/2021 6:43 AM MACHINE SET UP OPERATOR [facility] eGFR >90 >90 mL/min/1.7 3 m2 12/19/2021 6:43 AM MACHINE SET UP OPERATOR [facility] Blood BLOOD SPECIMEN / Unknown 12/19/2021 6:40 AM MACHINE SET UP OPERATOR 12/19/2021 6:43 AM MACHINE SET UP OPERATOR Rissa Maldonado MD LAB - POINT OF CARE ORDERABLES [facility] [address] [place] [address], [facility] [phone] Care Teams Incident Response Coordinator Relationship Specialty Start Date End Date Kerry Coffman DO [address] OF [facility] [place] [address] PCP - General Internal Medicine 12/15/23
--- OUTSIDE RECORDS SUMMARY | 2024-12-21 00:50 | XMS_ITS | Referral Summary ---
Author Organization [facility] Address [address] [place] [id number] Care Team Providers Care Machine Strap Buckler Name Role Phone Kerry Coffman DO Primary Care Provider Encounters Date Type Department Care Team Description 11/21/2024 1:50 PM FUND RAISER - 11/21/2024 11:59 PM FUND RAISER Hospital Encounter [facility] Radiology at [facility] [address] [place] [id number] Discharge Disposition: Discharge to home or self care 11/21/2024 1:20 PM FUND RAISER Office Visit [facility] Rheumatology [address] [facility] 2nd Floor [address] [place] [phone] Marialuisa Franklin, SAMI Rheumatoid arthritis with negative rheumatoid factor, involving unspecified site (HCC) (Primary Dx); High risk medication use 11/15/2024 10:40 AM FUND RAISER - 11/15/2024 11:59 PM FUND RAISER Hospital Encounter [address] [address] High risk medication use Discharge Disposition: Discharge to home or self care 11/15/2024 10:30 AM FUND RAISER Infusion [facility] Infusion Therapy [address] [facility] 2nd Floor [address] [place] [phone] Rheumatoid arthritis with negative rheumatoid factor, involving unspecified site (HCC) (Primary Dx) 10/18/2024 10:30 AM FUND RAISER Infusion [facility] Infusion Therapy [address] [facility] 2nd Floor [address] [place] [phone] Rheumatoid arthritis with negative rheumatoid factor, involving [...] a day as needed for diarrhea Active pseudoephedrine ER (SUDAFED) 120 mg 12 hr tabletIndicatio ns:Nasal Congestion Take 1 tablet (120 mg total) by mouth every 12 (twelve) hours Active primidone (MYSOLINE) 250 mg tablet 2 (two) times a day 1 Active loratadine (CLARITIN) 10 mg tablet Take 1 tablet (10 mg total) by mouth daily 2 Active cyclobenzaprine (FLEXERIL) 10 mg tablet Take 1 tablet (10 mg total) by mouth nightly as needed 2 Active calcium carbonate-vitam in D3 1,500 mg (600mg elemental) -800 unit [...] 1 tablet (2 mg total) 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 4 Active azelastine (ASTELIN) 137 [...] skin every 30 (thirty) days 5 Active hydroxychloroqu ine (PLAQUENIL) 200 mg tablet Take 1.5 tablets (300 mg total) by mouth daily 135 tablet 1 5 Active azaTHIOprine (IMURAN) 50 mg tablet Take 1 tablet (50 mg total) by mouth daily 30 tablet 3 5 05/20/20 25 Active Active Problems Problem Noted Date Diagnosed Date Rheumatoid arthritis with negative rheumatoid fa ctor 05/15/2023 Social History Tobacco Use Types Packs/Day Years Used Date Smoking Tobacco: Former Passive Smoke Exposure: Past Smokeless Tobacco: Never Tobacco Cessation:Counseling Given: Not Answered Comments Unknown Sex and Gender Information Value Date Recorded Sex Assigned at Not on file Legal Sex Female 10:45 PM FUND RAISER Gender Identity Not on file Sexual Orientation Not on file Last Filed Vital Signs Vital Sign Reading Time Taken Comments Blood Pressure 93/58 11/21/2024 1:01 PM FUND RAISER Pulse 63 11/21/2024 1:01 PM FUND RAISER Temperature 36.6 C (97.8 F) 11/21/2024 1:01 PM FUND RAISER Respiratory Rate - - Oxygen Saturation 99% 11/21/2024 1:01 PM FUND RAISER Inhaled Oxygen Concentration - - Weight 68 kg (150 lb) 11/21/2024 1:01 PM FUND RAISER Height 167.6 cm (5' 5.98 ) 11/21/2024 1:01 PM CS T Body Mass Index 24.22 11/21/2024 1:01 PM FUND RAISER Plan of Treatment Not on file Procedures Procedure Name Priority Date/Time Associated Diagnosis Comments XR HAND RIGHT 3 OR MORE VIEWS Schedule Routine, Read Routine (OP Routine) 11/21/2024 2:04 PM FUND RAISER Rheumatoid arthritis with negative rheumatoid factor, involving unspecified site (HCC) XR HAND LEFT 3 OR MORE VIEWS Schedule Routine, Read Routine (OP Routine) 11/21/2024 2:04 PM FUND RAISER Rheumatoid arthritis with negative rheumatoid factor, involving unspecified site (HCC) XR WRIST RIGHT 3 OR MORE VIEWS Schedule Routine, Read Routine (OP Routine) 11/21/2024 2:04 PM FUND RAISER Rheumatoid arthritis with negative rheumatoid factor, involving unspecified site (HCC) XR WRIST LEFT 3 OR MORE VIEWS Schedule Routine, Read Routine (OP Routine) 11/21/2024 2:04 PM FUND RAISER Rheumatoid arthritis with negative rheumatoid factor, involving unspecified site (HCC) EGFR Routine 11/15/2024 1:46 PM FUND RAISER High risk medication use DIFFERENTIAL AUTO Routine 11/15/2024 1:4 6 PM FUND RAISER High risk medication use COMPREHENSIVE METABOLIC PANEL Routine 11/15/2024 1:46 PM FUND RAISER High risk medication use CBC WITH AUTO DIFFERENTIAL Routine 11/15/2024 1:46 PM FUND RAISER High risk medication use TB TEST, QUANTIFERON GOLD Routine 11/07/2024 3:55 PM FUND RAISER High risk medication use DEXA AXIAL SKELETON [...] 3 or More Views (11/21/2024 2:04 PM FUND RAISER) Anatomical Region Laterality Modality Upper Extremities, Hand Right Computed Radiography 11/21/2024 2:23 PM FUND RAISER Addenda Addendum by Pipe Valdivia MD on 11/22/2024 12:50 PM FUND RAISER ADDENDUM: Progressive polyarticular erosions involving the bilateral hands and wrists, most prominent in the carpus bilaterally. This is consistent with progressive inflammatory arthritis in this patient with known rheumatoid arthritis. Electronically signed by: Pipe Valdivia MD Impressions 11/21/2024 2:23 PM FUND RAISER 1. Healing fracture of the left 4th metacarpal shaft with shortening and mild ulnar displacement. 2. Polyarticular erosions involving the bilateral hands and wrists, most prominent in the carpus bilaterally. This is consistent with inflammatory arthritis. Statistically, this is most likely due to rheumatoid arthritis. Electronically signed by: Pipe Valdivia MD Narrative 11/21/2024 2:23 PM FUND RAISER EXAMINATION: XR WRIST LEFT 3 OR MORE [...] signed by: Pipe Valdivia MD Marialuisa Franklin DIESEL ROLLER OPERATOR IMG XR PROCEDURES Edited R esult - Final * XR Hand Left 3 or More Views (11/21/2024 2:04 PM FUND RAISER) Anatomical Region Laterality Modality Upper Extremities, Hand Left Computed Radiography 11/21/2024 2:23 PM FUND RAISER Addenda Addendum by Pipe Valdivia MD on 11/22/2024 12:50 PM FUND RAISER ADDENDUM: Progressive polyarticular erosions involving the bilateral hands and wrists, most prominent in the carpus bilaterally. This is consistent with progressive inflammatory arthritis in this patient with known rheumatoid arthritis. Electronically signed by: Pipe Valdivia MD Impressions 11/21/2024 2:23 PM FUND RAISER 1. Healing fracture of the left 4th metacarpal shaft with shortening and mild ulnar displacement. 2. Polyarticular erosions involving the bilateral hands and wrists, most prominent in the carpus bilaterally. This is consistent with inflammatory arthritis. Statistically, this is most likely due to rheumatoid arthritis. Electronically signed by: Pipe Valdivia MD Narrative 11/21/2024 2:23 PM FUND RAISER EXAMINATION: XR WRIST LEFT 3 OR MORE [...] 3 or More Views (11/21/2024 2:04 PM FUND RAISER) Anatomical Region Laterality Modality Upper Extremities, Wrist Right Compute d Radiography 11/21/2024 2:23 PM FUND RAISER Addenda Addendum by Pipe Valdivia MD on 11/22/2024 12:50 PM FUND RAISER ADDENDUM: Progressive polyarticular erosions involving the bilateral hands and wrists, most prominent in the carpus bilaterally. This is consistent with progressive inflammatory arthritis in this patient with known rheumatoid arthritis. Electronically signed by: Pipe Valdivia MD Impressions 11/21/2024 2:23 PM FUND RAISER 1. Healing fracture of the left 4th metacarpal shaft with shortening and mild ulnar displacement. 2. Polyarticular erosions involving the bilateral hands and wrists, most prominent in the carpus bilaterally. This is consistent with inflammatory arthritis. Statistically, this is most likely due to rheumatoid arthritis. Electronically signed by: Pipe Valdivia MD Narrative 11/21/2024 2:23 PM FUND RAISER EXAMINATION: XR WRIST LEFT 3 OR MORE [...] arthritis. Electronically signed by: Pipe Valdivia MD Marialuias Franklin NP IMG XR PROCEDURES Edited R esult - Final * XR Wrist Left 3 or More Views (11/21/2024 2:04 PM FUND RAISER) Anatomical Region Laterality Modality Upper Extremities, Wrist Left Compute d Radiography 11/21/2024 2:23 PM FUND RAISER Addenda Addendum by Pipe Valdivia MD on 11/22/2024 12:50 PM FUND RAISER ADDENDUM: Progressive polyarticular erosions involving the bilateral hands and wrists, most prominent in the carpus bilaterally. This is consistent with progressive inflammatory arthritis in this patient with known rheumatoid arthritis. Electronically signed by: Pipe Valdivia MD Impressions 11/21/2024 2:23 PM FUND RAISER 1. Healing fracture of the left 4th metacarpal shaft with shortening and mild ulnar displacement. 2. Polyarticular erosions involving the bilateral hands and wrists, most prominent in the carpus bilaterally. This is consistent with inflammatory arthritis. Statistically, this is most likely due to rheumatoid arthritis. Electronically signed by: Pipe Valdivia MD Narrative 11/21/2024 2:23 PM FUND RAISER EXAMINATION: XR WRIST LEFT 3 OR MORE [...] - Final * eGFR (11/15/2024 1:46 PM FUND RAISER) eGFR 67 >=60 mL/min/1. 73 m2 Comment: [...] last reviewed 2021. Blood 11/15/2024 1:46 PM FUND RAISER 11/15/2024 2:48 PM FUND RAISER us Marialuisa Franklin DIESEL ROLLER OPERATOR LAB BLOOD ORDERABLES Final Result [facility] Department [place] [address] * Differential, auto (11/15/2024 1:46 PM FUND RAISER) Neutrophil abs 3.2 1.5 - 6.5 K/cumm Imm gran abs 0.0 0.0 - 0.1 K/cumm [facility] Lymphocyte abs 1.1 0.8 - 3.3 K/cumm [facility] Monocyte abs 0.6 0.2 - 0.8 K/cumm [facility] Eosinophil abs 0.1 0.0 - 0.5 K/cumm [facility] Basophil abs 0.1 0.0 - 0.1 K/cumm [facility] Neutrophil pct 63.6 % [facility] Comment: Interpretive Data Percent cell count reference ranges are not reported, since discordance with absolute values may lead to misinterpretation of CBC data. Current Interpretive Data was last revised on 2018. Imm gran pct 0.4 % [facility] Comment: Interpretive Data Percent cell count reference ranges are not reported, since discordance with absolute values may lead to misinterpretation of CBC data. Current Interpretive Data was last revised on 2018. Lymphocyte pct 21.4 % [facility] Comment: Interpretive Data Percent cell count reference ranges are not reported, since discordance with absolute values may lead to misinterpretation of CBC data. Current Interpretive Data was last revised on 2018. Monocyte pct 11.4 % [facility] Comment: Interpretive Data Percent cell count reference ranges are not reported, since discordance with absolute values may lead to misinterpretation of CBC data. Current Interpretive Data was last revised on 2018. Eosinophil pct 2.0 % [facility] Comment: Interpretive Data Percent cell count reference ranges are not reported, since discordance with absolute values may lead to misinterpretation of CBC data. Current Interpretive Data was last revised on 2018. Basophil pct 1.2 % [facility] Comment: Interpretive Data Percent cell count reference ranges are not reported, since discordance with absolute values may lead to misinterpretation of CBC data. Current Interpretive Data was last revised on 2018. Blood 11/15/2024 1:46 PM FUND RAISER 11/15/2024 1:59 PM FUND RAISER Marialuisa Franklin NP LAB BLOOD ORDERABLES Final Result [facility] Department [place] [address] * CBC with auto differential (11/15/2024 1:46 PM FUND RAISER) WBC 5.0 3.8 - 9.9 K/cumm Hgb 13.7 11.9 - 15.5 g/dL [facility] Hct 41.1 35.6 - 45.5 % [facility] Plt 256 150 - 400 K/cumm [facility] MPV 11.0 9.1 - 12.3 fL [facility] RBC 4.32 3.90 - 5.20 M/cumm [facility] MCV 95.1 81.3 - 96.4 fL [facility] MCH 31.7 27.1 - 33.3 pg [facility] MCHC 33.3 32.3 - 35.7 g/dL [facility] RDW CV 13.3 11.1 - 14.9 % [facility] RDW SD 47.1 35.7 - 48.1 fL [facility] NRBC abs 0.00 0.00 - 0.01 K/cumm [facility] Blood 11/15/2024 1:46 PM FUND RAISER 11/15/2024 1:59 PM FUND RAISER Marialuisa Franklin DIESEL ROLLER OPERATOR LAB BLOOD ORDERABLES Final Result [facility] Department [place] [address] * Comprehensive metabolic panel (11/15/2024 1:46 PM FUND RAISER) Sodium 139 135 - 145 mmol/L Potassium, pl 4.5 3.3 - 4.9 mmol/L [facility] Chloride 103 97 - 110 mmol/L [facility] CO2 26 22 - 32 mmol/L [facility] Anion gap 10 2 - 15 mmol/L [facility] BUN 15 6 - 25 mg/dL [facility] Creatinine 0.92 0.60 - 1.10 mg/dL [facility] Glucose 105 70 - 199 mg/dL [facility] Comment: Interpretive Data Fasting glucose [...] 2022. Calcium 9.5 8.5 - 10.3 mg/dL [facility] Bilirubin, total 0.3 0.1 - 1.2 mg/dL [facility] Protein, pl 7.1 6.5 - 8.5 g/dL [facility] Albumin 4.3 3.5 - 5.0 g/dL [facility] Alk phos 121 40 - 130 Units/L [facility] ALT 19 7 - 45 Units/L [facility] AST 22 10 - 45 Units/L [facility] Blood 11/15/2024 1:46 PM FUND RAISER 11/15/2024 2:48 PM FUND RAISER us Marialuisa R. Govero DIESEL ROLLER OPERATOR LAB BLOOD ORDERABLES Final Result [facility] Department [place] [address] * TB test, quantiferon gold (11/07/2024 3:55 PM FUND RAISER) QuantiFERON(R)-T B Gold Plus, 1 Tube NEGATIVE [...] T-lymphocytes. For additional information, please refer to https://education.Gumiyo.Easel Learn/faq/PGQ668 (This link is being provided for informational/ educational purposes only.) Blood 11/07/2024 3:55 PM FUND RAISER 11/07/2024 3:56 PM FUND RAISER Marialuisa Franklin NP LAB BLOOD ORDERABLES Final Result [facility] [address] [place] [id number] * Dexa Axial Skeleton Bone Density 1 or 2 Site (03/08/2024 9:24 AM CDT) Anatomical Region Laterality Modality Body N/A Radiographic Erna ging Narrative 03/08/2024 9:48 PM CDT Patient Name: Sheri Shin Date of : 1955 Date of scan: 03/08/2024 Bone mineral density was performed on a HoloV Wave Discovery Densitometer. Based on machine cross-calibration and [...] density scan were prepared by Parul Jimenez) ARSENIOT who is accredited by the International Society of Clinical Densitometry. The overall patient assessment and scan interpretation were performed by Mar Orozco MD who is certified by the International Society of Clinical Densitometry. [id number] Marialuisa Franklin NP IMG DXA PROCEDURES Final R esult * Hepatitis panel, acute (05/24/2020 9:45 AM CDT) Hep A IgM Nonreactive Nonreactive [facility] Comment: Interpretive Data: If Hep A IgM Ab is reported as Equivocal, a new sample should be drawn in two weeks for testing. Current interpretive data was last revised on 19. Hep B core IgM Nonreactive Nonreactive [facility] Comment: Interpretive Data If HepB Core IgM Ab is reported as Equivocal, a new sample should be drawn in two weeks for testing. Current interpretive data was last revised on 19. Hep C Ab Nonreactive Nonreactive [facility] Comment:Antibodies to HCV no t detected. Does NOT exclude the possibility of recent exposure to HCV. HepBsAg Nonreactive Nonreactive [facility] Blood specimen (specimen) 05/24/2020 9:45 AM CDT 05/24/2020 12:08 PM CDT Marialuisa Franklin NP LAB MICROBIOLOGY - GENERAL ORDERABLES Edited Result - Final [facility] Department [place] [address] from Last 3 Months or Most Recently Relevant to Health Maintenance Insurance [employer] [facility] Address: [address] [address] [place] [address] [facility] MEDICARE MEDICARE MEDICARE [facility] MED[facility] Address: [address] [address] [place] [address] Care Teams Machine Strap Buckler Relationship Specialty Start Date End Date Kerry Coffman DO [address] [place] [address] PCP - General Internal Medicine 04/19/24
--- OUTSIDE RECORDS SUMMARY | 2024-12-21 00:50 | XMS_ITS | Clinical Summary ---
Author Organization [facility] Address [address] [place] [phone] Care Team Providers Care Quarrying Specialist Name Role Phone Kerry Coffman Primary Care [...] 1 tablet (2 mg total) by mouth construction and maintenance inspector before breakfast 4 Active azelastine (ASTELIN) 137 [...] Department Care Team Description 11/21/2024 1:50 PM FIELD SEISMOLOGIST - 11/21/2024 11:59 PM FIELD SEISMOLOGIST Hospital Encounter [facility] [address] [place] [address] Discharge Disposition: Discharge to home or self care 11/21/2024 1:20 PM FIELD SEISMOLOGIST Office Visit [facility] Rheumatology [address] [facility] 2nd Floor [address] [place] [phone] Marialuisa Franklin NP Rheumatoid arthritis with negative rheumatoid factor, involving unspecified site (HCC) (Primary Dx); High risk medication use 11/15/2024 10:40 AM FIELD SEISMOLOGIST - 11/15/2024 11:59 PM FIELD SEISMOLOGIST Hospital Encounter [facility] [address] [place] [address] High risk medication use Discharge Disposition: Discharge to home or self care 11/15/2024 10:30 AM FIELD SEISMOLOGIST Infusion [facility] Infusion Therapy [address] [facility] 2nd Floor [address] [place] [phone] Rheumatoid arthritis with negative rheumatoid factor, involving unspecified site (HCC) (Primary Dx) 10/18/2024 10:30 AM FIELD SEISMOLOGIST Infusion [facility] Infusion Therapy [address] [facility] 2nd Floor [address] [place] [phone] Rheumatoid arthritis with negative rheumatoid factor, involving [...] on file Legal Sex Female 10:45 PM FIELD SEISMOLOGIST Gender Identity Not on file Sexual Orientation Not on file Obstetrics History Last Filed Vital Signs Vital Sign Reading Time Taken Comments Blood Pressure 93/58 11/21/2024 1:01 PM FIELD SEISMOLOGIST Pulse 63 11/21/2024 1:01 PM FIELD SEISMOLOGIST Temperature 36.6 C (97.8 F) 11/21/2024 1:01 PM FIELD SEISMOLOGIST Respiratory Rate - - Oxygen Saturation 99% 11/21/2024 1:01 PM FIELD SEISMOLOGIST Inhaled Oxygen Concentration - - Weight 68 kg (150 lb) 11/21/2024 1:01 PM FIELD SEISMOLOGIST Height 167.6 cm (5' 5.98 ) 11/21/2024 1:01 PM CS T Body Mass Index 24.22 11/21/2024 1:01 PM FIELD SEISMOLOGIST Plan of Treatment Health Maintenance Due Date [...] Read Routine (OP Routine) 11/21/2024 2:04 PM FIELD SEISMOLOGIST Rheumatoid arthritis with negative rheumatoid factor, involving unspecified site (HCC) XR HAND LEFT 3 OR MORE VIEWS Schedule Routine, Read Routine (OP Routine) 11/21/2024 2:04 PM FIELD SEISMOLOGIST Rheumatoid arthritis with negative rheumatoid factor, involving unspecified site (HCC) XR WRIST RIGHT 3 OR MORE VIEWS Schedule Routine, Read Routine (OP Routine) 11/21/2024 2:04 PM FIELD SEISMOLOGIST Rheumatoid arthritis with negative rheumatoid factor, involving unspecified site (HCC) XR WRIST LEFT 3 OR MORE VIEWS Schedule Routine, Read Routine (OP Routine) 11/21/2024 2:04 PM FIELD SEISMOLOGIST Rheumatoid arthritis with negative rheumatoid factor, involving unspecified site (HCC) EGFR Routine 11/15/2024 1:46 PM FIELD SEISMOLOGIST High risk medication use DIFFERENTIAL AUTO Routine 11/15/2024 1:4 6 PM FIELD SEISMOLOGIST High risk medication use COMPREHENSIVE METABOLIC PANEL Routine 11/15/2024 1:46 PM FIELD SEISMOLOGIST High risk medication use CBC WITH AUTO DIFFERENTIAL Routine 11/15/2024 1:46 PM FIELD SEISMOLOGIST High risk medication use TB TEST, QUANTIFERON GOLD Routine 11/07/2024 3:55 PM FIELD SEISMOLOGIST High risk medication use DEXA AXIAL SKELETON [...] 3 or More Views (11/21/2024 2:04 PM FIELD SEISMOLOGIST) Anatomical Region Laterality Modality Upper Extremities, Hand Right Computed Radiography 11/21/2024 2:23 PM FIELD SEISMOLOGIST Addenda Addendum by Pipe Valdivia MD on 11/22/2024 12:50 PM FIELD SEISMOLOGIST ADDENDUM: Progressive polyarticular erosions involving the bilateral hands and wrists, most prominent in the carpus bilaterally. This is consistent with progressive inflammatory arthritis in this patient with known rheumatoid arthritis. Electronically signed by: Pipe Valdivia MD Impressions 11/21/2024 2:23 PM FIELD SEISMOLOGIST 1. Healing fracture of the left 4th metacarpal shaft with shortening and mild ulnar displacement. 2. Polyarticular erosions involving the bilateral hands and wrists, most prominent in the carpus bilaterally. This is consistent with inflammatory arthritis. Statistically, this is most likely due to rheumatoid arthritis. Electronically signed by: Pipe Valdivia MD Narrative 11/21/2024 2:23 PM FIELD SEISMOLOGIST EXAMINATION: XR WRIST LEFT 3 OR MORE [...] 3 or More Views (11/21/2024 2:04 PM FIELD SEISMOLOGIST) Anatomical Region Laterality Modality Upper Extremities, Hand Left Computed Radiography 11/21/2024 2:23 PM FIELD SEISMOLOGIST Addenda Addendum by Pipe Valdivia MD on 11/22/2024 12:50 PM FIELD SEISMOLOGIST ADDENDUM: Progressive polyarticular erosions involving the bilateral hands and wrists, most prominent in the carpus bilaterally. This is consistent with progressive inflammatory arthritis in this patient with known rheumatoid arthritis. Electronically signed by: Pipe Valdivia MD Impressions 11/21/2024 2:23 PM FIELD SEISMOLOGIST 1. Healing fracture of the left 4th metacarpal shaft with shortening and mild ulnar displacement. 2. Polyarticular erosions involving the bilateral hands and wrists, most prominent in the carpus bilaterally. This is consistent with inflammatory arthritis. Statistically, this is most likely due to rheumatoid arthritis. Electronically signed by: Pipe Valdivia MD Narrative 11/21/2024 2:23 PM FIELD SEISMOLOGIST EXAMINATION: XR WRIST LEFT 3 OR MORE [...] 3 or More Views (11/21/2024 2:04 PM FIELD SEISMOLOGIST) Anatomical Region Laterality Modality Upper Extremities, Wrist Right Compute d Radiography 11/21/2024 2:23 PM FIELD SEISMOLOGIST Addenda Addendum by Pipe Valdivia MD on 11/22/2024 12:50 PM FIELD SEISMOLOGIST ADDENDUM: Progressive polyarticular erosions involving the bilateral hands and wrists, most prominent in the carpus bilaterally. This is consistent with progressive inflammatory arthritis in this patient with known rheumatoid arthritis. Electronically signed by: Pipe Valdivia MD Impressions 11/21/2024 2:23 PM FIELD SEISMOLOGIST 1. Healing fracture of the left 4th metacarpal shaft with shortening and mild ulnar displacement. 2. Polyarticular erosions involving the bilateral hands and wrists, most prominent in the carpus bilaterally. This is consistent with inflammatory arthritis. Statistically, this is most likely due to rheumatoid arthritis. Electronically signed by: Pipe Valdivia MD Narrative 11/21/2024 2:23 PM FIELD SEISMOLOGIST EXAMINATION: XR WRIST LEFT 3 OR MORE [...] signed by: Pipe Valdivia MD Marialuisa Franklin DIVORCE MEDIATOR IMG XR PROCEDURES Edited R esult - Final * XR Wrist Left 3 or More Views (11/21/2024 2:04 PM FIELD SEISMOLOGIST) Anatomical Region Laterality Modality Upper Extremities, Wrist Left Compute d Radiography 11/21/2024 2:2 3 PM FIELD SEISMOLOGIST Addenda Addendum by Pipe Valdivia MD on 11/22/2024 12:50 PM FIELD SEISMOLOGIST ADDENDUM: Progressive polyarticular erosions involving the bilateral hands and wrists, most prominent in the carpus bilaterally. This is consistent with progressive inflammatory arthritis in this patient with known rheumatoid arthritis. Electronically signed by: Pipe Valdivia MD Impressions 11/21/2024 2:23 PM FIELD SEISMOLOGIST 1. Healing fracture of the left 4th metacarpal shaft with shortening and mild ulnar displacement. 2. Polyarticular erosions involving the bilateral hands and wrists, most prominent in the carpus bilaterally. This is consistent with inflammatory arthritis. Statistically, this is most likely due to rheumatoid arthritis. Electronically signed by: Pipe Valdivia MD Narrative 11/21/2024 2:23 PM FIELD SEISMOLOGIST EXAMINATION: XR WRIST LEFT 3 OR MORE [...] - Final * eGFR (11/15/2024 1:46 PM FIELD SEISMOLOGIST) eGFR 67 >=60 mL/min/1. 73 m2 Comment: [...] of Race in Diagnosing Kidney Disease, JASN 2020). The CKD-EPI equation should not be used for patients with unstable renal function and has not been validated in children and those over 70. Current interpretive data was last reviewed 2021. Blood 11/15/2024 1:46 PM FIELD SEISMOLOGIST 11/15/2024 2:48 PM FIELD SEISMOLOGIST us Marialuisa Franklin NP LAB BLOOD ORDERABLES Final Result [facility] [place] [address] * Differential, auto (11/15/2024 1:46 PM FIELD SEISMOLOGIST) Neutrophil abs 3.2 1.5 - 6.5 K/cumm Imm gran abs 0.0 0.0 - 0.1 K/cumm [facility] Lymphocyte abs 1.1 0.8 - 3.3 K/cumm [facility] Monocyte abs 0.6 0.2 - 0.8 K/cumm [facility] Eosinophil abs 0.1 0.0 - 0.5 K/cumm [facility] Basophil abs 0.1 0.0 - 0.1 K/cumm [facility] Neutrophil pct 63.6 % [facility] Comment: Interpretive Data Percent cell count reference ranges are not reported, since discordance with absolute values may lead to misinterpretation of CBC data. Current Interpretive Data was last revised on 2018. Imm gran pct 0.4 % [facility] Comment: Interpretive Data Percent cell count reference ranges are not reported, since discordance with absolute values may lead to misinterpretation of CBC data. Current Interpretive Data was last revised on 2018. Lymphocyte pct 21.4 % [facility] Comment: Interpretive Data Percent cell count reference ranges are not reported, since discordance with absolute values may lead to misinterpretation of CBC data. Current Interpretive Data was last revised on 2018. Monocyte pct 11.4 % [facility] Comment: Interpretive Data Percent cell count reference ranges are not reported, since discordance with absolute values may lead to misinterpretation of CBC data. Current Interpretive Data was last revised on 2018. Eosinophil pct 2.0 % [facility] Comment: Interpretive Data Percent cell count reference ranges are not reported, since discordance with absolute values may lead to misinterpretation of CBC data. Current Interpretive Data was last revised on 2018. Basophil pct 1.2 % [facility] Comment: Interpretive Data Percent cell count reference ranges are not reported, since discordance with absolute values may lead to misinterpretation of CBC data. Current Interpretive Data was last revised on 2018. Blood 11/15/2024 1:46 PM FIELD SEISMOLOGIST 11/15/2024 1:59 PM FIELD SEISMOLOGIST Marialuisa Franklin DIVORCE MEDIATOR LAB BLOOD ORDERABLES Final Result [facility] [place] [address] * CBC with auto differential (11/15/2024 1:46 PM FIELD SEISMOLOGIST) Pathologist [facility] WBC 5.0 3.8 - 9.9 K/cumm Hgb 13.7 11.9 - 15.5 g/dL [facility] Hct 41.1 35.6 - 45.5 % [facility] Plt 256 150 - 400 K/cumm [facility] MPV 11.0 9.1 - 12.3 fL [facility] RBC 4.32 3.90 - 5.20 M/cumm [facility] MCV 95.1 81.3 - 96.4 fL [facility] MCH 31.7 27.1 - 33.3 pg [facility] MCHC 33.3 32.3 - 35.7 g/dL [facility] RDW CV 13.3 11.1 - 14.9 % [facility] RDW SD 47.1 35.7 - 48.1 fL [facility] NRBC abs 0.00 0.00 - 0.01 K/cumm [facility] Blood 11/15/2024 1:46 PM FIELD SEISMOLOGIST 11/15/2024 1:59 PM FIELD SEISMOLOGIST Marialuisa Franklin DIVORCE MEDIATOR LAB BLOOD ORDERABLES Final Result [facility] Department [place] [address] * Comprehensive metabolic panel (11/15/2024 1:46 PM FIELD SEISMOLOGIST) Pathologist [facility] Sodium 139 135 - 145 mmol/L Potassium, pl 4.5 3.3 - 4.9 mmol/L [facility] Chloride 103 97 - 110 mmol/L [facility] CO2 26 22 - 32 mmol/L [facility] Anion gap 10 2 - 15 mmol/L [facility] BUN 15 6 - 25 mg/dL [facility] Creatinine 0.92 0.60 - 1.10 mg/dL [facility] Glucose 105 70 - 199 mg/dL [facility] Comment: Interpretive Data Fasting glucose >/= [...] 2022. Calcium 9.5 8.5 - 10.3 mg/dL [facility] Bilirubin, total 0.3 0.1 - 1.2 mg/dL [facility] Protein, pl 7.1 6.5 - 8.5 g/dL [facility] Albumin 4.3 3.5 - 5.0 g/dL [facility] Alk phos 121 40 - 130 Units/L [facility] ALT 19 7 - 45 Units/L [facility] AST 22 10 - 45 Units/L [facility] Blood 11/15/2024 1:46 PM FIELD SEISMOLOGIST 11/15/2024 2:48 PM FIELD SEISMOLOGIST us Marialuisa Franklin DIVORCE MEDIATOR LAB BLOOD ORDERABLES Final Result [facility] [place] [address] * TB test, quantiferon gold (11/07/2024 3:55 PM FIELD SEISMOLOGIST) [facility] QuantiFERON(R)-T B Gold Plus, 1 Tube NEGATIVE [...] T-lymphocytes. For additional information, please refer to https://education.Pinwine.cn/faq/URI435 (This link is being provided for informational/ educational purposes only.) Blood 11/07/2024 3:55 PM FIELD SEISMOLOGIST 11/07/2024 3:56 PM FIELD SEISMOLOGIST Marialuisa Franklin DIVORCE MEDIATOR LAB BLOOD ORDERABLES Final Result [facility] [address] [place] [phone] * Dexa Axial Skeleton Bone Density 1 or 2 Site (03/08/2024 9:24 AM CDT) Anatomical Region Laterality Modality Body N/A Radiographic Erna ging Narrative 03/08/2024 9:48 PM CDT Patient Name: Sheri Shin Date of : 1955 Date of scan: 03/08/2024 Bone mineral density was performed on a Holo[employer] Discovery Densitometer. Based on machine cross-calibration and [...] mineral density scan were prepared by Parul Daniels R.T.(R) CBDT who is accredited by the International Society of Clinical Densitometry. The overall patient assessment and scan interpretation were performed by Mar Orozco MD who is certified by the International Society of Clinical Densitometry. [id number] Marialuisa Franklin DIVORCE MEDIATOR IMG DXA PROCEDURES Final R esult * Hepatitis panel, acute (05/24/2020 9:45 AM CDT) Hep A IgM Nonreactive Nonreactive [facility] Comment: Interpretive Data: If Hep A IgM Ab is reported as Equivocal, a new sample should be drawn in two weeks for testing. Current interpretive data was last revised on 19. Hep B core IgM Nonreactive Nonreactive [facility] Comment: Interpretive Data If HepB Core IgM Ab is reported as Equivocal, a new sample should be drawn in two weeks for testing. Current interpretive data was last revised on 19. Hep C Ab Nonreactive Nonreactive [facility] Comment:Antibodies to HCV no t detected. Does NOT exclude the possibility of recent exposure to HCV. HepBsAg Nonreactive Nonreactive [facility] Blood specimen (specimen) 05/24/2020 9:45 AM CDT 05/24/2020 12:08 PM CDT Marialuisa Franklin NP LAB MICROBIOLOGY - GENERAL ORDERABLES Edited Result - Final [facility] [place] [address] from Last 3 Months or Most Recently Relevant to Health Maintenance Insurance [employer] MEDICARE [employer] [facility] Address: [address] [address] [place] [address] [facility] MEDICARE MEDICARE MEDICARE [employer] [facility] Address: [address] [address] [place] [address] Care Teams Quarrying Specialist Relationship Specialty Start Date End Date Kerry Coffman DO [address] [place] [address] PCP - General Internal Medicine 04/19/24
--- NOTE | 2024-12-21 07:05 | WPDHPUPDATE1 ---
History and Physical Update Update Date/Time: 12/21/24 07:05 Patient seen and examined in pre-operative holding area. No interval change in medical history or symptoms. Patient recalls previous discussion of benefits and alternatives to procedure. Continues to desire to proceed with left closed possible open reduction and internal fixation left fourth metacarpal fracture . Reviewed procedure, post-op expectations and risks including but not limited to bleeding, infection, injury to tendon/nerve/vessel, decreased hand function, stiffness, RSD, no change or worsening of symptoms, malunion, nonunion. I discussed the possible use of assistants and their participation in the case. Patient stated understanding and signed the consent form wishing to proceed.
--- NOTE | 2024-12-21 07:06 | P.OP_ITS ---
Procedure Note - Detailed Date of Procedure 12/21/24 Pre-op Diagnosis left fourth metacarpal shaft fracture Post-op Diagnosis Same Procedure Performed crpp left 4th mc fx Surgeon Austin Limon MD Traffic Signal Repairer ling sam pa-c Anesthesia General Description of Procedure INFORMED CONSENT: The patient was seen and examined and marked in the pre-op area.? The patient signed the consent form. PROCEDURE IN DETAIL:The patient taken back to OR on the stretcher in supine position. Time out performed with anesthesia, surgeon and staff agreeing on patient's name site and surgery to be performed SCDs were placed on the lower extremities and inflated. A tourniquet was placed on {left} upper extremity and antibiotics given IV After anesthesia administered sedation I injected {8}cc 1%lido with epi and 0.5% marcaine plain at the operative site The?{left upper extremity}?was prepped and draped in sterile fashion the??{left upper extremity} was? exsanguinated with Esmarch bandage and tourniquet inflated to 250mmHg Mini C-arm was brought into field after being draped. The fracture was evaluated. Reduction was possible but under further fluoroscopic examination it appeared like this may have been a previous site of old healed fracture as well given the irregularity of the metacarpal. The decision was made to proceed with percutaneous pinning. Traction was applied the MP joint in flexion helping reduce the fracture bringing the metacarpal out to length. two 0.045 K-wires were placed in crossing retrograde fashion down the 4th metacarpal. Multiple views of fluoroscopy demonstrated adequate wire placement and reasonable reduction of this fracture. There was no impingement on the extensors and there was no scissoring of the digit. The pins were bent and trimmed and covered with an iodine soaked alcohol swab. A dressing of 4x4, lani, and an ulnar gutter splint was applied with an michael bandage after the tourniquet was let down noting the hand was warm and well perfused. The patient was then awaken from anesthesia and transferred to the recovery room in stable condition.? Complications - none EBL- 0cc Disposition - home in stable conditions ling sam pa-c was essential for positioning, traction, fluuroo, instrumentation, and dressing placement [facility] Billing Surgery - Charge Forward: Surgery Billing ([id number] for ling)
[2024-12-21 14:21] LABS: Glucose Point of Care 110 mg/dl (65-105)
--- NOTE | 2024-12-21 14:50 | P.PNAN_ITS ---
Anes - Initial Pre Proc Eval Procedure: Operation Date: 12/21/24 17:00 Proposed Procedures p Open Reduction Internal Fixation Left Fourth Metacarpal Shaft Fracture - Austin Limon MD Date/Time: 12/21/24 14:50 Surgeon: Austin Limon MD Pre Op Diagnosis: left fourth metacarpal shaft fracture Patient Data Age: 69 Gender: F Height: 1.68 m Weight: 67.9 kg Last Vital Signs Temp 36.3 C L 12/21/24 14:00 Pulse 66 12/21/24 14:00 Resp 14 12/21/24 14:00 BP 115/80 12/21/24 14:00 Pulse Ox 97 12/21/24 14:00 O2 Del Method Room Air 12/21/24 14:00 Allergies Allergy/AdvReac Type Severity Reaction Status Date / Time Penicillins Allergy Severe Swelling Verified 12/21/24 14:24 Sulfa (Sulfonamide Allergy Intermediate Rash Verified 12/21/24 14:24 Antibiotics) Home Medications ?Medication ?Instructions ?Recorded ?Confirmed ?Type atorvastatin 20 mg tablet 1 mg PO DAILY 05/01/21 12/20/24 History gabapentin 100 mg capsule 200 mg PO Q12H 05/01/21 12/21/24 History lamotrigine 200 mg tablet 1 mg PO BID 05/01/21 12/21/24 History propranolol 120 mg capsule,24 1 mg PO DAILY 05/01/21 12/21/24 History hr,extended release sertraline 100 mg tablet 1 mg PO BID 05/01/21 12/21/24 History clonazepam 0.5 mg tablet 0.25 mg PO Q12H 12/08/21 12/21/24 History loratadine 10 mg tablet 10 mg PO DAILY 12/08/21 12/20/24 History sumatriptan succinate 100 mg tablet 100 mg PO DAILY 12/08/21 12/20/24 History calcium 300 mg-D3 20 mcg-magnesium 1 tablet PO DAILY 02/03/23 12/20/24 History 25 mg-coppr 0.5 yd-szyp-fydl tablet (Caltrate-D3 Plus Minerals) cyclobenzaprine 10 mg tablet 10 mg PO .pm PRN Pain, Moderate 02/03/23 12/20/24 History omeprazole 20 mg capsule,delayed 20 mg PO DAILY 02/03/23 12/20/24 History release azathioprine 50 mg tablet 25 mg PO DAILY 04/18/24 12/20/24 History alendronate 70 mg tablet 70 mg PO WEEKLY 07/21/24 12/20/24 History fluticasone propionate 50 2 spray intranasal DAILY 07/21/24 12/20/24 History mcg/actuation nasal spray,suspension azelastine 137 mcg (0.1 %) nasal 1 spray intranasal .PM 12/20/24 12/20/24 History spray hydroxychloroquine 200 mg tablet 200 mg PO HS 12/20/24 12/20/24 History latanoprost 0.005 % eye drops 1 drp EACH EYE QPM 12/20/24 12/20/24 History primidone 250 mg tablet 250 mg PO Q12H 12/20/24 12/20/24 History Laboratory Tests 12/21/24 14:16 POC Capillary Glucose 110 H mg/dl (65-105) Patient hx anesthesia problems: none Family hx anesthesia problems: none Results Review: All pre-operative results and documents have been reviewed as part of the pre- operative evaluation. [facility] Past Medical History Medical History Restless leg syndrome Rheumatoid arthritis Arthritis Osteoporosis History of UTI Constipation Diarrhea High cholesterol History of falling Memory loss Chronic headaches Rib fracture Hx of migraines Diabetes Bipolar disorder Depression Anxiety Menopause History of alcohol abuse Sober for 9 years Bipolar depression Tremor hands HLD (hyperlipidemia) Surgical History Surgical History History of tonsillectomy History of hand surgery Left History of foot surgery Right x2 Family History Family History Father , Data 97 related to pneumonia Alzheimers disease Mother , Related to fall, Heart disease Unknown Hypertension Heart disease Diabetes mellitus High cholesterol Depression Arthritis Alcoholism Social History Social History Smoking packs per day: 2 Smoking cigarettes per day: 40.0 Years smoked: 24 Smoking pack-years: 48.00 Smoking status: Former smoker Tobacco type: cigarettes Second hand tobacco smoke exposure: No Smoking end date: 10/12/96 Additional smoking assessment comments: Denies Alcohol intake: former Alcohol use details: Quit 14 yrs ago Substance use: never Lack of Transportation: No Lack of Food: Never True Current Housing: I Have Housing Concerned About Future Housing: No Difficulty Paying Gas/Electric Bills: No Difficulty Paying for Meds: No Currently Unemployed: No Education: Master's Degree or Higher Difficulty w/ Childcare or Family Care: No Living arrangements: with family Additional living arrangements comments: Roommate Additional occupation/education comments: Disable Gender identity (if verbalized by the patient): Female Sexual Orientation (if Verbalized by the Patient): Straight or Heterosexual Spiritual care concerns: No Anes - Eval Final PreProcedure Day of Procedure 12/21/24 14:50 Patient weight: normal Heart: regular rate and rhythm Lungs: clear to auscultation Airway: Mallampati scale class III Neurological: alert and oriented Last oral intake: 4 hours ASA classification: IV Emergent: no Anesthetic plan: proceed Anesthesia type and monitoring: general ETT and standard monitoring Results Review: All pre-operative results and documents have been reviewed as part of the pre- operative evaluation. Informed Consent: The patient's anesthetic plan and its attendant risks including aspiration and prolonged intubation and benefits were discussed with the patient/family/POA. Questions were solicited and answers provided to the satisfaction of the patient/family/POA.
[2024-12-21] MEDS: LACTATED RINGERS 1,000 ML 30 ML IV CONT (14:52)
[2024-12-21] MEDS: LIDO 1%/EPINEPHRINE 1:100,000 20 ML VIAL 10 ML INFILTRATE (14:59)
[2024-12-21] MEDS: ceFAZolin 2 GM/D5W 50 ML 2 GM/50 ML BAG IVPB (15:02)
--- NOTE | 2024-12-21 15:03 | SUR.OPER ---
After deliberation and discussion amongst MD Tera and MD Ashly the verdict is to proceed with the case under general anesthesia.
[2024-12-21] MEDS: IBUPROFEN 400 MG TABLET PO (17:12)
== END 2024-12-21 17:20 | disposition home or self-care (01) ==
PROVIDERS: Visit Provider Plastic Surgery
PROC: (CPT 26608; principal; 2024-12-21 17:00)
DX: S62.325A Displaced fracture of shaft of fourth metacarpal bone, left hand, initial encounter for closed fracture (principal); E11.9 Type 2 diabetes mellitus without complications; E78.00 Pure hypercholesterolemia, unspecified; M81.0 Age-related osteoporosis without current pathological fracture; R41.3 Other amnesia; G25.81 Restless legs syndrome; M06.9 Rheumatoid arthritis, unspecified; R51.9 Headache, unspecified; F31.9 Bipolar disorder, unspecified; F41.9 Anxiety disorder, unspecified; W19.XXXA Unspecified fall, initial encounter; Z79.83 Long term (current) use of bisphosphonates; Z98.890 Other specified postprocedural states; Z87.891 Personal history of nicotine dependence; Z82.49 Family history of ischemic heart disease and other diseases of the circulatory system
CPT/HCPCS: 26608; 82948; 99199; A9270; C1713; J0690; J2004; J2405; J2704; J3010; J7120

== ENCOUNTER 2025-01-03 11:47 | Outpatient (CLI) | payer MEDICARE, SELFPAY ==
--- NOTE | ~2025-01-03 | XR_ITS ---
EXAMINATION: XR hand LT min 3V DATE: 01/03/2025 12:07 INDICATION: Displaced fracture of shaft of fourth metacarpal. TECHNIQUE: 3 views of left hand were obtained. COMPARISON: Left wrist radiographs 12/13/2024, left hand radiographs 09/30/2024 FINDINGS: There is an oblique fracture of diaphysis of fourth metacarpal. The distal fracture fragmen t demonstrates 1 mm dorsal ulnar displacement. Callus formation is noted. Fixation is seen with 2 per cutaneous wires. There is an avulsion fracture of the ulnar styloid. There is a comminuted fracture o f radial metaphysis. The main distal fracture fragment demonstrates impaction and dorsal angulation. There is 10 degrees dorsal tilt of the distal articular surface. 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 IMPRESSION: 1. Comminuted fracture of distal radius. 2. Avulsion fracture of the ulnar styloid. 3. Oblique fracture of diaphysis of fourth metacarpal with pin fixation. Reviewed, dictated and finalized at location A.
--- OUTSIDE RECORDS SUMMARY | 2025-01-03 13:59 | XMS_ITS | Clinical Summary ---
Author Organization 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 Radiology at [facility] [address] [place] [address] Discharge Disposition: Discharge to home or self care 11/21/2024 1:20 PM CRUSHER FOREMAN Office Visit [facility] [address] [facility] 2nd Floor [address] [place] [phone] Marialuisa Franklin NP Rheumatoid arthritis with negative rheumatoid factor, involving unspecified site (HCC) (Primary Dx); High risk medication use 11/15/2024 10:40 AM CRUSHER FOREMAN - 11/15/2024 11:59 PM CRUSHER FOREMAN Hospital Encounter [facility] [address] [place] [address] High risk medication use Discharge Disposition: Discharge to home or self care 11/15/2024 10:30 AM CRUSHER FOREMAN Infusion [facility] Therapy [address] [facility] 2nd Floor [address] [place] [phone] Rheumatoid arthritis with negative rheumatoid factor, involving unspecified site (HCC) (Primary Dx) 10/18/2024 10:30 AM CRUSHER FOREMAN Infusion [facility] [address] [facility] 2nd Floor [address] [place] [phone] Rheumatoid arthritis with negative rheumatoid factor, involving [...] on file Legal Sex Female 10:45 PM CRUSHER FOREMAN Gender Identity Not on file Sexual Orientation Not on file Obstetrics History Last Filed Vital Signs Vital Sign Reading Time Taken Comments Blood Pressure 93/58 11/21/2024 1:01 PM CRUSHER FOREMAN Pulse 63 11/21/2024 1:01 PM CRUSHER FOREMAN Temperature 36.6 C (97.8 F) 11/21/2024 1:01 PM CRUSHER FOREMAN Respiratory Rate - - Oxygen Saturation 99% 11/21/2024 1:01 PM CRUSHER FOREMAN Inhaled Oxygen Concentration - - Weight 68 kg (150 lb) 11/21/2024 1:01 PM CRUSHER FOREMAN Height 167.6 cm (5' 5.98 ) 11/21/2024 1:01 PM CS T Body Mass Index 24.22 11/21/2024 1:01 PM CRUSHER FOREMAN Plan of Treatment Health Maintenance Due Date [...] Read Routine (OP Routine) 11/21/2024 2:04 PM CRUSHER FOREMAN Rheumatoid arthritis with negative rheumatoid factor, involving unspecified site (HCC) XR HAND LEFT 3 OR MORE VIEWS Schedule Routine, Read Routine (OP Routine) 11/21/2024 2:04 PM CRUSHER FOREMAN Rheumatoid arthritis with negative rheumatoid factor, involving unspecified site (HCC) XR WRIST RIGHT 3 OR MORE VIEWS Schedule Routine, Read Routine (OP Routine) 11/21/2024 2:04 PM CRUSHER FOREMAN Rheumatoid arthritis with negative rheumatoid factor, involving unspecified site (HCC) XR WRIST LEFT 3 OR MORE VIEWS Schedule Routine, Read Routine (OP Routine) 11/21/2024 2:04 PM CRUSHER FOREMAN Rheumatoid arthritis with negative rheumatoid factor, involving unspecified site (HCC) EGFR Routine 11/15/2024 1:46 PM CRUSHER FOREMAN High risk medication use DIFFERENTIAL AUTO Routine 11/15/2024 1:4 6 PM CRUSHER FOREMAN High risk medication use COMPREHENSIVE METABOLIC PANEL Routine 11/15/2024 1:46 PM CRUSHER FOREMAN High risk medication use CBC WITH AUTO DIFFERENTIAL Routine 11/15/2024 1:46 PM CRUSHER FOREMAN High risk medication use TB TEST, QUANTIFERON GOLD Routine 11/07/2024 3:55 PM CRUSHER FOREMAN High risk medication use DEXA AXIAL SKELETON [...] 3 or More Views (11/21/2024 2:04 PM CRUSHER FOREMAN) Anatomical Region Laterality Modality Upper Extremities, Hand Right Computed Radiography 11/21/2024 2:23 PM CRUSHER FOREMAN Addenda Addendum by Pipe Valdivia MD on 11/22/2024 12:50 PM CRUSHER FOREMAN ADDENDUM: Progressive polyarticular erosions involving the bilateral hands and wrists, most prominent in the carpus bilaterally. This is consistent with progressive inflammatory arthritis in this patient with known rheumatoid arthritis. Electronically signed by: Pipe Valdivia MD Impressions 11/21/2024 2:23 PM CRUSHER FOREMAN 1. Healing fracture of the left 4th metacarpal shaft with shortening and mild ulnar displacement. 2. Polyarticular erosions involving the bilateral hands and wrists, most prominent in the carpus bilaterally. This is consistent with inflammatory arthritis. Statistically, this is most likely due to rheumatoid arthritis. Electronically signed by: Pipe Valdivia MD Narrative 11/21/2024 2:23 PM CRUSHER FOREMAN EXAMINATION: XR WRIST LEFT 3 OR MORE [...] 3 or More Views (11/21/2024 2:04 PM CRUSHER FOREMAN) Anatomical Region Laterality Modality Upper Extremities, Hand Left Computed Radiography 11/21/2024 2:23 PM CRUSHER FOREMAN Addenda Addendum by Pipe Valdivia MD on 11/22/2024 12:50 PM CRUSHER FOREMAN ADDENDUM: Progressive polyarticular erosions involving the bilateral hands and wrists, most prominent in the carpus bilaterally. This is consistent with progressive inflammatory arthritis in this patient with known rheumatoid arthritis. Electronically signed by: Pipe Valdivia MD Impressions 11/21/2024 2:23 PM CRUSHER FOREMAN 1. Healing fracture of the left 4th metacarpal shaft with shortening and mild ulnar displacement. 2. Polyarticular erosions involving the bilateral hands and wrists, most prominent in the carpus bilaterally. This is consistent with inflammatory arthritis. Statistically, this is most likely due to rheumatoid arthritis. Electronically signed by: Pipe Valdivia MD Narrative 11/21/2024 2:23 PM CRUSHER FOREMAN EXAMINATION: XR WRIST LEFT 3 OR MORE [...] 3 or More Views (11/21/2024 2:04 PM CRUSHER FOREMAN) Anatomical Region Laterality Modality Upper Extremities, Wrist Right Compute d Radiography 11/21/2024 2:23 PM CRUSHER FOREMAN Addenda Addendum by Pipe Valdivia MD on 11/22/2024 12:50 PM CRUSHER FOREMAN ADDENDUM: Progressive polyarticular erosions involving the bilateral hands and wrists, most prominent in the carpus bilaterally. This is consistent with progressive inflammatory arthritis in this patient with known rheumatoid arthritis. Electronically signed by: Pipe Valdivia MD Impressions 11/21/2024 2:23 PM CRUSHER FOREMAN 1. Healing fracture of the left 4th metacarpal shaft with shortening and mild ulnar displacement. 2. Polyarticular erosions involving the bilateral hands and wrists, most prominent in the carpus bilaterally. This is consistent with inflammatory arthritis. Statistically, this is most likely due to rheumatoid arthritis. Electronically signed by: Pipe Valdivia MD Narrative 11/21/2024 2:23 PM CRUSHER FOREMAN EXAMINATION: XR WRIST LEFT 3 OR MORE [...] signed by: Pipe Valdivia MD Marialuisa Franklin BOILERS AND PRESSURE VESSELS INSPECTOR IMG XR PROCEDURES Edited R esult - Final * XR Wrist Left 3 or More Views (11/21/2024 2:04 PM CRUSHER FOREMAN) Anatomical Region Laterality Modality Upper Extremities, Wrist Left Compute d Radiography 11/21/2024 2:23 PM CRUSHER FOREMAN Addenda Addendum by Pipe Valdivia MD on 11/22/2024 12:50 PM CRUSHER FOREMAN ADDENDUM: Progressive polyarticular erosions involving the bilateral hands and wrists, most prominent in the carpus bilaterally. This is consistent with progressive inflammatory arthritis in this patient with known rheumatoid arthritis. Electronically signed by: Pipe Valdivia MD Impressions 11/21/2024 2:23 PM CRUSHER FOREMAN 1. Healing fracture of the left 4th metacarpal shaft with shortening and mild ulnar displacement. 2. Polyarticular erosions involving the bilateral hands and wrists, most prominent in the carpus bilaterally. This is consistent with inflammatory arthritis. Statistically, this is most likely due to rheumatoid arthritis. Electronically signed by: Pipe Valdivia MD Narrative 11/21/2024 2:23 PM CRUSHER FOREMAN EXAMINATION: XR WRIST LEFT 3 OR MORE [...] - Final * eGFR (11/15/2024 1:46 PM CRUSHER FOREMAN) eGFR 67 >=60 mL/min/1. 73 m2 Comment: [...] last reviewed 2021. Blood 11/15/2024 1:46 PM CRUSHER FOREMAN 11/15/2024 2:48 PM CRUSHER FOREMAN us Marialuisa Franklin NP LAB BLOOD ORDERABLES Final Result [facility] [place] [address] * Differential, auto (11/15/2024 1:46 PM CRUSHER FOREMAN) Neutrophil abs 3.2 1.5 - 6.5 K/cumm [...] revised on 2018. Blood 11/15/2024 1:46 PM CRUSHER FOREMAN 11/15/2024 1:59 PM CRUSHER FOREMAN Marialuisa Franklin BOILERS AND PRESSURE VESSELS INSPECTOR LAB BLOOD ORDERABLES Final Result [facility] [place] [employer] [place] [address] * CBC with auto differential (11/15/2024 1:46 PM CRUSHER FOREMAN) Pathologist [facility] WBC 5.0 3.8 - [...] K/cumm [facility] Blood 11/15/2024 1:46 PM CRUSHER FOREMAN 11/15/2024 1:59 PM CRUSHER FOREMAN Marialuisa Franklin NP LAB BLOOD ORDERABLES Final Result [facility] Department [place] [employer] [place] [address] * Comprehensive metabolic panel (11/15/2024 1:46 PM CRUSHER FOREMAN) Pathologist [facility] Sodium 139 135 - [...] Units/L [facility] Blood 11/15/2024 1:46 PM CRUSHER FOREMAN 11/15/2024 2:48 PM CRUSHER FOREMAN us Marialuisa Franklin BOILERS AND PRESSURE VESSELS INSPECTOR LAB BLOOD ORDERABLES Final Result [facility] [place] [address] * TB test, quantiferon gold (11/07/2024 3:55 PM CRUSHER FOREMAN) [facility] QuantiFERON(R)-T B Gold Plus, 1 Tube NEGATIVE [...] T-lymphocytes. For additional information, please refer to https://education.ePod Solar.drchrono/faq/HFI361 (This link is being provided for informational/ educational purposes only.) Blood 11/07/2024 3:55 PM CRUSHER FOREMAN 11/07/2024 3:56 PM CRUSHER FOREMAN Marialuisa Franklin NP LAB BLOOD ORDERABLES Final Result [facility] [address] [place] [address] * Dexa Axial Skeleton Bone Density 1 or 2 Site (03/08/2024 9:24 AM CDT) Anatomical Region Laterality Modality Body N/A Radiographic Erna ging Narrative 03/08/2024 9:48 PM CDT Patient Name: Sheri Shin Date of : 1955 Date of scan: 03/08/2024 Bone mineral density was performed on a Hologic Discovery Densitometer. Based on machine cross-calibration and [...] mineral density scan were prepared by Parul Nicolas(R) CBDT who is accredited by the International Society of Clinical Densitometry. The overall patient assessment and scan interpretation were performed by Mar Orozco MD who is certified by the International Society of Clinical Densitometry. [id number] Marialuisa Franklin BOILERS AND PRESSURE VESSELS INSPECTOR IMG DXA PROCEDURES Final R esult * [...] Edited Result - Final [facility] [place] [address] from Last 3 Months or Most Recently Relevant to Health Maintenance Insurance IDPA [facility] MEDICARE ADVANTAGE [facility] MEDICARE Address: [address] [address] [place] [address] [facility] MEDICARE MEDICARE [facility] MEDICARE ADVANTAGE [facility] MEDICARE Address: [address] [address] [place] [address] Care Teams Nurse Licensed Practical Relationship Specialty Start Date End Date Kerry Coffman DO [address] [place] [address] PCP - General Internal Medicine 04/19/24
--- OUTSIDE RECORDS SUMMARY | 2025-01-03 13:59 | XMS_ITS | Encounter Summary ---
Author Organization [facility] Address [address] [place] [address] Care Team Providers Care Photographer Lithographic Name Role Phone Joan Robins MD Primary Care Provider PenndelKerry reddy DO Primary Care Provider [phone] Kerry Coffman DO Unavailable [phone] Encounter Details Date Type Department Care Team (Late st Contact Info) Description 12/18/2021 Telephone [facility] [address] [place], [place] [phone] Rissa Vo MD Social History Tobacco Use Types Packs/Day Years Used Date Smoking Tobacco: Former Smokeless Tobacco: Never Alcohol Use Standard Drinks/Week Comments Never 0 (1 standard drink = 0.6 oz pur e alcohol) Sex and Gender Information Value Date Recorded Sex Assigned at Female 09/16/2024 2:41 PM PLASTERER SPOT Gender Identity Female 09/16/2024 2:41 PM PLASTERER SPOT Sexual Orientation Straight 09/16/2024 2: 41 PM PLASTERER SPOT COVID-19 Exposure Response Date Recorded In the last month, have you been in contact with someone who was confirmed or suspected to have Coronavirus / COVID-19? No / Unsure 12/19/2021 5:58 AM PLASTERER SPOT documented as of this encounter Patient Instructions * Patient Instructions* Donny Elliott - 12/18/2021 6:58 AM PLASTERER SPOT Pt was bumped from 03/17/2022 DBN appt. [facility] does not schedule for these appt types. Please reschedule from the bump list. TERER SPOT documented in this encounter Plan of Treatment Upcoming Encounters Date Type Department Care Team (Late st Contact Info) Description 01/25/2025 10:30 AM CDT Office Visit [facility] - GI [address] [place] [address], [place] [phone] Yolanda Greer, SKIVER HEEL TAP-SPIN TABLE OPERATOR [address] [place] [phone] 01/31/2025 11:00 AM CDT Office Visit [facility] - Internal Medicine [address], [address] [phone] Kerry Coffman DO [address] [place] [address] [address] DIV [place] [address] 02/09/2025 11:15 AM CDT Office Visit [facility] - Ophthalmology [address] [place] [address], [place] [phone] Percy Matute MD [address] [place] [address] [place] [phone] 02/09/2025 4:00 PM CDT Office Visit [facility] - Allergy [address] [place] [address], [place] [phone] Papito Morales MD [address] [place] [address] [address] DIV OF ALLERGY/[place] [address] 03/02/2025 1:00 PM CDT Office Visit [facility] - Neurology [address] [place] [address], [place] [phone] Moncho Salcedo, SKIVER HEEL TAP-SPIN TABLE OPERATOR [address] [place] [address] [address] [place] [phone] 04/13/2025 3:00 PM CDT Office Visit [facility] - Allergy [address] [place] [address], [place] [address] Papito Morales MD [address] [place] [address] [address] DIV OF ALLERGY/[place] [address] documented as of this encounter Visit Diagnoses Not on filedocumented in this encounter Additional Health Concerns Infection Onset Date Last Indicated Resolved Time CDIFF Under Investigation 07/20/2024 07/20/2024 4:33 AM CDT CDIFF Under Investigation 10/26/2024 11/07/2024 4:33 AM PLASTERER SPOT CDIFF Under Investigation 11/07/2024 11/07/2024 5:38 PM PLASTERER SPOT documented as of this encounter Care Teams Photographer Lithographic Relationship Specialty Start Date End Date Joan Robins MD [address] [place], [place] [phone] PCP - General 02/14/19 12/14/23 Kerry Coffman DO [address] [place] [address] [address] [place] [address] PCP - General Internal Medicine 12/15/23 Kerry Coffman DO [address] [place] [address] [address] [place] [address] PCP - Attributed-[facility] P[facility] 12/10/24 documented as of this encounter
--- OUTSIDE RECORDS SUMMARY | 2025-01-03 13:59 | XMS_ITS | Clinical Summary ---
Author Organization [facility] [employer] Address [address] [place] [address] Care Team Providers Care Clinical Documentation Improvement Specialist Name Role Phone Kerry Coffman DO Primary Care Provider [phone] Kerry Cofmfan DO Unavailable Source Comments [facility],non-owned Affiliates and Associated Physician Practices is amultiple site organization consisting of ambulatory clinics and hospital sitesin [place], [place], [place] and [place]. This disclosure is being madepursuant to the Care Everywhere program and may not contain all information available regarding this patient. Last updated 18.[facility] [employer] Allergies Active Allergy Reactions Criticality Noted Date [...] hyperglycemia, without long-term current use of insulin ([facility]) Use 1 Each 2 times [...] tabletIndications: Bipolar affective disorder, remission status unspecified ([facility]) Take 1 (one) tablet by [...] route every 30 days Active blood glucose (Sundance Research InstituteTouch Ultra) test stripIndications:T ype 2 diabetes mellitus with hyperglycemia, without long-term current use of insulin ([facility]) USE 1 STRIP TO CHECK [...] rhinitis, unspecified seasonality, unspecified trigger,Chronic daily headache Weiser 2 (two) sprays into each nostril once daily 16 g 6 08/11/2024 Active azelastine (Astelin) 0.1 % nasal sprayIndications:C hronic rhinitis,Allergic rhinitis, unspecified seasonality, unspecified trigger,Chronic daily headache Weiser 1 (one) spray into each nostril 2 [...] Encounters Date Type Department Care Team Description 12/23/2024 12:26 PM CDT - 12/23/2024 2:22 PM CDT Emergency [facility] EMERGENCY DEPARTMENT [address] [place] [address] Cornelio Richardson MD Ground-level fall (Primary Dx); Acute pain of left shoulder; Left hip pain Discharge Disposition: Home or Self Care 12/23/2024 Travel 12/19/2024 Telephone [facility] - Endocrinology [address] [facility] [place] [address] Haydee Simmons, RN Results 12/13/2024 Orders Only [facility] - Neurology [address] [place] [phone] Moncho Salcedo APRN-CNP Cognitive decline 12/08/2024 9:17 AM ORAL HYGIENIST - 12/08/2024 11:59 PM ORAL HYGIENIST Hospital Encounter [facility] CAT SCAN [address] [place] [address] Cornelio Lima MD Discharge Disposition: Home or Self Care 12/08/2024 9:17 AM ORAL HYGIENIST - 12/08/2024 11:59 PM ORAL HYGIENIST Hospital Encounter [facility] CAT SCAN [address] [place] [address] Cornelio Lima MD Discharge Disposition: Home or Self Care 12/08/2024 7:08 AM ORAL HYGIENIST - 12/08/2024 9:16 AM ORAL HYGIENIST Hospital Encounter [facility] DIAGNOSTIC RAD [address] [place] [address] Cornelio Lima MD Discharge Disposition: Home or Self Care 12/08/2024 Travel 11/28/2024 Telephone [facility] - Neurology [address] [place] [phone] Moncho Salcedo APRN-INCENDIARY POWDER MIXER Medication Prior Auth Request (Emgality) 11/23/2024 10:58 AM ORAL HYGIENIST - 11/23/2024 11:59 PM ORAL HYGIENIST Hospital Encounter [facility] DIAGNOSTIC RAD [address]SM [address] [place] [address] Cornelio Lima MD Discharge Disposition: Home or Self Care 11/23/2024 10:58 AM ORAL HYGIENIST - 11/23/2024 11:59 PM ORAL HYGIENIST Hospital Encounter [facility] DIAGNOSTIC RAD [address] [place] [address] Cornelio Lima MD Discharge Disposition: Home or Self Care 11/23/2024 10:00 AM ORAL HYGIENIST Office Visit [facility] - Orthopedics [address] [place] [phone] Cornelio Lima MD Lumbar spine pain (Primary Dx); Lumbar spondylosis; Spondylolisthesis of lumbar region; Degenerative scoliosis in adult patient; Cervical spondylosis with myelopathy; Cervicalgia 11/23/2024 9:49 AM ORAL HYGIENIST - 11/23/2024 10:57 AM ORAL HYGIENIST Hospital Encounter [facility] DIAGNOSTIC RAD [address] [address] [facility] [place] [address] Cornelio Lima MD Discharge Disposition: Home or Self Care 11/23/2024 Travel 11/14/2024 Telephone [facility] - Neurology [address] [place] [phone] Moncho Salcedo APRN-CNP Medication Clarification (Emgaltiy) 11/11/2024 10:15 AM ORAL HYGIENIST - 11/11/2024 11:00 AM ORAL HYGIENIST Surgery [facility] ENDOSCOPY [address] [place] [address] Sixto Cornell MD COLONOSCOPY SCREEN--extended prep 11/11/2024 10:00 AM ORAL HYGIENIST Anesthesia Event [facility] ENDOSCOPY [address] [place] [address] Doug Forrester MD Dobbs, Kristin L, APRN-PARKING GARAGE MANAGER 11/11/2024 8:14 AM ORAL HYGIENIST - 11/11/2024 11:24 AM ORAL HYGIENIST Hospital Encounter [facility] OP [address] [place] [address] Sixto Cornell MD Surgery General Discharge Disposition: Home or Self Care 11/11/2024 Travel 11/04/2024 Patient Outreach [facility] ENDOSCOPY [address] [place] [address] Samantha Monterroso RN 11/02/2024 3:30 PM ORAL HYGIENIST Office Visit [facility] - Neurology [address] [place] [phone] Moncho Salcedo APRN-CNP Intractable 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 (Primary Dx) 11/02/2024 Travel 10/26/2024 10:30 AM ORAL HYGIENIST Office Visit [facility] - GI [address] [facility] [place] [phone] Yolanda Greer APRN-ARELY Chronic diarrhea (Primary Dx) 10/26/2024 Travel 10/25/2024 Orders Only [facility] ENDOSCOPY [address] [place] [phone] Wendy Humphrey RN 10/24/2024 Travel 10/20/2024 Telephone [facility] - Centralized Scheduling [address] [place] [phone] Moncho Salcedo APRN-ARELY Appointment 10/06/2024 Orders Only [facility] DIAGNOSTIC RAD OP [address] [place] [phone] Alok Christie III, MD Spondylolisthesis at L4-L5 level from Last 3 Months Immunizations Name Administration [...] Sex Assigned at Female 09/16/2024 2:41 PM ORAL HYGIENIST Gender Identity Female 09/16/2024 2:41 PM ORAL HYGIENIST Sexual Orientation Straight 09/16/2024 2: 41 PM ORAL HYGIENIST Last Filed Vital Signs Vital Sign Reading Time Taken Comments Blood Pressure 108/77 12/23/2024 12:45 PM CDT Pulse 58 12/23/2024 12:45 PM CDT Temperature 36.5 C (97.7 F) 12/23/2024 12:45 PM CDT Respiratory Rate 18 12/23/2024 12:45 PM CDT Oxygen Saturation 98% 12/23/2024 12:45 PM CDT Inhaled Oxygen Concentration - - Weight 67.1 kg (148 lb) 12/23/2024 8:16 AM CDT Height 167.6 cm (5' 6 ) 12/23/2024 8:16 AM CDT Body Mass Index 23.89 12/23/2024 8:16 AM CDT Plan of Treatment Upcoming Encounters Date Type Department Care Team (Late st Contact Info) Description 01/25/2025 10:30 AM CDT Office Visit [facility] - GI [address] [place] [address], [place] [phone] Yolanda Greer, MANAGER ENVIRONMENTAL HEALTH AND SAFETY-INCENDIARY POWDER MIXER [address] [place] [phone] 01/31/2025 11:00 AM CDT Office Visit [facility] - Internal Medicine [address], [address] [phone] Kerry Coffman DO [address] [place] [address] 2L [place] [address] 02/09/2025 11:15 AM CDT Office Visit [facility] - Ophthalmology [address] [place] [phone] Percy Matute MD [address] [place] [address] [place] [phone] 02/09/2025 4:00 PM CDT Office Visit [facility] - Allergy [address] [place] [address], [place] [phone] Papito Morales MD [address] [place] [address] 2L DIV OF ALLERGY/[place] [address] 03/02/2025 1:00 PM CDT Office Visit [facility] - Neurology [address] [place] [address] [place] [phone] Moncho Salcedo, MANAGER ENVIRONMENTAL HEALTH AND SAFETY-INCENDIARY POWDER MIXER [address] [place] [address] 1[address] [place] [phone] 04/13/2025 3:00 PM CDT Office Visit [facility] - Allergy [address] [place] [address], [place] [phone] Papito Morales MD [address] [place] [address] 2L DIV [place] ALLERGY/[place] [address] Health Maintenance Due Date Last Done Comments [...] 09/19/2024 DIABETES-FOOT EXAM WITH MONOFILAMENT 04/04/2025 04/04/2024 MAMMOGRAM 09/18/2025 09/18/2023 (Done Outside Per Report) DIABETES-SERUM CREATININE 12/23/20252024, 07/20/2024, 05/15/2023, Additional history exists DIABETES RETINOPATHY SCREENING 08/11/2026 08/11/2024, 08/11/2024, 07/28/2024 COLONOSCOPY - COLON CA SCREENING 11/11/2029 11/11/2024, 11/11/2024, 07/29/2024 Colorectal Cancer Screening 11/11/2029 DTAP/TDAP/TD VACCINES (3 - Td or Tdap) 03/08/2033 03/08/2023, 06/17/2014 COLON MONITORING 11/11/2034 11/11/2024, , 07/29/2024 HEPATITIS C SCREENING Completed 05/24/2020 (Done Outside Per Report) PNEUMOCOCCAL VACCINE 50+ Completed 021, 07/02/2020, 2018, Additional history exists ZOSTER VACCINE Completed 10/15/2022, 12/11, 05/16/2021 BONE DENSITY TESTING Completed 03/08/2024, 08/08/20 HIB VACCINE Aged Out No longer eligi ble based on patient's age to complete this topic HPV VACCINE Aged Out No longer eligi ble based on patient's age to complete this topic MENINGOCOCCAL (Group B) VACCINE SHARED DECISION-MAKING Aged Out No longer eligible based on patient's age to complete this topic MENINGOCOCCAL GROUPS A/C/Y/W VACCINE Aged Out No longer eligible based on patient's age to complete this topic Goals Goal Patient Goal Type Associated Problems Recent Progress Patient-Stated? Author Medication Management General On track( 025 10:42 AM ORAL HYGIENIST) Marion Scott, RN Note: Expected end date: ongoing Interventions: Take all medications as prescribed Medical Devices Implanted Type Area Change Person Device Identifier Shelf Expiration Date Model / Serial / Lot Slnt Dura Duraseal Pg Trilysine Amine 5 Implanted:Qty: 1 on 03/17/2022 by Jackelyn Yang MD at [facility] Left: Cranial [employer] 08/11/2023 [id number] / / [id number] Guardian Branial Yuriy Hole Cover Sys Implanted:Qty: 1 on 03/17/2022 by Jackelyn Yang MD at [facility] Left: Cranial [email or web address] 01/01/2024 6010 / / [id number] Directional Lead Implanted:Qty: 1 on 03/17/2022 by Shailesh North MD at [facility] Left: Cranial [employer] 09/25/2023 6172 / [id number] / Lead Extension Implanted:Qty: 1 on 03/24/2022 by Shailesh North MD at [facility] Left: Neck [employer] 01/15/2024 [id number] / / [id number] Generator Implanted:Qty: 1 on 03/24/2022 by Shailesh North MD at [facility] Left: Chest [employer] 11/19/2023 6662 / / [id number] [place] Spnl 140mm 6.35mm Ti Str Implanted:Qty: 1 on 08/29/2022 by Shailesh North MD at [facility] Right: Scalp [employer] 04/02/2024 6010 / / [employer] Dbs System Implanted:Qty: 1 on 08/29/2022 by Joshua Gill MD at [facility] Right: Brain 03/19/2024 6172 / [id number] / Description:cost per [facility] [employer] Dbs System Implanted:Qty: 1 on 08/29/2022 by Joshua Gill MD at [facility] Right: Chest Wall 04/23/2024 6373 / [id number] / Description:cost per levar Procedures Procedure Name Priority Date/Time Associated Diagnosis Comments CARDIAC EKG ORDER 12/26/2024 1:2 8 PM CDT TROPONIN-I HIGH SENSITIVE REFLEX 1HOUR Timed 12/23/2024 10:40 AM CDT URINALYSIS REFLEX TO MICROSCOPIC NO CULTURE STAT 12/23/2024 10:[address] CERVICAL SPINE WO CONTRAST STAT 12/23/2024 9:33 AM CDT Ground-level fall CT HEAD WO CONTRAST STAT 12/23/2024 9 :33 AM CDT Ground-level fall TROPONIN-I HIGH SENSITIVE BASELINE + 1HR STAT 12/23/2024 9:06 AM CDT COMPREHENSIVE METABOLIC PANEL STAT 12/23/2024 9:06 AM CDT CBC W AUTO DIFFERENTIAL STAT 12/23/2024 9:06 AM CDT EKG 12-LEAD Routine 12/23/2024 9:05 AM CDT Ground-level fall XR TIBIA FIBULA LEFT 2VW STAT 12/23/2024 9:00 AM CDT Ground-level fall XR SHOULDER LEFT 2VW OR MORE STAT 12/23/2024 9:00 AM CDT Ground-level fall XR PELVIS W LEFT HIP 2VW STAT 12/23/2024 9:00 AM CDT Ground-level fall XR KNEE LEFT 2VW OR LESS STAT 12/23/2024 8:58 AM CDT Ground-level fall XR FEMUR LEFT 2VW STAT 12/23/2024 8:5 8 AM CDT Ground-level fall XR CHEST 2VW STAT 12/23/2024 8:58 AM CDT Ground-level fall XR ANKLE LEFT 3VW OR MORE STAT 12/23/2024 8:58 AM CDT Ground-level fall FL MYELOGRAM 2 OR MORE REGIONS Routine 12/08/2024 10:27 AM ORAL HYGIENIST Lumbar spine pain CT LUMBAR POST MYELOGRAM Routine 12/08/2024 10:25 AM ORAL HYGIENIST Lumbar spine pain CT CERVICAL POST MYELOGRAM Routine 12/08/2024 10:25 AM ORAL HYGIENIST Lumbar spine pain XR SPINE ENTIRE 2 OR 3VW Routine 11/23/2024 11:09 AM ORAL HYGIENIST Lumbar spine pain XR CERVICAL SPINE 2 OR 3VW Routine 11/23/2024 11:06 AM ORAL HYGIENIST Lumbar spine pain XR LUMBAR SPINE 2 OR 3VW Routine 11/23/2024 10:00 AM ORAL HYGIENIST Lumbar spine pain PATHOLOGY TISSUE Routine 11/11/2024 10:1 6 AM ORAL HYGIENIST Screen for colon cancer DC COLOREC CANC SCRN,SCOPY NOT HI RISK 11/11/2024 9:55 AM ORAL HYGIENIST Screen for colon cancer ENDOSCOPY, COLON, SCREENING Routine 11/11/2024 9:52 AM ORAL HYGIENIST GLUCOSE - POINT OF CARE Routine 11/11/2024 9:19 AM ORAL HYGIENIST CALPROTECTIN FECAL Routine 11/07/2024 3: 52 PM ORAL HYGIENIST Chronic diarrhea CULTURE STOOL PANEL Routine 11/07/2024 3 :52 PM ORAL HYGIENIST Chronic diarrhea C DIFFICILE CYTOTOXIN Routine 11/07/2024 3:51 PM ORAL HYGIENIST Chronic diarrhea PROC DEEP BRAIN STIMULATOR Routine 11/03/2024 2:08 PM ORAL HYGIENIST Intractable 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 HEMOGLOBIN A1C - POINT OF CARE (AMB) [facility] Routine 04/04/2024 11:34 AM CDT Type 2 diabetes mellitus with hyperglycemia, without long-term current use of insulin MICROALB/CREAT RATIO URINE RANDOM PANEL 02/05/2023 12:26 PM CDT from Last 3 Months or Most Recently Relevant to Health Maintenance Results * CARDIAC EKG ORDER (12/26/2024 1:28 PM CDT) Narrative 12/26/2024 1:28 PM CDT Ordered by an unspecified provider. Scanned Document CARDIAC SERVICES ORD ERABLES * TROPONIN-I HIGH SENSITIVE REFLEX 1HOUR (12/23/2024 10:40 AM CDT) Troponin I High Sensitive <3 <=14 ng/L 12/23/2024 11:21 AM [facility] Delta Troponin I HS 12/23/2024 11:21 AM [facility] Comment:Delta value intentio yasir not calculated. Baseline to 1 hour specimen collection interval exceeded. Blood BLOOD SPECIMEN / Unknown Venipuncture / Unknown 12/23/2024 10:40 AM CDT 12/23/2024 10:44 AM T Yuval Krueger MD LAB - CHEMISTRY [facility] [address] [address], [facility] [phone] * (ABNORMAL) URINALYSIS REFLEX TO MICROSCOPIC NO CULTURE (12/23/2024 10:21 AM CDT) Color UA Colorless(A ) Yellow, Straw 12/23/2024 10:41 AM [facility] Clarity UA Clear Clear 12/23/2024 10:41 AM [facility] Glucose UA Normal Normal 12/23/2024 10:41 AM [facility] Bilirubin UA Negative Negative 12/23/2024 10:41 AM [facility] Ketone UA Negative Negative 12/23/2024 10:41 AM [facility] Specific Dewart UA <1.005(L) 1.005 - 1.030 12/23/2024 10:41 AM [facility] Blood UA Negative Negative 12/23/2024 10:41 AM [facility] pH UA 7.5 5.0 - 9.0 pH 12/23/2024 10:41 AM [facility] Protein UA Negative Negative 12/23/2024 10:41 AM [facility] Urobilinogen UA Normal Normal mg/dL 12/23/2024 10:41 AM [facility] Nitrite UA Negative Negative 12/23/2024 10:41 AM [facility] Leukocyte UA Negative Negative 12/23/2024 10:41 AM [facility] Urine URINE SPECIMEN OBTAINED BY CLEAN CATCH PROCEDURE / Unknown Collection / Unknown 12/23/2024 10:21 AM CDT 12/23/2024 10:31 AM CDT Yuval Krueger MD LAB - URINALYSIS ORD ERABLES [facility] [address] [place] [address], [facility] [phone] * CT CERVICAL SPINE WO CONTRAST (12/23/2024 9:33 AM CDT) Anatomical Region Laterality Modality Spine Computed Tomogra phy 12/23/2024 9:33 AM CDT Impressions 12/23/2024 11:16 AM CDT IMPRESSION: 1. No acute intracranial process. 2. No evidence of acute fracture in the cervical spine. 3. Multiple chronic findings as detailed in the report. > Dictated by Balaji Browne MD (Industrial Sales Engineer), 12/23/2024 9:47 AM. I, Masha Alexandra MD have personally reviewed and interpreted this examination/study. > Interpreting Provider: Masha Alexandra MD on 12/23/2024 11:16 AM Narrative 12/23/2024 11:16 AM CDT PROCEDURE: CT HEAD WO CONTRAST, CT CERVICAL SPINE WO CONTRAST, DATE/TIME OF EXAM: 12/23/2024 9:33 AM, LOCATION [facility] INDICATION: W18.30XA: Ground-level fall EXAMINATION: 1. Computed tomography (CT) of the head without contrast 2. CT of the cervical spine without contrast TECHNIQUE: CT of the head and cervical spine were performed without contrast according to standard protocol. COMPARISON: CT head 08/30/2022, CT cervical spine 12/08/2024 FINDINGS: Head: There are bilateral frontal approach deep brain stimulator leads terminating in the expected location of the bilateral subthalamic nuclei. The exam is degraded secondary to resulting beam hardening artifact. No acute intracranial hemorrhage or intra- or extra-axial fluid collections are identified. There is mild cerebral volume loss with associated ex vacuo ventricular dilatation. The basal cisterns are patent. No mass effect or midline shift is seen. The sharma-white matter differentiation is normal. Periventricular white matter hypoattenuation is a nonspecific finding that may be indicative of chronic small vessel ischemic disease. There is atherosclerotic calcification of the carotid siphons. Other than right-sided cataract traction, the visualized portions of the orbits, paranasal sinuses, and mastoids appear normal. No acute calvarial fracture is identified. Cervical spine: There is atherosclerotic calcification of the carotid bifurcations. There is mild dextrocurvature of the cervical spine which could be positional. There is straightening of the cervical spine likely secondary to positioning. Redemonstrated is suspected trace anterolisthesis of C7 on T1. The prevertebral soft tissue is normal in thickness. The bones are mildly osteopenic. Vertebral bodies are normal in height without evidence of acute fracture. Other than middle atlantoaxial joint osteoarthritis, the craniocervical junction appears normal. There is mild to moderate multilevel degenerative disc disease, most prominent at the levels of C3-C4. There is multilevel mild to moderate central canal stenosis, most prominent at the levels of C5-C6 and C6-7 C7 secondary to disc bulge and posterior osteophytes. There are varying degrees of mild to moderate multiple facet osteoarthritis. There are varying degrees of mild to moderate multilevel uncovertebral joint osteoarthritis with the same degree of neural foraminal stenosis at these levels. Procedure Note Masha Alexandra MD - 12/23/2024 PROCEDURE: CT HEAD WO CONTRAST, CT CERVICAL SPINE WO CONTRAST,DATE/TIME OF EXAM: 12/23/2024 9:33 AM, LOCATION [facility] INDICATION: W18.30XA: Ground-level fall EXAMINATION: 1. Computed tomography (CT) of the head without contrast 2. CT of the cervical spine without contrast TECHNIQUE: CT of the head and cervical spine were performed without contrast according to standard protocol. COMPARISON: CT head 08/30/2022, CT cervical spine 12/08/2024 FINDINGS: Head: There are bilateral frontal approach deep brain stimulator leads terminating in the expected location of the bilateral subthalamicnuclei. The exam is degraded secondary to resulting beam hardening artifact. No acute intracranial hemorrhage or intra- or extra-axial fluidcollections are identified. There is mild cerebral volume loss with associated exvacuo ventricular dilatation. The basal cisterns are patent. No mass effect or midline shift is seen. The sharma-white matter differentiation is normal. Periventricular white matter hypoattenuation is a nonspecific findingthat may be indicative of chronic small vessel ischemic disease. There is atherosclerotic calcification of the carotid siphons. Other than right-sided cataract traction, the visualized portions of the orbits, paranasal sinuses, and mastoids appear normal. No acute calvarial fracture is identified. Cervical spine: There is atherosclerotic calcification of the carotid bifurcations. There is mild dextrocurvature of the cervical spine which could be positional. There is straightening of the cervical spine likelysecondary to positioning. Redemonstrated is suspected trace anterolisthesis of C7on T1. The prevertebral soft tissue is normal in thickness. The bones are mildly osteopenic. Vertebral bodies are normal in height withoutevidence of acute fracture. Other than middle atlantoaxial joint osteoarthritis,the craniocervical junction appears normal. There is mild to moderate multilevel degenerative disc disease, most prominent at the levels of C3-C4. There is multilevel mild to moderate central canal stenosis, most prominent at the levels of C5-C6 and C6-7 C7 secondary to disc bulge and posterior osteophytes. There are varying degrees of mild to moderate multiple facet osteoarthritis. There are varying degrees of mild to moderate multilevel uncovertebral joint osteoarthritis with the samedegree of neural foraminal stenosis at these levels. IMPRESSION: 1. No acute intracranial process. 2. No evidence of acute fracture in the cervical spine. 3. Multiple chronic findings as detailed in the report. > Dictated by Balaji Browne MD (Industrial Sales Engineer), 12/23/2024 9:47 AM. Masha Gutierrez MD have personally reviewed and interpreted this examination/study. > Interpreting Provider: Masha Alexandra MD on 12/23/2024 11:16 AM Yuval Krueger MD CT ORDERABLES * CT HEAD WO CONTRAST (12/23/2024 9:33 AM CDT) Anatomical Region Laterality Modality Head Computed Tomogra phy 12/23/2024 9:33 AM CDT Impressions 12/23/2024 11:16 AM CDT IMPRESSION: 1. No acute intracranial process. 2. No evidence of acute fracture in the cervical spine. 3. Multiple chronic findings as detailed in the report. > Dictated by Balaji Browne MD (Industrial Sales Engineer), 12/23/2024 9:47 AM. I, Masha Alexandra MD have personally reviewed and interpreted this examination/study. > Interpreting Provider: Masha Alexandra MD on 12/23/2024 11:16 AM Narrative 12/23/2024 11:16 AM CDT PROCEDURE: CT HEAD WO CONTRAST, CT CERVICAL SPINE WO CONTRAST, DATE/TIME OF EXAM: 12/23/2024 9:33 AM, LOCATION [facility] INDICATION: W18.30XA: Ground-level fall EXAMINATION: 1. Computed tomography (CT) of the head without contrast 2. CT of the cervical spine without contrast TECHNIQUE: CT of the head and cervical spine were performed without contrast according to standard protocol. COMPARISON: CT head 08/30/2022, CT cervical spine 12/08/2024 FINDINGS: Head: There are bilateral frontal approach deep brain stimulator leads terminating in the expected location of the bilateral subthalamic nuclei. The exam is degraded secondary to resulting beam hardening artifact. No acute intracranial hemorrhage or intra- or extra-axial fluid collections are identified. There is mild cerebral volume loss with associated ex vacuo ventricular dilatation. The basal cisterns are patent. No mass effect or midline shift is seen. The sharma-white matter differentiation is normal. Periventricular white matter hypoattenuation is a nonspecific finding that may be indicative of chronic small vessel ischemic disease. There is atherosclerotic calcification of the carotid siphons. Other than right-sided cataract traction, the visualized portions of the orbits, paranasal sinuses, and mastoids appear normal. No acute calvarial fracture is identified. Cervical spine: There is atherosclerotic calcification of the carotid bifurcations. There is mild dextrocurvature of the cervical spine which could be positional. There is straightening of the cervical spine likely secondary to positioning. Redemonstrated is suspected trace anterolisthesis of C7 on T1. The prevertebral soft tissue is normal in thickness. The bones are mildly osteopenic. Vertebral bodies are normal in height without evidence of acute fracture. Other than middle atlantoaxial joint osteoarthritis, the craniocervical junction appears normal. There is mild to moderate multilevel degenerative disc disease, most prominent at the levels of C3-C4. There is multilevel mild to moderate central canal stenosis, most prominent at the levels of C5-C6 and C6-7 C7 secondary to disc bulge and posterior osteophytes. There are varying degrees of mild to moderate multiple facet osteoarthritis. There are varying degrees of mild to moderate multilevel uncovertebral joint osteoarthritis with the same degree of neural foraminal stenosis at these levels. Procedure Note Masha Alexandra MD - 12/23/2024 PROCEDURE: CT HEAD WO CONTRAST, CT CERVICAL SPINE WO CONTRAST,DATE/TIME OF EXAM: 12/23/2024 9:33 AM, LOCATION [facility] INDICATION: W18.30XA: Ground-level fall EXAMINATION: 1. Computed tomography (CT) of the head without contrast 2. CT of the cervical spine without contrast TECHNIQUE: CT of the head and cervical spine were performed without contrast according to standard protocol. COMPARISON: CT head 08/30/2022, CT cervical spine 12/08/2024 FINDINGS: Head: There are bilateral frontal approach deep brain stimulator leads terminating in the expected location of the bilateral subthalamicnuclei. The exam is degraded secondary to resulting beam hardening artifact. No acute intracranial hemorrhage or intra- or extra-axial fluidcollections are identified. There is mild cerebral volume loss with associated exvacuo ventricular dilatation. The basal cisterns are patent. No mass effect or midline shift is seen. The sharma-white matter differentiation is normal. Periventricular white matter hypoattenuation is a nonspecific findingthat may be indicative of chronic small vessel ischemic disease. There is atherosclerotic calcification of the carotid siphons. Other than right-sided cataract traction, the visualized portions of the orbits, paranasal sinuses, and mastoids appear normal. No acute calvarial fracture is identified. Cervical spine: There is atherosclerotic calcification of the carotid bifurcations. There is mild dextrocurvature of the cervical spine which could be positional. There is straightening of the cervical spine likelysecondary to positioning. Redemonstrated is suspected trace anterolisthesis of C7on T1. The prevertebral soft tissue is normal in thickness. The bones are mildly osteopenic. Vertebral bodies are normal in height withoutevidence of acute fracture. Other than middle atlantoaxial joint osteoarthritis,the craniocervical junction appears normal. There is mild to moderate multilevel degenerative disc disease, most prominent at the levels of C3-C4. There is multilevel mild to moderate central canal stenosis, most prominent at the levels of C5-C6 and C6-7 C7 secondary to disc bulge and posterior osteophytes. There are varying degrees of mild to moderate multiple facet osteoarthritis. There are varying degrees of mild to moderate multilevel uncovertebral joint osteoarthritis with the samedegree of neural foraminal stenosis at these levels. IMPRESSION: 1. No acute intracranial process. 2. No evidence of acute fracture in the cervical spine. 3. Multiple chronic findings as detailed in the report. > Dictated by Balaji Browne MD (Industrial Sales Engineer), 12/23/2024 9:47 AM. I, Masha Alexandra MD have personally reviewed and interpreted this examination/study. > Interpreting Provider: Masha Alexandra MD on 12/23/2024 11:16 AM Yuval Krueger MD CT ORDERABLES * TROPONIN-I HIGH SENSITIVE BASELINE + 1HR (12/23/2024 9:06 AM CDT) [facility] Troponin I High Sensitive <3 <=14 ng/L 12/23/2024 10:05 AM [facility] Blood BLOOD SPECIMEN / Unknown Venipuncture / Unknown 12/23/2024 9:06 AM CDT 12/23/2024 9:27 AM CDT Yuval Kruegre MD LAB - CHEMISTRY SOTERO PATEL [facility] Organization Address City/State/ZIP Co de Phone Number [address] [address], [facility] [phone] * (ABNORMAL) CBC W AUTO DIFFERENTIAL (12/23/2024 9:06 AM CDT) [facility] WBC 4.9 4.0 - 10.7 x10E9/L 12/23/2024 10:06 AM [facility] RBC Count 4.26 3.90 - 5.20 x10E12/L 12/23/2024 10:06 AM [facility] Hemoglobin 13.2 11.9 - 15.8 g/dL 12/23/2024 10:06 AM [facility] Hematocrit 39.6 34.8 - 46.1 % 12/23/2024 10:06 AM [facility] MCV 93.0 80.0 - 98.0 fL 12/23/2024 10:06 AM [facility] MCH 31.0 26.7 - 33.6 pg 12/23/2024 10:06 AM [facility] MCHC 33.3 31.7 - 36.3 g/dL 12/23/2024 10:06 AM [facility] RDW-CV 13.3 11.3 - 14.8 % 12/23/2024 10:06 AM [facility] Platelet Count 12/23/2024 10:06 AM [facility] Comment:Platelets clumped on slide but appears adequate. Recommend repeat with a sodium citrate blue top tube. MPV 12/23/2024 10:06 AM [facility] Comment:Unable to report Neutrophil % 69.5 41.0 - 74.0 % 12/23/2024 10:06 AM [facility] Lymphocyte % 16.6(L) 17.0 - 47.0 % 12/23/2024 10:06 AM [facility] Monocyte % 10.1 3.0 - 11.0 % 12/23/2024 10:06 AM [facility] Eosinophil % 2.4 0.0 - 7.0 % 12/23/2024 10:06 AM [facility] Basophil % 1.0 0.0 - 1.6 % 12/23/2024 10:06 AM [facility] Immature Granulocytes % 0.4 0.0 - 1.0 % 12/23/2024 10:06 AM [facility] Neutrophil Absolute 3.43 1.60 - 7.50 x10E9/L 12/23/2024 10:06 AM [facility] Lymphocyte Absolute 0.82(L) 1.00 - 4.40 x10E9/L 12/23/2024 10:06 AM [facility] Monocyte Absolute 0.50 0.15 - 1.00 x10E9/L 12/23/2024 10:06 AM [facility] Eosinophil Absolute 0.12 0.00 - 0.60 x10E9/L 12/23/2024 10:06 AM [facility] Basophil Absolute 0.05 0.00 - 0.13 x10E9/L 12/23/2024 10:06 AM [facility] Blood BLOOD SPECIMEN / Unknown Venipuncture / Unknown 12/23/2024 9:06 AM CDT 12/23/2024 9:27 AM T Yuval Krueger MD LAB - HEMATOLOGY ORD ERABLES [facility] [address] [place] [address], [facility] [phone] * (ABNORMAL) COMPREHENSIVE METABOLIC PANEL (12/23/2024 9:06 AM T) BUN 9 7 - 26 mg/dL 12/23/2024 10:02 AM [facility] Creatinine 0.87 0.56 - 0.96 mg/dL 12/23/2024 10:02 AM [facility] Sodium 143 136 - 145 mmol/L 12/23/2024 10:02 AM [facility] Potassium 4.4 3.5 - 4.5 mmol/L 12/23/2024 10:02 AM [facility] Chloride 104 98 - 107 mmol/L 12/23/2024 10:02 AM [facility] CO2 31(H) 22 - 29 mmol/L 12/23/2024 10:02 AM [facility] Glucose 97 70 - 99 mg/dL 12/23/2024 10:02 AM [facility] Calcium 9.5 8.4 - 10.2 mg/dL 12/23/2024 10:02 AM [facility] Protein Total 6.7 6.0 - 8.3 g/dL 12/23/2024 10:02 AM [facility] Albumin 3.8 3.4 - 5.0 g/dL 12/23/2024 10:02 AM [facility] Bilirubin Total 0.4 0.2 - 1.2 mg/dL 12/23/2024 10:02 AM [facility] Alkaline Phosphatase 116 40 - 150 U/L 12/23/2024 10:02 AM [facility] ALT 30 5 - 55 U/L 12/23/2024 10:02 AM [facility] AST 32 5 - 34 U/L 12/23/2024 10:02 AM [facility] Anion Gap 8 6 - 16 12/23/2024 10:02 AM [facility] BUN/Creatinine Ratio 10 7 - 23 12/23/2024 10:02 AM [facility] Osmolality Calculated 295 275 - 295 mOsm/kg 12/23/2024 10:02 AM [facility] Albumin/Globulin Ratio 1.3 1.1 - 2.3 12/23/2024 10:02 AM [facility] eGFR by CKD-EPI 72(L) >=90 mL/min/1.7 3 m2 12/23/2024 10:02 AM [facility] Blood BLOOD SPECIMEN / Unknown Venipuncture / Unknown 12/23/2024 9:06 AM CDT 12/23/2024 9:27 AM CDT Yuval Krueger MD LAB - CHEMISTRY ORDMilady [facility] Performing Organization Address City/[facility]/ZIP Co de Phone Number [facility] [address] [place] [address], [facility] [phone] * EKG 12-LEAD (12/23/2024 9:05 AM CDT) Ventricular Rate 56 BPM [facility] MUSE Atrial Rate 56 BPM [facility] MUSE P-R Interval 176 ms [facility] MUSE QRS Duration ms 82 ms [facility] MUSE Q-T Interval ms 450 ms [facility] MUSE QTC Calculation (Bezet) 434 ms [facility] MUSE Calculated P Crawford 45 degrees [facility] MUSE Calculated R Crawford 9 degrees [facility] MUSE Calculated T Crawford 54 degrees [facility] MUSE Interpretation EKG SINUS BRADYCARDIA LOW VOLTAGE QRS BORDERLINE ECG NO PREVIOUS ECGS AVAILABLE Confirmed by HA RENDON MDSHORE ([id number]) on 12/25/2024 12:16:38 PM [facility] MUSE 12/23/2024 9:05 AM CDT 12/25/2024 12:16 PM CDT Yuval Krueger MD ECG ORDERABLES Performing Organization Address City/[facility]/ZIP Co de Phone Number [facility] MUSE * XR Tibia Fibula Left 2Vw (12/23/2024 9:00 AM CDT) Anatomical Region Laterality Modality Lower Extremity Digital Radiogra phy 12/23/2024 9:43 AM CDT Impressions 12/23/2024 11:06 AM CDT IMPRESSION: 1.No acute fracture of the femur, knee, tibia/fibula, left ankle. 2.Patellofemoral osteoarthritis. 3.The bones are mildly osteopenic. 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 This preliminary report was dictated by Pravin Terry MD (DR/IR Resident). I, Fang Varela MD have personally reviewed and interpreted this examination/study. > Interpreting Provider: Fang Varela MD on 12/23/2024 11:06 AM Narrative 12/23/2024 11:06 AM CDT PROCEDURE: XR FEMUR LEFT 2VW, XR TIBIA FIBULA LEFT 2VW, XR KNEE LEFT 2VW OR LESS, XR ANKLE LEFT 3VW OR MORE, DATE/TIME OF EXAM: 12/23/2024 8:58 AM, LOCATION [facility] INDICATION: W18.30XA: Ground-level fall ADDITIONAL CLINICAL INFORMATION: Ordering Provider Reason For Exam: Rule out fracture Technologist Note: Additional: COMPARISON: None. FINDINGS: LEFT FEMUR RADIOGRAPHS (AP, lateral): The femur is intact without acute fracture or dislocation. The bones are mildly diffusely demineralized. LEFT KNEE RADIOGRAPHS (AP, lateral): The osseous structures are intact and well aligned without acute fracture or dislocation. There are mild degenerative changes at the patellofemoral joint. No joint effusion is seen. The bones are mildly diffusely demineralized. LEFT TIBIA/FIBULA RADIOGRAPHS (AP, lateral): The tibia and fibula are intact without evidence of acute fracture. The bones are mildly diffusely demineralized. No soft tissue swelling is present. LEFT ANKLE RADIOGRAPHS (AP, oblique, lateral): The osseous structures are intact and well aligned without acute fracture or dislocation. The ankle mortise is intact. There is cystic change at the medial talar dome with slight irregularity of overlying articular cortex; this may represent an osteochondral lesion of the talar dome. The bones are mildly diffusely demineralized. No soft tissue swelling is present. Procedure Note Fang Varela MD - 12/23/2024 PROCEDURE: XR FEMUR LEFT 2VW, XR TIBIA FIBULA LEFT 2VW, XR KNEE [id number] OR LESS, XR ANKLE LEFT 3VW OR MORE, DATE/TIME OF EXAM: 12/23/2024 8:58AM, LOCATION [facility] INDICATION: W18.30XA: Ground-level fall ADDITIONAL CLINICAL INFORMATION: Ordering Provider Reason For Exam: Rule out fracture Technologist Note: Additional: COMPARISON: None. FINDINGS: LEFT FEMUR RADIOGRAPHS (AP, lateral): The femur is intact without acute fracture or dislocation. The bones are mildly diffusely demineralized. LEFT KNEE RADIOGRAPHS (AP, lateral): The osseous structures are intact and well aligned without acutefracture or dislocation. There are mild degenerative changes at thepatellofemoral joint. No joint effusion is seen. The bones are mildly diffusely demineralized. LEFT TIBIA/FIBULA RADIOGRAPHS (AP, lateral): The tibia and fibula are intact without evidence of acute fracture. The bones are mildly diffusely demineralized. No soft tissue swelling is present. LEFT ANKLE RADIOGRAPHS (AP, oblique, lateral): The osseous structures are intact and well aligned without acutefracture or dislocation. The ankle mortise is intact. There is cystic change atthe medial talar dome with slight irregularity of overlying articularcortex; this may represent an osteochondral lesion of the talar dome. The bonesare mildly diffusely demineralized. No soft tissue swelling is present. IMPRESSION: 1.No acute fracture of the femur, knee, tibia/fibula, left ankle. 2.Patellofemoral osteoarthritis. 3.The bones are mildly osteopenic. 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 This preliminary report was dictated by Pravin Terry MD (DR/IR Resident). I, Fang Varela MD have personally reviewed and interpreted this examination/study. > Interpreting Provider: Fang Varela MD on 12/23/2024 11:06 AM Yuval Krueger MD DIAGNOSTIC IMAGING O RDERABLES * XR Shoulder Left 2Vw or More (12/23/2024 9:00 AM CDT) Anatomical Region Laterality Modality Upper Extremity Digital Radiogra phy 12/23/2024 9:13 AM CDT Impressions 12/23/2024 9:24 AM CDT IMPRESSION: No acute fracture or dislocation identified. Tonia Gutierrez MD have personally reviewed and interpreted this examination/study. > Interpreting Provider: Tonia Diane MD on 12/23/2024 9:24 AM Narrative 12/23/2024 9:24 AM CDT PROCEDURE: XR SHOULDER LEFT 2VW OR MORE, DATE/TIME OF EXAM: 12/23/2024 9:00 AM, LOCATION [facility] INDICATION: W18.30XA: Ground-level fall ADDITIONAL CLINICAL INFORMATION: Ordering Provider Reason For Exam: Ground level fall Technologist Note: Additional: COMPARISON: None. FINDINGS: A chronic device with 2 leads overlie the left upper chest wall/axilla and obscures some detail. The osseous structures are intact without acute fracture. The glenohumeral and acromioclavicular joints are in anatomic alignment. The bones are diffusely demineralized. Procedure Note Tonia Diane MD - 12/23/2024 PROCEDURE: XR SHOULDER LEFT 2VW OR MORE, DATE/TIME OF EXAM: 12/23/2024 9:00 AM, LOCATION [facility] INDICATION: W18.30XA: Ground-level fall ADDITIONAL CLINICAL INFORMATION: Ordering Provider Reason For Exam: Ground level fall Technologist Note: Additional: COMPARISON: None. FINDINGS: A chronic device with 2 leads overlie the left upper chest wall/axillaand obscures some detail. The osseous structures are intact without acute fracture. Theglenohumeral and acromioclavicular joints are in anatomic alignment. The bones are diffusely demineralized. IMPRESSION: No acute fracture or dislocation identified. Tonia Gutierrez MD have personally reviewed and interpreted this examination/study. > Interpreting Provider: Tonia Diane MD on 12/23/2024 9:24 AM Yuval Krueger MD DIAGNOSTIC IMAGING O RDERABLES * XR Pelvis W Left Hip 2Vw (12/23/2024 9:00 AM CDT) Anatomical Region Laterality Modality Pelvis Digital Radiogra phy 12/23/2024 9:16 AM CDT Impressions 12/23/2024 9:28 AM CDT IMPRESSION: No acute osseous abnormality. Tonia Gutierrez MD have personally reviewed and interpreted this examination/study. > Interpreting Provider: Tonia Diane MD on 12/23/2024 9:28 AM Narrative 12/23/2024 9:28 AM CDT PROCEDURE: XR PELVIS W LEFT HIP 2VW, DATE/TIME OF EXAM: 12/23/2024 9:00 AM, LOCATION [facility] INDICATION: W18.30XA: Ground-level fall ADDITIONAL CLINICAL INFORMATION: Ordering Provider Reason For Exam: Rule out fracture Technologist Note: Additional: COMPARISON: None. FINDINGS: No acute fracture is identified. No joint effusion. No soft tissue swelling. The femoral heads appear well-seated within their respective acetabula. The pubic symphysis is intact. The bones appear demineralized. The sacroiliac joints are normal. Procedure Note Tonia Diane MD - 12/23/2024 PROCEDURE: XR PELVIS W LEFT HIP 2VW, DATE/TIME OF EXAM: 12/23/2024 9:00 AM, LOCATION [facility] INDICATION: W18.30XA: Ground-level fall ADDITIONAL CLINICAL INFORMATION: Ordering Provider Reason For Exam: Rule out fracture Technologist Note: Additional: COMPARISON: None. FINDINGS: No acute fracture is identified. No joint effusion. No soft tissue swelling. The femoral heads appear well-seated within their respective acetabula. The pubic symphysis is intact. The bones appeardemineralized. The sacroiliac joints are normal. IMPRESSION: No acute osseous abnormality. Tonia Gutierrez MD have personally reviewed and interpreted this examination/study. > Interpreting Provider: Tonia Diane MD on 12/23/2024 9:28 AM Yuval Krueger MD DIAGNOSTIC IMAGING O RDERABLES * XR Knee Left 2Vw or Less (12/23/2024 8:58 AM CDT) Anatomical Region Laterality Modality Lower Extremity Digital Radiogra phy 12/23/2024 9:43 AM CDT Impressions 12/23/2024 11:06 AM CDT IMPRESSION: 1.No acute fracture of the femur, knee, tibia/fibula, left ankle. 2.Patellofemoral osteoarthritis. 3.The bones are mildly osteopenic. 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 This preliminary report was dictated by Pravin Terry MD (DR/IR Resident). IFang MD have personally reviewed and interpreted this examination/study. > Interpreting Provider: Fang Varela MD on 12/23/2024 11:06 AM Narrative 12/23/2024 11:06 AM CDT PROCEDURE: XR FEMUR LEFT 2VW, XR TIBIA FIBULA LEFT 2VW, XR KNEE LEFT 2VW OR LESS, XR ANKLE LEFT 3VW OR MORE, DATE/TIME OF EXAM: 12/23/2024 8:58 AM, LOCATION [facility] INDICATION: W18.30XA: Ground-level fall ADDITIONAL CLINICAL INFORMATION: Ordering Provider Reason For Exam: Rule out fracture Technologist Note: Additional: COMPARISON: None. FINDINGS: LEFT FEMUR RADIOGRAPHS (AP, lateral): The femur is intact without acute fracture or dislocation. The bones are mildly diffusely demineralized. LEFT KNEE RADIOGRAPHS (AP, lateral): The osseous structures are intact and well aligned without acute fracture or dislocation. There are mild degenerative changes at the patellofemoral joint. No joint effusion is seen. The bones are mildly diffusely demineralized. LEFT TIBIA/FIBULA RADIOGRAPHS (AP, lateral): The tibia and fibula are intact without evidence of acute fracture. The bones are mildly diffusely demineralized. No soft tissue swelling is present. LEFT ANKLE RADIOGRAPHS (AP, oblique, lateral): The osseous structures are intact and well aligned without acute fracture or dislocation. The ankle mortise is intact. There is cystic change at the medial talar dome with slight irregularity of overlying articular cortex; this may represent an osteochondral lesion of the talar dome. The bones are mildly diffusely demineralized. No soft tissue swelling is present. Procedure Note Fang Varela MD - 12/23/2024 PROCEDURE: XR FEMUR LEFT 2VW, XR TIBIA FIBULA LEFT 2VW, XR KNEE [id number] OR LESS, XR ANKLE LEFT 3VW OR MORE, DATE/TIME OF EXAM: 12/23/2024 8:58AM, LOCATION [facility] INDICATION: W18.30XA: Ground-level fall ADDITIONAL CLINICAL INFORMATION: Ordering Provider Reason For Exam: Rule out fracture Technologist Note: Additional: COMPARISON: None. FINDINGS: LEFT FEMUR RADIOGRAPHS (AP, lateral): The femur is intact without acute fracture or dislocation. The bones are mildly diffusely demineralized. LEFT KNEE RADIOGRAPHS (AP, lateral): The osseous structures are intact and well aligned without acutefracture or dislocation. There are mild degenerative changes at thepatellofemoral joint. No joint effusion is seen. The bones are mildly diffusely demineralized. LEFT TIBIA/FIBULA RADIOGRAPHS (AP, lateral): The tibia and fibula are intact without evidence of acute fracture. The bones are mildly diffusely demineralized. No soft tissue swelling is present. LEFT ANKLE RADIOGRAPHS (AP, oblique, lateral): The osseous structures are intact and well aligned without acutefracture or dislocation. The ankle mortise is intact. There is cystic change atthe medial talar dome with slight irregularity of overlying articularcortex; this may represent an osteochondral lesion of the talar dome. The bonesare mildly diffusely demineralized. No soft tissue swelling is present. IMPRESSION: 1.No acute fracture of the femur, knee, tibia/fibula, left ankle. 2.Patellofemoral osteoarthritis. 3.The bones are mildly osteopenic. 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 This preliminary report was dictated by Pravin Terry MD (DR/IR Resident). I, Fang Varela MD have personally reviewed and interpreted this examination/study. > Interpreting Provider: Fang Varela MD on 12/23/2024 11:06 AM Yuval Krueger MD DIAGNOSTIC IMAGING O RDERABLES * XR Femur Left 2Vw (12/23/2024 8:58 AM CDT) Anatomical Region Laterality Modality Lower Extremity Digital Radiogra phy 12/23/2024 9:43 AM CDT Impressions 12/23/2024 11:06 AM CDT IMPRESSION: 1.No acute fracture of the femur, knee, tibia/fibula, left ankle. 2.Patellofemoral osteoarthritis. 3.The bones are mildly osteopenic. 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 This preliminary report was dictated by Pravin Terry MD (DR/IR Resident). IFang MD have personally reviewed and interpreted this examination/study. > Interpreting Provider: Fang Varela MD on 12/23/2024 11:06 AM Narrative 12/23/2024 11:06 AM CDT PROCEDURE: XR FEMUR LEFT 2VW, XR TIBIA FIBULA LEFT 2VW, XR KNEE LEFT 2VW OR LESS, XR ANKLE LEFT 3VW OR MORE, DATE/TIME OF EXAM: 12/23/2024 8:58 AM, LOCATION [facility] INDICATION: W18.30XA: Ground-level fall ADDITIONAL CLINICAL INFORMATION: Ordering Provider Reason For Exam: Rule out fracture Technologist Note: Additional: COMPARISON: None. FINDINGS: LEFT FEMUR RADIOGRAPHS (AP, lateral): The femur is intact without acute fracture or dislocation. The bones are mildly diffusely demineralized. LEFT KNEE RADIOGRAPHS (AP, lateral): The osseous structures are intact and well aligned without acute fracture or dislocation. There are mild degenerative changes at the patellofemoral joint. No joint effusion is seen. The bones are mildly diffusely demineralized. LEFT TIBIA/FIBULA RADIOGRAPHS (AP, lateral): The tibia and fibula are intact without evidence of acute fracture. The bones are mildly diffusely demineralized. No soft tissue swelling is present. LEFT ANKLE RADIOGRAPHS (AP, oblique, lateral): The osseous structures are intact and well aligned without acute fracture or dislocation. The ankle mortise is intact. There is cystic change at the medial talar dome with slight irregularity of overlying articular cortex; this may represent an osteochondral lesion of the talar dome. The bones are mildly diffusely demineralized. No soft tissue swelling is present. Procedure Note Fang Varela MD - 12/23/2024 PROCEDURE: XR FEMUR LEFT 2VW, XR TIBIA FIBULA LEFT 2VW, XR KNEE [id number] OR LESS, XR ANKLE LEFT 3VW OR MORE, DATE/TIME OF EXAM: 12/23/2024 8:58AM, LOCATION [facility] INDICATION: W18.30XA: Ground-level fall ADDITIONAL CLINICAL INFORMATION: Ordering Provider Reason For Exam: Rule out fracture Technologist Note: Additional: COMPARISON: None. FINDINGS: LEFT FEMUR RADIOGRAPHS (AP, lateral): The femur is intact without acute fracture or dislocation. The bones are mildly diffusely demineralized. LEFT KNEE RADIOGRAPHS (AP, lateral): The osseous structures are intact and well aligned without acutefracture or dislocation. There are mild degenerative changes at thepatellofemoral joint. No joint effusion is seen. The bones are mildly diffusely demineralized. LEFT TIBIA/FIBULA RADIOGRAPHS (AP, lateral): The tibia and fibula are intact without evidence of acute fracture. The bones are mildly diffusely demineralized. No soft tissue swelling is present. LEFT ANKLE RADIOGRAPHS (AP, oblique, lateral): The osseous structures are intact and well aligned without acutefracture or dislocation. The ankle mortise is intact. There is cystic change atthe medial talar dome with slight irregularity of overlying articularcortex; this may represent an osteochondral lesion of the talar dome. The bonesare mildly diffusely demineralized. No soft tissue swelling is present. IMPRESSION: 1.No acute fracture of the femur, knee, tibia/fibula, left ankle. 2.Patellofemoral osteoarthritis. 3.The bones are mildly osteopenic. 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 This preliminary report was dictated by Pravin Terry MD (DR/IR Resident). I, Fang Varela MD have personally reviewed and interpreted this examination/study. > Interpreting Provider: Fang Varela MD on 12/23/2024 11:06 AM Yuval Krueger MD DIAGNOSTIC IMAGING O RDERABLES * XR CHEST 2VW (12/23/2024 8:58 AM CDT) Anatomical Region Laterality Modality Chest Digital Radiogra phy 12/23/2024 9:06 AM CDT Narrative 12/23/2024 10:01 AM CDT PROCEDURE: XR CHEST 2VW, DATE/TIME OF EXAM: 12/23/2024 8:58 AM, LOCATION [facility] INDICATION: W18.30XA: Ground-level fall ADDITIONAL CLINICAL INFORMATION: Ordering Provider Reason For Exam: Status post fall Technologist Note: Additional: COMPARISON: Chest radiograph 08/29/2022 TECHNIQUE: Upright PA and lateral radiographs of the chest are obtained. FINDINGS/IMPRESSION: Hardware, tubes, lines, miscellaneous: *The power pack of a deep brain stimulator overlies the left hemithorax with wires extending cephalad on either side of the neck. The pulmonary vasculature appears normal. There is no focal consolidation, pleural effusion, or pneumothorax. The cardiomediastinal silhouette is normal. The visible bony thorax is intact. This preliminary report was dictated by Pravin Terry MD (/IR Resident). Fang Gutierrez MD have personally reviewed and interpreted this examination/study. > Interpreting Provider: Fang Varela MD on 12/23/2024 10:01 AM Procedure Note Fang Varela MD - 12/23/2024 PROCEDURE: XR CHEST 2VW, DATE/TIME OF EXAM: 12/23/2024 8:58 AM, LOCATION [facility] INDICATION: W18.30XA: Ground-level fall ADDITIONAL CLINICAL INFORMATION: Ordering Provider Reason For Exam: Status post fall Technologist Note: Additional: COMPARISON: Chest radiograph 08/29/2022 TECHNIQUE: Upright PA and lateral radiographs of the chest are obtained. FINDINGS/IMPRESSION: Hardware, tubes, lines, miscellaneous: *The power pack of a deep brain stimulator overlies the left hemithorax with wires extending cephalad on either side of the neck. The pulmonary vasculature appears normal. There is no focalconsolidation, pleural effusion, or pneumothorax. The cardiomediastinal silhouette is normal. The visible bony thorax is intact. This preliminary report was dictated by Pravin Terry MD (/IR Resident). Fang Gutierrez MD have personally reviewed and interpreted this examination/study. > Interpreting Provider: Fang Varela MD on 12/23/2024 10:01 AM Yuval Krueger MD DIAGNOSTIC IMAGING O RDERABLES * XR Ankle Left 3Vw or More (12/23/2024 8:58 AM CDT) Anatomical Region Laterality Modality Lower Extremity Digital Radiogra phy 12/23/2024 9:43 AM CDT Impressions 12/23/2024 11:06 AM CDT IMPRESSION: 1.No acute fracture of the femur, knee, tibia/fibula, left ankle. 2.Patellofemoral osteoarthritis. 3.The bones are mildly osteopenic. 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 This preliminary report was dictated by Pravin Terry MD (DR/IR Resident). IFang MD have personally reviewed and interpreted this examination/study. > Interpreting Provider: Fang Varela MD on 12/23/2024 11:06 AM Narrative 12/23/2024 11:06 AM CDT PROCEDURE: XR FEMUR LEFT 2VW, XR TIBIA FIBULA LEFT 2VW, XR KNEE LEFT 2VW OR LESS, XR ANKLE LEFT 3VW OR MORE, DATE/TIME OF EXAM: 12/23/2024 8:58 AM, LOCATION [facility] INDICATION: W18.30XA: Ground-level fall ADDITIONAL CLINICAL INFORMATION: Ordering Provider Reason For Exam: Rule out fracture Technologist Note: Additional: COMPARISON: None. FINDINGS: LEFT FEMUR RADIOGRAPHS (AP, lateral): The femur is intact without acute fracture or dislocation. The bones are mildly diffusely demineralized. LEFT KNEE RADIOGRAPHS (AP, lateral): The osseous structures are intact and well aligned without acute fracture or dislocation. There are mild degenerative changes at the patellofemoral joint. No joint effusion is seen. The bones are mildly diffusely demineralized. LEFT TIBIA/FIBULA RADIOGRAPHS (AP, lateral): The tibia and fibula are intact without evidence of acute fracture. The bones are mildly diffusely demineralized. No soft tissue swelling is present. LEFT ANKLE RADIOGRAPHS (AP, oblique, lateral): The osseous structures are intact and well aligned without acute fracture or dislocation. The ankle mortise is intact. There is cystic change at the medial talar dome with slight irregularity of overlying articular cortex; this may represent an osteochondral lesion of the talar dome. The bones are mildly diffusely demineralized. No soft tissue swelling is present. Procedure Note Fang Varela MD - 12/23/2024 PROCEDURE: XR FEMUR LEFT 2VW, XR TIBIA FIBULA LEFT 2VW, XR KNEE SKNE1DL OR LESS, XR ANKLE LEFT 3VW OR MORE, DATE/TIME OF EXAM: 12/23/2024 8:58AM, LOCATION [facility] INDICATION: W18.30XA: Ground-level fall ADDITIONAL CLINICAL INFORMATION: Ordering Provider Reason For Exam: Rule out fracture Technologist Note: Additional: COMPARISON: None. FINDINGS: LEFT FEMUR RADIOGRAPHS (AP, lateral): The femur is intact without acute fracture or dislocation. The bones are mildly diffusely demineralized. LEFT KNEE RADIOGRAPHS (AP, lateral): The osseous structures are intact and well aligned without acutefracture or dislocation. There are mild degenerative changes at thepatellofemoral joint. No joint effusion is seen. The bones are mildly diffusely demineralized. LEFT TIBIA/FIBULA RADIOGRAPHS (AP, lateral): The tibia and fibula are intact without evidence of acute fracture. The bones are mildly diffusely demineralized. No soft tissue swelling is present. LEFT ANKLE RADIOGRAPHS (AP, oblique, lateral): The osseous structures are intact and well aligned without acutefracture or dislocation. The ankle mortise is intact. There is cystic change atthe medial talar dome with slight irregularity of overlying articularcortex; this may represent an osteochondral lesion of the talar dome. The bonesare mildly diffusely demineralized. No soft tissue swelling is present. IMPRESSION: 1.No acute fracture of the femur, knee, tibia/fibula, left ankle. 2.Patellofemoral osteoarthritis. 3.The bones are mildly osteopenic. 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 This preliminary report was dictated by Pravin Terry MD (DR/IR Resident). I, Fang Varela MD have personally reviewed and interpreted this examination/study. > Interpreting Provider: Fang Varela MD on 12/23/2024 11:06 AM Yuval Krueger MD DIAGNOSTIC IMAGING O RDERABLES * FL Myelogram 2 or More Regions (12/08/2024 10:27 AM ORAL HYGIENIST) Anatomical Region Laterality Modality Spine Digital Radiogra phy 12/08/2024 1:17 PM ORAL HYGIENIST Impressions 12/13/2024 12:15 PM ORAL HYGIENIST IMPRESSION: 1.Successful lumbar puncture for cervical and [...] degenerative disc and joint disease as detailed dowxi-fl-ujnsz above, worse at L4-L5, as outlined. 2.Transitional anatomy as noted above. The report is dictated by Addi Arambula MD, (resident physician in radiology) Attending Physician: Dr. Magdalena Blackmon School Age Lead Teacher: Dr. Addi Arambula MD, (resident physician in radiology) The procedure was performed by the: The plastic surgery assistant, and the attending radiologist was present [...] 12/13/2024 12:15 PM Narrative 12/13/2024 12:15 PM ORAL HYGIENIST PROCEDURE: FL MYELOGRAM 2 OR MORE REGIONS, CT LUMBAR POST MYELOGRAM, CT CERVICAL POST MYELOGRAM DATE/TIME OF EXAM: 12/08/2024 10:34 AM CLINICAL INFORMATION: PROCEDURE: FL MYELOGRAM 2 OR MORE REGIONS, CT LUMBAR POST MYELOGRAM, CT CERVICAL POST MYELOGRAM, DATE/TIME OF EXAM: 12/08/2024 10:34 AM, LOCATION [facility] INDICATION: M54.50: Lumbar spine pain ADDITIONAL CLINICAL INFORMATION: Ordering Provider Reason For Exam: myelopathy (accession [id number]), chronic low back pain (accession [id number]) Technologist Note: None. Additional: None. EXAMINATION: 1.Lumbar [...] The patient was then transferred to the career technical education teacher unit for further observation and 2 hours [...] no high-grade central canal stenosis. There is qdaq-zn-uvlvseqf facet osteoarthritis. There is mild bilateral neural foraminal stenosis. Procedure Note Magdalena Blackmon MD - 12/13/2024 PROCEDURE: FL MYELOGRAM 2 OR MORE REGIONS, CT LUMBAR POST MYELOGRAM, CT CERVICAL POST MYELOGRAM DATE/TIME OF EXAM: 12/08/2024 10:34 AM CLINICAL INFORMATION: PROCEDURE: FL MYELOGRAM 2 OR MORE REGIONS, CTLUMBAR POST MYELOGRAM, CT CERVICAL POST MYELOGRAM, DATE/TIME OF EXAM:12/08/2024 10:34 AM, LOCATION [facility] INDICATION: M54.50: Lumbar spine pain ADDITIONAL CLINICAL INFORMATION: Ordering Provider Reason For Exam: myelopathy (accession [id number]), chronic low back pain (accession [id number]) Technologist Note: None. Additional: None. EXAMINATION: 1.Lumbar [...] well. The patient wasthen transferred to the career technical education teacher unit for further observation and 2hours of [...] island in the right aspect of the I0xtugdanpt body. Vertebral bodies are normal in height [...] is no high-grade central canal stenosis. Thereis wxoo-ap-cslrxwqs facet osteoarthritis. There is mild bilateral neural [...] 1.Multilevel degenerative disc and joint disease as wvybfildejtcn-gu-xxqxx above, worse at L4-L5, as outlined. 2.Transitional anatomy as noted above. The report is dictated by Addi Arambula MD, (resident physician in radiology) Attending Physician: Dr. Magdalena Blackmon School Age Lead Teacher: Dr. Addi Arambula MD, (resident physician in radiology) The procedure was performed by the: The plastic surgery assistant, and the attending radiologist was present for allcritical and mariscal portions of the procedure, and [facility] during the entire procedure. The attending radiologist performed the following procedural activities: Dr. Magdalena Gutierrez was there and supervised mariscal portions of the procedure, not scrubbed. Magdalena Gutierrez MD have personally reviewed and interpretedthis examination/study. > Interpreting Provider: Magdalena Blackmon MD on 12/13/2024 12:15 PM Cornelio Lima MD FLUOROSCOPY OR DERABLES * CT Lumbar Post Myelogram (12/08/2024 10:25 AM ORAL HYGIENIST) Anatomical Region Laterality Modality Spine Computed Tomogra phy 12/08/2024 1:17 PM ORAL HYGIENIST Impressions 12/13/2024 12:15 PM ORAL HYGIENIST IMPRESSION: 1.Successful lumbar puncture for cervical and [...] degenerative disc and joint disease as detailed ijcvr-ae-ohbrt above, worse at L4-L5, as outlined. 2.Transitional anatomy as noted above. The report is dictated by Addi Arambula MD, (resident physician in radiology) Attending Physician: Dr. Magdalena Blackmon School Age Lead Teacher: Dr. Addi Arambula MD, (resident physician in radiology) The procedure was performed by the: The plastic surgery assistant, and the attending radiologist was present [...] 12/13/2024 12:15 PM Narrative 12/13/2024 12:15 PM ORAL HYGIENIST PROCEDURE: FL MYELOGRAM 2 OR MORE REGIONS, CT LUMBAR POST MYELOGRAM, CT CERVICAL POST MYELOGRAM DATE/TIME OF EXAM: 12/08/2024 10:34 AM CLINICAL INFORMATION: PROCEDURE: FL MYELOGRAM 2 OR MORE REGIONS, CT LUMBAR POST MYELOGRAM, CT CERVICAL POST MYELOGRAM, DATE/TIME OF EXAM: 12/08/2024 10:34 AM, LOCATION [facility] INDICATION: M54.50: Lumbar spine pain ADDITIONAL CLINICAL INFORMATION: Ordering Provider Reason For Exam: myelopathy (accession [id number]), chronic low back pain (accession [id number]) Technologist Note: None. Additional: None. EXAMINATION: 1.Lumbar [...] The patient was then transferred to the career technical education teacher unit for further observation and 2 hours [...] no high-grade central canal stenosis. There is fwbt-tv-wvrvtxcc facet osteoarthritis. There is mild bilateral neural foraminal stenosis. Procedure Note Magdalena Blackmon MD - 12/13/2024 PROCEDURE: FL MYELOGRAM 2 OR MORE REGIONS, CT LUMBAR POST MYELOGRAM, CT CERVICAL POST MYELOGRAM DATE/TIME OF EXAM: 12/08/2024 10:34 AM CLINICAL INFORMATION: PROCEDURE: FL MYELOGRAM 2 OR MORE REGIONS, CTLUMBAR POST MYELOGRAM, CT CERVICAL POST MYELOGRAM, DATE/TIME OF EXAM:12/08/2024 10:34 AM, LOCATION [facility] INDICATION: M54.50: Lumbar spine pain ADDITIONAL CLINICAL INFORMATION: Ordering Provider Reason For Exam: myelopathy (accession [id number]), chronic low back pain (accession [id number]) Technologist Note: None. Additional: None. EXAMINATION: 1.Lumbar [...] well. The patient wasthen transferred to the career technical education teacher unit for further observation and 2hours of [...] island in the right aspect of the U1mwhuupomg body. Vertebral bodies are normal in height [...] is no high-grade central canal stenosis. Thereis glau-pt-ezdflubw facet osteoarthritis. There is mild bilateral neural [...] 1.Multilevel degenerative disc and joint disease as dfvtsjpmrpwqd-dh-ttqfo above, worse at L4-L5, as outlined. 2.Transitional anatomy as noted above. The report is dictated by Addi Arambula MD, (resident physician in radiology) Attending Physician: Dr. Magdalena Blackmon School Age Lead Teacher: Dr. Addi Arambula MD, (resident physician in radiology) The procedure was performed by the: The plastic surgery assistant, and the attending radiologist was present [...] CT Cervical Post Myelogram (12/08/2024 10:25 AM ORAL HYGIENIST) Anatomical Region Laterality Modality Spine Computed Tomogra phy 12/08/2024 1:17 PM ORAL HYGIENIST Impressions 12/13/2024 12:15 PM ORAL HYGIENIST IMPRESSION: 1.Successful lumbar puncture for cervical and [...] degenerative disc and joint disease as detailed silru-wl-woaew above, worse at L4-L5, as outlined. 2.Transitional anatomy as noted above. The report is dictated by Addi Arambula MD, (resident physician in radiology) Attending Physician: Dr. Magdalena Blackmon School Age Lead Teacher: Dr. Addi Arambula MD, (resident physician in radiology) The procedure was performed by the: The plastic surgery assistant, and the attending radiologist was present [...] 12/13/2024 12:15 PM Narrative 12/13/2024 12:15 PM ORAL HYGIENIST PROCEDURE: FL MYELOGRAM 2 OR MORE REGIONS, CT LUMBAR POST MYELOGRAM, CT CERVICAL POST MYELOGRAM DATE/TIME OF EXAM: 12/08/2024 10:34 AM CLINICAL INFORMATION: PROCEDURE: FL MYELOGRAM 2 OR MORE REGIONS, CT LUMBAR POST MYELOGRAM, CT CERVICAL POST MYELOGRAM, DATE/TIME OF EXAM: 12/08/2024 10:34 AM, LOCATION [facility] INDICATION: M54.50: Lumbar spine pain ADDITIONAL CLINICAL INFORMATION: Ordering Provider Reason For Exam: myelopathy (accession [id number]), chronic low back pain (accession [id number]) Technologist Note: None. Additional: None. EXAMINATION: 1.Lumbar [...] The patient was then transferred to the career technical education teacher unit for further observation and 2 hours [...] no high-grade central canal stenosis. There is ngpj-hv-tvuumqgt facet osteoarthritis. There is mild bilateral neural foraminal stenosis. Procedure Note Magdalena Blackmon MD - 12/13/2024 PROCEDURE: FL MYELOGRAM 2 OR MORE REGIONS, CT LUMBAR POST MYELOGRAM, CT CERVICAL POST MYELOGRAM DATE/TIME OF EXAM: 12/08/2024 10:34 AM CLINICAL INFORMATION: PROCEDURE: FL MYELOGRAM 2 OR MORE REGIONS, CTLUMBAR POST MYELOGRAM, CT CERVICAL POST MYELOGRAM, DATE/TIME OF EXAM:12/08/2024 10:34 AM, LOCATION [facility] INDICATION: M54.50: Lumbar spine pain ADDITIONAL CLINICAL INFORMATION: Ordering Provider Reason For Exam: myelopathy (accession [id number]), chronic low back pain (accession [id number]) Technologist Note: None. Additional: None. EXAMINATION: 1.Lumbar [...] well. The patient wasthen transferred to the career technical education teacher unit for further observation and 2hours of [...] island in the right aspect of the N5kdqzgkped body. Vertebral bodies are normal in height [...] is no high-grade central canal stenosis. Thereis gklb-ip-cuusxfaf facet osteoarthritis. There is mild bilateral neural [...] 1.Multilevel degenerative disc and joint disease as fsjsmbdhmyvkb-yr-setpg above, worse at L4-L5, as outlined. 2.Transitional anatomy as noted above. The report is dictated by Addi Arambula MD, (resident physician in radiology) Attending Physician: Dr. Magdalena Blackmon School Age Lead Teacher: Dr. Addi Arambula MD, (resident physician in radiology) The procedure was performed by the: The plastic surgery assistant, and the attending radiologist was present for allcritical and mariscal portions of the procedure, and was immediately [facility] during the entire procedure. The attending radiologist performed the following procedural activities: IDr. Magdalena was there and supervised mariscal portions of the procedure, not scrubbed. IMagdalena MD have personally reviewed and interpretedthis examination/study. > Interpreting Provider: Magdalena Blackmon MD on 12/13/2024 12:15 PM Cornelio Lima MD CT ORDERABLES * XR Spine Entire 2 or 3Vw (11/23/2024 11:09 AM ORAL HYGIENIST) Anatomical Region Laterality Modality Spine Radiographic Erna ging 11/23/2024 11:3 1 AM ORAL HYGIENIST Impressions 11/23/2024 11:34 AM ORAL HYGIENIST IMPRESSION: Mild scoliosis. > Interpreting Provider: Baljinder Henson MD on 11/23/2024 11:34 AM Narrative 11/23/2024 11:34 AM ORAL HYGIENIST PROCEDURE: XR SPINE ENTIRE 2 OR 3VW [...] 10 degrees, a lower thoracic levo curve [id number] degrees, and a lumbar dextro curve measuring [...] Spine 2 or 3Vw (11/23/2024 11:06 AM ORAL HYGIENIST) Anatomical Region Laterality Modality Spine Radiographic Erna ging 11/23/2024 11:2 9 AM ORAL HYGIENIST Impressions 11/23/2024 11:31 AM ORAL HYGIENIST IMPRESSION: Moderate cervical spondylosis. > Interpreting Provider: Baljinder Henson MD on 11/23/2024 11:31 AM Narrative 11/23/2024 11:31 AM ORAL HYGIENIST PROCEDURE: XR CERVICAL SPINE 2 OR 3VW [...] Spine 2 or 3Vw (11/23/2024 10:00 AM ORAL HYGIENIST) Anatomical Region Laterality Modality Spine Computed Radiogr aphy 11/23/2024 10:3 8 AM ORAL HYGIENIST Impressions 11/23/2024 10:39 AM ORAL HYGIENIST IMPRESSION: Mild to moderate degenerative changes. > Interpreting Provider: Baljinder Henson MD on 11/23/2024 10:39 AM Narrative 11/23/2024 10:39 AM ORAL HYGIENIST PROCEDURE: XR LUMBAR SPINE 2 OR 3VW [...] ORDERABLES * PATHOLOGY TISSUE (11/11/2024 10:16 AM ORAL HYGIENIST) Case Report Surgical Pathology Report Case: [id number] Authorizing Provider: Sixto Cornell MD Collected: 11/11/2024 10:16 AM Ordering Location: [facility] ENDOSCOPY Received: 11/11/2024 10:58 AM Pathologist: Kenyatta Norris MD Specimens: A) - Polyp Ascending, ascending colon polyp B) - Polyp Descending, descending colon polyps 11/14/2024 3:[address] [facility] Final Diagnosis Large intestine, ascending colon polyp, biopsy (A): - Tubular adenoma Large intestine, descending colon polyps, biopsy (B): - Tubular adenoma(s), fragmented 11/14/2024 3:[address] [facility] Microscopic Description and Comment Microscopic examination substantiates the final diagnosis. 11/14/2024 3:[address] [facility] Clinical History The patient is a 69-year-old woman who presents for high risk colon cancer surveillance (personal history of colonic polyps). Operative procedure/findings: Colonoscopy - 2 mm ascending colon polyp, 4 and 5 mm descending colon polyps, resected and retrieved 11/14/2024 3:20 PM ORAL HYGIENIST [facility] PATHOLOGY [facility] Gross Description The requisition and [...] cassette labeled B1. RB 11/14/2024 3:[address] [facility] Pathologist Location at [facility] 11/14/2024 3:[address] [facility] Disclaimer The performance characteristics of all immunohistochemical and indirect immunofluorescence stains (if any) cited in this report were determined by the Histopathology Laboratory of [facility]. Some of these tests [...] the attending (teaching) pathologist. 11/14/2024 3:[address] [facility] Embedded Images 11/14/2024 3:[address] [facility] Biopsy, NOS POLYP / Unknown 11/11/2024 1 0:16 AM ORAL HYGIENIST 11/11/2024 10:58 AM ORAL HYGIENIST Comment:Pre-op diagnosis: Screen for colon cancer [Z12.11] Biopsy, NOS POLYP / Unknown 11/11/2024 1 0:19 AM ORAL HYGIENIST 11/11/2024 10:58 AM ORAL HYGIENIST Comment:Pre-op diagnosis: Screen for colon cancer [Z12.11] Sixto Cornell MD LAB - PATHOLOGY/CYTO LOGY ORDERABLES Performing Organization Address City/State/[facility] de Phone Number [facility] PATHOLOG[facility] [address] [phone] * ENDOSCOPY, COLON, SCREENING (11/11/2024 9:52 AM ORAL HYGIENIST) Report Endoscopy POC Endoscopy Department Report _ [...] bowel preparation was evaluated using the BBPS (O'Brien Bowel Preparation Scale) with scores of: Right [...] non-mariscal portions. Procedure Code(s): --- Professional --- 91026, Colonoscopy, flexible; with removal of tumor(s), polyp(s), or other lesion(s) by snare technique 21170, 59, Colonoscopy, flexible; with biopsy, single or multiple Diagnosis Code(s): --- Professional --- Z86.010, Personal history of colonic polyps D12.2, Benign neoplasm of ascending colon D12.4, Benign neoplasm of descending colon K57.30, Diverticulosis of large intestine without perforation or abscess without bleeding CPT copyright 2021 [employer]. All rights reserved. The codes documented in this report are preliminary and upon wood dowel machine operator review may be revised to meet current compliance requirements. Sixto Cornell MD 11/11/2024 10:36:45 AM This report has been signed electronically. Note Initiated On: 11/11/2024 9:52 AM Number of Addenda: [address] [address] [facility] 11/11/2024 9:52 AM ORAL HYGIENIST Sixto Cornell MD GI PROCEDURE ORDERAB LES Performing Organization Address City/[facility] Co de Phone Number [facility] PROVATION * GLUCOSE - POINT OF CARE (11/11/2024 9:19 AM ORAL HYGIENIST) Pathologist [facility] Glucose WB/POC 99 70 - 99 mg/dL 11/11/2024 9:54 AM ORAL HYGIENIST [facility] Specimen Type Venous 11/11/2024 9:54 AM ORAL HYGIENIST [facility] Blood BLOOD SPECIMEN / Unknown 11/11/2024 9:19 AM ORAL HYGIENIST 11/11/2024 9:54 AM ORAL HYGIENIST Sixto Cornell MD LAB - POINT OF CARE ORDERABLES Performing Organization Address [facility] de Phone Number [address] [phone], [facility] [phone] * CALPROTECTIN FECAL (11/07/2024 3:52 PM ORAL HYGIENIST) Pathologist [facility] Calprotectin Fecal 69 mcg/g [facility] Comment: Reference [...] suggested for borderline values. Test Performed at: [facility] [address] [place], [place] [phone] JARRELL CALDERON MD,PHD,EDGARDO Stool STOOL SPECIMEN / Unknown 11/07/2024 3:52 PM ORAL HYGIENIST 11/08/2024 4:47 AM ORAL HYGIENIST Yolanda Greer MANAGER ENVIRONMENTAL HEALTH AND SAFETY-INCENDIARY POWDER MIXER LAB - [place]RISTINA DY FLUID ORDERABLES Performing Organization Address [facility] Co de Phone Number [address] [address] * CULTURE STOOL PANEL (11/07/2024 3:52 PM ORAL HYGIENIST) Campylobacter Antigen [facility] Comment: CAMPYLOBACTER SPP. AG,EIA Micro Number: [id number] Test Status: Final Specimen Source: Stool Specimen Quality: Adequate Campy Ag Result: Not Detected Reference Range: Not Detected EIA [facility] Comment: SHIGA TOXINS, EIA W/RFL TO E.COLI O157 CULTURE Micro Number: [id number] Test Status: Final Specimen Source: Stool Specimen Quality: Adequate Shiga Toxin: Not Detected Reference Range: Not Detected Culture [facility] Comment: SALMONELLA AND SHIGELLA, CULTURE Micro Number: [id number] Test Status: Final Specimen Source: Stool Specimen Quality: Adequate Result: No Salmonella or Shigella isolated Test Performed at: [facility] [address] SAROJ FAUSTIN MD Stool STOOL SPECIMEN / Unknown 11/07/2024 3:52 PM ORAL HYGIENIST 11/07/2024 11:51 PM ORAL HYGIENIST Yolanda Greer MANAGER ENVIRONMENTAL HEALTH AND SAFETY-INCENDIARY POWDER MIXER LAB - [place] CROBIOLOGY ORDERABLES Performing Organization Address [facility] Co de Phone Number [address] [address] * C DIFFICILE CYTOTOXIN (11/07/2024 3:51 PM ORAL HYGIENIST) Cytotoxin Assay Stool NOT DETECTED [facility] Comment: [...] (GDH) with Reflex to PCR, order code 71760 or Clostridium difficile toxin B, Qualitative real time PCR, test code 33346 to be more sensitive and timely methods for the diagnosis of C. difficile colitis. For additional information, please refer to http://education.ION Signature/faq/TXU352 (This link is being provided for informational/ educational purposes only.) Test Performed at: [facility] [address] [place] [address] JARRELL CALDERON MD,PHD,EDGARDO Stool STOOL SPECIMEN / Unknown 11/07/2024 3:51 PM ORAL HYGIENIST 11/08/2024 4:58 AM ORAL HYGIENIST Yolanda Greer MANAGER ENVIRONMENTAL HEALTH AND SAFETY-INCENDIARY POWDER MIXER LAB - [place] CROBIOLOGY ORDERABLES Performing Organization Address City/[facility]/ZIP Co de Phone Number [facility] [address] [place] [address] * PROC DEEP BRAIN STIMULATOR (11/03/2024 2:08 PM ORAL HYGIENIST) Narrative Moncho Salcedo APRN-INCENDIARY POWDER MIXER - 11/03/2024 2:08 PM ORAL HYGIENIST Moncho Salcedo APRN-INCENDIARY POWDER MIXER 11/03/2024 4:00 PM Please see office notes for documentation- Thanks Moncho Salcedo MANAGER ENVIRONMENTAL HEALTH AND SAFETY-INCENDIARY POWDER MIXER PROCEDURE/MINOR SURGICAL ORDERABLES * HEMOGLOBIN A1C - POINT OF CARE (AMB) [facility] (04/04/2024 11:34 AM CDT) Hemoglobin A1c POCT 5.4 % [address] BLOOD SPECIMEN / Unknown 04/04/2024 11:34 AM CDT Kerry Coffman DO LAB - POINT OF CARE ORDERABLES Performing Organization Address [facility] Co de Phone Number [address], [place] [address], [facility] [phone] * MICROALB/CREAT RATIO URINE RANDOM PANEL (02/05/2023 [...] within a diagnostic category. Test Performed at: [facility] [place] [address] [place] [address] SAROJ FAUSTIN MD 02/05/2023 12:2 6 PM CDT 02/05/2023 12:27 PM CDT Marquise Adames MD LAB - URINE CHEMISTR Y ORDERABLES [facility] [address] [place] [address] from Last 3 Months or Most Recently Relevant to Health Maintenance Advance Directives * Full Code (Latest Code Status on File) Date Activated Date Inactivated Comments 08/29/2022 4:40 PM 08/31/2022 1:59 PM * Full Code Date Activated Date Inactivated Comments 03/17/2022 3:37 PM 03/19/2022 1:47 PM Care Teams Clinical Documentation Improvement Specialist Relationship Specialty Start Date End Date Kerry Coffman DO [address] OF [facility] [place] [address] PCP - General Internal Medicine 12/15/23 Kerry Coffman DO [address] OF [facility] [place] [address] PCP - [facility] P4P 12/10/24
--- OUTSIDE RECORDS SUMMARY | 2025-01-03 13:59 | XMS_ITS | Referral Summary ---
Author Organization [facility] Address [address] [place] [phone] Care Team Providers Care Rooming House Keeper Name Role Phone Kerry Coffman DO Primary Care Provider Encounters Date Type Department Care Team Description 11/21/2024 1:50 PM COOK CHEF - 11/21/2024 11:59 PM COOK CHEF Hospital Encounter [facility] Radiology at [facility] [address] [place] [phone] Discharge Disposition: Discharge to home or self care 11/21/2024 1:20 PM COOK CHEF Office Visit [facility] Rheumatology [address] [facility] 2nd Floor [address] [place] [phone] Marialuisa Franklin, SAMI Rheumatoid arthritis with negative rheumatoid factor, involving unspecified site (HCC) (Primary Dx); High risk medication use 11/15/2024 10:40 AM COOK CHEF - 11/15/2024 11:59 PM COOK CHEF Hospital Encounter [address] [address] High risk medication use Discharge Disposition: Discharge to home or self care 11/15/2024 10:30 AM COOK CHEF Infusion [facility] Infusion Therapy [address] [facility] 2nd Floor [address] [place] [phone] Rheumatoid arthritis with negative rheumatoid factor, involving unspecified site (HCC) (Primary Dx) 10/18/2024 10:30 AM COOK CHEF Infusion [facility] Infusion Therapy [address] [facility] 2nd Floor [address] [place] [phone] Rheumatoid arthritis with negative rheumatoid factor, involving [...] 1 tablet (2 mg total) by mouth ramp manager before breakfast 4 Active azelastine (ASTELIN) [...] on file Legal Sex Female 10:45 PM COOK CHEF Gender Identity Not on file Sexual Orientation Not on file Last Filed Vital Signs Vital Sign Reading Time Taken Comments Blood Pressure 93/58 11/21/2024 1:01 PM COOK CHEF Pulse 63 11/21/2024 1:01 PM COOK CHEF Temperature 36.6 C (97.8 F) 11/21/2024 1:01 PM COOK CHEF Respiratory Rate - - Oxygen Saturation 99% 11/21/2024 1:01 PM COOK CHEF Inhaled Oxygen Concentration - - Weight 68 kg (150 lb) 11/21/2024 1:01 PM COOK CHEF Height 167.6 cm (5' 5.98 ) 11/21/2024 1:01 PM CS T Body Mass Index 24.22 11/21/2024 1:01 PM COOK CHEF Plan of Treatment Not on file Procedures Procedure Name Priority Date/Time Associated Diagnosis Comments XR HAND RIGHT 3 OR MORE VIEWS Schedule Routine, Read Routine (OP Routine) 11/21/2024 2:04 PM COOK CHEF Rheumatoid arthritis with negative rheumatoid factor, involving unspecified site (HCC) XR HAND LEFT 3 OR MORE VIEWS Schedule Routine, Read Routine (OP Routine) 11/21/2024 2:04 PM COOK CHEF Rheumatoid arthritis with negative rheumatoid factor, involving unspecified site (HCC) XR WRIST RIGHT 3 OR MORE VIEWS Schedule Routine, Read Routine (OP Routine) 11/21/2024 2:04 PM COOK CHEF Rheumatoid arthritis with negative rheumatoid factor, involving unspecified site (HCC) XR WRIST LEFT 3 OR MORE VIEWS Schedule Routine, Read Routine (OP Routine) 11/21/2024 2:04 PM COOK CHEF Rheumatoid arthritis with negative rheumatoid factor, involving unspecified site (HCC) EGFR Routine 11/15/2024 1:46 PM COOK CHEF High risk medication use DIFFERENTIAL AUTO Routine 11/15/2024 1:4 6 PM COOK CHEF High risk medication use COMPREHENSIVE METABOLIC PANEL Routine 11/15/2024 1:46 PM COOK CHEF High risk medication use CBC WITH AUTO DIFFERENTIAL Routine 11/15/2024 1:46 PM COOK CHEF High risk medication use TB TEST, QUANTIFERON GOLD Routine 11/07/2024 3:55 PM COOK CHEF High risk medication use DEXA AXIAL SKELETON [...] 3 or More Views (11/21/2024 2:04 PM COOK CHEF) Anatomical Region Laterality Modality Upper Extremities, Hand Right Computed Radiography 11/21/2024 2:23 PM COOK CHEF Addenda Addendum by Pipe Valdivia MD on 11/22/2024 12:50 PM COOK CHEF ADDENDUM: Progressive polyarticular erosions involving the bilateral hands and wrists, most prominent in the carpus bilaterally. This is consistent with progressive inflammatory arthritis in this patient with known rheumatoid arthritis. Electronically signed by: Pipe Valdivia MD Impressions 11/21/2024 2:23 PM COOK CHEF 1. Healing fracture of the left 4th metacarpal shaft with shortening and mild ulnar displacement. 2. Polyarticular erosions involving the bilateral hands and wrists, most prominent in the carpus bilaterally. This is consistent with inflammatory arthritis. Statistically, this is most likely due to rheumatoid arthritis. Electronically signed by: Pipe Valdivia MD Narrative 11/21/2024 2:23 PM COOK CHEF EXAMINATION: XR WRIST LEFT 3 OR MORE [...] signed by: Pipe Valdivia MD Marialuisa Franklin MANAGER CLIENT IMG XR PROCEDURES Edited R esult - Final * XR Hand Left 3 or More Views (11/21/2024 2:04 PM COOK CHEF) Anatomical Region Laterality Modality Upper Extremities, Hand Left Computed Radiography 11/21/2024 2:23 PM COOK CHEF Addenda Addendum by Pipe Valdivia MD on 11/22/2024 12:50 PM COOK CHEF ADDENDUM: Progressive polyarticular erosions involving the bilateral hands and wrists, most prominent in the carpus bilaterally. This is consistent with progressive inflammatory arthritis in this patient with known rheumatoid arthritis. Electronically signed by: Pipe Valdivia MD Impressions 11/21/2024 2:23 PM COOK CHEF 1. Healing fracture of the left 4th metacarpal shaft with shortening and mild ulnar displacement. 2. Polyarticular erosions involving the bilateral hands and wrists, most prominent in the carpus bilaterally. This is consistent with inflammatory arthritis. Statistically, this is most likely due to rheumatoid arthritis. Electronically signed by: Pipe Valdivia MD Narrative 11/21/2024 2:23 PM COOK CHEF EXAMINATION: XR WRIST LEFT 3 OR MORE [...] 3 or More Views (11/21/2024 2:04 PM COOK CHEF) Anatomical Region Laterality Modality Upper Extremities, Wrist Right Compute d Radiography 11/21/2024 2:23 PM COOK CHEF Addenda Addendum by Pipe Valdivia MD on 11/22/2024 12:50 PM COOK CHEF ADDENDUM: Progressive polyarticular erosions involving the bilateral hands and wrists, most prominent in the carpus bilaterally. This is consistent with progressive inflammatory arthritis in this patient with known rheumatoid arthritis. Electronically signed by: Pipe Valdivia MD Impressions 11/21/2024 2:23 PM COOK CHEF 1. Healing fracture of the left 4th metacarpal shaft with shortening and mild ulnar displacement. 2. Polyarticular erosions involving the bilateral hands and wrists, most prominent in the carpus bilaterally. This is consistent with inflammatory arthritis. Statistically, this is most likely due to rheumatoid arthritis. Electronically signed by: Pipe Valdivia MD Narrative 11/21/2024 2:23 PM COOK CHEF EXAMINATION: XR WRIST LEFT 3 OR MORE [...] 3 or More Views (11/21/2024 2:04 PM COOK CHEF) Anatomical Region Laterality Modality Upper Extremities, Wrist Left Compute d Radiography 11/21/2024 2:23 PM COOK CHEF Addenda Addendum by Pipe Valdivia MD on 11/22/2024 12:50 PM COOK CHEF ADDENDUM: Progressive polyarticular erosions involving the bilateral hands and wrists, most prominent in the carpus bilaterally. This is consistent with progressive inflammatory arthritis in this patient with known rheumatoid arthritis. Electronically signed by: Pipe Valdivia MD Impressions 11/21/2024 2:23 PM COOK CHEF 1. Healing fracture of the left 4th metacarpal shaft with shortening and mild ulnar displacement. 2. Polyarticular erosions involving the bilateral hands and wrists, most prominent in the carpus bilaterally. This is consistent with inflammatory arthritis. Statistically, this is most likely due to rheumatoid arthritis. Electronically signed by: Pipe Valdivia MD Narrative 11/21/2024 2:23 PM COOK CHEF EXAMINATION: XR WRIST LEFT 3 OR MORE [...] - Final * eGFR (11/15/2024 1:46 PM COOK CHEF) eGFR 67 >=60 mL/min/1. 73 m2 Comment: [...] last reviewed 2021. Blood 11/15/2024 1:46 PM COOK CHEF 11/15/2024 2:48 PM COOK CHEF us Marialuisa Franklin MANAGER CLIENT LAB BLOOD ORDERABLES Final Result [facility] One [facility] Department [place] [address] * Differential, auto (11/15/2024 1:46 PM COOK CHEF) Neutrophil abs 3.2 1.5 - 6.5 K/cumm Imm gran abs 0.0 0.0 - 0.1 K/cumm [facility] Lymphocyte abs 1.1 0.8 - 3.3 K/cumm [facility] Monocyte abs 0.6 0.2 - 0.8 K/cumm [facility] Eosinophil abs 0.1 0.0 - 0.5 K/cumm [facility] Basophil abs 0.1 0.0 - 0.1 K/cumm [facility] Neutrophil pct 63.6 % [facility] Comment: Interpretive Data Percent cell count reference ranges are not reported, since discordance with absolute values may lead to misinterpretation of CBC data. Current Interpretive Data was last revised on 2018. Imm gran pct 0.4 % [facility] Comment: Interpretive Data Percent cell count reference ranges are not reported, since discordance with absolute values may lead to misinterpretation of CBC data. Current Interpretive Data was last revised on 2018. Lymphocyte pct 21.4 % [facility] Comment: Interpretive Data Percent cell count reference ranges are not reported, since discordance with absolute values may lead to misinterpretation of CBC data. Current Interpretive Data was last revised on 2018. Monocyte pct 11.4 % [facility] Comment: Interpretive Data Percent cell count reference ranges are not reported, since discordance with absolute values may lead to misinterpretation of CBC data. Current Interpretive Data was last revised on 2018. Eosinophil pct 2.0 % [facility] Comment: Interpretive Data Percent cell count reference ranges are not reported, since discordance with absolute values may lead to misinterpretation of CBC data. Current Interpretive Data was last revised on 2018. Basophil pct 1.2 % [facility] Comment: Interpretive Data Percent cell count reference ranges are not reported, since discordance with absolute values may lead to misinterpretation of CBC data. Current Interpretive Data was last revised on 2018. Blood 11/15/2024 1:46 PM COOK CHEF 11/15/2024 1:59 PM COOK CHEF Marialuisa Franklin NP LAB BLOOD ORDERABLES Final Result [facility] [place] [address] * CBC with auto differential (11/15/2024 1:46 PM COOK CHEF) WBC 5.0 3.8 - 9.9 K/cumm Hgb 13.7 11.9 - 15.5 g/dL [facility] Hct 41.1 35.6 - 45.5 % [facility] Plt 256 150 - 400 K/cumm [facility] MPV 11.0 9.1 - 12.3 fL [facility] RBC 4.32 3.90 - 5.20 M/cumm [facility] MCV 95.1 81.3 - 96.4 fL [facility] MCH 31.7 27.1 - 33.3 pg [facility] MCHC 33.3 32.3 - 35.7 g/dL [facility] RDW CV 13.3 11.1 - 14.9 % [facility] RDW SD 47.1 35.7 - 48.1 fL [facility] NRBC abs 0.00 0.00 - 0.01 K/cumm [facility] Blood 11/15/2024 1:46 PM COOK CHEF 11/15/2024 1:59 PM COOK CHEF Marialuisa Franklin MANAGER CLIENT LAB BLOOD ORDERABLES Final Result [facility] Department [place] [address] * Comprehensive metabolic panel (11/15/2024 1:46 PM COOK CHEF) Sodium 139 135 - 145 mmol/L Potassium, pl 4.5 3.3 - 4.9 mmol/L [facility] Chloride 103 97 - 110 mmol/L [facility] CO2 26 22 - 32 mmol/L [facility] Anion gap 10 2 - 15 mmol/L [facility] BUN 15 6 - 25 mg/dL [facility] Creatinine 0.92 0.60 - 1.10 mg/dL [facility] Glucose 105 70 - 199 mg/dL [facility] Comment: Interpretive Data Fasting glucose >/= [...] 2022. Calcium 9.5 8.5 - 10.3 mg/dL [facility] Bilirubin, total 0.3 0.1 - 1.2 mg/dL [facility] Protein, pl 7.1 6.5 - 8.5 g/dL [facility] Albumin 4.3 3.5 - 5.0 g/dL [facility] Alk phos 121 40 - 130 Units/L [facility] ALT 19 7 - 45 Units/L [facility] AST 22 10 - 45 Units/L [facility] Blood 11/15/2024 1:46 PM COOK CHEF 11/15/2024 2:48 PM COOK CHEF us Marialuisa R. Govero MANAGER CLIENT LAB BLOOD ORDERABLES Final Result JADYN Brady [facility] Department [place] [address] * TB test, quantiferon gold (11/07/2024 3:55 PM COOK CHEF) QuantiFERON(R)-T B Gold Plus, 1 Tube NEGATIVE [...] T-lymphocytes. For additional information, please refer to https://education.Meal Sharing.SKY Network Technology/faq/WQY055 (This link is being provided for informational/ educational purposes only.) Blood 11/07/2024 3:55 PM COOK CHEF 11/07/2024 3:56 PM COOK CHEF Marialuisa Franklin NP LAB BLOOD ORDERABLES Final Result [facility] [address] [place] [address] * Dexa Axial Skeleton Bone Density 1 or 2 Site (03/08/2024 9:24 AM CDT) Anatomical Region Laterality Modality Body N/A Radiographic Erna ging Narrative 03/08/2024 9:48 PM CDT Patient Name: Sheri Shin Date of : 1955 Date of scan: 03/08/2024 Bone mineral density was performed on a HoloRico Discovery Densitometer. Based on machine cross-calibration and [...] by the International Society of Clinical Densitometry. [id number] Marialuisa Franklin NP IMG DXA PROCEDURES Final R esult * Hepatitis panel, acute (05/24/2020 9:45 AM CDT) Hep A IgM Nonreactive Nonreactive [facility] Comment: Interpretive Data: If Hep A IgM Ab is reported as Equivocal, a new sample should be drawn in two weeks for testing. Current interpretive data was last revised on 19. Hep B core IgM Nonreactive Nonreactive [facility] Comment: Interpretive Data If HepB Core IgM Ab is reported as Equivocal, a new sample should be drawn in two weeks for testing. Current interpretive data was last revised on 19. Hep C Ab Nonreactive Nonreactive [facility] Comment:Antibodies to HCV no t detected. Does NOT exclude the possibility of recent exposure to HCV. HepBsAg Nonreactive Nonreactive [facility] Blood specimen (specimen) 05/24/2020 9:45 AM CDT 05/24/2020 12:08 PM CDT Marialuisa Franklin NP LAB MICROBIOLOGY - GENERAL ORDERABLES Edited Result - Final [facility] [place] [address] from Last 3 Months or Most Recently Relevant to Health Maintenance Insurance [employer] [facility] MEDICARE ADVANTAGE [facility] MEDICARE [facility] MEDICARE ADVANTAGE Care Teams Rooming House Keeper Relationship Specialty Start Date End Date Kerry Coffman DO [address] [place] [address] PCP - General Internal Medicine 04/19/24
--- OUTSIDE RECORDS SUMMARY | 2025-01-03 13:59 | XMS_ITS | Encounter Summary ---
Author Organization [facility] Address [address] [facility] [place] [address] Care Team Providers Care Gauge Maker Name Role Phone Meghna Kerry Primary Care Provider [phone] Kerry Coffman DO Unavailable [phone] Reason for Visit * Reason Onset Date Comments Appointment 10/20/2024 Encounter Details Date Type Department Care Team (Late st Contact Info) Description 10/20/2024 Telephone [facility] - Centralized Scheduling [address] [place] [phone] Moncho Salcedo, SENIOR STAFF CONSULTANT-X RAY CONSULTANT [address] [phone] Appointment Social History Tobacco Use [...] Sex Assigned at Female 09/16/2024 2:41 PM INTEGRATION ASSISTANT Gender Identity Female 09/16/2024 2:41 PM INTEGRATION ASSISTANT Sexual Orientation Straight 09/16/2024 2: 41 PM INTEGRATION ASSISTANT documented as of this encounter Functional Status [...] to schedule for a Short Procedure with CARDIOLOGY CLINICAL CONSULTANT [facility] in November. GRATION ASSISTANT documented in this encounter Plan of Treatment Upcoming Encounters Date Type Department Care Team (Late st Contact Info) Description 01/25/2025 10:30 AM CDT Office Visit [facility] - GI [address] [place] [phone] Yolanda Greer, SENIOR STAFF CONSULTANT-X RAY CONSULTANT [address] [place] [phone] 01/31/2025 11:00 AM CDT Office Visit [facility] - Internal Medicine [address] , [address] [phone] Kerry Coffman DO [address] [place] [address] DIV OF [facility] [place] [address] 02/09/2025 11:15 AM CDT Office Visit [facility] - Ophthalmology [address] [place] [phone] Percy Matute MD [address] [place] [address] [place] [phone] 02/09/2025 4:00 PM CDT Office Visit [facility] - Allergy [address] [place] [phone] Papito Morales MD [facility] 2L DIV OF ALLERGY/[place] [address] 03/02/2025 1:00 PM CDT Office Visit [facility] - Neurology [address] [place] [address], [place] [phone] Moncho Salcedo APRN-X RAY CONSULTANT [address] [place] [address] 1L [place] [phone] 04/13/2025 3:00 PM CDT Office Visit [facility] - Allergy [address] [place] [address], [place] [phone] Papito Morales MD [address] [place] [address] 2L DIV [place] ALLERGY/[place] [address] documented as of this encounter Goals Goal Patient Goal Type Associated Problems Recent Progress Patient-Stated? Author Medication Management General On track( 025 10:42 AM INTEGRATION ASSISTANT) Marion Scott, RN Note: Expected end date: ongoing Interventions: Take all medications as prescribed documented as of this encounter Visit Diagnoses Not on filedocumented in this encounter Additional Health Concerns Infection Onset Date Last Indicated Resolved Time CDIFF Under Investigation 10/26/2024 11/07/2024 4:33 AM INTEGRATION ASSISTANT CDIFF Under Investigation 11/07/2024 11/07/2024 5:38 PM INTEGRATION ASSISTANT documented as of this encounter Care Teams Gauge Maker Relationship Specialty Start Date End Date Kerry Coffman DO [address] [place] [address] 2L [place] [address] PCP - General Internal Medicine 12/15/23 Kerry Coffman DO [address] [place] [address] 2L [place] [address] PCP - Attributed-[facility] P4P 12/10/24 documented as of this encounter
--- OUTSIDE RECORDS SUMMARY | 2025-01-03 13:59 | XMS_ITS | Encounter Summary ---
Author Organization [facility] Address [address] [facility] [place] [address] Care Team Providers Care Road Roller Engineer Name Role Phone MeghnaKerry Primary Care Provider [phone] Meghna Kerry FRANKS Unavailable [phone] Encounter Details Date Type Department Care Team (Late st Contact Info) Description 02/10/2024 Telephone [facility] - Neurology [address] [facility], [place] [phone] Hyacinth Arriaga, OUTBOUND TELEMARKETING REPRESENTATIVE-ELECTRIC METER INSTALLER [address] [place] [address] [place] [address] Social History Tobacco Use Types Packs/Day Years Used Date Smoking Tobacco: Never Assessed Sex and Gender Information Value Date Recorded Sex Assigned at Female 09/16/2024 2:41 PM NUTRITION COORDINATOR Gender Identity Female 09/16/2024 2:41 PM NUTRITION COORDINATOR Sexual Orientation Straight 09/16/2024 2: 41 PM NUTRITION COORDINATOR documented as of this encounter Functional Status [...] Description 01/25/2025 10:30 AM CDT Office Visit [facility] - GI [address] [place] [phone] Yolanda Greer, OUTBOUND TELEMARKETING REPRESENTATIVE-ELECTRIC METER INSTALLER [address] [place] [phone] 01/31/2025 11:00 AM CDT Office Visit [facility] - Internal Medicine [address] , [address] [phone] Kerry Coffman DO [address] [place] [address] 2L [place] [address] 02/09/2025 11:15 AM CDT Office Visit [facility] - Ophthalmology [address] [place] [phone] Percy Matute MD [address] [place] [address] [place] [phone] 02/09/2025 4:00 PM CDT Office Visit [facility] - Allergy [address] [place] [phone] Papito Morales MD [address] [place] [address] 2L DIV OF ALLERGY/[place] [address] 03/02/2025 1:00 PM CDT Office Visit [facility] - Neurology [address] [place] [address], [place] [phone] Moncho Salcedo APRN-ELECTRIC METER INSTALLER [address] [facility] 1L [place] [phone] 04/13/2025 3:00 PM CDT Office Visit [facility] - Allergy [address] [place] [address], [place] [phone] Papito Morales MD [address] [facility] 2L DIV OF ALLERGY/[place] [address] documented as of this encounter Visit Diagnoses Not on filedocumented in this encounter Additional Health Concerns Infection Onset Date Last Indicated Resolved Time CDIFF Under Investigation 07/20/2024 07/20/2024 4:33 AM CDT CDIFF Under Investigation 10/26/2024 11/07/2024 4:33 AM NUTRITION COORDINATOR CDIFF Under Investigation 11/07/2024 11/07/2024 5:38 PM NUTRITION COORDINATOR documented as of this encounter Care Teams Road Roller Engineer Relationship Specialty Start Date End Date Kerry Coffman DO [address] [facility] 2L [place] [address] PCP - General Internal Medicine 12/15/23 Kerry Coffman DO [address] [facility] 2L [place] [address] PCP - [facility] P4P 12/10/24 documented as of this encounter
--- OUTSIDE RECORDS SUMMARY | 2025-01-03 13:59 | XMS_ITS | Continuity of Care Document ---
Author Organization Results [facility] Address [address] [place] [address] Phone Care Team Providers Care Research Greenhouse Supervisor Name Role Phone Sandie Briggs MD Unavailable Unavailable Allergies, Adverse Reactions, Alerts Substance Reaction Status Criticality sulfanilamide Rash Active No Information Penicillins Hives/Skin Rash Active No Informati on Medications Medication Instructions Dosage Effective Dates (start - stop) Status Comments folic acid 1 mg tablet take 1 tablet (1MG) by oral route every day 1 MG - Active bupropion HCl SR 150 mg tablet,extended release take 1 tablet (150MG) by oral route every 12 hours 150 MG - Active hydroxyzine 25 mg tablet take 1 tablet (25MG) by oral route every 8 hours 25 MG - Active propranolol 20 mg tablet take 1 tablet (20MG) by oral route every 12 hours 20 MG - Active trazodone 150 mg tablet take 1 tablet (150MG) by oral route every day at bedtime - Active Procedures Procedure Date COLLECTION OF [...] Encounter [facility], [address], [place], [place], [address] , [place] tel: [phone] [facility] No Information [address], [place], [place], [id number], [place]. [phone] OFFICE/OUTPATI ENT VISIT, EST [facility], [address], [place], [place], [address] , [place] tel: [phone] [facility] medication refill (chief complaint) Bipolar disorderHigh risk medication use 3 No Information [facility], [address], [place], [place], [address] , [place] tel: [phone] [facility]as[facility] Dental examination 2 No Information OFFICE OUTPT EST 25 MIN [facility], [address], [place], [place], [address] , [place] tel: [phone] [facility] referrals (chief complaint)b ipolar disorder (chief complaint) Bipolar disorderAlcohol abuseRoutine adult health maintenanceNeed for prophylactic vaccination and inoculation against Streptococcus pneumoniae [pneumococcus]C ommon wart 2 No Information OFFICE/OUTPATI ENT VISIT, EST [facility], [address], [place], [place], [address] , [place] tel: [phone] [facility] test results (chief complaint) Genital herpes, unspecifiedBeni gn neoplasm of vulvaNeed for prophylactic vaccination and inoculation, influenza 2 No Information [facility], [address], [place], [place], [address] , [place] tel: [phone] [facility] Dental examination 2 No Information OFFICE/OUTPATI ENT VISIT, EST [facility], [address], [place], [place], [address] , [place] tel: [phone] [facility] irritated spot on vulva (chief complaint) Benign neoplasm of vulva 2 No Information 1ST COMPRE PREV MED E/M NEW PT 40-64 [facility], [address], [place], [place], [address] , [place] tel: [phone] [facility] annual visit (chief complaint) Routine gynecological examination 2 No Information [facility], [address], [place], [place], [address] , [place] tel: [phone] [facility] Velaqsuez No Information 1 No Information OFFICE OUTPT EST 25 MIN [facility], [address], [place], [place], [address] , [place] tel: [phone] [facility] pain (chief complaint)E R f/u (chief complaint) Other and unspecified alcohol dependence, continuous drinking behavior 1 No Information ENVIRONMENTAL IVNTJ MGMT PURPOSES PSYC PT [facility], [address], [place], [place], [address] , [place] tel: [phone] [facility] No Information 0 No Information FAMILY PSYCHOTHERAPY (CONJOINT PSYCHOTHERAPY) (WITH PATIENT PRESENT) [facility], [address], [place], [place], [address] , [place] tel: [phone] [facility] substance abuse (chief complaint) No Information 0 No Information OFFICE/OUTPATI ENT VISIT, EST [facility], [address], [place], [place], [address] , [place] tel: [phone] [facility] alcohol (chief complaint) Other and unspecified alcohol dependence, continuous drinking behavior 0 No Information OFFICE/OUTPATI ENT VISIT, EST [facility], [address], [place], [place], [address] , [place] tel: [phone] [facility] dizziness (chief complaint)a lcohol abuse (chief complaint) Other and unspecified alcohol dependence, continuous drinking behaviorDizzine ss and giddiness 0 No Information [facility], [address], [place], [place], [address] , [place] tel: [phone] [facility] depression (chief complaint) Major depressive affective disorder, recurrent episode, moderate degreeOther and unspecified alcohol dependence, continuous drinking behaviorUnspeci fied personality disorder 0 No Information OFFICE/OUTPATI ENT VISIT, NEW [facility], [address], [place], [place], [address] , [place] tel: [phone] [facility] REFERRED BY [facility]A DE DAY (chief complaint)M EDICATION NEEDED (chief complaint) Issue of repeat prescriptions 0 Juan [facility] [address], [place], [place], [address], [place]. [phone] [facility], [address], [place], [place], [address] , [place] tel: [phone] Care Guidelines Aly-0 1-190 1 No Information [...] ALT. Due on due Referral Referred To: [facility] Ordered: Referral: [facility]. Psychiatry. Evaluate and treat. ordered Referral Referred To: Josse Carrillo MD [address] [place], [place], [phone] Ordered: Referral: Josse Carrillo MD. Psychiatry. Evaluate and treat. ordered Referral Referred To: [facility] [address], [place], [phone] Ordered: Referral: [facility] [place]. Radiology. Diagnostic testing. Appointment date/timeframe: 04/12/2012 ordered Referral Referred To: Anupam Sher MD [address] [place], [place], [phone] Ordered: Referral: Anupam Sher MD. Psychiatry. Appointment [...]
--- OUTSIDE RECORDS SUMMARY | 2025-01-03 13:59 | XMS_ITS | Clinical Summary ---
Author Organization [facility] Address [address] [place] [address] Phone Care Team Providers Care Report Writer Name Role Phone Joan Robins MD Primary [...] on file Legal Sex Female 10:36 AM PATTERNATOR Gender Identity Not on file Sexual Orientation Not on file Last Filed Vital Signs Vital Sign Reading Time Taken Comments Blood Pressure 125/81 10/21/2018 12:15 PM PATTERNATOR Pulse 72 10/21/2018 12:25 PM PATTERNATOR Temperature 36.3 C (97.3 F) 10/21/2018 11:32 AM PATTERNATOR Respiratory Rate 18 10/21/2018 12:25 PM PATTERNATOR Oxygen Saturation 99% 10/21/2018 12:25 PM PATTERNATOR Inhaled Oxygen Concentration - - Weight 60.3 kg (133 lb) 10/21/2018 11:32 AM PATTERNATOR Height 170.2 cm (5' 7 ) 10/21/2018 11:32 AM PATTERNATOR Body Mass Index 20.83 10/21/2018 11:32 AM PATTERNATOR Plan of Treatment Health Maintenance Due Date [...] age to complete this topic Insurance [employer]ID [employer] Care Teams Report Writer Relationship Specialty Start Date End Date Joan Robins MD [address] [id number] PCP - General Internal Medicine 10/21/18
== END 2025-01-03 11:48 | disposition home or self-care (01) ==
PROVIDERS: Visit Provider Plastic Surgery
DX: S62.325A Displaced fracture of shaft of fourth metacarpal bone, left hand, initial encounter for closed fracture (principal); S52.612A Displaced fracture of left ulna styloid process, initial encounter for closed fracture; S62.395A Other fracture of fourth metacarpal bone, left hand, initial encounter for closed fracture; S52.502A Unspecified fracture of the lower end of left radius, initial encounter for closed fracture; X58.XXXA Exposure to other specified factors, initial encounter
CPT/HCPCS: 73130

== ENCOUNTER 2025-01-03 15:45 | Outpatient (CLI) | payer MEDICARE, SELFPAY ==
--- NOTE | ~2025-01-03 | XR_ITS ---
EXAMINATION: XR hand LT min 3V DATE: 01/03/2025 16:01 INDICATION: Displaced fracture of shaft of fourth metacarpal of left hand. TECHNIQUE: 4 views of left hand were obtained. COMPARISON: Left hand radiographs at 12:03 PM FINDINGS: There is an oblique fracture of diaphysis of fourth metacarpal. The distal fracture fragmen t demonstrates 1 mm dorsal ulnar displacement. Callus formation is noted. Fixation is seen with 2 per cutaneous wires. There is an avulsion fracture of the ulnar styloid. There is a comminuted fracture o f distal radius with involvement of the distal articular surface. The main distal fracture fragment d emonstrates impaction and dorsal angulation. The main distal fracture fragment demonstrates impaction and dorsal angulation. There is 20 degrees dorsal tilt of the distal articular surface. There is moderate osteoa rthritis of first carpometacarpal joint. IMPRESSION: 1. Comminuted fracture of distal radius. 2. Avulsion fracture of the ulnar styloid. 3. Oblique fracture of diaphysis of fourth metacarpal with pin fixation. Reviewed, dictated and finalized at location A.
--- OUTSIDE RECORDS SUMMARY | 2025-01-03 18:15 | XMS_ITS | Referral Summary ---
Author Organization [facility] Address [address] [place] [phone] Care Team Providers Care Rn Appeals Name Role Phone Kerry Coffman DO Primary Care Provider Encounters Date Type Department Care Team Description 11/21/2024 1:50 PM TIER AND DETONATOR - 11/21/2024 11:59 PM TIER AND DETONATOR Hospital Encounter [facility] Radiology at [facility] [address] [place] [phone] Discharge Disposition: Discharge to home or self care 11/21/2024 1:20 PM TIER AND DETONATOR Office Visit [facility] Rheumatology [address] [facility] 2nd Floor [address] [place] [phone] Marialuisa [place], SAMI Rheumatoid arthritis with negative rheumatoid factor, involving unspecified site (HCC) (Primary Dx); High risk medication use 11/15/2024 10:40 AM TIER AND DETONATOR - 11/15/2024 11:59 PM TIER AND DETONATOR Hospital Encounter [address] [address] High risk medication use Discharge Disposition: Discharge to home or self care 11/15/2024 10:30 AM TIER AND DETONATOR Infusion [facility] Infusion Therapy [address] [facility] 2nd Floor [address] [place] [phone] Rheumatoid arthritis with negative rheumatoid factor, involving unspecified site (HCC) (Primary Dx) 10/18/2024 10:30 AM TIER AND DETONATOR Infusion [facility] Infusion Therapy [address] [facility] 2nd Floor [address] [place] [phone] Rheumatoid arthritis with negative rheumatoid factor, involving [...] 1 tablet (2 mg total) by mouth early childhood education instructor before breakfast 4 Active azelastine (ASTELIN) 137 [...] on file Legal Sex Female 10:45 PM TIER AND DETONATOR Gender Identity Not on file Sexual Orientation Not on file Last Filed Vital Signs Vital Sign Reading Time Taken Comments Blood Pressure 93/58 11/21/2024 1:01 PM TIER AND DETONATOR Pulse 63 11/21/2024 1:01 PM TIER AND DETONATOR Temperature 36.6 C (97.8 F) 11/21/2024 1:01 PM TIER AND DETONATOR Respiratory Rate - - Oxygen Saturation 99% 11/21/2024 1:01 PM TIER AND DETONATOR Inhaled Oxygen Concentration - - Weight 68 kg (150 lb) 11/21/2024 1:01 PM TIER AND DETONATOR Height 167.6 cm (5' 5.98 ) 11/21/2024 1:01 PM CS T Body Mass Index 24.22 11/21/2024 1:01 PM TIER AND DETONATOR Plan of Treatment Not on file Procedures Procedure Name Priority Date/Time Associated Diagnosis Comments XR HAND RIGHT 3 OR MORE VIEWS Schedule Routine, Read Routine (OP Routine) 11/21/2024 2:04 PM TIER AND DETONATOR Rheumatoid arthritis with negative rheumatoid factor, involving unspecified site (HCC) XR HAND LEFT 3 OR MORE VIEWS Schedule Routine, Read Routine (OP Routine) 11/21/2024 2:04 PM TIER AND DETONATOR Rheumatoid arthritis with negative rheumatoid factor, involving unspecified site (HCC) XR WRIST RIGHT 3 OR MORE VIEWS Schedule Routine, Read Routine (OP Routine) 11/21/2024 2:04 PM TIER AND DETONATOR Rheumatoid arthritis with negative rheumatoid factor, involving unspecified site (HCC) XR WRIST LEFT 3 OR MORE VIEWS Schedule Routine, Read Routine (OP Routine) 11/21/2024 2:04 PM TIER AND DETONATOR Rheumatoid arthritis with negative rheumatoid factor, involving unspecified site (HCC) EGFR Routine 11/15/2024 1:46 PM TIER AND DETONATOR High risk medication use DIFFERENTIAL AUTO Routine 11/15/2024 1:4 6 PM TIER AND DETONATOR High risk medication use COMPREHENSIVE METABOLIC PANEL Routine 11/15/2024 1:46 PM TIER AND DETONATOR High risk medication use CBC WITH AUTO DIFFERENTIAL Routine 11/15/2024 1:46 PM TIER AND DETONATOR High risk medication use TB TEST, QUANTIFERON GOLD Routine 11/07/2024 3:55 PM TIER AND DETONATOR High risk medication use DEXA AXIAL SKELETON [...] 3 or More Views (11/21/2024 2:04 PM TIER AND DETONATOR) Anatomical Region Laterality Modality Upper Extremities, Hand Right Computed Radiography 11/21/2024 2:23 PM TIER AND DETONATOR Addenda Addendum by Pipe Valdivia MD on 11/22/2024 12:50 PM TIER AND DETONATOR ADDENDUM: Progressive polyarticular erosions involving the bilateral hands and wrists, most prominent in the carpus bilaterally. This is consistent with progressive inflammatory arthritis in this patient with known rheumatoid arthritis. Electronically signed by: Pipe Valdivia MD Impressions 11/21/2024 2:23 PM TIER AND DETONATOR 1. Healing fracture of the left 4th metacarpal shaft with shortening and mild ulnar displacement. 2. Polyarticular erosions involving the bilateral hands and wrists, most prominent in the carpus bilaterally. This is consistent with inflammatory arthritis. Statistically, this is most likely due to rheumatoid arthritis. Electronically signed by: Pipe Valdivia MD Narrative 11/21/2024 2:23 PM TIER AND DETONATOR EXAMINATION: XR WRIST LEFT 3 OR MORE [...] signed by: Pipe Valdivia MD Marialuisa Franklin MATERIAL SCHEDULER IMG XR PROCEDURES Edited R esult - Final * XR Hand Left 3 or More Views (11/21/2024 2:04 PM TIER AND DETONATOR) Anatomical Region Laterality Modality Upper Extremities, Hand Left Computed Radiography 11/21/2024 2:23 PM TIER AND DETONATOR Addenda Addendum by Pipe Valdivia MD on 11/22/2024 12:50 PM TIER AND DETONATOR ADDENDUM: Progressive polyarticular erosions involving the bilateral hands and wrists, most prominent in the carpus bilaterally. This is consistent with progressive inflammatory arthritis in this patient with known rheumatoid arthritis. Electronically signed by: Pipe Valdivia MD Impressions 11/21/2024 2:23 PM TIER AND DETONATOR 1. Healing fracture of the left 4th metacarpal shaft with shortening and mild ulnar displacement. 2. Polyarticular erosions involving the bilateral hands and wrists, most prominent in the carpus bilaterally. This is consistent with inflammatory arthritis. Statistically, this is most likely due to rheumatoid arthritis. Electronically signed by: Pipe Valdivia MD Narrative 11/21/2024 2:23 PM TIER AND DETONATOR EXAMINATION: XR WRIST LEFT 3 OR MORE [...] 3 or More Views (11/21/2024 2:04 PM TIER AND DETONATOR) Anatomical Region Laterality Modality Upper Extremities, Wrist Right Compute d Radiography 11/21/2024 2:23 PM TIER AND DETONATOR Addenda Addendum by Pipe Valdivia MD on 11/22/2024 12:50 PM TIER AND DETONATOR ADDENDUM: Progressive polyarticular erosions involving the bilateral hands and wrists, most prominent in the carpus bilaterally. This is consistent with progressive inflammatory arthritis in this patient with known rheumatoid arthritis. Electronically signed by: Pipe Valdivia MD Impressions 11/21/2024 2:23 PM TIER AND DETONATOR 1. Healing fracture of the left 4th metacarpal shaft with shortening and mild ulnar displacement. 2. Polyarticular erosions involving the bilateral hands and wrists, most prominent in the carpus bilaterally. This is consistent with inflammatory arthritis. Statistically, this is most likely due to rheumatoid arthritis. Electronically signed by: Pipe Valdivia MD Narrative 11/21/2024 2:23 PM TIER AND DETONATOR EXAMINATION: XR WRIST LEFT 3 OR MORE [...] 3 or More Views (11/21/2024 2:04 PM TIER AND DETONATOR) Anatomical Region Laterality Modality Upper Extremities, Wrist Left Compute d Radiography 11/21/2024 2:23 PM TIER AND DETONATOR Addenda Addendum by Pipe Valdivia MD on 11/22/2024 12:50 PM TIER AND DETONATOR ADDENDUM: Progressive polyarticular erosions involving the bilateral hands and wrists, most prominent in the carpus bilaterally. This is consistent with progressive inflammatory arthritis in this patient with known rheumatoid arthritis. Electronically signed by: Pipe Valdivia MD Impressions 11/21/2024 2:23 PM TIER AND DETONATOR 1. Healing fracture of the left 4th metacarpal shaft with shortening and mild ulnar displacement. 2. Polyarticular erosions involving the bilateral hands and wrists, most prominent in the carpus bilaterally. This is consistent with inflammatory arthritis. Statistically, this is most likely due to rheumatoid arthritis. Electronically signed by: Pipe Valdivia MD Narrative 11/21/2024 2:23 PM TIER AND DETONATOR EXAMINATION: XR WRIST LEFT 3 OR MORE [...] - Final * eGFR (11/15/2024 1:46 PM TIER AND DETONATOR) eGFR 67 >=60 mL/min/1. 73 m2 Comment: [...] last reviewed 2021. Blood 11/15/2024 1:46 PM TIER AND DETONATOR 11/15/2024 2:48 PM TIER AND DETONATOR us Marialuisa Franklin MATERIAL SCHEDULER LAB BLOOD ORDERABLES Final Result [facility] Department [place] [address] * Differential, auto (11/15/2024 1:46 PM TIER AND DETONATOR) Neutrophil abs 3.2 1.5 - 6.5 K/cumm Imm gran abs 0.0 0.0 - 0.1 K/cumm [facility] Lymphocyte abs 1.1 0.8 - 3.3 K/cumm [facility] Monocyte abs 0.6 0.2 - 0.8 K/cumm [facility] Eosinophil abs 0.1 0.0 - 0.5 K/cumm [facility] Basophil abs 0.1 0.0 - 0.1 K/cumm [facility] Neutrophil pct 63.6 % [facility] Comment: Interpretive Data Percent cell count reference ranges are not reported, since discordance with absolute values may lead to misinterpretation of CBC data. Current Interpretive Data was last revised on 2018. Imm gran pct 0.4 % [facility] Comment: Interpretive Data Percent cell count reference ranges are not reported, since discordance with absolute values may lead to misinterpretation of CBC data. Current Interpretive Data was last revised on 2018. Lymphocyte pct 21.4 % [facility] Comment: Interpretive Data Percent cell count reference ranges are not reported, since discordance with absolute values may lead to misinterpretation of CBC data. Current Interpretive Data was last revised on 2018. Monocyte pct 11.4 % [facility] Comment: Interpretive Data Percent cell count reference ranges are not reported, since discordance with absolute values may lead to misinterpretation of CBC data. Current Interpretive Data was last revised on 2018. Eosinophil pct 2.0 % [facility] Comment: Interpretive Data Percent cell count reference ranges are not reported, since discordance with absolute values may lead to misinterpretation of CBC data. Current Interpretive Data was last revised on 2018. Basophil pct 1.2 % [facility] Comment: Interpretive Data Percent cell count reference ranges are not reported, since discordance with absolute values may lead to misinterpretation of CBC data. Current Interpretive Data was last revised on 2018. Blood 11/15/2024 1:46 PM TIER AND DETONATOR 11/15/2024 1:59 PM TIER AND DETONATOR Marialuisa [place] NP LAB BLOOD ORDERABLES Final Result [facility] [address] [facility] Department [place] [address] * CBC with auto differential (11/15/2024 1:46 PM TIER AND DETONATOR) WBC 5.0 3.8 - 9.9 K/cumm Hgb 13.7 11.9 - 15.5 g/dL [facility] Hct 41.1 35.6 - 45.5 % [facility] Plt 256 150 - 400 K/cumm [facility] MPV 11.0 9.1 - 12.3 fL [facility] RBC 4.32 3.90 - 5.20 M/cumm [facility] MCV 95.1 81.3 - 96.4 fL [facility] MCH 31.7 27.1 - 33.3 pg [facility] MCHC 33.3 32.3 - 35.7 g/dL [facility] RDW CV 13.3 11.1 - 14.9 % [facility] RDW SD 47.1 35.7 - 48.1 fL [facility] NRBC abs 0.00 0.00 - 0.01 K/cumm [facility] Blood 11/15/2024 1:46 PM TIER AND DETONATOR 11/15/2024 1:59 PM TIER AND DETONATOR Marialuisa Franklin MATERIAL SCHEDULER LAB BLOOD ORDERABLES Final Result [facility] [address] [facility] Department [place] [address] * Comprehensive metabolic panel (11/15/2024 1:46 PM TIER AND DETONATOR) Sodium 139 135 - 145 mmol/L Potassium, pl 4.5 3.3 - 4.9 mmol/L [facility] Chloride 103 97 - 110 mmol/L [facility] CO2 26 22 - 32 mmol/L [facility] Anion gap 10 2 - 15 mmol/L [facility] BUN 15 6 - 25 mg/dL [facility] Creatinine 0.92 0.60 - 1.10 mg/dL [facility] Glucose 105 70 - 199 mg/dL [facility] Comment: Interpretive Data Fasting glucose >/= [...] 2022. Calcium 9.5 8.5 - 10.3 mg/dL [facility] Bilirubin, total 0.3 0.1 - 1.2 mg/dL [facility] Protein, pl 7.1 6.5 - 8.5 g/dL [facility] Albumin 4.3 3.5 - 5.0 g/dL [facility] Alk phos 121 40 - 130 Units/L [facility] ALT 19 7 - 45 Units/L [facility] AST 22 10 - 45 Units/L [facility] Blood 11/15/2024 1:46 PM TIER AND DETONATOR 11/15/2024 2:48 PM TIER AND DETONATOR us Marialuisa R. Govero MATERIAL SCHEDULER LAB BLOOD ORDERABLES Final Result [facility] Department [place] [address] * TB test, quantiferon gold (11/07/2024 3:55 PM TIER AND DETONATOR) QuantiFERON(R)-T B Gold Plus, 1 Tube NEGATIVE [...] T-lymphocytes. For additional information, please refer to https://education.Broadcastr.Anadys/faq/ECL473 (This link is being provided for informational/ educational purposes only.) Blood 11/07/2024 3:55 PM TIER AND DETONATOR 11/07/2024 3:56 PM TIER AND DETONATOR Marialuisa [place] NP LAB BLOOD ORDERABLES Final Result [facility] [address] [place] [phone] * Dexa Axial Skeleton Bone Density 1 or 2 Site (03/08/2024 9:24 AM CDT) Anatomical Region Laterality Modality Body N/A Radiographic Erna ging Narrative 03/08/2024 9:48 PM CDT Patient Name: Sheri Shin Date of : 1955 Date of scan: 03/08/2024 Bone mineral density was performed on a HoloGiveter Discovery Densitometer. Based on machine cross-calibration and [...] density scan were prepared by Parul Jimenez) ASRENIOT who is accredited by the International Society of Clinical Densitometry. The overall patient assessment and scan interpretation were performed by Mar Orozco MD who is certified by the International Society of Clinical Densitometry. [id number] Marialuisa [place] NP IMG DXA PROCEDURES Final R esult * Hepatitis panel, acute (05/24/2020 9:45 AM CDT) Hep A IgM Nonreactive Nonreactive [facility] Comment: Interpretive Data: If Hep A [...] 19. Hep C Ab Nonreactive Nonreactive [facility] Comment:Antibodies to HCV no t detected. Does NOT exclude the possibility of recent exposure to HCV. HepBsAg Nonreactive Nonreactive [facility] Blood specimen (specimen) 05/24/2020 9:45 AM CDT 05/24/2020 12:08 PM CDT Marialuisa [place] NP LAB MICROBIOLOGY - GENERAL ORDERABLES Edited Result - Final [facility] [place] [address] from Last 3 Months or Most Recently Relevant to Health Maintenance Insurance [employer] [facility] MEDICARE [facility] Address: [address] [address] [place] [address] [facility] MEDICARE MEDICARE [facility] MEDICARE [facility] Address: [address] [address] [place] [address] Care Teams Rn Appeals Relationship Specialty Start Date End Date Kerry Coffman DO [address] [place] [address] PCP - General Internal Medicine 04/19/24
--- OUTSIDE RECORDS SUMMARY | 2025-01-03 18:15 | XMS_ITS | Encounter Summary ---
Author Organization [facility] Address [address] [facility] [place] [address] Care Team Providers Care Medical Physics Teacher Name Role Phone MeghnaKerry Primary Care Provider [phone] Meghna Kerry FRANKS Unavailable [phone] Encounter Details Date Type Department Care Team (Late st Contact Info) Description 02/10/2024 Telephone [facility] - Neurology [address] [facility], [place] [phone] Hyacinth Arriaga, MERCHANDISE FLOW TEAM MEMBER-CIRCUIT COURT MAGISTRATE [address] [place] [address] [place] [address] Social History Tobacco Use Types Packs/Day Years Used Date Smoking Tobacco: Never Assessed Sex and Gender Information Value Date Recorded Sex Assigned at Female 09/16/2024 2:41 PM SANITATION OFFICER Gender Identity Female 09/16/2024 2:41 PM SANITATION OFFICER Sexual Orientation Straight 09/16/2024 2: 41 PM SANITATION OFFICER documented as of this encounter Functional Status [...] Description 01/25/2025 10:30 AM CDT Office Visit [facility] - GI [address] [place] [phone] Yolanda Greer, MERCHANDISE FLOW TEAM MEMBER-CIRCUIT COURT MAGISTRATE [address] [place] [phone] 01/31/2025 11:00 AM CDT Office Visit [facility] - Internal Medicine [address] , [address] [phone] Kerry Coffman DO [address] [place] [address] 2L [place] [address] 02/09/2025 11:15 AM CDT Office Visit [facility] - Ophthalmology [address] [place] [phone] Percy Matute MD [address] [place] [address] [place] [phone] 02/09/2025 4:00 PM CDT Office Visit [facility] - Allergy [address] [place] [phone] Papito Morales MD [address] [place] [address] 2L DIV OF ALLERGY/[place] [address] 03/02/2025 1:00 PM CDT Office Visit [facility] - Neurology [address] [place] [address], [place] [phone] Moncho Salcedo APRN-CIRCUIT COURT MAGISTRATE [address] [facility] 1L [place] [phone] 04/13/2025 3:00 PM CDT Office Visit [facility] - Allergy [address] [place] [address], [place] [phone] Papito Morales MD [address] [facility] 2L DIV OF ALLERGY/[place] [address] documented as of this encounter Visit Diagnoses Not on filedocumented in this encounter Additional Health Concerns Infection Onset Date Last Indicated Resolved Time CDIFF Under Investigation 07/20/2024 07/20/2024 4:33 AM CDT CDIFF Under Investigation 10/26/2024 11/07/2024 4:33 AM SANITATION OFFICER CDIFF Under Investigation 11/07/2024 11/07/2024 5:38 PM SANITATION OFFICER documented as of this encounter Care Teams Medical Physics Teacher Relationship Specialty Start Date End Date Kerry Coffman DO [address] [facility] 2L [place] [address] PCP - General Internal Medicine 12/15/23 Kerry Coffman DO [address] [facility] 2L [place] [address] PCP - [facility] P[facility]P 12/10/24 documented as of this encounter
--- OUTSIDE RECORDS SUMMARY | 2025-01-03 18:15 | XMS_ITS | Encounter Summary ---
Author Organization [facility] Address [address] [facility] [place] [address] Care Team Providers Care Rhinologist Name Role Phone Joan Robins MD Primary Care Provider EastmontKerry reddy DO Primary Care Provider [phone] Kerry Coffman DO Unavailable [phone] Encounter Details Date Type Department Care Team (Late st Contact Info) Description 12/18/2021 Telephone [facility] [address] [place], [place] [phone] Rissa Vo MD Social History Tobacco Use Types Packs/Day Years Used Date Smoking Tobacco: Former Smokeless Tobacco: Never Alcohol Use Standard Drinks/Week Comments Never 0 (1 standard drink = 0.6 oz pur e alcohol) Sex and Gender Information Value Date Recorded Sex Assigned at Female 09/16/2024 2:41 PM PILOT PLANT TECHNICIAN Gender Identity Female 09/16/2024 2:41 PM PILOT PLANT TECHNICIAN Sexual Orientation Straight 09/16/2024 2: 41 PM PILOT PLANT TECHNICIAN COVID-19 Exposure Response Date Recorded In the last month, have you been in contact with someone who was confirmed or suspected to have Coronavirus / COVID-19? No / Unsure 12/19/2021 5:58 AM PILOT PLANT TECHNICIAN documented as of this encounter Patient Instructions * Patient Instructions* Donny Elliott - 12/18/2021 6:58 AM PILOT PLANT TECHNICIAN Pt was bumped from 03/17/2022 DBN appt. [facility] does not schedule for these appt types. Please reschedule from the bump list. T PLANT TECHNICIAN documented in this encounter Plan of Treatment Upcoming Encounters Date Type Department Care Team (Late st Contact Info) Description 01/25/2025 10:30 AM CDT Office Visit [facility] - GI [address] [place] [address], [place] [phone] Yolanda Greer, SUPERVISOR OF OFFICIALS-LICENSED MIDWIFE [address] [place] [phone] 01/31/2025 11:00 AM CDT Office Visit [facility] - Internal Medicine [address], [address] [phone] Kerry Coffman DO [address] [place] [address] 2L DIV [place] [address] 02/09/2025 11:15 AM CDT Office Visit [facility] - Ophthalmology [address] [place] [address], [place] [phone] Percy Matute MD [address] [place] [address] [place] [phone] 02/09/2025 4:00 PM CDT Office Visit [facility] - Allergy [address] [place] [address], [place] [phone] Papito Morales MD [address] [place] [address] 2L DIV OF ALLERGY/[place] [address] 03/02/2025 1:00 PM CDT Office Visit [facility] - Neurology [address] [place] [address], [place] [phone] Moncho Salcedo, SUPERVISOR OF OFFICIALS-LICENSED MIDWIFE [address] [place] [address] 1L [place] [phone] 04/13/2025 3:00 PM CDT Office Visit [facility] - Allergy [address] [place] [address], [place] [phone] Papito Morales MD [address] [place] [address] 2L DIV [place]ERGY/[place] [address] documented as of this encounter Visit Diagnoses Not on filedocumented in this encounter Additional Health Concerns Infection Onset Date Last Indicated Resolved Time CDIFF Under Investigation 07/20/2024 07/20/2024 4:33 AM CDT CDIFF Under Investigation 10/26/2024 11/07/2024 4:33 AM PILOT PLANT TECHNICIAN CDIFF Under Investigation 11/07/2024 11/07/2024 5:38 PM PILOT PLANT TECHNICIAN documented as of this encounter Care Teams Rhinologist Relationship Specialty Start Date End Date Joan Robins MD [address] [place], [place] [phone] PCP - General 02/14/19 12/14/23 Kerry Coffman DO [address] [place] [address] 2L DIV [place] [address] PCP - General Internal Medicine 12/15/23 Kerry Coffman DO [address] [place] [address] 2L DIV [place] [address] PCP - [facility] P[facility] 12/10/24 documented as of this encounter
--- OUTSIDE RECORDS SUMMARY | 2025-01-03 18:15 | XMS_ITS | Clinical Summary ---
Author Organization [facility] Address [address] [place] [address] Phone Care Team Providers Care Straight Ruling Machine Operator Name Role Phone Joan Robins MD Primary [...] on file Legal Sex Female 10:36 AM BURNER MACHINE OPERATOR Gender Identity Not on file Sexual Orientation Not on file Last Filed Vital Signs Vital Sign Reading Time Taken Comments Blood Pressure 125/81 10/21/2018 12:15 PM BURNER MACHINE OPERATOR Pulse 72 10/21/2018 12:25 PM BURNER MACHINE OPERATOR Temperature 36.3 C (97.3 F) 10/21/2018 11:32 AM BURNER MACHINE OPERATOR Respiratory Rate 18 10/21/2018 12:25 PM BURNER MACHINE OPERATOR Oxygen Saturation 99% 10/21/2018 12:25 PM BURNER MACHINE OPERATOR Inhaled Oxygen Concentration - - Weight 60.3 kg (133 lb) 10/21/2018 11:32 AM BURNER MACHINE OPERATOR Height 170.2 cm (5' 7 ) 10/21/2018 11:32 AM BURNER MACHINE OPERATOR Body Mass Index 20.83 10/21/2018 11:32 AM BURNER MACHINE OPERATOR Plan of Treatment Health Maintenance Due [...] age to complete this topic Insurance MEDICAID [employer] Care Teams Straight Ruling Machine Operator Relationship Specialty Start Date End Date Joan Robins MD [id number] [id number] PCP - General Internal Medicine 10/21/18
--- OUTSIDE RECORDS SUMMARY | 2025-01-03 18:15 | XMS_ITS | Continuity of Care Document ---
Author Organization [facility] Address [address] [place] [address] Phone Care Team Providers Care Upstream Biomanufacturing Technician Name Role Phone Sandie Briggs MD Unavailable [...] Encounter [facility], [address], [place], [place], [address] , [place] tel: [phone] [facility] No Information [address], [place], [place], [address], [place]. [phone] OFFICE/OUTPATI ENT VISIT, EST [facility], [address], [place], [place], [address] , [place] tel: [phone] [facility] medication refill (chief complaint) Bipolar disorderHigh risk medication use 3 No Information [facility], [address], [place], [place], [address] , [place] tel: [phone] Dental [facility]as[facility] Dental examination 2 No Information OFFICE OUTPT EST 25 MIN [facility], [address], [place], [place], [address] , [place] tel: [phone] [facility] referrals (chief complaint)b ipolar disorder (chief complaint) Bipolar disorderAlcohol abuseRoutine adult health maintenanceNeed for prophylactic vaccination and inoculation against Streptococcus pneumoniae [pneumococcus]C ommon wart 2 No Information OFFICE/OUTPATI ENT VISIT, EST [facility], [address], [place], [place], [address] , [place] tel: [phone] [facility] test results (chief complaint) Genital herpes, unspecifiedBeni gn neoplasm of vulvaNeed for prophylactic vaccination and inoculation, influenza 2 No Information [facility], [address], [place], [place], [address] , [place] tel: [phone] [facility] Soul[facility] Velasquez Dental examination 2 No Information OFFICE/OUTPATI ENT VISIT, EST [facility], [address], [place], [place], [address] , [place] tel: [phone] [facility] irritated spot on vulva (chief complaint) Benign neoplasm of vulva 2 No Information 1ST COMPRE PREV MED E/M NEW PT 40-64 [facility], [address], [place], [place], [address] , [place] tel: [phone] [facility] annual visit (chief complaint) Routine gynecological examination 2 No Information [facility], [address], [place], [place], [address] , [place] tel: [phone] [facility]as[facility] No Information 1 No Information OFFICE OUTPT EST 25 MIN [facility], [address], [place], [place], [address] , [place] tel: [phone] [facility] pain (chief complaint)E R f/u (chief complaint) Other and unspecified alcohol dependence, continuous drinking behavior 1 No Information ENVIRONMENTAL IVNTJ MGMT PURPOSES PSYC PT [facility], [address], [place], [place], [address] , [place] tel: [phone] [facility] No Information 0 No Information FAMILY PSYCHOTHERAPY (CONJOINT PSYCHOTHERAPY) (WITH PATIENT PRESENT) [facility], [address], [place], [place], [address] , [place] tel: [phone] [facility] substance abuse (chief complaint) No Information 0 No Information OFFICE/OUTPATI ENT VISIT, EST [facility], [address], [place], [place], [address] , [place] tel: [phone] [facility] alcohol (chief complaint) Other and unspecified alcohol dependence, continuous drinking behavior 0 No Information OFFICE/OUTPATI ENT VISIT, EST [facility], [address], [place], [place], [address] , [place] tel: [phone] [facility] dizziness (chief complaint)a lcohol abuse (chief complaint) Other and unspecified alcohol dependence, continuous drinking behaviorDizzine ss and giddiness 0 No Information [facility], [address], [place], [place], [address] , [place] tel: [phone] [facility] depression (chief complaint) Major depressive affective disorder, recurrent episode, moderate degreeOther and unspecified alcohol dependence, continuous drinking behaviorUnspeci fied personality disorder 0 No Information OFFICE/OUTPATI ENT VISIT, NEW [facility], [address], [place], [place], [address] , [place] tel: [phone] [facility] REFERRED BY CASA DE DAY (chief complaint)M EDICATION NEEDED (chief complaint) Issue of repeat prescriptions 0 Juan Pablo [facility] [address], [place], [place], [address], [place]. [phone] [facility], [address], [place], [place], [address] , [place] tel: [phone] Care Guidelines Aly-0 1-190 1 No Information [...] TSH. Due on due Referral Referred To: [facility] Ordered: Referral: [facility]. Psychiatry. Evaluate and treat. ordered Referral Referred To: Josse Carrillo MD [address] [place], [place], [phone] Ordered: Referral: Josse Carrillo MD. Psychiatry. Evaluate and treat. ordered Referral Referred To: [facility] [address], [place], [id number] Ordered: Referral: [facility] [place]. Radiology. Diagnostic testing. Appointment date/timeframe: 04/12/2012 ordered Referral Referred To: Anupam Sher MD [address] [place], [place], [phone] Ordered: Referral: Anupam Sher MD. Psychiatry. Appointment [...]
--- OUTSIDE RECORDS SUMMARY | 2025-01-03 18:15 | XMS_ITS | Clinical Summary ---
Author Organization [facility] [employer] Address [address] [place] [address] Care Team Providers Care Change Of Address Clerk Name Role Phone Kerry Coffman DO Primary Care Provider [phone] Kerry Coffman DO Unavailable [phone] Source Comments [facility],non-owned Affiliates and Associated Physician Practices is amultiple site organization consisting of ambulatory clinics and hospital sitesin [place], [place], [place] and [place]. This disclosure is being madepursuant to the Care Everywhere program and may not contain all information available regarding this patient. Last updated 18.[facility] [employer] Allergies Active Allergy Reactions Criticality Noted Date [...] hyperglycemia, without long-term current use of insulin ([facility]) Use 1 Each 2 times daily 12/08/2022 [...] tabletIndications: Bipolar affective disorder, remission status unspecified ([facility]) Take 1 (one) tablet by mouth [...] route every 30 days Active blood glucose (DormirTouch Ultra) test stripIndications:T ype 2 diabetes mellitus with hyperglycemia, without long-term current use of insulin ([facility]) USE 1 STRIP TO CHECK GLUCOSE [...] rhinitis, unspecified seasonality, unspecified trigger,Chronic daily headache [place] 2 (two) sprays into each nostril once daily 16 g 6 08/11/2024 Active azelastine (Astelin) 0.1 % nasal sprayIndications:C hronic rhinitis,Allergic rhinitis, unspecified seasonality, unspecified trigger,Chronic daily headache [place] 1 (one) spray into each nostril 2 [...] CDT - 12/23/2024 2:22 PM CDT Emergency [facility] [address] [place] [address] Cornelio Richardson MD Ground-level fall (Primary Dx); Acute pain of left shoulder; Left hip pain Discharge Disposition: Home or Self Care 12/23/2024 Travel 12/19/2024 Telephone [facility] - Endocrinology [address] [facility], [place] [address] Haydee Simmons, RN Results 12/13/2024 Orders Only [facility] - Neurology [address] [place] [phone] Moncho Salcedo APRN-CNP Cognitive decline 12/08/2024 9:17 AM [facility] - 12/08/2024 11:59 PM [facility] Hospital Encounter [facility] CAT SCAN [address] [place] [address] Cornelio Lima MD Discharge Disposition: Home or Self Care 12/08/2024 9:17 AM [facility] - 12/08/2024 11:59 PM [facility] Hospital Encounter [facility] CAT SCAN [address] [place] [address] Cornelio Lima MD Discharge Disposition: Home or Self Care 12/08/2024 7:08 AM [facility] - 12/08/2024 9:16 AM [facility] Hospital Encounter [facility] [address] [place] [address] Cornelio Lima MD Discharge Disposition: Home or Self Care 12/08/2024 Travel 11/28/2024 Telephone [facility] - Neurology [address] [place] [phone] Moncho Salcedo APRN-PROFESSOR OF HISTORY Medication Prior Auth Request (Emgality) 11/23/2024 10:58 AM [facility] - 11/23/2024 11:59 PM [facility] Hospital Encounter [facility] [address]SM [address] [place] [address] Cornelio Lima MD Discharge Disposition: Home or Self Care 11/23/2024 10:58 AM [facility] - 11/23/2024 11:59 PM [facility] Hospital Encounter [facility] [address] [place] [address] Cornelio Lima MD Discharge Disposition: Home or Self Care 11/23/2024 10:00 AM [facility] Office Visit [facility] - Orthopedics [address] [place] [phone] Cornelio Lima MD Lumbar spine pain (Primary Dx); Lumbar spondylosis; Spondylolisthesis of lumbar region; Degenerative scoliosis in adult patient; Cervical spondylosis with myelopathy; Cervicalgia 11/23/2024 9:49 AM [facility] - 11/23/2024 10:57 AM [facility] Hospital Encounter [facility] [address] [address] [facility] [place] [address] Cornelio Lima MD Discharge Disposition: Home or Self Care 11/23/2024 Travel 11/14/2024 Telephone [facility] - Neurology [address] [place] [phone] Moncho Salcedo APRN-CNP Medication Clarification (Emgaltiy) 11/11/2024 10:15 AM [facility] - 11/11/2024 11:00 AM [facility] Surgery [facility] ENDOSCOPY [address] [place] [address] Sixto Cornell MD COLONOSCOPY SCREEN--extended prep 11/11/2024 10:00 AM [facility] Anesthesia Event [facility] ENDOSCOPY [address] [place] [address] Doug Forrester MD Dobbs, Kristin L, APRN-LEAD DATA ARCHITECT 11/11/2024 8:14 AM [facility] - 11/11/2024 11:24 AM [facility] Hospital Encounter [facility] OP [address] [place] [address] Sixto Cornell MD Surgery General Discharge Disposition: Home or Self Care 11/11/2024 Travel 11/04/2024 Patient Outreach [facility] END[facility]COPY [address] [place] [address] Samantha Monterroso RN 11/02/2024 3:30 PM [facility] Office Visit [facility] - Neurology [address] [place] [phone] Moncho Salcedo APRN-CNP Intractable 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 (Primary Dx) 11/02/2024 Travel 10/26/2024 10:30 AM [facility] Office Visit [facility] - GI [address] [facility], [place] [phone] Yolanda Greer APRN-ARELY Chronic diarrhea (Primary Dx) 10/26/2024 Travel 10/25/2024 Orders Only [facility] ENDOSCOPY [address] [place] [phone] Wendy Humphrey RN 10/24/2024 Travel 10/20/2024 Telephone [facility] - Centralized Scheduling [address] [place] [phone] Moncho Salcedo APRN-ARELY Appointment 10/06/2024 Orders Only [facility] OP [address] [place] [phone] Alok Christie III, MD Spondylolisthesis at L4-L5 [...] Sex Assigned at Female 09/16/2024 2:41 PM [facility] Gender Identity Female 09/16/2024 2:41 PM [facility] Sexual Orientation Straight 09/16/2024 2: 41 PM [facility] Last Filed Vital Signs Vital Sign Reading [...] Description 01/25/2025 10:30 AM CDT [facility] [address] [place] [address], [place] [phone] Yolanda Greer, CERTIFIED NURSING ATTENDANT-PROFESSOR OF HISTORY [address] [place] [phone] 01/31/2025 11:00 AM CDT Office Visit [facility] - Internal Medicine [address], [address] [phone] Kerry Coffman DO [address] [place] [address] 2L DIV OF [place] [address] 02/09/2025 11:15 AM CDT Office [facility] Ophthal[facility] [address] [place] [phone] Percy Matute MD [address] [place] [address] DEPT [place] [phone] 02/09/2025 4:00 PM CDT Office Visit [facility] - Allergy [address] [place] [address], [place] [phone] Papito Morales MD [address] [place] [address] 2L DIV OF ALLERGY/[place] [address] 03/02/2025 1:00 PM CDT Office Visit [facility] - Neurology [address] [place] [address] [place] [phone] Moncho Salcedo, CERTIFIED NURSING ATTENDANT-PROFESSOR OF HISTORY [address] [place] [address] 1[address] [place] [phone] 04/13/2025 3:00 PM CDT Office Visit [facility] - Allergy [address] [place] [address], [place] [phone] Papito Morales MD [address] [place] [address] 2L DIV [place] ALLERGY/[place] [address] Health Maintenance Due Date Last Done Comments [...] Management General On track( 025 10:42 AM [facility]) Marion Scott, RN Note: Expected end date: ongoing Interventions: Take all medications as prescribed Medical Devices Implanted Type Area Planning Supervisor Device Identifier Shelf Expiration Date Model / Serial / Lot Slnt Dura Duraseal Pg Trilysine Amine 5 Implanted:Qty: 1 on 03/17/2022 by Jackelyn Yang MD at [facility] Left: Cranial [place] 08/11/2023 [id number] / / [id number] Guardian Branial Yuriy Hole Cover Sys Implanted:Qty: 1 on 03/17/2022 by Jackelyn Yang MD at [facility] Left: Cranial [employer] 01/01/2024 6010 / / [id number] Directional Lead Implanted:Qty: 1 on 03/17/2022 by Shailesh North MD at [facility] Left: Cranial [employer] 09/25/2023 6172 / [id number] / Lead Extension Implanted:Qty: 1 on 03/24/2022 by Shailesh North MD at [facility] Left: Neck [employer] 01/15/2024 [id number] / / [id number] Generator Implanted:Qty: 1 on 03/24/2022 by Shailesh North MD at [facility] Left: Chest [employer] 11/19/2023 6662 / / [id number] [place] Spnl 140mm 6.35mm Ti Str Implanted:Qty: 1 on 08/29/2022 by Shailesh North MD at [facility] Right: Scalp [employer] 04/02/2024 6010 / / [employer] Dbs System Implanted:Qty: 1 on 08/29/2022 by Joshua Gill MD at [facility] Right: Brain 03/19/2024 6172 / [id number] / Description:cost per [facility] [employer] System Implanted:Qty: 1 on 08/29/2022 by Joshua Gill MD at [facility] Right: Chest Wall 04/23/2024 6373 / [id number] / Description:cost per levar Procedures Procedure Name [...] OR MORE REGIONS Routine 12/08/2024 10:27 AM [facility] Lumbar spine pain CT LUMBAR POST MYELOGRAM Routine 12/08/2024 10:25 AM [facility] Lumbar spine pain CT CERVICAL POST MYELOGRAM Routine 12/08/2024 10:25 AM [facility] Lumbar spine pain XR SPINE ENTIRE 2 OR 3VW Routine 11/23/2024 11:09 AM [facility] Lumbar spine pain XR CERVICAL SPINE 2 OR 3VW Routine 11/23/2024 11:06 AM [facility] Lumbar spine pain XR LUMBAR SPINE 2 OR 3VW Routine 11/23/2024 10:00 AM [facility] Lumbar spine pain PATHOLOGY TISSUE Routine 11/11/2024 10:1 6 AM [facility] Screen for colon cancer MA COLOREC CANC SCRN,SCOPY NOT HI RISK 11/11/2024 9:55 AM [facility] Screen for colon cancer ENDOSCOPY, COLON, SCREENING Routine 11/11/2024 9:52 AM [facility] GLUCOSE - POINT OF CARE Routine 11/11/2024 9:19 AM [facility] CALPROTECTIN FECAL Routine 11/07/2024 3: 52 PM [facility] Chronic diarrhea CULTURE STOOL PANEL Routine 11/07/2024 3 :52 PM [facility] Chronic diarrhea C DIFFICILE CYTOTOXIN Routine 11/07/2024 3:51 PM [facility] Chronic diarrhea PROC DEEP BRAIN STIMULATOR Routine 11/03/2024 2:08 PM [facility] Intractable chronic migraine with aura with status [...] Sensitive <3 <=14 ng/L 12/23/2024 11:21 AM [facility] Delta Troponin I HS 12/23/2024 11:21 AM [facility] Comment:Delta value intentio yasir not calculated. Baseline to 1 hour specimen collection interval exceeded. Blood BLOOD SPECIMEN / Unknown Venipuncture / Unknown 12/23/2024 10:40 AM CDT 12/23/2024 10:44 AM T Yuval Krueger MD LAB - CHEMISTRY [facility] [address] [address], [facility] [phone] * (ABNORMAL) URINALYSIS REFLEX TO MICROSCOPIC NO CULTURE (12/23/2024 10:21 AM CDT) Color UA Colorless(A ) Yellow, Straw 12/23/2024 10:41 AM [facility] Clarity UA Clear Clear 12/23/2024 10:41 AM [facility] Glucose UA Normal Normal 12/23/2024 10:41 AM [facility] Bilirubin UA Negative Negative 12/23/2024 10:41 AM [facility] Ketone UA Negative Negative 12/23/2024 10:41 AM [facility] Specific [place] UA <1.005(L) 1.005 - 1.030 12/23/2024 10:41 AM [facility] Blood UA Negative Negative 12/23/2024 10:41 AM [facility] pH UA 7.5 5.0 - 9.0 pH 12/23/2024 10:41 AM [facility] Protein UA Negative Negative 12/23/2024 10:41 AM [facility] Urobilinogen UA Normal Normal mg/dL 12/23/2024 10:41 AM [facility] Nitrite UA Negative Negative 12/23/2024 10:41 AM [facility] Leukocyte UA Negative Negative 12/23/2024 10:41 AM [facility] Urine URINE SPECIMEN OBTAINED BY CLEAN CATCH PROCEDURE / Unknown Collection / Unknown 12/23/2024 10:21 AM CDT 12/23/2024 10:31 AM CDT Yuval Krueger MD LAB - URINALYSIS ORD ERABLES [facility] [address] [place] [address], [facility] [phone] * CT CERVICAL SPINE WO CONTRAST (12/23/2024 9:33 AM CDT) Anatomical Region Laterality Modality Spine Computed Tomogra phy 12/23/2024 9:33 AM CDT Impressions 12/23/2024 11:16 AM CDT IMPRESSION: 1. No acute intracranial process. 2. No evidence of acute fracture in the cervical spine. 3. Multiple chronic findings as detailed in the report. > Dictated by Balaji Browne MD (R D Engineer), 12/23/2024 9:47 AM. I, Masha Alexandra MD have personally reviewed and interpreted this examination/study. > Interpreting Provider: Masha Alexandra MD on 12/23/2024 11:16 AM Narrative 12/23/2024 11:16 AM CDT PROCEDURE: CT HEAD WO CONTRAST, CT CERVICAL SPINE WO CONTRAST, DATE/TIME OF EXAM: 12/23/2024 9:33 AM, LOCATION [facility] INDICATION: W18.30XA: Ground-level fall EXAMINATION: 1. Computed [...] CONTRAST,DATE/TIME OF EXAM: 12/23/2024 9:33 AM, LOCATION [facility] INDICATION: W18.30XA: Ground-level fall EXAMINATION: 1. Computed [...] report. > Dictated by Balaji Browne MD (R D Engineer), 12/23/2024 9:47 AM. Masha Gutierrez MD [...] report. > Dictated by Balaji Browne MD (R D Engineer), 12/23/2024 9:47 AM. I, Masha Alexandra MD have personally reviewed and interpreted this examination/study. > Interpreting Provider: Masha Alexandra MD on 12/23/2024 11:16 AM Narrative 12/23/2024 11:16 AM CDT PROCEDURE: CT HEAD WO CONTRAST, CT CERVICAL SPINE WO CONTRAST, DATE/TIME OF EXAM: 12/23/2024 9:33 AM, LOCATION [facility] INDICATION: W18.30XA: Ground-level fall EXAMINATION: 1. Computed [...] CONTRAST,DATE/TIME OF EXAM: 12/23/2024 9:33 AM, LOCATION [facility] INDICATION: W18.30XA: Ground-level fall EXAMINATION: 1. Computed [...] report. > Dictated by Balaji Browne MD (R D Engineer), 12/23/2024 9:47 AM. I, Masha Alexandra MD have personally reviewed and interpreted this examination/study. > Interpreting Provider: Masha Alexandra MD on 12/23/2024 11:16 AM Yuval Krueger MD CT ORDERABLES * TROPONIN-I HIGH SENSITIVE BASELINE + 1HR (12/23/2024 9:06 AM CDT) [facility] Troponin I High Sensitive <3 <=14 ng/L 12/23/2024 10:05 AM [facility] Blood BLOOD SPECIMEN / Unknown Venipuncture / Unknown 12/23/2024 9:06 AM CDT 12/23/2024 9:27 AM CDT Yuval Krueger MD LAB - CHEMISTRY SOT[facility] PAT[facility] Organization Address City/State/ZIP Co de Phone Number [address] [address], [facility] [phone] * (ABNORMAL) CBC W AUTO DIFFERENTIAL (12/23/2024 9:06 AM CDT) [facility] WBC 4.9 4.0 - 10.7 x10E9/L 12/23/2024 10:06 AM [facility] RBC Count 4.26 3.90 - 5.20 x10E12/L 12/23/2024 10:06 AM [facility] Hemoglobin 13.2 11.9 - 15.8 g/dL 12/23/2024 10:06 AM [facility] Hematocrit 39.6 34.8 - 46.1 % 12/23/2024 10:06 AM [facility] MCV 93.0 80.0 - 98.0 fL 12/23/2024 10:06 AM [facility] MCH 31.0 26.7 - 33.6 pg 12/23/2024 10:06 AM [facility] MCHC 33.3 31.7 - 36.3 g/dL 12/23/2024 10:06 AM [facility] RDW-CV 13.3 11.3 - 14.8 % 12/23/2024 10:06 AM [facility] Platelet Count 12/23/2024 10:06 AM [facility] Comment:Platelets clumped on slide but appears adequate. Recommend repeat with a sodium citrate blue top tube. MPV 12/23/2024 10:06 AM [facility] Comment:Unable to report Neutrophil % 69.5 41.0 - 74.0 % 12/23/2024 10:06 AM [facility] Lymphocyte % 16.6(L) 17.0 - 47.0 % 12/23/2024 10:06 AM [facility] Monocyte % 10.1 3.0 - 11.0 % 12/23/2024 10:06 AM [facility] Eosinophil % 2.4 0.0 - 7.0 % 12/23/2024 10:06 AM [facility] Basophil % 1.0 0.0 - 1.6 % 12/23/2024 10:06 AM [facility] Immature Granulocytes % 0.4 0.0 - 1.0 % 12/23/2024 10:06 AM [facility] Neutrophil Absolute 3.43 1.60 - 7.50 x10E9/L 12/23/2024 10:06 AM [facility] Lymphocyte Absolute 0.82(L) 1.00 - 4.40 x10E9/L 12/23/2024 10:06 AM [facility] Monocyte Absolute 0.50 0.15 - 1.00 x10E9/L 12/23/2024 10:06 AM [facility] Eosinophil Absolute 0.12 0.00 - 0.60 x10E9/L 12/23/2024 10:06 AM [facility] Basophil Absolute 0.05 0.00 - 0.13 x10E9/L 12/23/2024 10:06 AM [facility] Blood BLOOD SPECIMEN / Unknown Venipuncture / Unknown 12/23/2024 9:06 AM CDT 12/23/2024 9:27 AM T Yuval Krueger MD LAB - HEMATOLOGY ORD ERABLES [facility] [address] [place] [address], [facility] [phone] * (ABNORMAL) COMPREHENSIVE METABOLIC PANEL (12/23/2024 9:06 AM T) BUN 9 7 - 26 mg/dL 12/23/2024 10:02 AM [facility] Creatinine 0.87 0.56 - 0.96 mg/dL 12/23/2024 10:02 AM [facility] Sodium 143 136 - 145 mmol/L 12/23/2024 10:02 AM [facility] Potassium 4.4 3.5 - 4.5 mmol/L 12/23/2024 10:02 AM [facility] Chloride 104 98 - 107 mmol/L 12/23/2024 10:02 AM [facility] CO2 31(H) 22 - 29 mmol/L 12/23/2024 10:02 AM [facility] Glucose 97 70 - 99 mg/dL 12/23/2024 10:02 AM [facility] Calcium 9.5 8.4 - 10.2 mg/dL 12/23/2024 10:02 AM [facility] Protein Total 6.7 6.0 - 8.3 g/dL 12/23/2024 10:02 AM [facility] Albumin 3.8 3.4 - 5.0 g/dL 12/23/2024 10:02 AM [facility] Bilirubin Total 0.4 0.2 - 1.2 mg/dL 12/23/2024 10:02 AM [facility] Alkaline Phosphatase 116 40 - 150 U/L 12/23/2024 10:02 AM [facility] ALT 30 5 - 55 U/L 12/23/2024 10:02 AM [facility] AST 32 5 - 34 U/L 12/23/2024 10:02 AM [facility] Anion Gap 8 6 - 16 12/23/2024 10:02 AM [facility] BUN/Creatinine Ratio 10 7 - 23 12/23/2024 10:02 AM [facility] Osmolality Calculated 295 275 - 295 mOsm/kg 12/23/2024 10:02 AM [facility] Albumin/Globulin Ratio 1.3 1.1 - 2.3 12/23/2024 10:02 AM [facility] eGFR by CKD-EPI 72(L) >=90 mL/min/1.7 3 m2 12/23/2024 10:02 AM [facility] Blood BLOOD SPECIMEN / Unknown Venipuncture / Unknown 12/23/2024 9:06 AM CDT 12/23/2024 9:27 AM CDT Yuval Krueger MD LAB - CHEMISTRY [facility] Performing Organization Address City/[facility]/ZIP Co de Phone Number [facility] [address] [place] [address], [facility] [phone] * EKG 12-LEAD (12/23/2024 9:05 AM CDT) Ventricular Rate 56 BPM [facility] Atrial Rate 56 BPM [facility] P-R Interval 176 ms [facility] QRS Duration ms 82 ms [facility] Q-T Interval ms 450 ms [facility] QTC Calculation (Bezet) 434 ms [facility] Calculated P [place] 45 degrees [facility] Calculated R [place] 9 degrees [facility] Calculated T [place] 54 degrees [facility] Interpretation EKG SINUS BRADYCARDIA LOW VOLTAGE QRS BORDERLINE ECG NO PREVIOUS ECGS AVAILABLE Confirmed by HA RENDON MDSHORE ([id number]) on 12/25/2024 12:16:38 PM [facility] 12/23/2024 9:05 AM CDT 12/25/2024 12:16 PM CDT Yuval Krueger MD ECG ORDERABLES Performing Organization Address City/[facility]/ZIP Co de Phone Number [facility] * XR Tibia Fibula Left 2Vw [...] DATE/TIME OF EXAM: 12/23/2024 8:58 AM, LOCATION [facility] INDICATION: W18.30XA: Ground-level fall ADDITIONAL CLINICAL INFORMATION: [...] XR TIBIA FIBULA LEFT 2VW, XR KNEE [id number] OR LESS, XR ANKLE LEFT 3VW OR MORE, DATE/TIME OF EXAM: 12/23/2024 8:58AM, LOCATION [facility] INDICATION: W18.30XA: Ground-level fall ADDITIONAL CLINICAL INFORMATION: [...] DATE/TIME OF EXAM: 12/23/2024 9:00 AM, LOCATION [facility] INDICATION: W18.30XA: Ground-level fall ADDITIONAL CLINICAL INFORMATION: [...] DATE/TIME OF EXAM: 12/23/2024 9:00 AM, LOCATION [facility] INDICATION: W18.30XA: Ground-level fall ADDITIONAL CLINICAL INFORMATION: [...] DATE/TIME OF EXAM: 12/23/2024 9:00 AM, LOCATION [facility] INDICATION: W18.30XA: Ground-level fall ADDITIONAL CLINICAL INFORMATION: [...] DATE/TIME OF EXAM: 12/23/2024 9:00 AM, LOCATION [facility] INDICATION: W18.30XA: Ground-level fall ADDITIONAL CLINICAL INFORMATION: [...] DATE/TIME OF EXAM: 12/23/2024 8:58 AM, LOCATION [facility] INDICATION: W18.30XA: Ground-level fall ADDITIONAL CLINICAL INFORMATION: [...] XR TIBIA FIBULA LEFT 2VW, XR KNEE [id number] OR LESS, XR ANKLE LEFT 3VW OR MORE, DATE/TIME OF EXAM: 12/23/2024 8:58AM, LOCATION [facility] INDICATION: W18.30XA: Ground-level fall ADDITIONAL CLINICAL INFORMATION: [...] DATE/TIME OF EXAM: 12/23/2024 8:58 AM, LOCATION [facility] INDICATION: W18.30XA: Ground-level fall ADDITIONAL CLINICAL INFORMATION: [...] XR TIBIA FIBULA LEFT 2VW, XR KNEE [id number] OR LESS, XR ANKLE LEFT 3VW OR MORE, DATE/TIME OF EXAM: 12/23/2024 8:58AM, LOCATION [facility] INDICATION: W18.30XA: Ground-level fall ADDITIONAL CLINICAL INFORMATION: [...] DATE/TIME OF EXAM: 12/23/2024 8:58 AM, LOCATION [facility] INDICATION: W18.30XA: Ground-level fall ADDITIONAL CLINICAL INFORMATION: [...] DATE/TIME OF EXAM: 12/23/2024 8:58 AM, LOCATION [facility] INDICATION: W18.30XA: Ground-level fall ADDITIONAL CLINICAL INFORMATION: [...] DATE/TIME OF EXAM: 12/23/2024 8:58 AM, LOCATION [facility] INDICATION: W18.30XA: Ground-level fall ADDITIONAL CLINICAL INFORMATION: [...] XR TIBIA FIBULA LEFT 2VW, XR KNEE [id number] OR LESS, XR ANKLE LEFT 3VW OR MORE, DATE/TIME OF EXAM: 12/23/2024 8:58AM, LOCATION [facility] INDICATION: W18.30XA: Ground-level fall ADDITIONAL CLINICAL INFORMATION: [...] 2 or More Regions (12/08/2024 10:27 AM [facility]) Anatomical Region Laterality Modality Spine Digital Radiogra phy 12/08/2024 1:17 PM [facility] Impressions 12/13/2024 12:15 PM [facility] IMPRESSION: 1.Successful lumbar puncture for cervical and [...] degenerative disc and joint disease as detailed [id number] above, worse at L4-L5, as outlined. 2.Transitional anatomy as noted above. The report is dictated by Addi Arambula MD, (optometrist president/practice owner) Attending Physician: Dr. Magdalena Blackmon Associate Embalmer/Funeral Director: Dr. Addi Arambula MD, (optometrist president/practice owner) The procedure was performed by the: The housekeeper/laundry assistant, and the attending radiologist was present [...] 12/13/2024 12:15 PM Narrative 12/13/2024 12:15 PM [facility] PROCEDURE: FL MYELOGRAM 2 OR MORE REGIONS, CT LUMBAR POST MYELOGRAM, CT CERVICAL POST MYELOGRAM DATE/TIME OF EXAM: 12/08/2024 10:34 AM CLINICAL INFORMATION: PROCEDURE: FL MYELOGRAM 2 OR MORE REGIONS, CT LUMBAR POST MYELOGRAM, CT CERVICAL POST MYELOGRAM, DATE/TIME OF EXAM: 12/08/2024 10:34 AM, LOCATION [facility] INDICATION: M54.50: Lumbar spine pain ADDITIONAL CLINICAL INFORMATION: Ordering Provider Reason For Exam: myelopathy (accession [id number]), chronic low back pain (accession [id number]) Technologist Note: None. Additional: None. EXAMINATION: 1.Lumbar [...] The patient was then transferred to the health care sanitary technician unit for further observation and 2 [...] no high-grade central canal stenosis. There is ebuj-yq-kksxwdvb facet osteoarthritis. There is mild bilateral neural foraminal stenosis. Procedure Note Magdalena Blackmon MD - 12/13/2024 PROCEDURE: FL MYELOGRAM 2 OR MORE REGIONS, CT LUMBAR POST MYELOGRAM, CT CERVICAL POST MYELOGRAM DATE/TIME OF EXAM: 12/08/2024 10:34 AM CLINICAL INFORMATION: PROCEDURE: FL MYELOGRAM 2 OR MORE REGIONS, CTLUMBAR POST MYELOGRAM, CT CERVICAL POST MYELOGRAM, DATE/TIME OF EXAM:12/08/2024 10:34 AM, LOCATION [facility] INDICATION: M54.50: Lumbar spine pain ADDITIONAL CLINICAL INFORMATION: Ordering Provider Reason For Exam: myelopathy (accession [id number]), chronic low back pain (accession [id number]) Technologist Note: None. Additional: None. EXAMINATION: 1.Lumbar [...] well. The patient wasthen transferred to the health care sanitary technician unit for further observation and 2hours [...] island in the right aspect of the C4axldmjcft body. Vertebral bodies are normal in height [...] is no high-grade central canal stenosis. Thereis flzb-fu-eleubylm facet osteoarthritis. There is mild bilateral neural [...] 1.Multilevel degenerative disc and joint disease as onkcjsnsnprdu-vj-rftvn above, worse at L4-L5, as outlined. 2.Transitional anatomy as noted above. The report is dictated by Addi Arambula MD, (optometrist president/practice owner) Attending Physician: Dr. Magdalena Blackmon Associate Embalmer/Funeral Director: Dr. Addi Arambula MD, (optometrist president/practice owner) The procedure was performed by the: The housekeeper/laundry assistant, and the attending radiologist was present for allcritical and mariscal portions of the procedure, and was immediately [facility] during the entire procedure. The attending radiologist performed the following procedural activities: Dr. Magdalena Gutierrez was there and supervised mariscal portions of the procedure, not scrubbed. Magdalena Gutierrez MD have personally reviewed and interpretedthis examination/study. > Interpreting Provider: Magdalena Blackmon MD on 12/13/2024 12:15 PM Cornelio Lima MD FLUOROSCOPY OR DERABLES * CT Lumbar Post Myelogram (12/08/2024 10:25 AM [facility]) Anatomical Region Laterality Modality Spine Computed Tomogra phy 12/08/2024 1:17 PM [facility] Impressions 12/13/2024 12:15 PM [facility] IMPRESSION: 1.Successful lumbar puncture for cervical and [...] degenerative disc and joint disease as detailed pvysi-xo-tmohi above, worse at L4-L5, as outlined. 2.Transitional anatomy as noted above. The report is dictated by Addi Arambula MD, (optometrist president/practice owner) Attending Physician: Dr. Magdalena Blackmon Associate Embalmer/Funeral Director: Dr. Addi Arambula MD, (optometrist president/practice owner) The procedure was performed by the: The housekeeper/laundry assistant, and the attending radiologist was present [...] 12/13/2024 12:15 PM Narrative 12/13/2024 12:15 PM [facility] PROCEDURE: FL MYELOGRAM 2 OR MORE REGIONS, CT LUMBAR POST MYELOGRAM, CT CERVICAL POST MYELOGRAM DATE/TIME OF EXAM: 12/08/2024 10:34 AM CLINICAL INFORMATION: PROCEDURE: FL MYELOGRAM 2 OR MORE REGIONS, CT LUMBAR POST MYELOGRAM, CT CERVICAL POST MYELOGRAM, DATE/TIME OF EXAM: 12/08/2024 10:34 AM, LOCATION [facility] INDICATION: M54.50: Lumbar spine pain ADDITIONAL CLINICAL INFORMATION: Ordering Provider Reason For Exam: myelopathy (accession [id number]), chronic low back pain (accession [id number]) Technologist Note: None. Additional: None. EXAMINATION: 1.Lumbar [...] The patient was then transferred to the health care sanitary technician unit for further observation and 2 [...] no high-grade central canal stenosis. There is ofmk-aj-rcpbgpvl facet osteoarthritis. There is mild bilateral neural foraminal stenosis. Procedure Note Magdalena Blackmon MD - 12/13/2024 PROCEDURE: FL MYELOGRAM 2 OR MORE REGIONS, CT LUMBAR POST MYELOGRAM, CT CERVICAL POST MYELOGRAM DATE/TIME OF EXAM: 12/08/2024 10:34 AM CLINICAL INFORMATION: PROCEDURE: FL MYELOGRAM 2 OR MORE REGIONS, CTLUMBAR POST MYELOGRAM, CT CERVICAL POST MYELOGRAM, DATE/TIME OF EXAM:12/08/2024 10:34 AM, LOCATION [facility] INDICATION: M54.50: Lumbar spine pain ADDITIONAL CLINICAL INFORMATION: Ordering Provider Reason For Exam: myelopathy (accession [id number]), chronic low back pain (accession [id number]) Technologist Note: None. Additional: None. EXAMINATION: 1.Lumbar [...] well. The patient wasthen transferred to the health care sanitary technician unit for further observation and 2hours [...] island in the right aspect of the I2fmpgowhke body. Vertebral bodies are normal in height [...] is no high-grade central canal stenosis. Thereis swhj-lm-idwuvbkg facet osteoarthritis. There is mild bilateral neural [...] 1.Multilevel degenerative disc and joint disease as xydrezpnawall-pg-jimrz above, worse at L4-L5, as outlined. 2.Transitional anatomy as noted above. The report is dictated by Addi Arambula MD, (optometrist president/practice owner) Attending Physician: Dr. Magdalena Blackmon Associate Embalmer/Funeral Director: Dr. Addi Arambula MD, (optometrist president/practice owner) The procedure was performed by the: The housekeeper/laundry assistant, and the attending radiologist was present [...] CT Cervical Post Myelogram (12/08/2024 10:25 AM [facility]) Anatomical Region Laterality Modality Spine Computed Tomogra phy 12/08/2024 1:17 PM [facility] Impressions 12/13/2024 12:15 PM [facility] IMPRESSION: 1.Successful lumbar puncture for cervical and [...] degenerative disc and joint disease as detailed prvbm-re-xktfz above, worse at L4-L5, as outlined. 2.Transitional anatomy as noted above. The report is dictated by Addi Arambula MD, (optometrist president/practice owner) Attending Physician: Dr. Magdalena Blackmon Associate Embalmer/Funeral Director: Dr. Addi Arambula MD, (optometrist president/practice owner) The procedure was performed by the: The housekeeper/laundry assistant, and the attending radiologist was present [...] 12/13/2024 12:15 PM Narrative 12/13/2024 12:15 PM [facility] PROCEDURE: FL MYELOGRAM 2 OR MORE REGIONS, CT LUMBAR POST MYELOGRAM, CT CERVICAL POST MYELOGRAM DATE/TIME OF EXAM: 12/08/2024 10:34 AM CLINICAL INFORMATION: PROCEDURE: FL MYELOGRAM 2 OR MORE REGIONS, CT LUMBAR POST MYELOGRAM, CT CERVICAL POST MYELOGRAM, DATE/TIME OF EXAM: 12/08/2024 10:34 AM, LOCATION [facility] INDICATION: M54.50: Lumbar spine pain ADDITIONAL CLINICAL INFORMATION: Ordering Provider Reason For Exam: myelopathy (accession [id number]), chronic low back pain (accession [id number]) Technologist Note: None. Additional: None. EXAMINATION: 1.Lumbar [...] The patient was then transferred to the health care sanitary technician unit for further observation and 2 [...] no high-grade central canal stenosis. There is xbek-xl-nmjufigo facet osteoarthritis. There is mild bilateral neural foraminal stenosis. Procedure Note Magdalena Blackmon MD - 12/13/2024 PROCEDURE: FL MYELOGRAM 2 OR MORE REGIONS, CT LUMBAR POST MYELOGRAM, CT CERVICAL POST MYELOGRAM DATE/TIME OF EXAM: 12/08/2024 10:34 AM CLINICAL INFORMATION: PROCEDURE: FL MYELOGRAM 2 OR MORE REGIONS, CTLUMBAR POST MYELOGRAM, CT CERVICAL POST MYELOGRAM, DATE/TIME OF EXAM:12/08/2024 10:34 AM, LOCATION [facility] INDICATION: M54.50: Lumbar spine pain ADDITIONAL CLINICAL INFORMATION: Ordering Provider Reason For Exam: myelopathy (accession [id number]), chronic low back pain (accession [id number]) Technologist Note: None. Additional: None. EXAMINATION: 1.Lumbar [...] well. The patient wasthen transferred to the health care sanitary technician unit for further observation and 2hours [...] island in the right aspect of the Q6egasarvbc body. Vertebral bodies are normal in height [...] is no high-grade central canal stenosis. Thereis qrtc-kb-ccppaift facet osteoarthritis. There is mild bilateral neural [...] 1.Multilevel degenerative disc and joint disease as rhxfttntqfybh-rf-crsha above, worse at L4-L5, as outlined. 2.Transitional anatomy as noted above. The report is dictated by Addi Arambula MD, (optometrist president/practice owner) Attending Physician: Dr. Magdalena Blackmon Associate Embalmer/Funeral Director: Dr. Addi Arambula MD, (optometrist president/practice owner) The procedure was performed by the: The housekeeper/laundry assistant, and the attending radiologist was present for allcritical and mariscal portions of the procedure, and was immediately [facility] during the entire procedure. The attending radiologist performed the following procedural activities: IDr. Magdalena was there and supervised mariscal portions of the procedure, not scrubbed. IMagdalena MD have personally reviewed and interpretedthis examination/study. > Interpreting Provider: Magdalena Blackmon MD on 12/13/2024 12:15 PM Cornelio Lima MD CT ORDERABLES * XR Spine Entire 2 or 3Vw (11/23/2024 11:09 AM [facility]) Anatomical Region Laterality Modality Spine Radiographic Erna ging 11/23/2024 11:3 1 AM [facility] Impressions 11/23/2024 11:34 AM [facility] IMPRESSION: Mild scoliosis. > Interpreting Provider: Baljinder Henson MD on 11/23/2024 11:34 AM Narrative 11/23/2024 11:34 AM [facility] PROCEDURE: XR SPINE ENTIRE 2 OR 3VW [...] 10 degrees, a lower thoracic levo curve ldybdcobm46 degrees, and a lumbar dextro curve measuring [...] Spine 2 or 3Vw (11/23/2024 11:06 AM [facility]) Anatomical Region Laterality Modality Spine Radiographic Erna ging 11/23/2024 11:2 9 AM [facility] Impressions 11/23/2024 11:31 AM [facility] IMPRESSION: Moderate cervical spondylosis. > Interpreting Provider: Baljinder Henson MD on 11/23/2024 11:31 AM Narrative 11/23/2024 11:31 AM [facility] PROCEDURE: XR CERVICAL SPINE 2 OR 3VW [...] Spine 2 or 3Vw (11/23/2024 10:00 AM [facility]) Anatomical Region Laterality Modality Spine Computed Radiogr aphy 11/23/2024 10:3 8 AM [facility] Impressions 11/23/2024 10:39 AM [facility] IMPRESSION: Mild to moderate degenerative changes. > Interpreting Provider: Baljinder Henson MD on 11/23/2024 10:39 AM Narrative 11/23/2024 10:39 AM [facility] PROCEDURE: XR LUMBAR SPINE 2 OR 3VW [...] ORDERABLES * PATHOLOGY TISSUE (11/11/2024 10:16 AM [facility]) Case Report Surgical Pathology Report Case: [id number] Authorizing Provider: Sixto Cornell MD Collected: 11/11/2024 10:16 AM Ordering Location: [facility] Received: 11/11/2024 10:58 AM Pathologist: Kenyatta Norris MD Specimens: A) - Polyp Ascending, ascending colon polyp B) - Polyp Descending, descending colon polyps 11/14/2024 3:20 PM [facility] Final Diagnosis Large intestine, ascending colon polyp, biopsy (A): - Tubular adenoma Large intestine, descending colon polyps, biopsy (B): - Tubular adenoma(s), fragmented 11/14/2024 3:20 PM [facility] Microscopic Description and Comment Microscopic examination substantiates the final diagnosis. 11/14/2024 3:20 PM [facility] Clinical History The patient is a 69-year-old woman who presents for high risk colon cancer surveillance (personal history of colonic polyps). Operative procedure/findings: Colonoscopy - 2 mm ascending colon polyp, 4 and 5 mm descending colon polyps, resected and retrieved 11/14/2024 3:20 PM [facility] Gross Description The requisition [...] cassette labeled B1. RB 11/14/2024 3:20 PM [facility] Pathologist Location at [facility] [address] 11/14/2024 3:20 PM [facility] Disclaimer The performance characteristics of all immunohistochemical and indirect immunofluorescence stains (if any) cited in this report were determined by the Histopathology [facility] of [facility]. Some of these tests were developed [...] the attending (teaching) pathologist. 11/14/2024 3:20 PM [facility] Embedded Images 11/14/2024 3:20 PM [facility] Biopsy, NOS POLYP / Unknown 11/11/2024 1 0:16 AM [facility] 11/11/2024 10:58 AM [facility] Comment:Pre-op diagnosis: Screen for colon cancer [Z12.11] Biopsy, NOS POLYP / Unknown 11/11/2024 1 0:19 AM [facility] 11/11/2024 10:58 AM [facility] Comment:Pre-op diagnosis: Screen for colon cancer [Z12.11] Sixto Cornell MD LAB - PATHOLOGY/CYTO LOGY ORDERABLES Performing Organization Address City/State/[place] de Phone Number [facility] [address] [phone] * ENDOSCOPY, COLON, SCREENING (11/11/2024 9:52 AM [facility]) Report Endoscopy POC Endoscopy Department Report _ [...] bowel preparation was evaluated using the BBPS (Joffre Bowel Preparation Scale) with scores of: Right [...] non-mariscal portions. Procedure Code(s): --- Professional --- 38067, Colonoscopy, flexible; with removal of tumor(s), polyp(s), or other lesion(s) by snare technique 49119, 59, Colonoscopy, flexible; with biopsy, single or multiple Diagnosis Code(s): --- Professional --- Z86.010, Personal history of colonic polyps D12.2, Benign neoplasm of ascending colon D12.4, Benign neoplasm of descending colon K57.30, Diverticulosis of large intestine without perforation or abscess without bleeding CPT copyright 2021 [employer]. All rights reserved. The codes documented in this report are preliminary and upon ranger aide review may be revised to meet current compliance requirements. Sixto Cornell MD 11/11/2024 10:36:45 AM This report has been signed electronically. Note Initiated On: 11/11/2024 9:52 AM Number of Addenda: [address] [address] [facility] 11/11/2024 9:52 AM [facility] Sixto Cornell MD GI PROCEDURE ORDERAB LES Performing Organization Address City/[facility] Co de Phone Number [facility] * GLUCOSE - POINT OF CARE (11/11/2024 9:19 AM [facility]) Pathologist [facility] Glucose WB/POC 99 70 - 99 mg/dL 11/11/2024 9:54 AM [facility] Specimen Type Venous 11/11/2024 9:54 AM [facility] Blood BLOOD SPECIMEN / Unknown 11/11/2024 9:19 AM [facility] 11/11/2024 9:54 AM [facility] Sixto Cornell MD LAB - POINT OF CARE ORDERABLES Performing Organization Address [facility]/[place] de Phone Number [address] [address], [facility] [phone] * CALPROTECTIN FECAL (11/07/2024 3:52 PM [facility]) Pathologist [facility] [...] suggested for borderline values. Test Performed at: [facility] [address] [place] [address] JARRELL CALDERON MD,PHD,EDGARDO Stool STOOL SPECIMEN / Unknown 11/07/2024 3:52 PM [facility] 11/08/2024 4:47 AM [facility] Yolanda Greer CERTIFIED NURSING ATTENDANT-PROFESSOR OF HISTORY LAB - CRISTINA DY FLUID ORDERABLES Performing Organization Address [facility] Co de Phone Number [address] [address] * CULTURE STOOL PANEL (11/07/2024 3:52 PM [facility]) Campylobacter Antigen [facility] Comment: CAMPYLOBACTER SPP. AG,EIA Micro Number: [id number] Test Status: Final Specimen Source: Stool Specimen Quality: Adequate Campy Ag Result: Not Detected Reference Range: Not Detected EIA [facility] Comment: SHIGA TOXINS, EIA W/RFL TO E.COLI O157 CULTURE Micro Number: [id number] Test Status: Final Specimen Source: Stool Specimen Quality: Adequate Shiga Toxin: Not Detected Reference Range: Not Detected Culture [facility] Comment: SALMONELLA AND SHIGELLA, CULTURE Micro Number: [id number] Test Status: Final Specimen Source: Stool Specimen Quality: Adequate Result: No Salmonella or Shigella isolated Test Performed at: [facility] [address] SAROJ FAUSTIN MD Stool STOOL SPECIMEN / Unknown 11/07/2024 3:52 PM [facility] 11/07/2024 11:51 PM [facility] Yolanda Greer CERTIFIED NURSING ATTENDANT-PROFESSOR OF HISTORY LAB - ME CROBIOLOGY ORDERABLES Performing Organization Address [facility] Co de Phone Number [address] [address] * C DIFFICILE CYTOTOXIN (11/07/2024 3:51 PM [facility]) Cytotoxin Assay Stool NOT DETECTED [facility] Comment: [...] (GDH) with Reflex to PCR, order code 80674 or Clostridium difficile toxin B, Qualitative real time PCR, test code 65323 to be more sensitive and timely methods for the diagnosis of C. difficile colitis. For additional information, please refer to http://education.The Smartphone Physical/faq/NNX374 (This link is being provided for informational/ educational purposes only.) Test Performed at: [facility] [address] [place] [address] JARRELL CALDERON MD,PHD,EDGARDO Stool STOOL SPECIMEN / Unknown 11/07/2024 3:51 PM [facility] 11/08/2024 4:58 AM [facility] Yolanda Greer CERTIFIED NURSING ATTENDANT-PROFESSOR OF HISTORY LAB - ME CROBIOLOGY ORDERABLES Performing Organization Address City/[facility]/ZIP Co de Phone Number [facility] [address] [place] [address] * PROC DEEP BRAIN STIMULATOR (11/03/2024 2:08 PM [facility]) Narrative Moncho Salcedo APRN-PROFESSOR OF HISTORY - 11/03/2024 2:08 PM [facility] Moncho Salcedo APRN-PROFESSOR OF HISTORY 11/03/2024 4:00 PM Please see office notes for documentation- Thanks Moncho Salcedo CERTIFIED NURSING ATTENDANT-PROFESSOR OF HISTORY PROCEDURE/MINOR SURGICAL ORDERABLES * HEMOGLOBIN A1C - POINT OF CARE (AMB) [facility] (04/04/2024 11:34 AM CDT) Hemoglobin A1c POCT 5.4 % [address] BLOOD SPECIMEN / Unknown 04/04/2024 11:34 AM CDT Kerry Coffman DO LAB - POINT OF CARE ORDERABLES Performing Organization Address [facility] Co de Phone Number [address], [place] [address], [facility] [phone] * MICROALB/CREAT RATIO URINE RANDOM PANEL (02/05/2023 [...] within a diagnostic category. Test Performed at: [facility] [place] [address] [address] [place] [address] SAROJ FAUSTIN MD 02/05/2023 12:2 6 PM CDT 02/05/2023 12:27 PM CDT Marquise Adames MD LAB - URINE CHEMISTR Y ORDERABLES [facility] [address] [place] [address] from Last 3 Months or Most Recently Relevant to Health Maintenance Advance Directives * Full Code (Latest Code Status on File) Date Activated Date Inactivated Comments 08/29/2022 4:40 PM 08/31/2022 1:59 PM * Full Code Date Activated Date Inactivated Comments 03/17/2022 3:37 PM 03/19/2022 1:47 PM Care Teams Change Of Address Clerk Relationship Specialty Start Date End Date Kerry Coffman DO [address] OF [facility] [place] [address] PCP - General Internal Medicine 12/15/23 Kerry Coffman DO [address] OF [facility] [place] [address] PCP - [facility] P4P 12/10/24
--- OUTSIDE RECORDS SUMMARY | 2025-01-03 18:15 | XMS_ITS | Encounter Summary ---
Author Organization [facility] Address [address] [facility] [place] [address] Care Team Providers Care Line Appliance Assembler Name Role Phone Meghna Kerry Primary Care Provider [phone] Kerry Coffman DO Unavailable [phone] Reason for Visit * Reason Onset Date Comments Appointment 10/20/2024 Encounter Details Date Type Department Care Team (Late st Contact Info) Description 10/20/2024 Telephone [facility] - Centralized Scheduling [address] [place] [phone] Moncho Salcedo, GRATING MACHINE OPERATOR-SHOP MANAGER [address] [phone] Appointment Social History Tobacco Use [...] Sex Assigned at Female 09/16/2024 2:41 PM POWER PLANT ASSISTANT Gender Identity Female 09/16/2024 2:41 PM POWER PLANT ASSISTANT Sexual Orientation Straight 09/16/2024 2: 41 PM POWER PLANT ASSISTANT documented as of this encounter Functional [...] to schedule for a Short Procedure with TEMPORARY ADMINISTRATIVE ASSISTANT Settu in November. R PLANT ASSISTANT documented in this encounter Plan of Treatment Upcoming Encounters Date Type Department Care Team (Late st Contact Info) Description 01/25/2025 10:30 AM CDT Office Visit [facility] - GI [address] [place] [phone] Yolanda Greer, GRATING MACHINE OPERATOR-SHOP MANAGER [address] [place] [phone] 01/31/2025 11:00 AM CDT Office Visit [facility] - Internal Medicine [address] , [address] [phone] Kerry Coffman DO [address] [place] [address] DIV OF [facility] [place] [address] 02/09/2025 11:15 AM CDT Office Visit [facility] - Ophthalmology [address] [place] [phone] Percy Matute MD [address] [place] [address] [place] [phone] 02/09/2025 4:00 PM CDT Office Visit [facility] - Allergy [address] [place] [phone] Papito Morales MD [facility] 2L DIV OF ALLERGY/[place] [address] 03/02/2025 1:00 PM CDT Office Visit [facility] - Neurology [address] [place] [address], [place] [phone] Moncho Salcedo APRN-SHOP MANAGER [address] [place] [address] 1L [place] [phone] 04/13/2025 3:00 PM CDT Office Visit [facility] - Allergy [address] [place] [address], [place] [phone] Papito Morales MD [address] [place] [address] 2L DIV OF ALLERGY/[place] [address] documented as of this encounter Goals Goal Patient Goal Type Associated Problems Recent Progress Patient-Stated? Author Medication Management General On track( 025 10:42 AM POWER PLANT ASSISTANT) Marion Scott, RN Note: Expected end date: ongoing Interventions: Take all medications as prescribed documented as of this encounter Visit Diagnoses Not on filedocumented in this encounter Additional Health Concerns Infection Onset Date Last Indicated Resolved Time CDIFF Under Investigation 10/26/2024 11/07/2024 4:33 AM POWER PLANT ASSISTANT CDIFF Under Investigation 11/07/2024 11/07/2024 5:38 PM POWER PLANT ASSISTANT documented as of this encounter Care Teams Line Appliance Assembler Relationship Specialty Start Date End Date Kerry Coffman DO [address] [place] [address] 2L DIV [place] [address] PCP - General Internal Medicine 12/15/23 Kerry Coffman DO [address] [place] [address] 2L DIV [place] [address] PCP - Attributed-[facility] P4P 12/10/24 documented as of this encounter
--- OUTSIDE RECORDS SUMMARY | 2025-01-03 18:15 | XMS_ITS | Clinical Summary ---
Author Organization [facility] Address [address] [place] [phone] Care Team Providers Care Field Case Manager Name Role Phone Kerry Coffman Primary [...] 1 tablet (2 mg total) by mouth wireless cellular technician before breakfast 4 Active azelastine (ASTELIN) 137 [...] Department Care Team Description 11/21/2024 1:50 PM CREAM RIPENER - 11/21/2024 11:59 PM CREAM RIPENER Hospital Encounter [facility] [address] [place] [address] Discharge Disposition: Discharge to home or self care 11/21/2024 1:20 PM CREAM RIPENER Office Visit [facility] Rheumatology [address] [facility] 2nd Floor [address] [place] [phone] Marialuisa Franklin NP Rheumatoid arthritis with negative rheumatoid factor, involving unspecified site (HCC) (Primary Dx); High risk medication use 11/15/2024 10:40 AM CREAM RIPENER - 11/15/2024 11:59 PM CREAM RIPENER Hospital Encounter [facility] [address] [place] [address] High risk medication use Discharge Disposition: Discharge to home or self care 11/15/2024 10:30 AM CREAM RIPENER Infusion [facility] Infusion Therapy [address] [facility] 2nd Floor [address] [place] [phone] Rheumatoid arthritis with negative rheumatoid factor, involving unspecified site (HCC) (Primary Dx) 10/18/2024 10:30 AM CREAM RIPENER Infusion [facility] Infusion Therapy [address] [facility] 2[address] Floor [address] [place] [phone] Rheumatoid arthritis with negative rheumatoid factor, involving [...] on file Legal Sex Female 10:45 PM CREAM RIPENER Gender Identity Not on file Sexual Orientation Not on file Obstetrics History Last Filed Vital Signs Vital Sign Reading Time Taken Comments Blood Pressure 93/58 11/21/2024 1:01 PM CREAM RIPENER Pulse 63 11/21/2024 1:01 PM CREAM RIPENER Temperature 36.6 C (97.8 F) 11/21/2024 1:01 PM CREAM RIPENER Respiratory Rate - - Oxygen Saturation 99% 11/21/2024 1:01 PM CREAM RIPENER Inhaled Oxygen Concentration - - Weight 68 kg (150 lb) 11/21/2024 1:01 PM CREAM RIPENER Height 167.6 cm (5' 5.98 ) 11/21/2024 1:01 PM CS T Body Mass Index 24.22 11/21/2024 1:01 PM CREAM RIPENER Plan of Treatment Health Maintenance Due Date [...] Read Routine (OP Routine) 11/21/2024 2:04 PM CREAM RIPENER Rheumatoid arthritis with negative rheumatoid factor, involving unspecified site (HCC) XR HAND LEFT 3 OR MORE VIEWS Schedule Routine, Read Routine (OP Routine) 11/21/2024 2:04 PM CREAM RIPENER Rheumatoid arthritis with negative rheumatoid factor, involving unspecified site (HCC) XR WRIST RIGHT 3 OR MORE VIEWS Schedule Routine, Read Routine (OP Routine) 11/21/2024 2:04 PM CREAM RIPENER Rheumatoid arthritis with negative rheumatoid factor, involving unspecified site (HCC) XR WRIST LEFT 3 OR MORE VIEWS Schedule Routine, Read Routine (OP Routine) 11/21/2024 2:04 PM CREAM RIPENER Rheumatoid arthritis with negative rheumatoid factor, involving unspecified site (HCC) EGFR Routine 11/15/2024 1:46 PM CREAM RIPENER High risk medication use DIFFERENTIAL AUTO Routine 11/15/2024 1:4 6 PM CREAM RIPENER High risk medication use COMPREHENSIVE METABOLIC PANEL Routine 11/15/2024 1:46 PM CREAM RIPENER High risk medication use CBC WITH AUTO DIFFERENTIAL Routine 11/15/2024 1:46 PM CREAM RIPENER High risk medication use TB TEST, QUANTIFERON GOLD Routine 11/07/2024 3:55 PM CREAM RIPENER High risk medication use DEXA AXIAL SKELETON [...] 3 or More Views (11/21/2024 2:04 PM CREAM RIPENER) Anatomical Region Laterality Modality Upper Extremities, Hand Right Computed Radiography 11/21/2024 2:23 PM CREAM RIPENER Addenda Addendum by Pipe Valdivia MD on 11/22/2024 12:50 PM CREAM RIPENER ADDENDUM: Progressive polyarticular erosions involving the bilateral hands and wrists, most prominent in the carpus bilaterally. This is consistent with progressive inflammatory arthritis in this patient with known rheumatoid arthritis. Electronically signed by: Pipe Valdivia MD Impressions 11/21/2024 2:23 PM CREAM RIPENER 1. Healing fracture of the left 4th metacarpal shaft with shortening and mild ulnar displacement. 2. Polyarticular erosions involving the bilateral hands and wrists, most prominent in the carpus bilaterally. This is consistent with inflammatory arthritis. Statistically, this is most likely due to rheumatoid arthritis. Electronically signed by: Pipe Valdivia MD Narrative 11/21/2024 2:23 PM CREAM RIPENER EXAMINATION: XR WRIST LEFT 3 OR MORE [...] 3 or More Views (11/21/2024 2:04 PM CREAM RIPENER) Anatomical Region Laterality Modality Upper Extremities, Hand Left Computed Radiography 11/21/2024 2:23 PM CREAM RIPENER Addenda Addendum by Pipe Valdivia MD on 11/22/2024 12:50 PM CREAM RIPENER ADDENDUM: Progressive polyarticular erosions involving the bilateral hands and wrists, most prominent in the carpus bilaterally. This is consistent with progressive inflammatory arthritis in this patient with known rheumatoid arthritis. Electronically signed by: Pipe Valdivia MD Impressions 11/21/2024 2:23 PM CREAM RIPENER 1. Healing fracture of the left 4th metacarpal shaft with shortening and mild ulnar displacement. 2. Polyarticular erosions involving the bilateral hands and wrists, most prominent in the carpus bilaterally. This is consistent with inflammatory arthritis. Statistically, this is most likely due to rheumatoid arthritis. Electronically signed by: Pipe Valdivia MD Narrative 11/21/2024 2:23 PM CREAM RIPENER EXAMINATION: XR WRIST LEFT 3 OR MORE [...] 3 or More Views (11/21/2024 2:04 PM CREAM RIPENER) Anatomical Region Laterality Modality Upper Extremities, Wrist Right Compute d Radiography 11/21/2024 2:23 PM CREAM RIPENER Addenda Addendum by Pipe Valdivia MD on 11/22/2024 12:50 PM CREAM RIPENER ADDENDUM: Progressive polyarticular erosions involving the bilateral hands and wrists, most prominent in the carpus bilaterally. This is consistent with progressive inflammatory arthritis in this patient with known rheumatoid arthritis. Electronically signed by: Pipe Valdivia MD Impressions 11/21/2024 2:23 PM CREAM RIPENER 1. Healing fracture of the left 4th metacarpal shaft with shortening and mild ulnar displacement. 2. Polyarticular erosions involving the bilateral hands and wrists, most prominent in the carpus bilaterally. This is consistent with inflammatory arthritis. Statistically, this is most likely due to rheumatoid arthritis. Electronically signed by: Pipe Valdivia MD Narrative 11/21/2024 2:23 PM CREAM RIPENER EXAMINATION: XR WRIST LEFT 3 OR MORE [...] signed by: Pipe Valdivia MD Marialuisa Franklin [employer] IMG XR PROCEDURES Edited R esult - Final * XR Wrist Left 3 or More Views (11/21/2024 2:04 PM CREAM RIPENER) Anatomical Region Laterality Modality Upper Extremities, Wrist Left Compute d Radiography 11/21/2024 2:23 PM CREAM RIPENER Addenda Addendum by Pipe Valdivia MD on 11/22/2024 12:50 PM CREAM RIPENER ADDENDUM: Progressive polyarticular erosions involving the bilateral hands and wrists, most prominent in the carpus bilaterally. This is consistent with progressive inflammatory arthritis in this patient with known rheumatoid arthritis. Electronically signed by: Pipe Valdivia MD Impressions 11/21/2024 2:23 PM CREAM RIPENER 1. Healing fracture of the left 4th metacarpal shaft with shortening and mild ulnar displacement. 2. Polyarticular erosions involving the bilateral hands and wrists, most prominent in the carpus bilaterally. This is consistent with inflammatory arthritis. Statistically, this is most likely due to rheumatoid arthritis. Electronically signed by: Pipe Valdivia MD Narrative 11/21/2024 2:23 PM CREAM RIPENER EXAMINATION: XR WRIST LEFT 3 OR MORE [...] - Final * eGFR (11/15/2024 1:46 PM CREAM RIPENER) eGFR 67 >=60 mL/min/1. 73 m2 Comment: [...] last reviewed 2021. Blood 11/15/2024 1:46 PM CREAM RIPENER 11/15/2024 2:48 PM CREAM RIPENER us Marialuisa Franklin NP LAB BLOOD ORDERABLES Final Result [facility] Department [place] [address] * Differential, auto (11/15/2024 1:46 PM CREAM RIPENER) Neutrophil abs 3.2 1.5 - 6.5 K/cumm Imm gran abs 0.0 0.0 - 0.1 K/cumm [facility] Lymphocyte abs 1.1 0.8 - 3.3 K/cumm [facility] Monocyte abs 0.6 0.2 - 0.8 K/cumm [facility] Eosinophil abs 0.1 0.0 - 0.5 K/cumm [facility] Basophil abs 0.1 0.0 - 0.1 K/cumm [facility] Neutrophil pct 63.6 % [facility] Comment: Interpretive Data Percent cell count reference ranges are not reported, since discordance with absolute values may lead to misinterpretation of CBC data. Current Interpretive Data was last revised on 2018. Imm gran pct 0.4 % [facility] Comment: Interpretive Data Percent cell count reference ranges are not reported, since discordance with absolute values may lead to misinterpretation of CBC data. Current Interpretive Data was last revised on 2018. Lymphocyte pct 21.4 % [facility] Comment: Interpretive Data Percent cell count reference ranges are not reported, since discordance with absolute values may lead to misinterpretation of CBC data. Current Interpretive Data was last revised on 2018. Monocyte pct 11.4 % [facility] Comment: Interpretive Data Percent cell count reference ranges are not reported, since discordance with absolute values may lead to misinterpretation of CBC data. Current Interpretive Data was last revised on 2018. Eosinophil pct 2.0 % [facility] Comment: Interpretive Data Percent cell count reference ranges are not reported, since discordance with absolute values may lead to misinterpretation of CBC data. Current Interpretive Data was last revised on 2018. Basophil pct 1.2 % [facility] Comment: Interpretive Data Percent cell count reference ranges are not reported, since discordance with absolute values may lead to misinterpretation of CBC data. Current Interpretive Data was last revised on 2018. Blood 11/15/2024 1:46 PM CREAM RIPENER 11/15/2024 1:59 PM CREAM RIPENER Marialuisa Franklin [employer] LAB BLOOD ORDERABLES Final Result [facility] [place] [address] * CBC with auto differential (11/15/2024 1:46 PM CREAM RIPENER) Pathologist [facility] WBC 5.0 3.8 - 9.9 K/cumm Hgb 13.7 11.9 - 15.5 g/dL [facility] Hct 41.1 35.6 - 45.5 % [facility] Plt 256 150 - 400 K/cumm [facility] MPV 11.0 9.1 - 12.3 fL [facility] RBC 4.32 3.90 - 5.20 M/cumm [facility] MCV 95.1 81.3 - 96.4 fL [facility] MCH 31.7 27.1 - 33.3 pg [facility] MCHC 33.3 32.3 - 35.7 g/dL [facility] RDW CV 13.3 11.1 - 14.9 % [facility] RDW SD 47.1 35.7 - 48.1 fL [facility] NRBC abs 0.00 0.00 - 0.01 K/cumm [facility] Blood 11/15/2024 1:46 PM CREAM RIPENER 11/15/2024 1:59 PM CREAM RIPENER Marialuisa Franklin NP LAB BLOOD ORDERABLES Final Result [facility] Department [place] [employer] [place] [address] * Comprehensive metabolic panel (11/15/2024 1:46 PM CREAM RIPENER) Pathologist [facility] Sodium 139 135 - 145 mmol/L Potassium, pl 4.5 3.3 - 4.9 mmol/L [facility] Chloride 103 97 - 110 mmol/L [facility] CO2 26 22 - 32 mmol/L [facility] Anion gap 10 2 - 15 mmol/L [facility] BUN 15 6 - 25 mg/dL [facility] Creatinine 0.92 0.60 - 1.10 mg/dL [facility] Glucose 105 70 - 199 mg/dL [facility] Comment: Interpretive Data Fasting glucose >/= [...] Calcium 9.5 8.5 - 10.3 mg/dL [facility] Bilirubin, total 0.3 0.1 - 1.2 mg/dL [facility] Protein, pl 7.1 6.5 - 8.5 g/dL [facility] Albumin 4.3 3.5 - 5.0 g/dL [facility] Alk phos 121 40 - 130 Units/L [facility] ALT 19 7 - 45 Units/L [facility] AST 22 10 - 45 Units/L [facility] Blood 11/15/2024 1:46 PM CREAM RIPENER 11/15/2024 2:48 PM CREAM RIPENER us Marialuisa Franklin [employer] LAB BLOOD ORDERABLES Final Result [facility] Department [place] [address] * TB test, quantiferon gold (11/07/2024 3:55 PM CREAM RIPENER) [facility] QuantiFERON(R)-T B Gold Plus, 1 Tube [...] T-lymphocytes. For additional information, please refer to https://education.[employer]anberry/faq/KVH456 (This link is being provided for informational/ educational purposes only.) Blood 11/07/2024 3:55 PM CREAM RIPENER 11/07/2024 3:56 PM CREAM RIPENER Marialuisa Franklin NP LAB BLOOD ORDERABLES Final Result [facility] [address] [place] [address] * Dexa Axial Skeleton Bone Density 1 [...] by the International Society of Clinical Densitometry. [id number] Marialuisa Franklin [employer] IMG DXA PROCEDURES Final R esult * Hepatitis panel, acute (05/24/2020 9:45 AM CDT) Hep A IgM Nonreactive Nonreactive [facility] Comment: Interpretive Data: If Hep A IgM Ab is reported as Equivocal, a new sample should be drawn in two weeks for testing. Current interpretive data was last revised on 19. Hep B core IgM Nonreactive Nonreactive [facility] Comment: Interpretive Data If HepB Core IgM Ab is reported as Equivocal, a new sample should be drawn in two weeks for testing. Current interpretive data was last revised on 19. Hep C Ab Nonreactive Nonreactive [facility] Comment:Antibodies to HCV no t detected. Does NOT exclude the possibility of recent exposure to HCV. HepBsAg Nonreactive Nonreactive [facility] Blood specimen (specimen) 05/24/2020 9:45 AM CDT 05/24/2020 12:08 PM CDT Marialuisa Franklin NP LAB MICROBIOLOGY - GENERAL ORDERABLES Edited Result - Final [facility] Department [place] [address] from Last 3 Months or Most Recently Relevant to Health Maintenance Insurance IDPA [facility] MEDICARE ADVANTAGE [facility] Address: [address] [address] [place] [address] [facility] MEDICARE MEDICARE [facility] MEDICARE ADVANTAGE [facility] MEDIC[facility] Address: [address] [address] [place] [address] Care Teams Field Case Manager Relationship Specialty Start Date End Date Kerry Coffman DO [address] [place] [address] PCP - General Internal Medicine 04/19/24
== END 2025-01-03 15:46 | disposition home or self-care (01) ==
PROVIDERS: Visit Provider Physician Assistant Surgical
DX: S62.325A Displaced fracture of shaft of fourth metacarpal bone, left hand, initial encounter for closed fracture (principal); S52.502A Unspecified fracture of the lower end of left radius, initial encounter for closed fracture; S52.611A Displaced fracture of right ulna styloid process, initial encounter for closed fracture; X58.XXXA Exposure to other specified factors, initial encounter
CPT/HCPCS: 73130

== ENCOUNTER 2025-01-16 13:15 | Outpatient (CLI) | payer MEDICARE, SELFPAY ==
--- NOTE | ~2025-01-16 | XR_ITS ---
Left Hand Technique: PA, oblique, and lateral views were obtained. Clinical History: Fourth metacarpal fracture COMPARISON: 01/03/2025 Findings: Orthopedic pin fixation of fourth metacarpal fracture again present. Stable osseous and ort hopedic hardware alignment. Overlying cast obscures fine bony detail. Healing transverse fracture the distal radius is also unchanged. Small displaced fracture the ulnar styloid process also present. Coretta int spaces are preserved. Soft tissues are unremarkable. Impression: Overall, no significant interval change. Stable osseous and orthopedic hardware alignment at the four th metacarpal. Stable fractures of the distal radius and ulnar styloid process. Reviewed, dictated and finalized at location . Impression: Overall, no significant interval change. Stable osseous and orthopedic hardware alignment at the fourth metacarpal. Stable fractures of the distal radius and ulnar styloid process.
--- OUTSIDE RECORDS SUMMARY | 2025-01-16 15:08 | XMS_ITS | Clinical Summary ---
Author Organization [facility] Address [address] [place] [address] Phone Care Team Providers Care Student Support Counselor Name Role Phone Joan Robins MD Primary [...] on file Legal Sex Female 10:36 AM EXPELLER OPERATOR Gender Identity Not on file Sexual Orientation Not on file Last Filed Vital Signs Vital Sign Reading Time Taken Comments Blood Pressure 125/81 10/21/2018 12:15 PM EXPELLER OPERATOR Pulse 72 10/21/2018 12:25 PM EXPELLER OPERATOR Temperature 36.3 C (97.3 F) 10/21/2018 11:32 AM EXPELLER OPERATOR Respiratory Rate 18 10/21/2018 12:25 PM EXPELLER OPERATOR Oxygen Saturation 99% 10/21/2018 12:25 PM EXPELLER OPERATOR Inhaled Oxygen Concentration - - Weight 60.3 kg (133 lb) 10/21/2018 11:32 AM EXPELLER OPERATOR Height 170.2 cm (5' 7 ) 10/21/2018 11:32 AM EXPELLER OPERATOR Body Mass Index 20.83 10/21/2018 11:32 AM EXPELLER OPERATOR Plan of Treatment Health Maintenance Due [...] age to complete this topic Insurance MEDICAID [employer] Care Teams Student Support Counselor Relationship Specialty Start Date End Date Joan Robins MD [address] [place] [address] PCP - General Internal Medicine 10/21/18
--- OUTSIDE RECORDS SUMMARY | 2025-01-16 15:08 | XMS_ITS | Continuity of Care Document ---
Author Organization [email or web address] [facility] Address [address] [place] [address] Phone Care Team Providers Care Social Media Executive Name Role Phone Sandie Briggs MD Unavailable [...] Encounter [facility], [address], [place], [place], [id number] , [place] tel: [phone] [facility] No Information [address], [place], [place], [address], [place]. [phone] OFFICE/OUTPATI ENT VISIT, EST [facility], [address], [place], [place], [id number] , [place] tel: [phone] [facility] medication refill (chief complaint) Bipolar disorderHigh risk medication use 3 No Information [facility], [address], [place], [place], [address] , [place] tel: [phone] [facility] Dental examination 2 No Information OFFICE OUTPT EST 25 MIN [facility], [address], [place], [place], [address] , [place] tel: [phone] [facility] referrals (chief complaint)b ipolar disorder (chief complaint) Bipolar disorderAlcohol abuseRoutine adult health maintenanceNeed for prophylactic vaccination and inoculation against Streptococcus pneumoniae [pneumococcus]C ommon wart 2 No Information OFFICE/OUTPATI ENT VISIT, EST [facility], [address], [place], [place], [address] , [place] tel: [phone] [facility] test results (chief complaint) Genital herpes, unspecifiedBeni gn neoplasm of vulvaNeed for prophylactic vaccination and inoculation, influenza 2 No Information [facility], [address], [place], [place], [address] , [place] tel: [phone] [facility] Dental examination 2 No Information OFFICE/OUTPATI ENT VISIT, EST [facility], [address], [place], [place], [address] , [place] tel: [phone] [facility] irritated spot on vulva (chief complaint) Benign neoplasm of vulva 2 No Information 1ST COMPRE PREV MED E/M NEW PT 40-64 [facility], [address], [place], [place], [address] , [place] tel: [phone] [facility] annual visit (chief complaint) Routine gynecological examination 2 No Information [facility], [address], [place], [place], [address] , [place] tel: [phone] [facility] No Information 1 No Information OFFICE OUTPT EST 25 MIN [facility], [address], [place], [place], [address] , [place] tel: [phone] [facility] pain (chief complaint)E R f/u (chief complaint) Other and unspecified alcohol dependence, continuous drinking behavior 1 No Information ENVIRONMENTAL IVNTJ MGMT PURPOSES PSYC PT [facility], [address], [place], [place], [address] , [place] tel: [phone] [facility] No Information 0 No Information FAMILY PSYCHOTHERAPY (CONJOINT PSYCHOTHERAPY) (WITH PATIENT PRESENT) [facility], [address], [place], [place], [address] , [place] tel: [phone] [facility] substance abuse (chief complaint) No Information 0 No Information OFFICE/OUTPATI ENT VISIT, EST [facility], [address], [place], [place], [address] , [place] tel: [phone] [facility] alcohol (chief complaint) Other and unspecified alcohol dependence, continuous drinking behavior 0 No Information OFFICE/OUTPATI ENT VISIT, EST [facility], [address], [place], [place], [address] , [place] tel: [phone] [facility] dizziness (chief complaint)a lcohol abuse (chief complaint) Other and unspecified alcohol dependence, continuous drinking behaviorDizzine ss and giddiness 0 No Information [facility], [address], [place], [place], [address] , [place] tel: [phone] [facility] depression (chief complaint) Major depressive affective disorder, recurrent episode, moderate degreeOther and unspecified alcohol dependence, continuous drinking behaviorUnspeci fied personality disorder 0 No Information OFFICE/OUTPATI ENT VISIT, NEW [facility], [address], [place], [place], [address] , [place] tel: [phone] [facility] REFERRED BY CASA DE DAY (chief complaint)M EDICATION NEEDED (chief complaint) Issue of repeat prescriptions 0 Juan Pablo [facility], [place], [place], [address], [place]. [phone] [facility], [address], [place], [place], [address] , [place] tel: [phone] Care Guidelines Aly-0 1-190 1 No Information [...] A1C. Due on due Referral Referred To: [facility] Ordered: Referral: [facility]. Psychiatry. Evaluate and treat. ordered Referral Referred To: Josse Carrillo MD [address] [place], [place], [phone] Ordered: Referral: Josse Carrillo MD. Psychiatry. Evaluate and treat. ordered Referral Referred To: [facility] [address], [place], [phone] Ordered: Referral: [facility]. Radiology. Diagnostic testing. Appointment date/timeframe: 04/12/2012 ordered Referral Referred To: Anupam Sher MD [address] [place], [place], [phone] Ordered: Referral: Anupam Sher MD. Psychiatry. Appointment [...]
--- OUTSIDE RECORDS SUMMARY | 2025-01-16 15:08 | XMS_ITS | Encounter Summary ---
Author Organization [facility] Address [address] [facility] [place] [address] Care Team Providers Care Component Engineer Name Role Phone MeghnaKerry Primary Care Provider [phone] Meghna Kerry FRANKS Unavailable [phone] Encounter Details Date Type Department Care Team (Late st Contact Info) Description 02/10/2024 Telephone [facility] - Neurology [address] [facility] [place] [phone] Hyacinth Arriaga, OVERHEAD CLEANER MAINTAINER-IMMIGRATION CASE WORKER [address] [place] [address] [place] [address] Social History Tobacco Use Types Packs/Day Years Used Date Smoking Tobacco: Never Assessed Sex and Gender Information Value Date Recorded Sex Assigned at Female 09/16/2024 2:41 PM SPOUT LINER HELPER Gender Identity Female 09/16/2024 2:41 PM SPOUT LINER HELPER Sexual Orientation Straight 09/16/2024 2: 41 PM SPOUT LINER HELPER documented as of this encounter Functional Status [...] Description 01/25/2025 10:30 AM CDT Office Visit [facility] - GI [address] [place] [phone] Yolanda Greer, OVERHEAD CLEANER MAINTAINER-IMMIGRATION CASE WORKER [address] [place] [phone] 01/31/2025 11:00 AM CDT Office Visit [facility] - Internal Medicine [address] , [address] [phone] Kerry Coffman DO [address] [place] [address] OF [facility] INTERNAL [place] [address] 02/01/2025 10:30 AM CDT Office Visit [facility] - Orthopedics [address] [place] [phone] Cornelio Lima MD [address] [place] [address] 02/09/2025 11:15 AM CDT Office Visit [facility] - Ophthalmology [address] [place] [phone] Percy Matute MD [address] [place] [address] DEPT OF [place] [phone] 02/09/2025 4:00 PM CDT Office Visit [facility] - Allergy [address] [place] [phone] Papito Morales MD [address] [place] [address] 2L DIV OF ALLERGY/[place] [address] 03/02/2025 1:00 PM CDT Office Visit [facility] - Neurology [address] [place] [phone] Moncho Salcedo, OVERHEAD CLEANER MAINTAINER-IMMIGRATION CASE WORKER [address] [place] [address] 1L DIV [place] [phone] 04/13/2025 3:00 PM CDT Office Visit [facility] - Allergy [address] [place] [phone] Papito Morales MD [address] [place] [address] 2L DIV OF ALLERGY/[place] [address] documented as of this encounter Visit Diagnoses Not on filedocumented in this encounter Additional Health Concerns Infection Onset Date Last Indicated Resolved Time CDIFF Under Investigation 07/20/2024 07/20/2024 4:33 AM CDT CDIFF Under Investigation 10/26/2024 11/07/2024 4:33 AM SPOUT LINER HELPER CDIFF Under Investigation 11/07/2024 11/07/2024 5:38 PM SPOUT LINER HELPER documented as of this encounter Care Teams Component Engineer Relationship Specialty Start Date End Date Kerry Coffman DO [address] [place] [address] 2L DIV OF GEN INTERNAL [place] [address] PCP - General Internal Medicine 12/15/23 Kerry Coffman DO [address] [place] [address] 2L DIV OF GEN [place] [address] PCP - Attributed-[facility] TAYLOR P4P 12/10/24 documented as of this encounter
--- OUTSIDE RECORDS SUMMARY | 2025-01-16 15:08 | XMS_ITS | Encounter Summary ---
Author Organization [facility] Address [address] [facility] [address] Care Team Providers Care Shot Dropper Name Role Phone Joan Robins MD Primary Care Provider CatherineKerry reddy DO Primary Care Provider [phone] Kerry Coffman DO Unavailable [phone] Encounter Details Date Type Department Care Team (Late st Contact Info) Description 12/18/2021 Telephone [facility] [address] [place], [place] [phone] Rissa Vo MD Social History Tobacco Use Types Packs/Day Years Used Date Smoking Tobacco: Former Smokeless Tobacco: Never Alcohol Use Standard Drinks/Week Comments Never 0 (1 standard drink = 0.6 oz pur e alcohol) Sex and Gender Information Value Date Recorded Sex Assigned at Female 09/16/2024 2:41 PM CHIEF ENGINEER Gender Identity Female 09/16/2024 2:41 PM CHIEF ENGINEER Sexual Orientation Straight 09/16/2024 2: 41 PM CHIEF ENGINEER COVID-19 Exposure Response Date Recorded In the last month, have you been in contact with someone who was confirmed or suspected to have Coronavirus / COVID-19? No / Unsure 12/19/2021 5:58 AM CHIEF ENGINEER documented as of this encounter Patient Instructions * Patient Instructions* Donny Elliott - 12/18/2021 6:58 AM CHIEF ENGINEER Pt was bumped from 03/17/2022 DBN appt. [facility] does not schedule for these appt types. Please reschedule from the bump list. F ENGINEER documented in this encounter Plan of Treatment Upcoming Encounters Date Type Department Care Team (Late st Contact Info) Description 01/25/2025 10:30 AM CDT Office Visit [facility] - GI [address] [place] [address], [place] [phone] Yolanda Greer, RESEARCH PHYSICIAN-RECORDS MANAGEMENT TECHNICIAN [address] [place] [phone] 01/31/2025 11:00 AM CDT Office Visit [facility] - Internal Medicine [address], [facility] [address] [place] [phone] Kerry Coffman DO [address] [place] [address] 2L DIV OF [place] [address] 02/01/2025 10:30 AM CDT Office Visit [facility] - Orthopedics [address] [place] [address], [place] [phone] Cornelio Lima MD [address] [place] [address] 02/09/2025 11:15 AM CDT [facility] [address] [place] [address], [place] [phone] Percy Matute MD [address] [place] [address] DEPT [place] [phone] 02/09/2025 4:00 PM CDT Office Visit [facility] - Allergy [address] [place] [phone] Papito Morales MD [address] [place] [address] 2L DIV OF ALLERGY/[place] [address] 03/02/2025 1:00 PM CDT Office Visit [facility] - Neurology [address] [place] [address], [place] [phone] Moncho Salcedo APRN-RECORDS MANAGEMENT TECHNICIAN [address] [place] [address] 1L [place] [phone] 04/13/2025 3:00 PM CDT Office Visit [facility] - Allergy [address] [place] [address], [place] [phone] Papito Morales MD [address] [place] [address] 2L DIV OF ALLERGY/[place] [address] documented as of this encounter Visit Diagnoses Not on filedocumented in this encounter Additional Health Concerns Infection Onset Date Last Indicated Resolved Time CDIFF Under Investigation 07/20/2024 07/20/2024 4:33 AM CDT CDIFF Under Investigation 10/26/2024 11/07/2024 4:33 AM CHIEF ENGINEER CDIFF Under Investigation 11/07/2024 11/07/2024 5:38 PM CHIEF ENGINEER documented as of this encounter Care Teams Shot Dropper Relationship Specialty Start Date End Date Joan Robins MD [address] [place], [place] [phone] PCP - General 02/14/19 12/14/23 Kerry Coffman DO [facility] 2L DIV OF [place] [address] PCP - General Internal Medicine 12/15/23 Kerry Coffman DO [address] [place] [address] 2L DIV [place] [address] PCP - Attributed-[facility] TAYLOR P4P 12/10/24 documented as of this encounter
--- OUTSIDE RECORDS SUMMARY | 2025-01-16 15:08 | XMS_ITS | Encounter Summary ---
Author Organization [facility] Address [address] [facility] [place] [address] Care Team Providers Care Licensed Mental Health Professional Name Role Phone Meghna Kerry Primary Care Provider [phone] Kerry Coffman DO Unavailable [phone] Reason for Visit * Reason Onset Date Comments Appointment 10/20/2024 Encounter Details Date Type Department Care Team (Late st Contact Info) Description 10/20/2024 Telephone [facility] - Centralized Scheduling [address] [place] [phone] Moncho Salcedo, RN EMERGENCY-PLAYER PIANO TECHNICIAN [address] [phone] Appointment Social History Tobacco Use [...] Sex Assigned at Female 09/16/2024 2:41 PM INSOLE TAPER Gender Identity Female 09/16/2024 2:41 PM INSOLE TAPER Sexual Orientation Straight 09/16/2024 2: 41 PM INSOLE TAPER documented as of this encounter Functional Status [...] to schedule for a Short Procedure with COOKER LOADER Settu in November. LE TAPER documented in this encounter Plan of Treatment Upcoming Encounters Date Type Department Care Team (Late st Contact Info) Description 01/25/2025 10:30 AM CDT Office Visit [facility] - GI [address] [place] [phone] Yolanda Greer, RN EMERGENCY-PLAYER PIANO TECHNICIAN [address] [place] [phone] 01/31/2025 11:00 AM CDT Office Visit [facility] - Internal Medicine [address] , [address] [phone] Kerry Coffman DO [address] [place] [address] OF [facility] [place] [address] 02/01/2025 10:30 AM CDT [facility] [address] [place] [phone] Cornelio Lima MD [address] [place] [address] 02/09/2025 11:15 AM CDT Office Visit [facility] - Ophthalmology [address] [place] [phone] Percy Matute MD [address] [place] [address] [place] [phone] 02/09/2025 4:00 PM CDT Office Visit [facility] - Allergy [address] [place] [address], [place] [phone] Papito Morales MD [address] [place] [address] 2L DIV OF ALLERGY/[place] [address] 03/02/2025 1:00 PM CDT Office Visit [facility] - Neurology [address] [place] [address], [place] [phone] Moncho Salcedo APRN-PLAYER PI[employer]O TECHNICIAN [address] [place] [address] 1L [place] [phone] 04/13/2025 3:00 PM CDT Office Visit [facility] - Allergy [address] [place] [address], [place] [phone] Papito Morales MD [address] [place] [address] 2L DIV OF ALLERGY/[place] [address] documented as of this encounter Goals Goal Patient Goal Type Associated Problems Recent Progress Patient-Stated? Author Medication Management General On track( 025 10:42 AM INSOLE TAPER) Marion Scott, RN Note: Expected end date: ongoing Interventions: Take all medications as prescribed documented as of this encounter Visit Diagnoses Not on filedocumented in this encounter Additional Health Concerns Infection Onset Date Last Indicated Resolved Time CDIFF Under Investigation 10/26/2024 11/07/2024 4:33 AM INSOLE TAPER CDIFF Under Investigation 11/07/2024 11/07/2024 5:38 PM INSOLE TAPER documented as of this encounter Care Teams Licensed Mental Health Professional Relationship Specialty Start Date End Date Kerry Coffman DO [address] 2L [place] [address] PCP - General Internal Medicine 12/15/23 Kerry Coffman DO [address] 2L [place] [address] PCP - [facility] MANSOOR TAYLOR P4P 12/10/24 documented as of this encounter
--- OUTSIDE RECORDS SUMMARY | 2025-01-16 15:08 | XMS_ITS | Clinical Summary ---
Author Organization [facility] Speed Dating by Chantilly Lace Address [address] [place] [address] Care Team Providers Care Asbestos Textile Supervisor Name Role Phone Kerry Coffman DO Primary Care Provider [phone] Kerry Coffman DO Unavailable [phone] Source Comments [facility],non-owned Affiliates and Associated Physician Practices is amultiple site organization consisting of ambulatory clinics and hospital sitesin [place], [place], [place] and [place]. This disclosure is being madepursuant to the Care Everywhere program and may not contain all information available regarding this patient. Last updated 18.[facility] Speed Dating by Chantilly Lace Allergies Active Allergy Reactions Criticality Noted Date [...] long-term current use of insulin ([facility]) Use 1 Each 2 times daily [...] affective disorder, remission status unspecified ([facility]) Take 1 (one) tablet by mouth [...] route every 30 days Active blood glucose ([employer] Ultra) test stripIndications:T ype 2 diabetes mellitus with hyperglycemia, without long-term current use of insulin ([facility]) USE 1 STRIP TO CHECK GLUCOSE [...] rhinitis, unspecified seasonality, unspecified trigger,Chronic daily headache Oberon 2 (two) sprays into each nostril once daily 16 g 6 08/11/2024 Active azelastine (Astelin) 0.1 % nasal sprayIndications:C hronic rhinitis,Allergic rhinitis, unspecified seasonality, unspecified trigger,Chronic daily headache Oberon 1 (one) spray into each nostril 2 [...] Encounters Date Type Department Care Team Description 01/10/2025 Refill [facility] - Neurology [address] [place] [phone] Moncho Salcedo APRN-CNP MEDICATION REFILL 01/05/2025 Telephone [facility] - Neurology [address] [place] [phone] Moncho Salcedo APRN-CNP Medication Clarification 01/05/2025 Travel 12/23/2024 12:26 PM CDT - 12/23/2024 2:22 PM CDT Emergency [facility] EMERGENCY DEPARTMENT [address] [place] [address] Cornelio Richardson MD Ground-level fall (Primary Dx); Acute pain of left shoulder; Left hip pain Discharge Disposition: Home or Self Care 12/23/2024 Travel 12/19/2024 Telephone [facility] - Endocrinology [address] [facility], [place] [address] Haydee Simmons RN Results 12/13/2024 Orders Only [facility] - Neurology [address] [place] [address] Moncho Salcedo APRN-CNP Cognitive decline 12/08/2024 9:17 AM COFFEE URN ATTENDANT - 12/08/2024 11:59 PM COFFEE URN ATTENDANT Hospital Encounter [facility] CAT SCAN [address] [place] [address] Cornelio Lima MD Discharge Disposition: Home or Self Care 12/08/2024 9:17 AM COFFEE URN ATTENDANT - 12/08/2024 11:59 PM COFFEE URN ATTENDANT Hospital Encounter [facility] CAT SCAN [address] [place] [address] Cornelio Lima MD Discharge Disposition: Home or Self Care 12/08/2024 7:08 AM COFFEE URN ATTENDANT - 12/08/2024 9:16 AM COFFEE URN ATTENDANT Hospital Encounter [facility] DIAGNOSTIC RAD [address] [place] [address] Cornelio Lima MD Discharge Disposition: Home or Self Care 12/08/2024 Travel 11/28/2024 Telephone [facility] - Neurology [address] [place] [address] Moncho Salcedo APRN-CNP Medication Prior Auth Request (Emgality) 11/23/2024 10:58 AM COFFEE URN ATTENDANT - 11/23/2024 11:59 PM COFFEE URN ATTENDANT Hospital Encounter [facility] DIAGNOSTIC RAD CSM [address]L [address] [facility] [place] [address] Cornelio Lima MD Discharge Disposition: Home or Self Care 11/23/2024 10:58 AM COFFEE URN ATTENDANT - 11/23/2024 11:59 PM COFFEE URN ATTENDANT Hospital Encounter [facility] DIAGNOSTIC RAD CSM [address] [facility] [place] [address] Cornelio Lima MD Discharge Disposition: Home or Self Care 11/23/2024 10:00 AM COFFEE URN ATTENDANT Office Visit [facility] - Orthopedics [address] [place] [phone] Cornelio Lima MD Lumbar spine pain (Primary Dx); Lumbar spondylosis; Spondylolisthesis of lumbar region; Degenerative scoliosis in adult patient; Cervical spondylosis with myelopathy; Cervicalgia 11/23/2024 9:49 AM COFFEE URN ATTENDANT - 11/23/2024 10:57 AM COFFEE URN ATTENDANT Hospital Encounter [facility] DIAGNOSTIC RAD CSM [address] [place] [address] Cornelio Lima MD Discharge Disposition: Home or Self Care 11/23/2024 Travel 11/14/2024 Telephone [facility] - Neurology [address] [place] [phone] Moncho Salcedo APRN-POLICE RADIO DISPATCHER Medication Clarification (Emgaltiy) 11/11/2024 10:15 AM COFFEE URN ATTENDANT - 11/11/2024 11:00 AM COFFEE URN ATTENDANT Surgery [facility] ENDOSCOPY [facility] [place] [address] Sixto Cornell MD COLONOSCOPY SCREEN--extended prep 11/11/2024 10:00 AM COFFEE URN ATTENDANT Anesthesia Event [facility] ENDOSCOPY [address] [place] [address] Doug Forrester MD Dobbs, Kristin L, APRN-RECORDS MANAGEMENT SPECIALIST 11/11/2024 8:14 AM COFFEE URN ATTENDANT - 11/11/2024 11:24 AM COFFEE URN ATTENDANT Hospital Encounter [facility] OP [address] [place] [address] Sixto Cornell MD Surgery General Discharge Disposition: Home or Self Care 11/11/2024 Travel 11/04/2024 Patient Outreach [facility] ENDOSCOPY [address] [place] [address] Samantha Monterroso RN 11/02/2024 3:30 PM COFFEE URN ATTENDANT Office Visit [facility] - Neurology [address] [facility], [place] [address] Moncho Salcedo APRN-CNP Intractable 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 (Primary Dx) 11/02/2024 Travel 10/26/2024 10:30 AM COFFEE URN ATTENDANT Office Visit [facility] - GI [address] [facility], [place] [phone] Yolanda Greer APRN-CNP Chronic diarrhea (Primary Dx) 10/26/2024 Travel 10/25/2024 Orders Only [facility] ENDOSCOPY [address] [place] [address] Wendy Humphrey RN 10/24/2024 Travel 10/20/2024 Telephone [facility] - Centralized Scheduling [address] [place] [address] Moncho Salcedo APRN-CNP Appointment from Last 3 Months Immunizations Name Administration [...] Sex Assigned at Female 09/16/2024 2:41 PM COFFEE URN ATTENDANT Gender Identity Female 09/16/2024 2:41 PM COFFEE URN ATTENDANT Sexual Orientation Straight 09/16/2024 2: 41 PM COFFEE URN ATTENDANT Last Filed Vital Signs Vital Sign Reading [...] Description 01/25/2025 10:30 AM CDT Office Visit [facility] - GI [address] [place] [phone] Yolanda Greer, PLUG AND MOLD FINISHER-POLICE RADIO DISPATCHER [address] [place] [phone] 01/31/2025 11:00 AM CDT Office Visit [facility] - Internal Medicine [address] Vasquez , [address] [phone] Kerry Coffman DO [address] [place] [address] OF [facility] [place] [address] 02/01/2025 10:30 AM CDT Office Visit [facility] - Orthopedics [address] [place] [phone] Cornelio Lima MD [address] [place] [address] 02/09/2025 11:15 AM CDT Office Visit [facility] - Ophthalmology [address] [place] [phone] Percy Matute MD [address] [place] [address] [place] [phone] 02/09/2025 4:00 PM CDT Office Visit [facility] - Allergy [address] [place] [address], [place] [address] Papito Morales MD [address] [place] [address] 2L DIV OF ALLERGY/[place] [address] 03/02/2025 1:00 PM CDT Office Visit [facility] - Neurology [address] [place] [address], [place] [address] Moncho Salcedo, PLUG AND MOLD FINISHER-POLICE RADIO DISPATCHER [address] [place] [address] [address] [place] [phone] 04/13/2025 3:00 PM CDT Office Visit [facility] - Allergy [address] [place] [address], [place] [address] Papito Morales MD [address] [place] [address] 2[address] DIV OF ALLERGY/[place] [address] Health Maintenance Due Date Last Done Comments [...] 2024 10/11/2023, 10/14/2022, 01/18/2022, Additional history exists DIABETES-HGB A1C 10/04/2024 04/04/2024, 12/08/2022 DIABETES - URINE PROTEIN SCREENING 10/12/2024 02/05/2023 MEDICARE AWV CALENDAR YEAR 2024 09/19/2024 DIABETES-FOOT EXAM WITH MONOFILAMENT 04/04/2025 04/04/2024 INFLUENZA VACCINE (Season Ended) 2025 09/29/2023, 07/03/2022, 10/08/2021, Additional history exists MAMMOGRAM 09/18/2025 09/18/2023 (Done [...] Management General On track( 025 10:42 AM COFFEE URN ATTENDANT) Marion Scott, RN Note: Expected end date: ongoing Interventions: Take all medications as prescribed Medical Devices Implanted Type Area Wireless Consultant Device Identifier Shelf Expiration Date Model / Serial / Lot Slnt Dura Duraseal Pg Trilysine Amine 5 Implanted:Qty: 1 on 03/17/2022 by Jackelyn Yang MD at [facility] Left: Cranial Integra My Point...ExactlyciPerzo Michael 08/11/2023 [id number] / / [id number] Guardian Branial Wellford Hole Cover Sys Implanted:Qty: 1 on 03/17/2022 by Jackelyn Yang MD at [facility] Left: Cranial luma-id 01/01/2024 6010 / / [id number] Directional Lead Implanted:Qty: 1 on 03/17/2022 by Shailesh North MD at [facility] Left: Cranial [employer] 09/25/2023 6172 / [id number] / Lead Extension Implanted:Qty: 1 on 03/24/2022 by Shailesh North MD at [facility] Left: Neck luma-id 01/15/2024 [id number] / / [id number] Generator Implanted:Qty: 1 on 03/24/2022 by Shailesh North MD at [facility] Left: Chest [employer] 11/19/2023 6662 / / [id number] [place] Spnl 140mm 6.35mm Ti Str Implanted:Qty: 1 on 08/29/2022 by Shailesh North MD at [facility] Right: Scalp [employer] 04/02/2024 6010 / / [employer] Inf[employer] Dbs System Implanted:Qty: 1 on 08/29/2022 by Joshua Gill MD at [facility] Right: Brain 03/19/2024 6172 / [id number] / Description:cost per Levar [employer] Inf[employer] Dbs System Implanted:Qty: 1 on 08/29/2022 by Joshua Gill MD at [facility] Right: Chest Wall 04/23/2024 6373 / [id number] / Description:cost per levar Procedures Procedure Name [...] OR MORE REGIONS Routine 12/08/2024 10:27 AM COFFEE URN ATTENDANT Lumbar spine pain CT LUMBAR POST MYELOGRAM Routine 12/08/2024 10:25 AM COFFEE URN ATTENDANT Lumbar spine pain CT CERVICAL POST MYELOGRAM Routine 12/08/2024 10:25 AM COFFEE URN ATTENDANT Lumbar spine pain XR SPINE ENTIRE 2 OR 3VW Routine 11/23/2024 11:09 AM COFFEE URN ATTENDANT Lumbar spine pain XR CERVICAL SPINE 2 OR 3VW Routine 11/23/2024 11:06 AM COFFEE URN ATTENDANT Lumbar spine pain XR LUMBAR SPINE 2 OR 3VW Routine 11/23/2024 10:00 AM COFFEE URN ATTENDANT Lumbar spine pain PATHOLOGY TISSUE Routine 11/11/2024 10:1 6 AM COFFEE URN ATTENDANT Screen for colon cancer MD COLOREC CANC SCRN,SCOPY NOT HI RISK 11/11/2024 9:55 AM COFFEE URN ATTENDANT Screen for colon cancer ENDOSCOPY, COLON, SCREENING Routine 11/11/2024 9:52 AM COFFEE URN ATTENDANT GLUCOSE - POINT OF CARE Routine 11/11/2024 9:19 AM COFFEE URN ATTENDANT CALPROTECTIN FECAL Routine 11/07/2024 3: 52 PM COFFEE URN ATTENDANT Chronic diarrhea CULTURE STOOL PANEL Routine 11/07/2024 3 :52 PM COFFEE URN ATTENDANT Chronic diarrhea C DIFFICILE CYTOTOXIN Routine 11/07/2024 3:51 PM COFFEE URN ATTENDANT Chronic diarrhea PROC DEEP BRAIN STIMULATOR Routine 11/03/2024 2:08 PM COFFEE URN ATTENDANT Intractable chronic migraine with aura with status [...] Sensitive <3 <=14 ng/L 12/23/2024 11:21 AM CDT [facility] Delta Troponin I HS 12/23/2024 11:21 AM CDT [facility] Comment:Delta value intentio yasir not calculated. Baseline to 1 hour specimen collection interval exceeded. Blood BLOOD SPECIMEN / Unknown Venipuncture / Unknown 12/23/2024 10:40 AM CDT 12/23/2024 10:44 AM CDT Yuval Krueger MD LAB - CHEMISTRY HARISHE AMANDA [address] [address], [facility] [phone] * (ABNORMAL) URINALYSIS REFLEX TO MICROSCOPIC NO CULTURE (12/23/2024 10:21 AM CDT) Color UA Colorless(A ) Yellow, Straw 12/23/2024 10:41 AM CDT [facility] Clarity UA Clear Clear 12/23/2024 10:41 AM CDT [facility] Glucose UA Normal Normal 12/23/2024 10:41 AM CDT [facility] Bilirubin UA Negative Negative 12/23/2024 10:41 AM CDT [facility] Ketone UA Negative Negative 12/23/2024 10:41 AM CDT [facility] Specific [place] UA <1.005(L) 1.005 - 1.030 12/23/2024 10:41 AM CDT [facility] Blood UA Negative Negative 12/23/2024 10:41 AM CDT [facility] pH UA 7.5 5.0 - 9.0 pH 12/23/2024 10:41 AM CDT [facility] Protein UA Negative Negative 12/23/2024 10:41 AM CDT [facility] Urobilinogen UA Normal Normal mg/dL 12/23/2024 10:41 AM CDT [facility] Nitrite UA Negative Negative 12/23/2024 10:41 AM CDT [facility] Leukocyte UA Negative Negative 12/23/2024 10:41 AM CDT [facility] Urine URINE SPECIMEN OBTAINED BY CLEAN CATCH PROCEDURE / Unknown Collection / Unknown 12/23/2024 10:21 AM CDT 12/23/2024 10:31 AM CDT Yuval Krueger MD LAB - URINALYSIS ORD ERABLES [facility] [address] [place] [address], [facility] [phone] * CT CERVICAL SPINE WO CONTRAST (12/23/2024 9:33 AM CDT) Anatomical Region Laterality Modality Spine Computed Tomogra phy 12/23/2024 9:33 AM CDT Impressions 12/23/2024 11:16 AM CDT IMPRESSION: 1. No acute intracranial process. 2. No evidence of acute fracture in the cervical spine. 3. Multiple chronic findings as detailed in the report. > Dictated by Balaji Browne MD (Clinical Nursing Professor), 12/23/2024 9:47 AM. I, Masha Alexandra MD have personally reviewed and interpreted this examination/study. > Interpreting Provider: Masha Alexandra MD on 12/23/2024 11:16 AM Narrative 12/23/2024 11:16 AM CDT PROCEDURE: CT HEAD WO CONTRAST, CT CERVICAL SPINE WO CONTRAST, DATE/TIME OF EXAM: 12/23/2024 9:33 AM, LOCATION [facility] INDICATION: W18.30XA: Ground-level fall EXAMINATION: 1. Computed [...] CONTRAST,DATE/TIME OF EXAM: 12/23/2024 9:33 AM, LOCATION [facility] INDICATION: W18.30XA: Ground-level fall EXAMINATION: 1. Computed [...] report. > Dictated by Balaji Browne MD (Clinical Nursing Professor), 12/23/2024 9:47 AM. I, Masha Alexandra MD [...] report. > Dictated by Balaji Browne MD (Clinical Nursing Professor), 12/23/2024 9:47 AM. I, Masha Alexandra MD have personally reviewed and interpreted this examination/study. > Interpreting Provider: Masha Alexandra MD on 12/23/2024 11:16 AM Narrative 12/23/2024 11:16 AM CDT PROCEDURE: CT HEAD WO CONTRAST, CT CERVICAL SPINE WO CONTRAST, DATE/TIME OF EXAM: 12/23/2024 9:33 AM, LOCATION [facility] INDICATION: W18.30XA: Ground-level fall EXAMINATION: 1. Computed [...] CONTRAST,DATE/TIME OF EXAM: 12/23/2024 9:33 AM, LOCATION [facility] INDICATION: W18.30XA: Ground-level fall EXAMINATION: 1. Computed [...] report. > Dictated by Balaji Browne MD (Clinical Nursing Professor), 12/23/2024 9:47 AM. I, Masha Alexandra MD have personally reviewed and interpreted this examination/study. > Interpreting Provider: Masha Alexandra MD on 12/23/2024 11:16 AM Yuval Krueger MD CT ORDERABLES * TROPONIN-I HIGH SENSITIVE BASELINE + 1HR (12/23/2024 9:06 AM CDT) [facility] Troponin I High Sensitive <3 <=14 ng/L 12/23/2024 10:05 AM CDT [facility] Blood BLOOD SPECIMEN / Unknown Venipuncture / Unknown 12/23/2024 9:06 AM CDT 12/23/2024 9:27 AM CDT Yuval Krueger MD LAB - CHEMISTRY SOTERO PATEL [address] [address], [facility] [phone] * (ABNORMAL) CBC W AUTO DIFFERENTIAL (12/23/2024 9:06 AM CDT) [facility] WBC 4.9 4.0 - 10.7 x10E9/L 12/23/2024 10:06 AM [facility] RBC Count 4.26 3.90 - 5.20 x10E12/L 12/23/2024 10:06 AM [facility] Hemoglobin 13.2 11.9 - 15.8 g/dL 12/23/2024 10:06 AM [facility] Hematocrit 39.6 34.8 - 46.1 % 12/23/2024 10:06 AM [facility] MCV 93.0 80.0 - 98.0 fL 12/23/2024 10:06 AM [facility] MCH 31.0 26.7 - 33.6 pg 12/23/2024 10:06 AM [facility] MCHC 33.3 31.7 - 36.3 g/dL 12/23/2024 10:06 AM [facility] RDW-CV 13.3 11.3 - 14.8 % 12/23/2024 10:06 AM [facility] Platelet Count 12/23/2024 10:06 AM [facility] Comment:Platelets clumped on slide but appears adequate. Recommend repeat with a sodium citrate blue top tube. MPV 12/23/2024 10:06 AM [facility] Comment:Unable to report Neutrophil % 69.5 41.0 - 74.0 % 12/23/2024 10:06 AM [facility] Lymphocyte % 16.6(L) 17.0 - 47.0 % 12/23/2024 10:06 AM [facility] Monocyte % 10.1 3.0 - 11.0 % 12/23/2024 10:06 AM [facility] Eosinophil % 2.4 0.0 - 7.0 % 12/23/2024 10:06 AM [facility] Basophil % 1.0 0.0 - 1.6 % 12/23/2024 10:06 AM [facility] Immature Granulocytes % 0.4 0.0 - 1.0 % 12/23/2024 10:06 AM [facility] Neutrophil Absolute 3.43 1.60 - 7.50 x10E9/L 12/23/2024 10:06 AM [facility] Lymphocyte Absolute 0.82(L) 1.00 - 4.40 x10E9/L 12/23/2024 10:06 AM [facility] Monocyte Absolute 0.50 0.15 - 1.00 x10E9/L 12/23/2024 10:06 AM [facility] Eosinophil Absolute 0.12 0.00 - 0.60 x10E9/L 12/23/2024 10:06 AM [facility] Basophil Absolute 0.05 0.00 - 0.13 x10E9/L 12/23/2024 10:06 AM [facility] Blood BLOOD SPECIMEN / Unknown Venipuncture / Unknown 12/23/2024 9:06 AM T 12/23/2024 9:[address] [facility] Yuval Krueger MD LAB - HEMATOLOGY ORD ERABLES Performing Organization Address City/[facility] Co de Phone Number [address] [address] [phone] * (ABNORMAL) COMPREHENSIVE METABOLIC PANEL (12/23/2024 9:[address] [facility]) BUN 9 7 - 26 mg/dL 12/23/2024 10:02 AM [facility] Creatinine 0.87 0.56 - 0.96 mg/dL 12/23/2024 10:02 AM [facility] Sodium 143 136 - 145 mmol/L 12/23/2024 10:02 AM [facility] Potassium 4.4 3.5 - 4.5 mmol/L 12/23/2024 10:02 AM [facility] Chloride 104 98 - 107 mmol/L 12/23/2024 10:02 AM [facility] CO2 31(H) 22 - 29 mmol/L 12/23/2024 10:02 AM [facility] Glucose 97 70 - 99 mg/dL 12/23/2024 10:02 AM [facility] Calcium 9.5 8.4 - 10.2 mg/dL 12/23/2024 10:02 AM [facility] Protein Total 6.7 6.0 - 8.3 g/dL 12/23/2024 10:02 AM [facility] Albumin 3.8 3.4 - 5.0 g/dL 12/23/2024 10:02 AM [facility] Bilirubin Total 0.4 0.2 - 1.2 mg/dL 12/23/2024 10:02 AM [facility] Alkaline Phosphatase 116 40 - 150 U/L 12/23/2024 10:02 AM [facility] ALT 30 5 - 55 U/L 12/23/2024 10:02 AM [facility] AST 32 5 - 34 U/L 12/23/2024 10:02 AM [facility] Anion Gap 8 6 - 16 12/23/2024 10:02 AM [facility] BUN/Creatinine Ratio 10 7 - 23 12/23/2024 10:02 AM [facility] Osmolality Calculated 295 275 - 295 mOsm/kg 12/23/2024 10:02 AM [facility] Albumin/Globulin Ratio 1.3 1.1 - 2.3 12/23/2024 10:02 AM [facility] eGFR by CKD-EPI 72(L) >=90 mL/min/1.7 3 m2 12/23/2024 10:02 AM [facility] Blood BLOOD SPECIMEN / Unknown Venipuncture / Unknown 12/23/2024 9:06 AM CDT 12/23/2024 9:[address] [facility] Yuval Krueger MD LAB - CHEMISTRY SOTERO PATEL [facility] Organization Address City/State/ZIP Co de Phone Number [facility] [address] [place] [address], [facility] [phone] * EKG 12-LEAD (12/23/2024 9:[address] [facility]) Ventricular Rate 56 BPM [facility] MUSE Atrial Rate 56 BPM [facility] MUSE P-R Interval 176 ms [facility] MUSE QRS Duration ms 82 ms [facility] MUSE Q-T Interval ms 450 ms [facility] MUSE QTC Calculation (Bezet) 434 ms [facility] MUSE Calculated P Boron 45 degrees [facility] Calculated R Boron 9 degrees [facility] Calculated T Boron 54 degrees [facility] Interpretation EKG SINUS BRADYCARDIA LOW VOLTAGE QRS BORDERLINE ECG NO PREVIOUS ECGS AVAILABLE Confirmed by ROBBIE RENDON MD ([id number]) on 12/25/2024 12:16:38 PM [facility] MUSE 12/23/2024 9:05 AM CDT 12/25/2024 12:16 PM CDT Yuval Krueger MD ECG ORDERABLES [facility] MUSE * XR Tibia Fibula Left 2Vw [...] DATE/TIME OF EXAM: 12/23/2024 8:58 AM, LOCATION [facility] INDICATION: W18.30XA: Ground-level fall ADDITIONAL CLINICAL INFORMATION: [...] XR TIBIA FIBULA LEFT 2VW, XR KNEE [id number] OR LESS, XR ANKLE LEFT 3VW OR MORE, DATE/TIME OF EXAM: 12/23/2024 8:58AM, LOCATION [facility] INDICATION: W18.30XA: Ground-level fall ADDITIONAL CLINICAL INFORMATION: [...] dictated by Pravin Terry MD (DR/IR Resident). Fang Gutierrez MD have personally reviewed [...] DATE/TIME OF EXAM: 12/23/2024 9:00 AM, LOCATION [facility] INDICATION: W18.30XA: Ground-level fall ADDITIONAL CLINICAL INFORMATION: [...] DATE/TIME OF EXAM: 12/23/2024 9:00 AM, LOCATION [facility] INDICATION: W18.30XA: Ground-level fall ADDITIONAL CLINICAL INFORMATION: [...] DATE/TIME OF EXAM: 12/23/2024 9:00 AM, LOCATION [facility] INDICATION: W18.30XA: Ground-level fall ADDITIONAL CLINICAL INFORMATION: [...] DATE/TIME OF EXAM: 12/23/2024 9:00 AM, LOCATION [facility] INDICATION: W18.30XA: Ground-level fall ADDITIONAL CLINICAL INFORMATION: [...] dictated by Pravin Terry MD (DR/IR Resident). Fang Gutierrez MD have personally reviewed and interpreted this examination/study. > Interpreting Provider: Fang Varela MD on 12/23/2024 11:06 AM Narrative 12/23/2024 11:06 AM CDT PROCEDURE: XR FEMUR LEFT 2VW, XR TIBIA FIBULA LEFT 2VW, XR KNEE LEFT 2VW OR LESS, XR ANKLE LEFT 3VW OR MORE, DATE/TIME OF EXAM: 12/23/2024 8:58 AM, LOCATION [facility] INDICATION: W18.30XA: Ground-level fall ADDITIONAL CLINICAL INFORMATION: [...] XR TIBIA FIBULA LEFT 2VW, XR KNEE [id number] OR LESS, XR ANKLE LEFT 3VW OR MORE, DATE/TIME OF EXAM: 12/23/2024 8:58AM, LOCATION [facility] INDICATION: W18.30XA: Ground-level fall ADDITIONAL CLINICAL INFORMATION: [...] DATE/TIME OF EXAM: 12/23/2024 8:58 AM, LOCATION [facility] INDICATION: W18.30XA: Ground-level fall ADDITIONAL CLINICAL INFORMATION: [...] XR TIBIA FIBULA LEFT 2VW, XR KNEE [id number] OR LESS, XR ANKLE LEFT 3VW OR MORE, DATE/TIME OF EXAM: 12/23/2024 8:58AM, LOCATION [facility] INDICATION: W18.30XA: Ground-level fall ADDITIONAL CLINICAL INFORMATION: [...] dictated by Pravin Terry MD (DR/IR Resident). Fang Gutierrez MD have personally reviewed [...] DATE/TIME OF EXAM: 12/23/2024 8:58 AM, LOCATION [facility] INDICATION: W18.30XA: Ground-level fall ADDITIONAL CLINICAL INFORMATION: [...] dictated by Pravin Terry MD (DR/IR Resident). Fang Gutierrez MD have personally reviewed and interpreted this examination/study. > Interpreting Provider: Fang Varela MD on 12/23/2024 10:01 AM Procedure Note Fang Varela MD - 12/23/2024 PROCEDURE: XR CHEST 2VW, DATE/TIME OF EXAM: 12/23/2024 8:58 AM, LOCATION [facility] INDICATION: W18.30XA: Ground-level fall ADDITIONAL CLINICAL INFORMATION: [...] DATE/TIME OF EXAM: 12/23/2024 8:58 AM, LOCATION [facility] INDICATION: W18.30XA: Ground-level fall ADDITIONAL CLINICAL INFORMATION: [...] XR TIBIA FIBULA LEFT 2VW, XR KNEE [id number] OR LESS, XR ANKLE LEFT 3VW OR MORE, DATE/TIME OF EXAM: 12/23/2024 8:58AM, LOCATION [facility] INDICATION: W18.30XA: Ground-level fall ADDITIONAL CLINICAL INFORMATION: [...] This preliminary report was dictated by Pravin Teryr MD (DR/IR Resident). Fang Gutierrez MD have personally reviewed and interpreted this examination/study. > Interpreting Provider: Fang Varela MD on 12/23/2024 11:06 AM Yuval Krueger MD DIAGNOSTIC IMAGING O RDERABLES * FL Myelogram 2 or More Regions (12/08/2024 10:27 AM COFFEE URN ATTENDANT) Anatomical Region Laterality Modality Spine Digital Radiogra phy 12/08/2024 1:17 PM COFFEE URN ATTENDANT Impressions 12/13/2024 12:15 PM COFFEE URN ATTENDANT IMPRESSION: 1.Successful lumbar puncture for cervical and [...] degenerative disc and joint disease as detailed xbdfh-zn-xgbmd above, worse at L4-L5, as outlined. 2.Transitional anatomy as noted above. The report is dictated by Addi Arambula MD, (workforce development vice president) Attending Physician: Dr. Magdalena Blackmon Lead Mason Tender: Dr. Addi Arambula MD, (workforce development vice president) The procedure was performed by the: The certified teacher assistant, and the attending radiologist was present [...] 12/13/2024 12:15 PM Narrative 12/13/2024 12:15 PM COFFEE URN ATTENDANT PROCEDURE: FL MYELOGRAM 2 OR MORE REGIONS, CT LUMBAR POST MYELOGRAM, CT CERVICAL POST MYELOGRAM DATE/TIME OF EXAM: 12/08/2024 10:34 AM CLINICAL INFORMATION: PROCEDURE: FL MYELOGRAM 2 OR MORE REGIONS, CT LUMBAR POST MYELOGRAM, CT CERVICAL POST MYELOGRAM, DATE/TIME OF EXAM: 12/08/2024 10:34 AM, LOCATION [facility] INDICATION: M54.50: Lumbar spine pain ADDITIONAL CLINICAL INFORMATION: Ordering Provider Reason For Exam: myelopathy (accession [id number]), chronic low back pain (accession [id number]) Technologist Note: None. Additional: None. EXAMINATION: 1.Lumbar [...] The patient was then transferred to the aged or disabled care worker unit for further observation and 2 hours [...] no high-grade central canal stenosis. There is ffhv-hh-cxvstmau facet osteoarthritis. There is mild bilateral neural foraminal stenosis. Procedure Note Magdalena Blackmon MD - 12/13/2024 PROCEDURE: FL MYELOGRAM 2 OR MORE REGIONS, CT LUMBAR POST MYELOGRAM, CT CERVICAL POST MYELOGRAM DATE/TIME OF EXAM: 12/08/2024 10:34 AM CLINICAL INFORMATION: PROCEDURE: FL MYELOGRAM 2 OR MORE REGIONS, CTLUMBAR POST MYELOGRAM, CT CERVICAL POST MYELOGRAM, DATE/TIME OF EXAM:12/08/2024 10:34 AM, LOCATION [facility] INDICATION: M54.50: Lumbar spine pain ADDITIONAL CLINICAL INFORMATION: Ordering Provider Reason For Exam: myelopathy (accession [id number]), chronic low back pain (accession [id number]) Technologist Note: None. Additional: None. EXAMINATION: 1.Lumbar [...] well. The patient wasthen transferred to the aged or disabled care worker unit for further observation and 2hours of [...] island in the right aspect of the W3pfbepwmfg body. Vertebral bodies are normal in height [...] is no high-grade central canal stenosis. Thereis elkg-bu-bqsbiydf facet osteoarthritis. There is mild bilateral neural [...] 1.Multilevel degenerative disc and joint disease as teqmkngflthcj-su-abrnz above, worse at L4-L5, as outlined. 2.Transitional anatomy as noted above. The report is dictated by Addi Arambula MD, (workforce development vice president) Attending Physician: Dr. Magdalena Blackmon Lead Mason Tender: Dr. Addi Arambula MD, (workforce development vice president) The procedure was performed by the: The certified teacher assistant, and the attending radiologist was present [...] CT Lumbar Post Myelogram (12/08/2024 10:25 AM COFFEE URN ATTENDANT) Anatomical Region Laterality Modality Spine Computed Tomogra phy 12/08/2024 1:17 PM COFFEE URN ATTENDANT Impressions 12/13/2024 12:15 PM COFFEE URN ATTENDANT IMPRESSION: 1.Successful lumbar puncture for cervical and [...] degenerative disc and joint disease as detailed pnwes-eh-zrsee above, worse at L4-L5, as outlined. 2.Transitional anatomy as noted above. The report is dictated by Addi Arambula MD, (workforce development vice president) Attending Physician: Dr. Magdalena Blackmon Lead Mason Tender: Dr. Addi Arambula MD, (workforce development vice president) The procedure was performed by the: The certified teacher assistant, and the attending radiologist was present for all critical and mariscal portions of the procedure, and was immediately available to furnish services during the entire procedure. The attending radiologist performed the following procedural activities: I Dr. Shamseldeen Mahmoud was there and supervised mariscal portions of the procedure, not scrubbed. IMagdalena MD have personally reviewed and interpreted this examination/study. > Interpreting Provider: Magdalena Blackmon MD on 12/13/2024 12:15 PM Narrative 12/13/2024 12:15 PM COFFEE URN ATTENDANT PROCEDURE: FL MYELOGRAM 2 OR MORE REGIONS, CT LUMBAR POST MYELOGRAM, CT CERVICAL POST MYELOGRAM DATE/TIME OF EXAM: 12/08/2024 10:34 AM CLINICAL INFORMATION: PROCEDURE: FL MYELOGRAM 2 OR MORE REGIONS, CT LUMBAR POST MYELOGRAM, CT CERVICAL POST MYELOGRAM, DATE/TIME OF EXAM: 12/08/2024 10:34 AM, LOCATION [facility] INDICATION: M54.50: Lumbar spine pain ADDITIONAL CLINICAL INFORMATION: Ordering Provider Reason For Exam: myelopathy (accession [id number]), chronic low back pain (accession [id number]) Technologist Note: None. Additional: None. EXAMINATION: 1.Lumbar [...] The patient was then transferred to the aged or disabled care worker unit for further observation and 2 hours [...] no high-grade central canal stenosis. There is usaf-qk-ojcimaqd facet osteoarthritis. There is mild bilateral neural foraminal stenosis. Procedure Note Magdalena Blackmon MD - 12/13/2024 PROCEDURE: FL MYELOGRAM 2 OR MORE REGIONS, CT LUMBAR POST MYELOGRAM, CT CERVICAL POST MYELOGRAM DATE/TIME OF EXAM: 12/08/2024 10:34 AM CLINICAL INFORMATION: PROCEDURE: FL MYELOGRAM 2 OR MORE REGIONS, CTLUMBAR POST MYELOGRAM, CT CERVICAL POST MYELOGRAM, DATE/TIME OF EXAM:12/08/2024 10:34 AM, LOCATION [facility] INDICATION: M54.50: Lumbar spine pain ADDITIONAL CLINICAL INFORMATION: Ordering Provider Reason For Exam: myelopathy (accession [id number]), chronic low back pain (accession [id number]) Technologist Note: None. Additional: None. EXAMINATION: 1.Lumbar [...] well. The patient wasthen transferred to the aged or disabled care worker unit for further observation and 2hours of [...] island in the right aspect of the X1slrmffhha body. Vertebral bodies are normal in height [...] is no high-grade central canal stenosis. Thereis kbij-id-jiihpijt facet osteoarthritis. There is mild bilateral neural [...] 1.Multilevel degenerative disc and joint disease as blseqcseylndv-du-xpxar above, worse at L4-L5, as outlined. 2.Transitional anatomy as noted above. The report is dictated by Addi Arambula MD, (workforce development vice president) Attending Physician: Dr. Magdalena Blackmon Lead Mason Tender: Dr. Addi Arambula MD, (workforce development vice president) The procedure was performed by the: The certified teacher assistant, and the attending radiologist was present for allcritical and mariscal portions of the procedure, and was immediately [facility] during the entire procedure. The attending radiologist performed the following procedural activities: IDr. Magdalena was there and supervised mariscal portions of the procedure, not scrubbed. IMagdalena MD have personally reviewed and interpretedthis examination/study. > Interpreting Provider: Magdalena Blackmon MD on 12/13/2024 12:15 PM Cornelio Lima MD CT ORDERABLES * CT Cervical Post Myelogram (12/08/2024 10:25 AM COFFEE URN ATTENDANT) Anatomical Region Laterality Modality Spine Computed Tomogra phy 12/08/2024 1:17 PM COFFEE URN ATTENDANT Impressions 12/13/2024 12:15 PM COFFEE URN ATTENDANT IMPRESSION: 1.Successful lumbar puncture for cervical and [...] degenerative disc and joint disease as detailed dykpn-ai-eiebd above, worse at L4-L5, as outlined. 2.Transitional anatomy as noted above. The report is dictated by Addi Arambula MD, (workforce development vice president) Attending Physician: Dr. Magdalena Blackmon Lead Mason Tender: Dr. Addi Arambula MD, (workforce development vice president) The procedure was performed by the: The certified teacher assistant, and the attending radiologist was present [...] 12/13/2024 12:15 PM Narrative 12/13/2024 12:15 PM COFFEE URN ATTENDANT PROCEDURE: FL MYELOGRAM 2 OR MORE REGIONS, CT LUMBAR POST MYELOGRAM, CT CERVICAL POST MYELOGRAM DATE/TIME OF EXAM: 12/08/2024 10:34 AM CLINICAL INFORMATION: PROCEDURE: FL MYELOGRAM 2 OR MORE REGIONS, CT LUMBAR POST MYELOGRAM, CT CERVICAL POST MYELOGRAM, DATE/TIME OF EXAM: 12/08/2024 10:34 AM, LOCATION [facility] INDICATION: M54.50: Lumbar spine pain ADDITIONAL CLINICAL INFORMATION: Ordering Provider Reason For Exam: myelopathy (accession [id number]), chronic low back pain (accession [id number]) Technologist Note: None. Additional: None. EXAMINATION: 1.Lumbar [...] The patient was then transferred to the aged or disabled care worker unit for further observation and 2 hours [...] no high-grade central canal stenosis. There is bpxl-ik-ssaaayqf facet osteoarthritis. There is mild bilateral neural foraminal stenosis. Procedure Note Magdalena Blackmon MD - 12/13/2024 PROCEDURE: FL MYELOGRAM 2 OR MORE REGIONS, CT LUMBAR POST MYELOGRAM, CT CERVICAL POST MYELOGRAM DATE/TIME OF EXAM: 12/08/2024 10:34 AM CLINICAL INFORMATION: PROCEDURE: FL MYELOGRAM 2 OR MORE REGIONS, CTLUMBAR POST MYELOGRAM, CT CERVICAL POST MYELOGRAM, DATE/TIME OF EXAM:12/08/2024 10:34 AM, LOCATION [facility] INDICATION: M54.50: Lumbar spine pain ADDITIONAL CLINICAL INFORMATION: Ordering Provider Reason For Exam: myelopathy (accession [id number]), chronic low back pain (accession [id number]) Technologist Note: None. Additional: None. EXAMINATION: 1.Lumbar [...] well. The patient wasthen transferred to the aged or disabled care worker unit for further observation and 2hours of [...] island in the right aspect of the N3ksidljldt body. Vertebral bodies are normal in height [...] is no high-grade central canal stenosis. Thereis kypr-bo-srobgvft facet osteoarthritis. There is mild bilateral neural [...] 1.Multilevel degenerative disc and joint disease as owrbrwprvskem-ap-yrnim above, worse at L4-L5, as outlined. 2.Transitional anatomy as noted above. The report is dictated by Addi Arambula MD, (workforce development vice president) Attending Physician: Dr. Magdalena Blackmon Lead Mason Tender: Dr. Addi Arambula MD, (workforce development vice president) The procedure was performed by the: The certified teacher assistant, and the attending radiologist was present for allcritical and mariscal portions of the procedure, and was immediately available [facility] services during the entire procedure. The attending radiologist performed the following procedural activities: I, Dr. Magdalena Blackmon was there and supervised mariscal portions of the procedure, not scrubbed. IMagdalena MD have personally reviewed and interpretedthis examination/study. > Interpreting Provider: Magdalena Blackmon MD on 12/13/2024 12:15 PM Cornelio Lima MD CT ORDERABLES * XR Spine Entire 2 or 3Vw (11/23/2024 11:09 AM COFFEE URN ATTENDANT) Anatomical Region Laterality Modality Spine Radiographic Erna ging 11/23/2024 11:3 1 AM COFFEE URN ATTENDANT Impressions 11/23/2024 11:34 AM COFFEE URN ATTENDANT IMPRESSION: Mild scoliosis. > Interpreting Provider: Baljinder Henson MD on 11/23/2024 11:34 AM Narrative 11/23/2024 11:34 AM COFFEE URN ATTENDANT PROCEDURE: XR SPINE ENTIRE 2 OR 3VW [...] 10 degrees, a lower thoracic levo curve [id number] degrees, and a lumbar dextro curve measuring [...] Spine 2 or 3Vw (11/23/2024 11:06 AM COFFEE URN ATTENDANT) Anatomical Region Laterality Modality Spine Radiographic Erna ging 11/23/2024 11:2 9 AM COFFEE URN ATTENDANT Impressions 11/23/2024 11:31 AM COFFEE URN ATTENDANT IMPRESSION: Moderate cervical spondylosis. > Interpreting Provider: Baljinder Henson MD on 11/23/2024 11:31 AM Narrative 11/23/2024 11:31 AM COFFEE URN ATTENDANT PROCEDURE: XR CERVICAL SPINE 2 OR 3VW [...] Spine 2 or 3Vw (11/23/2024 10:00 AM COFFEE URN ATTENDANT) Anatomical Region Laterality Modality Spine Computed Radiogr aphy 11/23/2024 10:3 8 AM COFFEE URN ATTENDANT Impressions 11/23/2024 10:39 AM COFFEE URN ATTENDANT IMPRESSION: Mild to moderate degenerative changes. > Interpreting Provider: Baljinder Henson MD on 11/23/2024 10:39 AM Narrative 11/23/2024 10:39 AM COFFEE URN ATTENDANT PROCEDURE: XR LUMBAR SPINE 2 OR 3VW [...] ORDERABLES * PATHOLOGY TISSUE (11/11/2024 10:16 AM COFFEE URN ATTENDANT) Case Report Surgical Pathology Report Case: [id number] Authorizing Provider: Sixto Cornell MD Collected: 11/11/2024 10:16 AM Ordering Location: [facility] ENDOSCOPY Received: 11/11/2024 10:58 AM Pathologist: Kenyatta Norris MD Specimens: A) - Polyp Ascending, ascending colon polyp B) - Polyp Descending, descending colon polyps 11/14/2024 3:20 PM COFFEE URN ATTENDANT [facility] Final Diagnosis Large intestine, ascending colon polyp, biopsy (A): - Tubular adenoma Large intestine, descending colon polyps, biopsy (B): - Tubular adenoma(s), fragmented 11/14/2024 3:20 PM COFFEE URN ATTENDANT [facility] Microscopic Description and Comment Microscopic examination substantiates the final diagnosis. 11/14/2024 3:20 PM COFFEE URN ATTENDANT [facility] Clinical History The patient is a 69-year-old woman who presents for high risk colon cancer surveillance (personal history of colonic polyps). Operative procedure/findings: Colonoscopy - 2 mm ascending colon polyp, 4 and 5 mm descending colon polyps, resected and retrieved 11/14/2024 3:20 PM [facility] PATH[facility] Gross Description The [...] cassette labeled B1. RB 11/14/2024 3:20 PM [facility] Pathologist Location at [facility] 11/14/2024 3:20 PM [facility] Disclaimer The performance characteristics of all immunohistochemical and indirect immunofluorescence stains (if any) cited in this report were determined by the Histopathology Laboratory of [facility]. Some of these tests were developed [...] the attending (teaching) pathologist. 11/14/2024 3:20 PM [facility] Embedded Images 11/14/2024 3:20 PM [facility] Biopsy, NOS POLYP / Unknown 11/11/2024 1 0:16 AM COFFEE URN ATTENDANT 11/11/2024 10:58 AM COFFEE URN ATTENDANT Comment:Pre-op diagnosis: Screen for colon cancer [Z12.11] Biopsy, NOS POLYP / Unknown 11/11/2024 1 0:19 AM COFFEE URN ATTENDANT 11/11/2024 10:58 AM COFFEE URN ATTENDANT Comment:Pre-op diagnosis: Screen for colon cancer [Z12.11] Sixto Cornell MD LAB - PATHOLOGY/CYTO LOGY ORDERABLES [facility] PATHOLOG[facility] LAB [address] [place], [place] [address] [phone] * ENDOSCOPY, COLON, SCREENING (11/11/2024 9:52 AM COFFEE URN ATTENDANT) Report Endoscopy POC Endoscopy Department Report _ [...] bowel preparation was evaluated using the BBPS ([place] Bowel Preparation Scale) with scores of: Right [...] non-mariscal portions. Procedure Code(s): --- Professional --- 15027, Colonoscopy, flexible; with removal of tumor(s), polyp(s), or other lesion(s) by snare technique 62790, 59, Colonoscopy, flexible; with biopsy, single or multiple Diagnosis Code(s): --- Professional --- Z86.010, Personal history of colonic polyps D12.2, Benign neoplasm of ascending colon D12.4, Benign neoplasm of descending colon K57.30, Diverticulosis of large intestine without perforation or abscess without bleeding CPT copyright 2021 [employer]. All rights reserved. The codes documented in this report are preliminary and upon wind farm electrical systems designer review may be revised to meet current compliance requirements. Sixto Cornell MD 11/11/2024 10:36:45 AM This report has been signed electronically. Note Initiated On: 11/11/2024 9:52 AM Number of Addenda: [address] [address] [facility] 11/11/2024 9:52 AM COFFEE URN ATTENDANT Sixto Cornell MD GI PROCEDURE ORDERAB LES Performing Organization Address [facility] Co de Phone Number [facility] * GLUCOSE - POINT OF CARE (11/11/2024 9:19 AM COFFEE URN ATTENDANT) Pathologist [facility] Glucose WB/POC 99 70 - 99 mg/dL 11/11/2024 9:54 AM COFFEE URN ATTENDANT [facility] Specimen Type Venous 11/11/2024 9:54 AM COFFEE URN ATTENDANT [facility] Blood BLOOD SPECIMEN / Unknown 11/11/2024 9:19 AM COFFEE URN ATTENDANT 11/11/2024 9:54 AM COFFEE URN ATTENDANT Sixto Cornell MD LAB - POINT OF CARE ORDERABLES Performing Organization Address [facility] Co de Phone Number [address] [phone], [facility] [phone] * CALPROTECTIN FECAL (11/07/2024 3:52 PM COFFEE URN ATTENDANT) Calprotectin Fecal 69 mcg/g [facility] Comment: Reference [...] suggested for borderline values. Test Performed at: [facility] [address] [place] [address] JARRELL CALDERON MD,PHD,EDGARDO Stool STOOL SPECIMEN / Unknown 11/07/2024 3:52 PM COFFEE URN ATTENDANT 11/08/2024 4:47 AM COFFEE URN ATTENDANT Yolanda Greer APRN-POLICE RADIO DISPATCHER LAB - CRISTINA DY FLUID ORDERABLES Performing Organization Address [facility] Co de Phone Number [address] [address] * CULTURE STOOL PANEL (11/07/2024 3:52 PM COFFEE URN ATTENDANT) Campylobacter Antigen [facility] Comment: CAMPYLOBACTER SPP. AG,EIA Micro Number: [id number] Test Status: Final Specimen Source: Stool Specimen Quality: Adequate Campy Ag Result: Not Detected Reference Range: Not Detected EIA [facility] Comment: SHIGA TOXINS, EIA W/RFL TO E.COLI O157 CULTURE Micro Number: [id number] Test Status: Final Specimen Source: Stool Specimen Quality: Adequate Shiga Toxin: Not Detected Reference Range: Not Detected Culture [facility] Comment: SALMONELLA AND SHIGELLA, CULTURE Micro Number: [id number] Test Status: Final Specimen Source: Stool Specimen Quality: Adequate Result: No Salmonella or Shigella isolated Test Performed at: [facility] [address] SAROJ FAUSTIN MD Stool STOOL SPECIMEN / Unknown 11/07/2024 3:52 PM COFFEE URN ATTENDANT 11/07/2024 11:51 PM COFFEE URN ATTENDANT Yolanda Greer [facility] - [place] CROBIOLOGY ORDERABLES Performing Organization Address [facility] Co de Phone Number [address] [address] * C DIFFICILE CYTOTOXIN (11/07/2024 3:51 PM COFFEE URN ATTENDANT) Cytotoxin Assay Stool NOT DETECTED [facility] Comment: REFERENCE RANGE: NOT DETECTED Per [facility] the Clostridium difficile cytotoxicity assay, order code 4408, has served as a historical gold standard for diagnosing clinical significant disease caused by Clostridium difficile, however, it is not timely for routine diagnosis. ASM and ACG guidelines now recognize either two step testing using Clostridium difficile toxin/Glutamate Dehydrogenase (GDH) with Reflex to PCR, order code 58121 or Clostridium difficile toxin B, Qualitative real time PCR, test code 36132 to be more sensitive and timely methods for the diagnosis of C. difficile colitis. For additional information, please refer to http://education.Soshowise/faq/GRU082 (This link is being provided for informational/ educational purposes only.) Test Performed at: [facility] [address] [place] [address] JARRELL CALDERON MD,PHD,EDGARDO Stool STOOL SPECIMEN / Unknown 11/07/2024 3:51 PM COFFEE URN ATTENDANT 11/08/2024 4:58 AM COFFEE URN ATTENDANT Yolanda [facility]HAMM[facility] LAB - [place] CROBIOLOGY ORDERABLES [facility] [address] [place] [address] * PROC DEEP BRAIN STIMULATOR (11/03/2024 2:08 PM COFFEE URN ATTENDANT) Narrative Moncho Salcedo APRN-CNP - 11/03/2024 2:08 PM COFFEE URN ATTENDANT Moncho Salcedo APRN-CNP 11/03/2024 4:00 PM Please see office notes for documentation- Thanks Moncho MUHAMMAD PROCEDURE/MINOR SURGICAL ORDERABLES * HEMOGLOBIN A1C - POINT OF CARE (AMB) [facility] (04/04/2024 11:34 AM CDT) Hemoglobin A1c POCT 5.4 % [facility] [address] [place] [address] BLOOD SPECIMEN / Unknown 04/04/2024 11:34 AM CDT Kerry Coffman DO LAB - POINT OF CARE ORDERABLES Performing Organization Address City/[facility]/ZIP Co de Phone Number [facility] [address] [facility] [address] [facility] [place] [address] [phone] * MICROALB/CREAT RATIO URINE RANDOM PANEL (02/05/2023 [...] within a diagnostic category. Test Performed at: [facility] [address] [place] [address] SAROJ FAUSTIN MD 02/05/2023 12:2 6 PM CDT 02/05/2023 12:27 PM CDT Marquise Adames MD LAB - URINE CHEMISTR Y ORDERABLES [facility] [address] [place] [address] from Last 3 Months or Most Recently Relevant to Health Maintenance Advance Directives * Full Code (Latest Code Status on File) Date Activated Date Inactivated Comments 08/29/2022 4:40 PM 08/31/2022 1:59 PM * Full Code Date Activated Date Inactivated Comments 03/17/2022 3:37 PM 03/19/2022 1:47 PM Care Teams Asbestos Textile Supervisor Relationship Specialty Start Date End Date Kerry Coffman DO [address] [place] [address] PCP - General Internal Medicine 12/15/23 Kerry Coffman DO [address] DIV OF [facility] [place] [address] PCP - Attributed-[facility] TAYLOR P4P 12/10/24
--- OUTSIDE RECORDS SUMMARY | 2025-01-16 15:08 | XMS_ITS | Encounter Summary ---
Author Organization [facility] Address [address] [place] [address] Care Team Providers Care Mma Fighter Name Role Phone Meghna Kerry FRANKS Primary Care Provider [phone] Kerry Coffman DO Unavailable [phone] Reason for Visit * Reason Onset Date Comments MEDICATION REFILL 01/10/2025 Encounter Details Date Type Department Care Team (Late st Contact Info) Description 01/10/2025 Refill [facility] - Neurology [address] [place] [address] [phone] Moncho Salcedo [facility]N-[facility] [address] [place] [address] [phone] MEDICATION REFILL Social History Tobacco Use Types Packs/Day Years [...] Sex Assigned at Female 09/16/2024 2:41 PM CANE STRIPPER Gender Identity Female 09/16/2024 2:41 PM CANE STRIPPER Sexual Orientation Straight 09/16/2024 2: 41 PM CANE STRIPPER documented as of this encounter Functional Status [...] Description 01/25/2025 10:30 AM CDT Office Visit [facility] - GI [address] [place] [address] [phone] Yolanda Greer, SENIOR DATASTAGE DEVELOPER[facility] [address] [place] [phone] 01/31/2025 11:00 AM CDT Office Visit [facility] - Internal Medicine [address] , [address] [phone] Kerry Coffman DO [address] [place] [address] OF [facility] [place] [address] 02/01/2025 10:30 AM CDT Office Visit [facility] - Orthopedics [address] [place] [address] [phone] Cornelio Lima MD [address] [place] [address] 02/09/2025 11:15 AM CDT Office Visit [facility] - Ophthalmology [address] [place] [address] [phone] Percy Matute MD [address] [place] [address] [place] [phone] 02/09/2025 4:00 PM CDT Office Visit [facility] - Allergy [address] [place] [address], [place] [phone] Papito Morales MD [address] [place] [address] 2L DIV OF ALLERGY/[place] [address] 03/02/2025 1:00 PM CDT Office Visit [facility] - Neurology [address] [place] [address], [place] [phone] Moncho Salcedo [facility] [address] [place] [address] 1L [place] [phone] 04/13/2025 3:00 PM CDT Office Visit [facility] - Allergy [address] [place] [address], [place] [phone] Papito Morales MD [address] [place] [address] 2L DIV OF ALLERGY/[place] [address] documented as of this encounter Goals Goal Patient Goal Type Associated Problems Recent Progress Patient-Stated? Author Medication Management General On track( 025 10:42 AM CANE STRIPPER) Marion Scott, RN Note: Expected end date: ongoing Interventions: Take all medications as prescribed documented as of this encounter Visit Diagnoses Diagnosis Cognitive decline Unspecified persistent mental disorders due to conditions classified elsewhere documented in this encounter Care Teams Mma Fighter Relationship Specialty Start Date End Date Kerry Coffman DO [address] [place] [address] 2L DIV [place] [address] PCP - General Internal Medicine 12/15/23 Kerry Coffman DO [address] OF [facility] [place] [address] PCP - Attributed-[facility] P4P 12/10/24 documented as of this encounter
--- OUTSIDE RECORDS SUMMARY | 2025-01-16 15:09 | XMS_ITS | Clinical Summary ---
Author Organization [facility] Address [address] [place] [phone] Care Team Providers Care Metal Hanger Name Role Phone Kerry Coffman Primary Care [...] 1 tablet (2 mg total) by mouth desk maker before breakfast 4 Active azelastine (ASTELIN) 137 [...] Department Care Team Description 11/21/2024 1:50 PM LUMBER PILER - 11/21/2024 11:59 PM LUMBER PILER Hospital Encounter [facility] Radiology at [facility] [address] [place] [address] Discharge Disposition: Discharge to home or self care 11/21/2024 1:20 PM LUMBER PILER Office Visit [facility] Rheumatology [address] [facility] 2nd Floor [address] [place] [phone] Marialuisa Franklin NP Rheumatoid arthritis with negative rheumatoid factor, involving unspecified site (HCC) (Primary Dx); High risk medication use 11/15/2024 10:40 AM LUMBER PILER - 11/15/2024 11:59 PM LUMBER PILER Hospital Encounter [facility] [address] [place] [address] High risk medication use Discharge Disposition: Discharge to home or self care 11/15/2024 10:30 AM LUMBER PILER Infusion [facility] Infusion Therapy [address] [facility] 2nd Floor [address] [place] [phone] Rheumatoid arthritis with negative rheumatoid factor, involving unspecified site (HCC) (Primary Dx) 10/18/2024 10:30 AM LUMBER PILER Infusion [facility] Infusion Therapy [address] [facility] 2nd Floor [address] [place] [phone] Rheumatoid arthritis with negative rheumatoid factor, involving [...] on file Legal Sex Female 10:45 PM LUMBER PILER Gender Identity Not on file Sexual Orientation Not on file Obstetrics History Last Filed Vital Signs Vital Sign Reading Time Taken Comments Blood Pressure 93/58 11/21/2024 1:01 PM LUMBER PILER Pulse 63 11/21/2024 1:01 PM LUMBER PILER Temperature 36.6 C (97.8 F) 11/21/2024 1:01 PM LUMBER PILER Respiratory Rate - - Oxygen Saturation 99% 11/21/2024 1:01 PM LUMBER PILER Inhaled Oxygen Concentration - - Weight 68 kg (150 lb) 11/21/2024 1:01 PM LUMBER PILER Height 167.6 cm (5' 5.98 ) 11/21/2024 1:01 PM CS T Body Mass Index 24.22 11/21/2024 1:01 PM LUMBER PILER Plan of Treatment Health Maintenance Due Date [...] Read Routine (OP Routine) 11/21/2024 2:04 PM LUMBER PILER Rheumatoid arthritis with negative rheumatoid factor, involving unspecified site (HCC) XR HAND LEFT 3 OR MORE VIEWS Schedule Routine, Read Routine (OP Routine) 11/21/2024 2:04 PM LUMBER PILER Rheumatoid arthritis with negative rheumatoid factor, involving unspecified site (HCC) XR WRIST RIGHT 3 OR MORE VIEWS Schedule Routine, Read Routine (OP Routine) 11/21/2024 2:04 PM LUMBER PILER Rheumatoid arthritis with negative rheumatoid factor, involving unspecified site (HCC) XR WRIST LEFT 3 OR MORE VIEWS Schedule Routine, Read Routine (OP Routine) 11/21/2024 2:04 PM LUMBER PILER Rheumatoid arthritis with negative rheumatoid factor, involving unspecified site (HCC) EGFR Routine 11/15/2024 1:46 PM LUMBER PILER High risk medication use DIFFERENTIAL AUTO Routine 11/15/2024 1:4 6 PM LUMBER PILER High risk medication use COMPREHENSIVE METABOLIC PANEL Routine 11/15/2024 1:46 PM LUMBER PILER High risk medication use CBC WITH AUTO DIFFERENTIAL Routine 11/15/2024 1:46 PM LUMBER PILER High risk medication use TB TEST, QUANTIFERON GOLD Routine 11/07/2024 3:55 PM LUMBER PILER High risk medication use DEXA AXIAL SKELETON [...] 3 or More Views (11/21/2024 2:04 PM LUMBER PILER) Anatomical Region Laterality Modality Upper Extremities, Hand Right Computed Radiography 11/21/2024 2:23 PM LUMBER PILER Addenda Addendum by Pipe Valdivia MD on 11/22/2024 12:50 PM LUMBER PILER ADDENDUM: Progressive polyarticular erosions involving the bilateral hands and wrists, most prominent in the carpus bilaterally. This is consistent with progressive inflammatory arthritis in this patient with known rheumatoid arthritis. Electronically signed by: Pipe Valdivia MD Impressions 11/21/2024 2:23 PM LUMBER PILER 1. Healing fracture of the left 4th metacarpal shaft with shortening and mild ulnar displacement. 2. Polyarticular erosions involving the bilateral hands and wrists, most prominent in the carpus bilaterally. This is consistent with inflammatory arthritis. Statistically, this is most likely due to rheumatoid arthritis. Electronically signed by: Pipe Valdivia MD Narrative 11/21/2024 2:23 PM LUMBER PILER EXAMINATION: XR WRIST LEFT 3 OR MORE [...] 3 or More Views (11/21/2024 2:04 PM LUMBER PILER) Anatomical Region Laterality Modality Upper Extremities, Hand Left Computed Radiography 11/21/2024 2:23 PM LUMBER PILER Addenda Addendum by Pipe Valdivia MD on 11/22/2024 12:50 PM LUMBER PILER ADDENDUM: Progressive polyarticular erosions involving the bilateral hands and wrists, most prominent in the carpus bilaterally. This is consistent with progressive inflammatory arthritis in this patient with known rheumatoid arthritis. Electronically signed by: Pipe Valdivia MD Impressions 11/21/2024 2:23 PM LUMBER PILER 1. Healing fracture of the left 4th metacarpal shaft with shortening and mild ulnar displacement. 2. Polyarticular erosions involving the bilateral hands and wrists, most prominent in the carpus bilaterally. This is consistent with inflammatory arthritis. Statistically, this is most likely due to rheumatoid arthritis. Electronically signed by: Pipe Valdivia MD Narrative 11/21/2024 2:23 PM LUMBER PILER EXAMINATION: XR WRIST LEFT 3 OR MORE [...] 3 or More Views (11/21/2024 2:04 PM LUMBER PILER) Anatomical Region Laterality Modality Upper Extremities, Wrist Right Compute d Radiography 11/21/2024 2:23 PM LUMBER PILER Addenda Addendum by Pipe Valdivia MD on 11/22/2024 12:50 PM LUMBER PILER ADDENDUM: Progressive polyarticular erosions involving the bilateral hands and wrists, most prominent in the carpus bilaterally. This is consistent with progressive inflammatory arthritis in this patient with known rheumatoid arthritis. Electronically signed by: Pipe Valdivia MD Impressions 11/21/2024 2:23 PM LUMBER PILER 1. Healing fracture of the left 4th metacarpal shaft with shortening and mild ulnar displacement. 2. Polyarticular erosions involving the bilateral hands and wrists, most prominent in the carpus bilaterally. This is consistent with inflammatory arthritis. Statistically, this is most likely due to rheumatoid arthritis. Electronically signed by: Pipe Valdivia MD Narrative 11/21/2024 2:23 PM LUMBER PILER EXAMINATION: XR WRIST LEFT 3 OR MORE [...] signed by: Pipe Valdivia MD Marialuisa Franklin EVAPORATOR SUPERVISOR IMG XR PROCEDURES Edited R esult - Final * XR Wrist Left 3 or More Views (11/21/2024 2:04 PM LUMBER PILER) Anatomical Region Laterality Modality Upper Extremities, Wrist Left Compute d Radiography 11/21/2024 2:23 PM LUMBER PILER Addenda Addendum by Pipe Valdivia MD on 11/22/2024 12:50 PM LUMBER PILER ADDENDUM: Progressive polyarticular erosions involving the bilateral hands and wrists, most prominent in the carpus bilaterally. This is consistent with progressive inflammatory arthritis in this patient with known rheumatoid arthritis. Electronically signed by: Pipe Valdivia MD Impressions 11/21/2024 2:23 PM LUMBER PILER 1. Healing fracture of the left 4th metacarpal shaft with shortening and mild ulnar displacement. 2. Polyarticular erosions involving the bilateral hands and wrists, most prominent in the carpus bilaterally. This is consistent with inflammatory arthritis. Statistically, this is most likely due to rheumatoid arthritis. Electronically signed by: Pipe Valdivia MD Narrative 11/21/2024 2:23 PM LUMBER PILER EXAMINATION: XR WRIST LEFT 3 OR MORE [...] - Final * eGFR (11/15/2024 1:46 PM LUMBER PILER) eGFR 67 >=60 mL/min/1. 73 m2 Comment: [...] last reviewed 2021. Blood 11/15/2024 1:46 PM LUMBER PILER 11/15/2024 2:48 PM LUMBER PILER us Marialuisa Franklin NP LAB BLOOD ORDERABLES Final Result [facility] Department [place] [address] * Differential, auto (11/15/2024 1:46 PM LUMBER PILER) Neutrophil abs 3.2 1.5 - 6.5 K/cumm Imm gran abs 0.0 0.0 - 0.1 K/cumm [facility] Lymphocyte abs 1.1 0.8 - 3.3 K/cumm [facility] Monocyte abs 0.6 0.2 - 0.8 K/cumm [facility] Eosinophil abs 0.1 0.0 - 0.5 K/cumm [facility] Basophil abs 0.1 0.0 - 0.1 K/cumm [facility] Neutrophil pct 63.6 % [facility] Comment: Interpretive Data Percent cell count reference ranges are not reported, since discordance with absolute values may lead to misinterpretation of CBC data. Current Interpretive Data was last revised on 2018. Imm gran pct 0.4 % [facility] Comment: Interpretive Data Percent cell count reference ranges are not reported, since discordance with absolute values may lead to misinterpretation of CBC data. Current Interpretive Data was last revised on 2018. Lymphocyte pct 21.4 % [facility] Comment: Interpretive Data Percent cell count reference ranges are not reported, since discordance with absolute values may lead to misinterpretation of CBC data. Current Interpretive Data was last revised on 2018. Monocyte pct 11.4 % [facility] Comment: Interpretive Data Percent cell count reference ranges are not reported, since discordance with absolute values may lead to misinterpretation of CBC data. Current Interpretive Data was last revised on 2018. Eosinophil pct 2.0 % [facility] Comment: Interpretive Data Percent cell count reference ranges are not reported, since discordance with absolute values may lead to misinterpretation of CBC data. Current Interpretive Data was last revised on 2018. Basophil pct 1.2 % [facility] Comment: Interpretive Data Percent cell count reference ranges are not reported, since discordance with absolute values may lead to misinterpretation of CBC data. Current Interpretive Data was last revised on 2018. Blood 11/15/2024 1:46 PM LUMBER PILER 11/15/2024 1:59 PM LUMBER PILER Marialuisa Franklin EVAPORATOR SUPERVISOR LAB BLOOD ORDERABLES Final Result [facility] [place] [address] * CBC with auto differential (11/15/2024 1:46 PM LUMBER PILER) Pathologist [facility] WBC 5.0 3.8 - 9.9 K/cumm Hgb 13.7 11.9 - 15.5 g/dL [facility] Hct 41.1 35.6 - 45.5 % [facility] Plt 256 150 - 400 K/cumm [facility] MPV 11.0 9.1 - 12.3 fL [facility] RBC 4.32 3.90 - 5.20 M/cumm [facility] MCV 95.1 81.3 - 96.4 fL [facility] MCH 31.7 27.1 - 33.3 pg [facility] MCHC 33.3 32.3 - 35.7 g/dL [facility] RDW CV 13.3 11.1 - 14.9 % [facility] RDW SD 47.1 35.7 - 48.1 fL [facility] NRBC abs 0.00 0.00 - 0.01 K/cumm [facility] Blood 11/15/2024 1:46 PM LUMBER PILER 11/15/2024 1:59 PM LUMBER PILER Marialuisa Franklin NP LAB BLOOD ORDERABLES Final Result [facility] [place] [address] * Comprehensive metabolic panel (11/15/2024 1:46 PM LUMBER PILER) Pathologist [facility] Sodium 139 135 - 145 mmol/L Potassium, pl 4.5 3.3 - 4.9 mmol/L [facility] Chloride 103 97 - 110 mmol/L [facility] CO2 26 22 - 32 mmol/L [facility] Anion gap 10 2 - 15 mmol/L [facility] BUN 15 6 - 25 mg/dL [facility] Creatinine 0.92 0.60 - 1.10 mg/dL [facility] Glucose 105 70 - 199 mg/dL [facility] Comment: Interpretive Data Fasting glucose [...] 2022. Calcium 9.5 8.5 - 10.3 mg/dL [facility] Bilirubin, total 0.3 0.1 - 1.2 mg/dL [facility] Protein, pl 7.1 6.5 - 8.5 g/dL [facility] Albumin 4.3 3.5 - 5.0 g/dL [facility] Alk phos 121 40 - 130 Units/L [facility] ALT 19 7 - 45 Units/L [facility] AST 22 10 - 45 Units/L [facility] Blood 11/15/2024 1:46 PM LUMBER PILER 11/15/2024 2:48 PM LUMBER PILER us Marialuisa Franklin EVAPORATOR SUPERVISOR LAB BLOOD ORDERABLES Final Result [facility] Department [place] [address] * TB test, quantiferon gold (11/07/2024 3:55 PM LUMBER PILER) [facility] QuantiFERON(R)-T B Gold Plus, 1 [...] T-lymphocytes. For additional information, please refer to https://education.[employer].InSpa/faq/SKN506 (This link is being provided for informational/ educational purposes only.) Blood 11/07/2024 3:55 PM LUMBER PILER 11/07/2024 3:56 PM LUMBER PILER Marialuisa Franklin NP LAB BLOOD ORDERABLES Final Result [facility] [address] [place] [address] * Dexa Axial Skeleton Bone Density 1 [...] by the International Society of Clinical Densitometry. [id number] Marialuisa Franklin EVAPORATOR SUPERVISOR IMG DXA PROCEDURES Final R esult * Hepatitis panel, acute (05/24/2020 9:45 AM CDT) Hep A IgM Nonreactive Nonreactive [facility] Comment: Interpretive Data: If Hep A IgM Ab is reported as Equivocal, a new sample should be drawn in two weeks for testing. Current interpretive data was last revised on 19. Hep B core IgM Nonreactive Nonreactive [facility] Comment: Interpretive Data If HepB Core IgM Ab is reported as Equivocal, a new sample should be drawn in two weeks for testing. Current interpretive data was last revised on 19. Hep C Ab Nonreactive Nonreactive [facility] Comment:Antibodies to HCV no t detected. Does NOT exclude the possibility of recent exposure to HCV. HepBsAg Nonreactive Nonreactive [facility] Blood specimen (specimen) 05/24/2020 9:45 AM CDT 05/24/2020 12:08 PM CDT Marialuisa Franklin NP LAB MICROBIOLOGY - GENERAL ORDERABLES Edited Result - Final [facility] Department [place] [address] from Last 3 Months or Most Recently Relevant to Health Maintenance Insurance IDPA [facility] MEDICARE ADVANTAGE [facility] MEDICARE MEDICARE [facility] MEDICARE ADVANTAGE Care Teams Metal Hanger Relationship Specialty Start Date End Date Kerry Coffman DO [address] [place] [address] PCP - General Internal Medicine 04/19/24
--- OUTSIDE RECORDS SUMMARY | 2025-01-16 15:09 | XMS_ITS | Referral Summary ---
Author Organization [facility] Address [address] [place] [phone] Care Team Providers Care Machine Baster Name Role Phone Kerry Coffman DO Primary Care Provider Encounters Date Type Department Care Team Description 11/21/2024 1:50 PM SEAM FELLER - 11/21/2024 11:59 PM SEAM FELLER Hospital Encounter [facility] Radiology at [facility] [address] [place] [id number] Discharge Disposition: Discharge to home or self care 11/21/2024 1:20 PM SEAM FELLER Office Visit [facility] Rheumatology [address] [facility] 2nd Floor [address] [place] [phone] Marialuisa Franklin, SAMI Rheumatoid arthritis with negative rheumatoid factor, involving unspecified site (HCC) (Primary Dx); High risk medication use 11/15/2024 10:40 AM SEAM FELLER - 11/15/2024 11:59 PM SEAM FELLER Hospital Encounter [address] [address] High risk medication use Discharge Disposition: Discharge to home or self care 11/15/2024 10:30 AM SEAM FELLER Infusion [facility] Infusion Therapy [address] [facility] 2nd Floor [address] [place] [phone] Rheumatoid arthritis with negative rheumatoid factor, involving unspecified site (HCC) (Primary Dx) 10/18/2024 10:30 AM SEAM FELLER Infusion [facility] Infusion Therapy [address] [facility] 2[address] Floor [address] [place] [phone] Rheumatoid arthritis with negative rheumatoid factor, involving [...] 1 tablet (2 mg total) by mouth corporate director of pharmacy before breakfast 4 Active azelastine (ASTELIN) 137 [...] on file Legal Sex Female 10:45 PM SEAM FELLER Gender Identity Not on file Sexual Orientation Not on file Last Filed Vital Signs Vital Sign Reading Time Taken Comments Blood Pressure 93/58 11/21/2024 1:01 PM SEAM FELLER Pulse 63 11/21/2024 1:01 PM SEAM FELLER Temperature 36.6 C (97.8 F) 11/21/2024 1:01 PM SEAM FELLER Respiratory Rate - - Oxygen Saturation 99% 11/21/2024 1:01 PM SEAM FELLER Inhaled Oxygen Concentration - - Weight 68 kg (150 lb) 11/21/2024 1:01 PM SEAM FELLER Height 167.6 cm (5' 5.98 ) 11/21/2024 1:01 PM CS T Body Mass Index 24.22 11/21/2024 1:01 PM SEAM FELLER Plan of Treatment Not on file Procedures Procedure Name Priority Date/Time Associated Diagnosis Comments XR HAND RIGHT 3 OR MORE VIEWS Schedule Routine, Read Routine (OP Routine) 11/21/2024 2:04 PM SEAM FELLER Rheumatoid arthritis with negative rheumatoid factor, involving unspecified site (HCC) XR HAND LEFT 3 OR MORE VIEWS Schedule Routine, Read Routine (OP Routine) 11/21/2024 2:04 PM SEAM FELLER Rheumatoid arthritis with negative rheumatoid factor, involving unspecified site (HCC) XR WRIST RIGHT 3 OR MORE VIEWS Schedule Routine, Read Routine (OP Routine) 11/21/2024 2:04 PM SEAM FELLER Rheumatoid arthritis with negative rheumatoid factor, involving unspecified site (HCC) XR WRIST LEFT 3 OR MORE VIEWS Schedule Routine, Read Routine (OP Routine) 11/21/2024 2:04 PM SEAM FELLER Rheumatoid arthritis with negative rheumatoid factor, involving unspecified site (HCC) EGFR Routine 11/15/2024 1:46 PM SEAM FELLER High risk medication use DIFFERENTIAL AUTO Routine 11/15/2024 1:4 6 PM SEAM FELLER High risk medication use COMPREHENSIVE METABOLIC PANEL Routine 11/15/2024 1:46 PM SEAM FELLER High risk medication use CBC WITH AUTO DIFFERENTIAL Routine 11/15/2024 1:46 PM SEAM FELLER High risk medication use TB TEST, QUANTIFERON GOLD Routine 11/07/2024 3:55 PM SEAM FELLER High risk medication use DEXA AXIAL SKELETON [...] 3 or More Views (11/21/2024 2:04 PM SEAM FELLER) Anatomical Region Laterality Modality Upper Extremities, Hand Right Computed Radiography 11/21/2024 2:23 PM SEAM FELLER Addenda Addendum by Pipe Valdivia MD on 11/22/2024 12:50 PM SEAM FELLER ADDENDUM: Progressive polyarticular erosions involving the bilateral hands and wrists, most prominent in the carpus bilaterally. This is consistent with progressive inflammatory arthritis in this patient with known rheumatoid arthritis. Electronically signed by: Pipe Valdivia MD Impressions 11/21/2024 2:23 PM SEAM FELLER 1. Healing fracture of the left 4th metacarpal shaft with shortening and mild ulnar displacement. 2. Polyarticular erosions involving the bilateral hands and wrists, most prominent in the carpus bilaterally. This is consistent with inflammatory arthritis. Statistically, this is most likely due to rheumatoid arthritis. Electronically signed by: Pipe Valdivia MD Narrative 11/21/2024 2:23 PM SEAM FELLER EXAMINATION: XR WRIST LEFT 3 OR MORE [...] signed by: Pipe Valdivia MD Marialuisa Franklin EMBLEM DRAWER IN IMG XR PROCEDURES Edited R esult - Final * XR Hand Left 3 or More Views (11/21/2024 2:04 PM SEAM FELLER) Anatomical Region Laterality Modality Upper Extremities, Hand Left Computed Radiography 11/21/2024 2:23 PM SEAM FELLER Addenda Addendum by Pipe Valdivia MD on 11/22/2024 12:50 PM SEAM FELLER ADDENDUM: Progressive polyarticular erosions involving the bilateral hands and wrists, most prominent in the carpus bilaterally. This is consistent with progressive inflammatory arthritis in this patient with known rheumatoid arthritis. Electronically signed by: Pipe Valdivia MD Impressions 11/21/2024 2:23 PM SEAM FELLER 1. Healing fracture of the left 4th metacarpal shaft with shortening and mild ulnar displacement. 2. Polyarticular erosions involving the bilateral hands and wrists, most prominent in the carpus bilaterally. This is consistent with inflammatory arthritis. Statistically, this is most likely due to rheumatoid arthritis. Electronically signed by: Pipe Valdivia MD Narrative 11/21/2024 2:23 PM SEAM FELLER EXAMINATION: XR WRIST LEFT 3 OR MORE [...] 3 or More Views (11/21/2024 2:04 PM SEAM FELLER) Anatomical Region Laterality Modality Upper Extremities, Wrist Right Compute d Radiography 11/21/2024 2:23 PM SEAM FELLER Addenda Addendum by Pipe Valdivia MD on 11/22/2024 12:50 PM SEAM FELLER ADDENDUM: Progressive polyarticular erosions involving the bilateral hands and wrists, most prominent in the carpus bilaterally. This is consistent with progressive inflammatory arthritis in this patient with known rheumatoid arthritis. Electronically signed by: Pipe Valdivia MD Impressions 11/21/2024 2:23 PM SEAM FELLER 1. Healing fracture of the left 4th metacarpal shaft with shortening and mild ulnar displacement. 2. Polyarticular erosions involving the bilateral hands and wrists, most prominent in the carpus bilaterally. This is consistent with inflammatory arthritis. Statistically, this is most likely due to rheumatoid arthritis. Electronically signed by: Pipe Valdivia MD Narrative 11/21/2024 2:23 PM SEAM FELLER EXAMINATION: XR WRIST LEFT 3 OR MORE [...] 3 or More Views (11/21/2024 2:04 PM SEAM FELLER) Anatomical Region Laterality Modality Upper Extremities, Wrist Left Compute d Radiography 11/21/2024 2:23 PM SEAM FELLER Addenda Addendum by Pipe Valdivia MD on 11/22/2024 12:50 PM SEAM FELLER ADDENDUM: Progressive polyarticular erosions involving the bilateral hands and wrists, most prominent in the carpus bilaterally. This is consistent with progressive inflammatory arthritis in this patient with known rheumatoid arthritis. Electronically signed by: Pipe Valdivia MD Impressions 11/21/2024 2:23 PM SEAM FELLER 1. Healing fracture of the left 4th metacarpal shaft with shortening and mild ulnar displacement. 2. Polyarticular erosions involving the bilateral hands and wrists, most prominent in the carpus bilaterally. This is consistent with inflammatory arthritis. Statistically, this is most likely due to rheumatoid arthritis. Electronically signed by: Pipe Valdivia MD Narrative 11/21/2024 2:23 PM SEAM FELLER EXAMINATION: XR WRIST LEFT 3 OR MORE [...] - Final * eGFR (11/15/2024 1:46 PM SEAM FELLER) eGFR 67 >=60 mL/min/1. 73 m2 Comment: [...] last reviewed 2021. Blood 11/15/2024 1:46 PM SEAM FELLER 11/15/2024 2:48 PM SEAM FELLER us Marialuisa Franklin EMBLEM DRAWER IN LAB BLOOD ORDERABLES Final Result [facility] [place] [address] * Differential, auto (11/15/2024 1:46 PM SEAM FELLER) Neutrophil abs 3.2 1.5 - 6.5 K/cumm Imm gran abs 0.0 0.0 - 0.1 K/cumm [facility] Lymphocyte abs 1.1 0.8 - 3.3 K/cumm [facility] Monocyte abs 0.6 0.2 - 0.8 K/cumm [facility] Eosinophil abs 0.1 0.0 - 0.5 K/cumm [facility] Basophil abs 0.1 0.0 - 0.1 K/cumm [facility] Neutrophil pct 63.6 % [facility] Comment: Interpretive Data Percent cell count reference ranges are not reported, since discordance with absolute values may lead to misinterpretation of CBC data. Current Interpretive Data was last revised on 2018. Imm gran pct 0.4 % [facility] Comment: Interpretive Data Percent cell count reference ranges are not reported, since discordance with absolute values may lead to misinterpretation of CBC data. Current Interpretive Data was last revised on 2018. Lymphocyte pct 21.4 % [facility] Comment: Interpretive Data Percent cell count reference ranges are not reported, since discordance with absolute values may lead to misinterpretation of CBC data. Current Interpretive Data was last revised on 2018. Monocyte pct 11.4 % [facility] Comment: Interpretive Data Percent cell count reference ranges are not reported, since discordance with absolute values may lead to misinterpretation of CBC data. Current Interpretive Data was last revised on 2018. Eosinophil pct 2.0 % [facility] Comment: Interpretive Data Percent cell count reference ranges are not reported, since discordance with absolute values may lead to misinterpretation of CBC data. Current Interpretive Data was last revised on 2018. Basophil pct 1.2 % [facility] Comment: Interpretive Data Percent cell count reference ranges are not reported, since discordance with absolute values may lead to misinterpretation of CBC data. Current Interpretive Data was last revised on 2018. Blood 11/15/2024 1:46 PM SEAM FELLER 11/15/2024 1:59 PM SEAM FELLER Marialuisa Franklin NP LAB BLOOD ORDERABLES Final Result [facility] [address] [facility] Department [place] [address] * CBC with auto differential (11/15/2024 1:46 PM SEAM FELLER) WBC 5.0 3.8 - 9.9 K/cumm Hgb 13.7 11.9 - 15.5 g/dL [facility] Hct 41.1 35.6 - 45.5 % [facility] Plt 256 150 - 400 K/cumm [facility] MPV 11.0 9.1 - 12.3 fL [facility] RBC 4.32 3.90 - 5.20 M/cumm [facility] MCV 95.1 81.3 - 96.4 fL [facility] MCH 31.7 27.1 - 33.3 pg [facility] MCHC 33.3 32.3 - 35.7 g/dL [facility] RDW CV 13.3 11.1 - 14.9 % [facility] RDW SD 47.1 35.7 - 48.1 fL [facility] NRBC abs 0.00 0.00 - 0.01 K/cumm [facility] Blood 11/15/2024 1:46 PM SEAM FELLER 11/15/2024 1:59 PM SEAM FELLER Marialuisa Franklin EMBLEM DRAWER IN LAB BLOOD ORDERABLES Final Result [facility] [address] [facility] Department [place] [address] * Comprehensive metabolic panel (11/15/2024 1:46 PM SEAM FELLER) Sodium 139 135 - 145 mmol/L Potassium, pl 4.5 3.3 - 4.9 mmol/L [facility] Chloride 103 97 - 110 mmol/L [facility] CO2 26 22 - 32 mmol/L [facility] Anion gap 10 2 - 15 mmol/L [facility] BUN 15 6 - 25 mg/dL [facility] Creatinine 0.92 0.60 - 1.10 mg/dL [facility] Glucose 105 70 - 199 mg/dL [facility] Comment: Interpretive Data Fasting glucose >/= [...] 2022. Calcium 9.5 8.5 - 10.3 mg/dL [facility] Bilirubin, total 0.3 0.1 - 1.2 mg/dL [facility] Protein, pl 7.1 6.5 - 8.5 g/dL [facility] Albumin 4.3 3.5 - 5.0 g/dL [facility] Alk phos 121 40 - 130 Units/L [facility] ALT 19 7 - 45 Units/L [facility] AST 22 10 - 45 Units/L [facility] Blood 11/15/2024 1:46 PM SEAM FELLER 11/15/2024 2:48 PM SEAM FELLER us Marialuisa R. Govero EMBLEM DRAWER IN LAB BLOOD ORDERABLES Final Result JAD[facility] Department [place] [address] * TB test, quantiferon gold (11/07/2024 3:55 PM SEAM FELLER) QuantiFERON(R)-T B Gold Plus, 1 Tube NEGATIVE [...] T-lymphocytes. For additional information, please refer to https://education.[employer]/faq/ZWH710 (This link is being provided for informational/ educational purposes only.) Blood 11/07/2024 3:55 PM SEAM FELLER 11/07/2024 3:56 PM SEAM FELLER Marialuisa Franklin NP LAB BLOOD ORDERABLES Final Result [facility] [address] [place] [phone] * Dexa Axial Skeleton Bone Density 1 or 2 Site (03/08/2024 9:24 AM CDT) Anatomical Region Laterality Modality Body N/A Radiographic Erna ging Narrative 03/08/2024 9:48 PM CDT Patient Name: Sheri Shin Date of : 1955 Date of scan: 03/08/2024 Bone mineral density was performed on a HoloVinobo Discovery Densitometer. Based on machine cross-calibration and [...] by the International Society of Clinical Densitometry. [id number] Marialuisa Franklin NP IMG DXA PROCEDURES Final R esult * Hepatitis panel, acute (05/24/2020 9:45 AM CDT) Hep A IgM Nonreactive Nonreactive [facility] Comment: Interpretive Data: If Hep A IgM Ab is reported as Equivocal, a new sample should be drawn in two weeks for testing. Current interpretive data was last revised on 19. Hep B core IgM Nonreactive Nonreactive [facility] Comment: Interpretive Data If HepB Core IgM Ab is reported as Equivocal, a new sample should be drawn in two weeks for testing. Current interpretive data was last revised on 19. Hep C Ab Nonreactive Nonreactive [facility] Comment:Antibodies to HCV no t detected. Does NOT exclude the possibility of recent exposure to HCV. HepBsAg Nonreactive Nonreactive [facility] Blood specimen (specimen) 05/24/2020 9:45 AM CDT 05/24/2020 12:08 PM CDT Marialuisa Franklin NP LAB MICROBIOLOGY - GENERAL ORDERABLES Edited Result - Final [facility] [place] [address] from Last 3 Months or Most Recently Relevant to Health Maintenance Insurance [employer] [facility] MEDICARE [facility] MEDIC[facility] Address: [address] [address] [place] [address] [facility] MEDICARE MEDICARE [facility] MEDICARE [facility] MEDIC[facility] Address: [address] [address] [place] [address] Care Teams Machine Baster Relationship Specialty Start Date End Date Kerry Coffman DO [address] [place] [address] PCP - General Internal Medicine 04/19/24
== END 2025-01-16 13:16 | disposition home or self-care (01) ==
PROVIDERS: Visit Provider Physician Assistant Surgical
DX: S62.325A Displaced fracture of shaft of fourth metacarpal bone, left hand, initial encounter for closed fracture (principal); S52.512A Displaced fracture of left radial styloid process, initial encounter for closed fracture; S52.612A Displaced fracture of left ulna styloid process, initial encounter for closed fracture
CPT/HCPCS: 73130

== ENCOUNTER 2025-01-30 15:31 | Outpatient (CLI) | payer MEDICARE, SELFPAY ==
--- NOTE | ~2025-01-30 | XR_ITS ---
EXAM: XR hand LT min 3V DATE: 01/30/2025 15:48 HISTORY: S52.502A - Unspecified fracture of the lower end of left ... . COMPARISON: 01/16/2025. FINDINGS: Detail obscured by overlying cast material. Fixation pins bridge an oblique fourth metacar pal fracture, with increased callus formation. No hardware fracture or perihardware lucency. [place] tration of the mildly angulated distal radial fracture, with increased callus formation. Mildly distr acted ulnar styloid fracture IMPRESSION: Evolving healing changes in the left fourth metacarpal fracture, with pin fixation and th e left distal radial fracture. No radiographic evidence of hardware related complication. Unchanged u lnar styloid fracture. Reviewed, dictated and finalized at location K. IMPRESSION: Evolving healing changes in the left fourth metacarpal fracture, wi th pin fixation and the left distal radial fracture. No radiographic evidence o f hardware related complication. Unchanged ulnar styloid fracture.
--- OUTSIDE RECORDS SUMMARY | 2025-01-30 17:26 | XMS_ITS | Encounter Summary ---
Author Organization [facility] Address [address] [place] [address] Care Team Providers Care Wet Press Tender Name Role Phone MeghnaKerry Primary Care Provider [phone] Meghna Kerry FRANKS Unavailable [phone] Encounter Details Date Type Department Care Team (Late st Contact Info) Description 02/10/2024 Telephone [facility] - Neurology [address] [facility], [place] [address] Hyacinth Arriaga, JD EDWARDS-CRATE REPAIRER [address] [place] [address] [place] [address] Social History Tobacco Use Types Packs/Day Years Used Date Smoking Tobacco: Never Assessed Comments No Sex and Gender Information Value Date Recorded Sex Assigned at Female 09/16/2024 2:41 PM ROR ENGINEER Legal Sex Female 5:56 AM ROR ENGINEER Gender Identity Female 09/16/2024 2:41 PM ROR ENGINEER Sexual Orientation Straight 09/16/2024 2: 41 PM ROR ENGINEER documented as of this encounter Functional Status * Is person deaf or have serious hearing difficulty? Answer Date of Assessment Author No 03/24/2022 6:35 PM Ibeth Menchaca RN * Is person blind or have serious difficulty seeing? Answer Date of Assessment Author No 03/24/2022 6:35 PM Ibeth Menchaca RN * Does person have serious difficulty walking/climbing stairs? Answer Date of Assessment Author No 03/24/2022 6:35 PM Ibeth Menchaca, SHADIA * Does person have difficulty dressing/bathing? Answer Date of Assessment Author No 03/24/2022 6:35 PM CDT Ibeth Lopez RN * Does person have difficulty doing errands alone? Answer Date of Assessment Author No 03/24/2022 6:35 PM CDT Ibeth Lopez RN documented as of this encounter Mental Status * Does person have difficulty concentrating/remembering/making decisions? Answer Entry Date Author No 03/24/2022 6:35 PM CDT Ibeth Lopez, RN documented in this encounter Miscellaneous Notes * Telephone Encounter [...] Care Team (Late st Contact Info) Description 02/01/2025 10:30 AM CDT Office Visit [facility] - Orthopedics [address] [place] [phone] Cornelio Lima MD [address] [place] [address] 02/09/2025 11:15 AM CDT Office Visit [facility] - Ophthalmology [address] [place] [phone] Percy Matute MD [address] [place] [address] [place] [phone] 02/09/2025 4:00 PM CDT Office Visit [facility] - Allergy [address] [place] [phone] Papito Morales MD [address] [place] [address] DIV OF ALLERGY/[place] [address] 03/02/2025 1:00 PM CDT Office Visit [facility] - Neurology [address] [place] [phone] Denisse Lisandrokamhernan, JD EDWARDS-CRATE REPAIRER [address] [place] [address] [address] [place] [phone] 04/13/2025 3:00 PM CDT Office Visit [facility] - Allergy [address] [place] [address], [place] [phone] Papito Morales MD [address] [place] [address] [address] DIV OF ALLERGY/[place] [address] 06/05/2025 8:30 AM CDT [facility] Med [address] [place] [phone] Kerry Coffman DO [address] [place] [address] [address] DIV [place] [address] documented as of this encounter Visit Diagnoses Not on filedocumented in this encounter Additional Health Concerns Infection Onset Date Last Indicated Resolved Time CDIFF Under Investigation 07/20/2024 07/20/2024 4:33 AM CDT CDIFF Under Investigation 10/26/2024 11/07/2024 4:33 AM ROR ENGINEER CDIFF Under Investigation 11/07/2024 11/07/2024 5:38 PM ROR ENGINEER documented as of this encounter Care Teams Wet Press Tender Relationship Specialty Start Date End Date Kerry Coffman DO [address] [place] [address] [address] [place] [address] PCP - General Internal Medicine 12/15/23 Kerry Coffman DO [facility] [facility] [address] [facility] OF [place] [address] PCP - Attributed-[facility] TAYLOR P4P 12/10/24 documented as of this encounter
--- OUTSIDE RECORDS SUMMARY | 2025-01-30 17:26 | XMS_ITS | Encounter Summary ---
Author Organization [facility] Address [address] [place] [address] Care Team Providers Care Technical Support Analyst Name Role Phone Joan Robins MD Primary Care Provider [place] reddy DO Primary Care Provider [phone] Kerry Coffman DO Unavailable [phone] Encounter Details Date Type Department Care Team (Late st Contact Info) Description 12/18/2021 Telephone [facility] [address] [place] [address] Rissa Vo MD Social History Tobacco Use Types Packs/Day Years Used Date Smoking Tobacco: Former Smokeless Tobacco: Never Alcohol Use Standard Drinks/Week Comments Never 0 (1 standard drink = 0.6 oz pur e alcohol) Comments Unknown Sex and Gender Information Value Date Recorded Sex Assigned at Female 09/16/2024 2:41 PM RF ENGINEER Legal Sex Female 5:56 AM RF ENGINEER Gender Identity Female 09/16/2024 2:41 PM RF ENGINEER Sexual Orientation Straight 09/16/2024 2: 41 PM RF ENGINEER COVID-19 Exposure Response Date Recorded In the last month, have you been in contact with someone who was confirmed or suspected to have Coronavirus / COVID-19? No / Unsure 12/19/2021 5:58 AM RF ENGINEER documented as of this encounter Patient Instructions * Patient Instructions* Donny Elliott - 12/18/2021 6:58 AM RF ENGINEER Pt was bumped from 03/17/2022 DBN appt. [facility] does not schedule for these appt types. Please reschedule from the bump list. ENGINEER documented in this encounter Plan of Treatment Upcoming Encounters Date Type Department Care Team (Late st Contact Info) Description 02/01/2025 10:30 AM CDT Office Visit [facility] - Orthopedics [address] [place] [phone] Cornelio Lima MD [address] [place] [address] 02/09/2025 11:15 AM CDT Office Visit [facility] - Ophthalmology [address] [place] [phone] Percy Matute MD [address] [place] [address] [place] [phone] 02/09/2025 4:00 PM CDT Office Visit [facility] - Allergy [address] [place] [phone] Papito Morales MD [address] [place] [address] 2L DIV OF ALLERGY/[place] [address] 03/02/2025 1:00 PM CDT Office Visit [facility] - Neurology [address] [place] [phone] Moncho Salcedo, PATIENT ASSISTANT-WOODWORKING CRAFTSMAN [address] [place] [address] 1L [place] [phone] 04/13/2025 3:00 PM CDT Office Visit [facility] - Allergy [address] [place] [phone] Papito Morales MD [address] [place] [address] 2L DIV OF ALLERGY/[place] [address] 06/05/2025 8:30 AM CDT Office Visit [facility] - Internal Med [address] [place] [address], [facility] [place] [address] Kerry Coffman DO [address] [place] [address] 2L DIV OF [facility] [place] [address] documented as of this encounter Visit Diagnoses Not on filedocumented in this encounter Additional Health Concerns Infection Onset Date Last Indicated Resolved Time CDIFF Under Investigation 07/20/2024 07/20/2024 4:33 AM CDT CDIFF Under Investigation 10/26/2024 11/07/2024 4:33 AM RF ENGINEER CDIFF Under Investigation 11/07/2024 11/07/2024 5:38 PM RF ENGINEER documented as of this encounter Care Teams Technical Support Analyst Relationship Specialty [place] [address] [place] [phone] PCP - General 02/14/19 12/14/23 Kerry Coffman DO [address] [place] [address] 2L DIV OF [facility] [place] [place] [address] PCP - General Internal Medicine 12/15/23 Kerry Coffman DO [address] [place] [address] 2L DIV OF [facility] [place] [place] [address] PCP - [facility] MANSOOR TAYLOR P4P 12/10/24 documented as of this encounter
--- OUTSIDE RECORDS SUMMARY | 2025-01-30 17:26 | XMS_ITS | Clinical Summary ---
Author Organization [facility] Address [address] [place] [address] Phone Care Team Providers Care Landing Scaler Name Role Phone Joan Robins MD Primary [...] on file Legal Sex Female 10:36 AM YOUTH COORDINATOR Gender Identity Not on file Sexual Orientation Not on file Last Filed Vital Signs Vital Sign Reading Time Taken Comments Blood Pressure 125/81 10/21/2018 12:15 PM YOUTH COORDINATOR Pulse 72 10/21/2018 12:25 PM YOUTH COORDINATOR Temperature 36.3 C (97.3 F) 10/21/2018 11:32 AM YOUTH COORDINATOR Respiratory Rate 18 10/21/2018 12:25 PM YOUTH COORDINATOR Oxygen Saturation 99% 10/21/2018 12:25 PM YOUTH COORDINATOR Inhaled Oxygen Concentration - - Weight 60.3 kg (133 lb) 10/21/2018 11:32 AM YOUTH COORDINATOR Height 170.2 cm (5' 7 ) 10/21/2018 11:32 AM YOUTH COORDINATOR Body Mass Index 20.83 10/21/2018 11:32 AM YOUTH COORDINATOR Plan of Treatment Health Maintenance Due [...] age to complete this topic Insurance MEDICAID [employer] Care Teams Landing Scaler Relationship Specialty Start Date End Date Joan Robins MD [address] [place] [address] PCP - General Internal Medicine 10/21/18
--- OUTSIDE RECORDS SUMMARY | 2025-01-30 17:26 | XMS_ITS | Encounter Summary ---
Author Organization [facility] Address [address] [facility] [place] [address] Care Team Providers Care Relay Assembler Name Role Phone Meghna Kerry FRANKS Primary Care Provider [phone] Kerry Coffman DO Unavailable [phone] Reason for Visit * Reason Onset Date Comments MEDICATION REFILL 01/10/2025 Encounter Details Date Type Department Care Team (Late st Contact Info) Description 01/10/2025 Refill [facility] - Neurology [address] [place] [phone] Moncho Salcedo APRN-SILVER SERVICE WAITER [address] [place] [phone] MEDICATION REFILL Social History Tobacco Use Types [...] Recorded Patient Health Questionnaire-2 Score 2 09/19/2024 Comments No Sex and Gender Information Value Date Recorded Sex Assigned at Female 09/16/2024 2:41 PM STEAMTABLE WORKER Legal Sex Female 5:56 AM STEAMTABLE WORKER Gender Identity Female 09/16/2024 2:41 PM STEAMTABLE WORKER Sexual Orientation Straight 09/16/2024 2: 41 PM STEAMTABLE WORKER documented as of this encounter Functional Status * Is person deaf or have serious hearing difficulty? Answer Date of Assessment Author No 12/08/2024 10:35 AM Mignon Olivares RN * Is person blind or have serious difficulty seeing? Answer Date of Assessment Author No 12/08/2024 10:35 AM Mignon Olivares RN * Does person have serious difficulty walking/climbing stairs? Answer Date of Assessment Author No 12/08/2024 10:35 AM Mignon Olivares RN * Does person have difficulty dressing/bathing? Answer Date of Assessment Author No 12/08/2024 10:35 AM Mignon Olivares RN * Does person have difficulty doing errands alone? Answer Date of Assessment Author No 12/08/2024 10:35 AM Mignon Olivares RN documented as of this encounter Mental Status * Does person have difficulty concentrating/remembering/making decisions? Answer Entry Date Author No 12/08/2024 10:35 AM Mignon Olivares RN documented in this encounter Plan of Treatment Upcoming Encounters Date Type Department Care Team (Late st Contact Info) Description 02/01/2025 10:30 AM CDT Office Visit [facility] - Orthopedics [address] [place] [phone] Cornelio Lima MD [address] [place] [address] 02/09/2025 11:15 AM CDT Office Visit [facility] - Ophthalmology [address] [place] [phone] Percy Matute MD [address] [place] [address] DE[place] [address] 02/09/2025 4:00 PM CDT Office Visit [facility] - Allergy [address] [place] [address], [place] [address] Papito Morales MD [address] [place] [address] 2L DIV OF ALLERGY/[place] [address] 03/02/2025 1:00 PM CDT Office Visit [facility] - Neurology [address] [place] [address], [place] [address] Denisse Lisandrokamhernan, NETWORKS COMPUTER CONSULTANT-SILVER SERVICE WAITER [address] [place] [address] 1L [place] [address] 04/13/2025 3:00 PM CDT Office Visit [facility] - Allergy [address] [place] [phone] Papito Morales MD [address] [place] [address] 2L DIV OF ALLERGY/[place] [address] 06/05/2025 8:30 AM CDT Office Visit [facility] - Internal Med [address] [place] [phone] Kerry Coffman DO [address] [place] [address] 2L DIV OF [facility] [place] [address] documented as of this encounter Goals Goal Patient Goal Type Associated Problems Recent Progress Patient-Stated? Author Medication Management General On track( 025 10:42 AM STEAMTABLE WORKER) Marion Scott, RN Note: Expected end date: ongoing Interventions: Take all medications as prescribed documented as of this encounter Visit Diagnoses Diagnosis Cognitive decline Unspecified persistent mental disorders due to conditions classified elsewhere documented in this encounter Care Teams Relay Assembler Relationship Specialty Start Date End Date Kerry Coffman DO [address] [place] [address] 2L DIV OF [facility] [place] [address] PCP - General Internal Medicine 12/15/23 Kerry Coffman DO [address] OF [facility] [place] [address] PCP - Attributed-[facility] MAN[facility]OR TAYLOR P4P 12/10/24 documented as of this encounter
--- OUTSIDE RECORDS SUMMARY | 2025-01-30 17:26 | XMS_ITS | Continuity of Care Document ---
Author Organization [facility] Address [address] [place] [address] Phone Care Team Providers Care Analytics Specialist Name Role Phone Sandie Briggs MD Unavailable [...] Encounter [facility], [address], [place], [place], [id number] , [place] tel: [phone] [facility] No Information [address], [place], [place], [id number], [place]. [phone] OFFICE/OUTPATI ENT VISIT, EST [facility], [address], [place], [place], [address] , [place] tel: [phone] [facility] medication refill (chief complaint) Bipolar disorderHigh risk medication use 3 No Information [facility], [address], [place], [place], [id number] , [place] tel: [phone] Dental Soulard Velasquez Dental examination 2 No Information OFFICE OUTPT EST 25 MIN [facility], [address], [place], [place], [address] , [place] tel: [phone] [facility] referrals (chief complaint)b ipolar disorder (chief complaint) Bipolar disorderAlcohol abuseRoutine adult health maintenanceNeed for prophylactic vaccination and inoculation against Streptococcus pneumoniae [pneumococcus]C ommon wart 2 No Information OFFICE/OUTPATI ENT VISIT, EST [facility], [address], [place], [place], [address] , [place] tel: [phone] [facility] test results (chief complaint) Genital herpes, unspecifiedBeni gn neoplasm of vulvaNeed for prophylactic vaccination and inoculation, influenza 2 No Information [facility], [address], [place], [place], [address] , [place] tel: [phone] Dental Soulard Velasquez Dental examination 2 No Information OFFICE/OUTPATI ENT VISIT, EST [facility], [address], [place], [place], [address] , [place] tel: [phone] [facility] irritated spot on vulva (chief complaint) Benign neoplasm of vulva 2 No Information 1ST COMPRE PREV MED E/M NEW PT 40-64 [facility], [address], [place], [place], [address] , [place] tel: [phone] [facility] annual visit (chief complaint) Routine gynecological examination 2 No Information [facility], [address], [place], [place], [address] , [place] tel: [phone] Dental Soulard Velasquez No Information 1 No Information OFFICE OUTPT EST 25 MIN [facility], [address], [place], [place], [address] , [place] tel: [phone] [facility] pain (chief complaint)E R f/u (chief complaint) Other and unspecified alcohol dependence, continuous drinking behavior 1 No Information ENVIRONMENTAL IVNTJ MGMT PURPOSES PSYC PT [facility], [address], [place], [place], [address] , [place] tel: [phone] [facility] No Information 0 No Information FAMILY PSYCHOTHERAPY (CONJOINT PSYCHOTHERAPY) (WITH PATIENT PRESENT) [facility], [address], [place], [place], [address] , [place] tel: [phone] [facility] substance abuse (chief complaint) No Information 0 No Information OFFICE/OUTPATI ENT VISIT, EST [facility], [address], [place], [place], [address] , [place] tel: [phone] [facility] alcohol (chief complaint) Other and unspecified alcohol dependence, continuous drinking behavior 0 No Information OFFICE/OUTPATI ENT VISIT, EST [facility], [address], [place], [place], [address] , [place] tel: [phone] [facility] dizziness (chief complaint)a lcohol abuse (chief complaint) Other and unspecified alcohol dependence, continuous drinking behaviorDizzine ss and giddiness 0 No Information [facility], [address], [place], [place], [address] , [place] tel: [phone] [facility] depression (chief complaint) Major depressive affective disorder, recurrent episode, moderate degreeOther and unspecified alcohol dependence, continuous drinking behaviorUnspeci fied personality disorder 0 No Information OFFICE/OUTPATI ENT VISIT, NEW [facility], [address], [place], [place], [address] , [place] tel: [phone] [facility] REFERRED BY [facility] (chief complaint)M EDICATION NEEDED (chief complaint) Issue of repeat prescriptions 0 Juan Pablo [facility] [address], [place], [place], [address], [place]. [phone] [facility], [address], [place], [place], [address] , [place] tel: [phone] Care Guidelines Aly-0 1-190 1 No Information [...] on due Referral Referred To: [facility] Ordered: Referral: [facility]. Psychiatry. Evaluate and treat. ordered Referral Referred To: Josse Carrillo MD [address] [place], [place], [phone] Ordered: Referral: Josse Carrillo MD. Psychiatry. Evaluate and treat. ordered Referral Referred To: [facility] [address], [place], [phone] Ordered: Referral: [facility] [place]. Radiology. Diagnostic testing. Appointment date/timeframe: 04/12/2012 ordered Referral Referred To: Anupam Sher MD [address] [place], [place], [phone] Ordered: Referral: Anupam Sher MD. Psychiatry. Appointment [...]
--- OUTSIDE RECORDS SUMMARY | 2025-01-30 17:26 | XMS_ITS | Encounter Summary ---
Author Organization [facility] Address [address] [facility] [place] [address] Care Team Providers Care Towel Stretcher Name Role Phone Meghna Kerry FRANKS Primary Care Provider [phone] Kerry Coffman DO Unavailable [phone] Reason for Visit * Reason Onset Date Comments Appointment 10/20/2024 Encounter Details Date Type Department Care Team (Late st Contact Info) Description 10/20/2024 Telephone [facility] - Centralized Scheduling [address] [place] [phone] Moncho Salcedo, HOGSHEAD WEIGHER-CONDUIT BENDER [address] [phone] Appointment Social History Tobacco Use [...] Sex Assigned at Female 09/16/2024 2:41 PM RETAIL LOAN OFFICER Legal Sex Female 5:56 AM RETAIL LOAN OFFICER Gender Identity Female 09/16/2024 2:41 PM RETAIL LOAN OFFICER Sexual Orientation Straight 09/16/2024 2: 41 PM RETAIL LOAN OFFICER documented as of this encounter Functional Status * Is person deaf or have serious hearing difficulty? Answer Date of Assessment Author No 07/29/2024 9:33 AM CDT Manuel Bhat RN * Is person blind or have serious difficulty seeing? Answer Date of Assessment Author No 07/29/2024 9:33 AM UZIELT Manuel Bhat RN * Does person have serious difficulty walking/climbing stairs? Answer Date of Assessment Author No 07/29/2024 9:33 AM Manuel Bravo RN * Does person have difficulty dressing/bathing? Answer Date of Assessment Author No 07/29/2024 9:33 AM Manuel Bravo RN * Does person have difficulty doing errands alone? Answer Date of Assessment Author No 07/29/2024 9:33 AM Manuel Bravo RN documented as of this encounter Mental Status * Does person have difficulty concentrating/remembering/making decisions? Answer Entry Date Author No 07/29/2024 9:33 AM Manuel Bravo RN documented in this encounter Miscellaneous Notes * Telephone Encounter - Av Wallace - 10/20/2024 3:16 PM CST Patient called to schedule for a Short Procedure with DRILL PRESS SET UP OPERATOR Settu in November. [place] LOAN OFFICER documented in this encounter Plan of Treatment Upcoming Encounters Date Type Department Care Team (Late st Contact Info) Description 02/01/2025 10:30 AM CDT Office Visit [facility] Orthopedics [address] [place] [phone] Cornelio Lima MD [address] [place] [address] 02/09/2025 11:15 AM CDT Office Visit [facility] - Ophthalmology [address] [place] [phone] Percy Matute MD [address] [place] [address] [place] [address] 02/09/2025 4:00 PM CDT Office Visit [facility] - Allergy [address] [place] [address], [place] [address] Papito Morales MD [address] [place] [address] 2L DIV [place]ERGY/[place] [address] 03/02/2025 1:00 PM CDT [facility] [address] [place] [address], [place] [address] Moncho Salcedo, HOGSHEAD WEIGHER-CONDUIT BENDER [address] [place] [address] 1L [place] [phone] 04/13/2025 3:00 PM CDT Office Visit [facility] - Allergy [address] [place] [address], [place] [address] Papito Morales MD [address] [place] [address] 2L DIV [place] [address] 06/05/2025 8:30 AM CDT Office Visit [facility] - Internal Med [address] [place] [phone] Kerry Coffman DO [address] [place] [address] 2L DIV OF [place] [address] documented as of this encounter Goals Goal Patient Goal Type Associated Problems Recent Progress Patient-Stated? Author Medication Management General On track( 025 10:42 AM RETAIL LOAN OFFICER) Marion Scott, RN Note: Expected end date: ongoing Interventions: Take all medications as prescribed documented as of this encounter Visit Diagnoses Not on filedocumented in this encounter Additional Health Concerns Infection Onset Date Last Indicated Resolved Time CDIFF Under Investigation 10/26/2024 11/07/2024 4:33 AM RETAIL LOAN OFFICER CDIFF Under Investigation 11/07/2024 11/07/2024 5:38 PM RETAIL LOAN OFFICER documented as of this encounter Care Teams Towel Stretcher Relationship Specialty Start Date End Date Kerry Coffman DO [address] 2L DIV OF [facility] [place] [address] PCP - General Internal Medicine 12/15/23 Kerry Coffman DO [address] 2L DIV OF [facility] [place] [address] PCP - Attributed-[facility] MANSOOR TAYLOR P4P 12/10/24 documented as of this encounter
--- OUTSIDE RECORDS SUMMARY | 2025-01-30 17:27 | XMS_ITS | Clinical Summary ---
Author Organization [facility] [employer] Address [address] [place] [address] Care Team Providers Care Flume Worker Name Role Phone Kerry Coffman DO Primary Care Provider [phone] Kerry Coffman DO Unavailable [phone] Source Comments [facility] [employer],non-owned Affiliates and Associated Physician Practices is amultiple site organization consisting of ambulatory clinics and hospital sitesin [place], [place], [place] and [place]. This disclosure is being madepursuant to the Care Everywhere program and may not contain all information available regarding this patient. Last updated 18.[facility] [employer] Allergies Active Allergy Reactions Criticality Noted Date Comments Penicillins Anaphylaxis High 10/21/2018 Sulfa Drugs Rash Medium 10/21/2018 Medications * This document contains information received from the source organization and may not represent a complete record from that organization. * Be aware that medications may not be up to date on this document. Alwaysverify current medications with the patient. propranolol CR 24hr (INDERAL LA) 120 MG capsule Take 1 (one) capsule by mouth once daily 11/08/19 20 Active sertraline (ZOLOFT) 100 MG tablet Take 1 (one) tablet by mouth 2 times daily 11/08/19 20 Active leflunomide (ARAVA) 20 MG tablet Take 1 (one) tablet by mouth once daily 03/13/20 22 Active loratadine (CLARITIN) 10 MG tablet Take 1 (one) tablet by mouth once daily 01/18/20 22 Active Calcium Carbonate (CALTRATE 600 PO) Take 1 tablet by mouth 2 times daily Active Lancets (ONETOUCH DELICA PLUS 33G EXTRA FINE LANCET)Indicatio ns:Type 2 diabetes mellitus with hyperglycemia, without long-term current use of insulin ([facility]) Use 1 Each 2 times daily 12/08/19 23 Active Cyanocobalamin (Vitamin B12) 500 MCG TABS Take 500 mcg by mouth once daily Active loperamide (Imodium) 2 MG capsule Take 1 (one) capsule by mouth 2 times daily as needed Active pseudoephedrine CR 12hr (Sudafed) 120 MG tablet Take 1 (one) tablet by mouth as needed Active hydroxychloroqui ne (Plaquenil) 200 MG tablet Take 1.5 (one and one-half) tablets by mouth once daily 12/09/19 24 Active azaTHIOprine (Imuran) 50 MG tablet Take 0.5 (one-half) tablet by mouth once daily 03/15/20 24 Active lamoTRIgine (LaMICtal) 200 MG tabletIndication s:Bipolar affective disorder, remission status unspecified ([facility]) Take 1 (one) tablet by mouth 2 times daily 06/17/20 24 Active alendronate (Fosamax) 70 MG tabletIndication s:Age-related osteoporosis with current pathological fracture, initial encounter Take 1 (one) tablet by mouth every 7 days before meal Take in morning with full glass of water on empty stomach and remain upright for 30 min 12 tablet 11 06/17/20 24 Active abatacept (Orencia) infusion 500 (five hundred) mg by Intravenous route every 30 days Active blood glucose (OneTouch Ultra) test stripIndications :Type 2 diabetes mellitus with hyperglycemia, without long-term current use of insulin ([facility]) USE 1 STRIP TO CHECK GLUCOSE TWICE DAILY 100 strip 11 07/27/20 24 Active SUMAtriptan (Imitrex) 100 MG tabletIndication s:Migraine without aura and without status migrainosus, not intractable Take 1 (one) tablet by mouth as needed for Migraine (take one with onset of headache, can repeat in 2 hours if needed, maximum of 2 in 24 hours.) No more than 2 doses in 24 hours. 9 tablet 4 07/25/20 24 Active gabapentin (Neurontin) 100 MG capsuleIndicatio ns:Headache Take 2 (two) capsules by mouth 3 times daily Reasons: Headache 180 capsule 5 07/25/20 24 Active Additional Information Patient taking differently:200 mg Oral2 TIMES DAILY, Indications: Headache, Reported on 10/26/2024 ARIPiprazole (Abilify) 2 MG tablet Take 1 (one) tablet by mouth every morning 07/25/20 24 Active latanoprost (Xalatan) 0.005 % ophthalmic solution Instill 1 (one) drop into both eyes at bedtime 7.5 mL 4 07/28/20 24 Active atorvastatin (Lipitor) 20 MG tablet Take 1 (one) tablet by mouth at bedtime 90 tablet 3 08/05/20 24 Active fluticasone propionate (Flonase) 50 MCG/ACT nasal sprayIndications :Chronic rhinitis,Allergi c rhinitis, unspecified seasonality, unspecified trigger,Chronic daily headache [place] 2 (two) sprays into each nostril once daily 16 g 6 08/11/20 24 Active azelastine (Astelin) 0.1 % nasal sprayIndications :Chronic rhinitis,Allergi c rhinitis, unspecified seasonality, unspecified trigger,Chronic daily headache [place] 1 (one) spray into each nostril 2 times daily 30 mL 3 08/11/20 24 Active primidone (Mysoline) 250 MG tabletIndication s:Tremor Take 1 tablet by mouth twice daily 180 tablet 3 08/18/20 24 Active clonazePAM (KlonoPIN) 0.5 MG tabletIndication s:Benign essential tremor Take 1 (one) tablet by mouth once daily 90 tablet 3 09/15/20 24 Active donepezil (Aricept) 10 MG tabletIndication s:Cognitive decline Take 1 (one) tablet by mouth once daily 90 tablet 3 09/27/20 24 Active Blood Glucose Monitoring Suppl (ONE TOUCH ULTRA 2) w/Device KITIndications:T ype 2 diabetes mellitus with hyperglycemia, without long-term current use of insulin ([facility]) Use 1 device as directed 1 kit 10/17/19 25 Active polyethylene glycol (Gavilyte-C) 240 g solution Drink half the prep at 5 pm the evening prior to the procedure. Finish the remaining prep at 4 am the morning of the procedure. 4000 mL 10/25/19 25 Active albuterol HFA (Proventil; Ventolin; Proair) 108 (90 Base) MCG/ACT inhaler Inhale 2 (two) puffs by mouth every 4 hours as needed for Shortness of Breath or Wheezing 10/07/20 24 Active omeprazole (PriLOSEC) 40 MG capsule Take 1 (one) capsule by mouth daily before breakfast Active Galcanezumab-gnl m (Emgality) 120 MG/ML auto-injector penIndications:I ntractable 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 Inject 1 mL subcutaneously every 30 days 1 mL 11 11/02/19 25 Active butalbital-aceta minophen-caffein e (Fioricet) 50-300-40 MG capsuleIndicatio ns:Intractable 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 Take 1 (one) capsule by mouth every 4 hours as needed for Headache 20 capsule 5 11/02/19 25 Active polyethylene glycol 3350 (Miralax) 17 GM/SCOOP powder Take a dose twice a day starting a week before your colonoscopy 238 g 11/04/19 25 Active magnesium citrate solution Drink at 5pm 2 nights before your colonoscopy 300 mL 11/04/19 25 Active bisacodyl EC (Dulcolax) 5 MG tablet Take 4 tablets orally at noon 2 days before your colonoscopy. Take 4 tablets orally at noon the day before your colonoscopy 8 tablet 11/04/19 25 Active memantine (Namenda) 10 MG tabletIndication s:Cognitive decline Take 1 (one) tablet by mouth at bedtime 30 tablet 11 12/14/19 25 Active Active Problems Problem Noted Date [...] Encounters Date Type Department Care Team Description 01/17/2025 Telephone [facility] - Neurology [address] [place] [phone] Moncho Salcedo APRN-ENTERPRISE MANAGER Appointment 01/10/2025 Refill [facility] - Neurology [address] [place] [phone] Moncho Salcedo, PREPARER-ENTERPRISE MANAGER MEDICATION REFILL 01/05/2025 Telephone [facility] - Neurology [address] [place] [phone] Moncho Salcedo PREPARER-ENTERPRISE MANAGER Medication Clarification 01/05/2025 Travel 12/23/2024 12:26 PM CDT - 12/23/2024 2:22 PM CDT Emergency [facility] EMERGENCY DEPARTMENT [address] [place] [phone] Cornelio Richardson MD Ground-level fall (Primary Dx); Acute pain of left shoulder; Left hip pain Discharge Disposition: Home or Self Care 12/23/2024 Travel 12/19/2024 Telephone [facility] - Endocrinology [address] [place] [phone] Haydee Simmons RN Results 12/13/2024 Orders Only [facility] Neurology [address] [place] [phone] Moncho Salcedo, PREPARER-ENTERPRISE MANAGER Cognitive decline 12/08/2024 9:[address] GRADER OPERATOR - 12/08/2024 11:59 PM [facility] Hospital Encounter [facility] CAT SCAN [facility] [place] [address] Cornelio Lima MD Discharge Disposition: Home or Self Care 12/08/2024 9:[address] GRADER OPERATOR - 12/08/2024 11:[address] GRADER OPERATOR Hospital Encounter [facility] CAT SCAN [facility] [place] [address] Cornelio Lima MD Discharge Disposition: Home or Self Care 12/08/2024 7:[address] GRADER OPERATOR - 12/08/2024 9:16 AM [facility] Hospital Encounter [facility] DIAGNOSTIC RAD [address] [place] [address] Cornelio Lima MD Discharge Disposition: Home or Self Care 12/08/2024 Travel 11/28/2024 Telephone [facility] - Neurology [address] [place] [phone] Moncho Salcedo PREPARER-ENTERPRISE MANAGER Medication Prior Auth Request (Emgality) 11/23/2024 10:[address] GRADER OPERATOR - 11/23/2024 11:[address] GRADER OPERATOR Hospital Encounter [facility] DIAGNOSTIC RAD [facility] [address] [facility] [address] Cornelio Lima MD Discharge Disposition: Home or Self Care 11/23/2024 10:[address] GRADER OPERATOR - 11/23/2024 11:[address] GRADER OPERATOR Hospital Encounter [facility] DIAGNOSTIC RAD [facility] [address] [facility] [address] Cornelio Lima MD Discharge Disposition: Home or Self Care 11/23/2024 10:[address] GRADER OPERATOR Office Visit [facility] - Orthopedics [address] [place] [phone] Cornelio Lima MD Lumbar spine pain (Primary Dx); Lumbar spondylosis; Spondylolisthesis of lumbar region; Degenerative scoliosis in adult patient; Cervical spondylosis with myelopathy; Cervicalgia 11/23/2024 9:[address] GRADER OPERATOR - 11/23/2024 10:[address] GRADER OPERATOR Hospital Encounter [facility] DIAGNOSTIC RAD [facility] [address] [facility] [address] Cornelio Lima MD Discharge Disposition: Home or Self Care 11/23/2024 Travel 11/14/2024 Telephone [facility] - Neurology [address] [place] [phone] Moncho Salcedo, PREPARER-ENTERPRISE MANAGER Medication Clarification (Emgaltiy) 11/11/2024 10:[address] GRADER OPERATOR - 11/11/2024 11:[address] GRADER OPERATOR Surgery [facility] ENDOSCOPY [address] [place] [address] Sixto Cornell MD COLONOSCOPY SCREEN--extended prep 11/11/2024 10:[address] GRADER OPERATOR Anesthesia Event [facility]OS[facility] [address] [place] [address] RangDoug farris MD Dobbs, Kristin L, APRN-EXECUTIVE VP 11/11/2024 8:[address] GRADER OPERATOR - 11/11/2024 11:[address] GRADER OPERATOR Hospital Encounter [facility] [address] [place] [address] Sixto Cornell MD Surgery General Discharge Disposition: Home or Self Care 11/11/2024 Travel 11/04/2024 Patient Outreach [facility]OS[facility] [address] [place] [address] Samantha Monterroso RN 11/02/2024 3:[address] GRADER OPERATOR Office Visit [facility] Neurology [address] [facility], [place] [address] Moncho Salcedo APRN-ENTERPRISE MANAGER Intractable 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 (Primary Dx) 11/02/2024 Travel from Last 3 Months Immunizations Immunization Administration Dates Next Due COVID - 19, [...] Date Recorded Patient Health Questionnaire-2 Score 2 01/25/2025 Comments No Sex and Gender Information Value Date Recorded Sex Assigned at Female 09/16/2024 2:[address] GRADER OPERATOR Legal Sex Female 5:[address] GRADER OPERATOR Gender Identity Female 09/16/2024 2:[address] GRADER OPERATOR Sexual Orientation Straight 09/16/2024 2: [address] GRADER OPERATOR Last Filed Vital Signs Vital Sign [...] Office Visit [facility] - Orthopedics [address] [place] [phone] Cornelio Lima MD [address] [place] [address] 02/09/2025 11:15 AM CDT Office Visit [facility] - Ophthalmology [address] [place] [phone] Percy Matute MD [address] [place] [address] [place] [phone] 02/09/2025 4:00 PM CDT Office Visit [facility] - Allergy [address] [place] [phone] Papito Morales MD [address] [place] [address] 2L DIV OF ALLERGY/[place] [address] 03/02/2025 1:00 PM CDT Office Visit [facility] - Neurology [address] [place] [phone] Moncho Salcedo, PREPARER-ENTERPRISE MANAGER [address] [place] [address] 1L [place] [phone] 04/13/2025 3:00 PM CDT Office Visit [facility] - Allergy [address] [place] [phone] Papito Morales MD [address] [place] [address] 2L DIV OF ALLERGY/[place] [address] 06/05/2025 8:30 AM CDT Office Visit [facility] - Internal Med [address] [place] [address], [place] [address] Orange BlossomKerry daniels [address] [place] [address] 2L DIV OF [place] [address] Health Maintenance Due Date Last Done Comments [...] Management General On track( 025 10:[address] GRADER OPERATOR) Marion Scott, RN Note: Expected end date: ongoing Interventions: Take all medications as prescribed Medical Devices Implanted Type Area Visual Specialist Device Identifier Shelf Expiration Date Model / Serial / Lot Slnt Dura Duraseal Pg Trilysine Amine 5 Implanted:Qty: 1 on 03/17/2022 by Jackelyn Yang MD at [facility] Left: Cranial [employer] 08/11/2023 [id number] / / [id number] Guardian Branial Barton Hole Cover Sys Implanted:Qty: 1 on 03/17/2022 by Jackelyn Yang MD at [facility] Left: Cranial [employer] 01/01/2024 6010 / / [id number] Directional Lead Implanted:Qty: 1 on 03/17/2022 by Shailesh North MD at [facility] Left: Cranial [employer] 09/25/2023 6172 / [id number] / Lead Extension Implanted:Qty: 1 on 03/24/2022 by Shailesh North MD at [facility] Left: Neck [employer] 01/15/2024 [id number] / / [id number] Generator Implanted:Qty: 1 on 03/24/2022 by Shailesh North MD at [facility] Left: Chest [employer] 11/19/2023 6662 / / [id number] [place] Spnl 140mm 6.35mm Ti Str Implanted:Qty: 1 on 08/29/2022 by Shailesh North MD at [facility] Right: Scalp [employer] 04/02/2024 6010 / / [employer] Infinity Dbs System Implanted:Qty: 1 on 08/29/2022 by Joshua Gill MD at [facility] Right: Brain 03/19/2024 6172 / [id number] / Description:cost per Levar [employer] Infinity Dbs System Implanted:Qty: 1 on 08/29/2022 by Joshua Gill MD at [facility] Right: Chest Wall 04/23/2024 6373 / [id number] / Description:cost per levar Procedures Procedure Name [...] OR MORE REGIONS Routine 12/08/2024 10:[address] GRADER OPERATOR Lumbar spine pain CT LUMBAR POST MYELOGRAM Routine 12/08/2024 10:[address] GRADER OPERATOR Lumbar spine pain CT CERVICAL POST MYELOGRAM Routine 12/08/2024 10:[address] GRADER OPERATOR Lumbar spine pain XR SPINE ENTIRE 2 OR 3VW Routine 11/23/2024 11:[address] GRADER OPERATOR Lumbar spine pain XR CERVICAL SPINE 2 OR 3VW Routine 11/23/2024 11:[address] GRADER OPERATOR Lumbar spine pain XR LUMBAR SPINE 2 OR 3VW Routine 11/23/2024 10:[address] GRADER OPERATOR Lumbar spine pain PATHOLOGY TISSUE Routine 11/11/2024 10:[address] GRADER OPERATOR Screen for colon cancer ID COLOREC CANC SCRN,SCOPY NOT HI RISK 11/11/2024 9:[address] GRADER OPERATOR Screen for colon cancer ENDOSCOPY, COLON, SCREENING Routine 11/11/2024 9:[address] GRADER OPERATOR GLUCOSE - POINT OF CARE Routine 11/11/2024 9:[address] GRADER OPERATOR CALPROTECTIN FECAL Routine 11/07/2024 3: [address] GRADER OPERATOR Chronic diarrhea CULTURE STOOL PANEL Routine 11/07/2024 3 :[address] GRADER OPERATOR Chronic diarrhea C DIFFICILE CYTOTOXIN Routine 11/07/2024 3:[address] GRADER OPERATOR Chronic diarrhea PROC DEEP BRAIN STIMULATOR Routine 11/03/2024 2:[address] GRADER OPERATOR Intractable chronic migraine with aura with status [...] PM CDT Ordered by an unspecified provider. us Scanned Document CARDIAC SERVICES ORDERABLES Fin al Result * TROPONIN-I HIGH SENSITIVE REFLEX 1HOUR (12/23/2024 10:40 AM CDT) Troponin I High Sensitive <3 <=14 ng/L 12/23/2024 11:21 AM [facility] Delta Troponin I HS 12/23/2024 11:21 AM [facility] Comment:Delta value intentio yasir not calculated. Baseline to 1 hour specimen collection interval exceeded. Blood BLOOD SPECIMEN / Unknown Venipuncture / Unknown 12/23/2024 10:40 AM CDT 12/23/2024 10:44 AM CDT us Yuval Krueger MD LAB - CHEMISTRY ORDERABLES Fi nal Result [address] [address], [facility] [phone] * (ABNORMAL) URINALYSIS REFLEX TO MICROSCOPIC NO CULTURE (12/23/2024 10:21 AM CDT) Pathologist [facility] Color UA Colorless(A ) Yellow, Straw 12/23/2024 10:41 AM [facility] Clarity UA Clear Clear 12/23/2024 10:41 AM [facility] Glucose UA Normal Normal 12/23/2024 10:41 AM [facility] Bilirubin UA Negative Negative 12/23/2024 10:41 AM [facility] Ketone UA Negative Negative 12/23/2024 10:41 AM [facility] Specific [place] UA <1.005(L) 1.005 - 1.030 12/23/2024 10:41 AM [facility] Blood UA Negative Negative 12/23/2024 10:41 AM [facility] pH UA 7.5 5.0 - 9.0 pH 12/23/2024 10:41 AM [facility] Protein UA Negative Negative 12/23/2024 10:41 AM [facility] Urobilinogen UA Normal Normal mg/dL 12/23/2024 10:41 AM [facility] Nitrite UA Negative Negative 12/23/2024 10:41 AM [facility] Leukocyte UA Negative Negative 12/23/2024 10:41 AM CDT [facility] Urine URINE SPECIMEN OBTAINED BY CLEAN CATCH PROCEDURE / Unknown Collection / Unknown 12/23/2024 10:21 AM CDT 12/23/2024 10:31 AM CDT us Yuval Krueger MD LAB - URINALYSIS ORDERABLES F inal Result [facility] [address] [place] [address], [facility] [phone] * CT CERVICAL SPINE WO CONTRAST (12/23/2024 9:33 AM CDT) Anatomical Region Laterality Modality Spine Computed Tomogra phy 12/23/2024 9:33 AM CDT Impressions 12/23/2024 11:16 AM CDT IMPRESSION: 1. No acute intracranial process. 2. No evidence of acute fracture in the cervical spine. 3. Multiple chronic findings as detailed in the report. > Dictated by Balaji Browne MD (Flight Data Technician), 12/23/2024 9:47 AM. I, Masha Alexandra MD have personally reviewed and interpreted this examination/study. > Interpreting Provider: Masha Alexandra MD on 12/23/2024 11:16 AM Narrative 12/23/2024 11:16 AM CDT PROCEDURE: CT HEAD WO CONTRAST, CT CERVICAL SPINE WO CONTRAST, DATE/TIME OF EXAM: 12/23/2024 9:33 AM, LOCATION [facility] INDICATION: W18.30XA: Ground-level fall EXAMINATION: 1. [...] effect or midline shift is seen. The sharam-white matter differentiation is normal. Periventricular white matter [...] CONTRAST,DATE/TIME OF EXAM: 12/23/2024 9:33 AM, LOCATION [facility] INDICATION: W18.30XA: Ground-level fall EXAMINATION: 1. [...] report. > Dictated by Balaji Browne MD (Flight Data Technician), 12/23/2024 9:47 AM. I, Masha Alexandra MD have personally reviewed and interpreted this examination/study. > Interpreting Provider: Masha Alexandra MD on 12/23/2024 11:16 AM Yuval Krueger MD CT ORDERABLES Final Result * CT HEAD WO CONTRAST (12/23/2024 9:33 AM CDT) Anatomical Region Laterality Modality Head Computed Tomogra phy 12/23/2024 9:33 AM CDT Impressions 12/23/2024 11:16 AM CDT IMPRESSION: 1. No acute intracranial process. 2. No evidence of acute fracture in the cervical spine. 3. Multiple chronic findings as detailed in the report. > Dictated by Balaji Browne MD (Flight Data Technician), 12/23/2024 9:47 AM. I, Masha Alexandra MD have personally reviewed and interpreted this examination/study. > Interpreting Provider: Masha Alexandra MD on 12/23/2024 11:16 AM Narrative 12/23/2024 11:16 AM CDT PROCEDURE: CT HEAD WO CONTRAST, CT CERVICAL SPINE WO CONTRAST, DATE/TIME OF EXAM: 12/23/2024 9:33 AM, LOCATION [facility] INDICATION: W18.30XA: Ground-level fall EXAMINATION: 1. [...] CONTRAST,DATE/TIME OF EXAM: 12/23/2024 9:33 AM, LOCATION [facility] INDICATION: W18.30XA: Ground-level fall EXAMINATION: 1. [...] report. > Dictated by Balaji Browne MD (Flight Data Technician), 12/23/2024 9:47 AM. I, Masha Alexandra MD have personally reviewed and interpreted this examination/study. > Interpreting Provider: Masha Alexandra MD on 12/23/2024 11:16 AM Yuval Krueger MD CT ORDERABLES Final Result * TROPONIN-I HIGH SENSITIVE BASELINE + 1HR (12/23/2024 9:06 AM CDT) [facility] Troponin I High Sensitive <3 <=14 ng/L 12/23/2024 10:05 AM [facility] Blood BLOOD SPECIMEN / Unknown Venipuncture / Unknown 12/23/2024 9:06 AM CDT 12/23/2024 9:27 AM CDT us Yuval Krueger MD LAB - CHEMISTRY ORDERABLES Fi nal Result [address] [address], [facility] [phone] * (ABNORMAL) CBC W AUTO DIFFERENTIAL (12/23/2024 9:06 AM CDT) Pathologist [facility] WBC 4.9 4.0 - 10.7 x10E9/L 12/23/2024 10:06 AM [facility] RBC Count 4.26 3.90 - 5.20 x10E12/L 12/23/2024 10:06 AM [facility] Hemoglobin 13.2 11.9 - 15.8 g/dL 12/23/2024 10:06 AM [facility] Hematocrit 39.6 34.8 - 46.1 % 12/23/2024 10:06 AM [facility] MCV 93.0 80.0 - 98.0 fL 12/23/2024 10:06 AM [facility] MCH 31.0 26.7 - 33.6 pg 12/23/2024 10:06 AM [facility] MCHC 33.3 31.7 - 36.3 g/dL 12/23/2024 10:06 AM [facility] RDW-CV 13.3 11.3 - 14.8 % 12/23/2024 10:06 AM [facility] Platelet Count 12/23/2024 10:06 AM [facility] Comment:Platelets clumped on slide but appears adequate. Recommend repeat with a sodium citrate blue top tube. MPV 12/23/2024 10:06 AM [facility] Comment:Unable to report Neutrophil % 69.5 41.0 - 74.0 % 12/23/2024 10:06 AM [facility] Lymphocyte % 16.6(L) 17.0 - 47.0 % 12/23/2024 10:06 AM [facility] Monocyte % 10.1 3.0 - 11.0 % 12/23/2024 10:06 AM [facility] Eosinophil % 2.4 0.0 - 7.0 % 12/23/2024 10:06 AM [facility] Basophil % 1.0 0.0 - 1.6 % 12/23/2024 10:06 AM [facility] Immature Granulocytes % 0.4 0.0 - 1.0 % 12/23/2024 10:06 AM [facility] Neutrophil Absolute 3.43 1.60 - 7.50 x10E9/L 12/23/2024 10:06 AM [facility] Lymphocyte Absolute 0.82(L) 1.00 - 4.40 x10E9/L 12/23/2024 10:06 AM [facility] Monocyte Absolute 0.50 0.15 - 1.00 x10E9/L 12/23/2024 10:06 AM [facility] Eosinophil Absolute 0.12 0.00 - 0.60 x10E9/L 12/23/2024 10:06 AM [facility] Basophil Absolute 0.05 0.00 - 0.13 x10E9/L 12/23/2024 10:06 AM [facility] Blood BLOOD SPECIMEN / Unknown Venipuncture / Unknown 12/23/2024 9:06 AM CDT 12/23/2024 9:27 AM T us Yuval Krueger MD LAB - HEMATOLOGY ORDERABLES F inal Result [facility] [address] [place] [address], [facility] [phone] * (ABNORMAL) COMPREHENSIVE METABOLIC PANEL (12/23/2024 9:06 AM [facility]) BUN 9 7 - 26 mg/dL 12/23/2024 10:02 AM [facility] Creatinine 0.87 0.56 - 0.96 mg/dL 12/23/2024 10:02 AM [facility] Sodium 143 136 - 145 mmol/L 12/23/2024 10:02 AM [facility] Potassium 4.4 3.5 - 4.5 mmol/L 12/23/2024 10:02 AM [facility] Chloride 104 98 - 107 mmol/L 12/23/2024 10:02 AM [facility] CO2 31(H) 22 - 29 mmol/L 12/23/2024 10:02 AM [facility] Glucose 97 70 - 99 mg/dL 12/23/2024 10:02 AM [facility] Calcium 9.5 8.4 - 10.2 mg/dL 12/23/2024 10:02 AM [facility] Protein Total 6.7 6.0 - 8.3 g/dL 12/23/2024 10:02 AM [facility] Albumin 3.8 3.4 - 5.0 g/dL 12/23/2024 10:02 AM [facility] Bilirubin Total 0.4 0.2 - 1.2 mg/dL 12/23/2024 10:02 AM [facility] Alkaline Phosphatase 116 40 - 150 U/L 12/23/2024 10:02 AM [facility] ALT 30 5 - 55 U/L 12/23/2024 10:02 AM [facility] [facility] AST 32 5 - 34 U/L 12/23/2024 10:02 AM [facility] Anion Gap 8 6 - 16 12/23/2024 10:02 AM [facility] BUN/Creatinine Ratio 10 7 - 23 12/23/2024 10:02 AM [facility] Osmolality Calculated 295 275 - 295 mOsm/kg 12/23/2024 10:02 AM [facility] Albumin/Globulin Ratio 1.3 1.1 - 2.3 12/23/2024 10:02 AM [facility] eGFR by CKD-EPI 72(L) >=90 mL/min/1.7 3 m2 12/23/2024 10:02 AM [facility] Blood BLOOD SPECIMEN / Unknown Venipuncture / Unknown 12/23/2024 9:06 AM CDT 12/23/2024 9:27 AM T us Yuval Krueger MD LAB - CHEMISTRY ORDERABLES Fi nal Result [facility] [address] [place] [id number], [facility] [phone] * EKG 12-LEAD (12/23/2024 9:05 AM CDT) Ventricular Rate 56 BPM [facility] Atrial Rate 56 BPM [facility] P-R Interval 176 ms [facility] QRS Duration ms 82 ms [facility] Q-T Interval ms 450 ms [facility] QTC Calculation (Bezet) 434 ms [facility] Calculated P Wolford 45 degrees [facility] Calculated R Wol[place] 9 degrees [facility] Calculated T Wolford 54 degrees [facility] Interpretation EKG SINUS BRADYCARDIA LOW VOLTAGE QRS BORDERLINE ECG NO PREVIOUS ECGS AVAILABLE Confirmed by ROBBIE RENDON MD ([id number]) on 12/25/2024 12:16:38 PM [facility] M[facility] 12/23/2024 9:05 AM CDT 12/25/2024 12:16 PM CDT us Yuval Krueger MD ECG ORDERABLES Edited Result - Final [facility] * XR Tibia Fibula Left 2Vw [...] DATE/TIME OF EXAM: 12/23/2024 8:58 AM, LOCATION [facility] INDICATION: W18.30XA: Ground-level fall ADDITIONAL CLINICAL [...] XR TIBIA FIBULA LEFT 2VW, XR KNEE QSYQ2XG OR LESS, XR ANKLE LEFT 3VW OR MORE, DATE/TIME OF EXAM: 12/23/2024 8:58AM, LOCATION [facility] INDICATION: W18.30XA: Ground-level fall ADDITIONAL CLINICAL [...] 11:06 AM Yuval Krueger MD DIAGNOSTIC IMAGING ORDERABLES Final Result * XR Shoulder Left 2Vw or More [...] DATE/TIME OF EXAM: 12/23/2024 9:00 AM, LOCATION [facility] INDICATION: W18.30XA: Ground-level fall ADDITIONAL CLINICAL [...] DATE/TIME OF EXAM: 12/23/2024 9:00 AM, LOCATION [facility] INDICATION: W18.30XA: Ground-level fall ADDITIONAL CLINICAL [...] 9:24 AM Yuval Krueger MD DIAGNOSTIC IMAGING ORDERABLES Final Result * XR Pelvis W Left Hip 2Vw [...] DATE/TIME OF EXAM: 12/23/2024 9:00 AM, LOCATION [facility] INDICATION: W18.30XA: Ground-level fall ADDITIONAL CLINICAL [...] DATE/TIME OF EXAM: 12/23/2024 9:00 AM, LOCATION [facility] INDICATION: W18.30XA: Ground-level fall ADDITIONAL CLINICAL [...] Tonia Diane MD on 12/23/2024 9:28 AM us Yuval Krueger MD DIAGNOSTIC IMAGING ORDERABLES Final Result * XR Knee Left 2Vw or Less [...] DATE/TIME OF EXAM: 12/23/2024 8:58 AM, LOCATION [facility] INDICATION: W18.30XA: Ground-level fall ADDITIONAL CLINICAL [...] XR TIBIA FIBULA LEFT 2VW, XR KNEE QADG1KO OR LESS, XR ANKLE LEFT 3VW OR MORE, DATE/TIME OF EXAM: 12/23/2024 8:58AM, LOCATION [facility] INDICATION: W18.30XA: Ground-level fall ADDITIONAL CLINICAL [...] Fang Varela MD on 12/23/2024 11:06 AM us Yuval Krueger MD DIAGNOSTIC IMAGING ORDERABLES Final Result * XR Femur Left 2Vw (12/23/2024 8:58 [...] DATE/TIME OF EXAM: 12/23/2024 8:58 AM, LOCATION [facility] INDICATION: W18.30XA: Ground-level fall ADDITIONAL CLINICAL [...] XR TIBIA FIBULA LEFT 2VW, XR KNEE LNYF5ML OR LESS, XR ANKLE LEFT 3VW OR MORE, DATE/TIME OF EXAM: 12/23/2024 8:58AM, LOCATION [facility] INDICATION: W18.30XA: Ground-level fall ADDITIONAL CLINICAL [...] 11:06 AM Yuval Krueger MD DIAGNOSTIC IMAGING ORDERABLES Final Result * XR CHEST 2VW (12/23/2024 8:58 AM CDT) Anatomical Region Laterality Modality Chest Digital Radiogra phy 12/23/2024 9:06 AM CDT Narrative 12/23/2024 10:01 AM CDT PROCEDURE: XR CHEST 2VW, DATE/TIME OF EXAM: 12/23/2024 8:58 AM, LOCATION [facility] INDICATION: W18.30XA: Ground-level fall ADDITIONAL CLINICAL [...] DATE/TIME OF EXAM: 12/23/2024 8:58 AM, LOCATION [facility] INDICATION: W18.30XA: Ground-level fall ADDITIONAL CLINICAL [...] Fang Varela MD on 12/23/2024 10:01 AM us Yuval Krueger MD DIAGNOSTIC IMAGING ORDERABLES Final Result * XR Ankle Left 3Vw or More [...] DATE/TIME OF EXAM: 12/23/2024 8:58 AM, LOCATION [facility] INDICATION: W18.30XA: Ground-level fall ADDITIONAL CLINICAL [...] XR TIBIA FIBULA LEFT 2VW, XR KNEE SPAH3PM OR LESS, XR ANKLE LEFT 3VW OR MORE, DATE/TIME OF EXAM: 12/23/2024 8:58AM, LOCATION [facility] INDICATION: W18.30XA: Ground-level fall ADDITIONAL CLINICAL [...] 11:06 AM Yuval Krueger MD DIAGNOSTIC IMAGING ORDERABLES Final Result * FL Myelogram 2 or More Regions (12/08/2024 10:[address] GRADER OPERATOR) Anatomical Region Laterality Modality Spine Digital Radiogra phy 12/08/2024 1:[address] GRADER OPERATOR Impressions 12/13/2024 12:[address] GRADER OPERATOR IMPRESSION: 1.Successful lumbar puncture for cervical [...] degenerative disc and joint disease as detailed xlsll-ck-bsclk above, worse at L4-L5, as outlined. 2.Transitional anatomy as noted above. The report is dictated by Addi Arambula MD, (residential construction instructor) Attending Physician: Dr. Magdalena Blackmon Toy Department Manager: Dr. Addi Arambula MD, (residential construction instructor) The procedure was performed by the: The studio assistant, and the attending radiologist was [...] 12/13/2024 12:15 PM Narrative 12/13/2024 12:[address] GRADER OPERATOR PROCEDURE: FL MYELOGRAM 2 OR MORE REGIONS, CT LUMBAR POST MYELOGRAM, CT CERVICAL POST MYELOGRAM DATE/TIME OF EXAM: 12/08/2024 10:34 AM CLINICAL INFORMATION: PROCEDURE: FL MYELOGRAM 2 OR MORE REGIONS, CT LUMBAR POST MYELOGRAM, CT CERVICAL POST MYELOGRAM, DATE/TIME OF EXAM: 12/08/2024 10:34 AM, LOCATION [facility] INDICATION: M54.50: Lumbar spine pain ADDITIONAL CLINICAL INFORMATION: Ordering Provider Reason For Exam: myelopathy (accession [id number]), chronic low back pain (accession [id number]) Technologist Note: None. Additional: None. EXAMINATION: 1.Lumbar [...] The patient was then transferred to the professional healthcare representative unit for further observation and 2 hours [...] no high-grade central canal stenosis. There is gavk-ak-isakijua facet osteoarthritis. There is mild bilateral neural foraminal stenosis. Procedure Note Magdalena Blackmon MD - 12/13/2024 PROCEDURE: FL MYELOGRAM 2 OR MORE REGIONS, CT LUMBAR POST MYELOGRAM, CT CERVICAL POST MYELOGRAM DATE/TIME OF EXAM: 12/08/2024 10:34 AM CLINICAL INFORMATION: PROCEDURE: FL MYELOGRAM 2 OR MORE REGIONS, CTLUMBAR POST MYELOGRAM, CT CERVICAL POST MYELOGRAM, DATE/TIME OF EXAM:12/08/2024 10:34 AM, LOCATION [facility] INDICATION: M54.50: Lumbar spine pain ADDITIONAL CLINICAL INFORMATION: Ordering Provider Reason For Exam: myelopathy (accession [id number]), chronic low back pain (accession [id number]) Technologist Note: None. Additional: None. EXAMINATION: 1.Lumbar [...] well. The patient wasthen transferred to the professional healthcare representative unit for further observation and 2hours of [...] island in the right aspect of the C0hdyabvstz body. Vertebral bodies are normal in height [...] is no high-grade central canal stenosis. Thereis nhos-oa-gzhhxicr facet osteoarthritis. There is mild bilateral neural [...] 1.Multilevel degenerative disc and joint disease as kxjvgsmhqwroc-wd-apogw above, worse at L4-L5, as outlined. 2.Transitional anatomy as noted above. The report is dictated by Addi Arambula MD, (residential construction instructor) Attending Physician: Dr. Magdalena Blackmon Toy Department Manager: Dr. Addi Arambula MD, (residential construction instructor) The procedure was performed by the: The studio assistant, and the attending radiologist was [...] 12/13/2024 12:15 PM Cornelio Lima MD FLUOROSCOPY ORDERABLES Final Result * CT Lumbar Post Myelogram (12/08/2024 10:[address] GRADER OPERATOR) Anatomical Region Laterality Modality Spine Computed Tomogra phy 12/08/2024 1:[address] GRADER OPERATOR Impressions 12/13/2024 12:[address] GRADER OPERATOR IMPRESSION: 1.Successful lumbar puncture for cervical [...] degenerative disc and joint disease as detailed rsawb-qr-jkpsr above, worse at L4-L5, as outlined. 2.Transitional anatomy as noted above. The report is dictated by Addi Arambula MD, (residential construction instructor) Attending Physician: Dr. Magdalena Blackmon Toy Department Manager: Dr. Addi Arambula MD, (residential construction instructor) The procedure was performed by the: The studio assistant, and the attending radiologist was [...] 12/13/2024 12:15 PM Narrative 12/13/2024 12:[address] GRADER OPERATOR PROCEDURE: FL MYELOGRAM 2 OR MORE REGIONS, CT LUMBAR POST MYELOGRAM, CT CERVICAL POST MYELOGRAM DATE/TIME OF EXAM: 12/08/2024 10:34 AM CLINICAL INFORMATION: PROCEDURE: FL MYELOGRAM 2 OR MORE REGIONS, CT LUMBAR POST MYELOGRAM, CT CERVICAL POST MYELOGRAM, DATE/TIME OF EXAM: 12/08/2024 10:34 AM, LOCATION [facility] INDICATION: M54.50: Lumbar spine pain ADDITIONAL CLINICAL INFORMATION: Ordering Provider Reason For Exam: myelopathy (accession [id number]), chronic low back pain (accession [id number]) Technologist Note: None. Additional: None. EXAMINATION: 1.Lumbar [...] The patient was then transferred to the professional healthcare representative unit for further observation and 2 hours [...] no high-grade central canal stenosis. There is rnlg-py-kyiwujbl facet osteoarthritis. There is mild bilateral neural foraminal stenosis. Procedure Note Magdalena Blackmon MD - 12/13/2024 PROCEDURE: FL MYELOGRAM 2 OR MORE REGIONS, CT LUMBAR POST MYELOGRAM, CT CERVICAL POST MYELOGRAM DATE/TIME OF EXAM: 12/08/2024 10:34 AM CLINICAL INFORMATION: PROCEDURE: FL MYELOGRAM 2 OR MORE REGIONS, CTLUMBAR POST MYELOGRAM, CT CERVICAL POST MYELOGRAM, DATE/TIME OF EXAM:12/08/2024 10:34 AM, LOCATION [facility] INDICATION: M54.50: Lumbar spine pain ADDITIONAL CLINICAL INFORMATION: Ordering Provider Reason For Exam: myelopathy (accession [id number]), chronic low back pain (accession [id number]) Technologist Note: None. Additional: None. EXAMINATION: 1.Lumbar [...] well. The patient wasthen transferred to the professional healthcare representative unit for further observation and 2hours of [...] island in the right aspect of the C2zjcwimqji body. Vertebral bodies are normal in height [...] is no high-grade central canal stenosis. Thereis upsp-dj-dceojztw facet osteoarthritis. There is mild bilateral neural [...] 1.Multilevel degenerative disc and joint disease as lmcseddyfnspq-dp-zpsry above, worse at L4-L5, as outlined. 2.Transitional anatomy as noted above. The report is dictated by Addi Arambula MD, (residential construction instructor) Attending Physician: Dr. Magdalena Blackmon Toy Department Manager: Dr. Addi Arambula MD, (residential construction instructor) The procedure was performed by the: The studio assistant, and the attending radiologist was present for allcritical and mariscal portions of the procedure, and [facility] entire procedure. The attending radiologist performed the following procedural activities: IDr. Magdalena was there and supervised mariscal portions of the procedure, not scrubbed. IMagdalena MD have personally reviewed and interpretedthis examination/study. > Interpreting Provider: Magdalena Blackmon MD on 12/13/2024 12:15 PM us Cornelio Lima MD CT ORDERABLES Final Result * CT Cervical Post Myelogram (12/08/2024 10:[address] GRADER OPERATOR) Anatomical Region Laterality Modality Spine Computed Tomogra phy 12/08/2024 1:[address] GRADER OPERATOR Impressions 12/13/2024 12:[address] GRADER OPERATOR IMPRESSION: 1.Successful lumbar puncture for cervical [...] degenerative disc and joint disease as detailed tmuay-kn-yyquk above, worse at L4-L5, as outlined. 2.Transitional anatomy as noted above. The report is dictated by Addi Arambula MD, (residential construction instructor) Attending Physician: Dr. Magdalena Blackmon Toy Department Manager: Dr. Addi Arambula MD, (residential construction instructor) The procedure was performed by the: The studio assistant, and the attending radiologist was [...] 12/13/2024 12:15 PM Narrative 12/13/2024 12:[address] GRADER OPERATOR PROCEDURE: FL MYELOGRAM 2 OR MORE REGIONS, CT LUMBAR POST MYELOGRAM, CT CERVICAL POST MYELOGRAM DATE/TIME OF EXAM: 12/08/2024 10:34 AM CLINICAL INFORMATION: PROCEDURE: FL MYELOGRAM 2 OR MORE REGIONS, CT LUMBAR POST MYELOGRAM, CT CERVICAL POST MYELOGRAM, DATE/TIME OF EXAM: 12/08/2024 10:34 AM, LOCATION [facility] INDICATION: M54.50: Lumbar spine pain ADDITIONAL CLINICAL INFORMATION: Ordering Provider Reason For Exam: myelopathy (accession [id number]), chronic low back pain (accession [id number]) Technologist Note: None. Additional: None. EXAMINATION: 1.Lumbar [...] The patient was then transferred to the professional healthcare representative unit for further observation and 2 hours [...] no high-grade central canal stenosis. There is arke-oa-rbeogddf facet osteoarthritis. There is mild bilateral neural foraminal stenosis. Procedure Note Magdalena Blackmon MD - 12/13/2024 PROCEDURE: FL MYELOGRAM 2 OR MORE REGIONS, CT LUMBAR POST MYELOGRAM, CT CERVICAL POST MYELOGRAM DATE/TIME OF EXAM: 12/08/2024 10:34 AM CLINICAL INFORMATION: PROCEDURE: FL MYELOGRAM 2 OR MORE REGIONS, CTLUMBAR POST MYELOGRAM, CT CERVICAL POST MYELOGRAM, DATE/TIME OF EXAM:12/08/2024 10:34 AM, LOCATION [facility] INDICATION: M54.50: Lumbar spine pain ADDITIONAL CLINICAL INFORMATION: Ordering Provider Reason For Exam: myelopathy (accession [id number]), chronic low back pain (accession [id number]) Technologist Note: None. Additional: None. EXAMINATION: 1.Lumbar [...] well. The patient wasthen transferred to the professional healthcare representative unit for further observation and 2hours of [...] island in the right aspect of the W8gwrntcpja body. Vertebral bodies are normal in height [...] is no high-grade central canal stenosis. Thereis bkzl-wb-ptzqtqvv facet osteoarthritis. There is mild bilateral neural [...] 1.Multilevel degenerative disc and joint disease as ahkutmrxqiwxj-wl-hvedv above, worse at L4-L5, as outlined. 2.Transitional anatomy as noted above. The report is dictated by Addi Arambula MD, (residential construction instructor) Attending Physician: Dr. Magdalena Blackmon Toy Department Manager: Dr. Addi Arambula MD, (residential construction instructor) The procedure was performed by the: The studio assistant, and the attending radiologist was [...] 12:[address] MD [address] ORDERABLES Final Result * XR Spine Entire 2 or 3Vw (11/23/2024 11:[address] GRADER OPERATOR) Anatomical Region Laterality Modality Spine Radiographic Erna ging 11/23/2024 11:[address] GRADER OPERATOR Impressions 11/23/2024 11:[address] GRADER OPERATOR IMPRESSION: Mild scoliosis. > Interpreting Provider: Baljinder Henson MD on 11/23/2024 11:34 AM Narrative 11/23/2024 11:[address] GRADER OPERATOR PROCEDURE: XR SPINE ENTIRE 2 OR [...] 10 degrees, a lower thoracic levo curve mbazwydrw97 degrees, and a lumbar dextro curve measuring less than 10 degrees. The cervical lordosis is straightened. The thoracic kyphosis and lumbar lordosis are maintained. There is grade 1 anterolisthesis at L4-5. Thereis moderate cervical and mild thoracic and lumbar degenerative change. IMPRESSION: Mild scoliosis. > Interpreting Provider: Baljinder Henson MD on 11/23/2024 11:34 AM Cornelio Lima MD DIAGNOSTIC IMAGING ORD ERABLES Final Result * XR Cervical Spine 2 or 3Vw (11/23/2024 11:[address] GRADER OPERATOR) Anatomical Region Laterality Modality Spine Radiographic Erna ging 11/23/2024 11:[address] GRADER OPERATOR Impressions 11/23/2024 11:[address] GRADER OPERATOR IMPRESSION: Moderate cervical spondylosis. > Interpreting Provider: Baljinder Henson MD on 11/23/2024 11:31 AM Narrative 11/23/2024 11:[address] GRADER OPERATOR PROCEDURE: XR CERVICAL SPINE 2 OR [...] 11/23/2024 11:31 AM Cornelio Lima MD DIAGNOSTIC IMAGING ORD ERABLES Final Result * XR Lumbar Spine 2 or 3Vw (11/23/2024 10:[address] GRADER OPERATOR) Anatomical Region Laterality Modality Spine Computed Radiogr aphy 11/23/2024 10:[address] GRADER OPERATOR Impressions 11/23/2024 10:[address] GRADER OPERATOR IMPRESSION: Mild to moderate degenerative changes. > Interpreting Provider: Baljinder Henson MD on 11/23/2024 10:39 AM Narrative 11/23/2024 10:[address] GRADER OPERATOR PROCEDURE: XR LUMBAR SPINE 2 OR [...] Baljinder Henson MD on 11/23/2024 10:39 AM us Cornelio Lima MD DIAGNOSTIC IMAGING ORD ERABLES Final Result * PATHOLOGY TISSUE (11/11/2024 10:[address] GRADER OPERATOR) Case Report Surgical Pathology Report Case: [id number] Authorizing Provider: Sixto Cornell MD Collected: 11/11/2024 10:16 AM Ordering Location: [facility] END[facility]COPY Received: 11/11/2024 10:58 AM [...] [facility] PATHOLOG[facility] LAB Pathologist Location at [facility] 11/14/2024 3:20 PM [facility] Disclaimer The performance characteristics of all immunohistochemical and indirect immunofluorescence stains (if any) cited in this report were determined by the Histopathology Laboratory of [facility]. Some of these tests [...] POLYP / Unknown 11/11/2024 1 0:[address] GRADER OPERATOR 11/11/2024 10:[address] GRADER OPERATOR Comment:Pre-op diagnosis: Screen for colon cancer [Z12.11] Biopsy, NOS POLYP / Unknown 11/11/2024 1 0:[address] GRADER OPERATOR 11/11/2024 10:[address] GRADER OPERATOR Comment:Pre-op diagnosis: Screen for colon cancer [Z12.11] us Sixto Cornell MD LAB - PATHOLOGY/CYTOLOGY ORDERA BLES Final Result [facility] PATHOLOGY LAB [address] [phone] * ENDOSCOPY, COLON, SCREENING (11/11/2024 9:[address] GRADER OPERATOR) Report Endoscopy POC Endoscopy Department Report [...] bowel preparation was evaluated using the BBPS ([place] Bowel Preparation Scale) with scores of: Right [...] non-mariscal portions. Procedure Code(s): --- Professional --- 09015, Colonoscopy, flexible; with removal of tumor(s), polyp(s), or other lesion(s) by snare technique 13695, 59, Colonoscopy, flexible; with biopsy, single or multiple Diagnosis Code(s): --- Professional --- Z86.010, Personal history of colonic polyps D12.2, Benign neoplasm of ascending colon D12.4, Benign neoplasm of descending colon K57.30, Diverticulosis of large intestine without perforation or abscess without bleeding CPT copyright 2021 [employer] [place] [employer]. All rights reserved. The codes documented in this report are preliminary and upon wrister review may be revised to meet current compliance requirements. Sixto Cornell MD 11/11/2024 10:36:45 AM This report has been signed electronically. Note Initiated On: 11/11/2024 9:52 AM Number of Addenda: [address] [address] [facility] 11/11/2024 9:[address]ADER OPERATOR us Sixto Cornell MD GI PROCEDURE ORDERABLES Edited Result - Final Performing Organization Address City/[facility]/ZIP Co de Phone Number [facility] * GLUCOSE - POINT OF CARE (11/11/2024 9:[address] GRADER OPERATOR) Glucose WB/POC 99 70 - 99 mg/dL 11/11/2024 9:[address] GRADER OPERATOR [facility] Specimen Type Venous 11/11/2024 9:[address] GRADER OPERATOR [facility] Blood BLOOD SPECIMEN / Unknown 11/11/2024 9:[address] GRADER OPERATOR 11/11/2024 9:[address] GRADER OPERATOR us Sixto Cornell MD LAB - POINT OF CARE ORDERABLES Final Result Performing Organization Address City/[facility]/ZIP Co de Phone Number [address] [address], [facility] [phone] * CALPROTECTIN FECAL (11/07/2024 3:[address] GRADER OPERATOR) Calprotectin Fecal 69 mcg/g [facility] Comment: Reference [...] suggested for borderline values. Test Performed at: [facility] [address] [place] [address] JARRELL CALDERON MD,PHD,EDGARDO Stool STOOL SPECIMEN / Unknown 11/07/2024 3:[address] GRADER OPERATOR 11/08/2024 4:[address] GRADER OPERATOR Yolanda Greer PREPARER-ENTERPRISE MANAGER LAB - BODY FLUID ORDERABLES Final Result Performing Organization Address [facility] Co de Phone Number [address] [address] * CULTURE STOOL PANEL (11/07/2024 3:[address] GRADER OPERATOR) Campylobacter Antigen [facility] Comment: CAMPYLOBACTER SPP. AG,EIA Micro Number: [id number] Test Status: Final Specimen Source: Stool Specimen Quality: Adequate Campy Ag Result: Not Detected Reference Range: Not Detected EIA [facility] Comment: SHIGA TOXINS, EIA W/RFL TO E.COLI O157 CULTURE Micro Number: [id number] Test Status: Final Specimen Source: Stool Specimen Quality: Adequate Shiga Toxin: Not Detected Reference Range: Not Detected Culture [facility] Comment: SALMONELLA AND SHIGELLA, CULTURE Micro Number: [id number] Test Status: Final Specimen Source: Stool Specimen Quality: Adequate Result: No Salmonella or Shigella isolated Test Performed at: [facility] [address] SAROJ FAUSTIN MD Stool STOOL SPECIMEN / Unknown 11/07/2024 3:[address] GRADER OPERATOR 11/07/2024 11:[address] GRADER OPERATOR Yolanda Greer APRN-ENTERPRISE MANAGER LAB - MICROBIOLO GY ORDERABLES Final Result Performing Organization Address [facility] Co de Phone Number [address] [address] * C DIFFICILE CYTOTOXIN (11/07/2024 3:[address] GRADER OPERATOR) Cytotoxin Assay Stool NOT DETECTED [facility] [...] (GDH) with Reflex to PCR, order code 98744 or Clostridium difficile toxin B, Qualitative real time PCR, test code 40524 to be more sensitive and timely methods for the diagnosis of C. difficile colitis. For additional information, please refer to http://C[employer] Style.Kingmaker/faq/EIG658 (This link is being provided for informational/ educational purposes only.) Test Performed at: [facility] [address] [place] [address] JARRELL CALDERON MD,PHD,EDGARDO Stool STOOL SPECIMEN / Unknown 11/07/2024 3:[address] GRADER OPERATOR 11/08/2024 4:[address] GRADER OPERATOR Yolanda Greer PREPARER-ENTERPRISE MANAGER LAB - MICROBIOLO GY ORDERABLES Final Result Performing Organization Address City/[facility]/ZIP Co de Phone Number [facility] [address] [place] [address] * PROC DEEP BRAIN STIMULATOR (11/03/2024 2:[address] GRADER OPERATOR) Narrative Moncho Salcedo APRN-CNP - 11/03/2024 2:[address] GRADER OPERATOR Moncho Salcedo APRN-CNP 11/03/2024 4:00 PM Please see office notes for documentation- Thanks Moncho [place] PROCEDURE/MINOR SURGICAL ORDERABLES Final Result * HEMOGLOBIN A1C - POINT OF CARE (AMB) [facility] (04/04/2024 11:34 AM CDT) Hemoglobin A1c POCT 5.4 % [facility] [address] [facility] BLOOD SPECIMEN / Unknown 04/04/2024 11:34 AM CDT Kerry Coffman DO LAB - POINT OF CARE ORDERABL ES Final Result Performing Organization Address [facility]/ZIP Co de Phone Number [facility] [address] [facility] [address] [facility], [place] [address], [facility] [phone] * MICROALB/CREAT RATIO URINE RANDOM PANEL (02/05/2023 [...] within a diagnostic category. Test Performed at: [facility] [address] [place] [address] SAROJ FAUSTIN MD 02/05/2023 12:2 6 PM CDT 02/05/2023 12:27 PM CDT Marquise Adames MD LAB - URINE CHEMISTRY ORDERABL ES Final Result [facility] [address] [place] [address] from Last 3 Months or Most Recently Relevant to Health Maintenance Insurance [facility] MANAGED MEDICARE ADV [facility] [place] [id number] [facility] MANAGED MEDICARE ADV Advance Directives * Full Code (Latest Code Status on File) Date Activated Date Inactivated Comments 08/29/2022 4:40 PM 08/31/2022 1:59 PM * Full Code Date Activated Date Inactivated Comments 03/17/2022 3:37 PM 03/19/2022 1:47 PM Care Teams Flume Worker Relationship Specialty Start Date End Date Kerry Coffman DO [address] DIV [place] [address] PCP - General Internal Medicine 12/15/23 Kerry Coffman DO [address] DIV [place] [address] PCP - [facility] TAYLOR P4P 12/10/24
--- OUTSIDE RECORDS SUMMARY | 2025-01-30 17:27 | XMS_ITS | Referral Summary ---
Author Organization [facility] Address [address] [place] [phone] Care Team Providers Care Perinatology Physician Name Role Phone Kerry Coffman DO Primary Care Provider Encounters Date Type Department Care Team Description 11/21/2024 1:50 PM ARABIC TEACHER - 11/21/2024 11:59 PM ARABIC TEACHER Hospital Encounter [facility] Radiology at [facility] [address] [place] [id number] Discharge Disposition: Discharge to home or self care 11/21/2024 1:20 PM ARABIC TEACHER Office Visit [facility] Rheumatology [address] [facility] [address]nd [address] [place] [address] Marialuisa Franklin, SAMI Rheumatoid arthritis with negative rheumatoid factor, involving unspecified site (HCC) (Primary Dx); High risk medication use 11/15/2024 10:40 AM ARABIC TEACHER - 11/15/2024 11:59 PM ARABIC TEACHER Hospital Encounter [address] [address] High risk medication use Discharge Disposition: Discharge to home or self care 11/15/2024 10:30 AM ARABIC TEACHER Infusion [facility] Infusion Therapy [address] [facility] 2nd [address] [place] [address] Rheumatoid arthritis with negative rheumatoid factor, involving [...] 1 tablet (2 mg total) by mouth clinic office manager before breakfast 4 Active azelastine (ASTELIN) [...] on file Legal Sex Female 10:45 PM ARABIC TEACHER Gender Identity Not on file Sexual Orientation Not on file Last Filed Vital Signs Vital Sign Reading Time Taken Comments Blood Pressure 93/58 11/21/2024 1:01 PM ARABIC TEACHER Pulse 63 11/21/2024 1:01 PM ARABIC TEACHER Temperature 36.6 C (97.8 F) 11/21/2024 1:01 PM ARABIC TEACHER Respiratory Rate - - Oxygen Saturation 99% 11/21/2024 1:01 PM ARABIC TEACHER Inhaled Oxygen Concentration - - Weight 68 kg (150 lb) 11/21/2024 1:01 PM ARABIC TEACHER Height 167.6 cm (5' 5.98 ) 11/21/2024 1:01 PM CS T Body Mass Index 24.22 11/21/2024 1:01 PM ARABIC TEACHER Plan of Treatment Not on file Procedures Procedure Name Priority Date/Time Associated Diagnosis Comments XR HAND RIGHT 3 OR MORE VIEWS Schedule Routine, Read Routine (OP Routine) 11/21/2024 2:04 PM ARABIC TEACHER Rheumatoid arthritis with negative rheumatoid factor, involving unspecified site (HCC) XR HAND LEFT 3 OR MORE VIEWS Schedule Routine, Read Routine (OP Routine) 11/21/2024 2:04 PM ARABIC TEACHER Rheumatoid arthritis with negative rheumatoid factor, involving unspecified site (HCC) XR WRIST RIGHT 3 OR MORE VIEWS Schedule Routine, Read Routine (OP Routine) 11/21/2024 2:04 PM ARABIC TEACHER Rheumatoid arthritis with negative rheumatoid factor, involving unspecified site (HCC) XR WRIST LEFT 3 OR MORE VIEWS Schedule Routine, Read Routine (OP Routine) 11/21/2024 2:04 PM ARABIC TEACHER Rheumatoid arthritis with negative rheumatoid factor, involving unspecified site (HCC) EGFR Routine 11/15/2024 1:46 PM ARABIC TEACHER High risk medication use DIFFERENTIAL AUTO Routine 11/15/2024 1:4 6 PM ARABIC TEACHER High risk medication use COMPREHENSIVE METABOLIC PANEL Routine 11/15/2024 1:46 PM ARABIC TEACHER High risk medication use CBC WITH AUTO DIFFERENTIAL Routine 11/15/2024 1:46 PM ARABIC TEACHER High risk medication use TB TEST, QUANTIFERON GOLD Routine 11/07/2024 3:55 PM ARABIC TEACHER High risk medication use DEXA AXIAL SKELETON [...] 3 or More Views (11/21/2024 2:04 PM ARABIC TEACHER) Anatomical Region Laterality Modality Upper Extremities, Hand Right Computed Radiography 11/21/2024 2:23 PM ARABIC TEACHER Addenda Addendum by Pipe Valdivia MD on 11/22/2024 12:50 PM ARABIC TEACHER ADDENDUM: Progressive polyarticular erosions involving the bilateral hands and wrists, most prominent in the carpus bilaterally. This is consistent with progressive inflammatory arthritis in this patient with known rheumatoid arthritis. Electronically signed by: Pipe Valdivia MD Impressions 11/21/2024 2:23 PM ARABIC TEACHER 1. Healing fracture of the left 4th metacarpal shaft with shortening and mild ulnar displacement. 2. Polyarticular erosions involving the bilateral hands and wrists, most prominent in the carpus bilaterally. This is consistent with inflammatory arthritis. Statistically, this is most likely due to rheumatoid arthritis. Electronically signed by: Pipe Valdivia MD Narrative 11/21/2024 2:23 PM ARABIC TEACHER EXAMINATION: XR WRIST LEFT 3 OR MORE [...] signed by: Pipe Valdivia MD Marialuisa Franklin PEST CONTROL APPLICATOR IMG XR PROCEDURES Edited R esult - Final * XR Hand Left 3 or More Views (11/21/2024 2:04 PM ARABIC TEACHER) Anatomical Region Laterality Modality Upper Extremities, Hand Left Computed Radiography 11/21/2024 2:23 PM ARABIC TEACHER Addenda Addendum by Pipe Valdivia MD on 11/22/2024 12:50 PM ARABIC TEACHER ADDENDUM: Progressive polyarticular erosions involving the bilateral hands and wrists, most prominent in the carpus bilaterally. This is consistent with progressive inflammatory arthritis in this patient with known rheumatoid arthritis. Electronically signed by: Pipe Valdivia MD Impressions 11/21/2024 2:23 PM ARABIC TEACHER 1. Healing fracture of the left 4th metacarpal shaft with shortening and mild ulnar displacement. 2. Polyarticular erosions involving the bilateral hands and wrists, most prominent in the carpus bilaterally. This is consistent with inflammatory arthritis. Statistically, this is most likely due to rheumatoid arthritis. Electronically signed by: Pipe Valdivia MD Narrative 11/21/2024 2:23 PM ARABIC TEACHER EXAMINATION: XR WRIST LEFT 3 OR MORE [...] 3 or More Views (11/21/2024 2:04 PM ARABIC TEACHER) Anatomical Region Laterality Modality Upper Extremities, Wrist Right Compute d Radiography 11/21/2024 2:23 PM ARABIC TEACHER Addenda Addendum by Pipe Valdivia MD on 11/22/2024 12:50 PM ARABIC TEACHER ADDENDUM: Progressive polyarticular erosions involving the bilateral hands and wrists, most prominent in the carpus bilaterally. This is consistent with progressive inflammatory arthritis in this patient with known rheumatoid arthritis. Electronically signed by: Pipe Valdivia MD Impressions 11/21/2024 2:23 PM ARABIC TEACHER 1. Healing fracture of the left 4th metacarpal shaft with shortening and mild ulnar displacement. 2. Polyarticular erosions involving the bilateral hands and wrists, most prominent in the carpus bilaterally. This is consistent with inflammatory arthritis. Statistically, this is most likely due to rheumatoid arthritis. Electronically signed by: Pipe Valdivia MD Narrative 11/21/2024 2:23 PM ARABIC TEACHER EXAMINATION: XR WRIST LEFT 3 OR MORE [...] 3 or More Views (11/21/2024 2:04 PM ARABIC TEACHER) Anatomical Region Laterality Modality Upper Extremities, Wrist Left Compute d Radiography 11/21/2024 2:23 PM ARABIC TEACHER Addenda Addendum by Pipe Valdivia MD on 11/22/2024 12:50 PM ARABIC TEACHER ADDENDUM: Progressive polyarticular erosions involving the bilateral hands and wrists, most prominent in the carpus bilaterally. This is consistent with progressive inflammatory arthritis in this patient with known rheumatoid arthritis. Electronically signed by: Pipe Valdivia MD Impressions 11/21/2024 2:23 PM ARABIC TEACHER 1. Healing fracture of the left 4th metacarpal shaft with shortening and mild ulnar displacement. 2. Polyarticular erosions involving the bilateral hands and wrists, most prominent in the carpus bilaterally. This is consistent with inflammatory arthritis. Statistically, this is most likely due to rheumatoid arthritis. Electronically signed by: Pipe Valdivia MD Narrative 11/21/2024 2:23 PM ARABIC TEACHER EXAMINATION: XR WRIST LEFT 3 OR MORE [...] signed by: Pipe Valdivia MD Marialuisa Franklin PEST CONTROL APPLICATOR IMG XR PROCEDURES Edited R esult - Final * eGFR (11/15/2024 1:46 PM ARABIC TEACHER) eGFR 67 >=60 mL/min/1. 73 m2 Comment: [...] last reviewed 2021. Blood 11/15/2024 1:46 PM ARABIC TEACHER 11/15/2024 2:48 PM ARABIC TEACHER us Marialuisa Franklin PEST CONTROL APPLICATOR LAB BLOOD ORDERABLES Final Result [facility] [place] [address] * Differential, auto (11/15/2024 1:46 PM ARABIC TEACHER) Neutrophil abs 3.2 1.5 - 6.5 K/cumm Imm gran abs 0.0 0.0 - 0.1 K/cumm [facility] Lymphocyte abs 1.1 0.8 - 3.3 K/cumm [facility] Monocyte abs 0.6 0.2 - 0.8 K/cumm [facility] Eosinophil abs 0.1 0.0 - 0.5 K/cumm [facility] Basophil abs 0.1 0.0 - 0.1 K/cumm [facility] Neutrophil pct 63.6 % [facility] Comment: Interpretive Data Percent cell count reference ranges are not reported, since discordance with absolute values may lead to misinterpretation of CBC data. Current Interpretive Data was last revised on 2018. Imm gran pct 0.4 % [facility] Comment: Interpretive Data Percent cell count reference ranges are not reported, since discordance with absolute values may lead to misinterpretation of CBC data. Current Interpretive Data was last revised on 2018. Lymphocyte pct 21.4 % [facility] Comment: Interpretive Data Percent cell count reference ranges are not reported, since discordance with absolute values may lead to misinterpretation of CBC data. Current Interpretive Data was last revised on 2018. Monocyte pct 11.4 % [facility] Comment: Interpretive Data Percent cell count reference ranges are not reported, since discordance with absolute values may lead to misinterpretation of CBC data. Current Interpretive Data was last revised on 2018. Eosinophil pct 2.0 % [facility] Comment: Interpretive Data Percent cell count reference ranges are not reported, since discordance with absolute values may lead to misinterpretation of CBC data. Current Interpretive Data was last revised on 2018. Basophil pct 1.2 % [facility] Comment: Interpretive Data Percent cell count reference ranges are not reported, since discordance with absolute values may lead to misinterpretation of CBC data. Current Interpretive Data was last revised on 2018. Blood 11/15/2024 1:46 PM ARABIC TEACHER 11/15/2024 1:59 PM ARABIC TEACHER us Marialuisa Franklin PEST CONTROL APPLICATOR LAB BLOOD ORDERABLES Final Result [facility] [place] [address] * CBC with auto differential (11/15/2024 1:46 PM ARABIC TEACHER) WBC 5.0 3.8 - 9.9 K/cumm Hgb 13.7 11.9 - 15.5 g/dL [facility] Hct 41.1 35.6 - 45.5 % [facility] Plt 256 150 - 400 K/cumm [facility] MPV 11.0 9.1 - 12.3 fL [facility] RBC 4.32 3.90 - 5.20 M/cumm [facility] MCV 95.1 81.3 - 96.4 fL [facility] MCH 31.7 27.1 - 33.3 pg [facility] MCHC 33.3 32.3 - 35.7 g/dL [facility] RDW CV 13.3 11.1 - 14.9 % [facility] RDW SD 47.1 35.7 - 48.1 fL [facility] NRBC abs 0.00 0.00 - 0.01 K/cumm [facility] Blood 11/15/2024 1:46 PM ARABIC TEACHER 11/15/2024 1:59 PM ARABIC TEACHER us Marialuisa Franklin NP LAB BLOOD ORDERABLES Final Result Performing Organization Address City/[facility]/ZIP Co de Phone Number [facility] Department [place] [address] * Comprehensive metabolic panel (11/15/2024 1:46 PM ARABIC TEACHER) Sodium 139 135 - 145 mmol/L Potassium, pl 4.5 3.3 - 4.9 mmol/L [facility] Chloride 103 97 - 110 mmol/L [facility] CO2 26 22 - 32 mmol/L [facility] Anion gap 10 2 - 15 mmol/L [facility] BUN 15 6 - 25 mg/dL [facility] Creatinine 0.92 0.60 - 1.10 mg/dL [facility] Glucose 105 70 - 199 mg/dL [facility] Comment: Interpretive Data Fasting glucose >/= [...] 2022. Calcium 9.5 8.5 - 10.3 mg/dL [facility] Bilirubin, total 0.3 0.1 - 1.2 mg/dL [facility] Protein, pl 7.1 6.5 - 8.5 g/dL [facility] Albumin 4.3 3.5 - 5.0 g/dL [facility] Alk phos 121 40 - 130 Units/L [facility] ALT 19 7 - 45 Units/L [facility] AST 22 10 - 45 Units/L [facility] Blood 11/15/2024 1:46 PM ARABIC TEACHER 11/15/2024 2:48 PM ARABIC TEACHER us Marialuisa Franklin NP LAB BLOOD ORDERABLES Final Result [facility] Department [place] [address] * TB test, quantiferon gold (11/07/2024 3:55 PM ARABIC TEACHER) [facility] QuantiFERON(R)-T B Gold Plus, 1 Tube [...] T-lymphocytes. For additional information, please refer to https://education.Nearway/faq/KLI634 (This link is being provided for informational/ educational purposes only.) Blood 11/07/2024 3:55 PM ARABIC TEACHER 11/07/2024 3:56 PM ARABIC TEACHER Marialuisa Franklin PEST CONTROL APPLICATOR LAB BLOOD ORDERABLES Final Result [facility] [address] [place] [address] * Dexa Axial Skeleton Bone Density 1 [...] bone mineral density scan were prepared by Parlu Jimenez) DAVEY who is accredited by the International Society of Clinical Densitometry. The overall patient assessment and scan interpretation were performed by Mar Orozco MD who is certified by the International Society of Clinical Densitometry. [id number] Marialuisa Franklni NP IMG DXA PROCEDURES Final R esult * Hepatitis panel, acute (05/24/2020 9:45 AM CDT) Hep A IgM Nonreactive Nonreactive [facility] Comment: Interpretive Data: If Hep A IgM Ab is reported as Equivocal, a new sample should be drawn in two weeks for testing. Current interpretive data was last revised on 19. Hep B core IgM Nonreactive Nonreactive [facility] Comment: Interpretive Data If HepB Core IgM Ab is reported as Equivocal, a new sample should be drawn in two weeks for testing. Current interpretive data was last revised on 19. Hep C Ab Nonreactive Nonreactive [facility] Comment:Antibodies to HCV no t detected. Does NOT exclude the possibility of recent exposure to HCV. HepBsAg Nonreactive Nonreactive [facility] Blood specimen (specimen) 05/24/2020 9:45 AM CDT 05/24/2020 12:08 PM CDT Marialuisa Franklin NP LAB MICROBIOLOGY - GENERAL ORDERABLES Edited Result - Final [facility] [place] [address] from Last 3 Months or Most Recently Relevant to Health Maintenance Insurance [employer] [facility] MEDICARE ADVANTAGE [facility] MEDICARE MEDICARE [facility] MEDICARE ADVANTAGE Care Teams Perinatology Physician Relationship Specialty Start Date End Date Kerry Coffman DO [address] [place] [address] PCP - General Internal Medicine 04/19/24
--- OUTSIDE RECORDS SUMMARY | 2025-01-30 17:27 | XMS_ITS | Clinical Summary ---
Author Organization [facility] Address [address] [place] [phone] Care Team Providers Care Environmental Permitting Specialist Name Role Phone Kerry Coffman Primary [...] 1 tablet (2 mg total) by mouth director of academic before breakfast 4 Active azelastine (ASTELIN) 137 [...] Department Care Team Description 11/21/2024 1:50 PM PUBLIC POLICY ANALYST - 11/21/2024 11:59 PM PUBLIC POLICY ANALYST Hospital Encounter [facility] [address] [place] [address] Discharge Disposition: Discharge to home or self care 11/21/2024 1:20 PM PUBLIC POLICY ANALYST Office Visit [facility] Rheumatology [address] [facility] 2nd Floor [address] [place] [phone] Marialuisa Franklin NP Rheumatoid arthritis with negative rheumatoid factor, involving unspecified site (HCC) (Primary Dx); High risk medication use 11/15/2024 10:40 AM PUBLIC POLICY ANALYST - 11/15/2024 11:59 PM PUBLIC POLICY ANALYST Hospital Encounter [facility] [address] [place] [address] High risk medication use Discharge Disposition: Discharge to home or self care 11/15/2024 10:30 AM PUBLIC POLICY ANALYST Infusion [facility] Infusion Therapy [address] [facility] 2nd Floor [address] [place] [phone] Rheumatoid arthritis with negative rheumatoid factor, involving [...] on file Legal Sex Female 10:45 PM PUBLIC POLICY ANALYST Gender Identity Not on file Sexual Orientation Not on file Obstetrics History Last Filed Vital Signs Vital Sign Reading Time Taken Comments Blood Pressure 93/58 11/21/2024 1:01 PM PUBLIC POLICY ANALYST Pulse 63 11/21/2024 1:01 PM PUBLIC POLICY ANALYST Temperature 36.6 C (97.8 F) 11/21/2024 1:01 PM PUBLIC POLICY ANALYST Respiratory Rate - - Oxygen Saturation 99% 11/21/2024 1:01 PM PUBLIC POLICY ANALYST Inhaled Oxygen Concentration - - Weight 68 kg (150 lb) 11/21/2024 1:01 PM PUBLIC POLICY ANALYST Height 167.6 cm (5' 5.98 ) 11/21/2024 1:01 PM CS T Body Mass Index 24.22 11/21/2024 1:01 PM PUBLIC POLICY ANALYST Plan of Treatment Health Maintenance Due Date Last Done Comments Breast Cancer Screening-Mammogram 1955 Colon Cancer Screening-Colonoscopy 1955 Depression Screening 1955 Fall Risk Assessment 1955 Well Visit 65+ 2020 Covid-19 Vaccine (4 2023-2 5 season) 2024 01/18/2022, 08/06/2021, 12/18/2020 Influenza Vaccine (Season Ended) 2025 09/29/2023, 07/03/2022, 10/08/2021, Additional history exists Osteoporosis Screening-Bone [...] Read Routine (OP Routine) 11/21/2024 2:04 PM PUBLIC POLICY ANALYST Rheumatoid arthritis with negative rheumatoid factor, involving unspecified site (HCC) XR HAND LEFT 3 OR MORE VIEWS Schedule Routine, Read Routine (OP Routine) 11/21/2024 2:04 PM PUBLIC POLICY ANALYST Rheumatoid arthritis with negative rheumatoid factor, involving unspecified site (HCC) XR WRIST RIGHT 3 OR MORE VIEWS Schedule Routine, Read Routine (OP Routine) 11/21/2024 2:04 PM PUBLIC POLICY ANALYST Rheumatoid arthritis with negative rheumatoid factor, involving unspecified site (HCC) XR WRIST LEFT 3 OR MORE VIEWS Schedule Routine, Read Routine (OP Routine) 11/21/2024 2:04 PM PUBLIC POLICY ANALYST Rheumatoid arthritis with negative rheumatoid factor, involving unspecified site (HCC) EGFR Routine 11/15/2024 1:46 PM PUBLIC POLICY ANALYST High risk medication use DIFFERENTIAL AUTO Routine 11/15/2024 1:4 6 PM PUBLIC POLICY ANALYST High risk medication use COMPREHENSIVE METABOLIC PANEL Routine 11/15/2024 1:46 PM PUBLIC POLICY ANALYST High risk medication use CBC WITH AUTO DIFFERENTIAL Routine 11/15/2024 1:46 PM PUBLIC POLICY ANALYST High risk medication use TB TEST, QUANTIFERON GOLD Routine 11/07/2024 3:55 PM PUBLIC POLICY ANALYST High risk medication use DEXA AXIAL SKELETON [...] 3 or More Views (11/21/2024 2:04 PM PUBLIC POLICY ANALYST) Anatomical Region Laterality Modality Upper Extremities, Hand Right Computed Radiography 11/21/2024 2:23 PM PUBLIC POLICY ANALYST Addenda Addendum by Pipe Valdivia MD on 11/22/2024 12:50 PM PUBLIC POLICY ANALYST ADDENDUM: Progressive polyarticular erosions involving the bilateral hands and wrists, most prominent in the carpus bilaterally. This is consistent with progressive inflammatory arthritis in this patient with known rheumatoid arthritis. Electronically signed by: Pipe Valdivia MD Impressions 11/21/2024 2:23 PM PUBLIC POLICY ANALYST 1. Healing fracture of the left 4th metacarpal shaft with shortening and mild ulnar displacement. 2. Polyarticular erosions involving the bilateral hands and wrists, most prominent in the carpus bilaterally. This is consistent with inflammatory arthritis. Statistically, this is most likely due to rheumatoid arthritis. Electronically signed by: Pipe Valdivia MD Narrative 11/21/2024 2:23 PM PUBLIC POLICY ANALYST EXAMINATION: XR WRIST LEFT 3 OR MORE [...] 3 or More Views (11/21/2024 2:04 PM PUBLIC POLICY ANALYST) Anatomical Region Laterality Modality Upper Extremities, Hand Left Computed Radiography 11/21/2024 2:23 PM PUBLIC POLICY ANALYST Addenda Addendum by Pipe Valdivia MD on 11/22/2024 12:50 PM PUBLIC POLICY ANALYST ADDENDUM: Progressive polyarticular erosions involving the bilateral hands and wrists, most prominent in the carpus bilaterally. This is consistent with progressive inflammatory arthritis in this patient with known rheumatoid arthritis. Electronically signed by: Pipe Valdivia MD Impressions 11/21/2024 2:23 PM PUBLIC POLICY ANALYST 1. Healing fracture of the left 4th metacarpal shaft with shortening and mild ulnar displacement. 2. Polyarticular erosions involving the bilateral hands and wrists, most prominent in the carpus bilaterally. This is consistent with inflammatory arthritis. Statistically, this is most likely due to rheumatoid arthritis. Electronically signed by: Pipe Valdivia MD Narrative 11/21/2024 2:23 PM PUBLIC POLICY ANALYST EXAMINATION: XR WRIST LEFT 3 OR MORE [...] signed by: Pipe Valdivia MD Marialuisa Franklin [employer] [facility] IMG XR PROCEDURES Edited R esult - Final * XR Wrist Right 3 or More Views (11/21/2024 2:04 PM PUBLIC POLICY ANALYST) Anatomical Region Laterality Modality Upper Extremities, Wrist Right Compute d Radiography 11/21/2024 2:23 PM PUBLIC POLICY ANALYST Addenda Addendum by Pipe Valdivia MD on 11/22/2024 12:50 PM PUBLIC POLICY ANALYST ADDENDUM: Progressive polyarticular erosions involving the bilateral hands and wrists, most prominent in the carpus bilaterally. This is consistent with progressive inflammatory arthritis in this patient with known rheumatoid arthritis. Electronically signed by: Piep Valdivia MD Impressions 11/21/2024 2:23 PM PUBLIC POLICY ANALYST 1. Healing fracture of the left 4th metacarpal shaft with shortening and mild ulnar displacement. 2. Polyarticular erosions involving the bilateral hands and wrists, most prominent in the carpus bilaterally. This is consistent with inflammatory arthritis. Statistically, this is most likely due to rheumatoid arthritis. Electronically signed by: Pipe Valdivia MD Narrative 11/21/2024 2:23 PM PUBLIC POLICY ANALYST EXAMINATION: XR WRIST LEFT 3 OR MORE [...] signed by: Pipe Valdivia MD Marialuisa Franklin [employer] [facility] IMG XR PROCEDURES Edited R esult - Final * XR Wrist Left 3 or More Views (11/21/2024 2:04 PM PUBLIC POLICY ANALYST) Anatomical Region Laterality Modality Upper Extremities, Wrist Left Compute d Radiography 11/21/2024 2:23 PM PUBLIC POLICY ANALYST Addenda Addendum by Pipe Valdivia MD on 11/22/2024 12:50 PM PUBLIC POLICY ANALYST ADDENDUM: Progressive polyarticular erosions involving the bilateral hands and wrists, most prominent in the carpus bilaterally. This is consistent with progressive inflammatory arthritis in this patient with known rheumatoid arthritis. Electronically signed by: Pipe Valdivia MD Impressions 11/21/2024 2:23 PM PUBLIC POLICY ANALYST 1. Healing fracture of the left 4th metacarpal shaft with shortening and mild ulnar displacement. 2. Polyarticular erosions involving the bilateral hands and wrists, most prominent in the carpus bilaterally. This is consistent with inflammatory arthritis. Statistically, this is most likely due to rheumatoid arthritis. Electronically signed by: Pipe Valdivia MD Narrative 11/21/2024 2:23 PM PUBLIC POLICY ANALYST EXAMINATION: XR WRIST LEFT 3 OR MORE [...] - Final * eGFR (11/15/2024 1:46 PM PUBLIC POLICY ANALYST) eGFR 67 >=60 mL/min/1. 73 m2 Comment: [...] last reviewed 2021. Blood 11/15/2024 1:46 PM PUBLIC POLICY ANALYST 11/15/2024 2:48 PM PUBLIC POLICY ANALYST Marialuisa Franklin NP LAB BLOOD ORDERABLES Final Result [facility] [place] [address] * Differential, auto (11/15/2024 1:46 PM PUBLIC POLICY ANALYST) Neutrophil abs 3.2 1.5 - 6.5 K/cumm Imm gran abs 0.0 0.0 - 0.1 K/cumm [facility] Lymphocyte abs 1.1 0.8 - 3.3 K/cumm [facility] Monocyte abs 0.6 0.2 - 0.8 K/cumm [facility] Eosinophil abs 0.1 0.0 - 0.5 K/cumm [facility] Basophil abs 0.1 0.0 - 0.1 K/cumm [facility] Neutrophil pct 63.6 % [facility] Comment: Interpretive Data Percent cell count reference ranges are not reported, since discordance with absolute values may lead to misinterpretation of CBC data. Current Interpretive Data was last revised on 2018. Imm gran pct 0.4 % [facility] Comment: Interpretive Data Percent cell count reference ranges are not reported, since discordance with absolute values may lead to misinterpretation of CBC data. Current Interpretive Data was last revised on 2018. Lymphocyte pct 21.4 % [facility] Comment: Interpretive Data Percent cell count reference ranges are not reported, since discordance with absolute values may lead to misinterpretation of CBC data. Current Interpretive Data was last revised on 2018. Monocyte pct 11.4 % [facility] Comment: Interpretive Data Percent cell count reference ranges are not reported, since discordance with absolute values may lead to misinterpretation of CBC data. Current Interpretive Data was last revised on 2018. Eosinophil pct 2.0 % [facility] Comment: Interpretive Data Percent cell count reference ranges are not reported, since discordance with absolute values may lead to misinterpretation of CBC data. Current Interpretive Data was last revised on 2018. Basophil pct 1.2 % [facility] Comment: Interpretive Data Percent cell count reference ranges are not reported, since discordance with absolute values may lead to misinterpretation of CBC data. Current Interpretive Data was last revised on 2018. Blood 11/15/2024 1:46 PM PUBLIC POLICY ANALYST 11/15/2024 1:59 PM PUBLIC POLICY ANALYST Marialuisa Franklin [employer] [facility] LAB BLOOD ORDERABLES Final Result Performing Organization Address City/[facility]/ZIP Co de Phone Number [facility] [place] [address] * CBC with auto differential (11/15/2024 1:46 PM PUBLIC POLICY ANALYST) WBC 5.0 3.8 - 9.9 K/cumm Hgb 13.7 11.9 - 15.5 g/dL [facility] Hct 41.1 35.6 - 45.5 % [facility] Plt 256 150 - 400 K/cumm [facility] MPV 11.0 9.1 - 12.3 fL [facility] RBC 4.32 3.90 - 5.20 M/cumm [facility] MCV 95.1 81.3 - 96.4 fL [facility] MCH 31.7 27.1 - 33.3 pg [facility] MCHC 33.3 32.3 - 35.7 g/dL [facility] RDW CV 13.3 11.1 - 14.9 % [facility] RDW SD 47.1 35.7 - 48.1 fL [facility] NRBC abs 0.00 0.00 - 0.01 K/cumm [facility] Blood 11/15/2024 1:46 PM PUBLIC POLICY ANALYST 11/15/2024 1:59 PM PUBLIC POLICY ANALYST us Marialuisa Franklin [employer] [facility] LAB BLOOD ORDERABLES Final Result Performing Organization Address City/[facility]/ZIP Co de Phone Number [facility] [place] [address] * Comprehensive metabolic panel (11/15/2024 1:46 PM PUBLIC POLICY ANALYST) Sodium 139 135 - 145 mmol/L Potassium, pl 4.5 3.3 - 4.9 mmol/L [facility] Chloride 103 97 - 110 mmol/L [facility] CO2 26 22 - 32 mmol/L [facility] Anion gap 10 2 - 15 mmol/L [facility] BUN 15 6 - 25 mg/dL [facility] Creatinine 0.92 0.60 - 1.10 mg/dL [facility] Glucose 105 70 - 199 mg/dL [facility] Comment: Interpretive Data Fasting glucose >/= 126 [...] 2022. Calcium 9.5 8.5 - 10.3 mg/dL [facility] Bilirubin, total 0.3 0.1 - 1.2 mg/dL [facility] Protein, pl 7.1 6.5 - 8.5 g/dL [facility] Albumin 4.3 3.5 - 5.0 g/dL [facility] Alk phos 121 40 - 130 Units/L [facility] ALT 19 7 - 45 Units/L [facility] AST 22 10 - 45 Units/L [facility] Blood 11/15/2024 1:46 PM PUBLIC POLICY ANALYST 11/15/2024 2:48 PM PUBLIC POLICY ANALYST Marialuisa Franklin [employer] [facility] LAB BLOOD ORDERABLES Final Result [facility] Department [place] [address] * TB test, quantiferon gold (11/07/2024 3:55 PM PUBLIC POLICY ANALYST) [facility] QuantiFERON(R)-T B Gold Plus, 1 Tube NEGATIVE [...] T-lymphocytes. For additional information, please refer to https://education.[employer]/faq/ERD947 (This link is being provided for informational/ educational purposes only.) Blood 11/07/2024 3:55 PM PUBLIC POLICY ANALYST 11/07/2024 3:56 PM PUBLIC POLICY ANALYST Marialuisa Franklin NP LAB BLOOD ORDERABLES Final Result [facility] [address] [place] [address] * Dexa Axial Skeleton Bone Density 1 or 2 Site (03/08/2024 9:24 AM CDT) Anatomical Region Laterality Modality Body N/A Radiographic Erna ging Narrative 03/08/2024 9:48 PM CDT Patient Name: Sheri Shin Date of : 1955 Date of scan: 03/08/2024 Bone mineral density was performed on a Holob-datum Discovery Densitometer. Based on machine cross-calibration and [...] by the International Society of Clinical Densitometry. [id number] Marialuisa Franklin NP IMG DXA PROCEDURES Final R esult * Hepatitis panel, acute (05/24/2020 9:45 AM CDT) Hep A IgM Nonreactive Nonreactive [facility] Comment: Interpretive Data: If Hep A IgM Ab is reported as Equivocal, a new sample should be drawn in two weeks for testing. Current interpretive data was last revised on 19. Hep B core IgM Nonreactive Nonreactive [facility] Comment: Interpretive Data If HepB Core IgM Ab is reported as Equivocal, a new sample should be drawn in two weeks for testing. Current interpretive data was last revised on 19. Hep C Ab Nonreactive Nonreactive [facility] Comment:Antibodies to HCV no t detected. Does NOT exclude the possibility of recent exposure to HCV. HepBsAg Nonreactive Nonreactive [facility] Blood specimen (specimen) 05/24/2020 9:45 AM CDT 05/24/2020 12:08 PM CDT Marialuisa Franklin NP LAB MICROBIOLOGY - GENERAL ORDERABLES Edited Result - Final [facility] [place] [address] from Last 3 Months or Most Recently Relevant to Health Maintenance Insurance [facility] MEDIC[facility] [employer] Address: [address] [address] [place] [address] [facility] MEDICARE MEDICARE [facility] MEDICARE [facility] Address: [address] [address] [place] [address] Care Teams Environmental Permitting Specialist Relationship Specialty Start Date End Date Kerry Coffman DO [address] [place] [address] PCP - General Internal Medicine 04/19/24
== END 2025-01-30 15:32 | disposition home or self-care (01) ==
PROVIDERS: Visit Provider Physician Assistant Surgical
DX: S52.502A Unspecified fracture of the lower end of left radius, initial encounter for closed fracture (principal); S62.325A Displaced fracture of shaft of fourth metacarpal bone, left hand, initial encounter for closed fracture; S62.395D Other fracture of fourth metacarpal bone, left hand, subsequent encounter for fracture with routine healing; S52.592D Other fractures of lower end of left radius, subsequent encounter for closed fracture with routine healing; S52.612D Displaced fracture of left ulna styloid process, subsequent encounter for closed fracture with routine healing; Z96.7 Presence of other bone and tendon implants
CPT/HCPCS: 73130

== ENCOUNTER 2025-02-02 14:00 | Emergency (ER) | payer MEDICARE, SELFPAY ==
--- NOTE | ~2025-02-02 | XR_ITS ---
EXAMINATION: XR hand LT min 3V DATE: 02/02/2025 14:49 INDICATION: Left hand and wrist pain post fall TECHNIQUE: Posteroanterior, oblique and lateral views of the left hand were obtained. COMPARISON: None. FINDINGS: Again seen are subacute fractures of the distal left radius, ulna and fourth metacarpal. The fourth m etacarpal fracture is healing with solidly bridging callus formation and one cortical width dorsal/ul shaila displacement and mild overriding resulting in slight shortening of the metacarpal. There is still discernible lucency along the fracture plane. The distal radial fracture extends transversely across the metaphyseal finally there is region. The fracture is dorsally impacted with mild comminution remi ng the dorsal cortex and 25 degree dorsal tilt of the distal articular surface. There is sclerosis al ariana the fracture plane along with some peripheral calcination which is not definitively bridging. Fin ally there is unchanged 2 mm distraction of an ununited fracture across the base of the ulnar styloid process without evident productive changes of healing yet apparent. No new fractures identified. Jose yarticular osteoarthritis, moderate severity at the first carpometacarpal and multiple interphalangea l joints. Mild osteoarthritis at the wrist, midcarpal, triscaphe and many of the metacarpophalangeal and remaining interphalangeal joints. There is soft tissue swelling about the hand, wrist and distal forearm most prominent dorsal to the carpus. IMPRESSION: 1. No acute osseous abnormality. 2. Relatively advanced healing of a minimally displaced fracture of the left fourth metacarpal. 3. Less advanced healing of a dorsally impacted mildly comminuted extra articular fracture of the dis rehan left radius which is healed with 25 degrees dorsal tilt of the distal articular surface. 4. No evident changes of healing evident ununited minimally distracted ulnar styloid avulsion fractur e. 5. 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 Reviewed, dictated and finalized at location A. IMPRESSION: 1. No acute osseous abnormality. 2. Relatively advanced healing of a minimally displaced fracture of the left fo urth metacarpal. 3. Less advanced healing of a dorsally impacted mildly comminuted extra articul ar fracture of the distal left radius which is healed with 25 degrees dorsal ti lt of the distal articular surface. 4. No evident changes of healing evident ununited minimally distracted ulnar st yloid avulsion fracture. 5. 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
[2025-02-02 14:15] VITALS: BP 95/58; PULSE 71; RESP 12; TEMP 37.1; O2SAT 98
--- NOTE | 2025-02-02 14:44 | ED.UPPEXIN ---
HPI - Extremity Injury (Upper) General Chief Complaint: Extremity Injury, Upper Stated Complaint: Left Wrist/Hand Pain Source: patient and RN notes reviewed Mode of arrival: ambulatory Limitations: no limitations History of Present Illness HPI narrative: 69-year-old female presents Express Care complaining of a fall 2 days ago. Patient states she was reaching for a book with her left arm when she lost her balance and fell backwards striking her left hand on a table and then falling onto her left arm. She denies hitting her head, dizziness, lightheadedness, or any loss of consciousness. She Denies any head, neck, or back pain. She recently had a fracture to her left hand and left wrist and had a recent orthopedic surgery to her left hand. She is currently wearing a thumb spica splint to the left arm. She says she is having left hand pain and left wrist pain. She is worried she has fractured her left arm again. She denies any numbness or tingling. She denies any shoulder pain, hip pain, or any other injuries. She has been doing rice therapy along with Tylenol and is helped with her pain. Patient has a history of rheumatoid arthritis and tremors. Patient says she walks at home with a cane and has somewhat around the house to help her with her ADLs. Patient is waiting to get into physical therapy their PCP because of her problem with falling. Related Data Home Medications ?Medication ?Instructions ?Recorded ?Confirmed ?Last Taken ?Type atorvastatin 20 mg tablet 1 mg PO DAILY 05/01/21 02/02/25 Unknown History gabapentin 100 mg capsule 200 mg PO Q12H 05/01/21 02/02/25 12/21/24 History lamotrigine 200 mg tablet 1 mg PO BID 05/01/21 02/02/25 12/21/24 History propranolol 120 mg capsule,24 1 mg PO DAILY 05/01/21 02/02/25 12/21/24 History hr,extended release sertraline 100 mg tablet 1 mg PO BID 05/01/21 02/02/25 12/21/24 History clonazepam 0.5 mg tablet 0.25 mg PO Q12H 12/08/21 02/02/25 12/21/24 History loratadine 10 mg tablet 10 mg PO DAILY 12/08/21 02/02/25 Unknown History sumatriptan succinate 100 mg tablet 100 mg PO DAILY 12/08/21 02/02/25 Unknown History calcium 300 mg-D3 20 mcg-magnesium 1 tablet PO DAILY 02/03/23 02/02/25 Unknown History 25 mg-coppr 0.5 yi-rfrg-qvaz tablet (Caltrate-D3 Plus Minerals) cyclobenzaprine 10 mg tablet 10 mg PO .pm PRN Pain, Moderate 02/03/23 02/02/25 Unknown History omeprazole 20 mg capsule,delayed 20 mg PO DAILY 02/03/23 02/02/25 Unknown History release azathioprine 50 mg tablet 25 mg PO DAILY 04/18/24 02/02/25 Unknown History alendronate 70 mg tablet 70 mg PO WEEKLY 07/21/24 02/02/25 Unknown History fluticasone propionate 50 2 spray intranasal DAILY 07/21/24 02/02/25 Unknown History mcg/actuation nasal spray,suspension azelastine 137 mcg (0.1 %) nasal 1 spray intranasal .PM 12/20/24 02/02/25 Unknown History spray hydroxychloroquine 200 mg tablet 200 mg PO HS 12/20/24 02/02/25 Unknown History latanoprost 0.005 % eye drops 1 drp EACH EYE QPM 12/20/24 02/02/25 Unknown History primidone 250 mg tablet 250 mg PO Q12H 12/20/24 02/02/25 Unknown History donepezil 10 mg tablet 10 mg PO DAILY 02/02/25 02/02/25 Unknown History galcanezumab-gnlm 120 mg/mL 120 mg subcut MONTHLY 02/02/25 02/02/25 Unknown History subcutaneous pen injector (Emgality Pen) Allergies Allergy/AdvReac Type Severity Reaction Status Date / Time Penicillins Allergy Severe Swelling Verified 02/02/25 14:11 Sulfa (Sulfonamide Allergy Intermediate Rash Verified 02/02/25 14:11 Antibiotics) Review of Systems Review of Systems: CONSTITUTIONAL: Denies fever, chills, or sweats. EYES: Denies visual changes, redness, or discharge. ENT: Denies rhinorrhea, congestion, sore throat, or otalgia. CARDIOVASCULAR: Denies chest pain, palpitations, syncope, lightheadedness, dizziness or edema. RESPIRATORY: Denies cough or dyspnea. GASTROINTESTINAL: Denies abdominal pain, nausea, vomiting, or diarrhea. GENITOURINARY: Denies dysuria or hematuria. SKIN: Denies rash or itching. MUSCULOSKELETAL: Denies back pain, joint pain, hip pain, or myalgia. Left hand and wrist pain. NEUROLOGIC: Denies headache, numbness, or weakness. PSYCHIATRIC: Denies anxiety or depression. All other systems reviewed are negative, except as documented in HPI. [facility] Past Medical History Medical History Restless leg syndrome Rheumatoid arthritis Arthritis Osteoporosis History of UTI Constipation Diarrhea High cholesterol History of falling Memory loss Chronic headaches Rib fracture Hx of migraines Diabetes Bipolar disorder Depression Anxiety Menopause History of alcohol abuse Sober for 9 years Bipolar depression Tremor hands HLD (hyperlipidemia) Surgical History Surgical History History of tonsillectomy History of hand surgery Left History of foot surgery Right x2 Family History Family History Father , Data 97 related to pneumonia Alzheimers disease Mother , Related to fall, Heart disease Unknown Hypertension Heart disease Diabetes mellitus High cholesterol Depression Arthritis Alcoholism Social History Social History Smoking packs per day: 2 Smoking cigarettes per day: 40.0 Years smoked: 24 Smoking pack-years: 48.00 Smoking status: Former smoker Tobacco type: cigarettes Second hand tobacco smoke exposure: No Smoking end date: 10/12/96 Additional smoking assessment comments: Denies Alcohol intake: former Alcohol use details: Quit 14 yrs ago Substance use: never Lack of Transportation: No Lack of Food: Never True Current Housing: I Have Housing Concerned About Future Housing: No Difficulty Paying Gas/Electric Bills: No Difficulty Paying for Meds: No Currently Unemployed: No Education: Master's Degree or Higher Difficulty w/ Childcare or Family Care: No Living arrangements: with family Additional living arrangements comments: Roommate Additional occupation/education comments: Disable Gender identity (if verbalized by the patient): Female Sexual Orientation (if Verbalized by the Patient): Straight or Heterosexual Spiritual care concerns: No Comments At the time of my signature, I reviewed and agree with the nursing past medical, surgical, social, and family history. There is no relevant family history pertinent to the patient complaint. Exam Narrative: GENERAL: This is a well-nourished, well-developed adult, in no apparent distress. They are non ill-appearing, nontoxic appearing. Patient patient walks with a cane. HEAD: normocephalic, atraumatic. EYES: Sclera clear/white. Conjunctiva normal. Vision is grossly intact. Extraocular movements intact. Pupils PERRLA. No nystagmus present. EARS: External ears normal, Hearing grossly intact. NOSE: External nose normal THROAT: Mucous membranes moist NECK: Neck supple, non-tender without lymphadenopathy, masses or thyromegaly. No cervical point tenderness, crepitus, or step-offs. CARDIOVASCULAR: Regular rate and rhythm RESPIRATORY: Respiratory rate normal, respiratory effort nonlabored, no respiratory distress GASTROINTESTINAL: Abdomen soft, non-tender, nondistended. Bowel sounds are active. No hepato-splenomegaly, or palpable masses. No guarding. SKIN: warm, Dry, intact with no suspicious lesions or rash, good texture and turgor. NEURO: awake, alert, and oriented to person, place and time. There were no obvious focal neurologic abnormalities. EXTREMITIES: Left hand/wrist: There is swelling to the patient's left hand. No obvious deformity, injury, bruising, or redness to the left hand. Patient is wearing a thumb spica splint. Patient is able to make a fist, stop sign, and okay sign. Normal sensation. No tenderness to palpation of the left hand. There is tenderness to palpation around the lateral side of the wrist, no obvious deformity, swelling, injury of the wrist. Capillary refills less than 2 seconds. Neurovascular status is intact distal to injury. Radial 2+ and palpable. Unable to extend and flex wrist due to splint in place. Normal pronation and supination. BACK: Nontender without deformity. No thoracic or lumbar point tenderness, crepitus or step-offs. Course Course Emergency Course: Patient is aware of diagnosis, understands and agrees to treatment plan. Anticipatory guidance given. Patient agrees to follow-up as directed and is aware of reasons to seek care at the emergency department. Portions of this record may have been created with voice recognition software Level of Care: Express Care Visit Vital Signs Vital signs: Vital Signs Temperature 98.8 F 02/02/25 14:15 Pulse Rate 71 02/02/25 14:15 Respiratory Rate 12 02/02/25 14:15 Blood Pressure 95/58 L 02/02/25 14:15 Pulse Oximetry 98 02/02/25 14:15 Oxygen Delivery Room Air 02/02/25 14:15 Temperature 98.8 F 02/02/25 14:15 Pulse Rate 71 02/02/25 14:15 Respiratory Rate 12 02/02/25 14:15 Blood Pressure 95/58 L 02/02/25 14:15 Pulse Oximetry 98 02/02/25 14:15 Oxygen Delivery Room Air 02/02/25 14:15 Reviewed MDM - Extremity Injury (Upper) MDM Narrative Medical decision making narrative: X-ray revealed old healing fractures patient's left hand and wrist. No acute findings. Patient to continue wearing their thumb spica splint to the left arm. Patient to follow-up with orthopedist for further evaluation. Patient is steady with a cane with standby assistance which is her baseline she states. Patient has remains that have agreed to help her around the house to prevent her from falling at home. PCP is aware patient's recent falls and they are working on getting patient into physical therapy. Fall prevention education was discussed. Discussed physical exam findings. Advised supportive measures and signs/symptoms to go to the ER. Pt is appropriate for outpt treatment and f/u. Differential Diagnosis Differential diagnosis: Likely sprain and strain of wrist, fracture of wrist and fracture of hand Imaging Data Radiologist's impression: ITS Impressions Hand X-Ray 02/02/25 15:01 IMPRESSION: 1. No acute osseous abnormality. 2. Relatively advanced healing of a minimally displaced fracture of the left fourth metacarpal. 3. Less advanced healing of a dorsally impacted mildly comminuted extra articular fracture of the distal left radius which is healed with 25 degrees dorsal tilt of the distal articular surface. 4. No evident changes of healing evident ununited minimally distracted ulnar styloid avulsion fracture. 5. 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 Critical Care Time Critical Care Time Critical Care Time: No Discharge Plan Discharge Clinical Impression: Fall Qualifiers: Encounter type: initial encounter Qualified Code(s): W19.XXXA - Unspecified fall, initial encounter Injury of wrist Qualifiers: Encounter type: initial encounter Laterality: left Qualified Code(s): S69.92XA - Unspecified injury of left wrist, hand and finger(s), initial encounter Patient Disposition: Home Condition: Stable Instructions: Fall Prevention for Older Adults (ED), P.R.I.C.E. Treatment (ED) Additional Instructions: Your x-ray shows your previous fractures are unchanged. No new acute findings. Follow-up with the orthopedist for further evaluation and management of your previous fractures. Rest and elevate the arm; Apply ice 15-20 minute intervals several times a day Continue to wear your thumb spica splint. Motrin 600mg -800mg every 8 hours, alternate with Tylenol 1000mg every 8 hours as needed Follow-up with primary care provider in 1-2 weeks. If you fall again, or have any other concerns please go to the ER immediately. Patient Language: Taiwanese Prescriptions: No Action azathioprine 50 mg tablet 25 mg PO DAILY alendronate 70 mg tablet 70 mg PO WEEKLY Patient Comments: Take on saturdays fluticasone propionate 50 mcg/actuation spray,suspension 2 spray INTRANASAL DAILY Patient Comments: HS donepezil 10 mg tablet 10 mg PO DAILY Emgality Pen 120 mg/mL pen injector 120 mg SUBCUT MONTHLY atorvastatin 20 mg tablet 1 mg PO DAILY Patient Comments: HS lamotrigine 200 mg tablet 1 mg PO BID sertraline 100 mg tablet 1 mg PO BID gabapentin 100 mg capsule 200 mg PO Q12H propranolol 120 mg capsule,extended release 24 hr 1 mg PO DAILY sumatriptan succinate 100 mg tablet 100 mg PO DAILY loratadine 10 mg tablet 10 mg PO DAILY clonazepam 0.5 mg tablet 0.25 mg PO Q12H Caltrate-D3 Plus Minerals 300 mg-800 unit -25 mg-0.5 mg tablet 1 tablet PO DAILY cyclobenzaprine 10 mg tablet 10 mg PO .pm PRN (Reason: Pain, Moderate) omeprazole 20 mg capsule,delayed release(DR/EC) 20 mg PO DAILY azelastine 137 mcg (0.1 %) spray,non-aerosol 1 spray INTRANASAL .PM hydroxychloroquine 200 mg tablet 200 mg PO HS Patient Comments: HS latanoprost 0.005 % drops 1 drp EACH EYE QPM primidone 250 mg tablet 250 mg PO Q12H Follow-up/Referrals: Kerry Coffman [Other] Time of Disposition: 15:20
== END 2025-02-02 15:29 | disposition home or self-care (01) ==
DX: S69.92XA Unspecified injury of left wrist, hand and finger(s), initial encounter (principal); W19.XXXA Unspecified fall, initial encounter; E11.9 Type 2 diabetes mellitus without complications; G25.81 Restless legs syndrome; M06.9 Rheumatoid arthritis, unspecified; M19.90 Unspecified osteoarthritis, unspecified site; M81.0 Age-related osteoporosis without current pathological fracture; E78.00 Pure hypercholesterolemia, unspecified; E78.5 Hyperlipidemia, unspecified; F41.9 Anxiety disorder, unspecified; F32.A Depression, unspecified; Z87.891 Personal history of nicotine dependence
CPT/HCPCS: 73130; 99213; G0463

== ENCOUNTER 2025-02-12 10:07 | Outpatient (CLI) | payer MEDICARE, SELFPAY ==
--- NOTE | ~2025-02-12 | CT_ITS ---
Procedure: CT wrist LT wo con Ordering provider: Corry Ellsworth PA-C History: . S52.502A - Unspecified fracture of the lower end of left ... . Comparison: None. Technique: Thin slice axial CT of the No IV contrast was given. Sagittal and coronal reformatted imag es were also obtained and reviewed. Radiation reduction technique utilized. The dose-length product w as 316.27 mGy-cm. Findings: BONES: fracture in the distal metaphysis of the left radius is noted with posterior angulation of 23 degrees. Nonunion should be considered. Follow-up advised.. Fracture of the ulnar styloid is also not ed. Cystic changes in all the carpal bones. Healing fracture in the fourth metacarpal bone. JOINT SPACES: Normal. SOFT TISSUES: Normal. IMPRESSION: Healing fracture in the distal left radius. Nonunion should be considered. Follow-up advised. Healing fracture in the fourth metacarpal bone. Cystic changes in the carpal bones suggestive of osteoarthritic changes. Rheumatoid arthritis should be considered. Reviewed, dictated and finalized at location A. IMPRESSION: Healing fracture in the distal left radius. Nonunion should be considered. Foll ow-up advised. Healing fracture in the fourth metacarpal bone. Cystic changes in the carpal bones suggestive of osteoarthritic changes. Rheuma toid arthritis should be considered.
--- OUTSIDE RECORDS SUMMARY | 2025-02-12 10:10 | XMS_ITS | Encounter Summary ---
Author Organization [facility] Address [address] [facility] [place] [address] Care Team Providers Care Bariatric Program Coordinator Name Role Phone MeghnaKerry Primary Care Provider [phone] Kerry Coffman DO Unavailable [phone] Encounter Details Date Type Department Care Team (Late st Contact Info) Description 02/10/2024 Telephone [facility] - Neurology [address] [place] [address] Hyacinth Arriaga, VENEER DRIER TAILER-FLEXOGRAPHIC PRESS SET UP OPERATOR [address] [place] [address] [place] [address] Social History Tobacco Use Types Packs/Day Years Used Date Smoking Tobacco: Never Assessed Comments No Sex and Gender Information Value Date Recorded Sex Assigned at Female 09/16/2024 2:41 PM TERRITORY SALES PROFESSIONAL Legal Sex Female 5:56 AM TERRITORY SALES PROFESSIONAL Gender Identity Female 09/16/2024 2:41 PM TERRITORY SALES PROFESSIONAL Sexual Orientation Straight 09/16/2024 2: 41 PM TERRITORY SALES PROFESSIONAL documented as of this encounter Functional Status [...] 6:35 PM CDT Ibeth Lopez, RN documented as of this encounter Mental [...] Care Team (Late st Contact Info) Description 03/02/2025 1:00 PM CDT Office Visit [facility] - Neurology [address] [place] [phone] Moncho Salcedo APRN-ARELY [address] [place] [address] [place] [address] 03/15/2025 10:30 AM CDT Office Visit [facility] - Orthopedics [address] [place] [phone] Cornelio Lima MD [address] [place] [address] 05/25/2025 1:15 PM CDT [facility] Ophthalmology [address] [place] [phone] Percy Matute MD [address] [place] [address] [place] [phone] 06/05/2025 8:30 AM CDT Office Visit [facility] - Internal Med [address] [place] [phone] Kerry Coffman DO [facility] [facility] 2L DIV [place] [address] 08/16/2025 3:00 PM TERRITORY SALES PROFESSIONAL Office Visit [facility] - Allergy [address] [place] [phone] Papito Morales MD [address] [place] [address] 2L DIV OF ALLERGY/[place] [address] documented as of this encounter Visit Diagnoses Not on filedocumented in this encounter Additional Health Concerns Infection Onset Date Last Indicated Resolved Time CDIFF Under Investigation 07/20/2024 07/20/2024 4:33 AM CDT CDIFF Under Investigation 10/26/2024 11/07/2024 4:33 AM TERRITORY SALES PROFESSIONAL CDIFF Under Investigation 11/07/2024 11/07/2024 5:38 PM TERRITORY SALES PROFESSIONAL documented as of this encounter Care Teams Bariatric Program Coordinator Relationship Specialty Start Date End Date Kerry Coffman DO [address] [facility] 2L DIV OF [facility] [place] [address] PCP - General Internal Medicine 12/15/23 Kerry Coffman DO [address] [facility] 2L DIV OF [facility] [place] [address] PCP - [facility] T[facility] P4P 12/10/24 documented as of this encounter
--- OUTSIDE RECORDS SUMMARY | 2025-02-12 10:10 | XMS_ITS | Clinical Summary ---
Author Organization [facility] Address [address] [place] [address] Phone Care Team Providers Care Rheologist Name Role Phone Joan [place] MD Primary [...] on file Legal Sex Female 10:36 AM CROP CONSULTANT Gender Identity Not on file Sexual Orientation Not on file Last Filed Vital Signs Vital Sign Reading Time Taken Comments Blood Pressure 125/81 10/21/2018 12:15 PM CROP CONSULTANT Pulse 72 10/21/2018 12:25 PM CROP CONSULTANT Temperature 36.3 C (97.3 F) 10/21/2018 11:32 AM CROP CONSULTANT Respiratory Rate 18 10/21/2018 12:25 PM CROP CONSULTANT Oxygen Saturation 99% 10/21/2018 12:25 PM CROP CONSULTANT Inhaled Oxygen Concentration - - Weight 60.3 kg (133 lb) 10/21/2018 11:32 AM CROP CONSULTANT Height 170.2 cm (5' 7 ) 10/21/2018 11:32 AM CROP CONSULTANT Body Mass Index 20.83 10/21/2018 11:32 AM CROP CONSULTANT Plan of Treatment Health Maintenance Due Date [...] age to complete this topic Insurance MEDICAID [employer] Care Teams Rheologist Relationship Specialty Start Date End Date Joan [place] MD [address] [place] [address] PCP - General Internal Medicine 10/21/18
--- OUTSIDE RECORDS SUMMARY | 2025-02-12 10:10 | XMS_ITS | Encounter Summary ---
Author Organization [facility] Address [address] [facility] [place] [address] Care Team Providers Care Grid Molder Name Role Phone Joan [place] MD Primary Care Provider AdelKerry reddy DO Primary Care Provider [phone] Kerry Coffman DO Unavailable [phone] Encounter Details Date Type Department Care Team (Late st Contact Info) Description 12/18/2021 Telephone [facility] [address] [place] [address] Rissa Vo MD Social History Tobacco Use Types Packs/Day Years Used Date Smoking Tobacco: Former Smokeless Tobacco: Never Alcohol Use Standard Drinks/Week Comments Never 0 (1 standard drink = 0.6 oz pur e alcohol) Comments Unknown Sex and Gender Information Value Date Recorded Sex Assigned at Female 09/16/2024 2:41 PM LIQUEFIER Legal Sex Female 5:56 AM LIQUEFIER Gender Identity Female 09/16/2024 2:41 PM LIQUEFIER Sexual Orientation Straight 09/16/2024 2: 41 PM LIQUEFIER COVID-19 Exposure Response Date Recorded In the last month, have you been in contact with someone who was confirmed or suspected to have Coronavirus / COVID-19? No / Unsure 12/19/2021 5:58 AM LIQUEFIER documented as of this encounter Patient Instructions * Patient Instructions* Donny Elliott - 12/18/2021 6:58 AM LIQUEFIER Pt was bumped from 03/17/2022 DBN appt. [facility] does not schedule for these appt types. Please reschedule from the bump list. EFIER documented in this encounter Plan of Treatment Upcoming Encounters Date Type Department Care Team (Late st Contact Info) Description 03/02/2025 1:00 PM CDT Office Visit [facility] - Neurology [address] [place] [phone] Moncho Salcedo, ENGINEERING SPECIALIST-MOTORCYCLE DELIVERY DRIVER [address] [place] [address] [address] [place] [address] 03/15/2025 10:30 AM CDT [facility] [address] [place] [phone] Cornelio Lima MD [address] [place] [address] 05/25/2025 1:15 PM CDT Office Visit [facility] - Ophthalmology [address] [place] [phone] Percy Matute MD [address] [place] [address] [place] [phone] 06/05/2025 8:30 AM CDT Office Visit [facility] - Internal Med [address] [place] [phone] Kerry Coffman DO [address] [place] [address] 2L DIV [place] [address] 08/16/2025 3:00 PM LIQUEFIER Office Visit [facility] - Allergy [address] [place] [phone] Papito Morales MD [address] [place] [address] 2L DIV OF ALLERGY/[place] [address] documented as of this encounter Visit Diagnoses Not on filedocumented in this encounter Additional Health Concerns Infection Onset Date Last Indicated Resolved Time CDIFF Under Investigation 07/20/2024 07/20/2024 4:33 AM CDT CDIFF Under Investigation 10/26/2024 11/07/2024 4:33 AM LIQUEFIER CDIFF Under Investigation 11/07/2024 11/07/2024 5:38 PM LIQUEFIER documented as of this encounter Care Teams Grid Molder Relationship Specialty Start Date End Date Joan [place] MD [address] [place], [place] [phone] PCP - General 02/14/19 12/14/23 Kerry Coffman DO [address] 2[address] DIV [place] [address] PCP - General Internal Medicine 12/15/23 Kerry Coffman DO [address] 2[address] DIV [place] [address] PCP - Attributed-[facility] P4P 12/10/24 documented as of this encounter
--- OUTSIDE RECORDS SUMMARY | 2025-02-12 10:11 | XMS_ITS | Encounter Summary ---
Author Organization [facility] Address [address] [place] [address] Care Team Providers Care Braid Cutter Name Role Phone Meghna Kerry FRANKS Primary Care Provider [phone] Kerry Coffman DO Unavailable [phone] Reason for Visit * Reason Onset Date Comments Appointment 10/20/2024 Encounter Details Date Type Department Care Team (Late st Contact Info) Description 10/20/2024 Telephone [facility] - Centralized Scheduling [address] [place] [phone] Moncho Salcedo, MINE MOTOR OPERATOR-INTERNAL MEDICINE HOSPITALIST [address] [phone] Appointment Social History Tobacco [...] Sex Assigned at Female 09/16/2024 2:41 PM SENIOR DESIGN ENGINEER Legal Sex Female 5:56 AM SENIOR DESIGN ENGINEER Gender Identity Female 09/16/2024 2:41 PM SENIOR DESIGN ENGINEER Sexual Orientation Straight 09/16/2024 2: 41 PM SENIOR DESIGN ENGINEER documented as of this encounter Functional [...] to schedule for a Short Procedure with COMMUNITY ACTION WORKER Denisse in November. OR DESIGN ENGINEER documented in this encounter Plan of Treatment Upcoming Encounters Date Type Department Care Team (Late st Contact Info) Description 03/02/2025 1:00 PM CDT Office Visit [facility] - Neurology [address] [place] [phone] Moncho Salcedo APRN-ARELY [address] [place] [address] [place] [phone] 03/15/2025 10:30 AM CDT Office Visit [facility] - Orthopedics [address] [place] [phone] Cornelio Lima MD [address] [place] [address] 05/25/2025 1:15 PM CDT Office Visit [facility] - Ophthalmology [address] [place] [address], [place] [phone] Percy Matute MD [address] [place] [address] [place] [phone] 06/05/2025 8:30 AM CDT Office Visit [facility] - Internal Med [address] [place] [phone] Kerry Coffman DO [address] [place] [address] 2L [place] [address] 08/16/2025 3:00 PM SENIOR DESIGN ENGINEER Office Visit [facility] - Allergy [address] [place] [phone] Papito Morales MD [address] [place] [address] 2L DIV OF ALLERGY/[place] [address] documented as of this encounter Goals Goal Patient Goal Type Associated Problems Recent Progress Patient-Stated? Author Medication Management General On track( 025 10:42 AM SENIOR DESIGN ENGINEER) Marion Scott, RN Note: Expected end date: ongoing Interventions: Take all medications as prescribed documented as of this encounter Visit Diagnoses Not on filedocumented in this encounter Additional Health Concerns Infection Onset Date Last Indicated Resolved Time CDIFF Under Investigation 10/26/2024 11/07/2024 4:33 AM SENIOR DESIGN ENGINEER CDIFF Under Investigation 11/07/2024 11/07/2024 5:38 PM SENIOR DESIGN ENGINEER documented as of this encounter Care Teams Braid Cutter Relationship Specialty Start Date End Date Kerry Coffman DO [address] [place] [address] [address] [place] [address] PCP - General Internal Medicine 12/15/23 Kerry Coffman DO [address] OF [facility] [place] [address] PCP - Attributed-[facility] T[facility] P4P 12/10/24 documented as of this encounter
--- OUTSIDE RECORDS SUMMARY | 2025-02-12 10:11 | XMS_ITS | Clinical Summary ---
Author Organization [facility] Address [address] [place] [address] Care Team Providers Care Manual Arts Therapist Name Role Phone Kerry Coffman DO Primary Care Provider [phone] Kerry Coffman DO Unavailable [phone] Source Comments [facility],non-owned Affiliates and Associated Physician Practices is amultiple site organization consisting of ambulatory clinics and hospital sitesin [place], [place], [place] and [place]. This disclosure is being madepursuant to the Care Everywhere program and may not contain all information available regarding this patient. Last updated 18.[facility] Allergies Active Allergy Reactions Criticality Noted Date [...] without long-term current use of insulin ([facility]) Use 1 Each 2 times daily 12/08/19 [...] tabletIndication s:Bipolar affective disorder, remission status unspecified ([facility]) Take 1 (one) tablet by mouth 2 [...] without long-term current use of insulin ([facility]) USE 1 STRIP TO CHECK GLUCOSE TWICE [...] Oral2 TIMES DAILY, Indications: Headache, Reported on 02/09/2025 ARIPiprazole (Abilify) 2 MG tablet Take 1 [...] rhinitis, unspecified seasonality, unspecified trigger,Chronic daily headache Dell 2 (two) sprays into each nostril once daily 16 g 6 08/11/20 24 Active azelastine (Astelin) 0.1 % nasal sprayIndications :Chronic rhinitis,Allergi c rhinitis, unspecified seasonality, unspecified trigger,Chronic daily headache Dell 1 (one) spray into each nostril 2 [...] Headache 20 capsule 5 11/02/19 25 Active magnesium citrate solution Drink at 5pm 2 nights before your colonoscopy 300 mL 11/04/19 25 Active bisacodyl EC (Dulcolax) 5 MG tablet Take 4 tablets orally at noon 2 days before your colonoscopy. Take 4 tablets orally at noon the day before your colonoscopy 8 tablet 11/04/19 25 Active cephalexin (Keflex) 500 MG capsule Take 1 (one) capsule by mouth every 12 hours 12/23/19 25 Active ipratropium (Atrovent) 0.03 % nasal spray Dell 1-2 sprays into each nostril 3 times daily as needed 30 mL 5 02/10/20 25 Active polyethylene glycol 3350 (Miralax) 17 GM/SCOOP powder Take a dose twice a day starting a week before your colonoscopy 238 g 11/04/19 25 025 Discontin ued(List Clean-Up) memantine (Namenda) 10 MG tabletIndication s:Cognitive decline Take 1 (one) tablet by mouth at bedtime 30 tablet 11 12/14/19 25 025 Discontin ued(List Clean-Up) Active Problems Problem Noted Date Diagnosed Date [...] Encounters Date Type Department Care Team Description 02/09/2025 4:00 PM CDT Office Visit [facility] - Allergy [address] [place] [phone] Percy Matute MD Dykewicz, Mark, MD Nonallergic vasomotor rhinitis (Primary Dx); Diarrhea, unspecified type; Lactose intolerance; Food intolerance; Anosmia; History of penicillin allergy; Drug allergy; Itching; Xerosis cutis 02/09/2025 1:50 PM CDT - 02/09/2025 11:59 PM CDT Hospital Encounter [facility] DIAGNOSTIC RAD OP [address] [place] [address] Percy Matute MD Discharge Disposition: Home or Self Care 02/09/2025 1:15 PM CDT - 02/09/2025 1:49 PM CDT Hospital Encounter [facility] LAB OP DRAW STATION [address] [place] [address] Discharge Disposition: Home or Self Care 02/09/2025 11:40 AM CDT Clinical Support [facility] - Ophthalmology [address] [place] [phone] Percy Matute MD Primary open angle glaucoma (POAG) of left eye, mild stage 02/09/2025 11:35 AM CDT Clinical Support [facility] - Ophthalmology [address] [place] [phone] Percy Matute MD Primary open angle glaucoma (POAG) of left eye, mild stage 02/09/2025 11:15 AM CDT Office Visit [facility] - Ophthalmology [address] [place] [phone] Percy Matute MD Optic nerve atrophy (Primary Dx); Primary open angle glaucoma (POAG) of left eye, mild stage 02/09/2025 Travel 02/07/2025 9:30 AM CDT - 02/07/2025 11:59 PM CDT Hospital Encounter [facility] EEG/EMG [address] [place] [address] Christina Tai DO Discharge Disposition: Home or Self Care 02/07/2025 Travel 02/01/2025 10:54 AM CDT - 02/01/2025 11:59 PM CDT Hospital Encounter [facility] DIAGNOSTIC RAD CSM [address] [facility] [place] [address] Cornelio Lima MD Discharge Disposition: Home or Self Care 02/01/2025 10:54 AM CDT - 02/01/2025 11:59 PM CDT Hospital Encounter [facility] DIAGNOSTIC RAD CSM [address] [facility] [place] [address] Cornelio Lima MD Discharge Disposition: Home or Self Care 02/01/2025 10:30 AM CDT Office Visit [facility] - Orthopedics [address] [place] [phone] Cornelio Lima MD Degenerative scoliosis in adult patient (Primary Dx); Spondylolisthesis of lumbar region; Cervical spondylosis with myelopathy 02/01/2025 Travel 01/17/2025 Telephone [facility] - Neurology [address] [place] [phone] Moncho Salcedo APRN-DIRECTOR PLANS Appointment 01/10/2025 Refill [facility] - Neurology [address] [place] [phone] Moncho Salcedo BRANDING MACHINE TENDER-DIRECTOR PLANS MEDICATION REFILL 01/05/2025 Telephone [facility] Neurology [address] [place] [phone] Moncho Salcedo BRANDING MACHINE TENDER-DIRECTOR PLANS Medication Clarification 01/05/2025 Travel 12/23/2024 12:26 PM CDT - 12/23/2024 2:22 PM CDT Emergency [facility] EMERGENCY DEPARTMENT [address] [place] [address] Cornelio Richardson MD Ground-level fall (Primary Dx); Acute pain of left shoulder; Left hip pain Discharge Disposition: Home or Self Care 12/23/2024 Travel 12/19/2024 Telephone [facility] - Endocrinology [address] [place] [phone] Haydee Simmons, RN Results 12/13/2024 Orders Only [facility] Neurology [address] [place] [phone] Moncho Salcedo APRN-DIRECTOR PLANS Cognitive decline 12/08/2024 9:17 AM FUR DRESSER - 12/08/2024 11:59 PM FUR DRESSER Hospital Encounter [facility] CAT SCAN [address] [place] [address] Cornelio Lima MD Discharge Disposition: Home or Self Care 12/08/2024 9:17 AM FUR DRESSER - 12/08/2024 11:59 PM FUR DRESSER Hospital Encounter H CAT SCAN [address] [place] [address] Cornelio Lima MD Discharge Disposition: Home or Self Care 12/08/2024 7:08 AM FUR DRESSER - 12/08/2024 9:16 AM FUR DRESSER Hospital Encounter [facility] DIAGNOSTIC RAD [address] [place] [address] Cornelio Lima MD Discharge Disposition: Home or Self Care 12/08/2024 Travel 11/28/2024 Telephone [facility] - Neurology [address] [place] [phone] Moncho Salcedo APRN-DIRECTOR PLANS Medication Prior Auth Request (Emgality) 11/23/2024 10:58 AM FUR DRESSER - 11/23/2024 11:59 PM FUR DRESSER Hospital Encounter [facility] DIAGNOSTIC RAD CSM [address] [place] [address] Cornelio Lima MD Discharge Disposition: Home or Self Care 11/23/2024 10:58 AM FUR DRESSER - 11/23/2024 11:59 PM FUR DRESSER Hospital Encounter [facility] DIAGNOSTIC RAD CSM [address] [facility] [place] [address] Cornelio Lima MD Discharge Disposition: Home or Self Care 11/23/2024 10:00 AM FUR DRESSER Office Visit [facility] - Orthopedics [address] [place] [address] Cornelio Lima MD Lumbar spine pain (Primary Dx); Lumbar spondylosis; Spondylolisthesis of lumbar region; Degenerative scoliosis in adult patient; Cervical spondylosis with myelopathy; Cervicalgia 11/23/2024 9:49 AM FUR DRESSER - 11/23/2024 10:57 AM FUR DRESSER Hospital Encounter [facility] DIAGNOSTIC RAD CSM [address] [facility] [place] [address] Cornelio Lima MD Discharge Disposition: Home or Self Care 11/23/2024 Travel from Last 3 Months Immunizations Immunization [...] Sex Assigned at Female 09/16/2024 2:41 PM FUR DRESSER Legal Sex Female 5:56 AM FUR DRESSER Gender Identity Female 09/16/2024 2:41 PM FUR DRESSER Sexual Orientation Straight 09/16/2024 2: 41 PM FUR DRESSER Last Filed Vital Signs Vital Sign Reading Time Taken Comments Blood Pressure 121/80 02/09/2025 3:20 PM CDT Pulse 67 02/09/2025 3:20 PM CDT Temperature 36.3 C (97.3 F) 02/09/2025 3:20 PM CDT Respiratory Rate 20 02/09/2025 3:20 PM CDT Oxygen Saturation 97% 02/09/2025 3:20 PM CDT Inhaled Oxygen Concentration - - Weight 65.3 kg (144 lb) 02/09/2025 3:20 PM CDT Height 167.6 cm (5' 6 ) 02/09/2025 3:20 PM CDT Body Mass Index 23.24 02/09/2025 3:20 PM CDT Plan of Treatment Upcoming Encounters Date Type Department Care Team (Late st Contact Info) Description 03/02/2025 1:00 PM CDT Office Visit [facility] - Neurology [address] [place] [phone] Moncho Salcedo APRN-ARELY [address] [place] [address] [address] [place] [address] 03/15/2025 10:30 AM CDT Office Visit [facility] - Orthopedics [address] [place] [phone] Cornelio Lima MD [facility] [place] [address] 05/25/2025 1:15 PM CDT Office Visit [facility] - Ophthalmology [address] [place] [phone] Percy Matute MD [address] [place] [address] [place] [phone] 06/05/2025 8:30 AM CDT Office Visit [facility] - Internal Med [address] [place] [phone] Kerry Coffman DO [address] [place] [address] 2[address] DIV [place] [address] 08/16/2025 3:00 PM FUR DRESSER Office Visit [facility] - Allergy [address] [place] [phone] Papito Morales MD [address] [place] [address] [address] DIV [place] ALLERGY/[place] [address] Health Maintenance Due Date Last Done Comments [...] 05/15/2023, Additional history exists DIABETES RETINOPATHY SCREENING 02/09/2027 02/09/2025, 08/11/2024, 08/11/2024, Additional history exists COLONOSCOPY - COLON CA SCREENING 11/11/2029 11/11/2024, [...] Management General On track( 025 10:42 AM FUR DRESSER) Marion Scott RN Note: Expected end date: ongoing Interventions: Take all medications as prescribed Medical Devices Implanted Type Area Tailer In Device Identifier Shelf Expiration Date Model / Serial / Lot Slnt Dura Duraseal Pg Trilysine Amine 5 Implanted:Qty: 1 on 03/17/2022 by Jackelyn Yang MD at [facility] Left: Cranial [employer] Michael 08/11/2023 [id number] / / [id number] Guardian Branial Yuriy Hole Cover Sys Implanted:Qty: 1 on 03/17/2022 by Jackelyn Yang MD at [facility] Left: Cranial [place] 01/01/2024 6010 / / [id number] Directional Lead Implanted:Qty: 1 on 03/17/2022 by Shailesh North MD at [facility] Left: Cranial [employer] 09/25/2023 6172 / [id number] / Lead Extension Implanted:Qty: 1 on 03/24/2022 by Shailesh North MD at [facility] Left: Neck [employer] 01/15/2024 [id number] / / [id number] Generator Implanted:Qty: 1 on 03/24/2022 by Shailesh North MD at [facility] Left: Chest [employer] 11/19/2023 6662 / / [id number] [place] Spnl 140mm 6.35mm Ti Str Implanted:Qty: 1 on 08/29/2022 by Shailesh North MD at [facility] Right: Scalp [employer] 04/02/2024 6010 / / [employer] Dbs System Implanted:Qty: 1 on 08/29/2022 by Joshua Gill MD at [facility] Right: Brain 03/19/2024 6172 / [id number] / Description:cost per Levar [employer] System Implanted:Qty: 1 on 08/29/2022 by Joshua Gill MD at [facility] Right: Chest Wall 04/23/2024 6373 / [id number] / Description:cost per levar Procedures Procedure Name Priority Date/Time Associated Diagnosis Comments QUANTIFERON-TB GOLD PLUS 4-TUBE Routine 02/09/2025 3:03 PM CDT Optic nerve atrophy HEAVY METALS BLOOD QNT 4 PNL (,CD,HG,PB) Routine 02/09/2025 3:03 PM CDT Optic nerve atrophy LYSOZYME Routine 02/09/2025 3:03 PM CDT Optic nerve atrophy ANGIOTENSIN CONVERTING ENZYME BLOOD Routine 02/09/2025 3:03 PM CDT Optic nerve atrophy VITAMIN D 1,25 DIHYDROXY Routine 02/09/2025 3:03 PM CDT Optic nerve atrophy VITAMIN B12 Routine 02/09/2025 3:03 PM CDT Optic nerve atrophy XR CHEST 2VW Routine 02/09/2025 1:55 PM CDT Optic nerve atrophy XR CERVICAL SPINE 2 OR 3VW Routine 02/01/2025 11:14 AM CDT Degenerative scoliosis in adult patient Spondylolisthesis of lumbar region Cervical spondylosis with myelopathy XR SPINE ENTIRE 2 OR 3VW Routine 02/01/2025 11:14 AM CDT Degenerative scoliosis in adult patient Spondylolisthesis of lumbar region Cervical spondylosis with myelopathy CARDIAC EKG ORDER 12/26/2024 1:2 8 PM [...] OR MORE REGIONS Routine 12/08/2024 10:27 AM FUR DRESSER Lumbar spine pain CT LUMBAR POST MYELOGRAM Routine 12/08/2024 10:25 AM FUR DRESSER Lumbar spine pain CT CERVICAL POST MYELOGRAM Routine 12/08/2024 10:25 AM FUR DRESSER Lumbar spine pain XR SPINE ENTIRE 2 OR 3VW Routine 11/23/2024 11:09 AM FUR DRESSER Lumbar spine pain XR CERVICAL SPINE 2 OR 3VW Routine 11/23/2024 11:06 AM FUR DRESSER Lumbar spine pain XR LUMBAR SPINE 2 OR 3VW Routine 11/23/2024 10:00 AM FUR DRESSER Lumbar spine pain ENDOSCOPY, COLON, SCREENING Routine 11/11/2024 9:52 AM FUR DRESSER HEMOGLOBIN A1C - POINT OF CARE (AMB) [facility] Routine 04/04/2024 11:34 AM CDT Type 2 diabetes mellitus with hyperglycemia, without long-term current use of insulin MICROALB/CREAT RATIO URINE RANDOM PANEL 02/05/2023 12:26 PM CDT from Last 3 Months or Most Recently Relevant to Health Maintenance Results * QUANTIFERON-TB GOLD PLUS 4-TUBE (02/09/2025 3:03 PM CDT) [facility] QuantiFERON Mitogen Minus NIL 9.99 IU/mL 02/11/2025 11:40 PM CDT [facility] ([facility]) QuantiFERON Nil Value 0.01 IU/mL 02/11/2025 11:40 PM CDT [facility] ([facility]) QuantiFERON Plus TB1 Minus NIL 0.00 <=0.34 IU/mL 02/11/2025 11:40 PM CDT [facility] ([facility]) QuantiFERON Plus TB2 Minus NIL 0.00 <=0.34 IU/mL 02/11/2025 11:40 PM CDT [facility] ([facility]) QuantiFERON-TB Gold Plus Negative Negative 02/11/2025 11:40 PM CDT [facility] ([facility]) Comment: INTERPRETIVE INFORMATION:Quantiferon TB Gold Plus Interferon gamma release is measured for specimens from each of the four collection tubes. A qualitative result (Negative, Positive, or Indeterminate) is based on interpretation of the four values: NIL, MITOGEN minus NIL (MITOGEN-NIL), TB1 minus NIL (TB1-NIL), and TB2 minus NIL (TB2-NIL). The NIL value represents nonspecific reactivity produced by the patient specimen. The MITOGEN-NIL value serves as the positive control for the patient specimen, demonstrating successful lymphocyte activity. The TB1-NIL tube specifically detects CD4+ lymphocyte reactivity, specifically stimulated by the TB1 antigens. The TB2-NIL tube detects both CD4+ and CD8+ lymphocyte reactivity, stimulated by TB2 antigens. An overall Negative result does not completely rule out TB infection. A false-positive result in the absence of other clinical evidence of TB infection is not uncommon. Refer to: Updated Guidelines for Using Interferon Gamma Release Assays to Detect Mycobacterium tuberculosis Infection -- [place], 2010 (http://www.cdc.gov/mmwr/preview/mmwrhtml/fz5478i0.htm), for more information concerning test performance in low-prevalence populations and use in occupational screening. Performed By: [facility] [address] [place] [address] Picking Table Worker: Richard Guerin MD, PhD CLIA Number: [id number] Blood BLOOD SPECIMEN / Unknown Lab Venipuncture / Unknown 02/09/2025 3:03 PM CDT 02/09/2025 3:22 PM CDT Percy Matute MD LAB - CHEMISTRY ORDERABLES [facility] Result [facility] [employer] ([facility]) [address] [id number], [facility] * HEAVY METALS BLOOD QNT 4 PNL (,CD,HG,PB) (02/09/2025 3:03 PM CDT) Lead <2.0 <=4.9 ug/dL 02/11/2025 10:33 AM CDT [facility] [employer] ([facility]) Comment: INTERPRETIVE INFORMATION: Lead, Blood (Venous) Analysis performed by Inductively Coupled Plasma-Mass Spectrometry (ICP-MS). Elevated results may be due to skin or collection-related contamination, including the use of a noncertified lead-free tube. If contamination concerns exist due to elevated levels of blood lead, confirmation with a second specimen collected in a certified lead-free tube is recommended. Information sources for blood lead reference intervals and interpretive comments include the CDC's Childhood Lead Poisoning Prevention: Recommended Actions Based on Blood Lead Level and the Adult Blood Lead Epidemiology and Surveillance: Reference Blood Lead Levels (BLLs) for Adults in the [place] Thresholds and time intervals for retesting, medical evaluation, and response vary by state and regulatory body. Contact your State Department of Health and/or applicable regulatory agency for specific guidance on medical management recommendations. This test was developed and its performance characteristics determined by [facility]. It has not been cleared or approved by the [place].S. Food and Drug Administration. This test was performed in a CLIA-certified laboratory and is intended for clinical purposes. Group Concentration Comment Children 3.5-19.9 ug/dL Children under the age of 6 years are the most vulnerable to the harmful effects of lead exposure. Environmental investigation and exposure history to identify potential sources of lead. Biological and nutritional monitoring are recommended. Follow-up blood lead monitoring is recommended. 20-44.9 ug/dL Lead hazard reduction and prompt medical evaluation are recommended. Contact a Pediatric Environmental Health Specialty Unit or poison control center for guidance. Greater than Critical. Immediate medical 44.9 ug/dL evaluation, including detailed neurological exam is recommended. Consider chelation therapy when symptoms of lead toxicity are present. Contact a Pediatric Environmental Health Specialty Unit or poison control center for assistance. Adult 5-19.9 ug/dL Medical removal is recommended for women or those who are trying or may become . Adverse health effects are possible. Reduced lead exposure and increased blood lead monitoring are recommended. 20-69.9 ug/dL Adverse health effects are indicated. Medical removal from lead exposure is required by OSHA if blood lead level exceeds 50 ug/dL. Prompt medical evaluation is recommended. Greater than Critical. Immediate medical 69.9 ug/dL evaluation is recommended. Consider chelation therapy when symptoms of lead toxicity are present. Arsenic <10.0 <=12.0 ug/L 02/11/2025 10:33 AM T [facility] ([facility]) Comment: INTERPRETIVE INFORMATION: Arsenic, Blood Elevated results may be due to skin or collection-related contamination, including the use of a noncertified metal-free collection/transport tube. If contamination concerns exist due to elevated levels of blood arsenic, confirmation with a second specimen collected in a certified metal-free tube is recommended. Potentially toxic ranges for blood arsenic: Greater than or equal to 600 ug/L. Blood arsenic is for the detection of recent exposure poisoning only. Blood arsenic levels in healthy subjects vary considerably with exposure to arsenic in the diet and the environment. A 24-hour urine arsenic is useful for the detection of chronic exposure. This test was developed and its performance characteristics determined by [facility]. It has not been cleared or approved by the [place] Food and Drug Administration. This test was performed in a CLIA certified laboratory and is intended for clinical purposes. Cadmium <1.0 <=5.0 ug/L 02/11/2025 10:[address] [address] ([facility]) Comment: INTERPRETATION INFORMATION: Cadmium, Blood Elevated results may be due to skin or collection-related contamination, including the use of a noncertified metal-free collection/transport tube. If contamination concerns exist due to elevated levels of blood cadmium, confirmation with a second specimen collected in a certified metal-free tube is recommended. Blood cadmium levels can be used to monitor acute toxicity and in combination with cadmium urine and B-2 microglobulin is the preferred method for monitoring occupational exposure. Symptoms associated with cadmium toxicity vary based upon route of exposure and may include tubular proteinuria, fever, headache, dyspnea, chest pain, conjunctivitis, rhinitis, sore throat and cough. Ingestion of cadmium in high concentration may cause vomiting, diarrhea, salivation, cramps, and abdominal pain. This test was developed and its performance characteristics determined by [facility]. It has not been cleared or approved by the [place] Food and Drug Administration. This test was performed in a CLIA certified laboratory and is intended for clinical purposes. Mercury <2.5 <=10.0 ug/L 02/11/2025 10:33 AM CDT [facility] ([facility]) Comment: INTERPRETIVE INFORMATION: Mercury, Blood Elevated results may be due to skin or collection-related contamination, including the use of a noncertified metal-free collection/transport tube. If contamination concerns exist due to elevated levels of blood mercury, confirmation with a second specimen collected in a certified metal-free tube is recommended. Blood mercury levels predominantly reflect recent exposure and are most useful in the diagnosis of acute poisoning as blood mercury concentrations rise sharply and fall quickly over several days after ingestion. Blood concentrations in unexposed individuals rarely exceed 20 ug/L. The provided reference interval relates to inorganic mercury concentrations. Dietary and non-occupational exposure to organic mercury forms may contribute to an elevated total mercury result. Clinical presentation after toxic exposure to organic mercury may include dysarthria, ataxia and constricted vision bland with mercury blood concentrations from 20 to 50 ug/L. This test was developed and its performance characteristics determined by [facility]. It has not been cleared or approved by the [place] Food and Drug Administration. This test was performed in a CLIA certified laboratory and is intended for clinical purposes. Performed By: [facility] [address] [place] [address] Picking Table Worker: Richard Guerin MD, PhD CLIA Number: [id number] Blood BLOOD SPECIMEN / Unknown Lab Venipuncture / Unknown 02/09/2025 3:03 PM CDT 02/09/2025 3:17 PM CDT us Percy Matute MD LAB - CHEMISTRY ORDERABLES Fi nal Result [facility] [employer] [facility]) [address] [place] [address] * LYSOZYME (02/09/2025 3:03 PM CDT) [facility] Lysozyme 1.08 <=4.50 ug/mL 02/12/2025 1:52 AM CDT [facility] [employer] ([facility]) Comment: REFERENCE INTERVAL: Lysozyme, Serum 2.75 ug/mL or less ......... Negative 2.76 - 4.50 ug/mL .......... Equivocal 4.51 ug/mL or greater ...... Positive This test was developed and its performance characteristics determined by [facility]. It has not been cleared or approved by the [place] Food and Drug Administration. This test was performed in a CLIA certified laboratory and is intended for clinical purposes. Performed By: [employer] [address] [place] [address] Picking Table Worker: Richard Guerin MD, PhD CLIA Number: [id number] Blood BLOOD SPECIMEN / Unknown Lab Venipuncture / Unknown 02/09/2025 3:03 PM CDT 02/09/2025 3:17 PM CDT Percy Matute MD LAB - COAGULATION ORDERABLES Final Result Performing Organization Address [facility] de Phone Number [address] * VITAMIN D 1,25 DIHYDROXY (02/09/2025 3:03 PM CDT) Pathologist [facility] Vitamin D, 1,25 Dihydroxy 36.1 19.9 - 79.3 pg/mL 02/11/2025 3:03 PM CDT [facility] [employer] [facility]) Comment: INTERPRETIVE INFORMATION: Vitamin D, 1,25-Dihydroxy This test is primarily indicated during patient evaluation for hypercalcemia and renal failure. A normal result does not rule out Vitamin D deficiency. The recommended test for diagnosing Vitamin D deficiency is Vitamin D 25-hydroxy. Performed By: [employer] [address] [place] [address] Picking Table Worker: Richard Guerin MD, PhD CLIA Number: [id number] Blood BLOOD SPECIMEN / Unknown Lab Venipuncture / Unknown 02/09/2025 3:03 PM CDT 02/09/2025 3:17 PM CDT Percy Matute MD LAB - CHEMISTRY ORDERABLES Fi nal Result Performing Organization Address [facility] Co de Phone Number [facility] [employer] [facility]) [address] [place] [address] * ANGIOTENSIN CONVERTING ENZYME BLOOD (02/09/2025 3:03 PM CDT) Pathologist [facility] Angiotensin-Conve rting Enzyme 41 16 - 85 U/L 02/11/2025 11:03 AM CDT [facility] ([facility]) Comment: Performed By: [employer] [address] [place] [address] Picking Table Worker: Richard Guerin MD, PhD CLIA Number: [id number] Blood BLOOD SPECIMEN / Unknown Lab Venipuncture / Unknown 02/09/2025 3:03 PM CDT 02/09/2025 3:17 PM CDT Percy Matute MD LAB - CHEMISTRY ORDERABLES Fi nal Result Performing Organization Address City/[facility]/ZIP Co de Phone Number [facility]) [address] [place] [address] * VITAMIN B12 (02/09/2025 3:03 PM CDT) Pathologist [facility] Vitamin B12 778 213 - 816 pg/mL 02/09/2025 4:16 PM CDT [facility] Blood BLOOD SPECIMEN / Unknown Lab Venipuncture / Unknown 02/09/2025 3:03 PM CDT 02/09/2025 3:25 PM CDT us Percy Matute MD LAB - CHEMISTRY ORDERABLES Fi nal Result Performing Organization Address City/[facility]/ZIP Co de Phone Number [address] [address], [facility] [phone] * XR Chest 2Vw (02/09/2025 1:55 PM CDT) Only the most recent of2 resultswithin the time period is included. 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 TECHNIQUE: Frontal and lateral radiograph of the chest. FINDINGS/IMPRESSION: *A deep brain stimulator device overlies the left hemithorax with wires extending cephalad on either side of the neck Hyperinflated lungs. There is no focal consolidation, pleural effusion, or pneumothorax. The cardiomediastinal silhouette is normal. The visible bony thorax is intact. Report dictated by Michel Bermudez MD, ([employer]frame Systems Programmer). Ritu Gutierrez MD have personally reviewed and interpreted this examination/study. 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 TECHNIQUE: Frontal and lateral radiograph of the chest. FINDINGS/IMPRESSION: *A deep brain stimulator device overlies the left hemithorax with wires extending cephalad on either side of the neck Hyperinflated lungs. There is no focal consolidation, pleural effusion,or pneumothorax. The cardiomediastinal silhouette is normal. The visiblebony thorax is intact. Report dictated by Michel Bermudez MD, ([employer] Programmer). Ritu Gutierrez MD have personally reviewed and interpreted this examination/study. > Interpreting Provider: Ritu Bardales MD on 02/09/2025 1:59 PM us Percy Matute MD DIAGNOSTIC IMAGING ORDERABLES Final Result * XR Cervical Spine 2 or 3Vw (02/01/2025 11:14 AM CDT) Only the most recent of2 resultswithin the time period is included. Anatomical Region Laterality Modality Spine Radiographic Erna ging 02/01/2025 11:2 5 AM CDT Impressions 02/01/2025 11:27 AM CDT IMPRESSION: Moderate cervical spondylosis. > Interpreting Provider: Baljinder Henson MD on 02/01/2025 11:27 AM Narrative 02/01/2025 11:27 AM CDT PROCEDURE: XR CERVICAL SPINE 2 OR 3VW DATE/TIME OF EXAM: 02/01/2025 11:14 AM CLINICAL INFORMATION: None relevant/not provided if blank. Indication: M41.50: Degenerative scoliosis in adult patient M43.16: Spondylolisthesis of lumbar region M47.12: Cervical spondylosis with myelopathy Additional History: COMPARISON: 11/23/2024 FINDINGS: There is straightening of the usual cervical lordosis. There is no fracture or subluxation. There is moderate multilevel degenerative disc and joint disease. Leads are visible in both sides of the neck. Procedure Note Baljinder Henson MD - 02/01/2025 PROCEDURE: XR CERVICAL SPINE 2 OR 3VW DATE/TIME OF EXAM: 02/01/2025 11:14 AM CLINICAL INFORMATION: None relevant/not provided if blank. Indication: M41.50: Degenerative scoliosis in adult patient M43.16: Spondylolisthesis of lumbar region M47.12: Cervical spondylosis with myelopathy Additional History: COMPARISON: 11/23/2024 FINDINGS: There is straightening of the usual cervical lordosis. There is nofracture or subluxation. There is moderate multilevel degenerative disc and joint disease. Leads are visible in both sides of the neck. IMPRESSION: Moderate cervical spondylosis. > Interpreting Provider: Baljinder Henson MD on 02/01/2025 11:27 AM Cornelio Lima MD DIAGNOSTIC IMAGING ORD ERABLES Final Result * XR Spine Entire 2 or 3Vw (02/01/2025 11:14 AM CDT) Only the most recent of2 resultswithin the time period is included. Anatomical Region Laterality Modality Spine Radiographic Erna ging 02/01/2025 11:2 7 AM CDT Impressions 02/01/2025 11:30 AM CDT IMPRESSION: Mild scoliosis. > Interpreting Provider: Baljinder Henson MD on 02/01/2025 11:30 AM Narrative 02/01/2025 11:30 AM CDT PROCEDURE: XR SPINE ENTIRE 2 OR 3VW DATE/TIME OF EXAM: 02/01/2025 11:14 AM CLINICAL INFORMATION: None relevant/not provided if blank. Indication: M41.50: Degenerative scoliosis in adult patient M43.16: Spondylolisthesis of lumbar region M47.12: Cervical spondylosis with myelopathy Additional History: COMPARISON: 11/23/2024 TECHNIQUE: FINDINGS: A deep brain stimulator is present with generator in the left anterior chest wall and right and left leads extending to the head. There is dextroscoliosis measuring 11 degrees from T3 to T9. The thoracic kyphosis and lumbar lordosis are normal. There is grade 1 anterolisthesis at L4-5. Mild spinal degenerative changes. There is mild pelvic tilt with the left iliac crest higher than the right. Procedure Note Baljinder Henson MD - 02/01/2025 PROCEDURE: XR SPINE ENTIRE 2 OR 3VW DATE/TIME OF EXAM: 02/01/2025 11:14 AM CLINICAL INFORMATION: None relevant/not provided if blank. Indication: M41.50: Degenerative scoliosis in adult patient M43.16: Spondylolisthesis of lumbar region M47.12: Cervical spondylosis with myelopathy Additional History: COMPARISON: 11/23/2024 TECHNIQUE: FINDINGS: A deep brain stimulator is present with generator in the left anterior chest wall and right and left leads extending to the head. There is dextroscoliosis measuring 11 degrees from T3 to T9. Thethoracic kyphosis and lumbar lordosis are normal. There is grade 1anterolisthesis at L4-5. Mild spinal degenerative changes. There is mild pelvic tiltwith the left iliac crest higher than the right. IMPRESSION: Mild scoliosis. > Interpreting Provider: Baljinder Henson MD on 02/01/2025 11:30 AM us Cornelio Lima MD DIAGNOSTIC IMAGING ORD ERABLES Final Result * CARDIAC EKG ORDER (12/26/2024 1:28 PM CDT) Narrative 12/26/2024 1:28 PM CDT Ordered by an unspecified provider. us Scanned Document CARDIAC SERVICES ORDERABLES Fin al Result * TROPONIN-I HIGH SENSITIVE REFLEX 1HOUR (12/23/2024 10:40 AM CDT) Troponin I High Sensitive <3 <=14 ng/L 12/23/2024 11:21 AM [facility] Delta Troponin I HS 12/23/2024 11:21 AM [facility] Comment:Delta value intentio yasir not calculated. Baseline to 1 hour specimen collection interval exceeded. Blood BLOOD SPECIMEN / Unknown Venipuncture / Unknown 12/23/2024 10:40 AM CDT 12/23/2024 10:44 AM CDT us Yuval Krueger MD LAB - CHEMISTRY ORDERABLES Fi nal Result [address] [address], [facility] [phone] * (ABNORMAL) URINALYSIS REFLEX TO MICROSCOPIC NO CULTURE (12/23/2024 10:21 AM CDT) Pathologist [facility] Color UA Colorless(A ) Yellow, Straw 12/23/2024 10:41 AM [facility] Clarity UA Clear Clear 12/23/2024 10:41 AM [facility] Glucose UA Normal Normal 12/23/2024 10:41 AM [facility] Bilirubin UA Negative Negative 12/23/2024 10:41 AM [facility] Ketone UA Negative Negative 12/23/2024 10:41 AM [facility] Specific [place] UA <1.005(L) 1.005 - 1.030 12/23/2024 10:41 AM [facility] Blood UA Negative Negative 12/23/2024 10:41 AM [facility] pH UA 7.5 5.0 - 9.0 pH 12/23/2024 10:41 AM [facility] Protein UA Negative Negative 12/23/2024 10:41 AM [facility] Urobilinogen UA Normal Normal mg/dL 12/23/2024 10:41 AM [facility] Nitrite UA Negative Negative 12/23/2024 10:41 AM [facility] Leukocyte UA Negative Negative 12/23/2024 10:41 AM CDT [facility] Urine URINE SPECIMEN OBTAINED BY CLEAN CATCH PROCEDURE / Unknown Collection / Unknown 12/23/2024 10:21 AM CDT 12/23/2024 10:31 AM CDT Yuval Krueger MD LAB - URINALYSIS ORDERABLES F inal Result [id number] [place] [address], [facility] [phone] * CT CERVICAL SPINE WO CONTRAST (12/23/2024 9:33 AM CDT) Anatomical Region Laterality Modality Spine Computed Tomogra phy 12/23/2024 9:33 AM CDT Impressions 12/23/2024 11:16 AM CDT IMPRESSION: 1. No acute intracranial process. 2. No evidence of acute fracture in the cervical spine. 3. Multiple chronic findings as detailed in the report. > Dictated by Balaji Browne MD ([employer]frame Systems Programmer), 12/23/2024 9:47 AM. I, Masha Alexandra MD have personally reviewed and interpreted this examination/study. > Interpreting Provider: Masha Alexandra MD on 12/23/2024 11:16 AM Narrative 12/23/2024 11:16 AM CDT PROCEDURE: CT HEAD WO CONTRAST, CT CERVICAL SPINE WO CONTRAST, DATE/TIME OF EXAM: 12/23/2024 9:33 AM, LOCATION [facility] INDICATION: W18.30XA: Ground-level fall EXAMINATION: 1. Computed [...] CONTRAST,DATE/TIME OF EXAM: 12/23/2024 9:33 AM, LOCATION [facility] INDICATION: W18.30XA: Ground-level fall EXAMINATION: 1. Computed [...] report. > Dictated by Balaji Browne MD ([employer]frame Systems Programmer), 12/23/2024 9:47 AM. I, Masha Alexandra MD [...] report. > Dictated by Balaji Browne MD ([employer]frame Systems Programmer), 12/23/2024 9:47 AM. I, Masha Alexandra MD have personally reviewed and interpreted this examination/study. > Interpreting Provider: Masha Alexandra MD on 12/23/2024 11:16 AM Narrative 12/23/2024 11:16 AM CDT PROCEDURE: CT HEAD WO CONTRAST, CT CERVICAL SPINE WO CONTRAST, DATE/TIME OF EXAM: 12/23/2024 9:33 AM, LOCATION [facility] INDICATION: W18.30XA: Ground-level fall EXAMINATION: 1. Computed [...] CONTRAST,DATE/TIME OF EXAM: 12/23/2024 9:33 AM, LOCATION [facility] INDICATION: W18.30XA: Ground-level fall EXAMINATION: 1. Computed [...] report. > Dictated by Balaji Browne MD ([employer] Programmer), 12/23/2024 9:47 AM. I, Masha Alexandra MD have personally reviewed and interpreted this examination/study. > Interpreting Provider: Masha Alexandra MD on 12/23/2024 11:16 AM Yuval Krueger MD CT ORDERABLES Final Result * TROPONIN-I HIGH SENSITIVE BASELINE + 1HR (12/23/2024 9:06 AM CDT) [facility] Troponin I High Sensitive <3 <=14 ng/L 12/23/2024 10:05 AM [facility] Blood BLOOD SPECIMEN / Unknown Venipuncture / Unknown 12/23/2024 9:06 AM CDT 12/23/2024 9:27 AM CDT Yuval Krueger MD LAB - CHEMISTRY ORDERABLES Fi nal Result Performing Organization Address [facility]/State/ZIP Co de Phone Number [address] [address], [facility] [phone] * (ABNORMAL) CBC W AUTO DIFFERENTIAL (12/23/2024 9:06 AM CDT) [facility] WBC 4.9 4.0 - 10.7 x10E9/L 12/23/2024 10:06 AM [facility] RBC Count 4.26 3.90 - 5.20 x10E12/L 12/23/2024 10:06 AM [facility] Hemoglobin 13.2 11.9 - 15.8 g/dL 12/23/2024 10:06 AM [facility] Hematocrit 39.6 34.8 - 46.1 % 12/23/2024 10:06 AM [facility] MCV 93.0 80.0 - 98.0 fL 12/23/2024 10:06 AM [facility] MCH 31.0 26.7 - 33.6 pg 12/23/2024 10:06 AM [facility] MCHC 33.3 31.7 - 36.3 g/dL 12/23/2024 10:06 AM [facility] RDW-CV 13.3 11.3 - 14.8 % 12/23/2024 10:06 AM [facility] Platelet Count 12/23/2024 10:06 AM [facility] Comment:Platelets clumped on slide but appears adequate. Recommend repeat with a sodium citrate blue top tube. MPV 12/23/2024 10:06 AM [facility] Comment:Unable to report Neutrophil % 69.5 41.0 - 74.0 % 12/23/2024 10:06 AM [facility] Lymphocyte % 16.6(L) 17.0 - 47.0 % 12/23/2024 10:06 AM [facility] Monocyte % 10.1 3.0 - 11.0 % 12/23/2024 10:06 AM [facility] Eosinophil % 2.4 0.0 - 7.0 % 12/23/2024 10:06 AM [facility] Basophil % 1.0 0.0 - 1.6 % 12/23/2024 10:06 AM [facility] Immature Granulocytes % 0.4 0.0 - 1.0 % 12/23/2024 10:06 AM [facility] Neutrophil Absolute 3.43 1.60 - 7.50 x10E9/L 12/23/2024 10:06 AM [facility] Lymphocyte Absolute 0.82(L) 1.00 - 4.40 x10E9/L 12/23/2024 10:06 AM [facility] Monocyte Absolute 0.50 0.15 - 1.00 x10E9/L 12/23/2024 10:06 AM [facility] Eosinophil Absolute 0.12 0.00 - 0.60 x10E9/L 12/23/2024 10:06 AM CDT [facility] Basophil Absolute 0.05 0.00 - 0.13 x10E9/L 12/23/2024 10:06 AM [facility] Blood BLOOD SPECIMEN / Unknown Venipuncture / Unknown 12/23/2024 9:06 AM CDT 12/23/2024 9:27 AM CDT us Yuval Krueger MD LAB - HEMATOLOGY ORDERABLES F inal Result [facility] [address] [place] [address], [facility] [phone] * (ABNORMAL) COMPREHENSIVE METABOLIC PANEL (12/23/2024 9:06 AM T) BUN 9 7 - 26 mg/dL 12/23/2024 10:02 AM [facility] Creatinine 0.87 0.56 - 0.96 mg/dL 12/23/2024 10:02 AM [facility] Sodium 143 136 - 145 mmol/L 12/23/2024 10:02 AM [facility] Potassium 4.4 3.5 - 4.5 mmol/L 12/23/2024 10:02 AM [facility] Chloride 104 98 - 107 mmol/L 12/23/2024 10:02 AM [facility] CO2 31(H) 22 - 29 mmol/L 12/23/2024 10:02 AM [facility] Glucose 97 70 - 99 mg/dL 12/23/2024 10:02 AM [facility] Calcium 9.5 8.4 - 10.2 mg/dL 12/23/2024 10:02 AM [facility] Protein Total 6.7 6.0 - 8.3 g/dL 12/23/2024 10:02 AM [facility] Albumin 3.8 3.4 - 5.0 g/dL 12/23/2024 10:02 AM [facility] Bilirubin Total 0.4 0.2 - 1.2 mg/dL 12/23/2024 10:02 AM [facility] Alkaline Phosphatase 116 40 - 150 U/L 12/23/2024 10:02 AM [facility] ALT 30 5 - 55 U/L 12/23/2024 10:02 AM [facility] AST 32 5 - 34 U/L 12/23/2024 10:02 AM [facility] Anion Gap 8 6 - 16 12/23/2024 10:02 AM [facility] BUN/Creatinine Ratio 10 7 - 23 12/23/2024 10:02 AM [facility] Osmolality Calculated 295 275 - 295 mOsm/kg 12/23/2024 10:02 AM [facility] Albumin/Globulin Ratio 1.3 1.1 - 2.3 12/23/2024 10:02 AM [facility] eGFR by CKD-EPI 72(L) >=90 mL/min/1.7 3 m2 12/23/2024 10:02 AM [facility] Blood BLOOD SPECIMEN / Unknown Venipuncture / Unknown 12/23/2024 9:06 AM CDT 12/23/2024 9:27 AM CDT us Yuval Krueger MD LAB - CHEMISTRY ORDERABLES Fi nal Result [facility] [address] [place] [address], [facility] [phone] * EKG 12-LEAD (12/23/2024 9:05 AM CDT) Ventricular Rate 56 BPM [facility] Atrial Rate 56 BPM [facility] P-R Interval 176 ms [facility] QRS Duration ms 82 ms [facility] Q-T Interval ms 450 ms [facility] QTC Calculation (Bezet) 434 ms [facility] Calculated P Letts 45 degrees [facility] Calculated R Letts 9 degrees [facility] Calculated T Letts 54 degrees [facility] Interpretation EKG SINUS BRADYCARDIA LOW VOLTAGE QRS BORDERLINE ECG NO PREVIOUS ECGS AVAILABLE Confirmed by ROBBIE RENDON MD ([id number]) on 12/25/2024 12:16:38 PM [facility] 12/23/2024 9:05 AM CDT 12/25/2024 12:16 [...] DATE/TIME OF EXAM: 12/23/2024 8:58 AM, LOCATION [facility] INDICATION: W18.30XA: Ground-level fall ADDITIONAL CLINICAL INFORMATION: [...] XR TIBIA FIBULA LEFT 2VW, XR KNEE [id number] OR LESS, XR ANKLE LEFT 3VW OR MORE, DATE/TIME OF EXAM: 12/23/2024 8:58AM, LOCATION [facility] INDICATION: W18.30XA: Ground-level fall ADDITIONAL CLINICAL INFORMATION: [...] MORE, DATE/TIME OF EXAM: 12/23/2024 9:00 AM, [facility] INDICATION: W18.30XA: Ground-level fall ADDITIONAL CLINICAL [...] DATE/TIME OF EXAM: 12/23/2024 9:00 AM, LOCATION [facility] INDICATION: W18.30XA: Ground-level fall ADDITIONAL CLINICAL INFORMATION: [...] DATE/TIME OF EXAM: 12/23/2024 9:00 AM, LOCATION [facility] INDICATION: W18.30XA: Ground-level fall ADDITIONAL CLINICAL INFORMATION: [...] DATE/TIME OF EXAM: 12/23/2024 9:00 AM, LOCATION [facility] INDICATION: W18.30XA: Ground-level fall ADDITIONAL CLINICAL INFORMATION: [...] 9:28 AM Yuval Krueger MD DIAGNOSTIC IMAGING ORDERABLES [...] DATE/TIME OF EXAM: 12/23/2024 8:58 AM, LOCATION [facility] INDICATION: W18.30XA: Ground-level fall ADDITIONAL CLINICAL INFORMATION: [...] XR TIBIA FIBULA LEFT 2VW, XR KNEE [id number] OR LESS, XR ANKLE LEFT 3VW OR MORE, DATE/TIME OF EXAM: 12/23/2024 8:58AM, LOCATION [facility] INDICATION: W18.30XA: Ground-level fall ADDITIONAL CLINICAL INFORMATION: [...] DATE/TIME OF EXAM: 12/23/2024 8:58 AM, LOCATION [facility] INDICATION: W18.30XA: Ground-level fall ADDITIONAL CLINICAL INFORMATION: [...] XR TIBIA FIBULA LEFT 2VW, XR KNEE [id number] OR LESS, XR ANKLE LEFT 3VW OR MORE, DATE/TIME OF EXAM: 12/23/2024 8:58AM, LOCATION [facility] INDICATION: W18.30XA: Ground-level fall ADDITIONAL CLINICAL INFORMATION: [...] DATE/TIME OF EXAM: 12/23/2024 8:58 AM, LOCATION [facility] INDICATION: W18.30XA: Ground-level fall ADDITIONAL CLINICAL INFORMATION: [...] XR TIBIA FIBULA LEFT 2VW, XR KNEE [id number] OR LESS, XR ANKLE LEFT 3VW OR MORE, DATE/TIME OF EXAM: 12/23/2024 8:58AM, LOCATION [facility] INDICATION: W18.30XA: Ground-level fall ADDITIONAL CLINICAL INFORMATION: [...] 2 or More Regions (12/08/2024 10:27 AM [facility]) Anatomical Region Laterality Modality Spine Digital Radiogra phy 12/08/2024 1:17 PM [facility] Impressions 12/13/2024 12:15 PM [facility] IMPRESSION: 1.Successful lumbar puncture for cervical and [...] degenerative disc and joint disease as detailed lucdl-qr-ptexs above, worse at L4-L5, as outlined. 2.Transitional anatomy as noted above. The report is dictated by Addi Arambula MD, (resident care manager rn) Attending Physician: Dr. Magadlena Blackmon Garment Supervisor: Dr. Addi Arambula MD, (resident care manager rn) The procedure was performed by the: The acute care nursing assistant, and the attending radiologist was present [...] 12/13/2024 12:15 PM Narrative 12/13/2024 12:15 PM [facility] PROCEDURE: FL MYELOGRAM 2 OR MORE REGIONS, CT LUMBAR POST MYELOGRAM, CT CERVICAL POST MYELOGRAM DATE/TIME OF EXAM: 12/08/2024 10:34 AM CLINICAL INFORMATION: PROCEDURE: FL MYELOGRAM 2 OR MORE REGIONS, CT LUMBAR POST MYELOGRAM, CT CERVICAL POST MYELOGRAM, DATE/TIME OF EXAM: 12/08/2024 10:34 AM, LOCATION [facility] INDICATION: M54.50: Lumbar spine pain ADDITIONAL CLINICAL INFORMATION: Ordering Provider Reason For Exam: myelopathy (accession [id number]), chronic low back pain (accession [id number]) Technologist Note: None. Additional: None. EXAMINATION: 1.Lumbar [...] The patient was then transferred to the family member caretaker unit for further observation and 2 hours [...] no high-grade central canal stenosis. There is pmuv-cn-fpkwoqdw facet osteoarthritis. There is mild bilateral neural foraminal stenosis. Procedure Note Magdalena Blackmon MD - 12/13/2024 PROCEDURE: FL MYELOGRAM 2 OR MORE REGIONS, CT LUMBAR POST MYELOGRAM, CT CERVICAL POST MYELOGRAM DATE/TIME OF EXAM: 12/08/2024 10:34 AM CLINICAL INFORMATION: PROCEDURE: FL MYELOGRAM 2 OR MORE REGIONS, CTLUMBAR POST MYELOGRAM, CT CERVICAL POST MYELOGRAM, DATE/TIME OF EXAM:12/08/2024 10:34 AM, LOCATION [facility] INDICATION: M54.50: Lumbar spine pain ADDITIONAL CLINICAL INFORMATION: Ordering Provider Reason For Exam: myelopathy (accession [id number]), chronic low back pain (accession [id number]) Technologist Note: None. Additional: None. EXAMINATION: 1.Lumbar [...] well. The patient wasthen transferred to the family member caretaker unit for further observation and 2hours of [...] island in the right aspect of the I2rdyzruhll body. Vertebral bodies are normal in height [...] is no high-grade central canal stenosis. Thereis sofv-xh-whfimtfv facet osteoarthritis. There is mild bilateral neural [...] 1.Multilevel degenerative disc and joint disease as rfeayqvlryele-bi-plrgs above, worse at L4-L5, as outlined. 2.Transitional anatomy as noted above. The report is dictated by Addi Arambula MD, (resident care manager rn) Attending Physician: Dr. Magadlena Blackmon Garment Supervisor: Dr. Addi Arambula MD, (resident care manager rn) The procedure was performed by the: The acute care nursing assistant, and the attending radiologist was present for allcritical and mariscal portions of the procedure, and was immediately available to[facility] services during the entire procedure. The attending radiologist performed the following procedural activities: Dr. Magdalena Gutierrez was there and supervised mariscal portions of the procedure, not scrubbed. IMagdalena MD have personally reviewed and interpretedthis examination/study. > Interpreting Provider: Magdalena Blackmon MD on 12/13/2024 12:15 PM us Cornelio Lima MD FLUOROSCOPY ORDERABLES Final Result * CT Lumbar Post Myelogram (12/08/2024 10:25 AM [facility]) Anatomical Region Laterality Modality Spine Computed Tomogra phy 12/08/2024 1:17 PM [facility] Impressions 12/13/2024 12:15 PM [facility] IMPRESSION: 1.Successful lumbar puncture for cervical and [...] degenerative disc and joint disease as detailed mizba-md-zgaif above, worse at L4-L5, as outlined. 2.Transitional anatomy as noted above. The report is dictated by Addi Arambula MD, (resident care manager rn) Attending Physician: Dr. Magdalena Blackmon Garment Supervisor: Dr. Addi Arambula MD, (resident care manager rn) The procedure was performed by the: The acute care nursing assistant, and the attending radiologist was present [...] 12/13/2024 12:15 PM Narrative 12/13/2024 12:15 PM [facility] PROCEDURE: FL MYELOGRAM 2 OR MORE REGIONS, CT LUMBAR POST MYELOGRAM, CT CERVICAL POST MYELOGRAM DATE/TIME OF EXAM: 12/08/2024 10:34 AM CLINICAL INFORMATION: PROCEDURE: FL MYELOGRAM 2 OR MORE REGIONS, CT LUMBAR POST MYELOGRAM, CT CERVICAL POST MYELOGRAM, DATE/TIME OF EXAM: 12/08/2024 10:34 AM, LOCATION [facility] INDICATION: M54.50: Lumbar spine pain ADDITIONAL CLINICAL INFORMATION: Ordering Provider Reason For Exam: myelopathy (accession [id number]), chronic low back pain (accession [id number]) Technologist Note: None. Additional: None. EXAMINATION: 1.Lumbar [...] The patient was then transferred to the family member caretaker unit for further observation and 2 hours [...] no high-grade central canal stenosis. There is mlsu-ul-lvakfexd facet osteoarthritis. There is mild bilateral neural foraminal stenosis. Procedure Note Magdalena Blackmon MD - 12/13/2024 PROCEDURE: FL MYELOGRAM 2 OR MORE REGIONS, CT LUMBAR POST MYELOGRAM, CT CERVICAL POST MYELOGRAM DATE/TIME OF EXAM: 12/08/2024 10:34 AM CLINICAL INFORMATION: PROCEDURE: FL MYELOGRAM 2 OR MORE REGIONS, CTLUMBAR POST MYELOGRAM, CT CERVICAL POST MYELOGRAM, DATE/TIME OF EXAM:12/08/2024 10:34 AM, LOCATION [facility] INDICATION: M54.50: Lumbar spine pain ADDITIONAL CLINICAL INFORMATION: Ordering Provider Reason For Exam: myelopathy (accession [id number]), chronic low back pain (accession [id number]) Technologist Note: None. Additional: None. EXAMINATION: 1.Lumbar [...] physician: Dr. Blackmon was present for the maricsal portions ofthis procedure. The L3-4 level was [...] well. The patient wasthen transferred to the family member caretaker unit for further observation and 2hours of [...] island in the right aspect of the H6jbiqikkxa body. Vertebral bodies are normal in height [...] is no high-grade central canal stenosis. Thereis eryv-fz-zyyoqsvk facet osteoarthritis. There is mild bilateral neural [...] 1.Multilevel degenerative disc and joint disease as sgthmvwlqbsde-vm-uxwzj above, worse at L4-L5, as outlined. 2.Transitional anatomy as noted above. The report is dictated by Addi Arambula MD, (resident care manager rn) Attending Physician: Dr. Magdalena Blackmon Garment Supervisor: Dr. Addi Arambula MD, (resident care manager rn) The procedure was performed by the: The acute care nursing assistant, and the attending radiologist was present [...] CT Cervical Post Myelogram (12/08/2024 10:25 AM FUR DRESSER) Anatomical Region Laterality Modality Spine Computed Tomogra phy 12/08/2024 1:17 PM FUR DRESSER Impressions 12/13/2024 12:15 PM FUR DRESSER IMPRESSION: 1.Successful lumbar puncture for cervical and [...] degenerative disc and joint disease as detailed gyfmm-yj-npvoe above, worse at L4-L5, as outlined. 2.Transitional anatomy as noted above. The report is dictated by Addi Arambula MD, (resident care manager rn) Attending Physician: Dr. Magdalena Blackmon Garment Supervisor: Dr. Addi Arambula MD, (resident care manager rn) The procedure was performed by the: The acute care nursing assistant, and the attending radiologist was present for all critical and mariscal portions of the procedure, and was immediately available to furnish services during the entire procedure. The attending radiologist performed the following procedural activities: Dr. Magdalena Gutiererz was there and supervised mariscal portions of the procedure, not scrubbed. Magdalena Gutierrez MD have personally reviewed and interpreted this examination/study. > Interpreting Provider: Magdalena Blackmon MD on 12/13/2024 12:15 PM Narrative 12/13/2024 12:15 PM FUR DRESSER PROCEDURE: FL MYELOGRAM 2 OR MORE REGIONS, CT LUMBAR POST MYELOGRAM, CT CERVICAL POST MYELOGRAM DATE/TIME OF EXAM: 12/08/2024 10:34 AM CLINICAL INFORMATION: PROCEDURE: FL MYELOGRAM 2 OR MORE REGIONS, CT LUMBAR POST MYELOGRAM, CT CERVICAL POST MYELOGRAM, DATE/TIME OF EXAM: 12/08/2024 10:34 AM, LOCATION [facility] INDICATION: M54.50: Lumbar spine pain ADDITIONAL CLINICAL INFORMATION: Ordering Provider Reason For Exam: myelopathy (accession [id number]), chronic low back pain (accession [id number]) Technologist Note: None. Additional: None. EXAMINATION: 1.Lumbar [...] The patient was then transferred to the family member caretaker unit for further observation and 2 hours [...] no high-grade central canal stenosis. There is lhlw-ey-czvgrfby facet osteoarthritis. There is mild bilateral neural foraminal stenosis. Procedure Note Magdalena Blackmon MD - 12/13/2024 PROCEDURE: FL MYELOGRAM 2 OR MORE REGIONS, CT LUMBAR POST MYELOGRAM, CT CERVICAL POST MYELOGRAM DATE/TIME OF EXAM: 12/08/2024 10:34 AM CLINICAL INFORMATION: PROCEDURE: FL MYELOGRAM 2 OR MORE REGIONS, CTLUMBAR POST MYELOGRAM, CT CERVICAL POST MYELOGRAM, DATE/TIME OF EXAM:12/08/2024 10:34 AM, LOCATION [facility] INDICATION: M54.50: Lumbar spine pain ADDITIONAL CLINICAL INFORMATION: Ordering Provider Reason For Exam: myelopathy (accession [id number]), chronic low back pain (accession [id number]) Technologist Note: None. Additional: None. EXAMINATION: 1.Lumbar [...] well. The patient wasthen transferred to the family member caretaker unit for further observation and 2hours of [...] island in the right aspect of the J8ogbeowzet body. Vertebral bodies are normal in height [...] is no high-grade central canal stenosis. Thereis xraz-qe-rbhglkbe facet osteoarthritis. There is mild bilateral neural [...] 1.Multilevel degenerative disc and joint disease as ylacfookfrqlo-th-irjug above, worse at L4-L5, as outlined. 2.Transitional anatomy as noted above. The report is dictated by Addi Arambula MD, (resident care manager rn) Attending Physician: Dr. Magdalena Blackmon Garment Supervisor: Dr. Addi Arambula MD, (resident care manager rn) The procedure was performed by the: The acute care nursing assistant, and the attending radiologist was present for allcritical and mariscal portions of the procedure, and [facility] during the entire procedure. The attending radiologist performed the following procedural activities: IDr. Magdalena was there and supervised mariscal portions of the procedure, not scrubbed. IMagdalena MD have personally reviewed and interpretedthis examination/study. > Interpreting Provider: Magdalena Blackmon MD on 12/13/2024 12:15 PM Cornelio Lima MD CT ORDERABLES Final Result * XR Lumbar Spine 2 or 3Vw (11/23/2024 10:00 AM FUR DRESSER) Anatomical Region Laterality Modality Spine Computed Radiogr aphy 11/23/2024 10:3 8 AM FUR DRESSER Impressions 11/23/2024 10:39 AM FUR DRESSER IMPRESSION: Mild to moderate degenerative changes. > Interpreting Provider: Baljinder Henson MD on 11/23/2024 10:39 AM Narrative 11/23/2024 10:39 AM FUR DRESSER PROCEDURE: XR LUMBAR SPINE 2 OR 3VW [...] DIAGNOSTIC IMAGING ORD ERABLES Final Result * ENDOSCOPY, COLON, SCREENING (11/11/2024 9:52 AM FUR DRESSER) Report Endoscopy POC Endoscopy Department Report _ [...] bowel preparation was evaluated using the BBPS ([place] Bowel Preparation Scale) with scores of: Right [...] non-mariscal portions. Procedure Code(s): --- Professional --- 95571, Colonoscopy, flexible; with removal of tumor(s), polyp(s), or other lesion(s) by snare technique 98856, 59, Colonoscopy, flexible; with biopsy, single or multiple Diagnosis Code(s): --- Professional --- Z86.010, Personal history of colonic polyps D12.2, Benign neoplasm of ascending colon D12.4, Benign neoplasm of descending colon K57.30, Diverticulosis of large intestine without perforation or abscess without bleeding CPT copyright 2021 [employer]. All rights reserved. The codes documented in this report are preliminary and upon cloud software engineer review may be revised to meet current compliance requirements. Sixto Cornell MD 11/11/2024 10:36:45 AM This report has been signed electronically. Note Initiated On: 11/11/2024 9:52 AM Number of Addenda: 0 [facility] [address] [facility] [place] [address] [facility] 11/11/2024 9:52 AM FUR DRESSER Sixto Cornell MD GI PROCEDURE ORDERABLES Edited Result - Final Performing Organization Address City/[facility] Co de Phone Number [facility] * HEMOGLOBIN A1C - POINT OF CARE (AMB) [facility] (04/04/2024 11:34 AM CDT) Hemoglobin A1c POCT 5.4 % [address] BLOOD SPECIMEN / Unknown 04/04/2024 11:34 AM CDT Kerry Coffman DO LAB - POINT OF CARE ORDERABL ES Final Result Performing Organization Address [facility] Co de Phone Number [facility] [address] [facility] [address] [facility] [place] [address], [place] [phone] * MICROALB/CREAT RATIO URINE RANDOM PANEL (02/05/2023 [...] within a diagnostic category. Test Performed at: [facility] [address] [place] [address] SAROJ FAUSTIN MD 02/05/2023 12:2 6 PM CDT 02/05/2023 12:27 PM CDT Marquise Adames MD LAB - URINE CHEMISTRY ORDERABL ES Final Result [facility] [address] [place] [address] from Last 3 Months or Most Recently Relevant to Health Maintenance Insurance [facility] [place] [address] [facility]NAGED MEDICARE ADV [facility] [place] [id number] [employer] MEDICARE ADV [facility] [place] [id number] Advance Directives * Full Code (Latest Code Status on File) Date Activated Date Inactivated Comments 08/29/2022 4:40 PM 08/31/2022 1:59 PM * Full Code Date Activated Date Inactivated Comments 03/17/2022 3:37 PM 03/19/2022 1:47 PM Care Teams Manual Arts Therapist Relationship Specialty Start Date End Date Kerry Coffman DO [address] [place] [address] PCP - General Internal Medicine 12/15/23 Kerry Coffman DO [address] [place] [address] PCP - [facility] P4P 12/10/24
--- OUTSIDE RECORDS SUMMARY | 2025-02-12 10:11 | XMS_ITS | Clinical Summary ---
Author Organization [facility] Address [address] [place] [phone] Care Team Providers Care Remediation Bioanalytics Consultant Name Role Phone Kerry Coffman Primary Care [...] 1 tablet (2 mg total) by mouth senior research manager before breakfast 4 Active azelastine (ASTELIN) [...] Department Care Team Description 11/21/2024 1:50 PM PAID INTERNSHIP - 11/21/2024 11:59 PM PAID INTERNSHIP Hospital Encounter [facility] Radiology at [facility] [address] [place] [address] Discharge Disposition: Discharge to home or self care 11/21/2024 1:20 PM PAID INTERNSHIP Office Visit [facility] Rheumatology [address] [facility] 2nd Floor [address] [place] [phone] Marialuisa Franklin NP Rheumatoid arthritis with negative rheumatoid factor, involving unspecified site (HCC) (Primary Dx); High risk medication use 11/15/2024 10:40 AM PAID INTERNSHIP - 11/15/2024 11:59 PM PAID INTERNSHIP Hospital Encounter [facility] [address] [place] [address] High risk medication use Discharge Disposition: Discharge to home or self care 11/15/2024 10:30 AM PAID INTERNSHIP Infusion [facility] Infusion Therapy [address] [facility] 2nd Floor [address] [place] [phone] Rheumatoid arthritis with negative rheumatoid factor, involving [...] on file Legal Sex Female 10:45 PM PAID INTERNSHIP Gender Identity Not on file Sexual Orientation Not on file Obstetrics History Last Filed Vital Signs Vital Sign Reading Time Taken Comments Blood Pressure 93/58 11/21/2024 1:01 PM PAID INTERNSHIP Pulse 63 11/21/2024 1:01 PM PAID INTERNSHIP Temperature 36.6 C (97.8 F) 11/21/2024 1:01 PM PAID INTERNSHIP Respiratory Rate - - Oxygen Saturation 99% 11/21/2024 1:01 PM PAID INTERNSHIP Inhaled Oxygen Concentration - - Weight 68 kg (150 lb) 11/21/2024 1:01 PM PAID INTERNSHIP Height 167.6 cm (5' 5.98 ) 11/21/2024 1:01 PM CS T Body Mass Index 24.22 11/21/2024 1:01 PM PAID INTERNSHIP Plan of Treatment Health Maintenance Due Date [...] Read Routine (OP Routine) 11/21/2024 2:04 PM PAID INTERNSHIP Rheumatoid arthritis with negative rheumatoid factor, involving unspecified site (HCC) XR HAND LEFT 3 OR MORE VIEWS Schedule Routine, Read Routine (OP Routine) 11/21/2024 2:04 PM PAID INTERNSHIP Rheumatoid arthritis with negative rheumatoid factor, involving unspecified site (HCC) XR WRIST RIGHT 3 OR MORE VIEWS Schedule Routine, Read Routine (OP Routine) 11/21/2024 2:04 PM PAID INTERNSHIP Rheumatoid arthritis with negative rheumatoid factor, involving unspecified site (HCC) XR WRIST LEFT 3 OR MORE VIEWS Schedule Routine, Read Routine (OP Routine) 11/21/2024 2:04 PM PAID INTERNSHIP Rheumatoid arthritis with negative rheumatoid factor, involving unspecified site (HCC) EGFR Routine 11/15/2024 1:46 PM PAID INTERNSHIP High risk medication use DIFFERENTIAL AUTO Routine 11/15/2024 1:4 6 PM PAID INTERNSHIP High risk medication use COMPREHENSIVE METABOLIC PANEL Routine 11/15/2024 1:46 PM PAID INTERNSHIP High risk medication use CBC WITH AUTO DIFFERENTIAL Routine 11/15/2024 1:46 PM PAID INTERNSHIP High risk medication use DEXA AXIAL SKELETON [...] 3 or More Views (11/21/2024 2:04 PM PAID INTERNSHIP) Anatomical Region Laterality Modality Upper Extremities, Hand Right Computed Radiography 11/21/2024 2:23 PM PAID INTERNSHIP Addenda Addendum by Pipe Valdivia MD on 11/22/2024 12:50 PM PAID INTERNSHIP ADDENDUM: Progressive polyarticular erosions involving the bilateral hands and wrists, most prominent in the carpus bilaterally. This is consistent with progressive inflammatory arthritis in this patient with known rheumatoid arthritis. Electronically signed by: Pipe Valdivia MD Impressions 11/21/2024 2:23 PM PAID INTERNSHIP 1. Healing fracture of the left 4th metacarpal shaft with shortening and mild ulnar displacement. 2. Polyarticular erosions involving the bilateral hands and wrists, most prominent in the carpus bilaterally. This is consistent with inflammatory arthritis. Statistically, this is most likely due to rheumatoid arthritis. Electronically signed by: Pipe Valdivia MD Narrative 11/21/2024 2:23 PM PAID INTERNSHIP EXAMINATION: XR WRIST LEFT 3 OR MORE [...] 3 or More Views (11/21/2024 2:04 PM PAID INTERNSHIP) Anatomical Region Laterality Modality Upper Extremities, Hand Left Computed Radiography 11/21/2024 2:23 PM PAID INTERNSHIP Addenda Addendum by Pipe Valdivia MD on 11/22/2024 12:50 PM PAID INTERNSHIP ADDENDUM: Progressive polyarticular erosions involving the bilateral hands and wrists, most prominent in the carpus bilaterally. This is consistent with progressive inflammatory arthritis in this patient with known rheumatoid arthritis. Electronically signed by: Pipe Valdivia MD Impressions 11/21/2024 2:23 PM PAID INTERNSHIP 1. Healing fracture of the left 4th metacarpal shaft with shortening and mild ulnar displacement. 2. Polyarticular erosions involving the bilateral hands and wrists, most prominent in the carpus bilaterally. This is consistent with inflammatory arthritis. Statistically, this is most likely due to rheumatoid arthritis. Electronically signed by: Pipe Valdivia MD Narrative 11/21/2024 2:23 PM PAID INTERNSHIP EXAMINATION: XR WRIST LEFT 3 OR MORE [...] by: Pipe Valdivia MD us Marialuisa Franklin NURSE TECH IMG XR PROCEDURES Edited R esult - Final * XR Wrist Right 3 or More Views (11/21/2024 2:04 PM PAID INTERNSHIP) Anatomical Region Laterality Modality Upper Extremities, Wrist Right Compute d Radiography 11/21/2024 2:23 PM PAID INTERNSHIP Addenda Addendum by Pipe Valdivia MD on 11/22/2024 12:50 PM PAID INTERNSHIP ADDENDUM: Progressive polyarticular erosions involving the bilateral hands and wrists, most prominent in the carpus bilaterally. This is consistent with progressive inflammatory arthritis in this patient with known rheumatoid arthritis. Electronically signed by: Pipe Valdivia MD Impressions 11/21/2024 2:23 PM PAID INTERNSHIP 1. Healing fracture of the left 4th metacarpal shaft with shortening and mild ulnar displacement. 2. Polyarticular erosions involving the bilateral hands and wrists, most prominent in the carpus bilaterally. This is consistent with inflammatory arthritis. Statistically, this is most likely due to rheumatoid arthritis. Electronically signed by: Pipe Valdivia MD Narrative 11/21/2024 2:23 PM PAID INTERNSHIP EXAMINATION: XR WRIST LEFT 3 OR MORE [...] 3 or More Views (11/21/2024 2:04 PM PAID INTERNSHIP) Anatomical Region Laterality Modality Upper Extremities, Wrist Left Compute d Radiography 11/21/2024 2:23 PM PAID INTERNSHIP Addenda Addendum by Pipe Valdivia MD on 11/22/2024 12:50 PM PAID INTERNSHIP ADDENDUM: Progressive polyarticular erosions involving the bilateral hands and wrists, most prominent in the carpus bilaterally. This is consistent with progressive inflammatory arthritis in this patient with known rheumatoid arthritis. Electronically signed by: Pipe Valdivia MD Impressions 11/21/2024 2:23 PM PAID INTERNSHIP 1. Healing fracture of the left 4th metacarpal shaft with shortening and mild ulnar displacement. 2. Polyarticular erosions involving the bilateral hands and wrists, most prominent in the carpus bilaterally. This is consistent with inflammatory arthritis. Statistically, this is most likely due to rheumatoid arthritis. Electronically signed by: Pipe Valdivia MD Narrative 11/21/2024 2:23 PM PAID INTERNSHIP EXAMINATION: XR WRIST LEFT 3 OR MORE [...] by: Pipe Valdivia MD us Marialuisa Franklin NP IMG XR PROCEDURES Edited R esult - Final * eGFR (11/15/2024 1:46 PM PAID INTERNSHIP) eGFR 67 >=60 mL/min/1. 73 m2 Comment: [...] last reviewed 2021. Blood 11/15/2024 1:46 PM PAID INTERNSHIP 11/15/2024 2:48 PM PAID INTERNSHIP us Marialuisa Franklin NP LAB BLOOD ORDERABLES Final Result [facility] Department of Laboratories [place], [place] [phone] * Differential, auto (11/15/2024 1:46 PM PAID INTERNSHIP) Neutrophil abs 3.2 1.5 - 6.5 K/cumm Imm gran abs 0.0 0.0 - 0.1 K/cumm [facility] Lymphocyte abs 1.1 0.8 - 3.3 K/cumm [facility] Monocyte abs 0.6 0.2 - 0.8 K/cumm [facility] Eosinophil abs 0.1 0.0 - 0.5 K/cumm [facility] Basophil abs 0.1 0.0 - 0.1 K/cumm [facility] Neutrophil pct 63.6 % [facility] Comment: Interpretive Data Percent cell count reference ranges are not reported, since discordance with absolute values may lead to misinterpretation of CBC data. Current Interpretive Data was last revised on 2018. Imm gran pct 0.4 % [facility] Comment: Interpretive Data Percent cell count reference ranges are not reported, since discordance with absolute values may lead to misinterpretation of CBC data. Current Interpretive Data was last revised on 2018. Lymphocyte pct 21.4 % [facility] Comment: Interpretive Data Percent cell count reference ranges are not reported, since discordance with absolute values may lead to misinterpretation of CBC data. Current Interpretive Data was last revised on 2018. Monocyte pct 11.4 % [facility] Comment: Interpretive Data Percent cell count reference ranges are not reported, since discordance with absolute values may lead to misinterpretation of CBC data. Current Interpretive Data was last revised on 2018. Eosinophil pct 2.0 % [facility] Comment: Interpretive Data Percent cell count reference ranges are not reported, since discordance with absolute values may lead to misinterpretation of CBC data. Current Interpretive Data was last revised on 2018. Basophil pct 1.2 % [facility] Comment: Interpretive Data Percent cell count reference ranges are not reported, since discordance with absolute values may lead to misinterpretation of CBC data. Current Interpretive Data was last revised on 2018. Blood 11/15/2024 1:46 PM PAID INTERNSHIP 11/15/2024 1:59 PM PAID INTERNSHIP Marialuisa Franklin NURSE TECH LAB BLOOD ORDERABLES Final Result Performing Organization Address [facility] de Phone Number [facility] Department [place] [address] * CBC with auto differential (11/15/2024 1:46 PM PAID INTERNSHIP) [facility] WBC 5.0 3.8 - 9.9 K/cumm Hgb 13.7 11.9 - 15.5 g/dL [facility] Hct 41.1 35.6 - 45.5 % [facility] Plt 256 150 - 400 K/cumm [facility] MPV 11.0 9.1 - 12.3 fL [facility] RBC 4.32 3.90 - 5.20 M/cumm [facility] MCV 95.1 81.3 - 96.4 fL [facility] MCH 31.7 27.1 - 33.3 pg [facility] MCHC 33.3 32.3 - 35.7 g/dL [facility] RDW CV 13.3 11.1 - 14.9 % [facility] RDW SD 47.1 35.7 - 48.1 fL [facility] NRBC abs 0.00 0.00 - 0.01 K/cumm [facility] Blood 11/15/2024 1:46 PM PAID INTERNSHIP 11/15/2024 1:59 PM PAID INTERNSHIP Marialuisa Franklin NURSE TECH LAB BLOOD ORDERABLES Final Result Performing Organization Address [facility] Co de Phone Number [facility] Department [place] [address] * Comprehensive metabolic panel (11/15/2024 1:46 PM PAID INTERNSHIP) [facility] Sodium 139 135 - 145 mmol/L Potassium, pl 4.5 3.3 - 4.9 mmol/L [facility] Chloride 103 97 - 110 mmol/L [facility] CO2 26 22 - 32 mmol/L [facility] Anion gap 10 2 - 15 mmol/L [facility] BUN 15 6 - 25 mg/dL [facility] Creatinine 0.92 0.60 - 1.10 mg/dL [facility] Glucose 105 70 - 199 mg/dL [facility] Comment: Interpretive Data Fasting glucose >/= 126 [...] 2022. Calcium 9.5 8.5 - 10.3 mg/dL [facility] Bilirubin, total 0.3 0.1 - 1.2 mg/dL [facility] Protein, pl 7.1 6.5 - 8.5 g/dL [facility] Albumin 4.3 3.5 - 5.0 g/dL [facility] Alk phos 121 40 - 130 Units/L [facility] ALT 19 7 - 45 Units/L [facility] AST 22 10 - 45 Units/L [facility] Blood 11/15/2024 1:46 PM PAID INTERNSHIP 11/15/2024 2:48 PM PAID INTERNSHIP us Marialuisa Franklin NURSE TECH LAB BLOOD ORDERABLES Final Result Performing Organization Address City/State/[facility] Co de Phone Number [facility] [place] [address] * Dexa Axial Skeleton Bone Density 1 [...] density scan were prepared by Parul Jimenez) CBDT who is accredited by the International Society of Clinical Densitometry. The overall patient assessment and scan interpretation were performed by Mar Orozco MD who is certified by the International Society of Clinical Densitometry. [id number] Marialuisa Franklin NP IMG DXA PROCEDURES Final R esult * Hepatitis panel, acute (05/24/2020 9:45 AM CDT) Hep A IgM Nonreactive Nonreactive [facility] Comment: Interpretive Data: If Hep A IgM Ab is reported as Equivocal, a new sample should be drawn in two weeks for testing. Current interpretive data was last revised on 19. Hep B core IgM Nonreactive Nonreactive [facility] Comment: Interpretive Data If HepB Core IgM Ab is reported as Equivocal, a new sample should be drawn in two weeks for testing. Current interpretive data was last revised on 19. Hep C Ab Nonreactive Nonreactive [facility] Comment:Antibodies to HCV no t detected. Does NOT exclude the possibility of recent exposure to HCV. HepBsAg Nonreactive Nonreactive [facility] Blood specimen (specimen) 05/24/2020 9:45 AM CDT 05/24/2020 12:08 PM CDT Marialuisa Franklin NP LAB MICROBIOLOGY - GENERAL ORDERABLES Edited Result - Final [facility] Department [place] [address] from Last 3 Months or Most Recently Relevant to Health Maintenance Insurance IDPA [facility] MEDICARE ADVANTAGE [facility] [employer] MEDICARE MEDICARE [facility] MEDICARE ADVANTAGE Care Teams Remediation Bioanalytics Consultant Relationship Specialty Start Date End Date Kerry Coffman DO [address] [place] [address] PCP - General Internal Medicine 04/19/24
--- OUTSIDE RECORDS SUMMARY | 2025-02-12 10:11 | XMS_ITS | Continuity of Care Document ---
Author Organization [facility] Address [address] [place] [address] Phone Care Team Providers Care Motorcycle Subassembly Repairer Name Role Phone Sandie Briggs MD Unavailable [...] Encounter [facility], [address], [place], [place], [address] , [place] tel: [phone] [facility] No Information [address], [place], [place], [address], [place]. [phone] OFFICE/OUTPATI ENT VISIT, EST [facility], [address], [place], [place], [address] , [place] tel: [phone] [facility] medication refill (chief complaint) Bipolar disorderHigh risk medication use 3 No Information [facility], [address], [place], [place], [address] , [place] tel: [phone] Dental Soulard Velasquez Dental examination 2 No Information OFFICE OUTPT EST 25 MIN [facility], [address], [place], [place], [address] , [place] tel: [phone] [facility] referrals (chief complaint)b ipolar disorder (chief complaint) Bipolar disorderAlcohol abuseRoutine adult health maintenanceNeed for prophylactic vaccination and inoculation against Streptococcus pneumoniae [pneumococcus]C ommon wart 2 No Information OFFICE/OUTPATI ENT VISIT, EST [facility], [address], [place], [place], [address] , [place] tel: [phone] [facility] test results (chief complaint) Genital herpes, unspecifiedBeni gn neoplasm of vulvaNeed for prophylactic vaccination and inoculation, influenza 2 No Information [facility], [address], [place], [place], [address] , [place] tel: [phone] Dental Soul[facility] Velasquez Dental examination 2 No Information OFFICE/OUTPATI ENT VISIT, EST [facility], [address], [place], [place], [address] , [place] tel: [phone] [facility] irritated spot on vulva (chief complaint) Benign neoplasm of vulva 2 No Information 1ST COMPRE PREV MED E/M NEW PT 40-64 [facility], [address], [place], [place], [address] , [place] tel: [phone] [facility] annual visit (chief complaint) Routine gynecological examination 2 No Information [facility], [address], [place], [place], [address] , [place] tel: [phone] [facility] Soul[facility]as[facility] No Information 1 No Information OFFICE OUTPT EST 25 MIN [facility], [address], [place], [place], [address] , [place] tel: [phone] [facility] pain (chief complaint)E R f/u (chief complaint) Other and unspecified alcohol dependence, continuous drinking behavior 1 No Information ENVIRONMENTAL IVNTJ MGMT PURPOSES PSYC PT [facility], [address], [place], [place], [address] , [place] tel: [phone] [facility] No Information 0 No Information FAMILY PSYCHOTHERAPY (CONJOINT PSYCHOTHERAPY) (WITH PATIENT PRESENT) [facility], [address], [place], [place], [address] , [place] tel: [phone] [facility] substance abuse (chief complaint) No Information 0 No Information OFFICE/OUTPATI ENT VISIT, EST [facility], [address], [place], [place], [address] , [place] tel: [phone] [facility] alcohol (chief complaint) Other and unspecified alcohol dependence, continuous drinking behavior 0 No Information OFFICE/OUTPATI ENT VISIT, EST [facility], [address], [place], [place], [address] , [place] tel: [phone] [facility] dizziness (chief complaint)a lcohol abuse (chief complaint) Other and unspecified alcohol dependence, continuous drinking behaviorDizzine ss and giddiness 0 No Information [facility], [address], [place], [place], [address] , [place] tel: [phone] [facility] depression (chief complaint) Major depressive affective disorder, recurrent episode, moderate degreeOther and unspecified alcohol dependence, continuous drinking behaviorUnspeci fied personality disorder 0 No Information OFFICE/OUTPATI ENT VISIT, NEW [facility], [address], [place], [place], [address] , [place] tel: [phone] [facility] REFERRED BY CASA DE DAY (chief complaint)M EDICATION NEEDED (chief complaint) Issue of repeat prescriptions 0 Juan Pablo [facility] [address], [place], [place], [address], [place]. [phone] [facility], [address], [place], [place], [address] , [place] tel: [phone] Care Guidelines Aly-0 1-190 1 No Information [...] ALT. Due on due Referral Referred To: [facility] Ordered: Referral: [facility]. Psychiatry. Evaluate and treat. ordered Referral Referred To: Josse Carrillo MD [address] [place], [place], [phone] Ordered: Referral: Josse Carrillo MD. Psychiatry. Evaluate and treat. ordered Referral Referred To: [facility] [address], [place], [phone] Ordered: Referral: [facility]. Radiology. Diagnostic testing. Appointment date/timeframe: 04/12/2012 ordered Referral Referred To: Anupam Sher MD [address] [place], [place], [phone] Ordered: Referral: Anupam Sher MD. Psychiatry. Appointment [...]
--- OUTSIDE RECORDS SUMMARY | 2025-02-12 10:11 | XMS_ITS | Encounter Summary ---
Author Organization [facility] Address [address] [facility] [place] [address] Care Team Providers Care Cutter Finisher Name Role Phone Meghna Kerry FRANKS Primary Care Provider [phone] Kerry Coffman DO Unavailable [phone] Reason for Visit * Reason Onset Date Comments MEDICATION REFILL 01/10/2025 Encounter Details Date Type Department Care Team (Late st Contact Info) Description 01/10/2025 Refill [facility] - Neurology [address] [place] [phone] Moncho Salcedo APRN-INTERMEDIATE MANAGER [address] [place] [phone] MEDICATION REFILL Social History Tobacco Use Types [...] Sex Assigned at Female 09/16/2024 2:41 PM PATIENT PARTNER Legal Sex Female 5:56 AM PATIENT PARTNER Gender Identity Female 09/16/2024 2:41 PM PATIENT PARTNER Sexual Orientation Straight 09/16/2024 2: 41 PM PATIENT PARTNER documented as of this encounter Functional Status [...] Description 03/02/2025 1:00 PM CDT Office Visit [facility] - Neurology [address] [place] [phone] Moncho Salcedo APRN-ARELY [address] [place] [address] [place] [address] 03/15/2025 10:30 AM CDT [facility] [address] [place] [phone] Cornelio Lima MD [address] [place] [address] 05/25/2025 1:15 PM CDT Office Visit [facility] - Ophthalmology [address] [place] [address], [place] [phone] Percy Matute MD [address] [place] [address] [place] [phone] 06/05/2025 8:30 AM CDT Office Visit [facility] - Internal Med [address] [place] [phone] Kerry Coffman DO [address] [place] [address] 2L DIV [place] [address] 08/16/2025 3:00 PM PATIENT PARTNER Office Visit [facility] - Allergy [address] [place] [phone] Papito Morales MD [address] [place] [address] 2L DIV OF ALLERGY/[place] [address] documented as of this encounter Goals Goal Patient Goal Type Associated Problems Recent Progress Patient-Stated? Author Medication Management General On track( 025 10:42 AM PATIENT PARTNER) Marion Scott, RN Note: Expected end date: ongoing Interventions: Take all medications as prescribed documented as of this encounter Visit Diagnoses Diagnosis Cognitive decline Unspecified persistent mental disorders due to conditions classified elsewhere documented in this encounter Care Teams Cutter Finisher Relationship Specialty Start Date End Date Kerry Coffman DO [facility] [place] [address] PCP - General Internal Medicine 12/15/23 Kerry Coffman DO [address]L DIV [place] [address] PCP - [facility] P4P 12/10/24 documented as of this encounter
--- OUTSIDE RECORDS SUMMARY | 2025-02-12 10:11 | XMS_ITS | Referral Summary ---
Author Organization [facility] Address [address] [place] [id number] Care Team Providers Care Vacuum Extractor Operator Name Role Phone Kerry Coffman DO Primary Care Provider Encounters Date Type Department Care Team Description 11/21/2024 1:50 PM ENVIRONMENTAL ENGINEERING ASSISTANT - 11/21/2024 11:59 PM ENVIRONMENTAL ENGINEERING ASSISTANT Hospital Encounter [facility] Radiology at [facility] [address] [place] [phone] Discharge Disposition: Discharge to home or self care 11/21/2024 1:20 PM ENVIRONMENTAL ENGINEERING ASSISTANT Office Visit [facility] Rheumatology [address] [facility] 2nd [address] [place] [address] Marialuisa Franklin, SAMI Rheumatoid arthritis with negative rheumatoid factor, involving unspecified site (HCC) (Primary Dx); High risk medication use 11/15/2024 10:40 AM ENVIRONMENTAL ENGINEERING ASSISTANT - 11/15/2024 11:59 PM ENVIRONMENTAL ENGINEERING ASSISTANT Hospital Encounter [address] [address] High risk medication use Discharge Disposition: Discharge to home or self care 11/15/2024 10:30 AM ENVIRONMENTAL ENGINEERING ASSISTANT Infusion [facility] Infusion Therapy [address] [facility] 2[address] [place] [address] Rheumatoid arthritis with negative rheumatoid factor, involving [...] 1 tablet (2 mg total) by mouth owner oral surgeon before breakfast 4 Active azelastine (ASTELIN) 137 [...] on file Legal Sex Female 10:45 PM ENVIRONMENTAL ENGINEERING ASSISTANT Gender Identity Not on file Sexual Orientation Not on file Last Filed Vital Signs Vital Sign Reading Time Taken Comments Blood Pressure 93/58 11/21/2024 1:01 PM ENVIRONMENTAL ENGINEERING ASSISTANT Pulse 63 11/21/2024 1:01 PM ENVIRONMENTAL ENGINEERING ASSISTANT Temperature 36.6 C (97.8 F) 11/21/2024 1:01 PM ENVIRONMENTAL ENGINEERING ASSISTANT Respiratory Rate - - Oxygen Saturation 99% 11/21/2024 1:01 PM ENVIRONMENTAL ENGINEERING ASSISTANT Inhaled Oxygen Concentration - - Weight 68 kg (150 lb) 11/21/2024 1:01 PM ENVIRONMENTAL ENGINEERING ASSISTANT Height 167.6 cm (5' 5.98 ) 11/21/2024 1:01 PM CS T Body Mass Index 24.22 11/21/2024 1:01 PM ENVIRONMENTAL ENGINEERING ASSISTANT Plan of Treatment Not on file Procedures Procedure Name Priority Date/Time Associated Diagnosis Comments XR HAND RIGHT 3 OR MORE VIEWS Schedule Routine, Read Routine (OP Routine) 11/21/2024 2:04 PM ENVIRONMENTAL ENGINEERING ASSISTANT Rheumatoid arthritis with negative rheumatoid factor, involving unspecified site (HCC) XR HAND LEFT 3 OR MORE VIEWS Schedule Routine, Read Routine (OP Routine) 11/21/2024 2:04 PM ENVIRONMENTAL ENGINEERING ASSISTANT Rheumatoid arthritis with negative rheumatoid factor, involving unspecified site (HCC) XR WRIST RIGHT 3 OR MORE VIEWS Schedule Routine, Read Routine (OP Routine) 11/21/2024 2:04 PM ENVIRONMENTAL ENGINEERING ASSISTANT Rheumatoid arthritis with negative rheumatoid factor, involving unspecified site (HCC) XR WRIST LEFT 3 OR MORE VIEWS Schedule Routine, Read Routine (OP Routine) 11/21/2024 2:04 PM ENVIRONMENTAL ENGINEERING ASSISTANT Rheumatoid arthritis with negative rheumatoid factor, involving unspecified site (HCC) EGFR Routine 11/15/2024 1:46 PM ENVIRONMENTAL ENGINEERING ASSISTANT High risk medication use DIFFERENTIAL AUTO Routine 11/15/2024 1:4 6 PM ENVIRONMENTAL ENGINEERING ASSISTANT High risk medication use COMPREHENSIVE METABOLIC PANEL Routine 11/15/2024 1:46 PM ENVIRONMENTAL ENGINEERING ASSISTANT High risk medication use CBC WITH AUTO DIFFERENTIAL Routine 11/15/2024 1:46 PM ENVIRONMENTAL ENGINEERING ASSISTANT High risk medication use DEXA AXIAL SKELETON [...] 3 or More Views (11/21/2024 2:04 PM ENVIRONMENTAL ENGINEERING ASSISTANT) Anatomical Region Laterality Modality Upper Extremities, Hand Right Computed Radiography 11/21/2024 2:23 PM ENVIRONMENTAL ENGINEERING ASSISTANT Addenda Addendum by Pipe Valdivia MD on 11/22/2024 12:50 PM ENVIRONMENTAL ENGINEERING ASSISTANT ADDENDUM: Progressive polyarticular erosions involving the bilateral hands and wrists, most prominent in the carpus bilaterally. This is consistent with progressive inflammatory arthritis in this patient with known rheumatoid arthritis. Electronically signed by: Pipe Valdivia MD Impressions 11/21/2024 2:23 PM ENVIRONMENTAL ENGINEERING ASSISTANT 1. Healing fracture of the left 4th metacarpal shaft with shortening and mild ulnar displacement. 2. Polyarticular erosions involving the bilateral hands and wrists, most prominent in the carpus bilaterally. This is consistent with inflammatory arthritis. Statistically, this is most likely due to rheumatoid arthritis. Electronically signed by: Pipe Valdivia MD Narrative 11/21/2024 2:23 PM ENVIRONMENTAL ENGINEERING ASSISTANT EXAMINATION: XR WRIST LEFT 3 OR MORE [...] signed by: Pipe Valdivia MD Marialuisa Franklin SECOND RIGGER IMG XR PROCEDURES Edited R esult - Final * XR Hand Left 3 or More Views (11/21/2024 2:04 PM ENVIRONMENTAL ENGINEERING ASSISTANT) Anatomical Region Laterality Modality Upper Extremities, Hand Left Computed Radiography 11/21/2024 2:23 PM ENVIRONMENTAL ENGINEERING ASSISTANT Addenda Addendum by Pipe Valdivia MD on 11/22/2024 12:50 PM ENVIRONMENTAL ENGINEERING ASSISTANT ADDENDUM: Progressive polyarticular erosions involving the bilateral hands and wrists, most prominent in the carpus bilaterally. This is consistent with progressive inflammatory arthritis in this patient with known rheumatoid arthritis. Electronically signed by: Pipe Valdivia MD Impressions 11/21/2024 2:23 PM ENVIRONMENTAL ENGINEERING ASSISTANT 1. Healing fracture of the left 4th metacarpal shaft with shortening and mild ulnar displacement. 2. Polyarticular erosions involving the bilateral hands and wrists, most prominent in the carpus bilaterally. This is consistent with inflammatory arthritis. Statistically, this is most likely due to rheumatoid arthritis. Electronically signed by: Pipe Valdivia MD Narrative 11/21/2024 2:23 PM ENVIRONMENTAL ENGINEERING ASSISTANT EXAMINATION: XR WRIST LEFT 3 OR MORE [...] signed by: Pipe Valdivia MD Marialuisa Franklin SECOND RIGGER IMG XR PROCEDURES Edited R esult - Final * XR Wrist Right 3 or More Views (11/21/2024 2:04 PM ENVIRONMENTAL ENGINEERING ASSISTANT) Anatomical Region Laterality Modality Upper Extremities, Wrist Right Compute d Radiography 11/21/2024 2:23 PM ENVIRONMENTAL ENGINEERING ASSISTANT Addenda Addendum by Pipe Valdivia MD on 11/22/2024 12:50 PM ENVIRONMENTAL ENGINEERING ASSISTANT ADDENDUM: Progressive polyarticular erosions involving the bilateral hands and wrists, most prominent in the carpus bilaterally. This is consistent with progressive inflammatory arthritis in this patient with known rheumatoid arthritis. Electronically signed by: Pipe Valdivia MD Impressions 11/21/2024 2:23 PM ENVIRONMENTAL ENGINEERING ASSISTANT 1. Healing fracture of the left 4th metacarpal shaft with shortening and mild ulnar displacement. 2. Polyarticular erosions involving the bilateral hands and wrists, most prominent in the carpus bilaterally. This is consistent with inflammatory arthritis. Statistically, this is most likely due to rheumatoid arthritis. Electronically signed by: Pipe Valdivia MD Narrative 11/21/2024 2:23 PM ENVIRONMENTAL ENGINEERING ASSISTANT EXAMINATION: XR WRIST LEFT 3 OR MORE [...] 3 or More Views (11/21/2024 2:04 PM ENVIRONMENTAL ENGINEERING ASSISTANT) Anatomical Region Laterality Modality Upper Extremities, Wrist Left Compute d Radiography 11/21/2024 2:23 PM ENVIRONMENTAL ENGINEERING ASSISTANT Addenda Addendum by Pipe Valdivia MD on 11/22/2024 12:50 PM ENVIRONMENTAL ENGINEERING ASSISTANT ADDENDUM: Progressive polyarticular erosions involving the bilateral hands and wrists, most prominent in the carpus bilaterally. This is consistent with progressive inflammatory arthritis in this patient with known rheumatoid arthritis. Electronically signed by: Pipe Valdivia MD Impressions 11/21/2024 2:23 PM ENVIRONMENTAL ENGINEERING ASSISTANT 1. Healing fracture of the left 4th metacarpal shaft with shortening and mild ulnar displacement. 2. Polyarticular erosions involving the bilateral hands and wrists, most prominent in the carpus bilaterally. This is consistent with inflammatory arthritis. Statistically, this is most likely due to rheumatoid arthritis. Electronically signed by: Pipe Valdivia MD Narrative 11/21/2024 2:23 PM ENVIRONMENTAL ENGINEERING ASSISTANT EXAMINATION: XR WRIST LEFT 3 OR MORE [...] - Final * eGFR (11/15/2024 1:46 PM ENVIRONMENTAL ENGINEERING ASSISTANT) eGFR 67 >=60 mL/min/1. 73 m2 Comment: [...] last reviewed 2021. Blood 11/15/2024 1:46 PM ENVIRONMENTAL ENGINEERING ASSISTANT 11/15/2024 2:48 PM ENVIRONMENTAL ENGINEERING ASSISTANT us Marialuisa Franklin NP LAB BLOOD ORDERABLES Final Result [facility] [place] [address] * Differential, auto (11/15/2024 1:46 PM ENVIRONMENTAL ENGINEERING ASSISTANT) Neutrophil abs 3.2 1.5 - 6.5 K/cumm Imm gran abs 0.0 0.0 - 0.1 K/cumm [facility] Lymphocyte abs 1.1 0.8 - 3.3 K/cumm [facility] Monocyte abs 0.6 0.2 - 0.8 K/cumm [facility] Eosinophil abs 0.1 0.0 - 0.5 K/cumm [facility] Basophil abs 0.1 0.0 - 0.1 K/cumm [facility] Neutrophil pct 63.6 % [facility] Comment: Interpretive Data Percent cell count reference ranges are not reported, since discordance with absolute values may lead to misinterpretation of CBC data. Current Interpretive Data was last revised on 2018. Imm gran pct 0.4 % [facility] Comment: Interpretive Data Percent cell count reference ranges are not reported, since discordance with absolute values may lead to misinterpretation of CBC data. Current Interpretive Data was last revised on 2018. Lymphocyte pct 21.4 % [facility] Comment: Interpretive Data Percent cell count reference ranges are not reported, since discordance with absolute values may lead to misinterpretation of CBC data. Current Interpretive Data was last revised on 2018. Monocyte pct 11.4 % [facility] Comment: Interpretive Data Percent cell count reference ranges are not reported, since discordance with absolute values may lead to misinterpretation of CBC data. Current Interpretive Data was last revised on 2018. Eosinophil pct 2.0 % [facility] Comment: Interpretive Data Percent cell count reference ranges are not reported, since discordance with absolute values may lead to misinterpretation of CBC data. Current Interpretive Data was last revised on 2018. Basophil pct 1.2 % [facility] Comment: Interpretive Data Percent cell count reference ranges are not reported, since discordance with absolute values may lead to misinterpretation of CBC data. Current Interpretive Data was last revised on 2018. Blood 11/15/2024 1:46 PM ENVIRONMENTAL ENGINEERING ASSISTANT 11/15/2024 1:59 PM ENVIRONMENTAL ENGINEERING ASSISTANT Marialuisa Franklin SECOND RIGGER LAB BLOOD ORDERABLES Final Result Performing Organization Address City/[facility]/ZIP Co de Phone Number [facility] [place] [employer] [place] [address] * CBC with auto differential (11/15/2024 1:46 PM ENVIRONMENTAL ENGINEERING ASSISTANT) Pathologist [facility] WBC 5.0 3.8 - 9.9 K/cumm Hgb 13.7 11.9 - 15.5 g/dL [facility] Hct 41.1 35.6 - 45.5 % [facility] Plt 256 150 - 400 K/cumm [facility] MPV 11.0 9.1 - 12.3 fL [facility] RBC 4.32 3.90 - 5.20 M/cumm [facility] MCV 95.1 81.3 - 96.4 fL [facility] MCH 31.7 27.1 - 33.3 pg [facility] MCHC 33.3 32.3 - 35.7 g/dL [facility] RDW CV 13.3 11.1 - 14.9 % [facility] RDW SD 47.1 35.7 - 48.1 fL [facility] NRBC abs 0.00 0.00 - 0.01 K/cumm [facility] Blood 11/15/2024 1:46 PM ENVIRONMENTAL ENGINEERING ASSISTANT 11/15/2024 1:59 PM ENVIRONMENTAL ENGINEERING ASSISTANT Marialuisa Franklin SECOND RIGGER LAB BLOOD ORDERABLES Final Result Performing Organization Address City/[facility]/ZIP Co de Phone Number [facility] Department [place] [address] * Comprehensive metabolic panel (11/15/2024 1:46 PM ENVIRONMENTAL ENGINEERING ASSISTANT) Sodium 139 135 - 145 mmol/L Potassium, pl 4.5 3.3 - 4.9 mmol/L [facility] Chloride 103 97 - 110 mmol/L [facility] CO2 26 22 - 32 mmol/L [facility] Anion gap 10 2 - 15 mmol/L [facility] BUN 15 6 - 25 mg/dL [facility] Creatinine 0.92 0.60 - 1.10 mg/dL [facility] Glucose 105 70 - 199 mg/dL [facility] Comment: Interpretive Data Fasting glucose >/= [...] 2022. Calcium 9.5 8.5 - 10.3 mg/dL [facility] Bilirubin, total 0.3 0.1 - 1.2 mg/dL [facility] Protein, pl 7.1 6.5 - 8.5 g/dL [facility] Albumin 4.3 3.5 - 5.0 g/dL [facility] Alk phos 121 40 - 130 Units/L [facility] ALT 19 7 - 45 Units/L [facility] AST 22 10 - 45 Units/L [facility] Blood 11/15/2024 1:46 PM ENVIRONMENTAL ENGINEERING ASSISTANT 11/15/2024 2:48 PM ENVIRONMENTAL ENGINEERING ASSISTANT us Marialuisa Franklin NP LAB BLOOD ORDERABLES Final Result [facility] Department [place] [address] * Dexa Axial Skeleton Bone Density 1 or 2 Site (03/08/2024 9:24 AM CDT) Anatomical Region Laterality Modality Body N/A Radiographic Erna ging Narrative 03/08/2024 9:48 PM CDT Patient Name: Sheri Shin Date of : 1955 Date of scan: 03/08/2024 Bone mineral density was performed on a [employer] Discovery Densitometer. Based on machine cross-calibration and [...] by the International Society of Clinical Densitometry. [id number] Marialuisa Franklin NP IMG DXA PROCEDURES Final R esult * Hepatitis panel, acute (05/24/2020 9:45 AM CDT) Hep A IgM Nonreactive Nonreactive [facility] Comment: Interpretive Data: If Hep A IgM Ab is reported as Equivocal, a new sample should be drawn in two weeks for testing. Current interpretive data was last revised on 19. Hep B core IgM Nonreactive Nonreactive [facility] Comment: Interpretive Data If HepB Core IgM Ab is reported as Equivocal, a new sample should be drawn in two weeks for testing. Current interpretive data was last revised on 19. Hep C Ab Nonreactive Nonreactive [facility] Comment:Antibodies to HCV no t detected. Does NOT exclude the possibility of recent exposure to HCV. HepBsAg Nonreactive Nonreactive [facility] Blood specimen (specimen) 05/24/2020 9:45 AM CDT 05/24/2020 12:08 PM CDT Marialuisa Franklin NP LAB MICROBIOLOGY - GENERAL ORDERABLES Edited Result - Final [facility] Department [place] [address] from Last 3 Months or Most Recently Relevant to Health Maintenance Insurance IDPA [facility] MEDICARE ADVANTAGE [facility] Address: [address] [address] [place] [address] [facility] MEDICARE MEDICARE [facility] MEDICARE ADVANTAGE [facility] Address: [address] [address] [place] [address] Care Teams Vacuum Extractor Operator Relationship Specialty Start Date End Date Kerry Coffman DO [address] [place] [address] PCP - General Internal Medicine 04/19/24
== END 2025-02-12 10:08 | disposition home or self-care (01) ==
PROVIDERS: Visit Provider Physician Assistant Surgical
DX: S52.592D Other fractures of lower end of left radius, subsequent encounter for closed fracture with routine healing (principal); S62.305D Unspecified fracture of fourth metacarpal bone, left hand, subsequent encounter for fracture with routine healing; X58.XXXD Exposure to other specified factors, subsequent encounter
CPT/HCPCS: 73200

== ENCOUNTER 2025-02-21 11:58 | Emergency (ER) | payer MEDICARE, SELFPAY ==
--- NOTE | ~2025-02-21 | XR_ITS ---
EXAMINATION: XR hand LT min 3V DATE: 02/21/2025 12:49 INDICATION: Left hand pain post fall TECHNIQUE: Posteroanterior, oblique and lateral views of the left hand were obtained. COMPARISON: None. FINDINGS: Relatively advanced healing of an oblique fracture of the fourth metacarpal diaphysis with some short ening of the metacarpal but otherwise near-anatomic alignment. Less advanced healing of a comminuted, dorsally impacted extra articular fracture of the distal left radial metaphysis. No significant mendoza ge in 20 degrees dorsal angulation. There is some bridging callus formation however there is still re adily discernible lucency along the fracture plane. No significant change in 2 mm distraction of a no w chronic nonunited ulnar styloid avulsion fracture with smooth corticated margins. 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 There i s cortical discontinuity at the dorsal base of the second distal phalanx without evident correlate on the suspicious for age indeterminate fracture.. Diffuse osteopenia. Mild polyarticular osteoarthriti s involving the majority of the joints at the left hand and wrist. IMPRESSION: 1. Cortical discontinuity at the dorsal base of the second distal phalanx consistent with nondisplace d age-indeterminate fracture. 2. Healing extra articular fracture of the distal left radius with no significant change in 20 degree s dorsal angulation. 3. More advanced healing of a fourth metacarpal diaphyseal fracture in near-anatomic alignment. 4. No significant change in mild distraction of a chronic nonunited ulnar styloid avulsion fracture. 4. Diffuse osteopenia and mild polyarticular osteoarthritis throughout the left hand and wrist. Reviewed, dictated and finalized at location A. IMPRESSION: 1. Cortical discontinuity at the dorsal base of the second distal phalanx consi stent with nondisplaced age-indeterminate fracture. 2. Healing extra articular fracture of the distal left radius with no significa nt change in 20 degrees dorsal angulation. 3. More advanced healing of a fourth metacarpal diaphyseal fracture in near-kyle tomic alignment. 4. No significant change in mild distraction of a chronic nonunited ulnar stylo id avulsion fracture. 4. Diffuse osteopenia and mild polyarticular osteoarthritis throughout the left hand and wrist.
[2025-02-21 12:07] VITALS: BP 152/95; PULSE 81; RESP 16; TEMP 36.1; O2SAT 97
--- NOTE | 2025-02-21 12:26 | ED_ITS ---
HPI - Fall General Chief Complaint: Fall Stated Complaint: fall Time Seen by Provider: 02/21/25 12:34 Source: patient Mode of arrival: ambulatory Limitations: no limitations History of Present Illness HPI Narrative: 69-year-old female with history of frequent falls presented for complaint of left hand and wrist pain following a fall yesterday. She states she slipped and fell landing with the left arm underneath her body. Endorses pain to the right finger, across the top of the hand and the wrist. Patient had recent fracture to the left hand and wrist and is following with Orthopedics, and is currently wearing a Velcro wrist splint. Denies any other location of pain. Applying ice and taking Tylenol occasionally. Denies LOC, headache, dizziness, or neck pain. Related Data Home Medications ?Medication ?Instructions ?Recorded ?Confirmed ?Last Taken ?Type atorvastatin 20 mg tablet 1 mg PO DAILY 05/01/21 02/21/25 Unknown History gabapentin 100 mg capsule 200 mg PO Q12H 05/01/21 02/21/25 12/21/24 History lamotrigine 200 mg tablet 1 mg PO BID 05/01/21 02/21/25 12/21/24 History propranolol 120 mg capsule,24 1 mg PO DAILY 05/01/21 02/21/25 12/21/24 History hr,extended release sertraline 100 mg tablet 1 mg PO BID 05/01/21 02/21/25 12/21/24 History clonazepam 0.5 mg tablet 0.25 mg PO Q12H 12/08/21 02/21/25 12/21/24 History loratadine 10 mg tablet 10 mg PO DAILY 12/08/21 02/21/25 Unknown History sumatriptan succinate 100 mg tablet 100 mg PO DAILY 12/08/21 02/21/25 Unknown History calcium 300 mg-D3 20 mcg-magnesium 1 tablet PO DAILY 02/03/23 02/21/25 Unknown History 25 mg-coppr 0.5 [id number] tablet (Caltrate-D3 Plus Minerals) cyclobenzaprine 10 mg tablet 10 mg PO .pm PRN Pain, Moderate 02/03/23 02/21/25 Unknown History omeprazole 20 mg capsule,delayed 20 mg PO DAILY 02/03/23 02/21/25 Unknown History release azathioprine 50 mg tablet 25 mg PO DAILY 04/18/24 02/21/25 Unknown History alendronate 70 mg tablet 70 mg PO WEEKLY 07/21/24 02/02/25 Unknown History fluticasone propionate 50 2 spray intranasal DAILY 07/21/24 02/21/25 Unknown History mcg/actuation nasal spray,suspension azelastine 137 mcg (0.1 %) nasal 1 spray intranasal .PM 12/20/24 02/21/25 Unknown History spray hydroxychloroquine 200 mg tablet 200 mg PO HS 12/20/24 02/21/25 Unknown History latanoprost 0.005 % eye drops 1 drp EACH EYE QPM 12/20/24 02/21/25 Unknown History primidone 250 mg tablet 250 mg PO Q12H 12/20/24 02/21/25 Unknown History donepezil 10 mg tablet 10 mg PO DAILY 02/02/25 02/21/25 Unknown History galcanezumab-gnlm 120 mg/mL 120 mg subcut MONTHLY 02/02/25 02/21/25 Unknown History subcutaneous pen injector (Emgality Pen) Allergies Allergy/AdvReac Type Severity Reaction Status Date / Time Penicillins Allergy Severe Swelling Verified 02/21/25 12:16 Sulfa (Sulfonamide Allergy Intermediate Rash Verified 02/21/25 12:16 Antibiotics) Review of Systems Review of Systems: CONSTITUTIONAL: Denies body aches, fever, chills EYES: Denies visual changes ENT: Denies rhinorrhea, congestion CARDIOVASCULAR: Denies chest pain, palpitations, or edema. RESPIRATORY: Denies cough or dyspnea. SKIN: Denies rash, itching, or wounds. MUSCULOSKELETAL: reports left hand and wrist pain NEUROLOGIC: Denies headache, numbness, tingling, or weakness. All systems reviewed & are unremarkable except as noted in HPI and below PMFSH Past Medical History Medical History Restless leg syndrome Rheumatoid arthritis Arthritis Osteoporosis History of UTI Constipation Diarrhea High cholesterol History of falling Memory loss Chronic headaches Rib fracture Hx of migraines Diabetes Bipolar disorder Depression Anxiety Menopause History of alcohol abuse Sober for 9 years Bipolar depression Tremor hands HLD (hyperlipidemia) Surgical History Surgical History History of tonsillectomy History of hand surgery Left History of foot surgery Right x2 Family History Family History Father , Data 97 related to pneumonia Alzheimers disease Mother , Related to fall, Heart disease Unknown Hypertension Heart disease Diabetes mellitus High cholesterol Depression Arthritis Alcoholism Social History Social History (Updated 02/13/25 @ 14:54 by Darlyn Orozco MA) Social History: former smoker Smoking packs per day: 2 Smoking cigarettes per day: 40.0 Years smoked: 24 Smoking pack-years: 48.00 Smoking status: Former smoker Tobacco type: cigarettes Second hand tobacco smoke exposure: No Smoking end date: 10/12/96 Additional smoking assessment comments: Denies Alcohol intake: former Alcohol use details: Quit 14 yrs ago Substance use: never Substance use type: does not use Lack of Transportation: No Lack of Food: Never True Current Housing: I Have Housing Concerned About Future Housing: No Difficulty Paying Gas/Electric Bills: No Difficulty Paying for Meds: YES Currently Unemployed: No Education: Master's Degree or Higher Difficulty w/ Childcare or Family Care: No Living arrangements: with family Additional living arrangements comments: Roommate Additional occupation/education comments: Disable Gender identity (if verbalized by the patient): Female Sexual Orientation (if Verbalized by the Patient): Straight or Heterosexual Spiritual care concerns: No Comments At time of signature, I have reviewed and agree with nursing past medical, surgical, social and family history unless otherwise noted. Please see nursing chart for further information. There is no relevant family history pertinent to the presenting complaint Exam Narrative: GENERAL: Well-appearing CHEST: Speaks in full sentences. No respiratory distress. HEART: Regular rate and rhythm. Normal and equal peripheral pulses. EXTREMITIES: Left hand and wrist has normal strength and sensation, slightly decreased range of motion with flexion/extension of left wrist due to endorses pain with movement. No swelling or ecchymosis. Generalized tenderness. No open wounds, or obvious deformity; alignment normal, pulse palpable and equal bilaterally, skin warm, dry, pink. Capillary refill less than 3 seconds. SKIN: Warm, dry NEURO: Alert and oriented x3. involuntary tremors noted. PSYCH: Normal mood and affect Course Course Emergency Course: Patient is aware of diagnosis, understands and agrees to treatment plan. Anticipatory guidance given. Patient agrees to follow-up as directed and is aware of reasons to seek care at the emergency department. Portions of this record may have been created with voice recognition software Level of Care: Express Care Visit Vital Signs Vital signs: Vital Signs Temperature 97.0 F L 02/21/25 12:07 Pulse Rate 81 02/21/25 12:07 Respiratory Rate 16 02/21/25 12:07 Blood Pressure 152/95 H 02/21/25 12:07 Pulse Oximetry 97 02/21/25 12:07 Oxygen Delivery Room Air 02/21/25 12:07 Temperature 97.0 F L 02/21/25 12:07 Pulse Rate 81 02/21/25 12:07 Respiratory Rate 16 02/21/25 12:07 Blood Pressure 152/95 H 02/21/25 12:07 Pulse Oximetry 97 02/21/25 12:07 Oxygen Delivery Room Air 02/21/25 12:07 Reviewed MDM - Fall MDM Narrative Medical decision making narrative: Discussed physical exam findings and xray. No apparent new fx. Pt has splint in place from previous fractures. Pt has ortho to f/u. Advised supportive measures and signs/symptoms to go to the ER. Pt is appropriate for outpt treatment and f/u. Differential Diagnosis Differential diagnosis: Likely fracture of wrist and other (wrist sprain, strain, finger dislocation) Imaging Data Radiologist's impression: IMPRESSION: 1. Cortical discontinuity at the dorsal base of the second distal phalanx consistent with nondisplaced age-indeterminate fracture. 2. Healing extra articular fracture of the distal left radius with no significant change in 20 degrees dorsal angulation. 3. More advanced healing of a fourth metacarpal diaphyseal fracture in near- anatomic alignment. 4. No significant change in mild distraction of a chronic nonunited ulnar styloid avulsion fracture. 4. Diffuse osteopenia and mild polyarticular osteoarthritis throughout the left hand and wrist. Discharge Plan Discharge Clinical Impression: Frequent falls, Arm pain, left Patient Disposition: Home Condition: Stable Instructions: Antibiotic Form, Arm Fracture in Adults (ED) Additional Instructions: Rest, ice and elevate the Left arm. Avoid lifting, pushing, pulling etc.. Motrin or Tylenol every 8 hours. Keep your splint clean, dry and in place. Avoid falls, use cane or walker to assist. Go to the ER immediately for increased pain, tingling/numbness, swelling, redness,etc Follow up with your established Orthopedic Surgery in 3 days for further evaluation - please call today for an appointment. Patient Language: Mohawk Prescriptions: No Action azathioprine 50 mg tablet 25 mg PO DAILY alendronate 70 mg tablet 70 mg PO WEEKLY Patient Comments: Take on saturdays fluticasone propionate 50 mcg/actuation spray,suspension 2 spray INTRANASAL DAILY Patient Comments: HS donepezil 10 mg tablet 10 mg PO DAILY Emgality Pen 120 mg/mL pen injector 120 mg SUBCUT MONTHLY atorvastatin 20 mg tablet 1 mg PO DAILY Patient Comments: HS lamotrigine 200 mg tablet 1 mg PO BID sertraline 100 mg tablet 1 mg PO BID gabapentin 100 mg capsule 200 mg PO Q12H propranolol 120 mg capsule,extended release 24 hr 1 mg PO DAILY sumatriptan succinate 100 mg tablet 100 mg PO DAILY loratadine 10 mg tablet 10 mg PO DAILY clonazepam 0.5 mg tablet 0.25 mg PO Q12H Caltrate-D3 Plus Minerals 300 mg-800 unit -25 mg-0.5 mg tablet 1 tablet PO DAILY cyclobenzaprine 10 mg tablet 10 mg PO .pm PRN (Reason: Pain, Moderate) omeprazole 20 mg capsule,delayed release(DR/EC) 20 mg PO DAILY azelastine 137 mcg (0.1 %) spray,non-aerosol 1 spray INTRANASAL .PM hydroxychloroquine 200 mg tablet 200 mg PO HS Patient Comments: HS latanoprost 0.005 % drops 1 drp EACH EYE QPM primidone 250 mg tablet 250 mg PO Q12H Follow-up/Referrals: UNKNOWN,DOCTOR [Primary Care Provider] - Time of Disposition: 13:45
== END 2025-02-21 13:50 | disposition home or self-care (01) ==
PROVIDERS: Emergency Provider Nurse Practitioner Family
DX: M79.602 Pain in left arm (principal); R29.6 Repeated falls; G25.81 Restless legs syndrome; M06.9 Rheumatoid arthritis, unspecified; M19.90 Unspecified osteoarthritis, unspecified site; M81.0 Age-related osteoporosis without current pathological fracture; E78.00 Pure hypercholesterolemia, unspecified; E11.9 Type 2 diabetes mellitus without complications; E78.5 Hyperlipidemia, unspecified; F31.9 Bipolar disorder, unspecified; F41.9 Anxiety disorder, unspecified; Z87.891 Personal history of nicotine dependence
CPT/HCPCS: 73130; 99213; G0463

== ENCOUNTER 2025-03-14 12:25 | Emergency (ER) | payer MEDICARE, SELFPAY ==
--- NOTE | 2025-03-14 12:35 | ED.WOUNDLAC ---
HPI - Wound/Laceration General Chief Complaint: Wound/Laceration Stated Complaint: Right Foot Wounds Time Seen by Provider: 03/14/25 12:40 Source: patient, RN notes reviewed and old records reviewed Mode of arrival: ambulatory Limitations: no limitations History of Present Illness HPI narrative: 69-year-old female presents to the [facility] with concerns for to wounds to her right foot. States that she was doing yoga on a rug and scraped the top of her foot and top of her toe. Has been putting antibiotic ointment as well as pouring peroxide on it. Patient is a diabetic. Patient states that happened several days ago unsure of exact day Related Data Home Medications ?Medication ?Instructions ?Recorded ?Confirmed ?Last Taken ?Type atorvastatin 20 mg tablet 1 mg PO DAILY 05/01/21 02/21/25 Unknown History gabapentin 100 mg capsule 200 mg PO Q12H 05/01/21 02/21/25 12/21/24 History lamotrigine 200 mg tablet 1 mg PO BID 05/01/21 02/21/25 12/21/24 History propranolol 120 mg capsule,24 1 mg PO DAILY 05/01/21 02/21/25 12/21/24 History hr,extended release sertraline 100 mg tablet 1 mg PO BID 05/01/21 02/21/25 12/21/24 History clonazepam 0.5 mg tablet 0.25 mg PO Q12H 12/08/21 02/21/25 12/21/24 History loratadine 10 mg tablet 10 mg PO DAILY 12/08/21 02/21/25 Unknown History sumatriptan succinate 100 mg tablet 100 mg PO DAILY 12/08/21 02/21/25 Unknown History calcium 300 mg-D3 20 mcg-magnesium 1 tablet PO DAILY 02/03/23 02/21/25 Unknown History 25 mg-coppr 0.5 [id number] tablet (Caltrate-D3 Plus Minerals) cyclobenzaprine 10 mg tablet 10 mg PO .pm PRN Pain, Moderate 02/03/23 02/21/25 Unknown History omeprazole 20 mg capsule,delayed 20 mg PO DAILY 02/03/23 02/21/25 Unknown History release azathioprine 50 mg tablet 25 mg PO DAILY 04/18/24 02/21/25 Unknown History alendronate 70 mg tablet 70 mg PO WEEKLY 07/21/24 02/02/25 Unknown History fluticasone propionate 50 2 spray intranasal DAILY 07/21/24 02/21/25 Unknown History mcg/actuation nasal spray,suspension azelastine 137 mcg (0.1 %) nasal 1 spray intranasal .PM 12/20/24 02/21/25 Unknown History spray hydroxychloroquine 200 mg tablet 200 mg PO HS 12/20/24 02/21/25 Unknown History latanoprost 0.005 % eye drops 1 drp EACH EYE QPM 12/20/24 02/21/25 Unknown History primidone 250 mg tablet 250 mg PO Q12H 12/20/24 02/21/25 Unknown History donepezil 10 mg tablet 10 mg PO DAILY 02/02/25 02/21/25 Unknown History galcanezumab-gnlm 120 mg/mL 120 mg subcut MONTHLY 02/02/25 02/21/25 Unknown History subcutaneous pen injector (Emgality Pen) Allergies Allergy/AdvReac Type Severity Reaction Status Date / Time Penicillins Allergy Severe Swelling Verified 03/14/25 12:27 Sulfa (Sulfonamide Allergy Intermediate Rash Verified 03/14/25 12:27 Antibiotics) Review of Systems Review of Systems: All systems reviewed & are unremarkable except as noted in HPI and below Constitutional: Constitutional: Reports no additional constitutional complaints ENT: Reports system reviewed and no additional complaints, except as documented Cardiovascular: Cardiovascular: Reports no additional cardiovascular complaints, Denies chest pain and Denies dyspnea Respiratory: Respiratory: Reports no additional respiratory complaints, Denies chest congestion, Denies cough and Denies dyspnea Musculoskeletal: Musculoskeletal: Reports no additional musculoskeletal complaints Integumentary/Breasts: Skin/Breast: Reports as per HPI PMF Past Medical History Medical History Restless leg syndrome Rheumatoid arthritis Arthritis Osteoporosis History of UTI Constipation Diarrhea High cholesterol History of falling Memory loss Chronic headaches Rib fracture Hx of migraines Diabetes Bipolar disorder Depression Anxiety Menopause History of alcohol abuse Sober for 9 years Bipolar depression Tremor hands HLD (hyperlipidemia) Surgical History Surgical History History of tonsillectomy History of hand surgery Left History of foot surgery Right x2 Family History Family History Father , Data 97 related to pneumonia Alzheimers disease Mother , Related to fall, Heart disease Unknown Hypertension Heart disease Diabetes mellitus High cholesterol Depression Arthritis Alcoholism Social History Social History Social History: former smoker Smoking packs per day: 2 Smoking cigarettes per day: 40.0 Years smoked: 24 Smoking pack-years: 48.00 Smoking status: Former smoker Tobacco type: cigarettes Second hand tobacco smoke exposure: No Smoking end date: 10/12/96 Additional smoking assessment comments: Denies Alcohol intake: former Alcohol use details: Quit 14 yrs ago Substance use: never Substance use type: does not use Lack of Transportation: No Lack of Food: Never True Current Housing: I Have Housing Concerned About Future Housing: No Difficulty Paying Gas/Electric Bills: No Difficulty Paying for Meds: YES Currently Unemployed: No Education: Master's Degree or Higher Difficulty w/ Childcare or Family Care: No Living arrangements: with family Additional living arrangements comments: Roommate Additional occupation/education comments: Disable Gender identity (if verbalized by the patient): Female Sexual Orientation (if Verbalized by the Patient): Straight or Heterosexual Spiritual care concerns: No Comments At the time of my signature, I reviewed and agree with the nursing past medical, surgical, social, and family history. There is no relevant family history pertinent to the patient complaint. Exam Const: General: cooperative, healthy appearing, comfortable, no acute distress, well developed, alert and well nourished Nutritional Appearance: well nourished Orientation/consciousness: patient oriented x3 Limitations: no limitations HENMT: Head: normal to inspection Eyes: General: appearance normal, both eyes and all related structures Alignment and Position: alignment normal Neck: Neck: normal visual inspection, full ROM, no lymphadenopathy and no meningeal signs Chest: Chest palpation & inspection: normal inspection of the chest Resp: Effort & Inspection: normal respiratory effort and able to speak in complete sentences Cardio: Rate: regular rate Skin: General skin exam: normal color and no rashes or lesions noted Full body images:  1. 1st metacarpal, 1 x 1 abrasion open. 2. Dorsal aspect great toe, 1 x 1 cm open wound, abrasion Neuro: General: patient oriented x3, gait normal, moves all extremities and no meningeal signs Cognition (Neuro): normal cognition Speech: normal speech Gait exam (Neuro): Normal gait present Extrem: General: normal to inspection, full ROM, capillary refill normal and normal gait Psych: Appearance: grossly normal and well kempt Mental Status: mental status grossly normal Speech and movement: Normal speech and movement present and Clear speech present Affect: normal affect Attitude: cooperative Course Course Level of Care: Express Care Visit Vital Signs Vital signs: Vital Signs Temperature 99.0 F 03/14/25 12:37 Pulse Rate 70 03/14/25 12:37 Respiratory Rate 16 03/14/25 12:37 Blood Pressure 103/62 03/14/25 12:37 Pulse Oximetry 97 03/14/25 12:37 Oxygen Delivery Room Air 03/14/25 12:37 Temperature 99.0 F 03/14/25 12:37 Pulse Rate 70 03/14/25 12:37 Respiratory Rate 16 03/14/25 12:37 Blood Pressure 103/62 03/14/25 12:37 Pulse Oximetry 97 03/14/25 12:37 Oxygen Delivery Room Air 03/14/25 12:37 Reviewed MDM - Wound/Laceration MDM Narrative Medical decision making narrative: Patient's presents with open wounds x2 to the foot. Diabetic. Cover with an antibiotic. Most likely on healing due to poor in peroxide on the wounds. Discussed importance of following up with primary care provider do to being diabetic. Patient appropriate for outpatient treatment with close follow-up Discharge instructions reviewed with patient, as well as provided in writing per nursing staff. The instructions also include specific and strict return/GO TO THE ER as well as f/u information. All questions have been answered, and the patient deny any further questions with discharge and discharge plan. Some parts of this dictation were generated by voice recognition software and may contain typographical and/or grammatical inaccuracies. Differential Diagnosis Differential diagnosis: Likely laceration, abscess, abrasion and avulsion of skin Lab Data Labs: Lab Results 03/14/25 Range/Units 12:43 POC Capillary Glucose 123 H (65-105) mg/dl Reviewed Critical Care Time Critical Care Time Critical Care Time: No Discharge Plan Discharge Clinical Impression: Wound, open, foot Qualifiers: Encounter type: initial encounter Laterality: right Qualified Code(s): S91.301A - Unspecified open wound, right foot, initial encounter Patient Disposition: Home Condition: Stable Instructions: Antibiotic Form, Acute Wounds (ED) Additional Instructions: Wash area with warm soapy water, pat dry. Keep covered when not at home. When wound at home try leaving open to air for several hours a day. Do not pour peroxide on your wound. Follow-up with your diabetic doctor for a wound check in 1 week For new or worsening symptoms go directly to the emergency room Patient Language: Israeli Prescriptions: New doxycycline monohydrate 100 mg tablet 100 mg PO BID Qty: 14 0RF No Action azathioprine 50 mg tablet 25 mg PO DAILY alendronate 70 mg tablet 70 mg PO WEEKLY Patient Comments: Take on saturdays fluticasone propionate 50 mcg/actuation spray,suspension 2 spray INTRANASAL DAILY Patient Comments: HS donepezil 10 mg tablet 10 mg PO DAILY Emgality Pen 120 mg/mL pen injector 120 mg SUBCUT MONTHLY atorvastatin 20 mg tablet 1 mg PO DAILY Patient Comments: HS lamotrigine 200 mg tablet 1 mg PO BID sertraline 100 mg tablet 1 mg PO BID gabapentin 100 mg capsule 200 mg PO Q12H propranolol 120 mg capsule,extended release 24 hr 1 mg PO DAILY sumatriptan succinate 100 mg tablet 100 mg PO DAILY loratadine 10 mg tablet 10 mg PO DAILY clonazepam 0.5 mg tablet 0.25 mg PO Q12H Caltrate-D3 Plus Minerals 300 mg-800 unit -25 mg-0.5 mg tablet 1 tablet PO DAILY cyclobenzaprine 10 mg tablet 10 mg PO .pm PRN (Reason: Pain, Moderate) omeprazole 20 mg capsule,delayed release(DR/EC) 20 mg PO DAILY azelastine 137 mcg (0.1 %) spray,non-aerosol 1 spray INTRANASAL .PM hydroxychloroquine 200 mg tablet 200 mg PO HS Patient Comments: HS latanoprost 0.005 % drops 1 drp EACH EYE QPM primidone 250 mg tablet 250 mg PO Q12H Follow-up/Referrals: Kerry Coffman [Other] - 1 Week ([facility] care follow up ) Time of Disposition: 12:52
[2025-03-14 12:37] VITALS: BP 103/62; PULSE 70; RESP 16; TEMP 37.2; O2SAT 97
[2025-03-14 12:48] LABS: Glucose Point of Care 123 mg/dl (65-105)
== END 2025-03-14 13:00 | disposition home or self-care (01) ==
PROVIDERS: Emergency Provider Nurse Practitioner
DX: S91.301A Unspecified open wound, right foot, initial encounter (principal); E11.9 Type 2 diabetes mellitus without complications; M06.9 Rheumatoid arthritis, unspecified; Z87.891 Personal history of nicotine dependence; X58.XXXA Exposure to other specified factors, initial encounter; Y93.42 Activity, yoga
CPT/HCPCS: 82948; 99213; G0463

== ENCOUNTER → 2025-03-27 14:19 | Outpatient (REF) | payer MEDICARE, SELFPAY ==
--- NOTE | 2025-03-27 14:19 | S_PTH ---
PATIENT: Sheri Shin LOC: [facility] U#:[id number] AGE/SX: 70/F ROOM: RE03/27/[address]: Corry Ellsworth PA-C : 1955 BED: DIS: SPEC #: [id number] RECD: 03/28/25 07:14 STATUS: AISSATOU RE #: [id number] CLEMENTINA: 03/27/25 14:[address]: Corry Ellsworth DEPT: [facility] Surgical RECD BY: Teddy Puga ENTERED: 03/28/25 07:14 SP TYPE: Surgical OTHR DR: Crystal Coffman, RN Tissues: A - Skin Procedures: Hematoxylin and Eosin Stain Gross and Microscopic Level 4
--- OUTSIDE RECORDS SUMMARY | 2025-03-27 15:27 | XMS_ITS | Clinical Summary ---
Author Organization [facility] Address [address] [place] [address] Phone Care Team Providers Care Ct Scan Tech Name Role Phone Joan Robins MD [...] on file Legal Sex Female 10:36 AM [employer] Gender Identity Not on file Sexual Orientation Not on file Last Filed Vital Signs Vital Sign Reading Time Taken Comments Blood Pressure 125/81 10/21/2018 12:15 PM [employer] Pulse 72 10/21/2018 12:25 PM [employer] Temperature 36.3 C (97.3 F) 10/21/2018 11:32 AM [employer] Respiratory Rate 18 10/21/2018 12:25 PM [employer] Oxygen Saturation 99% 10/21/2018 12:25 PM [employer] Inhaled Oxygen Concentration - - Weight 60.3 kg (133 lb) 10/21/2018 11:32 AM [employer] Height 170.2 cm (5' 7) 10/21/2018 11:32 AM [employer] Body Mass Index 20.83 10/21/2018 11:32 AM [employer] Plan of Treatment Health Maintenance Due Date [...] age to complete this topic Insurance MEDICAID [employer] Care Teams Ct Scan Tech Relationship Specialty Start Date End Date Joan Robins MD [address] [place] [address] PCP - General Internal Medicine 10/21/18
== END ==
LOC: ANHLAB 14:19
PROVIDERS: Visit Provider Physician Assistant Surgical
DX: L57.0 Actinic keratosis (principal); L85.8 Other specified epidermal thickening
CPT/HCPCS: 88305

== ENCOUNTER 2025-03-28 22:45 | Observation (INO) | payer MEDICARE, SELFPAY ==
[2025-03-28] VITALS (9 sets, daily range): BP systolic 97–114; BP diastolic 64–71; PULSE 58–71; RESP 14–20; TEMP 36.6; O2SAT 88–98
--- NOTE | ~2025-03-28 | CT_ITS ---
History: Weakness, increased falls PROCEDURE: CT head without contrast. COMPARISON: 12/17/2024 TECHNIQUE: Axial imaging of the head performed from the skull base to the vertex without IV contrast. Sagittal a nd coronal reformations obtained. DLP: 681 mGy-cm FINDINGS: The ventricles are normal in size, shape and position. Bilateral brain stimulators are redemonstrated in their expected positions. There is no mass, mass effect or midline shift. There is no abnormal extra-axial fluid collection or intracranial hemorrhage. Visualized paranasal sinuses are clear. The mastoid air cells are well aerated. No acute displaced fractures within the overlying cranium. Impression: No acute intracranial hemorrhage or suspicious mass effect. Reviewed, dictated and finalized at location A. Impression: No acute intracranial hemorrhage or suspicious mass effect.
--- NOTE | ~2025-03-28 | XR_ITS ---
AP view of the pelvis Clinical history: Pain Findings: No acute fracture or dislocation is seen. Osseous alignment is anatomic. Bilateral hip and SI joint spaces are preserved. Soft tissues are unremarkable. Impression: No significant abnormality is seen. Reviewed, dictated and finalized at location M. Impression: No significant abnormality is seen.
--- NOTE | ~2025-03-28 | CT_ITS ---
History: Weakness and frequent falls PROCEDURE: CT cervical spine without intravenous contrast. COMPARISON: None TECHNIQUE: Multiple contiguous axial images of the cervical spine were performed without the administration of i ntravenous contrast. DLP: 147 mGy-cm FINDINGS: Straightening of the normal curvature of the cervical spine is identified. Diffuse bony demineralization is noted. Significant degenerative disease present, with osteophyte formation, disc space narrowing, endplate c hanges, subchondral cyst formation and facet arthropathy. No acute fractures are present. The bilateral lung apices are unremarkable. No soft tissue abnormality is appreciated. The airway is patent. Impression: Significant degenerative disease, without acute fracture. Reviewed, dictated and finalized at location A. Impression: Significant degenerative disease, without acute fracture.
--- NOTE | ~2025-03-28 | XR_ITS ---
Right Knee Technique: AP, lateral, and sunrise views were obtained. Clinical History: Pain Findings: No fracture or dislocation is seen. Osseous alignment is anatomic. Joint spaces are preserv ed, with minimal degenerative spurring at the medial joint line and at the inner margin of the latera l femoral condyle. Soft tissues are unremarkable. No joint effusion is seen. Impression: Minimal degenerative change, as above. Reviewed, dictated and finalized at location M. Impression: Minimal degenerative change, as above.
--- NOTE | ~2025-03-28 | XR_ITS ---
CHEST RADIOGRAPH, PA AND LATERAL CLINICAL HISTORY: weakness x 1 week . COMPARISON: 12/17/2024 TECHNIQUE: PA and lateral views of the chest. FINDINGS The left mid lung is partially obscured due to deep brain stimulator generator. Wires project over the right and left neck extending cranially. The remainder of the cardiomediastinal silhouette is otherwise unremarkable. The lungs are clear. IMPRESSION: No focal infiltrate or effusion. Reviewed, dictated and finalized at location A.
--- NOTE | ~2025-03-28 | XR_ITS ---
MODIFIED ESOPHAGRAM HISTORY: Coughing with liquids TECHNIQUE: Modified barium esophagram was performed on 03/31/2025. I administered fluoroscopy and perf ormed the exam with speech pathologist. Patient was seated for lateral fluoroscopic imaging for yanna stion of thin liquids, pudding, solids and quantified amounts, followed by thin liquids in uncontroll ed amounts. This was recorded on tape. A single fluoroscopic spot image was also recorded. The DAP fo r this procedure was 0.962 Gycm2. The amount of fluoroscopy time used during this procedure was 1.6 m inutes. FINDINGS: Oral stage: Adequate function. Pharyngeal stage: Adequate function. Cervical/esophageal stage: Adequate function. IMPRESSION: Patient tolerated regular consistency oral feedings in the upright position. Please luis elate with speech pathologist findings and specific feeding recommendations. Reviewed, dictated and finalized at location A. IMPRESSION: Patient tolerated regular consistency oral feedings in the upright position. Please correlate with speech pathologist findings and specific feedi ng recommendations.
--- NOTE | 2025-03-28 22:53 | ECG_ITS ---
Test Date: 2025-03-29 00:20:58 Measurements Intervals [place] Rate: 53 P: 260 MS: 366 QRS: 6 QRSD: 105 T: 32 QT: 478 QTc: 449 Interpretive Statements VERY POOR QUALITY ECG WITH BASELINE ELECTRICAL ARTIFACT PROBABLY SINUS BRADYCARDIA NO FURTHER INTERPRETATION IS POSSIBLE BORDERLINE ECG Compared to ECG 12/17/2024 12:23:13 HEART RATE HAS DECREASED Electronically Signed On 03-29-2025 08:48:19 CDT by Chris Kirk D.O.
[2025-03-28 23:11] LABS: Basophils Absolute Auto 0.1 K/mm3 (0.0-0.1); Eosinophils Absolute Auto 0.1 K/mm3 (0-0.3); Eosinophils Percent Auto 1.4 % (0-4.4); Hematocrit 37.5 % (37.0-47.0); Hemoglobin 12.3 g/dL (12.0-15.0); Immature Granulocyte Absolute 0.01 K/mm3 (0.00-0.031); Immature Granulocyte Percent A 0.2 % (0-0.5); Lymphocytes Absolute Auto 1.23 K/mm3 (0.9-3.2); Lymphocytes Percent Auto 25.3 % (18.3-44.2); Mean Corpuscular HGB Conc 32.8 g/dl (32-36); Mean Corpuscular Hemoglobin 31.4 pg (26-34); Mean Corpuscular Volume 95.7 fl (80-100); Mean Platelet Volume 9.4 fl (7.4-10.4); Monocytes Absolute Auto 0.6 K/mm3 (0.1-0.6); Monocytes Percent Auto 11.5 % (2.6-8.5); Neutrophils Absolute Auto 2.9 K/mm3 (1.3-6.7); Neutrophils Percent Auto 60.6 % (45.5-73.1); Platelet Count Result 214 k/mm3 (150-375); Red Blood Count 3.92 M/mm3 (4.2-5.4); Red Cell Distribution Width 13.3 % (11.5-14.5); White Blood Count 4.9 K/mm3 (4.5-10.0)
[2025-03-28 23:26] LABS: Add Urine Microscopic? YES; Appearance Urine Clear (Clear); Bacteria Urine None Seen /hpf; Bilirubin Urine Negative (Negative); Blood Urine Negative (Negative); Color Urine Yellow (Yellow); Glucose Urine UA Negative (Negative); Hyaline Casts Urine Present /lpf; Ketones Urine Trace mg/dL (Negative); Leukocyte Esterase Ur 1+ LEU/UL (Negative); Need Manual Microscopic Reviewed; Nitrate Urine Negative (Negative); Non Pathogenic Casts 0-2; Protein Urine Negative (Negative); RBC Urine 0-2 /hpf (0-2); Specific Grav Ur 1.017 (1.001-1.035); Squamous Epithelial Cell Urine None Seen /hpf (Few); Urobilinogen Urine 0.2 mg/dL (<2.0); WBC Urine 0-5 /hpf (0-3)
[2025-03-28 23:27] LABS: Alanine Aminotransferase 20 U/L (6-35); Albumin Level 4.2 g/dL (3.5-5.1); Alkaline Phosphatase 88 U/L (38-126); Anion Gap 9 mmol/L (4-12); Aspartate Amino Transferase 28 U/L (14-36); Bilirubin,Total 0.4 mg/dL (0.2-1.3); Blood Urea Nitrogen 16 mg/dL (7-17); Calcium 9.2 mg/dL (8.4-10.2); Carbon Dioxide 25 mmol/L (22-30); Chloride 101 mmol/L (98-107); Estimated CRCL calculation 44 ml/min; Estimated Glomerular Filt Rate 55; Glucose 90 mg/dL (65-110); Sodium 135 mmol/L (137-145)
[2025-03-28 23:28] LABS: INR 1.1; Prothrombin Time 14.2 Seconds (11.1-14.7)
[2025-03-28 23:30] LABS: Ethanol < 10 mg/dL (<10)
[2025-03-28 23:31] LABS: Amphetamine Screen Urine Negative (Negative); Barbiturate Screen Urine Positive (Negative); Benzodiazepines Screen Urine Positive (Negative); Cannabinoid Screen Urine Negative (Negative); Cocaine Screen Urine Negative (Negative); Methadone Screen Urine Negative (Negative); Opiate Screen Urine Negative (Negative); Phencyclidine Screen Urine Negative (Negative)
[2025-03-29] VITALS (21 sets, daily range): BP systolic 100–117; BP diastolic 60–85; PULSE 51–82; RESP 12–20; TEMP 36.2–36.7; O2SAT 95–100; BMI 22.4
--- NOTE | 2025-03-29 00:21 | ED_ITS ---
HPI - Fall General Chief Complaint: Fall <Loli Davison PA-C - Last Filed: 03/29/25 02:50> Stated Complaint: increased falls (x15) over 2D; legs weak <Loli Davison PA-C - Last Filed: 03/29/25 02:50> Time Seen by Provider: 03/28/25 22:55 <Loli Davison PA-C - Last Filed: 03/29/25 02:50> Source: patient <YASMANY Funk Last Filed: 03/29/25 02:50> Mode of arrival: EMS <YASMANY Funk Last Filed: 03/29/25 02:50> Limitations: no limitations <Loli Davison PA-C - Last Filed: 03/29/25 02:50> History of Present Illness HPI Narrative: This is a 69 year old female that presents to the ER for falls. Reports multiple ground level falls. Reports she starts to feel weak and falls. She has hit her head. She has not passed out. Denies chest pain, shortness of breath, palpitations, dizziness. <Loli Davison PA-C - Last Filed: 03/29/25 02:50> Related Data Home Medications: Home Medications ?Medication ?Instructions ?Recorded ?Confirmed ?Last Taken ?Type atorvastatin 20 mg tablet 1 mg PO DAILY 05/01/21 02/21/25 Unknown History gabapentin 100 mg capsule 200 mg PO Q12H 05/01/21 02/21/25 12/21/24 History lamotrigine 200 mg tablet 1 mg PO BID 05/01/21 02/21/25 12/21/24 History propranolol 120 mg capsule,24 1 mg PO DAILY 05/01/21 02/21/25 12/21/24 History hr,extended release sertraline 100 mg tablet 1 mg PO BID 05/01/21 02/21/25 12/21/24 History clonazepam 0.5 mg tablet 0.25 mg PO Q12H 12/08/21 02/21/25 12/21/24 History loratadine 10 mg tablet 10 mg PO DAILY 12/08/21 02/21/25 Unknown History sumatriptan succinate 100 mg tablet 100 mg PO DAILY 12/08/21 02/21/25 Unknown History calcium 300 mg-D3 20 mcg-magnesium 1 tablet PO DAILY 02/03/23 02/21/25 Unknown History 25 mg-coppr 0.5 [id number] tablet (Caltrate-D3 Plus Minerals) cyclobenzaprine 10 mg tablet 10 mg PO .pm PRN Pain, Moderate 02/03/23 02/21/25 Unknown History omeprazole 20 mg capsule,delayed 20 mg PO DAILY 02/03/23 02/21/25 Unknown History release azathioprine 50 mg tablet 25 mg PO DAILY 04/18/24 02/21/25 Unknown History alendronate 70 mg tablet 70 mg PO WEEKLY 07/21/24 02/02/25 Unknown History fluticasone propionate 50 2 spray intranasal DAILY 07/21/24 02/21/25 Unknown History mcg/actuation nasal spray,suspension azelastine 137 mcg (0.1 %) nasal 1 spray intranasal .PM 12/20/24 02/21/25 Unknown History spray hydroxychloroquine 200 mg tablet 200 mg PO HS 12/20/24 02/21/25 Unknown History latanoprost 0.005 % eye drops 1 drp EACH EYE QPM 12/20/24 02/21/25 Unknown History primidone 250 mg tablet 250 mg PO Q12H 12/20/24 02/21/25 Unknown History donepezil 10 mg tablet 10 mg PO DAILY 02/02/25 02/21/25 Unknown History galcanezumab-gnlm 120 mg/mL 120 mg subcut MONTHLY 02/02/25 02/21/25 Unknown History subcutaneous pen injector (Emgality Pen) <Loli Davison PA-C - Last Filed: 03/29/25 02:50> Allergies/Adverse Reactions: Allergies Allergy/AdvReac Type Severity Reaction Status Date / Time Penicillins Allergy Severe Swelling Verified 03/14/25 12:27 Sulfa (Sulfonamide Allergy Intermediate Rash Verified 03/14/25 12:27 Antibiotics) <Loli Davison PA-C - Last Filed: 03/29/25 02:50> Review of Systems 2 Review of Systems: All systems reviewed & are unremarkable except as noted in HPI and below <Loli Davison PA-C - Last Filed: 03/29/25 02:50> [facility] Past Medical History Medical History: Medical History Restless leg syndrome Rheumatoid arthritis Arthritis Osteoporosis History of UTI Constipation Diarrhea High cholesterol History of falling Memory loss Chronic headaches Rib fracture Hx of migraines Diabetes Bipolar disorder Depression Anxiety Menopause History of alcohol abuse Sober for 9 years Bipolar depression Tremor hands HLD (hyperlipidemia) <YASMANY Funk Last Filed: 03/29/25 02:50> Surgical History Surgical History: Surgical History History of tonsillectomy History of hand surgery Left History of foot surgery Right x2 <YASMANY Funk Last Filed: 03/29/25 02:50> Family History Family History: Family History Father , Data 97 related to pneumonia Alzheimers disease Mother , Related to fall, Heart disease Unknown Hypertension Heart disease Diabetes mellitus High cholesterol Depression Arthritis Alcoholism <YASMANY Funk Last Filed: 03/29/25 02:50> Social History Social History: Social History Social History: former smoker Smoking packs per day: 2 Smoking cigarettes per day: 40.0 Years smoked: 24 Smoking pack-years: 48.00 Smoking status: Former smoker Tobacco type: cigarettes Second hand tobacco smoke exposure: No Smoking end date: 10/12/96 Additional smoking assessment comments: Denies Alcohol intake: former Alcohol use details: Quit 14 yrs ago Substance use: never Substance use type: does not use Lack of Transportation: No Lack of Food: Never True Current Housing: I Have Housing Concerned About Future Housing: No Difficulty Paying Gas/Electric Bills: No Difficulty Paying for Meds: YES Currently Unemployed: No Education: Master's Degree or Higher Difficulty w/ Childcare or Family Care: No Living arrangements: with family Additional living arrangements comments: Roommate Additional occupation/education comments: Disable Gender identity (if verbalized by the patient): Female Sexual Orientation (if Verbalized by the Patient): Straight or Heterosexual Spiritual care concerns: No <Loli Davison PA-C - Last Filed: 03/29/25 02:50> Exam 2 Narrative: GENERAL: Well-appearing, well-nourished, and in no acute distress. HEAD: Normocephalic, atraumatic. EYES: EOMI. Right pupil is large, irregularly shaped ENT: Nares clear, no rhinorrhea or epistaxis. Mucous membranes moist. Oropharynx without tonsillar hypertrophy exudate or other lesions. Bilateral TMs pearly sharma non-bulging NECK: Supple. No adenopathy or masses. CHEST: Clear to auscultation. No respiratory distress. No wheezes rales or rhonchi HEART: Regular rate and rhythm. No murmur heard. Normal peripheral pulses. ABDOMEN: Soft, nontender, nondistended, normal active bowel sounds. EXTREMITIES: Normal range of motion. No edema or obvious deformity. SKIN: Warm, dry, no rash. NEURO: No focal deficits. Alert and oriented x3. CN II-XII grossly intact PSYCH: Normal mood and affect <Loli Davison PA-C - Last Filed: 03/29/25 02:50> Course Course Emergency Course: Patient and family updated on workup. They do not feel she is safe to go home. Will consult hospitalist for admission for PT/OT eval <Loli Davison PA-C - Last Filed: 03/29/25 02:50> ENVIRONMENTAL CONFLICT MANAGER/PA Physician Supervision This visit was performed by both a physician and an APC. I performed all aspects of the MDM as documented. Patient will be admitted to the hospital for likely placement given her level of debility and frequent falls. Patient has no traumatic injuries, hemodynamically stable and has no complaints during re- evaluations. She is safe and stable for admission to the hospital at this time after discussion with the hospitalist team. <Jose Malik MD - Last Filed: 03/29/25 02:32> Consultations Consultation #1: Spoke with hospitalist about patient and workup who accepts admission < Loli Davison PA-C - Last Filed: 03/29/25 02:50> Date: 03/29/25 <YASMANY Funk Last Filed: 03/29/25 02:50> Vital Signs Vital signs: Vital Signs Temperature 98 F 03/28/25 22:44 Pulse Rate 60 03/28/25 22:44 Respiratory Rate 15 03/28/25 22:44 Blood Pressure 114/69 03/28/25 22:44 Pulse Oximetry 98 03/28/25 22:44 Oxygen Delivery Room Air 03/28/25 22:44 Temperature 98 F 03/28/25 22:44 Pulse Rate 54 L 03/29/25 01:31 Respiratory Rate 17 03/29/25 01:31 Blood Pressure 107/72 03/29/25 01:31 Pulse Oximetry 96 03/29/25 01:16 Oxygen Delivery Room Air 03/28/25 22:44 <Loli Davison PA-C - Last Filed: 03/29/25 02:50> Vital Signs Temperature 98 F 03/28/25 22:44 Pulse Rate 60 03/28/25 22:44 Respiratory Rate 15 03/28/25 22:44 Blood Pressure 114/69 03/28/25 22:44 Pulse Oximetry 98 03/28/25 22:44 Oxygen Delivery Room Air 03/28/25 22:44 Temperature 98 F 03/28/25 22:44 Pulse Rate 54 L 03/29/25 01:31 Respiratory Rate 17 03/29/25 01:31 Blood Pressure 107/72 03/29/25 01:31 Pulse Oximetry 96 03/29/25 01:16 Oxygen Delivery Room Air 03/28/25 22:44 <Jose Malik MD - Last Filed: 03/29/25 02:32> MDM - Fall MDM Narrative Medical decision making narrative: Patient presents to the emergency department for multiple falls. History of movement disorder, balance issues. Reports over 10 falls in the last 2 days. Does not have any home health or currently participate in PT. she is afebrile nontoxic appearing. Her vitals are stable. She is neurologically intact at her baseline. Cbc metabolic panel without concerning findings. Urine without evidence of infection. CT brain and cervical spine without acute findings. Chest x-ray without acute cardiopulmonary abnormality. Pelvic x-ray without acute findings. Right knee x-ray without acute osseous abnormalities. Patient and family updated on workup. They do not feel she is safe to go home. Will consult hospitalist for admission for PT/OT eval. Spoke with hospitalist about patient and workup who accepts admission <Loli Davison PA-C - Last Filed: 03/29/25 02:50> Differential Diagnosis Differential diagnosis: Likely concussion without loss of consciousness and other (contusion, subdural hematoma, cervical spine fracture, failure to thrive, dehydration, electrolyte derangement, UTI) <Loli Davison PA-C - Last Filed: 03/29/25 02:50> Lab Data Attestation: I reviewed the patient's lab results. <Loli Davison PA-C - Last Filed: 03/29/25 02:50> Result diagrams: 03/28/25 22:58 03/28/25 22:58 <Loli Davison PA-C - Last Filed: 03/29/25 02:50> Labs: Lab Results 03/28/25 03/28/25 Range/Units 22:58 23:04 WBC 4.9 (4.5-10.0) K/mm3 RBC 3.92 L (4.2-5.4) M/mm3 Hgb 12.3 (12.0-15.0) g/dL Hct 37.5 (37.0-47.0) % MCV 95.7 (80-100) fl MCH 31.4 (26-34) pg MCHC 32.8 (32-36) g/dl RDW 13.3 (11.5-14.5) % Plt Count 214 (150-375) k/mm3 MPV 9.4 (7.4-10.4) fl Immature Gran % (Auto) 0.2 (0-0.5) % Neut % (Auto) 60.6 (45.5-73.1) % Lymph % (Auto) 25.3 (18.3-44.2) % [place] % (Auto) 11.5 H (2.6-8.5) % Eos % (Auto) 1.4 (0-4.4) % Baso % (Auto) 1.0 (0.2-1.2) % Lymph # (Auto) 1.23 (0.9-3.2) K/mm3 [place] # (Auto) 0.6 (0.1-0.6) K/mm3 Eos # (Auto) 0.1 (0-0.3) K/mm3 Baso # (Auto) 0.1 (0.0-0.1) K/mm3 Abs Immat Gran (auto) 0.01 (0.00-0.031) K/mm3 Absolute Neuts (auto) 2.9 (1.3-6.7) K/mm3 Absolute Nucleated RBC 0.000 (0.0-0.012) K/mm3 Nucleated RBC % 0.0 (0.0-0.2) % PT 14.2 (11.1-14.7) Seconds INR 1.1 APTT 31.0 (22.3-36.8) Seconds Sodium 135 L (137-145) mmol/L Potassium 4.0 (3.4-5.0) mmol/L Chloride 101 (98-107) mmol/L Carbon Dioxide 25 (22-30) mmol/L Anion Gap 9 (4-12) mmol/L BUN 16 (7-17) mg/dL Creatinine 1.00 (0.7-1.0) mg/dL Estim Creat Clear Calc 44 ml/min Estimated GFR 55 L (59 - ) Glucose 90 (65-110) mg/dL Calcium 9.2 (8.4-10.2) mg/dL Total Bilirubin 0.4 (0.2-1.3) mg/dL AST 28 (14-36) U/L ALT 20 (6-35) U/L Alkaline Phosphatase 88 (38-126) U/L Total Protein 7.0 (6.3-8.2) g/dL Albumin 4.2 (3.5-5.1) g/dL Urine Color Yellow (Yellow) Urine Appearance Clear (Clear) Urine pH 6.0 (5.0-9.0) Ur Specific [place] 1.017 (1.001-1.035) Urine Protein Negative (Negative) mg/dL Urine Glucose (UA) Negative (Negative) mg/dL Urine Ketones Trace H (Negative) mg/dL Ur Blood (Man) Negative (Negative) Urine Nitrate Negative (Negative) Urine Bilirubin Negative (Negative) Urine Urobilinogen 0.2 (<2.0) mg/dL Add Ur Microanalysis Reviewed Leukocyte Esterase Rfl 1+ H (Negative) KYLIE/UL Urine RBC 0-2 (0-2) /hpf Urine WBC 0-5 (0-3) /hpf Ur Squamous Epith Cells None seen (Few) /hpf Urine Bacteria None seen /hpf Urine Casts 0-2 Hyaline Casts Present (None) /lpf Urine Opiates Screen Negative (Negative) Urine Methadone Screen Negative (Negative) Ur Barbiturates Screen Positive A (Negative) Ur Phencyclidine Scrn Negative (Negative) Ur Amphetamine Screen Negative (Negative) U Benzodiazepines Scrn Positive A (Negative) Urine Cocaine Screen Negative (Negative) U Cannabinoids Screen Negative (Negative) Ethyl Alcohol < 10 (<10) mg/dL <Loli Davison PA-C - Last Filed: 03/29/25 02:50> Lab Results 03/28/25 03/28/25 Range/Units 22:58 23:04 WBC 4.9 (4.5-10.0) K/mm3 RBC 3.92 L (4.2-5.4) M/mm3 Hgb 12.3 (12.0-15.0) g/dL Hct 37.5 (37.0-47.0) % MCV 95.7 (80-100) fl MCH 31.4 (26-34) pg MCHC 32.8 (32-36) g/dl RDW 13.3 (11.5-14.5) % Plt Count 214 (150-375) k/mm3 MPV 9.4 (7.4-10.4) fl Immature Gran % (Auto) 0.2 (0-0.5) % Neut % (Auto) 60.6 (45.5-73.1) % Lymph % (Auto) 25.3 (18.3-44.2) % [place] % (Auto) 11.5 H (2.6-8.5) % Eos % (Auto) 1.4 (0-4.4) % Baso % (Auto) 1.0 (0.2-1.2) % Lymph # (Auto) 1.23 (0.9-3.2) K/mm3 [place] # (Auto) 0.6 (0.1-0.6) K/mm3 Eos # (Auto) 0.1 (0-0.3) K/mm3 Baso # (Auto) 0.1 (0.0-0.1) K/mm3 Abs Immat Gran (auto) 0.01 (0.00-0.031) K/mm3 Absolute Neuts (auto) 2.9 (1.3-6.7) K/mm3 Absolute Nucleated RBC 0.000 (0.0-0.012) K/mm3 Nucleated RBC % 0.0 (0.0-0.2) % PT 14.2 (11.1-14.7) Seconds INR 1.1 APTT 31.0 (22.3-36.8) Seconds Sodium 135 L (137-145) mmol/L Potassium 4.0 (3.4-5.0) mmol/L Chloride 101 (98-107) mmol/L Carbon Dioxide 25 (22-30) mmol/L Anion Gap 9 (4-12) mmol/L BUN 16 (7-17) mg/dL Creatinine 1.00 (0.7-1.0) mg/dL Estim Creat Clear Calc 44 ml/min Estimated GFR 55 L (59 - ) Glucose 90 (65-110) mg/dL Calcium 9.2 (8.4-10.2) mg/dL Total Bilirubin 0.4 (0.2-1.3) mg/dL AST 28 (14-36) U/L ALT 20 (6-35) U/L Alkaline Phosphatase 88 (38-126) U/L Total Protein 7.0 (6.3-8.2) g/dL Albumin 4.2 (3.5-5.1) g/dL Urine Color Yellow (Yellow) Urine Appearance Clear (Clear) Urine pH 6.0 (5.0-9.0) Ur Specific [place] 1.017 (1.001-1.035) Urine Protein Negative (Negative) mg/dL Urine Glucose (UA) Negative (Negative) mg/dL Urine Ketones Trace H (Negative) mg/dL Ur Blood (Man) Negative (Negative) Urine Nitrate Negative (Negative) Urine Bilirubin Negative (Negative) Urine Urobilinogen 0.2 (<2.0) mg/dL Add Ur Microanalysis Reviewed Leukocyte Esterase Rfl 1+ H (Negative) KYLIE/UL Urine RBC 0-2 (0-2) /hpf Urine WBC 0-5 (0-3) /hpf Ur Squamous Epith Cells None seen (Few) /hpf Urine Bacteria None seen /hpf Urine Casts 0-2 Hyaline Casts Present (None) /lpf Urine Opiates Screen Negative (Negative) Urine Methadone Screen Negative (Negative) Ur Barbiturates Screen Positive A (Negative) Ur Phencyclidine Scrn Negative (Negative) Ur Amphetamine Screen Negative (Negative) U Benzodiazepines Scrn Positive A (Negative) Urine Cocaine Screen Negative (Negative) U Cannabinoids Screen Negative (Negative) Ethyl Alcohol < 10 (<10) mg/dL <Jose Malik MD - Last Filed: 03/29/25 02:32> Imaging Data Radiologist's impression: ITS Impressions Head CT 03/28/25 23:58 Impression: No acute intracranial hemorrhage or suspicious mass effect. Cervical Spine CT 03/29/25 00:00 Impression: Significant degenerative disease, without acute fracture. Chest X-Ray 03/29/25 00:44 IMPRESSION: No focal infiltrate or effusion. Right knee x-ray: No acute fracture dislocation. Diffuse osseous demineralization. Osteochondral lesion of the lateral femoral condyle. Chest x-ray: No focal consolidation, pleural effusion or pneumothorax. No cardiomegaly. Bilateral stimulator device Pelvis x-ray: No acute fracture or dislocation <Loli Davison PA-C - Last Filed: 03/29/25 02:50> Critical Care Time Critical Care Time Critical Care Time: No <Loli Davison PA-C - Last Filed: 03/29/25 02:50> Discharge Plan Discharge Clinical Impression: Frequent falls, Generalized weakness Head injury Qualifiers: Encounter type: initial encounter Qualified Code(s): S09.90XA - Unspecified injury of head, initial encounter <Loli Davison PA-C - Last Filed: 03/29/25 02:50> Patient Disposition: Still a Patient <YASMANY Funk Last Filed: 03/29/25 02:50> Condition: Stable <YASMANY Funk Last Filed: 03/29/25 02:50> Patient Language: Romanian <YASMANY Funk Last Filed: 03/29/25 02:50> Prescriptions: No Action azathioprine 50 mg tablet 25 mg PO DAILY alendronate 70 mg tablet 70 mg PO WEEKLY Patient Comments: Take on saturdays fluticasone propionate 50 mcg/actuation spray,suspension 2 spray INTRANASAL DAILY Patient Comments: HS donepezil 10 mg tablet 10 mg PO DAILY Emgality Pen 120 mg/mL pen injector 120 mg SUBCUT MONTHLY atorvastatin 20 mg tablet 1 mg PO DAILY Patient Comments: HS lamotrigine 200 mg tablet 1 mg PO BID sertraline 100 mg tablet 1 mg PO BID gabapentin 100 mg capsule 200 mg PO Q12H propranolol 120 mg capsule,extended release 24 hr 1 mg PO DAILY sumatriptan succinate 100 mg tablet 100 mg PO DAILY loratadine 10 mg tablet 10 mg PO DAILY clonazepam 0.5 mg tablet 0.25 mg PO Q12H doxycycline monohydrate 100 mg tablet 100 mg PO BID Qty: 14 0RF Caltrate-D3 Plus Minerals 300 mg-800 unit -25 mg-0.5 mg tablet 1 tablet PO DAILY cyclobenzaprine 10 mg tablet 10 mg PO .pm PRN (Reason: Pain, Moderate) omeprazole 20 mg capsule,delayed release(DR/EC) 20 mg PO DAILY azelastine 137 mcg (0.1 %) spray,non-aerosol 1 spray INTRANASAL .PM hydroxychloroquine 200 mg tablet 200 mg PO HS Patient Comments: HS latanoprost 0.005 % drops 1 drp EACH EYE QPM primidone 250 mg tablet 250 mg PO Q12H <Loli Davison PA-C - Last Filed: 03/29/25 02:50> Follow-up/Referrals: Crystal Coffman RN [Primary Care Provider] - <Loli Davison PA-C - Last Filed: 03/29/25 02:50>
[2025-03-29 03:03] LABS: Glucose Point of Care 80 mg/dl (65-105)
--- NOTE | 2025-03-29 03:35 | ADMGEN ---
This patient, Sheri Shin, was admitted to Medical Room 246-. Patient/family oriented to hospital policies and general routines including ID bracelet, bed and alarms, visiting hours, pain management, procedures, bathroom and other care routines, personal items, smoking policy, room service/diet, and visiting hours. Information on how to activate the Rapid Response Team has been discussed. Patient/Family are encouraged to report perceived risks to care and to ask questions if they do not understand what they are told or what they should do.
[2025-03-29 08:12] LABS: Glucose Point of Care 86 mg/dl (65-105)
[2025-03-29 12:43] LABS: Glucose Point of Care 104 mg/dl (65-105)
--- NOTE | 2025-03-29 13:13 | PM.IMHP ---
H&P: HPI History of Present Illness Date/Time: 03/29/25 13:13 Chief Complaint: Extremiteis weakness and fall Narrative: 69-year-old female past medical history of osteoporosis, rheumatoid arthritis, restless legs syndrome, memory loss, migraine, type 2 diabetes, bipolar disorder, depression, anxiety, hyperlipidemia who presented to the ER after a fall. Patient reported she has been having worsening extremities weakness the past 6 months, however she noted for this admission she lost her balance and fell. Denies any dizziness, chest pain, SOB, abd pain, dysuria or diarrhea. ED eval vital signs stable and wnl, Labs mostly unremarkable, CT head, cervival spine, CXR, knee xray and pelvis xray were unremarkable. labs wnl. Review of Systems Review of Systems: All other systems were reviewed and negative except as noted in the HPI above Constitutional: Comments: General: alert and comfortable Eyes: EOMI, PERRLA ENNT External ears normal, Neck is supple, no masses, Respiratory systems: Clear to auscultation Cardiovascular S1, S2, normal rhythm, no murmur, rub, or gallop; no thrill or palpable murmurs on palpation. Gastrointestinal: soft, non-tender, and non-distended abdomen with no masses; BS present Skin: no rash, lesions, ulcerations, subcutaneous nodules or induration Musculoskeletal: no abnormality and no tenderness, normal ROM Neurologic: Alert and oriented x3, non focal Mental Status Exam: normal affect [facility] Past Medical History Medical History Restless leg syndrome Rheumatoid arthritis Arthritis Osteoporosis History of UTI Constipation Diarrhea High cholesterol History of falling Memory loss Chronic headaches Rib fracture Hx of migraines Diabetes Bipolar disorder Depression Anxiety Menopause History of alcohol abuse Sober for 9 years Bipolar depression Tremor hands HLD (hyperlipidemia) Surgical History Surgical History History of tonsillectomy History of hand surgery Left History of foot surgery Right x2 Family History Family History Father , Data 97 related to pneumonia Alzheimers disease Mother , Related to fall, Heart disease Unknown Hypertension Heart disease Diabetes mellitus High cholesterol Depression Arthritis Alcoholism Social History Social History Social History: former smoker Smoking packs per day: 2 Smoking cigarettes per day: 40.0 Years smoked: 24 Smoking pack-years: 48.00 Smoking status: Never smoker Tobacco type: cigarettes Second hand tobacco smoke exposure: No Smoking end date: 10/12/96 Additional smoking assessment comments: Denies Alcohol intake: never Alcohol use details: Quit 14 yrs ago Substance use: never Substance use type: does not use Do You Feel Safe in your Home?: Yes Lack of Transportation: No Lack of Food: Never True Current Housing: I Have Housing Concerned About Future Housing: No Difficulty Paying Gas/Electric Bills: No Difficulty Paying for Meds: No Currently Unemployed: No Education: Master's Degree or Higher Difficulty w/ Childcare or Family Care: No Living arrangements: with family Additional living arrangements comments: Roommate Additional occupation/education comments: Disable Gender identity (if verbalized by the patient): Female Sexual Orientation (if Verbalized by the Patient): Straight or Heterosexual Spiritual care concerns: No Meds Home Medications and Allergies Home Medications ?Medication ?Instructions ?Recorded ?Confirmed ?Type atorvastatin 20 mg tablet 1 mg PO DAILY 05/01/21 03/29/25 History gabapentin 100 mg capsule 200 mg PO Q12H 05/01/21 03/29/25 History lamotrigine 200 mg tablet 1 mg PO BID 05/01/21 03/29/25 History propranolol 120 mg capsule,24 1 mg PO DAILY 05/01/21 03/29/25 History hr,extended release sertraline 100 mg tablet 1 mg PO BID 05/01/21 03/29/25 History clonazepam 0.5 mg tablet 0.25 mg PO DAILY 12/08/21 03/29/25 History loratadine 10 mg tablet 10 mg PO DAILY 12/08/21 03/29/25 History sumatriptan succinate 100 mg tablet 100 mg PO BID PRN migraine headache 12/08/21 03/29/25 History calcium 300 mg-D3 20 mcg-magnesium 1 tablet PO DAILY 02/03/23 03/29/25 History 25 mg-coppr 0.5 [id number] tablet (Caltrate-D3 Plus Minerals) cyclobenzaprine 10 mg tablet 10 mg PO .pm PRN Pain, Moderate 02/03/23 03/29/25 History azathioprine 50 mg tablet 25 mg PO DAILY 04/18/24 03/29/25 History alendronate 70 mg tablet 70 mg PO WEEKLY 07/21/24 03/29/25 History fluticasone propionate 50 2 spray intranasal DAILY 07/21/24 03/29/25 History mcg/actuation nasal spray,suspension azelastine 137 mcg (0.1 %) nasal 1 spray intranasal .PM 12/20/24 03/29/25 History spray hydroxychloroquine 200 mg tablet 200 mg PO HS 12/20/24 03/29/25 History latanoprost 0.005 % eye drops 1 drp EACH EYE QPM 12/20/24 03/29/25 History primidone 250 mg tablet 250 mg PO Q12H 12/20/24 03/29/25 History abatacept (with maltose) 500 mg IV MONTHLY 03/29/25 03/29/25 History aripiprazole 2 mg tablet 2 mg PO DAILY 03/29/25 03/29/25 History loperamide 2 mg capsule (Imodium 2 mg PO Q6H PRN loose stool 03/29/25 03/29/25 History A-D) Allergies Allergy/AdvReac Type Severity Reaction Status Date / Time Penicillins Allergy Severe Swelling Verified 03/14/25 12:27 Sulfa (Sulfonamide Allergy Intermediate Rash Verified 03/14/25 12:27 Antibiotics) Vital Signs Vital Signs - 24 hr 03/28/25 22:44 03/28/25 22:49 03/28/25 22:51 Temperature 98 F Pulse Rate 60 Respiratory Rate 15 Blood Pressure 114/69 114/69 Pulse Oximetry 98 97 98 Oxygen Delivery Room Air 03/28/25 23:00 03/28/25 23:15 03/28/25 23:17 Temperature Pulse Rate 71 62 Respiratory Rate 20 15 Blood Pressure 104/71 Pulse Oximetry 96 94 93 Oxygen Delivery 03/28/25 23:29 03/28/25 23:30 03/28/25 23:31 Temperature Pulse Rate 58 L 60 59 L Respiratory Rate 16 14 16 Blood Pressure 104/71 97/64 L Pulse Oximetry 98 97 88 L Oxygen Delivery 03/29/25 00:17 03/29/25 00:19 03/29/25 00:30 Temperature Pulse Rate 55 L 55 L 53 L Respiratory Rate 12 Blood Pressure 116/78 Pulse Oximetry 99 99 Oxygen Delivery 03/29/25 00:31 03/29/25 00:45 03/29/25 00:46 Temperature Pulse Rate 54 L 56 L 55 L Respiratory Rate 15 12 15 Blood Pressure 115/78 100/70 Pulse Oximetry 96 99 Oxygen Delivery 03/29/25 01:00 03/29/25 01:01 03/29/25 01:15 Temperature Pulse Rate 54 L 56 L 54 L Respiratory Rate 12 15 14 Blood Pressure 111/85 Pulse Oximetry 95 98 96 Oxygen Delivery 03/29/25 01:16 03/29/25 01:30 03/29/25 01:31 Temperature Pulse Rate 54 L 54 L 54 L Respiratory Rate 17 16 17 Blood Pressure 116/67 107/72 Pulse Oximetry 96 Oxygen Delivery 03/29/25 02:56 03/29/25 03:16 03/29/25 03:40 Temperature 97.5 F L Pulse Rate 51 L 51 L 66 Respiratory Rate 14 15 16 Blood Pressure 109/77 104/64 100/66 Pulse Oximetry 97 96 98 Oxygen Delivery 03/29/25 05:36 03/29/25 07:50 03/29/25 08:00 Temperature 97.2 F L 97.4 F L Pulse Rate 60 52 L Respiratory Rate 16 16 20 Blood Pressure 108/68 109/70 Pulse Oximetry 96 96 98 Oxygen Delivery Room Air H&P: Results Labs Labs: Short CBC 03/28/25 Range/Units 22:58 WBC 4.9 (4.5-10.0) K/mm3 Hgb 12.3 (12.0-15.0) g/dL Hct 37.5 (37.0-47.0) % Plt Count 214 (150-375) k/mm3 BMP 03/28/25 22:58 Sodium 135 L Potassium 4.0 Chloride 101 Carbon Dioxide 25 BUN 16 Creatinine 1.00 Glucose 90 Calcium 9.2 Liver Function 03/28/25 Range/Units 22:58 Total Bilirubin 0.4 (0.2-1.3) mg/dL AST 28 (14-36) U/L ALT 20 (6-35) U/L Alkaline Phosphatase 88 (38-126) U/L Albumin 4.2 (3.5-5.1) g/dL Urine 03/28/25 Range/Units 23:04 Urine Color Yellow (Yellow) Urine Appearance Clear (Clear) Urine pH 6.0 (5.0-9.0) Ur Specific [place] 1.017 (1.001-1.035) Urine Protein Negative (Negative) mg/dL Urine Glucose (UA) Negative (Negative) mg/dL Assessment and Plan Assessment and plan (1) Frequent falls: Code(s): R29.6 - Repeated falls Status: Acute Plan Frequent falls Patient noted worsening extremities weakness although exam did not showed any focal deficits, patient insisted she is having worsenign extremities weakness Denies any dizziness, Lightheadedness and palpitations MRI brain and total spine ordered, B12/folate pending Neurology consulted PT/OT/ST Rheumatoid arthritis Continue home meds and above care plan DM2 SSi with accucheks and adjust with clinical course Chronic diarrhea noted diarrhea has been going the past few years cotnineu monitoring Migraine continue hem regimen DVT prophylaxis on Sq Lovenox Full code SDM: Rupal Abdul Sister Hospitalist [facility] Advance Care Plan I have confirmed that the patient's Advanced Care Plan is present, code status is documented, or surrogate decision maker is listed in patient medical record.: Yes Medication Reconciliation I have utilized all available resources to obtain, update and review the patients current medications (includes all prescriptions, OTC, herbals, cannabis, and nutritional supplements).: Yes
[2025-03-29 16:50] LABS: Glucose Point of Care 105 mg/dl (65-105)
[2025-03-29 17:24] LABS: Folic Acid 9.9 ng/mL (2.76->20)
[2025-03-29] MEDS: lamoTRIgine 100 MG TABLET 200 MG PO (17:52)
[2025-03-29] MEDS: SERTRALINE HCL 50 MG TABLET 100 MG PO (17:52)
[2025-03-29] MEDS: SUMAtriptan SUCCINATE 25 MG TABLET 100 MG PO (20:26)
[2025-03-29] MEDS: HYDROXYCHLOROQUINE SULFATE 200 MG TABLET PO (20:26)
[2025-03-29] MEDS: ATORVASTATIN 20 MG TABLET PO (20:27)
[2025-03-29 21:05] LABS: Glucose Point of Care 106 mg/dl (65-105)
[2025-03-30] VITALS (11 sets, daily range): BP systolic 94–149; BP diastolic 55–88; PULSE 57–88; RESP 16–20; TEMP 36.1–37; O2SAT 94–99
[2025-03-30] MEDS: SUMAtriptan SUCCINATE 25 MG TABLET 100 MG PO ×2 (02:49→16:46)
[2025-03-30 07:58] LABS: Glucose Point of Care 114 mg/dl (65-105)
[2025-03-30] MEDS: PROPRANOLOL HCL 60 MG CAPSULE CR 120 MG PO (09:02)
[2025-03-30] MEDS: ARIPiprazole 2 MG TABLET PO (09:03)
[2025-03-30] MEDS: SERTRALINE HCL 50 MG TABLET 100 MG PO ×2 (09:03→16:47)
[2025-03-30] MEDS: azaTHIOprine 25 MG TABLET PO (09:03)
[2025-03-30] MEDS: lamoTRIgine 100 MG TABLET 200 MG PO ×2 (09:05→16:47)
[2025-03-30] MEDS: ENOXAPARIN 40 MG/0.4 ML SYRINGE SUB-Q (09:08)
--- NOTE | 2025-03-30 12:06 | WPDNEURCNPN ---
Assessment and Plan Assessment and plan (1) Frequent falls: Code(s): R29.6 - Repeated falls Status: Acute (2) Ataxia: Code(s): R27.0 - Ataxia, unspecified Status: Acute (3) Essential tremor: Code(s): G25.0 - Essential tremor Status: Acute Assessment and Plan: patient has a deep brain stimulator in place on both sides and is under care of neurology services at [facility]. (4) Memory loss: Code(s): R41.3 - Other amnesia Status: Acute (5) Hx of migraines: Code(s): Z86.69 - Personal history of other diseases of the nervous system and sense organs Status: Acute (6) Rheumatoid arthritis: Code(s): M06.9 - Rheumatoid arthritis, unspecified Status: Acute (7) Diabetes: Code(s): E11.9 - Type 2 diabetes mellitus without complications Status: Acute (8) Bipolar depression: Code(s): F31.9 - Bipolar disorder, unspecified Status: Acute Plan I do not find any significant weakness in her lower limbs. The ankle was absent however reflects a 1 to 2/4. There is a mild diabetic polyneuropathy however this does not appear to be enough to get her to fall. She did not complain of any significant arthritic symptoms in the knees or hips or lower back. I noted that she is on number of medications which can contribute to occasional ataxia and fall. This will include Mysoline and also psychiatric medications. I do not see any significant dyskinesia or any parkinsonian features. We should encouraged her to work with physical therapy for gait strengthening. Since he sees various specialists such as psychiatrist and neurologist [facility] as well as a steel rule die maker apprentice the dose may modification be made by the appropriate specialist in that field in view of the multiple falls. EMG nerve can study of the lower limbs can be a consideration however I did not find any significant weakness proximal muscles. There is a mild findings distally suggestive peripheral neuropathy. Her serum B12 folic acid level were normal. She told me her hemoglobin A1c was under control. I would suggest that she should also discuss this with the neurologist [facility] in view of the multiple falls since he goes there for nearly all her neurological problems. Safety is important be emphasized. She is single but has 2 roommates. Consult date: 03/30/25 HPI: Sheri Shin is a 69 year old female with history of rheumatoid arthritis, migraine, diabetes mellitus, essential tremor, deep brain stimulation, cognitive impairment admitted to the hospital on account of having multiple falls. 1 of the fall and the head led to the fracture of the left wrist. Another fall in June 2024 has led to right knee injury. She states that when she is walking she does not know what exactly leads to the fall but her sister states that she gets in a hurry to walk. Patient also has history drinking alcohol until 9 years ago. She has a deep brain stimulator on both sides and she has follows up at [facility] from neurologic point of view. She is on medications for migraine and then she a. Besides that she is also on treatment for diabetes and rheumatoid arthritis she denies any incontinence of urine however she has some diarrhea. She states that sometimes he has hesitancy in micturition. No diplopia or difficulty speech or swallowing. She is able to take care of her own personal needs. She been asked to use a walker reasons. Physical therapist also working with her. Her diabetes has been under good control. Her most recent serum B12 folic acid level were also normal. Urine toxicology on admission was positive for barbiturates and benzodiazepines. Current list of medications were reviewed. These include Abilify, atorvastatin, azathioprine, hydroxychloroquine, lamotrigine, propranolol, sertraline sumatriptan. She also has been on Emgality monthly injections for migraine. Review of Systems Review of Systems: All systems reviewed & are unremarkable except as noted in HPI and below PMFSH Past Medical History Medical History (Updated 03/30/25 @ 12:20 by Shun Ross MD) Essential tremor Ataxia Restless leg syndrome Rheumatoid arthritis Arthritis Osteoporosis History of UTI Constipation Diarrhea High cholesterol History of falling Memory loss Chronic headaches Rib fracture Hx of migraines Diabetes Bipolar disorder Depression Anxiety Menopause History of alcohol abuse Sober for 9 years Bipolar depression Tremor hands HLD (hyperlipidemia) Surgical History Surgical History History of tonsillectomy History of hand surgery Left History of foot surgery Right x2 Family History Family History Father , Data 97 related to pneumonia Alzheimers disease Mother , Related to fall, Heart disease Unknown Hypertension Heart disease Diabetes mellitus High cholesterol Depression Arthritis Alcoholism Social History Social History Social History: former smoker Smoking packs per day: 2 Smoking cigarettes per day: 40.0 Years smoked: 24 Smoking pack-years: 48.00 Smoking status: Never smoker Tobacco type: cigarettes Second hand tobacco smoke exposure: No Smoking end date: 10/12/96 Additional smoking assessment comments: Denies Alcohol intake: never Alcohol use details: Quit 14 yrs ago Substance use: never Substance use type: does not use Do You Feel Safe in your Home?: Yes Lack of Transportation: No Lack of Food: Never True Current Housing: I Have Housing Concerned About Future Housing: No Difficulty Paying Gas/Electric Bills: No Difficulty Paying for Meds: No Currently Unemployed: No Education: Master's Degree or Higher Difficulty w/ Childcare or Family Care: No Living arrangements: with family Additional living arrangements comments: Roommate Additional occupation/education comments: Disable Gender identity (if verbalized by the patient): Female Sexual Orientation (if Verbalized by the Patient): Straight or Heterosexual Spiritual care concerns: No Meds Home Medications and Allergies Home Medications ?Medication ?Instructions ?Recorded ?Confirmed ?Type atorvastatin 20 mg tablet 1 mg PO DAILY 05/01/21 03/29/25 History gabapentin 100 mg capsule 200 mg PO Q12H 05/01/21 03/29/25 History lamotrigine 200 mg tablet 1 mg PO BID 05/01/21 03/29/25 History propranolol 120 mg capsule,24 1 mg PO DAILY 05/01/21 03/29/25 History hr,extended release sertraline 100 mg tablet 1 mg PO BID 05/01/21 03/29/25 History clonazepam 0.5 mg tablet 0.25 mg PO DAILY 12/08/21 03/29/25 History loratadine 10 mg tablet 10 mg PO DAILY 12/08/21 03/29/25 History sumatriptan succinate 100 mg tablet 100 mg PO BID PRN migraine headache 12/08/21 03/29/25 History calcium 300 mg-D3 20 mcg-magnesium 1 tablet PO DAILY 02/03/23 03/29/25 History 25 mg-coppr 0.5 [id number] tablet (Caltrate-D3 Plus Minerals) cyclobenzaprine 10 mg tablet 10 mg PO .pm PRN Pain, Moderate 02/03/23 03/29/25 History azathioprine 50 mg tablet 25 mg PO DAILY 04/18/24 03/29/25 History alendronate 70 mg tablet 70 mg PO WEEKLY 07/21/24 03/29/25 History fluticasone propionate 50 2 spray intranasal DAILY 07/21/24 03/29/25 History mcg/actuation nasal spray,suspension azelastine 137 mcg (0.1 %) nasal 1 spray intranasal .PM 12/20/24 03/29/25 History spray hydroxychloroquine 200 mg tablet 200 mg PO HS 12/20/24 03/29/25 History latanoprost 0.005 % eye drops 1 drp EACH EYE QPM 12/20/24 03/29/25 History primidone 250 mg tablet 250 mg PO Q12H 12/20/24 03/29/25 History abatacept (with maltose) 500 mg IV MONTHLY 03/29/25 03/29/25 History aripiprazole 2 mg tablet 2 mg PO DAILY 03/29/25 03/29/25 History loperamide 2 mg capsule (Imodium 2 mg PO Q6H PRN loose stool 03/29/25 03/29/25 History A-D) Allergies Allergy/AdvReac Type Severity Reaction Status Date / Time Penicillins Allergy Severe Swelling Verified 03/14/25 12:27 Sulfa (Sulfonamide Allergy Intermediate Rash Verified 03/14/25 12:27 Antibiotics) Vital Signs Vital Signs - 24 hr 03/29/25 13:37 03/29/25 16:00 03/29/25 20:00 Temperature 98 F 97.4 F L Pulse Rate 82 68 Respiratory Rate 20 16 Blood Pressure 110/60 117/73 Pulse Oximetry 100 95 Oxygen Delivery Room Air 03/29/25 20:00 03/30/25 00:00 03/30/25 04:00 Temperature 97.2 F L 97.4 F L Pulse Rate 59 L 60 Respiratory Rate 16 16 Blood Pressure 126/76 142/72 H Pulse Oximetry 97 98 Oxygen Delivery Room Air 03/30/25 08:24 03/30/25 09:02 03/30/25 09:08 Temperature Pulse Rate 60 Respiratory Rate 16 Blood Pressure Pulse Oximetry 98 Oxygen Delivery Room Air Room Air Exam Const: General: cooperative, well developed and alert Orientation/consciousness: patient oriented x3 HENMT: Head: atraumatic Mouth: Yes oropharynx normal Eyes: Alignment and Position: position normal Pupils: Equal, round and reactive pupils present EOM: EOMs intact bilaterally Neck: Neck: supple Resp: Effort & Inspection: normal respiratory effort Cardio: Rate: regular rate Rhythm: regular rhythm Skin: General skin exam: normal color Neuro: General: patient oriented x3 Cranial nerves: Yes CN's II-XII intact bilaterally, Yes facial sensation intact/muscles of mastication intact, Yes Equal, round and reactive pupils present, Yes facial symmetry and Yes Midline tongue present Cognition (Neuro): normal cognition Speech: normal speech Motor exam (neuro): 5/5 motor strength present throughout Coordination: [id number] test normal and Normal rapid alternating movements of the distal upper extremity present (Neuro) Other: No significant tremor or cogwheeling or involuntary movements were seen however during gait testing she was noted to be able to walk independently but she sometimes has the legs get mixed up and she could fall. Her gait appears fairly narrow based and no parkinsonian features were noted. Psych: Mental Status: mental status grossly normal Affect: normal affect Results Labs 03/28/25 22:58 03/28/25 22:58 Imaging Attestation: I personally reviewed and interpreted this imaging study as follows: ( CT scan of the head) My impression: artifact from deep brain stimulator were noted. No acute abnormalities. Radiologist's impression: PROCEDURE: CT head without contrast. COMPARISON: 12/17/2024 TECHNIQUE: Axial imaging of the head performed from the skull base to the vertex without IV contrast. Sagittal and coronal reformations obtained. DLP: 681 mGy-cm FINDINGS: The ventricles are normal in size, shape and position. Bilateral brain stimulators are redemonstrated in their expected positions. There is no mass, mass effect or midline shift. There is no abnormal extra-axial fluid collection or intracranial hemorrhage. Visualized paranasal sinuses are clear. The mastoid air cells are well aerated. No acute displaced fractures within the overlying cranium. Impression: No acute intracranial hemorrhage or suspicious mass effect. Reviewed, dictated and finalized at location A.
[2025-03-30 12:07] LABS: Glucose Point of Care 107 mg/dl (65-105)
--- NOTE | 2025-03-30 12:38 | PM.IMPN ---
Progress Note: A&P Assessment and Plan (1) Frequent falls: Code(s): R29.6 - Repeated falls Status: Acute Plan Frequent falls Patient noted worsening extremities weakness although exam did not showed any focal deficits, patient insisted she is having worsenign extremities weakness Denies any dizziness, Lightheadedness and palpitations B12 920 and Folate 9.9 Unable to do MRI brain and total spine ordered due to deep brain stimulator in brain Neurology eval noted and discussed with Dr Ross PT/OT/ST Rheumatoid arthritis Continue home meds and above care plan DM2 SSi with accucheks and adjust with clinical course Chronic diarrhea noted diarrhea has been going the past few years continue monitoring Migraine continue hem regimen Possible aspiration Speech consulted and MBS ordered monitor Essential tremors s/p DBS has mild tremors at baseline and some gait imbalance Neurology eval and noted that patient should continue outpatient PT DVT prophylaxis on Sq Lovenox Full code Subjective Date/time seen: 03/30/25 12:38 Interval history: Comfortable at bedside CT myelogram and MBS pending Review of Systems Review of Systems: All other systems were reviewed and negative except as noted in the HPI above Objective Data Vital Signs Vital Signs: Vital Signs - 24 hr 03/29/25 13:37 03/29/25 16:00 03/29/25 20:00 Temperature 98 F 97.4 F L Pulse Rate 82 68 Respiratory Rate 20 16 Blood Pressure 110/60 117/73 Pulse Oximetry 100 95 Oxygen Delivery Room Air 03/29/25 20:00 03/30/25 00:00 03/30/25 04:00 Temperature 97.2 F L 97.4 F L Pulse Rate 59 L 60 Respiratory Rate 16 16 Blood Pressure 126/76 142/72 H Pulse Oximetry 97 98 Oxygen Delivery Room Air 03/30/25 08:24 03/30/25 09:02 03/30/25 09:08 Temperature Pulse Rate 60 Respiratory Rate 16 Blood Pressure Pulse Oximetry 98 Oxygen Delivery Room Air Room Air Intake/Output Intake/Output: Intake & Output 03/27/25 03/28/25 03/29/25 03/30/25 23:59 23:59 23:59 23:59 Intake Total 1160 300 Output Total 1650 500 Balance -490 -200 Meds/Results Medications: Active Medications Generic Name Dose Route Start Last Admin Trade Name Freq PRN Reason Stop Dose Admin Alendronate Sodium 70 mg 04/01/25 09:00 Alendronate Sodium 70 Mg Tablet PO WEEKLY MOISE Aripiprazole 2 mg 03/30/25 09:00 03/30/25 09:03 Aripiprazole 2 Mg Tablet PO 2 mg DAILY MOISE Administration Atorvastatin Calcium 20 mg 03/29/25 21:00 03/29/25 20:27 Atorvastatin 20 Mg Tablet PO 20 mg HS MOISE Administration Azathioprine 25 mg 03/30/25 09:00 03/30/25 09:03 Azathioprine 25 Mg Tablet PO 25 mg DAILY MOISE Administration Dextrose 12.5 gm 03/29/25 16:59 Dextrose 50% 25 Gm/50 Ml Syringe IV PUSH PRN PRN Hypoglycemia Protocol Enoxaparin Sodium 40 mg 03/30/25 09:00 03/30/25 09:08 Enoxaparin 40 Mg/0.4 Ml Syringe SUB-Q 40 mg DAILY MOISE Administration Glucagon 1 mg 03/29/25 16:59 Glucagon For Inj 1 Mg Vial IM PRN PRN Hypoglycemia Protocol Glucose 15 gm 03/29/25 16:59 Glucose Oral Gel 15 Gm Of Glucse In 37.5 Gm Tube PO PRN PRN Hypoglycemia Protocol Hydroxychloroquine Sulfate 200 mg 03/29/25 21:00 03/29/25 20:26 Hydroxychloroquine Sulfate 200 Mg Tablet PO 200 mg HS MOISE Administration Dextrose 1,000 mls @ 100 mls/hr 03/29/25 16:59 Dextrose 5% 1,000 Ml IVPB PRN PRN Hypoglycemia Protocol Insulin Aspart 3 - 6 units 03/29/25 17:00 03/30/25 12:11 Insulin Aspart (*Bkc) 100 Units/Ml SUB-Q Not Given TIDWM MOISE Protocol Insulin Aspart 1 - 3 units 03/29/25 21:00 03/29/25 21:12 Insulin Aspart (*Bkc) 100 Units/Ml SUB-Q Not Given HS MOISE Protocol Lamotrigine 200 mg 03/29/25 17:10 03/30/25 09:05 Lamotrigine 100 Mg Tablet PO 200 mg BIDWM MOISE Administration Loperamide HCl 2 mg 03/29/25 17:03 Loperamide Hcl 2 Mg Capsule PO Q6H PRN loose stool Propranolol HCl 120 mg 03/30/25 09:00 03/30/25 09:02 Propranolol Hcl 60 Mg Capsule Cr PO 120 mg QAM MOISE Administration Sertraline HCl 100 mg 03/29/25 17:15 03/30/25 09:03 Sertraline Hcl 50 Mg Tablet PO 100 mg BID MOISE Administration Sumatriptan Succinate 100 mg 03/29/25 17:03 03/30/25 02:49 Sumatriptan Succinate 25 Mg Tablet PO 100 mg Q2H PRN Administration migraine headache Radiology Results: ITS Impressions Head CT 03/28/25 23:58 Impression: No acute intracranial hemorrhage or suspicious mass effect. Cervical Spine CT 03/29/25 00:00 Impression: Significant degenerative disease, without acute fracture. Chest X-Ray 03/29/25 00:44 IMPRESSION: No focal infiltrate or effusion. Knee X-Ray 03/29/25 05:26 Impression: Minimal degenerative change, as above. Pelvis X-Ray 03/29/25 05:26 Impression: No significant abnormality is seen. Labs Labs: Laboratory Results - last 24 hr 03/29/25 03/29/25 03/29/25 12:23 13:22 16:45 POC Capillary Glucose 104 105 Vitamin B12 920.0 Folate 9.9 03/29/25 03/30/25 03/30/25 20:50 07:55 11:58 POC Capillary Glucose 106 H 114 H 107 H Vitamin B12 Folate
[2025-03-30 17:10] LABS: Glucose Point of Care 99 mg/dl (65-105)
[2025-03-30 20:52] LABS: Glucose Point of Care 110 mg/dl (65-105)
[2025-03-30] MEDS: ATORVASTATIN 20 MG TABLET PO (21:36)
[2025-03-30] MEDS: HYDROXYCHLOROQUINE SULFATE 200 MG TABLET PO (21:37)
[2025-03-31 03:46] VITALS: BP 115/66; PULSE 61; RESP 18; TEMP 36.6; O2SAT 95
[2025-03-31 05:18] LABS: Basophils Percent Auto 0.7 % (0.2-1.2); Eosinophils Absolute Auto 0.1 K/mm3 (0-0.3); Eosinophils Percent Auto 1.8 % (0-4.4); Hematocrit 43.6 % (37.0-47.0); Hemoglobin 14.4 g/dL (12.0-15.0); Immature Granulocyte Absolute 0.02 K/mm3 (0.00-0.031); Immature Granulocyte Percent A 0.4 % (0-0.5); Lymphocytes Absolute Auto 1.28 K/mm3 (0.9-3.2); Lymphocytes Percent Auto 28.3 % (18.3-44.2); Mean Corpuscular Hemoglobin 31.8 pg (26-34); Mean Corpuscular Volume 96.2 fl (80-100); Mean Platelet Volume 9.4 fl (7.4-10.4); Monocytes Absolute Auto 0.6 K/mm3 (0.1-0.6); Monocytes Percent Auto 12.4 % (2.6-8.5); Neutrophils Absolute Auto 2.6 K/mm3 (1.3-6.7); Neutrophils Percent Auto 56.4 % (45.5-73.1); Platelet Count Result 238 k/mm3 (150-375); Red Blood Count 4.53 M/mm3 (4.2-5.4); Red Cell Distribution Width 13.2 % (11.5-14.5); White Blood Count 4.5 K/mm3 (4.5-10.0)
[2025-03-31 05:34] LABS: Alanine Aminotransferase 23 U/L (6-35); Albumin Level 4.4 g/dL (3.5-5.1); Alkaline Phosphatase 87 U/L (38-126); Anion Gap 10 mmol/L (4-12); Aspartate Amino Transferase 34 U/L (14-36); Bilirubin,Total 0.5 mg/dL (0.2-1.3); Blood Urea Nitrogen 13 mg/dL (7-17); Calcium 9.6 mg/dL (8.4-10.2); Carbon Dioxide 26 mmol/L (22-30); Chloride 102 mmol/L (98-107); Estimated CRCL calculation 48 ml/min; Estimated Glomerular Filt Rate > 60; Glucose 107 mg/dL (65-110); Potassium 4.4 mmol/L (3.4-5.0); Sodium 138 mmol/L (137-145); Total Protein 7.6 g/dL (6.3-8.2)
--- NOTE | 2025-03-31 09:08 | PCSTNOTE ---
Please refer to the Modified Barium Swallow Evaluation in the EMR. The patient was positioned in a lateral view and presented 5cc/tsp amounts thin liquid barium, cup amounts thin liquid barium, uncontrolled straw drinks thin liquid barium, applesauce mixed with barium paste, and cracker coated with barium paste. Oral Stage: timely oral preparation and transit across consistencies. Pharyngeal Stage: Timely swallow initiation without viewed aspiration or penetration across consistencies. No residual in the vallecula or pyriform sinus across consistencies. Swallow function presented within normal limits. Recommend Regular diet level 7, Thin liquid level 0.
[2025-03-31 09:13] VITALS: PULSE 61
[2025-03-31] MEDS: azaTHIOprine 25 MG TABLET PO (09:13)
[2025-03-31] MEDS: lamoTRIgine 100 MG TABLET 200 MG PO (09:13)
[2025-03-31] MEDS: SERTRALINE HCL 50 MG TABLET 100 MG PO (09:13)
[2025-03-31] MEDS: ARIPiprazole 2 MG TABLET PO (09:13)
[2025-03-31] MEDS: PROPRANOLOL HCL 60 MG CAPSULE CR 120 MG PO (09:13)
[2025-03-31] MEDS: ENOXAPARIN 40 MG/0.4 ML SYRINGE SUB-Q (09:14)
[2025-03-31 09:30] LABS: Glucose Point of Care 135 mg/dl (65-105)
[2025-03-31 12:00] VITALS: BP 96/62; PULSE 70; RESP 16; TEMP 36.7; O2SAT 99
--- NOTE | 2025-03-31 12:07 | PM.DS ---
DS: Admitting Diagnosis Discharge Date 03/31/25 Admitting Diagnosis weakness DS: Discharge Diagnosis Discharge Diagnosis (1) Frequent falls: Code(s): R29.6 - Repeated falls Status: Acute Plan Frequent falls Patient noted worsening extremities weakness although exam did not showed any focal deficits Denies any dizziness, Lightheadedness and palpitations B12 920 and Folate 9.9 Unable to do MRI brain and total spine ordered due to deep brain stimulator in brain Neurology eval noted follow was outpatient for PT/OT PT/OT on booard Rheumatoid arthritis Continue home meds and above care plan DM2 [employer] meds Chronic diarrhea noted diarrhea has been going the past few years continue monitoring Migraine continue hem regimen Possible aspiration Speech consulted passed swallow eval monitor Essential tremors s/p DBS has mild tremors at baseline and some gait imbalance Neurology eval and noted that patient should continue outpatient PT DVT prophylaxis on Sq Lovenox Full code DS: Summary Hospital Course Hospital Course: per HPi: 69-year-old female past medical history of osteoporosis, rheumatoid arthritis, restless legs syndrome, memory loss, migraine, type 2 diabetes, bipolar disorder, depression, anxiety, hyperlipidemia who presented to the ER after a fall. Patient reported she has been having worsening extremities weakness the past 6 months, however she noted for this admission she lost her balance and fell. Denies any dizziness, chest pain, SOB, abd pain, dysuria or diarrhea. ED eval vital signs stable and wnl, Labs mostly unremarkable, CT head, cervival spine, CXR, knee xray and pelvis xray were unremarkable. labs wnl. 03/31/25 Patient was seen and examined at bedside. She is feeling fine. Denies any chest pain, shortness of breath, abd pain, Nausea vomiting. PT OT recommended outpatient therapy. Neurology on board. Status at Discharge Functional status at discharge: uses cane/walker Overall status at discharge: patient is back to baseline Time Spent with Patient Time attestation: Total time spent providing and/or coordinating discharge services: Time spent: Greater than 30 minutes Exam Narrative: GENERAL: Well-appearing, well-nourished, and in no acute distress. HEAD: Normocephalic, atraumatic. EYES: EOMI. Right pupil is large, irregularly shaped ENT: Nares clear, no rhinorrhea or epistaxis. Mucous membranes moist. Oropharynx without tonsillar hypertrophy exudate or other lesions. Bilateral TMs pearly sharma non-bulging NECK: Supple. No adenopathy or masses. CHEST: Clear to auscultation. No respiratory distress. No wheezes rales or rhonchi HEART: Regular rate and rhythm. No murmur heard. Normal peripheral pulses. ABDOMEN: Soft, nontender, nondistended, normal active bowel sounds. EXTREMITIES: Normal range of motion. No edema or obvious deformity. SKIN: Warm, dry, no rash. NEURO: No focal deficits. Alert and oriented x3. CN II-XII grossly intact PSYCH: Normal mood and affect DS: Data Data Completed and Pending Labs on day of discharge: Labs from last 24 hours 03/31/25 03/31/25 03/30/25 09:20 04:44 20:20 WBC 4.5 RBC 4.53 Hgb 14.4 Hct 43.6 MCV 96.2 MCH 31.8 MCHC 33.0 RDW 13.2 Plt Count 238 MPV 9.4 Immature Gran % (Auto) 0.4 Neut % (Auto) 56.4 Lymph % (Auto) 28.3 [place] % (Auto) 12.4 H Eos % (Auto) 1.8 Baso % (Auto) 0.7 Lymph # (Auto) 1.28 [place] # (Auto) 0.6 Eos # (Auto) 0.1 Baso # (Auto) 0.0 Abs Immat Gran (auto) 0.02 Absolute Neuts (auto) 2.6 Absolute Nucleated RBC 0.000 Nucleated RBC % 0.0 Sodium 138 Potassium 4.4 Chloride 102 Carbon Dioxide 26 Anion Gap 10 BUN 13 Creatinine 0.91 Estim Creat Clear Calc 48 Estimated GFR > 60 Glucose 107 POC Capillary Glucose 135 H 110 H Calcium 9.6 Magnesium 2.0 Total Bilirubin 0.5 AST 34 ALT 23 Alkaline Phosphatase 87 Total Protein 7.6 Albumin 4.4 03/30/25 03/30/25 16:56 11:58 WBC RBC Hgb Hct MCV MCH MCHC RDW Plt Count MPV Immature Gran % (Auto) Neut % (Auto) Lymph % (Auto) [place] % (Auto) Eos % (Auto) Baso % (Auto) Lymph # (Auto) [place] # (Auto) Eos # (Auto) Baso # (Auto) Abs Immat Gran (auto) Absolute Neuts (auto) Absolute Nucleated RBC Nucleated RBC % Sodium Potassium Chloride Carbon Dioxide Anion Gap BUN Creatinine Estim Creat Clear Calc Estimated GFR Glucose POC Capillary Glucose 99 107 H Calcium Magnesium Total Bilirubin AST ALT Alkaline Phosphatase Total Protein Albumin Discharge Plan Discharge Attending physician on discharge: Kristofer Diez Consulting providers: Shun Ross Discharging Clinician: Kristofer Diez Anticipated Discharge Date/Time: 03/31/25 12:20 Patient Disposition: Home Activity: as tolerated Diet: heart healthy and diabetic Discharge Instructions: check your blood pressure and heart rate regularly reports Follow-up with neurology clinic as the patient follow with physical therapy as outpatient Patient Instructions: Antibiotic Form Patient Language: Kittitian Stand Alone Forms: General Discharge Information Follow-up/Referrals: Crystal Coffman RN [Primary Care Provider] - 1 Week Shun Ross MD [Physician] - Call for Appointment Discharge Medications: Continued azathioprine 50 mg tablet 25 mg PO DAILY alendronate 70 mg tablet 70 mg PO WEEKLY Patient Comments: Take on saturdays fluticasone propionate 50 mcg/actuation spray,suspension 2 spray INTRANASAL DAILY Patient Comments: HS atorvastatin 20 mg tablet 1 mg PO DAILY Patient Comments: HS lamotrigine 200 mg tablet 1 mg PO BID sertraline 100 mg tablet 1 mg PO BID gabapentin 100 mg capsule 200 mg PO Q12H propranolol 120 mg capsule,extended release 24 hr 1 mg PO DAILY sumatriptan succinate 100 mg tablet 100 mg PO BID PRN (Reason: migraine headache) loratadine 10 mg tablet 10 mg PO DAILY clonazepam 0.5 mg tablet 0.25 mg PO DAILY Caltrate-D3 Plus Minerals 300 mg-800 unit -25 mg-0.5 mg tablet 1 tablet PO DAILY cyclobenzaprine 10 mg tablet 10 mg PO .pm PRN (Reason: Pain, Moderate) azelastine 137 mcg (0.1 %) spray,non-aerosol 1 spray INTRANASAL .PM hydroxychloroquine 200 mg tablet 200 mg PO HS Patient Comments: HS latanoprost 0.005 % drops 1 drp EACH EYE QPM primidone 250 mg tablet 250 mg PO Q12H aripiprazole 2 mg tablet 2 mg PO DAILY loperamide [Imodium A-D] 2 mg capsule 2 mg PO Q6H PRN (Reason: loose stool) abatacept (with maltose) 500 mg IV MONTHLY Patient Comments: unknown dose Other Ambulatory Orders: OT Outpatient Eval and Treat (ONCE) Timeframe: 20250330 Location: Determined by Patient Ordered By: Andreea Mendoza PT Outpatient Eval and Treat (ONCE) Timeframe: 20250330 Location: Determined by Patient Ordered By: Andreea Mendoza Date of admission: 03/29/25 02:20 Primary Care Provider: Crystal Coffman Admitting Provider: Victor Hugo Swift Attending physician on admission: Kristofer Diez Condition: Stable
[2025-03-31 12:17] LABS: Glucose Point of Care 119 mg/dl (65-105)
== END 2025-03-31 13:19 | disposition home or self-care (01) ==
LOC: ANHED 03-29 02:32 → ANH2MED 03-29 03:07
PROVIDERS: Internal Medicine; Student in an Organized Health Care Education/Training Program; Admitting Provider General Practice; Emergency Provider Physician Assistant; Visit Provider Internal Medicine
DX: R29.898 Other symptoms and signs involving the musculoskeletal system (principal); R26.89 Other abnormalities of gait and mobility; R29.6 Repeated falls; M06.9 Rheumatoid arthritis, unspecified; E11.42 Type 2 diabetes mellitus with diabetic polyneuropathy; K52.9 Noninfective gastroenteritis and colitis, unspecified; G25.0 Essential tremor; Z96.82 Presence of neurostimulator; S09.90XA Unspecified injury of head, initial encounter; W18.30XA Fall on same level, unspecified, initial encounter; H21.561 Pupillary abnormality, right eye; R09.89 Other specified symptoms and signs involving the circulatory and respiratory systems; M81.0 Age-related osteoporosis without current pathological fracture; G25.81 Restless legs syndrome; R41.3 Other amnesia; G43.909 Migraine, unspecified, not intractable, without status migrainosus; F31.9 Bipolar disorder, unspecified; F41.9 Anxiety disorder, unspecified; E78.5 Hyperlipidemia, unspecified; Z87.891 Personal history of nicotine dependence; Z79.899 Other long term (current) drug therapy; Z88.0 Allergy status to penicillin; Z88.2 Allergy status to sulfonamides
CPT/HCPCS: 36415; 70450; 71046; 72125; 72170; 73564; 74230; 80053; 80307; 81001; 82077; 82607; 82746; 82948; 83735; 85025; 85610; 85730; 87086; 92523; 92611; 93005; 96372; 97112; 97116; 97162; 97165; 97530; 99285; A9270; G0378; J1650

== ENCOUNTER 2025-07-19 17:07 | Emergency (ER) | payer MEDICARE, SELFPAY ==
[2025-07-19 17:17] VITALS: BP 104/64; PULSE 63; RESP 16; TEMP 36.9; O2SAT 100
[2025-07-19 17:31] LABS: EDUAAPPEAR Clear; EDUABILI Negative (Negative); EDUABLOOD Trace (Negative); EDUACOLOR1 Yellow; EDUAGLUCOSE Negative (Negative); EDUAKETONE Negative (Negative); EDUALEUKO Negative (Negative); EDUANITRATE Negative (Negative); EDUAPH 6.5; EDUAPROTEIN Negative (Negative); EDUASPGRAVITY 1.000; EDUAUROBILI 0.2
--- NOTE | 2025-07-19 17:41 | ED.FEMALEGU ---
HPI - Female Genitourinary General Chief complaint: Urogenital-Female Stated complaint: urinary irritation Time Seen by Provider: 07/19/25 17:33 Source: patient and RN notes reviewed Mode of arrival: ambulatory Limitations: no limitations History of Present Illness HPI Narrative: 70-year-old female patient with history of rheumatoid arthritis, bipolar disorder, diabetes, presents today complaining of lower abdominal pressure and urinary frequency that started today. Denies dysuria, hematuria, back pain, or fever. No OTC treatment prior to arrival. Related Data Home Medications ?Medication ?Instructions ?Recorded ?Confirmed ?Last Taken ?Type atorvastatin 20 mg tablet 1 mg PO DAILY 05/01/21 03/29/25 Unknown History gabapentin 100 mg capsule 200 mg PO Q12H 05/01/21 03/29/25 12/21/24 History lamotrigine 200 mg tablet 1 mg PO BID 05/01/21 03/29/25 12/21/24 History propranolol 120 mg capsule,24 1 mg PO DAILY 05/01/21 03/29/25 12/21/24 History hr,extended release sertraline 100 mg tablet 1 mg PO BID 05/01/21 03/29/25 12/21/24 History clonazepam 0.5 mg tablet 0.25 mg PO DAILY 12/08/21 03/29/25 12/21/24 History loratadine 10 mg tablet 10 mg PO DAILY 12/08/21 03/29/25 Unknown History sumatriptan succinate 100 mg tablet 100 mg PO BID PRN migraine headache 12/08/21 03/29/25 Unknown History calcium 300 mg-D3 20 mcg-magnesium 1 tablet PO DAILY 02/03/23 03/29/25 Unknown History 25 mg-coppr 0.5 [id number] tablet (Caltrate-D3 Plus Minerals) cyclobenzaprine 10 mg tablet 10 mg PO .pm PRN Pain, Moderate 02/03/23 03/29/25 Unknown History azathioprine 50 mg tablet 25 mg PO DAILY 04/18/24 03/29/25 Unknown History alendronate 70 mg tablet 70 mg PO WEEKLY 07/21/24 03/29/25 Unknown History fluticasone propionate 50 2 spray intranasal DAILY 07/21/24 03/29/25 Unknown History mcg/actuation nasal spray,suspension azelastine 137 mcg (0.1 %) nasal 1 spray intranasal .PM 12/20/24 03/29/25 Unknown History spray hydroxychloroquine 200 mg tablet 200 mg PO HS 12/20/24 03/29/25 Unknown History latanoprost 0.005 % eye drops 1 drp EACH EYE QPM 12/20/24 03/29/25 Unknown History primidone 250 mg tablet 250 mg PO Q12H 12/20/24 03/29/25 Unknown History abatacept (with maltose) 500 mg IV MONTHLY 03/29/25 03/29/25 11/15/24 History aripiprazole 2 mg tablet 2 mg PO DAILY 03/29/25 03/29/25 Unknown History loperamide 2 mg capsule (Imodium 2 mg PO Q6H PRN loose stool 03/29/25 03/29/25 Unknown History A-D) galcanezumab-gnlm 120 mg/mL mg subcut 07/19/25 Unknown History subcutaneous pen injector (Emgality Pen) Allergies Allergy/AdvReac Type Severity Reaction Status Date / Time Penicillins Allergy Severe Swelling Verified 07/19/25 17:33 Sulfa (Sulfonamide Allergy Intermediate Rash Verified 07/19/25 17:33 Antibiotics) [facility] Past Medical History Medical History Essential tremor Ataxia Restless leg syndrome Rheumatoid arthritis Arthritis Osteoporosis History of UTI Constipation Diarrhea High cholesterol History of falling Memory loss Chronic headaches Rib fracture Hx of migraines Diabetes Bipolar disorder Depression Anxiety Menopause History of alcohol abuse Sober for 9 years Bipolar depression Tremor hands HLD (hyperlipidemia) Surgical History Surgical History History of tonsillectomy History of hand surgery Left History of foot surgery Right x2 Family History Family History Father , Data 97 related to pneumonia Alzheimers disease Mother , Related to fall, Heart disease Unknown Hypertension Heart disease Diabetes mellitus High cholesterol Depression Arthritis Alcoholism Social History Social History Social History: former smoker Smoking packs per day: 2 Smoking cigarettes per day: 40.0 Years smoked: 24 Smoking pack-years: 48.00 Smoking status: Never smoker Tobacco type: cigarettes Second hand tobacco smoke exposure: No Smoking end date: 10/12/96 Additional smoking assessment comments: Denies Alcohol intake: never Alcohol use details: Quit 14 yrs ago Substance use: never Substance use type: does not use Do You Feel Safe in your Home?: Yes Lack of Transportation: No Lack of Food: Never True Current Housing: I Have Housing Concerned About Future Housing: No Difficulty Paying Gas/Electric Bills: No Difficulty Paying for Meds: No Currently Unemployed: No Education: Master's Degree or Higher Difficulty w/ Childcare or Family Care: No Living arrangements: with family Additional living arrangements comments: Roommate Additional occupation/education comments: Disable Gender identity (if verbalized by the patient): Female Sexual Orientation (if Verbalized by the Patient): Straight or Heterosexual Spiritual care concerns: No Comments At time of signature, I have reviewed and agree with nursing past medical, surgical, social and family history unless otherwise noted. Please see nursing chart for further information. There is no relevant family history pertinent to the presenting complaint Exam Narrative: GENERAL: Well-appearing, well-nourished, and in no acute distress. HEAD: Normocephalic, atraumatic. EYES: EOMI. No redness or drainage. Conjunctivae normal. ENT: Mucous membranes pink and moist. NECK: Normal AROM. CHEST: No respiratory distress. Clear to auscultation. HEART: Regular rate and rhythm. No murmur appreciated. ABDOMEN: Soft, nondistended, normal active bowel sounds.+ mild suprapubic tenderness. EXTREMITIES: Normal range of motion. No edema. SKIN: Warm, dry, no rash. Capillary refill normal. Normal skin turgor. NEURO: No focal deficits. Alert and oriented x3. Gait steady. PSYCH: Normal affect. No signs of depression or anxiety. Course Course Level of Care: Express Care Visit Vital Signs Vital signs: Vital Signs Temperature 98.5 F 07/19/25 17:17 Pulse Rate 63 07/19/25 17:17 Respiratory Rate 16 07/19/25 17:17 Blood Pressure 104/64 07/19/25 17:17 Pulse Oximetry 100 07/19/25 17:17 Oxygen Delivery Room Air 07/19/25 17:17 Temperature 98.5 F 07/19/25 17:17 Pulse Rate 63 07/19/25 17:17 Respiratory Rate 16 07/19/25 17:17 Blood Pressure 104/64 07/19/25 17:17 Pulse Oximetry 100 07/19/25 17:17 Oxygen Delivery Room Air 07/19/25 17:17 Reviewed MDM - Female Genitourinary MDM Narrative Medical decision making narrative: 70-year-old female patient presents today complaining of lower abdominal pressure and urinary frequency that started today. Denies any additional symptoms. No OTC treatment prior to arrival. Upon exam, patient has mild suprapubic tenderness, but otherwise exam is normal. UA shows trace blood but is otherwise negative. Urine culture pending. Based on symptoms and hematuria, will start patient on Keflex. Patient does have swelling reaction to PCN, but based on patient's pharmacy history, she has had keflex in the past. Will treat with keflex now. Vital signs stable. Anticipatory guidance given. Differential Diagnosis Differential diagnosis: Likely urinary tract infection, vaginitis, cystitis and other (Malignancy) Lab Data Attestation: I reviewed the patient's lab results. Labs: Lab Results 07/19/25 Range/Units 17:28 POC Urine Color Yellow POC Urine Clarity Clear POC Urine pH 6.5 POC Ur Specif [place] 1.000 POC Urine Protein Negative (Negative) POC Ur Glucose (UA) Negative (Negative) POC Urine Ketones Negative (Negative) POC Urine Blood Trace (Negative) POC Urine Nitrite Negative (Negative) POC Urine Bilirubin Negative (Negative) POC Urine Urobilinogen 0.2 POC U Leukocyte Esteras Negative (Negative) Critical Care Time Critical Care Time Critical Care Time: No Discharge Plan Discharge Clinical Impression: Urinary tract infection Qualifiers: Urinary tract infection type: acute cystitis Hematuria presence: with hematuria Qualified Code(s): N30.01 - Acute cystitis with hematuria Patient Disposition: Home Condition: Stable Instructions: Antibiotic Form, Urinary Tract Infection in Older Adults (ED) Additional Instructions: Your urine shows infection today. Take Keflex as prescribed until gone. Your urine will be sent of for a culture to identify what type of bacteria is causing your infection. If the culture shows that your medication will not get rid of your infection, you will be notified and a new antibiotic will be called in for you. If your symptoms worsen to include fever, sweats, chills, nausea, vomiting, severe abdominal or back pain, please go to the ER for further evaluation. Patient Language: Thai Prescriptions: New cephalexin 500 mg capsule 500 mg PO BID 7 Days Qty: 14 0RF No Action azathioprine 50 mg tablet 25 mg PO DAILY alendronate 70 mg tablet 70 mg PO WEEKLY Patient Comments: Take on saturdays fluticasone propionate 50 mcg/actuation spray,suspension 2 spray INTRANASAL DAILY Patient Comments: HS Emgality Pen 120 mg/mL pen injector SUBCUT atorvastatin 20 mg tablet 1 mg PO DAILY Patient Comments: HS lamotrigine 200 mg tablet 1 mg PO BID sertraline 100 mg tablet 1 mg PO BID gabapentin 100 mg capsule 200 mg PO Q12H propranolol 120 mg capsule,extended release 24 hr 1 mg PO DAILY sumatriptan succinate 100 mg tablet 100 mg PO BID PRN (Reason: migraine headache) loratadine 10 mg tablet 10 mg PO DAILY clonazepam 0.5 mg tablet 0.25 mg PO DAILY Caltrate-D3 Plus Minerals 300 mg-800 unit -25 mg-0.5 mg tablet 1 tablet PO DAILY cyclobenzaprine 10 mg tablet 10 mg PO .pm PRN (Reason: Pain, Moderate) azelastine 137 mcg (0.1 %) spray,non-aerosol 1 spray INTRANASAL .PM hydroxychloroquine 200 mg tablet 200 mg PO HS Patient Comments: HS latanoprost 0.005 % drops 1 drp EACH EYE QPM primidone 250 mg tablet 250 mg PO Q12H aripiprazole 2 mg tablet 2 mg PO DAILY loperamide [Imodium A-D] 2 mg capsule 2 mg PO Q6H PRN (Reason: loose stool) abatacept (with maltose) 500 mg IV MONTHLY Patient Comments: unknown dose Follow-up/Referrals: Meghna,Kerry [Other] Time of Disposition: 17:47
== END 2025-07-19 17:54 | disposition home or self-care (01) ==
PROVIDERS: Emergency Provider Nurse Practitioner
DX: N30.01 Acute cystitis with hematuria (principal); E11.9 Type 2 diabetes mellitus without complications; E78.00 Pure hypercholesterolemia, unspecified; G25.0 Essential tremor; M81.0 Age-related osteoporosis without current pathological fracture; M19.90 Unspecified osteoarthritis, unspecified site; M06.9 Rheumatoid arthritis, unspecified; G25.81 Restless legs syndrome; F31.9 Bipolar disorder, unspecified; F41.9 Anxiety disorder, unspecified; Z87.891 Personal history of nicotine dependence
CPT/HCPCS: 81003; 87086; 99213; G0463

== ENCOUNTER 2025-08-12 12:09 | Emergency (ER) | payer MEDICARE, SELFPAY ==
[2025-08-12 12:19] VITALS: BP 93/55; PULSE 67; RESP 16; TEMP 36.3; O2SAT 98
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
== END 2025-08-12 12:37 | disposition short-term general hospital (02) ==
DX: S05.11XA Contusion of eyeball and orbital tissues, right eye, initial encounter (principal); W18.09XA Striking against other object with subsequent fall, initial encounter; R51.9 Headache, unspecified; S69.91XA Unspecified injury of right wrist, hand and finger(s), initial encounter; E11.9 Type 2 diabetes mellitus without complications; E78.00 Pure hypercholesterolemia, unspecified; G25.81 Restless legs syndrome; M06.9 Rheumatoid arthritis, unspecified; M19.90 Unspecified osteoarthritis, unspecified site; M81.0 Age-related osteoporosis without current pathological fracture; F41.9 Anxiety disorder, unspecified; F31.9 Bipolar disorder, unspecified; Z87.891 Personal history of nicotine dependence
CPT/HCPCS: 99212; G0463

== ENCOUNTER 2025-08-12 13:45 | Emergency (ER) | payer MEDICARE, SELFPAY ==
--- OUTSIDE RECORDS SUMMARY | 2014-09-25 10:04 | XMS_ITS | Continuity of Care Document ---
Author Organization [facility] [place] Address [address] [place] [address] Phone Care Team Providers Care Boat Assembler Name Role Phone Sandie Briggs MD Unavailable Unavailable Allergies, Adverse Reactions, Alerts Substance Reaction Status Criticality sulfanilamide Rash Active No Information Penicillins Hives/Skin Rash Active No Informati on Medications Medication Instructions Dosage Effective Dates (start - stop) Status Comments trazodone 150 mg tablet take 1 tablet (150MG) by oral route every day at bedtime - Active propranolol 20 mg tablet take 1 tablet (20MG) by oral route every 12 hours 20 MG - Active hydroxyzine 25 mg tablet take 1 tablet (25MG) by oral route every 8 hours 25 MG - Active bupropion HCl SR 150 mg tablet,extended release take 1 tablet (150MG) by oral route every 12 hours 150 MG - Active folic acid 1 mg tablet take 1 tablet (1MG) by oral route every day 1 MG - Active Procedures Procedure Date COLLECTION OF VENOUS BLOOD BY VENIPUNCTU RE OFFICE/OUTPATIENT VISIT, EST Limit oral eval problem focused 012 Amalgam two surfaces Pneumococcal polysaccharide vaccine, 23- valent (Pneumo-Vax 23) to age 2+ Immun admin-adult or WO counseling - fir st vaccine/toxoid COLLECTION OF VENOUS BLOOD BY VENIPUNCTU RE OFFICE OUTPT EST 25 MIN OFFICE/OUTPATIENT VISIT, EST Dental bitewings two films Dental prophylaxis adult Oral hygiene instruction Comprehensve oral evaluation BX SKN SUBQ/MUC MEMB 1 LESION 2 BX SKN SUBQ/MUC MEMB EA SPX ADDL LESION OFFICE/OUTPATIENT VISIT, EST COLLECTION OF VENOUS BLOOD BY VENIPUNCTU RE CULTURE, PRESUMPTIVE, PATHOGENIC ORGANIS MS, SCREENING ONLY; CULTURE, CHLAMYDIA, ANY SOURCE 12 CYTP C/V AUTO THIN LYR PREPJ SCR SYS PHY S 1ST COMPRE PREV MED E/M NEW PT 40-64 Mar Limit oral eval problem focused 011 Amalgam two surfaces Periapical first film OFFICE OUTPT EST 25 MIN ENVIRONMENTAL IVNTJ MGMT PURPOSES PSYC P T FAMILY PSYCHOTHERAPY (CONJOINT PSYCHOTHE RAPY) (WITH PATIENT PRESENT) OFFICE/OUTPATIENT VISIT, EST OFFICE/OUTPATIENT VISIT, EST PSYCHIATRIC DIAGNOSTIC INTERVIEW EXAMINA TION OFFICE/OUTPATIENT VISIT, NEW Advance Directives Directive Yes / No Effective Date File Name No Information Encounters Encounter Description Practice Location Reason(s) For Visit Diagnoses Date Provider Providers Copied on Encounter [facility], [address], [place], [place], [address] , [place] tel: [phone] [facility] No Information 4 Tepe Sandie. [address], [place], [place], [address], [place]. [phone] OFFICE/OUTPATI ENT VISIT, EST [facility], [address], [place], [place], [address] , [place] tel: [phone] [facility] medication refill (chief complaint) Bipolar disorderHigh risk medication use 3 No Information [facility], [address], [place], [place], [address] , [place] tel: [phone] [facility] Soulard Velasquez Dental examination 2 No Information OFFICE OUTPT EST 25 MIN [facility], [address], [place], [place], [address] , [place] tel: [phone] [facility] referrals (chief complaint)b ipolar disorder (chief complaint) Bipolar disorderAlcohol abuseRoutine adult health maintenanceNeed for prophylactic vaccination and inoculation against Streptococcus pneumoniae [pneumococcus]C ommon wart 2 No Information OFFICE/OUTPATI ENT VISIT, EST [facility], [address], [place], [place], [address] , [place] tel: [phone] [facility] test results (chief complaint) Genital herpes, unspecifiedBeni gn neoplasm of vulvaNeed for prophylactic vaccination and inoculation, influenza 2 No Information [facility], [address], [place], [place], [address] , [place] tel: [phone] [facility]as[facility] Dental examination 2 No Information OFFICE/OUTPATI ENT VISIT, EST [facility], [address], [place], [place], [address] , [place] tel: [phone] [facility] irritated spot on vulva (chief complaint) Benign neoplasm of vulva 2 No Information 1ST COMPRE PREV MED E/M NEW PT 40-64 [facility], [address], [place], [place], [address] , [place] tel: [phone] [facility] annual visit (chief complaint) Routine gynecological examination 2 No Information [facility], [address], [place], [place], [address] , [place] tel: [phone] [facility] No Information 1 No Information OFFICE OUTPT EST 25 MIN [facility], [address], [place], [place], [address] , [place] tel: [phone] [facility] pain (chief complaint)E R f/u (chief complaint) Other and unspecified alcohol dependence, continuous drinking behavior 1 No Information ENVIRONMENTAL IVNTJ MGMT PURPOSES PSYC PT [facility], [address], [place], [place], [address] , [place] tel: [phone] [facility] No Information 0 No Information FAMILY PSYCHOTHERAPY (CONJOINT PSYCHOTHERAPY) (WITH PATIENT PRESENT) [facility], [address], [place], [place], [address] , [place] tel: [phone] [facility] substance abuse (chief complaint) No Information 0 No Information OFFICE/OUTPATI ENT VISIT, EST [facility], [address], [place], [place], [address] , [place] tel: [phone] [facility] alcohol (chief complaint) Other and unspecified alcohol dependence, continuous drinking behavior 0 No Information OFFICE/OUTPATI ENT VISIT, EST [facility], [address], [place], [place], [address] , [place] tel: [phone] [facility] dizziness (chief complaint)a lcohol abuse (chief complaint) Other and unspecified alcohol dependence, continuous drinking behaviorDizzine ss and giddiness 0 No Information [facility], [address], [place], [place], [address] , [place] tel: [phone] [facility] depression (chief complaint) Major depressive affective disorder, recurrent episode, moderate degreeOther and unspecified alcohol dependence, continuous drinking behaviorUnspeci fied personality disorder 0 No Information OFFICE/OUTPATI ENT VISIT, NEW [facility], [address], [place], [place], [address] , [place] tel: [phone] [facility] REFERRED BY [facility]A DE DAY (chief complaint)M EDICATION NEEDED (chief complaint) Issue of repeat prescriptions 0 Juan Pablo [facility], [place], [place], [address], [place]. [phone] [facility], [address], [place], [place], [address] , [place] tel: [phone] Care Guidelines Aly-0 1-190 1 No Information Family History Family Member Type Diagnosis Age At Onset Problem (finding) Family history of coronary arteriosclerosis Mother Problem (finding) depression Father Problem (finding) alcoholism Mother Problem (finding) alcoholism Immunizations Vaccine Date Status Comments Pneumo (2 yrs or older)(PPV) administered Source: New Immunization Record Flu administered Source: New Imm unization Record flu (split) preservative min e, 3 yrs or older administered Source: New Immuniza tion Record Payers Payer name Insurance type Covered republican ID Authoriza tion(s) No Information Social History Type Description Quantity Date Captured Comments Alcohol Use Details Unknown Caffeine Use Details Unknown Tobacco Use Status No Information Smoking Status No Information Sex Female Chief Complaint And Reason For Visit No Information Reason For Referral Reason For Referral No Information Plan Of Treatment Date Type Action Status Goal ALT. Due on due Goal Influenza Vaccine. Due on due Goal PAP. Due on due Goal Breast exam. Due on due Goal H&P. Due on due Goal Hemoglobin A1C. Due on due Goal BMP fasting. Due on due Goal AST. Due on due Goal TSH. Due on due Referral Referred To: Josse Carrillo MD [address] [place], [place], [phone] Ordered: Referral: Josse Carrillo MD. Psychiatry. Evaluate and treat. ordered Referral Referred To: [facility] Ordered: Referral: [facility]. Psychiatry. Evaluate and treat. ordered Referral Referred To: [facility] [address], [place], [phone] Ordered: Referral: [facility]. Radiology. Diagnostic testing. Appointment date/timeframe: 04/12/2012 ordered Referral Referred To: Anupam Sher MD [address] [place], [place], [phone] Ordered: Referral: Anupam Sher MD. Psychiatry. Appointment date/timeframe: 07/09/2010 ordered History Of Present Illness Encounter Date Complaint History Of Prese nt Illness No Information Functional Status Date Functional Assessmen t No Information Instructions Date Instruction Additional Infor maru Continue current medication Assessments Type Assessment Date No Information Patient Care Teams Name Effective Dates (start - stop) Status Members No Information
--- OUTSIDE RECORDS SUMMARY | 2014-09-25 10:04 | XMS_ITS | Continuity of Care Document ---
Author Organization [facility] Address [address] [place] [address] Phone Care Team Providers Care Lump Inspector Name Role Phone Sandie Briggs MD Unavailable [...] Encounter [facility], [address], [place], [place], [address] , [place] tel: [phone] [facility] No Information 4 Tepe Sandie. [address], [place], [place], [address], [place]. [phone] OFFICE/OUTPATI ENT VISIT, EST [facility], [address], [place], [place], [address] , [place] tel: [phone] [facility] medication refill (chief complaint) Bipolar disorderHigh risk medication use 3 No Information [facility], [address], [place], [place], [address] , [place] tel: [phone] [facility] Soul[facility] Velasquez Dental examination 2 No Information OFFICE OUTPT EST 25 MIN [facility], [address], [place], [place], [address] , [place] tel: [phone] [facility] referrals (chief complaint)b ipolar disorder (chief complaint) Bipolar disorderAlcohol abuseRoutine adult health maintenanceNeed for prophylactic vaccination and inoculation against Streptococcus pneumoniae [pneumococcus]C ommon wart 2 No Information OFFICE/OUTPATI ENT VISIT, EST [facility], [address], [place], [place], [address] , [place] tel: [phone] [facility] test results (chief complaint) Genital herpes, unspecifiedBeni gn neoplasm of vulvaNeed for prophylactic vaccination and inoculation, influenza 2 No Information [facility], [address], [place], [place], [address] , [place] tel: [phone] [facility] Soul[facility] Velasquez Dental examination 2 No Information OFFICE/OUTPATI ENT VISIT, EST [facility], [address], [place], [place], [address] , [place] tel: [phone] [facility] irritated spot on vulva (chief complaint) Benign neoplasm of vulva 2 No Information 1ST COMPRE PREV MED E/M NEW PT 40-64 [facility], [address], [place], [place], [address] , [place] tel: [phone] [facility] annual visit (chief complaint) Routine gynecological examination 2 No Information [facility], [address], [place], [place], [address] , [place] tel: [phone] [facility] No Information 1 No Information OFFICE OUTPT EST 25 MIN [facility], [address], [place], [place], [address] , [place] tel: [phone] [facility] pain (chief complaint)E R f/u (chief complaint) Other and unspecified alcohol dependence, continuous drinking behavior 1 No Information ENVIRONMENTAL IVNTJ MGMT PURPOSES PSYC PT [facility], [address], [place], [place], [address] , [place] tel: [phone] [facility] No Information 0 No Information FAMILY PSYCHOTHERAPY (CONJOINT PSYCHOTHERAPY) (WITH PATIENT PRESENT) [facility], [address], [place], [place], [address] , [place] tel: [phone] [facility] substance abuse (chief complaint) No Information 0 No Information OFFICE/OUTPATI ENT VISIT, EST [facility], [address], [place], [place], [address] , [place] tel: [phone] [facility] alcohol (chief complaint) Other and unspecified alcohol dependence, continuous drinking behavior 0 No Information OFFICE/OUTPATI ENT VISIT, EST [facility], [address], [place], [place], [address] , [place] tel: [phone] [facility] dizziness (chief complaint)a lcohol abuse (chief complaint) Other and unspecified alcohol dependence, continuous drinking behaviorDizzine ss and giddiness 0 No Information [facility], [address], [place], [place], [address] , [place] tel: [phone] [facility] depression (chief complaint) Major depressive affective disorder, recurrent episode, moderate degreeOther and unspecified alcohol dependence, continuous drinking behaviorUnspeci fied personality disorder 0 No Information OFFICE/OUTPATI ENT VISIT, NEW [facility], [address], [place], [place], [address] , [place] tel: [phone] [facility] REFERRED BY CASA DE DAY (chief complaint)M EDICATION NEEDED (chief complaint) Issue of repeat prescriptions 0 Juan Pablo Schwarz [address], [place], [place], [address], [place]. [phone] [facility], [address], [place], [place], [address] , [place] tel: [phone] Care Guidelines Aly-0 1-190 1 No Information [...] Record Payers Payer name Insurance type Covered democrat ID Authoriza tion(s) No Information Social History Type Description Quantity Date Captured Comments Alcohol Use Details Unknown Caffeine Use Details Unknown Tobacco Use Status No Information Smoking Status No Information Sex Female Chief Complaint And Reason For Visit No Information Reason For Referral Reason For Referral No Information Plan Of Treatment Date Type Action Status Goal TSH. Due on due Goal AST. Due on due Goal BMP fasting. Due on 013 due Goal Hemoglobin A1C. Due on due Goal H&P. Due on due Goal Breast exam. Due on 013 due Goal PAP. Due on due Goal Influenza Vaccine. Due on due Goal ALT. Due on due Referral Referred To: Josse Carrillo MD [address] [place], [place], [phone] Ordered: Referral: Josse Carrillo MD. Psychiatry. Evaluate and treat. ordered Referral Referred To: [facility] Ordered: Referral: [facility]. Psychiatry. Evaluate and treat. ordered Referral Referred To: [facility] [address], [place], [phone] Ordered: Referral: [facility] [place]. Radiology. Diagnostic testing. Appointment date/timeframe: 04/12/2012 ordered Referral Referred To: Anupam Sher MD [address] [place], [place], [phone] Ordered: Referral: Anupam Sher MD. Psychiatry. Appointment [...]
--- OUTSIDE RECORDS SUMMARY | 2025-08-09 06:30 | XMS_ITS | Continuity of Care Document ---
Author Organization [employer] [place] Address [facility][note 3] [facility] [address] [place] [address] Phone Care Team Providers Care Teleradiologist Name Role Phone Cezar Davis Unavailable Unavailable Procedures Procedure Date Therapeutic Activities Neuromuscular Re-Ed Hot or Cold Pack Therapeutic Activities Neuromuscular Re-Ed Therapeutic Exercise Therapeutic Activities Neuromuscular Re-Ed Hot or Cold Pack Progress Note Therapeutic Activities Neuromuscular Re-Ed Therapeutic Exercise Therapeutic Activities Neuromuscular Re-Ed Therapeutic Activities Neuromuscular Re-Ed Therapeutic Activities Progress Note Therapeutic Activities Therapeutic Exercise Therapeutic Activities Neuromuscular Re-Ed Manual Therapy Hot or Cold Pack Therapeutic Activities Neuromuscular Re-Ed Manual Therapy Hot or Cold Pack Therapeutic Activities Neuromuscular Re-Ed Therapeutic Activities Neuromuscular Re-Ed Jun- Manual Therapy Jun- Hot or Cold Pack Jun- Therapeutic Activities Neuromuscular Re-Ed Hot or Cold Pack Therapeutic Activities Neuromuscular Re-Ed Hot or Cold Pack Therapeutic Activities Neuromuscular Re-Ed Therapeutic Activities Neuromuscular Re-Ed Progress Note Therapeutic Activities Neuromuscular Re-Ed Therapeutic Exercise Progress Note Therapeutic Activities Neuromuscular Re-Ed Therapeutic Exercise Hot or Cold Pack Therapeutic Activities Hot or Cold Pack Neuromuscular Re-Ed Therapeutic Activities Neuromuscular Re-Ed Therapeutic Activities Neuromuscular Re-Ed Hot or Cold Pack Therapeutic Activities Neuromuscular Re-Ed Therapeutic Activities Neuromuscular Re-Ed Therapeutic Exercise Hot or Cold Pack Therapeutic Activities Neuromuscular Re-Ed Therapeutic Activities Neuromuscular Re-Ed Hot or Cold Pack Therapeutic Activities Neuromuscular Re-Ed Therapeutic Activities Therapeutic Activities Neuromuscular Re-Ed Therapeutic Exercise Hot or Cold Pack Progress Note Therapeutic Activities Neuromuscular Re-Ed Therapeutic Exercise Hot or Cold Pack Progress Note Therapeutic Activities Neuromuscular Re-Ed Therapeutic Exercise Therapeutic Activities Neuromuscular Re-Ed Therapeutic Activities Neuromuscular Re-Ed Hot or Cold Pack Therapeutic Activities Neuromuscular Re-Ed Therapeutic Activities Neuromuscular Re-Ed Hot or Cold Pack Therapeutic Activities Neuromuscular Re-Ed Waive Cancel or No Show - No Charge Waive Cancel or No Show - No Charge Therapeutic Activities Neuromuscular Re-Ed Therapeutic Activities Neuromuscular Re-Ed Therapeutic Exercise Hot or Cold Pack Waive Cancel or No Show - No Charge Therapeutic Activities Neuromuscular Re-Ed Hot or Cold Pack Therapeutic Exercise Doc neg elder mal no plan PRES/ABSN URINE INCON ASSESS PT Evaluation High Complexity Therapeutic Activities Neuromuscular Re-Ed Doc neg elder mal no plan PRES/ABSN URINE INCON ASSESS Identified as not an unhealthy alcohol u ser Not identified as unhealthy alcohol via screening OT Evaluation Moderate Complexity Therapeutic Activities Hot or Cold Pack Therapeutic Activities Neuromuscular Re-Ed Therapeutic Exercise Hot or Cold Pack Progress Note Therapeutic Activities Therapeutic Exercise Neuromuscular Re-Ed Hot or Cold Pack Therapeutic Activities Neuromuscular Re-Ed Hot or Cold Pack Therapeutic Activities Neuromuscular Re-Ed Hot or Cold Pack Therapeutic Activities Neuromuscular Re-Ed Manual Therapy Hot or Cold Pack Therapeutic Activities Manual Therapy Hot or Cold Pack Doc neg elder mal no plan PRES/ABSN URINE INCON ASSESS Identified as not an unhealthy alcohol u ser Not identified as unhealthy alcohol via screening OT Evaluation Moderate Complexity Therapeutic Activities Hot or Cold Pack Advance Directives Directive Yes / No Effective Date File Name No Information Encounters Encounter Description Practice Location Reason(s) For Visit Diagnoses Date Provider Providers Copied on Encounter [facility] [place], [place], [id number], tel:[phone] [place] No Information 5 Ronnie Robb. . Referring Provider: Access Direct. [facility] [facility], [place], [place], [id number], tel:[phone] [place] No Information 5 Jacobs Dot. . Referring Provider: Access Direct. [facility] [facility], [place], [place], [id number], tel:[phone] [place] No Information 5 Ronnie Robb. . Referring Provider: Access Direct. [facility] [place], [place], [address], tel:[phone] [place] No Information 5 Jacobs Dot. . Referring Provider: Access Direct. [facility], [place], [place], [id number], tel:[phone] [place] No Information Jacobs Dot. . Referring Provider: Access Direct. [facility], [place], [place], [address], tel:[phone] [place] No Information 5 Jacobs Dot. . Referring Provider: Access Direct. [facility] [address], [place], [place], [address], tel:[phone] [place] No Information 0 3- 5 Reynaldo Chris. . Referring Provider: Access Direct. [facility] [address], [place], [place], [address], tel:[phone] [place] No Information 0 3- 5 Blakely April. . Referring Provider: Access Direct. [facility] [address], [place], [place], [address], tel:[phone] [place] No Information Sep-2 6- 5 Blakely April. . Referring Provider: Access Direct. [facility] [address], [place], [place], [id number], tel:[phone] [place] No Information Sep-2 - 5 Blakely April. . Referring Provider: Access Direct. [facility] [address], [place], [place], [address], tel:[phone] [place] No Information Sep-2 5 Adrianna Ramos. . Referring Provider: Access Direct. [facility] [address], [place], [place], [address], tel:[phone] [place] No Information Sep- 5 Hamilton Hair [address] [facility], [address], [address], . tel:[phone] Referring Provider: Access Direct. [facility] [address], [place], [place], [address], [place] tel:[phone] [place] No Information Sep-10 18- 5 Blakely April. . Referring Provider: Access Direct. [facility] [address], [place], [place], [address], tel:[phone] [place] No Information Sep- 2- 5 Blakely April. . Referring Provider: Access Direct. [facility] [facility] [address], [place], [place], [address], tel:[phone] [place] No Information 0 5 Mekhi Valiente. . Referring Provider: Access Direct. [facility] [address], [place], [place], [address], tel:[phone] [place] No Information 0 5 Jacobs Dot. . Referring Provider: Access Direct. [facility] [address], [place], [place], [address], tel:[phone] [place] No Information 0 5 Jacobs Dot. . Referring Provider: Access Direct. [facility] [address], [place], [place], [address], tel:[phone] [place] No Information 0 5 Shameka Luna. . Referring Provider: Access Direct. [facility] [address], [place], [place], [address], tel:[phone] [place] No Information 5 Reddy Chen. . Referring Provider: Access Direct. [facility] [address], [place], [place], [address], tel:[phone] [place] No Information 5 Jacobs Dot. . Referring Provider: Access Direct. [facility] [address], [place], [place], [address], tel:[phone] [place] No Information 5 Reddy Mckeonh. . Referring Provider: Access Direct. [facility] [address], [place], [place], [address], tel:[phone] [place] No Information 5 Jacobs Dot. . Referring Provider: Access Direct. [facility] [address], [place], [place], [address], tel:[phone] [place] No Information 5 Schweindarian Luna. . Referring Provider: Access Direct. [facility] [address], [place], [place], [address], tel:[phone] [place] No Information 5 Jacobs Dot. . Referring Provider: Access Direct. [facility] [address], [place], [place], [address], tel:[phone] [place] No Information 5 Schweindarian Onealyn. . Referring Provider: Access Direct. [facility] [address], [place], [place], [address], tel:[phone] [place] No Information 5 Jacobs Dot. . Referring Provider: Access Direct. [facility] [address], [place], [place], [address], tel:[phone] [place] No Information - 5 Jacobs Dot. . Referring Provider: Access Direct. [facility] [address], [place], [place], [address], tel:[phone] [place] No Information 5 Blakely April. . Referring Provider: Access Direct. [facility] [address], [place], [place], [address], tel:[phone] [place] No Information 5 Blakely April. . Referring Provider: Access Direct. [facility] [address], [place], [place], [address], tel:[phone] [place] No Information 5 Jacobs Dot. . Referring Provider: Access Direct. [facility] [address], [place], [place], [address], tel:[phone] [place] No Information 5 Jacobs Dot. . Referring Provider: Access Direct. [facility] [facility] [address], [place], [place], [address], tel:[phone] [place] No Information 5 Blakely April. . Referring Provider: Access Direct. [facility] [facility] [address], [place], [place], [address], tel:[phone] [place] No Information 5 Mekhi Rocco. . Referring Provider: Access Direct. [facility] [facility] [address], [place], [place], [address], tel:[phone] [place] No Information 5 Blakely April. . Referring Provider: Access Direct. [facility] [facility] [address], [place], [place], [address], tel:[phone] [place] No Information 5 Jacobs Dot. . Referring Provider: Access Direct. [facility] [facility] [address], [place], [place], [address], tel:[phone] [place] No Information 5 Blakely April. . Referring Provider: Physician Melinda. [facility] [facility] [address], [place], [place], [address], tel:[phone] [place] No Information 5 Jacobs Dot. . Referring Provider: Physician Melinda. [facility] [facility] [address], [place], [place], [address], tel:[phone] [place] No Information 5 Jacobs Dot. . Referring Provider: Access Direct. [facility] [facility] [address], [place], [place], [address], tel:[phone] [place] No Information 5 Blakely April. . Referring Provider: Access Direct. [facility] [facility] [address], [place], [place], [address], [place] tel:[phone] [place] No Information 5 Blakely April. . Referring Provider: Physician Melinda. [facility], [place], [place], [address], tel:[phone] [place] No Information 5 Blakelymichael Mckeonh. . Referring Provider: Access Direct. [facility] [address], [place], [place], [address], tel:[phone] [place] No Information 5 Reynaldo Chris. . Referring Provider: Access Direct. [facility] [address], [place], [place], [address], tel:[phone] [place] No Information 5 Reddy Mckeonh. . Referring Provider: Access Direct. [facility] [address], [place], [place], [address], tel:[phone] [place] No Information 0 5 Ronnie Robb. . Referring Provider: Austin Chung, [address] [place] [address] [address], [place], [address]. tel:[phone] [facility] [address] [place] [address], [place], [place], [address], tel:[phone] [place] No Information 0 5 Ronnie Robb. . Referring Provider: Austin Chung, [facility] [address], [place], [address]. tel:[phone] [facility] [address] [address], [place], [place], [address], tel:[phone] [place] No Information 0 5 Ronnie Robb. . Referring Provider: Austin Chung, [address] [facility] [address], [place], [address]. tel:[phone] [facility] [address], [place], [place], [address], tel:[phone] [place] No Information February-3 0- 5 Ronnie Robb. . Referring Provider: Austin Chung, [address] [place] [address] [address], [place], [address]. tel:[phone] [facility], [address], [place], [place], [address], tel:[phone] [place] No Information 5 Ronnie Robb. . Referring Provider: Austin Chung, [facility] [address], [place], [address]. tel:[phone] [facility] [address] [facility] [address], [place], [place], [address], tel:[phone] [place] No Information 5 Ronnie Robb. . Referring Provider: Austin Chung, [address] [place] [address] [address], [place], [address]. tel:[phone] [facility] [address], [place], [place], [address], tel:[phone] [place] No Information 5 Ronnie Robb. . Referring Provider: Austin Chung, [facility] [address], [place], [address]. tel:[phone] Family History Family Member Type Diagnosis Age At Onset No Information Payers Payer name Insurance type Covered alliance party ID Prestona tiearline(s) [employer] [id number] Social History Type Description Quantity Date Captured Comments Sex Female Smoking Status No Information Chief Complaint And Reason For Visit No Information Reason For Referral Reason For Referral No Information History Of Present Illness Encounter Date Complaint History Of Prese nt Illness No Information Functional Status Date Functional Assessmen t No Information Instructions Date Instruction Additional Infor mation No Information Assessments Type Assessment Date No Information Patient Care Teams Name Effective Dates (start - stop) Status Members No Information
--- OUTSIDE RECORDS SUMMARY | 2025-08-09 06:30 | XMS_ITS | Continuity of Care Document ---
Author Organization [employer] Address [facility] [address] [place] [address] Phone Care Team Providers Care Microbiology Instructor Name Role Phone Cezar Davis Unavailable Unavailable [...] Exercise Therapeutic Activities Neuromuscular Re-Ed Therapeutic Activities Hot or Cold Pack Neuromuscular [...] No Charge Therapeutic Activities Neuromuscular Re-Ed Therapeutic Exercise Hot or Cold Pack Doc neg elder [...] Diagnoses Date Provider Providers Copied on Encounter [facility] [facility] [employer] [facility], [place], [place], [id number], tel:[phone] [place] No Information 5 Ronnie Robb. . Referring Provider: Access Direct. [facility] [employer] [facility], [place], [place], [id number], tel:[phone] [place] No Information 5 Jacobs Dot. . Referring Provider: Access Direct. [facility] [employer] [facility], [place], [place], [id number], tel:[phone] [place] No Information 5 Ronnie Robb. . Referring Provider: Access Direct. [facility] [facility] [employer], [place], [place], [id number], tel:[phone] [place] No Information 5 Jacobs Dot. . Referring Provider: Access Direct. [facility] [employer] [address], [place], [place], [id number], tel:[phone] [place] No Information Jacobs Dot. . Referring Provider: Access Direct. [facility] [employer] [address], [place], [place], [id number], tel:[phone] [place] No Information 5 Jacobs Dot. . Referring Provider: Access Direct. [facility] [address], [place], [place], [address], tel:[phone] [place] No Information 0 3- 5 Reynaldo Chris. . Referring Provider: Access Direct. [facility] [address], [place], [place], [address], tel:[phone] [place] No Information 0 3- 5 Blakely April. . Referring Provider: Access Direct. [facility] [address], [place], [place], [address], tel:[phone] [place] No Information Sep-2 6- 5 Blakely April. . Referring Provider: Access Direct. [facility] [address], [place], [place], [address], tel:[phone] [place] No Information Sep-2 - 5 Blakely April. . Referring Provider: Access Direct. [facility] [address], [place], [place], [address], tel:[phone] [place] No Information Sep-2 5 Adrianna Ramos. . Referring Provider: Access Direct. [facility] [address], [place], [place], [address], tel:[phone] [place] No Information Sep- 5 Hamilton Hair [address] [facility], [address], [address], . tel:[phone] Referring Provider: Access Direct. [facility] [address], [place], [place], [address], [place] tel:[phone] [place] No Information Sep-10 18- 5 Blakely April. . Referring Provider: Access Direct. [facility] [address], [place], [place], [address], tel:[phone] [place] No Information Sep- 2- 5 Blakely April. . Referring Provider: Access Direct. [facility] [facility] [address], [place], [place], [address], tel:[phone] [place] No Information 0 5 Mekhi Valiente. . Referring Provider: Access Direct. [facility] [address], [place], [place], [address], tel:[phone] [place] No Information 0 5 Jacobs Dot. . Referring Provider: Access Direct. [facility] [address], [place], [place], [address], tel:[phone] [place] No Information 0 5 Jacobs Dot. . Referring Provider: Access Direct. [facility] [address], [place], [place], [address], tel:[phone] [place] No Information 0 5 Shameka Luna. . Referring Provider: Access Direct. [facility] [address], [place], [place], [address], tel:[phone] [place] No Information 5 Reddy Chen. . Referring Provider: Access Direct. [facility] [address], [place], [place], [address], tel:[phone] [place] No Information 5 Jacobs Dot. . Referring Provider: Access Direct. [facility] [address], [place], [place], [address], tel:[phone] [place] No Information 5 Reddy Mckeonh. . Referring Provider: Access Direct. [facility] [address], [place], [place], [address], tel:[phone] [place] No Information 5 Jacobs Dot. . Referring Provider: Access Direct. [facility] [address], [place], [place], [address], tel:[phone] [place] No Information 5 Schweindarian Luna. . Referring Provider: Access Direct. [facility] [address], [place], [place], [address], tel:[phone] [place] No Information 5 Jacobs Dot. . Referring Provider: Access Direct. [facility] [address], [place], [place], [address], tel:[phone] [place] No Information 5 Schweindarian Onealyn. . Referring Provider: Access Direct. [facility] [address], [place], [place], [address], tel:[phone] [place] No Information 5 Jacobs Dot. . Referring Provider: Access Direct. [facility] [address], [place], [place], [address], tel:[phone] [place] No Information - 5 Jacobs Dot. . Referring Provider: Access Direct. [facility] [address], [place], [place], [address], tel:[phone] [place] No Information 5 Blakely April. . Referring Provider: Access Direct. [facility] [address], [place], [place], [address], tel:[phone] [place] No Information 5 Blakely April. . Referring Provider: Access Direct. [facility] [address], [place], [place], [address], tel:[phone] [place] No Information 5 Jacobs Dot. . Referring Provider: Access Direct. [facility] [address], [place], [place], [address], tel:[phone] [place] No Information 5 Jacobs Dot. . Referring Provider: Access Direct. [facility] [facility], [place], [place], [address], tel:[phone] [place] No Information 5 Blakely April. . Referring Provider: Access Direct. [facility] [facility], [place], [place], [address], tel:[phone] [place] No Information 5 Mekhi [place]. . Referring Provider: Access Direct. [facility] [facility] [address], [place], [place], [address], tel:[phone] [place] No Information 5 Blakely April. . Referring Provider: Access Direct. [facility] [facility] [address], [place], [place], [address], tel:[phone] [place] No Information 5 Jacobs Dot. . Referring Provider: Access Direct. [facility] [facility] [address], [place], [place], [address], tel:[phone] [place] No Information 5 Blakely April. . Referring Provider: Physician Melinda. [facility] [facility] [address], [place], [place], [address], tel:[phone] [place] No Information 5 Jacobs Dot. . Referring Provider: Physician Melinda. [facility] [facility] [address], [place], [place], [address], tel:[phone] [place] No Information 5 Jacobs Dot. . Referring Provider: Access Direct. [facility] [facility] [address], [place], [place], [address], tel:[phone] [place] No Information 5 Blakely April. . Referring Provider: Access Direct. [facility] [facility] [address], [place], [place], [address], [place] tel:[phone] [place] No Information 5 Blakely April. . Referring Provider: Physician Melinda. [facility] [employer] [address], [place], [place], [address], tel:[phone] [place] No Information 5 Blakelymichael Mckeonh. . Referring Provider: Access Direct. [facility] [address], [place], [place], [address], tel:[phone] [place] No Information 5 Reynaldo Chris. . Referring Provider: Access Direct. [facility] [address], [place], [place], [address], tel:[phone] [place] No Information 5 Reddy Mckeonh. . Referring Provider: Access Direct. [facility] [address], [place], [place], [address], tel:[phone] [place] No Information 0 5 Ronnie Robb. . Referring Provider: Austin Chung, [address] [place] [address] [address], [place], [address]. tel:[phone] [facility] [address] [place] [address], [place], [place], [address], tel:[phone] [place] No Information 0 5 Ronnie Robb. . Referring Provider: Austin Chung, [facility] [address], [place], [address]. tel:[phone] [facility] [address] [address], [place], [place], [address], tel:[phone] [place] No Information 0 5 Ronnie Robb. . Referring Provider: Austin Chung, [address] [facility] [address], [place], [address]. tel:[phone] [facility] [address], [place], [place], [address], tel:[phone] [place] No Information February-3 0- 5 Ronnie Robb. . Referring Provider: Austin Chung, [address] [place] [address] [address], [place], [address]. tel:[phone] [facility], [address], [place], [address], tel:[phone] [place] No Information 5 Ronnie Robb. . Referring Provider: Austin Chung, [facility] [address], [place], [address]. tel:[phone] [facility] [address] [facility] [address], [place], [place], [address], tel:[phone] [place] No Information 5 Ronnie Robb. . Referring Provider: Austin Chung, [address] [place] [address] [address], [place], [address]. tel:[phone] [facility] [address], [place], [place], [address], tel:[phone] [place] No Information 5 Ronnie Robb. . Referring Provider: Austin Chung, [facility] [address], [place], [address]. tel:[phone] Family History Family Member Type Diagnosis Age At Onset No Information Payers Payer name Insurance type Covered republican ID Prestona tiearline(s) [employer] [id number] Social History Type Description Quantity Date Captured [...]
--- NOTE | ~2025-08-12 | CT_ITS ---
EXAMINATION: CT brain wo fabrizio, 08/12/2025 16:25 CDT HISTORY: FALL COMPARISON: No comparisons available. Technique: Axial images obtained of the brain without contrast. One or more of the following dose reduction techniques were used: automated exposure control, adjustment of the mA and/or kV according to patient size, use of iterative reconstruction technique. Findings: No acute infarct or hemorrhage, there are bilateral deep brain stimulator leads noted. No midline shift or mass effect. No extra-axial fluid collections. Mastoid air cells unremarkable. Sinuses and orbits unremarkable. No acute fracture. No significant facial or scalp soft tissue swelling evident. No radiopaque foreign body is seen. Impression: 1.No acute intracranial abnormality. Reviewed, dictated and finalized at location P. Impression: 1.No acute intracranial abnormality.
--- NOTE | ~2025-08-12 | CT_ITS ---
EXAMINATION: CT orbit BI wo con COMPARISON: None HISTORY: RIGHT ORBIT TECHNIQUE: Axial images were obtained without IV contrast. Sagittal, coronal reconstruction images were obtained from the axial views. CT scan performed using dose optimization techniques including the following automated exposure control; adjustment of mA and/or kV; use of iterative reconstruction technique. Automatic exposure control was used to reduce radiation dose. Permanent radiation dose record is archived to PACS. FINDINGS: The nasal bones are intact. The anterior maxillary sinus garcia, zygomatic arches and temporomandibular joints are intact. The orbital floors and medial and orbits appear intact. Visualized brain parenchyma is unremarkable. There is no retrobulbar hemorrhage. Right frontal subcutaneous swelling noted within the right preseptal swelling. No radiopaque foreign body is identified. IMPRESSION: No acute fracture Reviewed, dictated and finalized at location P. IMPRESSION: No acute fracture
--- NOTE | ~2025-08-12 | XR_ITS ---
EXAMINATION: XR hand RT min 3V, 08/12/2025 16:48 CDT HISTORY: FALL COMPARISON: No comparisons available. Findings: No acute fracture or malalignment. Moderate to severe degenerative changes with small erosions noted. Soft tissues unremarkable. Impression: No acute fracture or malalignment. Reviewed, dictated and finalized at location P. Impression: No acute fracture or malalignment.
--- NOTE | ~2025-08-12 | CT_ITS ---
EXAMINATION: CT cervical spine wo con COMPARISON: None HISTORY: FALL TECHNIQUE: Axial images were obtained through the spine without IV contrast. Coronal, sagittal reconstruction images were obtained from the axial views. CT scan performed using dose optimization techniques including the following automated exposure control; adjustment of mA and/or kV; use of iterative reconstruction technique. Automatic exposure control was used to reduce radiation dose. Permanent radiation dose record is archived to [facility]. FINDINGS: The vertebral heights are intact. No fracture or subluxation. Moderate to severe loss of disc height at C3-4 C4-5 C5-6 and C6-7 with moderate to severe canal and foraminal stenosis, outpatient MRI is recommended Soft tissues unremarkable. Impression: No acute abnormality. Reviewed, dictated and finalized at location P. Impression: No acute abnormality.
[2025-08-12 13:46] VITALS: BP 96/53; PULSE 68; RESP 15; TEMP 36.6; O2SAT 100
--- OUTSIDE RECORDS SUMMARY | 2025-08-12 13:49 | XMS_ITS | Clinical Summary ---
Author Organization [facility] Address [address] [place] [address] Care Team Providers Care Surveillance Manager Name Role Phone Kerry Brown DO Primary Care Provider [phone] Encounters Date Type Department Care Team Description 06/23/2025 2:40 PM CDT - 06/23/2025 11:59 PM CDT Hospital Encounter [facility] Mammography [address] [place] [address] Kerry Brown DO Discharge Disposition: Home or Self Care (Routine Discharge) 06/23/2025 Travel from Last 3 Months Social History Tobacco Use Types Packs/Day Years Used Date Smoking Tobacco: Never Assessed Comments Unknown Sex and Gender Information Value Date Recorded Sex Assigned at Female 06/23/2025 2:33 PM CDT Legal Sex Female 1:18 PM CDT Gender Identity Not on file Sexual Orientation Not on file Plan of Treatment Health Maintenance Due Date Last Done Comments Colorectal Cancer Screening Colonoscopy (10 Years) 1955 Hepatitis C 1973 Annual Medicare Wellness Visit 2020 COVID-19 Vaccine ( season) 2025 07/17/2024, 10/11/2023, 10/14/2022, Additional history exists Influenza Adult (#1) 2025 07/17/2024, 09/29/2023, 07/03/2022, Additional history exists Mammogram Screening 06/23/2027 06/23/2025 DTaP, Tdap and Td Vaccines (3 - Td or Tdap) 03/08/2033 03/08/2023, 06/17/2014 Pneumococcal Vaccine: 50+ Years Completed 05/16/2021, 07/02/2020, 2018, Additional history exists Zoster Vaccines Completed 10/15/2022, 12/11, 05/16/2021 Dexa Scan (General) Completed 03/08/2024, 03/08/2024, 08/08/2021 RSV Immunization or 60+ Years Completed 08/17/2024 Hepatitis A Vaccines Aged Out No long er eligible based on patient's age to complete this topic Meningococcal B Vaccine Aged Out No l onger eligible based on patient's age to complete this topic Meningococcal Vaccine Aged Out No venu jaime eligible based on patient's age to complete this topic RSV Immunizations Under 20 Months Aged Out No longer eligible based on patient's age to complete this topic Procedures Procedure Name Priority Date/Time Associated Diagnosis Comments MG SCREENING W MANJINDER MANJINDER DIGI Routine 06/23/2025 3:04 PM CDT Visit for screening mammogram from Last 3 Months Results * MG SCREENING W MANJINDER MANJINDER DIGI (06/23/2025 3:04 PM CDT) Anatomical Region Laterality Modality Breast Bilateral Mammography 06/26/2025 2:48 PM CDT Impressions 06/26/2025 2:49 PM CDT IMPRESSION: No suspicious mammographic findings. Recommendation: 1. Routine Screening, Bilateral Assessment: ACR BI-RADS 2 - BENIGN FINDING(S) Ordered By: KERRY BROWN Interpreted By: Wild Giles, 06/26/2025 2:48 PM Narrative 06/26/2025 2:49 PM CDT [facility] [address] [place] [address] Examination: Screening bilateral mammogram Exam Date/Time: 06/23/2025 2:57 PM Clinical history: No current complaints. Comparison: 09/18/2023 Technique: Digital screening mammography of both breasts was performed. Breast tomosynthesis acquisitions were obtained and reviewed. This study was read with the assistance of a computer-aided detection system. Tissue density: There are scattered areas of fibroglandular density. Findings: No suspicious masses, malignant appearing calcifications, skin thickening or other abnormalities are present. No significant change from the prior exam. Kerry Brown DO MAMMO Final Result from Last 3 Months Insurance [employer] [place] [address] Care Teams Surveillance Manager Relationship Specialty Start Date End Date Kerry Brown DO [address] OF [facility] [place] [address] PCP - General INTERNAL MEDICINE 06/23/25
--- OUTSIDE RECORDS SUMMARY | 2025-08-12 13:49 | XMS_ITS | Clinical Summary ---
Author Organization [facility] Address [address] [place] [address] Phone Care Team Providers Care Communication Consultant Name Role Phone Joan Robins MD Primary [...] on file Legal Sex Female 10:36 AM PRODUCT INSPECTION SUPERVISOR Gender Identity Not on file Sexual Orientation Not on file Last Filed Vital Signs Vital Sign Reading Time Taken Comments Blood Pressure 125/81 10/21/2018 12:15 PM PRODUCT INSPECTION SUPERVISOR Pulse 72 10/21/2018 12:25 PM PRODUCT INSPECTION SUPERVISOR Temperature 36.3 C (97.3 F) 10/21/2018 11:32 AM PRODUCT INSPECTION SUPERVISOR Respiratory Rate 18 10/21/2018 12:25 PM PRODUCT INSPECTION SUPERVISOR Oxygen Saturation 99% 10/21/2018 12:25 PM PRODUCT INSPECTION SUPERVISOR Inhaled Oxygen Concentration - - Weight 60.3 kg (133 lb) 10/21/2018 11:32 AM PRODUCT INSPECTION SUPERVISOR Height 170.2 cm (5' 7) 10/21/2018 11:32 AM PRODUCT INSPECTION SUPERVISOR Body Mass Index 20.83 10/21/2018 11:32 AM PRODUCT INSPECTION SUPERVISOR Plan of Treatment Health Maintenance Due Date Last Done Comments Hepatitis C Virus (HCV) Screening 1955 Cologuard 2000 Colonoscopy 2000 Colorectal Cancer Screening 2000 Immunochemical Fecal Occult Blood 2000 Zoster Immunization (1 of 2) 2005 Hepatitis B Immunization (3 of 3 - 19+ 3-dose series) 01/28/2017 09/25/2016, 07/30/2016 Pneumococcal Immunization (50+ years) (2 of 2 - PCV) 2019 2018 Influenza Immunization (#1) 06/12/202507/12, 08/12/2017, 06/20/2016, Additional history exists SARS-COV-2 Immunization (4 - 2024- season) 2025 01/18/2022, 08/06/2021, 12/18/2020 Respiratory Syncytial Virus (RSV) Immunization (Adult) (1 - 1-dose 75+ series) 2030 DTaP/Tdap/Td Immunization Discontinued 06/17/2014 TdaP Immunization Completed 06/17/2014 Pneumococcal Immunization Combined Discontinued 2018 Human Papillomavirus (HPV) Immunization Aged Out No longer eligible based on patient's age to complete this topic Meningococcal Immunization (ACWY) Aged Out No longer eligible based on patient's age to complete this topic Rotavirus Immunization Aged Out No lo nger eligible based on patient's age to complete this topic Insurance Care Teams Communication Consultant Relationship Specialty Start Date End Date Joan Robins MD [address] [place] [address] PCP - General Internal Medicine 10/21/18
--- OUTSIDE RECORDS SUMMARY | 2025-08-12 13:49 | XMS_ITS | Encounter Summary ---
Author Organization [facility] Address [address] [facility] [place] [address] Care Team Providers Care Street Roller Engineer Name Role Phone Meghna Kerry FRANKS Primary Care Provider [phone] Kerry Coffman DO Unavailable [phone] Reason for Visit * Reason Onset Date Comments MEDICATION REFILL 01/10/2025 Encounter Details Date Type Department Care Team (Late st Contact Info) Description 01/10/2025 Refill [facility] - Neurology [address] [place] [phone] Moncho Salcedo APRN-PSS DELIVERY PROFESSIONAL [address] [place] [phone] MEDICATION REFILL Social History Tobacco Use Types [...] Sex Assigned at Female 09/16/2024 2:41 PM CORONARY CLINICAL SPECIALIST Legal Sex Female 5:56 AM CORONARY CLINICAL SPECIALIST Gender Identity Female 09/16/2024 2:41 PM CORONARY CLINICAL SPECIALIST Sexual Orientation Straight 09/16/2024 2: 41 PM CORONARY CLINICAL SPECIALIST documented as of this encounter Functional Status [...] Assessment Author No 12/08/2024 10:35 AM Mignon Olivaers RN * Does person have difficulty dressing/bathing? [...] Care Team (Late st Contact Info) Description 08/16/2025 3:00 PM CORONARY CLINICAL SPECIALIST Office Visit [facility] - Allergy [address] [place] [address], [place] [address] Papito Morales MD [address] [place] [address] 2L DIV OF ALLERGY/[place] [address] 08/30/2025 9:40 AM CORONARY CLINICAL SPECIALIST Office Visit [facility] - Dermatology [address] [place] [address], [place] [address] Partha Calhoun MD [address] [place] [address] 3 [place] [address] 10/26/2025 1:00 PM CORONARY CLINICAL SPECIALIST Office Visit [facility] - Neurology [address] [place] [address], [place] [phone] Moncho Salcedo, COOK CHIEF-PSS DELIVERY PROFESSIONAL [address] [place] [address] 1L [place] [phone] 11/20/2025 10:30 AM CORONARY CLINICAL SPECIALIST Office Visit [facility] - Internal Med [address] [place] [address], [place] [phone] Kerry Coffman DO [address] [place] [address] 2L DIV OF GEN [place] [address] 11/28/2025 1:15 PM CORONARY CLINICAL SPECIALIST Office Visit [facility] - Ophthalmology [address] [place] [address], [place] [phone] Percy Matute MD [address] [place] [address] DE[place] [phone] 11/29/2025 11:00 AM CORONARY CLINICAL SPECIALIST Office Visit [facility]ician Group - GI [address] [place] [phone] Yolanda [place], COOK CHIEF-PSS DELIVERY PROFESSIONAL [address] [place] [phone] documented as of this encounter Goals Goal Patient Goal Type Associated Problems Recent Progress Patient-Stated? Author Medication Management General On track( 025 11:32 AM CDT) No Marion Mera, RN Note: Expected end date: ongoing Interventions: Take all medications as prescribed documented as of this encounter Visit Diagnoses Diagnosis Cognitive decline Unspecified persistent mental disorders due to conditions classified elsewhere documented in this encounter Additional Health Concerns Infection Onset Date Last Indicated Resolved Time CDIFF Under Investigation 05/29/2025 05/29/2025 7:24 PM CDT CDIFF Under Investigation 07/25/2025 07/25/2025 6:57 PM CDT documented as of this encounter Care Teams Street Roller Engineer Relationship Specialty Start Date End Date Kerry Coffman DO [address] 2L DIV OF [facility] [place] [address] PCP - General Internal Medicine 12/15/23 Kerry Coffman DO [address] [facility] [address] 2L DIV OF [facility] [place] [address] PCP - Attributed-[facility] P4P 12/10/24 documented as of this encounter
--- OUTSIDE RECORDS SUMMARY | 2025-08-12 13:49 | XMS_ITS | Encounter Summary ---
Author Organization [facility] Address [address] [facility] [place] [address] Care Team Providers Care Sap Gatherer Name Role Phone MeghnaKerry Primary Care Provider [phone] MeghnaKerry Unavailable [phone] Encounter Details Date Type Department Care Team (Late st Contact Info) Description 08/02/2025 Results Follow-Up [facility] - GI [address] [facility], [facility] [place] [address] Yolanda [place], ART GALLERY DIRECTOR-HOME HEALTH BILLING SPECIALIST [address] [place] [address] Social History Tobacco Use Types [...] Answer Date Recorded Patient Health Questionnaire-2 Score 1 06/05/2025 Comments No Sex and Gender Information Value Date Recorded Sex Assigned at Female 09/16/2024 2:41 PM GUM SCORING MACHINE OPERATOR Legal Sex Female 5:56 AM GUM SCORING MACHINE OPERATOR Gender Identity Female 09/16/2024 2:41 PM GUM SCORING MACHINE OPERATOR Sexual Orientation Straight 09/16/2024 2: 41 PM GUM SCORING MACHINE OPERATOR documented as of this encounter [...] st Contact Info) Description 08/16/2025 3:00 PM GUM SCORING MACHINE OPERATOR Office Visit [facility] - Allergy [address] [place] [address], [place] [address] Papito Morales MD [address] [place] [address] 2L DIV OF ALLERGY/[place] [address] 08/30/2025 9:40 AM GUM SCORING MACHINE OPERATOR Office Visit [facility] - Dermatology [address] [place] [address], [place] [address] Partha Calhoun MD [address] [place] [address] 3 [place] [address] 10/26/2025 1:00 PM GUM SCORING MACHINE OPERATOR Office Visit [facility] - Neurology [address] [place] [address] [place] [phone] Denisse Lisandrodary, ART GALLERY DIRECTOR-HOME HEALTH BILLING SPECIALIST [address] [place] [address] 1L [place] [phone] 11/20/2025 10:30 AM GUM SCORING MACHINE OPERATOR Office Visit [facility] - Internal Med [address] [place] [address], [place] [phone] Kerry Coffman DO [address] [place] [address] 2L DIV [place] [address] 11/28/2025 1:15 PM GUM SCORING MACHINE OPERATOR Office Visit [facility] - Ophthalmology [address] [place] [address], [place] [phone] Percy Matute MD [address] [place] [address] [place] [phone] 11/29/2025 11:00 AM GUM SCORING MACHINE OPERATOR Office Visit [facility] - GI [address] [place] [phone] Yolanda [place], ART GALLERY DIRECTOR-HOME HEALTH BILLING SPECIALIST [address] [place] [phone] documented as of this encounter Goals Goal Patient Goal Type Associated Problems Recent Progress Patient-Stated? Author Medication Management General On track( 025 11:32 AM CDT) Marion Scott, RN Note: Expected end date: ongoing Interventions: Take all medications as prescribed documented as of this encounter Visit Diagnoses Not on filedocumented in this encounter Care Teams Sap Gatherer Relationship Specialty Start Date End Date Kerry Coffman DO [address] [place] [address] 2L DIV OF [facility] [place] [address] PCP - General Internal Medicine 12/15/23 Kerry Coffman DO [address] OF [facility] [place] [address] PCP - Attributed-[facility] P4P 12/10/24 documented as of this encounter
--- OUTSIDE RECORDS SUMMARY | 2025-08-12 13:49 | XMS_ITS | Encounter Summary ---
Author Organization [facility] Address [address] [facility] [place] [address] Care Team Providers Care Commercial Driver Name Role Phone Meghna Kerry FRANKS Primary Care Provider [phone] Kerry Coffman DO Unavailable [phone] Reason for Visit * Reason Onset Date Comments Appointment 10/20/2024 Encounter Details Date Type Department Care Team (Late st Contact Info) Description 10/20/2024 Telephone [facility] - Centralized Scheduling [address] [place] [phone] Moncho Salcedo, POULTRY EVISCERATOR-HEATER OPERATOR [address] [phone] Appointment Social History Tobacco Use [...] Sex Assigned at Female 09/16/2024 2:41 PM INSPECTOR CLIP ON SUNGLASSES Legal Sex Female 5:56 AM INSPECTOR CLIP ON SUNGLASSES Gender Identity Female 09/16/2024 2:41 PM INSPECTOR CLIP ON SUNGLASSES Sexual Orientation Straight 09/16/2024 2: 41 PM INSPECTOR CLIP ON SUNGLASSES documented as of this encounter Functional Status * Is person deaf or have serious hearing difficulty? Answer Date of Assessment Author No 07/29/2024 9:33 AM Manuel Bravo RN * Is person blind or have serious difficulty seeing? Answer Date of Assessment Author No 07/29/2024 9:33 AM Manuel Bravo RN * Does person have serious difficulty [...] to schedule for a Short Procedure with NURSE'S AIDES TEACHER Settu in November. ECTOR CLIP ON SUNGLASSES documented in this encounter Plan of Treatment Upcoming Encounters Date Type Department Care Team (Late st Contact Info) Description 08/16/2025 3:00 PM INSPECTOR CLIP ON SUNGLASSES Office Visit [facility] - Allergy [address] [place] [address], [place] [address] Papito Morales MD [address] [place] [address] 2L DIV OF ALLERGY/[place] [address] 08/30/2025 9:40 AM INSPECTOR CLIP ON SUNGLASSES Office Visit [facility] - Dermatology [address] [place] [address], [place] [address] Partha Calhoun MD [address] [place] [address] 3L [place] [address] 10/26/2025 1:00 PM INSPECTOR CLIP ON SUNGLASSES Office Visit [facility] - Neurology [address] [place] [address], [place] [phone] Moncho Salcedo, POULTRY EVISCERATOR-HEATER OPERATOR [address] [place] [address] 1L [place] [phone] 11/20/2025 10:30 AM INSPECTOR CLIP ON SUNGLASSES Office Visit [facility] - Internal Med [address] [place] [address], [place] [phone] Kerry Coffman DO [address] [place] [address] 2L DIV [place] [address] 11/28/2025 1:15 PM INSPECTOR CLIP ON SUNGLASSES Office Visit [facility] - Ophthalmology [address] [place] [address], [place] [phone] Percy Matute MD [address] [place] [address] [place] [phone] 11/29/2025 11:00 AM INSPECTOR CLIP ON SUNGLASSES Office Visit [facility] - GI [address] [place] [phone] Yolanda [place], POULTRY EVISCERATOR-HEATER OPERATOR [address] [place] [phone] documented as of this encounter Goals Goal [...] CDIFF Under Investigation 10/26/2024 11/07/2024 4:33 AM INSPECTOR CLIP ON SUNGLASSES CDIFF Under Investigation 11/07/2024 11/07/2024 5:38 PM INSPECTOR CLIP ON SUNGLASSES CDIFF Under Investigation 05/29/2025 05/29/2025 7:24 PM CDT CDIFF Under Investigation 07/25/2025 07/25/2025 6:57 PM CDT documented as of this encounter Care Teams Commercial Driver Relationship Specialty Start Date End Date Kerry Coffman DO [address] 2L DIV [place] [address] PCP - General Internal Medicine 12/15/23 Kerry Coffman DO [address] 2L DIV OF [facility] [place] [address] PCP - Attributed-[facility] P4P 12/10/24 documented as of this encounter
--- OUTSIDE RECORDS SUMMARY | 2025-08-12 13:49 | XMS_ITS | Clinical Summary ---
Author Organization [facility] Friday Address [address] [place] [address] Care Team Providers Care General Maintenance Mechanic Name Role Phone Kerry Coffman DO Primary Care Provider [phone] Kerry Coffman DO Unavailable [phone] Source Comments [facility] Friday,non-owned Affiliates and Associated Physician Practices is amultiple site organization consisting of ambulatory clinics and hospital sitesin [place], [place], [place] and [place]. This disclosure is being madepursuant to the Care Everywhere program and may not contain all information available regarding this patient. Last updated 18.[facility] Friday Allergies Active Allergy Reactions Criticality Noted Date Comments Penicillins Anaphylaxis High 10/21/2018 Sulfa Drugs Rash Medium 10/21/2018 Medications * This document contains information received from the source organization and may not represent a complete record from that organization. * Be aware that medications may not be up to date on this document. Alwaysverify current medications with the patient. sertraline (ZOLOFT) 100 MG tablet Take 1 (one) tablet by mouth 2 times daily 11/08/19 20 Active loratadine (CLARITIN) 10 MG tablet Take 1 (one) tablet by mouth once daily 01/18/20 22 Active Calcium Carbonate (CALTRATE 600 PO) Take 1 tablet by mouth 2 times daily Active Cyanocobalamin (Vitamin B12) 500 MCG TABS [...] by mouth once daily 03/15/20 24 Active alendronate (Fosamax) 70 MG tabletIndication [...] DAILY 100 strip 11 07/27/20 24 Active atorvastatin (Lipitor) 20 MG tablet Take 1 (one) tablet by mouth at bedtime 90 tablet 3 08/05/20 24 Active fluticasone propionate (Flonase) 50 MCG/ACT nasal sprayIndications :Chronic rhinitis,Allergi c rhinitis, unspecified seasonality, unspecified trigger,Chronic daily headache Elizabeth 2 (two) sprays into each nostril once daily 16 g 6 08/11/20 24 Active Blood Glucose Monitoring Suppl (ONE TOUCH ULTRA 2) w/Device KITIndications:T ype 2 diabetes mellitus with hyperglycemia, without long-term current use of insulin ([facility]) Use 1 device as directed 1 kit 10/17/19 25 Active omeprazole (PriLOSEC) 40 MG capsule Take 1 (one) capsule by mouth daily before breakfast Active Galcanezumab-gnl m (Emgality) 120 MG/ML auto-injector penIndications:I ntractable 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 Inject 1 mL subcutaneously every 30 days 1 mL 11 11/02/19 25 Active clonazePAM (KlonoPIN) 0.5 MG tabletIndication s:Benign essential tremor Take 1 (one) tablet by mouth at bedtime 30 tablet 5 03/02/20 25 Active Additional Information Patient taking differently: 0.25 mgOral AT BEDTIME, Reported on 07/26/2025 primidone (Mysoline) 250 MG tabletIndication s:Tremor Take 1 tablet by mouth twice daily 180 tablet 3 03/02/20 25 Active propranolol ER 24hr (Inderal LA) 120 MG capsuleIndicatio ns:Tremor Take 1 (one) capsule by mouth once daily 90 capsule 3 03/02/20 25 Active Lancets (ONETOUCH DELICA PLUS 33G EXTRA FINE LANCET)Indicatio ns:Type 2 diabetes mellitus with hyperglycemia, without long-term current use of insulin (HCC) Use 1 Each 2 times daily 100 Each 03/13/20 25 Active azelastine (Astelin) 0.1 % nasal sprayIndications :Chronic rhinitis,Allergi c rhinitis, unspecified seasonality, unspecified trigger,Chronic daily headache Elizabeth 1 (one) spray into each nostril 2 times daily 30 mL 8 05/04/20 25 Active abatacept (Orencia) 125 MG/ML prefilled syringe Inject 1 (one) syringe subcutaneously 05/23/20 25 Active lamoTRIgine (LaMICtal) 150 MG tablet TAKE 1 TABLET BY MOUTH TWICE DAILY BEFORE MEAL(S) 05/20/20 25 Active ondansetron, disintegrating, (Zofran ODT) 4 MG tabletIndication s:Acute nausea with nonbilious vomiting Take 1 (one) tablet by mouth every 6 hours as needed for Nausea/Vomiting Allow tablet to dissolve on the tongue 15 tablet 05/29/20 25 Active SUMAtriptan (Imitrex) 100 MG tabletIndication s:Migraine without aura and without status migrainosus, not intractable Take 1 (one) tablet by mouth as needed for Migraine (take one with onset of headache, can repeat in 2 hours if needed, maximum of 2 in 24 hours.) No more than 2 doses in 24 hours. 9 tablet 2 06/08/20 25 Active latanoprost (Xalatan) 0.005 % ophthalmic solution Instill 1 (one) drop into both eyes 2 times daily 7.5 mL 11 06/28/20 25 Active gabapentin (Neurontin) 100 MG capsuleIndicatio ns:Cervicogenic headache Take 2 (two) capsules by mouth 3 times daily 560 capsule 3 07/26/20 25 Active memantine (Namenda) 5 MG tabletIndication s:Memory impairment Take 1 (one) tablet by mouth once daily 30 tablet 11 07/26/20 25 Active donepezil (Aricept) 10 MG tabletIndication s:Cognitive decline Take 1 (one) tablet by mouth once daily 90 tablet 3 07/26/20 25 Active donepezil (Aricept) 10 MG tabletIndication s:Cognitive decline Take 1 (one) tablet by mouth once daily 90 tablet 3 09/27/20 24 025 Discontin ued(Reord er) gabapentin (Neurontin) 100 MG capsuleIndicatio ns:Migraine without aura and without status migrainosus, not intractable,Cerv icogenic headache TAKE 2 CAPSULES BY MOUTH TWICE DAILY FOR HEADACHE 120 capsule 3 07/04/20 25 025 Discontin ued(Reord er) Active Problems Problem Noted Date Diagnosed Date [...] Encounters Date Type Department Care Team Description 08/09/2025 Telephone [facility] - [address] [phone] Josee You RN Pre Authorization 08/02/2025 Results Follow-Up [facility] - GI [address] [place] [phone] Yolanda Greer APRN-CNP 07/26/2025 3:00 PM CDT Office Visit [facility] - Neurology [address] [place] [phone] Moncho Salcedo APRN-CNP Memory impairment (Primary Dx); Cervicogenic headache; Cognitive decline 07/26/2025 Travel 07/21/2025 Orders Only [facility] - [address] [phone] Yolanda Greer, PHARMACY TECHNICIAN TRAINEE-JR. JAVA DEVELOPER 07/18/2025 Telephone [facility] - Endocrinology [address] [place] [phone] Haydee Simmons, SHADIA Blood Glucose (Sugar) Review 07/10/2025 Telephone [facility] - GI [address] [place] [phone] Wong Braun, SHADIA Follow-up 07/07/2025 Telephone [facility] - GI [address] [place] [address], [place] [phone] Yolanda Greer APRN-ARELY LABS ONLY 07/06/2025 Orders Only [facility] - Internal Med [address] [place] [phone] Kerry Coffman DO 07/05/2025 Travel 07/03/2025 Refill [facility] - Neurology [address] [place] [phone] Hyacinth Arriaga APRN-JR. JAVA DEVELOPER Refill Request 06/28/2025 Orders Only [facility] - Ophthalmology [address] [place] [phone] Percy Matute MD 06/27/2025 Refill [facility] - Ophthalmology [address] [place] [phone] Percy Matute MD Refill Request 06/16/2025 Telephone [facility] - Neurology [address] [place] [phone] Hyacinth Arriaga APRN-JR. JAVA DEVELOPER Medication Management 06/16/2025 Refill [facility] - Neurology [address] [place] [phone] Moncho Salcedo APRN-JR. JAVA DEVELOPER MEDICATION REFILL 06/14/2025 Refill [facility] - Neurology [address] [place] [phone] Hyacinth Arriaga APRN-JR. JAVA DEVELOPER MEDICATION REFILL 06/08/[address] [facility] - Neurology [address] [place] [phone] Hyacinth Arriaga APRN-JR. JAVA DEVELOPER MEDICATION REFILL 06/05/2025 8:30 AM CDT Office Visit [facility] - Internal Med [address] [place] [phone] Kerry Coffman, Routine general medical examination at health care facility (Primary Dx); Type 2 diabetes mellitus with hyperglycemia, without long-term current use of insulin ([facility]); Rheumatoid arthritis with negative rheumatoid factor, involving unspecified site ([facility]); Bipolar affective disorder, remission status unspecified ([facility]); Chronic diarrhea; Screening mammogram for breast cancer 06/05/2025 Travel 05/29/2025 11:00 AM CDT Office Visit [facility] - GI [address] [place] [phone] Yolanda Greer APRN-CNP Acute nausea with nonbilious vomiting (Primary Dx); Chronic diarrhea; History of peptic ulcer; Abdominal bloating 05/29/2025 Travel 05/25/2025 1:15 PM CDT Office Visit [facility] - Ophthalmology [address] [place] [phone] Percy Matute MD Long-term use of Plaquenil (Primary Dx); Primary open angle glaucoma (POAG) of left eye, mild stage 05/25/2025 1:05 PM CDT Clinical Support [facility] - Ophthalmology [address] [place] [phone] Percy Matute MD Long-term use of Plaquenil (Primary Dx) 05/25/2025 1:00 PM CDT Clinical Support [facility] - Ophthalmology [address] [place] [phone] Percy Matute MD Long-term use of Plaquenil (Primary Dx) 05/25/2025 Travel 05/15/[address] [facility] - Neurology [address] [place] [address], [place] [phone] Hyacinth Arriaga, PHARMACY TECHNICIAN TRAINEE-JR. JAVA DEVELOPER Refill Request from Last 3 Months Immunizations Immunization Administration Dates Next Due COVID - 19, HISTORIC VACCINE 12/21/2020 COVID PRISCA PRIMARY 18+YR 12/18/2020 COVID MODERNA 12+ yr 50mcg/0.5mL 10/11/2023 COVID MODERNA BIVALENT 12Y+ 50MCG/0.5ML 10/14/2022 COVID PFIZER 12+YR 30MCG/0.3mL 07/17/2024 Covid Moderna primary monova lent 12+ yr 0.5mL 01/18/2022 Covid Pfizer primary monoval ent 12+ yr 0.3mL Purple cap 08/06/2021 FLU VACCINE TRI IIV3 SPLIT P F IM (FLUVIRIN) 06/02/2012 HEP B VACCINE, ADULT 3 DOSE 09/25/2016, 6 INFLUENZA VACCINE, HIGH-DOSE , TRIV. (FLUZONE HIGH-DOSE TRIVALENT; 65Y+) (HD-IIV3) 07/17/2024,07/12/2015,07/12/2014 INFLUENZA VACCINE, QUADR. (A FLURIA, FLUZONE QUADRIVALENT; 6MO+) (IIV4) 07/03/2022,10/08/2021,07/02/2020,2018,08/12/2017,06/20/2016,10/20/2013 INFLUENZA VACCINE, QUADR. (F LUZONE; FLULAVAL; FLUARIX; AFLURIA QUADRIVALENT; 6MO+), 0.5 ML (IIV4) 09/29/2023,11/17/2018,07/21/2018 MMR VACCINE 07/26/2018 PNEUMOCOCCAL PPSV23 07/08/2012 PNEUMOCOCCAL PPV VACCINE 05/16/2021,2018 Pneumococcal Pcv13 Conj 07/02/2020 RSV AREXVY 60YR+ 0.5ML 08/17/2024 TDAP, HISTORIC VACCINE 03/08/2023,06/17/2014 Zoster Hzv Vacc [...] Sex Assigned at Female 09/16/2024 2:41 PM NECK CUTTER Legal Sex Female 5:56 AM NECK CUTTER Gender Identity Female 09/16/2024 2:41 PM NECK CUTTER Sexual Orientation Straight 09/16/2024 2: 41 PM NECK CUTTER Last Filed Vital Signs Vital Sign Reading Time Taken Comments Blood Pressure 97/65 07/26/2025 3:05 PM CDT Pulse 65 07/26/2025 3:05 PM CDT Temperature 36.4 C (97.5 F) 06/05/2025 8:30 AM CDT Respiratory Rate 17 04/17/2025 5:43 PM CDT Oxygen Saturation 98% 07/26/2025 3:05 PM CDT Inhaled Oxygen Concentration - - Weight 61.2 kg (135 lb) 07/26/2025 3:05 PM CDT Height 167.6 cm (5' 6) 07/26/2025 3:05 PM CDT Body Mass Index 21.79 07/26/2025 3:05 PM CDT Plan of Treatment Upcoming Encounters Date Type Department Care Team (Late st Contact Info) Description 08/16/2025 3:00 PM NECK CUTTER Office Visit [facility] - Allergy [address] [place] [address], [place] [phone] Papito Morales MD [address] [place] [address] 2L DIV OF ALLERGY/[place] [address] 08/30/2025 9:40 AM NECK CUTTER Office Visit [facility] - Dermatology [address] [place] [address], [place] [phone] Partha Calhoun MD [address] [place] [address] 3[address] [place] [phone] 10/26/2025 1:00 PM NECK CUTTER Office Visit [facility] - Neurology [address] [place] [phone] Moncho Salcedo, PHARMACY TECHNICIAN TRAINEE-JR. JAVA DEVELOPER [address] [place] [address] [address] [place] [phone] 11/20/2025 10:30 AM NECK CUTTER Office Visit [facility] - Internal Med [address] [place] [phone] Kerry Coffman DO [address] [place] [address] 2L DIV [place] [address] 11/28/2025 1:15 PM NECK CUTTER Office Visit [facility] - Ophthalmology [address] [place] [address], [place] [phone] Percy Matute MD [address] [place] [address] GL [place] [phone] 11/29/2025 11:00 AM NECK CUTTER Office Visit [facility] - GI [address] [place] [phone] Yolanda Greer, PHARMACY TECHNICIAN TRAINEE-JR. JAVA DEVELOPER [address] [place] [phone] Health Maintenance Due Date Last Done Comments COLOGUARD (AGES 45-75) - COLON CA SCREENING 1955 CT COLONOGRAPHY - COLON CA SCREENING 1955 FIT - COLON CA SCREENING 1955 FLEX SIG - COLON CA SCREENING 1955 HEPATITIS B VACCINE (3 of 3 - 19+ 3-dose series) 01/28/2017 09/25/2016, 07/30/2016 COVID-19 VACCINE ( season) 2025 07/17/2024, 10/11/2023, 10/14/2022, Additional history exists INFLUENZA VACCINE (#1) 2025 , 09/29/2023, 07/03/2022, Additional history exists DIABETES-HGB A1C 12/06/2025 06/05/2025, , 12/08/2022 DIABETES-SERUM CREATININE 12/23/20252024, 07/20/2024, 02/05/2023, Additional history exists DIABETES-FOOT EXAM WITH MONOFILAMENT 06/05/2026 06/05/2025, 04/04/2024 DIABETES - URINE PROTEIN SCREENING 07/06/2026 07/06/2025, 02/05/2023 DIABETES RETINOPATHY SCREENING 05/25/2027 05/25/2025, 05/25/2025, 02/09/2025, Additional history exists MAMMOGRAM 06/23/2027 06/23/2025, 06/12, 06/23/2025, Additional history exists COLONOSCOPY - COLON CA [...] 05/16/2021 BONE DENSITY TESTING Completed 03/08/2024, 08/08/20 Respiratory Syncytial Virus (RSV) Vaccine Pt: or over 60 yrs Completed 08/17/2024 MEDICARE AWV CALENDAR YEAR Completed 06/05/2025, 09/19/2024 HIB VACCINE Aged Out No longer eligi [...] as prescribed Medical Devices Implanted Type Area Hazmat Tanker Driver Device Identifier Shelf Expiration Date Model / Serial / Lot Slnt Dura Duraseal Pg Trilysine Amine 5 Implanted:Qty: 1 on 03/17/2022 by Jackelyn Yang MD at [facility] Left: Cranial [employer] 08/11/2023 [id number] / / [id number] Guardian Branial Jupiter Hole Cover Sys Implanted:Qty: 1 on 03/17/2022 by Jackelyn Yang MD at [facility] Left: Cranial [employer] 01/01/2024 6010 / / [id number] Directional Lead Implanted:Qty: 1 on 03/17/2022 by Shailesh North MD at [facility] Left: Cranial [employer] 09/25/2023 6172 / [id number] / Lead Extension Implanted:Qty: 1 on 03/24/2022 by Shailesh North MD at [facility] Left: Neck [employer] 01/15/2024 6371ANS / / [id number] Generator Implanted:Qty: 1 on 03/24/2022 by Shailesh North MD at [facility] Left: Chest [employer] 11/19/2023 6662 / / [id number] [place] Spnl 140mm 6.35mm Ti Str Implanted:Qty: 1 on 08/29/2022 by Shailesh North MD at [facility] Right: Scalp [employer] 04/02/2024 6010 / / [employer] Dbs System Implanted:Qty: 1 on 08/29/2022 by Joshua Gill MD at [facility] Right: Brain 03/19/2024 6172 / [id number] / Description:cost per Levar [employer] Dbs System Implanted:Qty: 1 on 08/29/2022 by Joshua Gill MD at [facility] Right: Chest Wall 04/23/2024 6373 / [id number] / Description:cost per levar Procedures Procedure Name Priority Date/Time Associated Diagnosis Comments C DIFFICILE CYTOTOXIN 07/25/2025 12:36 PM CDT GASTROINTESTINAL PATHOGEN PANEL (GPP) PCR 07/21/2025 12:12 PM CDT MICROALB/CREAT RATIO URINE RANDOM PANEL 07/06/2025 12:07 PM CDT MAMMOGRAM Routine 06/23/2025 3:06 PM CDT HEMOGLOBIN A1C - POINT OF CARE (AMB) [facility] Routine 06/05/2025 9:20 AM CDT Type 2 diabetes mellitus with hyperglycemia, without long-term current use of insulin (HCC) HENDRIX AUTO VISUAL FIELD EXTENDED Routine 05/25/2025 12:57 PM CDT Long-term use of Plaquenil RETINAL ANALYSIS OCT Routine 05/25/2025 12:57 PM CDT Long-term use of Plaquenil COMPREHENSIVE METABOLIC PANEL STAT 12/23/2024 9:06 AM CDT ENDOSCOPY, COLON, SCREENING Routine 11/11/2024 9:52 AM NECK CUTTER from Last 3 Months or Most Recently Relevant to Health Maintenance Results * C DIFFICILE CYTOTOXIN (07/25/2025 12:36 PM CDT) Cytotoxin Assay Stool NOT DETECTED [facility] Comment: [...] (GDH) with Reflex to PCR, order code 38021 or Clostridium difficile toxin B, Qualitative real time PCR, test code 12571 to be more sensitive and timely methods for the diagnosis of C. difficile colitis. For additional information, please refer to http://education.[employer]/faq/MED479 (This link is being provided for informational/ educational purposes only.) REPORT COMMENT: SPLIT 07/21/2025 FROM [id number] Test Performed at: [facility] [place] [address] [place] [address] JARRELL CALDERON MD,PHD,EDGARDO 07/25/2025 12:3 6 PM CDT 07/26/2025 4:17 AM CDT us Yolanda Greer PHARMACY TECHNICIAN TRAINEE-JR. JAVA DEVELOPER LAB - MICROBIOLO GY ORDERABLES Final Result [facility] [address] [place] [address] * GASTROINTESTINAL PATHOGEN PANEL (GPP) PCR (07/21/2025 12:12 PM CDT) Campylobacter PCR NOT DETECTED NOT DETECTED [facility] Salmonella PCR NOT DETECTED NOT DETECTED [facility] Shigella Species PCR NOT DETECTED NOT DETECTED [facility] Vibrio PCR NOT DETECTED NOT DETECTED [facility] Yersinia enterocolitica PCR NOT DETECTED NOT DETECTED [facility] Shiga Toxin 1 NOT DETECTED NOT DETECTED [facility] Shiga Toxin 2 NOT DETECTED NOT DETECTED [facility] Norovirus GI/GII PCR NOT DETECTED NOT DETECTED [facility] Rotavirus A PCR NOT DETECTED NOT DETECTED [facility] Comment: Organisms included in the Campylobacter group include C. coli, C. jejuni, and C. miles. Organisms included in the Shigella species include S. dysenteriae, S. boydii, S. sonnei, and S. flexneri. Organisms included in the Vibrio group include V. cholerae and V. parahaemolyticus. REPORT COMMENT: COLLECTION REQUIREMENTS NOT MET. PATIENT ADVISED TO RETURN. Test Performed at: [facility] [place] [id number] SAROJ FAUSTIN MD 07/21/2025 12:1 2 PM CDT 07/21/2025 8:42 PM CDT Yolanda Greer PHARMACY TECHNICIAN TRAINEE-JR. JAVA DEVELOPER LAB - MICROBIOLO GY ORDERABLES Final Result [facility] [address] [place] [address] * MICROALB/CREAT RATIO URINE RANDOM PANEL (07/06/2025 12:07 PM CDT) Creatinine Urine 26 20 - 275 mg/dL [facility] Microalbumin Urine <0.2 mg/dL [facility] Comment: Reference Range Not established Microalbumin/Creat inine Ratio NOTE <30 mg/g creat [facility] Comment: NOTE: The urine albumin value is less than 0.2 mg/dL therefore we are unable to calculate excretion and/or creatinine ratio. The ADA defines abnormalities in albumin excretion as follows: Albuminuria Category Result (mg/g creatinine) Normal to Mildly increased <30 Moderately increased 30-299 Severely increased > OR = 300 The ADA recommends that at least two of three specimens collected within a 3-6 month period be abnormal before considering a patient to be within a diagnostic category. Test Performed at: [facility] [place] [id number] SAROJ FAUSTIN MD 07/06/2025 12:0 7 PM CDT 07/06/2025 12:07 PM CDT Kerry La Fontaine DO LAB - URINE CHEMISTRY ORDERA BLES Final Result [facility] [address] [place] [address] * MAMMOGRAM (06/23/2025 3:06 PM CDT) Anatomical Region Laterality Modality Other Historical Provider MD SCANNING ONLY Final Res ult * HEMOGLOBIN A1C - POINT OF CARE (AMB) [facility] (06/05/2025 9:20 AM CDT) Hemoglobin A1c POCT 5.5 % [facility] [address] [facility] BLOOD SPECIMEN / Unknown 06/05/2025 9:20 AM CDT Kerry La Fontaine DO LAB - POINT OF CARE ORDERABL ES Final Result Performing Organization Address City/[facility] Co de Phone Number [facility] [address] [facility] [address] [facility] [place] [address], [facility] [phone] * HENDRIX AUTO VISUAL FIELD EXTENDED (05/25/2025 12:57 PM CDT) Anatomical Region Laterality Modality Head External-Camera Photography Narrative 05/25/2025 2:16 PM CDT Images from the original result were not included. HVF 10-2 full field OU, good reliability OD, high FL OS Percy Matute MD OPHTHALMOLOGY SCHED ORD W PAC S Final Result * RETINAL ANALYSIS OCT (05/25/2025 12:57 PM CDT) Anatomical Region Laterality Modality Head External-Camera Photography Narrative 05/25/2025 2:18 PM CDT Images from the original result were not included. OCT FAF without maculopathy OU OCT macula with normal retina crosssection with preservation of fovea, clivus, and cellular lamina OU Percy Matute MD OPHTHALMOLOGY SCHED ORD W PAC S Final Result * (ABNORMAL) COMPREHENSIVE METABOLIC PANEL (12/23/2024 9:06 AM [facility]) BUN 9 7 - 26 mg/dL 12/23/2024 10:02 AM [facility] Creatinine 0.87 0.56 - 0.96 mg/dL 12/23/2024 10:02 AM [facility] Sodium 143 136 - 145 mmol/L 12/23/2024 10:02 AM [facility] Potassium 4.4 3.5 - 4.5 mmol/L 12/23/2024 10:02 AM [facility] Chloride 104 98 - 107 mmol/L 12/23/2024 10:02 AM [facility] CO2 31(H) 22 - 29 mmol/L 12/23/2024 10:02 AM [facility] Glucose 97 70 - 99 mg/dL 12/23/2024 10:02 AM [facility] Calcium 9.5 8.4 - 10.2 mg/dL 12/23/2024 10:02 AM [facility] Protein Total 6.7 6.0 - 8.3 g/dL 12/23/2024 10:02 AM [facility] Albumin 3.8 3.4 - 5.0 g/dL 12/23/2024 10:02 AM [facility] Bilirubin Total 0.4 0.2 - 1.2 mg/dL 12/23/2024 10:02 AM [facility] Alkaline Phosphatase 116 40 - 150 U/L 12/23/2024 10:02 AM [facility] ALT 30 5 - 55 U/L 12/23/2024 10:02 AM [facility] AST 32 5 - 34 U/L 12/23/2024 10:02 AM [facility] Anion Gap 8 6 - 16 12/23/2024 10:02 AM [facility] BUN/Creatinine Ratio 10 7 - 23 12/23/2024 10:02 AM [facility] Osmolality Calculated 295 275 - 295 mOsm/kg 12/23/2024 10:02 AM [facility] Albumin/Globulin Ratio 1.3 1.1 - 2.3 12/23/2024 10:02 AM CDT [facility] eGFR by CKD-EPI 72(L) >=90 mL/min/1.7 3 m2 12/23/2024 10:02 AM CDT [facility] Blood BLOOD SPECIMEN / Unknown Venipuncture / Unknown 12/23/2024 9:06 AM CDT 12/23/2024 9:27 AM CDT us Yuval Krueger MD LAB - CHEMISTRY ORDERABLES Fi nal Result [address] [address], [facility] [phone] * ENDOSCOPY, COLON, SCREENING (11/11/2024 9:52 AM NECK CUTTER) Report Endoscopy POC Endoscopy Department Report _ Patient Name: Cheyanne Dawson Procedure Date: 11/11/2024 9:52 AM Date of [...] bowel preparation was evaluated using the BBPS (Malmo Bowel Preparation Scale) with scores of: Right [...] non-mariscal portions. Procedure Code(s): --- Professional --- 60157, Colonoscopy, flexible; with removal of tumor(s), polyp(s), or other lesion(s) by snare technique 94136, 59, Colonoscopy, flexible; with biopsy, single or multiple Diagnosis Code(s): --- Professional --- Z86.010, Personal history of colonic polyps D12.2, Benign neoplasm of ascending colon D12.4, Benign neoplasm of descending colon K57.30, Diverticulosis of large intestine without perforation or abscess without bleeding CPT copyright 2021 [employer]. All rights reserved. The codes documented in this report are preliminary and upon certified residential medication aide review may be revised to meet current compliance requirements. Sixto Cornell MD 11/11/2024 10:36:45 AM This report has been signed electronically. Note Initiated On: 11/11/2024 9:52 AM Number of Addenda: [address] [address] [facility] [employer] 11/11/2024 9:52 AM NECK CUTTER Sixto Cornell MD GI PROCEDURE ORDERABLES Edited Result - Final [facility] [employer] from Last 3 Months or Most Recently Relevant to Health Maintenance Insurance [facility] MANAGED MEDICARE ADV [place] [id number] [facility] MANAGED MEDICARE ADV [employer] MANAGED MEDICARE ADV SELF PAY NO INSURANCE Member Subscriber Plan / Payer (Ef fective for All Dates) Name:Cheyanne Dawson Member ID:Not on file Relation to Subscriber:Not on file Name:CHEYANNE DAWSON Subscriber ID:Not on file (Home) Address: [address] [place] [id number] Payer ID:Not on file Group ID:Not on file Type:Self Pay Address: [place], [place] [facility] MANAGED MEDICARE ADV Advance Directives * Full Code (Latest Code Status on File) Date Activated Date Inactivated Comments 08/29/2022 4:40 PM 08/31/2022 1:59 PM * Full Code Date Activated Date Inactivated Comments 03/17/2022 3:37 PM 03/19/2022 1:47 PM Care Teams General Maintenance Mechanic Relationship Specialty Start Date End Date Kerry Coffman DO [address] [place] [address] PCP - General Internal Medicine 12/15/23 Kerry Coffman DO [address] [place] [address] PCP - Attributed-[facility] MAN[employer]OR TAYLOR P4P 12/10/24
--- OUTSIDE RECORDS SUMMARY | 2025-08-12 13:49 | XMS_ITS | Encounter Summary ---
Author Organization [facility] Address [address] [facility] [place] [address] Care Team Providers Care Sole Rounding Machine Operator Name Role Phone MeghnaKerry Primary Care Provider [phone] Meghna Kerry FRANKS Unavailable [phone] Encounter Details Date Type Department Care Team (Late st Contact Info) Description 02/10/2024 Telephone [facility] - Neurology [address] [facility], [place] [address] Hyacinth Arriaga, SET UP PERSON-WAREHOUSE TRAINER [address] [place] [address] [place] [address] Social History Tobacco Use Types Packs/Day Years Used Date Smoking Tobacco: Never Assessed Comments No Sex and Gender Information Value Date Recorded Sex Assigned at Female 09/16/2024 2:41 PM FIBER OPTICS SUPERVISOR Legal Sex Female 5:56 AM FIBER OPTICS SUPERVISOR Gender Identity Female 09/16/2024 2:41 PM FIBER OPTICS SUPERVISOR Sexual Orientation Straight 09/16/2024 2: 41 PM FIBER OPTICS SUPERVISOR documented as of this encounter Functional Status [...] No 03/24/2022 6:35 PM CDT Ibeth Lopez, SHADIA * Does person have difficulty doing errands [...] st Contact Info) Description 08/16/2025 3:00 PM FIBER OPTICS SUPERVISOR Office Visit [facility] - Allergy [address] [place] [address] [place] [phone] Papito Morales MD [address] [place] [address] 2L DIV OF ALLERGY/[place] [address] 08/30/2025 9:40 AM FIBER OPTICS SUPERVISOR Office Visit [facility] - Dermatology [address] [place] [address], [place] [phone] Partha Calhoun MD [address] [place] [address] 3L [place] [phone] 10/26/2025 1:00 PM FIBER OPTICS SUPERVISOR Office Visit [facility] - Neurology [address] [place] [address], [place] [phone] Moncho Salcedo, SET UP PERSON-WAREHOUSE TRAINER [address] [place] [address] 1L [place] [phone] 11/20/2025 10:30 AM FIBER OPTICS SUPERVISOR Office Visit [facility] - Internal Med [address] [place] [address] [place] [phone] Kerry Coffman DO [address] [place] [address] 2L DIV [place] [address] 11/28/2025 1:15 PM FIBER OPTICS SUPERVISOR Office Visit [facility] - Ophthalmology [address] [place] [address] [place] [phone] Percy Matute MD [address] [place] [address] [place] [phone] 11/29/2025 11:00 AM FIBER OPTICS SUPERVISOR Office Visit [facility] - GI [address] [place] [address] [place] [phone] Yolanda Greer, SET UP PERSON-WAREHOUSE TRAINER [address] [place] [phone] documented as of this encounter Visit Diagnoses Not on filedocumented in this encounter Additional Health Concerns Infection Onset Date Last Indicated Resolved Time CDIFF Under Investigation 07/20/2024 07/20/2024 4:33 AM CDT CDIFF Under Investigation 10/26/2024 11/07/2024 4:33 AM FIBER OPTICS SUPERVISOR CDIFF Under Investigation 11/07/2024 11/07/2024 5:38 PM FIBER OPTICS SUPERVISOR CDIFF Under Investigation 05/29/2025 05/29/2025 7:24 PM CDT CDIFF Under Investigation 07/25/2025 07/25/2025 6:57 PM CDT documented as of this encounter Care Teams Sole Rounding Machine Operator Relationship Specialty Start Date End Date Kerry Coffman DO [address] DIV [place] [address] PCP - General Internal Medicine 12/15/23 Kerry Coffman DO [address] DIV OF [facility] [place] [address] PCP - Attributed-[facility] [employer] TAYLOR P4P 12/10/24 documented as of this encounter
--- OUTSIDE RECORDS SUMMARY | 2025-08-12 13:49 | XMS_ITS | Encounter Summary ---
Author Organization [facility] Address [address] [place] [address] Care Team Providers Care Cryptozoologist Name Role Phone Joan Robins MD Primary Care Provider [place]erry reddy DO Primary Care Provider [phone] Kerry Coffman DO Unavailable [phone] Encounter Details Date Type Department Care Team (Late st Contact Info) Description 12/18/2021 Telephone [facility] [address] [place] [address] Rissa Vo MD Social History Tobacco Use Types Packs/Day Years Used Date Smoking Tobacco: Former Smokeless Tobacco: Never Alcohol Use Standard Drinks/Week Comments Never 0 (1 standard drink = 0.6 oz pur e alcohol) Comments Unknown Sex and Gender Information Value Date Recorded Sex Assigned at Female 09/16/2024 2:41 PM MANAGER SOURCING Legal Sex Female 5:56 AM MANAGER SOURCING Gender Identity Female 09/16/2024 2:41 PM MANAGER SOURCING Sexual Orientation Straight 09/16/2024 2: 41 PM MANAGER SOURCING COVID-19 Exposure Response Date Recorded In the last month, have you been in contact with someone who was confirmed or suspected to have Coronavirus / COVID-19? No / Unsure 12/19/2021 5:58 AM MANAGER SOURCING documented as of this encounter Patient Instructions * Patient Instructions* Donny Elliott - 12/18/2021 6:58 AM MANAGER SOURCING Pt was bumped from 03/17/2022 DBN appt. [facility] does not schedule for these appt types. Please reschedule from the bump list. GER SOURCING documented in this encounter Plan of Treatment Upcoming Encounters Date Type Department Care Team (Late st Contact Info) Description 08/16/2025 3:00 PM MANAGER SOURCING Office Visit [facility] - Allergy [address] [place] [address], [place] [phone] Papito Morales MD [address] [place] [address] 2L DIV OF ALLERGY/[place] [address] 08/30/2025 9:40 AM MANAGER SOURCING Office Visit [facility] - Dermatology [address] [place] [address], [place] [phone] Partha Calhoun MD [address] [place] [address] 3L [place] [phone] 10/26/2025 1:00 PM MANAGER SOURCING [facility] [address] [place] [phone] Moncho Salcedo, RONEL-FLY WORKER [address] [place] [address] 1L [place] [phone] 11/20/2025 10:30 AM MANAGER SOURCING Office [facility] Internal Med [address] [place] [phone] Kerry Coffman DO [address] [place] [address] 2L [place] [address] 11/28/2025 1:15 PM MANAGER SOURCING Office Visit [facility] - Ophthalmology [address] [place] [address], [place] [phone] Percy Matute MD [address] [place] [address] [place] [phone] 11/29/2025 11:00 AM MANAGER SOURCING Office Visit [facility] - GI [address] [facility], [place] [phone] Percy Yolanda, WARP KNITTER HELPER-FLY WORKER [address] [place] [phone] documented as of this encounter Visit Diagnoses Not on filedocumented in this encounter Additional Health Concerns Infection Onset Date Last Indicated Resolved Time CDIFF Under Investigation 07/20/2024 07/20/2024 4:33 AM CDT CDIFF Under Investigation 10/26/2024 11/07/2024 4:33 AM MANAGER SOURCING CDIFF Under Investigation 11/07/2024 11/07/2024 5:38 PM MANAGER SOURCING CDIFF Under Investigation 05/29/2025 05/29/2025 7:24 PM CDT CDIFF Under Investigation 07/25/2025 07/25/2025 6:57 PM CDT documented as of this encounter Care Teams Cryptozoologist Relationship Specialty Start Date End Date Joan Robins MD [address] [place], [place] [phone] PCP - General 02/14/19 12/14/23 Kerry Coffman DO [address] [facility] 2L [place] [address] PCP - General Internal Medicine 12/15/23 Kerry Coffman DO [address] [facility] 2L [place] [address] PCP - Attributed-[facility] MAN[employer]OR TAYLOR P4P 12/10/24 documented as of this encounter
--- OUTSIDE RECORDS SUMMARY | 2025-08-12 13:49 | XMS_ITS | Clinical Summary ---
Author Organization [facility] Address [address] [place] [phone] Care Team Providers Care Paratransit Operator Name Role Phone Kerry Coffman Primary Care Provider Allergies Active Allergy Reactions Criticality Noted Date Comments Penicillins Unknown 10/21/2018 Sulfa (Sulfonamide Antibiotics) Rash Medium 10/12 Medications gabapentin (NEURONTIN) 100 mg capsule TAKE 1 CAPSULE BY MOUTH 4 TIMES DAILY 04/05/20 20 Active atorvastatin (LIPITOR) 20 mg tablet TAKE 1 TABLET BY MOUTH ONCE DAILY DIRECTED 05/05/20 20 Active SUMAtriptan (IMITREX) 100 mg tablet TAKE 1 TABLET BY MOUTH ONCE DAILY NEEDED FOR HEADACHE (MAX OF 2 TABLETS PER DAY) 04/05/20 20 Active propranolol LA (INDERAL LA) 120 mg 24 hr capsule TAKE 1 CAPSULE BY MOUTH ONCE DAILY DIRECTED 05/07/20 20 Active fluticasone propionate (FLONASE) 50 mcg/actuation nasal spray USE 2 SPRAY(S) IN EACH NOSTRIL ONCE DAILY DIRECTED 04/05/20 20 Active sertraline (ZOLOFT) 100 mg tablet 2 (two) times a day 05/09/20 20 Active clonazePAM (KlonoPIN) 0.5 mg tablet daily 07/27/20 21 Active loperamide (IMODIUM) 2 mg capsule Take 1 capsule (2 mg total) by mouth 4 (four) times a day as needed for diarrhea Active pseudoephedrin e ER (SUDAFED) 120 mg 12 hr tabletIndicati ons:Nasal Congestion Take 1 tablet (120 mg total) by mouth every 12 (twelve) hours Active primidone (MYSOLINE) 250 mg tablet 2 (two) times a day 09/02/20 21 Active loratadine (CLARITIN) 10 mg tablet Take 1 tablet (10 mg total) by mouth daily 01/18/20 22 Active cyclobenzaprin e (FLEXERIL) 10 mg tablet Take 1 tablet (10 mg total) by mouth nightly as needed 02/04/20 22 Active calcium carbonate-patrica min D3 1,500 mg (600mg elemental) -800 unit per tablet Take 1 tablet by mouth 2 (two) times a day Active cyanocobalamin (Vitamin B-12) 500 mcg tablet Take 1 tablet (500 mcg total) by mouth daily Active blood glucose diagnostic (glucose blood) strip 1 each by Not Applicable route 2 (two) times a day 12/08/19 23 Active OneTouch Ultra Test strip USE 1 STRIP TO CHECK GLUCOSE TWICE DAILY 04/27/20 23 Active OneTouch Delica Plus Lancet 33 gauge misc USE 1 TO CHECK GLUCOSE ONCE DAILY 05/04/20 23 Active alendronate (FOSAMAX) 70 mg tablet Take 1 tablet (70 mg total) by mouth 06/17/20 24 Active ARIPiprazole (ABILIFY) 2 mg tablet Take 1 tablet (2 mg total) by mouth securities underwriter before breakfast 07/25/20 24 Active azelastine (ASTELIN) 137 mcg (0.1 %) nasal spray Administer 1 spray into affected nostril(s) 2 (two) times a day 08/11/20 24 Active latanoprost (XALATAN) 0.005 % ophthalmic solution Administer 1 drop into affected eye(s) nightly 07/28/20 24 Active polyethylene glycol 236-22.74-6.74 -5.86 gram solution as directed 07/28/20 24 Active Emgality Pen 120 mg/mL pen injector Inject 120 mg under the skin every 30 (thirty) days 11/02/19 25 Active hydroxychloroq uine (PLAQUENIL) 200 mg tablet Take 1.5 tablets (300 mg total) by mouth daily 135 tablet 1 11/21/19 25 Active donepeziL (ARICEPT) 10 mg tablet Take 1 tablet (10 mg total) by mouth daily 03/11/20 25 Active lamoTRIgine (LaMICtal) 150 mg tablet Take 1 tablet (150 mg total) by mouth 05/20/20 25 Active azaTHIOprine (IMURAN) 50 mg tablet Take 1 tablet by mouth once daily 30 tablet 2 07/27/20 Active azaTHIOprine (IMURAN) 50 mg tablet Take 1 tablet by mouth once daily 30 tablet 06/29/20 025 Discontinued Active Problems Problem Noted Date Diagnosed Date Rheumatoid arthritis with negative rheumatoid fa ctor 05/15/2023 Encounters Date Type Department Care Team Description 07/19/2025 10:00 AM CDT Infusion [facility] [address] [place] [address] Rheumatoid arthritis with negative rheumatoid factor, involving unspecified site (HCC) (Primary Dx) 07/05/2025 Telephone [facility] Medicine Rheumatology [address] [facility] 2[address] [place] [address] Collin Donahue 06/28/2025 Documentation [facility] Medicine Rheumatology [address] [place] [address] Floor [address] [place] [address] Collin Donahue Eye Exam (05-25-25 [facility] eye care ok for plaquenil) 06/21/2025 1:30 PM CDT Infusion [facility] [address] [place] [phone] Rheumatoid arthritis with negative rheumatoid factor, involving unspecified site (HCC) (Primary Dx) 06/19/2025 Orders Only [facility] [address] [place] [address] Brittni Pena RN 05/24/2025 Telephone [facility] [address] [place] [phone] Maria Alejandra Figueroa césar 05/24/2025 Results Follow-Up [facility] Rheumatology [address] [place] [address] Floor [address] [place] [address] Collin Donahue Erythrocyte sedimentation rate, CRP (acute phase), Comprehensive metabolic panel, Additional followed-up results: 3 05/23/2025 2:30 PM CDT Lab [facility] Medicine [facility] [address] [place] [address] [address] [place] [address] Rheumatoid arthritis with negative rheumatoid factor, involving unspecified site (HCC); High risk medication use 05/23/2025 2:00 PM CDT Office Visit [facility] Medicine Rheumatology [address] [facility] [address] [place] [address] Marialuisa Franklin NP Rheumatoid arthritis with negative rheumatoid factor, involving unspecified site (HCC) (Primary Dx); High risk medication use from Last 3 Months Surgical History Surgery Date Site/Laterality Comments OVARIAN CYSTECTOMY 10/12/2011 - 10/11/2012 ORTHOPEDIC SURGERY 10/12/1994 - 10/11/1995 right foot ORTHOPEDIC SURGERY 10/12/1960 - 10/11/1961 left middle finger COLONOSCOPY 09/11/2022 - 10/11/2022 Medical History Medical History Date Comments Rheumatic fever Migraines Diabetes mellitus Alcoholism (HCC) Bipolar 1 disorder (HCC) Hereditary essential tremor Restless legs Raynaud phenomenon IBS (irritable bowel syndrome) Arthritis Allergies Anxiety disorder Hyperlipidemia Diverticulitis Pneumonia Diverticulitis Osteoporosis Essential tremor Open-angle glaucoma Left eye Family History Medical History Relation Name Comments Heart disease Brother Alcohol abuse Father Diabetes Father Hypertension Father Depression Mother Heart disease Mother Relation Name Status Comments Brother Alive Father Mother Social History Tobacco Use Types Packs/Day Years Used Date Smoking Tobacco: Former Passive Smoke Exposure: Past Smokeless Tobacco: Never Tobacco Cessation:Counseling Given: Not Answered Hunger Vital Sign Answer Date Recorded Within the past 12 months, y ou worried that your food would run out before you got the money to buy more. Never true 06/21/20 25 Within the past 12 months, t he food you bought just didn't last and you didn't have money to get more. Never true 06/21/2025 Personal Safety Answer Date Recorded Have you ever been in or are you currently in a harmful physical or emotional relationship or is someone making you feel afraid or unsafe? Denies 07/19/2025 Comments Unknown Sex and Gender Information Value Date Recorded Sex Assigned at Not on file Legal Sex Female 10:45 PM COMMUNICATIONS OPERATOR Gender Identity Not on file Sexual Orientation Not on file Obstetrics History Last Filed Vital Signs Vital Sign Reading Time Taken Comments Blood Pressure 133/80 07/19/2025 11:35 AM CDT Pulse 60 07/19/2025 11:40 AM CDT Temperature 35.9 C (96.7 F) 07/19/2025 10:15 AM CDT Respiratory Rate 16 07/19/2025 10:15 AM CDT Oxygen Saturation 99% 07/19/2025 11:40 AM CDT Inhaled Oxygen Concentration - - Weight 63.7 kg (140 lb 8 oz) 07/19/2025 10:15 AM CDT Height 167.6 cm (5' 6) 07/19/2025 10:15 AM CDT Body Mass Index 22.68 07/19/2025 10:15 AM CDT Plan of Treatment Health Maintenance Due Date Last Done Comments Colon Cancer Screening-Colonoscopy 1955 Depression Screening 1955 Fall Risk Assessment 1955 Well Visit 65+ 2020 Covid-19 Vaccine (2024-11 6 season) 2025 01/18/2022, 08/06/2021, 12/18/2020 Influenza Vaccine (#1) 2025 , 09/29/2023, 07/03/2022, Additional history exists Osteoporosis Screening-Bone Density Scan 03/08/2026 03/08/2024, 08/08/2021 Breast Cancer Screening-Mammogram 06/23/2026 025, 06/23/2025 DTaP/Tdap/Td Vaccine (3 - Td or Tdap) 03/08/2033 03/08/2023, 06/17/2014 Hepatitis B Screening Completed 09/25/2016, 016 Hepatitis C Screening Completed 05/24/2020 Pneumococcal vaccine 65+ Completed 021, 07/02/2020, 2018, Additional history exists Zoster Vaccine Completed 10/15/2022, 12/11, 05/16/2021 Procedures Procedure Name Priority Date/Time Associated Diagnosis Comments EGFR Routine 05/23/2025 3:01 PM CDT High risk medication use DIFFERENTIAL AUTO Routine 05/23/2025 3:0 1 PM CDT High risk medication use CBC WITH AUTO DIFFERENTIAL Routine 05/23/2025 3:01 PM CDT High risk medication use COMPREHENSIVE METABOLIC PANEL Routine 05/23/2025 3:01 PM CDT High risk medication use CRP (ACUTE PHASE) Routine 05/23/2025 3:0 1 PM CDT Rheumatoid arthritis with negative rheumatoid factor, involving unspecified site (HCC) ERYTHROCYTE SEDIMENTATION RATE Routine 05/23/2025 3:01 PM CDT Rheumatoid arthritis with negative rheumatoid factor, involving unspecified site (HCC) DEXA AXIAL SKELETON BONE DENSITY 1 OR [...] Recently Relevant to Health Maintenance Results * eGFR (05/23/2025 3:01 PM CDT) eGFR 64 >=60 mL/min/1. 73 m2 Comment: Interpretive Data [...] interpretive data was last reviewed 2021. Blood 05/23/2025 3:01 PM CDT 05/23/2025 3:59 PM CDT us Marialuisa Franklin NP LAB BLOOD ORDERABLES Final Result [facility] Department [place] [address] * Differential, auto (05/23/2025 3:01 PM CDT) Neutrophil abs 2.57 1.50 - 6.50 K/cumm Imm gran abs 0.01 0.00 - 0.10 K/cumm [facility] Lymphocyte abs 1.32 0.80 - 3.30 K/cumm [facility] Monocyte abs 0.62 0.20 - 0.80 K/cumm [facility] Eosinophil abs 0.09 0.00 - 0.50 K/cumm [facility] Basophil abs 0.05 0.00 - 0.10 K/cumm [facility] Neutrophil pct 55.2 % [facility] Comment: Interpretive Data Percent cell count reference ranges are not reported, since discordance with absolute values may lead to misinterpretation of CBC data. Current Interpretive Data was last revised on 2018. Imm gran pct 0.2 % [facility] Comment: Interpretive Data Percent cell count reference ranges are not reported, since discordance with absolute values may lead to misinterpretation of CBC data. Current Interpretive Data was last revised on 2018. Lymphocyte pct 28.3 % [facility] Comment: Interpretive Data Percent cell count reference ranges are not reported, since discordance with absolute values may lead to misinterpretation of CBC data. Current Interpretive Data was last revised on 2018. Monocyte pct 13.3 % [facility] Comment: Interpretive Data Percent cell count reference ranges are not reported, since discordance with absolute values may lead to misinterpretation of CBC data. Current Interpretive Data was last revised on 2018. Eosinophil pct 1.9 % [facility] Comment: Interpretive Data Percent cell count reference ranges are not reported, since discordance with absolute values may lead to misinterpretation of CBC data. Current Interpretive Data was last revised on 2018. Basophil pct 1.1 % [facility] Comment: Interpretive Data Percent cell count reference ranges are not reported, since discordance with absolute values may lead to misinterpretation of CBC data. Current Interpretive Data was last revised on 2018. Blood 05/23/2025 3:01 PM CDT 05/23/2025 4:00 PM CDT Marialuisa Franklin CRUSHER LOADER OPERATOR LAB BLOOD ORDERABLES Final Result [facility] [place] [address] * CBC with auto differential (05/23/2025 3:01 PM CDT) WBC 4.66 3.80 - 9.90 K/cumm Hgb 12.6 11.9 - 15.5 g/dL [facility] Hct 38.2 35.6 - 45.5 % [facility] Plt 244 150 - 400 K/cumm [facility] MPV 10.2 9.1 - 12.3 fL [facility] RBC 3.99 3.90 - 5.20 M/cumm [facility] MCV 95.7 81.3 - 96.4 fL [facility] MCH 31.6 27.1 - 33.3 pg [facility] MCHC 33.0 32.3 - 35.7 g/dL [facility] RDW CV 13.1 11.1 - 14.9 % [facility] RDW SD 46.0 35.7 - 48.1 fL [facility] NRBC abs 0.00 0.00 - 0.01 K/cumm [facility] Blood 05/23/2025 3:01 PM CDT 05/23/2025 4:00 PM CDT Marialuisa Franklin CRUSHER LOADER OPERATOR LAB BLOOD ORDERABLES Final Result Performing Organization Address City/[facility]/ZIP Co de Phone Number [facility] Department [place] [address] * Erythrocyte sedimentation rate (05/23/2025 3:01 PM CDT) [facility] Erythrocyte sedimentation rate 8 1 - 30 mm/hr Blood 05/23/2025 3:01 PM CDT 05/23/2025 4:00 PM CDT Marialuisa Franklin CRUSHER LOADER OPERATOR LAB BLOOD ORDERABLES Final Result Performing Organization Address City/[facility] Co de Phone Number [facility] [place] [address] * CRP (acute phase) (05/23/2025 3:01 PM CDT) [facility] CRP 0.7 <=10.0 mg/L Blood 05/23/2025 3:01 PM CDT 05/23/2025 3:59 PM CDT Marialuisa Franklin CRUSHER LOADER OPERATOR LAB BLOOD ORDERABLES Final Result Performing Organization Address [facility] [place] [address] * Comprehensive metabolic panel (05/23/2025 3:01 PM CDT) [facility] Sodium 139 135 - 145 mmol/L Potassium, pl 4.3 3.3 - 4.9 mmol/L [facility] Chloride 101 97 - 110 mmol/L [facility] CO2 30 22 - 32 mmol/L [facility] Anion gap 8 2 - 15 mmol/L [facility] BUN 8 6 - 25 mg/dL [facility] Creatinine 0.95 0.60 - 1.10 mg/dL [facility] Glucose 95 70 - 199 mg/dL [facility] [...] interpretive data was last revised 2022. Calcium 9.6 8.5 - 10.3 mg/dL [facility] Bilirubin, total 0.2 0.1 - 1.2 mg/dL [facility] Protein, pl 7.2 6.5 - 8.5 g/dL [facility] Albumin 4.4 3.5 - 5.0 g/dL [facility] Alk phos 91 40 - 130 Units/L [facility] ALT 21 7 - 45 Units/L [facility] AST 19 10 - 45 Units/L [facility] Blood 05/23/2025 3:01 PM CDT 05/23/2025 3:59 PM CDT Marialuisa Franklin CRUSHER LOADER OPERATOR LAB BLOOD ORDERABLES Final Result [facility] Department [place] [address] * Dexa Axial Skeleton Bone Density 1 or 2 Site (03/08/2024 9:24 AM CDT) Anatomical Region Laterality Modality Body N/A Radiographic Erna ging Narrative 03/08/2024 9:48 PM CDT Patient Name: Sheri Shin Date of : 1955 Date of scan: 03/08/2024 Bone mineral density was performed on a HoloArtimi Discovery Densitometer. Based on machine cross-calibration and [...] by the International Society of Clinical Densitometry. [id number] Marialuisa Franklin NP IM DXA PROCEDURES Final R esult * Hepatitis panel, acute (05/24/2020 9:45 AM CDT) Pathologist [facility] Hep A IgM Nonreactive [facility]reactive [facility] Comment: Interpretive Data: If Hep A IgM Ab is reported as Equivocal, a new sample should be drawn in two weeks for testing. Current interpretive data was last revised on 19. Hep B core IgM Nonreactive Nonreactive [facility] Comment: Interpretive Data If HepB Core [...] - Final [facility] [place] [address] from Last 3 Months or Most Recently Relevant to Health Maintenance Insurance [employer] [facility] MEDICARE MEDICARE [employer] Care Teams Paratransit Operator Relationship Specialty Start Date End Date Kerry Coffman DO [address] [place] [address] PCP - General Internal Medicine 04/19/24
--- OUTSIDE RECORDS SUMMARY | 2025-08-12 13:49 | XMS_ITS | Encounter Summary ---
Author Organization [facility] Address [address] [place] [address] Care Team Providers Care Inspector Fuel Hose Name Role Phone Meghna Kerry Primary Care Provider [phone] MeghnaAlvertoKerry DO Unavailable [phone] Reason for Visit * Reason Onset Date Comments Refill Request 06/27/2025 Encounter Details Date Type Department Care Team (Late st Contact Info) Description 06/27/2025 Refill [facility] - Ophthalmology [address] [place] [phone] Percy Matute MD [address] [place] [address] [place] [address] Refill Request Social History Tobacco Use Types Packs/Day Years [...] Sex Assigned at Female 09/16/2024 2:41 PM BENCH PATTERNMAKER METAL Legal Sex Female 5:56 AM BENCH PATTERNMAKER METAL Gender Identity Female 09/16/2024 2:41 PM BENCH PATTERNMAKER METAL Sexual Orientation Straight 09/16/2024 2: 41 PM BENCH PATTERNMAKER METAL documented as of this encounter Functional Status [...] Mignon Olivares RN documented in this encounter Miscellaneous Notes * Telephone Encounter - Harris Cho - 06/27/2025 8:10 AM CDT Good morning! Ms. Shin called in stating her RX was not called in since her last visit. Latanoprost BID. # [phone]. documented in this encounter Plan of Treatment Upcoming Encounters Date Type Department Care Team (Late st Contact Info) Description 08/16/2025 3:00 PM BENCH PATTERNMAKER METAL Office Visit [facility] - Allergy [address] [place] [address], [place] [address] Papito Morales MD [address] [place] [address] OF ALLERGY/[place] [address] 08/30/2025 9:40 AM BENCH PATTERNMAKER METAL Office Visit [facility] - Dermatology [address] [place] [address], [place] [phone] Partha Calhoun MD [address] [place] [address] [address] [place] [phone] 10/26/2025 1:00 PM BENCH PATTERNMAKER METAL Office Visit [facility] - Neurology [address] [place] [address], [place] [phone] Moncho Salcedo, GREENHOUSE FLORIST-CERTIFIED PHLEBOTOMIST [address] [place] [address] [address] [place] [phone] 11/20/2025 10:30 AM BENCH PATTERNMAKER METAL [facility] [address] [place] [address], [place] [phone] Kerry Coffman DO [address] [place] [address] [address] DIV [place] [address] 11/28/2025 1:15 PM BENCH PATTERNMAKER METAL Office Visit [facility] - Ophthalmology [address] [place] [phone] Percy Matute MD [address] [place] [address] GL [place] [phone] 11/29/2025 11:00 AM BENCH PATTERNMAKER METAL Office Visit [facility] - GI [address] [place] [phone] Yolanda Greer, GREENHOUSE FLORIST-CERTIFIED PHLEBOTOMIST [address] [place] [phone] documented as of this encounter Goals Goal [...] Last Indicated Resolved Time CDIFF Under Investigation 07/25/2025 07/25/2025 6:57 PM CDT documented as of this encounter Care Teams Inspector Fuel Hose Relationship Specialty Start Date End Date Kerry Coffman DO [address] DIV OF [facility] [place] [address] PCP - General Internal Medicine 12/15/23 Kerry Coffman DO [address] DIV OF [facility] [place] [address] PCP - Attributed-[facility] TAYLOR P4Mary Jane 12/10/24 documented as of this encounter
--- NOTE | 2025-08-12 15:58 | ED.FALL ---
HPI - Fall General Chief Complaint: Fall Stated Complaint: from UC, fell yest hit head Time Seen by Provider: 08/12/25 15:55 Source: patient and family Mode of arrival: ambulatory Limitations: no limitations History of Present Illness HPI Narrative: 70 years old white female tripped and fell at home last night, complaining of right forehead pain and bruises, right hand pain. Patient denies alcohol intake last night, fever, chills, nausea, vomiting, diarrhea or constipation or chest pain or shortness of breath or neck pain. On arrival to the ED started having headache. Patient had ibuprofen last night, not today. Related Data Home Medications ?Medication ?Instructions ?Recorded ?Confirmed ?Last Taken ?Type atorvastatin 20 mg tablet 1 mg PO DAILY 05/01/21 03/29/25 Unknown History gabapentin 100 mg capsule 200 mg PO Q12H 05/01/21 03/29/25 12/21/24 History lamotrigine 200 mg tablet 1 mg PO BID 05/01/21 03/29/25 12/21/24 History propranolol 120 mg capsule,24 1 mg PO DAILY 05/01/21 03/29/25 12/21/24 History hr,extended release sertraline 100 mg tablet 1 mg PO BID 05/01/21 03/29/25 12/21/24 History clonazepam 0.5 mg tablet 0.25 mg PO DAILY 12/08/21 03/29/25 12/21/24 History loratadine 10 mg tablet 10 mg PO DAILY 12/08/21 03/29/25 Unknown History sumatriptan succinate 100 mg tablet 100 mg PO BID PRN migraine headache 12/08/21 03/29/25 Unknown History calcium 300 mg-D3 20 mcg-magnesium 1 tablet PO DAILY 02/03/23 03/29/25 Unknown History 25 mg-coppr 0.5 [id number]-ulgu-evla tablet (Caltrate-D3 Plus Minerals) azathioprine 50 mg tablet 25 mg PO DAILY 04/18/24 03/29/25 Unknown History alendronate 70 mg tablet 70 mg PO WEEKLY 07/21/24 03/29/25 Unknown History azelastine 137 mcg (0.1 %) nasal 1 spray intranasal .PM 12/20/24 03/29/25 Unknown History spray hydroxychloroquine 200 mg tablet 200 mg PO HS 12/20/24 03/29/25 Unknown History latanoprost 0.005 % eye drops 1 drp EACH EYE QPM 12/20/24 03/29/25 Unknown History primidone 250 mg tablet 250 mg PO Q12H 12/20/24 03/29/25 Unknown History abatacept (with maltose) 500 mg IV MONTHLY 03/29/25 03/29/25 11/15/24 History aripiprazole 2 mg tablet 2 mg PO DAILY 03/29/25 03/29/25 Unknown History loperamide 2 mg capsule (Imodium 2 mg PO Q6H PRN loose stool 03/29/25 03/29/25 Unknown History A-D) galcanezumab-gnlm 120 mg/mL mg subcut 07/19/25 Unknown History subcutaneous pen injector (Emgality Pen) donepezil 10 mg tablet mg 08/12/25 Unknown History lamotrigine 150 mg tablet mg 08/12/25 Unknown History memantine 5 mg tablet mg 08/12/25 Unknown History Allergies Allergy/AdvReac Type Severity Reaction Status Date / Time Penicillins Allergy Severe Swelling Verified 08/12/25 13:52 Sulfa (Sulfonamide Allergy Intermediate Rash Verified 08/12/25 13:52 Antibiotics) Review of Systems Review of Systems: All systems reviewed & are unremarkable except as noted in HPI and below PMFSH Past Medical History Medical History Essential tremor Ataxia Restless leg syndrome Rheumatoid arthritis Arthritis Osteoporosis History of UTI Constipation Diarrhea High cholesterol History of falling Memory loss Chronic headaches Rib fracture Hx of migraines Diabetes Bipolar disorder Depression Anxiety Menopause History of alcohol abuse Sober for 9 years Bipolar depression Tremor hands HLD (hyperlipidemia) Surgical History Surgical History History of tonsillectomy History of hand surgery Left History of foot surgery Right x2 Family History Family History Father , Data 97 related to pneumonia Alzheimers disease Mother , Related to fall, Heart disease Unknown Hypertension Heart disease Diabetes mellitus High cholesterol Depression Arthritis Alcoholism Social History Social History Social History: former smoker Smoking packs per day: 2 Smoking cigarettes per day: 40.0 Years smoked: 24 Smoking pack-years: 48.00 Smoking status: Never smoker Tobacco type: cigarettes Second hand tobacco smoke exposure: No Smoking end date: 10/12/96 Additional smoking assessment comments: Denies Alcohol intake: never Alcohol use details: Quit 14 yrs ago Substance use: never Substance use type: does not use Do You Feel Safe in your Home?: Yes Lack of Transportation: No Lack of Food: Never True Current Housing: I Have Housing Concerned About Future Housing: No Difficulty Paying Gas/Electric Bills: No Difficulty Paying for Meds: No Currently Unemployed: No Education: Master's Degree or Higher Difficulty w/ Childcare or Family Care: No Living arrangements: with family Additional living arrangements comments: Roommate Additional occupation/education comments: Disable Gender identity (if verbalized by the patient): Female Sexual Orientation (if Verbalized by the Patient): Straight or Heterosexual Spiritual care concerns: No Exam Narrative: GENERAL APPEARANCE: WELL-DEVELOPED, WELL-NOURISHED SKIN: NORMAL COLOR HEAD: RIGHT FOREHEAD BRUISES EYES: CLEAR CONJUNCTIVA RIGHT PUPIL BIGGER THAN THE LEFT 1 WHICH IS CHRONIC PATIENT HAD HISTORY OF SCAR TISSUE OF THE RIGHT CORNEA ENT: OROPHARYNX NORMAL, EARS NORMAL, NOSE NORMAL NECK: SUPPLE, NONTENDER CHEST AND RESPIRATORY: AIRWAY PATENT, NO RESPIRATORY DISTRESS, NO ACCESSORY MUSCLE USE HEART: REGULAR RATE/RHYTHM ABDOMEN: SOFT, NONTENDER, NO ORGANOMEGALY, QUIET BOWEL SOUNDS VASCULAR: NORMAL PERIPHERAL PULSES, NORMAL CAPILLARY REFILL. MUSCULOSKELETAL: DIFFUSE TENDERNESS OF THE RIGHT HAND MAINLY RING FINGER, BRUISED, SWELLING NEUROLOGIC: ALERT AND ORIENTED ?3, TIE IN HAND IS NORMAL TESTED, NO GROSS MOTOR DEFICIT Course Vital Signs Vital signs: Vital Signs Temperature 36.6 C 08/12/25 13:46 Pulse Rate 68 08/12/25 13:46 Respiratory Rate 15 08/12/25 13:46 Blood Pressure 96/53 L 08/12/25 13:46 Pulse Oximetry 100 08/12/25 13:46 Oxygen Delivery Room Air 08/12/25 13:46 Temperature 36.6 C 08/12/25 13:46 Pulse Rate 58 L 08/12/25 17:00 Respiratory Rate 16 08/12/25 17:00 Blood Pressure 113/78 08/12/25 17:00 Pulse Oximetry 100 08/12/25 17:00 Oxygen Delivery Room Air 08/12/25 13:46 MDM - Fall MDM Narrative Medical decision making narrative: PATIENT HAD A FALL LAST NIGHT, VITAL SIGNS ARE STABLE PHYSICAL EXAMINATION SHOWING BRUISES, CONTUSION OF THE RIGHT FOREHEAD AND RIGHT HAND CT HEAD, CERVICAL SPINE AND RIGHT ORBIT SHOWED NO ACUTE ABNORMALITY, X-RAY OF THE RIGHT HAND SHOWED NO ACUTE OSSEOUS ABNORMALITY DIAGNOSIS CLOSED HEAD INJURY, CONTUSION THE PT WAS DISCHARGED TO HOME.THE PT,S CONDITION UPON DISCHARGE WAS FAIR,EDUCATION WAS PROVIDED TO THE PT IN REFERENCE TO THE FINAL IMPRESSION,DISCHARGE STUDY RESULTS,TREATMENT,PROGNOSIS AND NEED FOR FOLLOW UP . Differential Diagnosis Differential diagnosis: Likely concussion without loss of consciousness and other (RIGHT HAND CONTUSION VERSUS FRACTURE) Imaging Data Radiologist's impression: Impressions Head CT 08/12/25 16:54 Impression: 1.No acute intracranial abnormality. Cervical Spine CT 08/12/25 16:56 Impression: No acute abnormality. Orbit CT 08/12/25 16:59 IMPRESSION: No acute fracture Hand X-Ray 08/12/25 17:20 Impression: No acute fracture or malalignment. Critical Care Time Critical Care Time Critical Care Time: No Discharge Plan Discharge Clinical Impression: CHI (closed head injury), Contusion of dorsum of right hand Patient Disposition: Home Condition: Stable Instructions: Head Injury (ED), Contusion in Adults (ED), Hematoma (ED) Additional Instructions: RETURN IF SYMPTOMS ARE WORSENING , CALL YOUR FAMILY PHYSICIAN FOR APPOINTMENT, TAKE TYLENOL NEEDED FOR ACHES AND PAIN, CONTINUE HOME MEDICATIONS. Patient Language: Cymro Prescriptions: No Action azathioprine 50 mg tablet 25 mg PO DAILY alendronate 70 mg tablet 70 mg PO WEEKLY Patient Comments: Take on saturdays Emgality Pen 120 mg/mL pen injector SUBCUT atorvastatin 20 mg tablet 1 mg PO DAILY Patient Comments: HS lamotrigine 200 mg tablet 1 mg PO BID sertraline 100 mg tablet 1 mg PO BID gabapentin 100 mg capsule 200 mg PO Q12H propranolol 120 mg capsule,extended release 24 hr 1 mg PO DAILY sumatriptan succinate 100 mg tablet 100 mg PO BID PRN (Reason: migraine headache) loratadine 10 mg tablet 10 mg PO DAILY clonazepam 0.5 mg tablet 0.25 mg PO DAILY lamotrigine 150 mg tablet donepezil 10 mg tablet memantine 5 mg tablet Caltrate-D3 Plus Minerals 300 mg-800 unit -25 mg-0.5 mg tablet 1 tablet PO DAILY azelastine 137 mcg (0.1 %) spray,non-aerosol 1 spray INTRANASAL .PM hydroxychloroquine 200 mg tablet 200 mg PO HS Patient Comments: HS latanoprost 0.005 % drops 1 drp EACH EYE QPM primidone 250 mg tablet 250 mg PO Q12H aripiprazole 2 mg tablet 2 mg PO DAILY loperamide [Imodium A-D] 2 mg capsule 2 mg PO Q6H PRN (Reason: loose stool) abatacept (with maltose) 500 mg IV MONTHLY Patient Comments: unknown dose Follow-up/Referrals: PHYSICIAN NOT ON STAFF,NONSTAFF [Primary Care Provider]
--- OUTSIDE RECORDS SUMMARY | 2025-08-12 16:20 | XMS_ITS | Encounter Summary ---
Author Organization [facility] Address [address] [place] [address] Care Team Providers Care Valet Attendant Name Role Phone Meghna Kerry FRANKS Primary Care Provider [phone] Kerry Coffman DO Unavailable [phone] Reason for Visit * Reason Onset Date Comments Appointment 10/20/2024 Encounter Details Date Type Department Care Team (Late st Contact Info) Description 10/20/2024 Telephone [facility] - Centralized Scheduling [address] [place] [phone] Moncho Salcedo, LEAD SIMULATION MODELING ENGINEER-RESEARCH DIETITIAN [address] [phone] Appointment Social History Tobacco Use [...] Sex Assigned at Female 09/16/2024 2:41 PM FORMING TUBE SELECTOR Legal Sex Female 5:56 AM FORMING TUBE SELECTOR Gender Identity Female 09/16/2024 2:41 PM FORMING TUBE SELECTOR Sexual Orientation Straight 09/16/2024 2: 41 PM FORMING TUBE SELECTOR documented as of this encounter Functional Status [...] to schedule for a Short Procedure with CONCRETE STONE FINISHING SUPERVISOR Settu in November. ING TUBE SELECTOR documented in this encounter Plan of Treatment Upcoming Encounters Date Type Department Care Team (Late st Contact Info) Description 08/16/2025 3:00 PM FORMING TUBE SELECTOR Office Visit [facility] - Allergy [address] [place] [address], [place] [address] Papito Morales MD [address] [place] [address] [address] DIV OF ALLERGY/[place] [address] 08/30/2025 9:40 AM FORMING TUBE SELECTOR Office Visit [facility] - Dermatology [address] [place] [address], [place] [address] Partha Calhoun MD [address] [place] [address] [address] [place] [address] 10/26/2025 1:00 PM FORMING TUBE SELECTOR Office Visit [facility] - Neurology [address] [place] [address], [place] [phone] Moncho Salcedo, LEAD SIMULATION MODELING ENGINEER-RESEARCH DIETITIAN [address] [place] [address] [address] [place] [phone] 11/20/2025 10:30 AM FORMING TUBE SELECTOR Office Visit [facility] - Internal Med [address] [place] [address], [place] [phone] Kerry Coffman DO [address] [place] [address] [address] [place] [address] 11/28/2025 1:15 PM FORMING TUBE SELECTOR Office Visit [facility] - Ophthalmology [address] [place] [address], [place] [phone] Percy Matute MD [address] [place] [address] [place] [phone] 11/29/2025 11:00 AM FORMING TUBE SELECTOR Office Visit [facility] - GI [address] [place] [phone] Yolanda Greer, LEAD SIMULATION MODELING ENGINEER-RESEARCH DIETITIAN [address] [place] [phone] documented as of this encounter Goals Goal [...] CDIFF Under Investigation 10/26/2024 11/07/2024 4:33 AM FORMING TUBE SELECTOR CDIFF Under Investigation 11/07/2024 11/07/2024 5:38 PM FORMING TUBE SELECTOR CDIFF Under Investigation 05/29/2025 05/29/2025 7:24 PM CDT CDIFF Under Investigation 07/25/2025 07/25/2025 6:57 PM CDT documented as of this encounter Care Teams Valet Attendant Relationship Specialty Start Date End Date Kerry Coffman DO [address] [place] [address] PCP - General Internal Medicine 12/15/23 Kerry Coffman DO [address] 2[address] DIV OF [facility] [place] [address] PCP - Attributed-[facility] MANSO[facility] TAYLOR P4P 12/10/24 documented as of this encounter
--- OUTSIDE RECORDS SUMMARY | 2025-08-12 16:20 | XMS_ITS | Clinical Summary ---
Author Organization [facility] Address [address] [place] [address] Phone Care Team Providers Care Occupational Medicine Officer Name Role Phone Joan Robins MD Primary [...] on file Legal Sex Female 10:36 AM AVIATION PROGRAM MANAGER Gender Identity Not on file Sexual Orientation Not on file Last Filed Vital Signs Vital Sign Reading Time Taken Comments Blood Pressure 125/81 10/21/2018 12:15 PM AVIATION PROGRAM MANAGER Pulse 72 10/21/2018 12:25 PM AVIATION PROGRAM MANAGER Temperature 36.3 C (97.3 F) 10/21/2018 11:32 AM AVIATION PROGRAM MANAGER Respiratory Rate 18 10/21/2018 12:25 PM AVIATION PROGRAM MANAGER Oxygen Saturation 99% 10/21/2018 12:25 PM AVIATION PROGRAM MANAGER Inhaled Oxygen Concentration - - Weight 60.3 kg (133 lb) 10/21/2018 11:32 AM AVIATION PROGRAM MANAGER Height 170.2 cm (5' 7) 10/21/2018 11:32 AM AVIATION PROGRAM MANAGER Body Mass Index 20.83 10/21/2018 11:32 AM AVIATION PROGRAM MANAGER Plan of Treatment Health Maintenance Due Date [...] to complete this topic Insurance Care Teams Occupational Medicine Officer Relationship Specialty Start Date End Date Joan Robins MD [address] [place] [address] PCP - General Internal Medicine 10/21/18
--- OUTSIDE RECORDS SUMMARY | 2025-08-12 16:20 | XMS_ITS | Clinical Summary ---
Author Organization [facility] Address [address] [place] [address] Care Team Providers Care Aligning Inspector Name Role Phone Kerry Coffman DO Primary Care Provider [phone] Kerry Coffman DO Unavailable [phone] Source Comments [facility],non-owned Affiliates and Associated Physician Practices is amultiple site organization consisting of ambulatory clinics and hospital sitesin [place], [place], [place] and [place]. This disclosure is being madepursuant to the Care Everywhere program and may not contain all information available regarding this patient. Last updated 18.[facility] Allergies Active Allergy Reactions Criticality Noted Date [...] long-term current use of insulin ([facility]) USE 1 STRIP TO CHECK GLUCOSE TWICE DAILY 100 strip 11 07/27/20 24 Active atorvastatin (Lipitor) 20 MG tablet Take 1 (one) tablet by mouth at bedtime 90 tablet 3 08/05/20 24 Active fluticasone propionate (Flonase) 50 MCG/ACT nasal sprayIndications :Chronic rhinitis,Allergi c rhinitis, unspecified seasonality, unspecified trigger,Chronic daily headache Clive 2 (two) sprays into each nostril once daily 16 g 6 08/11/20 24 Active Blood Glucose Monitoring Suppl (ONE TOUCH ULTRA 2) w/Device KITIndications:T ype 2 diabetes mellitus with hyperglycemia, without long-term current use of insulin ([facility]) Use 1 device as directed 1 kit [...] rhinitis, unspecified seasonality, unspecified trigger,Chronic daily headache Clive 1 (one) spray into each nostril 2 [...] Description 08/09/2025 Telephone [facility] - [address] [phone] Josee You RN Pre Authorization 08/02/2025 Results Follow-Up [facility] - GI [address] [place] [phone] Yolanda Greer APRN-CNP 07/26/2025 3:00 PM CDT Office Visit [facility] - Neurology [address] [place] [phone] Moncho Salcedo APRN-CNP Memory impairment (Primary Dx); Cervicogenic headache; Cognitive decline 07/26/2025 Travel 07/21/2025 Orders Only [facility] - [address] [phone] Yolanda Greer, ASSISTANT MEN'S SOCCER COACH-PATIENT SERVICES SPECIALIST 07/18/2025 Telephone [facility] - Endocrinology [address] [place] [phone] Haydee Simmons, SHADIA Blood Glucose (Sugar) Review 07/10/2025 Telephone [facility] - GI [address] [place] [phone] Wong Braun, SHADIA Follow-up 07/07/2025 Telephone [facility] - GI [address] [place] [address], [place] [address] Yolanda Greer APRN-ARELY LABS ONLY 07/06/2025 Orders Only [facility] - Internal Med [address] [place] [phone] Kerry Coffman DO 07/05/2025 Travel 07/03/2025 Refill [facility] - Neurology [address] [place] [phone] Hyacinth Arriaga APRN-PATIENT SERVICES SPECIALIST Refill Request 06/28/2025 Orders Only [facility] - Ophthalmology [address] [place] [phone] Percy Matute MD 06/27/2025 Refill [facility] - Ophthalmology [address] [place] [phone] Percy Matute MD Refill Request 06/16/2025 Telephone [facility] - Neurology [address] [place] [phone] Hyacinth Arriaga APRN-PATIENT SERVICES SPECIALIST Medication Management 06/16/2025 Refill [facility] - Neurology [address] [place] [phone] Moncho Salcedo APRN-PATIENT SERVICES SPECIALIST MEDICATION REFILL 06/14/2025 Refill [facility] - Neurology [address] [place] [phone] Hyacinth Arriaga APRN-PATIENT SERVICES SPECIALIST MEDICATION REFILL 06/08/2025 Refill [facility] Neurology [address] [place] [phone] Hyacinth Arriaga APRN-PATIENT SERVICES SPECIALIST MEDICATION REFILL 06/05/2025 8:30 AM CDT Office Visit [facility] - Internal Med [address] [place] [phone] Kerry Coffman, Routine general medical examination at health care facility (Primary Dx); Type 2 diabetes mellitus with hyperglycemia, without long-term current use of insulin ([facility]); Rheumatoid arthritis with negative rheumatoid factor, involving unspecified site ([facility]); Bipolar affective disorder, remission status unspecified ([facility]); Chronic diarrhea; Screening mammogram for breast cancer 06/05/2025 Travel 05/29/2025 11:00 AM CDT Office Visit [facility] [address] [place] [phone] Yolanda Greer APRN-CNP Acute nausea with nonbilious vomiting (Primary Dx); Chronic diarrhea; History of peptic ulcer; Abdominal bloating 05/29/2025 Travel 05/25/2025 1:15 PM CDT Office Visit [facility] - Ophthalmology [address] [place] [phone] Percy Matute MD Long-term use of Plaquenil (Primary Dx); Primary open angle glaucoma (POAG) of left eye, mild stage 05/25/2025 1:05 PM CDT Clinical Support [facility] - Ophthalmology [address] [place] [phone] Percy Matute MD Long-term use of Plaquenil (Primary Dx) 05/25/2025 1:00 PM CDT Clinical Support [facility] - Ophthalmology [address] [place] [phone] Percy Matute MD Long-term use of Plaquenil (Primary Dx) 05/25/2025 Travel 05/15/2025 Refill [facility] - Neurology [address] [place] [address], [place] [phone] Hyacinth Arriaga, ASSISTANT MEN'S SOCCER COACH-PATIENT SERVICES SPECIALIST Refill Request from Last 3 Months Immunizations [...] Sex Assigned at Female 09/16/2024 2:41 PM SPOOLING MACHINE OPERATOR Legal Sex Female 5:56 AM SPOOLING MACHINE OPERATOR Gender Identity Female 09/16/2024 2:41 PM SPOOLING MACHINE OPERATOR Sexual Orientation Straight 09/16/2024 2: 41 PM SPOOLING MACHINE OPERATOR Last Filed Vital Signs Vital Sign [...] st Contact Info) Description 08/16/2025 3:00 PM SPOOLING MACHINE OPERATOR Office Visit [facility] - Allergy [address] [place] [address], [place] [phone] Papito Morales MD [address] [place] [address] 2L DIV OF ALLERGY/[place] [address] 08/30/2025 9:40 AM SPOOLING MACHINE OPERATOR Office Visit [facility] - Dermatology [address] [place] [address], [place] [phone] Partha Calhoun MD [address] [place] [address] 3L [place] [phone] 10/26/2025 1:00 PM SPOOLING MACHINE OPERATOR Office Visit [facility] - Neurology [address] [place] [phone] Moncho Salcedo, ASSISTANT MEN'S SOCCER COACH-PATIENT SERVICES SPECIALIST [address] [place] [address] 1L [place] [phone] 11/20/2025 10:30 AM SPOOLING MACHINE OPERATOR Office Visit [facility] - Internal Med [address] [place] [phone] Kerry Coffman DO [address] [place] [address] 2L DIV [place] [address] 11/28/2025 1:15 PM SPOOLING MACHINE OPERATOR Office Visit [facility] - Ophthalmology [address] [place] [address], [place] [phone] Percy Matute MD [address] [place] [address] GL [place] [phone] 11/29/2025 11:00 AM SPOOLING MACHINE OPERATOR Office Visit [facility] - GI [address] [place] [phone] Yolanda Greer, ASSISTANT MEN'S SOCCER COACH-PATIENT SERVICES SPECIALIST [address] [place] [phone] Health Maintenance Due Date Last Done Comments [...] as prescribed Medical Devices Implanted Type Area Day Treatment Clinician/Art Therapist Device Identifier Shelf Expiration Date Model / Serial / Lot Slnt Dura Duraseal Pg Trilysine Amine 5 Implanted:Qty: 1 on 03/17/2022 by Jackelyn Yang MD at [facility] Left: Cranial QA on Request 08/11/2023 [id number] / / [id number] Guardian Branial Dunseith Hole Cover Sys Implanted:Qty: 1 on 03/17/2022 by Jackelyn Yang MD at [facility] Left: Cranial [employer] 01/01/2024 6010 / / [id number] Directional Lead Implanted:Qty: 1 on 03/17/2022 by Shailesh North MD at [facility] Left: Cranial [employer] 09/25/2023 6172 / [id number] / Lead Extension Implanted:Qty: 1 on 03/24/2022 by Shailesh North MD at [facility] Left: Neck [employer] 01/15/2024 6371ANS / / [id number] Generator Implanted:Qty: 1 on 03/24/2022 by Shailesh North MD at [facility] Left: Chest [employer] 11/19/2023 6662 / / [id number] [place] Spnl 140mm 6.35mm Ti Str Implanted:Qty: 1 on 08/29/2022 by Shailesh North MD at [facility] Right: Scalp [employer] 04/02/2024 6010 / / [employer] Dbs System Implanted:Qty: 1 on 08/29/2022 by Joshua Gill MD at [facility] Right: Brain 03/19/2024 6172 / [id number] / Description:cost per Levar [employer] D[employer] System Implanted:Qty: 1 on 08/29/2022 by Joshua Gill MD at [facility] Right: Chest Wall 04/23/2024 6373 / [id number] / Description:cost per levar Procedures Procedure Name [...] ENDOSCOPY, COLON, SCREENING Routine 11/11/2024 9:52 AM SPOOLING MACHINE OPERATOR from Last 3 Months or Most Recently [...] (GDH) with Reflex to PCR, order code [id number] or Clostridium difficile toxin B, Qualitative real time PCR, test code 17776 to be more sensitive and timely methods for the diagnosis of C. difficile colitis. For additional information, please refer to http://education.[employer]/faq/FFC179 (This link is being provided for informational/ educational purposes only.) REPORT COMMENT: SPLIT 07/21/2025 FROM [id number] Test Performed at: [facility] [employer] [address] [place] [address] JARRELL CALDERON MD,PHD,EDGARDO 07/25/2025 12:3 6 PM CDT 07/26/2025 4:17 AM CDT us Yolanda Greer ASSISTANT MEN'S SOCCER COACH-PATIENT SERVICES SPECIALIST LAB - MICROBIOLO GY ORDERABLES Final Result [facility] [address] [place] [address] * GASTROINTESTINAL PATHOGEN PANEL (GPP) PCR (07/21/2025 [...] PATIENT ADVISED TO RETURN. Test Performed at: [facility] [place] [employer] [address] SAROJ FAUSTIN MD 07/21/2025 12:1 2 PM CDT 07/21/2025 8:42 PM CDT Yolanda Greer ASSISTANT MEN'S SOCCER COACH-PATIENT SERVICES SPECIALIST LAB - MICROBIOLO GY ORDERABLES Final Result [facility] [address] [place] [address] * MICROALB/CREAT RATIO URINE RANDOM PANEL (07/06/2025 [...] within a diagnostic category. Test Performed at: [facility] [employer] [employer] [address] SAROJ FAUSTIN MD 07/06/2025 12:0 7 PM CDT 07/06/2025 12:07 PM CDT Kerry [place] DO LAB - URINE CHEMISTRY ORDERA BLES Final Result [facility] [address] [place] [address] * MAMMOGRAM (06/23/2025 3:06 PM CDT) Anatomical Region Laterality Modality Other Historical Provider MD SCANNING ONLY Final Res ult * HEMOGLOBIN A1C - POINT OF CARE (AMB) [facility] (06/05/2025 9:20 AM CDT) Hemoglobin A1c POCT 5.5 % [facility] [address] [facility] BLOOD SPECIMEN / Unknown 06/05/2025 9:20 AM CDT Kerry [place] DO LAB - POINT OF CARE ORDERABL ES Final Result Performing Organization Address City/[facility] Co de Phone Number [facility] [address] [facility] [address] [facility] [place] [address], [facility] [phone] * [employer] AUTO VISUAL FIELD EXTENDED (05/25/2025 [...] (ABNORMAL) COMPREHENSIVE METABOLIC PANEL (12/23/2024 9:06 AM [facility]) BUN 9 7 - 26 mg/dL 12/23/2024 10:02 AM [facility] Creatinine 0.87 0.56 - 0.96 mg/dL 12/23/2024 10:02 AM [facility] Sodium 143 136 - 145 mmol/L 12/23/2024 10:02 AM [facility] Potassium 4.4 3.5 - 4.5 mmol/L 12/23/2024 10:02 AM [facility] Chloride 104 98 - 107 mmol/L 12/23/2024 10:02 AM [facility] CO2 31(H) 22 - 29 mmol/L 12/23/2024 10:02 AM [facility] Glucose 97 70 - 99 mg/dL 12/23/2024 10:02 AM [facility] Calcium 9.5 8.4 - 10.2 mg/dL 12/23/2024 10:02 AM [facility] Protein Total 6.7 6.0 - 8.3 g/dL 12/23/2024 10:02 AM [facility] Albumin 3.8 3.4 - 5.0 g/dL 12/23/2024 10:02 AM [facility] Bilirubin Total 0.4 0.2 - 1.2 mg/dL 12/23/2024 10:02 AM [facility] Alkaline Phosphatase 116 40 - 150 U/L 12/23/2024 10:02 AM [facility] ALT 30 5 - 55 U/L 12/23/2024 10:02 AM [facility] AST 32 5 - 34 U/L 12/23/2024 10:02 AM [facility] Anion Gap 8 6 - 16 12/23/2024 10:02 AM [facility] BUN/Creatinine Ratio 10 7 - 23 12/23/2024 10:02 AM [facility] Osmolality Calculated 295 275 - 295 mOsm/kg 12/23/2024 10:02 AM [facility] Albumin/Globulin Ratio 1.3 1.1 - 2.3 12/23/2024 10:02 AM CDT [facility] eGFR by CKD-EPI 72(L) >=90 mL/min/1.7 3 m2 12/23/2024 10:02 AM CDT [facility] Blood BLOOD SPECIMEN / Unknown Venipuncture / Unknown 12/23/2024 9:06 AM CDT 12/23/2024 9:27 AM CDT us Yuval Krueger MD LAB - CHEMISTRY ORDERABLES Fi nal Result [address] [address], [facility] [phone] * ENDOSCOPY, COLON, SCREENING (11/11/2024 9:52 AM SPOOLING MACHINE OPERATOR) Report Endoscopy POC Endoscopy Department Report [...] bowel preparation was evaluated using the BBPS ([place] Bowel Preparation Scale) with scores of: Right [...] non-mariscal portions. Procedure Code(s): --- Professional --- 07779, Colonoscopy, flexible; with removal of tumor(s), polyp(s), or other lesion(s) by snare technique 88560, 59, Colonoscopy, flexible; with biopsy, single or multiple Diagnosis Code(s): --- Professional --- Z86.010, Personal history of colonic polyps D12.2, Benign neoplasm of ascending colon D12.4, Benign neoplasm of descending colon K57.30, Diverticulosis of large intestine without perforation or abscess without bleeding CPT copyright 2021 [employer]. All rights reserved. The codes documented in this report are preliminary and upon adobe layer helper review may be revised to meet current compliance requirements. Sixto Cornell MD 11/11/2024 10:36:45 AM This report has been signed electronically. Note Initiated On: 11/11/2024 9:52 AM Number of Addenda: [address] [address] [facility] 11/11/2024 9:52 AM SPOOLING MACHINE OPERATOR Sixto Cornell MD GI PROCEDURE ORDERABLES Edited Result - Final [facility] from Last 3 Months or Most Recently Relevant to Health Maintenance Insurance [facility] MANAGED MEDICARE ADV [place] [id number] [facility] MANAGED MEDICARE ADV [employer] MANAGED MEDICARE ADV SELF PAY NO INSURANCE Member Subscriber Plan / Payer (Ef fective for All Dates) Name:Cheyanne Dawson Member ID:Not on file Relation to Subscriber:Not on file Name:CHEYANNE DAWSON Subscriber ID:Not on file (Home) Address: [address] [place] [phone] Payer ID:Not on file Group ID:Not on file Type:Self Pay Address: [place], [place] [facility] MANAGED MEDICARE ADV Advance Directives * Full Code (Latest Code Status on File) Date Activated Date Inactivated Comments 08/29/2022 4:40 PM 08/31/2022 1:59 PM * Full Code Date Activated Date Inactivated Comments 03/17/2022 3:37 PM 03/19/2022 1:47 PM Care Teams Aligning Inspector Relationship Specialty Start Date End Date Kerry Coffman DO [address] 2L DIV [place] [address] PCP - General Internal Medicine 12/15/23 Kerry Coffman DO [address] 2L DIV [place] [address] PCP - Attributed-[facility] MANSOOR TAYLOR P4P 12/10/24
--- OUTSIDE RECORDS SUMMARY | 2025-08-12 16:20 | XMS_ITS | Encounter Summary ---
Author Organization [facility] Address [address] [facility] [place] [address] Care Team Providers Care Farm Worker Name Role Phone Joan Robins MD Primary Care Provider PacificaKerry reddy DO Primary Care Provider [phone] Kerry Coffman DO Unavailable [phone] Encounter Details Date Type Department Care Team (Late st Contact Info) Description 12/18/[address] [facility] [address] [place] [address] Rissa Vo MD Social History Tobacco Use Types Packs/Day Years Used Date Smoking Tobacco: Former Smokeless Tobacco: Never Alcohol Use Standard Drinks/Week Comments Never 0 (1 standard drink = 0.6 oz pur e alcohol) Comments Unknown Sex and Gender Information Value Date Recorded Sex Assigned at Female 09/16/2024 2:41 PM MASTER CONTROL TECHNICIAN Legal Sex Female 5:56 AM MASTER CONTROL TECHNICIAN Gender Identity Female 09/16/2024 2:41 PM MASTER CONTROL TECHNICIAN Sexual Orientation Straight 09/16/2024 2: 41 PM MASTER CONTROL TECHNICIAN COVID-19 Exposure Response Date Recorded In the last month, have you been in contact with someone who was confirmed or suspected to have Coronavirus / COVID-19? No / Unsure 12/19/2021 5:58 AM MASTER CONTROL TECHNICIAN documented as of this encounter Patient Instructions * Patient Instructions* Donny Elliott - 12/18/2021 6:58 AM MASTER CONTROL TECHNICIAN Pt was bumped from 03/17/2022 DBN appt. [facility] does not schedule for these appt types. Please reschedule from the bump list. ER CONTROL TECHNICIAN documented in this encounter Plan of Treatment Upcoming Encounters Date Type Department Care Team (Late st Contact Info) Description 08/16/2025 3:00 PM MASTER CONTROL TECHNICIAN Office Visit [facility] - Allergy [address] [place] [address], [place] [phone] Papito Morales MD [address] [place] [address] 2L DIV OF ALLERGY/[place] [address] 08/30/2025 9:40 AM MASTER CONTROL TECHNICIAN Office Visit [facility] - Dermatology [address] [place] [address], [place] [phone] Partha Calhoun MD [address] [place] [address] 3L [place] [phone] 10/26/2025 1:00 PM MASTER CONTROL TECHNICIAN [facility]rology [address] [place] [phone] Moncho Salcedo, RONEL-LEAD MANUFACTURING ENGINEER [address] [place] [address] 1L [place] [phone] 11/20/2025 10:30 AM MASTER CONTROL TECHNICIAN [facility] - Internal Med [address] [place] [phone] Kerry Coffman DO [address] [place] [address] 2L DIV OF [place] [address] 11/28/2025 1:15 PM MASTER CONTROL TECHNICIAN Office Visit [facility] - Ophthalmology [address] [place] [address], [place] [phone] Percy Matute MD [address] [place] [address] DEPT [place] [phone] 11/29/2025 11:00 AM MASTER CONTROL TECHNICIAN Office Visit [facility] - GI [address] [facility], [place] [phone] Percy Yolanda, PRESSER FIRST-LEAD MANUFACTURING ENGINEER [address] [place] [phone] documented as of this encounter Visit Diagnoses Not on filedocumented in this encounter Additional Health Concerns Infection Onset Date Last Indicated Resolved Time CDIFF Under Investigation 07/20/2024 07/20/2024 4:33 AM CDT CDIFF Under Investigation 10/26/2024 11/07/2024 4:33 AM MASTER CONTROL TECHNICIAN CDIFF Under Investigation 11/07/2024 11/07/2024 5:38 PM MASTER CONTROL TECHNICIAN CDIFF Under Investigation 05/29/2025 05/29/2025 7:24 PM CDT CDIFF Under Investigation 07/25/2025 07/25/2025 6:57 PM CDT documented as of this encounter Care Teams Farm Worker Relationship Specialty Start Date End Date Joan Robins MD [address] [place] [phone] PCP - General 02/14/19 12/14/23 Kerry Coffman DO [address] [facility] 2L DIV [place] [address] PCP - General Internal Medicine 12/15/23 Kerry Coffman DO [address] [facility] 2L DIV [place] [address] PCP - Attributed-[facility] MANSOOR TAYLOR P4P 12/10/24 documented as of this encounter
--- OUTSIDE RECORDS SUMMARY | 2025-08-12 16:20 | XMS_ITS | Encounter Summary ---
Author Organization [facility] Address [address] [facility] [place] [address] Care Team Providers Care New Car Salesperson Name Role Phone Meghna Kerry FRANKS Primary Care Provider [phone] Kerry Coffman DO Unavailable [phone] Reason for Visit * Reason Onset Date Comments MEDICATION REFILL 01/10/2025 Encounter Details Date Type Department Care Team (Late st Contact Info) Description 01/10/2025 Refill [facility] - Neurology [address] [place] [phone] Moncho Salcedo APRN-CRAFT MANAGER [address] [place] [phone] MEDICATION REFILL Social History Tobacco Use Types [...] Sex Assigned at Female 09/16/2024 2:41 PM PATTERNMAKER APPRENTICE METAL Legal Sex Female 5:56 AM PATTERNMAKER APPRENTICE METAL Gender Identity Female 09/16/2024 2:41 PM PATTERNMAKER APPRENTICE METAL Sexual Orientation Straight 09/16/2024 2: 41 PM PATTERNMAKER APPRENTICE METAL documented as of this encounter Functional [...] st Contact Info) Description 08/16/2025 3:00 PM PATTERNMAKER APPRENTICE METAL Office Visit [facility] - Allergy [address] [place] [address], [place] [address] Papito Morales MD [address] [place] [address] 2L DIV OF ALLERGY/[place] [address] 08/30/2025 9:40 AM PATTERNMAKER APPRENTICE METAL Office Visit [facility] - Dermatology [address] [place] [address], [place] [address] Partha Calhoun MD [address] [place] [address] 3 [place] [address] 10/26/2025 1:00 PM PATTERNMAKER APPRENTICE METAL Office Visit [facility] - Neurology [address] [place] [address], [place] [phone] Moncho Salcedo, RAILROAD CONSTRUCTION DIRECTOR-CRAFT MANAGER [address] [place] [address] 1L [place] [phone] 11/20/2025 10:30 AM PATTERNMAKER APPRENTICE METAL Office Visit [facility] - Internal Med [address] [place] [address], [place] [phone] Kerry Coffman DO [address] [place] [address] 2L [place] [address] 11/28/2025 1:15 PM PATTERNMAKER APPRENTICE METAL Office Visit [facility] - Ophthalmology [address] [place] [address], [place] [phone] Percy Matute MD [address] [place] [address] [place] [phone] 11/29/2025 11:00 AM PATTERNMAKER APPRENTICE METAL Office Visit [facility] - GI [address] [place] [phone] Yolanda Greer, RAILROAD CONSTRUCTION DIRECTOR-CRAFT MANAGER [address] [place] [phone] documented as of this encounter Goals Goal [...] documented as of this encounter Care Teams New Car Salesperson Relationship Specialty Start Date End Date Kerry Coffman DO [address] 2L DIV OF [facility] [place] [address] PCP - General Internal Medicine 12/15/23 Kerry Coffman DO [address] [facility] [address] 2L DIV OF [facility] [place] [address] PCP - Attributed-[facility]OR TAYLOR P4P 12/10/24 documented as of this encounter
--- OUTSIDE RECORDS SUMMARY | 2025-08-12 16:20 | XMS_ITS | Encounter Summary ---
Author Organization [facility] Address [address] [facility] [address] Care Team Providers Care Reconciliation Specialist Name Role Phone MeghnaKerry Primary Care Provider [phone] Meghna Kerry FRANKS Unavailable [phone] Encounter Details Date Type Department Care Team (Late st Contact Info) Description 02/10/2024 Telephone [facility] [address] [facility], [place] [address] Hyacinth Arriaga, GUARD SERGEANT-FOOT AND ANKLE SURGEON [address] [place] [address] [place] [address] Social History Tobacco Use Types Packs/Day Years Used Date Smoking Tobacco: Never Assessed Comments No Sex and Gender Information Value Date Recorded Sex Assigned at Female 09/16/2024 2:41 PM FACILITIES MECHANICAL DESIGN ENGINEER Legal Sex Female 5:56 AM FACILITIES MECHANICAL DESIGN ENGINEER Gender Identity Female 09/16/2024 2:41 PM FACILITIES MECHANICAL DESIGN ENGINEER Sexual Orientation Straight 09/16/2024 2: 41 PM FACILITIES MECHANICAL DESIGN ENGINEER documented as of this encounter [...] Assessment Author No 03/24/2022 6:35 PM CDT bIeth Lopez, SHADIA * Does person have difficulty [...] st Contact Info) Description 08/16/2025 3:00 PM FACILITIES MECHANICAL DESIGN ENGINEER Office Visit [facility] - Allergy [address] [place] [address] [place] [phone] Papito Morales MD [address] [place] [address] 2L DIV OF ALLERGY/[place] [address] 08/30/2025 9:40 AM FACILITIES MECHANICAL DESIGN ENGINEER Office Visit [facility] - Dermatology [address] [place] [address], [place] [address] Partha Calhoun MD [address] [place] [address] 3L [place] [phone] 10/26/2025 1:00 PM FACILITIES MECHANICAL DESIGN ENGINEER Office Visit [facility] Neurology [address] [place] [address], [place] [phone] Moncho Salcedo, GUARD SERGEANT-FOOT AND ANKLE SURGEON [address] [place] [address] 1L [place] [phone] 11/20/2025 10:30 AM FACILITIES MECHANICAL DESIGN ENGINEER Office Visit [facility] - Internal Med [address] [place] [address] [place] [phone] Kerry Coffman DO [address] [place] [address] 2L DIV [place] [address] 11/28/2025 1:15 PM FACILITIES MECHANICAL DESIGN ENGINEER Office Visit [facility] - Ophthalmology [address] [place] [address] [place] [phone] Percy Matute MD [address] [place] [address] [place] [address] 11/29/2025 11:00 AM FACILITIES MECHANICAL DESIGN ENGINEER Office Visit [facility] - GI [address] [place] [address] [place] [phone] Yolanda Greer, GUARD SERGEANT-FOOT AND ANKLE SURGEON [address] [place] [phone] documented as of this encounter Visit Diagnoses Not on filedocumented in this encounter Additional Health Concerns Infection Onset Date Last Indicated Resolved Time CDIFF Under Investigation 07/20/2024 07/20/2024 4:33 AM CDT CDIFF Under Investigation 10/26/2024 11/07/2024 4:33 AM FACILITIES MECHANICAL DESIGN ENGINEER CDIFF Under Investigation 11/07/2024 11/07/2024 5:38 PM FACILITIES MECHANICAL DESIGN ENGINEER CDIFF Under Investigation 05/29/2025 05/29/2025 7:24 PM CDT CDIFF Under Investigation 07/25/2025 07/25/2025 6:57 PM CDT documented as of this encounter Care Teams Reconciliation Specialist Relationship Specialty Start Date End Date Kerry Coffman DO [address] 2L DIV [place] [address] PCP - General Internal Medicine 12/15/23 Kerry Coffman DO [address] 2L DIV OF [facility] [place] [address] PCP - Attributed-[facility] MAN[facility]OR TAYLOR P4P 12/10/24 documented as of this encounter
--- OUTSIDE RECORDS SUMMARY | 2025-08-12 16:20 | XMS_ITS | Clinical Summary ---
Author Organization [facility] Address [address] [place] [address] Care Team Providers Care Heavy Equipment Service Manager Name Role Phone Kerry Coffman Primary [...] 1 tablet (2 mg total) by mouth bookstore manager before breakfast 07/25/20 24 Active azelastine (ASTELIN) [...] Team Description 07/19/2025 10:00 AM CDT Infusion [facility] [address] [place] [address] Rheumatoid arthritis with negative rheumatoid factor, involving unspecified site (HCC) (Primary Dx) 07/05/2025 Telephone [facility] Medicine Rheumatology [address] [facility] 2nd Floor [address] [place] [address] Collin Donahue 06/28/2025 Documentation [facility] Medicine Rheumatology [address] [place] [address] Floor [address] [place] [address] Collin Donahue Eye Exam (05-25-25 [facility] eye care ok for plaquenil) 06/21/2025 1:30 PM CDT Infusion [facility] [address] [place] [phone] Rheumatoid arthritis with negative rheumatoid factor, involving unspecified site (HCC) (Primary Dx) 06/19/2025 Orders Only [facility] [address] [place] [address] Brittni Pena RN 05/24/2025 Telephone [facility] [address] [place] [phone] Maria Alejandra Figueroa césar 05/24/2025 Results Follow-Up [facility] [address] [place] [address] Floor [address] [place] [address] Collin Donahue Erythrocyte sedimentation rate, CRP (acute phase), Comprehensive metabolic panel, Additional followed-up results: 3 05/23/2025 2:30 PM CDT Lab [facility] Medicine [facility] [address] [place] [address] [address] [place] [address] Rheumatoid arthritis with negative rheumatoid factor, involving unspecified site (HCC); High risk medication use 05/23/2025 2:00 PM CDT Office Visit [facility] Medicine Rheumatology [address] [place] [address] Marialuisa Franklin NP Rheumatoid arthritis with negative [...] on file Legal Sex Female 10:45 PM BOAT FUELER Gender Identity Not on file Sexual Orientation [...] NP LAB BLOOD ORDERABLES Final Result [facility] [address] [facility] Department [place] [address] * Differential, auto (05/23/2025 3:01 PM CDT) Neutrophil abs 2.57 1.50 - 6.50 K/cumm Imm gran abs 0.01 0.00 - 0.10 K/cumm [facility] Lymphocyte abs 1.32 0.80 - 3.30 K/cumm [facility] Monocyte abs 0.62 0.20 - 0.80 K/cumm [facility] Eosinophil abs 0.09 0.00 - 0.50 K/cumm [facility] Basophil abs 0.05 0.00 - 0.10 K/cumm [facility] Neutrophil pct 55.2 % [facility] Comment: Interpretive Data Percent cell count reference ranges are not reported, since discordance with absolute values may lead to misinterpretation of CBC data. Current Interpretive Data was last revised on 2018. Imm gran pct 0.2 % [facility] Comment: Interpretive Data Percent cell count reference ranges are not reported, since discordance with absolute values may lead to misinterpretation of CBC data. Current Interpretive Data was last revised on 2018. Lymphocyte pct 28.3 % [facility] Comment: Interpretive Data Percent cell count reference ranges are not reported, since discordance with absolute values may lead to misinterpretation of CBC data. Current Interpretive Data was last revised on 2018. Monocyte pct 13.3 % [facility] Comment: Interpretive Data Percent cell count reference ranges are not reported, since discordance with absolute values may lead to misinterpretation of CBC data. Current Interpretive Data was last revised on 2018. Eosinophil pct 1.9 % [facility] Comment: Interpretive Data Percent cell count reference ranges are not reported, since discordance with absolute values may lead to misinterpretation of CBC data. Current Interpretive Data was last revised on 2018. Basophil pct 1.1 % [facility] Comment: Interpretive Data Percent cell count reference ranges are not reported, since discordance with absolute values may lead to misinterpretation of CBC data. Current Interpretive Data was last revised on 2018. Blood 05/23/2025 3:01 PM CDT 05/23/2025 4:00 PM CDT Marialuisa Franklin SUPERVISOR FINISHING ROOM LAB BLOOD ORDERABLES Final Result [facility] [place] [address] * CBC with auto differential (05/23/2025 3:01 PM CDT) WBC 4.66 3.80 - 9.90 K/cumm Hgb 12.6 11.9 - 15.5 g/dL [facility] Hct 38.2 35.6 - 45.5 % [facility] Plt 244 150 - 400 K/cumm [facility] MPV 10.2 9.1 - 12.3 fL [facility] RBC 3.99 3.90 - 5.20 M/cumm [facility] MCV 95.7 81.3 - 96.4 fL [facility] MCH 31.6 27.1 - 33.3 pg [facility] MCHC 33.0 32.3 - 35.7 g/dL [facility] RDW CV 13.1 11.1 - 14.9 % [facility] RDW SD 46.0 35.7 - 48.1 fL [facility] NRBC abs 0.00 0.00 - 0.01 K/cumm [facility] Blood 05/23/2025 3:01 PM CDT 05/23/2025 4:00 PM CDT Marialuisa Franklin SUPERVISOR FINISHING ROOM LAB BLOOD ORDERABLES Final Result Performing Organization Address City/[facility]/ZIP Co de Phone Number [facility] Department [place] [address] * Erythrocyte sedimentation rate (05/23/2025 3:01 PM CDT) [facility] Erythrocyte sedimentation rate 8 1 - 30 mm/hr Blood 05/23/2025 3:01 PM CDT 05/23/2025 4:00 PM CDT Marialuisa Franklin SUPERVISOR FINISHING ROOM LAB BLOOD ORDERABLES Final Result Performing Organization Address City/[facility] Co de Phone Number [facility] [place] [address] * CRP (acute phase) (05/23/2025 3:01 PM CDT) [facility] CRP 0.7 <=10.0 mg/L Blood 05/23/2025 3:01 PM CDT 05/23/2025 3:59 PM CDT Marialuisa Franklin SUPERVISOR FINISHING ROOM LAB BLOOD ORDERABLES Final Result Performing Organization Address [facility] [place] [address] * Comprehensive metabolic panel (05/23/2025 3:01 PM CDT) [facility] Sodium 139 135 - 145 mmol/L Potassium, pl 4.3 3.3 - 4.9 mmol/L [facility] Chloride 101 97 - 110 mmol/L [facility] CO2 30 22 - 32 mmol/L [facility] Anion gap 8 2 - 15 mmol/L [facility] BUN 8 6 - 25 mg/dL [facility] Creatinine 0.95 0.60 - 1.10 mg/dL [facility] Glucose 95 70 - 199 mg/dL [facility] Comment: Interpretive Data Fasting glucose >/= [...] AST 19 10 - 45 Units/L [facility] Blood 05/23/2025 3:01 PM CDT 05/23/2025 3:59 PM CDT Marialuisa Franklin SUPERVISOR FINISHING ROOM LAB BLOOD ORDERABLES Final Result [facility] Department [place] [address] * Dexa Axial Skeleton Bone Density 1 or 2 Site (03/08/2024 9:24 AM CDT) Anatomical Region Laterality Modality Body N/A Radiographic Erna ging Narrative 03/08/2024 9:48 PM CDT Patient Name: Sheri Shin Date of : 1955 Date of scan: 03/08/2024 Bone mineral density was performed on a HoloSciona Discovery Densitometer. Based on machine cross-calibration and [...] by the International Society of Clinical Densitometry. [id number] Marialuisa Franklin NP IM DXA PROCEDURES Final R esult * Hepatitis panel, acute (05/24/2020 9:45 AM CDT) Pathologist [facility] Hep A IgM Nonreactive Nonreactive [facility] Comment: Interpretive Data: If Hep A IgM Ab is reported as Equivocal, a new sample should be drawn in two weeks for testing. Current interpretive data was last revised on 19. Hep B core IgM Nonreactive Nonreactive [facility] Comment: Interpretive Data If HepB Core IgM Ab is reported as Equivocal, a new sample should be drawn in two weeks for testing. Current interpretive data was last revised on 19. Hep C Ab Nonreactive Nonreactive [facility] Comment:Antibodies to HCV no t detected. Does NOT exclude the possibility of recent exposure to HCV. HepBsAg Nonreactive Nonreactive [facility] Blood specimen (specimen) 05/24/2020 9:45 AM CDT 05/24/2020 12:08 PM CDT Marialuisa Franklin NP LAB MICROBIOLOGY - GENERAL ORDERABLES Edited Result - Final [facility] [place] [address] from Last 3 Months or Most Recently Relevant to Health Maintenance Insurance [facility]ICARE ADVANTAGE [facility] MEDICARE MEDICARE [facility] MEDICARE ADVANTAGE Care Teams Heavy Equipment Service Manager Relationship Specialty Start Date End Date Kerry Coffman DO [address] [place] [address] PCP - General Internal Medicine 04/19/24
--- OUTSIDE RECORDS SUMMARY | 2025-08-12 16:20 | XMS_ITS | Clinical Summary ---
Author Organization [facility] Address [address] [place] [address] Care Team Providers Care Dietetic Technician Name Role Phone Kerry Brown DO Primary Care Provider [phone] Encounters Date Type Department Care Team Description 06/23/2025 2:40 PM CDT - 06/23/2025 11:59 PM CDT Hospital Encounter [facility] Mammography [address] [facility] [place] [address] Kerry Brown DO Discharge Disposition: [...] 2:48 PM Narrative 06/26/2025 2:[address] [facility] [address] [place] [address] Examination: Screening bilateral mammogram Exam Date/Time: 06/23/2025 [...] Final Result from Last [address] [facility] MEDICARE Care Teams Dietetic Technician Relationship Specialty Start Date End Date Kerry Brown DO [address] OF [facility] [place] [address] PCP - General INTERNAL MEDICINE 06/23/25
--- OUTSIDE RECORDS SUMMARY | 2025-08-12 16:20 | XMS_ITS | Encounter Summary ---
Author Organization [facility] Address [address] [facility] [place] [address] Care Team Providers Care Sports Activities Foul Judge Name Role Phone MeghnaKerry Primary Care Provider [phone] MeghnaKerry Unavailable [phone] Encounter Details Date Type Department Care Team (Late st Contact Info) Description 08/02/2025 Results Follow-Up [facility] - GI [address] [facility], [facility] [place] [address] Yolanda Greer, MARKETING OPERATIONS SPECIALIST-JEWEL SUPERVISOR [address] [place] [address] Social History Tobacco Use Types [...] Sex Assigned at Female 09/16/2024 2:41 PM UMBRELLA SUPERVISOR Legal Sex Female 5:56 AM UMBRELLA SUPERVISOR Gender Identity Female 09/16/2024 2:41 PM UMBRELLA SUPERVISOR Sexual Orientation Straight 09/16/2024 2: 41 PM UMBRELLA SUPERVISOR documented as of this encounter Functional [...] st Contact Info) Description 08/16/2025 3:00 PM UMBRELLA SUPERVISOR Office Visit [facility] - Allergy [address] [place] [address], [place] [address] Papito Morales MD [address] [place] [address] 2L DIV OF ALLERGY/[place] [address] 08/30/2025 9:40 AM UMBRELLA SUPERVISOR Office Visit [facility] - Dermatology [address] [place] [address], [place] [address] Partha Calhoun MD [address] [place] [address] 3 [place] [address] 10/26/2025 1:00 PM UMBRELLA SUPERVISOR Office Visit [facility] - Neurology [address] [place] [address] [place] [address] Denisse Lisandrodary, MARKETING OPERATIONS SPECIALIST-JEWEL SUPERVISOR [address] [place] [address] 1L [place] [address] 11/20/2025 10:30 AM UMBRELLA SUPERVISOR Office Visit [facility] - Internal Med [address] [place] [address], [place] [phone] Kerry Coffman DO [address] [place] [address] 2L DIV [place] [address] 11/28/2025 1:15 PM UMBRELLA SUPERVISOR Office Visit [facility] - Ophthalmology [address] [place] [address], [place] [address] Percy Matute MD [address] [place] [address] [place] [address] 11/29/2025 11:00 AM UMBRELLA SUPERVISOR Office Visit [facility] - GI [address] [place] [phone] Yolanda Greer, MARKETING OPERATIONS SPECIALIST-JEWEL SUPERVISOR [address] [place] [phone] documented as of this encounter Goals Goal Patient Goal Type Associated Problems Recent Progress Patient-Stated? Author Medication Management General On track( 025 11:32 AM CDT) Marion Scott, RN Note: Expected end date: ongoing Interventions: Take all medications as prescribed documented as of this encounter Visit Diagnoses Not on filedocumented in this encounter Care Teams Sports Activities Foul Judge Relationship Specialty Start Date End Date Kerry Coffman DO [address] [place] [address] 2L DIV OF [facility] [place] [address] PCP - General Internal Medicine 12/15/23 Kerry Coffman DO [address] OF [facility] [address] PCP - Attributed-[facility] MANSOOR TAYLOR P4P 12/10/24 documented as of this encounter
--- OUTSIDE RECORDS SUMMARY | 2025-08-12 16:20 | XMS_ITS | Encounter Summary ---
Author Organization [facility] Address [address] [place] [address] Care Team Providers Care Coating Technician Name Role Phone Meghna Kerry Primary Care Provider [phone] MeghnaAlvertoKerry DO Unavailable [phone] Reason for Visit * Reason Onset Date Comments Refill Request 06/27/2025 Encounter Details Date Type Department Care Team (Late st Contact Info) Description 06/27/2025 Refill [facility] Ophthalmology [address] [place] [address] Percy Matute MD [address] [place] [address] [place] [address] Refill Request Social History Tobacco [...] Sex Assigned at Female 09/16/2024 2:41 PM INSULATOR HELPER Legal Sex Female 5:56 AM INSULATOR HELPER Gender Identity Female 09/16/2024 2:41 PM INSULATOR HELPER Sexual Orientation Straight 09/16/2024 2: 41 PM INSULATOR HELPER documented as of this encounter Functional [...] since her last visit. Latanoprost BID. # [phone]. documented in this encounter Plan of Treatment Upcoming Encounters Date Type Department Care Team (Late st Contact Info) Description 08/16/2025 3:00 PM INSULATOR HELPER Office Visit [facility] - Allergy [address] [place] [address], [place] [address] Papito Morales MD [address] [place] [address] OF ALLERGY/[place] [address] 08/30/2025 9:40 AM INSULATOR HELPER Office Visit [facility] - Dermatology [address] [place] [address], [place] [address] Partha Calhoun MD [address] [place] [address] 3L [place] [address] 10/26/2025 1:00 PM INSULATOR HELPER Office Visit [facility] - Neurology [address] [place] [address], [place] [phone] Moncho Salcedo, REAMING MACHINE OPERATOR-PAINT DIPPER [address] [place] [address] 1L [place] [address] 11/20/2025 10:30 AM INSULATOR HELPER [facility] [address] [place] [address], [place] [phone] Kerry Coffman DO [address] [place] [address] 2L DIV [place] [address] 11/28/2025 1:15 PM INSULATOR HELPER Office Visit [facility] - Ophthalmology [address] [place] [phone] Percy Matute MD [address] [place] [address] GL [place] [phone] 11/29/2025 11:00 AM INSULATOR HELPER Office Visit [facility] - GI [address] [place] [phone] Yolanda Greer, REAMING MACHINE OPERATOR-PAINT DIPPER [address] [place] [phone] documented as of this encounter Goals Goal [...] documented as of this encounter Care Teams Coating Technician Relationship Specialty Start Date End Date Kerry Coffman DO [address] 2L DIV OF [facility] [place] [address] PCP - General Internal Medicine 12/15/23 Kerry Coffman DO [address] 2L DIV OF [facility] [place] [address] PCP - Attributed-[facility] TAYLOR P4Mary Jane 12/10/24 documented as of this encounter
[2025-08-12 17:00] VITALS: BP 113/78; PULSE 58; RESP 16; O2SAT 100
[2025-08-12] MEDS: IBUPROFEN 600 MG TABLET PO (17:45)
[2025-08-12] MEDS: HYDROcodone/acetaminophen (*CRX) 5-325 MG TABLET 1 TAB PO (17:46)
[2025-08-12 18:09] VITALS: BP 122/58; PULSE 61; RESP 16; O2SAT 100
== END 2025-08-12 18:10 | disposition home or self-care (01) ==
PROVIDERS: Emergency Provider Emergency Medicine
DX: S00.83XA Contusion of other part of head, initial encounter (principal); S60.221A Contusion of right hand, initial encounter; G25.0 Essential tremor; E78.00 Pure hypercholesterolemia, unspecified; E11.9 Type 2 diabetes mellitus without complications; M06.9 Rheumatoid arthritis, unspecified; M19.90 Unspecified osteoarthritis, unspecified site; M81.0 Age-related osteoporosis without current pathological fracture; F41.9 Anxiety disorder, unspecified; F31.9 Bipolar disorder, unspecified; Z87.891 Personal history of nicotine dependence; Z79.899 Other long term (current) drug therapy; W01.0XXA Fall on same level from slipping, tripping and stumbling without subsequent striking against object, initial encounter
CPT/HCPCS: 70450; 70480; 72125; 73130; 99284; A9270